=== PATIENT | male | born 1950 | race Caucasian/White ===

== ENCOUNTER → 2018-03-12 09:20 | Outpatient (CLI) | payer MEDICARE, SELFPAY ==
[2018-03-12 10:42] LABS: Hematocrit 44.5 % (41-53); Hemoglobin 15.1 g/dL (13.5-17.5); Mean Corpuscular HGB Conc 33.9 % (30-36); Mean Corpuscular Hemoglobin 32.9 PG (26-34); Mean Corpuscular Volume 97.2 fL (80-100); Platelet Count 136 X10^3/uL (150-400); Red Blood Cell Count 4.58 X10^6/uL (4.5-5.9); White Blood Cell Count 4.9 X10^3/uL (4.5-11.0)
[2018-03-12 11:32] LABS: TSH w/ Reflex to FT4 1.64 uIU/mL (0.47-4.68)
[2018-03-12 12:46] LABS: Chloride 104 mmol/L (98-107); HEMOLYSIS < 15 (0-50)
[2018-03-12 12:47] LABS: Alanine Aminotransferase 36 IU/L (21-72); Albumin 4.4 g/dL (3.5-5.0); Albumin Globulin Ratio 1.6 (1.0-2.8); Alkaline Phosphatase 91 U/L (38-126); Aspartate Aminotransferase 34 IU/L (17-59); BUN Creatinine Ratio 23.8 (6-22); Bilirubin Total 0.8 mg/dL (0.2-1.3); Blood Urea Nitrogen 19 mg/dL (9-20); Calcium 9.3 mg/dL (8.4-10.2); Carbon Dioxide 27 mmol/L (22-32); Cholesterol 175 mg/dL (140-199); Estimated Glomerular Filt Rate > 60.0 mL/min (>60); Globulin 2.7 g/dL (1.7-4.1); Glucose 84 mg/dL (80-110); HDL Cholesterol 75 mg/dL (40-60); LDL Cholesterol Calculated 90 mg/dL (<100); Potassium 5.2 mmol/L (3.4-5.1); Sodium 144 mmol/L (137-145); Total Protein 7.1 g/dL (6.3-8.2); Triglycerides 51 mg/dL (35-150)
[2018-03-12 13:17] LABS: Prostate Specific Antigen Scrn 1.26 ng/mL (0.1-4.0)
== END ==
PROVIDERS: PCP Family Medicine; Visit Provider Family Medicine
DX: E78.5 Hyperlipidemia, unspecified (principal); T50.905A Adverse effect of unspecified drugs, medicaments and biological substances, initial encounter
CPT/HCPCS: 36415; 80053; 80061; 84443; 85027; G0103

== ENCOUNTER → 2018-03-25 08:33 | Outpatient (CLI) | payer MEDICARE, SELFPAY ==
--- NOTE | 2018-03-25 08:37 | DI.ECHO.S_ITS ---
[facility] +---------+ : : [address] : [address] : : : : [id number] : : : : Phone: [phone]+ Echocardiogram Report + + :Name: ASHOK COREAS Study Date: 03/25/2018 Height: 70 in : :[facility] Exam Location: [facility] Weight: 165 lb : : Gender: Male BSA: 1.9 m2 : :: 1950 Age: 67 yrs BP: 150/85 mmHg: :Reason For Study: Conduction disorder : :Ordering Physician: Dr. Cunningham : :Trudy Performed By: Lien Page : + + Interpretation Summary Left ventricular systolic function is low normal with the ejection fraction visually estimated to be 55-60%. There are no focal wall motion abnormalities. Diastolic parameters suggest probable normal left ventricular diastolic function and normal filling pressures. The right ventricle is mildly dilated and right ventricular systolic function is at the lower limits of normal. The right ventricular systolic pressure is estimated to be at least 28 mmHg based on an estimated right atrial pressure of 3 mm Hg. Both atria are severely dilated. There is mild mitral regurgitation and mild to moderate tricuspid regurgitation. There is no other significant valvular heart disease. 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 Procedure: A two-dimensional transthoracic echocardiogram with color flow and Doppler was performed. The study quality was technically adequate. There is no prior echocardiogram noted for this patient. The patient was in normal sinus rhythm during the exam. The patient was in second degree heart block during the exam. The heart rate ranged between 34-46 bpm during the study. Left Ventricle: The left ventricle is normal in size. There is normal left ventricular wall thickness. Left ventricular systolic function is low normal. The ejection fraction is estimated to be 55-60%. There are no focal wall motion abnormalities. Diastolic parameters suggest probable normal left ventricular diastolic function and normal filling pressures. Right Ventricle: The right ventricle is mildly dilated. Right ventricular systolic function is at the lower limits of normal. Atria: Both atria are severely dilated. There is no Doppler evidence for an interatrial shunt. Mitral Valve: The mitral valve leaflets appear borderline thickened, but open well. There is a flat closure plane of the the mitral valve leaflets. There is no evidence of mitral valve prolapse. There is mild mitral regurgitation. Aortic Valve: The aortic valve is trileaflet. The aortic valve opens well. There is no aortic regurgitation. Tricuspid Valve: The tricuspid valve leaflets are thin and pliable. There is mild to moderate tricuspid regurgitation. The right ventricular systolic pressure is estimated to be at least 28 mmHg based on an estimated right atrial pressure of 3 mm Hg. Pulmonic Valve: The pulmonic valve is not well seen, but is grossly normal. There is trace pulmonic regurgitation. There is no other significant valvular heart disease. Great Vessels: The aortic root is normal size. The ascending aorta is normal in size. The pulmonary artery is not well visualized, but is probably normal size. The IVC is of normal diameter and collapses greater than 50% with a sniff. This suggests a low right atrial pressure of 3 mm Hg. Pericardium/ Pleura There is no pericardial effusion. There is no pleural effusion. MMode/2D Measurements & Calculations LVIDd: 5.1 cm LVOT diam: 2.2 cm LVIDs: 3.6 cm Ao root diam: 3.6 cm FS: 30.4 % asc Aorta Diam: 3.2 cm EPSS: 0.74 cm IVSd: 0.93 cm LVPWd: 0.89 cm LV sosa. diameter/BSA (cm/m^2): 2.7 LV sys. diameter/BSA (cm/m^2): 1.9 LA A2 area: 30.3 cm2 RA long axis: 6.7 cm LA A4 area: 31.3 cm2 RA area: 30.6 cm2 LA length (vol): 6.9 cm RA vol: 118.4 ml LA vol: 116.7 ml RA : 61.6 ml/m2 LA vol index: 60.7 ml/m2 IVC diam: 1.8 cm RVD1 (basal): 5.8 cm RVD2 (mid): 4.3 cm Doppler Measurements & Calculations Ao V2 max: 120.3 cm/sec LVOT Max Alex: 108.6 cm/sec Ao V2 mean: 86.0 cm/sec LV V1 max P.7 mmHg Ao max P.8 mmHg LV V1 VTI: 23.0 cm Ao mean P.2 mmHg ALEAH(I,D): 3.2 cm2 Ao V2 VTI: 27.9 cm ALEAH(V,D): 3.5 cm2 sev ratio: 0.83 ALEAH indexed to BSA (cm^2/m^2): 1.7 MV E max alex: 89.7 cm/sec TR max alex: 251.6 cm/sec MV A max alex: 63.3 cm/sec TR max P.3 mmHg MV E/A: 1.4 PA V2 max: 71.2 cm/sec Med Peak E' Alex: 13.2 cm/sec PA V2 mean: 47.0 cm/sec E/E' med: 6.8 PA mean P.99 mmHg Lat Peak E' Alex: 15.0 cm/sec PA Accel Time: 0.11 sec E/E' lat: 6.0 E/e' average: 6.4 MV dec time: 0.14 sec Reading Physician:TODD
--- NOTE | 2018-03-27 20:42 | DI.NM.S_ITS ---
DATE OF SERVICE: 03/25/2018 ORDERING PROVIDER: Octavio Yates MD PROCEDURE PERFORMED: Exercise treadmill stress and rest myocardial perfusion imaging with gating to assess ejection fraction and regional wall motion. INDICATIONS: The patient is a 67-year-old male with an abnormal ECG with an irregular rhythm. EXERCISE TREADMILL TESTING: EXERCISE TREADMILL TESTING: The patient was able to exercise for 9 minutes 2 seconds on a standard Antonio protocol suggesting good exercise capacity with an TOMMY of -15%. He had normal heart rate response with a resting heart rate of 65 bpm that increased to a maximum of 137 bpm (89% of his predicted maximum). He had a hypertensive blood pressure response to exercise with the resting blood pressure of 180/80 increasing to a maximum of 260/80. He had no chest discomfort. His resting ECG shows sinus rhythm with Wenckebach second-degree AV block but otherwise is normal. With exercise, there are no significant ST segment abnormalities and the Wenckebach block resolves. In early recovery, he develops PVCs with return of his Wenckebach second-degree AV block followed by brief ventricular bigeminy but no other complex arrhythmias. At 7 minutes 57 seconds of exercise, at heart rate of 131 bpm, 25.6 mCi a technetium-99 Myoview was injected and the patient was imaged 15 minutes later using a gated SPECT acquisition protocol. The patient returned the following day and was reinjected with an additional 25.9 mCi of technetium-99 Myoview and was imaged 40 minutes later, again using a gated SPECT acquisition protocol. FINDINGS: 1. Raw Data: There is fair myocardial tracer uptake. The lung/heart ratio is normal at 0.34 with a normal TID ratio of 0.79. Patient was unable to lay prone to assess for any diaphragmatic attenuation. 2. Quantitative Gated SPECT: Post stress ejection fraction is estimated at 64% without any focal wall motion abnormalities. Specifically, the inferolateral wall appears to have normal contractility. The resting ejection fraction is also estimated at 64% with mildly increased left ventricular volumes with a resting end-diastolic volume of 168 mL. 3. Myocardial Perfusion Imaging: Post stress supine images show a normal myocardial perfusion except for a very subtle defect in the mid anterior wall, consistent with the chest wall attenuation, and a very small, subtle defect in the mid-distal inferolateral wall. Both defects remain present on the resting images although the inferolateral defect is slightly less prominent, yet likely reflects diaphragmatic attenuation given its location and absence of wall motion abnormality CONCLUSION: 1. Probable normal myocardial perfusion study for ischemia. 2. Subtle fixed mid anteroseptal defect, likely reflecting chest wall attenuation, and a small subtle partially reversible mid inferolateral defect that likely reflects diaphragmatic attenuation but a very small volume of ischemia cannot be entirely excluded. 3. Normal left ventricular systolic function without focal wall motion abnormality although with moderately increased left ventricular volumes. 4. Good reduced exercise capacity without angina or ECG evidence of ischemia. Wenckebach 2nd degree AV block was present at rest but resolved with stress and returned in recovery with associated frequent PVCs, at times in a bigeminal pattern but no complex ventricular ectopy. The patient had a notable hypertensive to exercise. Toby Leonard - ALTHEA/kedar/ doc#: [id number]/job#: [id number] dd: 03/27/2018 12:28:00 dt: 03/27/2018 20:21:00 DICTATING MD/COPIES TO: Andrew Piedra MD; Octavio Yates MD COPIES MNE: VIK RYAN
== END ==
PROVIDERS: PCP Family Medicine; Visit Provider Family Medicine
DX: I08.1 Rheumatic disorders of both mitral and tricuspid valves (principal); I45.9 Conduction disorder, unspecified
CPT/HCPCS: 78452; 93016; 93017; 93018; 93306; A9502

== ENCOUNTER → 2018-03-26 11:51 | Outpatient (CLI) | payer MEDICARE, SELFPAY ==
--- NOTE | 2018-03-25 09:30 | PM.TREADMILL ---
Cardiac Stress Test Report Referral & Results Date Patient Seen: 03/25/18 Requesting provider: Octavio Yates Indication: Heart block Rest ECG: Resting ECG appears to show second-degree AV block with a variable AL interval , thus most likely Wenckebach block Procedure Note: Today following both written and verbal informed consent the patient was exercised according to a standard Antonio protocol patient went for a total of 9 min to seconds achieving a maximum heart rate of 137 maximum systolic blood pressure of 260. This is approximately 10.1 METS. Exercise was terminated at this point because of targets were met. Patient was also given Cardiolite through a previously started Hep-Lock IV by the nuclear medical technologist approximately 1 minute prior to the cessation of exercise. There are no ST segment changes Normal heart rate response somewhat hypertensive blood pressure response at peak Functional aerobic impairment rated-15% on the active scale so 115% of normal Frequent PVCs were noted as patient's heart rate was declining. Patient also had some irregularity with his AV conduction even at peak heart rates Impression: Probable second-degree AV block type 1 or Wenckebach block noted on resting ECG. There is a variable AL interval which makes that the most likely but does not follow the more traditional pattern. Does not appear to have third-degree heart block. No evidence of ischemia based on usual ECG criteria. Patient with excellent exercise capacity Perfusion imaging to be reported separately Please note: Actual ECG tracings can be found in the PACS system.
--- NOTE | 2018-03-25 09:33 | P.PCN_ITS ---
Cardiac Stress Test Report Referral & Results Date Patient Seen: 03/25/18 Requesting provider: Octavio Yates Indication: Heart block Rest ECG: Resting ECG appears to show second-degree AV block with a variable RI interval , thus most likely Wenckebach block Procedure Note: Today following both written and verbal informed consent the patient was exercised according to a standard Antonio protocol patient went for a total of 9 min to seconds achieving a maximum heart rate of 137 maximum systolic blood pressure of 260. This is approximately 10.1 METS. Exercise was terminated at this point because of targets were met. Patient was also given Cardiolite through a previously started Hep-Lock IV by the plastic technician approximately 1 minute prior to the cessation of exercise. There are no ST segment changes Normal heart rate response somewhat hypertensive blood pressure response at peak Functional aerobic impairment rated-15% on the active scale so 115% of normal Frequent PVCs were noted as patient's heart rate was declining. Patient also had some irregularity with his AV conduction even at peak heart rates Impression: Probable second-degree AV block type 1 or Wenckebach block noted on resting ECG. There is a variable RI interval which makes that the most likely but does not follow the more traditional pattern. Does not appear to have third -degree heart block. No evidence of ischemia based on usual ECG criteria. Patient with excellent exercise capacity Perfusion imaging to be reported separately Please note: Actual ECG tracings can be found in the PACS system.
--- NOTE | 2018-04-17 15:41 | PM.CARDMON.1 ---
Gameplay Programmer Report Referral & Results Date Patient Seen: 03/26/18 Indication: Conduction disorder Duration of monitoring (days): 7 Diary information: No patient diary events or triggered events were available Data: Minimum heart rate identified was 29 beats per minute at 05:43 on 03/29/2018 during a run of what appears to be 3rd degree heart block, or potentially second-degree heart block type 2. Minimum sinus heart rate was 64 beats per minute at 17:34 on 04/01/2018 Maximum overall heart rate was 120 beats per minute at 19:30 on 03/30/2018 No PACs and rare PVCs were identified Impression: Evidence of high-degree AV block potentially third-degree heart block identified as above. Patient's primary care provider and ordering provider Dr. Yates is aware of these findings and has referred patient to Cardiology. Please see his notes for details.
--- NOTE | 2018-04-17 15:45 | P.HOLT.S_ITS ---
Semiconductor Packages Leak Tester Report Referral & Results Date Patient Seen: 03/26/18 Indication: Conduction disorder Duration of monitoring (days): 7 Diary information: No patient diary events or triggered events were available Data: Minimum heart rate identified was 29 beats per minute at 05:43 on 2017 during a run of what appears to be 3rd degree heart block, or potentially second-degree heart block type 2. Minimum sinus heart rate was 64 beats per minute at 17:34 on 04/01/2018 Maximum overall heart rate was 120 beats per minute at 19:30 on 03/30/2018 No PACs and rare PVCs were identified Impression: Evidence of high-degree AV block potentially third-degree heart block identified as above. Patient's primary care provider and ordering provider Dr. Yates is aware of these findings and has referred patient to Cardiology. Please see his notes for details.
== END ==
PROVIDERS: PCP Family Medicine; Visit Provider Family Medicine
DX: I45.9 Conduction disorder, unspecified (principal)
CPT/HCPCS: 0296T; 0298T

== ENCOUNTER → 2020-06-08 16:26 | Outpatient (CLI) | payer MEDICARE, SELFPAY ==
[2020-06-08] MEDS: COVID-19 VACC #1, MRNA(MOD) 100 MCG/0.5 ML VIAL IM (16:34)
== END ==
PROVIDERS: PCP Family Medicine; Visit Provider Internal Medicine
DX: Z23 Encounter for immunization (principal)
CPT/HCPCS: 0011A; 91301

== ENCOUNTER → 2020-07-05 16:09 | Outpatient (CLI) | payer MEDICARE, SELFPAY ==
[2020-07-05] MEDS: COVID-19 VACC #2, MRNA(MOD) 100 MCG/0.5 ML VIAL IM (16:16)
== END ==
PROVIDERS: PCP Family Medicine; Visit Provider Internal Medicine
DX: Z23 Encounter for immunization (principal)
CPT/HCPCS: 0012A; 91301

== ENCOUNTER → 2021-02-05 08:42 | Outpatient (CLI) | payer MEDICARE, SELFPAY ==
[2021-02-05 14:06] LABS: COVID19 -Nasal RAPID Negative (Negative)
== END ==
PROVIDERS: PCP Family Medicine; Visit Provider Nurse Practitioner Family
DX: Z20.822 Contact with and (suspected) exposure to COVID-19 (principal); Z01.812 Encounter for preprocedural laboratory examination
CPT/HCPCS: 87635; C9803

== ENCOUNTER 2021-02-06 06:33 | Day surgery (SDC) | payer MEDICARE, SELFPAY ==
[2021-02-06] MEDS: PROPARACAINE 0.5% OPHTH SOL 2 DROPS EYE-OP (06:56)
[2021-02-06] MEDS: CATARACT EYE COMPOUND (10 DROPS/SYRINGE) 3 DROPS EYE-OP (07:03)
[2021-02-06 07:04] VITALS: BP 177/98; PULSE 64; RESP 20; TEMP 36.5; O2SAT 97; BMI 22.9
--- NOTE | 2021-02-06 07:29 | PM.PREOP ---
Pre-operative Note Interval Note History & Physical reviewed/Exam performed by Physician: Yes Changes to H&P: No
--- NOTE | 2021-02-06 07:30 | PM.OP.1 ---
Operative Date/Time/Diagnoses Pre-op diagnosis: Nuclear Cataract Left eye Post-op diagnosis: same Procedure & Clinicians Same procedure as scheduled: Yes Surgeon: Refugio Carter Anesthesia Type: MAC +/- and Sedation Operative Notes Procedure in detail: Patient brought to the operating suite. He was positioned in trendelenberg because of ankylosing spondylitis neck position. Tetracaine drops placed in the left eye. Marking instrument was used to krystian the vertical and horizontal meridians. Patient was prepped and draped in sterile manner. Wire lid speculum was placed in the eye. Marking instrument was used to krystian the 150 degree meridian. Betadine drops were placed on the eye. This was irrigated. Lidocaine jelly was placed on the eye. A paracentesis port was created with a side-port blade. 0.1 mL 1% preservative free lidocaine was injected into the anterior chamber. The anterior chamber was deepened with viscoelastic. 2.6 mm keratome was used to create a temporal clear corneal incision. Cystotome and Utrata forceps were used to create continuous tear capsulorrhexis. Balanced salt solution was used to hydro dissect the nucleus. The phacoemulsification handpiece was inserted and the nucleus was removed using the stop and chop technique. The irrigation aspiration handpiece was inserted and the remaining cortex was removed. Anterior chamber was deepened with viscoelastic. An Matos [id number] intraocular lens with a power of 19.5 was injected into the capsular bag. Irrigation aspiration handpiece was inserted and the remaining viscoelastic was removed. The lens was rotated to the 150 degree meridian. Incision was hydrated with balanced salt solution and found to be leak free with pressure with Weck-Guadalupe sponges. 0.1 mL Vigamox injected anterior chamber. 0.3 mL Kenalog 10 mg was injected subconjunctivally. Lid speculum was removed. The patient left the operating room in excellent condition. Complications: none Post-operative Condition: stable Disposition: same day surgery
[2021-02-06] MEDS: BALANCED SALT IRRIG SOLN NO.2 500 ML, EPINEPHrine 1 MG IRR (07:51)
[2021-02-06] MEDS: LIDOCAINE 2% (GLYDO) 6 ML GEL TOP (07:51)
[2021-02-06] MEDS: TRIAMCINOLONE 50 MG/5 ML VIAL INJ (07:52)
[2021-02-06] MEDS: PHENYLEPHRINE/LIDOCAINE VIAL (OR) 0.2 ML EYE-OP (07:54)
[2021-02-06] MEDS: MOXIFLOXACIN INJ 4 MG/0.8 ML VIAL 0.5 MG EYE-OP (07:55)
[2021-02-06] MEDS: TETRACAINE 0.5% OPHTH DROPS 4 ML 2 DROPS EYE-OP (07:56)
[2021-02-06] MEDS: HYALURONATE SODIUM 30 MG-10 MG/ML SYRINGES 1 BOX INTRAOCULA (07:56)
[2021-02-06 08:10] VITALS: BP 142/84; PULSE 61; RESP 16; TEMP 36.6; O2SAT 98
== END 2021-02-06 08:24 | disposition home or self-care (01) ==
PROVIDERS: PCP Family Medicine; Referring Provider Ophthalmology; Visit Provider Ophthalmology
PROC: (CPT 66984; principal; 2021-02-06 07:45)
DX: H25.12 Age-related nuclear cataract, left eye (principal); Z95.0 Presence of cardiac pacemaker
CPT/HCPCS: 66984; J0171; J2250; J3301; V2787

== ENCOUNTER → 2021-02-19 10:11 | Outpatient (CLI) | payer MEDICARE, SELFPAY ==
[2021-02-19 12:03] LABS: COVID19 -Nasal RAPID Negative (Negative)
== END ==
PROVIDERS: PCP Family Medicine; Visit Provider Nurse Practitioner Family
DX: Z20.822 Contact with and (suspected) exposure to COVID-19 (principal); Z01.812 Encounter for preprocedural laboratory examination
CPT/HCPCS: 87635; C9803

== ENCOUNTER 2021-02-20 07:35 | Day surgery (SDC) | payer MEDICARE, SELFPAY ==
[2021-02-20] MEDS: PROPARACAINE 0.5% OPHTH SOL 2 DROPS EYE-OP (08:10)
[2021-02-20 08:12] VITALS: BP 174/82; PULSE 61; RESP 98; TEMP 36.3; BMI 22.3
[2021-02-20] MEDS: CATARACT EYE COMPOUND (10 DROPS/SYRINGE) 3 DROPS EYE-OP (08:18)
--- NOTE | 2021-02-20 09:05 | PM.PREOP ---
Pre-operative Note Interval Note History & Physical reviewed/Exam performed by Physician: Yes Changes to H&P: No
--- NOTE | 2021-02-20 09:06 | PM.OP.1 ---
Operative Date/Time/Diagnoses Pre-op diagnosis: Nuclear cataract right eye Procedure & Clinicians Procedure: Cataract Surgery Same procedure as scheduled: Yes Surgeon: Refugio Carter Anesthesia Type: MAC +/- and Sedation Operative Notes Procedure in detail: Patient brought to the operating suite. Tetracaine drops placed in the right eye. The marking instrument was used to krystian the vertical and horizontal meridians. Patient was prepped and draped in sterile manner. Wire lid speculum was placed in the eye. The marking instrument was used to krystian the 40 degree meridian. Betadine drops were placed on the eye. This was irrigated. Lidocaine jelly was placed on the eye. A paracentesis port was created with a side-port blade. 0.1 mL 1% preservative free lidocaine was injected into the anterior chamber. The anterior chamber was deepened with viscoelastic. 2.6 mm keratome was used to create a temporal clear corneal incision. Cystotome and Utrata forceps were used to create continuous tear capsulorrhexis. Balanced salt solution was used to hydro dissect the nucleus. The phacoemulsification handpiece was inserted and the nucleus was removed using the stop and chop technique. The irrigation aspiration handpiece was inserted and the remaining cortex was removed. Anterior chamber was deepened with viscoelastic. An Matos [id number] intraocular lens with a power of 20.0 was injected into the capsular bag. Irrigation aspiration handpiece was inserted and the remaining viscoelastic was removed. The lens was rotated to the 40. Incision was hydrated with balanced salt solution and found to be leak free with pressure with Weck-Guadalupe sponges. 0.1 mL Vigamox injected anterior chamber. 0.3 mL Kenalog 10 mg was injected subconjunctivally. Lid speculum was removed. The patient left the operating room in excellent condition. Complications: none Post-operative Condition: stable Disposition: same day surgery
[2021-02-20] MEDS: HYALURONATE SODIUM 30 MG-10 MG/ML SYRINGES 1 BOX INTRAOCULA (09:25)
[2021-02-20] MEDS: MOXIFLOXACIN INJ 4 MG/0.8 ML VIAL 0.5 MG EYE-OP (09:25)
[2021-02-20] MEDS: LIDOCAINE 2% (GLYDO) 6 ML GEL TOP (09:25)
[2021-02-20] MEDS: PHENYLEPHRINE/LIDOCAINE VIAL (OR) 0.2 ML EYE-OP (09:25)
[2021-02-20] MEDS: TETRACAINE 0.5% OPHTH DROPS 4 ML 2 DROPS EYE-OP (09:26)
[2021-02-20] MEDS: TRIAMCINOLONE 50 MG/5 ML VIAL INJ (09:26)
[2021-02-20] MEDS: BALANCED SALT IRRIG SOLN NO.2 500 ML, EPINEPHrine 1 MG IRR (09:26)
[2021-02-20 09:40] VITALS: BP 148/89; PULSE 59; RESP 16; TEMP 36.6; O2SAT 100
== END 2021-02-20 10:05 | disposition home or self-care (01) ==
PROVIDERS: PCP Family Medicine; Referring Provider Ophthalmology; Visit Provider Ophthalmology
PROC: (CPT 66984; principal; 2021-02-20 09:15)
DX: H25.11 Age-related nuclear cataract, right eye (principal); Z95.0 Presence of cardiac pacemaker
CPT/HCPCS: 66984; J0171; J2250; J3301; V2787

== ENCOUNTER 2021-12-17 14:21 | Emergency (ER) | payer MEDICARE, SELFPAY ==
[2021-12-17] VITALS (11 sets, daily range): BP systolic 148–167; BP diastolic 70–76; PULSE 66–81; RESP 22–30; TEMP 36.5; O2SAT 99–100; BMI 23.0
[2021-12-17 15:00] LABS: Add Manual Diff / Slide Review NO; Alanine Aminotransferase 24 IU/L (<50); Albumin 4.3 g/dL (3.5-5.0); Albumin Globulin Ratio 1.4 (1.0-2.8); Alkaline Phosphatase 85 U/L (38-126); Aspartate Aminotransferase 47 IU/L (17-59); BUN Creatinine Ratio 35.2 (6-22); Basophils Absolute Auto 0 /uL (0-100); Basophils Percent Auto 0.1 % (0-2); Bilirubin Total 1.2 mg/dL (0.2-1.3); Blood Urea Nitrogen 43 mg/dL (9-20); Calcium 9.4 mg/dL (8.4-10.2); Carbon Dioxide 26 mmol/L (22-32); Chloride 100 mmol/L (98-107); Eosinophils Absolute Auto 0 /uL (0-450); Estimated Glomerular Filt Rate > 60 mL/min (>60); Glucose 113 mg/dL (80-110); HEMOLYSIS < 15 (0-50); Hematocrit 38.6 % (41-53); Hemoglobin 13.4 g/dL (13.5-17.5); Lipase 70 U/L (23-300); Lymphocytes Absolute Auto 700 /uL (1100-4500); Lymphocytes Percent Auto 6.5 % (25-40); Magnesium 1.9 mg/dL (1.6-2.3); Mean Corpuscular HGB Conc 34.8 % (30-36); Mean Corpuscular Hemoglobin 32.6 PG (26-34); Mean Corpuscular Volume 93.8 fL (80-100); Monocytes Absolute Auto 800 /uL (0-900); Monocytes Percent Auto 7.4 % (3-14); Neutrophils Absolute Auto 9800 /uL (1500-7000); Platelet Count 139 X10^3/uL (150-400); Potassium 4.1 mmol/L (3.4-5.1); Red Blood Cell Count 4.11 X10^6/uL (4.5-5.9); Red Cell Distribution Width 12.9 % (11.6-14.8); Sodium 137 mmol/L (137-145); Total Protein 7.3 g/dL (6.3-8.2); White Blood Cell Count 11.4 X10^3/uL (4.5-11.0)
[2021-12-17] MEDS: SODIUM CHLORIDE 0.9% 1,000 ML 1000 ML IV ×2 (17:13→17:45)
[2021-12-17 17:23] LABS: Appearance Urine UA CLEAR; Bilirubin Urine UA NEGATIVE (NEGATIVE); Color Urine UA YELLOW; Glucose Urine UA NEGATIVE (Negative); Ketones Urine UA TRACE (NEGATIVE); Leukocyte Esterase Urine UA NEGATIVE (NEGATIVE); Nitrite Urine UA NEGATIVE (Negative); Occult Blood Urine UA TRACE-LYSED (Negative); Protein Urine UA TRACE (Negative); Specific Gravity Urine UA 1.025 (1.000-1.035); Urobilinogen Urine UA 0.2 E.U./dL (0.2)
--- NOTE | 2021-12-17 17:26 | ED_ITS ---
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 Patient states that he has a history of some chronic back pain states that yesterday he went for pretty significant height which she has not done so far this year and started having increasing pain particularly on the drive back home which was quite bumpy but no falls or other trauma appreciated by the patient and had worsening pain overnight with increasing pain and numbness down his left leg and presents today. Patient states he has not urinated in 12-24 hours, he does not have the sensation that he needs to urinate. No known fecal incontinence. No fevers or chills. No chest pain shortness of breath. Patient denies any nausea or vomiting. He has never had weakness like this in the past. He denies back surgeries. He states he is never been on any rheumatologic medications for his ankylosing spondylitis and only takes ibuprofen for that. On carvedilol for his hypertension. Has aspirin in his EMR but states no anticoagulants. Patient denies other surgeries besides pacemaker and denies any cardiac stents or other cardiac interventions. No known drug allergies. Former tobacco user, occasional alcohol, no illicit. Related Data Home Medications Medication Instructions Recorded Confirmed aspirin 325 mg tablet 325 mg PO DAILY PRN Pain (Scale 01/26/19 02/20/21 Score 1-3) carvedilol 6.5 mg PO BID 01/26/19 Allergies Allergy/AdvReac Type Severity Reaction Status Date / Time No Known Drug Allergies Allergy Verified 02/20/21 08:07 Review of Systems Review of Systems ROS Unobtainable: All systems reviewed & are unremarkable except as noted in HPI and below Patient History Medical History Ankylosing spondylitis (~1975) Essential hypertension History of uveitis Presence of cardiac pacemaker Seborrheic keratosis Skin cancer Surgical History Anesthesia Basal cell carcinoma Family History Brother Age: 62 Overweight Father No problems noted. Grandfather No problems noted. Mother No problems noted. Grandfather No problems noted. Sister No problems noted. Social History marital status: household members: spouse Smoking Status: Former smoker alcohol intake: current substance use type: does not use Smoking Status: Former smoker alcohol intake frequency: holidays/special occasions only Substance Use Type: does not use Exam Narrative Exam Narrative: GENERAL: Alert and oriented x three, male in moderate distress. HEENT: Head normocephalic, atraumatic, EOMI, pupils reactive, face symmetric, moist mucous membranes NECK: Supple, full range of motion CARDIOVASCULAR: Bradycardic but Regular rate and rhythm without murmurs, rubs or gallops. RESPIRATORY: Breath sounds equal bilaterally, no wheezes rales or rhonchi. ABDOMEN: Soft, nontender. Normoactive bowel sounds all 4 quadrants. No guarding or rebound, rigidity, no mass : No CVA tenderness BACK: No cervical, thoracic or lumbar vertebral point tenderness. Patient has significantly decreased range of motion of bilateral lower extremities, patient is not able to dorsiflex or plantar flex and has really no movement of his lower extremities.. Patient's gait is a unable to be tested. Rectal exam is decreas ed tone with no sensation on rectal exam. Patient does have saddle anesthesia, and did not feel Delgado catheter being placed. Patient has sensation to light touch on the right in his lower extremity but not on the left, on examination patient is sensation creases to just above the umbilicus has decreased sensation proximally 1 dermatomal higher on the left than the right. EXTREMITIES: no clubbing or edema. Neurovascularly intact. Cap refill less than 2 seconds bilateral lower extremities. NEUROLOGICAL: Cranial nerves II through XII grossly intact. Moving all extremities SKIN: Warm, dry, no petechiae, no rashes or lesions. Initial Vital Signs Initial Vital Signs: Vital Signs Temperature 97.7 F 12/17/21 14:23 Pulse Rate 69 12/17/21 14:23 Respiratory Rate 24 12/17/21 14:23 Blood Pressure 148/70 H 12/17/21 14:23 Pulse Oximetry 99 12/17/21 14:23 Oxygen Delivery Method 12/17/21 14:23 Course Orders Ordered: ED Orders 12/17/21 14:40 Complete Blood Count AUTO DIFF Stat Comprehensive Metabolic Panel Stat Lipase Stat MAG [Magnesium] Stat 12/17/21 14:43 CRP [C-Reactive Protein Quant] Stat ESR [Erythrocyte Sedimentation Rate] Stat PTT [Partial Thromboplastin Time] Stat Prothrombin Time INR Stat 12/17/21 16:51 EKG-12 Lead Stat 12/17/21 16:55 Urinalysis and Microscopic Stat 12/17/21 17:28 CT lumbar spine w con Stat 12/17/21 18:25 COVID19 -Nasal RAPID/Pre-Proc Stat 12/17/21 18:44 CT thoracic spine wo con Stat Discontinued Medications Dexamethasone (Dexamethasone 10 Mg/Ml Vial) 10 mg IV NOW ONE Stop: 12/17/21 18:07 Last Admin: 12/17/21 18:25 Dose: 10 mg Documented By: TED Hydromorphone HCl (Hydromorphone 1 Mg Inj) 1 mg IV NOW ONE Stop: 12/17/21 17:59 Last Admin: 12/17/21 18:25 Dose: 1 mg Documented By: ADK Hydromorphone HCl (Hydromorphone 1 Mg Inj) 1 mg IV Q1H PRN PRN Reason: pain Sodium Chloride (Normal Saline 0.9%) 1,000 mls @ 1,000 mls/hr IV BOLUS ONE Stop: 12/17/21 18:09 Last Infusion: 12/17/21 17:35 Dose: 0 mls/hr Documented By: Admin: 12/17/21 17:13 Dose: 1,000 mls/hr Documented By: CTS Sodium Chloride (Normal Saline 0.9%) 1,000 mls @ 1,000 mls/hr IV BOLUS ONE Stop: 12/17/21 18:44 Last Infusion: 12/17/21 19:00 Dose: 0 mls/hr Documented By: Admin: 12/17/21 17:45 Dose: 1,000 mls/hr Documented By: CTS Morphine Sulfate (Morphine 4 Mg/Ml Inj) 4 mg IV NOW ONE Stop: 12/17/21 17:26 Last Admin: 12/17/21 17:35 Dose: 4 mg Documented By: CTS Consultations Consultation #1: Dr. Gilbert, local orthopedic surgery call to see if Dr. Salter our local spinal surgeon is available. [place] is [place] out of the [place]. Consultation #2: Dr. Velasquez at [facility]. Accepts for transfer, spinal surgery Dr. Reddy has reviewed initial images, asked if we have capability for myelogram which we do not. They accept for ED to ED transfer. Vital Signs Vital signs: Vital Signs - 8 hr 12/17/21 14:23 12/17/21 16:28 12/17/21 16:31 Temperature 97.7 F Pulse Rate 69 68 Respiratory Rate 24 22 Blood Pressure 148/70 H 149/75 H Pulse Oximetry 99 100 Oxygen Delivery Method Room Air 12/17/21 16:47 12/17/21 16:47 12/17/21 17:00 Temperature Pulse Rate 66 Respiratory Rate 28 H Blood Pressure 167/75 H 159/76 H Pulse Oximetry 100 Oxygen Delivery Method 12/17/21 17:00 12/17/21 17:30 12/17/21 18:00 Temperature Pulse Rate 67 73 81 Respiratory Rate 25 H 30 H Blood Pressure Pulse Oximetry 100 100 100 Oxygen Delivery Method 12/17/21 18:06 12/17/21 18:06 12/17/21 18:30 Temperature Pulse Rate 76 79 Respiratory Rate Blood Pressure 157/72 H Pulse Oximetry 99 100 Oxygen Delivery Method 12/17/21 19:10 12/17/21 19:15 12/17/21 19:15 Temperature Pulse Rate 74 72 Respiratory Rate Blood Pressure 157/70 H Pulse Oximetry 99 Oxygen Delivery Method MDM - Back Pain/Injury Lab Data Result diagrams: 12/17/21 14:40 12/17/21 14:40 Labs: Lab Results 12/17/21 12/17/21 12/17/21 Range/Units 14:40 14:40 14:40 WBC 11.4 H (4.5-11.0) X10^3/uL RBC 4.11 L (4.5-5.9) X10^6/uL Hgb 13.4 L (13.5-17.5) g/dL Hct 38.6 L (41-53) % MCV 93.8 (80-100) fL MCH 32.6 (26-34) PG MCHC 34.8 (30-36) % RDW 12.9 (11.6-14.8) % Plt Count 139 L (150-400) X10^3/uL Neut % (Auto) 86.0 H (50-75) % Lymph % (Auto) 6.5 L (25-40) % Falls % (Auto) 7.4 (3-14) % Eos % (Auto) 0.0 L (2-4) % Baso % (Auto) 0.1 (0-2) % Neut # (Auto) 9800 H (5216-1030) /uL Lymph # (Auto) 700 L (8280-4843) /uL Falls # (Auto) 800 (0-900) /uL Eos # (Auto) 0 (0-450) /uL Baso # (Auto) 0 (0-100) /uL ESR (0-15) MM/HR PT (10.1-12.7) SECONDS INR (0.9-1.3) APTT (26.4-36.2) SECONDS Sodium 137 (137-145) mmol/L Potassium 4.1 (3.4-5.1) mmol/L Chloride 100 (98-107) mmol/L Carbon Dioxide 26 (22-32) mmol/L BUN 43 H (9-20) mg/dL Creatinine 1.22 (0.66-1.25) mg/dL Estimated GFR > 60 (>60) mL/min BUN/Creatinine Ratio 35.2 H (6-22) Glucose 113 H (80-110) mg/dL Calcium 9.4 (8.4-10.2) mg/dL Magnesium 1.9 (1.6-2.3) mg/dL Total Bilirubin 1.2 (0.2-1.3) mg/dL AST 47 (17-59) IU/L ALT 24 (<50) IU/L Alkaline Phosphatase 85 (38-126) U/L C-Reactive Protein (<1.0) mg/dL Total Protein 7.3 (6.3-8.2) g/dL Albumin 4.3 (3.5-5.0) g/dL Globulin 3.0 (1.7-4.1) g/dL Albumin/Globulin Ratio 1.4 (1.0-2.8) Lipase 70 (23-300) U/L Urine Color Urine Appearance Urine pH (4.5-8.0) Ur Specific [place] (1.000-1.035) Urine Protein (Negative) Urine Glucose (UA) (Negative) g/dL Urine Ketones (NEGATIVE) Urine Occult Blood (Negative) Urine Nitrate (Negative) Urine Bilirubin (NEGATIVE) Urine Urobilinogen (0.2) E.U./dL Ur Leukocyte Esterase (NEGATIVE) Urine RBC (0-5/HPF) Urine WBC (0-5/HPF) Amorphous Sediment Urine Bacteria (None) Urine Mucus (Negative) Ur Culture Indicated? SARS-CoV-2 (PCR) (Negative) 12/17/21 12/17/21 12/17/21 Range/Units 14:43 14:43 14:43 WBC (4.5-11.0) X10^3/uL RBC (4.5-5.9) X10^6/uL Hgb (13.5-17.5) g/dL Hct (41-53) % MCV (80-100) fL MCH (26-34) PG MCHC (30-36) % RDW (11.6-14.8) % Plt Count (150-400) X10^3/uL Neut % (Auto) (50-75) % Lymph % (Auto) (25-40) % Falls % (Auto) (3-14) % Eos % (Auto) (2-4) % Baso % (Auto) (0-2) % Neut # (Auto) (3167-5102) /uL Lymph # (Auto) (9906-4628) /uL Falls # (Auto) (0-900) /uL Eos # (Auto) (0-450) /uL Baso # (Auto) (0-100) /uL ESR 12 (0-15) MM/HR PT 12.7 (10.1-12.7) SECONDS INR 1.1 (0.9-1.3) APTT 30 (26.4-36.2) SECONDS Sodium (137-145) mmol/L Potassium (3.4-5.1) mmol/L Chloride (98-107) mmol/L Carbon Dioxide (22-32) mmol/L BUN (9-20) mg/dL Creatinine (0.66-1.25) mg/dL Estimated GFR (>60) mL/min BUN/Creatinine Ratio (6-22) Glucose (80-110) mg/dL Calcium (8.4-10.2) mg/dL Magnesium (1.6-2.3) mg/dL Total Bilirubin (0.2-1.3) mg/dL AST (17-59) IU/L ALT (<50) IU/L Alkaline Phosphatase (38-126) U/L C-Reactive Protein 2.1 H (<1.0) mg/dL Total Protein (6.3-8.2) g/dL Albumin (3.5-5.0) g/dL Globulin (1.7-4.1) g/dL Albumin/Globulin Ratio (1.0-2.8) Lipase (23-300) U/L Urine Color Urine Appearance Urine pH (4.5-8.0) Ur Specific [place] (1.000-1.035) Urine Protein (Negative) Urine Glucose (UA) (Negative) g/dL Urine Ketones (NEGATIVE) Urine Occult Blood (Negative) Urine Nitrate (Negative) Urine Bilirubin (NEGATIVE) Urine Urobilinogen (0.2) E.U./dL Ur Leukocyte Esterase (NEGATIVE) Urine RBC (0-5/HPF) Urine WBC (0-5/HPF) Amorphous Sediment Urine Bacteria (None) Urine Mucus (Negative) Ur Culture Indicated? SARS-CoV-2 (PCR) (Negative) 12/17/21 12/17/21 Range/Units 16:55 18:25 WBC (4.5-11.0) X10^3/uL RBC (4.5-5.9) X10^6/uL Hgb (13.5-17.5) g/dL Hct (41-53) % MCV (80-100) fL MCH (26-34) PG MCHC (30-36) % RDW (11.6-14.8) % Plt Count (150-400) X10^3/uL Neut % (Auto) (50-75) % Lymph % (Auto) (25-40) % Falls % (Auto) (3-14) % Eos % (Auto) (2-4) % Baso % (Auto) (0-2) % Neut # (Auto) (0948-4520) /uL Lymph # (Auto) (1649-3554) /uL Falls # (Auto) (0-900) /uL Eos # (Auto) (0-450) /uL Baso # (Auto) (0-100) /uL ESR (0-15) MM/HR PT (10.1-12.7) SECONDS INR (0.9-1.3) APTT (26.4-36.2) SECONDS Sodium (137-145) mmol/L Potassium (3.4-5.1) mmol/L Chloride (98-107) mmol/L Carbon Dioxide (22-32) mmol/L BUN (9-20) mg/dL Creatinine (0.66-1.25) mg/dL Estimated GFR (>60) mL/min BUN/Creatinine Ratio (6-22) Glucose (80-110) mg/dL Calcium (8.4-10.2) mg/dL Magnesium (1.6-2.3) mg/dL Total Bilirubin (0.2-1.3) mg/dL AST (17-59) IU/L ALT (<50) IU/L Alkaline Phosphatase (38-126) U/L C-Reactive Protein (<1.0) mg/dL Total Protein (6.3-8.2) g/dL Albumin (3.5-5.0) g/dL Globulin (1.7-4.1) g/dL Albumin/Globulin Ratio (1.0-2.8) Lipase (23-300) U/L Urine Color Yellow Urine Appearance Clear Urine pH 5.0 (4.5-8.0) Ur Specific [place] 1.025 (1.000-1.035) Urine Protein Trace H (Negative) Urine Glucose (UA) Negative (Negative) g/dL Urine Ketones Trace H (NEGATIVE) Urine Occult Blood Trace-lysed (Negative) Urine Nitrate Negative (Negative) Urine Bilirubin Negative (NEGATIVE) Urine Urobilinogen 0.2 (0.2) E.U./dL Ur Leukocyte Esterase Negative (NEGATIVE) Urine RBC 0-1/hpf (0-5/HPF) Urine WBC None seen (0-5/HPF) Amorphous Sediment 1+ Urine Bacteria None seen (None) Urine Mucus 1+ H (Negative) Ur Culture Indicated? Cult not indicated SARS-CoV-2 (PCR) Negative (Negative) Point of Care Testing Glucose POC [address]: Radiologist's Impression: [address] [address] [address] Scan Report Signed Patient: Toby Leonard MR#: [id number] : 1950 Acct:[id number] Age/Sex: 71 / M Date of Service: 12/17/21 Loc: ED Accession Number: [id number] ?? Procedure: CT lumbar spine w con Ordering Provider: Judy Cornelius D.O. PROCEDURE:? CT LUMBAR SPINE W CON ? INDICATIONS:? back pain, leg weak, urine retention ? TECHNIQUE:? After the administration of intravenous Isovue contrast, 3 mm thick sections acquired through the levels of interest.? Sagittal and coronal reformats were then constructed.? For radiation dose reduction, the following was used:? automated exposure control.? ? COMPARISON:? None. ? FINDINGS:? Findings of diffuse ankylosing spondylitis in the lower thoracic spine, the lumbar spine, and sacroiliac joints.? Vertebral body height and alignment are normal.? Decreased trabeculation in the lumbar vertebral bodies consistent with stress shielding as a function of the ankylosis.? There is no spinal canal stenosis or significant neural foraminal narrowing identified.? No significant degenerative changes of the fac ets, endplates, or intervertebral discs.? Spiculated bone island in the superior S3 vertebral body.? No suspicious lytic or blastic osseous lesion otherwise.? No pathologic enhancement identified. ? IMPRESSION:? ? Findings of ankylosing spondylitis.? Pathologic enhancement, spinal canal stenosis, or neural foraminal stenosis. ? ? Trabeculated urinary bladder with shaggy urinary bladder mucosal hyp erenhancement and adjacent fat stranding.? Findings suggest cystitis.? There are few diverticula of the urinary bladder also suspected.? Correlate for neurogenic bladder or chronic outlet obstruction.? ? Dictated by: Octavio Sutton M.D. on 12/17/2021 at 17:58 ? ? Approved by: Octavio Sutton M.D. on 12/17/2021 at 18:01?? Tspine CT: Radiologist's Impression: Close Thoracic Spine CT (Signed) Octavio Sutton - 12/17/[address] (Signed) Octavio Sutton - 12/17/21 Radiology Report (Cancelled) Andrew Piedra - 03/27/18 Myocardial Perfusion Scan Nuc Med (Signed) Andrew Piedra - 03/25/18 Echocardiogram Ultrasound (Signed) Andrew Piedra - 03/25/18 EKG Rpt. 03/11/18 Launch?[address] [address] [address] Scan Report Signed Patient: Toby Leonard MR#: [id number] : 1950 Acct:[id number] Age/Sex: 71 / M Date of Service: 12/17/21 Loc: ED Accession Number: [id number] ?? Procedure: CT thoracic spine wo con Ordering Provider: Judy Cornelius D.O. PROCEDURE:? CT THORACIC SPINE WO CON ? INDICATIONS:? back pain, weakness, urinary retention ? TECHNIQUE:? Noncontrast 3 mm thick sections acquired through the region of interest in the thoracic spine.? Sagittal and coronal reformats were then constructed.? For radiation dose reduction, the following was used:? automated exposure control.? ? COMPARISON:? [facility], CR, XR CHEST 2 VIEWS, 07/08/2018, 7:18.? [facility], CR, XR CHEST 1 VIEW, 07/07/2018, 15:38.? [facility], CT, CT LUMBAR SPINE W CON, 12/17/2021, 17:33. ? FINDINGS:? Diffuse thoracolumbar ankylosis consistent with ankylosing spondylitis.? No fracture or malalignment.? No suspicious lytic or blastic osseous lesion.? There is what appears to be an extradural mass in the upper thoracic cord causing severe spinal canal stenosis.? This measures approximately 1.3 x 1.6 cm maximum axial dimension and 5.1 cm craniocaudal. ?The mass may extend out of the adjacent left-sided neural foramina, although this is not entirely definitive.? Scar-like opacity in the left lung apex was not definitely present on comparison chest radiographs.? No acute airspace opacity otherwise.? Cardiomegaly with small pericardial effusion and pacemaker leads noted. ? IMPRESSION:? ? 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 Neurosurgery consultation recommended. ? ? Dictated by: Octavio Sutton M.D. on 12/17/2021 at 19:12 ? ? Approved by: Octavio Sutton M.D. on 12/17/2021 at 19:15?? MDM Narrative Medical decision making narrative: This is a 71-year-old male with history of ankylosing spondylitis, patient had no known specific trauma but height extensively and then has had increasing pain on the drive home and overnight in today with increasing weakness, no urinary retention loss of rectal tone and decreased sensation that extends above the umbilicus. Patient has had sciatica type symptoms in the past but nothing to t his level. Initial L-spine CT does not show any acute changes, we were unable to obtain MRI initially as patient has a pacemaker and we do not have capabilities here for that. CT thoracic spine was added on after realizing patient's level of paresthesias is a little bit higher. Case was discussed with Neurosurgery at [facility] they are unsure if they have appropriate MRI capability at our checking during the interim [facility] re-contacted and there spinal surgeon reviewed patient findings to this point, asked if we have myelogram capabilities and asks for ED to ED transfer with Dr. Velasquez from [facility] ED being the accepting physician. This was all discussed with patient and his , for timeliness air lift was contacted for transfer. Patient did receive a dose of dexamethasone IV, pain management, BP meds held. Thoracic spine CT show an extradural mass causing impingement and severe spinal cord stenosis measuring 1.3 x 1.6 cm and 5.1 cm cranial caudad extending to the adjacent left side neural foramina, these results were relayed to [facility] and images were pushed prior to airlift arriving. Critical Care Time Critical Care Time Attestation: The high probability of a clinically significant, sudden or life threatening deterioration of the [neurologic] system(s) required my full and direct attention, intervention and personal management. The aggregate critical care time was [] minutes. This time is in addition to time spent performing reported procedures but includes the following: [x] Data Review and interpretation [x] Patient assessment and monitoring of vital signs [x] Documentation [x] Medication orders and management Discharge Plan Departure Patient Disposition: [facility] Clinical Impression: Acute paraplegia, Ankylosing spondylitis, Spinal cord mass Prescriptions: No Action aspirin 325 mg tablet 325 mg PO DAILY PRN (Reason: Pain (Scale Score 1-3)) carvedilol 6.5 mg PO BID Rx Instructions: 1 tab PO BID Referrals: Octavio Yates MD [Primary Care Provider] -
--- NOTE | 2021-12-17 17:28 | DI.CT.S_ITS ---
PROCEDURE: CT LUMBAR SPINE W CON INDICATIONS: back pain, leg weak, urine retention TECHNIQUE: After the administration of intravenous Isovue contrast, 3 mm thick sections acquired through the levels of interest. Sagittal and coronal reformats were then constructed. For radiation dose reduction, the following was used: automated exposure control. COMPARISON: None. FINDINGS: Findings of diffuse ankylosing spondylitis in the lower thoracic spine, the lumbar spine, and sacroiliac joints. Vertebral body height and alignment are normal. Decreased trabeculation in the lumbar vertebral bodies consistent with stress shielding as a function of the ankylosis. There is no spinal canal stenosis or significant neural foraminal narrowing identified. No significant degenerative changes of the facets, endplates, or intervertebral discs. Spiculated bone island in the superior S3 vertebral body. No suspicious lytic or blastic osseous lesion otherwise. No pathologic enhancement identified. IMPRESSION: Findings of ankylosing spondylitis. Pathologic enhancement, spinal canal stenosis, or neural foraminal stenosis. Trabeculated urinary bladder with shaggy urinary bladder mucosal hyperenhancement and adjacent fat stranding. Findings suggest cystitis. There are few diverticula of the urinary bladder also suspected. Correlate for neurogenic bladder or chronic outlet obstruction. Dictated by: Octavio Sutton M.D. on 12/17/2021 at 17:58 Approved by: Octavio Sutton M.D. on 12/17/2021 at 18:01
[2021-12-17 17:31] LABS: Amorphous Sediment Urine 1+; Bacteria Urine None Seen; Culture Indicated Urine Cult Not Indicated; Mucus Urine 1+ (Negative); RBC Urine 0-1/HPF (0-5/HPF); WBC Urine None Seen (0-5/HPF)
[2021-12-17] MEDS: MORPHINE 4 MG/ML INJ IV (17:35)
[2021-12-17 18:21] LABS: INR 1.1 (0.9-1.3); Prothrombin Time 12.7 SECONDS (10.1-12.7)
[2021-12-17 18:23] LABS: PTT Partial Thromboplastin Tim 30 SECONDS (26.4-36.2)
[2021-12-17] MEDS: DEXAMETHASONE 10 MG/ML VIAL IV (18:25)
[2021-12-17] MEDS: HYDROMORPHONE 1 MG INJ IV (18:25)
[2021-12-17 18:28] LABS: C-Reactive Protein Quant 2.1 mg/dL (<1.0)
--- NOTE | 2021-12-17 18:44 | DI.CT.S_ITS ---
PROCEDURE: CT THORACIC SPINE WO CON INDICATIONS: back pain, weakness, urinary retention TECHNIQUE: Noncontrast 3 mm thick sections acquired through the region of interest in the thoracic spine. Sagittal and coronal reformats were then constructed. For radiation dose reduction, the following was used: automated exposure control. COMPARISON: [facility], CR, XR CHEST 2 VIEWS, 07/08/2018, 7:18. [facility], CR, XR CHEST 1 VIEW, 07/07/2018, 15:38. [facility], CT, CT LUMBAR SPINE W CON, 12/17/2021, 17:33. FINDINGS: Diffuse thoracolumbar ankylosis consistent with ankylosing spondylitis. No fracture or malalignment. No suspicious lytic or blastic osseous lesion. There is what appears to be an extradural mass in the upper thoracic cord causing severe spinal canal stenosis. This measures approximately 1.3 x 1.6 cm maximum axial dimension and 5.1 cm craniocaudal. The mass may extend out of the adjacent left-sided neural foramina, although this is not entirely definitive. Scar-like opacity in the left lung apex was not definitely present on comparison chest radiographs. No acute airspace opacity otherwise. Cardiomegaly with small pericardial effusion and pacemaker leads noted. 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 Neurosurgery consultation recommended. Dictated by: Octavio Sutton M.D. on 12/17/2021 at 19:12 Approved by: Octavio Sutton M.D. on 12/17/2021 at 19:15
[2021-12-17 18:51] LABS: Erythrocyte Sedimentation Rate 12 MM/HR (0-15)
[2021-12-17 19:14] LABS: COVID19 -Nasal RAPID Negative (Negative)
--- NOTE | 2021-12-17 19:49 | PC.NURSE ---
Pt arrived this afternoon reporting yesterday feeling baseline and going on a strenuous hike. states h/o anklosing spondylitis and pacemaker for complete heart block. reports increased back pain which he thought was soreness, which progresses to LLE paresthesia and woke this morning with LLE paralysis and unable to walk. On assessment pt with little to no sensation of the LLE as well as decreased to no rectal tone per Dr Cornelius. Pt reports no trauma noted on his hike. Also reports unable to urinate since 1700 yesterday. Bladder scanned and 500+ noted in bladder. 16F laws placed and about 850ml initial output of dark garret urine. IV placed and labs drawn. IVF given per JUL. pt medicated for pain. CT scan obtained. MRI cancelled due to pt's pacemaker. Pt resting comfortably on stretcher with at side. Awaiting [facility] for transport to [facility].
== END 2021-12-17 19:56 | disposition short-term general hospital (02) ==
PROVIDERS: Emergency Provider Emergency Medicine; PCP Family Medicine
DX: G82.20 Paraplegia, unspecified (principal); M45.9 Ankylosing spondylitis of unspecified sites in spine; R33.9 Retention of urine, unspecified; G95.89 Other specified diseases of spinal cord; Z95.0 Presence of cardiac pacemaker; Z20.822 Contact with and (suspected) exposure to COVID-19
CPT/HCPCS: 36415; 51798; 72128; 72132; 80053; 81001; 82962; 83690; 83735; 85025; 85610; 85651; 85730; 86140; 87635; 96361; 96374; 96375; 99285; 99291; C9803; J1100; J1170; J2270; Q9967

== ENCOUNTER 2022-05-16 13:30 | Outpatient (RCR) | payer MEDICARE, SELFPAY ==
--- NOTE | 2022-02-11 15:37 | OT.OP.EVAL ---
Visit Care Team Role Provider Type Octavio Yates MD Primary Care Provider Physician Specialty: Family Practice Address: [address] [place] [address], [id number] Email: [email or web address] Other Providers Specialty: Address: Phone: Fax: Email: Charleen Arias PA-C Attending Provider Advanced Supervisor Lens Generating Referring Provider Specialty: Medical Address: [address], [address] Email: [email or web address] Occupational Therapy Initial Evaluation OT Outpatient Adult Evaluation Start: 02/11/22 14:28 Freq: Status: Active Protocol: Document 02/11/22 14:28 AMS (Rec: 02/11/22 15:37 AMS [id number]) General Information - Adult Visit Start Time 12:30 Visit Stop Time 13:20 Total Visit Minutes 50 Treatment Setting Outpatient Care Note Type Initial Evaluation Identification Confirmed Yes Identification Confirmed By Self/ - Karen Goals Treatment Initiation of HEP. Instruction in 'chair dip' in w/c; education re: proper execution and compensatory strategies to monitor for. Short Term Goals 1. 4+/5 MMT R sh abd. 2. 5/5 MMT L sh abd. 3. Patient will be able to properly execute x 5 chair dips in w/c to support functional mobility/transfers with hold of 5 to 10 seconds without use of compensatory strategies. Ict Support Technicians Goals 1. Patient will be modified independent with execution of home exercise program utilizing provided written and visual instructions from therapist. Assessment/Plan Treatment Assessment Patient is a 71 year-old right hand dominant male referred to outpatient OT by PCP. 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 Laminectomy of T3 - T7 was completed; large thoracic 1 x 3 cm epidural hematoma was found and removed . Patient was 33 days in the hospital and received therapy services. He was d/c to home w/ support of his . Medical history is significant for bilateral lower extremity paraplegia (T3 AIS A - 12/26/21); ankylosing spondylitis () w/ noted secondary neck/back pain; bradycardia s/p pacemaker 3 years ago; neurogenic bowel; neurogenic bladder; no issues w/ spasticity. Patient was accompanied by his , Karen. 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 Patient resides in 2-story home; Patient arrived in manual w/c; report of new w/c being delivered to the home in the near future. Use of gloves to protect hands w/ propelling of w/c. Indication of 4 to 5 out of 10 on Pain Assessment Grid relative to mid/lower back. Use of leg lift and volunteer assistant in the home. Use of sliding transfer board. Avg 57# of force w/ R cinetechnician and 52# of force w/ L cinetechnician w/ dynamometer II cinetechnician strength testing. B UE WNL; 5/5 MMT R sh flex; 5/5 MMT L sh flex; 5/5 MMT R sh ext; 5/5 L sh ext; 4-/5 MMT R sh abd; 4+/5 MMT R sh abd; 5/5 MMT R sh add; 5/5 MMT L sh add; 5/5 MMT R elbow flex/ext; 5/5 MMT L elbow flex/ext; 5/5 MMT R wrist flex/ext/UD/RD; 5 /5 MMT L wrist flex/ext/UD/RD. Report of improving sensation into the R LE. Use of slide transfer board w/ functional transfers w/ gait belt. Patient would likely benefit from outpatient OT to support functional independence; address UE weakness and joint protection/upper extremities. Therapist faxed referring PCP for referral to PT. Plan of Care Start Date 02/11/22 Plan of Care End Date 05/02/22 Comment 10 weeks Treatment Frequency Once a Week Therapeutic Contents Active Range of Motion, Adaptive Equipment Education, Client Education,Cognitive Skills Development,Functional Activities,Home Exercise Program,Joint Protection, Manual Therapy,Education, Neurodevelopment Treatment, Neuromuscular Re-Education, Self-Care,Stretching/ Flexibility Activities, Therapeutic Activities, Therapeutic Exercises, Modalities Additional Areas of Treatment Heat/Cold/Contrast Suggested Referrals Physical Therapy
--- NOTE | 2022-02-19 15:34 | OT.OP.TRT ---
Visit Care Team Role Provider Type Octavio Yates MD Primary Care Provider Physician Specialty: Family Practice Address: [address] [place] [address], [id number] Email: [email or web address] Other Providers Specialty: Address: Phone: Fax: Email: Charleen Arias PA-C Attending Provider Advanced Structural Steel Trades Worker Referring Provider Specialty: Medical Address: [address], [address] Email: [email or web address] Occupational Therapy Treatment Note OT Outpatient Treatment Note - Adult Start: 02/11/22 14:28 Freq: Status: Active Protocol: Document 02/19/22 15:16 AMS (Rec: 02/19/22 15:33 AMS [id number]) OT Outpatient Adult Treatment Note Session Time Visit Start Time 13:30 Visit Stop Time 14:25 Total Visit Minutes 55 Visit Information Visit Number 06/21 Plan of Care Dates 02/11/22 - 05/02/22 Insurance Information Medicare Setting Treatment Setting Outpatient Care Visit Type Note Type Treatment Note General Information General Information Patient is a 71 year-old right hand dominant male referred to outpatient OT by PCP. 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 Laminectomy of T3 - T7 was completed; large thoracic 1 x 3 cm epidural hematoma was found and removed . Patient was 33 days in the hospital and received therapy services. He was d/c to home w/ support of his . Medical history is significant for bilateral lower extremity paraplegia (T3 AIS A - 12/26/21); ankylosing spondylitis () w/ noted secondary neck/back pain; bradycardia s/p pacemaker 3 years ago; neurogenic bowel; neurogenic bladder; no issues w/ spasticity. Patient was accompanied by his , Karen. 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 Patient resides in 2-story home; Patient arrived in manual w/c; report of new w/c being delivered to the home in the near future. Use of gloves to protect hands w/ propelling of w/c. Indication of 4 to 5 out of 10 on Pain Assessment Grid relative to mid/lower back. Use of leg lift and senior product marketing manager in the home. Use of sliding transfer board. - Subjective Identification Type Name Braden Luis was seen 1:1 for OT treatment session. Arrived in manual w/c. No new concerns were reported. Patient/Caregiver Compliance with Home Good Exercise Program - Objective Objective Measurements Please refer to below for progress towards meeting established OT goals: Short Term Goals 1. 4+/5 MMT R sh abd. 2. 5/5 MMT L sh abd. 3. Patient will be able to properly execute x 5 chair dips in w/c to support functional mobility/transfers with hold of 5 to 10 seconds without use of compensatory strategies. Park Aide Goals 1. Patient will be modified independent with execution of home exercise program utilizing provided written and visual instructions from therapist. - Treatment 1 Descriptor Trunk/core stabilization. Forwards <-> Backwards. L <-> R. Circular. Weight shifting and return to midline. Orientation to midline. Unilateral arm raise within KIARA. Unilateral arm raise overhead within KIARA. Bilateral arm raise overhead within KIARA . Exercises 2 Descriptor UE strengthening. Seated row. 30#. 3 x 10. 1 Descriptor UE AROM. Seated in manual w/c. UEB x 10 minutes. Arm pulleys x 5 minutes. - Assessment Assessment of Improvement Able to direct slide board transfers w/c <-> EOM. No loss of balance. Use of gait belt. CGA provided. Discussed energy conservation and monitoring UE fatigue d/t increased reliance on UEs w/ functional transfers/engaging within his environment (need to use UEs to assist w/ LE management). Decreased lateral trunk flexion likely d/t . Introduced bilateral arm raise above head at EOM; required CGA to min phys assist to regain balance/orientation to midline. However, did quite well. Overall, good session. Will look to advance UE strengthening exercises and support functional engagement of core. Patient has appt scheduled for initial eval w/ outpatient PT. Patient would likely benefit from outpatient OT to support functional independence; address UE weakness and joint protection/upper extremities. - Plan Therapy Recommendations Continue with Current Program, Advance per Rehabilitation Protocol
--- NOTE | 2022-03-04 15:30 | OT.OP.TRT ---
Visit Care Team Role Provider Type Octavio Yates MD Primary Care Provider Physician Specialty: Family Practice Address: [address] [place] [address], [address] Email: [email or web address] Other Providers Specialty: Address: Phone: Fax: Email: Charleen Arias PA-C Attending Provider Advanced Ammonia Box Operator Referring Provider Specialty: Medical Address: [address], [address] Email: [email or web address] Occupational Therapy Treatment Note OT Outpatient Treatment Note - Adult Start: 02/11/22 14:28 Freq: Status: Active Protocol: Document 03/04/22 15:30 AMS (Rec: 03/05/22 08:55 AMS [id number]) OT Outpatient Adult Treatment Note Session Time Visit Start Time 13:40 Visit Stop Time 14:25 Total Visit Minutes 45 Visit Information Visit Number 07/19 Plan of Care Dates 02/11/22 - 05/02/22 Insurance Information Medicare Setting Treatment Setting Outpatient Care Visit Type Note Type Treatment Note General Information General Information Patient is a 71 year-old right hand dominant male referred to outpatient OT by PCP. Patient was transferred to 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 Laminectomy of T3 - T7 was completed; large thoracic 1 x 3 cm epidural hematoma was found and removed . Patient was 33 days in the hospital and received therapy services. He was d/c to home w/ support of his . Medical history is significant for bilateral lower extremity paraplegia (T3 AIS A - 12/26/21); ankylosing spondylitis () w/ noted secondary neck/back pain; bradycardia s/p pacemaker 3 years ago; neurogenic bowel; neurogenic bladder; no issues w/ spasticity. Patient was accompanied by his , Karen. 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 Patient resides in 2-story home; Patient arrived in manual w/c; report of new w/c being delivered to the home in the near future. Use of gloves to protect hands w/ propelling of w/c. Indication of 4 to 5 out of 10 on Pain Assessment Grid relative to mid/lower back. Use of leg lift and post hole digger in the home. Use of sliding transfer board. - Subjective Identification Type Name Braden Luis was seen 1:1 for OT treatment session. Arrived in manual w/c. Difficulties reported w/ car transfer. Patient/Caregiver Compliance with Home Good Exercise Program - Objective Objective Measurements Please refer to below for progress towards meeting established OT goals: Short Term Goals 1. 4+/5 MMT R sh abd. 2. 5/5 MMT L sh abd. 3. Patient will be able to properly execute x 5 chair dips in w/c to support functional mobility/transfers with hold of 5 to 10 seconds without use of compensatory strategies. Residential Sales Rep Goals 1. Patient will be modified independent with execution of home exercise program utilizing provided written and visual instructions from therapist. - Treatment 1 Descriptor Trunk/core stabilization. Forwards <-> Backwards. Orientation to midline. Unilateral arm raise within KIARA above eye level x 10 repetitions. Exercises 2 Descriptor UE strengthening. Seated row. 30#. 3 x 10. Sh extension. 20#. 2 x 10. 1 x 7. 1 Descriptor UE AROM. Seated in manual w/c. UEB x 10 minutes. Arm pulleys x 5 minutes. - Assessment Assessment of Improvement Reported desire to work away from slide board w/ transfers; discussed PT will direct transfers and OT to support. Reported continued difficulties w/ uphill slideboard transfers particularly w/ car transfers. Recommended discussing transfer w/ primary PT for problem solving. Decreased lateral trunk flexion likely d /t which is impacting functional transfers. Revisited EOM work; required CGA to min phys assist to regain balance/orientation to midline w/ focus on increasing number of repetitions 7 to 8 prior to needing increased support w/ alt UE arm raises overhead (will look to increase repetitions and awareness of loss of balance in future treatment sessions). Introduced sh ext w/ cables. Will look to advance UE strengthening exercises and support functional engagement of core w/ UE movement patterns. Patient has appt scheduled for initial eval w/ outpatient PT (mid March 29). Overall, good session. Patient would likely benefit from outpatient OT to support functional independence; address UE weakness and joint protection/upper extremities. - Plan Therapy Recommendations Continue with Current Program, Advance per Rehabilitation Protocol
--- NOTE | 2022-05-16 15:54 | OT.OPPN ---
Current Diagnoses Paraplegia, unspecified (05/16/22) Weakness (05/16/22) Other specified personal risk factors, not elsewhere classified (05/16/22) Other specified postprocedural states (05/16/22) OT Progress Note OT Outpatient Treatment Note - Adult Start: 02/11/22 14:28 Freq: Status: Active Protocol: Document 05/16/22 15:45 AMS (Rec: 05/16/22 15:54 AMS [id number]) OT Outpatient Adult Treatment Note Session Time Visit Start Time 13:30 Visit Stop Time 14:15 Total Visit Minutes 45 Visit Information Visit Number 05/21 Plan of Care Dates 05/02/22 - 05/16/22 Insurance Information Medicare Setting Treatment Setting Outpatient Care Visit Type Note Type Progress Note - Subjective Observations Per Toby, he is actively utilizing 5#, 10# and 15# dumbbells in the home, as well as theraband for UE strengthening. He is actively doing pressure release(s) up to 1 minute x 4 to 5 times while seated in manual w/c during UE strengthening routine. - Objective Objective Measurements Please refer to below for progress towards meeting established OT goals: Short Term Goals ALL GOALS MET 05/16/22 1. 4+/5 MMT R sh abd. 2. 5/5 MMT L sh abd. 3. Patient will be able to properly execute x 5 chair dips in w/c to support functional mobility/transfers with hold of 5 to 10 seconds without use of compensatory strategies. Senior Care Goals ALL GOALS MET 05/16/22 1. Patient will be modified independent with execution of home exercise program utilizing provided written and visual instructions from therapist. - Treatment 1 Descriptor Trunk/core stabilization at EOM. Exercises 2 Descriptor UE strengthening. Seated row. 30#. 3 x 10. Sh extension. 20#. 3 x 10. 1 Descriptor UE AROM. Seated in manual w/c. UEB x 10 minutes. - Assessment Assessment of Improvement Toby has met all established goals for outpatient occupational therapy. He is independent w/ his home exercise program and is actively utilizing dumbbells, theraband for upper extremity strengthening, as well as completing pressure release up to 1 min for pressure release while seated in his personal w/c. Recommend that Toby focuses on outpatient physical therapy at this time. Discharge paperwork to be completed. - Plan Therapy Recommendations Discharge from Occupational Therapy Therapeutic Contents Client Education,Cognitive Skills Development,Functional Activities,Home Exercise Program,Joint Protection, Manual Therapy,Education, Neurodevelopment Treatment, Neuromuscular Re-Education, Self-Care,Therapeutic Activities,Therapeutic Exercises If you are in agreement with this Plan of Care, please return a signed and dated copy. I have reviewed this Plan of Care and certify that the skilled therapy services above are required to meet the patient?s needs. Physician Signature Date Printed Name and Credentials Clinical Instructor Signature Printed Name and Credentials
--- NOTE | 2022-05-16 15:55 | OT.OP.DC ---
Visit Care Team Role Provider Type Octavio Yates MD Primary Care Provider Physician Address: [address] [place] [address], [id number] Email: [email or web address] Providers Address: Phone: Fax: Email: Charleen Arias PA-C Attending Provider [employer] Referring Provider Address: [address], [address] Email: [email or web address] OT Outpatient OT Outpatient Adult Evaluation Start: 02/11/22 14:28 Freq: Status: Active Protocol: Document 02/11/22 14:28 AMS (Rec: 02/11/22 15:37 AMS [id number]) General Information - Adult Session Time Visit Start Time 12:30 Visit Stop Time 13:20 Total Visit Minutes 50 Setting Treatment Setting Outpatient Care Visit Type Note Type Initial Evaluation Identification Identification Confirmed Yes Identification Confirmed By Self/ - Karen Goals Treatment Treatment Initiation of HEP. Instruction in 'chair dip' in w/c; education re: proper execution and compensatory strategies to monitor for. Short Term Goals Short Term Goals 1. 4+/5 MMT R sh abd. 2. 5/5 MMT L sh abd. 3. Patient will be able to properly execute x 5 chair dips in w/c to support functional mobility/transfers with hold of 5 to 10 seconds without use of compensatory strategies. Cavalry Officer Goals Senior Living Goals 1. Patient will be modified independent with execution of home exercise program utilizing provided written and visual instructions from therapist. Assessment/Plan Assessment Treatment Assessment Patient is a 71 year-old right hand dominant male referred to outpatient OT by PCP. 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 Laminectomy of T3 - T7 was completed; large thoracic 1 x 3 cm epidural hematoma was found and removed . Patient was 33 days in the hospital and received therapy services. He was d/c to home w/ support of his . Medical history is significant for bilateral lower extremity paraplegia (T3 AIS A - 12/26/21); ankylosing spondylitis () w/ noted secondary neck/back pain; bradycardia s/p pacemaker 3 years ago; neurogenic bowel; neurogenic bladder; no issues w/ spasticity. Patient was accompanied by his , Karen. 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 Patient resides in 2-story home; Patient arrived in manual w/c; report of new w/c being delivered to the home in the near future. Use of gloves to protect hands w/ propelling of w/c. Indication of 4 to 5 out of 10 on Pain Assessment Grid relative to mid/lower back. Use of leg lift and painter aircraft in the home. Use of sliding transfer board. Avg 57# of force w/ R layboy operator and 52# of force w/ L layboy operator w/ dynamometer II layboy operator strength testing. B UE WNL; 5/5 MMT R sh flex; 5/5 MMT L sh flex; 5/5 MMT R sh ext; 5/5 L sh ext; 4-/5 MMT R sh abd; 4+/5 MMT R sh abd; 5/5 MMT R sh add; 5/5 MMT L sh add; 5/5 MMT R elbow flex/ext; 5/5 MMT L elbow flex/ext; 5/5 MMT R wrist flex/ext/UD/RD; 5 /5 MMT L wrist flex/ext/UD/RD. Report of improving sensation into the R LE. Use of slide transfer board w/ functional transfers w/ gait belt. Patient would likely benefit from outpatient OT to support functional independence; address UE weakness and joint protection/upper extremities. Therapist faxed referring PCP for referral to PT. Plan Plan of Care Start Date 02/11/22 Plan of Care End Date 05/02/22 Comment 10 weeks Treatment Frequency Once a Week Therapeutic Contents Active Range of Motion, Adaptive Equipment Education, Client Education,Cognitive Skills Development,Functional Activities,Home Exercise Program,Joint Protection, Manual Therapy,Education, Neurodevelopment Treatment, Neuromuscular Re-Education, Self-Care,Stretching/ Flexibility Activities, Therapeutic Activities, Therapeutic Exercises, Modalities Additional Areas of Treatment Heat/Cold/Contrast Suggested Referrals Physical Therapy Functional Wrist/Hand Scan Hand Side Sensory Assessment Sensory Profile2 OT Outpatient Treatment Note - Adult Start: 02/11/22 14:28 Freq: Status: Active Protocol: Document 05/16/22 15:45 AMS (Rec: 01/05/23 15:54 AMS [id number]) OT Outpatient Adult Treatment Note Session Time Visit Start Time 13:30 Visit Stop Time 14:15 Total Visit Minutes 45 Visit Information Visit Number 05/21 Plan of Care Dates 05/02/22 - 05/16/22 Insurance Information Medicare Setting Treatment Setting Outpatient Care Visit Type Note Type Progress Note - Subjective Observations Per Toby, he is actively utilizing 5#, 10# and 15# dumbbells in the home, as well as theraband for UE strengthening. He is actively doing pressure release(s) up to 1 minute x 4 to 5 times while seated in manual w/c during UE strengthening routine. - Objective Objective Measurements Please refer to below for progress towards meeting established OT goals: Short Term Goals ALL GOALS MET 05/16/22 1. 4+/5 MMT R sh abd. 2. 5/5 MMT L sh abd. 3. Patient will be able to properly execute x 5 chair dips in w/c to support functional mobility/transfers with hold of 5 to 10 seconds without use of compensatory strategies. Senior Living Goals ALL GOALS MET 05/16/22 1. Patient will be modified independent with execution of home exercise program utilizing provided written and visual instructions from therapist. - Treatment 1 Descriptor Trunk/core stabilization at EOM. Exercises 2 Descriptor UE strengthening. Seated row. 30#. 3 x 10. Sh extension. 20#. 3 x 10. 1 Descriptor UE AROM. Seated in manual w/c. UEB x 10 minutes. - Assessment Assessment of Improvement Toby has met all established goals for outpatient occupational therapy. He is independent w/ his home exercise program and is actively utilizing dumbbells, theraband for upper extremity strengthening, as well as completing pressure release up to 1 min for pressure release while seated in his personal w/c. Recommend that Toby focuses on outpatient physical therapy at this time. Discharge paperwork to be completed. - Plan Therapy Recommendations Discharge from Occupational Therapy Therapeutic Contents Client Education,Cognitive Skills Development,Functional Activities,Home Exercise Program,Joint Protection, Manual Therapy,Education, Neurodevelopment Treatment, Neuromuscular Re-Education, Self-Care,Therapeutic Activities,Therapeutic Exercises
== END 2022-05-20 13:59 | disposition home or self-care (01) ==
LOC: OT 13:30
PROVIDERS: PCP Family Medicine; Referring Provider Physician Assistant; Visit Provider Physician Assistant
DX: G82.20 Paraplegia, unspecified (principal); Z98.890 Other specified postprocedural states; Z91.89 Other specified personal risk factors, not elsewhere classified; R53.1 Weakness
CPT/HCPCS: 97110; 97166; 97530

== ENCOUNTER → 2023-01-01 14:20 | Outpatient (CLI) | payer MEDICARE, SELFPAY ==
--- NOTE | 2023-01-01 | DI.US.S_ITS ---
PROCEDURE: US RENAL COMPLETE INDICATIONS: NEUROMUSCULAR BLADDER DYSFUNCTION TECHNIQUE: Real-time scanning was performed of the kidneys and bladder, with image documentation. COMPARISON: None. FINDINGS: Kidneys: Kidneys are normal in size. Right kidney measures 11.6 cm long; left kidney measures 11.6 cm long. Right renal cortical thickness is 1.5 cm; left renal cortical thickness is 1.3 cm. Renal cortical echotexture is normal. No hydronephrosis or nephrolithiasis. No suspicious solid mass lesions. Bladder: Pre-void bladder volume is 21 mL. Miscellaneous: No free pelvic fluid. IMPRESSION: Unremarkable ultrasound the kidneys. Decompressed bladder Approved by: Poncho Calderon M.D. on 01/01/2023 at 17:45
== END ==
PROVIDERS: Family Provider Family Medicine; PCP Family Medicine; Referring Provider Physical Medicine & Rehabilitation; Visit Provider Physical Medicine & Rehabilitation
DX: N31.9 Neuromuscular dysfunction of bladder, unspecified (principal); G82.20 Paraplegia, unspecified
CPT/HCPCS: 76770

== ENCOUNTER → 2023-06-02 09:58 | Outpatient (CLI) | payer MEDICARE, SELFPAY ==
[2023-06-02 10:56] LABS: Add Manual Diff / Slide Review NO; Basophils Absolute Auto 0 /uL (0-100); Basophils Percent Auto 0.3 % (0-2); Eosinophils Absolute Auto 100 /uL (0-450); Eosinophils Percent Auto 1.3 % (2-4); Hematocrit 41.9 % (41-53); Hemoglobin 14.4 g/dL (13.5-17.5); Lymphocytes Absolute Auto 1200 /uL (1100-4500); Lymphocytes Percent Auto 19.8 % (25-40); Mean Corpuscular HGB Conc 34.5 % (30-36); Mean Corpuscular Hemoglobin 33.6 PG (26-34); Mean Corpuscular Volume 97.5 fL (80-100); Monocytes Absolute Auto 500 /uL (0-900); Monocytes Percent Auto 8.7 % (3-14); Neutrophils Absolute Auto 4300 /uL (1500-7000); Neutrophils Percent Auto 69.9 % (50-75); Platelet Count 184 X10^3/uL (150-400); Red Cell Distribution Width 12.7 % (11.6-14.8); White Blood Cell Count 6.2 X10^3/uL (4.5-11.0)
[2023-06-02 11:24] LABS: Alanine Aminotransferase 25 IU/L (<50); Albumin 4.2 g/dL (3.5-5.0); Albumin Globulin Ratio 1.3 (1.0-2.8); Alkaline Phosphatase 111 U/L (38-126); Aspartate Aminotransferase 28 IU/L (17-59); BUN Creatinine Ratio 33.3 (6-22); Bilirubin Total 0.7 mg/dL (0.2-1.3); Blood Urea Nitrogen 25 mg/dL (9-20); Calcium 9.9 mg/dL (8.4-10.2); Carbon Dioxide 28 mmol/L (22-32); Chloride 103 mmol/L (98-107); Cholesterol 175 mg/dL (140-199); Estimated Glomerular Filt Rate > 60 mL/min (>60); Globulin 3.3 g/dL (1.7-4.1); Glucose 90 mg/dL (80-110); HDL Cholesterol 51 mg/dL (40-60); HEMOLYSIS < 15 (0-50); LDL Cholesterol Calculated 105 mg/dL (<100); Potassium 4.9 mmol/L (3.4-5.1); Sodium 139 mmol/L (137-145); Total Protein 7.5 g/dL (6.3-8.2); Triglycerides 93 mg/dL (35-150)
[2023-06-02 11:50] LABS: Prostate Specific Antigen Scrn 5.46 ng/mL (0.1-4.0)
[2023-06-02 11:53] LABS: TSH w/ Reflex to FT4 2.12 uIU/mL (0.47-4.68)
== END ==
PROVIDERS: Family Provider Family Medicine; PCP Family Medicine; Referring Provider Family Medicine; Visit Provider Family Medicine
DX: I44.1 Atrioventricular block, second degree (principal); Z12.5 Encounter for screening for malignant neoplasm of prostate
CPT/HCPCS: 36415; 80053; 80061; 84443; 85025; G0103

== ENCOUNTER → 2024-08-27 09:25 | Outpatient (CLI) | payer MEDICARE, OTHER, SELFPAY ==
[2024-08-27 10:10] LABS: Add Manual Diff / Slide Review NO; Basophils Absolute Auto 0 /uL (0-100); Basophils Percent Auto 0.5 % (0-2); Eosinophils Absolute Auto 100 /uL (0-450); Eosinophils Percent Auto 1.3 % (2-4); Hematocrit 39.4 % (41-53); Hemoglobin 13.7 g/dL (13.5-17.5); Lymphocytes Absolute Auto 1100 /uL (1100-4500); Lymphocytes Percent Auto 18.3 % (25-40); Mean Corpuscular HGB Conc 34.7 % (30-36); Mean Corpuscular Volume 97.9 fL (80-100); Monocytes Absolute Auto 600 /uL (0-900); Monocytes Percent Auto 9.6 % (3-14); Neutrophils Absolute Auto 4100 /uL (1500-7000); Neutrophils Percent Auto 70.3 % (50-75); Platelet Count 151 X10^3/uL (150-400); Red Blood Cell Count 4.02 X10^6/uL (4.5-5.9); Red Cell Distribution Width 13.1 % (11.6-14.8); White Blood Cell Count 5.8 X10^3/uL (4.5-11.0)
[2024-08-27 11:05] LABS: Alanine Aminotransferase 24 IU/L (<50); Albumin Globulin Ratio 1.5 (1.0-2.8); Alkaline Phosphatase 109 U/L (38-126); Aspartate Aminotransferase 25 IU/L (17-59); BUN Creatinine Ratio 25.7 (6-22); Bilirubin Total 0.6 mg/dL (0.2-1.3); Blood Urea Nitrogen 19 mg/dL (9-20); Calcium 8.9 mg/dL (8.4-10.2); Carbon Dioxide 28 mmol/L (22-32); Chloride 104 mmol/L (98-107); Cholesterol 166 mg/dL (140-199); Estimated Glomerular Filt Rate > 60 mL/min (>60); Globulin 2.7 g/dL (1.7-4.1); Glucose 100 mg/dL (80-110); HDL Cholesterol 46 mg/dL (40-60); HEMOLYSIS < 15 (0-50); LDL Cholesterol Calculated 105 mg/dL (<100); Potassium 4.4 mmol/L (3.4-5.1); Sodium 138 mmol/L (137-145); Total Protein 6.7 g/dL (6.3-8.2); Triglycerides 77 mg/dL (35-150)
[2024-08-27 11:35] LABS: Prostate Specific Antigen Scrn 1.83 ng/mL (0.1-4.0)
[2024-08-27 11:37] LABS: TSH w/ Reflex to FT4 1.56 uIU/mL (0.47-4.68)
== END ==
PROVIDERS: Family Provider Family Medicine; PCP Family Medicine; Referring Provider Family Medicine; Visit Provider Family Medicine
DX: G82.21 Paraplegia, complete (principal); I10 Essential (primary) hypertension; Z12.5 Encounter for screening for malignant neoplasm of prostate; K92.2 Gastrointestinal hemorrhage, unspecified; I44.1 Atrioventricular block, second degree; I51.7 Cardiomegaly
CPT/HCPCS: 36415; 80053; 80061; 84443; 85025; G0103

== ENCOUNTER 2025-01-17 14:30 | Outpatient (RCR) | payer MEDICARE, OTHER, SELFPAY ==
--- NOTE | 2022-03-08 12:00 | PT.OIE ---
Current Diagnoses Paraplegia, unspecified (03/08/22) Other specified personal risk factors, not elsewhere classified (03/08/22) Other specified postprocedural states (03/08/22) Past Medical History (Last Reviewed 12/17/21 @ 19:16 by Judy Cornelius DO) Ankylosing spondylitis (~1975) Essential hypertension History of uveitis Presence of cardiac pacemaker Seborrheic keratosis Skin cancer Past Surgical History (Last Reviewed 12/17/21 @ 19:16 by Judy Cornelius DO) Anesthesia Basal cell carcinoma Visit Care Team Role Provider Type Octavio Yates MD Family Provider Physician Primary Care Provider Specialty: Family Practice Address: [address] [place] [address], [address] Email: [email or web address] Charleen Arias PA-C Attending Provider Advanced Company Secretary Referring Provider Specialty: Medical Address: [address], [address] Email: [email or web address] Physical Therapy Initial Evaluation PT-OP-A Visit Information Start: 03/08/22 17:00 Freq: Status: Active Protocol: Document 03/08/22 11:15 DCW (Rec: 03/08/22 17:11 DCW [id number]) Out-Patient Physical Therapy Visit Information Visit Information Visit Type Initial Evaluation Visit Start Time 11:15 Visit Stop Time 12:05 Total Visit Minutes 50 Visit Number 1 Number of CERTIFIED NURSE MIDWIFE Visits 0 Evaluation Information Evaluation Date 03/08/22 PT-OP-B Current Condition Start: 03/08/22 17:00 Freq: Status: Active Protocol: Document 03/08/22 11:15 DCW (Rec: 03/08/22 17:11 DCW [id number]) Current Condition History of Current Condition Onset Date 12/16/21 Current Complaints Paraplegia History of Current Condition Pt is a 71 year old male with a very unfortunate medical history. Pt was hiking [email or web address] on 12/16/21 with a friend, finished up, drive back to his friend's home to drop him off, and noticed his left leg was collapsing. By the time pt drove home, both legs were giving out and numb. Pt was suddenly paralized from the waist down, was taken to the ED, and was flown to [facility] on 12/17/21. The following day, he underwent a laminectomy to relieve pressure from the thoracic epidural hematoma which had developed following his hike, which was pressing on his spinal cord. Following surgery , pt was in recovery for a week and was then transfered to rehab for 20 days, when he was finally discharged home in a wheelchair on 01/19/22. Pt reports his surgeon informed him that it is a possibility that he gets some return of nerve function. Has experienced some changes in his right LE, but has no motor function at this time from ~ T10 down. Minimal sensory return on right side, none on left. Pt has been anxious to get in to therapy and do everything he can to help return to function. Pt's , who attended his evaluation, notes that she has been doing a lot of PROM in his legs at night to keep everything moving. Pt can feel some stretching during PROM in his right leg. Pt has additionally already started occupational therapy, and has been practicing some seated stabilization. Pt transfers with a slide board, but notes it is difficult to do into his car, because he has to transfer upward at an incline. Treatment Goals Patient/Caregiver Goals I will do anything possible to get out of this wheelchair. My neurologist told me he has seen people recover from this , so I am not giving up hope. PT-OP-C Subjective Start: 03/08/22 17:00 Freq: Status: Active Protocol: Document 03/08/22 11:15 DCW (Rec: 03/11/22 12:14 DC [id number]) OP-PT Subjective Patient Comments Patient Comments Pt reports he is very motivated to work as hard as he can in order to improve PT-OP-G Mobility & Gait Start: 03/08/22 17:00 Freq: Status: Active Protocol: Document 03/08/22 11:15 DCW (Rec: 03/11/22 12:14 DC [id number]) OP Mobility Evaluation Transfers Bed to Chair Transfers Mainly slide-board, was able to transfer w/c to bed SBA using UE Car Transfers Slide board transfer Wheelchair Management Type of Wheelchair Manual w/c PT-OP-H Neuro Start: 03/08/22 17:00 Freq: Status: Active Protocol: Document 03/08/22 11:15 DCW (Rec: 03/11/22 12:14 DCW [id number]) Sensation Evaluation Gross Sensation Gross Sensation Left LE Impaired,Right LE Impaired,Trunk Impaired Sensation Description Paresthesia,Numbness,Tingling, Pins & [place],Burning Dermatome Impairments T10,T11,T12,L1,L2,L3,L4,L5,S1, S2,S3,S4-5 Location Details Right Leg Light Touch Impaired Sharp/Dull Absent Deep Pressure Impaired Hot/Cold Absent Protective Sensation Absent Proprioception (Position) Impaired Kinesthesia (Movement) Impaired Two-Point Discrimination Absent Tactile Localization Absent Left Leg Light Touch Absent Sharp/Dull Absent Deep Pressure Absent Hot/Cold Absent Protective Sensation Absent Proprioception (Position) Absent Kinesthesia (Movement) Impaired Two-Point Discrimination Absent Tactile Localization Absent Deep Tendon Reflex & Clonus Assessment Deep Tendon Reflex Right Achilles Deep Tendon Reflex 0 Absent Right Patellar Deep Tendon Reflex 0 Absent Left Achilles Deep Tendon Reflex 0 Absent Left Patellar Deep Tendon Reflex 0 Absent Muscle Tone Tone Assessment Right Lower Extremity Flexor Tone Description Severe Hypotonicity Extensor Tone Description Severe Hypotonicity Left Lower Extremity Flexor Tone Description Severe Hypotonicity Extensor Tone Description Severe Hypotonicity PT-OP-J Posture/Palpation/Skin Start: 03/08/22 17:00 Freq: Status: Active Protocol: Document 03/08/22 11:15 DCW (Rec: 03/11/22 12:19 DCW [id number]) Posture Evaluation Comments Posture Comments Limitations in sitting due to loss of abdominal motor function, able to use upper extremities to reach out and change center of gravity in order to stabilize PT-OP-T Assessment and Plan Start: 03/08/22 17:00 Freq: Status: Active Protocol: Document 03/08/22 11:15 DCW (Rec: 03/11/22 12:48 DCW [id number]) Physical Therapy Assessment Rehab Potential Rehabilitation Potential Fair Evaluation Complexity Number of Personal Factors/Comorbidities 3 or More Number of Body Systems Impaired 4 or More Clinical Presentation at Evaluation Unstable Impairments Impairments Activity Tolerance,Balance, Coordination,Functional Activities,Functional Mobility ,Gait,Integument,Sensation, Soft Tissue Mobility,Strength, Tone,Transfers Other Concerns Fall Risk Yes Barriers to Rehabilitation Paraplegia, Pacemaker Goals Three Impairment Pt does not have any motor function throughout bilateral LEs Will Call Order Clerk Goal (LTG) Pt to demonstrate 1/5 trace motor contraction in at least one quad in order to begin focus on LE mobility if neural functional return begins. LTG Duration 05/31/22 Two Impairment Pt struggles to perform slideboard car transfer due to upward tilt Prison Goal (LTG) Pt to demonstrate car transfer SBA using slideboard. LTG Duration 05/31/22 One Impairment Pt does not have an appropriate home exercise program Short Term Goal (STG) Pt to be independent and compliant with an appropriate HEP STG Duration 04/19/22 Assessment Summary Assessment Pt presents to skilled therapy with signs and symptoms consistent with referring diagnosis of paraplegia following thoracic epidural hematoma and resulting laminectomy. Pt has noticed some mild improvement in sensory return in his right leg, nothing in the left leg, and no motor contraction bilaterally. Pt has begun to improve his functional mobility using his wheelchair and a slideboard for transfers over the past 3.5 months, but is incredibly motivated to return to ambulating without assistance. Did review with pt that nerve recovery, if it does occur, is a very long, extended process, and a lot of his individual goals will involve just waiting for any potential recovery to occur. In the meantime, pt should benefit from skilled therapy focusing on LE mobilization, transfers, w/c management, sensory changes, and seated balance/core stabilization. Physical Therapy Plan Frequency and Duration Frequency of Treatment 2x/Week Duration of treatment (weeks) 12 Plan of Care Start Date 03/08/22 Plan of Care End Date 05/31/22 Therapeutic Interventions Therapeutic Interventions Aquatic Therapy,Balance Training,Coordination Training ,Gait Training,Home Exercise Program,Manual Therapy, Neuromuscular Re-education, Orthotic/Prosthetic Management ,Patient/Caregiver Education, Self-Care/Home Management, Sensory Integration,Soft Tissue Mobilization, Therapeutic Activities, Therapeutic Exercises, Wheelchair Management Next Visit Focus/Plan Next Note Type Treatment Note Next Visit Plan Transfers, mobility, LE ROM
--- NOTE | 2022-03-08 12:00 | PT.OPPOC ---
Physical, Occupational & Speech Therapy At [facility] Current Diagnoses Paraplegia, unspecified (03/08/22) Other specified personal risk factors, not elsewhere classified (03/08/22) Other specified postprocedural states (03/08/22) Visit Care Team Role Provider Type Octavio Yates MD Family Provider Physician Primary Care Provider Specialty: Family Practice Address: [address] [place] [address], [id number] Email: [email or web address] Charelen Arias PA-C Attending Provider Advanced Motion And Time Study Teacher Referring Provider Specialty: Medical Address: [address], [address] Email: [email or web address] Plan Of Care PT-OP-T Assessment and Plan Start: 03/08/22 17:00 Freq: Status: Active Protocol: Document 03/08/22 11:15 DCW (Rec: 03/11/22 12:48 DCW [id number]) Physical Therapy Assessment Rehab Potential Rehabilitation Potential Fair Evaluation Complexity Number of Personal Factors/Comorbidities 3 or More Number of Body Systems Impaired 4 or More Clinical Presentation at Evaluation Unstable Impairments Impairments Activity Tolerance,Balance, Coordination,Functional Activities,Functional Mobility ,Gait,Integument,Sensation, Soft Tissue Mobility,Strength, Tone,Transfers Other Concerns Fall Risk Yes Barriers to Rehabilitation Paraplegia, Pacemaker Goals Three Impairment Pt does not have any motor function throughout bilateral LEs Nursing Home Goal (LTG) Pt to demonstrate 1/5 trace motor contraction in at least one quad in order to begin focus on LE mobility if neural functional return begins. LTG Duration 05/31/22 Two Impairment Pt struggles to perform slideboard car transfer due to upward tilt Classified Advertising Clerk Goal (LTG) Pt to demonstrate car transfer SBA using slideboard. LTG Duration 05/31/22 One Impairment Pt does not have an appropriate home exercise program Short Term Goal (STG) Pt to be independent and compliant with an appropriate HEP STG Duration 04/19/22 Assessment Summary Assessment Pt presents to skilled therapy with signs and symptoms consistent with referring diagnosis of paraplegia following thoracic epidural hematoma and resulting laminectomy. Pt has noticed some mild improvement in sensory return in his right leg, nothing in the left leg, and no motor contraction bilaterally. Pt has begun to improve his functional mobility using his wheelchair and a slideboard for transfers over the past 3.5 months, but is incredibly motivated to return to ambulating without assistance. Did review with pt that nerve recovery, if it does occur, is a very long, extended process, and a lot of his individual goals will involve just waiting for any potential recovery to occur. In the meantime, pt should benefit from skilled therapy focusing on LE mobilization, transfers, w/c management, sensory changes, and seated balance/core stabilization. Physical Therapy Plan Frequency and Duration Frequency of Treatment 2x/Week Duration of treatment (weeks) 12 Plan of Care Start Date 03/08/22 Plan of Care End Date 05/31/22 Therapeutic Interventions Therapeutic Interventions Aquatic Therapy,Balance Training,Coordination Training ,Gait Training,Home Exercise Program,Manual Therapy, Neuromuscular Re-education, Orthotic/Prosthetic Management ,Patient/Caregiver Education, Self-Care/Home Management, Sensory Integration,Soft Tissue Mobilization, Therapeutic Activities, Therapeutic Exercises, Wheelchair Management Next Visit Focus/Plan Next Note Type Treatment Note Next Visit Plan Transfers, mobility, LE ROM Plan of Care Dates Plan of Care Start Date 03/08/22 Plan of Care End Date 05/31/22 Electronically Signed by: Jean Ruggiero, PT 03/11/22 9230 If you are in agreement with this Plan of Care, please return a signed and dated copy. I have reviewed this Plan of Care and certify that the skilled therapy services above are required to meet the patient?s needs. Physician Signature Date Printed Name and Credentials Clinical Instructor Signature Printed Name and Credentials
--- NOTE | 2022-03-20 12:54 | PT.OTN ---
Current Diagnoses Paraplegia, unspecified (03/20/22) Other specified personal risk factors, not elsewhere classified (03/20/22) Other specified postprocedural states (03/20/22) Physical Therapy Treatment Note PT-OP-A Visit Information Start: 03/08/22 17:00 Freq: Status: Active Protocol: Document 03/20/22 11:55 DCW (Rec: 03/20/22 12:54 DCW [id number]) Out-Patient Physical Therapy Visit Information Visit Information Visit Type Treatment Note Visit Start Time 11:55 Visit Stop Time 12:50 Total Visit Minutes 55 Visit Number 2 Number of PIN DRAFTER Visits 0 Evaluation Information Evaluation Date 03/08/22 PT-OP-B Current Condition Start: 03/08/22 17:00 Freq: Status: Active Protocol: Document 03/08/22 11:15 DCW (Rec: 03/08/22 17:11 DCW [id number]) Current Condition History of Current Condition Onset Date 12/16/21 Current Complaints Paraplegia History of Current Condition Pt is a 71 year old male with a very unfortunate medical history. Pt was hiking [place] on 12/16/21 with a friend, finished up, drive back to his friend's home to drop him off, and noticed his left leg was collapsing. By the time pt drove home, both legs were giving out and numb. Pt was suddenly paralized from the waist down, was taken to the ED, and was flown to [facility] on 12/17/21. The following day, he underwent a laminectomy to relieve pressure from the thoracic epidural hematoma which had developed following his hike, which was pressing on his spinal cord. Following surgery , pt was in recovery for a week and was then transfered to rehab for 20 days, when he was finally discharged home in a wheelchair on 01/19/22. Pt reports his surgeon informed him that it is a possibility that he gets some return of nerve function. Has experienced some changes in his right LE, but has no motor function at this time from ~ T10 down. Minimal sensory return on right side, none on left. Pt has been anxious to get in to therapy and do everything he can to help return to function. Pt's , who attended his evaluation, notes that she has been doing a lot of PROM in his legs at night to keep everything moving. Pt can feel some stretching during PROM in his right leg. Pt has additionally already started occupational therapy, and has been practicing some seated stabilization. Pt transfers with a slide board, but notes it is difficult to do into his car, because he has to transfer upward at an incline. Treatment Goals Patient/Caregiver Goals I will do anything possible to get out of this wheelchair. My neurologist told me he has seen people recover from this , so I am not giving up hope. PT-OP-C Subjective Start: 03/08/22 17:00 Freq: Status: Active Protocol: Document 03/20/22 11:55 DCW (Rec: 03/20/22 12:54 DCW [id number]) OP-PT Subjective Patient Comments Patient Comments Pt looking forward to getting some exercise and leg movement . PT-OP-G Mobility & Gait Start: 03/08/22 17:00 Freq: Status: Active Protocol: Document 03/08/22 11:15 DCW (Rec: 03/11/22 12:14 DCW [id number]) OP Mobility Evaluation Transfers Bed to Chair Transfers Mainly slide-board, was able to transfer w/c to bed SBA using UE Car Transfers Slide board transfer Wheelchair Management Type of Wheelchair Manual w/c PT-OP-H Neuro Start: 03/08/22 17:00 Freq: Status: Active Protocol: Document 03/08/22 11:15 DCW (Rec: 03/11/22 12:14 DCW [id number]) Sensation Evaluation Gross Sensation Gross Sensation Left LE Impaired,Right LE Impaired,Trunk Impaired Sensation Description Paresthesia,Numbness,Tingling, Pins & [place],Burning Dermatome Impairments T10,T11,T12,L1,L2,L3,L4,L5,S1, S2,S3,S4-5 Location Details Right Leg Light Touch Impaired Sharp/Dull Absent Deep Pressure Impaired Hot/Cold Absent Protective Sensation Absent Proprioception (Position) Impaired Kinesthesia (Movement) Impaired Two-Point Discrimination Absent Tactile Localization Absent Left Leg Light Touch Absent Sharp/Dull Absent Deep Pressure Absent Hot/Cold Absent Protective Sensation Absent Proprioception (Position) Absent Kinesthesia (Movement) Impaired Two-Point Discrimination Absent Tactile Localization Absent Deep Tendon Reflex & Clonus Assessment Deep Tendon Reflex Right Achilles Deep Tendon Reflex 0 Absent Right Patellar Deep Tendon Reflex 0 Absent Left Achilles Deep Tendon Reflex 0 Absent Left Patellar Deep Tendon Reflex 0 Absent Muscle Tone Tone Assessment Right Lower Extremity Flexor Tone Description Severe Hypotonicity Extensor Tone Description Severe Hypotonicity Left Lower Extremity Flexor Tone Description Severe Hypotonicity Extensor Tone Description Severe Hypotonicity PT-OP-J Posture/Palpation/Skin Start: 03/08/22 17:00 Freq: Status: Active Protocol: Document 03/08/22 11:15 DCW (Rec: 03/11/22 12:19 DCW [id number]) Posture Evaluation Comments Posture Comments Limitations in sitting due to loss of abdominal motor function, able to use upper extremities to reach out and change center of gravity in order to stabilize PT-OP-Q Treatments Start: 03/08/22 17:00 Freq: Status: Active Protocol: Document 03/20/22 11:55 DCW (Rec: 03/20/22 12:54 DCW [id number]) Cardio Equipment Recumbent Elliptical (Biodex) Duration (Minutes) 8 Resistance 1 Seat Position 12 Other Slide-board transfer Therapeutic Exercises Supine Exercises Heel taps Supine Exercise Name Reach down touch heel with finger in hooklying Comments Core strengthening - unable Hamstring Stretch Supine Exercise Name HS stretch using strap Knee to Chest Supine Exercise Name Single KtC using strap Reps/Minutes x5 each, 10' hold Sidelying Exercises Hip Abduction Sidelying Exercise Name Abduction SLR using strap Comments Defer to next visit Sitting Exercises Triceps press-up Sitting Exercise Name Triceps press-up in long- sitting Side bilateral LAQ Sitting Exercise Name LAQ using strap Comments Min A for support in sitting EOB Calf stretch Sitting Exercise Name Calf stretch using strap Comments Min A for support in sitting EOB PT-OP-T Assessment and Plan Start: 03/08/22 17:00 Freq: Status: Active Protocol: Document 03/20/22 11:55 DCW (Rec: 03/20/22 12:54 DCW [id number]) Physical Therapy Assessment Impairments Impairments Activity Tolerance,Balance, Coordination,Functional Activities,Functional Mobility ,Gait,Integument,Sensation, Soft Tissue Mobility,Strength, Tone,Transfers Goals Three Impairment Pt does not have any motor function throughout bilateral LEs Custodial Goal (LTG) Pt to demonstrate 1/5 trace motor contraction in at least one quad in order to begin focus on LE mobility if neural functional return begins. LTG Duration 05/31/22 Two Impairment Pt struggles to perform slideboard car transfer due to upward tilt Business Information Consultant Goal (LTG) Pt to demonstrate car transfer SBA using slideboard. LTG Duration 05/31/22 One Impairment Pt does not have an appropriate home exercise program Short Term Goal (STG) Pt to be independent and compliant with an appropriate HEP STG Duration 04/19/22 Assessment Summary Assessment Pt repeatedly noted how good he felt on the Biodex and getting his legs moving a bit. Responded well to treatment today, happy with current HEP. Physical Therapy Plan Frequency and Duration Frequency of Treatment 2x/Week Duration of treatment (weeks) 12 Plan of Care Start Date 03/08/22 Plan of Care End Date 05/31/22 Therapeutic Interventions Therapeutic Interventions Aquatic Therapy,Balance Training,Coordination Training ,Gait Training,Home Exercise Program,Manual Therapy, Neuromuscular Re-education, Orthotic/Prosthetic Management ,Patient/Caregiver Education, Self-Care/Home Management, Sensory Integration,Soft Tissue Mobilization, Therapeutic Activities, Therapeutic Exercises, Wheelchair Management Next Visit Focus/Plan Next Note Type Treatment Note Next Visit Plan Transfers, mobility, LE ROM
--- NOTE | 2022-03-25 11:17 | PT.OTN ---
Current Diagnoses Paraplegia, unspecified (03/25/22) Other specified personal risk factors, not elsewhere classified (03/25/22) Other specified postprocedural states (03/25/22) Physical Therapy Treatment Note PT-OP-A Visit Information Start: 03/08/22 17:00 Freq: Status: Active Protocol: Document 03/25/22 10:30 DCW (Rec: 03/25/22 11:17 DCW [id number]) Out-Patient Physical Therapy Visit Information Visit Information Visit Type Treatment Note Visit Start Time 10:30 Visit Stop Time 11:15 Total Visit Minutes 45 Visit Number 3 Number of GROUND SURVEILLANCE SYSTEMS OPERATOR Visits 0 Evaluation Information Evaluation Date 03/08/22 PT-OP-B Current Condition Start: 03/08/22 17:00 Freq: Status: Active Protocol: Document 03/08/22 11:15 DCW (Rec: 03/08/22 17:11 DCW [id number]) Current Condition History of Current Condition Onset Date 12/16/21 Current Complaints Paraplegia History of Current Condition Pt is a 71 year old male with a very unfortunate medical history. Pt was [place] 12/16[place]21 with a friend, finished up, drive back to his friend's home to drop him off, and noticed his left leg was collapsing. By the time pt drove home, both legs were giving out and numb. Pt was suddenly paralized from the waist down, was taken to the ED, and was flown to [facility] on 12/17/21. The following day, he underwent a laminectomy to relieve pressure from the thoracic epidural hematoma which had developed following his hike, which was pressing on his spinal cord. Following surgery , pt was in recovery for a week and was then transfered to rehab for 20 days, when he was finally discharged home in a wheelchair on 01/19/22. Pt reports his surgeon informed him that it is a possibility that he gets some return of nerve function. Has experienced some changes in his right LE, but has no motor function at this time from ~ T10 down. Minimal sensory return on right side, none on left. Pt has been anxious to get in to therapy and do everything he can to help return to function. Pt's , who attended his evaluation, notes that she has been doing a lot of PROM in his legs at night to keep everything moving. Pt can feel some stretching during PROM in his right leg. Pt has additionally already started occupational therapy, and has been practicing some seated stabilization. Pt transfers with a slide board, but notes it is difficult to do into his car, because he has to transfer upward at an incline. Treatment Goals Patient/Caregiver Goals I will do anything possible to get out of this wheelchair. My neurologist told me he has seen people recover from this , so I am not giving up hope. PT-OP-C Subjective Start: 03/08/22 17:00 Freq: Status: Active Protocol: Document 03/25/22 10:30 DCW (Rec: 03/25/22 11:17 DCW [id number]) OP-PT Subjective Patient Comments Patient Comments Pt felt good about his prior appointment PT-OP-G Mobility & Gait Start: 03/08/22 17:00 Freq: Status: Active Protocol: Document 03/08/22 11:15 DCW (Rec: 03/11/22 12:14 DCW [id number]) OP Mobility Evaluation Transfers Bed to Chair Transfers Mainly slide-board, was able to transfer w/c to bed SBA using UE Car Transfers Slide board transfer Wheelchair Management Type of Wheelchair Manual w/c PT-OP-H Neuro Start: 03/08/22 17:00 Freq: Status: Active Protocol: Document 03/08/22 11:15 DCW (Rec: 03/11/22 12:14 DCW [id number]) Sensation Evaluation Gross Sensation Gross Sensation Left LE Impaired,Right LE Impaired,Trunk Impaired Sensation Description Paresthesia,Numbness,Tingling, Pins & [place],Burning Dermatome Impairments T10,T11,T12,L1,L2,L3,L4,L5,S1, S2,S3,S4-5 Location Details Right Leg Light Touch Impaired Sharp/Dull Absent Deep Pressure Impaired Hot/Cold Absent Protective Sensation Absent Proprioception (Position) Impaired Kinesthesia (Movement) Impaired Two-Point Discrimination Absent Tactile Localization Absent Left Leg Light Touch Absent Sharp/Dull Absent Deep Pressure Absent Hot/Cold Absent Protective Sensation Absent Proprioception (Position) Absent Kinesthesia (Movement) Impaired Two-Point Discrimination Absent Tactile Localization Absent Deep Tendon Reflex & Clonus Assessment Deep Tendon Reflex Right Achilles Deep Tendon Reflex 0 Absent Right Patellar Deep Tendon Reflex 0 Absent Left Achilles Deep Tendon Reflex 0 Absent Left Patellar Deep Tendon Reflex 0 Absent Muscle Tone Tone Assessment Right Lower Extremity Flexor Tone Description Severe Hypotonicity Extensor Tone Description Severe Hypotonicity Left Lower Extremity Flexor Tone Description Severe Hypotonicity Extensor Tone Description Severe Hypotonicity PT-OP-J Posture/Palpation/Skin Start: 03/08/22 17:00 Freq: Status: Active Protocol: Document 03/08/22 11:15 DCW (Rec: 03/11/22 12:19 DCW [id number]) Posture Evaluation Comments Posture Comments Limitations in sitting due to loss of abdominal motor function, able to use upper extremities to reach out and change center of gravity in order to stabilize PT-OP-Q Treatments Start: 03/08/22 17:00 Freq: Status: Active Protocol: Document 03/25/22 10:30 DCW (Rec: 03/25/22 11:17 DCW [id number]) Cardio Equipment Recumbent Stepper (Sci-Fit) Duration (Minutes) 10 Resistance 2 Seat Position w/c Gym Equipment Therapeutic Ball LTR Exercise Details LTR Ball Size/Color Blue - 45 cm Comments Assisted rotations Therapeutic Exercises Supine Exercises Hamstring Stretch Supine Exercise Name HS stretch Knee to Chest Supine Exercise Name Single KtC Reps/Minutes x5 each, 10' hold Sitting Exercises Shoulder Extension Sitting Exercise Name Extension Side bilateral Resistance Lv 3 Comments Core Stabilization Rows Sitting Exercise Name Rows in w/c Side bilateral Resistance Lv 2 Comments Core stabilization PT-OP-T Assessment and Plan Start: 03/08/22 17:00 Freq: Status: Active Protocol: Document 03/25/22 10:30 DCW (Rec: 03/25/22 11:17 DCW [id number]) Physical Therapy Assessment Impairments Impairments Activity Tolerance,Balance, Coordination,Functional Activities,Functional Mobility ,Gait,Integument,Sensation, Soft Tissue Mobility,Strength, Tone,Transfers Goals Three Impairment Pt does not have any motor function throughout bilateral LEs Intermediate Goal (LTG) Pt to demonstrate 1/5 trace motor contraction in at least one quad in order to begin focus on LE mobility if neural functional return begins. LTG Duration 05/31/22 Two Impairment Pt struggles to perform slideboard car transfer due to upward tilt It Director Goal (LTG) Pt to demonstrate car transfer SBA using slideboard. LTG Duration 05/31/22 One Impairment Pt does not have an appropriate home exercise program Short Term Goal (STG) Pt to be independent and compliant with an appropriate HEP STG Duration 04/19/22 Assessment Summary Assessment Pt once again tolerated very well, was able to demonstrate miniscule movement of third left toe, perhaps 1/5 MMT. Showing some good core stability with shoulder extension/rows. Physical Therapy Plan Frequency and Duration Frequency of Treatment 2x/Week Duration of treatment (weeks) 12 Plan of Care Start Date 03/08/22 Plan of Care End Date 05/31/22 Therapeutic Interventions Therapeutic Interventions Aquatic Therapy,Balance Training,Coordination Training ,Gait Training,Home Exercise Program,Manual Therapy, Neuromuscular Re-education, Orthotic/Prosthetic Management ,Patient/Caregiver Education, Self-Care/Home Management, Sensory Integration,Soft Tissue Mobilization, Therapeutic Activities, Therapeutic Exercises, Wheelchair Management Next Visit Focus/Plan Next Note Type Treatment Note Next Visit Plan Transfers, mobility, LE ROM
--- NOTE | 2022-03-29 11:26 | PT.OTN ---
Current Diagnoses Paraplegia, unspecified (03/29/22) Other specified personal risk factors, not elsewhere classified (03/29/22) Other specified postprocedural states (03/29/22) Physical Therapy Treatment Note PT-OP-A Visit Information Start: 03/08/22 17:00 Freq: Status: Active Protocol: Document 03/29/22 10:30 DCW (Rec: 03/29/22 11:26 DCW [id number]) Out-Patient Physical Therapy Visit Information Visit Information Visit Type Treatment Note Visit Start Time 10:30 Visit Stop Time 11:15 Total Visit Minutes 45 Visit Number 4 Number of GAMEMASTER Visits 0 Evaluation Information Evaluation Date 03/08/22 PT-OP-B Current Condition Start: 03/08/22 17:00 Freq: Status: Active Protocol: Document 03/08/22 11:15 DCW (Rec: 03/08/22 17:11 DCW [id number]) Current Condition History of Current Condition Onset Date 12/16/21 Current Complaints Paraplegia History of Current Condition Pt is a 71 year old male with a very unfortunate medical history. Pt was hiking [place] on 12/16/21 with a friend, finished up, drive back to his friend's home to drop him off, and noticed his left leg was collapsing. By the time pt drove home, both legs were giving out and numb. Pt was suddenly paralized from the waist down, was taken to the ED, and was flown to [facility] on 12/17/21. The following day, he underwent a laminectomy to relieve pressure from the thoracic epidural hematoma which had developed following his hike, which was pressing on his spinal cord. Following surgery , pt was in recovery for a week and was then transfered to rehab for 20 days, when he was finally discharged home in a wheelchair on 01/19/22. Pt reports his surgeon informed him that it is a possibility that he gets some return of nerve function. Has experienced some changes in his right LE, but has no motor function at this time from ~ T10 down. Minimal sensory return on right side, none on left. Pt has been anxious to get in to therapy and do everything he can to help return to function. Pt's , who attended his evaluation, notes that she has been doing a lot of PROM in his legs at night to keep everything moving. Pt can feel some stretching during PROM in his right leg. Pt has additionally already started occupational therapy, and has been practicing some seated stabilization. Pt transfers with a slide board, but notes it is difficult to do into his car, because he has to transfer upward at an incline. Treatment Goals Patient/Caregiver Goals I will do anything possible to get out of this wheelchair. My neurologist told me he has seen people recover from this , so I am not giving up hope. PT-OP-C Subjective Start: 03/08/22 17:00 Freq: Status: Active Protocol: Document 03/29/22 10:30 DCW (Rec: 03/29/22 11:26 DCW [id number]) OP-PT Subjective Patient Comments Patient Comments Week by week, I just seem to have little improvements in sensation. Pt reports he has been noticing some increased low back pain bilaterally, it 's pain, but at least it is something. PT-OP-G Mobility & Gait Start: 03/08/22 17:00 Freq: Status: Active Protocol: Document 03/08/22 11:15 DCW (Rec: 03/11/22 12:14 DCW [id number]) OP Mobility Evaluation Transfers Bed to Chair Transfers Mainly slide-board, was able to transfer w/c to bed SBA using UE Car Transfers Slide board transfer Wheelchair Management Type of Wheelchair Manual w/c PT-OP-H Neuro Start: 03/08/22 17:00 Freq: Status: Active Protocol: Document 03/08/22 11:15 DCW (Rec: 03/11/22 12:14 DCW [id number]) Sensation Evaluation Gross Sensation Gross Sensation Left LE Impaired,Right LE Impaired,Trunk Impaired Sensation Description Paresthesia,Numbness,Tingling, Pins & [place],Burning Dermatome Impairments T10,T11,T12,L1,L2,L3,L4,L5,S1, S2,S3,S4-5 Location Details Right Leg Light Touch Impaired Sharp/Dull Absent Deep Pressure Impaired Hot/Cold Absent Protective Sensation Absent Proprioception (Position) Impaired Kinesthesia (Movement) Impaired Two-Point Discrimination Absent Tactile Localization Absent Left Leg Light Touch Absent Sharp/Dull Absent Deep Pressure Absent Hot/Cold Absent Protective Sensation Absent Proprioception (Position) Absent Kinesthesia (Movement) Impaired Two-Point Discrimination Absent Tactile Localization Absent Deep Tendon Reflex & Clonus Assessment Deep Tendon Reflex Right Achilles Deep Tendon Reflex 0 Absent Right Patellar Deep Tendon Reflex 0 Absent Left Achilles Deep Tendon Reflex 0 Absent Left Patellar Deep Tendon Reflex 0 Absent Muscle Tone Tone Assessment Right Lower Extremity Flexor Tone Description Severe Hypotonicity Extensor Tone Description Severe Hypotonicity Left Lower Extremity Flexor Tone Description Severe Hypotonicity Extensor Tone Description Severe Hypotonicity PT-OP-J Posture/Palpation/Skin Start: 03/08/22 17:00 Freq: Status: Active Protocol: Document 03/08/22 11:15 DCW (Rec: 03/11/22 12:19 DCW [id number]) Posture Evaluation Comments Posture Comments Limitations in sitting due to loss of abdominal motor function, able to use upper extremities to reach out and change center of gravity in order to stabilize PT-OP-Q Treatments Start: 03/08/22 17:00 Freq: Status: Active Protocol: Document 03/29/22 10:30 DCW (Rec: 03/29/22 11:26 DCW [id number]) Cardio Equipment Recumbent Stepper (Sci-Fit) Duration (Minutes) 10 Resistance 2 Seat Position w/c Gym Equipment Therapeutic Ball LTR Exercise Details LTR Ball Size/Color Blue - 45 cm Comments Assisted rotations Therapeutic Exercises Supine Exercises SLR Supine Exercise Name SLR /c strap Side bilateral Hamstring Stretch Supine Exercise Name HS stretch Knee to Chest Supine Exercise Name Single KtC Reps/Minutes x5 each, 10' hold Sitting Exercises Shoulder Extension Sitting Exercise Name Extension Side bilateral Resistance Lv 3 Comments Core Stabilization Rows Sitting Exercise Name Rows in w/c Side bilateral Resistance Lv 3 Comments Core stabilization PT-OP-T Assessment and Plan Start: 03/08/22 17:00 Freq: Status: Active Protocol: Document 03/29/22 10:30 DCW (Rec: 03/29/22 11:26 DCW [id number]) Physical Therapy Assessment Impairments Impairments Activity Tolerance,Balance, Coordination,Functional Activities,Functional Mobility ,Gait,Integument,Sensation, Soft Tissue Mobility,Strength, Tone,Transfers Goals Three Impairment Pt does not have any motor function throughout bilateral LEs Chcf Goal (LTG) Pt to demonstrate 1/5 trace motor contraction in at least one quad in order to begin focus on LE mobility if neural functional return begins. LTG Duration 05/31/22 Two Impairment Pt struggles to perform slideboard car transfer due to upward tilt Education Liaison Goal (LTG) Pt to demonstrate car transfer SBA using slideboard. LTG Duration 05/31/22 One Impairment Pt does not have an appropriate home exercise program Short Term Goal (STG) Pt to be independent and compliant with an appropriate HEP STG Duration 04/19/22 Assessment Summary Assessment Pt doing well, feeling happy with recent sensory changes. Happy with ongoing POC. Physical Therapy Plan Frequency and Duration Frequency of Treatment 2x/Week Duration of treatment (weeks) 12 Plan of Care Start Date 03/08/22 Plan of Care End Date 05/31/22 Therapeutic Interventions Therapeutic Interventions Aquatic Therapy,Balance Training,Coordination Training ,Gait Training,Home Exercise Program,Manual Therapy, Neuromuscular Re-education, Orthotic/Prosthetic Management ,Patient/Caregiver Education, Self-Care/Home Management, Sensory Integration,Soft Tissue Mobilization, Therapeutic Activities, Therapeutic Exercises, Wheelchair Management Next Visit Focus/Plan Next Note Type Treatment Note Next Visit Plan Transfers, mobility, LE ROM
--- NOTE | 2022-04-02 10:29 | PT.OTN ---
Current Diagnoses Paraplegia, unspecified (04/02/22) Other specified personal risk factors, not elsewhere classified (04/02/22) Other specified postprocedural states (04/02/22) Physical Therapy Treatment Note PT-OP-A Visit Information Start: 03/08/22 17:00 Freq: Status: Active Protocol: Document 04/02/22 09:50 DCW (Rec: 04/02/22 10:29 DCW [id number]) Out-Patient Physical Therapy Visit Information Visit Information Visit Type Treatment Note Visit Start Time 09:50 Visit Stop Time 10:30 Total Visit Minutes 40 Visit Number 5 Number of COMMUNITY MARKETING COORDINATOR Visits 0 Evaluation Information Evaluation Date 03/08/22 PT-OP-B Current Condition Start: 03/08/22 17:00 Freq: Status: Active Protocol: Document 03/08/22 11:15 DCW (Rec: 03/08/22 17:11 DCW [id number]) Current Condition History of Current Condition Onset Date 12/16/21 Current Complaints Paraplegia History of Current Condition Pt is a 71 year old male with a very unfortunate medical history. Pt was hiking [employer] on 12/16/21 with a friend, finished up, drive back to his friend's home to drop him off, and noticed his left leg was collapsing. By the time pt drove home, both legs were giving out and numb. Pt was suddenly paralized from the waist down, was taken to the ED, and was flown to [facility] on 12/17/21. The following day, he underwent a laminectomy to relieve pressure from the thoracic epidural hematoma which had developed following his hike, which was pressing on his spinal cord. Following surgery , pt was in recovery for a week and was then transfered to rehab for 20 days, when he was finally discharged home in a wheelchair on 01/19/22. Pt reports his surgeon informed him that it is a possibility that he gets some return of nerve function. Has experienced some changes in his right LE, but has no motor function at this time from ~ T10 down. Minimal sensory return on right side, none on left. Pt has been anxious to get in to therapy and do everything he can to help return to function. Pt's , who attended his evaluation, notes that she has been doing a lot of PROM in his legs at night to keep everything moving. Pt can feel some stretching during PROM in his right leg. Pt has additionally already started occupational therapy, and has been practicing some seated stabilization. Pt transfers with a slide board, but notes it is difficult to do into his car, because he has to transfer upward at an incline. Treatment Goals Patient/Caregiver Goals I will do anything possible to get out of this wheelchair. My neurologist told me he has seen people recover from this , so I am not giving up hope. PT-OP-C Subjective Start: 03/08/22 17:00 Freq: Status: Active Protocol: Document 04/02/22 09:50 DCW (Rec: 04/02/22 10:29 DCW [id number]) OP-PT Subjective Patient Comments Patient Comments Pt reports he has been looking into clinical trials, but so far has not qualified for any of them. PT-OP-G Mobility & Gait Start: 03/08/22 17:00 Freq: Status: Active Protocol: Document 03/08/22 11:15 DCW (Rec: 03/11/22 12:14 DCW [id number]) OP Mobility Evaluation Transfers Bed to Chair Transfers Mainly slide-board, was able to transfer w/c to bed SBA using UE Car Transfers Slide board transfer Wheelchair Management Type of Wheelchair Manual w/c PT-OP-H Neuro Start: 03/08/22 17:00 Freq: Status: Active Protocol: Document 03/08/22 11:15 DCW (Rec: 03/11/22 12:14 DCW [id number]) Sensation Evaluation Gross Sensation Gross Sensation Left LE Impaired,Right LE Impaired,Trunk Impaired Sensation Description Paresthesia,Numbness,Tingling, Pins & [place],Burning Dermatome Impairments T10,T11,T12,L1,L2,L3,L4,L5,S1, S2,S3,S4-5 Location Details Right Leg Light Touch Impaired Sharp/Dull Absent Deep Pressure Impaired Hot/Cold Absent Protective Sensation Absent Proprioception (Position) Impaired Kinesthesia (Movement) Impaired Two-Point Discrimination Absent Tactile Localization Absent Left Leg Light Touch Absent Sharp/Dull Absent Deep Pressure Absent Hot/Cold Absent Protective Sensation Absent Proprioception (Position) Absent Kinesthesia (Movement) Impaired Two-Point Discrimination Absent Tactile Localization Absent Deep Tendon Reflex & Clonus Assessment Deep Tendon Reflex Right Achilles Deep Tendon Reflex 0 Absent Right Patellar Deep Tendon Reflex 0 Absent Left Achilles Deep Tendon Reflex 0 Absent Left Patellar Deep Tendon Reflex 0 Absent Muscle Tone Tone Assessment Right Lower Extremity Flexor Tone Description Severe Hypotonicity Extensor Tone Description Severe Hypotonicity Left Lower Extremity Flexor Tone Description Severe Hypotonicity Extensor Tone Description Severe Hypotonicity PT-OP-J Posture/Palpation/Skin Start: 03/08/22 17:00 Freq: Status: Active Protocol: Document 03/08/22 11:15 DCW (Rec: 03/11/22 12:19 DCW [id number]) Posture Evaluation Comments Posture Comments Limitations in sitting due to loss of abdominal motor function, able to use upper extremities to reach out and change center of gravity in order to stabilize PT-OP-Q Treatments Start: 03/08/22 17:00 Freq: Status: Active Protocol: Document 04/02/22 09:50 DCW (Rec: 04/02/22 10:29 DCW [id number]) Cardio Equipment Recumbent Elliptical (Biodex) Duration (Minutes) 10 Resistance 3 Seat Position 10 Other Slide-board transfer, Max Ax1 Therapeutic Exercises Sitting Exercises Biceps Curls Sitting Exercise Name Biceps Curls Side bilateral Resistance 10# Chest Press Sitting Exercise Name Seated Chest Press Side bilateral Resistance 5# /c PVC Abduction Sitting Exercise Name Shoulder Abduction Side bilateral Resistance Lv 4 Flexion Sitting Exercise Name Shoulder Flexion Side bilateral Resistance Lv 4 Shoulder Extension Sitting Exercise Name Extension Side bilateral Resistance Lv 4 Comments Core Stabilization Rows Sitting Exercise Name Rows in w/c Side bilateral Resistance Lv 4 Comments Core stabilization PT-OP-T Assessment and Plan Start: 03/08/22 17:00 Freq: Status: Active Protocol: Document 04/02/22 09:50 DCW (Rec: 04/02/22 10:29 DCW [id number]) Physical Therapy Assessment Impairments Impairments Activity Tolerance,Balance, Coordination,Functional Activities,Functional Mobility ,Gait,Integument,Sensation, Soft Tissue Mobility,Strength, Tone,Transfers Goals Three Impairment Pt does not have any motor function throughout bilateral LEs Production Painter Goal (LTG) Pt to demonstrate 1/5 trace motor contraction in at least one quad in order to begin focus on LE mobility if neural functional return begins. LTG Duration 05/31/22 Two Impairment Pt struggles to perform slideboard car transfer due to upward tilt Production Painter Goal (LTG) Pt to demonstrate car transfer SBA using slideboard. LTG Duration 05/31/22 One Impairment Pt does not have an appropriate home exercise program Short Term Goal (STG) Pt to be independent and compliant with an appropriate HEP STG Duration 04/19/22 Assessment Summary Assessment Focused mainly on UE strengthening today, pt feels his therapy sessions are very productive. Pt continues to be very optimistic that his LE function will return. Physical Therapy Plan Frequency and Duration Frequency of Treatment 2x/Week Duration of treatment (weeks) 12 Plan of Care Start Date 03/08/22 Plan of Care End Date 05/31/22 Therapeutic Interventions Therapeutic Interventions Aquatic Therapy,Balance Training,Coordination Training ,Gait Training,Home Exercise Program,Manual Therapy, Neuromuscular Re-education, Orthotic/Prosthetic Management ,Patient/Caregiver Education, Self-Care/Home Management, Sensory Integration,Soft Tissue Mobilization, Therapeutic Activities, Therapeutic Exercises, Wheelchair Management Next Visit Focus/Plan Next Note Type Treatment Note Next Visit Plan Transfers, mobility, LE ROM
--- NOTE | 2022-04-10 15:19 | PT.OTN ---
Current Diagnoses Paraplegia, unspecified (04/10/22) Other specified personal risk factors, not elsewhere classified (04/10/22) Other specified postprocedural states (04/10/22) Physical Therapy Treatment Note PT-OP-A Visit Information Start: 03/08/22 17:00 Freq: Status: Active Protocol: Document 04/10/22 14:32 DCW (Rec: 04/10/22 15:19 DCW [id number]) Out-Patient Physical Therapy Visit Information Visit Information Visit Type Treatment Note Visit Start Time 14:32 Visit Stop Time 15:15 Total Visit Minutes 43 Visit Number 6 Number of HI LIFT OPERATOR Visits 0 Evaluation Information Evaluation Date 03/08/22 PT-OP-B Current Condition Start: 03/08/22 17:00 Freq: Status: Active Protocol: Document 03/08/22 11:15 DCW (Rec: 03/08/22 17:11 DCW [id number]) Current Condition History of Current Condition Onset Date 12/16/21 Current Complaints Paraplegia History of Current Condition Pt is a 71 year old male with a very unfortunate medical history. Pt was hiking [employer] on 12/16/21 with a friend, finished up, drive back to his friend's home to drop him off, and noticed his left leg was collapsing. By the time pt drove home, both legs were giving out and numb. Pt was suddenly paralized from the waist down, was taken to the ED, and was flown to [facility] on 12/17/21. The following day, he underwent a laminectomy to relieve pressure from the thoracic epidural hematoma which had developed following his hike, which was pressing on his spinal cord. Following surgery , pt was in recovery for a week and was then transfered to rehab for 20 days, when he was finally discharged home in a wheelchair on 01/19/22. Pt reports his surgeon informed him that it is a possibility that he gets some return of nerve function. Has experienced some changes in his right LE, but has no motor function at this time from ~ T10 down. Minimal sensory return on right side, none on left. Pt has been anxious to get in to therapy and do everything he can to help return to function. Pt's , who attended his evaluation, notes that she has been doing a lot of PROM in his legs at night to keep everything moving. Pt can feel some stretching during PROM in his right leg. Pt has additionally already started occupational therapy, and has been practicing some seated stabilization. Pt transfers with a slide board, but notes it is difficult to do into his car, because he has to transfer upward at an incline. Treatment Goals Patient/Caregiver Goals I will do anything possible to get out of this wheelchair. My neurologist told me he has seen people recover from this , so I am not giving up hope. PT-OP-C Subjective Start: 03/08/22 17:00 Freq: Status: Active Protocol: Document 04/10/22 14:32 DCW (Rec: 04/10/22 15:19 DCW [id number]) OP-PT Subjective Patient Comments Patient Comments Pt feeling good, had a good Thanksgiving. Notes no change in sensation recently. PT-OP-G Mobility & Gait Start: 03/08/22 17:00 Freq: Status: Active Protocol: Document 03/08/22 11:15 DCW (Rec: 03/11/22 12:14 DCW [id number]) OP Mobility Evaluation Transfers Bed to Chair Transfers Mainly slide-board, was able to transfer w/c to bed SBA using UE Car Transfers Slide board transfer Wheelchair Management Type of Wheelchair Manual w/c PT-OP-H Neuro Start: 03/08/22 17:00 Freq: Status: Active Protocol: Document 03/08/22 11:15 DCW (Rec: 03/11/22 12:14 DCW [id number]) Sensation Evaluation Gross Sensation Gross Sensation Left LE Impaired,Right LE Impaired,Trunk Impaired Sensation Description Paresthesia,Numbness,Tingling, Pins & [place],Burning Dermatome Impairments T10,T11,T12,L1,L2,L3,L4,L5,S1, S2,S3,S4-5 Location Details Right Leg Light Touch Impaired Sharp/Dull Absent Deep Pressure Impaired Hot/Cold Absent Protective Sensation Absent Proprioception (Position) Impaired Kinesthesia (Movement) Impaired Two-Point Discrimination Absent Tactile Localization Absent Left Leg Light Touch Absent Sharp/Dull Absent Deep Pressure Absent Hot/Cold Absent Protective Sensation Absent Proprioception (Position) Absent Kinesthesia (Movement) Impaired Two-Point Discrimination Absent Tactile Localization Absent Deep Tendon Reflex & Clonus Assessment Deep Tendon Reflex Right Achilles Deep Tendon Reflex 0 Absent Right Patellar Deep Tendon Reflex 0 Absent Left Achilles Deep Tendon Reflex 0 Absent Left Patellar Deep Tendon Reflex 0 Absent Muscle Tone Tone Assessment Right Lower Extremity Flexor Tone Description Severe Hypotonicity Extensor Tone Description Severe Hypotonicity Left Lower Extremity Flexor Tone Description Severe Hypotonicity Extensor Tone Description Severe Hypotonicity PT-OP-J Posture/Palpation/Skin Start: 03/08/22 17:00 Freq: Status: Active Protocol: Document 03/08/22 11:15 DCW (Rec: 03/11/22 12:19 DCW [id number]) Posture Evaluation Comments Posture Comments Limitations in sitting due to loss of abdominal motor function, able to use upper extremities to reach out and change center of gravity in order to stabilize PT-OP-Q Treatments Start: 03/08/22 17:00 Freq: Status: Active Protocol: Document 04/10/22 14:32 DCW (Rec: 04/10/22 15:19 DCW [id number]) Cardio Equipment Recumbent Elliptical (BiodWhistlestop) Duration (Minutes) 10 Resistance 3 Seat Position 10 Other Slide-board transfer, Min Ax1 Therapeutic Exercises Supine Exercises Hamstring Stretch Supine Exercise Name HS stretch Knee to Chest Supine Exercise Name Single KtC Reps/Minutes x5 each, 10' hold Sitting Exercises Seated crunch Sitting Exercise Name Eccentric crunch vs T-band Resistance Lv 2 Comments Requires UE assist for concentric motion Biceps Curls Sitting Exercise Name Biceps Curls Side bilateral Resistance 10# Chest Press Sitting Exercise Name Seated Chest Press Side bilateral Resistance 5# /c PVC (Increase next) Shoulder Extension Sitting Exercise Name Extension Side bilateral Resistance Lv 4 Comments Core Stabilization PT-OP-T Assessment and Plan Start: 03/08/22 17:00 Freq: Status: Active Protocol: Document 04/10/22 14:32 DCW (Rec: 04/10/22 15:19 DCW [id number]) Physical Therapy Assessment Impairments Impairments Activity Tolerance,Balance, Coordination,Functional Activities,Functional Mobility ,Gait,Integument,Sensation, Soft Tissue Mobility,Strength, Tone,Transfers Goals Three Impairment Pt does not have any motor function throughout bilateral LEs Senior Care Goal (LTG) Pt to demonstrate 1/5 trace motor contraction in at least one quad in order to begin focus on LE mobility if neural functional return begins. LTG Duration 05/31/22 Two Impairment Pt struggles to perform slideboard car transfer due to upward tilt Senior Care Goal (LTG) Pt to demonstrate car transfer SBA using slideboard. LTG Duration 05/31/22 One Impairment Pt does not have an appropriate home exercise program Short Term Goal (STG) Pt to be independent and compliant with an appropriate HEP STG Duration 04/19/22 Assessment Summary Assessment Focused mainly on UE strengthening today, pt feels his therapy sessions are very productive. Pt continues to be very optimistic that his LE function will return. Physical Therapy Plan Frequency and Duration Frequency of Treatment 2x/Week Duration of treatment (weeks) 12 Plan of Care Start Date 03/08/22 Plan of Care End Date 05/31/22 Therapeutic Interventions Therapeutic Interventions Aquatic Therapy,Balance Training,Coordination Training ,Gait Training,Home Exercise Program,Manual Therapy, Neuromuscular Re-education, Orthotic/Prosthetic Management ,Patient/Caregiver Education, Self-Care/Home Management, Sensory Integration,Soft Tissue Mobilization, Therapeutic Activities, Therapeutic Exercises, Wheelchair Management Next Visit Focus/Plan Next Note Type Treatment Note Next Visit Plan Transfers, mobility, LE ROM
--- NOTE | 2022-04-12 15:14 | PT.OTN ---
Current Diagnoses Paraplegia, unspecified (04/12/22) Other specified personal risk factors, not elsewhere classified (04/12/22) Other specified postprocedural states (04/12/22) Physical Therapy Treatment Note PT-OP-A Visit Information Start: 03/08/22 17:00 Freq: Status: Active Protocol: Document 04/12/22 14:32 DCW (Rec: 04/12/22 15:14 DCW [id number]) Out-Patient Physical Therapy Visit Information Visit Information Visit Type Treatment Note Visit Start Time 14:32 Visit Stop Time 15:15 Total Visit Minutes 43 Visit Number 7 Number of ACCOUNTS RECEIVABLE COLLECTOR Visits 0 Evaluation Information Evaluation Date 03/08/22 PT-OP-B Current Condition Start: 03/08/22 17:00 Freq: Status: Active Protocol: Document 03/08/22 11:15 DCW (Rec: 03/08/22 17:11 DCW [id number]) Current Condition History of Current Condition Onset Date 12/16/21 Current Complaints Paraplegia History of Current Condition Pt is a 71 year old male with a very unfortunate medical history. Pt was hiking [employer] on 12/16/21 with a friend, finished up, drive back to his friend's home to drop him off, and noticed his left leg was collapsing. By the time pt drove home, both legs were giving out and numb. Pt was suddenly paralized from the waist down, was taken to the ED, and was flown to [facility] on 12/17/21. The following day, he underwent a laminectomy to relieve pressure from the thoracic epidural hematoma which had developed following his hike, which was pressing on his spinal cord. Following surgery , pt was in recovery for a week and was then transfered to rehab for 20 days, when he was finally discharged home in a wheelchair on 01/19/22. Pt reports his surgeon informed him that it is a possibility that he gets some return of nerve function. Has experienced some changes in his right LE, but has no motor function at this time from ~ T10 down. Minimal sensory return on right side, none on left. Pt has been anxious to get in to therapy and do everything he can to help return to function. Pt's , who attended his evaluation, notes that she has been doing a lot of PROM in his legs at night to keep everything moving. Pt can feel some stretching during PROM in his right leg. Pt has additionally already started occupational therapy, and has been practicing some seated stabilization. Pt transfers with a slide board, but notes it is difficult to do into his car, because he has to transfer upward at an incline. Treatment Goals Patient/Caregiver Goals I will do anything possible to get out of this wheelchair. My neurologist told me he has seen people recover from this , so I am not giving up hope. PT-OP-C Subjective Start: 03/08/22 17:00 Freq: Status: Active Protocol: Document 04/12/22 14:32 DCW (Rec: 04/12/22 15:14 DCW [id number]) OP-PT Subjective Patient Comments Patient Comments Pt ready to get to work. PT-OP-G Mobility & Gait Start: 03/08/22 17:00 Freq: Status: Active Protocol: Document 03/08/22 11:15 DCW (Rec: 03/11/22 12:14 DCW [id number]) OP Mobility Evaluation Transfers Bed to Chair Transfers Mainly slide-board, was able to transfer w/c to bed SBA using UE Car Transfers Slide board transfer Wheelchair Management Type of Wheelchair Manual w/c PT-OP-H Neuro Start: 03/08/22 17:00 Freq: Status: Active Protocol: Document 03/08/22 11:15 DCW (Rec: 03/11/22 12:14 DCW [id number]) Sensation Evaluation Gross Sensation Gross Sensation Left LE Impaired,Right LE Impaired,Trunk Impaired Sensation Description Paresthesia,Numbness,Tingling, Pins & Valencia,Burning Dermatome Impairments T10,T11,T12,L1,L2,L3,L4,L5,S1, S2,S3,S4-5 Location Details Right Leg Light Touch Impaired Sharp/Dull Absent Deep Pressure Impaired Hot/Cold Absent Protective Sensation Absent Proprioception (Position) Impaired Kinesthesia (Movement) Impaired Two-Point Discrimination Absent Tactile Localization Absent Left Leg Light Touch Absent Sharp/Dull Absent Deep Pressure Absent Hot/Cold Absent Protective Sensation Absent Proprioception (Position) Absent Kinesthesia (Movement) Impaired Two-Point Discrimination Absent Tactile Localization Absent Deep Tendon Reflex & Clonus Assessment Deep Tendon Reflex Right Achilles Deep Tendon Reflex 0 Absent Right Patellar Deep Tendon Reflex 0 Absent Left Achilles Deep Tendon Reflex 0 Absent Left Patellar Deep Tendon Reflex 0 Absent Muscle Tone Tone Assessment Right Lower Extremity Flexor Tone Description Severe Hypotonicity Extensor Tone Description Severe Hypotonicity Left Lower Extremity Flexor Tone Description Severe Hypotonicity Extensor Tone Description Severe Hypotonicity PT-OP-J Posture/Palpation/Skin Start: 03/08/22 17:00 Freq: Status: Active Protocol: Document 03/08/22 11:15 DCW (Rec: 03/11/22 12:19 DCW [id number]) Posture Evaluation Comments Posture Comments Limitations in sitting due to loss of abdominal motor function, able to use upper extremities to reach out and change center of gravity in order to stabilize PT-OP-Q Treatments Start: 03/08/22 17:00 Freq: Status: Active Protocol: Document 04/12/22 14:32 DCW (Rec: 04/12/22 15:14 DCW [id number]) Cardio Equipment Recumbent Elliptical (Biodex) Duration (Minutes) 10 Resistance 3 Seat Position 10 Other w/c<->Biodex transfer using UEs, therapist Mod->Max Ax1 Therapeutic Exercises Supine Exercises Hamstring Stretch Supine Exercise Name HS stretch Side bilateral Knee to Chest Supine Exercise Name Single KtC Side bilateral Reps/Minutes x5 each, 10' hold Sitting Exercises Biceps Curls Sitting Exercise Name Biceps Curls Side bilateral Resistance 10# Chest Press Sitting Exercise Name Seated Chest Press Side bilateral Resistance 10# /c PVC Shoulder Extension Sitting Exercise Name Extension Side bilateral Resistance Lv 4 Comments Core Stabilization Rows Sitting Exercise Name Rows in w/c Side bilateral Resistance Lv 4 Comments Core stabilization PT-OP-T Assessment and Plan Start: 03/08/22 17:00 Freq: Status: Active Protocol: Document 04/12/22 14:32 DCW (Rec: 04/12/22 15:14 DCW [id number]) Physical Therapy Assessment Impairments Impairments Activity Tolerance,Balance, Coordination,Functional Activities,Functional Mobility ,Gait,Integument,Sensation, Soft Tissue Mobility,Strength, Tone,Transfers Goals Three Impairment Pt does not have any motor function throughout bilateral LEs Mcc Goal (LTG) Pt to demonstrate 1/5 trace motor contraction in at least one quad in order to begin focus on LE mobility if neural functional return begins. LTG Duration 05/31/22 Two Impairment Pt struggles to perform slideboard car transfer due to upward tilt Mcc Goal (LTG) Pt to demonstrate car transfer SBA using slideboard. LTG Duration 05/31/22 One Impairment Pt does not have an appropriate home exercise program Short Term Goal (STG) Pt to be independent and compliant with an appropriate HEP STG Duration 04/19/22 Assessment Summary Assessment Pt feeling good with stretching and getting up out of his chair more often, improved transfers to Biodex, UE and therapist assist Mod Ax1 for transfer, pt typically struggles more with slideboard due to incline. Physical Therapy Plan Frequency and Duration Frequency of Treatment 2x/Week Duration of treatment (weeks) 12 Plan of Care Start Date 03/08/22 Plan of Care End Date 05/31/22 Therapeutic Interventions Therapeutic Interventions Aquatic Therapy,Balance Training,Coordination Training ,Gait Training,Home Exercise Program,Manual Therapy, Neuromuscular Re-education, Orthotic/Prosthetic Management ,Patient/Caregiver Education, Self-Care/Home Management, Sensory Integration,Soft Tissue Mobilization, Therapeutic Activities, Therapeutic Exercises, Wheelchair Management Next Visit Focus/Plan Next Note Type Treatment Note Next Visit Plan Transfers, mobility, LE ROM
--- NOTE | 2022-04-16 13:04 | PT.OTN ---
Current Diagnoses Paraplegia, unspecified (04/16/22) Other specified personal risk factors, not elsewhere classified (04/16/22) Other specified postprocedural states (04/16/22) Physical Therapy Treatment Note PT-OP-A Visit Information Start: 03/08/22 17:00 Freq: Status: Active Protocol: Document 04/16/22 12:08 TS (Rec: 04/16/22 13:19 TS [id number]) Out-Patient Physical Therapy Visit Information Visit Information Visit Type Treatment Note Visit Note SPTA [place] [facility] treatment under the supervision of TIANNA Quach. Visit Start Time 12:15 Visit Stop Time 13:04 Total Visit Minutes 49 Visit Number 8 Number of CONVEX GRINDER OPERATOR Visits 1 PT-OP-B Current Condition Start: 03/08/22 17:00 Freq: Status: Active Protocol: Document 03/08/22 11:15 DCW (Rec: 03/08/22 17:11 DCW [id number]) Current Condition History of Current Condition Onset Date 12/16/21 Current Complaints Paraplegia History of Current Condition Pt is a 71 year old male with a very unfortunate medical history. Pt was hiking [place] on 12/16/21 with a friend, finished up, drive back to his friend's home to drop him off, and noticed his left leg was collapsing. By the time pt drove home, both legs were giving out and numb. Pt was suddenly paralized from the waist down, was taken to the ED, and was flown to [facility] on 12/17/21. The following day, he underwent a laminectomy to relieve pressure from the thoracic epidural hematoma which had developed following his hike, which was pressing on his spinal cord. Following surgery , pt was in recovery for a week and was then transfered to rehab for 20 days, when he was finally discharged home in a wheelchair on 01/19/22. Pt reports his surgeon informed him that it is a possibility that he gets some return of nerve function. Has experienced some changes in his right LE, but has no motor function at this time from ~ T10 down. Minimal sensory return on right side, none on left. Pt has been anxious to get in to therapy and do everything he can to help return to function. Pt's , who attended his evaluation, notes that she has been doing a lot of PROM in his legs at night to keep everything moving. Pt can feel some stretching during PROM in his right leg. Pt has additionally already started occupational therapy, and has been practicing some seated stabilization. Pt transfers with a slide board, but notes it is difficult to do into his car, because he has to transfer upward at an incline. Treatment Goals Patient/Caregiver Goals I will do anything possible to get out of this wheelchair. My neurologist told me he has seen people recover from this , so I am not giving up hope. PT-OP-C Subjective Start: 03/08/22 17:00 Freq: Status: Active Protocol: Document 04/16/22 12:08 TS (Rec: 04/16/22 13:19 TS [id number]) OP-PT Subjective Patient Comments Patient Comments Pt is very motivated get out of his chair and back to walking. Reports some increased movement in toes. PT-OP-G Mobility & Gait Start: 03/08/22 17:00 Freq: Status: Active Protocol: Document 03/08/22 11:15 DCW (Rec: 03/11/22 12:14 DCW [id number]) OP Mobility Evaluation Transfers Bed to Chair Transfers Mainly slide-board, was able to transfer w/c to bed SBA using UE Car Transfers Slide board transfer Wheelchair Management Type of Wheelchair Manual w/c PT-OP-H Neuro Start: 03/08/22 17:00 Freq: Status: Active Protocol: Document 03/08/22 11:15 DCW (Rec: 03/11/22 12:14 DCW [id number]) Sensation Evaluation Gross Sensation Gross Sensation Left LE Impaired,Right LE Impaired,Trunk Impaired Sensation Description Paresthesia,Numbness,Tingling, Pins & Brohman,Burning Dermatome Impairments T10,T11,T12,L1,L2,L3,L4,L5,S1, S2,S3,S4-5 Location Details Right Leg Light Touch Impaired Sharp/Dull Absent Deep Pressure Impaired Hot/Cold Absent Protective Sensation Absent Proprioception (Position) Impaired Kinesthesia (Movement) Impaired Two-Point Discrimination Absent Tactile Localization Absent Left Leg Light Touch Absent Sharp/Dull Absent Deep Pressure Absent Hot/Cold Absent Protective Sensation Absent Proprioception (Position) Absent Kinesthesia (Movement) Impaired Two-Point Discrimination Absent Tactile Localization Absent Deep Tendon Reflex & Clonus Assessment Deep Tendon Reflex Right Achilles Deep Tendon Reflex 0 Absent Right Patellar Deep Tendon Reflex 0 Absent Left Achilles Deep Tendon Reflex 0 Absent Left Patellar Deep Tendon Reflex 0 Absent Muscle Tone Tone Assessment Right Lower Extremity Flexor Tone Description Severe Hypotonicity Extensor Tone Description Severe Hypotonicity Left Lower Extremity Flexor Tone Description Severe Hypotonicity Extensor Tone Description Severe Hypotonicity PT-OP-J Posture/Palpation/Skin Start: 03/08/22 17:00 Freq: Status: Active Protocol: Document 03/08/22 11:15 DCW (Rec: 03/11/22 12:19 DCW [id number]) Posture Evaluation Comments Posture Comments Limitations in sitting due to loss of abdominal motor function, able to use upper extremities to reach out and change center of gravity in order to stabilize PT-OP-Q Treatments Start: 03/08/22 17:00 Freq: Status: Active Protocol: Document 04/16/22 12:08 TS (Rec: 04/16/22 13:19 TS [id number]) Cardio Equipment Recumbent Elliptical (Biodex) Duration (Minutes) 10 Resistance 3 Seat Position 10 Other w/c<->Biodex transfer using UEs, MaxA x1, 480 steps Therapeutic Exercises Sitting Exercises Bicep curls to overhead press Sitting Exercise Name 10#DB>5#DB Equipment Used mirror for self trunk alignment Reps/Minutes 2x10 Comments Cues for slow eccentric control Seated crunch Sitting Exercise Name With DB Equipment Used 3#DB Reps/Minutes 2x10 Comments Cues for slow eccentric control on way back, can feel abs working Triceps press-up Sitting Exercise Name Triceps press-up Side bilateral Reps/Minutes 1x5 Comments Assist with holding down wood bars, blocking of knees. Therapeutic Activity Therapeutic Activity Slide Board Transfer Name To and from black mat table Reps/Minutes 2 Comments Pt SBA for slideboard transfer . PT-OP-T Assessment and Plan Start: 03/08/22 17:00 Freq: Status: Active Protocol: Document 04/16/22 12:08 TS (Rec: 04/16/22 13:19 TS [id number]) Physical Therapy Assessment Goals Three Impairment Pt does not have any motor function throughout bilateral LEs Senior Hadoop Developer Goal (LTG) Pt to demonstrate 1/5 trace motor contraction in at least one quad in order to begin focus on LE mobility if neural functional return begins. LTG Duration 05/31/22 Two Impairment Pt struggles to perform slideboard car transfer due to upward tilt Long-Term Goal (LTG) Pt to demonstrate car transfer SBA using slideboard. LTG Duration 05/31/22 One Impairment Pt does not have an appropriate home exercise program Short Term Goal (STG) Pt to be independent and compliant with an appropriate HEP STG Duration 04/19/22 Assessment Summary Assessment Pt required MaxA x1 to Biodex from W/C, MaxA with LEs onto peddles. Pt performed 480ft with RPM 35-40 on Biodex this treatment. Pt feeling stronger ab contraction with 3#DB with seated crunch. He progressed tricep press ups into sitting EOtable with assist from therapist to maintain balance of grab bars. Pt will continue to benefit from continued intervention to imporve UE/LE strength, functional transfers and LE mobility. Physical Therapy Plan Frequency and Duration Frequency of Treatment 2x/Week Duration of treatment (weeks) 12 Plan of Care Start Date 03/08/22 Plan of Care End Date 05/31/22 Therapeutic Interventions Therapeutic Interventions Aquatic Therapy,Balance Training,Coordination Training ,Gait Training,Home Exercise Program,Manual Therapy, Neuromuscular Re-education, Orthotic/Prosthetic Management ,Patient/Caregiver Education, Self-Care/Home Management, Sensory Integration,Soft Tissue Mobilization, Therapeutic Activities, Therapeutic Exercises, Wheelchair Management Next Visit Focus/Plan Next Note Type Treatment Note Next Visit Plan Assess tricep press up in sitting and seated crunch with 3#DB, toe movement that pt reported at start of treatment . POC: Transfers, mobility, LE ROM
--- NOTE | 2022-04-18 12:46 | PT.OTN ---
Current Diagnoses Paraplegia, unspecified (04/18/22) Other specified personal risk factors, not elsewhere classified (04/18/22) Other specified postprocedural states (04/18/22) Physical Therapy Treatment Note PT-OP-A Visit Information Start: 03/08/22 17:00 Freq: Status: Active Protocol: Document 04/18/22 12:00 DCW (Rec: 04/18/22 12:46 DCW [id number]) Out-Patient Physical Therapy Visit Information Visit Information Visit Type Treatment Note Visit Start Time 12:00 Visit Stop Time 12:45 Total Visit Minutes 45 Visit Number 9 Number of LAST WAXER Visits 0 Evaluation Information Evaluation Date 03/08/22 PT-OP-B Current Condition Start: 03/08/22 17:00 Freq: Status: Active Protocol: Document 03/08/22 11:15 DCW (Rec: 03/08/22 17:11 DCW [id number]) Current Condition History of Current Condition Onset Date 12/16/21 Current Complaints Paraplegia History of Current Condition Pt is a 71 year old male with a very unfortunate medical history. Pt was hiking [employer] on 12/16/21 with a friend, finished up, drive back to his friend's home to drop him off, and noticed his left leg was collapsing. By the time pt drove home, both legs were giving out and numb. Pt was suddenly paralized from the waist down, was taken to the ED, and was flown to [facility] on 12/17/21. The following day, he underwent a laminectomy to relieve pressure from the thoracic epidural hematoma which had developed following his hike, which was pressing on his spinal cord. Following surgery , pt was in recovery for a week and was then transfered to rehab for 20 days, when he was finally discharged home in a wheelchair on 01/19/22. Pt reports his surgeon informed him that it is a possibility that he gets some return of nerve function. Has experienced some changes in his right LE, but has no motor function at this time from ~ T10 down. Minimal sensory return on right side, none on left. Pt has been anxious to get in to therapy and do everything he can to help return to function. Pt's , who attended his evaluation, notes that she has been doing a lot of PROM in his legs at night to keep everything moving. Pt can feel some stretching during PROM in his right leg. Pt has additionally already started occupational therapy, and has been practicing some seated stabilization. Pt transfers with a slide board, but notes it is difficult to do into his car, because he has to transfer upward at an incline. Treatment Goals Patient/Caregiver Goals I will do anything possible to get out of this wheelchair. My neurologist told me he has seen people recover from this , so I am not giving up hope. PT-OP-C Subjective Start: 03/08/22 17:00 Freq: Status: Active Protocol: Document 04/18/22 12:00 DCW (Rec: 04/18/22 12:46 DCW [id number]) OP-PT Subjective Patient Comments Patient Comments Pt notes that he is getting to the end of his scheduled appointments, and would like more. PT-OP-G Mobility & Gait Start: 03/08/22 17:00 Freq: Status: Active Protocol: Document 03/08/22 11:15 DCW (Rec: 03/11/22 12:14 DCW [id number]) OP Mobility Evaluation Transfers Bed to Chair Transfers Mainly slide-board, was able to transfer w/c to bed SBA using UE Car Transfers Slide board transfer Wheelchair Management Type of Wheelchair Manual w/c PT-OP-H Neuro Start: 03/08/22 17:00 Freq: Status: Active Protocol: Document 03/08/22 11:15 DCW (Rec: 03/11/22 12:14 DCW [id number]) Sensation Evaluation Gross Sensation Gross Sensation Left LE Impaired,Right LE Impaired,Trunk Impaired Sensation Description Paresthesia,Numbness,Tingling, Pins & Grady,Burning Dermatome Impairments T10,T11,T12,L1,L2,L3,L4,L5,S1, S2,S3,S4-5 Location Details Right Leg Light Touch Impaired Sharp/Dull Absent Deep Pressure Impaired Hot/Cold Absent Protective Sensation Absent Proprioception (Position) Impaired Kinesthesia (Movement) Impaired Two-Point Discrimination Absent Tactile Localization Absent Left Leg Light Touch Absent Sharp/Dull Absent Deep Pressure Absent Hot/Cold Absent Protective Sensation Absent Proprioception (Position) Absent Kinesthesia (Movement) Impaired Two-Point Discrimination Absent Tactile Localization Absent Deep Tendon Reflex & Clonus Assessment Deep Tendon Reflex Right Achilles Deep Tendon Reflex 0 Absent Right Patellar Deep Tendon Reflex 0 Absent Left Achilles Deep Tendon Reflex 0 Absent Left Patellar Deep Tendon Reflex 0 Absent Muscle Tone Tone Assessment Right Lower Extremity Flexor Tone Description Severe Hypotonicity Extensor Tone Description Severe Hypotonicity Left Lower Extremity Flexor Tone Description Severe Hypotonicity Extensor Tone Description Severe Hypotonicity PT-OP-J Posture/Palpation/Skin Start: 03/08/22 17:00 Freq: Status: Active Protocol: Document 03/08/22 11:15 DCW (Rec: 03/11/22 12:19 DCW [id number]) Posture Evaluation Comments Posture Comments Limitations in sitting due to loss of abdominal motor function, able to use upper extremities to reach out and change center of gravity in order to stabilize PT-OP-Q Treatments Start: 03/08/22 17:00 Freq: Status: Active Protocol: Document 04/18/22 12:00 DCW (Rec: 04/18/22 12:46 DCW [id number]) Cardio Equipment Recumbent Elliptical (Biodex) Duration (Minutes) 10 Resistance 3 Seat Position 9 Other w/c<->Biodex transfer using UEs, gait belt, MaxA x1 Therapeutic Exercises Supine Exercises Hip Flexor Stretch Supine Exercise Name Hip Flexor Stretch Side bilateral Comments putting hip an dknee into increased extension with over pressure Hamstring Stretch Supine Exercise Name HS stretch Side bilateral Knee to Chest Supine Exercise Name Single KtC Side bilateral Reps/Minutes x5 each, 10' hold Sitting Exercises Bicep curls to overhead press Side bilateral Resistance 5# Equipment Used mirror for self trunk alignment Reps/Minutes 2x10 Comments Cues for slow eccentric control Shoulder Extension Sitting Exercise Name Extension Side bilateral Resistance Lv 4 Comments Core Stabilization Rows Sitting Exercise Name Rows in w/c Side bilateral Resistance Lv 4 Comments Core stabilization PT-OP-T Assessment and Plan Start: 03/08/22 17:00 Freq: Status: Active Protocol: Document 04/18/22 12:00 DCW (Rec: 04/18/22 12:46 DCW [id number]) Physical Therapy Assessment Impairments Impairments Activity Tolerance,Balance, Coordination,Functional Activities,Functional Mobility ,Gait,Integument,Sensation, Soft Tissue Mobility,Strength, Tone,Transfers Goals Three Impairment Pt does not have any motor function throughout bilateral LEs Tomato Paste Maker Goal (LTG) Pt to demonstrate 1/5 trace motor contraction in at least one quad in order to begin focus on LE mobility if neural functional return begins. LTG Duration 05/31/22 Two Impairment Pt struggles to perform slideboard car transfer due to upward tilt Tomato Paste Maker Goal (LTG) Pt to demonstrate car transfer SBA using slideboard. LTG Duration 05/31/22 One Impairment Pt does not have an appropriate home exercise program Short Term Goal (STG) Pt to be independent and compliant with an appropriate HEP STG Duration 04/19/22 Assessment Summary Assessment Pt continues to benefit from working on transfers, LE mobility, and UE/core strengthening. Has added many of his PT activities to his home program. Notes some increased sensation in torso. Physical Therapy Plan Frequency and Duration Frequency of Treatment 2x/Week Duration of treatment (weeks) 12 Plan of Care Start Date 03/08/22 Plan of Care End Date 05/31/22 Therapeutic Interventions Therapeutic Interventions Aquatic Therapy,Balance Training,Coordination Training ,Gait Training,Home Exercise Program,Manual Therapy, Neuromuscular Re-education, Orthotic/Prosthetic Management ,Patient/Caregiver Education, Self-Care/Home Management, Sensory Integration,Soft Tissue Mobilization, Therapeutic Activities, Therapeutic Exercises, Wheelchair Management Next Visit Focus/Plan Next Note Type Treatment Note Next Visit Plan Assess tricep press up in sitting and seated crunch with 3#DB POC: Transfers, mobility, LE ROM
--- NOTE | 2022-04-23 14:30 | PT.OTN ---
Current Diagnoses Paraplegia, unspecified (04/23/22) Other specified personal risk factors, not elsewhere classified (04/23/22) Other specified postprocedural states (04/23/22) Physical Therapy Treatment Note PT-OP-A Visit Information Start: 03/08/22 17:00 Freq: Status: Active Protocol: Document 04/23/22 13:51 SP (Rec: 04/23/22 14:33 SP [id number]) Out-Patient Physical Therapy Visit Information Visit Information Visit Type Treatment Note Visit Start Time 13:51 Visit Stop Time 14:30 Total Visit Minutes 39 Visit Number 10 Number of BANDER Visits 1 Evaluation Information Evaluation Date 03/08/22 PT-OP-B Current Condition Start: 03/08/22 17:00 Freq: Status: Active Protocol: Document 03/08/22 11:15 DCW (Rec: 03/08/22 17:11 DCW [id number]) Current Condition History of Current Condition Onset Date 12/16/21 Current Complaints Paraplegia History of Current Condition Pt is a 71 year old male with a very unfortunate medical history. Pt was hiking [employer] on 12/16/21 with a friend, finished up, drive back to his friend's home to drop him off, and noticed his left leg was collapsing. By the time pt drove home, both legs were giving out and numb. Pt was suddenly paralized from the waist down, was taken to the ED, and was flown to [facility] on 12/17/21. The following day, he underwent a laminectomy to relieve pressure from the thoracic epidural hematoma which had developed following his hike, which was pressing on his spinal cord. Following surgery , pt was in recovery for a week and was then transfered to rehab for 20 days, when he was finally discharged home in a wheelchair on 01/19/22. Pt reports his surgeon informed him that it is a possibility that he gets some return of nerve function. Has experienced some changes in his right LE, but has no motor function at this time from ~ T10 down. Minimal sensory return on right side, none on left. Pt has been anxious to get in to therapy and do everything he can to help return to function. Pt's , who attended his evaluation, notes that she has been doing a lot of PROM in his legs at night to keep everything moving. Pt can feel some stretching during PROM in his right leg. Pt has additionally already started occupational therapy, and has been practicing some seated stabilization. Pt transfers with a slide board, but notes it is difficult to do into his car, because he has to transfer upward at an incline. Treatment Goals Patient/Caregiver Goals I will do anything possible to get out of this wheelchair. My neurologist told me he has seen people recover from this , so I am not giving up hope. PT-OP-C Subjective Start: 03/08/22 17:00 Freq: Status: Active Protocol: Document 04/23/22 13:51 SP (Rec: 04/23/22 14:33 SP [id number]) OP-PT Subjective Patient Comments Patient Comments Pt reports feels so good stretching when using the bike in PT and manual in PT/ Home with , feels from the hips all the way to the foot. States has full feeling with sensation contact RLE, LLE starting to feel spasming but not at the pace RLE. PT-OP-G Mobility & Gait Start: 03/08/22 17:00 Freq: Status: Active Protocol: Document 03/08/22 11:15 DCW (Rec: 03/11/22 12:14 DCW [id number]) OP Mobility Evaluation Transfers Bed to Chair Transfers Mainly slide-board, was able to transfer w/c to bed SBA using UE Car Transfers Slide board transfer Wheelchair Management Type of Wheelchair Manual w/c PT-OP-H Neuro Start: 03/08/22 17:00 Freq: Status: Active Protocol: Document 03/08/22 11:15 DCW (Rec: 03/11/22 12:14 DCW [id number]) Sensation Evaluation Gross Sensation Gross Sensation Left LE Impaired,Right LE Impaired,Trunk Impaired Sensation Description Paresthesia,Numbness,Tingling, Pins & [place],Burning Dermatome Impairments T10,T11,T12,L1,L2,L3,L4,L5,S1, S2,S3,S4-5 Location Details Right Leg Light Touch Impaired Sharp/Dull Absent Deep Pressure Impaired Hot/Cold Absent Protective Sensation Absent Proprioception (Position) Impaired Kinesthesia (Movement) Impaired Two-Point Discrimination Absent Tactile Localization Absent Left Leg Light Touch Absent Sharp/Dull Absent Deep Pressure Absent Hot/Cold Absent Protective Sensation Absent Proprioception (Position) Absent Kinesthesia (Movement) Impaired Two-Point Discrimination Absent Tactile Localization Absent Deep Tendon Reflex & Clonus Assessment Deep Tendon Reflex Right Achilles Deep Tendon Reflex 0 Absent Right Patellar Deep Tendon Reflex 0 Absent Left Achilles Deep Tendon Reflex 0 Absent Left Patellar Deep Tendon Reflex 0 Absent Muscle Tone Tone Assessment Right Lower Extremity Flexor Tone Description Severe Hypotonicity Extensor Tone Description Severe Hypotonicity Left Lower Extremity Flexor Tone Description Severe Hypotonicity Extensor Tone Description Severe Hypotonicity PT-OP-J Posture/Palpation/Skin Start: 03/08/22 17:00 Freq: Status: Active Protocol: Document 03/08/22 11:15 DCW (Rec: 03/11/22 12:19 DCW [id number]) Posture Evaluation Comments Posture Comments Limitations in sitting due to loss of abdominal motor function, able to use upper extremities to reach out and change center of gravity in order to stabilize PT-OP-Q Treatments Start: 03/08/22 17:00 Freq: Status: Active Protocol: Document 04/23/22 13:51 SP (Rec: 04/23/22 14:33 SP [id number]) Cardio Equipment Recumbent Elliptical (Biodex) Duration (Minutes) 10 Resistance 3 Seat Position 10 Other w/c<->Biodex transfer using UEs, gait belt, MaxA x2 lat squat pivot TF. Therapeutic Exercises Sitting Exercises TA Sitting Exercise Name cued engagement pre UE strenghthening Reps/Minutes 5 sec hold x5 Comments improved suck in vs distension with breath. Bicep curls to overhead press Side bilateral Resistance 5# Equipment Used mirror for self trunk alignment Reps/Minutes x20 Comments good slow eccentric control Seated crunch Sitting Exercise Name trunk wt shift forward least momentum more ab fac. Equipment Used 2#DB Reps/Minutes 2x10 Comments Cues for slow eccentric control on way back, can feel abs working Shoulder Extension Sitting Exercise Name Extension Side bilateral Resistance Cable #30 x6 reps, #20 x5 reps Comments Cued elbow extension w/ arm extension, improved chest lift & LT facilitation Rows Sitting Exercise Name Rows in w/c Side bilateral Resistance cable #30 Reps/Minutes x15 Comments cued Core slow con/eccentri stabilization PT-OP-T Assessment and Plan Start: 03/08/22 17:00 Freq: Status: Active Protocol: Document 04/23/22 13:51 SP (Rec: 04/23/22 14:33 SP [id number]) Physical Therapy Assessment Goals Three Impairment Pt does not have any motor function throughout bilateral LEs [facility] Goal (LTG) Pt to demonstrate 1/5 trace motor contraction in at least one quad in order to begin focus on LE mobility if neural functional return begins. LTG Duration 05/31/22 Two Impairment Pt struggles to perform slideboard car transfer due to upward tilt Picking Table Worker Goal (LTG) Pt to demonstrate car transfer SBA using slideboard. LTG Duration 05/31/22 One Impairment Pt does not have an appropriate home exercise program Short Term Goal (STG) Pt to be independent and compliant with an appropriate HEP STG Duration 04/19/22 Assessment Summary Assessment Pt able to engage TA when palpated improved post eduation decreased distension vs draw in bracing and occasional self corrections seated in w/c supported. Able to increase resistance UE shld extension using cable today with noted chest lift and LT facilitation to support progress of sitting unsupported. Physical Therapy Plan Frequency and Duration Frequency of Treatment 2x/Week Duration of treatment (weeks) 12 Plan of Care Start Date 03/08/22 Plan of Care End Date 05/31/22 Therapeutic Interventions Therapeutic Interventions Aquatic Therapy,Balance Training,Coordination Training ,Gait Training,Home Exercise Program,Manual Therapy, Neuromuscular Re-education, Orthotic/Prosthetic Management ,Patient/Caregiver Education, Self-Care/Home Management, Sensory Integration,Soft Tissue Mobilization, Therapeutic Activities, Therapeutic Exercises, Wheelchair Management Next Visit Focus/Plan Next Note Type Treatment Note Next Visit Plan Continue UE and core strengthening, LE PROM. POC: Transfers, mobility, LE ROM *Consider sit to stander in future when has better TA and hip abd/add control.
--- NOTE | 2022-04-25 14:32 | PT.OTN ---
Current Diagnoses Paraplegia, unspecified (04/25/22) Other specified personal risk factors, not elsewhere classified (04/25/22) Other specified postprocedural states (04/25/22) Physical Therapy Treatment Note PT-OP-A Visit Information Start: 03/08/22 17:00 Freq: Status: Active Protocol: Document 04/25/22 13:45 DCW (Rec: 04/25/22 14:32 DCW [id number]) Out-Patient Physical Therapy Visit Information Visit Information Visit Type Treatment Note Visit Start Time 13:45 Visit Stop Time 14:30 Total Visit Minutes 45 Visit Number 11 Number of CONSTRUCTION OPERATIONS MANAGER Visits 0 Evaluation Information Evaluation Date 03/08/22 PT-OP-B Current Condition Start: 03/08/22 17:00 Freq: Status: Active Protocol: Document 03/08/22 11:15 DCW (Rec: 03/08/22 17:11 DCW [id number]) Current Condition History of Current Condition Onset Date 12/16/21 Current Complaints Paraplegia History of Current Condition Pt is a 71 year old male with a very unfortunate medical history. Pt was hiking [employer] on 12/16/21 with a friend, finished up, drive back to his friend's home to drop him off, and noticed his left leg was collapsing. By the time pt drove home, both legs were giving out and numb. Pt was suddenly paralized from the waist down, was taken to the ED, and was flown to [facility] on 12/17/21. The following day, he underwent a laminectomy to relieve pressure from the thoracic epidural hematoma which had developed following his hike, which was pressing on his spinal cord. Following surgery , pt was in recovery for a week and was then transfered to rehab for 20 days, when he was finally discharged home in a wheelchair on 01/19/22. Pt reports his surgeon informed him that it is a possibility that he gets some return of nerve function. Has experienced some changes in his right LE, but has no motor function at this time from ~ T10 down. Minimal sensory return on right side, none on left. Pt has been anxious to get in to therapy and do everything he can to help return to function. Pt's , who attended his evaluation, notes that she has been doing a lot of PROM in his legs at night to keep everything moving. Pt can feel some stretching during PROM in his right leg. Pt has additionally already started occupational therapy, and has been practicing some seated stabilization. Pt transfers with a slide board, but notes it is difficult to do into his car, because he has to transfer upward at an incline. Treatment Goals Patient/Caregiver Goals I will do anything possible to get out of this wheelchair. My neurologist told me he has seen people recover from this , so I am not giving up hope. PT-OP-C Subjective Start: 03/08/22 17:00 Freq: Status: Active Protocol: Document 04/25/22 13:45 DCW (Rec: 04/25/22 14:32 DCW [id number]) OP-PT Subjective Patient Comments Patient Comments Pt feeling good today, notes he had a doctor's appointment earlier this morning, got a Covid and flu shot. PT-OP-G Mobility & Gait Start: 03/08/22 17:00 Freq: Status: Active Protocol: Document 03/08/22 11:15 DCW (Rec: 03/11/22 12:14 DCW [id number]) OP Mobility Evaluation Transfers Bed to Chair Transfers Mainly slide-board, was able to transfer w/c to bed SBA using UE Car Transfers Slide board transfer Wheelchair Management Type of Wheelchair Manual w/c PT-OP-H Neuro Start: 03/08/22 17:00 Freq: Status: Active Protocol: Document 03/08/22 11:15 DCW (Rec: 03/11/22 12:14 DCW [id number]) Sensation Evaluation Gross Sensation Gross Sensation Left LE Impaired,Right LE Impaired,Trunk Impaired Sensation Description Paresthesia,Numbness,Tingling, Pins & [place],Burning Dermatome Impairments T10,T11,T12,L1,L2,L3,L4,L5,S1, S2,S3,S4-5 Location Details Right Leg Light Touch Impaired Sharp/Dull Absent Deep Pressure Impaired Hot/Cold Absent Protective Sensation Absent Proprioception (Position) Impaired Kinesthesia (Movement) Impaired Two-Point Discrimination Absent Tactile Localization Absent Left Leg Light Touch Absent Sharp/Dull Absent Deep Pressure Absent Hot/Cold Absent Protective Sensation Absent Proprioception (Position) Absent Kinesthesia (Movement) Impaired Two-Point Discrimination Absent Tactile Localization Absent Deep Tendon Reflex & Clonus Assessment Deep Tendon Reflex Right Achilles Deep Tendon Reflex 0 Absent Right Patellar Deep Tendon Reflex 0 Absent Left Achilles Deep Tendon Reflex 0 Absent Left Patellar Deep Tendon Reflex 0 Absent Muscle Tone Tone Assessment Right Lower Extremity Flexor Tone Description Severe Hypotonicity Extensor Tone Description Severe Hypotonicity Left Lower Extremity Flexor Tone Description Severe Hypotonicity Extensor Tone Description Severe Hypotonicity PT-OP-J Posture/Palpation/Skin Start: 03/08/22 17:00 Freq: Status: Active Protocol: Document 03/08/22 11:15 DCW (Rec: 03/11/22 12:19 DCW [id number]) Posture Evaluation Comments Posture Comments Limitations in sitting due to loss of abdominal motor function, able to use upper extremities to reach out and change center of gravity in order to stabilize PT-OP-Q Treatments Start: 03/08/22 17:00 Freq: Status: Active Protocol: Document 04/25/22 13:45 DCW (Rec: 04/25/22 14:32 DCW [id number]) Cardio Equipment Recumbent Elliptical (Biodex) Duration (Minutes) 10 Resistance 3 Seat Position 9 Other w/c<->Biodex transfer using UEs, gait belt, MaxA x1 Therapeutic Exercises Supine Exercises Hip Flexor Stretch Supine Exercise Name Hip Flexor Stretch Side bilateral Comments putting hip and knee into increased extension with over pressure Hamstring Stretch Supine Exercise Name HS stretch Side bilateral Knee to Chest Supine Exercise Name Single KtC Side bilateral Reps/Minutes x5 each, 10' hold Sitting Exercises Bicep curls to overhead press Side bilateral Resistance 5# Equipment Used mirror for self trunk alignment Reps/Minutes x20 Comments good slow eccentric control Shoulder Extension Sitting Exercise Name Extension Side bilateral Resistance Cable #30 x6 reps, #20 x5 reps Comments Cued elbow extension w/ arm extension, improved chest lift & LT facilitation Rows Sitting Exercise Name Rows in w/c Side bilateral Resistance cable #30 Reps/Minutes x15 Comments cued Core slow con/eccentri stabilization PT-OP-T Assessment and Plan Start: 03/08/22 17:00 Freq: Status: Active Protocol: Document 04/25/22 13:45 DCW (Rec: 04/25/22 14:32 DCW [id number]) Physical Therapy Assessment Impairments Impairments Activity Tolerance,Balance, Coordination,Functional Activities,Functional Mobility ,Gait,Integument,Sensation, Soft Tissue Mobility,Strength, Tone,Transfers Goals Three Impairment Pt does not have any motor function throughout bilateral LEs [facility] Goal (LTG) Pt to demonstrate 1/5 trace motor contraction in at least one quad in order to begin focus on LE mobility if neural functional return begins. LTG Duration 05/31/22 Two Impairment Pt struggles to perform slideboard car transfer due to upward tilt It Telecom Technician Goal (LTG) Pt to demonstrate car transfer SBA using slideboard. LTG Duration 05/31/22 One Impairment Pt does not have an appropriate home exercise program Short Term Goal (STG) Pt to be independent and compliant with an appropriate HEP STG Duration 04/19/22 Assessment Summary Assessment Pt continues to do better with TrA contraction, slight improvement in sensation level along torso. left leg continues to have absent sensation. Physical Therapy Plan Frequency and Duration Frequency of Treatment 2x/Week Duration of treatment (weeks) 12 Plan of Care Start Date 03/08/22 Plan of Care End Date 05/31/22 Therapeutic Interventions Therapeutic Interventions Aquatic Therapy,Balance Training,Coordination Training ,Gait Training,Home Exercise Program,Manual Therapy, Neuromuscular Re-education, Orthotic/Prosthetic Management ,Patient/Caregiver Education, Self-Care/Home Management, Sensory Integration,Soft Tissue Mobilization, Therapeutic Activities, Therapeutic Exercises, Wheelchair Management Next Visit Focus/Plan Next Note Type Treatment Note Next Visit Plan Continue UE and core strengthening, LE PROM. POC: Transfers, mobility, LE ROM *Consider sit to stander in future when has better TA and hip abd/add control.
--- NOTE | 2022-04-25 15:19 | PT.OPPN ---
Current Diagnoses Paraplegia, unspecified (04/25/22) Other specified personal risk factors, not elsewhere classified (04/25/22) Other specified postprocedural states (04/25/22) Physical Therapy Progress Note PT-OP-A Visit Information Start: 03/08/22 17:00 Freq: Status: Active Protocol: Document 04/25/22 13:45 DCW (Rec: 04/25/22 14:32 DCW [id number]) Out-Patient Physical Therapy Visit Information Visit Information Visit Type Treatment Note Visit Start Time 13:45 Visit Stop Time 14:30 Total Visit Minutes 45 Visit Number 11 Number of DREDGEMASTER Visits 0 Evaluation Information Evaluation Date 03/08/22 PT-OP-B Current Condition Start: 03/08/22 17:00 Freq: Status: Active Protocol: Document 03/08/22 11:15 DCW (Rec: 03/08/22 17:11 DCW [id number]) Current Condition History of Current Condition Onset Date 12/16/21 Current Complaints Paraplegia History of Current Condition Pt is a 71 year old male with a very unfortunate medical history. Pt was hiking [employer] on 12/16/21 with a friend, finished up, drive back to his friend's home to drop him off, and noticed his left leg was collapsing. By the time pt drove home, both legs were giving out and numb. Pt was suddenly paralized from the waist down, was taken to the ED, and was flown to [facility] on 12/17/21. The following day, he underwent a laminectomy to relieve pressure from the thoracic epidural hematoma which had developed following his hike, which was pressing on his spinal cord. Following surgery , pt was in recovery for a week and was then transfered to rehab for 20 days, when he was finally discharged home in a wheelchair on 01/19/22. Pt reports his surgeon informed him that it is a possibility that he gets some return of nerve function. Has experienced some changes in his right LE, but has no motor function at this time from ~ T10 down. Minimal sensory return on right side, none on left. Pt has been anxious to get in to therapy and do everything he can to help return to function. Pt's , who attended his evaluation, notes that she has been doing a lot of PROM in his legs at night to keep everything moving. Pt can feel some stretching during PROM in his right leg. Pt has additionally already started occupational therapy, and has been practicing some seated stabilization. Pt transfers with a slide board, but notes it is difficult to do into his car, because he has to transfer upward at an incline. Treatment Goals Patient/Caregiver Goals I will do anything possible to get out of this wheelchair. My neurologist told me he has seen people recover from this , so I am not giving up hope. PT-OP-C Subjective Start: 03/08/22 17:00 Freq: Status: Active Protocol: Document 04/25/22 13:45 DCW (Rec: 04/25/22 14:32 DCW [id number]) OP-PT Subjective Patient Comments Patient Comments Pt feeling good today, notes he had a doctor's appointment earlier this morning, got a Covid and flu shot. PT-OP-G Mobility & Gait Start: 03/08/22 17:00 Freq: Status: Active Protocol: Document 03/08/22 11:15 DCW (Rec: 03/11/22 12:14 DCW [id number]) OP Mobility Evaluation Transfers Bed to Chair Transfers Mainly slide-board, was able to transfer w/c to bed SBA using UE Car Transfers Slide board transfer Wheelchair Management Type of Wheelchair Manual w/c PT-OP-H Neuro Start: 03/08/22 17:00 Freq: Status: Active Protocol: Document 03/08/22 11:15 DCW (Rec: 03/11/22 12:14 DCW [id number]) Sensation Evaluation Gross Sensation Gross Sensation Left LE Impaired,Right LE Impaired,Trunk Impaired Sensation Description Paresthesia,Numbness,Tingling, Pins & [place],Burning Dermatome Impairments T10,T11,T12,L1,L2,L3,L4,L5,S1, S2,S3,S4-5 Location Details Right Leg Light Touch Impaired Sharp/Dull Absent Deep Pressure Impaired Hot/Cold Absent Protective Sensation Absent Proprioception (Position) Impaired Kinesthesia (Movement) Impaired Two-Point Discrimination Absent Tactile Localization Absent Left Leg Light Touch Absent Sharp/Dull Absent Deep Pressure Absent Hot/Cold Absent Protective Sensation Absent Proprioception (Position) Absent Kinesthesia (Movement) Impaired Two-Point Discrimination Absent Tactile Localization Absent Deep Tendon Reflex & Clonus Assessment Deep Tendon Reflex Right Achilles Deep Tendon Reflex 0 Absent Right Patellar Deep Tendon Reflex 0 Absent Left Achilles Deep Tendon Reflex 0 Absent Left Patellar Deep Tendon Reflex 0 Absent Muscle Tone Tone Assessment Right Lower Extremity Flexor Tone Description Severe Hypotonicity Extensor Tone Description Severe Hypotonicity Left Lower Extremity Flexor Tone Description Severe Hypotonicity Extensor Tone Description Severe Hypotonicity PT-OP-J Posture/Palpation/Skin Start: 03/08/22 17:00 Freq: Status: Active Protocol: Document 03/08/22 11:15 DCW (Rec: 03/11/22 12:19 DCW [id number]) Posture Evaluation Comments Posture Comments Limitations in sitting due to loss of abdominal motor function, able to use upper extremities to reach out and change center of gravity in order to stabilize PT-OP-T Assessment and Plan Start: 03/08/22 17:00 Freq: Status: Active Protocol: Document 04/25/22 13:45 DCW (Rec: 04/25/22 14:32 DCW [id number]) Physical Therapy Assessment Impairments Impairments Activity Tolerance,Balance, Coordination,Functional Activities,Functional Mobility ,Gait,Integument,Sensation, Soft Tissue Mobility,Strength, Tone,Transfers Goals Three Impairment Pt does not have any motor function throughout bilateral LEs [place] Goal (LTG) Pt to demonstrate 1/5 trace motor contraction in at least one quad in order to begin focus on LE mobility if neural functional return begins. LTG Duration 05/31/22 Two Impairment Pt struggles to perform slideboard car transfer due to upward tilt Halfway Goal (LTG) Pt to demonstrate car transfer SBA using slideboard. LTG Duration 05/31/22 One Impairment Pt does not have an appropriate home exercise program Short Term Goal (STG) Pt to be independent and compliant with an appropriate HEP STG Duration 04/19/22 Assessment Summary Assessment Pt continues to do better with TrA contraction, slight improvement in sensation level along torso. left leg continues to have absent sensation. Physical Therapy Plan Frequency and Duration Frequency of Treatment 2x/Week Duration of treatment (weeks) 12 Plan of Care Start Date 03/08/22 Plan of Care End Date 05/31/22 Therapeutic Interventions Therapeutic Interventions Aquatic Therapy,Balance Training,Coordination Training ,Gait Training,Home Exercise Program,Manual Therapy, Neuromuscular Re-education, Orthotic/Prosthetic Management ,Patient/Caregiver Education, Self-Care/Home Management, Sensory Integration,Soft Tissue Mobilization, Therapeutic Activities, Therapeutic Exercises, Wheelchair Management Next Visit Focus/Plan Next Note Type Treatment Note Next Visit Plan Continue UE and core strengthening, LE PROM. POC: Transfers, mobility, LE ROM *Consider sit to stander in future when has better TA and hip abd/add control.
--- NOTE | 2022-04-30 13:49 | PT.OTN ---
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 Pt was hiking [place] on 12/16/21 with a friend, finished up, drive back to his friend's home to drop him off, and noticed his left leg was collapsing. By the time pt drove home, both legs were giving out and numb. Pt was suddenly paralized from the waist down, was taken to the ED, and was flown to [facility] on 12/17/21. The following day, he underwent a laminectomy to relieve pressure from the thoracic epidural hematoma which had developed following his hike, which was pressing on his spinal cord. Following surgery , pt was in recovery for a week and was then transfered to rehab for 20 days, when he was finally discharged home in a wheelchair on 01/19/22. Pt reports his surgeon informed him that it is a possibility that he gets some return of nerve function. Has experienced some changes in his right LE, but has no motor function at this time from ~ T10 down. Minimal sensory return on right side, none on left. Pt has been anxious to get in to therapy and do everything he can to help return to function. Pt's , who attended his evaluation, notes that she has been doing a lot of PROM in his legs at night to keep everything moving. Pt can feel some stretching during PROM in his right leg. Pt has additionally already started occupational therapy, and has been practicing some seated stabilization. Pt transfers with a slide board, but notes it is difficult to do into his car, because he has to transfer upward at an incline. Treatment Goals Patient/Caregiver Goals I will do anything possible to get out of this wheelchair. My neurologist told me he has seen people recover from this , so I am not giving up hope. PT-OP-C Subjective Start: 03/08/22 17:00 Freq: Status: Active Protocol: Document 04/30/22 13:09 SP (Rec: 04/30/22 13:59 SP [id number]) OP-PT Subjective Patient Comments Patient Comments Pt stated overall getting slow changes in sensation in his torso anterior lower abdominals and contact lateral abdominals at waist . PT-OP-G Mobility & Gait Start: 03/08/22 17:00 Freq: Status: Active Protocol: Document 03/08/22 11:15 DCW (Rec: 03/11/22 12:14 DCW [id number]) OP Mobility Evaluation Transfers Bed to Chair Transfers Mainly slide-board, was able to transfer w/c to bed SBA using UE Car Transfers Slide board transfer Wheelchair Management Type of Wheelchair Manual w/c PT-OP-H Neuro Start: 03/08/22 17:00 Freq: Status: Active Protocol: Document 03/08/22 11:15 DCW (Rec: 03/11/22 12:14 DCW [id number]) Sensation Evaluation Gross Sensation Gross Sensation Left LE Impaired,Right LE Impaired,Trunk Impaired Sensation Description Paresthesia,Numbness,Tingling, Pins & [place],Burning Dermatome Impairments T10,T11,T12,L1,L2,L3,L4,L5,S1, S2,S3,S4-5 Location Details Right Leg Light Touch Impaired Sharp/Dull Absent Deep Pressure Impaired Hot/Cold Absent Protective Sensation Absent Proprioception (Position) Impaired Kinesthesia (Movement) Impaired Two-Point Discrimination Absent Tactile Localization Absent Left Leg Light Touch Absent Sharp/Dull Absent Deep Pressure Absent Hot/Cold Absent Protective Sensation Absent Proprioception (Position) Absent Kinesthesia (Movement) Impaired Two-Point Discrimination Absent Tactile Localization Absent Deep Tendon Reflex & Clonus Assessment Deep Tendon Reflex Right Achilles Deep Tendon Reflex 0 Absent Right Patellar Deep Tendon Reflex 0 Absent Left Achilles Deep Tendon Reflex 0 Absent Left Patellar Deep Tendon Reflex 0 Absent Muscle Tone Tone Assessment Right Lower Extremity Flexor Tone Description Severe Hypotonicity Extensor Tone Description Severe Hypotonicity Left Lower Extremity Flexor Tone Description Severe Hypotonicity Extensor Tone Description Severe Hypotonicity PT-OP-J Posture/Palpation/Skin Start: 03/08/22 17:00 Freq: Status: Active Protocol: Document 03/08/22 11:15 DCW (Rec: 03/11/22 12:19 DCW [id number]) Posture Evaluation Comments Posture Comments Limitations in sitting due to loss of abdominal motor function, able to use upper extremities to reach out and change center of gravity in order to stabilize PT-OP-Q Treatments Start: 03/08/22 17:00 Freq: Status: Active Protocol: Document 04/30/22 13:09 SP (Rec: 04/30/22 13:59 SP [id number]) Cardio Equipment Recumbent Elliptical (Biodex) Duration (Minutes) 10 Resistance 3 Seat Position 7 for 5 min, 10 for 5 min Other w/c<->Biodex transfer using UEs, gait belt, MaxA x2, 1011ft Therapeutic Exercises Supine Exercises Hip Flexor Stretch Supine Exercise Name Hip Flexor Stretch (LE extension) Side bilateral Resistance manual Reps/Minutes 2 min hold x3 Comments putting hip and knee into increased extension with over press. posteriorly Hamstring Stretch Supine Exercise Name HS stretch Side bilateral Equipment Used manual Reps/Minutes 2 min hold x3 Knee to Chest Supine Exercise Name Single KtC Side bilateral Equipment Used manual Reps/Minutes x5 each, 10' hold Comments good feedback response Sitting Exercises Bicep curls to overhead press Sitting Exercise Name in wc Side bilateral Resistance 5# Equipment Used cued upright trunk alignment, look up Reps/Minutes x2 min Comments good slow eccentric control Seated crunch Sitting Exercise Name trunk wt shift forward least momentum more ab fac Resistance at EO table, self wt shift forward/Max A coming back upright Equipment Used AROM Reps/Minutes x10 Comments Cues for slow control forward, can feel abs working Therapeutic Activity Therapeutic Activity sit<> supine Name Mod A x1 Reps/Minutes x1 Comments Sit>sup: Min A via gait belt on trunk anteriorly, Mod A support for LEs onto table assist pt grasping. Cued slow pacing for TA contraction. Sup >Sit Mod A LE off EOtable, self trunk right to sit w/ heavy BUE on table. Slide Board Transfer Name To and from black mat table ( wc) Reps/Minutes 2 Comments Pt SB/CGA for slideboard transfer. PT-OP-T Assessment and Plan Start: 03/08/22 17:00 Freq: Status: Active Protocol: Document 04/30/22 13:09 SP (Rec: 04/30/22 13:59 SP [id number]) Physical Therapy Assessment Goals Three Impairment Pt does not have any motor function throughout bilateral LEs Halfway Goal (LTG) Pt to demonstrate 1/5 trace motor contraction in at least one quad in order to begin focus on LE mobility if neural functional return begins. LTG Duration 05/31/22 Two Impairment Pt struggles to perform slideboard car transfer due to upward tilt Electro Mechanic Goal (LTG) Pt to demonstrate car transfer SBA using slideboard. LTG Duration 05/31/22 One Impairment Pt does not have an appropriate home exercise program Short Term Goal (STG) Pt to be independent and compliant with an appropriate HEP STG Duration 04/19/22 Assessment Summary Assessment Pt continues to do better with TA contraction during sit< supine and seated wt shift forward unsupported EOtable. Pt reports sensation over lower abdominals improving. Physical Therapy Plan Frequency and Duration Frequency of Treatment 2x/Week Duration of treatment (weeks) 12 Plan of Care Start Date 03/08/22 Plan of Care End Date 05/31/22 Therapeutic Interventions Therapeutic Interventions Aquatic Therapy,Balance Training,Coordination Training ,Gait Training,Home Exercise Program,Manual Therapy, Neuromuscular Re-education, Orthotic/Prosthetic Management ,Patient/Caregiver Education, Self-Care/Home Management, Sensory Integration,Soft Tissue Mobilization, Therapeutic Activities, Therapeutic Exercises, Wheelchair Management Next Visit Focus/Plan Next Note Type Treatment Note Next Visit Plan Continue UE and core strengthening, LE PROM. POC: Transfers, mobility, LE ROM *Consider sit to stander in future when has better TA and hip abd/add control.
--- NOTE | 2022-05-02 14:34 | PT.OTN ---
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 Pt was hiking [employer] on 12/16/21 with a friend, finished up, drive back to his friend's home to drop him off, and noticed his left leg was collapsing. By the time pt drove home, both legs were giving out and numb. Pt was suddenly paralized from the waist down, was taken to the ED, and was flown to [facility] on 12/17/21. The following day, he underwent a laminectomy to relieve pressure from the thoracic epidural hematoma which had developed following his hike, which was pressing on his spinal cord. Following surgery , pt was in recovery for a week and was then transfered to rehab for 20 days, when he was finally discharged home in a wheelchair on 01/19/22. Pt reports his surgeon informed him that it is a possibility that he gets some return of nerve function. Has experienced some changes in his right LE, but has no motor function at this time from ~ T10 down. Minimal sensory return on right side, none on left. Pt has been anxious to get in to therapy and do everything he can to help return to function. Pt's , who attended his evaluation, notes that she has been doing a lot of PROM in his legs at night to keep everything moving. Pt can feel some stretching during PROM in his right leg. Pt has additionally already started occupational therapy, and has been practicing some seated stabilization. Pt transfers with a slide board, but notes it is difficult to do into his car, because he has to transfer upward at an incline. Treatment Goals Patient/Caregiver Goals I will do anything possible to get out of this wheelchair. My neurologist told me he has seen people recover from this , so I am not giving up hope. PT-OP-C Subjective Start: 03/08/22 17:00 Freq: Status: Active Protocol: Document 05/02/22 13:46 DCW (Rec: 05/02/22 14:34 DCW [id number]) OP-PT Subjective Patient Comments Patient Comments Pt feeling good today, still optimistic about return of function in LEs PT-OP-G Mobility & Gait Start: 03/08/22 17:00 Freq: Status: Active Protocol: Document 03/08/22 11:15 DCW (Rec: 03/11/22 12:14 DCW [id number]) OP Mobility Evaluation Transfers Bed to Chair Transfers Mainly slide-board, was able to transfer w/c to bed SBA using UE Car Transfers Slide board transfer Wheelchair Management Type of Wheelchair Manual w/c PT-OP-H Neuro Start: 03/08/22 17:00 Freq: Status: Active Protocol: Document 03/08/22 11:15 DCW (Rec: 03/11/22 12:14 DCW [id number]) Sensation Evaluation Gross Sensation Gross Sensation Left LE Impaired,Right LE Impaired,Trunk Impaired Sensation Description Paresthesia,Numbness,Tingling, Pins & [place],Burning Dermatome Impairments T10,T11,T12,L1,L2,L3,L4,L5,S1, S2,S3,S4-5 Location Details Right Leg Light Touch Impaired Sharp/Dull Absent Deep Pressure Impaired Hot/Cold Absent Protective Sensation Absent Proprioception (Position) Impaired Kinesthesia (Movement) Impaired Two-Point Discrimination Absent Tactile Localization Absent Left Leg Light Touch Absent Sharp/Dull Absent Deep Pressure Absent Hot/Cold Absent Protective Sensation Absent Proprioception (Position) Absent Kinesthesia (Movement) Impaired Two-Point Discrimination Absent Tactile Localization Absent Deep Tendon Reflex & Clonus Assessment Deep Tendon Reflex Right Achilles Deep Tendon Reflex 0 Absent Right Patellar Deep Tendon Reflex 0 Absent Left Achilles Deep Tendon Reflex 0 Absent Left Patellar Deep Tendon Reflex 0 Absent Muscle Tone Tone Assessment Right Lower Extremity Flexor Tone Description Severe Hypotonicity Extensor Tone Description Severe Hypotonicity Left Lower Extremity Flexor Tone Description Severe Hypotonicity Extensor Tone Description Severe Hypotonicity PT-OP-J Posture/Palpation/Skin Start: 03/08/22 17:00 Freq: Status: Active Protocol: Document 03/08/22 11:15 DCW (Rec: 03/11/22 12:19 DCW [id number]) Posture Evaluation Comments Posture Comments Limitations in sitting due to loss of abdominal motor function, able to use upper extremities to reach out and change center of gravity in order to stabilize PT-OP-Q Treatments Start: 03/08/22 17:00 Freq: Status: Active Protocol: Document 05/02/22 13:46 DCW (Rec: 05/02/22 14:34 DCW [id number]) Cardio Equipment Recumbent Elliptical (Biodex) Duration (Minutes) 10 Resistance 3 Seat Position 9 Other w/c<->Biodex transfer using UEs, gait belt, MaxA x1 Therapeutic Exercises Supine Exercises Hip Flexor Stretch Supine Exercise Name Hip Flexor Stretch (LE extension) Side bilateral Resistance manual Comments putting hip and knee into increased extension with over press. posteriorly Hamstring Stretch Supine Exercise Name HS stretch Side bilateral Equipment Used manual Reps/Minutes 2 min hold x3 Knee to Chest Supine Exercise Name Single KtC Side bilateral Equipment Used manual Comments good feedback response Therapeutic Activity Therapeutic Activity sit<> supine Name Mod A x1 Reps/Minutes x1 Comments Sit>sup: Min A via gait belt on trunk anteriorly, Mod A support for LEs onto table assist pt grasping. Cued slow pacing for TA contraction. Sup >Sit Mod A LE off EOtable, self trunk right to sit w/ heavy BUE on table. Slide Board Transfer Name To and from black mat table ( wc) Reps/Minutes 2 Comments Pt SB/CGA for slideboard transfer. PT-OP-T Assessment and Plan Start: 03/08/22 17:00 Freq: Status: Active Protocol: Document 05/02/22 13:46 DCW (Rec: 05/02/22 14:34 DCW [id number]) Physical Therapy Assessment Impairments Impairments Activity Tolerance,Balance, Coordination,Functional Activities,Functional Mobility ,Gait,Integument,Sensation, Soft Tissue Mobility,Strength, Tone,Transfers Goals Three Impairment Pt does not have any motor function throughout bilateral LEs Half-Way Goal (LTG) Pt to demonstrate 1/5 trace motor contraction in at least one quad in order to begin focus on LE mobility if neural functional return begins. LTG Duration 05/31/22 Two Impairment Pt struggles to perform slideboard car transfer due to upward tilt Real Estate Financial Analyst Goal (LTG) Pt to demonstrate car transfer SBA using slideboard. LTG Duration 05/31/22 One Impairment Pt does not have an appropriate home exercise program Short Term Goal (STG) Pt to be independent and compliant with an appropriate HEP STG Duration 04/19/22 Assessment Summary Assessment Pt tolerating treatment very well, happy to be getting stretched out to limit contractures due to spending so much time seated in w/c. Still obviously limited due to no return of LE motor function at this time, slow changes in sensory innervation appear to be occurring. Physical Therapy Plan Frequency and Duration Frequency of Treatment 2x/Week Duration of treatment (weeks) 12 Plan of Care Start Date 03/08/22 Plan of Care End Date 05/31/22 Therapeutic Interventions Therapeutic Interventions Aquatic Therapy,Balance Training,Coordination Training ,Gait Training,Home Exercise Program,Manual Therapy, Neuromuscular Re-education, Orthotic/Prosthetic Management ,Patient/Caregiver Education, Self-Care/Home Management, Sensory Integration,Soft Tissue Mobilization, Therapeutic Activities, Therapeutic Exercises, Wheelchair Management Next Visit Focus/Plan Next Note Type Treatment Note Next Visit Plan Continue UE and core strengthening, LE PROM. POC: Transfers, mobility, LE ROM *Consider sit to stander in future when has better TA and hip abd/add control.
--- NOTE | 2022-05-07 16:44 | PT.OTN ---
Current Diagnoses Paraplegia, unspecified (05/07/22) Other specified personal risk factors, not elsewhere classified (05/07/22) Other specified postprocedural states (05/07/22) Physical Therapy Treatment Note PT-OP-A Visit Information Start: 03/08/22 17:00 Freq: Status: Active Protocol: Document 05/07/22 16:00 DCW (Rec: 05/07/22 16:44 DCW [id number]) Out-Patient Physical Therapy Visit Information Visit Information Visit Type Treatment Note Visit Start Time 16:00 Visit Stop Time 16:45 Total Visit Minutes 45 Visit Number 14 Number of FOOD CONCESSION MANAGER Visits 0 Evaluation Information Evaluation Date 03/08/22 PT-OP-B Current Condition Start: 03/08/22 17:00 Freq: Status: Active Protocol: Document 03/08/22 11:15 DCW (Rec: 03/08/22 17:11 DCW [id number]) Current Condition History of Current Condition Onset Date 12/16/21 Current Complaints Paraplegia History of Current Condition Pt is a 71 year old male with a very unfortunate medical history. Pt was hiking [employer] on 12/16/21 with a friend, finished up, drive back to his friend's home to drop him off, and noticed his left leg was collapsing. By the time pt drove home, both legs were giving out and numb. Pt was suddenly paralized from the waist down, was taken to the ED, and was flown to [facility] on 12/17/21. The following day, he underwent a laminectomy to relieve pressure from the thoracic epidural hematoma which had developed following his hike, which was pressing on his spinal cord. Following surgery , pt was in recovery for a week and was then transfered to rehab for 20 days, when he was finally discharged home in a wheelchair on 01/19/22. Pt reports his surgeon informed him that it is a possibility that he gets some return of nerve function. Has experienced some changes in his right LE, but has no motor function at this time from ~ T10 down. Minimal sensory return on right side, none on left. Pt has been anxious to get in to therapy and do everything he can to help return to function. Pt's , who attended his evaluation, notes that she has been doing a lot of PROM in his legs at night to keep everything moving. Pt can feel some stretching during PROM in his right leg. Pt has additionally already started occupational therapy, and has been practicing some seated stabilization. Pt transfers with a slide board, but notes it is difficult to do into his car, because he has to transfer upward at an incline. Treatment Goals Patient/Caregiver Goals I will do anything possible to get out of this wheelchair. My neurologist told me he has seen people recover from this , so I am not giving up hope. PT-OP-C Subjective Start: 03/08/22 17:00 Freq: Status: Active Protocol: Document 05/07/22 16:00 DCW (Rec: 05/07/22 16:44 DCW [id number]) OP-PT Subjective Patient Comments Patient Comments Pt reports he rolling right along. Notes he was able to move three toes on his right foot the other day. PT-OP-G Mobility & Gait Start: 03/08/22 17:00 Freq: Status: Active Protocol: Document 03/08/22 11:15 DCW (Rec: 03/11/22 12:14 DCW [id number]) OP Mobility Evaluation Transfers Bed to Chair Transfers Mainly slide-board, was able to transfer w/c to bed SBA using UE Car Transfers Slide board transfer Wheelchair Management Type of Wheelchair Manual w/c PT-OP-H Neuro Start: 03/08/22 17:00 Freq: Status: Active Protocol: Document 03/08/22 11:15 DCW (Rec: 03/11/22 12:14 DCW [id number]) Sensation Evaluation Gross Sensation Gross Sensation Left LE Impaired,Right LE Impaired,Trunk Impaired Sensation Description Paresthesia,Numbness,Tingling, Pins & [place],Burning Dermatome Impairments T10,T11,T12,L1,L2,L3,L4,L5,S1, S2,S3,S4-5 Location Details Right Leg Light Touch Impaired Sharp/Dull Absent Deep Pressure Impaired Hot/Cold Absent Protective Sensation Absent Proprioception (Position) Impaired Kinesthesia (Movement) Impaired Two-Point Discrimination Absent Tactile Localization Absent Left Leg Light Touch Absent Sharp/Dull Absent Deep Pressure Absent Hot/Cold Absent Protective Sensation Absent Proprioception (Position) Absent Kinesthesia (Movement) Impaired Two-Point Discrimination Absent Tactile Localization Absent Deep Tendon Reflex & Clonus Assessment Deep Tendon Reflex Right Achilles Deep Tendon Reflex 0 Absent Right Patellar Deep Tendon Reflex 0 Absent Left Achilles Deep Tendon Reflex 0 Absent Left Patellar Deep Tendon Reflex 0 Absent Muscle Tone Tone Assessment Right Lower Extremity Flexor Tone Description Severe Hypotonicity Extensor Tone Description Severe Hypotonicity Left Lower Extremity Flexor Tone Description Severe Hypotonicity Extensor Tone Description Severe Hypotonicity PT-OP-J Posture/Palpation/Skin Start: 03/08/22 17:00 Freq: Status: Active Protocol: Document 03/08/22 11:15 DCW (Rec: 03/11/22 12:19 DCW [id number]) Posture Evaluation Comments Posture Comments Limitations in sitting due to loss of abdominal motor function, able to use upper extremities to reach out and change center of gravity in order to stabilize PT-OP-Q Treatments Start: 03/08/22 17:00 Freq: Status: Active Protocol: Document 05/07/22 16:00 DCW (Rec: 05/07/22 16:44 DCW [id number]) Cardio Equipment Recumbent Elliptical (Biodex) Duration (Minutes) 10 Resistance 3 Seat Position 10 Other w/c<->Biodex transfer using UEs, gait belt, MaxA x1 Therapeutic Exercises Sitting Exercises Chest Press Sitting Exercise Name Seated Chest Press Side bilateral Resistance 10# /c PVC PT-OP-T Assessment and Plan Start: 03/08/22 17:00 Freq: Status: Active Protocol: Document 05/07/22 16:00 DCW (Rec: 05/07/22 16:44 DCW [id number]) Physical Therapy Assessment Impairments Impairments Activity Tolerance,Balance, Coordination,Functional Activities,Functional Mobility ,Gait,Integument,Sensation, Soft Tissue Mobility,Strength, Tone,Transfers Goals Three Impairment Pt does not have any motor function throughout bilateral LEs Long-Term Goal (LTG) Pt to demonstrate 1/5 trace motor contraction in at least one quad in order to begin focus on LE mobility if neural functional return begins. LTG Duration 05/31/22 Two Impairment Pt struggles to perform slideboard car transfer due to upward tilt Long-Term Goal (LTG) Pt to demonstrate car transfer SBA using slideboard. LTG Duration 05/31/22 One Impairment Pt does not have an appropriate home exercise program Short Term Goal (STG) Pt to be independent and compliant with an appropriate HEP STG Duration 04/19/22 Assessment Summary Assessment Pt able to demonstrate 1/5 motor function in right adductors today while in supine, and able to contract enough to bring knee in with tactile cues of PT tapping adductors. Physical Therapy Plan Frequency and Duration Frequency of Treatment 2x/Week Duration of treatment (weeks) 12 Plan of Care Start Date 03/08/22 Plan of Care End Date 05/31/22 Therapeutic Interventions Therapeutic Interventions Aquatic Therapy,Balance Training,Coordination Training ,Gait Training,Home Exercise Program,Manual Therapy, Neuromuscular Re-education, Orthotic/Prosthetic Management ,Patient/Caregiver Education, Self-Care/Home Management, Sensory Integration,Soft Tissue Mobilization, Therapeutic Activities, Therapeutic Exercises, Wheelchair Management Next Visit Focus/Plan Next Note Type Treatment Note Next Visit Plan Continue UE and core strengthening, LE PROM. POC: Transfers, mobility, LE ROM *Consider sit to stander in future when has better TA and hip abd/add control.
--- NOTE | 2022-05-14 13:00 | PT.OTN ---
Current Diagnoses Paraplegia, unspecified (05/14/22) Other specified personal risk factors, not elsewhere classified (05/14/22) Other specified postprocedural states (05/14/22) Physical Therapy Treatment Note PT-OP-A Visit Information Start: 03/08/22 17:00 Freq: Status: Active Protocol: Document 05/14/22 12:18 SP (Rec: 05/14/22 13:04 SP [id number]) Out-Patient Physical Therapy Visit Information Visit Information Visit Type Treatment Note Visit Start Time 12:18 Visit Stop Time 13:00 Total Visit Minutes 42 Visit Number 15 Number of GROUP CAPTAIN Visits 1 Evaluation Information Evaluation Date 03/08/22 PT-OP-B Current Condition Start: 03/08/22 17:00 Freq: Status: Active Protocol: Document 03/08/22 11:15 DCW (Rec: 03/08/22 17:11 DCW [id number]) Current Condition History of Current Condition Onset Date 12/16/21 Current Complaints Paraplegia History of Current Condition Pt is a 71 year old male with a very unfortunate medical history. Pt was hiking [employer] on 12/16/21 with a friend, finished up, drive back to his friend's home to drop him off, and noticed his left leg was collapsing. By the time pt drove home, both legs were giving out and numb. Pt was suddenly paralized from the waist down, was taken to the ED, and was flown to [facility] on 12/17/21. The following day, he underwent a laminectomy to relieve pressure from the thoracic epidural hematoma which had developed following his hike, which was pressing on his spinal cord. Following surgery , pt was in recovery for a week and was then transfered to rehab for 20 days, when he was finally discharged home in a wheelchair on 01/19/22. Pt reports his surgeon informed him that it is a possibility that he gets some return of nerve function. Has experienced some changes in his right LE, but has no motor function at this time from ~ T10 down. Minimal sensory return on right side, none on left. Pt has been anxious to get in to therapy and do everything he can to help return to function. Pt's , who attended his evaluation, notes that she has been doing a lot of PROM in his legs at night to keep everything moving. Pt can feel some stretching during PROM in his right leg. Pt has additionally already started occupational therapy, and has been practicing some seated stabilization. Pt transfers with a slide board, but notes it is difficult to do into his car, because he has to transfer upward at an incline. Treatment Goals Patient/Caregiver Goals I will do anything possible to get out of this wheelchair. My neurologist told me he has seen people recover from this , so I am not giving up hope. PT-OP-C Subjective Start: 03/08/22 17:00 Freq: Status: Active Protocol: Document 05/14/22 12:18 SP (Rec: 05/14/22 13:04 SP [id number]) OP-PT Subjective Patient Comments Patient Comments Pt reports told [facility] last tx feeling in L big toe and able move 3 toes on R foot. Pt stated would like to be able to lay on his belly again to stretchout the front of his hips but his lack of trunk extension prevents this from happening. PT-OP-G Mobility & Gait Start: 03/08/22 17:00 Freq: Status: Active Protocol: Document 03/08/22 11:15 DCW (Rec: 03/11/22 12:14 DCW [id number]) OP Mobility Evaluation Transfers Bed to Chair Transfers Mainly slide-board, was able to transfer w/c to bed SBA using UE Car Transfers Slide board transfer Wheelchair Management Type of Wheelchair Manual w/c PT-OP-H Neuro Start: 03/08/22 17:00 Freq: Status: Active Protocol: Document 03/08/22 11:15 DCW (Rec: 03/11/22 12:14 DCW [id number]) Sensation Evaluation Gross Sensation Gross Sensation Left LE Impaired,Right LE Impaired,Trunk Impaired Sensation Description Paresthesia,Numbness,Tingling, Pins & [place],Burning Dermatome Impairments T10,T11,T12,L1,L2,L3,L4,L5,S1, S2,S3,S4-5 Location Details Right Leg Light Touch Impaired Sharp/Dull Absent Deep Pressure Impaired Hot/Cold Absent Protective Sensation Absent Proprioception (Position) Impaired Kinesthesia (Movement) Impaired Two-Point Discrimination Absent Tactile Localization Absent Left Leg Light Touch Absent Sharp/Dull Absent Deep Pressure Absent Hot/Cold Absent Protective Sensation Absent Proprioception (Position) Absent Kinesthesia (Movement) Impaired Two-Point Discrimination Absent Tactile Localization Absent Deep Tendon Reflex & Clonus Assessment Deep Tendon Reflex Right Achilles Deep Tendon Reflex 0 Absent Right Patellar Deep Tendon Reflex 0 Absent Left Achilles Deep Tendon Reflex 0 Absent Left Patellar Deep Tendon Reflex 0 Absent Muscle Tone Tone Assessment Right Lower Extremity Flexor Tone Description Severe Hypotonicity Extensor Tone Description Severe Hypotonicity Left Lower Extremity Flexor Tone Description Severe Hypotonicity Extensor Tone Description Severe Hypotonicity PT-OP-J Posture/Palpation/Skin Start: 03/08/22 17:00 Freq: Status: Active Protocol: Document 03/08/22 11:15 DCW (Rec: 03/11/22 12:19 DCW [id number]) Posture Evaluation Comments Posture Comments Limitations in sitting due to loss of abdominal motor function, able to use upper extremities to reach out and change center of gravity in order to stabilize PT-OP-Q Treatments Start: 03/08/22 17:00 Freq: Status: Active Protocol: Document 05/14/22 12:18 SP (Rec: 05/14/22 13:04 SP [id number]) Cardio Equipment Recumbent Elliptical (Biodex) Duration (Minutes) 10 Resistance 3 (553 steps) Seat Position 10 w/ dycem on seat, 35-40 RPM UEs &LEs Other w/c<->Biodex transfer using UEs, gait belt & slide board, ModA x1 Therapeutic Exercises Supine Exercises Hip Flexor Stretch Supine Exercise Name Hip Flexor Stretch (LE extension) Side bilateral Resistance manual Comments putting hip and knee into increased extension with over press. posteriorly Knee to Chest Supine Exercise Name Single KtC Side bilateral Equipment Used manual Comments good feedback response Other Exercises quadruped Other Exercise Name rocking f/b, therapist Mod A control movement, pt self heavy support BUEs Reps/Minutes x5 reps Comments good hip flexion stretching, good feedback response from pt Therapeutic Activity Therapeutic Activity supine>prone>quadruped Name Mod/Max A x1, heavy pt BUE support Reps/Minutes x2 Comments support for LE positioning, trunk support to allow UEs to get under trunk and good lift into quadruped, Min cues for chest lift serratus press support. - pt very excited able to get into this postion. sit<> supine Name Min A x1 LE support Reps/Minutes x1 Comments Sit>sup: Min A via gait belt on trunk anteriorly, Mod A support for LEs onto table assist pt grasping. Cued slow pacing for TA contraction. Sup >Sit Mod A LE off EOtable, self trunk right to sit w/ heavy BUE on table. Slide Board Transfer Name To and from black mat table ( wc) Reps/Minutes 2 Comments Pt SB/CGA for slideboard transfer. Manual Therapy Treatment Soft Tissue Mobilization LE, back Body Location quads, TFL, LS: ES, gluts Mobilization Type Instrument Assisted Intensity/Depth Moderate Comments supine: anterior BLEs, prone ( head/shlds off table): ES & gluts *Good feedback from pt: this feels like such a great massage to my muscles. I am going to try and self massage front of my legs at home seated in w/c. PT-OP-T Assessment and Plan Start: 03/08/22 17:00 Freq: Status: Active Protocol: Document 05/14/22 12:18 SP (Rec: 05/14/22 13:04 SP [id number]) Physical Therapy Assessment Goals Three Impairment Pt does not have any motor function throughout bilateral LEs Boiler Plant Operator Goal (LTG) Pt to demonstrate 1/5 trace motor contraction in at least one quad in order to begin focus on LE mobility if neural functional return begins. LTG Duration 05/31/22 Two Impairment Pt struggles to perform slideboard car transfer due to upward tilt Fpc Goal (LTG) Pt to demonstrate car transfer SBA using slideboard. LTG Duration 05/31/22 One Impairment Pt does not have an appropriate home exercise program Short Term Goal (STG) Pt to be independent and compliant with an appropriate HEP STG Duration 04/19/22 Assessment Summary Assessment Improvement use of SBT on/off biodex <> w/c improve pt UE support and trunk effort, less assist from therapist. Pt able to get into prone upper body off table and quadruped with therapist support and heavy BUE WB, cues for chest lift to allow serratus press quadruped form. Improvement in sit>supine Min A LLE onto table due to back of shoe caught under table,rest, self UE support and hip flexor tone . Physical Therapy Plan Frequency and Duration Frequency of Treatment 2x/Week Duration of treatment (weeks) 12 Plan of Care Start Date 03/08/22 Plan of Care End Date 05/31/22 Therapeutic Interventions Therapeutic Interventions Aquatic Therapy,Balance Training,Coordination Training ,Gait Training,Home Exercise Program,Manual Therapy, Neuromuscular Re-education, Orthotic/Prosthetic Management ,Patient/Caregiver Education, Self-Care/Home Management, Sensory Integration,Soft Tissue Mobilization, Therapeutic Activities, Therapeutic Exercises, Wheelchair Management Next Visit Focus/Plan Next Note Type Treatment Note Next Visit Plan Continue into quadruped mobility. Continue UE and core strengthening, LE PROM. POC: Transfers, mobility, LE ROM *Consider sit to stander in future when has better TA and hip abd/add control.
--- NOTE | 2022-05-15 16:02 | PT.OTN ---
Current Diagnoses Paraplegia, unspecified (05/15/22) Other specified personal risk factors, not elsewhere classified (05/15/22) Other specified postprocedural states (05/15/22) Physical Therapy Treatment Note PT-OP-A Visit Information Start: 03/08/22 17:00 Freq: Status: Active Protocol: Document 05/15/22 15:18 DCW (Rec: 05/15/22 16:02 DCW [id number]) Out-Patient Physical Therapy Visit Information Visit Information Visit Type Treatment Note Visit Start Time 15:18 Visit Stop Time 16:00 Total Visit Minutes 42 Visit Number 16 Number of DIRECTOR DIGITAL COMMUNICATIONS Visits 0 Evaluation Information Evaluation Date 03/08/22 PT-OP-B Current Condition Start: 03/08/22 17:00 Freq: Status: Active Protocol: Document 03/08/22 11:15 DCW (Rec: 03/08/22 17:11 DCW [id number]) Current Condition History of Current Condition Onset Date 12/16/21 Current Complaints Paraplegia History of Current Condition Pt is a 71 year old male with a very unfortunate medical history. Pt was [place] on 12/16/21 with a friend, finished up, drive back to his friend's home to drop him off, and noticed his left leg was collapsing. By the time pt drove home, both legs were giving out and numb. Pt was suddenly paralized from the waist down, was taken to the ED, and was flown to [facility] on 12/17/21. The following day, he underwent a laminectomy to relieve pressure from the thoracic epidural hematoma which had developed following his hike, which was pressing on his spinal cord. Following surgery , pt was in recovery for a week and was then transfered to rehab for 20 days, when he was finally discharged home in a wheelchair on 01/19/22. Pt reports his surgeon informed him that it is a possibility that he gets some return of nerve function. Has experienced some changes in his right LE, but has no motor function at this time from ~ T10 down. Minimal sensory return on right side, none on left. Pt has been anxious to get in to therapy and do everything he can to help return to function. Pt's , who attended his evaluation, notes that she has been doing a lot of PROM in his legs at night to keep everything moving. Pt can feel some stretching during PROM in his right leg. Pt has additionally already started occupational therapy, and has been practicing some seated stabilization. Pt transfers with a slide board, but notes it is difficult to do into his car, because he has to transfer upward at an incline. Treatment Goals Patient/Caregiver Goals I will do anything possible to get out of this wheelchair. My neurologist told me he has seen people recover from this , so I am not giving up hope. PT-OP-C Subjective Start: 03/08/22 17:00 Freq: Status: Active Protocol: Document 05/15/22 15:18 DCW (Rec: 05/15/22 16:02 DCW [id number]) OP-PT Subjective Patient Comments Patient Comments Pt reports his legs are feeling more stiff than usual today. PT-OP-G Mobility & Gait Start: 03/08/22 17:00 Freq: Status: Active Protocol: Document 03/08/22 11:15 DCW (Rec: 03/11/22 12:14 DCW [id number]) OP Mobility Evaluation Transfers Bed to Chair Transfers Mainly slide-board, was able to transfer w/c to bed SBA using UE Car Transfers Slide board transfer Wheelchair Management Type of Wheelchair Manual w/c PT-OP-H Neuro Start: 03/08/22 17:00 Freq: Status: Active Protocol: Document 03/08/22 11:15 DCW (Rec: 03/11/22 12:14 DCW [id number]) Sensation Evaluation Gross Sensation Gross Sensation Left LE Impaired,Right LE Impaired,Trunk Impaired Sensation Description Paresthesia,Numbness,Tingling, Pins & [place],Burning Dermatome Impairments T10,T11,T12,L1,L2,L3,L4,L5,S1, S2,S3,S4-5 Location Details Right Leg Light Touch Impaired Sharp/Dull Absent Deep Pressure Impaired Hot/Cold Absent Protective Sensation Absent Proprioception (Position) Impaired Kinesthesia (Movement) Impaired Two-Point Discrimination Absent Tactile Localization Absent Left Leg Light Touch Absent Sharp/Dull Absent Deep Pressure Absent Hot/Cold Absent Protective Sensation Absent Proprioception (Position) Absent Kinesthesia (Movement) Impaired Two-Point Discrimination Absent Tactile Localization Absent Deep Tendon Reflex & Clonus Assessment Deep Tendon Reflex Right Achilles Deep Tendon Reflex 0 Absent Right Patellar Deep Tendon Reflex 0 Absent Left Achilles Deep Tendon Reflex 0 Absent Left Patellar Deep Tendon Reflex 0 Absent Muscle Tone Tone Assessment Right Lower Extremity Flexor Tone Description Severe Hypotonicity Extensor Tone Description Severe Hypotonicity Left Lower Extremity Flexor Tone Description Severe Hypotonicity Extensor Tone Description Severe Hypotonicity PT-OP-J Posture/Palpation/Skin Start: 03/08/22 17:00 Freq: Status: Active Protocol: Document 03/08/22 11:15 DCW (Rec: 03/11/22 12:19 DCW [id number]) Posture Evaluation Comments Posture Comments Limitations in sitting due to loss of abdominal motor function, able to use upper extremities to reach out and change center of gravity in order to stabilize PT-OP-Q Treatments Start: 03/08/22 17:00 Freq: Status: Active Protocol: Document 05/15/22 15:18 DCW (Rec: 05/15/22 16:02 DCW [id number]) Cardio Equipment Recumbent Elliptical (Biodex) Duration (Minutes) 10 Resistance 4 Seat Position 10 w/ dycem on seat Other w/c<->Biodex transfer using UEs, gait belt, MaxA x1 Therapeutic Exercises Supine Exercises Hip Adduction Supine Exercise Name Adduction or R hip Comments 2-/5 on own, improved motion with therapist tapping adductors Adductor Stretch Supine Exercise Name Manual butterfly stretch Hip Flexor Stretch Supine Exercise Name Hip Flexor Stretch (LE extension) Side bilateral Resistance manual Comments putting hip and knee into increased extension with over press. posteriorly Hamstring Stretch Supine Exercise Name HS stretch Side bilateral Equipment Used manual Reps/Minutes 2 min hold x3 Knee to Chest Supine Exercise Name Single KtC Side bilateral Equipment Used manual Comments good feedback response Other Exercises quadruped Other Exercise Name rock f/b, lat, therapist Mod A control movement, pt self heavy support BUEs Reps/Minutes x5 reps Comments good hip flexion stretching, good feedback response from pt Therapeutic Activity Therapeutic Activity supine>prone>quadruped Name Mod/Max A x1, heavy pt BUE support Reps/Minutes x2 Comments support for LE positioning, trunk support to allow UEs to get under trunk and good lift into quadruped, Min cues for chest lift serratus press support. - pt very excited able to get into this postion. PT-OP-T Assessment and Plan Start: 03/08/22 17:00 Freq: Status: Active Protocol: Document 05/15/22 15:18 DCW (Rec: 05/15/22 16:02 DCW [id number]) Physical Therapy Assessment Impairments Impairments Activity Tolerance,Balance, Coordination,Functional Activities,Functional Mobility ,Gait,Integument,Sensation, Soft Tissue Mobility,Strength, Tone,Transfers Goals Three Impairment Pt does not have any motor function throughout bilateral LEs Jail Goal (LTG) Pt to demonstrate 1/5 trace motor contraction in at least one quad in order to begin focus on LE mobility if neural functional return begins. LTG Duration 05/31/22 Two Impairment Pt struggles to perform slideboard car transfer due to upward tilt Orthodontic Laboratory Technician Goal (LTG) Pt to demonstrate car transfer SBA using slideboard. LTG Duration 05/31/22 One Impairment Pt does not have an appropriate home exercise program Short Term Goal (STG) Pt to be independent and compliant with an appropriate HEP STG Duration 04/19/22 Assessment Summary Assessment Pt very happy spending time in quadruped, improving ability to trasfer supine->quad, slight improvement with right adductor contraction. Physical Therapy Plan Frequency and Duration Frequency of Treatment 2x/Week Duration of treatment (weeks) 12 Plan of Care Start Date 03/08/22 Plan of Care End Date 05/31/22 Therapeutic Interventions Therapeutic Interventions Aquatic Therapy,Balance Training,Coordination Training ,Gait Training,Home Exercise Program,Manual Therapy, Neuromuscular Re-education, Orthotic/Prosthetic Management ,Patient/Caregiver Education, Self-Care/Home Management, Sensory Integration,Soft Tissue Mobilization, Therapeutic Activities, Therapeutic Exercises, Wheelchair Management Next Visit Focus/Plan Next Note Type Treatment Note Next Visit Plan Continue into quadruped mobility. Continue UE and core strengthening, LE PROM. POC: Transfers, mobility, LE ROM *Consider sit to stander in future when has better TA and hip abd/add control.
--- NOTE | 2022-05-20 16:01 | PT.OTN ---
Current Diagnoses Paraplegia, unspecified (05/20/22) Other specified personal risk factors, not elsewhere classified (05/20/22) Other specified postprocedural states (05/20/22) Physical Therapy Treatment Note PT-OP-A Visit Information Start: 03/08/22 17:00 Freq: Status: Active Protocol: Document 05/20/22 15:22 DCW (Rec: 05/20/22 16:01 DCW [id number]) Out-Patient Physical Therapy Visit Information Visit Information Visit Type Treatment Note Visit Start Time 15:22 Visit Stop Time 16:00 Total Visit Minutes 38 Visit Number 17 Number of ONLINE PROJECT MANAGER Visits 0 Evaluation Information Evaluation Date 03/08/22 PT-OP-B Current Condition Start: 03/08/22 17:00 Freq: Status: Active Protocol: Document 03/08/22 11:15 DCW (Rec: 03/08/22 17:11 DCW [id number]) Current Condition History of Current Condition Onset Date 12/16/21 Current Complaints Paraplegia History of Current Condition Pt is a 71 year old male with a very unfortunate medical history. Pt was hiking [place] on 12/16/21 with a friend, finished up, drive back to his friend's home to drop him off, and noticed his left leg was collapsing. By the time pt drove home, both legs were giving out and numb. Pt was suddenly paralized from the waist down, was taken to the ED, and was flown to [facility] on 12/17/21. The following day, he underwent a laminectomy to relieve pressure from the thoracic epidural hematoma which had developed following his hike, which was pressing on his spinal cord. Following surgery , pt was in recovery for a week and was then transfered to rehab for 20 days, when he was finally discharged home in a wheelchair on 01/19/22. Pt reports his surgeon informed him that it is a possibility that he gets some return of nerve function. Has experienced some changes in his right LE, but has no motor function at this time from ~ T10 down. Minimal sensory return on right side, none on left. Pt has been anxious to get in to therapy and do everything he can to help return to function. Pt's , who attended his evaluation, notes that she has been doing a lot of PROM in his legs at night to keep everything moving. Pt can feel some stretching during PROM in his right leg. Pt has additionally already started occupational therapy, and has been practicing some seated stabilization. Pt transfers with a slide board, but notes it is difficult to do into his car, because he has to transfer upward at an incline. Treatment Goals Patient/Caregiver Goals I will do anything possible to get out of this wheelchair. My neurologist told me he has seen people recover from this , so I am not giving up hope. PT-OP-C Subjective Start: 03/08/22 17:00 Freq: Status: Active Protocol: Document 05/20/22 15:22 DCW (Rec: 05/20/22 16:01 DCW [id number]) OP-PT Subjective Patient Comments Patient Comments Pt excitedly notes that he was able to move his right foot earlier today. PT-OP-G Mobility & Gait Start: 03/08/22 17:00 Freq: Status: Active Protocol: Document 03/08/22 11:15 DCW (Rec: 03/11/22 12:14 DCW [id number]) OP Mobility Evaluation Transfers Bed to Chair Transfers Mainly slide-board, was able to transfer w/c to bed SBA using UE Car Transfers Slide board transfer Wheelchair Management Type of Wheelchair Manual w/c PT-OP-H Neuro Start: 03/08/22 17:00 Freq: Status: Active Protocol: Document 03/08/22 11:15 DCW (Rec: 03/11/22 12:14 DCW [id number]) Sensation Evaluation Gross Sensation Gross Sensation Left LE Impaired,Right LE Impaired,Trunk Impaired Sensation Description Paresthesia,Numbness,Tingling, Pins & [place],Burning Dermatome Impairments T10,T11,T12,L1,L2,L3,L4,L5,S1, S2,S3,S4-5 Location Details Right Leg Light Touch Impaired Sharp/Dull Absent Deep Pressure Impaired Hot/Cold Absent Protective Sensation Absent Proprioception (Position) Impaired Kinesthesia (Movement) Impaired Two-Point Discrimination Absent Tactile Localization Absent Left Leg Light Touch Absent Sharp/Dull Absent Deep Pressure Absent Hot/Cold Absent Protective Sensation Absent Proprioception (Position) Absent Kinesthesia (Movement) Impaired Two-Point Discrimination Absent Tactile Localization Absent Deep Tendon Reflex & Clonus Assessment Deep Tendon Reflex Right Achilles Deep Tendon Reflex 0 Absent Right Patellar Deep Tendon Reflex 0 Absent Left Achilles Deep Tendon Reflex 0 Absent Left Patellar Deep Tendon Reflex 0 Absent Muscle Tone Tone Assessment Right Lower Extremity Flexor Tone Description Severe Hypotonicity Extensor Tone Description Severe Hypotonicity Left Lower Extremity Flexor Tone Description Severe Hypotonicity Extensor Tone Description Severe Hypotonicity PT-OP-J Posture/Palpation/Skin Start: 03/08/22 17:00 Freq: Status: Active Protocol: Document 03/08/22 11:15 DCW (Rec: 03/11/22 12:19 DCW [id number]) Posture Evaluation Comments Posture Comments Limitations in sitting due to loss of abdominal motor function, able to use upper extremities to reach out and change center of gravity in order to stabilize PT-OP-Q Treatments Start: 03/08/22 17:00 Freq: Status: Active Protocol: Document 05/20/22 15:22 DCW (Rec: 05/20/22 16:01 DC [id number]) Cardio Equipment Recumbent Elliptical (Biodex) Duration (Minutes) 10 Resistance 4 Seat Position 10 w/ dycem on seat Other w/c<->Biodex transfer using UEs, gait belt, MaxA x1 Therapeutic Exercises Supine Exercises Hip Adduction Supine Exercise Name Adduction or R hip Comments 2-/5 on own, improved motion with therapist tapping adductors Adductor Stretch Supine Exercise Name Manual butterfly stretch Hip Flexor Stretch Supine Exercise Name Hip Flexor Stretch (LE extension) Side bilateral Resistance manual Comments putting hip and knee into increased extension with over press Hamstring Stretch Supine Exercise Name HS stretch Side bilateral Equipment Used manual Reps/Minutes 2 min hold x3 Knee to Chest Supine Exercise Name Single KtC Side bilateral Equipment Used manual Comments good feedback response PT-OP-T Assessment and Plan Start: 03/08/22 17:00 Freq: Status: Active Protocol: Document 05/20/22 15:22 DCW (Rec: 05/20/22 16:01 [facility] [id number]) Physical Therapy Assessment Impairments Impairments Activity Tolerance,Balance, Coordination,Functional Activities,Functional Mobility ,Gait,Integument,Sensation, Soft Tissue Mobility,Strength, Tone,Transfers Goals Three Impairment Pt does not have any motor function throughout bilateral LEs Prison Goal (LTG) Pt to demonstrate 1/5 trace motor contraction in at least one quad in order to begin focus on LE mobility if neural functional return begins. LTG Duration 05/31/22 Two Impairment Pt struggles to perform slideboard car transfer due to upward tilt Lockstitch Collar Setter Goal (LTG) Pt to demonstrate car transfer SBA using slideboard. LTG Duration 05/31/22 One Impairment Pt does not have an appropriate home exercise program Short Term Goal (STG) Pt to be independent and compliant with an appropriate HEP STG Duration 04/19/22 Assessment Summary Assessment Pt unable to replicate the movement of his foot in therapy today, which caused him some disappointment, but overall still tolerating treatment fairly well. Physical Therapy Plan Frequency and Duration Frequency of Treatment 2x/Week Duration of treatment (weeks) 12 Plan of Care Start Date 03/08/22 Plan of Care End Date 05/31/22 Therapeutic Interventions Therapeutic Interventions Aquatic Therapy,Balance Training,Coordination Training ,Gait Training,Home Exercise Program,Manual Therapy, Neuromuscular Re-education, Orthotic/Prosthetic Management ,Patient/Caregiver Education, Self-Care/Home Management, Sensory Integration,Soft Tissue Mobilization, Therapeutic Activities, Therapeutic Exercises, Wheelchair Management Next Visit Focus/Plan Next Note Type Treatment Note Next Visit Plan Continue into quadruped mobility. Continue UE and core strengthening, LE PROM. POC: Transfers, mobility, LE ROM *Consider sit to stander in future when has better TA and hip abd/add control.
--- NOTE | 2022-05-28 13:00 | PT.OTN ---
Current Diagnoses Paraplegia, unspecified (05/28/22) Other specified personal risk factors, not elsewhere classified (05/28/22) Other specified postprocedural states (05/28/22) Physical Therapy Treatment Note PT-OP-A Visit Information Start: 03/08/22 17:00 Freq: Status: Active Protocol: Document 05/28/22 12:19 SP (Rec: 05/28/22 13:17 SP [id number]) Out-Patient Physical Therapy Visit Information Visit Information Visit Type Treatment Note Visit Start Time 12:19 Visit Stop Time 13:00 Total Visit Minutes 41 Visit Number 18 Number of FITTINGS FINISHER Visits 1 Evaluation Information Evaluation Date 03/08/22 PT-OP-B Current Condition Start: 03/08/22 17:00 Freq: Status: Active Protocol: Document 03/08/22 11:15 DCW (Rec: 03/08/22 17:11 DCW [id number]) Current Condition History of Current Condition Onset Date 12/16/21 Current Complaints Paraplegia History of Current Condition Pt is a 71 year old male with a very unfortunate medical history. Pt was hiking [employer] on 12/16/21 with a friend, finished up, drive back to his friend's home to drop him off, and noticed his left leg was collapsing. By the time pt drove home, both legs were giving out and numb. Pt was suddenly paralized from the waist down, was taken to the ED, and was flown to [facility] on 12/17/21. The following day, he underwent a laminectomy to relieve pressure from the thoracic epidural hematoma which had developed following his hike, which was pressing on his spinal cord. Following surgery , pt was in recovery for a week and was then transfered to rehab for 20 days, when he was finally discharged home in a wheelchair on 01/19/22. Pt reports his surgeon informed him that it is a possibility that he gets some return of nerve function. Has experienced some changes in his right LE, but has no motor function at this time from ~ T10 down. Minimal sensory return on right side, none on left. Pt has been anxious to get in to therapy and do everything he can to help return to function. Pt's , who attended his evaluation, notes that she has been doing a lot of PROM in his legs at night to keep everything moving. Pt can feel some stretching during PROM in his right leg. Pt has additionally already started occupational therapy, and has been practicing some seated stabilization. Pt transfers with a slide board, but notes it is difficult to do into his car, because he has to transfer upward at an incline. Treatment Goals Patient/Caregiver Goals I will do anything possible to get out of this wheelchair. My neurologist told me he has seen people recover from this , so I am not giving up hope. PT-OP-C Subjective Start: 03/08/22 17:00 Freq: Status: Active Protocol: Document 05/28/22 12:19 SP (Rec: 05/28/22 13:17 SP [id number]) OP-PT Subjective Patient Comments Patient Comments Pt states slowly grinding along. Having more spasticity in L leg since started PT, R leg still about the same. Thinks R foot is moving but not happening consistantly and on command. Able to move toes on R foot and 3rd toe on L. He states when does upper body weights tries to sit not allowing back touch back rest in w/c. PT-OP-G Mobility & Gait Start: 03/08/22 17:00 Freq: Status: Active Protocol: Document 03/08/22 11:15 DCW (Rec: 03/11/22 12:14 DCW [id number]) OP Mobility Evaluation Transfers Bed to Chair Transfers Mainly slide-board, was able to transfer w/c to bed SBA using UE Car Transfers Slide board transfer Wheelchair Management Type of Wheelchair Manual w/c PT-OP-H Neuro Start: 03/08/22 17:00 Freq: Status: Active Protocol: Document 03/08/22 11:15 DCW (Rec: 03/11/22 12:14 DCW [id number]) Sensation Evaluation Gross Sensation Gross Sensation Left LE Impaired,Right LE Impaired,Trunk Impaired Sensation Description Paresthesia,Numbness,Tingling, Pins & [place],Burning Dermatome Impairments T10,T11,T12,L1,L2,L3,L4,L5,S1, S2,S3,S4-5 Location Details Right Leg Light Touch Impaired Sharp/Dull Absent Deep Pressure Impaired Hot/Cold Absent Protective Sensation Absent Proprioception (Position) Impaired Kinesthesia (Movement) Impaired Two-Point Discrimination Absent Tactile Localization Absent Left Leg Light Touch Absent Sharp/Dull Absent Deep Pressure Absent Hot/Cold Absent Protective Sensation Absent Proprioception (Position) Absent Kinesthesia (Movement) Impaired Two-Point Discrimination Absent Tactile Localization Absent Deep Tendon Reflex & Clonus Assessment Deep Tendon Reflex Right Achilles Deep Tendon Reflex 0 Absent Right Patellar Deep Tendon Reflex 0 Absent Left Achilles Deep Tendon Reflex 0 Absent Left Patellar Deep Tendon Reflex 0 Absent Muscle Tone Tone Assessment Right Lower Extremity Flexor Tone Description Severe Hypotonicity Extensor Tone Description Severe Hypotonicity Left Lower Extremity Flexor Tone Description Severe Hypotonicity Extensor Tone Description Severe Hypotonicity PT-OP-J Posture/Palpation/Skin Start: 03/08/22 17:00 Freq: Status: Active Protocol: Document 03/08/22 11:15 DCW (Rec: 03/11/22 12:19 DCW [id number]) Posture Evaluation Comments Posture Comments Limitations in sitting due to loss of abdominal motor function, able to use upper extremities to reach out and change center of gravity in order to stabilize PT-OP-Q Treatments Start: 03/08/22 17:00 Freq: Status: Active Protocol: Document 05/28/22 12:19 SP (Rec: 05/28/22 13:17 SP [id number]) Cardio Equipment Recumbent Elliptical (Biodex) Duration (Minutes) 10 Resistance 4 Seat Position 10 w/ dycem on seat (BUEs mainly, LLE can move peddle) Other w/c<->Biodex transfer using UEs, gait belt, slide brd Min/ Mod Ax1,30-35RPM Therapeutic Exercises Supine Exercises LTR Supine Exercise Name initiated in PT Side bilateral Resistance PROM tolerant range Reps/Minutes x5 B, 5 sec hold. Comments good feedback response decrease trunk tone, L more limited Hamstring Stretch Supine Exercise Name HS stretch Side bilateral Equipment Used manual Reps/Minutes 2 min hold x3 Knee to Chest Supine Exercise Name Single KtC Side bilateral Equipment Used manual Comments good feedback response Sitting Exercises TS ext/ tall chest lift posture Sitting Exercise Name added: TS ext/ tall posturing Comments cued UEs on legs, chest lift/ squeeze scaps rhomboid fac) Other Exercises quadruped Other Exercise Name rock f/b, lat, therapist Mod A control movement, pt self heavy support BUEs Reps/Minutes x5 reps Comments good hip flexion stretching, good feedback response from pt Therapeutic Activity Therapeutic Activity supine>prone>quadruped Name Mod/Max A x1, heavy pt BUE support Reps/Minutes x2 Comments support for LE positioning, trunk support to allow UEs to get under trunk and good lift into quadruped, Min cues for chest lift serratus press support. - pt very excited able to get into this postion. sit<> supine Name Min A x1 LE support Reps/Minutes x1 Comments Sit>sup: Min A via gait belt on trunk anteriorly, Mod A support for LEs onto table assist pt grasping. Cued slow pacing for TA contraction. Sup >Sit Mod A LE off EOtable, self trunk right to sit w/ heavy BUE on table. PT-OP-T Assessment and Plan Start: 03/08/22 17:00 Freq: Status: Active Protocol: Document 05/28/22 12:19 SP (Rec: 05/28/22 13:17 SP [id number]) Physical Therapy Assessment Goals Three Impairment Pt does not have any motor function throughout bilateral LEs Inspector Process Goal (LTG) Pt to demonstrate 1/5 trace motor contraction in at least one quad in order to begin focus on LE mobility if neural functional return begins. LTG Duration 05/31/22 Two Impairment Pt struggles to perform slideboard car transfer due to upward tilt Usp Goal (LTG) Pt to demonstrate car transfer SBA using slideboard. LTG Duration 05/31/22 One Impairment Pt does not have an appropriate home exercise program Short Term Goal (STG) Pt to be independent and compliant with an appropriate HEP STG Duration 04/19/22 Assessment Summary Assessment Pt responded well to manual PROM, Mod A for transfers, Min supine LR L> Mod/Max A into quadruped, wt shifting f/b over UEs cued chest lift support by therapist for trunk /pelvic support into/ out of knee/hip flex/ext. Demonstrates good UE support into WB and ableto reposition LUE when needed. Physical Therapy Plan Frequency and Duration Frequency of Treatment 2x/Week Duration of treatment (weeks) 12 Plan of Care Start Date 03/08/22 Plan of Care End Date 05/31/22 Therapeutic Interventions Therapeutic Interventions Aquatic Therapy,Balance Training,Coordination Training ,Gait Training,Home Exercise Program,Manual Therapy, Neuromuscular Re-education, Orthotic/Prosthetic Management ,Patient/Caregiver Education, Self-Care/Home Management, Sensory Integration,Soft Tissue Mobilization, Therapeutic Activities, Therapeutic Exercises, Wheelchair Management Next Visit Focus/Plan Next Note Type Progress Note Next Visit Plan Update POC, expires 05/31/22. Continue into quadruped mobility. Continue UE and core strengthening, LE PROM. POC: Transfers, mobility, LE ROM *Consider sit to stander in future when has better TA and hip abd/add control.
--- NOTE | 2022-06-04 12:53 | PT.OTN ---
Current Diagnoses Paraplegia, unspecified (06/04/22) Other specified personal risk factors, not elsewhere classified (06/04/22) Other specified postprocedural states (06/04/22) Physical Therapy Treatment Note PT-OP-A Visit Information Start: 03/08/22 17:00 Freq: Status: Active Protocol: Document 06/04/22 12:02 DCW (Rec: 06/04/22 12:53 DCW [id number]) Out-Patient Physical Therapy Visit Information Visit Information Visit Type Progress Note Visit Start Time 12:02 Visit Stop Time 12:45 Total Visit Minutes 43 Visit Number 19 Number of PLATE DRYING MACHINE TENDER Visits 0 Evaluation Information Evaluation Date 03/08/22 PT-OP-B Current Condition Start: 03/08/22 17:00 Freq: Status: Active Protocol: Document 03/08/22 11:15 DCW (Rec: 03/08/22 17:11 DCW [id number]) Current Condition History of Current Condition Onset Date 12/16/21 Current Complaints Paraplegia History of Current Condition Pt is a 71 year old male with a very unfortunate medical history. Pt was hiking [place] on 12/16/21 with a friend, finished up, drive back to his friend's home to drop him off, and noticed his left leg was collapsing. By the time pt drove home, both legs were giving out and numb. Pt was suddenly paralized from the waist down, was taken to the ED, and was flown to [facility] on 12/17/21. The following day, he underwent a laminectomy to relieve pressure from the thoracic epidural hematoma which had developed following his hike, which was pressing on his spinal cord. Following surgery , pt was in recovery for a week and was then transfered to rehab for 20 days, when he was finally discharged home in a wheelchair on 01/19/22. Pt reports his surgeon informed him that it is a possibility that he gets some return of nerve function. Has experienced some changes in his right LE, but has no motor function at this time from ~ T10 down. Minimal sensory return on right side, none on left. Pt has been anxious to get in to therapy and do everything he can to help return to function. Pt's , who attended his evaluation, notes that she has been doing a lot of PROM in his legs at night to keep everything moving. Pt can feel some stretching during PROM in his right leg. Pt has additionally already started occupational therapy, and has been practicing some seated stabilization. Pt transfers with a slide board, but notes it is difficult to do into his car, because he has to transfer upward at an incline. Treatment Goals Patient/Caregiver Goals I will do anything possible to get out of this wheelchair. My neurologist told me he has seen people recover from this , so I am not giving up hope. PT-OP-C Subjective Start: 03/08/22 17:00 Freq: Status: Active Protocol: Document 06/04/22 12:02 DCW (Rec: 06/04/22 12:53 DCW [id number]) OP-PT Subjective Patient Comments Patient Comments I'm feelting pretty great. Notes he is working on weaning himself off his muscle relaxors and pain pills. PT-OP-G Mobility & Gait Start: 03/08/22 17:00 Freq: Status: Active Protocol: Document 06/04/22 12:02 DCW (Rec: 06/04/22 12:32 DCW [id number]) OP Mobility Evaluation Transfers Bed to Chair Transfers Transfers using UE Wheelchair Management Type of Wheelchair Manual w/c PT-OP-H Neuro Start: 03/08/22 17:00 Freq: Status: Active Protocol: Document 06/04/22 12:02 DCW (Rec: 06/04/22 12:32 DCW [id number]) Sensation Evaluation Gross Sensation Gross Sensation Left LE Impaired,Right LE Impaired,Trunk Impaired Sensation Description Paresthesia,Numbness,Tingling, Pins & [place],Burning Dermatome Impairments L1,L2,L3,L4,L5,S1,S2,S3,S4-5 Location Details Right Leg Light Touch Impaired Sharp/Dull Impaired Deep Pressure Impaired Hot/Cold Absent Protective Sensation Absent Proprioception (Position) Impaired Kinesthesia (Movement) Impaired Two-Point Discrimination Absent Tactile Localization Absent Left Leg Light Touch Absent Sharp/Dull Absent Deep Pressure Absent Hot/Cold Absent Protective Sensation Absent Proprioception (Position) Absent Kinesthesia (Movement) Impaired Two-Point Discrimination Absent Tactile Localization Absent Deep Tendon Reflex & Clonus Assessment Deep Tendon Reflex Right Achilles Deep Tendon Reflex 1+ Diminished Right Patellar Deep Tendon Reflex 2+ Normal Left Achilles Deep Tendon Reflex 1+ Diminished Left Patellar Deep Tendon Reflex 0 Absent Muscle Tone Tone Assessment Right Lower Extremity Flexor Tone Description Mild Hypotonicity Extensor Tone Description Mild Hypotonicity Left Lower Extremity Flexor Tone Description Mild Hypotonicity Extensor Tone Description Mild Hypotonicity PT-OP-J Posture/Palpation/Skin Start: 03/08/22 17:00 Freq: Status: Active Protocol: Document 06/04/22 12:02 DCW (Rec: 06/04/22 12:32 DCW [id number]) Posture Evaluation Comments Posture Comments Improving abdominal motor function, able to utilize core muscles in order to self- correct when begins to lose balance, not able to correct with gentle push outside of KIARA PT-OP-Q Treatments Start: 03/08/22 17:00 Freq: Status: Active Protocol: Document 06/04/22 12:02 DCW (Rec: 06/04/22 12:53 [facility] [id number]) Cardio Equipment Recumbent Elliptical (Biodex) Duration (Minutes) 10 Resistance 4 Seat Position 10 w/ dycem on seat (BUEs mainly, LLE can move peddle) Other w/c<->Biodex transfer using UEs, gait belt, slide brd Min/ Mod Ax1,30-35RPM Therapeutic Exercises Supine Exercises Hip Adduction Supine Exercise Name Adduction or R hip Comments 2-/5 on own, improved motion with therapist tapping adductors Adductor Stretch Supine Exercise Name Manual butterfly stretch Hip Flexor Stretch Supine Exercise Name Hip Flexor Stretch (LE extension) Side bilateral Resistance manual Comments putting hip and knee into increased extension with over press Hamstring Stretch Supine Exercise Name HS stretch Side bilateral Equipment Used manual Reps/Minutes 2 min hold x3 Knee to Chest Supine Exercise Name Single KtC Side bilateral Equipment Used manual Comments good feedback response PT-OP-T Assessment and Plan Start: 03/08/22 17:00 Freq: Status: Active Protocol: Document 06/04/22 12:02 DCW (Rec: 06/04/22 12:53 [facility] [id number]) Physical Therapy Assessment Impairments Impairments Activity Tolerance,Balance, Coordination,Functional Activities,Functional Mobility ,Gait,Integument,Sensation, Soft Tissue Mobility,Strength, Tone,Transfers Goals Three Impairment Pt does not have any motor function throughout bilateral LEs Mcfp Goal (LTG) Pt to demonstrate 1/5 trace motor contraction in at least one quad in order to begin focus on LE mobility if neural functional return begins. LTG Duration 05/31/22 Two Impairment Pt struggles to perform slideboard car transfer due to upward tilt Scheduler Maintenance Goal (LTG) Pt to demonstrate car transfer SBA using slideboard. LTG Duration 05/31/22 One Impairment Pt does not have an appropriate home exercise program Short Term Goal (STG) Pt to be independent and compliant with an appropriate HEP STG Duration 04/19/22 Assessment Summary Assessment Pt showing impressive progress overall since initial evaluation. return of R patella tendon reflex and B Achilles's tendon reflex, improved abdominal control, notable improvement of sensation with dermatomes T10- T12. Continue to focus on mobility, flexibility, transfers, UE/core strengthening, and potential addition of use of standers as core control improves. Physical Therapy Plan Frequency and Duration Frequency of Treatment 2x/Week Plan of Care Start Date 06/04/22 Plan of Care End Date 09/02/22 Therapeutic Interventions Therapeutic Interventions Aquatic Therapy,Balance Training,Coordination Training ,Gait Training,Home Exercise Program,Manual Therapy, Neuromuscular Re-education, Orthotic/Prosthetic Management ,Patient/Caregiver Education, Self-Care/Home Management, Sensory Integration,Soft Tissue Mobilization, Therapeutic Activities, Therapeutic Exercises, Wheelchair Management Next Visit Focus/Plan Next Note Type Treatment Note Next Visit Plan Continue into quadruped mobility. Continue UE and core strengthening, LE PROM. POC: Transfers, mobility, LE ROM *Consider sit to stander in future when has better TA and hip abd/add control.
--- NOTE | 2022-06-04 12:53 | PT.OPPOC ---
Physical, Occupational & Speech Therapy At [facility] Current Diagnoses Paraplegia, unspecified (06/04/22) Other specified personal risk factors, not elsewhere classified (06/04/22) Other specified postprocedural states (06/04/22) Visit Care Team Role Provider Type Octavio Yates MD Family Provider Physician Primary Care Provider Specialty: Family Practice Address: [address] [place] [address], [id number] Email: [email or web address] Charleen Arias PA-C Attending Provider Advanced Hvac R Instructor Referring Provider Specialty: Medical Address: [address], [address] Email: [email or web address] Plan Of Care PT-OP-T Assessment and Plan Start: 03/08/22 17:00 Freq: Status: Active Protocol: Document 06/04/22 12:02 DCW (Rec: 06/04/22 12:53 DCW [id number]) Physical Therapy Assessment Impairments Impairments Activity Tolerance,Balance, Coordination,Functional Activities,Functional Mobility ,Gait,Integument,Sensation, Soft Tissue Mobility,Strength, Tone,Transfers Goals Three Impairment Pt does not have any motor function throughout bilateral LEs Group Home Goal (LTG) Pt to demonstrate 1/5 trace motor contraction in at least one quad in order to begin focus on LE mobility if neural functional return begins. LTG Duration 05/31/22 Two Impairment Pt struggles to perform slideboard car transfer due to upward tilt Perianesthesia Rn Goal (LTG) Pt to demonstrate car transfer SBA using slideboard. LTG Duration 05/31/22 One Impairment Pt does not have an appropriate home exercise program Short Term Goal (STG) Pt to be independent and compliant with an appropriate HEP STG Duration 04/19/22 Assessment Summary Assessment Pt showing impressive progress overall since initial evaluation. return of R patella tendon reflex and B maggy's tendon reflex, improved abdominal control, notable improvement of sensation with dermatomes T10- T12. Continue to focus on mobility, flexibility, transfers, UE/core strengthening, and potential addition of use of standers as core control improves. Physical Therapy Plan Frequency and Duration Frequency of Treatment 2x/Week Plan of Care Start Date 06/04/22 Plan of Care End Date 09/02/22 Therapeutic Interventions Therapeutic Interventions Aquatic Therapy,Balance Training,Coordination Training ,Gait Training,Home Exercise Program,Manual Therapy, Neuromuscular Re-education, Orthotic/Prosthetic Management ,Patient/Caregiver Education, Self-Care/Home Management, Sensory Integration,Soft Tissue Mobilization, Therapeutic Activities, Therapeutic Exercises, Wheelchair Management Next Visit Focus/Plan Next Note Type Treatment Note Next Visit Plan Continue into quadruped mobility. Continue UE and core strengthening, LE PROM. POC: Transfers, mobility, LE ROM *Consider sit to stander in future when has better TA and hip abd/add control. Plan of Care Dates Plan of Care Start Date 06/04/22 Plan of Care End Date 09/02/22 Electronically Signed by: Jean Ruggiero, PT 06/04/22 [id number] If you are in agreement with this Plan of Care, please return a signed and dated copy. I have reviewed this Plan of Care and certify that the skilled therapy services above are required to meet the patient?s needs. Physician Signature Date Printed Name and Credentials Clinical Instructor Signature Printed Name and Credentials
--- NOTE | 2022-06-07 13:00 | PT.OTN ---
Current Diagnoses Paraplegia, unspecified (06/07/22) Other specified personal risk factors, not elsewhere classified (06/07/22) Other specified postprocedural states (06/07/22) Physical Therapy Treatment Note PT-OP-A Visit Information Start: 03/08/22 17:00 Freq: Status: Active Protocol: Document 06/07/22 12:20 SP (Rec: 06/07/22 13:46 SP [id number]) Out-Patient Physical Therapy Visit Information Visit Information Visit Type Treatment Note Visit Note 1st tx after PN Visit Start Time 12:20 Visit Stop Time 13:00 Total Visit Minutes 40 Visit Number 20 Number of CONTENT CREATION MANAGER Visits 1 Evaluation Information Evaluation Date 03/08/22 PT-OP-B Current Condition Start: 03/08/22 17:00 Freq: Status: Active Protocol: Document 03/08/22 11:15 DCW (Rec: 03/08/22 17:11 DCW [id number]) Current Condition History of Current Condition Onset Date 12/16/21 Current Complaints Paraplegia History of Current Condition Pt is a 71 year old male with a very unfortunate medical history. Pt was hiking [place] on 12/16/21 with a friend, finished up, drive back to his friend's home to drop him off, and noticed his left leg was collapsing. By the time pt drove home, both legs were giving out and numb. Pt was suddenly paralized from the waist down, was taken to the ED, and was flown to [facility] on 12/17/21. The following day, he underwent a laminectomy to relieve pressure from the thoracic epidural hematoma which had developed following his hike, which was pressing on his spinal cord. Following surgery , pt was in recovery for a week and was then transfered to rehab for 20 days, when he was finally discharged home in a wheelchair on 01/19/22. Pt reports his surgeon informed him that it is a possibility that he gets some return of nerve function. Has experienced some changes in his right LE, but has no motor function at this time from ~ T10 down. Minimal sensory return on right side, none on left. Pt has been anxious to get in to therapy and do everything he can to help return to function. Pt's , who attended his evaluation, notes that she has been doing a lot of PROM in his legs at night to keep everything moving. Pt can feel some stretching during PROM in his right leg. Pt has additionally already started occupational therapy, and has been practicing some seated stabilization. Pt transfers with a slide board, but notes it is difficult to do into his car, because he has to transfer upward at an incline. Treatment Goals Patient/Caregiver Goals I will do anything possible to get out of this wheelchair. My neurologist told me he has seen people recover from this , so I am not giving up hope. PT-OP-C Subjective Start: 03/08/22 17:00 Freq: Status: Active Protocol: Document 06/07/22 12:20 SP (Rec: 06/07/22 13:46 SP [id number]) OP-PT Subjective Patient Comments Patient Comments Pt reports went down to [place] for another MRI, no results back. No appreciable difference slnce last tx. Pt feels more appreciation of sensation and motor control down his trunk, bowels, abs like crunch feeling and RLE, still hoping will get more improvement in LLE. Continues to keep up his UE strengthen to allow transfers easier. PT-OP-G Mobility & Gait Start: 03/08/22 17:00 Freq: Status: Active Protocol: Document 06/04/22 12:02 DCW (Rec: 06/04/22 12:32 DCW [id number]) OP Mobility Evaluation Transfers Bed to Chair Transfers Transfers using UE Wheelchair Management Type of Wheelchair Manual w/c PT-OP-H Neuro Start: 03/08/22 17:00 Freq: Status: Active Protocol: Document 06/04/22 12:02 DCW (Rec: 06/04/22 12:32 DCW [id number]) Sensation Evaluation Gross Sensation Gross Sensation Left LE Impaired,Right LE Impaired,Trunk Impaired Sensation Description Paresthesia,Numbness,Tingling, Pins & [place],Burning Dermatome Impairments L1,L2,L3,L4,L5,S1,S2,S3,S4-5 Location Details Right Leg Light Touch Impaired Sharp/Dull Impaired Deep Pressure Impaired Hot/Cold Absent Protective Sensation Absent Proprioception (Position) Impaired Kinesthesia (Movement) Impaired Two-Point Discrimination Absent Tactile Localization Absent Left Leg Light Touch Absent Sharp/Dull Absent Deep Pressure Absent Hot/Cold Absent Protective Sensation Absent Proprioception (Position) Absent Kinesthesia (Movement) Impaired Two-Point Discrimination Absent Tactile Localization Absent Deep Tendon Reflex & Clonus Assessment Deep Tendon Reflex Right Achilles Deep Tendon Reflex 1+ Diminished Right Patellar Deep Tendon Reflex 2+ Normal Left Achilles Deep Tendon Reflex 1+ Diminished Left Patellar Deep Tendon Reflex 0 Absent Muscle Tone Tone Assessment Right Lower Extremity Flexor Tone Description Mild Hypotonicity Extensor Tone Description Mild Hypotonicity Left Lower Extremity Flexor Tone Description Mild Hypotonicity Extensor Tone Description Mild Hypotonicity PT-OP-J Posture/Palpation/Skin Start: 03/08/22 17:00 Freq: Status: Active Protocol: Document 06/04/22 12:02 DCW (Rec: 06/04/22 12:32 DCW [id number]) Posture Evaluation Comments Posture Comments Improving abdominal motor function, able to utilize core muscles in order to self- correct when begins to lose balance, not able to correct with gentle push outside of [facility] PT-OP-Q Treatments Start: 03/08/22 17:00 Freq: Status: Active Protocol: Document 06/07/22 12:20 SP (Rec: 06/07/22 13:46 SP [id number]) Cardio Equipment Recumbent Elliptical (Biodex) Duration (Minutes) 10 Resistance 4 Seat Position 9 no dycem today Other w/c<> biodex SBT with CONTENT CREATION MANAGER Mod/ Max A x1. Therapeutic Exercises Sitting Exercises Bicep curls to overhead press Sitting Exercise Name in wc Side bilateral Resistance 5# Equipment Used cued upright trunk alignment, look up Reps/Minutes x2 min Comments good slow con/eccentric control with chest lift neutral CS bk/chin tuck Other Exercises quadruped child's pose Other Exercise Name initiated, therapist Min/Mod A Equipment Used trunk over 55cm tball Reps/Minutes 20 x2 Comments cued reach UEs out front quadruped Other Exercise Name rock f/b, lat, therapist Mod A control movement, pt self heavy support BUEs Equipment Used over 55cm tball Reps/Minutes x10 reps, cued hip ext Comments good hip flexion glut and LS stretch Therapeutic Activity Therapeutic Activity squat/lateral scoot transfer Name <> black mat table Reps/Minutes 1 Comments Min- Mod A x1, self heavy BUEs . supine>prone>quadruped Name Mod/Max A x1 into quadruped, heavy pt BUE support Reps/Minutes x2 Comments upper trunk support to allow UEs to get under trunk and good UE lift into quadruped then only CGA cues for chest lift serratus press support, placed 55cm Tball under abdomen, able rocking f/b 15- 25%A for pelvis support/lower abdoment controlled mov't, cues glut fac into hip extension support control/ heavy UE support on pt self. sit<> supine Name Min A x1 RLE support to off table Reps/Minutes x1 Comments Sit>sup: Min A support for R>L LEs onto table, pt uses momentum and anterior tone for self performance. Cued try slow pacing for TA contraction laying back. sup>sit self trunk BUE support on table, uses anterior tone momentum and TA Min A for R>LLE off table. Neuro Re-Education Treatment Balance Activities seated f/b wt shifting Surface seated on blace mat table, feet flat on floor Reps/Duration 8 min Comments 1.therapist support Min-light Mod A, cued TA wt shift and ES /rhomboid back extension with tapping ES. Instructed arms across chest. 2. Lateral- Mod/Max A with therapist support lateral trunk stretch PT-OP-T Assessment and Plan Start: 03/08/22 17:00 Freq: Status: Active Protocol: Document 06/07/22 12:20 SP (Rec: 06/07/22 13:46 SP [id number]) Physical Therapy Assessment Goals Three Impairment Pt does not have any motor function throughout bilateral LEs Senior Care Goal (LTG) Pt to demonstrate 1/5 trace motor contraction in at least one quad in order to begin focus on LE mobility if neural functional return begins. LTG Duration 05/31/22 Two Impairment Pt struggles to perform slideboard car transfer due to upward tilt Senior Care Goal (LTG) Pt to demonstrate car transfer SBA using slideboard. LTG Duration 05/31/22 One Impairment Pt does not have an appropriate home exercise program Short Term Goal (STG) Pt to be independent and compliant with an appropriate HEP STG Duration 04/19/22 Assessment Summary Assessment Pt reported felt some good low back and first time felt glut stretching in quadruped child 's pose positioning. Pt good initiation of core and rhomboid assist of ES back extension during seated Physical Therapy Plan Frequency and Duration Frequency of Treatment 2x/Week Plan of Care Start Date 06/04/22 Plan of Care End Date 09/02/22 Therapeutic Interventions Therapeutic Interventions Aquatic Therapy,Balance Training,Coordination Training ,Gait Training,Home Exercise Program,Manual Therapy, Neuromuscular Re-education, Orthotic/Prosthetic Management ,Patient/Caregiver Education, Self-Care/Home Management, Sensory Integration,Soft Tissue Mobilization, Therapeutic Activities, Therapeutic Exercises, Wheelchair Management Next Visit Focus/Plan Next Note Type Treatment Note Next Visit Plan Continue into quadruped mobility. Continue UE and core strengthening, LE PROM. POC: Transfers, mobility, LE ROM *Consider sit to stander in future when has better TA and hip abd/add control.
--- NOTE | 2022-06-11 12:52 | PT.OTN ---
Current Diagnoses Paraplegia, unspecified (06/11/22) Other specified personal risk factors, not elsewhere classified (06/11/22) Other specified postprocedural states (06/11/22) Physical Therapy Treatment Note PT-OP-A Visit Information Start: 03/08/22 17:00 Freq: Status: Active Protocol: Document 06/11/22 12:00 DCW (Rec: 06/11/22 12:52 DCW [id number]) Out-Patient Physical Therapy Visit Information Visit Information Visit Type Treatment Note Visit Note 1st tx after PN Visit Start Time 12:00 Visit Stop Time 12:45 Total Visit Minutes 45 Visit Number 21 Number of WALLPAPER SCRAPER Visits 0 Evaluation Information Evaluation Date 03/08/22 PT-OP-B Current Condition Start: 03/08/22 17:00 Freq: Status: Active Protocol: Document 03/08/22 11:15 DCW (Rec: 03/08/22 17:11 DCW [id number]) Current Condition History of Current Condition Onset Date 12/16/21 Current Complaints Paraplegia History of Current Condition Pt is a 71 year old male with a very unfortunate medical history. Pt was hiking [place] on 12/16/21 with a friend, finished up, drive back to his friend's home to drop him off, and noticed his left leg was collapsing. By the time pt drove home, both legs were giving out and numb. Pt was suddenly paralized from the waist down, was taken to the ED, and was flown to [facility] on 12/17/21. The following day, he underwent a laminectomy to relieve pressure from the thoracic epidural hematoma which had developed following his hike, which was pressing on his spinal cord. Following surgery , pt was in recovery for a week and was then transfered to rehab for 20 days, when he was finally discharged home in a wheelchair on 01/19/22. Pt reports his surgeon informed him that it is a possibility that he gets some return of nerve function. Has experienced some changes in his right LE, but has no motor function at this time from ~ T10 down. Minimal sensory return on right side, none on left. Pt has been anxious to get in to therapy and do everything he can to help return to function. Pt's , who attended his evaluation, notes that she has been doing a lot of PROM in his legs at night to keep everything moving. Pt can feel some stretching during PROM in his right leg. Pt has additionally already started occupational therapy, and has been practicing some seated stabilization. Pt transfers with a slide board, but notes it is difficult to do into his car, because he has to transfer upward at an incline. Treatment Goals Patient/Caregiver Goals I will do anything possible to get out of this wheelchair. My neurologist told me he has seen people recover from this , so I am not giving up hope. PT-OP-C Subjective Start: 03/08/22 17:00 Freq: Status: Active Protocol: Document 06/11/22 12:00 DCW (Rec: 06/11/22 12:52 DCW [id number]) OP-PT Subjective Patient Comments Patient Comments Pt reports he has had a few changes in medication, trying to get a better handle on decreasing spasm. PT-OP-G Mobility & Gait Start: 03/08/22 17:00 Freq: Status: Active Protocol: Document 06/04/22 12:02 DCW (Rec: 06/04/22 12:32 DCW [id number]) OP Mobility Evaluation Transfers Bed to Chair Transfers Transfers using UE Wheelchair Management Type of Wheelchair Manual w/c PT-OP-H Neuro Start: 03/08/22 17:00 Freq: Status: Active Protocol: Document 06/04/22 12:02 DCW (Rec: 06/04/22 12:32 DCW [id number]) Sensation Evaluation Gross Sensation Gross Sensation Left LE Impaired,Right LE Impaired,Trunk Impaired Sensation Description Paresthesia,Numbness,Tingling, Pins & [place],Burning Dermatome Impairments L1,L2,L3,L4,L5,S1,S2,S3,S4-5 Location Details Right Leg Light Touch Impaired Sharp/Dull Impaired Deep Pressure Impaired Hot/Cold Absent Protective Sensation Absent Proprioception (Position) Impaired Kinesthesia (Movement) Impaired Two-Point Discrimination Absent Tactile Localization Absent Left Leg Light Touch Absent Sharp/Dull Absent Deep Pressure Absent Hot/Cold Absent Protective Sensation Absent Proprioception (Position) Absent Kinesthesia (Movement) Impaired Two-Point Discrimination Absent Tactile Localization Absent Deep Tendon Reflex & Clonus Assessment Deep Tendon Reflex Right Achilles Deep Tendon Reflex 1+ Diminished Right Patellar Deep Tendon Reflex 2+ Normal Left Achilles Deep Tendon Reflex 1+ Diminished Left Patellar Deep Tendon Reflex 0 Absent Muscle Tone Tone Assessment Right Lower Extremity Flexor Tone Description Mild Hypotonicity Extensor Tone Description Mild Hypotonicity Left Lower Extremity Flexor Tone Description Mild Hypotonicity Extensor Tone Description Mild Hypotonicity PT-OP-J Posture/Palpation/Skin Start: 03/08/22 17:00 Freq: Status: Active Protocol: Document 06/04/22 12:02 DCW (Rec: 06/04/22 12:32 DCW [id number]) Posture Evaluation Comments Posture Comments Improving abdominal motor function, able to utilize core muscles in order to self- correct when begins to lose balance, not able to correct with gentle push outside of KIARA PT-OP-Q Treatments Start: 03/08/22 17:00 Freq: Status: Active Protocol: Document 06/11/22 12:00 DCW (Rec: 06/11/22 12:52 DCW [id number]) Cardio Equipment Recumbent Elliptical (Biodex) Duration (Minutes) 10 Resistance 4 Seat Position 10 w/ dycem on seat (BUEs mainly, LLE can move peddle) Other w/c<->Biodex transfer using UEs, gait belt, Min/ Mod Ax1 Therapeutic Exercises Supine Exercises Hip Adduction Supine Exercise Name Adduction of R hip Adductor Stretch Supine Exercise Name Manual butterfly stretch Hip Flexor Stretch Supine Exercise Name Hip Flexor Stretch (LE extension) Side bilateral Resistance manual Comments putting hip and knee into increased extension with over press Hamstring Stretch Supine Exercise Name HS stretch Side bilateral Equipment Used manual Reps/Minutes 2 min hold x3 Knee to Chest Supine Exercise Name Single KtC Side bilateral Equipment Used manual Comments good feedback response Sidelying Exercises Open book Sidelying Exercise Name Open book Comments Limited amount of trunk rotation Other Exercises Approximation Other Exercise Name Hip approximation in quad, therapist overpressure through hips quadruped child's pose Other Exercise Name initiated, therapist Min/Mod A Equipment Used trunk over 55cm tball Reps/Minutes 20 x2 Comments cued reach UEs out front quadruped Other Exercise Name rock f/b, la, therapist Mod A control movement, pt self heavy support BUEs Reps/Minutes x5 reps Comments good hip flexion stretching, good feedback response from pt Therapeutic Activity Therapeutic Activity supine>prone>quadruped Name Mod/Max A x1 into quadruped, heavy pt BUE support Reps/Minutes x2 Comments upper trunk support to allow UEs to get under trunk and good UE lift into quadruped then only CGA cues for chest lift serratus press support, placed 55cm Tball under abdomen, able rocking f/b 15- 25%A for pelvis support/lower abdoment controlled mov't, cues glut fac into hip extension support control/ heavy UE support on pt self. PT-OP-T Assessment and Plan Start: 03/08/22 17:00 Freq: Status: Active Protocol: Document 06/11/22 12:00 DCW (Rec: 06/11/22 12:52 DCW [id number]) Physical Therapy Assessment Impairments Impairments Activity Tolerance,Balance, Coordination,Functional Activities,Functional Mobility ,Gait,Integument,Sensation, Soft Tissue Mobility,Strength, Tone,Transfers Goals Three Impairment Pt does not have any motor function throughout bilateral LEs Sailing Instructor Goal (LTG) Pt to demonstrate 1/5 trace motor contraction in at least one quad in order to begin focus on LE mobility if neural functional return begins. LTG Duration 05/31/22 Two Impairment Pt struggles to perform slideboard car transfer due to upward tilt Sailing Instructor Goal (LTG) Pt to demonstrate car transfer SBA using slideboard. LTG Duration 05/31/22 One Impairment Pt does not have an appropriate home exercise program Short Term Goal (STG) Pt to be independent and compliant with an appropriate HEP STG Duration 04/19/22 Assessment Summary Assessment Pt tolerated quadruped well, enjoys addition of open book for spine rotation. Expressed desire to start to work on floor transfers soon. Physical Therapy Plan Frequency and Duration Frequency of Treatment 2x/Week Plan of Care Start Date 06/04/22 Plan of Care End Date 09/02/22 Therapeutic Interventions Therapeutic Interventions Aquatic Therapy,Balance Training,Coordination Training ,Gait Training,Home Exercise Program,Manual Therapy, Neuromuscular Re-education, Orthotic/Prosthetic Management ,Patient/Caregiver Education, Self-Care/Home Management, Sensory Integration,Soft Tissue Mobilization, Therapeutic Activities, Therapeutic Exercises, Wheelchair Management Next Visit Focus/Plan Next Note Type Treatment Note Next Visit Plan Continue into quadruped mobility, work toward floor transfers Continue UE and core strengthening, LE PROM. POC: Transfers, mobility, LE ROM *Consider sit to stander in future when has better TA and hip abd/add control.
--- NOTE | 2022-06-14 12:48 | PT.OTN ---
Current Diagnoses Paraplegia, unspecified (06/14/22) Other specified personal risk factors, not elsewhere classified (06/14/22) Other specified postprocedural states (06/14/22) Physical Therapy Treatment Note PT-OP-A Visit Information Start: 03/08/22 17:00 Freq: Status: Active Protocol: Document 06/14/22 12:00 DCW (Rec: 06/14/22 12:48 DCW [id number]) Out-Patient Physical Therapy Visit Information Visit Information Visit Type Treatment Note Visit Start Time 12:00 Visit Stop Time 12:45 Total Visit Minutes 45 Visit Number 22 Number of PRECISION FARMING COORDINATOR Visits 0 Evaluation Information Evaluation Date 03/08/22 PT-OP-B Current Condition Start: 03/08/22 17:00 Freq: Status: Active Protocol: Document 03/08/22 11:15 DCW (Rec: 03/08/22 17:11 DCW [id number]) Current Condition History of Current Condition Onset Date 12/16/21 Current Complaints Paraplegia History of Current Condition Pt is a 71 year old male with a very unfortunate medical history. Pt was hiking [place] on 12/16/21 with a friend, finished up, drive back to his friend's home to drop him off, and noticed his left leg was collapsing. By the time pt drove home, both legs were giving out and numb. Pt was suddenly paralized from the waist down, was taken to the ED, and was flown to [facility] on 12/17/21. The following day, he underwent a laminectomy to relieve pressure from the thoracic epidural hematoma which had developed following his hike, which was pressing on his spinal cord. Following surgery , pt was in recovery for a week and was then transfered to rehab for 20 days, when he was finally discharged home in a wheelchair on 01/19/22. Pt reports his surgeon informed him that it is a possibility that he gets some return of nerve function. Has experienced some changes in his right LE, but has no motor function at this time from ~ T10 down. Minimal sensory return on right side, none on left. Pt has been anxious to get in to therapy and do everything he can to help return to function. Pt's , who attended his evaluation, notes that she has been doing a lot of PROM in his legs at night to keep everything moving. Pt can feel some stretching during PROM in his right leg. Pt has additionally already started occupational therapy, and has been practicing some seated stabilization. Pt transfers with a slide board, but notes it is difficult to do into his car, because he has to transfer upward at an incline. Treatment Goals Patient/Caregiver Goals I will do anything possible to get out of this wheelchair. My neurologist told me he has seen people recover from this , so I am not giving up hope. PT-OP-C Subjective Start: 03/08/22 17:00 Freq: Status: Active Protocol: Document 06/14/22 12:00 DCW (Rec: 06/14/22 12:48 DCW [id number]) OP-PT Subjective Patient Comments Patient Comments Pt reports he is feeling good today. PT-OP-G Mobility & Gait Start: 03/08/22 17:00 Freq: Status: Active Protocol: Document 06/04/22 12:02 DCW (Rec: 06/04/22 12:32 DCW [id number]) OP Mobility Evaluation Transfers Bed to Chair Transfers Transfers using UE Wheelchair Management Type of Wheelchair Manual w/c PT-OP-H Neuro Start: 03/08/22 17:00 Freq: Status: Active Protocol: Document 06/04/22 12:02 DCW (Rec: 06/04/22 12:32 DCW [id number]) Sensation Evaluation Gross Sensation Gross Sensation Left LE Impaired,Right LE Impaired,Trunk Impaired Sensation Description Paresthesia,Numbness,Tingling, Pins & [place],Burning Dermatome Impairments L1,L2,L3,L4,L5,S1,S2,S3,S4-5 Location Details Right Leg Light Touch Impaired Sharp/Dull Impaired Deep Pressure Impaired Hot/Cold Absent Protective Sensation Absent Proprioception (Position) Impaired Kinesthesia (Movement) Impaired Two-Point Discrimination Absent Tactile Localization Absent Left Leg Light Touch Absent Sharp/Dull Absent Deep Pressure Absent Hot/Cold Absent Protective Sensation Absent Proprioception (Position) Absent Kinesthesia (Movement) Impaired Two-Point Discrimination Absent Tactile Localization Absent Deep Tendon Reflex & Clonus Assessment Deep Tendon Reflex Right Achilles Deep Tendon Reflex 1+ Diminished Right Patellar Deep Tendon Reflex 2+ Normal Left Achilles Deep Tendon Reflex 1+ Diminished Left Patellar Deep Tendon Reflex 0 Absent Muscle Tone Tone Assessment Right Lower Extremity Flexor Tone Description Mild Hypotonicity Extensor Tone Description Mild Hypotonicity Left Lower Extremity Flexor Tone Description Mild Hypotonicity Extensor Tone Description Mild Hypotonicity PT-OP-J Posture/Palpation/Skin Start: 03/08/22 17:00 Freq: Status: Active Protocol: Document 06/04/22 12:02 DCW (Rec: 06/04/22 12:32 DCW [id number]) Posture Evaluation Comments Posture Comments Improving abdominal motor function, able to utilize core muscles in order to self- correct when begins to lose balance, not able to correct with gentle push outside of KIARA PT-OP-Q Treatments Start: 03/08/22 17:00 Freq: Status: Active Protocol: Document 06/14/22 12:00 DCW (Rec: 06/14/22 12:48 DCW [id number]) Cardio Equipment Recumbent Elliptical (Biodex) Duration (Minutes) 10 Resistance 4 Seat Position 10 w/ dycem on seat (BUEs mainly, LLE can move peddle) Other w/c<->Biodex transfer using UEs, gait belt, Min/ Mod Ax1 Therapeutic Activity Therapeutic Activity Floor Transfers Comments Trial of w/c<->floor transfers PT-OP-T Assessment and Plan Start: 03/08/22 17:00 Freq: Status: Active Protocol: Document 06/14/22 12:00 DCW (Rec: 06/14/22 12:48 DCW [id number]) Physical Therapy Assessment Impairments Impairments Activity Tolerance,Balance, Coordination,Functional Activities,Functional Mobility ,Gait,Integument,Sensation, Soft Tissue Mobility,Strength, Tone,Transfers Goals Three Impairment Pt does not have any motor function throughout bilateral LEs Cardiac Care Unit Nurse Goal (LTG) Pt to demonstrate 1/5 trace motor contraction in at least one quad in order to begin focus on LE mobility if neural functional return begins. LTG Duration 05/31/22 Two Impairment Pt struggles to perform slideboard car transfer due to upward tilt Prison Goal (LTG) Pt to demonstrate car transfer SBA using slideboard. LTG Duration 05/31/22 One Impairment Pt does not have an appropriate home exercise program Short Term Goal (STG) Pt to be independent and compliant with an appropriate HEP STG Duration 04/19/22 Assessment Summary Assessment Pt struggled with floor transfers, noted weakness in UEs, inability to support himself with arms, couldn't perform press-up even with therapist Max Ax1. Required use of sitting on steps 8->16 ->w/c with Max A from therapist. Physical Therapy Plan Frequency and Duration Frequency of Treatment 2x/Week Plan of Care Start Date 06/04/22 Plan of Care End Date 09/02/22 Therapeutic Interventions Therapeutic Interventions Aquatic Therapy,Balance Training,Coordination Training ,Gait Training,Home Exercise Program,Manual Therapy, Neuromuscular Re-education, Orthotic/Prosthetic Management ,Patient/Caregiver Education, Self-Care/Home Management, Sensory Integration,Soft Tissue Mobilization, Therapeutic Activities, Therapeutic Exercises, Wheelchair Management Next Visit Focus/Plan Next Note Type Treatment Note Next Visit Plan Continue into quadruped mobility, work toward floor transfers Continue UE and core strengthening, LE PROM. POC: Transfers, mobility, LE ROM *Consider sit to stander in future when has better TA and hip abd/add control.
--- NOTE | 2022-06-17 11:59 | PT.OTN ---
Current Diagnoses Paraplegia, unspecified (06/17/22) Other specified personal risk factors, not elsewhere classified (06/17/22) Other specified postprocedural states (06/17/22) Physical Therapy Treatment Note PT-OP-A Visit Information Start: 03/08/22 17:00 Freq: Status: Active Protocol: Document 06/17/22 11:15 DCW (Rec: 06/17/22 11:59 DCW [id number]) Out-Patient Physical Therapy Visit Information Visit Information Visit Type Treatment Note Visit Start Time 11:15 Visit Stop Time 12:00 Total Visit Minutes 45 Visit Number 23 Number of ENVIRONMENTAL TEST TECHNICIAN Visits 0 Evaluation Information Evaluation Date 03/08/22 PT-OP-B Current Condition Start: 03/08/22 17:00 Freq: Status: Active Protocol: Document 03/08/22 11:15 DCW (Rec: 03/08/22 17:11 DCW [id number]) Current Condition History of Current Condition Onset Date 12/16/21 Current Complaints Paraplegia History of Current Condition Pt is a 71 year old male with a very unfortunate medical history. Pt was hiking [employer] on 12/16/21 with a friend, finished up, drive back to his friend's home to drop him off, and noticed his left leg was collapsing. By the time pt drove home, both legs were giving out and numb. Pt was suddenly paralized from the waist down, was taken to the ED, and was flown to [facility] on 12/17/21. The following day, he underwent a laminectomy to relieve pressure from the thoracic epidural hematoma which had developed following his hike, which was pressing on his spinal cord. Following surgery , pt was in recovery for a week and was then transfered to rehab for 20 days, when he was finally discharged home in a wheelchair on 01/19/22. Pt reports his surgeon informed him that it is a possibility that he gets some return of nerve function. Has experienced some changes in his right LE, but has no motor function at this time from ~ T10 down. Minimal sensory return on right side, none on left. Pt has been anxious to get in to therapy and do everything he can to help return to function. Pt's , who attended his evaluation, notes that she has been doing a lot of PROM in his legs at night to keep everything moving. Pt can feel some stretching during PROM in his right leg. Pt has additionally already started occupational therapy, and has been practicing some seated stabilization. Pt transfers with a slide board, but notes it is difficult to do into his car, because he has to transfer upward at an incline. Treatment Goals Patient/Caregiver Goals I will do anything possible to get out of this wheelchair. My neurologist told me he has seen people recover from this , so I am not giving up hope. PT-OP-C Subjective Start: 03/08/22 17:00 Freq: Status: Active Protocol: Document 06/17/22 11:15 DCW (Rec: 06/17/22 11:59 DCW [id number]) OP-PT Subjective Patient Comments Patient Comments I realized after last week, trying those floor transfers, that my arms really need to get stronger. I've noticed that I don't really wheel myself around all that much. I 've decided that I need to get out and roll around more, either [place] or out on a trail. PT-OP-G Mobility & Gait Start: 03/08/22 17:00 Freq: Status: Active Protocol: Document 06/04/22 12:02 DCW (Rec: 06/04/22 12:32 DCW [id number]) OP Mobility Evaluation Transfers Bed to Chair Transfers Transfers using UE Wheelchair Management Type of Wheelchair Manual w/c PT-OP-H Neuro Start: 03/08/22 17:00 Freq: Status: Active Protocol: Document 06/04/22 12:02 DCW (Rec: 06/04/22 12:32 DCW [id number]) Sensation Evaluation Gross Sensation Gross Sensation Left LE Impaired,Right LE Impaired,Trunk Impaired Sensation Description Paresthesia,Numbness,Tingling, Pins & [place],Burning Dermatome Impairments L1,L2,L3,L4,L5,S1,S2,S3,S4-5 Location Details Right Leg Light Touch Impaired Sharp/Dull Impaired Deep Pressure Impaired Hot/Cold Absent Protective Sensation Absent Proprioception (Position) Impaired Kinesthesia (Movement) Impaired Two-Point Discrimination Absent Tactile Localization Absent Left Leg Light Touch Absent Sharp/Dull Absent Deep Pressure Absent Hot/Cold Absent Protective Sensation Absent Proprioception (Position) Absent Kinesthesia (Movement) Impaired Two-Point Discrimination Absent Tactile Localization Absent Deep Tendon Reflex & Clonus Assessment Deep Tendon Reflex Right Achilles Deep Tendon Reflex 1+ Diminished Right Patellar Deep Tendon Reflex 2+ Normal Left Achilles Deep Tendon Reflex 1+ Diminished Left Patellar Deep Tendon Reflex 0 Absent Muscle Tone Tone Assessment Right Lower Extremity Flexor Tone Description Mild Hypotonicity Extensor Tone Description Mild Hypotonicity Left Lower Extremity Flexor Tone Description Mild Hypotonicity Extensor Tone Description Mild Hypotonicity PT-OP-J Posture/Palpation/Skin Start: 03/08/22 17:00 Freq: Status: Active Protocol: Document 06/04/22 12:02 DCW (Rec: 06/04/22 12:32 DCW [id number]) Posture Evaluation Comments Posture Comments Improving abdominal motor function, able to utilize core muscles in order to self- correct when begins to lose balance, not able to correct with gentle push outside of KIARA PT-OP-Q Treatments Start: 03/08/22 17:00 Freq: Status: Active Protocol: Document 06/17/22 11:15 DCW (Rec: 06/17/22 11:59 DCW [id number]) Cardio Equipment Recumbent Elliptical (Biodex) Duration (Minutes) 10 Resistance 4 Seat Position 10 w/ dycem on seat (BUEs mainly, LLE can move peddle) Other w/c<->Biodex transfer using UEs, gait belt, Min/ Mod Ax1 Therapeutic Exercises Supine Exercises Hip Adduction Supine Exercise Name Adduction of R hip Hip Flexor Stretch Supine Exercise Name Hip Flexor Stretch (LE extension) Side bilateral Resistance manual Comments putting hip and knee into increased extension with over press Hamstring Stretch Supine Exercise Name HS stretch Side bilateral Equipment Used manual Reps/Minutes 2 min hold x3 Knee to Chest Supine Exercise Name Single KtC Side bilateral Equipment Used manual Comments good feedback response Sitting Exercises Triceps Extension Sitting Exercise Name Seated Triceps extension Side bilateral Resistance Lv 3 Comments T-band anchored at w/c handle Other Exercises Push-ups Other Exercise Name Push-ups in quadruped Approximation Other Exercise Name Hip approximation in quad, therapist overpressure through hips quadruped Other Exercise Name rock f/b, la, therapist Mod A control movement, pt self heavy support BUEs Reps/Minutes x5 reps Comments good hip flexion stretching, good feedback response from pt Therapeutic Activity Therapeutic Activity supine>prone>quadruped Name Mod/Max A x1 into quadruped, heavy pt BUE support Reps/Minutes x2 Comments upper trunk support to allow UEs to get under trunk and good UE lift into quadruped then only CGA cues for chest lift serratus press support, placed 55cm Tball under abdomen, able rocking f/b 15- 25%A for pelvis support/lower abdoment controlled mov't, cues glut fac into hip extension support control/ heavy UE support on pt self. PT-OP-T Assessment and Plan Start: 03/08/22 17:00 Freq: Status: Active Protocol: Document 06/17/22 11:15 DCW (Rec: 06/17/22 11:59 DCW [id number]) Physical Therapy Assessment Impairments Impairments Activity Tolerance,Balance, Coordination,Functional Activities,Functional Mobility ,Gait,Integument,Sensation, Soft Tissue Mobility,Strength, Tone,Transfers Goals Three Impairment Pt does not have any motor function throughout bilateral LEs Fci Goal (LTG) Pt to demonstrate 1/5 trace motor contraction in at least one quad in order to begin focus on LE mobility if neural functional return begins. LTG Duration 05/31/22 Two Impairment Pt struggles to perform slideboard car transfer due to upward tilt Pluck Trimmer Goal (LTG) Pt to demonstrate car transfer SBA using slideboard. LTG Duration 05/31/22 One Impairment Pt does not have an appropriate home exercise program Short Term Goal (STG) Pt to be independent and compliant with an appropriate HEP STG Duration 04/19/22 Assessment Summary Assessment Focused more today on triceps strengthening, added triceps extensions to HEP, performed quadruped push-ups, pt fatigued very quickly. Pt improving with supine-> quadruped transfers, Mod Ax1 today. Physical Therapy Plan Frequency and Duration Frequency of Treatment 2x/Week Plan of Care Start Date 06/04/22 Plan of Care End Date 09/02/22 Therapeutic Interventions Therapeutic Interventions Aquatic Therapy,Balance Training,Coordination Training ,Gait Training,Home Exercise Program,Manual Therapy, Neuromuscular Re-education, Orthotic/Prosthetic Management ,Patient/Caregiver Education, Self-Care/Home Management, Sensory Integration,Soft Tissue Mobilization, Therapeutic Activities, Therapeutic Exercises, Wheelchair Management Next Visit Focus/Plan Next Note Type Treatment Note Next Visit Plan Continue into quadruped mobility, work toward floor transfers Continue UE and core strengthening, LE PROM. POC: Transfers, mobility, LE ROM *Consider sit to stander in future when has better TA and hip abd/add control.
--- NOTE | 2022-06-20 12:44 | PT.OTN ---
Current Diagnoses Paraplegia, unspecified (06/20/22) Other specified personal risk factors, not elsewhere classified (06/20/22) Other specified postprocedural states (06/20/22) Physical Therapy Treatment Note PT-OP-A Visit Information Start: 03/08/22 17:00 Freq: Status: Active Protocol: Document 06/20/22 12:00 DCW (Rec: 06/20/22 12:44 DCW [id number]) Out-Patient Physical Therapy Visit Information Visit Information Visit Type Treatment Note Visit Start Time 12:00 Visit Stop Time 12:45 Total Visit Minutes 45 Visit Number 24 Number of GLASS CUTTER Visits 0 Evaluation Information Evaluation Date 03/08/22 PT-OP-B Current Condition Start: 03/08/22 17:00 Freq: Status: Active Protocol: Document 03/08/22 11:15 DCW (Rec: 03/08/22 17:11 DCW [id number]) Current Condition History of Current Condition Onset Date 12/16/21 Current Complaints Paraplegia History of Current Condition Pt is a 71 year old male with a very unfortunate medical history. Pt was hiking [employer] on 12/16/21 with a friend, finished up, drive back to his friend's home to drop him off, and noticed his left leg was collapsing. By the time pt drove home, both legs were giving out and numb. Pt was suddenly paralized from the waist down, was taken to the ED, and was flown to [facility] on 12/17/21. The following day, he underwent a laminectomy to relieve pressure from the thoracic epidural hematoma which had developed following his hike, which was pressing on his spinal cord. Following surgery , pt was in recovery for a week and was then transfered to rehab for 20 days, when he was finally discharged home in a wheelchair on 01/19/22. Pt reports his surgeon informed him that it is a possibility that he gets some return of nerve function. Has experienced some changes in his right LE, but has no motor function at this time from ~ T10 down. Minimal sensory return on right side, none on left. Pt has been anxious to get in to therapy and do everything he can to help return to function. Pt's , who attended his evaluation, notes that she has been doing a lot of PROM in his legs at night to keep everything moving. Pt can feel some stretching during PROM in his right leg. Pt has additionally already started occupational therapy, and has been practicing some seated stabilization. Pt transfers with a slide board, but notes it is difficult to do into his car, because he has to transfer upward at an incline. Treatment Goals Patient/Caregiver Goals I will do anything possible to get out of this wheelchair. My neurologist told me he has seen people recover from this , so I am not giving up hope. PT-OP-C Subjective Start: 03/08/22 17:00 Freq: Status: Active Protocol: Document 06/20/22 12:00 DCW (Rec: 06/20/22 12:44 DCW [id number]) OP-PT Subjective Patient Comments Patient Comments Pt reports he is feeling pretty good today. PT-OP-G Mobility & Gait Start: 03/08/22 17:00 Freq: Status: Active Protocol: Document 06/04/22 12:02 DCW (Rec: 06/04/22 12:32 DCW [id number]) OP Mobility Evaluation Transfers Bed to Chair Transfers Transfers using UE Wheelchair Management Type of Wheelchair Manual w/c PT-OP-H Neuro Start: 03/08/22 17:00 Freq: Status: Active Protocol: Document 06/04/22 12:02 DCW (Rec: 06/04/22 12:32 DCW [id number]) Sensation Evaluation Gross Sensation Gross Sensation Left LE Impaired,Right LE Impaired,Trunk Impaired Sensation Description Paresthesia,Numbness,Tingling, Pins & [place],Burning Dermatome Impairments L1,L2,L3,L4,L5,S1,S2,S3,S4-5 Location Details Right Leg Light Touch Impaired Sharp/Dull Impaired Deep Pressure Impaired Hot/Cold Absent Protective Sensation Absent Proprioception (Position) Impaired Kinesthesia (Movement) Impaired Two-Point Discrimination Absent Tactile Localization Absent Left Leg Light Touch Absent Sharp/Dull Absent Deep Pressure Absent Hot/Cold Absent Protective Sensation Absent Proprioception (Position) Absent Kinesthesia (Movement) Impaired Two-Point Discrimination Absent Tactile Localization Absent Deep Tendon Reflex & Clonus Assessment Deep Tendon Reflex Right Achilles Deep Tendon Reflex 1+ Diminished Right Patellar Deep Tendon Reflex 2+ Normal Left Achilles Deep Tendon Reflex 1+ Diminished Left Patellar Deep Tendon Reflex 0 Absent Muscle Tone Tone Assessment Right Lower Extremity Flexor Tone Description Mild Hypotonicity Extensor Tone Description Mild Hypotonicity Left Lower Extremity Flexor Tone Description Mild Hypotonicity Extensor Tone Description Mild Hypotonicity PT-OP-J Posture/Palpation/Skin Start: 03/08/22 17:00 Freq: Status: Active Protocol: Document 06/04/22 12:02 DCW (Rec: 06/04/22 12:32 DCW [id number]) Posture Evaluation Comments Posture Comments Improving abdominal motor function, able to utilize core muscles in order to self- correct when begins to lose balance, not able to correct with gentle push outside of KIARA PT-OP-Q Treatments Start: 03/08/22 17:00 Freq: Status: Active Protocol: Document 06/20/22 12:00 DCW (Rec: 06/20/22 12:44 DCW [id number]) Cardio Equipment Recumbent Elliptical (Biodex) Duration (Minutes) 10 Resistance 4 Seat Position 10 w/ dycem on seat (BUEs mainly, LLE can move peddle) Other w/c<->Biodex transfer using UEs, gait belt, Mod Ax1 Therapeutic Exercises Supine Exercises LTR Side bilateral Resistance PROM tolerant range Reps/Minutes x5 B, 5 sec hold. Hip Flexor Stretch Supine Exercise Name Hip Flexor Stretch (LE extension) Side bilateral Resistance manual Comments putting hip and knee into increased extension with over press Hamstring Stretch Supine Exercise Name HS stretch Side bilateral Equipment Used manual Knee to Chest Supine Exercise Name Single KtC Side bilateral Equipment Used manual Sitting Exercises Abduction Sitting Exercise Name Shoulder Abduction Side bilateral Resistance Lv 4 Flexion Sitting Exercise Name Shoulder Flexion Side bilateral Resistance Lv 4 PT-OP-T Assessment and Plan Start: 03/08/22 17:00 Freq: Status: Active Protocol: Document 06/20/22 12:00 DCW (Rec: 06/20/22 12:44 DCW [id number]) Physical Therapy Assessment Impairments Impairments Activity Tolerance,Balance, Coordination,Functional Activities,Functional Mobility ,Gait,Integument,Sensation, Soft Tissue Mobility,Strength, Tone,Transfers Goals Three Impairment Pt does not have any motor function throughout bilateral LEs Alf Goal (LTG) Pt to demonstrate 1/5 trace motor contraction in at least one quad in order to begin focus on LE mobility if neural functional return begins. LTG Duration 05/31/22 Two Impairment Pt struggles to perform slideboard car transfer due to upward tilt Alf Goal (LTG) Pt to demonstrate car transfer SBA using slideboard. LTG Duration 05/31/22 One Impairment Pt does not have an appropriate home exercise program Short Term Goal (STG) Pt to be independent and compliant with an appropriate HEP STG Duration 04/19/22 Assessment Summary Assessment Pt very stiff today, attempts to stretch out hip flexors just caused his trunk to lift up off the mat table. Required therapist to anchor pt down at shoulders in an effort to stretch hips into more extension. Physical Therapy Plan Frequency and Duration Frequency of Treatment 2x/Week Plan of Care Start Date 06/04/22 Plan of Care End Date 09/02/22 Therapeutic Interventions Therapeutic Interventions Aquatic Therapy,Balance Training,Coordination Training ,Gait Training,Home Exercise Program,Manual Therapy, Neuromuscular Re-education, Orthotic/Prosthetic Management ,Patient/Caregiver Education, Self-Care/Home Management, Sensory Integration,Soft Tissue Mobilization, Therapeutic Activities, Therapeutic Exercises, Wheelchair Management Next Visit Focus/Plan Next Note Type Treatment Note Next Visit Plan Continue into quadruped mobility, work toward floor transfers Continue UE and core strengthening, LE PROM. POC: Transfers, mobility, LE ROM *Consider sit to stander in future when has better TA and hip abd/add control.
--- NOTE | 2022-06-25 13:00 | PT.OTN ---
Current Diagnoses Paraplegia, unspecified (06/25/22) Other specified personal risk factors, not elsewhere classified (06/25/22) Other specified postprocedural states (06/25/22) Physical Therapy Treatment Note PT-OP-A Visit Information Start: 03/08/22 17:00 Freq: Status: Active Protocol: Document 06/25/22 12:14 SP (Rec: 06/25/22 13:04 SP [id number]) Out-Patient Physical Therapy Visit Information Visit Information Visit Type Treatment Note Visit Start Time 12:14 Visit Stop Time 13:00 Total Visit Minutes 46 Visit Number 25 Number of FEED RESEARCH AIDE Visits 1 Evaluation Information Evaluation Date 03/08/22 PT-OP-B Current Condition Start: 03/08/22 17:00 Freq: Status: Active Protocol: Document 03/08/22 11:15 DCW (Rec: 03/08/22 17:11 DCW [id number]) Current Condition History of Current Condition Onset Date 12/16/21 Current Complaints Paraplegia History of Current Condition Pt is a 71 year old male with a very unfortunate medical history. Pt was hiking [place] on 12/16/21 with a friend, finished up, drive back to his friend's home to drop him off, and noticed his left leg was collapsing. By the time pt drove home, both legs were giving out and numb. Pt was suddenly paralized from the waist down, was taken to the ED, and was flown to [facility] on 12/17/21. The following day, he underwent a laminectomy to relieve pressure from the thoracic epidural hematoma which had developed following his hike, which was pressing on his spinal cord. Following surgery , pt was in recovery for a week and was then transfered to rehab for 20 days, when he was finally discharged home in a wheelchair on 01/19/22. Pt reports his surgeon informed him that it is a possibility that he gets some return of nerve function. Has experienced some changes in his right LE, but has no motor function at this time from ~ T10 down. Minimal sensory return on right side, none on left. Pt has been anxious to get in to therapy and do everything he can to help return to function. Pt's , who attended his evaluation, notes that she has been doing a lot of PROM in his legs at night to keep everything moving. Pt can feel some stretching during PROM in his right leg. Pt has additionally already started occupational therapy, and has been practicing some seated stabilization. Pt transfers with a slide board, but notes it is difficult to do into his car, because he has to transfer upward at an incline. Treatment Goals Patient/Caregiver Goals I will do anything possible to get out of this wheelchair. My neurologist told me he has seen people recover from this , so I am not giving up hope. PT-OP-C Subjective Start: 03/08/22 17:00 Freq: Status: Active Protocol: Document 06/25/22 12:14 SP (Rec: 06/25/22 13:04 SP [id number]) OP-PT Subjective Patient Comments Patient Comments Pt reports stiff today. PT-OP-G Mobility & Gait Start: 03/08/22 17:00 Freq: Status: Active Protocol: Document 06/04/22 12:02 DCW (Rec: 06/04/22 12:32 DCW [id number]) OP Mobility Evaluation Transfers Bed to Chair Transfers Transfers using UE Wheelchair Management Type of Wheelchair Manual w/c PT-OP-H Neuro Start: 03/08/22 17:00 Freq: Status: Active Protocol: Document 06/04/22 12:02 DCW (Rec: 06/04/22 12:32 DCW [id number]) Sensation Evaluation Gross Sensation Gross Sensation Left LE Impaired,Right LE Impaired,Trunk Impaired Sensation Description Paresthesia,Numbness,Tingling, Pins & [place],Burning Dermatome Impairments L1,L2,L3,L4,L5,S1,S2,S3,S4-5 Location Details Right Leg Light Touch Impaired Sharp/Dull Impaired Deep Pressure Impaired Hot/Cold Absent Protective Sensation Absent Proprioception (Position) Impaired Kinesthesia (Movement) Impaired Two-Point Discrimination Absent Tactile Localization Absent Left Leg Light Touch Absent Sharp/Dull Absent Deep Pressure Absent Hot/Cold Absent Protective Sensation Absent Proprioception (Position) Absent Kinesthesia (Movement) Impaired Two-Point Discrimination Absent Tactile Localization Absent Deep Tendon Reflex & Clonus Assessment Deep Tendon Reflex Right Achilles Deep Tendon Reflex 1+ Diminished Right Patellar Deep Tendon Reflex 2+ Normal Left Achilles Deep Tendon Reflex 1+ Diminished Left Patellar Deep Tendon Reflex 0 Absent Muscle Tone Tone Assessment Right Lower Extremity Flexor Tone Description Mild Hypotonicity Extensor Tone Description Mild Hypotonicity Left Lower Extremity Flexor Tone Description Mild Hypotonicity Extensor Tone Description Mild Hypotonicity PT-OP-J Posture/Palpation/Skin Start: 03/08/22 17:00 Freq: Status: Active Protocol: Document 06/04/22 12:02 DCW (Rec: 06/04/22 12:32 DCW [id number]) Posture Evaluation Comments Posture Comments Improving abdominal motor function, able to utilize core muscles in order to self- correct when begins to lose balance, not able to correct with gentle push outside of KIARA PT-OP-Q Treatments Start: 03/08/22 17:00 Freq: Status: Active Protocol: Document 06/25/22 12:14 SP (Rec: 06/25/22 13:04 SP [id number]) Cardio Equipment Recumbent Elliptical (Biodex) Duration (Minutes) 10 Resistance 4 Seat Position 10> 8 last min w/ dycem on seat (BUEs mainly, LLE can move peddle) Other w/c<->Biodex transfer using UEs, gait belt/slide board Mod A x1 Therapeutic Exercises Supine Exercises Hip Flexor Stretch Supine Exercise Name Hip Flexor Stretch (LE extension) Side bilateral Resistance manual Comments putting hip and knee into increased extension with over press Prone Exercises prone over 4 pillows Prone Exercise Name trunk extension, hip flexor stretch Equipment Used over 4 pillows Reps/Minutes 1 min Sitting Exercises HABD Sitting Exercise Name seated EOtable Resistance CG- 15%A Equipment Used Tb #1 Reps/Minutes 2x10 Comments cued slow pacing UE HABD to allow trunk stability Flexion Sitting Exercise Name Shoulder Flexion Side bilateral Resistance Lv 1 Equipment Used seated EOtable Reps/Minutes 2x10 Comments 1 UE anchor TB and WB on table for self stability Other Exercises quadruped child's pose Other Exercise Name therapist Min/Mod A Equipment Used trunk over 55cm tball (future 45cm tball) Reps/Minutes 20 x2 Comments cued reach UEs out front quadruped Other Exercise Name rock f/b, la, therapist Mod A control movement, pt self heavy support BUEs Reps/Minutes x5 reps Comments good glut and ES stretching Therapeutic Activity Therapeutic Activity squat/lateral scoot transfer Name wc<> black mat table Reps/Minutes 1 Comments Mod I, self heavy BUEs. supine>prone>quadruped Name Mod/Max A x1 into quadruped, heavy pt BUE support Reps/Minutes x2 Comments upper trunk support to allow UEs to get under trunk and good UE lift into quadruped then only CGA cues for chest lift serratus press support, placed 55cm Tball under abdomen, able rocking f/b 15- 25%A for pelvis support/lower abdoment controlled mov't, cues glut fac into hip extension support control/ heavy UE support on pt self. sit<> supine Name Min A x1 R foot medical shoe catches table Reps/Minutes x1 Comments Sit>sup: Min A support for R>L LEs onto table, pt uses momentum and anterior tone for self performance. Cued try slow pacing for TA contraction laying back. sup>sit self trunk BUE support on table, uses anterior tone momentum and TA Min A for R>LLE off table. PT-OP-T Assessment and Plan Start: 03/08/22 17:00 Freq: Status: Active Protocol: Document 06/25/22 12:14 SP (Rec: 06/25/22 13:04 SP [id number]) Physical Therapy Assessment Goals Three Impairment Pt does not have any motor function throughout bilateral LEs Reverberatory Furnace Operator Goal (LTG) Pt to demonstrate 1/5 trace motor contraction in at least one quad in order to begin focus on LE mobility if neural functional return begins. LTG Duration 05/31/22 Two Impairment Pt struggles to perform slideboard car transfer due to upward tilt Longterm Goal (LTG) Pt to demonstrate car transfer SBA using slideboard. LTG Duration 05/31/22 One Impairment Pt does not have an appropriate home exercise program Short Term Goal (STG) Pt to be independent and compliant with an appropriate HEP STG Duration 04/19/22 Assessment Summary Assessment Pt responded well to ther ex seated EOtable, cues for slow pacing movement for improved stability awareness. Pt reports increased glut, ES and hip flexor stretch during modified child's pose and prone over pillows this tx. GOod UE WB stability to transition positions. Pt was able to wc transfer to/from mat table Mod I. Almost I sit> Supine but R shoe catches table needing assist. Physical Therapy Plan Frequency and Duration Frequency of Treatment 2x/Week Plan of Care Start Date 06/04/22 Plan of Care End Date 09/02/22 Therapeutic Interventions Therapeutic Interventions Aquatic Therapy,Balance Training,Coordination Training ,Gait Training,Home Exercise Program,Manual Therapy, Neuromuscular Re-education, Orthotic/Prosthetic Management ,Patient/Caregiver Education, Self-Care/Home Management, Sensory Integration,Soft Tissue Mobilization, Therapeutic Activities, Therapeutic Exercises, Wheelchair Management Next Visit Focus/Plan Next Note Type Treatment Note Next Visit Plan Continue seated at EOtable ther ex to progress proprioception and core strengthening, quadruped mobility, work toward floor transfers Continue UE and core strengthening, LE PROM. POC: Transfers, mobility, LE ROM *Consider sit to stander in future when has better TA and hip abd/add control.
--- NOTE | 2022-06-28 14:30 | PT.OTN ---
Current Diagnoses Paraplegia, unspecified (06/28/22) Other specified personal risk factors, not elsewhere classified (06/28/22) Other specified postprocedural states (06/28/22) Physical Therapy Treatment Note PT-OP-A Visit Information Start: 03/08/22 17:00 Freq: Status: Active Protocol: Document 06/28/22 13:47 SP (Rec: 06/28/22 14:34 SP [id number]) Out-Patient Physical Therapy Visit Information Visit Information Visit Type Treatment Note Visit Start Time 13:47 Visit Stop Time 14:30 Total Visit Minutes 43 Visit Number 26 Number of FOREST FIRE CONTROL OFFICER Visits 2 Evaluation Information Evaluation Date 03/08/22 PT-OP-B Current Condition Start: 03/08/22 17:00 Freq: Status: Active Protocol: Document 03/08/22 11:15 DCW (Rec: 03/08/22 17:11 DCW [id number]) Current Condition History of Current Condition Onset Date 12/16/21 Current Complaints Paraplegia History of Current Condition Pt is a 71 year old male with a very unfortunate medical history. Pt was hiking [place] on 12/16/21 with a friend, finished up, drive back to his friend's home to drop him off, and noticed his left leg was collapsing. By the time pt drove home, both legs were giving out and numb. Pt was suddenly paralized from the waist down, was taken to the ED, and was flown to [facility] on 12/17/21. The following day, he underwent a laminectomy to relieve pressure from the thoracic epidural hematoma which had developed following his hike, which was pressing on his spinal cord. Following surgery , pt was in recovery for a week and was then transfered to rehab for 20 days, when he was finally discharged home in a wheelchair on 01/19/22. Pt reports his surgeon informed him that it is a possibility that he gets some return of nerve function. Has experienced some changes in his right LE, but has no motor function at this time from ~ T10 down. Minimal sensory return on right side, none on left. Pt has been anxious to get in to therapy and do everything he can to help return to function. Pt's , who attended his evaluation, notes that she has been doing a lot of PROM in his legs at night to keep everything moving. Pt can feel some stretching during PROM in his right leg. Pt has additionally already started occupational therapy, and has been practicing some seated stabilization. Pt transfers with a slide board, but notes it is difficult to do into his car, because he has to transfer upward at an incline. Treatment Goals Patient/Caregiver Goals I will do anything possible to get out of this wheelchair. My neurologist told me he has seen people recover from this , so I am not giving up hope. PT-OP-C Subjective Start: 03/08/22 17:00 Freq: Status: Active Protocol: Document 06/28/22 13:47 SP (Rec: 06/28/22 14:34 SP [id number]) OP-PT Subjective Patient Comments Patient Comments Pt reports stiff today. PT-OP-G Mobility & Gait Start: 03/08/22 17:00 Freq: Status: Active Protocol: Document 06/04/22 12:02 DCW (Rec: 06/04/22 12:32 DCW [id number]) OP Mobility Evaluation Transfers Bed to Chair Transfers Transfers using UE Wheelchair Management Type of Wheelchair Manual w/c PT-OP-H Neuro Start: 03/08/22 17:00 Freq: Status: Active Protocol: Document 06/04/22 12:02 DCW (Rec: 06/04/22 12:32 DCW [id number]) Sensation Evaluation Gross Sensation Gross Sensation Left LE Impaired,Right LE Impaired,Trunk Impaired Sensation Description Paresthesia,Numbness,Tingling, Pins & [place],Burning Dermatome Impairments L1,L2,L3,L4,L5,S1,S2,S3,S4-5 Location Details Right Leg Light Touch Impaired Sharp/Dull Impaired Deep Pressure Impaired Hot/Cold Absent Protective Sensation Absent Proprioception (Position) Impaired Kinesthesia (Movement) Impaired Two-Point Discrimination Absent Tactile Localization Absent Left Leg Light Touch Absent Sharp/Dull Absent Deep Pressure Absent Hot/Cold Absent Protective Sensation Absent Proprioception (Position) Absent Kinesthesia (Movement) Impaired Two-Point Discrimination Absent Tactile Localization Absent Deep Tendon Reflex & Clonus Assessment Deep Tendon Reflex Right Achilles Deep Tendon Reflex 1+ Diminished Right Patellar Deep Tendon Reflex 2+ Normal Left Achilles Deep Tendon Reflex 1+ Diminished Left Patellar Deep Tendon Reflex 0 Absent Muscle Tone Tone Assessment Right Lower Extremity Flexor Tone Description Mild Hypotonicity Extensor Tone Description Mild Hypotonicity Left Lower Extremity Flexor Tone Description Mild Hypotonicity Extensor Tone Description Mild Hypotonicity PT-OP-J Posture/Palpation/Skin Start: 03/08/22 17:00 Freq: Status: Active Protocol: Document 06/04/22 12:02 DCW (Rec: 06/04/22 12:32 DCW [id number]) Posture Evaluation Comments Posture Comments Improving abdominal motor function, able to utilize core muscles in order to self- correct when begins to lose balance, not able to correct with gentle push outside of KIARA PT-OP-Q Treatments Start: 03/08/22 17:00 Freq: Status: Active Protocol: Document 06/28/22 13:47 SP (Rec: 06/28/22 14:34 SP [id number]) Cardio Equipment Recumbent Elliptical (Biodex) Duration (Minutes) 10 Resistance 4 (28 calories, 579 steps) Seat Position 9>7 flex> 11 extlast min w/ dycem on seat Other w/c<->Biodex transfer using UEs, gait belt/slide board Min A x1, Max A LEs Therapeutic Exercises Supine Exercises Hip Flexor Stretch Supine Exercise Name Hip Flexor Stretch (LE extension) Side bilateral Resistance manual Comments putting hip and knee into increased extension with over press ant thigh Prone Exercises prone Serratus press elbows Prone Exercise Name inititated Equipment Used 4 pillows under ribcage/chest Reps/Minutes 3 reps x5 sec prone over 4 pillows Prone Exercise Name trunk extension, hip flexor stretch Equipment Used over 4 pillows Reps/Minutes 1 min Comments cued Sitting Exercises HABD Sitting Exercise Name seated EOtable Resistance CG- 15%A Equipment Used Tb #1 Reps/Minutes 2x10 Comments cued slow pacing UE HABD to allow trunk stability Flexion Sitting Exercise Name Shoulder Flexion Side bilateral Resistance Lv 1 Equipment Used seated EOtable, CGA , LOB retro x2 10% recovery Reps/Minutes 2x10 Comments 1 UE anchor TB and WB on table for self stability Rows Sitting Exercise Name seated at EOtable Side bilateral Resistance TB #1 (anchored via PTAide) Equipment Used CG- 20# assist for trunk stability Reps/Minutes 2x10 Comments cued Core slow con/eccentric for allowance sit stability Other Exercises quadruped child's pose Other Exercise Name therapist Min/Mod A Equipment Used trunk over blue 45cm tball Reps/Minutes 45 sec (limted time end tx) Comments cued reach UEs out front quadruped Other Exercise Name rock f/b therapist Min/ Mod A control movement, pt self heavy support BUEs Reps/Minutes x5 reps Comments good glut and ES stretching Therapeutic Activity Therapeutic Activity supine>prone>quadruped Name Mod/Max A x1 into quadruped, heavy pt BUE support Reps/Minutes x2 Comments upper trunk support to allow UEs to get under trunk and good UE lift into quadruped then only CGA cues for chest lift serratus press support, placed 55cm Tball under abdomen, able rocking f/b 15- 25%A for pelvis support/lower abdoment controlled mov't, cues glut fac into hip extension support control/ heavy UE support on pt self. sit<> supine Name L side table CGA-5%A Reps/Minutes x1 Comments Sit>sup: Min A support for R>L LEs onto table, pt uses momentum and anterior tone for self performance. Cued try slow pacing for TA contraction laying back. sup>sit self trunk BUE support on table, uses anterior tone momentum and TA Min A for R>LLE off table. PT-OP-T Assessment and Plan Start: 03/08/22 17:00 Freq: Status: Active Protocol: Document 06/28/22 13:47 SP (Rec: 06/28/22 14:34 SP [id number]) Physical Therapy Assessment Goals Three Impairment Pt does not have any motor function throughout bilateral LEs Alf Goal (LTG) Pt to demonstrate 1/5 trace motor contraction in at least one quad in order to begin focus on LE mobility if neural functional return begins. LTG Duration 05/31/22 Two Impairment Pt struggles to perform slideboard car transfer due to upward tilt [employer] Goal (LTG) Pt to demonstrate car transfer SBA using slideboard. LTG Duration 05/31/22 One Impairment Pt does not have an appropriate home exercise program Short Term Goal (STG) Pt to be independent and compliant with an appropriate HEP STG Duration 04/19/22 Assessment Summary Assessment Pt responded well to quadruped posterior chain stretching: ES, glut/piriformis then anterior chain stretching prone over pillows and able to come to WB elbows TS extension and brief serratus press facilitation. Pt improved awareness slow pacing UE resisted ther ex with support cg- Min A self corrections seated stability with least support from FOREST FIRE CONTROL OFFICER. Decrease in support supine>sit off L EO table. Physical Therapy Plan Frequency and Duration Frequency of Treatment 2x/Week Plan of Care Start Date 06/04/22 Plan of Care End Date 09/02/22 Therapeutic Interventions Therapeutic Interventions Aquatic Therapy,Balance Training,Coordination Training ,Gait Training,Home Exercise Program,Manual Therapy, Neuromuscular Re-education, Orthotic/Prosthetic Management ,Patient/Caregiver Education, Self-Care/Home Management, Sensory Integration,Soft Tissue Mobilization, Therapeutic Activities, Therapeutic Exercises, Wheelchair Management Next Visit Focus/Plan Next Note Type Treatment Note Next Visit Plan Continue seated at EOtable ther ex to progress proprioception and core strengthening, quadruped mobility, work toward floor transfers Continue UE and core strengthening, LE PROM. POC: Transfers, mobility, LE ROM *Consider sit to stander in future when has better TA and hip abd/add control.
--- NOTE | 2022-07-02 13:00 | PT.OTN ---
Current Diagnoses Paraplegia, unspecified (07/02/22) Other specified personal risk factors, not elsewhere classified (07/02/22) Other specified postprocedural states (07/02/22) Physical Therapy Treatment Note PT-OP-A Visit Information Start: 03/08/22 17:00 Freq: Status: Active Protocol: Document 07/02/22 12:16 SP (Rec: 07/02/22 13:04 SP [id number]) Out-Patient Physical Therapy Visit Information Visit Information Visit Type Treatment Note Visit Start Time 12:20 Visit Stop Time 13:00 Total Visit Minutes 40 Visit Number 27 Number of DIRECTOR CORRECTIONAL AGENCY Visits 3 Evaluation Information Evaluation Date 03/08/22 PT-OP-B Current Condition Start: 03/08/22 17:00 Freq: Status: Active Protocol: Document 03/08/22 11:15 DCW (Rec: 03/08/22 17:11 DCW [id number]) Current Condition History of Current Condition Onset Date 12/16/21 Current Complaints Paraplegia History of Current Condition Pt is a 71 year old male with a very unfortunate medical history. Pt was hiking [place] on 12/16/21 with a friend, finished up, drive back to his friend's home to drop him off, and noticed his left leg was collapsing. By the time pt drove home, both legs were giving out and numb. Pt was suddenly paralized from the waist down, was taken to the ED, and was flown to [facility] on 12/17/21. The following day, he underwent a laminectomy to relieve pressure from the thoracic epidural hematoma which had developed following his hike, which was pressing on his spinal cord. Following surgery , pt was in recovery for a week and was then transfered to rehab for 20 days, when he was finally discharged home in a wheelchair on 01/19/22. Pt reports his surgeon informed him that it is a possibility that he gets some return of nerve function. Has experienced some changes in his right LE, but has no motor function at this time from ~ T10 down. Minimal sensory return on right side, none on left. Pt has been anxious to get in to therapy and do everything he can to help return to function. Pt's , who attended his evaluation, notes that she has been doing a lot of PROM in his legs at night to keep everything moving. Pt can feel some stretching during PROM in his right leg. Pt has additionally already started occupational therapy, and has been practicing some seated stabilization. Pt transfers with a slide board, but notes it is difficult to do into his car, because he has to transfer upward at an incline. Treatment Goals Patient/Caregiver Goals I will do anything possible to get out of this wheelchair. My neurologist told me he has seen people recover from this , so I am not giving up hope. PT-OP-C Subjective Start: 03/08/22 17:00 Freq: Status: Active Protocol: Document 07/02/22 12:16 SP (Rec: 07/02/22 13:04 SP [id number]) OP-PT Subjective Patient Comments Patient Comments Pt reports nothing new to report, continued stiffness BLEs. PT-OP-G Mobility & Gait Start: 03/08/22 17:00 Freq: Status: Active Protocol: Document 06/04/22 12:02 DCW (Rec: 06/04/22 12:32 DCW [id number]) OP Mobility Evaluation Transfers Bed to Chair Transfers Transfers using UE Wheelchair Management Type of Wheelchair Manual w/c PT-OP-H Neuro Start: 03/08/22 17:00 Freq: Status: Active Protocol: Document 06/04/22 12:02 DCW (Rec: 06/04/22 12:32 DCW [id number]) Sensation Evaluation Gross Sensation Gross Sensation Left LE Impaired,Right LE Impaired,Trunk Impaired Sensation Description Paresthesia,Numbness,Tingling, Pins & [place],Burning Dermatome Impairments L1,L2,L3,L4,L5,S1,S2,S3,S4-5 Location Details Right Leg Light Touch Impaired Sharp/Dull Impaired Deep Pressure Impaired Hot/Cold Absent Protective Sensation Absent Proprioception (Position) Impaired Kinesthesia (Movement) Impaired Two-Point Discrimination Absent Tactile Localization Absent Left Leg Light Touch Absent Sharp/Dull Absent Deep Pressure Absent Hot/Cold Absent Protective Sensation Absent Proprioception (Position) Absent Kinesthesia (Movement) Impaired Two-Point Discrimination Absent Tactile Localization Absent Deep Tendon Reflex & Clonus Assessment Deep Tendon Reflex Right Achilles Deep Tendon Reflex 1+ Diminished Right Patellar Deep Tendon Reflex 2+ Normal Left Achilles Deep Tendon Reflex 1+ Diminished Left Patellar Deep Tendon Reflex 0 Absent Muscle Tone Tone Assessment Right Lower Extremity Flexor Tone Description Mild Hypotonicity Extensor Tone Description Mild Hypotonicity Left Lower Extremity Flexor Tone Description Mild Hypotonicity Extensor Tone Description Mild Hypotonicity PT-OP-J Posture/Palpation/Skin Start: 03/08/22 17:00 Freq: Status: Active Protocol: Document 06/04/22 12:02 DCW (Rec: 06/04/22 12:32 DCW [id number]) Posture Evaluation Comments Posture Comments Improving abdominal motor function, able to utilize core muscles in order to self- correct when begins to lose balance, not able to correct with gentle push outside of KIARA PT-OP-Q Treatments Start: 03/08/22 17:00 Freq: Status: Active Protocol: Document 07/02/22 12:16 SP (Rec: 07/02/22 13:04 SP [id number]) Cardio Equipment Recumbent Elliptical (Biodex) Duration (Minutes) 10 Resistance 4 Seat Position 8>7>11 Other w/c<->Biodex transfer using UEs, gait belt/slide board Min A x1, Max A LEs Therapeutic Exercises Supine Exercises LTR Side bilateral Resistance PROM tolerant range Reps/Minutes x10 B, 5 sec hold. Hip Flexor Stretch Supine Exercise Name Hip Flexor Stretch (LE extension) Side bilateral Resistance manual Comments putting hip and knee into increased extension with over press ant thigh Hamstring Stretch Supine Exercise Name HS stretch Side bilateral Equipment Used manual Reps/Minutes 30 Knee to Chest Supine Exercise Name Single KtC Side bilateral Equipment Used manual Reps/Minutes 30 Prone Exercises prone Serratus press elbows Equipment Used 4 pillows under ribcage/chest Reps/Minutes 3 reps x5 sec Comments cued head lift prone over 4 pillows Prone Exercise Name supported trunk extension, hip flexor stretch Equipment Used over 4 pillows Reps/Minutes 3 min Comments able to rest head on hands elbows out underneath him Other Exercises quadruped child's pose Other Exercise Name therapist Min/Mod A Equipment Used trunk over blue 45cm tball> removed Reps/Minutes 1 min Comments cued reach UEs out front Therapeutic Activity Therapeutic Activity supine>prone>quadruped Name Mod/Max A x1 into quadruped, heavy pt BUE support Reps/Minutes x2 Comments upper trunk support to allow UEs to get under trunk and good UE lift into quadruped then only CGA cues for chest lift serratus press support, placed 55cm Tball under abdomen, able rocking f/b 15- 25%A for pelvis support/lower abdoment controlled mov't, cues glut fac into hip extension support control/ heavy UE support on pt self. sit<> supine Name L side table CGA Reps/Minutes x1 Comments Sit>sup: 5% A support for R LEs onto table, pt uses momentum and anterior tone for self performance. Cued try slow pacing for TA contraction laying back. sup>sit self trunk BUE support on table, uses anterior tone momentum and TA Min A for R>LLE off table. Self-Care/Home Management Treatment Education Patient Education Body Mechanics,Home Exercise Program,Joint Protection Other Education ed and spouse training body mechanics support pt stretching, proper positioning of gait belt and observed support for sit<>supine<>SL<> quadruped. PT-OP-T Assessment and Plan Start: 03/08/22 17:00 Freq: Status: Active Protocol: Document 07/02/22 12:16 SP (Rec: 07/02/22 13:04 SP [id number]) Physical Therapy Assessment Goals Three Impairment Pt does not have any motor function throughout bilateral LEs Mcfp Goal (LTG) Pt to demonstrate 1/5 trace motor contraction in at least one quad in order to begin focus on LE mobility if neural functional return begins. LTG Duration 05/31/22 Two Impairment Pt struggles to perform slideboard car transfer due to upward tilt Mcfp Goal (LTG) Pt to demonstrate car transfer SBA using slideboard. LTG Duration 05/31/22 One Impairment Pt does not have an appropriate home exercise program Short Term Goal (STG) Pt to be independent and compliant with an appropriate HEP STG Duration 04/19/22 Assessment Summary Assessment DIRECTOR [employer]RECTIONAL AGENCY provided CGT with spouse proper use gait belt at waist for trunk support vs around chest, spouse body mechanics for assist to pt supine stretching, supine<>SL<> quadruped<>prone, Max A SL> quadruped Marcial quad>SL. Pt able to perform quadruped child's pose stretch without 45cm ball for trunk support stationary stance with good feedback posterior chain stretching. Physical Therapy Plan Frequency and Duration Frequency of Treatment 2x/Week Plan of Care Start Date 06/04/22 Plan of Care End Date 09/02/22 Therapeutic Interventions Therapeutic Interventions Aquatic Therapy,Balance Training,Coordination Training ,Gait Training,Home Exercise Program,Manual Therapy, Neuromuscular Re-education, Orthotic/Prosthetic Management ,Patient/Caregiver Education, Self-Care/Home Management, Sensory Integration,Soft Tissue Mobilization, Therapeutic Activities, Therapeutic Exercises, Wheelchair Management Next Visit Focus/Plan Next Note Type Treatment Note Next Visit Plan Continue seated at EOtable ther ex to progress proprioception and core strengthening, quadruped mobility, work toward floor transfers Continue UE and core strengthening, LE PROM. POC: Transfers, mobility, LE ROM *Consider sit to stander in future when has better TA and hip abd/add control.
--- NOTE | 2022-07-10 12:50 | PT.OTN ---
Current Diagnoses Paraplegia, unspecified (07/10/22) Other specified personal risk factors, not elsewhere classified (07/10/22) Other specified postprocedural states (07/10/22) Physical Therapy Treatment Note PT-OP-A Visit Information Start: 03/08/22 17:00 Freq: Status: Active Protocol: Document 07/10/22 12:05 DCW (Rec: 07/10/22 12:50 DCW [id number]) Out-Patient Physical Therapy Visit Information Visit Information Visit Type Treatment Note Visit Start Time 12:05 Visit Stop Time 12:45 Total Visit Minutes 40 Visit Number 28 Number of FISHER POT Visits 0 Evaluation Information Evaluation Date 03/08/22 PT-OP-B Current Condition Start: 03/08/22 17:00 Freq: Status: Active Protocol: Document 03/08/22 11:15 DCW (Rec: 03/08/22 17:11 DCW [id number]) Current Condition History of Current Condition Onset Date 12/16/21 Current Complaints Paraplegia History of Current Condition Pt is a 71 year old male with a very unfortunate medical history. Pt was hiking [employer] on 12/16/21 with a friend, finished up, drive back to his friend's home to drop him off, and noticed his left leg was collapsing. By the time pt drove home, both legs were giving out and numb. Pt was suddenly paralized from the waist down, was taken to the ED, and was flown to [facility] on 12/17/21. The following day, he underwent a laminectomy to relieve pressure from the thoracic epidural hematoma which had developed following his hike, which was pressing on his spinal cord. Following surgery , pt was in recovery for a week and was then transfered to rehab for 20 days, when he was finally discharged home in a wheelchair on 01/19/22. Pt reports his surgeon informed him that it is a possibility that he gets some return of nerve function. Has experienced some changes in his right LE, but has no motor function at this time from ~ T10 down. Minimal sensory return on right side, none on left. Pt has been anxious to get in to therapy and do everything he can to help return to function. Pt's , who attended his evaluation, notes that she has been doing a lot of PROM in his legs at night to keep everything moving. Pt can feel some stretching during PROM in his right leg. Pt has additionally already started occupational therapy, and has been practicing some seated stabilization. Pt transfers with a slide board, but notes it is difficult to do into his car, because he has to transfer upward at an incline. Treatment Goals Patient/Caregiver Goals I will do anything possible to get out of this wheelchair. My neurologist told me he has seen people recover from this , so I am not giving up hope. PT-OP-C Subjective Start: 03/08/22 17:00 Freq: Status: Active Protocol: Document 07/10/22 12:05 DCW (Rec: 07/10/22 12:50 DCW [id number]) OP-PT Subjective Patient Comments Patient Comments Pt continuing to note stiffness in his legs, feels his left leg is more stiff during the day, while his right leg seems to stiffen up in the night. PT-OP-G Mobility & Gait Start: 03/08/22 17:00 Freq: Status: Active Protocol: Document 06/04/22 12:02 DCW (Rec: 06/04/22 12:32 DCW [id number]) OP Mobility Evaluation Transfers Bed to Chair Transfers Transfers using UE Wheelchair Management Type of Wheelchair Manual w/c PT-OP-H Neuro Start: 03/08/22 17:00 Freq: Status: Active Protocol: Document 06/04/22 12:02 DCW (Rec: 06/04/22 12:32 DCW [id number]) Sensation Evaluation Gross Sensation Gross Sensation Left LE Impaired,Right LE Impaired,Trunk Impaired Sensation Description Paresthesia,Numbness,Tingling, Pins & [place],Burning Dermatome Impairments L1,L2,L3,L4,L5,S1,S2,S3,S4-5 Location Details Right Leg Light Touch Impaired Sharp/Dull Impaired Deep Pressure Impaired Hot/Cold Absent Protective Sensation Absent Proprioception (Position) Impaired Kinesthesia (Movement) Impaired Two-Point Discrimination Absent Tactile Localization Absent Left Leg Light Touch Absent Sharp/Dull Absent Deep Pressure Absent Hot/Cold Absent Protective Sensation Absent Proprioception (Position) Absent Kinesthesia (Movement) Impaired Two-Point Discrimination Absent Tactile Localization Absent Deep Tendon Reflex & Clonus Assessment Deep Tendon Reflex Right Achilles Deep Tendon Reflex 1+ Diminished Right Patellar Deep Tendon Reflex 2+ Normal Left Achilles Deep Tendon Reflex 1+ Diminished Left Patellar Deep Tendon Reflex 0 Absent Muscle Tone Tone Assessment Right Lower Extremity Flexor Tone Description Mild Hypotonicity Extensor Tone Description Mild Hypotonicity Left Lower Extremity Flexor Tone Description Mild Hypotonicity Extensor Tone Description Mild Hypotonicity PT-OP-J Posture/Palpation/Skin Start: 03/08/22 17:00 Freq: Status: Active Protocol: Document 06/04/22 12:02 DCW (Rec: 06/04/22 12:32 DCW [id number]) Posture Evaluation Comments Posture Comments Improving abdominal motor function, able to utilize core muscles in order to self- correct when begins to lose balance, not able to correct with gentle push outside of KIARA PT-OP-Q Treatments Start: 03/08/22 17:00 Freq: Status: Active Protocol: Document 07/10/22 12:05 DCW (Rec: 07/10/22 12:50 DCW [id number]) Cardio Equipment Recumbent Elliptical (Biodex) Duration (Minutes) 10 Resistance 4 Seat Position 9 Other w/c<->Biodex transfer using UEs, gait belt, Max Ax1 Therapeutic Exercises Supine Exercises Hip Flexor Stretch Supine Exercise Name Hip Flexor Stretch (LE extension) Side bilateral Resistance manual Comments putting hip and knee into increased extension with over press ant thigh Hamstring Stretch Supine Exercise Name HS stretch Side bilateral Equipment Used manual Reps/Minutes 30 Comments Use wedge d/t excessive kyphosis Knee to Chest Supine Exercise Name Single KtC Side bilateral Equipment Used manual Reps/Minutes 30 Comments Use wedge d/t excessive kyphosis Other Exercises Approximation Other Exercise Name Hip approximation in quad, therapist overpressure through hips quadruped child's pose Other Exercise Name therapist Min/Mod A Equipment Used trunk over blue 45cm tball> removed Reps/Minutes 1 min Comments cued reach UEs out front quadruped Other Exercise Name rock f/b therapist Min/ Mod A control movement, pt self heavy support BUEs Reps/Minutes x5 reps Comments good glut and ES stretching Therapeutic Activity Therapeutic Activity supine>prone>quadruped Name Mod/Max A x1 into quadruped, heavy pt BUE support Reps/Minutes x2 Comments upper trunk support to allow UEs to get under trunk and good UE lift into quadruped then only CGA cues for chest lift serratus press support, placed 55cm Tball under abdomen, able rocking f/b 15- 25%A for pelvis support/lower abdoment controlled mov't, cues glut fac into hip extension support control/ heavy UE support on pt self. sit<> supine Name L side table CGA Reps/Minutes x1 Comments Sit>sup: 5% A support for R LEs onto table, pt uses momentum and anterior tone for self performance. Cued try slow pacing for TA contraction laying back. sup>sit self trunk BUE support on table, uses anterior tone momentum and TA Min A for R>LLE off table. PT-OP-T Assessment and Plan Start: 03/08/22 17:00 Freq: Status: Active Protocol: Document 07/10/22 12:05 DCW (Rec: 07/10/22 12:50 DCW [id number]) Physical Therapy Assessment Impairments Impairments Activity Tolerance,Balance, Coordination,Functional Activities,Functional Mobility ,Gait,Integument,Sensation, Soft Tissue Mobility,Strength, Tone,Transfers Goals Three Impairment Pt does not have any motor function throughout bilateral LEs Jail Goal (LTG) Pt to demonstrate 1/5 trace motor contraction in at least one quad in order to begin focus on LE mobility if neural functional return begins. LTG Duration 08/10/22 Two Impairment Pt struggles to perform slideboard car transfer due to upward tilt Frame Polisher Goal (LTG) Pt to demonstrate car transfer SBA using slideboard. LTG Duration 09/02/22 One Impairment Pt does not have an appropriate home exercise program Short Term Goal (STG) Pt to be independent and compliant with an appropriate HEP STG Duration 08/10/21 Assessment Summary Assessment Pt continues to do better with transfers into quadruped, needs Min Ax1 for support at hips, but able to stabilize and hold himself in position. Pt gets very good stretch with child's pose, and does well with additional approximation through hips. Physical Therapy Plan Frequency and Duration Frequency of Treatment 2x/Week Plan of Care Start Date 06/04/22 Plan of Care End Date 09/02/22 Therapeutic Interventions Therapeutic Interventions Aquatic Therapy,Balance Training,Coordination Training ,Gait Training,Home Exercise Program,Manual Therapy, Neuromuscular Re-education, Orthotic/Prosthetic Management ,Patient/Caregiver Education, Self-Care/Home Management, Sensory Integration,Soft Tissue Mobilization, Therapeutic Activities, Therapeutic Exercises, Wheelchair Management Next Visit Focus/Plan Next Note Type Treatment Note Next Visit Plan Continue seated at EOtable ther ex to progress proprioception and core strengthening, quadruped mobility, work toward floor transfers Continue UE and core strengthening, LE PROM. POC: Transfers, mobility, LE ROM *Consider sit to stander in future when has better TA and hip abd/add control.
--- NOTE | 2022-07-16 17:23 | PT.OTN ---
Current Diagnoses Paraplegia, unspecified (07/16/22) Other specified personal risk factors, not elsewhere classified (07/16/22) Other specified postprocedural states (07/16/22) Physical Therapy Treatment Note PT-OP-A Visit Information Start: 03/08/22 17:00 Freq: Status: Active Protocol: Document 07/16/22 15:18 NBM (Rec: 07/16/22 17:18 NBM [id number]) Out-Patient Physical Therapy Visit Information Visit Information Visit Type Treatment Note Visit Start Time 15:20 Visit Stop Time 16:08 Total Visit Minutes 48 Visit Number 29 Number of GLASS FRAME FITTER Visits 1 Evaluation Information Evaluation Date 03/08/22 PT-OP-B Current Condition Start: 03/08/22 17:00 Freq: Status: Active Protocol: Document 03/08/22 11:15 DCW (Rec: 03/08/22 17:11 DCW [id number]) Current Condition History of Current Condition Onset Date 12/16/21 Current Complaints Paraplegia History of Current Condition Pt is a 71 year old male with a very unfortunate medical history. Pt was hiking [id number] on 12/16/21 with a friend, finished up, drive back to his friend's home to drop him off, and noticed his left leg was collapsing. By the time pt drove home, both legs were giving out and numb. Pt was suddenly paralized from the waist down, was taken to the ED, and was flown to [facility] on 12/17/21. The following day, he underwent a laminectomy to relieve pressure from the thoracic epidural hematoma which had developed following his hike, which was pressing on his spinal cord. Following surgery , pt was in recovery for a week and was then transfered to rehab for 20 days, when he was finally discharged home in a wheelchair on 01/19/22. Pt reports his surgeon informed him that it is a possibility that he gets some return of nerve function. Has experienced some changes in his right LE, but has no motor function at this time from ~ T10 down. Minimal sensory return on right side, none on left. Pt has been anxious to get in to therapy and do everything he can to help return to function. Pt's , who attended his evaluation, notes that she has been doing a lot of PROM in his legs at night to keep everything moving. Pt can feel some stretching during PROM in his right leg. Pt has additionally already started occupational therapy, and has been practicing some seated stabilization. Pt transfers with a slide board, but notes it is difficult to do into his car, because he has to transfer upward at an incline. Treatment Goals Patient/Caregiver Goals I will do anything possible to get out of this wheelchair. My neurologist told me he has seen people recover from this , so I am not giving up hope. PT-OP-C Subjective Start: 03/08/22 17:00 Freq: Status: Active Protocol: Document 07/16/22 15:18 NBM (Rec: 07/16/22 17:18 NBM [id number]) OP-PT Subjective Patient Comments Patient Comments Pt states legs are both feeling stiff today. PT-OP-G Mobility & Gait Start: 03/08/22 17:00 Freq: Status: Active Protocol: Document 06/04/22 12:02 DCW (Rec: 06/04/22 12:32 DCW [id number]) OP Mobility Evaluation Transfers Bed to Chair Transfers Transfers using UE Wheelchair Management Type of Wheelchair Manual w/c PT-OP-H Neuro Start: 03/08/22 17:00 Freq: Status: Active Protocol: Document 06/04/22 12:02 DCW (Rec: 06/04/22 12:32 DCW [id number]) Sensation Evaluation Gross Sensation Gross Sensation Left LE Impaired,Right LE Impaired,Trunk Impaired Sensation Description Paresthesia,Numbness,Tingling, Pins & Bruno,Burning Dermatome Impairments L1,L2,L3,L4,L5,S1,S2,S3,S4-5 Location Details Right Leg Light Touch Impaired Sharp/Dull Impaired Deep Pressure Impaired Hot/Cold Absent Protective Sensation Absent Proprioception (Position) Impaired Kinesthesia (Movement) Impaired Two-Point Discrimination Absent Tactile Localization Absent Left Leg Light Touch Absent Sharp/Dull Absent Deep Pressure Absent Hot/Cold Absent Protective Sensation Absent Proprioception (Position) Absent Kinesthesia (Movement) Impaired Two-Point Discrimination Absent Tactile Localization Absent Deep Tendon Reflex & Clonus Assessment Deep Tendon Reflex Right Achilles Deep Tendon Reflex 1+ Diminished Right Patellar Deep Tendon Reflex 2+ Normal Left Achilles Deep Tendon Reflex 1+ Diminished Left Patellar Deep Tendon Reflex 0 Absent Muscle Tone Tone Assessment Right Lower Extremity Flexor Tone Description Mild Hypotonicity Extensor Tone Description Mild Hypotonicity Left Lower Extremity Flexor Tone Description Mild Hypotonicity Extensor Tone Description Mild Hypotonicity PT-OP-J Posture/Palpation/Skin Start: 03/08/22 17:00 Freq: Status: Active Protocol: Document 06/04/22 12:02 DCW (Rec: 06/04/22 12:32 DCW [id number]) Posture Evaluation Comments Posture Comments Improving abdominal motor function, able to utilize core muscles in order to self- correct when begins to lose balance, not able to correct with gentle push outside of KIARA PT-OP-M Strength Start: 08/21/22 15:38 Freq: Status: Active Protocol: Document 08/21/22 15:15 DCW (Rec: 08/21/22 15:40 DCW [id number]) Hip Strength Hip Manual Muscle Testing Right Extension (S1) 2- Poor- Adduction 2- Poor- Left Extension (S1) 1 Trace Adduction 0 Zero Knee Strength Knee Manual Muscle Testing Right Flexion (S2) 1 Trace Extension (L3) 1 Trace Left Flexion (S2) 1 Trace Extension (L3) 0 Zero PT-OP-Q Treatments Start: 03/08/22 17:00 Freq: Status: Active Protocol: Document 07/16/22 15:18 NBM (Rec: 07/16/22 17:18 NBM [id number]) Cardio Equipment Recumbent Elliptical (Biodex) Duration (Minutes) 10 Resistance 4 Seat Position 9 Other w/c<->Biodex transfer using UEs, gait belt, Max Ax1 Therapeutic Exercises Supine Exercises Adductor Stretch Supine Exercise Name Manual butterfly stretch Equipment Used manual, breathwork Hip Flexor Stretch Supine Exercise Name Hip Flexor Stretch (LE extension) Side bilateral Resistance manual, breathwork Reps/Minutes improved tone w/ breathwork Comments putting hip and knee into increased extension with over press ant thigh, Hamstring Stretch Supine Exercise Name HS stretch Side bilateral Equipment Used manual, breathwork Reps/Minutes 30 ea Comments seated on Biodex Self-Care/Home Management Treatment Education Caregiver Education Breathwork with stretching Other Education Breathwork with stretching PT-OP-T Assessment and Plan Start: 03/08/22 17:00 Freq: Status: Active Protocol: Document 07/16/22 15:18 NBM (Rec: 07/16/22 17:18 NBM [id number]) Physical Therapy Assessment Impairments Impairments Activity Tolerance,Balance, Coordination,Functional Activities,Functional Mobility ,Gait,Integument,Sensation, Soft Tissue Mobility,Strength, Tone,Transfers Goals Three Impairment Pt does not have any motor function throughout bilateral LEs Sugar Grinder Goal (LTG) Pt to demonstrate 1/5 trace motor contraction in at least one quad in order to begin focus on LE mobility if neural functional return begins. LTG Duration 08/10/22 Two Impairment Pt struggles to perform slideboard car transfer due to upward tilt Mcfp Goal (LTG) Pt to demonstrate car transfer SBA using slideboard. LTG Duration 09/02/22 One Impairment Pt does not have an appropriate home exercise program Short Term Goal (STG) Pt to be independent and compliant with an appropriate HEP STG Duration 08/10/21 Assessment Summary Assessment Pt reports RLE sensation is much greater than LLE sensation throughout treatment . Treatment focus on stretching and education. Liberty is educated on using breathing to decrease tone and improve range w/ stretching on exhale with positive feedback response. Physical Therapy Plan Frequency and Duration Frequency of Treatment 2x/Week Plan of Care Start Date 06/04/22 Plan of Care End Date 09/02/22 Therapeutic Interventions Therapeutic Interventions Aquatic Therapy,Balance Training,Coordination Training ,Gait Training,Home Exercise Program,Manual Therapy, Neuromuscular Re-education, Orthotic/Prosthetic Management ,Patient/Caregiver Education, Self-Care/Home Management, Sensory Integration,Soft Tissue Mobilization, Therapeutic Activities, Therapeutic Exercises, Wheelchair Management Next Visit Focus/Plan Next Note Type Treatment Note Next Visit Plan Continue seated at EOtable ther ex to progress proprioception and core strengthening, quadruped mobility, work toward floor transfers Continue UE and core strengthening, LE PROM. POC: Transfers, mobility, LE ROM *Consider sit to stander in future when has better TA and hip abd/add control.
--- NOTE | 2022-07-23 12:54 | PT.OTN ---
Current Diagnoses Paraplegia, unspecified (07/23/22) Other specified personal risk factors, not elsewhere classified (07/23/22) Other specified postprocedural states (07/23/22) Physical Therapy Treatment Note PT-OP-A Visit Information Start: 03/08/22 17:00 Freq: Status: Active Protocol: Document 07/23/22 11:23 NBM (Rec: 07/23/22 12:48 NBM [id number]) Out-Patient Physical Therapy Visit Information Visit Information Visit Type Treatment Note Visit Start Time 11:20 Visit Stop Time 12:08 Total Visit Minutes 48 Visit Number 30 Number of GLASS SELECTOR Visits 2 Evaluation Information Evaluation Date 03/08/22 PT-OP-B Current Condition Start: 03/08/22 17:00 Freq: Status: Active Protocol: Document 03/08/22 11:15 DCW (Rec: 03/08/22 17:11 DCW [id number]) Current Condition History of Current Condition Onset Date 12/16/21 Current Complaints Paraplegia History of Current Condition Pt is a 71 year old male with a very unfortunate medical history. Pt was hiking [place] [employer] [place] on 12/16/21 with a friend, finished up, drive back to his friend's home to drop him off, and noticed his left leg was collapsing. By the time pt drove home, both legs were giving out and numb. Pt was suddenly paralized from the waist down, was taken to the ED, and was flown to [facility] on 12/17/21. The following day, he underwent a laminectomy to relieve pressure from the thoracic epidural hematoma which had developed following his hike, which was pressing on his spinal cord. Following surgery , pt was in recovery for a week and was then transfered to rehab for 20 days, when he was finally discharged home in a wheelchair on 01/19/22. Pt reports his surgeon informed him that it is a possibility that he gets some return of nerve function. Has experienced some changes in his right LE, but has no motor function at this time from ~ T10 down. Minimal sensory return on right side, none on left. Pt has been anxious to get in to therapy and do everything he can to help return to function. Pt's , who attended his evaluation, notes that she has been doing a lot of PROM in his legs at night to keep everything moving. Pt can feel some stretching during PROM in his right leg. Pt has additionally already started occupational therapy, and has been practicing some seated stabilization. Pt transfers with a slide board, but notes it is difficult to do into his car, because he has to transfer upward at an incline. Treatment Goals Patient/Caregiver Goals I will do anything possible to get out of this wheelchair. My neurologist told me he has seen people recover from this , so I am not giving up hope. PT-OP-C Subjective Start: 03/08/22 17:00 Freq: Status: Active Protocol: Document 07/23/22 11:23 NBM (Rec: 07/23/22 12:48 NBM [id number]) OP-PT Subjective Patient Comments Patient Comments Pt states he has leg stiffness today and that he felt good after last treatment. He's been employing breathwork with stretching since last visit. Karen and I are both on board with that. When I calm down with breathing my muscles relax a lot better. PT-OP-G Mobility & Gait Start: 03/08/22 17:00 Freq: Status: Active Protocol: Document 06/04/22 12:02 DCW (Rec: 06/04/22 12:32 DCW [id number]) OP Mobility Evaluation Transfers Bed to Chair Transfers Transfers using UE Wheelchair Management Type of Wheelchair Manual w/c PT-OP-H Neuro Start: 03/08/22 17:00 Freq: Status: Active Protocol: Document 06/04/22 12:02 DCW (Rec: 06/04/22 12:32 DCW [id number]) Sensation Evaluation Gross Sensation Gross Sensation Left LE Impaired,Right LE Impaired,Trunk Impaired Sensation Description Paresthesia,Numbness,Tingling, Pins & [place],Burning Dermatome Impairments L1,L2,L3,L4,L5,S1,S2,S3,S4-5 Location Details Right Leg Light Touch Impaired Sharp/Dull Impaired Deep Pressure Impaired Hot/Cold Absent Protective Sensation Absent Proprioception (Position) Impaired Kinesthesia (Movement) Impaired Two-Point Discrimination Absent Tactile Localization Absent Left Leg Light Touch Absent Sharp/Dull Absent Deep Pressure Absent Hot/Cold Absent Protective Sensation Absent Proprioception (Position) Absent Kinesthesia (Movement) Impaired Two-Point Discrimination Absent Tactile Localization Absent Deep Tendon Reflex & Clonus Assessment Deep Tendon Reflex Right Achilles Deep Tendon Reflex 1+ Diminished Right Patellar Deep Tendon Reflex 2+ Normal Left Achilles Deep Tendon Reflex 1+ Diminished Left Patellar Deep Tendon Reflex 0 Absent Muscle Tone Tone Assessment Right Lower Extremity Flexor Tone Description Mild Hypotonicity Extensor Tone Description Mild Hypotonicity Left Lower Extremity Flexor Tone Description Mild Hypotonicity Extensor Tone Description Mild Hypotonicity PT-OP-J Posture/Palpation/Skin Start: 03/08/22 17:00 Freq: Status: Active Protocol: Document 06/04/22 12:02 DCW (Rec: 06/04/22 12:32 DCW [id number]) Posture Evaluation Comments Posture Comments Improving abdominal motor function, able to utilize core muscles in order to self- correct when begins to lose balance, not able to correct with gentle push outside of KIARA PT-OP-Q Treatments Start: 03/08/22 17:00 Freq: Status: Active Protocol: Document 07/23/22 11:23 NBM (Rec: 07/23/22 12:48 NBM [id number]) Cardio Equipment Recumbent Elliptical (Biodex) Duration (Minutes) 10 Resistance 4 Seat Position 9 Other w/c<->Biodex transfer using UEs, gait belt, Max Ax1 Therapeutic Exercises Sitting Exercises TA Sitting Exercise Name cued engagement Reps/Minutes 5 sec hold x5 Comments improved awareness of TrA activation focus Calf stretch Sitting Exercise Name seated Calf stretch using 1/2 foam rolls Side bilateral Equipment Used 1/2 foam rolls, gait belt Reps/Minutes 5 min Comments SBA>CGA for sitting EOB Therapeutic Activity Therapeutic Activity squat/lateral scoot transfer Name wc<> black mat table Reps/Minutes 1 Comments Mod I, self heavy BUEs. Slide Board Transfer Name To and from Biodex () Reps/Minutes 2 Comments Pt SB/CGA for slideboard transfer. Manual Therapy Treatment Soft Tissue Mobilization Back Body Location rhomboids, erector spinae, LS, U/M/L Trapezius Mobilization Type Rolling,Sustained Pressure Intensity/Depth Moderate Body Position Sitting Comments + feedback response Neuro Re-Education Treatment Balance Activities balloon volleyball Details reaching; w/ PT Aide Equipment black mat table, balloon, gait belt, wedge Comments 1. seated Edge of black mat table, feet on floor, CGA 2. leaned back onto wedge w/ two pillows, feet off floor - one LOB towards R side w/ GLASS SELECTOR Derrek for recovery seated f/b wt shifting Details w/ reaching Surface seated on black mat table, feet on half foam roller for PF stretch Equipment gait belt Reps/Duration 8 min Comments 1. B UE reach at heights 29, ~38, 42; ipsilateral and crossing midline for landrum bags and placing next to contra and ipsilateral hip - cued cervical and trunk rotation first, then weightshifting to reach. CGA>Derrek 2. lateral weightshifting to L down mat table Self-Care/Home Management Treatment Education Patient Education Body Mechanics,Pain Management ,Posture Other Education Educated pt on core: relationship between diaphragm , Transverse Abdominus, pelvic floor, hip adductors, and importance of not breathholding. Explained how to focus on TrA activation instead of other abdominals. PT-OP-T Assessment and Plan Start: 03/08/22 17:00 Freq: Status: Active Protocol: Document 07/23/22 11:23 NB (Rec: 07/23/22 12:48 [facility] [id number]) Physical Therapy Assessment Impairments Impairments Activity Tolerance,Balance, Coordination,Functional Activities,Functional Mobility ,Gait,Integument,Sensation, Soft Tissue Mobility,Strength, Tone,Transfers Goals Three Impairment Pt does not have any motor function throughout bilateral LEs Jar Filler Goal (LTG) Pt to demonstrate 1/5 trace motor contraction in at least one quad in order to begin focus on LE mobility if neural functional return begins. LTG Duration 08/10/22 Two Impairment Pt struggles to perform slideboard car transfer due to upward tilt Jar Filler Goal (LTG) Pt to demonstrate car transfer SBA using slideboard. LTG Duration 09/02/22 One Impairment Pt does not have an appropriate home exercise program Short Term Goal (STG) Pt to be independent and compliant with an appropriate HEP STG Duration 08/10/21 Assessment Summary Assessment Treatment focus today on seated balance and weightshifting edge of mat table. Pt tolerated treatment well and had one lateral loss of balance to R w/ GLASS SELECTOR Derrek for recovery with balloon volleyball w/ feet off of floor. Educated pt on core: relationship between diaphragm , Transverse Abdominus, pelvic floor, hip adductors, and importance of not breathholding. Explained how to focus on TrA activation instead of other abdominals. Physical Therapy Plan Frequency and Duration Frequency of Treatment 2x/Week Plan of Care Start Date 06/04/22 Plan of Care End Date 09/02/22 Therapeutic Interventions Therapeutic Interventions Aquatic Therapy,Balance Training,Coordination Training ,Gait Training,Home Exercise Program,Manual Therapy, Neuromuscular Re-education, Orthotic/Prosthetic Management ,Patient/Caregiver Education, Self-Care/Home Management, Sensory Integration,Soft Tissue Mobilization, Therapeutic Activities, Therapeutic Exercises, Wheelchair Management Next Visit Focus/Plan Next Note Type Treatment Note Next Visit Plan Consider foam roller on wedge for pec stretch. Continue seated at EOtable ther ex to progress proprioception and core strengthening, quadruped mobility, work toward floor transfers Continue UE and core strengthening, LE PROM. POC: Transfers, mobility, LE ROM *Consider sit to stander in future when has better TA and hip abd/add control.
--- NOTE | 2022-07-24 14:30 | PT.OTN ---
Current Diagnoses Paraplegia, unspecified (07/24/22) Other specified personal risk factors, not elsewhere classified (07/24/22) Other specified postprocedural states (07/24/22) Physical Therapy Treatment Note PT-OP-A Visit Information Start: 03/08/22 17:00 Freq: Status: Active Protocol: Document 07/24/22 13:50 SP (Rec: 07/24/22 15:05 SP [id number]) Out-Patient Physical Therapy Visit Information Visit Information Visit Type Treatment Note Visit Start Time 13:50 Visit Stop Time 14:30 Total Visit Minutes 40 Visit Number 31 Number of [employer] CONSULTANT Visits 3 Evaluation Information Evaluation Date 03/08/22 PT-OP-B Current Condition Start: 03/08/22 17:00 Freq: Status: Active Protocol: Document 03/08/22 11:15 DCW (Rec: 03/08/22 17:11 DCW [id number]) Current Condition History of Current Condition Onset Date 12/16/21 Current Complaints Paraplegia History of Current Condition Pt is a 71 year old male with a very unfortunate medical history. Pt was hiking [place] on 12/16/21 with a friend, finished up, drive back to his friend's home to drop him off, and noticed his left leg was collapsing. By the time pt drove home, both legs were giving out and numb. Pt was suddenly paralized from the waist down, was taken to the ED, and was flown to [facility] on 12/17/21. The following day, he underwent a laminectomy to relieve pressure from the thoracic epidural hematoma which had developed following his hike, which was pressing on his spinal cord. Following surgery , pt was in recovery for a week and was then transfered to rehab for 20 days, when he was finally discharged home in a wheelchair on 01/19/22. Pt reports his surgeon informed him that it is a possibility that he gets some return of nerve function. Has experienced some changes in his right LE, but has no motor function at this time from ~ T10 down. Minimal sensory return on right side, none on left. Pt has been anxious to get in to therapy and do everything he can to help return to function. Pt's , who attended his evaluation, notes that she has been doing a lot of PROM in his legs at night to keep everything moving. Pt can feel some stretching during PROM in his right leg. Pt has additionally already started occupational therapy, and has been practicing some seated stabilization. Pt transfers with a slide board, but notes it is difficult to do into his car, because he has to transfer upward at an incline. Treatment Goals Patient/Caregiver Goals I will do anything possible to get out of this wheelchair. My neurologist told me he has seen people recover from this , so I am not giving up hope. PT-OP-C Subjective Start: 03/08/22 17:00 Freq: Status: Active Protocol: Document 07/24/22 13:50 SP (Rec: 07/24/22 15:05 SP [id number]) OP-PT Subjective Patient Comments Patient Comments Pt reports pretty stiff today in BLEs. PT-OP-G Mobility & Gait Start: 03/08/22 17:00 Freq: Status: Active Protocol: Document 06/04/22 12:02 DCW (Rec: 06/04/22 12:32 DCW [id number]) OP Mobility Evaluation Transfers Bed to Chair Transfers Transfers using UE Wheelchair Management Type of Wheelchair Manual w/c PT-OP-H Neuro Start: 03/08/22 17:00 Freq: Status: Active Protocol: Document 06/04/22 12:02 DCW (Rec: 06/04/22 12:32 DCW [id number]) Sensation Evaluation Gross Sensation Gross Sensation Left LE Impaired,Right LE Impaired,Trunk Impaired Sensation Description Paresthesia,Numbness,Tingling, Pins & [place],Burning Dermatome Impairments L1,L2,L3,L4,L5,S1,S2,S3,S4-5 Location Details Right Leg Light Touch Impaired Sharp/Dull Impaired Deep Pressure Impaired Hot/Cold Absent Protective Sensation Absent Proprioception (Position) Impaired Kinesthesia (Movement) Impaired Two-Point Discrimination Absent Tactile Localization Absent Left Leg Light Touch Absent Sharp/Dull Absent Deep Pressure Absent Hot/Cold Absent Protective Sensation Absent Proprioception (Position) Absent Kinesthesia (Movement) Impaired Two-Point Discrimination Absent Tactile Localization Absent Deep Tendon Reflex & Clonus Assessment Deep Tendon Reflex Right Achilles Deep Tendon Reflex 1+ Diminished Right Patellar Deep Tendon Reflex 2+ Normal Left Achilles Deep Tendon Reflex 1+ Diminished Left Patellar Deep Tendon Reflex 0 Absent Muscle Tone Tone Assessment Right Lower Extremity Flexor Tone Description Mild Hypotonicity Extensor Tone Description Mild Hypotonicity Left Lower Extremity Flexor Tone Description Mild Hypotonicity Extensor Tone Description Mild Hypotonicity PT-OP-J Posture/Palpation/Skin Start: 03/08/22 17:00 Freq: Status: Active Protocol: Document 06/04/22 12:02 DCW (Rec: 06/04/22 12:32 DCW [id number]) Posture Evaluation Comments Posture Comments Improving abdominal motor function, able to utilize core muscles in order to self- correct when begins to lose balance, not able to correct with gentle push outside of KIARA PT-OP-Q Treatments Start: 03/08/22 17:00 Freq: Status: Active Protocol: Document 07/24/22 13:50 SP (Rec: 07/24/22 15:05 SP [id number]) Cardio Equipment Recumbent Elliptical (Biodex) Duration (Minutes) 10 Resistance 4 Seat Position 8>9>10 Other w/c<->Biodex transfer using UEs, gait belt/slide board, Mod Ax1 Therapeutic Exercises Supine Exercises resisted HABD Supine Exercise Name added to HEP post manual, quadruped, prone over pillows Side bilateral Resistance TB #2 Equipment Used foam roller under BLE- cued keep knee extension contact roller Reps/Minutes x10 reps Comments good feedback TS extension/ LT facilitation- cued slow con/ eccentric. DF stretch Supine Exercise Name calf stretch Side bilateral Reps/Minutes 2 min Comments post hip flexor stretch Hip Flexor Stretch Supine Exercise Name Hip Flexor Stretch (LE extension) Side bilateral Resistance manual A>P, breathwork Equipment Used improved decrease tone w/ breathwork Reps/Minutes 4 min Comments putting hip and knee into increased extension with over press ant thigh Prone Exercises prone over 4 pillows Prone Exercise Name supported trunk extension, hip flexor stretch Equipment Used over 4 pillows Reps/Minutes 3 min Comments able to rest head on hands elbows out underneath him Sitting Exercises receiprocal UEs flex/ext Side bilateral Resistance TB #2 Equipment Used sit EO mat table 25%A Reps/Minutes x10 reps Comments cued trunk center stability with slow mobility HABD Sitting Exercise Name seated EOtable- elbows straight Resistance Tb #2, Equipment Used sit EO mat table- CG- 15%A Reps/Minutes 2x10 Comments cued slow pacing UE HABD to allow trunk stability- slow pacing Bicep curls to overhead press Sitting Exercise Name Overhead press Side bilateral Resistance TB #2 -opp UE contact/appointment specialist on edge table for self support Equipment Used sit EO mat table SBA Reps/Minutes 2x10 Comments cued as needed trunk center stability Other Exercises quadruped Other Exercise Name rock f/b therapist CG/ Min A control movement, pt self heavy support BUEs Reps/Minutes x5 reps Comments good glut and ES stretching Therapeutic Activity Therapeutic Activity supine>prone>quadruped Name Mod A x1 into quadruped, heavy pt BUE support Reps/Minutes x1 Comments upper trunk support to allow UEs to get under trunk and good UE lift into quadruped then only CGA cues for chest lift serratus press support, placed 55cm Tball under abdomen, able rocking f/b 15- 25%A for pelvis support/lower abdoment controlled mov't, cues glut fac into hip extension support control/ heavy UE support on pt self. sit<> supine Name L side table CGA Reps/Minutes x1 Comments Sit>sup: 5%A support for R LEs onto table, pt uses momentum and anterior tone for self performance. Cued try slow pacing for TA contraction laying back. sup>sit self trunk BUE support on table, decreased momentum more UE/ core lift and TA SBA. Manual Therapy Treatment Soft Tissue Mobilization Back Body Location B rhomboids, erector spinae, LS, Low trap Mobilization Type Strumming,Sustained Pressure Intensity/Depth Moderate Body Position Prone Comments + feedback response modified prone over 4 pillows PT-OP-T Assessment and Plan Start: 03/08/22 17:00 Freq: Status: Active Protocol: Document 07/24/22 13:50 SP (Rec: 07/24/22 15:05 SP [id number]) Physical Therapy Assessment Goals Three Impairment Pt does not have any motor function throughout bilateral LEs Snf Goal (LTG) Pt to demonstrate 1/5 trace motor contraction in at least one quad in order to begin focus on LE mobility if neural functional return begins. LTG Duration 08/10/22 Two Impairment Pt struggles to perform slideboard car transfer due to upward tilt Snf Goal (LTG) Pt to demonstrate car transfer SBA using slideboard. LTG Duration 09/02/22 One Impairment Pt does not have an appropriate home exercise program Short Term Goal (STG) Pt to be independent and compliant with an appropriate HEP STG Duration 08/10/21 Assessment Summary Assessment Pt improved 3-5%A during UE ther ex seated EOmat table, min A HABD today rest able to self correct receiprocal UE flex/ext. Pt improved TS extension over pillows then carryover muscle effort added resisted HABD supine while maintaining hip/ knee extension contact over foam roller. Pt demonstrated improved more upright mid trunk seated in w/c end tx. Physical Therapy Plan Frequency and Duration Frequency of Treatment 2x/Week Plan of Care Start Date 06/04/22 Plan of Care End Date 09/02/22 Therapeutic Interventions Therapeutic Interventions Aquatic Therapy,Balance Training,Coordination Training ,Gait Training,Home Exercise Program,Manual Therapy, Neuromuscular Re-education, Orthotic/Prosthetic Management ,Patient/Caregiver Education, Self-Care/Home Management, Sensory Integration,Soft Tissue Mobilization, Therapeutic Activities, Therapeutic Exercises, Wheelchair Management Next Visit Focus/Plan Next Note Type Treatment Note Next Visit Plan Consider foam roller on wedge for pec stretch, recheck HABD supine TB #2. Continue seated at EOtable ther ex to progress proprioception and core strengthening, quadruped mobility, work toward floor transfers Continue UE and core strengthening, LE PROM. POC: Transfers, mobility, LE ROM *Consider sit to stander in future when has better TA and hip abd/add control.
--- NOTE | 2022-07-30 15:15 | PT.OTN ---
Current Diagnoses Paraplegia, unspecified (07/30/22) Other specified personal risk factors, not elsewhere classified (07/30/22) Other specified postprocedural states (07/30/22) Physical Therapy Treatment Note PT-OP-A Visit Information Start: 03/08/22 17:00 Freq: Status: Active Protocol: Document 07/30/22 14:33 SP (Rec: 07/30/22 15:50 SP [id number]) Out-Patient Physical Therapy Visit Information Visit Information Visit Type Treatment Note Visit Note -13 after last PN on 06/04/22 -17 visits total with 2022 insurance approval Medicare Advantage, allowed 19. Visit Start Time 14:33 Visit Stop Time 15:15 Total Visit Minutes 42 Visit Number 32 Number of SLIDE FORMING MACHINE OPERATOR Visits 4 Evaluation Information Evaluation Date 03/08/22 PT-OP-B Current Condition Start: 03/08/22 17:00 Freq: Status: Active Protocol: Document 03/08/22 11:15 DCW (Rec: 03/08/22 17:11 DCW [id number]) Current Condition History of Current Condition Onset Date 12/16/21 Current Complaints Paraplegia History of Current Condition Pt is a 71 year old male with a very unfortunate medical history. Pt was hiking [place] on 12/16/21 with a friend, finished up, drive back to his friend's home to drop him off, and noticed his left leg was collapsing. By the time pt drove home, both legs were giving out and numb. Pt was suddenly paralized from the waist down, was taken to the ED, and was flown to [facility] on 12/17/21. The following day, he underwent a laminectomy to relieve pressure from the thoracic epidural hematoma which had developed following his hike, which was pressing on his spinal cord. Following surgery , pt was in recovery for a week and was then transfered to rehab for 20 days, when he was finally discharged home in a wheelchair on 01/19/22. Pt reports his surgeon informed him that it is a possibility that he gets some return of nerve function. Has experienced some changes in his right LE, but has no motor function at this time from ~ T10 down. Minimal sensory return on right side, none on left. Pt has been anxious to get in to therapy and do everything he can to help return to function. Pt's , who attended his evaluation, notes that she has been doing a lot of PROM in his legs at night to keep everything moving. Pt can feel some stretching during PROM in his right leg. Pt has additionally already started occupational therapy, and has been practicing some seated stabilization. Pt transfers with a slide board, but notes it is difficult to do into his car, because he has to transfer upward at an incline. Treatment Goals Patient/Caregiver Goals I will do anything possible to get out of this wheelchair. My neurologist told me he has seen people recover from this , so I am not giving up hope. PT-OP-C Subjective Start: 03/08/22 17:00 Freq: Status: Active Protocol: Document 07/30/22 14:33 SP (Rec: 07/30/22 15:50 SP [id number]) OP-PT Subjective Patient Comments Patient Comments Pt reports pretty stiff today in BLEs. Only have 1 more appt and want help to add more. PT-OP-G Mobility & Gait Start: 03/08/22 17:00 Freq: Status: Active Protocol: Document 06/04/22 12:02 DCW (Rec: 06/04/22 12:32 DCW [id number]) OP Mobility Evaluation Transfers Bed to Chair Transfers Transfers using UE Wheelchair Management Type of Wheelchair Manual w/c PT-OP-H Neuro Start: 03/08/22 17:00 Freq: Status: Active Protocol: Document 06/04/22 12:02 DCW (Rec: 06/04/22 12:32 DCW [id number]) Sensation Evaluation Gross Sensation Gross Sensation Left LE Impaired,Right LE Impaired,Trunk Impaired Sensation Description Paresthesia,Numbness,Tingling, Pins & [place],Burning Dermatome Impairments L1,L2,L3,L4,L5,S1,S2,S3,S4-5 Location Details Right Leg Light Touch Impaired Sharp/Dull Impaired Deep Pressure Impaired Hot/Cold Absent Protective Sensation Absent Proprioception (Position) Impaired Kinesthesia (Movement) Impaired Two-Point Discrimination Absent Tactile Localization Absent Left Leg Light Touch Absent Sharp/Dull Absent Deep Pressure Absent Hot/Cold Absent Protective Sensation Absent Proprioception (Position) Absent Kinesthesia (Movement) Impaired Two-Point Discrimination Absent Tactile Localization Absent Deep Tendon Reflex & Clonus Assessment Deep Tendon Reflex Right Achilles Deep Tendon Reflex 1+ Diminished Right Patellar Deep Tendon Reflex 2+ Normal Left Achilles Deep Tendon Reflex 1+ Diminished Left Patellar Deep Tendon Reflex 0 Absent Muscle Tone Tone Assessment Right Lower Extremity Flexor Tone Description Mild Hypotonicity Extensor Tone Description Mild Hypotonicity Left Lower Extremity Flexor Tone Description Mild Hypotonicity Extensor Tone Description Mild Hypotonicity PT-OP-J Posture/Palpation/Skin Start: 03/08/22 17:00 Freq: Status: Active Protocol: Document 06/04/22 12:02 DCW (Rec: 06/04/22 12:32 DCW [id number]) Posture Evaluation Comments Posture Comments Improving abdominal motor function, able to utilize core muscles in order to self- correct when begins to lose balance, not able to correct with gentle push outside of [facility] PT-OP-Q Treatments Start: 03/08/22 17:00 Freq: Status: Active Protocol: Document 07/30/22 14:33 SP (Rec: 07/30/22 15:50 SP [id number]) Cardio Equipment Recumbent Elliptical (Biodex) Duration (Minutes) 10 Resistance 4 Seat Position 7>8>9>10 (started closer R hip /knee flexor tightess 07/30) Other w/c<->Biodex transfer using UEs, gait belt/slide board, Mod Ax1 Therapeutic Exercises Supine Exercises resisted HABD Supine Exercise Name added to HEP: BUE Side bilateral Resistance TB #2 Equipment Used therapist support knee flexion , past foam roller under B knees self contact Reps/Minutes 2 SH x10 reps Comments good feedback TS extension/ LT facilitation- cued slow con/ eccentric. LTR Side bilateral Resistance PROM tolerant range Reps/Minutes 5 sec hold x15 reps. Adductor Stretch Supine Exercise Name butterfly stretch Resistance PROM tolerant range Equipment Used manual, breathwork Sitting Exercises receiprocal UEs flex/ext Sitting Exercise Name HEP reviewed Side bilateral Resistance TB #2 Equipment Used sit EO mat table 15%A Reps/Minutes x10 reps Comments cued trunk center stability with slow mobility Bicep curls to overhead press Sitting Exercise Name Overhead press Side bilateral Resistance TB #2 -opp UE contact/access director on edge table for self support Equipment Used sit EO mat table, CG- 25%A today Reps/Minutes 2x10 Comments cued as needed trunk center stability more posterior centered Therapeutic Activity Therapeutic Activity sit<> supine Name R side table SBA Reps/Minutes x1 Comments Sit>sup: 5%A support for R LEs onto table, pt uses momentum and anterior tone for self performance. Cued try slow pacing for TA contraction laying back. sup>sit self trunk BUE support on table, decreased momentum more UE/ core lift and TA SBA. Slide Board Transfer Name w/c<>Biodex, w/c<>table Reps/Minutes 2 Comments SLIDE FORMING MACHINE OPERATOR provided board placement/ removal, uphill CG/Mod A, CGA/ Min A downhill biodex>w/c, MIn A for trunk support during UE repositioning during slideboard transfer. PT-OP-T Assessment and Plan Start: 03/08/22 17:00 Freq: Status: Active Protocol: Document 07/30/22 14:33 SP (Rec: 07/30/22 15:50 SP [id number]) Physical Therapy Assessment Goals Three Impairment Pt does not have any motor function throughout bilateral LEs [place] Agent Goal (LTG) Pt to demonstrate 1/5 trace motor contraction in at least one quad in order to begin focus on LE mobility if neural functional return begins. LTG Duration 08/10/22 Two Impairment Pt struggles to perform slideboard car transfer due to upward tilt Intermediate Goal (LTG) Pt to demonstrate car transfer SBA using slideboard. 07/30/22: progressing: provides support for trunk stability while pt completes transfer self using slidboard and use over head doorframe handles and car door. has to place/remove slide board. Mod A uphill onto biodex, CG/ MIn A descend off biodex use slideboard. LTG Duration 09/02/22 progressin07/30/22 One Impairment Pt does not have an appropriate home exercise program Short Term Goal (STG) Pt to be independent and compliant with an appropriate HEP 07/30/22: progressing: resisted tricep ext, OH raises in w/c, supine HABD, added scaption OH B #2. STG Duration 08/10/21 progressing 07/30/22 Assessment Summary Assessment Pt required increase trunk support Min 25%A (vs 15% in past) during seated UE resisted ther ex due to trunk lean forward. Increase tone hip and knee flexion today R>L noted with LE limited extension on biodex today, and difficult relaxing during manual extension. Sup>sit SBA, sit>sup SBA, assist R inside shoe uncatch table. w/c<> mat table SBA. Limited time to perform quadruped. Physical Therapy Plan Frequency and Duration Frequency of Treatment 2x/Week Plan of Care Start Date 06/04/22 Plan of Care End Date 09/02/22 Next Visit Focus/Plan Next Note Type Progress Note Next Visit Plan PN due next tx. Manual stretching, quadruped stretching, prone over pillows . POC: Continue UE and core strengthening, LE PROM. Transfers, mobility, LE ROM *SLIDE FORMING MACHINE OPERATOR suggested: Consider sit to stander in future when has better TA and hip abd/add control.
--- NOTE | 2022-08-06 12:18 | PT.OTN ---
Current Diagnoses Paraplegia, unspecified (08/06/22) Other specified personal risk factors, not elsewhere classified (08/06/22) Other specified postprocedural states (08/06/22) Physical Therapy Treatment Note PT-OP-A Visit Information Start: 03/08/22 17:00 Freq: Status: Active Protocol: Document 08/06/22 09:54 [facility] (Rec: 08/06/22 12:18 [facility] [id number]) Out-Patient Physical Therapy Visit Information Visit Information Visit Type Progress Note Visit Start Time 09:48 Visit Stop Time 10:32 Total Visit Minutes 44 Visit Number 33 Number of [employer] SALES Visits 0 PT-OP-B Current Condition Start: 03/08/22 17:00 Freq: Status: Active Protocol: Document 03/08/22 11:15 DCW (Rec: 03/08/22 17:11 DCW [id number]) Current Condition History of Current Condition Onset Date 12/16/21 Current Complaints Paraplegia History of Current Condition Pt is a 71 year old male with a very unfortunate medical history. Pt was hiking [place] on 12/16/21 with a friend, finished up, drive back to his friend's home to drop him off, and noticed his left leg was collapsing. By the time pt drove home, both legs were giving out and numb. Pt was suddenly paralized from the waist down, was taken to the ED, and was flown to [facility] on 12/17/21. The following day, he underwent a laminectomy to relieve pressure from the thoracic epidural hematoma which had developed following his hike, which was pressing on his spinal cord. Following surgery , pt was in recovery for a week and was then transfered to rehab for 20 days, when he was finally discharged home in a wheelchair on 01/19/22. Pt reports his surgeon informed him that it is a possibility that he gets some return of nerve function. Has experienced some changes in his right LE, but has no motor function at this time from ~ T10 down. Minimal sensory return on right side, none on left. Pt has been anxious to get in to therapy and do everything he can to help return to function. Pt's , who attended his evaluation, notes that she has been doing a lot of PROM in his legs at night to keep everything moving. Pt can feel some stretching during PROM in his right leg. Pt has additionally already started occupational therapy, and has been practicing some seated stabilization. Pt transfers with a slide board, but notes it is difficult to do into his car, because he has to transfer upward at an incline. Treatment Goals Patient/Caregiver Goals I will do anything possible to get out of this wheelchair. My neurologist told me he has seen people recover from this , so I am not giving up hope. PT-OP-C Subjective Start: 03/08/22 17:00 Freq: Status: Active Protocol: Document 08/06/22 09:54 [facility] (Rec: 08/06/22 12:18 [facility] [id number]) OP-PT Subjective Patient Comments Patient Comments Pt reports he feels more confident w/slide board transfers. I am never worried anymore about ending up on the floor Patient Reported Progress Improving PT-OP-G Mobility & Gait Start: 03/08/22 17:00 Freq: Status: Active Protocol: Document 06/04/22 12:02 DCW (Rec: 06/04/22 12:32 DC [id number]) OP Mobility Evaluation Transfers Bed to Chair Transfers Transfers using UE Wheelchair Management Type of Wheelchair Manual w/c PT-OP-H Neuro Start: 03/08/22 17:00 Freq: Status: Active Protocol: Document 06/04/22 12:02 DCW (Rec: 06/04/22 12:32 DCW [id number]) Sensation Evaluation Gross Sensation Gross Sensation Left LE Impaired,Right LE Impaired,Trunk Impaired Sensation Description Paresthesia,Numbness,Tingling, Pins & [place],Burning Dermatome Impairments L1,L2,L3,L4,L5,S1,S2,S3,S4-5 Location Details Right Leg Light Touch Impaired Sharp/Dull Impaired Deep Pressure Impaired Hot/Cold Absent Protective Sensation Absent Proprioception (Position) Impaired Kinesthesia (Movement) Impaired Two-Point Discrimination Absent Tactile Localization Absent Left Leg Light Touch Absent Sharp/Dull Absent Deep Pressure Absent Hot/Cold Absent Protective Sensation Absent Proprioception (Position) Absent Kinesthesia (Movement) Impaired Two-Point Discrimination Absent Tactile Localization Absent Deep Tendon Reflex & Clonus Assessment Deep Tendon Reflex Right Achilles Deep Tendon Reflex 1+ Diminished Right Patellar Deep Tendon Reflex 2+ Normal Left Achilles Deep Tendon Reflex 1+ Diminished Left Patellar Deep Tendon Reflex 0 Absent Muscle Tone Tone Assessment Right Lower Extremity Flexor Tone Description Mild Hypotonicity Extensor Tone Description Mild Hypotonicity Left Lower Extremity Flexor Tone Description Mild Hypotonicity Extensor Tone Description Mild Hypotonicity PT-OP-J Posture/Palpation/Skin Start: 03/08/22 17:00 Freq: Status: Active Protocol: Document 06/04/22 12:02 DCW (Rec: 06/04/22 12:32 DCW [id number]) Posture Evaluation Comments Posture Comments Improving abdominal motor function, able to utilize core muscles in order to self- correct when begins to lose balance, not able to correct with gentle push outside of KIARA PT-OP-Q Treatments Start: 03/08/22 17:00 Freq: Status: Active Protocol: Document 08/06/22 09:54 [facility] (Rec: 08/06/22 12:18 [facility] [id number]) Cardio Equipment Recumbent Elliptical (Biodex) Duration (Minutes) 10 Resistance 4 Seat Position 8>9>10 Other w/c<->Biodex transfer using UEs, gait belt/slide board, Mod Ax1 Therapeutic Exercises Supine Exercises DF stretch Supine Exercise Name calf stretch Side bilateral Reps/Minutes 2 min Comments post hip flexor stretch Hip Flexor Stretch Supine Exercise Name Hip Flexor Stretch (LE extension) Side bilateral Resistance facilitation thru diaphram & lat chest-pt taught to self do Equipment Used improved decrease tone w/ breathwork Reps/Minutes 5 min Comments putting hip and knee into increased extension with over press ant thigh Sitting Exercises sit backs Sitting Exercise Name to PT hand-gradual inc distance Side bilateral Reps/Minutes 15 TS ext/ tall chest lift posture Sitting Exercise Name w/PT traction & attempt for seated wt acceptance into ea LEs Side bilateral Reps/Minutes 6 min LAQ Sitting Exercise Name pt attempting to get activation Side bilateral Reps/Minutes 5 ea Therapeutic Activity Therapeutic Activity squat/lateral scoot transfer Name wc<> black mat table Reps/Minutes 1 Comments self heavy BUEs. ; min a for supine to sit Slide Board Transfer Name To and from Biodex (wc) Reps/Minutes 2 Comments CGA for trunk but blocking knees as biodex uphill to walker PT-OP-T Assessment and Plan Start: 03/08/22 17:00 Freq: Status: Active Protocol: Document 08/06/22 09:54 [facility] (Rec: 08/06/22 12:18 [facility] [id number]) Physical Therapy Assessment Goals Three Impairment Pt does not have any motor function throughout bilateral LEs Usp Goal (LTG) Pt to demonstrate 1/5 trace motor contraction in at least one quad in order to begin focus on LE mobility if neural functional return begins. LTG Duration achieved 08/06 Two Impairment Pt struggles to perform slideboard car transfer due to upward tilt Artist Manager Goal (LTG) Pt to demonstrate car transfer SBA using slideboard. 07/30/22: progressing: provides support for trunk stability while pt completes transfer self using slidboard and use over head doorframe handles and car door. has to place/remove slide board. Mod A uphill onto biodex, CG/ MIn A descend off biodex use slideboard. LTG Duration 09/02/22 progressin07/30/22 One Impairment Pt does not have an appropriate home exercise program Short Term Goal (STG) Pt to be independent and compliant with an appropriate HEP 07/30/22: progressing: resisted tricep ext, OH raises in w/c, supine HABD, added scaption OH B #2. STG Duration 08/10/21 progressing 07/30/22 Assessment Summary Assessment Pt is making excellent progress w/PT and is now showing some quad engagment BLEs R>L. He is gaining more independce w/slide board transfers also,. Cont PT to work on funcitonal mobility. Physical Therapy Plan Frequency and Duration Frequency of Treatment 2x/Week Plan of Care Start Date 06/04/22 Plan of Care End Date 09/02/22 Next Visit Focus/Plan Next Note Type Treatment Note Next Visit Plan Manual stretching, quadruped stretching, prone over pillows . POC: Continue UE and core strengthening, LE PROM. Transfers, mobility, LE ROM *[employer] suggested: Consider sit to stander in future when has better TA and hip abd/add control.
--- NOTE | 2022-08-09 10:30 | PT.OTN ---
Current Diagnoses Paraplegia, unspecified (08/09/22) Other specified personal risk factors, not elsewhere classified (08/09/22) Other specified postprocedural states (08/09/22) Physical Therapy Treatment Note PT-OP-A Visit Information Start: 03/08/22 17:00 Freq: Status: Active Protocol: Document 08/09/22 09:56 SP (Rec: 08/09/22 10:35 SP [id number]) Out-Patient Physical Therapy Visit Information Visit Information Visit Type Treatment Note Visit Start Time 09:50 Visit Stop Time 10:30 Total Visit Minutes 40 Visit Number 34 Number of H[employer]SE [employer]IVER Visits 1 Evaluation Information Evaluation Date 03/08/22 PT-OP-B Current Condition Start: 03/08/22 17:00 Freq: Status: Active Protocol: Document 03/08/22 11:15 DCW (Rec: 03/08/22 17:11 DCW [id number]) Current Condition History of Current Condition Onset Date 12/16/21 Current Complaints Paraplegia History of Current Condition Pt is a 71 year old male with a very unfortunate medical history. Pt was hiking [employer] on 12/16/21 with a friend, finished up, drive back to his friend's home to drop him off, and noticed his left leg was collapsing. By the time pt drove home, both legs were giving out and numb. Pt was suddenly paralized from the waist down, was taken to the ED, and was flown to [facility] on 12/17/21. The following day, he underwent a laminectomy to relieve pressure from the thoracic epidural hematoma which had developed following his hike, which was pressing on his spinal cord. Following surgery , pt was in recovery for a week and was then transfered to rehab for 20 days, when he was finally discharged home in a wheelchair on 01/19/22. Pt reports his surgeon informed him that it is a possibility that he gets some return of nerve function. Has experienced some changes in his right LE, but has no motor function at this time from ~ T10 down. Minimal sensory return on right side, none on left. Pt has been anxious to get in to therapy and do everything he can to help return to function. Pt's , who attended his evaluation, notes that she has been doing a lot of PROM in his legs at night to keep everything moving. Pt can feel some stretching during PROM in his right leg. Pt has additionally already started occupational therapy, and has been practicing some seated stabilization. Pt transfers with a slide board, but notes it is difficult to do into his car, because he has to transfer upward at an incline. Treatment Goals Patient/Caregiver Goals I will do anything possible to get out of this wheelchair. My neurologist told me he has seen people recover from this , so I am not giving up hope. PT-OP-C Subjective Start: 03/08/22 17:00 Freq: Status: Active Protocol: Document 08/09/22 09:56 SP (Rec: 08/09/22 10:35 SP [id number]) OP-PT Subjective Patient Comments Patient Comments Pt reports stiff today, was please when told last tx that gaining quad . PT-OP-G Mobility & Gait Start: 03/08/22 17:00 Freq: Status: Active Protocol: Document 06/04/22 12:02 DCW (Rec: 06/04/22 12:32 DCW [id number]) OP Mobility Evaluation Transfers Bed to Chair Transfers Transfers using UE Wheelchair Management Type of Wheelchair Manual w/c PT-OP-H Neuro Start: 03/08/22 17:00 Freq: Status: Active Protocol: Document 06/04/22 12:02 DCW (Rec: 06/04/22 12:32 DCW [id number]) Sensation Evaluation Gross Sensation Gross Sensation Left LE Impaired,Right LE Impaired,Trunk Impaired Sensation Description Paresthesia,Numbness,Tingling, Pins & [place],Burning Dermatome Impairments L1,L2,L3,L4,L5,S1,S2,S3,S4-5 Location Details Right Leg Light Touch Impaired Sharp/Dull Impaired Deep Pressure Impaired Hot/Cold Absent Protective Sensation Absent Proprioception (Position) Impaired Kinesthesia (Movement) Impaired Two-Point Discrimination Absent Tactile Localization Absent Left Leg Light Touch Absent Sharp/Dull Absent Deep Pressure Absent Hot/Cold Absent Protective Sensation Absent Proprioception (Position) Absent Kinesthesia (Movement) Impaired Two-Point Discrimination Absent Tactile Localization Absent Deep Tendon Reflex & Clonus Assessment Deep Tendon Reflex Right Achilles Deep Tendon Reflex 1+ Diminished Right Patellar Deep Tendon Reflex 2+ Normal Left Achilles Deep Tendon Reflex 1+ Diminished Left Patellar Deep Tendon Reflex 0 Absent Muscle Tone Tone Assessment Right Lower Extremity Flexor Tone Description Mild Hypotonicity Extensor Tone Description Mild Hypotonicity Left Lower Extremity Flexor Tone Description Mild Hypotonicity Extensor Tone Description Mild Hypotonicity PT-OP-J Posture/Palpation/Skin Start: 03/08/22 17:00 Freq: Status: Active Protocol: Document 06/04/22 12:02 DCW (Rec: 06/04/22 12:32 DCW [id number]) Posture Evaluation Comments Posture Comments Improving abdominal motor function, able to utilize core muscles in order to self- correct when begins to lose balance, not able to correct with gentle push outside of [place] PT-OP-Q Treatments Start: 03/08/22 17:00 Freq: Status: Active Protocol: Document 08/09/22 09:56 SP (Rec: 08/09/22 10:35 SP [id number]) Cardio Equipment Recumbent Elliptical (Biodex) Duration (Minutes) 10 Resistance 4 Seat Position 9>10 Other w/c<->Biodex transfer using UEs, gait belt/slide board, Mod Ax1 Therapeutic Exercises Supine Exercises leg press Supine Exercise Name LEs 90/90 pt press into extension- individual Side bilateral Resistance AAROM- therapist supported Reps/Minutes x5 reps each LE Comments R poor - small partial range gravity elim, LLE trace calf/ 1st MTP flex/PF resisted HABD Supine Exercise Name added to HEP: BUE Side bilateral Resistance TB #2 Equipment Used bolster behind knees Reps/Minutes x20 reps Comments good feedback TS extension/ LT facilitation- cued slow con/ eccentric. DF stretch Supine Exercise Name calf stretch Side bilateral Reps/Minutes 2 min Comments post chain stretch as well felt Hip Flexor Stretch Supine Exercise Name Hip Flexor Stretch (LE extension) Side bilateral Resistance facilitation thru diaphram & lat chest-pt taught to self do Equipment Used improved decrease tone w/ breathwork Reps/Minutes 5 min Comments putting hip and knee into increased extension with over press ant thigh Knee to Chest Supine Exercise Name Single KtC Side bilateral Equipment Used manual Reps/Minutes 30 Comments Use wedge d/t excessive kyphosis Sitting Exercises HABD Sitting Exercise Name seated EOtable- elbows straight (stren/neuro) Resistance Tb #2, Equipment Used sit EO mat table- CG- 15%A Reps/Minutes 2x10 Comments cued slow pacing UE HABD to allow trunk stability- slow pacing Therapeutic Activity Therapeutic Activity sit<> supine Name L side table SBA Reps/Minutes x1 Comments sup>sit: Marcial support for R LEs off table, pt uses momentum and anterior tone for self performance, ed log roll L and use core/UEs. Slide Board Transfer Name To and from Biodex () Reps/Minutes 2 Comments CGA-Min A for trunk support but blocking knees as biodex uphill to wc PT-OP-T Assessment and Plan Start: 03/08/22 17:00 Freq: Status: Active Protocol: Document 08/09/22 09:56 SP (Rec: 08/09/22 10:35 SP [id number]) Physical Therapy Assessment Goals Three Impairment Pt does not have any motor function throughout bilateral LEs Internet Sales Manager Goal (LTG) Pt to demonstrate 1/5 trace motor contraction in at least one quad in order to begin focus on LE mobility if neural functional return begins. LTG Duration achieved 08/06 Two Impairment Pt struggles to perform slideboard car transfer due to upward tilt Snf Goal (LTG) Pt to demonstrate car transfer SBA using slideboard. 07/30/22: progressing: provides support for trunk stability while pt completes transfer self using slidboard and use over head doorframe handles and car door. has to place/remove slide board. Mod A uphill onto biodex, CG/ MIn A descend off biodex use slideboard. LTG Duration 09/02/22 progressin07/30/22 One Impairment Pt does not have an appropriate home exercise program Short Term Goal (STG) Pt to be independent and compliant with an appropriate HEP 07/30/22: progressing: resisted tricep ext, OH raises in w/c, supine HABD, added scaption OH B #2. STG Duration 08/10/21 progressing 07/30/22 Assessment Summary Assessment Pt able to give posterior chain R hip/knee extension pressure Poor - and LLE trace calf and 1st great toe flex/PF muscle facilitation. Pt improved able to keep knees extension on bolster while performed resisted HABD without anterior flexor tone. Physical Therapy Plan Frequency and Duration Frequency of Treatment 2x/Week Plan of Care Start Date 06/04/22 Plan of Care End Date 09/02/22 Therapeutic Interventions Therapeutic Interventions Aquatic Therapy,Balance Training,Coordination Training ,Gait Training,Home Exercise Program,Manual Therapy, Neuromuscular Re-education, Orthotic/Prosthetic Management ,Patient/Caregiver Education, Self-Care/Home Management, Sensory Integration,Soft Tissue Mobilization, Therapeutic Activities, Therapeutic Exercises, Wheelchair Management Next Visit Focus/Plan Next Note Type Treatment Note Next Visit Plan PT to add appt prior 09/02 update POC> Manual stretching, quadruped stretching, prone over pillows. POC: Continue UE and core strengthening, LE PROM. Transfers, mobility, LE ROM *HORSE AND WAGON DRIVER suggested: Consider sit to stander in future when has better TA and hip abd/add control.
--- NOTE | 2022-08-12 16:01 | PT.OTN ---
Current Diagnoses Paraplegia, unspecified (08/12/22) Other specified personal risk factors, not elsewhere classified (08/12/22) Other specified postprocedural states (08/12/22) Physical Therapy Treatment Note PT-OP-A Visit Information Start: 03/08/22 17:00 Freq: Status: Active Protocol: Document 08/12/22 15:20 DCW (Rec: 08/12/22 16:01 DCW [id number]) Out-Patient Physical Therapy Visit Information Visit Information Visit Type Treatment Note Visit Start Time 15:20 Visit Stop Time 16:00 Total Visit Minutes 40 Visit Number 35 Number of TALENT DEVELOPMENT MANAGER Visits 0 Evaluation Information Evaluation Date 03/08/22 PT-OP-B Current Condition Start: 03/08/22 17:00 Freq: Status: Active Protocol: Document 03/08/22 11:15 DCW (Rec: 03/08/22 17:11 DCW [id number]) Current Condition History of Current Condition Onset Date 12/16/21 Current Complaints Paraplegia History of Current Condition Pt is a 71 year old male with a very unfortunate medical history. Pt was hiking [employer] on 12/16/21 with a friend, finished up, drive back to his friend's home to drop him off, and noticed his left leg was collapsing. By the time pt drove home, both legs were giving out and numb. Pt was suddenly paralized from the waist down, was taken to the ED, and was flown to [facility] on 12/17/21. The following day, he underwent a laminectomy to relieve pressure from the thoracic epidural hematoma which had developed following his hike, which was pressing on his spinal cord. Following surgery , pt was in recovery for a week and was then transfered to rehab for 20 days, when he was finally discharged home in a wheelchair on 01/19/22. Pt reports his surgeon informed him that it is a possibility that he gets some return of nerve function. Has experienced some changes in his right LE, but has no motor function at this time from ~ T10 down. Minimal sensory return on right side, none on left. Pt has been anxious to get in to therapy and do everything he can to help return to function. Pt's , who attended his evaluation, notes that she has been doing a lot of PROM in his legs at night to keep everything moving. Pt can feel some stretching during PROM in his right leg. Pt has additionally already started occupational therapy, and has been practicing some seated stabilization. Pt transfers with a slide board, but notes it is difficult to do into his car, because he has to transfer upward at an incline. Treatment Goals Patient/Caregiver Goals I will do anything possible to get out of this wheelchair. My neurologist told me he has seen people recover from this , so I am not giving up hope. PT-OP-C Subjective Start: 03/08/22 17:00 Freq: Status: Active Protocol: Document 08/12/22 15:20 DCW (Rec: 08/12/22 16:01 DCW [id number]) OP-PT Subjective Patient Comments Patient Comments Pt concerned that he is plateauing, despite recent gains with quad activity. PT-OP-G Mobility & Gait Start: 03/08/22 17:00 Freq: Status: Active Protocol: Document 06/04/22 12:02 DCW (Rec: 06/04/22 12:32 DCW [id number]) OP Mobility Evaluation Transfers Bed to Chair Transfers Transfers using UE Wheelchair Management Type of Wheelchair Manual w/c PT-OP-H Neuro Start: 03/08/22 17:00 Freq: Status: Active Protocol: Document 06/04/22 12:02 DCW (Rec: 06/04/22 12:32 DCW [id number]) Sensation Evaluation Gross Sensation Gross Sensation Left LE Impaired,Right LE Impaired,Trunk Impaired Sensation Description Paresthesia,Numbness,Tingling, Pins & [place],Burning Dermatome Impairments L1,L2,L3,L4,L5,S1,S2,S3,S4-5 Location Details Right Leg Light Touch Impaired Sharp/Dull Impaired Deep Pressure Impaired Hot/Cold Absent Protective Sensation Absent Proprioception (Position) Impaired Kinesthesia (Movement) Impaired Two-Point Discrimination Absent Tactile Localization Absent Left Leg Light Touch Absent Sharp/Dull Absent Deep Pressure Absent Hot/Cold Absent Protective Sensation Absent Proprioception (Position) Absent Kinesthesia (Movement) Impaired Two-Point Discrimination Absent Tactile Localization Absent Deep Tendon Reflex & Clonus Assessment Deep Tendon Reflex Right Achilles Deep Tendon Reflex 1+ Diminished Right Patellar Deep Tendon Reflex 2+ Normal Left Achilles Deep Tendon Reflex 1+ Diminished Left Patellar Deep Tendon Reflex 0 Absent Muscle Tone Tone Assessment Right Lower Extremity Flexor Tone Description Mild Hypotonicity Extensor Tone Description Mild Hypotonicity Left Lower Extremity Flexor Tone Description Mild Hypotonicity Extensor Tone Description Mild Hypotonicity PT-OP-J Posture/Palpation/Skin Start: 03/08/22 17:00 Freq: Status: Active Protocol: Document 06/04/22 12:02 DCW (Rec: 06/04/22 12:32 DCW [id number]) Posture Evaluation Comments Posture Comments Improving abdominal motor function, able to utilize core muscles in order to self- correct when begins to lose balance, not able to correct with gentle push outside of KIARA PT-OP-Q Treatments Start: 03/08/22 17:00 Freq: Status: Active Protocol: Document 08/12/22 15:20 DCW (Rec: 08/12/22 16:01 DCW [id number]) Cardio Equipment Recumbent Elliptical (Biodex) Duration (Minutes) 10 Resistance 5 Seat Position 9 Other w/c<->Biodex transfer using UEs, gait belt/slide board, Mod Ax1 Therapeutic Exercises Supine Exercises leg press Supine Exercise Name LEs 90/90 pt press into extension- individual Side bilateral Resistance AAROM- therapist supported Reps/Minutes x5 reps each LE Comments R poor - small partial range gravity elim, LLE trace calf/ 1st MTP flex/PF DF stretch Supine Exercise Name calf stretch Side bilateral Reps/Minutes 2 min Comments post chain stretch as well felt Hip Flexor Stretch Supine Exercise Name Hip Flexor Stretch (LE extension) Side bilateral Resistance facilitation thru diaphram & lat chest-pt taught to self do Equipment Used improved decrease tone w/ breathwork Reps/Minutes 5 min Comments putting hip and knee into increased extension with over press ant thigh Hamstring Stretch Supine Exercise Name HS stretch Side bilateral Reps/Minutes 30 Comments Use wedge d/t excessive kyphosis Knee to Chest Supine Exercise Name Single KtC Side bilateral Equipment Used manual Reps/Minutes 30 Comments Use wedge d/t excessive kyphosis Sitting Exercises sit backs Sitting Exercise Name to PT hand-gradual inc distance Side bilateral Reps/Minutes x15 PT-OP-T Assessment and Plan Start: 03/08/22 17:00 Freq: Status: Active Protocol: Document 08/12/22 15:20 DCW (Rec: 08/12/22 16:01 DCW [id number]) Physical Therapy Assessment Impairments Impairments Activity Tolerance,Balance, Coordination,Functional Activities,Functional Mobility ,Gait,Integument,Sensation, Soft Tissue Mobility,Strength, Tone,Transfers Goals Three Impairment Pt does not have any motor function throughout bilateral LEs Button Station Worker Goal (LTG) Pt to demonstrate 1/5 trace motor contraction in at least one quad in order to begin focus on LE mobility if neural functional return begins. LTG Duration achieved 08/06 Two Impairment Pt struggles to perform slideboard car transfer due to upward tilt Button Station Worker Goal (LTG) Pt to demonstrate car transfer SBA using slideboard. 07/30/22: progressing: provides support for trunk stability while pt completes transfer self using slidboard and use over head doorframe handles and car door. has to place/remove slide board. Mod A uphill onto biodex, CG/ MIn A descend off biodex use slideboard. LTG Duration 09/02/22 progressin07/30/22 One Impairment Pt does not have an appropriate home exercise program Short Term Goal (STG) Pt to be independent and compliant with an appropriate HEP 07/30/22: progressing: resisted tricep ext, OH raises in w/c, supine HABD, added scaption OH B #2. STG Duration 08/10/21 progressing 07/30/22 Assessment Summary Assessment Pt very happy with confirmation of improving muscle activation in LEs, able to give slight resistance with leg-press motion, improving core activation. Physical Therapy Plan Frequency and Duration Frequency of Treatment 2x/Week Plan of Care Start Date 06/04/22 Plan of Care End Date 09/02/22 Therapeutic Interventions Therapeutic Interventions Aquatic Therapy,Balance Training,Coordination Training ,Gait Training,Home Exercise Program,Manual Therapy, Neuromuscular Re-education, Orthotic/Prosthetic Management ,Patient/Caregiver Education, Self-Care/Home Management, Sensory Integration,Soft Tissue Mobilization, Therapeutic Activities, Therapeutic Exercises, Wheelchair Management Next Visit Focus/Plan Next Note Type Treatment Note Next Visit Plan PT to add appt prior 09/02 update POC> Manual stretching, quadruped stretching, prone over pillows. POC: Continue UE and core strengthening, LE PROM. Transfers, mobility, LE ROM *TALENT DEVELOPMENT MANAGER suggested: Consider sit to stander in future when has better TA and hip abd/add control.
--- NOTE | 2022-08-15 16:02 | PT.OTN ---
Current Diagnoses Paraplegia, unspecified (08/15/22) Other specified personal risk factors, not elsewhere classified (08/15/22) Other specified postprocedural states (08/15/22) Physical Therapy Treatment Note PT-OP-A Visit Information Start: 03/08/22 17:00 Freq: Status: Active Protocol: Document 08/15/22 15:23 SP (Rec: 08/15/22 16:09 SP [id number]) Out-Patient Physical Therapy Visit Information Visit Information Visit Type Re-Evaluation Visit Note Juan Lees TELECOMMUNICATIONS OFFICER Virgie provided pt support for manual stretching with cues and direction of TELECOMMUNICATIONS OFFICER Philomena. Visit Start Time 15:23 Visit Stop Time 16:02 Total Visit Minutes 39 Visit Number 36 Number of TELECOMMUNICATIONS OFFICER Visits 1 Evaluation Information Evaluation Date 03/08/22 PT-OP-B Current Condition Start: 03/08/22 17:00 Freq: Status: Active Protocol: Document 03/08/22 11:15 DCW (Rec: 03/08/22 17:11 DCW [id number]) Current Condition History of Current Condition Onset Date 12/16/21 Current Complaints Paraplegia History of Current Condition Pt is a 71 year old male with a very unfortunate medical history. Pt was hiking [place] on 12/16/21 with a friend, finished up, drive back to his friend's home to drop him off, and noticed his left leg was collapsing. By the time pt drove home, both legs were giving out and numb. Pt was suddenly paralized from the waist down, was taken to the ED, and was flown to [facility] on 12/17/21. The following day, he underwent a laminectomy to relieve pressure from the thoracic epidural hematoma which had developed following his hike, which was pressing on his spinal cord. Following surgery , pt was in recovery for a week and was then transfered to rehab for 20 days, when he was finally discharged home in a wheelchair on 01/19/22. Pt reports his surgeon informed him that it is a possibility that he gets some return of nerve function. Has experienced some changes in his right LE, but has no motor function at this time from ~ T10 down. Minimal sensory return on right side, none on left. Pt has been anxious to get in to therapy and do everything he can to help return to function. Pt's , who attended his evaluation, notes that she has been doing a lot of PROM in his legs at night to keep everything moving. Pt can feel some stretching during PROM in his right leg. Pt has additionally already started occupational therapy, and has been practicing some seated stabilization. Pt transfers with a slide board, but notes it is difficult to do into his car, because he has to transfer upward at an incline. Treatment Goals Patient/Caregiver Goals I will do anything possible to get out of this wheelchair. My neurologist told me he has seen people recover from this , so I am not giving up hope. PT-OP-C Subjective Start: 03/08/22 17:00 Freq: Status: Active Protocol: Document 08/15/22 15:23 SP (Rec: 08/15/22 16:09 SP [id number]) OP-PT Subjective Patient Comments Patient Comments Pt reports pretty tight today. PT-OP-G Mobility & Gait Start: 03/08/22 17:00 Freq: Status: Active Protocol: Document 06/04/22 12:02 DCW (Rec: 06/04/22 12:32 DCW [id number]) OP Mobility Evaluation Transfers Bed to Chair Transfers Transfers using UE Wheelchair Management Type of Wheelchair Manual w/c PT-OP-H Neuro Start: 03/08/22 17:00 Freq: Status: Active Protocol: Document 06/04/22 12:02 DCW (Rec: 06/04/22 12:32 DCW [id number]) Sensation Evaluation Gross Sensation Gross Sensation Left LE Impaired,Right LE Impaired,Trunk Impaired Sensation Description Paresthesia,Numbness,Tingling, Pins & [place],Burning Dermatome Impairments L1,L2,L3,L4,L5,S1,S2,S3,S4-5 Location Details Right Leg Light Touch Impaired Sharp/Dull Impaired Deep Pressure Impaired Hot/Cold Absent Protective Sensation Absent Proprioception (Position) Impaired Kinesthesia (Movement) Impaired Two-Point Discrimination Absent Tactile Localization Absent Left Leg Light Touch Absent Sharp/Dull Absent Deep Pressure Absent Hot/Cold Absent Protective Sensation Absent Proprioception (Position) Absent Kinesthesia (Movement) Impaired Two-Point Discrimination Absent Tactile Localization Absent Deep Tendon Reflex & Clonus Assessment Deep Tendon Reflex Right Achilles Deep Tendon Reflex 1+ Diminished Right Patellar Deep Tendon Reflex 2+ Normal Left Achilles Deep Tendon Reflex 1+ Diminished Left Patellar Deep Tendon Reflex 0 Absent Muscle Tone Tone Assessment Right Lower Extremity Flexor Tone Description Mild Hypotonicity Extensor Tone Description Mild Hypotonicity Left Lower Extremity Flexor Tone Description Mild Hypotonicity Extensor Tone Description Mild Hypotonicity PT-OP-J Posture/Palpation/Skin Start: 03/08/22 17:00 Freq: Status: Active Protocol: Document 06/04/22 12:02 DCW (Rec: 06/04/22 12:32 DCW [id number]) Posture Evaluation Comments Posture Comments Improving abdominal motor function, able to utilize core muscles in order to self- correct when begins to lose balance, not able to correct with gentle push outside of KIARA PT-OP-Q Treatments Start: 03/08/22 17:00 Freq: Status: Active Protocol: Document 08/15/22 15:23 SP (Rec: 08/15/22 16:09 SP [id number]) Cardio Equipment Recumbent Stepper (Sci-Fit) Duration (Minutes) 4 Resistance 3 Seat Position 10 Other slide board Min to lateral scoot, stable he advances Therapeutic Exercises Supine Exercises D2 flexion Supine Exercise Name D2 flexion Side bilateral Resistance TB3 Reps/Minutes 2 sets x10 Comments VC for scaption plane resisted HABD Supine Exercise Name added to HEP: BUE Side bilateral Resistance TB #2>3 Equipment Used bolster behind knees Reps/Minutes x20 reps Comments good feedback TS extension/ LT facilitation- cued slow con/ eccentric. Hip Flexor Stretch Supine Exercise Name Hip Flexor Stretch (LE extension) Side bilateral Resistance facilitation thru diaphram & lat chest-pt taught to self do Equipment Used improved decrease tone w/ breathwork Reps/Minutes 5 min Comments putting hip and knee into increased extension with over press ant thigh Knee to Chest Supine Exercise Name Single KtC Side bilateral Equipment Used manual Reps/Minutes 30 Comments Use wedge + 3 pillowsd/t excessive kyphosis Other Exercises quadruped child's pose Other Exercise Name quadruped child's pose Reps/Minutes 5 min Comments cued reach UEs out front quadruped Other Exercise Name f/b therapist CG, pt self heavy support BUEs Reps/Minutes x5 reps Comments good glut and ES stretching PT-OP-T Assessment and Plan Start: 03/08/22 17:00 Freq: Status: Active Protocol: Document 08/15/22 15:23 SP (Rec: 08/15/22 16:09 SP [id number]) Physical Therapy Assessment Goals Three Impairment Pt does not have any motor function throughout bilateral LEs Senior Living Goal (LTG) Pt to demonstrate 1/5 trace motor contraction in at least one quad in order to begin focus on LE mobility if neural functional return begins. LTG Duration achieved 08/06 Two Impairment Pt struggles to perform slideboard car transfer due to upward tilt Wheat Washer Goal (LTG) Pt to demonstrate car transfer SBA using slideboard. 07/30/22: progressing: provides support for trunk stability while pt completes transfer self using slidboard and use over head doorframe handles and car door. has to place/remove slide board. Mod A uphill onto biodex, CG/ MIn A descend off biodex use slideboard. LTG Duration 09/02/22 progressin07/30/22 One Impairment Pt does not have an appropriate home exercise program Short Term Goal (STG) Pt to be independent and compliant with an appropriate HEP 07/30/22: progressing: resisted tricep ext, OH raises in w/c, supine HABD, added scaption OH B #2. STG Duration 08/10/21 progressing 07/30/22 Assessment Summary Assessment Good response to manual stretching. Was ableto maintain hip/knee extension during upper body posterior chain strengthening and with cues of breath allowed releasing of flexor tone. Physical Therapy Plan Frequency and Duration Frequency of Treatment 2x/Week Plan of Care Start Date 06/04/22 Plan of Care End Date 09/02/22 Therapeutic Interventions Therapeutic Interventions Aquatic Therapy,Balance Training,Coordination Training ,Gait Training,Home Exercise Program,Manual Therapy, Neuromuscular Re-education, Orthotic/Prosthetic Management ,Patient/Caregiver Education, Self-Care/Home Management, Sensory Integration,Soft Tissue Mobilization, Therapeutic Activities, Therapeutic Exercises, Wheelchair Management Next Visit Focus/Plan Next Note Type Treatment Note Next Visit Plan PT to add appt prior 09/02 update POC> Manual stretching, quadruped stretching, prone over pillows. POC: Continue UE and core strengthening, LE PROM. Transfers, mobility, LE ROM *TELECOMMUNICATIONS OFFICER suggested: Consider sit to stander in future when has better TA and hip abd/add control.
--- NOTE | 2022-08-19 16:00 | PT.OTN ---
Current Diagnoses Paraplegia, unspecified (08/19/22) Other specified personal risk factors, not elsewhere classified (08/19/22) Other specified postprocedural states (08/19/22) Physical Therapy Treatment Note PT-OP-A Visit Information Start: 03/08/22 17:00 Freq: Status: Active Protocol: Document 08/19/22 15:15 DCW (Rec: 08/19/22 16:00 DCW [id number]) Out-Patient Physical Therapy Visit Information Visit Information Visit Type Treatment Note Visit Start Time 15:15 Visit Stop Time 16:00 Total Visit Minutes 45 Visit Number 37 Number of STORE SALES CONSULTANT Visits 0 Evaluation Information Evaluation Date 03/08/22 PT-OP-B Current Condition Start: 03/08/22 17:00 Freq: Status: Active Protocol: Document 03/08/22 11:15 DCW (Rec: 03/08/22 17:11 DCW [id number]) Current Condition History of Current Condition Onset Date 12/16/21 Current Complaints Paraplegia History of Current Condition Pt is a 71 year old male with a very unfortunate medical history. Pt was hiking [place] on 12/16/21 with a friend, finished up, drive back to his friend's home to drop him off, and noticed his left leg was collapsing. By the time pt drove home, both legs were giving out and numb. Pt was suddenly paralized from the waist down, was taken to the ED, and was flown to [facility] on 12/17/21. The following day, he underwent a laminectomy to relieve pressure from the thoracic epidural hematoma which had developed following his hike, which was pressing on his spinal cord. Following surgery , pt was in recovery for a week and was then transfered to rehab for 20 days, when he was finally discharged home in a wheelchair on 01/19/22. Pt reports his surgeon informed him that it is a possibility that he gets some return of nerve function. Has experienced some changes in his right LE, but has no motor function at this time from ~ T10 down. Minimal sensory return on right side, none on left. Pt has been anxious to get in to therapy and do everything he can to help return to function. Pt's , who attended his evaluation, notes that she has been doing a lot of PROM in his legs at night to keep everything moving. Pt can feel some stretching during PROM in his right leg. Pt has additionally already started occupational therapy, and has been practicing some seated stabilization. Pt transfers with a slide board, but notes it is difficult to do into his car, because he has to transfer upward at an incline. Treatment Goals Patient/Caregiver Goals I will do anything possible to get out of this wheelchair. My neurologist told me he has seen people recover from this , so I am not giving up hope. PT-OP-C Subjective Start: 03/08/22 17:00 Freq: Status: Active Protocol: Document 08/19/22 15:15 DCW (Rec: 08/19/22 16:00 DCW [id number]) OP-PT Subjective Patient Comments Patient Comments My legs are tighter than I don't know what. PT-OP-G Mobility & Gait Start: 03/08/22 17:00 Freq: Status: Active Protocol: Document 06/04/22 12:02 DCW (Rec: 06/04/22 12:32 DCW [id number]) OP Mobility Evaluation Transfers Bed to Chair Transfers Transfers using UE Wheelchair Management Type of Wheelchair Manual w/c PT-OP-H Neuro Start: 03/08/22 17:00 Freq: Status: Active Protocol: Document 06/04/22 12:02 DCW (Rec: 06/04/22 12:32 DCW [id number]) Sensation Evaluation Gross Sensation Gross Sensation Left LE Impaired,Right LE Impaired,Trunk Impaired Sensation Description Paresthesia,Numbness,Tingling, Pins & Miller,Burning Dermatome Impairments L1,L2,L3,L4,L5,S1,S2,S3,S4-5 Location Details Right Leg Light Touch Impaired Sharp/Dull Impaired Deep Pressure Impaired Hot/Cold Absent Protective Sensation Absent Proprioception (Position) Impaired Kinesthesia (Movement) Impaired Two-Point Discrimination Absent Tactile Localization Absent Left Leg Light Touch Absent Sharp/Dull Absent Deep Pressure Absent Hot/Cold Absent Protective Sensation Absent Proprioception (Position) Absent Kinesthesia (Movement) Impaired Two-Point Discrimination Absent Tactile Localization Absent Deep Tendon Reflex & Clonus Assessment Deep Tendon Reflex Right Achilles Deep Tendon Reflex 1+ Diminished Right Patellar Deep Tendon Reflex 2+ Normal Left Achilles Deep Tendon Reflex 1+ Diminished Left Patellar Deep Tendon Reflex 0 Absent Muscle Tone Tone Assessment Right Lower Extremity Flexor Tone Description Mild Hypotonicity Extensor Tone Description Mild Hypotonicity Left Lower Extremity Flexor Tone Description Mild Hypotonicity Extensor Tone Description Mild Hypotonicity PT-OP-J Posture/Palpation/Skin Start: 03/08/22 17:00 Freq: Status: Active Protocol: Document 06/04/22 12:02 DCW (Rec: 06/04/22 12:32 DCW [id number]) Posture Evaluation Comments Posture Comments Improving abdominal motor function, able to utilize core muscles in order to self- correct when begins to lose balance, not able to correct with gentle push outside of [place] PT-OP-Q Treatments Start: 03/08/22 17:00 Freq: Status: Active Protocol: Document 08/19/22 15:15 DCW (Rec: 08/19/22 16:00 DCW [id number]) Cardio Equipment Recumbent Elliptical (Biodex) Duration (Minutes) 10 Resistance 5 Seat Position 9->8 Other w/c<->Biodex transfer using UEs, gait belt, Mod Ax1 Gym Equipment Therapeutic Ball LTR Exercise Details LTR Ball Size/Color Blue - 45 cm Comments Assisted rotations Therapeutic Exercises Supine Exercises leg press Supine Exercise Name LEs 90/90 pt press into extension- individual Side bilateral Resistance AAROM- therapist supported Reps/Minutes x5 reps each LE Comments R poor - small partial range gravity elim, LLE trace calf/ 1st MTP flex/PF DF stretch Supine Exercise Name calf stretch Side bilateral Reps/Minutes 2 min Comments post chain stretch as well felt Hip Adduction Supine Exercise Name Adduction of R hip Adductor Stretch Supine Exercise Name butterfly stretch Resistance PROM tolerant range Equipment Used manual, breathwork Hip Flexor Stretch Supine Exercise Name Hip Flexor Stretch (LE extension) Side bilateral Resistance facilitation thru diaphram & lat chest-pt taught to self do Equipment Used improved decrease tone w/ breathwork Reps/Minutes 5 min Comments putting hip and knee into increased extension with over press ant thigh Hamstring Stretch Supine Exercise Name HS stretch Side bilateral Reps/Minutes 30 Comments Use wedge d/t excessive kyphosis Knee to Chest Supine Exercise Name Single KtC Side bilateral Equipment Used manual Reps/Minutes 30 Comments Use wedge + 3 pillowsd/t excessive kyphosis PT-OP-T Assessment and Plan Start: 03/08/22 17:00 Freq: Status: Active Protocol: Document 08/19/22 15:15 DCW (Rec: 08/19/22 16:00 DCW [id number]) Physical Therapy Assessment Impairments Impairments Activity Tolerance,Balance, Coordination,Functional Activities,Functional Mobility ,Gait,Integument,Sensation, Soft Tissue Mobility,Strength, Tone,Transfers Goals Three Impairment Pt does not have any motor function throughout bilateral LEs Group Leader Wafer Polishing Goal (LTG) Pt to demonstrate 1/5 trace motor contraction in at least one quad in order to begin focus on LE mobility if neural functional return begins. LTG Duration achieved 08/06 Two Impairment Pt struggles to perform slideboard car transfer due to upward tilt Group Leader Wafer Polishing Goal (LTG) Pt to demonstrate car transfer SBA using slideboard. 07/30/22: progressing: provides support for trunk stability while pt completes transfer self using slidboard and use over head doorframe handles and car door. has to place/remove slide board. Mod A uphill onto biodex, CG/ MIn A descend off biodex use slideboard. LTG Duration 09/02/22 progressin07/30/22 One Impairment Pt does not have an appropriate home exercise program Short Term Goal (STG) Pt to be independent and compliant with an appropriate HEP 07/30/22: progressing: resisted tricep ext, OH raises in w/c, supine HABD, added scaption OH B #2. STG Duration 08/10/21 progressing 07/30/22 Assessment Summary Assessment New POC needed next visit, measure functional mobility and ability to contract muscles. Pt doing well with transfers, but with and without slideboard. Physical Therapy Plan Frequency and Duration Frequency of Treatment 2x/Week Plan of Care Start Date 06/04/22 Plan of Care End Date 09/02/22 Therapeutic Interventions Therapeutic Interventions Aquatic Therapy,Balance Training,Coordination Training ,Gait Training,Home Exercise Program,Manual Therapy, Neuromuscular Re-education, Orthotic/Prosthetic Management ,Patient/Caregiver Education, Self-Care/Home Management, Sensory Integration,Soft Tissue Mobilization, Therapeutic Activities, Therapeutic Exercises, Wheelchair Management Next Visit Focus/Plan Next Note Type Progress Note Next Visit Plan PT to add appt prior 09/02 update POC> Manual stretching, quadruped stretching, prone over pillows. POC: Continue UE and core strengthening, LE PROM. Transfers, mobility, LE ROM *STORE SALES CONSULTANT suggested: Consider sit to stander in future when has better TA and hip abd/add control.
--- NOTE | 2022-08-21 16:18 | PT.OTN ---
Current Diagnoses Paraplegia, unspecified (08/21/22) Other specified personal risk factors, not elsewhere classified (08/21/22) Other specified postprocedural states (08/21/22) Physical Therapy Treatment Note PT-OP-A Visit Information Start: 03/08/22 17:00 Freq: Status: Active Protocol: Document 08/21/22 15:15 DCW (Rec: 08/21/22 16:17 DCW [id number]) Out-Patient Physical Therapy Visit Information Visit Information Visit Type Progress Note Visit Start Time 15:15 Visit Stop Time 16:00 Total Visit Minutes 45 Visit Number 38 Number of LEAD FURNACE OPERATOR Visits 0 Evaluation Information Evaluation Date 03/08/22 PT-OP-B Current Condition Start: 03/08/22 17:00 Freq: Status: Active Protocol: Document 03/08/22 11:15 DCW (Rec: 03/08/22 17:11 DCW [id number]) Current Condition History of Current Condition Onset Date 12/16/21 Current Complaints Paraplegia History of Current Condition Pt is a 71 year old male with a very unfortunate medical history. Pt was hiking [place] on 12/16/21 with a friend, finished up, drive back to his friend's home to drop him off, and noticed his left leg was collapsing. By the time pt drove home, both legs were giving out and numb. Pt was suddenly paralized from the waist down, was taken to the ED, and was flown to [facility] on 12/17/21. The following day, he underwent a laminectomy to relieve pressure from the thoracic epidural hematoma which had developed following his hike, which was pressing on his spinal cord. Following surgery , pt was in recovery for a week and was then transfered to rehab for 20 days, when he was finally discharged home in a wheelchair on 01/19/22. Pt reports his surgeon informed him that it is a possibility that he gets some return of nerve function. Has experienced some changes in his right LE, but has no motor function at this time from ~ T10 down. Minimal sensory return on right side, none on left. Pt has been anxious to get in to therapy and do everything he can to help return to function. Pt's , who attended his evaluation, notes that she has been doing a lot of PROM in his legs at night to keep everything moving. Pt can feel some stretching during PROM in his right leg. Pt has additionally already started occupational therapy, and has been practicing some seated stabilization. Pt transfers with a slide board, but notes it is difficult to do into his car, because he has to transfer upward at an incline. Treatment Goals Patient/Caregiver Goals I will do anything possible to get out of this wheelchair. My neurologist told me he has seen people recover from this , so I am not giving up hope. PT-OP-C Subjective Start: 03/08/22 17:00 Freq: Status: Active Protocol: Document 08/21/22 15:15 DCW (Rec: 08/21/22 16:17 DCW [id number]) OP-PT Subjective Patient Comments Patient Comments I'm feeling great today. PT-OP-G Mobility & Gait Start: 03/08/22 17:00 Freq: Status: Active Protocol: Document 08/21/22 15:15 DCW (Rec: 08/21/22 15:38 DCW [id number]) OP Mobility Evaluation Transfers Bed to Chair Transfers Transfers using UE Wheelchair Management Type of Wheelchair Manual w/c PT-OP-H Neuro Start: 03/08/22 17:00 Freq: Status: Active Protocol: Document 08/21/22 15:15 DCW (Rec: 08/21/22 15:38 DCW [id number]) Sensation Evaluation Gross Sensation Gross Sensation Left LE Impaired,Right LE Impaired,Trunk Impaired Sensation Description Paresthesia,Numbness,Tingling, Pins & [place],Burning Dermatome Impairments L1,L2,L3,L4,L5,S1,S2,S3,S4-5 Location Details Right Leg Light Touch Impaired Sharp/Dull Impaired Deep Pressure Impaired Hot/Cold Absent Protective Sensation Absent Proprioception (Position) Impaired Kinesthesia (Movement) Impaired Two-Point Discrimination Absent Tactile Localization Impaired Stereognosis Impaired Left Leg Light Touch Absent Sharp/Dull Absent Deep Pressure Impaired Hot/Cold Absent Protective Sensation Absent Proprioception (Position) Absent Kinesthesia (Movement) Impaired Two-Point Discrimination Absent Tactile Localization Absent Stereognosis Absent Deep Tendon Reflex & Clonus Assessment Deep Tendon Reflex Right Achilles Deep Tendon Reflex 1+ Diminished Right Patellar Deep Tendon Reflex 2+ Normal Left Achilles Deep Tendon Reflex 1+ Diminished Left Patellar Deep Tendon Reflex 0 Absent Muscle Tone Tone Assessment Right Lower Extremity Flexor Tone Description Moderate Hypertonicity Extensor Tone Description Moderate Hypertonicity Left Lower Extremity Flexor Tone Description Moderate Hypertonicity Extensor Tone Description Moderate Hypertonicity PT-OP-J Posture/Palpation/Skin Start: 03/08/22 17:00 Freq: Status: Active Protocol: Document 08/21/22 15:15 DCW (Rec: 08/21/22 15:38 DCW [id number]) Posture Evaluation Comments Posture Comments Significant improvement with core control, able to resist moderate sternal push and self -correct back to sitting position with no LOB. PT-OP-M Strength Start: 08/21/22 15:38 Freq: Status: Active Protocol: Document 08/21/22 15:15 DCW (Rec: 08/21/22 15:40 DCW [id number]) Hip Strength Hip Manual Muscle Testing Right Extension (S1) 2- Poor- Adduction 2- Poor- Left Extension (S1) 1 Trace Adduction 0 Zero Knee Strength Knee Manual Muscle Testing Right Flexion (S2) 1 Trace Extension (L3) 1 Trace Left Flexion (S2) 1 Trace Extension (L3) 0 Zero PT-OP-Q Treatments Start: 03/08/22 17:00 Freq: Status: Active Protocol: Document 08/21/22 15:15 DCW (Rec: 08/21/22 16:17 DCW [id number]) Therapeutic Exercises Supine Exercises Adductor Stretch Supine Exercise Name butterfly stretch Resistance PROM tolerant range Equipment Used manual, breathwork Hip Flexor Stretch Supine Exercise Name Hip Flexor Stretch (LE extension) Side bilateral Resistance facilitation thru diaphram & lat chest-pt taught to self do Equipment Used improved decrease tone w/ breathwork Reps/Minutes 5 min Comments putting hip and knee into increased extension with over press ant thigh Sitting Exercises sit backs Sitting Exercise Name to PT hand-gradual inc distance Side bilateral Comments self sit backs and resisted push backs PT-OP-T Assessment and Plan Start: 03/08/22 17:00 Freq: Status: Active Protocol: Document 08/21/22 15:15 DCW (Rec: 08/21/22 16:17 DCW [id number]) Physical Therapy Assessment Impairments Impairments Activity Tolerance,Balance, Coordination,Functional Activities,Functional Mobility ,Gait,Integument,Sensation, Soft Tissue Mobility,Strength, Tone,Transfers Goals Three Impairment Pt does not have any motor function throughout bilateral LEs Short Term Goal (STG) Pt to demonstrate 1/5 trace motor contraction in at least one quad in order to begin focus on LE mobility if neural functional return begins. STG Duration Met Hand Button Splitter Goal (LTG) Pt to demonstrate right quad strength to at least 2/5, demonstrating movement into ROM in an antigravity position LTG Duration 11/19/22 Two Impairment Pt struggles to perform slideboard car transfer due to upward tilt Mcfp Goal (LTG) Pt to demonstrate car transfer SBA using slideboard. 07/30/22: progressing: provides support for trunk stability while pt completes transfer self using slidboard and use over head doorframe handles and car door. has to place/remove slide board. Mod A uphill onto biodex, CG/ MIn A descend off biodex use slideboard. LTG Duration 11/19/22 progressing, requires assistance One Impairment Pt does not have an appropriate home exercise program Short Term Goal (STG) Pt to be independent and compliant with an appropriate HEP 07/30/22: progressing: resisted tricep ext, OH raises in w/c, supine HABD, added scaption OH B #2. STG Duration 11/19/22 Progressing Progress Towards Goals Progress Towards Goals Slow Progress due to Medical Issues Assessment Summary Assessment Pt showing some progress with sensation, definite improvement with abdominal contraction and stabilization. Appears to have changed from LE hypotonia to hypertonia. Pt much more difficult to passively move through ROM. Pt is showing some progress with R quad contraction, as well as trace R hip extension. Continue to focus on improved ROM, decreased muscle tone, sensory changes, core strengthening and stability, motor control, transfers, bed mobility, and neuromuscular reeducation Physical Therapy Plan Frequency and Duration Frequency of Treatment 2x/Week Plan of Care Start Date 08/21/22 Plan of Care End Date 11/19/22 Therapeutic Interventions Therapeutic Interventions Aquatic Therapy,Balance Training,Coordination Training ,Gait Training,Home Exercise Program,Manual Therapy, Neuromuscular Re-education, Orthotic/Prosthetic Management ,Patient/Caregiver Education, Self-Care/Home Management, Sensory Integration,Soft Tissue Mobilization, Therapeutic Activities, Therapeutic Exercises, Wheelchair Management Next Visit Focus/Plan Next Note Type Progress Note Next Visit Plan PT to add appt prior 09/02 update POC> Manual stretching, quadruped stretching, prone over pillows. POC: Continue UE and core strengthening, LE PROM. Transfers, mobility, LE ROM *LEAD FURNACE OPERATOR suggested: Consider sit to stander in future when has better TA and hip abd/add control.
--- NOTE | 2022-08-21 16:19 | PT.OPPOC ---
Physical, Occupational & Speech Therapy At [facility] Current Diagnoses Paraplegia, unspecified (08/21/22) Other specified personal risk factors, not elsewhere classified (08/21/22) Other specified postprocedural states (08/21/22) Visit Care Team Role Provider Type Octavio Yates MD Family Provider Physician Primary Care Provider Specialty: Family Practice Address: [address] [place] [address], [id number] Email: [email or web address] Charleen Arias PA-C Attending Provider Advanced Picker Feeder Referring Provider Specialty: Medical Address: [address], [address] Email: [email or web address] Plan Of Care PT-OP-T Assessment and Plan Start: 03/08/22 17:00 Freq: Status: Active Protocol: Document 08/21/22 15:15 DCW (Rec: 08/21/22 16:17 DCW [id number]) Physical Therapy Assessment Impairments Impairments Activity Tolerance,Balance, Coordination,Functional Activities,Functional Mobility ,Gait,Integument,Sensation, Soft Tissue Mobility,Strength, Tone,Transfers Goals Three Impairment Pt does not have any motor function throughout bilateral LEs Short Term Goal (STG) Pt to demonstrate 1/5 trace motor contraction in at least one quad in order to begin focus on LE mobility if neural functional return begins. STG Duration Met Longterm Goal (LTG) Pt to demonstrate right quad strength to at least 2/5, demonstrating movement into ROM in an antigravity position LTG Duration 11/19/22 Two Impairment Pt struggles to perform slideboard car transfer due to upward tilt Motor Vehicles Inspector Goal (LTG) Pt to demonstrate car transfer SBA using slideboard. 07/30/22: progressing: provides support for trunk stability while pt completes transfer self using slidboard and use over head doorframe handles and car door. has to place/remove slide board. Mod A uphill onto biodex, CG/ MIn A descend off biodex use slideboard. LTG Duration 11/19/22 progressing, requires assistance One Impairment Pt does not have an appropriate home exercise program Short Term Goal (STG) Pt to be independent and compliant with an appropriate HEP 07/30/22: progressing: resisted tricep ext, OH raises in w/c, supine HABD, added scaption OH B #2. STG Duration 11/19/22 Progressing Progress Towards Goals Progress Towards Goals Slow Progress due to Medical Issues Assessment Summary Assessment Pt showing some progress with sensation, definite improvement with abdominal contraction and stabilization. Appears to have changed from LE hypotonia to hypertonia. Pt much more difficult to passively move through ROM. Pt is showing some progress with R quad contraction, as well as trace R hip extension. Continue to focus on improved ROM, decreased muscle tone, sensory changes, core strengthening and stability, motor control, transfers, bed mobility, and neuromuscular reeducation Physical Therapy Plan Frequency and Duration Frequency of Treatment 2x/Week Plan of Care Start Date 08/21/22 Plan of Care End Date 11/19/22 Therapeutic Interventions Therapeutic Interventions Aquatic Therapy,Balance Training,Coordination Training ,Gait Training,Home Exercise Program,Manual Therapy, Neuromuscular Re-education, Orthotic/Prosthetic Management ,Patient/Caregiver Education, Self-Care/Home Management, Sensory Integration,Soft Tissue Mobilization, Therapeutic Activities, Therapeutic Exercises, Wheelchair Management Next Visit Focus/Plan Next Note Type Progress Note Next Visit Plan PT to add appt prior 09/02 update POC> Manual stretching, quadruped stretching, prone over pillows. POC: Continue UE and core strengthening, LE PROM. Transfers, mobility, LE ROM *FRONT EDGER suggested: Consider sit to stander in future when has better TA and hip abd/add control. Plan of Care Dates Plan of Care Start Date 08/21/22 Plan of Care End Date 11/19/22 Electronically Signed by: Jean Ruggiero, PT 08/21/22 9782 If you are in agreement with this Plan of Care, please return a signed and dated copy. I have reviewed this Plan of Care and certify that the skilled therapy services above are required to meet the patient?s needs. Physician Signature Date Printed Name and Credentials Clinical Instructor Signature Printed Name and Credentials
--- NOTE | 2022-08-28 14:32 | PT.OTN ---
Current Diagnoses Paraplegia, unspecified (08/28/22) Other specified personal risk factors, not elsewhere classified (08/28/22) Other specified postprocedural states (08/28/22) Physical Therapy Treatment Note PT-OP-A Visit Information Start: 03/08/22 17:00 Freq: Status: Active Protocol: Document 08/28/22 13:48 DCW (Rec: 08/28/22 14:32 DCW [id number]) Out-Patient Physical Therapy Visit Information Visit Information Visit Type Treatment Note Visit Start Time 13:48 Visit Stop Time 14:30 Total Visit Minutes 42 Visit Number 39 Number of POCKET STITCHER Visits 0 Evaluation Information Evaluation Date 03/08/22 PT-OP-B Current Condition Start: 03/08/22 17:00 Freq: Status: Active Protocol: Document 03/08/22 11:15 DCW (Rec: 03/08/22 17:11 DCW [id number]) Current Condition History of Current Condition Onset Date 12/16/21 Current Complaints Paraplegia History of Current Condition Pt is a 71 year old male with a very unfortunate medical history. Pt was hiking [employer] on 12/16/21 with a friend, finished up, drive back to his friend's home to drop him off, and noticed his left leg was collapsing. By the time pt drove home, both legs were giving out and numb. Pt was suddenly paralized from the waist down, was taken to the ED, and was flown to [facility] on 12/17/21. The following day, he underwent a laminectomy to relieve pressure from the thoracic epidural hematoma which had developed following his hike, which was pressing on his spinal cord. Following surgery , pt was in recovery for a week and was then transfered to rehab for 20 days, when he was finally discharged home in a wheelchair on 01/19/22. Pt reports his surgeon informed him that it is a possibility that he gets some return of nerve function. Has experienced some changes in his right LE, but has no motor function at this time from ~ T10 down. Minimal sensory return on right side, none on left. Pt has been anxious to get in to therapy and do everything he can to help return to function. Pt's , who attended his evaluation, notes that she has been doing a lot of PROM in his legs at night to keep everything moving. Pt can feel some stretching during PROM in his right leg. Pt has additionally already started occupational therapy, and has been practicing some seated stabilization. Pt transfers with a slide board, but notes it is difficult to do into his car, because he has to transfer upward at an incline. Treatment Goals Patient/Caregiver Goals I will do anything possible to get out of this wheelchair. My neurologist told me he has seen people recover from this , so I am not giving up hope. PT-OP-C Subjective Start: 03/08/22 17:00 Freq: Status: Active Protocol: Document 08/28/22 13:48 DCW (Rec: 08/28/22 14:32 DCW [id number]) OP-PT Subjective Patient Comments Patient Comments I'm feeling like there is more and more volitional movement. PT-OP-G Mobility & Gait Start: 03/08/22 17:00 Freq: Status: Active Protocol: Document 08/21/22 15:15 DCW (Rec: 08/21/22 15:38 DCW [id number]) OP Mobility Evaluation Transfers Bed to Chair Transfers Transfers using UE Wheelchair Management Type of Wheelchair Manual w/c PT-OP-H Neuro Start: 03/08/22 17:00 Freq: Status: Active Protocol: Document 08/21/22 15:15 DCW (Rec: 08/21/22 15:38 DCW [id number]) Sensation Evaluation Gross Sensation Gross Sensation Left LE Impaired,Right LE Impaired,Trunk Impaired Sensation Description Paresthesia,Numbness,Tingling, Pins & [place],Burning Dermatome Impairments L1,L2,L3,L4,L5,S1,S2,S3,S4-5 Location Details Right Leg Light Touch Impaired Sharp/Dull Impaired Deep Pressure Impaired Hot/Cold Absent Protective Sensation Absent Proprioception (Position) Impaired Kinesthesia (Movement) Impaired Two-Point Discrimination Absent Tactile Localization Impaired Stereognosis Impaired Left Leg Light Touch Absent Sharp/Dull Absent Deep Pressure Impaired Hot/Cold Absent Protective Sensation Absent Proprioception (Position) Absent Kinesthesia (Movement) Impaired Two-Point Discrimination Absent Tactile Localization Absent Stereognosis Absent Deep Tendon Reflex & Clonus Assessment Deep Tendon Reflex Right Achilles Deep Tendon Reflex 1+ Diminished Right Patellar Deep Tendon Reflex 2+ Normal Left Achilles Deep Tendon Reflex 1+ Diminished Left Patellar Deep Tendon Reflex 0 Absent Muscle Tone Tone Assessment Right Lower Extremity Flexor Tone Description Moderate Hypertonicity Extensor Tone Description Moderate Hypertonicity Left Lower Extremity Flexor Tone Description Moderate Hypertonicity Extensor Tone Description Moderate Hypertonicity PT-OP-J Posture/Palpation/Skin Start: 03/08/22 17:00 Freq: Status: Active Protocol: Document 08/21/22 15:15 DCW (Rec: 08/21/22 15:38 DCW [id number]) Posture Evaluation Comments Posture Comments Significant improvement with core control, able to resist moderate sternal push and self -correct back to sitting position with no LOB. PT-OP-M Strength Start: 08/21/22 15:38 Freq: Status: Active Protocol: Document 08/21/22 15:15 DCW (Rec: 08/21/22 15:40 DCW [id number]) Hip Strength Hip Manual Muscle Testing Right Extension (S1) 2- Poor- Adduction 2- Poor- Left Extension (S1) 1 Trace Adduction 0 Zero Knee Strength Knee Manual Muscle Testing Right Flexion (S2) 1 Trace Extension (L3) 1 Trace Left Flexion (S2) 1 Trace Extension (L3) 0 Zero PT-OP-Q Treatments Start: 03/08/22 17:00 Freq: Status: Active Protocol: Document 08/28/22 13:48 DCW (Rec: 08/28/22 14:32 DCW [id number]) Cardio Equipment Recumbent Elliptical (Biodex) Duration (Minutes) 10 Resistance 5 Seat Position 12 Other w/c<->Biodex transfer using UEs, gait belt, Mod Ax1 Therapeutic Exercises Supine Exercises leg press Supine Exercise Name LEs 90/90 pt press into extension- individual Side bilateral Resistance AAROM- therapist supported Reps/Minutes x5 reps each LE Comments R poor - small partial range gravity elim, LLE trace calf/ 1st MTP flex/PF DF stretch Supine Exercise Name calf stretch Side bilateral Reps/Minutes 2 min Comments post chain stretch as well felt Adductor Stretch Supine Exercise Name butterfly stretch Resistance PROM tolerant range Equipment Used manual, breathwork Hip Flexor Stretch Supine Exercise Name Hip Flexor Stretch (LE extension) Side bilateral Resistance facilitation thru diaphram & lat chest-pt taught to self do Equipment Used improved decrease tone w/ breathwork Reps/Minutes 5 min Comments putting hip and knee into increased extension with over press ant thigh Hamstring Stretch Supine Exercise Name HS stretch Side bilateral Reps/Minutes 30 Comments Use wedge d/t excessive kyphosis Knee to Chest Supine Exercise Name Single KtC Side bilateral Equipment Used manual Reps/Minutes 30 Comments Use wedge + 3 pillowsd/t excessive kyphosis Sitting Exercises sit backs Sitting Exercise Name to PT hand-gradual inc distance Side bilateral Comments self sit backs and resisted push backs Therapeutic Activity Therapeutic Activity Seated Stabilization Name Reaching for target seated EOB outside COG PT-OP-T Assessment and Plan Start: 03/08/22 17:00 Freq: Status: Active Protocol: Document 08/28/22 13:48 DCW (Rec: 08/28/22 14:32 DCW [id number]) Physical Therapy Assessment Impairments Impairments Activity Tolerance,Balance, Coordination,Functional Activities,Functional Mobility ,Gait,Integument,Sensation, Soft Tissue Mobility,Strength, Tone,Transfers Goals Three Impairment Pt does not have any motor function throughout bilateral LEs Short Term Goal (STG) Pt to demonstrate 1/5 trace motor contraction in at least one quad in order to begin focus on LE mobility if neural functional return begins. STG Duration Met Prison Goal (LTG) Pt to demonstrate right quad strength to at least 2/5, demonstrating movement into ROM in an antigravity position LTG Duration 11/19/22 Two Impairment Pt struggles to perform slideboard car transfer due to upward tilt Prison Goal (LTG) Pt to demonstrate car transfer SBA using slideboard. 07/30/22: progressing: provides support for trunk stability while pt completes transfer self using slidboard and use over head doorframe handles and car door. has to place/remove slide board. Mod A uphill onto biodex, CG/ MIn A descend off biodex use slideboard. LTG Duration 11/19/22 progressing, requires assistance One Impairment Pt does not have an appropriate home exercise program Short Term Goal (STG) Pt to be independent and compliant with an appropriate HEP 07/30/22: progressing: resisted tricep ext, OH raises in w/c, supine HABD, added scaption OH B #2. STG Duration 11/19/22 Progressing Progress Towards Goals Progress Towards Goals Slow Progress due to Medical Issues Assessment Summary Assessment Pt continues to show increased motor control with light push in hip extension, as well as improved ability to purposely relax some muscle groups. Physical Therapy Plan Frequency and Duration Frequency of Treatment 2x/Week Plan of Care Start Date 08/21/22 Plan of Care End Date 11/19/22 Therapeutic Interventions Therapeutic Interventions Aquatic Therapy,Balance Training,Coordination Training ,Gait Training,Home Exercise Program,Manual Therapy, Neuromuscular Re-education, Orthotic/Prosthetic Management ,Patient/Caregiver Education, Self-Care/Home Management, Sensory Integration,Soft Tissue Mobilization, Therapeutic Activities, Therapeutic Exercises, Wheelchair Management Next Visit Focus/Plan Next Note Type Treatment Note Next Visit Plan Manual stretching, quadruped stretching, prone over pillows . POC: Continue UE and core strengthening, LE PROM. Transfers, mobility, LE ROM *POCKET STITCHER suggested: Consider sit to stander in future when has better TA and hip abd/add control.
--- NOTE | 2022-09-02 09:47 | PT.OTN ---
Current Diagnoses Paraplegia, unspecified (09/02/22) Other specified personal risk factors, not elsewhere classified (09/02/22) Other specified postprocedural states (09/02/22) Physical Therapy Treatment Note PT-OP-A Visit Information Start: 03/08/22 17:00 Freq: Status: Active Protocol: Document 09/02/22 09:09 SP (Rec: 09/02/22 09:50 SP [id number]) Out-Patient Physical Therapy Visit Information Visit Information Visit Type Treatment Note Visit Note SPTA Mary assisted w/ manual stretching and ther ex under direct supervision and instruction of [employer] Philomena throughout tx Visit Start Time 09:03 Visit Stop Time 09:47 Total Visit Minutes 44 Visit Number 40 Number of ASSEMBLER RADIO AND ELECTRICAL Visits 1 Evaluation Information Evaluation Date 03/08/22 PT-OP-B Current Condition Start: 03/08/22 17:00 Freq: Status: Active Protocol: Document 03/08/22 11:15 DCW (Rec: 03/08/22 17:11 DCW [id number]) Current Condition History of Current Condition Onset Date 12/16/21 Current Complaints Paraplegia History of Current Condition Pt is a 71 year old male with a very unfortunate medical history. Pt was hiking [email or web address] on 12/16/21 with a friend, finished up, drive back to his friend's home to drop him off, and noticed his left leg was collapsing. By the time pt drove home, both legs were giving out and numb. Pt was suddenly paralized from the waist down, was taken to the ED, and was flown to [facility] on 12/17/21. The following day, he underwent a laminectomy to relieve pressure from the thoracic epidural hematoma which had developed following his hike, which was pressing on his spinal cord. Following surgery , pt was in recovery for a week and was then transfered to rehab for 20 days, when he was finally discharged home in a wheelchair on 01/19/22. Pt reports his surgeon informed him that it is a possibility that he gets some return of nerve function. Has experienced some changes in his right LE, but has no motor function at this time from ~ T10 down. Minimal sensory return on right side, none on left. Pt has been anxious to get in to therapy and do everything he can to help return to function. Pt's , who attended his evaluation, notes that she has been doing a lot of PROM in his legs at night to keep everything moving. Pt can feel some stretching during PROM in his right leg. Pt has additionally already started occupational therapy, and has been practicing some seated stabilization. Pt transfers with a slide board, but notes it is difficult to do into his car, because he has to transfer upward at an incline. Treatment Goals Patient/Caregiver Goals I will do anything possible to get out of this wheelchair. My neurologist told me he has seen people recover from this , so I am not giving up hope. PT-OP-C Subjective Start: 03/08/22 17:00 Freq: Status: Active Protocol: Document 09/02/22 09:09 SP (Rec: 09/02/22 09:50 SP [id number]) OP-PT Subjective Patient Comments Patient Comments nothing to report, captain. Same old. PT-OP-G Mobility & Gait Start: 03/08/22 17:00 Freq: Status: Active Protocol: Document 08/21/22 15:15 DCW (Rec: 08/21/22 15:38 DCW [id number]) OP Mobility Evaluation Transfers Bed to Chair Transfers Transfers using UE Wheelchair Management Type of Wheelchair Manual w/c PT-OP-H Neuro Start: 03/08/22 17:00 Freq: Status: Active Protocol: Document 08/21/22 15:15 DCW (Rec: 08/21/22 15:38 DCW [id number]) Sensation Evaluation Gross Sensation Gross Sensation Left LE Impaired,Right LE Impaired,Trunk Impaired Sensation Description Paresthesia,Numbness,Tingling, Pins & [place],Burning Dermatome Impairments L1,L2,L3,L4,L5,S1,S2,S3,S4-5 Location Details Right Leg Light Touch Impaired Sharp/Dull Impaired Deep Pressure Impaired Hot/Cold Absent Protective Sensation Absent Proprioception (Position) Impaired Kinesthesia (Movement) Impaired Two-Point Discrimination Absent Tactile Localization Impaired Stereognosis Impaired Left Leg Light Touch Absent Sharp/Dull Absent Deep Pressure Impaired Hot/Cold Absent Protective Sensation Absent Proprioception (Position) Absent Kinesthesia (Movement) Impaired Two-Point Discrimination Absent Tactile Localization Absent Stereognosis Absent Deep Tendon Reflex & Clonus Assessment Deep Tendon Reflex Right Achilles Deep Tendon Reflex 1+ Diminished Right Patellar Deep Tendon Reflex 2+ Normal Left Achilles Deep Tendon Reflex 1+ Diminished Left Patellar Deep Tendon Reflex 0 Absent Muscle Tone Tone Assessment Right Lower Extremity Flexor Tone Description Moderate Hypertonicity Extensor Tone Description Moderate Hypertonicity Left Lower Extremity Flexor Tone Description Moderate Hypertonicity Extensor Tone Description Moderate Hypertonicity PT-OP-J Posture/Palpation/Skin Start: 03/08/22 17:00 Freq: Status: Active Protocol: Document 08/21/22 15:15 DCW (Rec: 08/21/22 15:38 DCW [id number]) Posture Evaluation Comments Posture Comments Significant improvement with core control, able to resist moderate sternal push and self -correct back to sitting position with no LOB. PT-OP-M Strength Start: 08/21/22 15:38 Freq: Status: Active Protocol: Document 08/21/22 15:15 DCW (Rec: 08/21/22 15:40 DCW [id number]) Hip Strength Hip Manual Muscle Testing Right Extension (S1) 2- Poor- Adduction 2- Poor- Left Extension (S1) 1 Trace Adduction 0 Zero Knee Strength Knee Manual Muscle Testing Right Flexion (S2) 1 Trace Extension (L3) 1 Trace Left Flexion (S2) 1 Trace Extension (L3) 0 Zero PT-OP-Q Treatments Start: 03/08/22 17:00 Freq: Status: Active Protocol: Document 09/02/22 09:09 SP (Rec: 09/02/22 09:50 SP [id number]) Cardio Equipment Recumbent Elliptical (Biodex) Duration (Minutes) 10 Resistance 5 Seat Position 7-12 Other w/c<->Biodex SBT using UEs, gait belt, Min Ax1 Therapeutic Exercises Supine Exercises Hip Flexor Stretch Supine Exercise Name Hip Flexor Stretch (LE extension) Side bilateral Resistance facilitation thru diaphram & lat chest-pt taught to self do Equipment Used improved decrease tone w/ breathwork Reps/Minutes 5 min Comments putting hip and knee into increased extension with over press ant thigh Knee to Chest Supine Exercise Name Single KtC Side bilateral Equipment Used manual Reps/Minutes 30 Comments Use wedge + 3 pillowsd/t excessive kyphosis Other Exercises quadruped child's pose Other Exercise Name quadruped child's pose Reps/Minutes 5 min Comments cued reach UEs out front quadruped Other Exercise Name rock f/b/lat therapist CG, pt self heavy support BUEs Reps/Minutes x5 reps Comments good glut and ES stretching Therapeutic Activity Therapeutic Activity supine>prone>quadruped Name Mod/Max A x1 into quadruped, heavy pt BUE support Reps/Minutes x1 Comments upper trunk support to allow UEs to get under trunk and good UE lift into quadruped then only CGA cues for chest lift serratus press support, placed 55cm Tball under abdomen, able rocking f/b 15- 25%A for pelvis support/lower abdoment controlled mov't, cues glut fac into hip extension support control/ heavy UE support on pt self. Slide Board Transfer Name To and from Biodex () Reps/Minutes 2 Comments CGA-Min A for trunk support but blocking knees as biodex uphill to wc Neuro Re-Education Treatment Balance Activities balloon volleyball Details SPTA provided SBA, [employer] baloon volley Equipment black mat table, balloon, gait belt Reps/Duration 8 min Comments 1. seated Edge of black mat table, feet on floor, SBA 2. free sitting, self wt shift outside KIARA reach B no LOB. PT-OP-T Assessment and Plan Start: 03/08/22 17:00 Freq: Status: Active Protocol: Document 09/02/22 09:09 SP (Rec: 09/02/22 09:50 SP [id number]) Physical Therapy Assessment Goals Three Impairment Pt does not have any motor function throughout bilateral LEs Short Term Goal (STG) Pt to demonstrate 1/5 trace motor contraction in at least one quad in order to begin focus on LE mobility if neural functional return begins. STG Duration Met Pst Specialist Goal (LTG) Pt to demonstrate right quad strength to at least 2/5, demonstrating movement into ROM in an antigravity position LTG Duration 11/19/22 Two Impairment Pt struggles to perform slideboard car transfer due to upward tilt Shelter Goal (LTG) Pt to demonstrate car transfer SBA using slideboard. 07/30/22: progressing: provides support for trunk stability while pt completes transfer self using slidboard and use over head doorframe handles and car door. has to place/remove slide board. Mod A uphill onto biodex, CG/ MIn A descend off biodex use slideboard. LTG Duration 11/19/22 progressing, requires assistance One Impairment Pt does not have an appropriate home exercise program Short Term Goal (STG) Pt to be independent and compliant with an appropriate HEP 07/30/22: progressing: resisted tricep ext, OH raises in w/c, supine HABD, added scaption OH B #2. STG Duration 11/19/22 Progressing Assessment Summary Assessment Pt improved self seated stability reactions reaching outside KIARA during balloon activities SBA, couple LOB but use of UEs for corrections. Good feedback stretching during quaduped to LB, glut, able to perform quadruped rocking f/b and contact/verbal cued facilitation for pelvis lateral shift vs wt shift laterally between BUEs/BLEs, improved stability CGA and manual Max A support to assist into LE WBOS this tx. Physical Therapy Plan Frequency and Duration Frequency of Treatment 2x/Week Plan of Care Start Date 08/21/22 Plan of Care End Date 11/19/22 Therapeutic Interventions Therapeutic Interventions Aquatic Therapy,Balance Training,Coordination Training ,Gait Training,Home Exercise Program,Manual Therapy, Neuromuscular Re-education, Orthotic/Prosthetic Management ,Patient/Caregiver Education, Self-Care/Home Management, Sensory Integration,Soft Tissue Mobilization, Therapeutic Activities, Therapeutic Exercises, Wheelchair Management Next Visit Focus/Plan Next Note Type Treatment Note Next Visit Plan Continue quadruped wt shifts, seated balance activities. POC: Continue UE and core strengthening, LE PROM and manual stretching. Transfers, mobility, LE ROM *[employer] suggested: Consider sit to stander in future when has better TA and hip abd/add control.
--- NOTE | 2022-09-04 11:15 | PT.OTN ---
Current Diagnoses Paraplegia, unspecified (09/04/22) Other specified personal risk factors, not elsewhere classified (09/04/22) Other specified postprocedural states (09/04/22) Physical Therapy Treatment Note PT-OP-A Visit Information Start: 03/08/22 17:00 Freq: Status: Active Protocol: Document 09/04/22 10:44 SP (Rec: 09/04/22 11:27 SP [id number]) Out-Patient Physical Therapy Visit Information Visit Information Visit Type Treatment Note Visit Note 06/21 after PN Visit Start Time 10:36 Visit Stop Time 11:15 Total Visit Minutes 39 Visit Number 41 Number of FOOD SCIENCE TECHNICIAN Visits 2 Evaluation Information Evaluation Date 03/08/22 PT-OP-B Current Condition Start: 03/08/22 17:00 Freq: Status: Active Protocol: Document 03/08/22 11:15 DCW (Rec: 03/08/22 17:11 DCW [id number]) Current Condition History of Current Condition Onset Date 12/16/21 Current Complaints Paraplegia History of Current Condition Pt is a 71 year old male with a very unfortunate medical history. Pt was hiking [employer] on 12/16/21 with a friend, finished up, drive back to his friend's home to drop him off, and noticed his left leg was collapsing. By the time pt drove home, both legs were giving out and numb. Pt was suddenly paralized from the waist down, was taken to the ED, and was flown to [facility] on 12/17/21. The following day, he underwent a laminectomy to relieve pressure from the thoracic epidural hematoma which had developed following his hike, which was pressing on his spinal cord. Following surgery , pt was in recovery for a week and was then transfered to rehab for 20 days, when he was finally discharged home in a wheelchair on 01/19/22. Pt reports his surgeon informed him that it is a possibility that he gets some return of nerve function. Has experienced some changes in his right LE, but has no motor function at this time from ~ T10 down. Minimal sensory return on right side, none on left. Pt has been anxious to get in to therapy and do everything he can to help return to function. Pt's , who attended his evaluation, notes that she has been doing a lot of PROM in his legs at night to keep everything moving. Pt can feel some stretching during PROM in his right leg. Pt has additionally already started occupational therapy, and has been practicing some seated stabilization. Pt transfers with a slide board, but notes it is difficult to do into his car, because he has to transfer upward at an incline. Treatment Goals Patient/Caregiver Goals I will do anything possible to get out of this wheelchair. My neurologist told me he has seen people recover from this , so I am not giving up hope. PT-OP-C Subjective Start: 03/08/22 17:00 Freq: Status: Active Protocol: Document 09/04/22 10:44 SP (Rec: 09/04/22 11:27 SP [id number]) OP-PT Subjective Patient Comments Patient Comments Pt reports pretty tight today . PT-OP-G Mobility & Gait Start: 03/08/22 17:00 Freq: Status: Active Protocol: Document 08/21/22 15:15 DCW (Rec: 08/21/22 15:38 DCW [id number]) OP Mobility Evaluation Transfers Bed to Chair Transfers Transfers using UE Wheelchair Management Type of Wheelchair Manual w/c PT-OP-H Neuro Start: 03/08/22 17:00 Freq: Status: Active Protocol: Document 08/21/22 15:15 DCW (Rec: 08/21/22 15:38 DCW [id number]) Sensation Evaluation Gross Sensation Gross Sensation Left LE Impaired,Right LE Impaired,Trunk Impaired Sensation Description Paresthesia,Numbness,Tingling, Pins & [place],Burning Dermatome Impairments L1,L2,L3,L4,L5,S1,S2,S3,S4-5 Location Details Right Leg Light Touch Impaired Sharp/Dull Impaired Deep Pressure Impaired Hot/Cold Absent Protective Sensation Absent Proprioception (Position) Impaired Kinesthesia (Movement) Impaired Two-Point Discrimination Absent Tactile Localization Impaired Stereognosis Impaired Left Leg Light Touch Absent Sharp/Dull Absent Deep Pressure Impaired Hot/Cold Absent Protective Sensation Absent Proprioception (Position) Absent Kinesthesia (Movement) Impaired Two-Point Discrimination Absent Tactile Localization Absent Stereognosis Absent Deep Tendon Reflex & Clonus Assessment Deep Tendon Reflex Right Achilles Deep Tendon Reflex 1+ Diminished Right Patellar Deep Tendon Reflex 2+ Normal Left Achilles Deep Tendon Reflex 1+ Diminished Left Patellar Deep Tendon Reflex 0 Absent Muscle Tone Tone Assessment Right Lower Extremity Flexor Tone Description Moderate Hypertonicity Extensor Tone Description Moderate Hypertonicity Left Lower Extremity Flexor Tone Description Moderate Hypertonicity Extensor Tone Description Moderate Hypertonicity PT-OP-J Posture/Palpation/Skin Start: 03/08/22 17:00 Freq: Status: Active Protocol: Document 08/21/22 15:15 DCW (Rec: 08/21/22 15:38 DCW [id number]) Posture Evaluation Comments Posture Comments Significant improvement with core control, able to resist moderate sternal push and self -correct back to sitting position with no LOB. PT-OP-M Strength Start: 08/21/22 15:38 Freq: Status: Active Protocol: Document 08/21/22 15:15 DCW (Rec: 08/21/22 15:40 DCW [id number]) Hip Strength Hip Manual Muscle Testing Right Extension (S1) 2- Poor- Adduction 2- Poor- Left Extension (S1) 1 Trace Adduction 0 Zero Knee Strength Knee Manual Muscle Testing Right Flexion (S2) 1 Trace Extension (L3) 1 Trace Left Flexion (S2) 1 Trace Extension (L3) 0 Zero PT-OP-Q Treatments Start: 03/08/22 17:00 Freq: Status: Active Protocol: Document 09/04/22 10:44 SP (Rec: 09/04/22 11:27 SP [id number]) Cardio Equipment Recumbent Elliptical (Biodex) Duration (Minutes) 10 Resistance 5 Seat Position 10 2 min>8 2 min>9 3 min> 10 2 min>11 1 min Other w/c<->Biodex SBT using UEs, gait belt, Min Ax1 Therapeutic Exercises Supine Exercises resisted HABD Side bilateral Resistance TB #3 Equipment Used small blue foam roll behind knees Reps/Minutes x20 reps Comments cued slow movement with breath to allow LE ext Adductor Stretch Supine Exercise Name FIg 4 individual Resistance PROM tolerant range Equipment Used manual Comments cue breath work Hip Flexor Stretch Supine Exercise Name Hip Flexor Stretch (LE extension) Side bilateral Resistance facilitation thru diaphram & lat chest-pt taught to self do Equipment Used improved decrease tone w/ breathwork Reps/Minutes 5 min Comments putting hip and knee into increased extension with over press ant thigh Hamstring Stretch Supine Exercise Name HS stretch Side bilateral Equipment Used wedge and 4 pillows under TS/ head DT excess kyphosis Reps/Minutes 30 Comments cued breath allow relax musculature Knee to Chest Supine Exercise Name Single KtC Side bilateral Equipment Used manual Reps/Minutes 30 Comments Use wedge + 3 pillowsd/t excessive kyphosis Therapeutic Activity Therapeutic Activity tall kneel Name 8 box, blue foam roller under ankles Reps/Minutes held 2 min (SBA PT Aide assist box mgt) Comments Min A, good hip and trunk ext, 12 box next tx. supine>prone>quadruped Name Mod into quadruped/ Min quad to SL, heavy pt BUE support Reps/Minutes x1 Comments upper trunk support to allow UEs to get under trunk and good UE lift into quadruped then only CGA cues for chest lift serratus press support, placed 55cm Tball under abdomen, able rocking f/b 15- 25%A for pelvis support/lower abdoment controlled mov't, cues glut fac into hip extension support control/ heavy UE support on pt self. Slide Board Transfer Name To and from Biodex (wc)- SBT Reps/Minutes 2 Comments Min A for trunk support but blocking knees as biodex uphill to wc PT-OP-T Assessment and Plan Start: 03/08/22 17:00 Freq: Status: Active Protocol: Document 09/04/22 10:44 SP (Rec: 09/04/22 11:27 SP [id number]) Physical Therapy Assessment Goals Three Impairment Pt does not have any motor function throughout bilateral LEs Short Term Goal (STG) Pt to demonstrate 1/5 trace motor contraction in at least one quad in order to begin focus on LE mobility if neural functional return begins. STG Duration Met Mcfp Goal (LTG) Pt to demonstrate right quad strength to at least 2/5, demonstrating movement into ROM in an antigravity position LTG Duration 11/19/22 Two Impairment Pt struggles to perform slideboard car transfer due to upward tilt Commissioner [employer] Goal (LTG) Pt to demonstrate car transfer SBA using slideboard. 07/30/22: progressing: provides support for trunk stability while pt completes transfer self using slidboard and use over head doorframe handles and car door. has to place/remove slide board. Mod A uphill onto biodex, CG/ MIn A descend off biodex use slideboard. LTG Duration 11/19/22 progressing, requires assistance One Impairment Pt does not have an appropriate home exercise program Short Term Goal (STG) Pt to be independent and compliant with an appropriate HEP 3/21/23: progressing: resisted tricep ext, OH raises in w/c, supine HABD, added scaption OH B #2. STG Duration 11/19/22 Progressing Assessment Summary Assessment Pt improved quadruped close SBA wt shift f/b rocking. Able to come to modified tall kneel w/ 8 box Min A for stab and pelvis under trunk. Physical Therapy Plan Frequency and Duration Frequency of Treatment 2x/Week Plan of Care Start Date 08/21/22 Plan of Care End Date 11/19/22 Therapeutic Interventions Therapeutic Interventions Aquatic Therapy,Balance Training,Coordination Training ,Gait Training,Home Exercise Program,Manual Therapy, Neuromuscular Re-education, Orthotic/Prosthetic Management ,Patient/Caregiver Education, Self-Care/Home Management, Sensory Integration,Soft Tissue Mobilization, Therapeutic Activities, Therapeutic Exercises, Wheelchair Management Next Visit Focus/Plan Next Note Type Treatment Note Next Visit Plan Continue quadruped, tall knee, seated balance activities. POC: Continue UE and core strengthening, LE PROM and manual stretching. Transfers, mobility, LE ROM *FOOD SCIENCE TECHNICIAN suggested: Consider sit to stander in future when has better TA and hip abd/add control.
--- NOTE | 2022-09-09 12:47 | PT.OTN ---
Current Diagnoses Paraplegia, unspecified (09/09/22) Other specified personal risk factors, not elsewhere classified (09/09/22) Other specified postprocedural states (09/09/22) Physical Therapy Treatment Note PT-OP-A Visit Information Start: 03/08/22 17:00 Freq: Status: Active Protocol: Document 09/09/22 12:03 DCW (Rec: 09/09/22 12:47 DCW [id number]) Out-Patient Physical Therapy Visit Information Visit Information Visit Type Treatment Note Visit Note 08/19 after PN Visit Start Time 12:03 Visit Stop Time 12:45 Total Visit Minutes 42 Visit Number 42 Number of HOLLOW HANDLE BENCH WORKER Visits 0 Evaluation Information Evaluation Date 03/08/22 PT-OP-B Current Condition Start: 03/08/22 17:00 Freq: Status: Active Protocol: Document 03/08/22 11:15 DCW (Rec: 03/08/22 17:11 DCW [id number]) Current Condition History of Current Condition Onset Date 12/16/21 Current Complaints Paraplegia History of Current Condition Pt is a 71 year old male with a very unfortunate medical history. Pt was hiking [employer] on 12/16/21 with a friend, finished up, drive back to his friend's home to drop him off, and noticed his left leg was collapsing. By the time pt drove home, both legs were giving out and numb. Pt was suddenly paralized from the waist down, was taken to the ED, and was flown to [facility] on 12/17/21. The following day, he underwent a laminectomy to relieve pressure from the thoracic epidural hematoma which had developed following his hike, which was pressing on his spinal cord. Following surgery , pt was in recovery for a week and was then transfered to rehab for 20 days, when he was finally discharged home in a wheelchair on 01/19/22. Pt reports his surgeon informed him that it is a possibility that he gets some return of nerve function. Has experienced some changes in his right LE, but has no motor function at this time from ~ T10 down. Minimal sensory return on right side, none on left. Pt has been anxious to get in to therapy and do everything he can to help return to function. Pt's , who attended his evaluation, notes that she has been doing a lot of PROM in his legs at night to keep everything moving. Pt can feel some stretching during PROM in his right leg. Pt has additionally already started occupational therapy, and has been practicing some seated stabilization. Pt transfers with a slide board, but notes it is difficult to do into his car, because he has to transfer upward at an incline. Treatment Goals Patient/Caregiver Goals I will do anything possible to get out of this wheelchair. My neurologist told me he has seen people recover from this , so I am not giving up hope. PT-OP-C Subjective Start: 03/08/22 17:00 Freq: Status: Active Protocol: Document 09/09/22 12:03 DCW (Rec: 09/09/22 12:47 DCW [id number]) OP-PT Subjective Patient Comments Patient Comments I'm getting more and more tingling in this right leg. PT-OP-G Mobility & Gait Start: 03/08/22 17:00 Freq: Status: Active Protocol: Document 08/21/22 15:15 DCW (Rec: 08/21/22 15:38 DCW [id number]) OP Mobility Evaluation Transfers Bed to Chair Transfers Transfers using UE Wheelchair Management Type of Wheelchair Manual w/c PT-OP-H Neuro Start: 03/08/22 17:00 Freq: Status: Active Protocol: Document 08/21/22 15:15 DCW (Rec: 08/21/22 15:38 DCW [id number]) Sensation Evaluation Gross Sensation Gross Sensation Left LE Impaired,Right LE Impaired,Trunk Impaired Sensation Description Paresthesia,Numbness,Tingling, Pins & [place],Burning Dermatome Impairments L1,L2,L3,L4,L5,S1,S2,S3,S4-5 Location Details Right Leg Light Touch Impaired Sharp/Dull Impaired Deep Pressure Impaired Hot/Cold Absent Protective Sensation Absent Proprioception (Position) Impaired Kinesthesia (Movement) Impaired Two-Point Discrimination Absent Tactile Localization Impaired Stereognosis Impaired Left Leg Light Touch Absent Sharp/Dull Absent Deep Pressure Impaired Hot/Cold Absent Protective Sensation Absent Proprioception (Position) Absent Kinesthesia (Movement) Impaired Two-Point Discrimination Absent Tactile Localization Absent Stereognosis Absent Deep Tendon Reflex & Clonus Assessment Deep Tendon Reflex Right Achilles Deep Tendon Reflex 1+ Diminished Right Patellar Deep Tendon Reflex 2+ Normal Left Achilles Deep Tendon Reflex 1+ Diminished Left Patellar Deep Tendon Reflex 0 Absent Muscle Tone Tone Assessment Right Lower Extremity Flexor Tone Description Moderate Hypertonicity Extensor Tone Description Moderate Hypertonicity Left Lower Extremity Flexor Tone Description Moderate Hypertonicity Extensor Tone Description Moderate Hypertonicity PT-OP-J Posture/Palpation/Skin Start: 03/08/22 17:00 Freq: Status: Active Protocol: Document 08/21/22 15:15 DCW (Rec: 08/21/22 15:38 DCW [id number]) Posture Evaluation Comments Posture Comments Significant improvement with core control, able to resist moderate sternal push and self -correct back to sitting position with no LOB. PT-OP-M Strength Start: 08/21/22 15:38 Freq: Status: Active Protocol: Document 08/21/22 15:15 DCW (Rec: 08/21/22 15:40 DCW [id number]) Hip Strength Hip Manual Muscle Testing Right Extension (S1) 2- Poor- Adduction 2- Poor- Left Extension (S1) 1 Trace Adduction 0 Zero Knee Strength Knee Manual Muscle Testing Right Flexion (S2) 1 Trace Extension (L3) 1 Trace Left Flexion (S2) 1 Trace Extension (L3) 0 Zero PT-OP-Q Treatments Start: 03/08/22 17:00 Freq: Status: Active Protocol: Document 09/09/22 12:03 DCW (Rec: 09/09/22 12:47 DCW [id number]) Cardio Equipment Recumbent Elliptical (Biodex) Duration (Minutes) 10 Resistance 5 Seat Position 10 Other w/c<->Biodex SBT using UEs, gait belt, Min Ax1 Gym Equipment Shuttle Recovery Bilateral Squats Details with and without UE assist Resistance 12# Reps/Time very slight, minimal movement without UE assistance Therapeutic Exercises Other Exercises Approximation Other Exercise Name Hip approximation in quad, therapist overpressure through hips quadruped child's pose Other Exercise Name quadruped child's pose Reps/Minutes 5 min Comments cued reach UEs out front quadruped Other Exercise Name rock f/b/lat therapist CG, pt self heavy support BUEs Reps/Minutes x5 reps Comments good glut and ES stretching Therapeutic Activity Therapeutic Activity supine>prone>quadruped Name Mod into quadruped/ Min quad to SL, heavy pt BUE support Reps/Minutes x1 Comments upper trunk support to allow UEs to get under trunk and good UE lift into quadruped then only CGA cues for chest lift serratus press support, placed 55cm Tball under abdomen, able rocking f/b 15- 25%A for pelvis support/lower abdoment controlled mov't, cues glut fac into hip extension support control/ heavy UE support on pt self. Slide Board Transfer Name To and from Leg press(wc)- SBT Reps/Minutes 2 Comments Min A for trunk support but blocking knees as leg press uphill to wc PT-OP-T Assessment and Plan Start: 03/08/22 17:00 Freq: Status: Active Protocol: Document 09/09/22 12:03 DCW (Rec: 09/09/22 12:47 DCW [id number]) Physical Therapy Assessment Impairments Impairments Activity Tolerance,Balance, Coordination,Functional Activities,Functional Mobility ,Gait,Integument,Sensation, Soft Tissue Mobility,Strength, Tone,Transfers Goals Three Impairment Pt does not have any motor function throughout bilateral LEs Short Term Goal (STG) Pt to demonstrate 1/5 trace motor contraction in at least one quad in order to begin focus on LE mobility if neural functional return begins. STG Duration Met Glazier Helper Goal (LTG) Pt to demonstrate right quad strength to at least 2/5, demonstrating movement into ROM in an antigravity position LTG Duration 11/19/22 Two Impairment Pt struggles to perform slideboard car transfer due to upward tilt Glazier Helper Goal (LTG) Pt to demonstrate car transfer SBA using slideboard. 07/30/22: progressing: provides support for trunk stability while pt completes transfer self using slidboard and use over head doorframe handles and car door. has to place/remove slide board. Mod A uphill onto biodex, CG/ MIn A descend off biodex use slideboard. LTG Duration 11/19/22 progressing, requires assistance One Impairment Pt does not have an appropriate home exercise program Short Term Goal (STG) Pt to be independent and compliant with an appropriate HEP 07/30/22: progressing: resisted triceps ext, OH raises in w/c, supine HABD, added scaption OH B #2. STG Duration 11/19/22 Progressing Assessment Summary Assessment Trial of leg press today, pt able to make very slight movement with LEs only, but was able to complete full press with use of UEs to push on his thighs. Pt very happy with feel of pressure though his legs and hips. Physical Therapy Plan Frequency and Duration Frequency of Treatment 2x/Week Plan of Care Start Date 08/21/22 Plan of Care End Date 11/19/22 Therapeutic Interventions Therapeutic Interventions Aquatic Therapy,Balance Training,Coordination Training ,Gait Training,Home Exercise Program,Manual Therapy, Neuromuscular Re-education, Orthotic/Prosthetic Management ,Patient/Caregiver Education, Self-Care/Home Management, Sensory Integration,Soft Tissue Mobilization, Therapeutic Activities, Therapeutic Exercises, Wheelchair Management Next Visit Focus/Plan Next Note Type Treatment Note Next Visit Plan Continue quadruped, tall knee, seated balance activities. POC: Continue UE and core strengthening, LE PROM and manual stretching. Transfers, mobility, LE ROM *HOLLOW HANDLE BENCH WORKER suggested: Consider sit to stander in future when has better TA and hip abd/add control.
--- NOTE | 2022-09-11 11:47 | PT.OTN ---
Current Diagnoses Paraplegia, unspecified (09/11/22) Other specified personal risk factors, not elsewhere classified (09/11/22) Other specified postprocedural states (09/11/22) Physical Therapy Treatment Note PT-OP-A Visit Information Start: 03/08/22 17:00 Freq: Status: Active Protocol: Document 09/11/22 11:04 DCW (Rec: 09/11/22 11:47 DCW [id number]) Out-Patient Physical Therapy Visit Information Visit Information Visit Type Treatment Note Visit Note 09/18 after PN Visit Start Time 11:04 Visit Stop Time 11:45 Total Visit Minutes 41 Visit Number 43 Number of ASSOCIATE AGENT INSURANCE SALES Visits 0 Evaluation Information Evaluation Date 03/08/22 PT-OP-B Current Condition Start: 03/08/22 17:00 Freq: Status: Active Protocol: Document 03/08/22 11:15 DCW (Rec: 03/08/22 17:11 DCW [id number]) Current Condition History of Current Condition Onset Date 12/16/21 Current Complaints Paraplegia History of Current Condition Pt is a 71 year old male with a very unfortunate medical history. Pt was hiking [place] on 12/16/21 with a friend, finished up, drive back to his friend's home to drop him off, and noticed his left leg was collapsing. By the time pt drove home, both legs were giving out and numb. Pt was suddenly paralized from the waist down, was taken to the ED, and was flown to [facility] on 12/17/21. The following day, he underwent a laminectomy to relieve pressure from the thoracic epidural hematoma which had developed following his hike, which was pressing on his spinal cord. Following surgery , pt was in recovery for a week and was then transfered to rehab for 20 days, when he was finally discharged home in a wheelchair on 01/19/22. Pt reports his surgeon informed him that it is a possibility that he gets some return of nerve function. Has experienced some changes in his right LE, but has no motor function at this time from ~ T10 down. Minimal sensory return on right side, none on left. Pt has been anxious to get in to therapy and do everything he can to help return to function. Pt's , who attended his evaluation, notes that she has been doing a lot of PROM in his legs at night to keep everything moving. Pt can feel some stretching during PROM in his right leg. Pt has additionally already started occupational therapy, and has been practicing some seated stabilization. Pt transfers with a slide board, but notes it is difficult to do into his car, because he has to transfer upward at an incline. Treatment Goals Patient/Caregiver Goals I will do anything possible to get out of this wheelchair. My neurologist told me he has seen people recover from this , so I am not giving up hope. PT-OP-C Subjective Start: 03/08/22 17:00 Freq: Status: Active Protocol: Document 09/11/22 11:04 DCW (Rec: 09/11/22 11:47 DCW [id number]) OP-PT Subjective Patient Comments Patient Comments This whole right side is just always doing something now days. Last night my right buttock was really spasming like crazy. PT-OP-G Mobility & Gait Start: 03/08/22 17:00 Freq: Status: Active Protocol: Document 08/21/22 15:15 DCW (Rec: 08/21/22 15:38 DCW [id number]) OP Mobility Evaluation Transfers Bed to Chair Transfers Transfers using UE Wheelchair Management Type of Wheelchair Manual w/c PT-OP-H Neuro Start: 03/08/22 17:00 Freq: Status: Active Protocol: Document 08/21/22 15:15 DCW (Rec: 08/21/22 15:38 DCW [id number]) Sensation Evaluation Gross Sensation Gross Sensation Left LE Impaired,Right LE Impaired,Trunk Impaired Sensation Description Paresthesia,Numbness,Tingling, Pins & [place],Burning Dermatome Impairments L1,L2,L3,L4,L5,S1,S2,S3,S4-5 Location Details Right Leg Light Touch Impaired Sharp/Dull Impaired Deep Pressure Impaired Hot/Cold Absent Protective Sensation Absent Proprioception (Position) Impaired Kinesthesia (Movement) Impaired Two-Point Discrimination Absent Tactile Localization Impaired Stereognosis Impaired Left Leg Light Touch Absent Sharp/Dull Absent Deep Pressure Impaired Hot/Cold Absent Protective Sensation Absent Proprioception (Position) Absent Kinesthesia (Movement) Impaired Two-Point Discrimination Absent Tactile Localization Absent Stereognosis Absent Deep Tendon Reflex & Clonus Assessment Deep Tendon Reflex Right Achilles Deep Tendon Reflex 1+ Diminished Right Patellar Deep Tendon Reflex 2+ Normal Left Achilles Deep Tendon Reflex 1+ Diminished Left Patellar Deep Tendon Reflex 0 Absent Muscle Tone Tone Assessment Right Lower Extremity Flexor Tone Description Moderate Hypertonicity Extensor Tone Description Moderate Hypertonicity Left Lower Extremity Flexor Tone Description Moderate Hypertonicity Extensor Tone Description Moderate Hypertonicity PT-OP-J Posture/Palpation/Skin Start: 03/08/22 17:00 Freq: Status: Active Protocol: Document 08/21/22 15:15 DCW (Rec: 08/21/22 15:38 DCW [id number]) Posture Evaluation Comments Posture Comments Significant improvement with core control, able to resist moderate sternal push and self -correct back to sitting position with no LOB. PT-OP-M Strength Start: 08/21/22 15:38 Freq: Status: Active Protocol: Document 08/21/22 15:15 DCW (Rec: 08/21/22 15:40 DCW [id number]) Hip Strength Hip Manual Muscle Testing Right Extension (S1) 2- Poor- Adduction 2- Poor- Left Extension (S1) 1 Trace Adduction 0 Zero Knee Strength Knee Manual Muscle Testing Right Flexion (S2) 1 Trace Extension (L3) 1 Trace Left Flexion (S2) 1 Trace Extension (L3) 0 Zero PT-OP-Q Treatments Start: 03/08/22 17:00 Freq: Status: Active Protocol: Document 09/11/22 11:04 DCW (Rec: 09/11/22 11:47 DCW [id number]) Cardio Equipment Recumbent Elliptical (Biodex) Duration (Minutes) 10 Resistance 5 Seat Position 10 Other w/c<->Biodex SBT using UEs, gait belt, Min Ax1 Gym Equipment Shuttle Recovery Bilateral Squats Details with and without UE assist Resistance 12# Reps/Time very slight, minimal movement without UE assistance Therapeutic Exercises Sitting Exercises sit backs Sitting Exercise Name to PT hand-gradual inc distance Side bilateral Comments self sit backs and resisted push backs Therapeutic Activity Therapeutic Activity Seated Stabilization Name Reaching for target seated EOB outside COG Slide Board Transfer Name To and from Leg press(wc)- SBT Reps/Minutes 2 Comments Min A for trunk support but blocking knees as leg press uphill to wc PT-OP-T Assessment and Plan Start: 03/08/22 17:00 Freq: Status: Active Protocol: Document 09/11/22 11:04 DCW (Rec: 09/11/22 11:47 DCW [id number]) Physical Therapy Assessment Impairments Impairments Activity Tolerance,Balance, Coordination,Functional Activities,Functional Mobility ,Gait,Integument,Sensation, Soft Tissue Mobility,Strength, Tone,Transfers Goals Three Impairment Pt does not have any motor function throughout bilateral LEs Short Term Goal (STG) Pt to demonstrate 1/5 trace motor contraction in at least one quad in order to begin focus on LE mobility if neural functional return begins. STG Duration Met Clerical Office Goal (LTG) Pt to demonstrate right quad strength to at least 2/5, demonstrating movement into ROM in an antigravity position LTG Duration 11/19/22 Two Impairment Pt struggles to perform slideboard car transfer due to upward tilt Clerical Office Goal (LTG) Pt to demonstrate car transfer SBA using slideboard. 07/30/22: progressing: provides support for trunk stability while pt completes transfer self using slidboard and use over head doorframe handles and car door. has to place/remove slide board. Mod A uphill onto biodex, CG/ MIn A descend off biodex use slideboard. LTG Duration 11/19/22 progressing, requires assistance One Impairment Pt does not have an appropriate home exercise program Short Term Goal (STG) Pt to be independent and compliant with an appropriate HEP 07/30/22: progressing: resisted tricep ext, OH raises in w/c, supine HABD, added scaption OH B #2. STG Duration 11/19/22 Progressing Assessment Summary Assessment Pt showing slight improvement with UE-free leg press, but still only able to display minimal push with LEs only. Did well with seated balance challenges, showing some improvement in resisting perturbations. Physical Therapy Plan Frequency and Duration Frequency of Treatment 2x/Week Plan of Care Start Date 08/21/22 Plan of Care End Date 11/19/22 Therapeutic Interventions Therapeutic Interventions Aquatic Therapy,Balance Training,Coordination Training ,Gait Training,Home Exercise Program,Manual Therapy, Neuromuscular Re-education, Orthotic/Prosthetic Management ,Patient/Caregiver Education, Self-Care/Home Management, Sensory Integration,Soft Tissue Mobilization, Therapeutic Activities, Therapeutic Exercises, Wheelchair Management Next Visit Focus/Plan Next Note Type Treatment Note Next Visit Plan Continue quadruped, tall knee, seated balance activities. POC: Continue UE and core strengthening, LE PROM and manual stretching. Transfers, mobility, LE ROM *ASSOCIATE AGENT INSURANCE SALES suggested: Consider sit to stander in future when has better TA and hip abd/add control.
--- NOTE | 2022-09-16 11:30 | PT.OTN ---
Current Diagnoses Paraplegia, unspecified (09/16/22) Other specified personal risk factors, not elsewhere classified (09/16/22) Other specified postprocedural states (09/16/22) Physical Therapy Treatment Note PT-OP-A Visit Information Start: 03/08/22 17:00 Freq: Status: Active Protocol: Document 09/16/22 10:50 SP (Rec: 09/16/22 11:39 SP [id number]) Out-Patient Physical Therapy Visit Information Visit Information Visit Type Treatment Note Visit Note 10/19 after PN SPTA Mary assisted pt and HOME PERFORMANCE LABORER with mobility tx while under direct supervision and instruction of HOME PERFORMANCE LABORER Gely. Visit Start Time 10:50 Visit Stop Time 11:30 Total Visit Minutes 40 Visit Number 44 Number of HOME PERFORMANCE LABORER Visits 1 Evaluation Information Evaluation Date 03/08/22 PT-OP-B Current Condition Start: 03/08/22 17:00 Freq: Status: Active Protocol: Document 03/08/22 11:15 DCW (Rec: 03/08/22 17:11 DCW [id number]) Current Condition History of Current Condition Onset Date 12/16/21 Current Complaints Paraplegia History of Current Condition Pt is a 71 year old male with a very unfortunate medical history. Pt was hiking [place] on 12/16/21 with a friend, finished up, drive back to his friend's home to drop him off, and noticed his left leg was collapsing. By the time pt drove home, both legs were giving out and numb. Pt was suddenly paralized from the waist down, was taken to the ED, and was flown to [facility] on 12/17/21. The following day, he underwent a laminectomy to relieve pressure from the thoracic epidural hematoma which had developed following his hike, which was pressing on his spinal cord. Following surgery , pt was in recovery for a week and was then transfered to rehab for 20 days, when he was finally discharged home in a wheelchair on 01/19/22. Pt reports his surgeon informed him that it is a possibility that he gets some return of nerve function. Has experienced some changes in his right LE, but has no motor function at this time from ~ T10 down. Minimal sensory return on right side, none on left. Pt has been anxious to get in to therapy and do everything he can to help return to function. Pt's , who attended his evaluation, notes that she has been doing a lot of PROM in his legs at night to keep everything moving. Pt can feel some stretching during PROM in his right leg. Pt has additionally already started occupational therapy, and has been practicing some seated stabilization. Pt transfers with a slide board, but notes it is difficult to do into his car, because he has to transfer upward at an incline. Treatment Goals Patient/Caregiver Goals I will do anything possible to get out of this wheelchair. My neurologist told me he has seen people recover from this , so I am not giving up hope. PT-OP-C Subjective Start: 03/08/22 17:00 Freq: Status: Active Protocol: Document 09/16/22 10:50 SP (Rec: 09/16/22 11:39 SP [id number]) OP-PT Subjective Patient Comments Patient Comments Pt stated like using the shuttle recovery last tx and wants to utilize today. PT-OP-G Mobility & Gait Start: 03/08/22 17:00 Freq: Status: Active Protocol: Document 08/21/22 15:15 DCW (Rec: 08/21/22 15:38 DCW [id number]) OP Mobility Evaluation Transfers Bed to Chair Transfers Transfers using UE Wheelchair Management Type of Wheelchair Manual w/c PT-OP-H Neuro Start: 03/08/22 17:00 Freq: Status: Active Protocol: Document 08/21/22 15:15 DCW (Rec: 08/21/22 15:38 DCW [id number]) Sensation Evaluation Gross Sensation Gross Sensation Left LE Impaired,Right LE Impaired,Trunk Impaired Sensation Description Paresthesia,Numbness,Tingling, Pins & [place],Burning Dermatome Impairments L1,L2,L3,L4,L5,S1,S2,S3,S4-5 Location Details Right Leg Light Touch Impaired Sharp/Dull Impaired Deep Pressure Impaired Hot/Cold Absent Protective Sensation Absent Proprioception (Position) Impaired Kinesthesia (Movement) Impaired Two-Point Discrimination Absent Tactile Localization Impaired Stereognosis Impaired Left Leg Light Touch Absent Sharp/Dull Absent Deep Pressure Impaired Hot/Cold Absent Protective Sensation Absent Proprioception (Position) Absent Kinesthesia (Movement) Impaired Two-Point Discrimination Absent Tactile Localization Absent Stereognosis Absent Deep Tendon Reflex & Clonus Assessment Deep Tendon Reflex Right Achilles Deep Tendon Reflex 1+ Diminished Right Patellar Deep Tendon Reflex 2+ Normal Left Achilles Deep Tendon Reflex 1+ Diminished Left Patellar Deep Tendon Reflex 0 Absent Muscle Tone Tone Assessment Right Lower Extremity Flexor Tone Description Moderate Hypertonicity Extensor Tone Description Moderate Hypertonicity Left Lower Extremity Flexor Tone Description Moderate Hypertonicity Extensor Tone Description Moderate Hypertonicity PT-OP-J Posture/Palpation/Skin Start: 03/08/22 17:00 Freq: Status: Active Protocol: Document 08/21/22 15:15 DCW (Rec: 08/21/22 15:38 DCW [id number]) Posture Evaluation Comments Posture Comments Significant improvement with core control, able to resist moderate sternal push and self -correct back to sitting position with no LOB. PT-OP-M Strength Start: 08/21/22 15:38 Freq: Status: Active Protocol: Document 08/21/22 15:15 DCW (Rec: 08/21/22 15:40 DCW [id number]) Hip Strength Hip Manual Muscle Testing Right Extension (S1) 2- Poor- Adduction 2- Poor- Left Extension (S1) 1 Trace Adduction 0 Zero Knee Strength Knee Manual Muscle Testing Right Flexion (S2) 1 Trace Extension (L3) 1 Trace Left Flexion (S2) 1 Trace Extension (L3) 0 Zero PT-OP-Q Treatments Start: 03/08/22 17:00 Freq: Status: Active Protocol: Document 09/16/22 10:50 SP (Rec: 09/16/22 11:39 SP [id number]) Cardio Equipment Recumbent Elliptical (Biodex) Duration (Minutes) 10 Resistance 5 Seat Position 7>8>9>10 Other w/c<->Biodex SBT using UEs, gait belt, Min/Mod Ax1 (SPTA Mary) Gym Equipment Shuttle Recovery Bilateral Squats Details Trace glut/quad engagement BLE , quad tapping, no slep movment Resistance 12# Reps/Time Therapist assist sled into extension Therapeutic Exercises Other Exercises quadruped child's pose Other Exercise Name quadruped child's pose Reps/Minutes 2 min Comments cued reach UEs out front quadruped Other Exercise Name rock f/b/lat therapist CG, pt self heavy support BUEs Reps/Minutes x5 reps Comments good glut and ES stretching Therapeutic Activity Therapeutic Activity tall kneel Name 12 box, blue foam roller under ankles Reps/Minutes 3 reps (SB/CGA, therapist assist box mgt) Comments Min A, good hip and trunk ext. up to 11 sec. Therapist feedback tapping glut, quad for extension facilitation Next tx WB into elbow. Slide Board Transfer Name To and from Leg press(wc)- SBT - biodex, shuttle recovery Reps/Minutes 4 Comments Min A for trunk support but blocking knees as leg press up hill to wc PT-OP-T Assessment and Plan Start: 03/08/22 17:00 Freq: Status: Active Protocol: Document 09/16/22 10:50 SP (Rec: 09/16/22 11:39 SP [id number]) Physical Therapy Assessment Goals Three Impairment Pt does not have any motor function throughout bilateral LEs Short Term Goal (STG) Pt to demonstrate 1/5 trace motor contraction in at least one quad in order to begin focus on LE mobility if neural functional return begins. STG Duration Met Prison Goal (LTG) Pt to demonstrate right quad strength to at least 2/5, demonstrating movement into ROM in an antigravity position LTG Duration 11/19/22 Two Impairment Pt struggles to perform slideboard car transfer due to upward tilt Manager Chemistry Goal (LTG) Pt to demonstrate car transfer SBA using slideboard. 07/30/22: progressing: provides support for trunk stability while pt completes transfer self using slidboard and use over head doorframe handles and car door. has to place/remove slide board. Mod A uphill onto biodex, CG/ MIn A descend off biodex use slideboard. LTG Duration 11/19/22 progressing, requires assistance One Impairment Pt does not have an appropriate home exercise program Short Term Goal (STG) Pt to be independent and compliant with an appropriate HEP 07/30/22: progressing: resisted tricep ext, OH raises in w/c, supine HABD, added scaption OH B #2. STG Duration 11/19/22 Progressing Assessment Summary Assessment Pt improved decrease assist into tall kneel, CGA-10%A up to 11 sec, good tricep and ES facilitation reported felt recruited. Physical Therapy Plan Frequency and Duration Frequency of Treatment 2x/Week Plan of Care Start Date 08/21/22 Plan of Care End Date 11/19/22 Therapeutic Interventions Therapeutic Interventions Aquatic Therapy,Balance Training,Coordination Training ,Gait Training,Home Exercise Program,Manual Therapy, Neuromuscular Re-education, Orthotic/Prosthetic Management ,Patient/Caregiver Education, Self-Care/Home Management, Sensory Integration,Soft Tissue Mobilization, Therapeutic Activities, Therapeutic Exercises, Wheelchair Management Next Visit Focus/Plan Next Note Type Treatment Note Next Visit Plan Continue quadruped, tall knee, seated balance activities. POC: Continue UE and core strengthening, LE PROM and manual stretching. Transfers, mobility, LE ROM *HOME PERFORMANCE LABORER suggested: Consider sit to stander in future when has better TA and hip abd/add control.
--- NOTE | 2022-09-18 11:01 | PT.OTN ---
Current Diagnoses Paraplegia, unspecified (09/18/22) Other specified personal risk factors, not elsewhere classified (09/18/22) Other specified postprocedural states (09/18/22) Physical Therapy Treatment Note PT-OP-A Visit Information Start: 03/08/22 17:00 Freq: Status: Active Protocol: Document 09/18/22 10:18 DCW (Rec: 09/18/22 11:01 DCW [id number]) Out-Patient Physical Therapy Visit Information Visit Information Visit Type Treatment Note Visit Note 11/18 after PN Visit Start Time 10:18 Visit Stop Time 11:00 Total Visit Minutes 42 Visit Number 45 Number of MANAGER VIDEO Visits 0 Evaluation Information Evaluation Date 03/08/22 PT-OP-B Current Condition Start: 03/08/22 17:00 Freq: Status: Active Protocol: Document 03/08/22 11:15 DCW (Rec: 03/08/22 17:11 DCW [id number]) Current Condition History of Current Condition Onset Date 12/16/21 Current Complaints Paraplegia History of Current Condition Pt is a 71 year old male with a very unfortunate medical history. Pt was hiking [employer] on 12/16/21 with a friend, finished up, drive back to his friend's home to drop him off, and noticed his left leg was collapsing. By the time pt drove home, both legs were giving out and numb. Pt was suddenly paralized from the waist down, was taken to the ED, and was flown to [facility] on 12/17/21. The following day, he underwent a laminectomy to relieve pressure from the thoracic epidural hematoma which had developed following his hike, which was pressing on his spinal cord. Following surgery , pt was in recovery for a week and was then transfered to rehab for 20 days, when he was finally discharged home in a wheelchair on 01/19/22. Pt reports his surgeon informed him that it is a possibility that he gets some return of nerve function. Has experienced some changes in his right LE, but has no motor function at this time from ~ T10 down. Minimal sensory return on right side, none on left. Pt has been anxious to get in to therapy and do everything he can to help return to function. Pt's , who attended his evaluation, notes that she has been doing a lot of PROM in his legs at night to keep everything moving. Pt can feel some stretching during PROM in his right leg. Pt has additionally already started occupational therapy, and has been practicing some seated stabilization. Pt transfers with a slide board, but notes it is difficult to do into his car, because he has to transfer upward at an incline. Treatment Goals Patient/Caregiver Goals I will do anything possible to get out of this wheelchair. My neurologist told me he has seen people recover from this , so I am not giving up hope. PT-OP-C Subjective Start: 03/08/22 17:00 Freq: Status: Active Protocol: Document 09/18/22 10:18 DCW (Rec: 09/18/22 11:01 DCW [id number]) OP-PT Subjective Patient Comments Patient Comments Pt notes that he was performing the leg press motion with his , but was unsure if he was able to the flex his hips back to the starting position, or if it was simply his contractures pulling him back. PT-OP-G Mobility & Gait Start: 03/08/22 17:00 Freq: Status: Active Protocol: Document 08/21/22 15:15 DCW (Rec: 08/21/22 15:38 DCW [id number]) OP Mobility Evaluation Transfers Bed to Chair Transfers Transfers using UE Wheelchair Management Type of Wheelchair Manual w/c PT-OP-H Neuro Start: 03/08/22 17:00 Freq: Status: Active Protocol: Document 08/21/22 15:15 DCW (Rec: 08/21/22 15:38 DCW [id number]) Sensation Evaluation Gross Sensation Gross Sensation Left LE Impaired,Right LE Impaired,Trunk Impaired Sensation Description Paresthesia,Numbness,Tingling, Pins & Cogswell,Burning Dermatome Impairments L1,L2,L3,L4,L5,S1,S2,S3,S4-5 Location Details Right Leg Light Touch Impaired Sharp/Dull Impaired Deep Pressure Impaired Hot/Cold Absent Protective Sensation Absent Proprioception (Position) Impaired Kinesthesia (Movement) Impaired Two-Point Discrimination Absent Tactile Localization Impaired Stereognosis Impaired Left Leg Light Touch Absent Sharp/Dull Absent Deep Pressure Impaired Hot/Cold Absent Protective Sensation Absent Proprioception (Position) Absent Kinesthesia (Movement) Impaired Two-Point Discrimination Absent Tactile Localization Absent Stereognosis Absent Deep Tendon Reflex & Clonus Assessment Deep Tendon Reflex Right Achilles Deep Tendon Reflex 1+ Diminished Right Patellar Deep Tendon Reflex 2+ Normal Left Achilles Deep Tendon Reflex 1+ Diminished Left Patellar Deep Tendon Reflex 0 Absent Muscle Tone Tone Assessment Right Lower Extremity Flexor Tone Description Moderate Hypertonicity Extensor Tone Description Moderate Hypertonicity Left Lower Extremity Flexor Tone Description Moderate Hypertonicity Extensor Tone Description Moderate Hypertonicity PT-OP-J Posture/Palpation/Skin Start: 03/08/22 17:00 Freq: Status: Active Protocol: Document 08/21/22 15:15 DCW (Rec: 08/21/22 15:38 DCW [id number]) Posture Evaluation Comments Posture Comments Significant improvement with core control, able to resist moderate sternal push and self -correct back to sitting position with no LOB. PT-OP-M Strength Start: 08/21/22 15:38 Freq: Status: Active Protocol: Document 08/21/22 15:15 DCW (Rec: 08/21/22 15:40 DCW [id number]) Hip Strength Hip Manual Muscle Testing Right Extension (S1) 2- Poor- Adduction 2- Poor- Left Extension (S1) 1 Trace Adduction 0 Zero Knee Strength Knee Manual Muscle Testing Right Flexion (S2) 1 Trace Extension (L3) 1 Trace Left Flexion (S2) 1 Trace Extension (L3) 0 Zero PT-OP-Q Treatments Start: 03/08/22 17:00 Freq: Status: Active Protocol: Document 09/18/22 10:18 DCW (Rec: 09/18/22 11:01 DCW [id number]) Cardio Equipment Recumbent Elliptical (Biodex) Duration (Minutes) 10 Resistance 5 Seat Position 9 Other w/c<->Biodex SBT using UEs, gait belt, Min Ax1 Gym Equipment Shuttle Recovery Bilateral Squats Details with and without UE assist Resistance 12# Reps/Time very slight, minimal movement without UE assistance Therapeutic Exercises Sitting Exercises Goodmorning Stretch Sitting Exercise Name Good Morning stretch Equipment Used Mod Ax1 for stabilization, especially overhead reaching Comments Fwd flexion into reaching overhead sit backs Sitting Exercise Name to PT hand-gradual inc distance Side bilateral Comments self sit backs and resisted push backs, lateral leans Therapeutic Activity Therapeutic Activity Slide Board Transfer Name To and from Leg press(wc)- SBT - biodex, shuttle recovery Reps/Minutes 4 Comments Min A for trunk support but blocking knees as leg press up hill to wc PT-OP-T Assessment and Plan Start: 03/08/22 17:00 Freq: Status: Active Protocol: Document 09/18/22 10:18 DCW (Rec: 09/18/22 11:01 DCW [id number]) Physical Therapy Assessment Impairments Impairments Activity Tolerance,Balance, Coordination,Functional Activities,Functional Mobility ,Gait,Integument,Sensation, Soft Tissue Mobility,Strength, Tone,Transfers Goals Three Impairment Pt does not have any motor function throughout bilateral LEs Short Term Goal (STG) Pt to demonstrate 1/5 trace motor contraction in at least one quad in order to begin focus on LE mobility if neural functional return begins. STG Duration Met Helicopter Pilot Goal (LTG) Pt to demonstrate right quad strength to at least 2/5, demonstrating movement into ROM in an antigravity position LTG Duration 11/19/22 Two Impairment Pt struggles to perform slideboard car transfer due to upward tilt Custodial Goal (LTG) Pt to demonstrate car transfer SBA using slideboard. 07/30/22: progressing: provides support for trunk stability while pt completes transfer self using slidboard and use over head doorframe handles and car door. has to place/remove slide board. Mod A uphill onto biodex, CG/ MIn A descend off biodex use slideboard. LTG Duration 11/19/22 progressing, requires assistance One Impairment Pt does not have an appropriate home exercise program Short Term Goal (STG) Pt to be independent and compliant with an appropriate HEP 07/30/22: progressing: resisted tricep ext, OH raises in w/c, supine HABD, added scaption OH B #2. STG Duration 11/19/22 Progressing Assessment Summary Assessment Pt did not have quite the same push on leg press today, struggled with volitional movement. [employer] that the lateral shifting while sitting and the good morning stretch were both very beneficial in loosening up his back. Physical Therapy Plan Frequency and Duration Frequency of Treatment 2x/Week Plan of Care Start Date 08/21/22 Plan of Care End Date 11/19/22 Therapeutic Interventions Therapeutic Interventions Aquatic Therapy,Balance Training,Coordination Training ,Gait Training,Home Exercise Program,Manual Therapy, Neuromuscular Re-education, Orthotic/Prosthetic Management ,Patient/Caregiver Education, Self-Care/Home Management, Sensory Integration,Soft Tissue Mobilization, Therapeutic Activities, Therapeutic Exercises, Wheelchair Management Next Visit Focus/Plan Next Note Type Treatment Note Next Visit Plan Continue quadruped, tall knee, seated balance activities. POC: Continue UE and core strengthening, LE PROM and manual stretching. Transfers, mobility, LE ROM *MANAGER VIDEO suggested: Consider sit to stander in future when has better TA and hip abd/add control.
--- NOTE | 2022-09-23 11:34 | PT.OTN ---
Current Diagnoses Paraplegia, unspecified (09/23/22) Other specified personal risk factors, not elsewhere classified (09/23/22) Other specified postprocedural states (09/23/22) Physical Therapy Treatment Note PT-OP-A Visit Information Start: 03/08/22 17:00 Freq: Status: Active Protocol: Document 09/23/22 10:52 SP (Rec: 09/23/22 11:39 SP [id number]) Out-Patient Physical Therapy Visit Information Visit Information Visit Type Treatment Note Visit Note 12/19 after PN SPTA Mary assisted pt and HYDRAULIC DESIGN ENGINEER with mobility tx while under direct supervision and instruction of HYDRAULIC DESIGN ENGINEER Gely. Visit Start Time 10:52 Visit Stop Time 11:34 Total Visit Minutes 42 Visit Number 46 Number of HYDRAULIC DESIGN ENGINEER Visits 1 Evaluation Information Evaluation Date 03/08/22 PT-OP-B Current Condition Start: 03/08/22 17:00 Freq: Status: Active Protocol: Document 03/08/22 11:15 DCW (Rec: 03/08/22 17:11 DCW [id number]) Current Condition History of Current Condition Onset Date 12/16/21 Current Complaints Paraplegia History of Current Condition Pt is a 71 year old male with a very unfortunate medical history. Pt was hiking [employer] on 12/16/21 with a friend, finished up, drive back to his friend's home to drop him off, and noticed his left leg was collapsing. By the time pt drove home, both legs were giving out and numb. Pt was suddenly paralized from the waist down, was taken to the ED, and was flown to [facility] on 12/17/21. The following day, he underwent a laminectomy to relieve pressure from the thoracic epidural hematoma which had developed following his hike, which was pressing on his spinal cord. Following surgery , pt was in recovery for a week and was then transfered to rehab for 20 days, when he was finally discharged home in a wheelchair on 01/19/22. Pt reports his surgeon informed him that it is a possibility that he gets some return of nerve function. Has experienced some changes in his right LE, but has no motor function at this time from ~ T10 down. Minimal sensory return on right side, none on left. Pt has been anxious to get in to therapy and do everything he can to help return to function. Pt's , who attended his evaluation, notes that she has been doing a lot of PROM in his legs at night to keep everything moving. Pt can feel some stretching during PROM in his right leg. Pt has additionally already started occupational therapy, and has been practicing some seated stabilization. Pt transfers with a slide board, but notes it is difficult to do into his car, because he has to transfer upward at an incline. Treatment Goals Patient/Caregiver Goals I will do anything possible to get out of this wheelchair. My neurologist told me he has seen people recover from this , so I am not giving up hope. PT-OP-C Subjective Start: 03/08/22 17:00 Freq: Status: Active Protocol: Document 09/23/22 10:52 SP (Rec: 09/23/22 11:39 SP [id number]) OP-PT Subjective Patient Comments Patient Comments Pt reports was telling that if involuntary spasticity is a sign of improved movement then doing great. PT-OP-G Mobility & Gait Start: 03/08/22 17:00 Freq: Status: Active Protocol: Document 08/21/22 15:15 DCW (Rec: 08/21/22 15:38 DCW [id number]) OP Mobility Evaluation Transfers Bed to Chair Transfers Transfers using UE Wheelchair Management Type of Wheelchair Manual w/c PT-OP-H Neuro Start: 03/08/22 17:00 Freq: Status: Active Protocol: Document 08/21/22 15:15 DCW (Rec: 08/21/22 15:38 DCW [id number]) Sensation Evaluation Gross Sensation Gross Sensation Left LE Impaired,Right LE Impaired,Trunk Impaired Sensation Description Paresthesia,Numbness,Tingling, Pins [place],Burning Dermatome Impairments L1,L2,L3,L4,L5,S1,S2,S3,S4-5 Location Details Right Leg Light Touch Impaired Sharp/Dull Impaired Deep Pressure Impaired Hot/Cold Absent Protective Sensation Absent Proprioception (Position) Impaired Kinesthesia (Movement) Impaired Two-Point Discrimination Absent Tactile Localization Impaired Stereognosis Impaired Left Leg Light Touch Absent Sharp/Dull Absent Deep Pressure Impaired Hot/Cold Absent Protective Sensation Absent Proprioception (Position) Absent Kinesthesia (Movement) Impaired Two-Point Discrimination Absent Tactile Localization Absent Stereognosis Absent Deep Tendon Reflex & Clonus Assessment Deep Tendon Reflex Right Achilles Deep Tendon Reflex 1+ Diminished Right Patellar Deep Tendon Reflex 2+ Normal Left Achilles Deep Tendon Reflex 1+ Diminished Left Patellar Deep Tendon Reflex 0 Absent Muscle Tone Tone Assessment Right Lower Extremity Flexor Tone Description Moderate Hypertonicity Extensor Tone Description Moderate Hypertonicity Left Lower Extremity Flexor Tone Description Moderate Hypertonicity Extensor Tone Description Moderate Hypertonicity PT-OP-J Posture/Palpation/Skin Start: 03/08/22 17:00 Freq: Status: Active Protocol: Document 08/21/22 15:15 DCW (Rec: 08/21/22 15:38 DCW [id number]) Posture Evaluation Comments Posture Comments Significant improvement with core control, able to resist moderate sternal push and self -correct back to sitting position with no LOB. PT-OP-M Strength Start: 08/21/22 15:38 Freq: Status: Active Protocol: Document 08/21/22 15:15 DCW (Rec: 08/21/22 15:40 DCW [id number]) Hip Strength Hip Manual Muscle Testing Right Extension (S1) 2- Poor- Adduction 2- Poor- Left Extension (S1) 1 Trace Adduction 0 Zero Knee Strength Knee Manual Muscle Testing Right Flexion (S2) 1 Trace Extension (L3) 1 Trace Left Flexion (S2) 1 Trace Extension (L3) 0 Zero PT-OP-Q Treatments Start: 03/08/22 17:00 Freq: Status: Active Protocol: Document 09/23/22 10:52 SP (Rec: 09/23/22 11:39 SP [id number]) Therapeutic Exercises Supine Exercises hip ext Supine Exercise Name isometric Side bilateral Resistance Tb #2 orange Equipment Used therapist support each LE Reps/Minutes 3 reps Comments trace quad, glut, calves R>L facilitation Knee to Chest Supine Exercise Name Single KtC Side bilateral Resistance manual Equipment Used 3 pillows under CS/ TS ( excessive kyphosis) Reps/Minutes 2 min Other Exercises quadruped child's pose Other Exercise Name quadruped child's pose Reps/Minutes 2 min Comments cued reach UEs out front quadruped Other Exercise Name rock f/b/lat therapist CG, pt self heavy support BUEs Reps/Minutes x5 reps Comments good glut and ES stretching Therapeutic Activity Therapeutic Activity tall kneel Name 12 box, blue foam roller under ankles Reps/Minutes 3 reps (SB/CGA, therapist assist box mgt) Comments Mod/Max A as reps progressed in tall kneeling, good hip and trunk ext. up to 30 sec, 15 sec, 6 sec. Unable find height to WB into elbow. PT-OP-T Assessment and Plan Start: 03/08/22 17:00 Freq: Status: Active Protocol: Document 09/23/22 10:52 SP (Rec: 09/23/22 11:39 SP [id number]) Physical Therapy Assessment Goals Three Impairment Pt does not have any motor function throughout bilateral LEs Short Term Goal (STG) Pt to demonstrate 1/5 trace motor contraction in at least one quad in order to begin focus on LE mobility if neural functional return begins. STG Duration Met Group Home Goal (LTG) Pt to demonstrate right quad strength to at least 2/5, demonstrating movement into ROM in an antigravity position LTG Duration 11/19/22 Two Impairment Pt struggles to perform slideboard car transfer due to upward tilt Group Home Goal (LTG) Pt to demonstrate car transfer SBA using slideboard. 07/30/22: progressing: provides support for trunk stability while pt completes transfer self using slidboard and use over head doorframe handles and car door. has to place/remove slide board. Mod A uphill onto biodex, CG/ MIn A descend off biodex use slideboard. LTG Duration 11/19/22 progressing, requires assistance One Impairment Pt does not have an appropriate home exercise program Short Term Goal (STG) Pt to be independent and compliant with an appropriate HEP 07/30/22: progressing: resisted tricep ext, OH raises in w/c, supine HABD, added scaption OH B #2. STG Duration 11/19/22 Progressing Assessment Summary Assessment Pt demonstrates trace contractions in R>LLEs. Finds relief in quadruped positions. Able to hold tall kneel Min A up to 30sec before tired quicker with reps. Physical Therapy Plan Frequency and Duration Frequency of Treatment 2x/Week Plan of Care Start Date 08/21/22 Plan of Care End Date 11/19/22 Therapeutic Interventions Therapeutic Interventions Aquatic Therapy,Balance Training,Coordination Training ,Gait Training,Home Exercise Program,Manual Therapy, Neuromuscular Re-education, Orthotic/Prosthetic Management ,Patient/Caregiver Education, Self-Care/Home Management, Sensory Integration,Soft Tissue Mobilization, Therapeutic Activities, Therapeutic Exercises, Wheelchair Management Next Visit Focus/Plan Next Note Type Treatment Note Next Visit Plan Continue quadruped, tall knee, seated balance activities. POC: Continue UE and core strengthening, LE PROM and manual stretching. Transfers, mobility, LE ROM *HYDRAULIC DESIGN ENGINEER suggested: Consider sit to stander in future when has better TA and hip abd/add control.
--- NOTE | 2022-09-25 11:02 | PT.OTN ---
Current Diagnoses Paraplegia, unspecified (09/25/22) Other specified personal risk factors, not elsewhere classified (09/25/22) Other specified postprocedural states (09/25/22) Physical Therapy Treatment Note PT-OP-A Visit Information Start: 03/08/22 17:00 Freq: Status: Active Protocol: Document 09/25/22 10:18 DCW (Rec: 09/25/22 11:02 DCW [id number]) Out-Patient Physical Therapy Visit Information Visit Information Visit Type Progress Note Visit Start Time 10:18 Visit Stop Time 11:00 Total Visit Minutes 42 Visit Number 47 Number of REGIONAL ACCOUNT EXECUTIVE Visits 0 Evaluation Information Evaluation Date 03/08/22 PT-OP-B Current Condition Start: 03/08/22 17:00 Freq: Status: Active Protocol: Document 03/08/22 11:15 DCW (Rec: 03/08/22 17:11 DCW [id number]) Current Condition History of Current Condition Onset Date 12/16/21 Current Complaints Paraplegia History of Current Condition Pt is a 71 year old male with a very unfortunate medical history. Pt was hiking [place] on 12/16/21 with a friend, finished up, drive back to his friend's home to drop him off, and noticed his left leg was collapsing. By the time pt drove home, both legs were giving out and numb. Pt was suddenly paralized from the waist down, was taken to the ED, and was flown to [facility] on 12/17/21. The following day, he underwent a laminectomy to relieve pressure from the thoracic epidural hematoma which had developed following his hike, which was pressing on his spinal cord. Following surgery , pt was in recovery for a week and was then transfered to rehab for 20 days, when he was finally discharged home in a wheelchair on 01/19/22. Pt reports his surgeon informed him that it is a possibility that he gets some return of nerve function. Has experienced some changes in his right LE, but has no motor function at this time from ~ T10 down. Minimal sensory return on right side, none on left. Pt has been anxious to get in to therapy and do everything he can to help return to function. Pt's , who attended his evaluation, notes that she has been doing a lot of PROM in his legs at night to keep everything moving. Pt can feel some stretching during PROM in his right leg. Pt has additionally already started occupational therapy, and has been practicing some seated stabilization. Pt transfers with a slide board, but notes it is difficult to do into his car, because he has to transfer upward at an incline. Treatment Goals Patient/Caregiver Goals I will do anything possible to get out of this wheelchair. My neurologist told me he has seen people recover from this , so I am not giving up hope. PT-OP-C Subjective Start: 03/08/22 17:00 Freq: Status: Active Protocol: Document 09/25/22 10:18 DCW (Rec: 09/25/22 11:02 DCW [id number]) OP-PT Subjective Patient Comments Patient Comments Just in the last week, it's like both legs are jumping all over the place. Not of my own volition, but its still muscles moving. PT-OP-G Mobility & Gait Start: 03/08/22 17:00 Freq: Status: Active Protocol: Document 08/21/22 15:15 DCW (Rec: 08/21/22 15:38 DCW [id number]) OP Mobility Evaluation Transfers Bed to Chair Transfers Transfers using UE Wheelchair Management Type of Wheelchair Manual w/c PT-OP-H Neuro Start: 03/08/22 17:00 Freq: Status: Active Protocol: Document 08/21/22 15:15 DCW (Rec: 08/21/22 15:38 DCW [id number]) Sensation Evaluation Gross Sensation Gross Sensation Left LE Impaired,Right LE Impaired,Trunk Impaired Sensation Description Paresthesia,Numbness,Tingling, Pins & [place],Burning Dermatome Impairments L1,L2,L3,L4,L5,S1,S2,S3,S4-5 Location Details Right Leg Light Touch Impaired Sharp/Dull Impaired Deep Pressure Impaired Hot/Cold Absent Protective Sensation Absent Proprioception (Position) Impaired Kinesthesia (Movement) Impaired Two-Point Discrimination Absent Tactile Localization Impaired Stereognosis Impaired Left Leg Light Touch Absent Sharp/Dull Absent Deep Pressure Impaired Hot/Cold Absent Protective Sensation Absent Proprioception (Position) Absent Kinesthesia (Movement) Impaired Two-Point Discrimination Absent Tactile Localization Absent Stereognosis Absent Deep Tendon Reflex & Clonus Assessment Deep Tendon Reflex Right Achilles Deep Tendon Reflex 1+ Diminished Right Patellar Deep Tendon Reflex 2+ Normal Left Achilles Deep Tendon Reflex 1+ Diminished Left Patellar Deep Tendon Reflex 0 Absent Muscle Tone Tone Assessment Right Lower Extremity Flexor Tone Description Moderate Hypertonicity Extensor Tone Description Moderate Hypertonicity Left Lower Extremity Flexor Tone Description Moderate Hypertonicity Extensor Tone Description Moderate Hypertonicity PT-OP-J Posture/Palpation/Skin Start: 03/08/22 17:00 Freq: Status: Active Protocol: Document 08/21/22 15:15 DCW (Rec: 08/21/22 15:38 DCW [id number]) Posture Evaluation Comments Posture Comments Significant improvement with core control, able to resist moderate sternal push and self -correct back to sitting position with no LOB. PT-OP-M Strength Start: 08/21/22 15:38 Freq: Status: Active Protocol: Document 08/21/22 15:15 DCW (Rec: 08/21/22 15:40 DCW [id number]) Hip Strength Hip Manual Muscle Testing Right Extension (S1) 2- Poor- Adduction 2- Poor- Left Extension (S1) 1 Trace Adduction 0 Zero Knee Strength Knee Manual Muscle Testing Right Flexion (S2) 1 Trace Extension (L3) 1 Trace Left Flexion (S2) 1 Trace Extension (L3) 0 Zero PT-OP-Q Treatments Start: 03/08/22 17:00 Freq: Status: Active Protocol: Document 09/25/22 10:18 DCW (Rec: 09/25/22 11:02 DCW [id number]) Cardio Equipment Recumbent Elliptical (Biodex) Duration (Minutes) 10 Resistance 5 Seat Position 9 Other w/c<->Biodex SBT using UEs, gait belt, Min Ax1 Gym Equipment Shuttle Recovery Bilateral Squats Details with and without UE assist Resistance 12# Reps/Time very slight, minimal movement without UE assistance Therapeutic Exercises Supine Exercises Adductor Stretch Supine Exercise Name FIg 4 individual Resistance PROM tolerant range Equipment Used manual Comments cue breath work Hip Flexor Stretch Supine Exercise Name Hip Flexor Stretch (LE extension) Side bilateral Resistance facilitation thru diaphram & lat chest-pt taught to self do Equipment Used improved decrease tone w/ breathwork Reps/Minutes 5 min Comments putting hip and knee into increased extension with over press ant thigh Hamstring Stretch Supine Exercise Name HS stretch Side bilateral Equipment Used wedge and 4 pillows under TS/ head DT excess kyphosis Reps/Minutes 30 Comments cued breath allow relax musculature Knee to Chest Supine Exercise Name Single KtC Side bilateral Resistance manual Equipment Used 3 pillows under CS/ TS ( excessive kyphosis) Reps/Minutes 2 min Other Exercises Approximation Other Exercise Name Hip approximation in quad, therapist overpressure through hips quadruped child's pose Other Exercise Name quadruped child's pose Reps/Minutes 2 min Comments cued reach UEs out front quadruped Other Exercise Name rock f/b/lat therapist CG, pt self heavy support BUEs Reps/Minutes x5 reps Comments good glut and ES stretching Therapeutic Activity Therapeutic Activity Slide Board Transfer Name To and from Leg press(wc)- SBT - shuttle recovery Reps/Minutes 4 Comments Min A for trunk support but blocking knees as leg press up hill to wc PT-OP-T Assessment and Plan Start: 03/08/22 17:00 Freq: Status: Active Protocol: Document 09/25/22 10:18 DCW (Rec: 09/25/22 11:02 DCW [id number]) Physical Therapy Assessment Impairments Impairments Activity Tolerance,Balance, Coordination,Functional Activities,Functional Mobility ,Gait,Integument,Sensation, Soft Tissue Mobility,Strength, Tone,Transfers Goals Three Impairment Pt does not have any motor function throughout bilateral LEs Short Term Goal (STG) Pt to demonstrate 1/5 trace motor contraction in at least one quad in order to begin focus on LE mobility if neural functional return begins. STG Duration Met Usp Goal (LTG) Pt to demonstrate right quad strength to at least 2/5, demonstrating movement into ROM in an antigravity position LTG Duration 11/19/22 Two Impairment Pt struggles to perform slideboard car transfer due to upward tilt Usp Goal (LTG) Pt to demonstrate car transfer SBA using slideboard. 07/30/22: progressing: provides support for trunk stability while pt completes transfer self using slidboard and use over head doorframe handles and car door. has to place/remove slide board. Mod A uphill onto biodex, CG/ MIn A descend off biodex use slideboard. LTG Duration 11/19/22 progressing, requires assistance One Impairment Pt does not have an appropriate home exercise program Short Term Goal (STG) Pt to be independent and compliant with an appropriate HEP 07/30/22: progressing: resisted tricep ext, OH raises in w/c, supine HABD, added scaption OH B #2. STG Duration 11/19/22 Progressing Progress Towards Goals Progress Towards Goals Slow Progress due to Medical Issues Assessment Summary Assessment Car transfers are similar, too steep for pt to perform himself, but is able to prevent pt from sliding down so he can complete the transfer himself. Doing better with HEP, has been busy at home. Continues to demonstrate tiny changes in LE strength, has recently show ability to slightly move sled on leg press. Does well with continued stretching Physical Therapy Plan Frequency and Duration Frequency of Treatment 2x/Week Plan of Care Start Date 08/21/22 Plan of Care End Date 11/19/22 Therapeutic Interventions Therapeutic Interventions Aquatic Therapy,Balance Training,Coordination Training ,Gait Training,Home Exercise Program,Manual Therapy, Neuromuscular Re-education, Orthotic/Prosthetic Management ,Patient/Caregiver Education, Self-Care/Home Management, Sensory Integration,Soft Tissue Mobilization, Therapeutic Activities, Therapeutic Exercises, Wheelchair Management Next Visit Focus/Plan Next Note Type Treatment Note Next Visit Plan Continue quadruped, tall knee, seated balance activities. POC: Continue UE and core strengthening, LE PROM and manual stretching. Transfers, mobility, LE ROM *REGIONAL ACCOUNT EXECUTIVE suggested: Consider sit to stander in future when has better TA and hip abd/add control.
--- NOTE | 2022-09-30 10:45 | PT.OTN ---
Current Diagnoses Paraplegia, unspecified (09/30/22) Other specified personal risk factors, not elsewhere classified (09/30/22) Other specified postprocedural states (09/30/22) Physical Therapy Treatment Note PT-OP-A Visit Information Start: 03/08/22 17:00 Freq: Status: Active Protocol: Document 09/30/22 10:09 SP (Rec: 09/30/22 10:49 SP [id number]) Out-Patient Physical Therapy Visit Information Visit Information Visit Type Treatment Note Visit Note LIUDMILA Hernandez provided support to pt during transfers in/out w/c , 2nd person assist for LE repositioning in standing while under direct supervision of TIANNA Hong. Visit Start Time 10:02 Visit Stop Time 10:45 Total Visit Minutes 43 Visit Number 48 Number of ABATTOIR SUPERVISOR Visits 1 Evaluation Information Evaluation Date 03/08/22 PT-OP-B Current Condition Start: 03/08/22 17:00 Freq: Status: Active Protocol: Document 03/08/22 11:15 DCW (Rec: 03/08/22 17:11 DCW [id number]) Current Condition History of Current Condition Onset Date 12/16/21 Current Complaints Paraplegia History of Current Condition Pt is a 71 year old male with a very unfortunate medical history. Pt was hiking [place] on 12/16/21 with a friend, finished up, drive back to his friend's home to drop him off, and noticed his left leg was collapsing. By the time pt drove home, both legs were giving out and numb. Pt was suddenly paralized from the waist down, was taken to the ED, and was flown to [facility] on 12/17/21. The following day, he underwent a laminectomy to relieve pressure from the thoracic epidural hematoma which had developed following his hike, which was pressing on his spinal cord. Following surgery , pt was in recovery for a week and was then transfered to rehab for 20 days, when he was finally discharged home in a wheelchair on 01/19/22. Pt reports his surgeon informed him that it is a possibility that he gets some return of nerve function. Has experienced some changes in his right LE, but has no motor function at this time from ~ T10 down. Minimal sensory return on right side, none on left. Pt has been anxious to get in to therapy and do everything he can to help return to function. Pt's , who attended his evaluation, notes that she has been doing a lot of PROM in his legs at night to keep everything moving. Pt can feel some stretching during PROM in his right leg. Pt has additionally already started occupational therapy, and has been practicing some seated stabilization. Pt transfers with a slide board, but notes it is difficult to do into his car, because he has to transfer upward at an incline. Treatment Goals Patient/Caregiver Goals I will do anything possible to get out of this wheelchair. My neurologist told me he has seen people recover from this , so I am not giving up hope. PT-OP-C Subjective Start: 03/08/22 17:00 Freq: Status: Active Protocol: Document 09/30/22 10:09 SP (Rec: 09/30/22 10:49 SP [id number]) OP-PT Subjective Patient Comments Patient Comments Pt reports he is able to perform tricep push up in chair to assist pulling up his pants for brief moment. PT-OP-G Mobility & Gait Start: 03/08/22 17:00 Freq: Status: Active Protocol: Document 08/21/22 15:15 DCW (Rec: 08/21/22 15:38 DCW [id number]) OP Mobility Evaluation Transfers Bed to Chair Transfers Transfers using UE Wheelchair Management Type of Wheelchair Manual w/c PT-OP-H Neuro Start: 03/08/22 17:00 Freq: Status: Active Protocol: Document 08/21/22 15:15 DCW (Rec: 08/21/22 15:38 DCW [id number]) Sensation Evaluation Gross Sensation Gross Sensation Left LE Impaired,Right LE Impaired,Trunk Impaired Sensation Description Paresthesia,Numbness,Tingling, Pins & [place] [address],Burning Dermatome Impairments L1,L2,L3,L4,L5,S1,S2,S3,S4-5 Location Details Right Leg Light Touch Impaired Sharp/Dull Impaired Deep Pressure Impaired Hot/Cold Absent Protective Sensation Absent Proprioception (Position) Impaired Kinesthesia (Movement) Impaired Two-Point Discrimination Absent Tactile Localization Impaired Stereognosis Impaired Left Leg Light Touch Absent Sharp/Dull Absent Deep Pressure Impaired Hot/Cold Absent Protective Sensation Absent Proprioception (Position) Absent Kinesthesia (Movement) Impaired Two-Point Discrimination Absent Tactile Localization Absent Stereognosis Absent Deep Tendon Reflex & Clonus Assessment Deep Tendon Reflex Right Achilles Deep Tendon Reflex 1+ Diminished Right Patellar Deep Tendon Reflex 2+ Normal Left Achilles Deep Tendon Reflex 1+ Diminished Left Patellar Deep Tendon Reflex 0 Absent Muscle Tone Tone Assessment Right Lower Extremity Flexor Tone Description Moderate Hypertonicity Extensor Tone Description Moderate Hypertonicity Left Lower Extremity Flexor Tone Description Moderate Hypertonicity Extensor Tone Description Moderate Hypertonicity PT-OP-J Posture/Palpation/Skin Start: 03/08/22 17:00 Freq: Status: Active Protocol: Document 08/21/22 15:15 DCW (Rec: 08/21/22 15:38 DCW [id number]) Posture Evaluation Comments Posture Comments Significant improvement with core control, able to resist moderate sternal push and self -correct back to sitting position with no LOB. PT-OP-M Strength Start: 08/21/22 15:38 Freq: Status: Active Protocol: Document 08/21/22 15:15 DCW (Rec: 08/21/22 15:40 DCW [id number]) Hip Strength Hip Manual Muscle Testing Right Extension (S1) 2- Poor- Adduction 2- Poor- Left Extension (S1) 1 Trace Adduction 0 Zero Knee Strength Knee Manual Muscle Testing Right Flexion (S2) 1 Trace Extension (L3) 1 Trace Left Flexion (S2) 1 Trace Extension (L3) 0 Zero PT-OP-Q Treatments Start: 03/08/22 17:00 Freq: Status: Active Protocol: Document 09/30/22 10:09 SP (Rec: 09/30/22 10:49 SP [id number]) Cardio Equipment Recumbent Elliptical (Biodex) Duration (Minutes) 10 Resistance 5 Seat Position 8>9 (support R ft stay on plate) Other w/c<->Biodex SBT using UEs, gait belt, Min Ax1 Therapeutic Exercises Sitting Exercises HABD Sitting Exercise Name HABD & ER Resistance Tb #3 Equipment Used in w/c post standing, small wedge behind mid TS Reps/Minutes 2x10 Comments cued upright Triceps press-up Sitting Exercise Name Triceps press-up into standing Side bilateral Reps/Minutes 5 reps on //bars Max>Mod A Comments Assist with holding down wood bars, blocking of knees. Therapeutic Activity Therapeutic Activity sit<>intermediate accountant //bars Name initiated in PT Reps/Minutes 5 reps Comments 40s-52 sec Max> Mod A x1 w/ support via gait belt at pelvis and anterior knee support R>L LE //bar height 33, width 5. Occasional SPTA assist reposition LLE due to flexor and adduction tone R>LLEs unweight from floor. cued decrease elbow extension to allow BLE WB on floor. PT-OP-T Assessment and Plan Start: 03/08/22 17:00 Freq: Status: Active Protocol: Document 09/30/22 10:09 SP (Rec: 09/30/22 10:49 SP [id number]) Physical Therapy Assessment Goals Three Impairment Pt does not have any motor function throughout bilateral LEs Short Term Goal (STG) Pt to demonstrate 1/5 trace motor contraction in at least one quad in order to begin focus on LE mobility if neural functional return begins. STG Duration Met Shelter Goal (LTG) Pt to demonstrate right quad strength to at least 2/5, demonstrating movement into ROM in an antigravity position LTG Duration 11/19/22 Two Impairment Pt struggles to perform slideboard car transfer due to upward tilt Forestry Scientist Goal (LTG) Pt to demonstrate car transfer SBA using slideboard. 07/30/22: progressing: provides support for trunk stability while pt completes transfer self using slidboard and use over head doorframe handles and car door. has to place/remove slide board. Mod A uphill onto biodex, CG/ MIn A descend off biodex use slideboard. LTG Duration 11/19/22 progressing, requires assistance One Impairment Pt does not have an appropriate home exercise program Short Term Goal (STG) Pt to be independent and compliant with an appropriate HEP 07/30/22: progressing: resisted tricep ext, OH raises in w/c, supine HABD, added scaption OH B #2. STG Duration 11/19/22 Progressing Assessment Summary Assessment Pt worked hard with standing up to 52 sec use of tricep and wt shift in //bars. Therapist assist Max> Mod A, cued for decrease elbow extension to allow increased bilateral LE WB in //bars today. Physical Therapy Plan Frequency and Duration Frequency of Treatment 2x/Week Plan of Care Start Date 08/21/22 Plan of Care End Date 11/19/22 Therapeutic Interventions Therapeutic Interventions Aquatic Therapy,Balance Training,Coordination Training ,Gait Training,Home Exercise Program,Manual Therapy, Neuromuscular Re-education, Orthotic/Prosthetic Management ,Patient/Caregiver Education, Self-Care/Home Management, Sensory Integration,Soft Tissue Mobilization, Therapeutic Activities, Therapeutic Exercises, Wheelchair Management Next Visit Focus/Plan Next Note Type Treatment Note Next Visit Plan Next tx increase wc LB support more anterior for upright TS ext posturing emphasis. Continue quadruped, tall knee, seated balance activities. POC: Continue UE and core strengthening, LE PROM and manual stretching. Transfers, mobility, LE ROM *ABATTOIR SUPERVISOR suggested: Consider sit to stander in future when has better TA and hip abd/add control.
--- NOTE | 2022-10-02 11:03 | PT.OTN ---
Current Diagnoses Paraplegia, unspecified (10/02/22) Other specified personal risk factors, not elsewhere classified (10/02/22) Other specified postprocedural states (10/02/22) Physical Therapy Treatment Note PT-OP-A Visit Information Start: 03/08/22 17:00 Freq: Status: Active Protocol: Document 10/02/22 10:19 DCW (Rec: 10/02/22 11:03 DCW [id number]) Out-Patient Physical Therapy Visit Information Visit Information Visit Type Treatment Note Visit Start Time 10:19 Visit Stop Time 11:00 Total Visit Minutes 41 Visit Number 49 Number of BIN WORKER Visits 0 Evaluation Information Evaluation Date 03/08/22 PT-OP-B Current Condition Start: 03/08/22 17:00 Freq: Status: Active Protocol: Document 03/08/22 11:15 DCW (Rec: 03/08/22 17:11 DCW [id number]) Current Condition History of Current Condition Onset Date 12/16/21 Current Complaints Paraplegia History of Current Condition Pt is a 71 year old male with a very unfortunate medical history. Pt was hiking [place] on 12/16/21 with a friend, finished up, drive back to his friend's home to drop him off, and noticed his left leg was collapsing. By the time pt drove home, both legs were giving out and numb. Pt was suddenly paralized from the waist down, was taken to the ED, and was flown to [facility] on 12/17/21. The following day, he underwent a laminectomy to relieve pressure from the thoracic epidural hematoma which had developed following his hike, which was pressing on his spinal cord. Following surgery , pt was in recovery for a week and was then transfered to rehab for 20 days, when he was finally discharged home in a wheelchair on 01/19/22. Pt reports his surgeon informed him that it is a possibility that he gets some return of nerve function. Has experienced some changes in his right LE, but has no motor function at this time from ~ T10 down. Minimal sensory return on right side, none on left. Pt has been anxious to get in to therapy and do everything he can to help return to function. Pt's , who attended his evaluation, notes that she has been doing a lot of PROM in his legs at night to keep everything moving. Pt can feel some stretching during PROM in his right leg. Pt has additionally already started occupational therapy, and has been practicing some seated stabilization. Pt transfers with a slide board, but notes it is difficult to do into his car, because he has to transfer upward at an incline. Treatment Goals Patient/Caregiver Goals I will do anything possible to get out of this wheelchair. My neurologist told me he has seen people recover from this , so I am not giving up hope. PT-OP-C Subjective Start: 03/08/22 17:00 Freq: Status: Active Protocol: Document 10/02/22 10:19 DCW (Rec: 10/02/22 11:03 DCW [id number]) OP-PT Subjective Patient Comments Patient Comments Pt reports he was stiff enough last night that he took a baclofen, notes that it really knocked me out. PT-OP-G Mobility & Gait Start: 03/08/22 17:00 Freq: Status: Active Protocol: Document 08/21/22 15:15 DCW (Rec: 08/21/22 15:38 DCW [id number]) OP Mobility Evaluation Transfers Bed to Chair Transfers Transfers using UE Wheelchair Management Type of Wheelchair Manual w/c PT-OP-H Neuro Start: 03/08/22 17:00 Freq: Status: Active Protocol: Document 08/21/22 15:15 DCW (Rec: 08/21/22 15:38 DCW [id number]) Sensation Evaluation Gross Sensation Gross Sensation Left LE Impaired,Right LE Impaired,Trunk Impaired Sensation Description Paresthesia,Numbness,Tingling, Pins & [place],Burning Dermatome Impairments L1,L2,L3,L4,L5,S1,S2,S3,S4-5 Location Details Right Leg Light Touch Impaired Sharp/Dull Impaired Deep Pressure Impaired Hot/Cold Absent Protective Sensation Absent Proprioception (Position) Impaired Kinesthesia (Movement) Impaired Two-Point Discrimination Absent Tactile Localization Impaired Stereognosis Impaired Left Leg Light Touch Absent Sharp/Dull Absent Deep Pressure Impaired Hot/Cold Absent Protective Sensation Absent Proprioception (Position) Absent Kinesthesia (Movement) Impaired Two-Point Discrimination Absent Tactile Localization Absent Stereognosis Absent Deep Tendon Reflex & Clonus Assessment Deep Tendon Reflex Right Achilles Deep Tendon Reflex 1+ Diminished Right Patellar Deep Tendon Reflex 2+ Normal Left Achilles Deep Tendon Reflex 1+ Diminished Left Patellar Deep Tendon Reflex 0 Absent Muscle Tone Tone Assessment Right Lower Extremity Flexor Tone Description Moderate Hypertonicity Extensor Tone Description Moderate Hypertonicity Left Lower Extremity Flexor Tone Description Moderate Hypertonicity Extensor Tone Description Moderate Hypertonicity PT-OP-J Posture/Palpation/Skin Start: 03/08/22 17:00 Freq: Status: Active Protocol: Document 08/21/22 15:15 DCW (Rec: 08/21/22 15:38 DCW [id number]) Posture Evaluation Comments Posture Comments Significant improvement with core control, able to resist moderate sternal push and self -correct back to sitting position with no LOB. PT-OP-M Strength Start: 08/21/22 15:38 Freq: Status: Active Protocol: Document 08/21/22 15:15 DCW (Rec: 08/21/22 15:40 DCW [id number]) Hip Strength Hip Manual Muscle Testing Right Extension (S1) 2- Poor- Adduction 2- Poor- Left Extension (S1) 1 Trace Adduction 0 Zero Knee Strength Knee Manual Muscle Testing Right Flexion (S2) 1 Trace Extension (L3) 1 Trace Left Flexion (S2) 1 Trace Extension (L3) 0 Zero PT-OP-Q Treatments Start: 03/08/22 17:00 Freq: Status: Active Protocol: Document 10/02/22 10:19 DCW (Rec: 10/02/22 11:03 DCW [id number]) Cardio Equipment Recumbent Elliptical (Biodex) Duration (Minutes) 10 Resistance 5 Seat Position 9 Other w/c<->Biodex using UEs, gait belt, Min Ax1 Gym Equipment Shuttle Recovery Bilateral Squats Details with and without UE assist Resistance 12# Reps/Time very slight, minimal movement without UE assistance Therapeutic Exercises Sitting Exercises Triceps press-up Sitting Exercise Name Triceps press-up into standing Side bilateral Reps/Minutes 5 reps on //bars Mod A Comments Assist with blocking of knees. Therapeutic Activity Therapeutic Activity sit<>cigar making supervisor //bars Name Sit<->Stand Reps/Minutes 4 reps Comments Max> Mod A x1 w/ support via gait belt at pelvis and anterior knee support R>L LE //bar height 32, width 5. Assist with blocking knees to allow for slight weight- bearing through feet. PT-OP-T Assessment and Plan Start: 03/08/22 17:00 Freq: Status: Active Protocol: Document 10/02/22 10:19 DCW (Rec: 10/02/22 11:03 [facility] [id number]) Physical Therapy Assessment Impairments Impairments Activity Tolerance,Balance, Coordination,Functional Activities,Functional Mobility ,Gait,Integument,Sensation, Soft Tissue Mobility,Strength, Tone,Transfers Goals Three Impairment Pt does not have any motor function throughout bilateral LEs Short Term Goal (STG) Pt to demonstrate 1/5 trace motor contraction in at least one quad in order to begin focus on LE mobility if neural functional return begins. STG Duration Met Bearing Ring Assembler Goal (LTG) Pt to demonstrate right quad strength to at least 2/5, demonstrating movement into ROM in an antigravity position LTG Duration 11/19/22 Two Impairment Pt struggles to perform slideboard car transfer due to upward tilt Group Home Goal (LTG) Pt to demonstrate car transfer SBA using slideboard. 07/30/22: progressing: provides support for trunk stability while pt completes transfer self using slidboard and use over head doorframe handles and car door. has to place/remove slide board. Mod A uphill onto biodex, CG/ MIn A descend off biodex use slideboard. LTG Duration 11/19/22 progressing, requires assistance One Impairment Pt does not have an appropriate home exercise program Short Term Goal (STG) Pt to be independent and compliant with an appropriate HEP 07/30/22: progressing: resisted tricep ext, OH raises in w/c, supine HABD, added scaption OH B #2. STG Duration 11/19/22 Progressing Progress Towards Goals Progress Towards Goals Slow Progress due to Medical Issues Assessment Summary Assessment Continued attempts to get true sit<->cigar making supervisor // bars, pt able to put very slight weight through LEs with assistance in blocking out knees, but due to hip flexor contracture and excessive kyphosis unable to actually get upright, LEs more at an angle sticking out in front of w/c with torso hanging over w/c Physical Therapy Plan Frequency and Duration Frequency of Treatment 2x/Week Plan of Care Start Date 08/21/22 Plan of Care End Date 11/19/22 Therapeutic Interventions Therapeutic Interventions Aquatic Therapy,Balance Training,Coordination Training ,Gait Training,Home Exercise Program,Manual Therapy, Neuromuscular Re-education, Orthotic/Prosthetic Management ,Patient/Caregiver Education, Self-Care/Home Management, Sensory Integration,Soft Tissue Mobilization, Therapeutic Activities, Therapeutic Exercises, Wheelchair Management Next Visit Focus/Plan Next Note Type Treatment Note Next Visit Plan Next tx increase wc LB support more anterior for upright TS ext posturing emphasis. Continue quadruped, tall knee, seated balance activities. POC: Continue UE and core strengthening, LE PROM and manual stretching. Transfers, mobility, LE ROM *BIN WORKER suggested: Consider sit to stander in future when has better TA and hip abd/add control.
--- NOTE | 2022-10-08 11:30 | PT.OTN ---
Current Diagnoses Paraplegia, unspecified (10/08/22) Other specified personal risk factors, not elsewhere classified (10/08/22) Other specified postprocedural states (10/08/22) Physical Therapy Treatment Note PT-OP-A Visit Information Start: 03/08/22 17:00 Freq: Status: Active Protocol: Document 10/08/22 10:50 SP (Rec: 10/08/22 11:49 SP [id number]) Out-Patient Physical Therapy Visit Information Visit Information Visit Type Treatment Note Visit Note 07/19 tx after PN Visit Start Time 10:50 Visit Stop Time 11:15 Total Visit Minutes 40 Visit Number 50 Number of PRESS TENDER SHORT GOODS Visits 1 Evaluation Information Evaluation Date 03/08/22 PT-OP-B Current Condition Start: 03/08/22 17:00 Freq: Status: Active Protocol: Document 03/08/22 11:15 DCW (Rec: 03/08/22 17:11 DCW [id number]) Current Condition History of Current Condition Onset Date 12/16/21 Current Complaints Paraplegia History of Current Condition Pt is a 71 year old male with a very unfortunate medical history. Pt was hiking [place] on 12/16/21 with a friend, finished up, drive back to his friend's home to drop him off, and noticed his left leg was collapsing. By the time pt drove home, both legs were giving out and numb. Pt was suddenly paralized from the waist down, was taken to the ED, and was flown to [facility] on 12/17/21. The following day, he underwent a laminectomy to relieve pressure from the thoracic epidural hematoma which had developed following his hike, which was pressing on his spinal cord. Following surgery , pt was in recovery for a week and was then transfered to rehab for 20 days, when he was finally discharged home in a wheelchair on 01/19/22. Pt reports his surgeon informed him that it is a possibility that he gets some return of nerve function. Has experienced some changes in his right LE, but has no motor function at this time from ~ T10 down. Minimal sensory return on right side, none on left. Pt has been anxious to get in to therapy and do everything he can to help return to function. Pt's , who attended his evaluation, notes that she has been doing a lot of PROM in his legs at night to keep everything moving. Pt can feel some stretching during PROM in his right leg. Pt has additionally already started occupational therapy, and has been practicing some seated stabilization. Pt transfers with a slide board, but notes it is difficult to do into his car, because he has to transfer upward at an incline. Treatment Goals Patient/Caregiver Goals I will do anything possible to get out of this wheelchair. My neurologist told me he has seen people recover from this , so I am not giving up hope. PT-OP-C Subjective Start: 03/08/22 17:00 Freq: Status: Active Protocol: Document 10/08/22 10:50 SP (Rec: 10/08/22 11:49 SP [id number]) OP-PT Subjective Patient Comments Patient Comments Pt reports PT-OP-G Mobility & Gait Start: 03/08/22 17:00 Freq: Status: Active Protocol: Document 08/21/22 15:15 DCW (Rec: 08/21/22 15:38 DCW [id number]) OP Mobility Evaluation Transfers Bed to Chair Transfers Transfers using UE Wheelchair Management Type of Wheelchair Manual w/c PT-OP-H Neuro Start: 03/08/22 17:00 Freq: Status: Active Protocol: Document 08/21/22 15:15 DCW (Rec: 08/21/22 15:38 DCW [id number]) Sensation Evaluation Gross Sensation Gross Sensation Left LE Impaired,Right LE Impaired,Trunk Impaired Sensation Description Paresthesia,Numbness,Tingling, Pins & [place],Burning Dermatome Impairments L1,L2,L3,L4,L5,S1,S2,S3,S4-5 Location Details Right Leg Light Touch Impaired Sharp/Dull Impaired Deep Pressure Impaired Hot/Cold Absent Protective Sensation Absent Proprioception (Position) Impaired Kinesthesia (Movement) Impaired Two-Point Discrimination Absent Tactile Localization Impaired Stereognosis Impaired Left Leg Light Touch Absent Sharp/Dull Absent Deep Pressure Impaired Hot/Cold Absent Protective Sensation Absent Proprioception (Position) Absent Kinesthesia (Movement) Impaired Two-Point Discrimination Absent Tactile Localization Absent Stereognosis Absent Deep Tendon Reflex & Clonus Assessment Deep Tendon Reflex Right Achilles Deep Tendon Reflex 1+ Diminished Right Patellar Deep Tendon Reflex 2+ Normal Left Achilles Deep Tendon Reflex 1+ Diminished Left Patellar Deep Tendon Reflex 0 Absent Muscle Tone Tone Assessment Right Lower Extremity Flexor Tone Description Moderate Hypertonicity Extensor Tone Description Moderate Hypertonicity Left Lower Extremity Flexor Tone Description Moderate Hypertonicity Extensor Tone Description Moderate Hypertonicity PT-OP-J Posture/Palpation/Skin Start: 03/08/22 17:00 Freq: Status: Active Protocol: Document 08/21/22 15:15 DCW (Rec: 08/21/22 15:38 DCW [id number]) Posture Evaluation Comments Posture Comments Significant improvement with core control, able to resist moderate sternal push and self -correct back to sitting position with no LOB. PT-OP-M Strength Start: 08/21/22 15:38 Freq: Status: Active Protocol: Document 08/21/22 15:15 DCW (Rec: 08/21/22 15:40 DCW [id number]) Hip Strength Hip Manual Muscle Testing Right Extension (S1) 2- Poor- Adduction 2- Poor- Left Extension (S1) 1 Trace Adduction 0 Zero Knee Strength Knee Manual Muscle Testing Right Flexion (S2) 1 Trace Extension (L3) 1 Trace Left Flexion (S2) 1 Trace Extension (L3) 0 Zero PT-OP-Q Treatments Start: 03/08/22 17:00 Freq: Status: Active Protocol: Document 10/08/22 10:50 SP (Rec: 10/08/22 11:49 SP [id number]) Cardio Equipment Recumbent Elliptical (Biodex) Duration (Minutes) 10 Resistance 5 Seat Position 9>8 (at 4 min) Other w/c<->Biodex using UEs, gait belt, Min Ax1 Therapeutic Activity Therapeutic Activity sit<>supervisor slashing department //bars Name Sit<->Stand (//bar height 32, width 5) Reps/Minutes 4 reps Comments Max> Mod A x1 w/ trunk support via gait belt at pelvis and anterior knee support R>L LE. Cued UE on /bar side knees, scoot edge w/c (leg rests unable remove), hip hinge fwd, downward pressure, improved trunk over BLEs weight-bearing . Pt reports all support through BUE and tricep/scap complex tires. Improved R>L LE WB 4th rep approx 20sec. tall kneel Name 12 box, blue foam roller under ankles Reps/Minutes 3 reps (SB/CGA, therapist assist box mgt) Comments Mod/Max A as reps progressed in tall kneeling, good hip and trunk ext. supine>prone>quadruped Name Mod into quadruped/ Min quad to SL, heavy pt BUE support Reps/Minutes x1 Comments upper trunk support to allow UEs to get under trunk and good UE lift into quadruped then only CGA cues for chest lift serratus press support, support/lower abdomen, good feedback low back and hip stretching sit<> supine Name L side table SBA Reps/Minutes x1 Comments sup<>sit: Min A support as needed pt uses momentum and anterior tone for self performance, ed log roll L and use core/UEs. PT-OP-T Assessment and Plan Start: 03/08/22 17:00 Freq: Status: Active Protocol: Document 10/08/22 10:50 SP (Rec: 10/08/22 11:49 SP [id number]) Physical Therapy Assessment Goals Three Impairment Pt does not have any motor function throughout bilateral LEs Short Term Goal (STG) Pt to demonstrate 1/5 trace motor contraction in at least one quad in order to begin focus on LE mobility if neural functional return begins. STG Duration Met Seam Finisher Goal (LTG) Pt to demonstrate right quad strength to at least 2/5, demonstrating movement into ROM in an antigravity position LTG Duration 11/19/22 Two Impairment Pt struggles to perform slideboard car transfer due to upward tilt Alf Goal (LTG) Pt to demonstrate car transfer SBA using slideboard. 07/30/22: progressing: provides support for trunk stability while pt completes transfer self using slidboard and use over head doorframe handles and car door. has to place/remove slide board. Mod A uphill onto biodex, CG/ MIn A descend off biodex use slideboard. LTG Duration 11/19/22 progressing, requires assistance One Impairment Pt does not have an appropriate home exercise program Short Term Goal (STG) Pt to be independent and compliant with an appropriate HEP 07/30/22: progressing: resisted tricep ext, OH raises in w/c, supine HABD, added scaption OH B #2. STG Duration 11/19/22 Progressing Assessment Summary Assessment Pt 4th atttempt standing able to decrease chantal locking BUE to allow R>L LE WB, Mod A (30% ) up to 20 sec. Mod A tall kneeling for pelvis anterior for hip extension, heavy BUE WB on 12 box. Pt reports can feel increased blood flow into BLEs and back with quadruped stretching and feels good to WB through BLEs. Physical Therapy Plan Frequency and Duration Frequency of Treatment 2x/Week Plan of Care Start Date 08/21/22 Plan of Care End Date 11/19/22 Therapeutic Interventions Therapeutic Interventions Aquatic Therapy,Balance Training,Coordination Training ,Gait Training,Home Exercise Program,Manual Therapy, Neuromuscular Re-education, Orthotic/Prosthetic Management ,Patient/Caregiver Education, Self-Care/Home Management, Sensory Integration,Soft Tissue Mobilization, Therapeutic Activities, Therapeutic Exercises, Wheelchair Management Next Visit Focus/Plan Next Note Type Treatment Note Next Visit Plan Next tx increase wc LB support more anterior for upright TS ext posturing emphasis. Continue quadruped, tall knee, seated balance activities. POC: Continue UE and core strengthening, LE PROM and manual stretching. Transfers, mobility, LE ROM *PRESS TENDER SHORT GOODS suggested: Consider sit to stander in future when has better TA and hip abd/add control.
--- NOTE | 2022-10-10 11:00 | PT.OTN ---
Current Diagnoses Paraplegia, unspecified (10/10/22) Other specified personal risk factors, not elsewhere classified (10/10/22) Other specified postprocedural states (10/10/22) Physical Therapy Treatment Note PT-OP-A Visit Information Start: 03/08/22 17:00 Freq: Status: Active Protocol: Document 10/10/22 10:18 DCW (Rec: 10/10/22 11:00 DCW [id number]) Out-Patient Physical Therapy Visit Information Visit Information Visit Type Treatment Note Visit Start Time 10:18 Visit Stop Time 11:00 Total Visit Minutes 42 Visit Number 51 Number of MAGNETIC RESONANCE TECHNOLOGIST Visits 0 Evaluation Information Evaluation Date 03/08/22 PT-OP-B Current Condition Start: 03/08/22 17:00 Freq: Status: Active Protocol: Document 03/08/22 11:15 DCW (Rec: 03/08/22 17:11 DCW [id number]) Current Condition History of Current Condition Onset Date 12/16/21 Current Complaints Paraplegia History of Current Condition Pt is a 71 year old male with a very unfortunate medical history. Pt was hiking [employer] on 12/16/21 with a friend, finished up, drive back to his friend's home to drop him off, and noticed his left leg was collapsing. By the time pt drove home, both legs were giving out and numb. Pt was suddenly paralized from the waist down, was taken to the ED, and was flown to [facility] on 12/17/21. The following day, he underwent a laminectomy to relieve pressure from the thoracic epidural hematoma which had developed following his hike, which was pressing on his spinal cord. Following surgery , pt was in recovery for a week and was then transfered to rehab for 20 days, when he was finally discharged home in a wheelchair on 01/19/22. Pt reports his surgeon informed him that it is a possibility that he gets some return of nerve function. Has experienced some changes in his right LE, but has no motor function at this time from ~ T10 down. Minimal sensory return on right side, none on left. Pt has been anxious to get in to therapy and do everything he can to help return to function. Pt's , who attended his evaluation, notes that she has been doing a lot of PROM in his legs at night to keep everything moving. Pt can feel some stretching during PROM in his right leg. Pt has additionally already started occupational therapy, and has been practicing some seated stabilization. Pt transfers with a slide board, but notes it is difficult to do into his car, because he has to transfer upward at an incline. Treatment Goals Patient/Caregiver Goals I will do anything possible to get out of this wheelchair. My neurologist told me he has seen people recover from this , so I am not giving up hope. PT-OP-C Subjective Start: 03/08/22 17:00 Freq: Status: Active Protocol: Document 10/10/22 10:18 DCW (Rec: 10/10/22 11:00 DCW [id number]) OP-PT Subjective Patient Comments Patient Comments Pt still noting a lot of stiffness, feels his hip adduction is increasing in tone PT-OP-G Mobility & Gait Start: 03/08/22 17:00 Freq: Status: Active Protocol: Document 08/21/22 15:15 DCW (Rec: 08/21/22 15:38 DCW [id number]) OP Mobility Evaluation Transfers Bed to Chair Transfers Transfers using UE Wheelchair Management Type of Wheelchair Manual w/c PT-OP-H Neuro Start: 03/08/22 17:00 Freq: Status: Active Protocol: Document 08/21/22 15:15 DCW (Rec: 08/21/22 15:38 DCW [id number]) Sensation Evaluation Gross Sensation Gross Sensation Left LE Impaired,Right LE Impaired,Trunk Impaired Sensation Description Paresthesia,Numbness,Tingling, Pins & [place],Burning Dermatome Impairments L1,L2,L3,L4,L5,S1,S2,S3,S4-5 Location Details Right Leg Light Touch Impaired Sharp/Dull Impaired Deep Pressure Impaired Hot/Cold Absent Protective Sensation Absent Proprioception (Position) Impaired Kinesthesia (Movement) Impaired Two-Point Discrimination Absent Tactile Localization Impaired Stereognosis Impaired Left Leg Light Touch Absent Sharp/Dull Absent Deep Pressure Impaired Hot/Cold Absent Protective Sensation Absent Proprioception (Position) Absent Kinesthesia (Movement) Impaired Two-Point Discrimination Absent Tactile Localization Absent Stereognosis Absent Deep Tendon Reflex & Clonus Assessment Deep Tendon Reflex Right Achilles Deep Tendon Reflex 1+ Diminished Right Patellar Deep Tendon Reflex 2+ Normal Left Achilles Deep Tendon Reflex 1+ Diminished Left Patellar Deep Tendon Reflex 0 Absent Muscle Tone Tone Assessment Right Lower Extremity Flexor Tone Description Moderate Hypertonicity Extensor Tone Description Moderate Hypertonicity Left Lower Extremity Flexor Tone Description Moderate Hypertonicity Extensor Tone Description Moderate Hypertonicity PT-OP-J Posture/Palpation/Skin Start: 03/08/22 17:00 Freq: Status: Active Protocol: Document 08/21/22 15:15 DCW (Rec: 08/21/22 15:38 DCW [id number]) Posture Evaluation Comments Posture Comments Significant improvement with core control, able to resist moderate sternal push and self -correct back to sitting position with no LOB. PT-OP-M Strength Start: 08/21/22 15:38 Freq: Status: Active Protocol: Document 08/21/22 15:15 DCW (Rec: 08/21/22 15:40 DCW [id number]) Hip Strength Hip Manual Muscle Testing Right Extension (S1) 2- Poor- Adduction 2- Poor- Left Extension (S1) 1 Trace Adduction 0 Zero Knee Strength Knee Manual Muscle Testing Right Flexion (S2) 1 Trace Extension (L3) 1 Trace Left Flexion (S2) 1 Trace Extension (L3) 0 Zero PT-OP-Q Treatments Start: 03/08/22 17:00 Freq: Status: Active Protocol: Document 10/10/22 10:18 DCW (Rec: 10/10/22 11:00 DCW [id number]) Gym Equipment Shuttle Recovery Bilateral Squats Details with and without UE assist Resistance 12# Reps/Time very slight, minimal movement without UE assistance Therapeutic Activity Therapeutic Activity sit<>marketing ambassador //bars Name Sit<->Stand Reps/Minutes 5 reps Comments Max> Mod A x1 w/ support via gait belt at pelvis and anterior knee support R>L LE //bar height 32, width 5. Ball between ankles to limit scissoring Assist with blocking knees to allow for slight weight- bearing through feet. Seated Stabilization Name Reaching for target seated EOB outside COG Comments Stabilization against perturbation Slide Board Transfer Name To and from Leg press(wc)- SBT - shuttle recovery Reps/Minutes 4 Comments Min A for trunk support but blocking knees as leg press up hill to wc PT-OP-T Assessment and Plan Start: 03/08/22 17:00 Freq: Status: Active Protocol: Document 10/10/22 10:18 DCW (Rec: 10/10/22 11:00 DCW [id number]) Physical Therapy Assessment Impairments Impairments Activity Tolerance,Balance, Coordination,Functional Activities,Functional Mobility ,Gait,Integument,Sensation, Soft Tissue Mobility,Strength, Tone,Transfers Goals Three Impairment Pt does not have any motor function throughout bilateral LEs Short Term Goal (STG) Pt to demonstrate 1/5 trace motor contraction in at least one quad in order to begin focus on LE mobility if neural functional return begins. STG Duration Met Patent Legal Assistant Goal (LTG) Pt to demonstrate right quad strength to at least 2/5, demonstrating movement into ROM in an antigravity position LTG Duration 11/19/22 Two Impairment Pt struggles to perform slideboard car transfer due to upward tilt Fdc Goal (LTG) Pt to demonstrate car transfer SBA using slideboard. 07/30/22: progressing: provides support for trunk stability while pt completes transfer self using slidboard and use over head doorframe handles and car door. has to place/remove slide board. Mod A uphill onto biodex, CG/ MIn A descend off biodex use slideboard. LTG Duration 11/19/22 progressing, requires assistance One Impairment Pt does not have an appropriate home exercise program Short Term Goal (STG) Pt to be independent and compliant with an appropriate HEP 07/30/22: progressing: resisted tricep ext, OH raises in w/c, supine HABD, added scaption OH B #2. STG Duration 11/19/22 Progressing Progress Towards Goals Progress Towards Goals Slow Progress due to Medical Issues Assessment Summary Assessment // bar sit<->stands, actually able to put some minor weight through his legs today, noted core contraction with leaning and reaching seated EOB. Physical Therapy Plan Frequency and Duration Frequency of Treatment 2x/Week Plan of Care Start Date 08/21/22 Plan of Care End Date 11/19/22 Therapeutic Interventions Therapeutic Interventions Aquatic Therapy,Balance Training,Coordination Training ,Gait Training,Home Exercise Program,Manual Therapy, Neuromuscular Re-education, Orthotic/Prosthetic Management ,Patient/Caregiver Education, Self-Care/Home Management, Sensory Integration,Soft Tissue Mobilization, Therapeutic Activities, Therapeutic Exercises, Wheelchair Management Next Visit Focus/Plan Next Note Type Treatment Note Next Visit Plan Next tx increase wc LB support more anterior for upright TS ext posturing emphasis. Continue quadruped, tall knee, seated balance activities. POC: Continue UE and core strengthening, LE PROM and manual stretching. Transfers, mobility, LE ROM *MAGNETIC RESONANCE TECHNOLOGIST suggested: Consider sit to stander in future when has better TA and hip abd/add control.
--- NOTE | 2022-10-15 13:45 | PT.OTN ---
Current Diagnoses Paraplegia, unspecified (10/15/22) Other specified personal risk factors, not elsewhere classified (10/15/22) Other specified postprocedural states (10/15/22) Physical Therapy Treatment Note PT-OP-A Visit Information Start: 03/08/22 17:00 Freq: Status: Active Protocol: Document 10/15/22 13:05 SP (Rec: 10/15/22 14:12 SP [id number]) Out-Patient Physical Therapy Visit Information Visit Information Visit Type Treatment Note Visit Note Student PT Lea assist as 2nd person assist with pt and CONCRETE ENGINEERING TECHNICIAN Philomena during tx with pt permission and under direct supervision and direction of CONCRETE ENGINEERING TECHNICIAN Philomena. Pt 5 min late for appt. Visit Start Time 13:05 Visit Stop Time 13:45 Total Visit Minutes 40 Visit Number 52 Number of CONCRETE ENGINEERING TECHNICIAN Visits 1 Evaluation Information Evaluation Date 03/08/22 PT-OP-B Current Condition Start: 03/08/22 17:00 Freq: Status: Active Protocol: Document 03/08/22 11:15 DCW (Rec: 03/08/22 17:11 DCW [id number]) Current Condition History of Current Condition Onset Date 12/16/21 Current Complaints Paraplegia History of Current Condition Pt is a 71 year old male with a very unfortunate medical history. Pt was hiking [employer] on 12/16/21 with a friend, finished up, drive back to his friend's home to drop him off, and noticed his left leg was collapsing. By the time pt drove home, both legs were giving out and numb. Pt was suddenly paralized from the waist down, was taken to the ED, and was flown to [facility] on 12/17/21. The following day, he underwent a laminectomy to relieve pressure from the thoracic epidural hematoma which had developed following his hike, which was pressing on his spinal cord. Following surgery , pt was in recovery for a week and was then transfered to rehab for 20 days, when he was finally discharged home in a wheelchair on 01/19/22. Pt reports his surgeon informed him that it is a possibility that he gets some return of nerve function. Has experienced some changes in his right LE, but has no motor function at this time from ~ T10 down. Minimal sensory return on right side, none on left. Pt has been anxious to get in to therapy and do everything he can to help return to function. Pt's , who attended his evaluation, notes that she has been doing a lot of PROM in his legs at night to keep everything moving. Pt can feel some stretching during PROM in his right leg. Pt has additionally already started occupational therapy, and has been practicing some seated stabilization. Pt transfers with a slide board, but notes it is difficult to do into his car, because he has to transfer upward at an incline. Treatment Goals Patient/Caregiver Goals I will do anything possible to get out of this wheelchair. My neurologist told me he has seen people recover from this , so I am not giving up hope. PT-OP-C Subjective Start: 03/08/22 17:00 Freq: Status: Active Protocol: Document 10/15/22 13:05 SP (Rec: 10/15/22 14:12 SP [id number]) OP-PT Subjective Patient Comments Patient Comments Pt reports pretty stiff today, getting alot tone especially during the night, legs get tangled together. PT-OP-G Mobility & Gait Start: 03/08/22 17:00 Freq: Status: Active Protocol: Document 08/21/22 15:15 DCW (Rec: 08/21/22 15:38 DCW [id number]) OP Mobility Evaluation Transfers Bed to Chair Transfers Transfers using UE Wheelchair Management Type of Wheelchair Manual w/c PT-OP-H Neuro Start: 03/08/22 17:00 Freq: Status: Active Protocol: Document 08/21/22 15:15 DCW (Rec: 08/21/22 15:38 DCW [id number]) Sensation Evaluation Gross Sensation Gross Sensation Left LE Impaired,Right LE Impaired,Trunk Impaired Sensation Description Paresthesia,Numbness,Tingling, Pins & [place],Burning Dermatome Impairments L1,L2,L3,L4,L5,S1,S2,S3,S4-5 Location Details Right Leg Light Touch Impaired Sharp/Dull Impaired Deep Pressure Impaired Hot/Cold Absent Protective Sensation Absent Proprioception (Position) Impaired Kinesthesia (Movement) Impaired Two-Point Discrimination Absent Tactile Localization Impaired Stereognosis Impaired Left Leg Light Touch Absent Sharp/Dull Absent Deep Pressure Impaired Hot/Cold Absent Protective Sensation Absent Proprioception (Position) Absent Kinesthesia (Movement) Impaired Two-Point Discrimination Absent Tactile Localization Absent Stereognosis Absent Deep Tendon Reflex & Clonus Assessment Deep Tendon Reflex Right Achilles Deep Tendon Reflex 1+ Diminished Right Patellar Deep Tendon Reflex 2+ Normal Left Achilles Deep Tendon Reflex 1+ Diminished Left Patellar Deep Tendon Reflex 0 Absent Muscle Tone Tone Assessment Right Lower Extremity Flexor Tone Description Moderate Hypertonicity Extensor Tone Description Moderate Hypertonicity Left Lower Extremity Flexor Tone Description Moderate Hypertonicity Extensor Tone Description Moderate Hypertonicity PT-OP-J Posture/Palpation/Skin Start: 03/08/22 17:00 Freq: Status: Active Protocol: Document 08/21/22 15:15 DCW (Rec: 08/21/22 15:38 DCW [id number]) Posture Evaluation Comments Posture Comments Significant improvement with core control, able to resist moderate sternal push and self -correct back to sitting position with no LOB. PT-OP-M Strength Start: 08/21/22 15:38 Freq: Status: Active Protocol: Document 08/21/22 15:15 DCW (Rec: 08/21/22 15:40 DCW [id number]) Hip Strength Hip Manual Muscle Testing Right Extension (S1) 2- Poor- Adduction 2- Poor- Left Extension (S1) 1 Trace Adduction 0 Zero Knee Strength Knee Manual Muscle Testing Right Flexion (S2) 1 Trace Extension (L3) 1 Trace Left Flexion (S2) 1 Trace Extension (L3) 0 Zero PT-OP-Q Treatments Start: 03/08/22 17:00 Freq: Status: Active Protocol: Document 10/15/22 13:05 SP (Rec: 10/15/22 14:12 SP [id number]) Gym Equipment Shuttle Recovery Bilateral Squats Details without and with BUE assist on thighs LE ext Resistance 12# Reps/Time approx 1/4 movement of shuttle, cued breath/relax allow flex Therapeutic Activity Therapeutic Activity sit<>package dye stand loader //bars Name Sit<->Stand (//bar height 32, width 5) Reps/Minutes 5 reps Comments Min> Max A x1 w/ support via gait belt at pelvis and anterior knee support R>L LEs. Ball/therapist foot between ankles to limit scissoring. Assist with blocking knees to allow for slight weight- bearing through feet. tall kneel Name 12 box, blue foam roller under ankles Reps/Minutes 4 reps (therapist assist box mgt) Comments Min>Max A as reps progressed in tall kneeling, good hip and trunk ext. supine>prone>quadruped Name Mod into quadruped/ Min quad to SL, heavy pt BUE support Reps/Minutes x1 Comments upper trunk support to allow UEs to get under trunk and good UE lift into quadruped then only CGA cues for chest lift serratus press support, support/lower abdomen, good feedback low back and hip stretching sit<> supine Reps/Minutes x1 Comments SBA with cued utilizing core/ scapular completed for trunk righting less tone momentum recruitment. PT-OP-T Assessment and Plan Start: 03/08/22 17:00 Freq: Status: Active Protocol: Document 10/15/22 13:05 SP (Rec: 10/15/22 14:12 SP [id number]) Physical Therapy Assessment Goals Three Impairment Pt does not have any motor function throughout bilateral LEs Short Term Goal (STG) Pt to demonstrate 1/5 trace motor contraction in at least one quad in order to begin focus on LE mobility if neural functional return begins. STG Duration Met Press Clippings Cutter And Paster Goal (LTG) Pt to demonstrate right quad strength to at least 2/5, demonstrating movement into ROM in an antigravity position LTG Duration 11/19/22 Two Impairment Pt struggles to perform slideboard car transfer due to upward tilt Press Clippings Cutter And Paster Goal (LTG) Pt to demonstrate car transfer SBA using slideboard. 07/30/22: progressing: provides support for trunk stability while pt completes transfer self using slidboard and use over head doorframe handles and car door. has to place/remove slide board. Mod A uphill onto biodex, CG/ MIn A descend off biodex use slideboard. LTG Duration 11/19/22 progressing, requires assistance One Impairment Pt does not have an appropriate home exercise program Short Term Goal (STG) Pt to be independent and compliant with an appropriate HEP 07/30/22: progressing: resisted tricep ext, OH raises in w/c, supine HABD, added scaption OH B #2. STG Duration 11/19/22 Progressing Assessment Summary Assessment Pt demonstrated ability to initiate shuttle recovery LE ext 1/4 inch each 5 reps then assist BUE into full extension this tx. Continues to put some minor weight through BLEs today in standing at //bars. Physical Therapy Plan Frequency and Duration Frequency of Treatment 2x/Week Plan of Care Start Date 08/21/22 Plan of Care End Date 11/19/22 Therapeutic Interventions Therapeutic Interventions Aquatic Therapy,Balance Training,Coordination Training ,Gait Training,Home Exercise Program,Manual Therapy, Neuromuscular Re-education, Orthotic/Prosthetic Management ,Patient/Caregiver Education, Self-Care/Home Management, Sensory Integration,Soft Tissue Mobilization, Therapeutic Activities, Therapeutic Exercises, Wheelchair Management Next Visit Focus/Plan Next Note Type Treatment Note Next Visit Plan Next tx assess if pt would benefit from wc LB support more anterior to support upright TS ext posturing emphasis. Continue quadruped, tall knee, standing in //bars, seated balance activities. POC: Continue UE and core strengthening, LE PROM and manual stretching. Transfers, mobility, LE ROM *CONCRETE ENGINEERING TECHNICIAN suggested: Consider sit to stander in future when has better TA and hip abd/add control.
--- NOTE | 2022-10-17 14:15 | PT.OTN ---
Current Diagnoses Paraplegia, unspecified (10/17/22) Other specified personal risk factors, not elsewhere classified (10/17/22) Other specified postprocedural states (10/17/22) Physical Therapy Treatment Note PT-OP-A Visit Information Start: 03/08/22 17:00 Freq: Status: Active Protocol: Document 10/17/22 13:34 SP (Rec: 10/17/22 14:18 SP [id number]) Out-Patient Physical Therapy Visit Information Visit Information Visit Type Treatment Note Visit Start Time 13:34 Visit Stop Time 14:15 Total Visit Minutes 41 Visit Number 53 Number of MANAGER COLLEGE Visits 2 Evaluation Information Evaluation Date 03/08/22 PT-OP-B Current Condition Start: 03/08/22 17:00 Freq: Status: Active Protocol: Document 03/08/22 11:15 DCW (Rec: 03/08/22 17:11 DCW [id number]) Current Condition History of Current Condition Onset Date 12/16/21 Current Complaints Paraplegia History of Current Condition Pt is a 71 year old male with a very unfortunate medical history. Pt was hiking [employer] on 12/16/21 with a friend, finished up, drive back to his friend's home to drop him off, and noticed his left leg was collapsing. By the time pt drove home, both legs were giving out and numb. Pt was suddenly paralized from the waist down, was taken to the ED, and was flown to [facility] on 12/17/21. The following day, he underwent a laminectomy to relieve pressure from the thoracic epidural hematoma which had developed following his hike, which was pressing on his spinal cord. Following surgery , pt was in recovery for a week and was then transfered to rehab for 20 days, when he was finally discharged home in a wheelchair on 01/19/22. Pt reports his surgeon informed him that it is a possibility that he gets some return of nerve function. Has experienced some changes in his right LE, but has no motor function at this time from ~ T10 down. Minimal sensory return on right side, none on left. Pt has been anxious to get in to therapy and do everything he can to help return to function. Pt's , who attended his evaluation, notes that she has been doing a lot of PROM in his legs at night to keep everything moving. Pt can feel some stretching during PROM in his right leg. Pt has additionally already started occupational therapy, and has been practicing some seated stabilization. Pt transfers with a slide board, but notes it is difficult to do into his car, because he has to transfer upward at an incline. Treatment Goals Patient/Caregiver Goals I will do anything possible to get out of this wheelchair. My neurologist told me he has seen people recover from this , so I am not giving up hope. PT-OP-C Subjective Start: 03/08/22 17:00 Freq: Status: Active Protocol: Document 10/17/22 13:34 SP (Rec: 10/17/22 14:18 SP [id number]) OP-PT Subjective Patient Comments Patient Comments Pt nothing new to report. PT-OP-G Mobility & Gait Start: 03/08/22 17:00 Freq: Status: Active Protocol: Document 08/21/22 15:15 DCW (Rec: 08/21/22 15:38 DCW [id number]) OP Mobility Evaluation Transfers Bed to Chair Transfers Transfers using UE Wheelchair Management Type of Wheelchair Manual w/c PT-OP-H Neuro Start: 03/08/22 17:00 Freq: Status: Active Protocol: Document 08/21/22 15:15 DCW (Rec: 08/21/22 15:38 DCW [id number]) Sensation Evaluation Gross Sensation Gross Sensation Left LE Impaired,Right LE Impaired,Trunk Impaired Sensation Description Paresthesia,Numbness,Tingling, Pins & [place],Burning Dermatome Impairments L1,L2,L3,L4,L5,S1,S2,S3,S4-5 Location Details Right Leg Light Touch Impaired Sharp/Dull Impaired Deep Pressure Impaired Hot/Cold Absent Protective Sensation Absent Proprioception (Position) Impaired Kinesthesia (Movement) Impaired Two-Point Discrimination Absent Tactile Localization Impaired Stereognosis Impaired Left Leg Light Touch Absent Sharp/Dull Absent Deep Pressure Impaired Hot/Cold Absent Protective Sensation Absent Proprioception (Position) Absent Kinesthesia (Movement) Impaired Two-Point Discrimination Absent Tactile Localization Absent Stereognosis Absent Deep Tendon Reflex & Clonus Assessment Deep Tendon Reflex Right Achilles Deep Tendon Reflex 1+ Diminished Right Patellar Deep Tendon Reflex 2+ Normal Left Achilles Deep Tendon Reflex 1+ Diminished Left Patellar Deep Tendon Reflex 0 Absent Muscle Tone Tone Assessment Right Lower Extremity Flexor Tone Description Moderate Hypertonicity Extensor Tone Description Moderate Hypertonicity Left Lower Extremity Flexor Tone Description Moderate Hypertonicity Extensor Tone Description Moderate Hypertonicity PT-OP-J Posture/Palpation/Skin Start: 03/08/22 17:00 Freq: Status: Active Protocol: Document 08/21/22 15:15 DCW (Rec: 08/21/22 15:38 DCW [id number]) Posture Evaluation Comments Posture Comments Significant improvement with core control, able to resist moderate sternal push and self -correct back to sitting position with no LOB. PT-OP-M Strength Start: 08/21/22 15:38 Freq: Status: Active Protocol: Document 08/21/22 15:15 DCW (Rec: 08/21/22 15:40 DCW [id number]) Hip Strength Hip Manual Muscle Testing Right Extension (S1) 2- Poor- Adduction 2- Poor- Left Extension (S1) 1 Trace Adduction 0 Zero Knee Strength Knee Manual Muscle Testing Right Flexion (S2) 1 Trace Extension (L3) 1 Trace Left Flexion (S2) 1 Trace Extension (L3) 0 Zero PT-OP-Q Treatments Start: 03/08/22 17:00 Freq: Status: Active Protocol: Document 10/17/22 13:34 SP (Rec: 10/17/22 14:18 SP [id number]) Gym Equipment Shuttle Recovery Bilateral Squats Details without and with BUE assist on thighs LE ext Resistance 12# Reps/Time approx 1/4 movement of shuttle, breath assist flex, able quick ext's x3 Therapeutic Activity Therapeutic Activity sit<>advertising account representative //bars Name Sit<->Stand (//bar height 32, width 5) Reps/Minutes 5 reps Comments Min> Max A x1 w/ support via gait belt at pelvis and anterior knee support R>L LEs. Ball/therapist foot between ankles to limit scissoring. Assist with blocking knees to allow for slight weight- bearing through feet. Seated Stabilization Name Reaching for target seated EOB outside COG Comments Stabilization against perturbation squat/lateral scoot transfer Name wc<> shuttle recovery Reps/Minutes 1 Slide Board Transfer Name To and from Leg press(wc)- SBT - shuttle recovery Reps/Minutes 1 Comments Min A up hill w/ slide board, able place self, remove assist , CGA descend to wc PT-OP-T Assessment and Plan Start: 03/08/22 17:00 Freq: Status: Active Protocol: Document 10/17/22 13:34 SP (Rec: 10/17/22 14:18 SP [id number]) Physical Therapy Assessment Goals Three Impairment Pt does not have any motor function throughout bilateral LEs Short Term Goal (STG) Pt to demonstrate 1/5 trace motor contraction in at least one quad in order to begin focus on LE mobility if neural functional return begins. STG Duration Met Manufacturing Software Engineer Goal (LTG) Pt to demonstrate right quad strength to at least 2/5, demonstrating movement into ROM in an antigravity position LTG Duration 11/19/22 Two Impairment Pt struggles to perform slideboard car transfer due to upward tilt Prison Goal (LTG) Pt to demonstrate car transfer SBA using slideboard. 07/30/22: progressing: provides support for trunk stability while pt completes transfer self using slidboard and use over head doorframe handles and car door. has to place/remove slide board. Mod A uphill onto biodex, CG/ MIn A descend off biodex use slideboard. LTG Duration 11/19/22 progressing, requires assistance One Impairment Pt does not have an appropriate home exercise program Short Term Goal (STG) Pt to be independent and compliant with an appropriate HEP 07/30/22: progressing: resisted tricep ext, OH raises in w/c, supine HABD, added scaption OH B #2. STG Duration 11/19/22 Progressing Assessment Summary Assessment Pt improved reaching laterally outside KIARA seated with no UE support, times uses momentum. Improved quad and glut fac of repeated LE extension presses at top range then relax to allow flexion passive x3 reps before tires approx 1/4 . Physical Therapy Plan Frequency and Duration Frequency of Treatment 2x/Week Plan of Care Start Date 08/21/22 Plan of Care End Date 11/19/22 Therapeutic Interventions Therapeutic Interventions Aquatic Therapy,Balance Training,Coordination Training ,Gait Training,Home Exercise Program,Manual Therapy, Neuromuscular Re-education, Orthotic/Prosthetic Management ,Patient/Caregiver Education, Self-Care/Home Management, Sensory Integration,Soft Tissue Mobilization, Therapeutic Activities, Therapeutic Exercises, Wheelchair Management Next Visit Focus/Plan Next Note Type Treatment Note Next Visit Plan Continue encourage quad/glut fac shuttle press start range and quick presses top range. Assess if pt would benefit from wc LB support more anterior to support upright TS ext posturing emphasis. Continue quadruped, tall knee, standing in //bars, seated balance activities. POC: Continue UE and core strengthening, LE PROM and manual stretching. Transfers, mobility, LE ROM *MANAGER COLLEGE suggested: Consider sit to stander in future when has better TA and hip abd/add control.
--- NOTE | 2022-10-22 13:31 | PT.OTN ---
Current Diagnoses Paraplegia, unspecified (10/22/22) Other specified personal risk factors, not elsewhere classified (10/22/22) Other specified postprocedural states (10/22/22) Physical Therapy Treatment Note PT-OP-A Visit Information Start: 03/08/22 17:00 Freq: Status: Active Protocol: Document 10/22/22 12:53 SP (Rec: 10/22/22 13:39 SP [id number]) Out-Patient Physical Therapy Visit Information Visit Information Visit Type Treatment Note Visit Note pt 8 min late for appt Visit Start Time 12:53 Visit Stop Time 13:31 Total Visit Minutes 38 Visit Number 54 Number of HOT AIR FURNACE INSTALLER REPAIRER Visits 3 Evaluation Information Evaluation Date 03/08/22 PT-OP-B Current Condition Start: 03/08/22 17:00 Freq: Status: Active Protocol: Document 03/08/22 11:15 DCW (Rec: 03/08/22 17:11 DCW [id number]) Current Condition History of Current Condition Onset Date 12/16/21 Current Complaints Paraplegia History of Current Condition Pt is a 71 year old male with a very unfortunate medical history. Pt was hiking [place] on 12/16/21 with a friend, finished up, drive back to his friend's home to drop him off, and noticed his left leg was collapsing. By the time pt drove home, both legs were giving out and numb. Pt was suddenly paralized from the waist down, was taken to the ED, and was flown to [facility] on 12/17/21. The following day, he underwent a laminectomy to relieve pressure from the thoracic epidural hematoma which had developed following his hike, which was pressing on his spinal cord. Following surgery , pt was in recovery for a week and was then transfered to rehab for 20 days, when he was finally discharged home in a wheelchair on 01/19/22. Pt reports his surgeon informed him that it is a possibility that he gets some return of nerve function. Has experienced some changes in his right LE, but has no motor function at this time from ~ T10 down. Minimal sensory return on right side, none on left. Pt has been anxious to get in to therapy and do everything he can to help return to function. Pt's , who attended his evaluation, notes that she has been doing a lot of PROM in his legs at night to keep everything moving. Pt can feel some stretching during PROM in his right leg. Pt has additionally already started occupational therapy, and has been practicing some seated stabilization. Pt transfers with a slide board, but notes it is difficult to do into his car, because he has to transfer upward at an incline. Treatment Goals Patient/Caregiver Goals I will do anything possible to get out of this wheelchair. My neurologist told me he has seen people recover from this , so I am not giving up hope. PT-OP-C Subjective Start: 03/08/22 17:00 Freq: Status: Active Protocol: Document 10/22/22 12:53 SP (Rec: 10/22/22 13:39 SP [id number]) OP-PT Subjective Patient Comments Patient Comments Pt nothing new to report. PT-OP-G Mobility & Gait Start: 03/08/22 17:00 Freq: Status: Active Protocol: Document 08/21/22 15:15 DCW (Rec: 08/21/22 15:38 DCW [id number]) OP Mobility Evaluation Transfers Bed to Chair Transfers Transfers using UE Wheelchair Management Type of Wheelchair Manual w/c PT-OP-H Neuro Start: 03/08/22 17:00 Freq: Status: Active Protocol: Document 08/21/22 15:15 DCW (Rec: 08/21/22 15:38 DCW [id number]) Sensation Evaluation Gross Sensation Gross Sensation Left LE Impaired,Right LE Impaired,Trunk Impaired Sensation Description Paresthesia,Numbness,Tingling, Pins & [place],Burning Dermatome Impairments L1,L2,L3,L4,L5,S1,S2,S3,S4-5 Location Details Right Leg Light Touch Impaired Sharp/Dull Impaired Deep Pressure Impaired Hot/Cold Absent Protective Sensation Absent Proprioception (Position) Impaired Kinesthesia (Movement) Impaired Two-Point Discrimination Absent Tactile Localization Impaired Stereognosis Impaired Left Leg Light Touch Absent Sharp/Dull Absent Deep Pressure Impaired Hot/Cold Absent Protective Sensation Absent Proprioception (Position) Absent Kinesthesia (Movement) Impaired Two-Point Discrimination Absent Tactile Localization Absent Stereognosis Absent Deep Tendon Reflex & Clonus Assessment Deep Tendon Reflex Right Achilles Deep Tendon Reflex 1+ Diminished Right Patellar Deep Tendon Reflex 2+ Normal Left Achilles Deep Tendon Reflex 1+ Diminished Left Patellar Deep Tendon Reflex 0 Absent Muscle Tone Tone Assessment Right Lower Extremity Flexor Tone Description Moderate Hypertonicity Extensor Tone Description Moderate Hypertonicity Left Lower Extremity Flexor Tone Description Moderate Hypertonicity Extensor Tone Description Moderate Hypertonicity PT-OP-J Posture/Palpation/Skin Start: 03/08/22 17:00 Freq: Status: Active Protocol: Document 08/21/22 15:15 DCW (Rec: 08/21/22 15:38 DCW [id number]) Posture Evaluation Comments Posture Comments Significant improvement with core control, able to resist moderate sternal push and self -correct back to sitting position with no LOB. PT-OP-M Strength Start: 08/21/22 15:38 Freq: Status: Active Protocol: Document 08/21/22 15:15 DCW (Rec: 08/21/22 15:40 DCW [id number]) Hip Strength Hip Manual Muscle Testing Right Extension (S1) 2- Poor- Adduction 2- Poor- Left Extension (S1) 1 Trace Adduction 0 Zero Knee Strength Knee Manual Muscle Testing Right Flexion (S2) 1 Trace Extension (L3) 1 Trace Left Flexion (S2) 1 Trace Extension (L3) 0 Zero PT-OP-Q Treatments Start: 03/08/22 17:00 Freq: Status: Active Protocol: Document 10/22/22 12:53 SP (Rec: 10/22/22 13:39 SP [id number]) Therapeutic Exercises Supine Exercises Hip Flexor Stretch Supine Exercise Name Hip Flexor Stretch (LE extension) Side bilateral Resistance facilitation thru diaphram & lat chest-pt taught to self do Equipment Used improved decrease tone w/ breathwork Reps/Minutes 5 min Comments putting hip and knee into increased extension with over press ant thigh Other Exercises quadruped child's pose Other Exercise Name quadruped child's pose Reps/Minutes 2 min Comments cued reach UEs out front Therapeutic Activity Therapeutic Activity sit<>remote encoding operations supervisor //bars Name Sit<->Stand (//bar height 32, width 5) Reps/Minutes 5 reps Comments To come to stand Max A x1 w/ support via gait belt at waist and anterior knee support R>L LEs, CG- 10% A in standing. Ball between ankles to limit scissoring. Contact and verbal feedback for decrease tricep to allow weight-bearing through feet. tall kneel Name 12 box, blue foam roller under ankles Reps/Minutes 4 reps (therapist assist box mgt) Comments CG-Min A as reps to come to tall kneeling, good hip and trunk ext. CGA for safety maintain tall kneel. Seated Stabilization Name Reaching for target seated EOB outside COG Comments Stabilization against perturbation PT-OP-T Assessment and Plan Start: 03/08/22 17:00 Freq: Status: Active Protocol: Document 10/22/22 12:53 SP (Rec: 10/22/22 13:39 SP [id number]) Physical Therapy Assessment Goals Three Impairment Pt does not have any motor function throughout bilateral LEs Short Term Goal (STG) Pt to demonstrate 1/5 trace motor contraction in at least one quad in order to begin focus on LE mobility if neural functional return begins. STG Duration Met Half-Way Goal (LTG) Pt to demonstrate right quad strength to at least 2/5, demonstrating movement into ROM in an antigravity position LTG Duration 11/19/22 Two Impairment Pt struggles to perform slideboard car transfer due to upward tilt Half-Way Goal (LTG) Pt to demonstrate car transfer SBA using slideboard. 07/30/22: progressing: provides support for trunk stability while pt completes transfer self using slidboard and use over head doorframe handles and car door. has to place/remove slide board. Mod A uphill onto biodex, CG/ MIn A descend off biodex use slideboard. LTG Duration 11/19/22 progressing, requires assistance One Impairment Pt does not have an appropriate home exercise program Short Term Goal (STG) Pt to be independent and compliant with an appropriate HEP 07/30/22: progressing: resisted tricep ext, OH raises in w/c, supine HABD, added scaption OH B #2. STG Duration 11/19/22 Progressing Assessment Summary Assessment Pt improved decrease assist to maintain standing and tall kneeling CG- 10%A today. Physical Therapy Plan Frequency and Duration Frequency of Treatment 2x/Week Plan of Care Start Date 08/21/22 Plan of Care End Date 11/19/22 Therapeutic Interventions Therapeutic Interventions Aquatic Therapy,Balance Training,Coordination Training ,Gait Training,Home Exercise Program,Manual Therapy, Neuromuscular Re-education, Orthotic/Prosthetic Management ,Patient/Caregiver Education, Self-Care/Home Management, Sensory Integration,Soft Tissue Mobilization, Therapeutic Activities, Therapeutic Exercises, Wheelchair Management Next Visit Focus/Plan Next Note Type Treatment Note Next Visit Plan Continue encourage quad/glut fac shuttle press start range and quick presses top range. Assess if pt would benefit from wc LB support more anterior to support upright TS ext posturing emphasis. Continue quadruped, tall knee, standing in //bars, seated balance activities. POC: Continue UE and core strengthening, LE PROM and manual stretching. Transfers, mobility, LE ROM *HOT AIR FURNACE INSTALLER REPAIRER suggested: Consider sit to stander in future when has better TA and hip abd/add control.
--- NOTE | 2022-10-24 15:36 | PT.OTN ---
Current Diagnoses Paraplegia, unspecified (10/24/22) Other specified personal risk factors, not elsewhere classified (10/24/22) Other specified postprocedural states (10/24/22) Physical Therapy Treatment Note PT-OP-A Visit Information Start: 03/08/22 17:00 Freq: Status: Active Protocol: Document 10/24/22 14:47 DCW (Rec: 10/24/22 15:36 DCW [id number]) Out-Patient Physical Therapy Visit Information Visit Information Visit Type Treatment Note Visit Start Time 14:47 Visit Stop Time 15:34 Total Visit Minutes 47 Visit Number 55 Number of HAND COLLATOR Visits 0 Evaluation Information Evaluation Date 03/08/22 PT-OP-B Current Condition Start: 03/08/22 17:00 Freq: Status: Active Protocol: Document 03/08/22 11:15 DCW (Rec: 03/08/22 17:11 DCW [id number]) Current Condition History of Current Condition Onset Date 12/16/21 Current Complaints Paraplegia History of Current Condition Pt is a 71 year old male with a very unfortunate medical history. Pt was hiking [place] on 12/16/21 with a friend, finished up, drive back to his friend's home to drop him off, and noticed his left leg was collapsing. By the time pt drove home, both legs were giving out and numb. Pt was suddenly paralized from the waist down, was taken to the ED, and was flown to [facility] on 12/17/21. The following day, he underwent a laminectomy to relieve pressure from the thoracic epidural hematoma which had developed following his hike, which was pressing on his spinal cord. Following surgery , pt was in recovery for a week and was then transfered to rehab for 20 days, when he was finally discharged home in a wheelchair on 01/19/22. Pt reports his surgeon informed him that it is a possibility that he gets some return of nerve function. Has experienced some changes in his right LE, but has no motor function at this time from ~ T10 down. Minimal sensory return on right side, none on left. Pt has been anxious to get in to therapy and do everything he can to help return to function. Pt's , who attended his evaluation, notes that she has been doing a lot of PROM in his legs at night to keep everything moving. Pt can feel some stretching during PROM in his right leg. Pt has additionally already started occupational therapy, and has been practicing some seated stabilization. Pt transfers with a slide board, but notes it is difficult to do into his car, because he has to transfer upward at an incline. Treatment Goals Patient/Caregiver Goals I will do anything possible to get out of this wheelchair. My neurologist told me he has seen people recover from this , so I am not giving up hope. PT-OP-C Subjective Start: 03/08/22 17:00 Freq: Status: Active Protocol: Document 10/24/22 14:47 DCW (Rec: 10/24/22 15:36 DCW [id number]) OP-PT Subjective Patient Comments Patient Comments Pt reports fairly significant continued LE stiffness, reports his hip flex and his legs cross at night PT-OP-G Mobility & Gait Start: 03/08/22 17:00 Freq: Status: Active Protocol: Document 08/21/22 15:15 DCW (Rec: 08/21/22 15:38 DCW [id number]) OP Mobility Evaluation Transfers Bed to Chair Transfers Transfers using UE Wheelchair Management Type of Wheelchair Manual w/c PT-OP-H Neuro Start: 03/08/22 17:00 Freq: Status: Active Protocol: Document 08/21/22 15:15 DCW (Rec: 08/21/22 15:38 DCW [id number]) Sensation Evaluation Gross Sensation Gross Sensation Left LE Impaired,Right LE Impaired,Trunk Impaired Sensation Description Paresthesia,Numbness,Tingling, Pins & [place],Burning Dermatome Impairments L1,L2,L3,L4,L5,S1,S2,S3,S4-5 Location Details Right Leg Light Touch Impaired Sharp/Dull Impaired Deep Pressure Impaired Hot/Cold Absent Protective Sensation Absent Proprioception (Position) Impaired Kinesthesia (Movement) Impaired Two-Point Discrimination Absent Tactile Localization Impaired Stereognosis Impaired Left Leg Light Touch Absent Sharp/Dull Absent Deep Pressure Impaired Hot/Cold Absent Protective Sensation Absent Proprioception (Position) Absent Kinesthesia (Movement) Impaired Two-Point Discrimination Absent Tactile Localization Absent Stereognosis Absent Deep Tendon Reflex & Clonus Assessment Deep Tendon Reflex Right Achilles Deep Tendon Reflex 1+ Diminished Right Patellar Deep Tendon Reflex 2+ Normal Left Achilles Deep Tendon Reflex 1+ Diminished Left Patellar Deep Tendon Reflex 0 Absent Muscle Tone Tone Assessment Right Lower Extremity Flexor Tone Description Moderate Hypertonicity Extensor Tone Description Moderate Hypertonicity Left Lower Extremity Flexor Tone Description Moderate Hypertonicity Extensor Tone Description Moderate Hypertonicity PT-OP-J Posture/Palpation/Skin Start: 03/08/22 17:00 Freq: Status: Active Protocol: Document 08/21/22 15:15 DCW (Rec: 08/21/22 15:38 DCW [id number]) Posture Evaluation Comments Posture Comments Significant improvement with core control, able to resist moderate sternal push and self -correct back to sitting position with no LOB. PT-OP-M Strength Start: 08/21/22 15:38 Freq: Status: Active Protocol: Document 08/21/22 15:15 DCW (Rec: 08/21/22 15:40 DCW [id number]) Hip Strength Hip Manual Muscle Testing Right Extension (S1) 2- Poor- Adduction 2- Poor- Left Extension (S1) 1 Trace Adduction 0 Zero Knee Strength Knee Manual Muscle Testing Right Flexion (S2) 1 Trace Extension (L3) 1 Trace Left Flexion (S2) 1 Trace Extension (L3) 0 Zero PT-OP-Q Treatments Start: 03/08/22 17:00 Freq: Status: Active Protocol: Document 10/24/22 14:47 DCW (Rec: 10/24/22 15:36 DCW [id number]) Cardio Equipment Recumbent Elliptical (Biodex) Duration (Minutes) 10 Resistance 5 Seat Position 9>8 (at 4 min) Other w/c<->Biodex using UEs, gait belt, Min Ax1 Gym Equipment Shuttle Recovery Bilateral Squats Details without and with BUE assist on thighs LE ext Resistance 12# Reps/Time one unassisted attempt caused sled to move backward ~2 inches Therapeutic Activity Therapeutic Activity sit<>junior database administrator //bars Name Sit<->Stand (//bar height 32, width 5) Reps/Minutes 5 reps Comments To come to stand Max A x1 w/ support via gait belt at waist and anterior knee support USed scale to measure weight pt puts through LEs, ~80 pounds today. PT-OP-T Assessment and Plan Start: 03/08/22 17:00 Freq: Status: Active Protocol: Document 10/24/22 14:47 DCW (Rec: 10/24/22 15:36 DCW [id number]) Physical Therapy Assessment Goals Three Impairment Pt does not have any motor function throughout bilateral LEs Short Term Goal (STG) Pt to demonstrate 1/5 trace motor contraction in at least one quad in order to begin focus on LE mobility if neural functional return begins. STG Duration Met Prison Goal (LTG) Pt to demonstrate right quad strength to at least 2/5, demonstrating movement into ROM in an antigravity position LTG Duration 11/19/22 Two Impairment Pt struggles to perform slideboard car transfer due to upward tilt Mink Rancher Goal (LTG) Pt to demonstrate car transfer SBA using slideboard. 07/30/22: progressing: provides support for trunk stability while pt completes transfer self using slidboard and use over head doorframe handles and car door. has to place/remove slide board. Mod A uphill onto biodex, CG/ MIn A descend off biodex use slideboard. LTG Duration 11/19/22 progressing, requires assistance One Impairment Pt does not have an appropriate home exercise program Short Term Goal (STG) Pt to be independent and compliant with an appropriate HEP 07/30/22: progressing: resisted tricep ext, OH raises in w/c, supine HABD, added scaption OH B #2. STG Duration 11/19/22 Progressing Assessment Summary Assessment Pt showing improvement on leg press, able to move the sled more today without UE assistance than ever before. Additionally repeatedly demonstrated ability to actively slow descent on leg press agains resistance. Physical Therapy Plan Frequency and Duration Frequency of Treatment 2x/Week Plan of Care Start Date 08/21/22 Plan of Care End Date 11/19/22 Therapeutic Interventions Therapeutic Interventions Aquatic Therapy,Balance Training,Coordination Training ,Gait Training,Home Exercise Program,Manual Therapy, Neuromuscular Re-education, Orthotic/Prosthetic Management ,Patient/Caregiver Education, Self-Care/Home Management, Sensory Integration,Soft Tissue Mobilization, Therapeutic Activities, Therapeutic Exercises, Wheelchair Management Next Visit Focus/Plan Next Note Type Treatment Note Next Visit Plan Continue encourage quad/glut fac shuttle press start range and quick presses top range. Assess if pt would benefit from wc LB support more anterior to support upright TS ext posturing emphasis. Continue quadruped, tall knee, standing in //bars, seated balance activities. POC: Continue UE and core strengthening, LE PROM and manual stretching. Transfers, mobility, LE ROM *HAND COLLATOR suggested: Consider sit to stander in future when has better TA and hip abd/add control.
--- NOTE | 2022-10-29 15:37 | PT.OTN ---
Current Diagnoses Paraplegia, unspecified (10/29/22) Other specified personal risk factors, not elsewhere classified (10/29/22) Other specified postprocedural states (10/29/22) Physical Therapy Treatment Note PT-OP-A Visit Information Start: 03/08/22 17:00 Freq: Status: Active Protocol: Document 10/29/22 14:49 DCW (Rec: 10/29/22 15:35 DCW [id number]) Out-Patient Physical Therapy Visit Information Visit Information Visit Type Treatment Note Visit Start Time 14:49 Visit Stop Time 15:30 Total Visit Minutes 41 Visit Number 56 Number of FLOW WORKER Visits 0 Evaluation Information Evaluation Date 03/08/22 PT-OP-B Current Condition Start: 03/08/22 17:00 Freq: Status: Active Protocol: Document 03/08/22 11:15 DCW (Rec: 03/08/22 17:11 DCW [id number]) Current Condition History of Current Condition Onset Date 12/16/21 Current Complaints Paraplegia History of Current Condition Pt is a 71 year old male with a very unfortunate medical history. Pt was hiking [place] on 12/16/21 with a friend, finished up, drive back to his friend's home to drop him off, and noticed his left leg was collapsing. By the time pt drove home, both legs were giving out and numb. Pt was suddenly paralized from the waist down, was taken to the ED, and was flown to [facility] on 12/17/21. The following day, he underwent a laminectomy to relieve pressure from the thoracic epidural hematoma which had developed following his hike, which was pressing on his spinal cord. Following surgery , pt was in recovery for a week and was then transfered to rehab for 20 days, when he was finally discharged home in a wheelchair on 01/19/22. Pt reports his surgeon informed him that it is a possibility that he gets some return of nerve function. Has experienced some changes in his right LE, but has no motor function at this time from ~ T10 down. Minimal sensory return on right side, none on left. Pt has been anxious to get in to therapy and do everything he can to help return to function. Pt's , who attended his evaluation, notes that she has been doing a lot of PROM in his legs at night to keep everything moving. Pt can feel some stretching during PROM in his right leg. Pt has additionally already started occupational therapy, and has been practicing some seated stabilization. Pt transfers with a slide board, but notes it is difficult to do into his car, because he has to transfer upward at an incline. Treatment Goals Patient/Caregiver Goals I will do anything possible to get out of this wheelchair. My neurologist told me he has seen people recover from this , so I am not giving up hope. PT-OP-C Subjective Start: 03/08/22 17:00 Freq: Status: Active Protocol: Document 10/29/22 14:49 DCW (Rec: 10/29/22 15:35 DCW [id number]) OP-PT Subjective Patient Comments Patient Comments Pt getting ready to move within the next few weeks, looking forward to having full access to his new house, which is all on one level PT-OP-G Mobility & Gait Start: 03/08/22 17:00 Freq: Status: Active Protocol: Document 08/21/22 15:15 DCW (Rec: 08/21/22 15:38 DCW [id number]) OP Mobility Evaluation Transfers Bed to Chair Transfers Transfers using UE Wheelchair Management Type of Wheelchair Manual w/c PT-OP-H Neuro Start: 03/08/22 17:00 Freq: Status: Active Protocol: Document 08/21/22 15:15 DCW (Rec: 08/21/22 15:38 DCW [id number]) Sensation Evaluation Gross Sensation Gross Sensation Left LE Impaired,Right LE Impaired,Trunk Impaired Sensation Description Paresthesia,Numbness,Tingling, Pins & [place],Burning Dermatome Impairments L1,L2,L3,L4,L5,S1,S2,S3,S4-5 Location Details Right Leg Light Touch Impaired Sharp/Dull Impaired Deep Pressure Impaired Hot/Cold Absent Protective Sensation Absent Proprioception (Position) Impaired Kinesthesia (Movement) Impaired Two-Point Discrimination Absent Tactile Localization Impaired Stereognosis Impaired Left Leg Light Touch Absent Sharp/Dull Absent Deep Pressure Impaired Hot/Cold Absent Protective Sensation Absent Proprioception (Position) Absent Kinesthesia (Movement) Impaired Two-Point Discrimination Absent Tactile Localization Absent Stereognosis Absent Deep Tendon Reflex & Clonus Assessment Deep Tendon Reflex Right Achilles Deep Tendon Reflex 1+ Diminished Right Patellar Deep Tendon Reflex 2+ Normal Left Achilles Deep Tendon Reflex 1+ Diminished Left Patellar Deep Tendon Reflex 0 Absent Muscle Tone Tone Assessment Right Lower Extremity Flexor Tone Description Moderate Hypertonicity Extensor Tone Description Moderate Hypertonicity Left Lower Extremity Flexor Tone Description Moderate Hypertonicity Extensor Tone Description Moderate Hypertonicity PT-OP-J Posture/Palpation/Skin Start: 03/08/22 17:00 Freq: Status: Active Protocol: Document 08/21/22 15:15 DCW (Rec: 08/21/22 15:38 DCW [id number]) Posture Evaluation Comments Posture Comments Significant improvement with core control, able to resist moderate sternal push and self -correct back to sitting position with no LOB. PT-OP-M Strength Start: 08/21/22 15:38 Freq: Status: Active Protocol: Document 08/21/22 15:15 DCW (Rec: 08/21/22 15:40 DCW [id number]) Hip Strength Hip Manual Muscle Testing Right Extension (S1) 2- Poor- Adduction 2- Poor- Left Extension (S1) 1 Trace Adduction 0 Zero Knee Strength Knee Manual Muscle Testing Right Flexion (S2) 1 Trace Extension (L3) 1 Trace Left Flexion (S2) 1 Trace Extension (L3) 0 Zero PT-OP-Q Treatments Start: 03/08/22 17:00 Freq: Status: Active Protocol: Document 10/29/22 14:49 DCW (Rec: 10/29/22 15:35 DCW [id number]) Cardio Equipment Recumbent Elliptical (Biodex) Duration (Minutes) 10 Resistance 5 Seat Position 9 Other w/c<->Biodex using UEs, gait belt, Min Ax1 Gym Equipment Shuttle Recovery Bilateral Squats Details without and with BUE assist on thighs LE ext Resistance 12# unassisted, 25#->37# assisted Reps/Time Slight movements when unassisted, assisted back-> eccentric lowering Therapeutic Activity Therapeutic Activity sit<>welding pantograph operator //bars Name Sit<->Stand (//bar height 32, width 5) Reps/Minutes 5 reps Comments To come to stand Max A x1 w/ support via gait belt at waist and anterior knee support USed scale to measure weight pt puts through LEs, ~80 pounds today. PT-OP-T Assessment and Plan Start: 03/08/22 17:00 Freq: Status: Active Protocol: Document 10/29/22 14:49 DCW (Rec: 10/29/22 15:35 DCW [id number]) Physical Therapy Assessment Goals Three Impairment Pt does not have any motor function throughout bilateral LEs Short Term Goal (STG) Pt to demonstrate 1/5 trace motor contraction in at least one quad in order to begin focus on LE mobility if neural functional return begins. STG Duration Met Candlemaking Laborer Goal (LTG) Pt to demonstrate right quad strength to at least 2/5, demonstrating movement into ROM in an antigravity position LTG Duration 11/19/22 Two Impairment Pt struggles to perform slideboard car transfer due to upward tilt Shelter Goal (LTG) Pt to demonstrate car transfer SBA using slideboard. 07/30/22: progressing: provides support for trunk stability while pt completes transfer self using slidboard and use over head doorframe handles and car door. has to place/remove slide board. Mod A uphill onto biodex, CG/ MIn A descend off biodex use slideboard. LTG Duration 11/19/22 progressing, requires assistance One Impairment Pt does not have an appropriate home exercise program Short Term Goal (STG) Pt to be independent and compliant with an appropriate HEP 07/30/22: progressing: resisted tricep ext, OH raises in w/c, supine HABD, added scaption OH B #2. STG Duration 11/19/22 Progressing Assessment Summary Assessment Increased weight on leg press today during attempts to eccentricly lower, pt did very well with this increased resistance, was able to briefly maintain partial knee extension, and then slow dwon the return to neutral Physical Therapy Plan Frequency and Duration Frequency of Treatment 2x/Week Plan of Care Start Date 08/21/22 Plan of Care End Date 11/19/22 Therapeutic Interventions Therapeutic Interventions Aquatic Therapy,Balance Training,Coordination Training ,Gait Training,Home Exercise Program,Manual Therapy, Neuromuscular Re-education, Orthotic/Prosthetic Management ,Patient/Caregiver Education, Self-Care/Home Management, Sensory Integration,Soft Tissue Mobilization, Therapeutic Activities, Therapeutic Exercises, Wheelchair Management Next Visit Focus/Plan Next Note Type Treatment Note Next Visit Plan Continue encourage quad/glut fac shuttle press start range and quick presses top range. Assess if pt would benefit from wc LB support more anterior to support upright TS ext posturing emphasis. Continue quadruped, tall knee, standing in //bars, seated balance activities. POC: Continue UE and core strengthening, LE PROM and manual stretching. Transfers, mobility, LE ROM *FLOW WORKER suggested: Consider sit to stander in future when has better TA and hip abd/add control.
--- NOTE | 2022-10-31 14:16 | PT.OTN ---
Current Diagnoses Paraplegia, unspecified (10/31/22) Other specified personal risk factors, not elsewhere classified (10/31/22) Other specified postprocedural states (10/31/22) Physical Therapy Treatment Note PT-OP-A Visit Information Start: 03/08/22 17:00 Freq: Status: Active Protocol: Document 10/31/22 13:38 SP (Rec: 10/31/22 14:18 SP [id number]) Out-Patient Physical Therapy Visit Information Visit Information Visit Type Treatment Note Visit Start Time 13:38 Visit Stop Time 14:16 Total Visit Minutes 38 Visit Number 57 Number of RETAIL CLIENT MANAGER Visits 1 PT-OP-B Current Condition Start: 03/08/22 17:00 Freq: Status: Active Protocol: Document 03/08/22 11:15 DCW (Rec: 03/08/22 17:11 DCW [id number]) Current Condition History of Current Condition Onset Date 12/16/21 Current Complaints Paraplegia History of Current Condition Pt is a 71 year old male with a very unfortunate medical history. Pt was hiking [place] on 12/16/21 with a friend, finished up, drive back to his friend's home to drop him off, and noticed his left leg was collapsing. By the time pt drove home, both legs were giving out and numb. Pt was suddenly paralized from the waist down, was taken to the ED, and was flown to [facility] on 12/17/21. The following day, he underwent a laminectomy to relieve pressure from the thoracic epidural hematoma which had developed following his hike, which was pressing on his spinal cord. Following surgery , pt was in recovery for a week and was then transfered to rehab for 20 days, when he was finally discharged home in a wheelchair on 01/19/22. Pt reports his surgeon informed him that it is a possibility that he gets some return of nerve function. Has experienced some changes in his right LE, but has no motor function at this time from ~ T10 down. Minimal sensory return on right side, none on left. Pt has been anxious to get in to therapy and do everything he can to help return to function. Pt's , who attended his evaluation, notes that she has been doing a lot of PROM in his legs at night to keep everything moving. Pt can feel some stretching during PROM in his right leg. Pt has additionally already started occupational therapy, and has been practicing some seated stabilization. Pt transfers with a slide board, but notes it is difficult to do into his car, because he has to transfer upward at an incline. Treatment Goals Patient/Caregiver Goals I will do anything possible to get out of this wheelchair. My neurologist told me he has seen people recover from this , so I am not giving up hope. PT-OP-C Subjective Start: 03/08/22 17:00 Freq: Status: Active Protocol: Document 10/31/22 13:38 SP (Rec: 10/31/22 14:18 SP [id number]) OP-PT Subjective Patient Comments Patient Comments Pt reports was able to get R knee to pop up on command but LLE followed. PT-OP-G Mobility & Gait Start: 03/08/22 17:00 Freq: Status: Active Protocol: Document 08/21/22 15:15 DCW (Rec: 08/21/22 15:38 DCW [id number]) OP Mobility Evaluation Transfers Bed to Chair Transfers Transfers using UE Wheelchair Management Type of Wheelchair Manual w/c PT-OP-H Neuro Start: 03/08/22 17:00 Freq: Status: Active Protocol: Document 08/21/22 15:15 DCW (Rec: 08/21/22 15:38 DCW [id number]) Sensation Evaluation Gross Sensation Gross Sensation Left LE Impaired,Right LE Impaired,Trunk Impaired Sensation Description Paresthesia,Numbness,Tingling, Pins & [place],Burning Dermatome Impairments L1,L2,L3,L4,L5,S1,S2,S3,S4-5 Location Details Right Leg Light Touch Impaired Sharp/Dull Impaired Deep Pressure Impaired Hot/Cold Absent Protective Sensation Absent Proprioception (Position) Impaired Kinesthesia (Movement) Impaired Two-Point Discrimination Absent Tactile Localization Impaired Stereognosis Impaired Left Leg Light Touch Absent Sharp/Dull Absent Deep Pressure Impaired Hot/Cold Absent Protective Sensation Absent Proprioception (Position) Absent Kinesthesia (Movement) Impaired Two-Point Discrimination Absent Tactile Localization Absent Stereognosis Absent Deep Tendon Reflex & Clonus Assessment Deep Tendon Reflex Right Achilles Deep Tendon Reflex 1+ Diminished Right Patellar Deep Tendon Reflex 2+ Normal Left Achilles Deep Tendon Reflex 1+ Diminished Left Patellar Deep Tendon Reflex 0 Absent Muscle Tone Tone Assessment Right Lower Extremity Flexor Tone Description Moderate Hypertonicity Extensor Tone Description Moderate Hypertonicity Left Lower Extremity Flexor Tone Description Moderate Hypertonicity Extensor Tone Description Moderate Hypertonicity PT-OP-J Posture/Palpation/Skin Start: 03/08/22 17:00 Freq: Status: Active Protocol: Document 08/21/22 15:15 DCW (Rec: 08/21/22 15:38 DCW [id number]) Posture Evaluation Comments Posture Comments Significant improvement with core control, able to resist moderate sternal push and self -correct back to sitting position with no LOB. PT-OP-M Strength Start: 08/21/22 15:38 Freq: Status: Active Protocol: Document 08/21/22 15:15 DCW (Rec: 08/21/22 15:40 DCW [id number]) Hip Strength Hip Manual Muscle Testing Right Extension (S1) 2- Poor- Adduction 2- Poor- Left Extension (S1) 1 Trace Adduction 0 Zero Knee Strength Knee Manual Muscle Testing Right Flexion (S2) 1 Trace Extension (L3) 1 Trace Left Flexion (S2) 1 Trace Extension (L3) 0 Zero PT-OP-Q Treatments Start: 03/08/22 17:00 Freq: Status: Active Protocol: Document 10/31/22 13:38 SP (Rec: 10/31/22 14:18 SP [id number]) Cardio Equipment Recumbent Elliptical (Biodex) Duration (Minutes) 10 Resistance 5 Seat Position 7>9 (support R foot on plate while into extension) Other w/c<->Biodex using UEs, gait belt, Min Ax1, required assist for R LE support on peddle due to increased flexion tone. Gym Equipment Shuttle Recovery Bilateral Squats Details without and with BUE assist on thighs LE ext Resistance 12# unassisted, 25# assisted Reps/Time Slight movements when unassisted, assisted back-> eccentric lowering Therapeutic Activity Therapeutic Activity sit<>dairy equipment installer //bars Name Sit<->Stand (//bar height 32, width 5) Reps/Minutes 5 reps Comments To come to stand Max A x1 w/ support via gait belt at waist and anterior knee support USed scale to measure weight pt puts through LEs, ~80 pounds today. PT-OP-T Assessment and Plan Start: 03/08/22 17:00 Freq: Status: Active Protocol: Document 10/31/22 13:38 SP (Rec: 10/31/22 14:18 SP [id number]) Physical Therapy Assessment Goals Three Impairment Pt does not have any motor function throughout bilateral LEs Short Term Goal (STG) Pt to demonstrate 1/5 trace motor contraction in at least one quad in order to begin focus on LE mobility if neural functional return begins. STG Duration Met Medical Or Surgical Instrument Maker Goal (LTG) Pt to demonstrate right quad strength to at least 2/5, demonstrating movement into ROM in an antigravity position LTG Duration 11/19/22 Two Impairment Pt struggles to perform slideboard car transfer due to upward tilt Prison Goal (LTG) Pt to demonstrate car transfer SBA using slideboard. 07/30/22: progressing: provides support for trunk stability while pt completes transfer self using slidboard and use over head doorframe handles and car door. has to place/remove slide board. Mod A uphill onto biodex, CG/ MIn A descend off biodex use slideboard. LTG Duration 11/19/22 progressing, requires assistance One Impairment Pt does not have an appropriate home exercise program Short Term Goal (STG) Pt to be independent and compliant with an appropriate HEP 07/30/22: progressing: resisted tricep ext, OH raises in w/c, supine HABD, added scaption OH B #2. STG Duration 11/19/22 Progressing Assessment Summary Assessment Pt had decreased LE muscular engagement 62# LE WB during standing in//bars and shuttle recovery 12-25# brief moments of slowing eccentric control into flexion but unable to stop sled from moving today required increase UE assist and outside support Mod-Max A from therapist in standing. Pt tires quickly. Pt required therapist assist maintain R LE on biodex peddle due to increased flexor tone today. Physical Therapy Plan Frequency and Duration Frequency of Treatment 2x/Week Plan of Care Start Date 08/21/22 Plan of Care End Date 11/19/22 Therapeutic Interventions Therapeutic Interventions Aquatic Therapy,Balance Training,Coordination Training ,Gait Training,Home Exercise Program,Manual Therapy, Neuromuscular Re-education, Orthotic/Prosthetic Management ,Patient/Caregiver Education, Self-Care/Home Management, Sensory Integration,Soft Tissue Mobilization, Therapeutic Activities, Therapeutic Exercises, Wheelchair Management Next Visit Focus/Plan Next Note Type Treatment Note Next Visit Plan Continue encourage quad/glut fac shuttle press start range and quick presses top range. Assess if pt would benefit from wc LB support more anterior to support upright TS ext posturing emphasis. Continue quadruped, tall knee, standing in //bars, seated balance activities. POC: Continue UE and core strengthening, LE PROM and manual stretching. Transfers, mobility, LE ROM *RETAIL CLIENT MANAGER suggested: Consider sit to stander in future when has better TA and hip abd/add control.
--- NOTE | 2022-11-05 14:46 | PT.OTN ---
Current Diagnoses Paraplegia, unspecified (11/05/22) Other specified personal risk factors, not elsewhere classified (11/05/22) Other specified postprocedural states (11/05/22) Physical Therapy Treatment Note PT-OP-A Visit Information Start: 03/08/22 17:00 Freq: Status: Active Protocol: Document 11/05/22 14:05 DCW (Rec: 11/05/22 14:46 DCW [id number]) Out-Patient Physical Therapy Visit Information Visit Information Visit Type Treatment Note Visit Start Time 14:05 Visit Stop Time 14:45 Total Visit Minutes 40 Visit Number 58 Number of TAG CLERK Visits 0 Evaluation Information Evaluation Date 03/08/22 PT-OP-B Current Condition Start: 03/08/22 17:00 Freq: Status: Active Protocol: Document 03/08/22 11:15 DCW (Rec: 03/08/22 17:11 DCW [id number]) Current Condition History of Current Condition Onset Date 12/16/21 Current Complaints Paraplegia History of Current Condition Pt is a 71 year old male with a very unfortunate medical history. Pt was hiking [place] on 12/16/21 with a friend, finished up, drive back to his friend's home to drop him off, and noticed his left leg was collapsing. By the time pt drove home, both legs were giving out and numb. Pt was suddenly paralized from the waist down, was taken to the ED, and was flown to [facility] on 12/17/21. The following day, he underwent a laminectomy to relieve pressure from the thoracic epidural hematoma which had developed following his hike, which was pressing on his spinal cord. Following surgery , pt was in recovery for a week and was then transfered to rehab for 20 days, when he was finally discharged home in a wheelchair on 01/19/22. Pt reports his surgeon informed him that it is a possibility that he gets some return of nerve function. Has experienced some changes in his right LE, but has no motor function at this time from ~ T10 down. Minimal sensory return on right side, none on left. Pt has been anxious to get in to therapy and do everything he can to help return to function. Pt's , who attended his evaluation, notes that she has been doing a lot of PROM in his legs at night to keep everything moving. Pt can feel some stretching during PROM in his right leg. Pt has additionally already started occupational therapy, and has been practicing some seated stabilization. Pt transfers with a slide board, but notes it is difficult to do into his car, because he has to transfer upward at an incline. Treatment Goals Patient/Caregiver Goals I will do anything possible to get out of this wheelchair. My neurologist told me he has seen people recover from this , so I am not giving up hope. PT-OP-C Subjective Start: 03/08/22 17:00 Freq: Status: Active Protocol: Document 11/05/22 14:05 DCW (Rec: 11/05/22 14:46 DCW [id number]) OP-PT Subjective Patient Comments Patient Comments Pt and his are in the middle of moving to a new home , and pt admits that things are pretty hectic. PT-OP-G Mobility & Gait Start: 03/08/22 17:00 Freq: Status: Active Protocol: Document 08/21/22 15:15 DCW (Rec: 08/21/22 15:38 DCW [id number]) OP Mobility Evaluation Transfers Bed to Chair Transfers Transfers using UE Wheelchair Management Type of Wheelchair Manual w/c PT-OP-H Neuro Start: 03/08/22 17:00 Freq: Status: Active Protocol: Document 08/21/22 15:15 DCW (Rec: 08/21/22 15:38 DCW [id number]) Sensation Evaluation Gross Sensation Gross Sensation Left LE Impaired,Right LE Impaired,Trunk Impaired Sensation Description Paresthesia,Numbness,Tingling, Pins & [place],Burning Dermatome Impairments L1,L2,L3,L4,L5,S1,S2,S3,S4-5 Location Details Right Leg Light Touch Impaired Sharp/Dull Impaired Deep Pressure Impaired Hot/Cold Absent Protective Sensation Absent Proprioception (Position) Impaired Kinesthesia (Movement) Impaired Two-Point Discrimination Absent Tactile Localization Impaired Stereognosis Impaired Left Leg Light Touch Absent Sharp/Dull Absent Deep Pressure Impaired Hot/Cold Absent Protective Sensation Absent Proprioception (Position) Absent Kinesthesia (Movement) Impaired Two-Point Discrimination Absent Tactile Localization Absent Stereognosis Absent Deep Tendon Reflex & Clonus Assessment Deep Tendon Reflex Right Achilles Deep Tendon Reflex 1+ Diminished Right Patellar Deep Tendon Reflex 2+ Normal Left Achilles Deep Tendon Reflex 1+ Diminished Left Patellar Deep Tendon Reflex 0 Absent Muscle Tone Tone Assessment Right Lower Extremity Flexor Tone Description Moderate Hypertonicity Extensor Tone Description Moderate Hypertonicity Left Lower Extremity Flexor Tone Description Moderate Hypertonicity Extensor Tone Description Moderate Hypertonicity PT-OP-J Posture/Palpation/Skin Start: 03/08/22 17:00 Freq: Status: Active Protocol: Document 08/21/22 15:15 DCW (Rec: 08/21/22 15:38 DCW [id number]) Posture Evaluation Comments Posture Comments Significant improvement with core control, able to resist moderate sternal push and self -correct back to sitting position with no LOB. PT-OP-M Strength Start: 08/21/22 15:38 Freq: Status: Active Protocol: Document 08/21/22 15:15 DCW (Rec: 08/21/22 15:40 DCW [id number]) Hip Strength Hip Manual Muscle Testing Right Extension (S1) 2- Poor- Adduction 2- Poor- Left Extension (S1) 1 Trace Adduction 0 Zero Knee Strength Knee Manual Muscle Testing Right Flexion (S2) 1 Trace Extension (L3) 1 Trace Left Flexion (S2) 1 Trace Extension (L3) 0 Zero PT-OP-Q Treatments Start: 03/08/22 17:00 Freq: Status: Active Protocol: Document 11/05/22 14:05 DCW (Rec: 11/05/22 14:46 DCW [id number]) Cardio Equipment Recumbent Elliptical (Biodex) Duration (Minutes) 10 Resistance 5 Seat Position 9 Other w/c<->Biodex using UEs, gait belt, Min Ax1 Therapeutic Activity Therapeutic Activity sit<>advertising inserter //bars Name Sit<->Stand (//bar height 32, width 5) Reps/Minutes 5 reps Comments To come to stand Max A x1 w/ support via gait belt at waist and anterior knee support Used scale to measure weight pt puts through LEs, ~100 pounds today. PT-OP-T Assessment and Plan Start: 03/08/22 17:00 Freq: Status: Active Protocol: Document 11/05/22 14:05 DCW (Rec: 11/05/22 14:46 DCW [id number]) Physical Therapy Assessment Goals Three Impairment Pt does not have any motor function throughout bilateral LEs Short Term Goal (STG) Pt to demonstrate 1/5 trace motor contraction in at least one quad in order to begin focus on LE mobility if neural functional return begins. STG Duration Met Camera Systems Engineer Goal (LTG) Pt to demonstrate right quad strength to at least 2/5, demonstrating movement into ROM in an antigravity position LTG Duration 11/19/22 - improving Two Impairment Pt struggles to perform slideboard car transfer due to upward tilt Correction Goal (LTG) Pt to demonstrate car transfer SBA using slideboard. 07/30/22: progressing: provides support for trunk stability while pt completes transfer self using slideboard and use over head doorframe handles and car door. has to place/remove slide board. Mod A uphill onto biodex, CG/ MIn A descend off biodex use slideboard. LTG Duration Met One Impairment Pt does not have an appropriate home exercise program Short Term Goal (STG) Pt to be independent and compliant with an appropriate HEP 07/30/22: progressing: resisted tricep ext, OH raises in w/c, supine HABD, added scaption OH B #2. STG Duration 11/19/22 Progressing Assessment Summary Assessment Focused mainly today on sit<-> stands in // bars today, did much better today supporting himself and putting increased weight through LEs. May benefit from addition of mechanical stander, pt appears to have improved core stability enough to be able to help keep himself upright. Physical Therapy Plan Frequency and Duration Frequency of Treatment 2x/Week Plan of Care Start Date 08/21/22 Plan of Care End Date 11/19/22 Therapeutic Interventions Therapeutic Interventions Aquatic Therapy,Balance Training,Coordination Training ,Gait Training,Home Exercise Program,Manual Therapy, Neuromuscular Re-education, Orthotic/Prosthetic Management ,Patient/Caregiver Education, Self-Care/Home Management, Sensory Integration,Soft Tissue Mobilization, Therapeutic Activities, Therapeutic Exercises, Wheelchair Management Next Visit Focus/Plan Next Note Type Treatment Note Next Visit Plan Continue encourage quad/glut fac shuttle press start range and quick presses top range. Assess if pt would benefit from wc LB support more anterior to support upright TS ext posturing emphasis. Continue quadruped, tall knee, standing in //bars, seated balance activities. POC: Continue UE and core strengthening, LE PROM and manual stretching. Transfers, mobility, LE ROM *TAG CLERK suggested: Consider sit to stander in future when has better TA and hip abd/add control.
--- NOTE | 2022-11-07 14:15 | PT.OTN ---
Current Diagnoses Paraplegia, unspecified (11/07/22) Other specified personal risk factors, not elsewhere classified (11/07/22) Other specified postprocedural states (11/07/22) Physical Therapy Treatment Note PT-OP-A Visit Information Start: 03/08/22 17:00 Freq: Status: Active Protocol: Document 11/07/22 13:35 SP (Rec: 11/07/22 14:18 SP [id number]) Out-Patient Physical Therapy Visit Information Visit Information Visit Type Treatment Note Visit Start Time 13:35 Visit Stop Time 14:15 Total Visit Minutes 40 Visit Number 59 Number of PIG MACHINE OPERATOR Visits 1 Evaluation Information Evaluation Date 03/08/22 PT-OP-B Current Condition Start: 03/08/22 17:00 Freq: Status: Active Protocol: Document 03/08/22 11:15 DCW (Rec: 03/08/22 17:11 DCW [id number]) Current Condition History of Current Condition Onset Date 12/16/21 Current Complaints Paraplegia History of Current Condition Pt is a 71 year old male with a very unfortunate medical history. Pt was hiking [employer] on 12/16/21 with a friend, finished up, drive back to his friend's home to drop him off, and noticed his left leg was collapsing. By the time pt drove home, both legs were giving out and numb. Pt was suddenly paralized from the waist down, was taken to the ED, and was flown to [facility] on 12/17/21. The following day, he underwent a laminectomy to relieve pressure from the thoracic epidural hematoma which had developed following his hike, which was pressing on his spinal cord. Following surgery , pt was in recovery for a week and was then transfered to rehab for 20 days, when he was finally discharged home in a wheelchair on 01/19/22. Pt reports his surgeon informed him that it is a possibility that he gets some return of nerve function. Has experienced some changes in his right LE, but has no motor function at this time from ~ T10 down. Minimal sensory return on right side, none on left. Pt has been anxious to get in to therapy and do everything he can to help return to function. Pt's , who attended his evaluation, notes that she has been doing a lot of PROM in his legs at night to keep everything moving. Pt can feel some stretching during PROM in his right leg. Pt has additionally already started occupational therapy, and has been practicing some seated stabilization. Pt transfers with a slide board, but notes it is difficult to do into his car, because he has to transfer upward at an incline. Treatment Goals Patient/Caregiver Goals I will do anything possible to get out of this wheelchair. My neurologist told me he has seen people recover from this , so I am not giving up hope. PT-OP-C Subjective Start: 03/08/22 17:00 Freq: Status: Active Protocol: Document 11/07/22 13:35 SP (Rec: 11/07/22 14:18 SP [id number]) OP-PT Subjective Patient Comments Patient Comments Pt states is pleased with gains has been making and hopeful to continue to progress and LLE comes along like R. PT-OP-G Mobility & Gait Start: 03/08/22 17:00 Freq: Status: Active Protocol: Document 08/21/22 15:15 DCW (Rec: 08/21/22 15:38 DCW [id number]) OP Mobility Evaluation Transfers Bed to Chair Transfers Transfers using UE Wheelchair Management Type of Wheelchair Manual w/c PT-OP-H Neuro Start: 03/08/22 17:00 Freq: Status: Active Protocol: Document 08/21/22 15:15 DCW (Rec: 08/21/22 15:38 DCW [id number]) Sensation Evaluation Gross Sensation Gross Sensation Left LE Impaired,Right LE Impaired,Trunk Impaired Sensation Description Paresthesia,Numbness,Tingling, Pins & [place],Burning Dermatome Impairments L1,L2,L3,L4,L5,S1,S2,S3,S4-5 Location Details Right Leg Light Touch Impaired Sharp/Dull Impaired Deep Pressure Impaired Hot/Cold Absent Protective Sensation Absent Proprioception (Position) Impaired Kinesthesia (Movement) Impaired Two-Point Discrimination Absent Tactile Localization Impaired Stereognosis Impaired Left Leg Light Touch Absent Sharp/Dull Absent Deep Pressure Impaired Hot/Cold Absent Protective Sensation Absent Proprioception (Position) Absent Kinesthesia (Movement) Impaired Two-Point Discrimination Absent Tactile Localization Absent Stereognosis Absent Deep Tendon Reflex & Clonus Assessment Deep Tendon Reflex Right Achilles Deep Tendon Reflex 1+ Diminished Right Patellar Deep Tendon Reflex 2+ Normal Left Achilles Deep Tendon Reflex 1+ Diminished Left Patellar Deep Tendon Reflex 0 Absent Muscle Tone Tone Assessment Right Lower Extremity Flexor Tone Description Moderate Hypertonicity Extensor Tone Description Moderate Hypertonicity Left Lower Extremity Flexor Tone Description Moderate Hypertonicity Extensor Tone Description Moderate Hypertonicity PT-OP-J Posture/Palpation/Skin Start: 03/08/22 17:00 Freq: Status: Active Protocol: Document 08/21/22 15:15 DCW (Rec: 08/21/22 15:38 DCW [id number]) Posture Evaluation Comments Posture Comments Significant improvement with core control, able to resist moderate sternal push and self -correct back to sitting position with no LOB. PT-OP-M Strength Start: 08/21/22 15:38 Freq: Status: Active Protocol: Document 08/21/22 15:15 DCW (Rec: 08/21/22 15:40 DCW [id number]) Hip Strength Hip Manual Muscle Testing Right Extension (S1) 2- Poor- Adduction 2- Poor- Left Extension (S1) 1 Trace Adduction 0 Zero Knee Strength Knee Manual Muscle Testing Right Flexion (S2) 1 Trace Extension (L3) 1 Trace Left Flexion (S2) 1 Trace Extension (L3) 0 Zero PT-OP-Q Treatments Start: 03/08/22 17:00 Freq: Status: Active Protocol: Document 11/07/22 13:35 SP (Rec: 11/07/22 14:18 SP [id number]) Cardio Equipment Recumbent Elliptical (Biodex) Duration (Minutes) 10 Resistance 4- (max A BLE on foot plates, L ankle support limit ext/PF falls off plate) Seat Position 7>>8>9>10 Other w/c<->Biodex using UEs ( lateral scoot), gait belt, Mod Ax1 Therapeutic Activity Therapeutic Activity sit to stander Name trialed today with decreased UE support Reps/Minutes 3 trials stands approx 2 min Comments in//bars, 2 person (1 posterior pelvic/low back support, 2nd person stander control) repositioning strap sub ischialtuberosity. Noted quad and gluteal firing. Mod cues for postural CS elongation, TS extension while leaning back into supportive strap. Doesn't come to full stand due to R>L flexor tone in HS and hip flexor. Less BUE support on // bars or stander bars approx 25 %. squat/lateral scoot transfer Name w/c<> mesh chair, w/c<> biodex Comments Mod A throughout gait belt, while support anterior knees to support extension. Cues to patient small pacing transition over/back w/ core and UEs. PT-OP-T Assessment and Plan Start: 03/08/22 17:00 Freq: Status: Active Protocol: Document 11/07/22 13:35 SP (Rec: 11/07/22 14:18 SP [id number]) Physical Therapy Assessment Goals Three Impairment Pt does not have any motor function throughout bilateral LEs Short Term Goal (STG) Pt to demonstrate 1/5 trace motor contraction in at least one quad in order to begin focus on LE mobility if neural functional return begins. STG Duration Met Jail Goal (LTG) Pt to demonstrate right quad strength to at least 2/5, demonstrating movement into ROM in an antigravity position LTG Duration 11/19/22 - improving Two Impairment Pt struggles to perform slideboard car transfer due to upward tilt Pathological Technician Goal (LTG) Pt to demonstrate car transfer SBA using slideboard. 07/30/22: progressing: provides support for trunk stability while pt completes transfer self using slidboard and use over head doorframe handles and car door. has to place/remove slide board. Mod A uphill onto biodex, CG/ MIn A descend off biodex use slideboard. LTG Duration Met One Impairment Pt does not have an appropriate home exercise program Short Term Goal (STG) Pt to be independent and compliant with an appropriate HEP 07/30/22: progressing: resisted tricep ext, OH raises in w/c, supine HABD, added scaption OH B #2. STG Duration 11/19/22 Progressing Assessment Summary Assessment Pt demonstrated increase BLE WB with less BUE support on bars into standing with sit to stander trial. Min A at posterior pelvis/trunk for added support of lifting strap security. Cues for head up, TS ext taller trunk elongation to prevent added protection to front head due to TS forward structural posture. Pt able to lateral scoot in/out chair with Mod A biodex, mesh chair today. Physical Therapy Plan Frequency and Duration Frequency of Treatment 2x/Week Plan of Care Start Date 08/21/22 Plan of Care End Date 11/19/22 Therapeutic Interventions Therapeutic Interventions Aquatic Therapy,Balance Training,Coordination Training ,Gait Training,Home Exercise Program,Manual Therapy, Neuromuscular Re-education, Orthotic/Prosthetic Management ,Patient/Caregiver Education, Self-Care/Home Management, Sensory Integration,Soft Tissue Mobilization, Therapeutic Activities, Therapeutic Exercises, Wheelchair Management Next Visit Focus/Plan Next Note Type Treatment Note Next Visit Plan Continue encourage quad/glut fac shuttle press start range and quick presses top range to support standing in sit to stander. POC: Continue UE and core strengthening, LE PROM and manual stretching. Transfers, mobility, LE ROM *PIG MACHINE OPERATOR suggested: Consider sit to stander in future when has better TA and hip abd/add control.
--- NOTE | 2022-11-11 14:50 | PT.OTN ---
Current Diagnoses Paraplegia, unspecified (11/11/22) Other specified personal risk factors, not elsewhere classified (11/11/22) Other specified postprocedural states (11/11/22) Physical Therapy Treatment Note PT-OP-A Visit Information Start: 03/08/22 17:00 Freq: Status: Active Protocol: Document 11/11/22 14:03 DCW (Rec: 11/11/22 14:50 DCW [id number]) Out-Patient Physical Therapy Visit Information Visit Information Visit Type Treatment Note Visit Start Time 14:03 Visit Stop Time 14:45 Total Visit Minutes 42 Visit Number 60 Number of MUD GRINDER Visits 0 Evaluation Information Evaluation Date 03/08/22 PT-OP-B Current Condition Start: 03/08/22 17:00 Freq: Status: Active Protocol: Document 03/08/22 11:15 DCW (Rec: 03/08/22 17:11 DCW [id number]) Current Condition History of Current Condition Onset Date 12/16/21 Current Complaints Paraplegia History of Current Condition Pt is a 71 year old male with a very unfortunate medical history. Pt was hiking [email or web address] on 12/16/21 with a friend, finished up, drive back to his friend's home to drop him off, and noticed his left leg was collapsing. By the time pt drove home, both legs were giving out and numb. Pt was suddenly paralized from the waist down, was taken to the ED, and was flown to [facility] on 12/17/21. The following day, he underwent a laminectomy to relieve pressure from the thoracic epidural hematoma which had developed following his hike, which was pressing on his spinal cord. Following surgery , pt was in recovery for a week and was then transfered to rehab for 20 days, when he was finally discharged home in a wheelchair on 01/19/22. Pt reports his surgeon informed him that it is a possibility that he gets some return of nerve function. Has experienced some changes in his right LE, but has no motor function at this time from ~ T10 down. Minimal sensory return on right side, none on left. Pt has been anxious to get in to therapy and do everything he can to help return to function. Pt's , who attended his evaluation, notes that she has been doing a lot of PROM in his legs at night to keep everything moving. Pt can feel some stretching during PROM in his right leg. Pt has additionally already started occupational therapy, and has been practicing some seated stabilization. Pt transfers with a slide board, but notes it is difficult to do into his car, because he has to transfer upward at an incline. Treatment Goals Patient/Caregiver Goals I will do anything possible to get out of this wheelchair. My neurologist told me he has seen people recover from this , so I am not giving up hope. PT-OP-C Subjective Start: 03/08/22 17:00 Freq: Status: Active Protocol: Document 11/11/22 14:03 DCW (Rec: 11/11/22 14:50 DCW [id number]) OP-PT Subjective Patient Comments Patient Comments Pt has been in the middle of moving, admits he hasn't really been able to perform his HEP as frequently. PT-OP-G Mobility & Gait Start: 03/08/22 17:00 Freq: Status: Active Protocol: Document 08/21/22 15:15 DCW (Rec: 08/21/22 15:38 DCW [id number]) OP Mobility Evaluation Transfers Bed to Chair Transfers Transfers using UE Wheelchair Management Type of Wheelchair Manual w/c PT-OP-H Neuro Start: 03/08/22 17:00 Freq: Status: Active Protocol: Document 08/21/22 15:15 DCW (Rec: 08/21/22 15:38 DCW [id number]) Sensation Evaluation Gross Sensation Gross Sensation Left LE Impaired,Right LE Impaired,Trunk Impaired Sensation Description Paresthesia,Numbness,Tingling, Pins & [place],Burning Dermatome Impairments L1,L2,L3,L4,L5,S1,S2,S3,S4-5 Location Details Right Leg Light Touch Impaired Sharp/Dull Impaired Deep Pressure Impaired Hot/Cold Absent Protective Sensation Absent Proprioception (Position) Impaired Kinesthesia (Movement) Impaired Two-Point Discrimination Absent Tactile Localization Impaired Stereognosis Impaired Left Leg Light Touch Absent Sharp/Dull Absent Deep Pressure Impaired Hot/Cold Absent Protective Sensation Absent Proprioception (Position) Absent Kinesthesia (Movement) Impaired Two-Point Discrimination Absent Tactile Localization Absent Stereognosis Absent Deep Tendon Reflex & Clonus Assessment Deep Tendon Reflex Right Achilles Deep Tendon Reflex 1+ Diminished Right Patellar Deep Tendon Reflex 2+ Normal Left Achilles Deep Tendon Reflex 1+ Diminished Left Patellar Deep Tendon Reflex 0 Absent Muscle Tone Tone Assessment Right Lower Extremity Flexor Tone Description Moderate Hypertonicity Extensor Tone Description Moderate Hypertonicity Left Lower Extremity Flexor Tone Description Moderate Hypertonicity Extensor Tone Description Moderate Hypertonicity PT-OP-J Posture/Palpation/Skin Start: 03/08/22 17:00 Freq: Status: Active Protocol: Document 08/21/22 15:15 DCW (Rec: 08/21/22 15:38 DCW [id number]) Posture Evaluation Comments Posture Comments Significant improvement with core control, able to resist moderate sternal push and self -correct back to sitting position with no LOB. PT-OP-M Strength Start: 08/21/22 15:38 Freq: Status: Active Protocol: Document 08/21/22 15:15 DCW (Rec: 08/21/22 15:40 DCW [id number]) Hip Strength Hip Manual Muscle Testing Right Extension (S1) 2- Poor- Adduction 2- Poor- Left Extension (S1) 1 Trace Adduction 0 Zero Knee Strength Knee Manual Muscle Testing Right Flexion (S2) 1 Trace Extension (L3) 1 Trace Left Flexion (S2) 1 Trace Extension (L3) 0 Zero PT-OP-Q Treatments Start: 03/08/22 17:00 Freq: Status: Active Protocol: Document 11/11/22 14:03 DCW (Rec: 11/11/22 14:50 DCW [id number]) Cardio Equipment Recumbent Elliptical (Biodex) Duration (Minutes) 10 Resistance 4 Seat Position 10 Other w/c<->Biodex using UEs ( lateral scoot), gait belt, Mod Ax1 Therapeutic Activity Therapeutic Activity sit to stander Reps/Minutes 2 trials stands approx 10 min Comments in//bars, 2 person (1 posterior pelvic/low back support, 2nd person stander control) Noted quad and gluteal firing. Mod cues for postural CS elongation, TS extension while leaning back into supportive strap. Doesn't come to full stand due to R>L flexor tone in HS and hip flexor. Less BUE support on //bars or stander bars approx 25%. PT-OP-T Assessment and Plan Start: 03/08/22 17:00 Freq: Status: Active Protocol: Document 11/11/22 14:03 DCW (Rec: 11/11/22 14:50 DCW [id number]) Physical Therapy Assessment Goals Three Impairment Pt does not have any motor function throughout bilateral LEs Short Term Goal (STG) Pt to demonstrate 1/5 trace motor contraction in at least one quad in order to begin focus on LE mobility if neural functional return begins. STG Duration Met Intermediate Goal (LTG) Pt to demonstrate right quad strength to at least 2/5, demonstrating movement into ROM in an antigravity position LTG Duration 11/19/22 - improving Two Impairment Pt struggles to perform slideboard car transfer due to upward tilt Intermediate Goal (LTG) Pt to demonstrate car transfer SBA using slideboard. 07/30/22: progressing: provides support for trunk stability while pt completes transfer self using slidboard and use over head doorframe handles and car door. has to place/remove slide board. Mod A uphill onto biodex, CG/ MIn A descend off biodex use slideboard. LTG Duration Met One Impairment Pt does not have an appropriate home exercise program Short Term Goal (STG) Pt to be independent and compliant with an appropriate HEP 07/30/22: progressing: resisted tricep ext, OH raises in w/c, supine HABD, added scaption OH B #2. STG Duration 11/19/22 Progressing Assessment Summary Assessment Spent more time with pt in standing using sit<->stand transfer lift. Pt able to get good weight bearing through his legs bilaterally, used UEs on lift to help get spine out of flexed posture to get more upright. Pt very happy with physiologic response to standing. Physical Therapy Plan Frequency and Duration Frequency of Treatment 2x/Week Plan of Care Start Date 08/21/22 Plan of Care End Date 11/19/22 Therapeutic Interventions Therapeutic Interventions Aquatic Therapy,Balance Training,Coordination Training ,Gait Training,Home Exercise Program,Manual Therapy, Neuromuscular Re-education, Orthotic/Prosthetic Management ,Patient/Caregiver Education, Self-Care/Home Management, Sensory Integration,Soft Tissue Mobilization, Therapeutic Activities, Therapeutic Exercises, Wheelchair Management Next Visit Focus/Plan Next Note Type Treatment Note Next Visit Plan Continue encourage quad/glut fac shuttle press start range and quick presses top range to support standing in sit to stander. POC: Continue UE and core strengthening, LE PROM and manual stretching. Transfers, mobility, LE ROM *MUD GRINDER suggested: Consider sit to stander in future when has better TA and hip abd/add control.
--- NOTE | 2022-11-14 14:25 | PT.OTN ---
Current Diagnoses Paraplegia, unspecified (11/14/22) Other specified personal risk factors, not elsewhere classified (11/14/22) Other specified postprocedural states (11/14/22) Physical Therapy Treatment Note PT-OP-A Visit Information Start: 03/08/22 17:00 Freq: Status: Active Protocol: Document 11/14/22 13:36 SP (Rec: 11/14/22 14:29 SP [id number]) Out-Patient Physical Therapy Visit Information Visit Information Visit Type Treatment Note Visit Note Pt 6 min late for appt. Visit Start Time 13:36 Visit Stop Time 14:25 Total Visit Minutes 49 Visit Number 61 Number of INSIDE [employer]OR SALES Visits 1 Evaluation Information Evaluation Date 03/08/22 PT-OP-B Current Condition Start: 03/08/22 17:00 Freq: Status: Active Protocol: Document 03/08/22 11:15 DCW (Rec: 03/08/22 17:11 DCW [id number]) Current Condition History of Current Condition Onset Date 12/16/21 Current Complaints Paraplegia History of Current Condition Pt is a 71 year old male with a very unfortunate medical history. Pt was hiking [place] on 12/16/21 with a friend, finished up, drive back to his friend's home to drop him off, and noticed his left leg was collapsing. By the time pt drove home, both legs were giving out and numb. Pt was suddenly paralized from the waist down, was taken to the ED, and was flown to [facility] on 12/17/21. The following day, he underwent a laminectomy to relieve pressure from the thoracic epidural hematoma which had developed following his hike, which was pressing on his spinal cord. Following surgery , pt was in recovery for a week and was then transfered to rehab for 20 days, when he was finally discharged home in a wheelchair on 01/19/22. Pt reports his surgeon informed him that it is a possibility that he gets some return of nerve function. Has experienced some changes in his right LE, but has no motor function at this time from ~ T10 down. Minimal sensory return on right side, none on left. Pt has been anxious to get in to therapy and do everything he can to help return to function. Pt's , who attended his evaluation, notes that she has been doing a lot of PROM in his legs at night to keep everything moving. Pt can feel some stretching during PROM in his right leg. Pt has additionally already started occupational therapy, and has been practicing some seated stabilization. Pt transfers with a slide board, but notes it is difficult to do into his car, because he has to transfer upward at an incline. Treatment Goals Patient/Caregiver Goals I will do anything possible to get out of this wheelchair. My neurologist told me he has seen people recover from this , so I am not giving up hope. PT-OP-C Subjective Start: 03/08/22 17:00 Freq: Status: Active Protocol: Document 11/14/22 13:36 SP (Rec: 11/14/22 14:29 SP [id number]) OP-PT Subjective Patient Comments Patient Comments Pt reports still busy with moving, now that getting settled with move in, trying to get back to upper body exercises, needs to get doing more with BLEs. PT-OP-G Mobility & Gait Start: 03/08/22 17:00 Freq: Status: Active Protocol: Document 08/21/22 15:15 DCW (Rec: 08/21/22 15:38 DCW [id number]) OP Mobility Evaluation Transfers Bed to Chair Transfers Transfers using UE Wheelchair Management Type of Wheelchair Manual w/c PT-OP-H Neuro Start: 03/08/22 17:00 Freq: Status: Active Protocol: Document 08/21/22 15:15 DCW (Rec: 08/21/22 15:38 DCW [id number]) Sensation Evaluation Gross Sensation Gross Sensation Left LE Impaired,Right LE Impaired,Trunk Impaired Sensation Description Paresthesia,Numbness,Tingling, Pins & Preston,Burning Dermatome Impairments L1,L2,L3,L4,L5,S1,S2,S3,S4-5 Location Details Right Leg Light Touch Impaired Sharp/Dull Impaired Deep Pressure Impaired Hot/Cold Absent Protective Sensation Absent Proprioception (Position) Impaired Kinesthesia (Movement) Impaired Two-Point Discrimination Absent Tactile Localization Impaired Stereognosis Impaired Left Leg Light Touch Absent Sharp/Dull Absent Deep Pressure Impaired Hot/Cold Absent Protective Sensation Absent Proprioception (Position) Absent Kinesthesia (Movement) Impaired Two-Point Discrimination Absent Tactile Localization Absent Stereognosis Absent Deep Tendon Reflex & Clonus Assessment Deep Tendon Reflex Right Achilles Deep Tendon Reflex 1+ Diminished Right Patellar Deep Tendon Reflex 2+ Normal Left Achilles Deep Tendon Reflex 1+ Diminished Left Patellar Deep Tendon Reflex 0 Absent Muscle Tone Tone Assessment Right Lower Extremity Flexor Tone Description Moderate Hypertonicity Extensor Tone Description Moderate Hypertonicity Left Lower Extremity Flexor Tone Description Moderate Hypertonicity Extensor Tone Description Moderate Hypertonicity PT-OP-J Posture/Palpation/Skin Start: 03/08/22 17:00 Freq: Status: Active Protocol: Document 08/21/22 15:15 DCW (Rec: 08/21/22 15:38 DCW [id number]) Posture Evaluation Comments Posture Comments Significant improvement with core control, able to resist moderate sternal push and self -correct back to sitting position with no LOB. PT-OP-M Strength Start: 08/21/22 15:38 Freq: Status: Active Protocol: Document 08/21/22 15:15 DCW (Rec: 08/21/22 15:40 DCW [id number]) Hip Strength Hip Manual Muscle Testing Right Extension (S1) 2- Poor- Adduction 2- Poor- Left Extension (S1) 1 Trace Adduction 0 Zero Knee Strength Knee Manual Muscle Testing Right Flexion (S2) 1 Trace Extension (L3) 1 Trace Left Flexion (S2) 1 Trace Extension (L3) 0 Zero PT-OP-Q Treatments Start: 03/08/22 17:00 Freq: Status: Active Protocol: Document 11/14/22 13:36 SP (Rec: 11/14/22 14:29 SP [id number]) Cardio Equipment Recumbent Elliptical (Biodex) Duration (Minutes) 10 Resistance 4 Seat Position 10 Other w/c<->Biodex using UEs ( lateral scoot), gait belt, Mod Ax1 Therapeutic Activity Therapeutic Activity sit to stander Reps/Minutes 2 trials stands approx 20 min Comments in//bars, 2 person (1 posterior pelvic/low back support, 2nd person stander control) Noted quad and gluteal firing. Mod cues for postural CS elongation, TS extension while leaning back into supportive strap. Doesn't come to full stand due to R>L flexor tone in HS and hip flexor. Less BUE support on //bars or stander bars approx 25%. 10 min, 3 min, time set/ recovery time between reps squat/lateral scoot transfer Name w/c<> biodex Reps/Minutes x2 Comments Mod A throughout gait belt, while support anterior knees to support extension. Cues to patient small pacing transition over/back w/ core and UEs. PT-OP-T Assessment and Plan Start: 03/08/22 17:00 Freq: Status: Active Protocol: Document 11/14/22 13:36 SP (Rec: 11/14/22 14:29 SP [id number]) Physical Therapy Assessment Goals Three Impairment Pt does not have any motor function throughout bilateral LEs Short Term Goal (STG) Pt to demonstrate 1/5 trace motor contraction in at least one quad in order to begin focus on LE mobility if neural functional return begins. STG Duration Met [place] Goal (LTG) Pt to demonstrate right quad strength to at least 2/5, demonstrating movement into ROM in an antigravity position LTG Duration 11/19/22 - improving Two Impairment Pt struggles to perform slideboard car transfer due to upward tilt [place] Goal (LTG) Pt to demonstrate car transfer SBA using slideboard. 07/30/22: progressing: provides support for trunk stability while pt completes transfer self using slidboard and use over head doorframe handles and car door. has to place/remove slide board. Mod A uphill onto biodex, CG/ MIn A descend off biodex use slideboard. LTG Duration Met One Impairment Pt does not have an appropriate home exercise program Short Term Goal (STG) Pt to be independent and compliant with an appropriate HEP 07/30/22: progressing: resisted tricep ext, OH raises in w/c, supine HABD, added scaption OH B #2. STG Duration 11/19/22 Progressing Assessment Summary Assessment Pt improved standing tolerance into almost full extension decreased flexion spasticity flexion reactions, good posterior chain stretch standing with strap support under ischial tuberosity today up to 10 min, 3 min reps, 25% UE support on sit/stander bar lift bars. Physical Therapy Plan Frequency and Duration Frequency of Treatment 2x/Week Plan of Care Start Date 08/21/22 Plan of Care End Date 11/19/22 Therapeutic Interventions Therapeutic Interventions Aquatic Therapy,Balance Training,Coordination Training ,Gait Training,Home Exercise Program,Manual Therapy, Neuromuscular Re-education, Orthotic/Prosthetic Management ,Patient/Caregiver Education, Self-Care/Home Management, Sensory Integration,Soft Tissue Mobilization, Therapeutic Activities, Therapeutic Exercises, Wheelchair Management Next Visit Focus/Plan Next Note Type Progress Note Next Visit Plan Update POC next tx. Continue encourage quad/glut fac in sit to stander with upright posturing. POC: Continue UE and core strengthening, LE PROM and manual stretching. Transfers, mobility, LE ROM
--- NOTE | 2022-11-18 14:49 | PT.OTN ---
Current Diagnoses Paraplegia, unspecified (11/18/22) Other specified personal risk factors, not elsewhere classified (11/18/22) Other specified postprocedural states (11/18/22) Physical Therapy Treatment Note PT-OP-A Visit Information Start: 03/08/22 17:00 Freq: Status: Active Protocol: Document 11/18/22 14:01 DCW (Rec: 11/18/22 14:49 DCW [id number]) Out-Patient Physical Therapy Visit Information Visit Information Visit Type Progress Note Visit Start Time 14:01 Visit Stop Time 14:45 Total Visit Minutes 44 Visit Number 62 Number of CORPORATE ASSOCIATE Visits 0 Evaluation Information Evaluation Date 03/08/22 PT-OP-B Current Condition Start: 03/08/22 17:00 Freq: Status: Active Protocol: Document 03/08/22 11:15 DCW (Rec: 03/08/22 17:11 DCW [id number]) Current Condition History of Current Condition Onset Date 12/16/21 Current Complaints Paraplegia History of Current Condition Pt is a 71 year old male with a very unfortunate medical history. Pt was hiking [email or web address] on 12/16/21 with a friend, finished up, drive back to his friend's home to drop him off, and noticed his left leg was collapsing. By the time pt drove home, both legs were giving out and numb. Pt was suddenly paralized from the waist down, was taken to the ED, and was flown to [facility] on 12/17/21. The following day, he underwent a laminectomy to relieve pressure from the thoracic epidural hematoma which had developed following his hike, which was pressing on his spinal cord. Following surgery , pt was in recovery for a week and was then transfered to rehab for 20 days, when he was finally discharged home in a wheelchair on 01/19/22. Pt reports his surgeon informed him that it is a possibility that he gets some return of nerve function. Has experienced some changes in his right LE, but has no motor function at this time from ~ T10 down. Minimal sensory return on right side, none on left. Pt has been anxious to get in to therapy and do everything he can to help return to function. Pt's , who attended his evaluation, notes that she has been doing a lot of PROM in his legs at night to keep everything moving. Pt can feel some stretching during PROM in his right leg. Pt has additionally already started occupational therapy, and has been practicing some seated stabilization. Pt transfers with a slide board, but notes it is difficult to do into his car, because he has to transfer upward at an incline. Treatment Goals Patient/Caregiver Goals I will do anything possible to get out of this wheelchair. My neurologist told me he has seen people recover from this , so I am not giving up hope. PT-OP-C Subjective Start: 03/08/22 17:00 Freq: Status: Active Protocol: Document 11/18/22 14:01 DCW (Rec: 11/18/22 14:49 DCW [id number]) OP-PT Subjective Patient Comments Patient Comments Pt concerned that he has a two week break from therapy due to scheduling issues, is hoping that he'll be able to get in if there is a cancelation. PT-OP-G Mobility & Gait Start: 03/08/22 17:00 Freq: Status: Active Protocol: Document 08/21/22 15:15 DCW (Rec: 08/21/22 15:38 DCW [id number]) OP Mobility Evaluation Transfers Bed to Chair Transfers Transfers using UE Wheelchair Management Type of Wheelchair Manual w/c PT-OP-H Neuro Start: 03/08/22 17:00 Freq: Status: Active Protocol: Document 08/21/22 15:15 DCW (Rec: 08/21/22 15:38 DCW [id number]) Sensation Evaluation Gross Sensation Gross Sensation Left LE Impaired,Right LE Impaired,Trunk Impaired Sensation Description Paresthesia,Numbness,Tingling, Pins & Jay,Burning Dermatome Impairments L1,L2,L3,L4,L5,S1,S2,S3,S4-5 Location Details Right Leg Light Touch Impaired Sharp/Dull Impaired Deep Pressure Impaired Hot/Cold Absent Protective Sensation Absent Proprioception (Position) Impaired Kinesthesia (Movement) Impaired Two-Point Discrimination Absent Tactile Localization Impaired Stereognosis Impaired Left Leg Light Touch Absent Sharp/Dull Absent Deep Pressure Impaired Hot/Cold Absent Protective Sensation Absent Proprioception (Position) Absent Kinesthesia (Movement) Impaired Two-Point Discrimination Absent Tactile Localization Absent Stereognosis Absent Deep Tendon Reflex & Clonus Assessment Deep Tendon Reflex Right Achilles Deep Tendon Reflex 1+ Diminished Right Patellar Deep Tendon Reflex 2+ Normal Left Achilles Deep Tendon Reflex 1+ Diminished Left Patellar Deep Tendon Reflex 0 Absent Muscle Tone Tone Assessment Right Lower Extremity Flexor Tone Description Moderate Hypertonicity Extensor Tone Description Moderate Hypertonicity Left Lower Extremity Flexor Tone Description Moderate Hypertonicity Extensor Tone Description Moderate Hypertonicity PT-OP-J Posture/Palpation/Skin Start: 03/08/22 17:00 Freq: Status: Active Protocol: Document 08/21/22 15:15 DCW (Rec: 08/21/22 15:38 DCW [id number]) Posture Evaluation Comments Posture Comments Significant improvement with core control, able to resist moderate sternal push and self -correct back to sitting position with no LOB. PT-OP-M Strength Start: 08/21/22 15:38 Freq: Status: Active Protocol: Document 08/21/22 15:15 DCW (Rec: 08/21/22 15:40 DCW [id number]) Hip Strength Hip Manual Muscle Testing Right Extension (S1) 2- Poor- Adduction 2- Poor- Left Extension (S1) 1 Trace Adduction 0 Zero Knee Strength Knee Manual Muscle Testing Right Flexion (S2) 1 Trace Extension (L3) 1 Trace Left Flexion (S2) 1 Trace Extension (L3) 0 Zero PT-OP-Q Treatments Start: 03/08/22 17:00 Freq: Status: Active Protocol: Document 11/18/22 14:01 DCW (Rec: 11/18/22 14:49 DCW [id number]) Cardio Equipment Recumbent Elliptical (Biodex) Duration (Minutes) 10 Resistance 6 Seat Position 10 Other w/c<->Biodex using UEs ( lateral scoot), gait belt, Mod Ax1 Therapeutic Activity Therapeutic Activity sit to stander Reps/Minutes 2 trials stands approx 12 min each Comments in//bars, 2 person (1 posterior pelvic/low back support, 2nd person stander control) Noted quad and gluteal firing. Mod cues for postural CS elongation, TS extension while leaning back into supportive strap. Doesn't come to full stand due to R>L flexor tone in HS and hip flexor. Less BUE support on //bars or stander bars approx 25%. PT-OP-T Assessment and Plan Start: 03/08/22 17:00 Freq: Status: Active Protocol: Document 11/18/22 14:01 DCW (Rec: 11/18/22 14:49 DCW [id number]) Physical Therapy Assessment Goals Three Impairment Pt does not have any motor function throughout bilateral LEs Short Term Goal (STG) Pt to demonstrate 1/5 trace motor contraction in at least one quad in order to begin focus on LE mobility if neural functional return begins. STG Duration Met Deckhand Sponge Boat Goal (LTG) Pt to demonstrate right quad strength to at least 2/5, demonstrating movement into ROM in an antigravity position LTG Duration 02/16/23 - improving Two Impairment Pt struggles to perform slideboard car transfer due to upward tilt Longterm Goal (LTG) Pt to demonstrate car transfer SBA using slideboard. 07/30/22: progressing: provides support for trunk stability while pt completes transfer self using slidboard and use over head doorframe handles and car door. has to place/remove slide board. Mod A uphill onto biodex, CG/ MIn A descend off biodex use slideboard. LTG Duration Met One Impairment Pt does not have an appropriate home exercise program Short Term Goal (STG) Pt to be independent and compliant with an appropriate HEP 07/30/22: progressing: resisted tricep ext, OH raises in w/c, supine HABD, added scaption OH B #2. STG Duration 01/20/23 Progressing Assessment Summary Assessment Pt continues to improve with standing, able to put some weight through his legs, able to keep himself upright with stander raised to maximum height. Plan to shorten straps next visit in order to increase height pt can be lifted to, currently using second hole on lift straps. Pt continues to make improvements with force through his legs, LE sensation , core control, and overall mobility. Pt will likely continue to benefit from skilled therapy during recovery from spinal cord injury. Physical Therapy Plan Frequency and Duration Frequency of Treatment 2x/Week Plan of Care Start Date 11/18/22 Plan of Care End Date 02/16/23 Therapeutic Interventions Therapeutic Interventions Aquatic Therapy,Balance Training,Coordination Training ,Gait Training,Home Exercise Program,Manual Therapy, Neuromuscular Re-education, Orthotic/Prosthetic Management ,Patient/Caregiver Education, Self-Care/Home Management, Sensory Integration,Soft Tissue Mobilization, Therapeutic Activities, Therapeutic Exercises, Wheelchair Management Next Visit Focus/Plan Next Note Type Progress Note Next Visit Plan Update POC next tx. Continue encourage quad/glut fac in sit to stander with upright posturing. POC: Continue UE and core strengthening, LE PROM and manual stretching. Transfers, mobility, LE ROM
--- NOTE | 2022-11-18 14:49 | PT.OPPOC ---
Physical, Occupational & Speech Therapy At [facility] Current Diagnoses Paraplegia, unspecified (11/18/22) Other specified personal risk factors, not elsewhere classified (11/18/22) Other specified postprocedural states (11/18/22) Visit Care Team Role Provider Type Octavio Yates MD Family Provider Physician Primary Care Provider Specialty: Family Practice Address: [address] [place] [address], [id number] Email: [email or web address] Arias PA-C Attending Provider Advanced Body Sander Referring Provider Specialty: Medical Address: [address] [place] [address] [place], [address] Email: [email or web address] Plan Of Care PT-OP-T Assessment and Plan Start: 03/08/22 17:00 Freq: Status: Active Protocol: Document 11/18/22 14:01 DCW (Rec: 11/18/22 14:49 DCW [id number]) Physical Therapy Assessment Goals Three Impairment Pt does not have any motor function throughout bilateral LEs Short Term Goal (STG) Pt to demonstrate 1/5 trace motor contraction in at least one quad in order to begin focus on LE mobility if neural functional return begins. STG Duration Met Fdc Goal (LTG) Pt to demonstrate right quad strength to at least 2/5, demonstrating movement into ROM in an antigravity position LTG Duration 02/16/23 - improving Two Impairment Pt struggles to perform slideboard car transfer due to upward tilt Fdc Goal (LTG) Pt to demonstrate car transfer SBA using slideboard. 07/30/22: progressing: provides support for trunk stability while pt completes transfer self using slidboard and use over head doorframe handles and car door. has to place/remove slide board. Mod A uphill onto biodex, CG/ MIn A descend off biodex use slideboard. LTG Duration Met One Impairment Pt does not have an appropriate home exercise program Short Term Goal (STG) Pt to be independent and compliant with an appropriate HEP 07/30/22: progressing: resisted tricep ext, OH raises in w/c, supine HABD, added scaption OH B #2. STG Duration 01/20/23 Progressing Assessment Summary Assessment Pt continues to improve with standing, able to put some weight through his legs, able to keep himself upright with stander raised to maximum height. Plan to shorten straps next visit in order to increase height pt can be lifted to, currently using second hole on lift straps. Pt continues to make improvements with force through his legs, LE sensation , core control, and overall mobility. Pt will likely continue to benefit from skilled therapy during recovery from spinal cord injury. Physical Therapy Plan Frequency and Duration Frequency of Treatment 2x/Week Plan of Care Start Date 11/18/22 Plan of Care End Date 02/16/23 Therapeutic Interventions Therapeutic Interventions Aquatic Therapy,Balance Training,Coordination Training ,Gait Training,Home Exercise Program,Manual Therapy, Neuromuscular Re-education, Orthotic/Prosthetic Management ,Patient/Caregiver Education, Self-Care/Home Management, Sensory Integration,Soft Tissue Mobilization, Therapeutic Activities, Therapeutic Exercises, Wheelchair Management Next Visit Focus/Plan Next Note Type Progress Note Next Visit Plan Update POC next tx. Continue encourage quad/glut fac in sit to stander with upright posturing. POC: Continue UE and core strengthening, LE PROM and manual stretching. Transfers, mobility, LE ROM Plan of Care Dates Plan of Care Start Date 11/18/22 Plan of Care End Date 02/16/23 Electronically Signed by: Jean Ruggiero, PT 11/18/22 [id number] If you are in agreement with this Plan of Care, please return a signed and dated copy. I have reviewed this Plan of Care and certify that the skilled therapy services above are required to meet the patient?s needs. Physician Signature Date Printed Name and Credentials Clinical Instructor Signature Printed Name and Credentials
--- NOTE | 2022-11-28 16:29 | PT.OTN ---
Current Diagnoses Paraplegia, unspecified (11/28/22) Other specified personal risk factors, not elsewhere classified (11/28/22) Other specified postprocedural states (11/28/22) Physical Therapy Treatment Note PT-OP-A Visit Information Start: 03/08/22 17:00 Freq: Status: Active Protocol: Document 11/28/22 15:45 DCW (Rec: 11/28/22 16:28 DCW [id number]) Out-Patient Physical Therapy Visit Information Visit Information Visit Type Treatment Note Visit Start Time 15:45 Visit Stop Time 16:30 Total Visit Minutes 45 Visit Number 63 Number of LETTUCE TRIMMER Visits 0 Evaluation Information Evaluation Date 03/08/22 PT-OP-B Current Condition Start: 03/08/22 17:00 Freq: Status: Active Protocol: Document 03/08/22 11:15 DCW (Rec: 03/08/22 17:11 DCW [id number]) Current Condition History of Current Condition Onset Date 12/16/21 Current Complaints Paraplegia History of Current Condition Pt is a 71 year old male with a very unfortunate medical history. Pt was hiking [employer] on 12/16/21 with a friend, finished up, drive back to his friend's home to drop him off, and noticed his left leg was collapsing. By the time pt drove home, both legs were giving out and numb. Pt was suddenly paralized from the waist down, was taken to the ED, and was flown to [facility] on 12/17/21. The following day, he underwent a laminectomy to relieve pressure from the thoracic epidural hematoma which had developed following his hike, which was pressing on his spinal cord. Following surgery , pt was in recovery for a week and was then transfered to rehab for 20 days, when he was finally discharged home in a wheelchair on 01/19/22. Pt reports his surgeon informed him that it is a possibility that he gets some return of nerve function. Has experienced some changes in his right LE, but has no motor function at this time from ~ T10 down. Minimal sensory return on right side, none on left. Pt has been anxious to get in to therapy and do everything he can to help return to function. Pt's , who attended his evaluation, notes that she has been doing a lot of PROM in his legs at night to keep everything moving. Pt can feel some stretching during PROM in his right leg. Pt has additionally already started occupational therapy, and has been practicing some seated stabilization. Pt transfers with a slide board, but notes it is difficult to do into his car, because he has to transfer upward at an incline. Treatment Goals Patient/Caregiver Goals I will do anything possible to get out of this wheelchair. My neurologist told me he has seen people recover from this , so I am not giving up hope. PT-OP-C Subjective Start: 03/08/22 17:00 Freq: Status: Active Protocol: Document 11/28/22 15:45 DCW (Rec: 11/28/22 16:28 DCW [id number]) OP-PT Subjective Patient Comments Patient Comments Pt reports he got a new hospital bed, was just set up this morning. PT-OP-G Mobility & Gait Start: 03/08/22 17:00 Freq: Status: Active Protocol: Document 08/21/22 15:15 DCW (Rec: 08/21/22 15:38 DCW [id number]) OP Mobility Evaluation Transfers Bed to Chair Transfers Transfers using UE Wheelchair Management Type of Wheelchair Manual w/c PT-OP-H Neuro Start: 03/08/22 17:00 Freq: Status: Active Protocol: Document 08/21/22 15:15 DCW (Rec: 08/21/22 15:38 DCW [id number]) Sensation Evaluation Gross Sensation Gross Sensation Left LE Impaired,Right LE Impaired,Trunk Impaired Sensation Description Paresthesia,Numbness,Tingling, Pins & Bertrand,Burning Dermatome Impairments L1,L2,L3,L4,L5,S1,S2,S3,S4-5 Location Details Right Leg Light Touch Impaired Sharp/Dull Impaired Deep Pressure Impaired Hot/Cold Absent Protective Sensation Absent Proprioception (Position) Impaired Kinesthesia (Movement) Impaired Two-Point Discrimination Absent Tactile Localization Impaired Stereognosis Impaired Left Leg Light Touch Absent Sharp/Dull Absent Deep Pressure Impaired Hot/Cold Absent Protective Sensation Absent Proprioception (Position) Absent Kinesthesia (Movement) Impaired Two-Point Discrimination Absent Tactile Localization Absent Stereognosis Absent Deep Tendon Reflex & Clonus Assessment Deep Tendon Reflex Right Achilles Deep Tendon Reflex 1+ Diminished Right Patellar Deep Tendon Reflex 2+ Normal Left Achilles Deep Tendon Reflex 1+ Diminished Left Patellar Deep Tendon Reflex 0 Absent Muscle Tone Tone Assessment Right Lower Extremity Flexor Tone Description Moderate Hypertonicity Extensor Tone Description Moderate Hypertonicity Left Lower Extremity Flexor Tone Description Moderate Hypertonicity Extensor Tone Description Moderate Hypertonicity PT-OP-J Posture/Palpation/Skin Start: 03/08/22 17:00 Freq: Status: Active Protocol: Document 08/21/22 15:15 DCW (Rec: 08/21/22 15:38 DCW [id number]) Posture Evaluation Comments Posture Comments Significant improvement with core control, able to resist moderate sternal push and self -correct back to sitting position with no LOB. PT-OP-M Strength Start: 08/21/22 15:38 Freq: Status: Active Protocol: Document 08/21/22 15:15 DCW (Rec: 08/21/22 15:40 DCW [id number]) Hip Strength Hip Manual Muscle Testing Right Extension (S1) 2- Poor- Adduction 2- Poor- Left Extension (S1) 1 Trace Adduction 0 Zero Knee Strength Knee Manual Muscle Testing Right Flexion (S2) 1 Trace Extension (L3) 1 Trace Left Flexion (S2) 1 Trace Extension (L3) 0 Zero PT-OP-Q Treatments Start: 03/08/22 17:00 Freq: Status: Active Protocol: Document 11/28/22 15:45 DCW (Rec: 11/28/22 16:28 DCW [id number]) Cardio Equipment Recumbent Elliptical (Biodex) Duration (Minutes) 10 Resistance 6 Seat Position 10 Other w/c<->Biodex using UEs ( lateral scoot), gait belt, Mod Ax1 Therapeutic Activity Therapeutic Activity sit to stander Reps/Minutes 2 trials stands approx 14 min each Comments in//bars, 2 person (1 posterior pelvic/low back support, 2nd person stander control) Noted quad and gluteal firing. Mod cues for postural CS elongation, TS extension while leaning back into supportive strap. Doesn't come to full stand due to R>L flexor tone in HS and hip flexor. Less BUE support on //bars or stander bars approx 25%. Used scale under feet to determine WB through legs. Zeroed out with feet on scale sitting, additional 40 pounds added in standing squat/lateral scoot transfer Name w/c<> biodex Reps/Minutes x2 Comments Mod A throughout gait belt, while support anterior knees to support extension. Cues to patient small pacing transition over/back w/ core and UEs. PT-OP-T Assessment and Plan Start: 03/08/22 17:00 Freq: Status: Active Protocol: Document 11/28/22 15:45 DCW (Rec: 11/28/22 16:28 DCW [id number]) Physical Therapy Assessment Goals Three Impairment Pt does not have any motor function throughout bilateral LEs Short Term Goal (STG) Pt to demonstrate 1/5 trace motor contraction in at least one quad in order to begin focus on LE mobility if neural functional return begins. STG Duration Met Bank Accountant Goal (LTG) Pt to demonstrate right quad strength to at least 2/5, demonstrating movement into ROM in an antigravity position LTG Duration 02/16/23 - improving Two Impairment Pt struggles to perform slideboard car transfer due to upward tilt Bank Accountant Goal (LTG) Pt to demonstrate car transfer SBA using slideboard. 07/30/22: progressing: provides support for trunk stability while pt completes transfer self using slidboard and use over head doorframe handles and car door. has to place/remove slide board. Mod A uphill onto biodex, CG/ MIn A descend off biodex use slideboard. LTG Duration Met One Impairment Pt does not have an appropriate home exercise program Short Term Goal (STG) Pt to be independent and compliant with an appropriate HEP 07/30/22: progressing: resisted tricep ext, OH raises in w/c, supine HABD, added scaption OH B #2. STG Duration 01/20/23 Progressing Assessment Summary Assessment With stander, used scale under feet to determine WB through legs. Zeroed out with feet on scale sitting, additional 40-> 60 pounds added in standing. Physical Therapy Plan Frequency and Duration Frequency of Treatment 2x/Week Plan of Care Start Date 11/18/22 Plan of Care End Date 02/16/23 Therapeutic Interventions Therapeutic Interventions Aquatic Therapy,Balance Training,Coordination Training ,Gait Training,Home Exercise Program,Manual Therapy, Neuromuscular Re-education, Orthotic/Prosthetic Management ,Patient/Caregiver Education, Self-Care/Home Management, Sensory Integration,Soft Tissue Mobilization, Therapeutic Activities, Therapeutic Exercises, Wheelchair Management Next Visit Focus/Plan Next Note Type Treatment Note Next Visit Plan Continue encourage quad/glut fac in sit to stander with upright posturing. POC: Continue UE and core strengthening, LE PROM and manual stretching. Transfers, mobility, LE ROM
--- NOTE | 2022-12-03 16:33 | PT.OTN ---
Current Diagnoses Paraplegia, unspecified (12/03/22) Other specified personal risk factors, not elsewhere classified (12/03/22) Other specified postprocedural states (12/03/22) Physical Therapy Treatment Note PT-OP-A Visit Information Start: 03/08/22 17:00 Freq: Status: Active Protocol: Document 12/03/22 15:51 DCW (Rec: 12/03/22 16:33 DCW [id number]) Out-Patient Physical Therapy Visit Information Visit Information Visit Type Treatment Note Visit Start Time 15:51 Visit Stop Time 16:30 Total Visit Minutes 39 Visit Number 64 Number of ENGINEER STATION MAINLINE Visits 0 Evaluation Information Evaluation Date 03/08/22 PT-OP-B Current Condition Start: 03/08/22 17:00 Freq: Status: Active Protocol: Document 03/08/22 11:15 DCW (Rec: 03/08/22 17:11 DCW [id number]) Current Condition History of Current Condition Onset Date 12/16/21 Current Complaints Paraplegia History of Current Condition Pt is a 71 year old male with a very unfortunate medical history. Pt was hiking [place] on 12/16/21 with a friend, finished up, drive back to his friend's home to drop him off, and noticed his left leg was collapsing. By the time pt drove home, both legs were giving out and numb. Pt was suddenly paralized from the waist down, was taken to the ED, and was flown to [facility] on 12/17/21. The following day, he underwent a laminectomy to relieve pressure from the thoracic epidural hematoma which had developed following his hike, which was pressing on his spinal cord. Following surgery , pt was in recovery for a week and was then transfered to rehab for 20 days, when he was finally discharged home in a wheelchair on 01/19/22. Pt reports his surgeon informed him that it is a possibility that he gets some return of nerve function. Has experienced some changes in his right LE, but has no motor function at this time from ~ T10 down. Minimal sensory return on right side, none on left. Pt has been anxious to get in to therapy and do everything he can to help return to function. Pt's , who attended his evaluation, notes that she has been doing a lot of PROM in his legs at night to keep everything moving. Pt can feel some stretching during PROM in his right leg. Pt has additionally already started occupational therapy, and has been practicing some seated stabilization. Pt transfers with a slide board, but notes it is difficult to do into his car, because he has to transfer upward at an incline. Treatment Goals Patient/Caregiver Goals I will do anything possible to get out of this wheelchair. My neurologist told me he has seen people recover from this , so I am not giving up hope. PT-OP-C Subjective Start: 03/08/22 17:00 Freq: Status: Active Protocol: Document 12/03/22 15:51 DCW (Rec: 12/03/22 16:33 DCW [id number]) OP-PT Subjective Patient Comments Patient Comments Some nights, I sleep as sound as I can be, no spasms or anything, and otherthings, I'm just rocking and rolling all night long and just can't sleep a wink. PT-OP-G Mobility & Gait Start: 03/08/22 17:00 Freq: Status: Active Protocol: Document 08/21/22 15:15 DCW (Rec: 08/21/22 15:38 DCW [id number]) OP Mobility Evaluation Transfers Bed to Chair Transfers Transfers using UE Wheelchair Management Type of Wheelchair Manual w/c PT-OP-H Neuro Start: 03/08/22 17:00 Freq: Status: Active Protocol: Document 08/21/22 15:15 DCW (Rec: 08/21/22 15:38 DCW [id number]) Sensation Evaluation Gross Sensation Gross Sensation Left LE Impaired,Right LE Impaired,Trunk Impaired Sensation Description Paresthesia,Numbness,Tingling, Pins & Baldwin,Burning Dermatome Impairments L1,L2,L3,L4,L5,S1,S2,S3,S4-5 Location Details Right Leg Light Touch Impaired Sharp/Dull Impaired Deep Pressure Impaired Hot/Cold Absent Protective Sensation Absent Proprioception (Position) Impaired Kinesthesia (Movement) Impaired Two-Point Discrimination Absent Tactile Localization Impaired Stereognosis Impaired Left Leg Light Touch Absent Sharp/Dull Absent Deep Pressure Impaired Hot/Cold Absent Protective Sensation Absent Proprioception (Position) Absent Kinesthesia (Movement) Impaired Two-Point Discrimination Absent Tactile Localization Absent Stereognosis Absent Deep Tendon Reflex & Clonus Assessment Deep Tendon Reflex Right Achilles Deep Tendon Reflex 1+ Diminished Right Patellar Deep Tendon Reflex 2+ Normal Left Achilles Deep Tendon Reflex 1+ Diminished Left Patellar Deep Tendon Reflex 0 Absent Muscle Tone Tone Assessment Right Lower Extremity Flexor Tone Description Moderate Hypertonicity Extensor Tone Description Moderate Hypertonicity Left Lower Extremity Flexor Tone Description Moderate Hypertonicity Extensor Tone Description Moderate Hypertonicity PT-OP-J Posture/Palpation/Skin Start: 03/08/22 17:00 Freq: Status: Active Protocol: Document 08/21/22 15:15 DCW (Rec: 08/21/22 15:38 DCW [id number]) Posture Evaluation Comments Posture Comments Significant improvement with core control, able to resist moderate sternal push and self -correct back to sitting position with no LOB. PT-OP-M Strength Start: 08/21/22 15:38 Freq: Status: Active Protocol: Document 08/21/22 15:15 DCW (Rec: 08/21/22 15:40 DCW [id number]) Hip Strength Hip Manual Muscle Testing Right Extension (S1) 2- Poor- Adduction 2- Poor- Left Extension (S1) 1 Trace Adduction 0 Zero Knee Strength Knee Manual Muscle Testing Right Flexion (S2) 1 Trace Extension (L3) 1 Trace Left Flexion (S2) 1 Trace Extension (L3) 0 Zero PT-OP-Q Treatments Start: 03/08/22 17:00 Freq: Status: Active Protocol: Document 12/03/22 15:51 DCW (Rec: 12/03/22 16:33 DCW [id number]) Cardio Equipment Recumbent Elliptical (Biodex) Duration (Minutes) 10 Resistance 6 Seat Position 10 Other w/c<->Biodex using UEs ( lateral scoot), gait belt, Mod Ax1 Therapeutic Activity Therapeutic Activity sit to stander Name Use 3 loop hole on strap Reps/Minutes 2 trials stands approx 14 min each Comments in//bars, 2 person (1 posterior pelvic/low back support, 2nd person stander control) Noted quad and gluteal firing. Mod cues for postural CS elongation, TS extension while leaning back into supportive strap. Doesn't come to full stand due to R>L flexor tone in HS and hip flexor. Less BUE support on //bars or stander bars approx 25%. Used scale under feet to determine WB through legs. Zeroed out with feet on scale sitting, additional 40-60 pounds added in standing squat/lateral scoot transfer Name w/c<> biodex Reps/Minutes x2 Comments Mod A throughout gait belt, while support anterior knees to support extension. Cues to patient small pacing transition over/back w/ core and UEs. PT-OP-T Assessment and Plan Start: 03/08/22 17:00 Freq: Status: Active Protocol: Document 12/03/22 15:51 DCW (Rec: 12/03/22 16:33 DCW [id number]) Physical Therapy Assessment Impairments Impairments Activity Tolerance,Balance, Coordination,Functional Activities,Functional Mobility ,Gait,Integument,Sensation, Soft Tissue Mobility,Strength, Tone,Transfers Goals Three Impairment Pt does not have any motor function throughout bilateral LEs Short Term Goal (STG) Pt to demonstrate 1/5 trace motor contraction in at least one quad in order to begin focus on LE mobility if neural functional return begins. STG Duration Met Occupational Therapist Assistant Goal (LTG) Pt to demonstrate right quad strength to at least 2/5, demonstrating movement into ROM in an antigravity position LTG Duration 02/16/23 - improving Two Impairment Pt struggles to perform slideboard car transfer due to upward tilt Residential Goal (LTG) Pt to demonstrate car transfer SBA using slideboard. 07/30/22: progressing: provides support for trunk stability while pt completes transfer self using slidboard and use over head doorframe handles and car door. has to place/remove slide board. Mod A uphill onto biodex, CG/ MIn A descend off biodex use slideboard. LTG Duration Met One Impairment Pt does not have an appropriate home exercise program Short Term Goal (STG) Pt to be independent and compliant with an appropriate HEP 07/30/22: progressing: resisted tricep ext, OH raises in w/c, supine HABD, added scaption OH B #2. STG Duration 01/20/23 Progressing Assessment Summary Assessment Again focused on using stander to get pt to get weight through LEs, tolerated very well. May benefit from occasionally switching back to leg press to check for changes in ability/quality of hip extension. Physical Therapy Plan Frequency and Duration Frequency of Treatment 2x/Week Plan of Care Start Date 11/18/22 Plan of Care End Date 02/16/23 Therapeutic Interventions Therapeutic Interventions Aquatic Therapy,Balance Training,Coordination Training ,Gait Training,Home Exercise Program,Manual Therapy, Neuromuscular Re-education, Orthotic/Prosthetic Management ,Patient/Caregiver Education, Self-Care/Home Management, Sensory Integration,Soft Tissue Mobilization, Therapeutic Activities, Therapeutic Exercises, Wheelchair Management Next Visit Focus/Plan Next Note Type Treatment Note Next Visit Plan Continue encourage quad/glut fac in sit to stander with upright posturing. POC: Continue UE and core strengthening, LE PROM and manual stretching. Transfers, mobility, LE ROM
--- NOTE | 2022-12-05 15:14 | PT.OTN ---
Current Diagnoses Paraplegia, unspecified (12/05/22) Other specified personal risk factors, not elsewhere classified (12/05/22) Other specified postprocedural states (12/05/22) Physical Therapy Treatment Note PT-OP-A Visit Information Start: 03/08/22 17:00 Freq: Status: Active Protocol: Document 12/05/22 14:29 SP (Rec: 12/05/22 15:27 SP [id number]) Out-Patient Physical Therapy Visit Information Visit Information Visit Type Treatment Note Visit Start Time 14:29 Visit Stop Time 15:14 Total Visit Minutes 45 Visit Number 65 Number of ANALYSIS ENGINEER Visits 1 Evaluation Information Evaluation Date 03/08/22 PT-OP-B Current Condition Start: 03/08/22 17:00 Freq: Status: Active Protocol: Document 03/08/22 11:15 DCW (Rec: 03/08/22 17:11 DCW [id number]) Current Condition History of Current Condition Onset Date 12/16/21 Current Complaints Paraplegia History of Current Condition Pt is a 71 year old male with a very unfortunate medical history. Pt was hiking [place] on 12/16/21 with a friend, finished up, drive back to his friend's home to drop him off, and noticed his left leg was collapsing. By the time pt drove home, both legs were giving out and numb. Pt was suddenly paralized from the waist down, was taken to the ED, and was flown to [facility] on 12/17/21. The following day, he underwent a laminectomy to relieve pressure from the thoracic epidural hematoma which had developed following his hike, which was pressing on his spinal cord. Following surgery , pt was in recovery for a week and was then transfered to rehab for 20 days, when he was finally discharged home in a wheelchair on 01/19/22. Pt reports his surgeon informed him that it is a possibility that he gets some return of nerve function. Has experienced some changes in his right LE, but has no motor function at this time from ~ T10 down. Minimal sensory return on right side, none on left. Pt has been anxious to get in to therapy and do everything he can to help return to function. Pt's , who attended his evaluation, notes that she has been doing a lot of PROM in his legs at night to keep everything moving. Pt can feel some stretching during PROM in his right leg. Pt has additionally already started occupational therapy, and has been practicing some seated stabilization. Pt transfers with a slide board, but notes it is difficult to do into his car, because he has to transfer upward at an incline. Treatment Goals Patient/Caregiver Goals I will do anything possible to get out of this wheelchair. My neurologist told me he has seen people recover from this , so I am not giving up hope. PT-OP-C Subjective Start: 03/08/22 17:00 Freq: Status: Active Protocol: Document 12/05/22 14:29 SP (Rec: 12/05/22 15:27 SP [id number]) OP-PT Subjective Patient Comments Patient Comments Pt reports having more spasming/convulsion in legs lately at night more than day, feels is standing up straighter in //bars. He states not making lightening progress but not going backwards. Anderson about [employer] has a evidence based research use of SPI pt with stimiluator, he wants to look into for self . PT-OP-G Mobility & Gait Start: 03/08/22 17:00 Freq: Status: Active Protocol: Document 08/21/22 15:15 DCW (Rec: 08/21/22 15:38 DCW [id number]) OP Mobility Evaluation Transfers Bed to Chair Transfers Transfers using UE Wheelchair Management Type of Wheelchair Manual w/c PT-OP-H Neuro Start: 03/08/22 17:00 Freq: Status: Active Protocol: Document 08/21/22 15:15 DCW (Rec: 08/21/22 15:38 DCW [id number]) Sensation Evaluation Gross Sensation Gross Sensation Left LE Impaired,Right LE Impaired,Trunk Impaired Sensation Description Paresthesia,Numbness,Tingling, [place] & [place],Burning Dermatome Impairments L1,L2,L3,L4,L5,S1,S2,S3,S4-5 Location Details Right Leg Light Touch Impaired Sharp/Dull Impaired Deep Pressure Impaired Hot/Cold Absent Protective Sensation Absent Proprioception (Position) Impaired Kinesthesia (Movement) Impaired Two-Point Discrimination Absent Tactile Localization Impaired Stereognosis Impaired Left Leg Light Touch Absent Sharp/Dull Absent Deep Pressure Impaired Hot/Cold Absent Protective Sensation Absent Proprioception (Position) Absent Kinesthesia (Movement) Impaired Two-Point Discrimination Absent Tactile Localization Absent Stereognosis Absent Deep Tendon Reflex & Clonus Assessment Deep Tendon Reflex Right Achilles Deep Tendon Reflex 1+ Diminished Right Patellar Deep Tendon Reflex 2+ Normal Left Achilles Deep Tendon Reflex 1+ Diminished Left Patellar Deep Tendon Reflex 0 Absent Muscle Tone Tone Assessment Right Lower Extremity Flexor Tone Description Moderate Hypertonicity Extensor Tone Description Moderate Hypertonicity Left Lower Extremity Flexor Tone Description Moderate Hypertonicity Extensor Tone Description Moderate Hypertonicity PT-OP-J Posture/Palpation/Skin Start: 03/08/22 17:00 Freq: Status: Active Protocol: Document 08/21/22 15:15 DCW (Rec: 08/21/22 15:38 DCW [id number]) Posture Evaluation Comments Posture Comments Significant improvement with core control, able to resist moderate sternal push and self -correct back to sitting position with no LOB. PT-OP-M Strength Start: 08/21/22 15:38 Freq: Status: Active Protocol: Document 08/21/22 15:15 DCW (Rec: 08/21/22 15:40 DCW [id number]) Hip Strength Hip Manual Muscle Testing Right Extension (S1) 2- Poor- Adduction 2- Poor- Left Extension (S1) 1 Trace Adduction 0 Zero Knee Strength Knee Manual Muscle Testing Right Flexion (S2) 1 Trace Extension (L3) 1 Trace Left Flexion (S2) 1 Trace Extension (L3) 0 Zero PT-OP-Q Treatments Start: 03/08/22 17:00 Freq: Status: Active Protocol: Document 12/05/22 14:29 SP (Rec: 12/05/22 15:27 SP [id number]) Cardio Equipment Recumbent Elliptical (Biodex) Duration (Minutes) 10 Resistance 6 Seat Position 7>10 Other w/c<->Biodex using UEs ( lateral scoot), gait belt, Mod Ax1 Therapeutic Activity Therapeutic Activity sit to stander Name Use 3 loop hole on strap Reps/Minutes 2 trials stands approx 20 min, 7 min Comments in//bars, 2 person (1 posterior pelvic/low back support, 2nd person stander control) Noted quad and gluteal firing. Mod cues for postural CS elongation, TS extension while leaning back into supportive strap. Doesn't come to full stand due to R>L flexor tone in HS and hip flexor. Less BUE support on stander bars approx 25%. Used scale under feet to determine WB through legs. Zeroed out with feet on scale sitting, additional 40-58 pounds added in standing. squat/lateral scoot transfer Name w/c<> biodex Reps/Minutes x2 Comments Mod A throughout gait belt, while support anterior knees to support extension. Cues to patient small pacing transition over/back w/ core and UEs. PT-OP-T Assessment and Plan Start: 03/08/22 17:00 Freq: Status: Active Protocol: Document 12/05/22 14:29 SP (Rec: 12/05/22 15:27 SP [id number]) Physical Therapy Assessment Goals Three Impairment Pt does not have any motor function throughout bilateral LEs Short Term Goal (STG) Pt to demonstrate 1/5 trace motor contraction in at least one quad in order to begin focus on LE mobility if neural functional return begins. STG Duration Met Forester Aide Goal (LTG) Pt to demonstrate right quad strength to at least 2/5, demonstrating movement into ROM in an antigravity position LTG Duration 02/16/23 - improving Two Impairment Pt struggles to perform slideboard car transfer due to upward tilt [facility]ci Goal (LTG) Pt to demonstrate car transfer SBA using slideboard. 07/30/22: progressing: provides support for trunk stability while pt completes transfer self using slidboard and use over head doorframe handles and car door. has to place/remove slide board. Mod A uphill onto biodex, CG/ MIn A descend off biodex use slideboard. LTG Duration Met One Impairment Pt does not have an appropriate home exercise program Short Term Goal (STG) Pt to be independent and compliant with an appropriate HEP 07/30/22: progressing: resisted tricep ext, OH raises in w/c, supine HABD, added scaption OH B #2. STG Duration 01/20/23 Progressing Assessment Summary Assessment Pt improved elongation CS/TS in standing to day 40-58 lb WB through BLEs up to 20 min, almost full upright standing posture, intermittent stopping allow R LE HS spasming to dissipate. Physical Therapy Plan Frequency and Duration Frequency of Treatment 2x/Week Plan of Care Start Date 11/18/22 Plan of Care End Date 02/16/23 Therapeutic Interventions Therapeutic Interventions Aquatic Therapy,Balance Training,Coordination Training ,Gait Training,Home Exercise Program,Manual Therapy, Neuromuscular Re-education, Orthotic/Prosthetic Management ,Patient/Caregiver Education, Self-Care/Home Management, Sensory Integration,Soft Tissue Mobilization, Therapeutic Activities, Therapeutic Exercises, Wheelchair Management Next Visit Focus/Plan Next Note Type Treatment Note Next Visit Plan Next tx: Alternate Shuttle recovery and sit/stander, recovery next. POC: Continue UE and core strengthening, LE PROM and manual stretching. Transfers, mobility, LE ROM
--- NOTE | 2022-12-09 15:15 | PT.OTN ---
Current Diagnoses Paraplegia, unspecified (12/09/22) Other specified personal risk factors, not elsewhere classified (12/09/22) Other specified postprocedural states (12/09/22) Physical Therapy Treatment Note PT-OP-A Visit Information Start: 03/08/22 17:00 Freq: Status: Active Protocol: Document 12/09/22 14:33 SP (Rec: 12/09/22 15:53 SP [id number]) Out-Patient Physical Therapy Visit Information Visit Information Visit Type Treatment Note Visit Start Time 14:33 Visit Stop Time 15:15 Total Visit Minutes 42 Visit Number 66 Number of COOKING CASING AND DRYING SUPERVISOR Visits 2 Evaluation Information Evaluation Date 03/08/22 PT-OP-B Current Condition Start: 03/08/22 17:00 Freq: Status: Active Protocol: Document 03/08/22 11:15 DCW (Rec: 03/08/22 17:11 DCW [id number]) Current Condition History of Current Condition Onset Date 12/16/21 Current Complaints Paraplegia History of Current Condition Pt is a 71 year old male with a very unfortunate medical history. Pt was hiking [place] on 12/16/21 with a friend, finished up, drive back to his friend's home to drop him off, and noticed his left leg was collapsing. By the time pt drove home, both legs were giving out and numb. Pt was suddenly paralized from the waist down, was taken to the ED, and was flown to [facility] on 12/17/21. The following day, he underwent a laminectomy to relieve pressure from the thoracic epidural hematoma which had developed following his hike, which was pressing on his spinal cord. Following surgery , pt was in recovery for a week and was then transfered to rehab for 20 days, when he was finally discharged home in a wheelchair on 01/19/22. Pt reports his surgeon informed him that it is a possibility that he gets some return of nerve function. Has experienced some changes in his right LE, but has no motor function at this time from ~ T10 down. Minimal sensory return on right side, none on left. Pt has been anxious to get in to therapy and do everything he can to help return to function. Pt's , who attended his evaluation, notes that she has been doing a lot of PROM in his legs at night to keep everything moving. Pt can feel some stretching during PROM in his right leg. Pt has additionally already started occupational therapy, and has been practicing some seated stabilization. Pt transfers with a slide board, but notes it is difficult to do into his car, because he has to transfer upward at an incline. Treatment Goals Patient/Caregiver Goals I will do anything possible to get out of this wheelchair. My neurologist told me he has seen people recover from this , so I am not giving up hope. PT-OP-C Subjective Start: 03/08/22 17:00 Freq: Status: Active Protocol: Document 12/09/22 14:33 SP (Rec: 12/09/22 15:53 SP [id number]) OP-PT Subjective Patient Comments Patient Comments Pt reports has been almost 1 yr since lost use of his LEs status. He stated looking back and progress making, feeling but pleased with ability to do what is currently can. Pt states is able to push his manual w/c over uneven grassy sport field ([place] near high school. PT-OP-G Mobility & Gait Start: 03/08/22 17:00 Freq: Status: Active Protocol: Document 08/21/22 15:15 DCW (Rec: 08/21/22 15:38 DCW [id number]) OP Mobility Evaluation Transfers Bed to Chair Transfers Transfers using UE Wheelchair Management Type of Wheelchair Manual w/c PT-OP-H Neuro Start: 03/08/22 17:00 Freq: Status: Active Protocol: Document 08/21/22 15:15 DCW (Rec: 08/21/22 15:38 DCW [id number]) Sensation Evaluation Gross Sensation Gross Sensation Left LE Impaired,Right LE Impaired,Trunk Impaired Sensation Description Paresthesia,Numbness,Tingling, Pins & [place],Burning Dermatome Impairments L1,L2,L3,L4,L5,S1,S2,S3,S4-5 Location Details Right Leg Light Touch Impaired Sharp/Dull Impaired Deep Pressure Impaired Hot/Cold Absent Protective Sensation Absent Proprioception (Position) Impaired Kinesthesia (Movement) Impaired Two-Point Discrimination Absent Tactile Localization Impaired Stereognosis Impaired Left Leg Light Touch Absent Sharp/Dull Absent Deep Pressure Impaired Hot/Cold Absent Protective Sensation Absent Proprioception (Position) Absent Kinesthesia (Movement) Impaired Two-Point Discrimination Absent Tactile Localization Absent Stereognosis Absent Deep Tendon Reflex & Clonus Assessment Deep Tendon Reflex Right Achilles Deep Tendon Reflex 1+ Diminished Right Patellar Deep Tendon Reflex 2+ Normal Left Achilles Deep Tendon Reflex 1+ Diminished Left Patellar Deep Tendon Reflex 0 Absent Muscle Tone Tone Assessment Right Lower Extremity Flexor Tone Description Moderate Hypertonicity Extensor Tone Description Moderate Hypertonicity Left Lower Extremity Flexor Tone Description Moderate Hypertonicity Extensor Tone Description Moderate Hypertonicity PT-OP-J Posture/Palpation/Skin Start: 03/08/22 17:00 Freq: Status: Active Protocol: Document 08/21/22 15:15 DCW (Rec: 08/21/22 15:38 DCW [id number]) Posture Evaluation Comments Posture Comments Significant improvement with core control, able to resist moderate sternal push and self -correct back to sitting position with no LOB. PT-OP-M Strength Start: 08/21/22 15:38 Freq: Status: Active Protocol: Document 08/21/22 15:15 DCW (Rec: 08/21/22 15:40 DCW [id number]) Hip Strength Hip Manual Muscle Testing Right Extension (S1) 2- Poor- Adduction 2- Poor- Left Extension (S1) 1 Trace Adduction 0 Zero Knee Strength Knee Manual Muscle Testing Right Flexion (S2) 1 Trace Extension (L3) 1 Trace Left Flexion (S2) 1 Trace Extension (L3) 0 Zero PT-OP-Q Treatments Start: 03/08/22 17:00 Freq: Status: Active Protocol: Document 12/09/22 14:33 SP (Rec: 12/09/22 15:53 SP [id number]) Cardio Equipment Recumbent Elliptical (Biodex) Duration (Minutes) 10 Resistance 6 Seat Position 7>10 Other w/c<->Biodex using UEs ( lateral scoot), gait belt, Mod Ax1 Gym Equipment Shuttle Recovery Bilateral Squats Details 1 rep without and rest with 1- 2UE 25% pressure on thighs support LE ext Resistance 12# unassisted x1 rep extension, 12-25# assisted flexion with ability stop Shuttle Recovery Platform Stable Reps/Time 20 min Therapeutic Activity Therapeutic Activity squat/lateral scoot transfer Name w/c<> biodex, w/c<> shuttle recovery Reps/Minutes x2 reps Comments Mod A throughout gait belt, while support anterior knees to support extension. Cues to patient small pacing transition lateral over/back w / core and UEs. PT-OP-T Assessment and Plan Start: 03/08/22 17:00 Freq: Status: Active Protocol: Document 12/09/22 14:33 SP (Rec: 12/09/22 15:53 SP [id number]) Physical Therapy Assessment Goals Three Impairment Pt does not have any motor function throughout bilateral LEs Short Term Goal (STG) Pt to demonstrate 1/5 trace motor contraction in at least one quad in order to begin focus on LE mobility if neural functional return begins. STG Duration Met Semi Conductor Assembler Goal (LTG) Pt to demonstrate right quad strength to at least 2/5, demonstrating movement into ROM in an antigravity position LTG Duration 02/16/23 - improving Two Impairment Pt struggles to perform slideboard car transfer due to upward tilt Penitentiary Goal (LTG) Pt to demonstrate car transfer SBA using slideboard. 07/30/22: progressing: provides support for trunk stability while pt completes transfer self using slidboard and use over head doorframe handles and car door. has to place/remove slide board. Mod A uphill onto biodex, CG/ MIn A descend off biodex use slideboard. LTG Duration Met One Impairment Pt does not have an appropriate home exercise program Short Term Goal (STG) Pt to be independent and compliant with an appropriate HEP 07/30/22: progressing: resisted tricep ext, OH raises in w/c, supine HABD, added scaption OH B #2. STG Duration 01/20/23 Progressing Assessment Summary Assessment Pt was able to complete full BLE knee extension self 1st initial rep slow movement against light resistance ( therapist supported foot and B knee adduction positioning only), 3 reps partial initiated ext, rest reps quad isometric contraction felt by pt and palpated by COOKING CASING AND DRYING SUPERVISOR while providing tapping quad and glut for carry through ROM. As reps progressed pt required 10-40% 1 UE press through 1 thigh to completed BLE ext. Pt required support with cuing for relax to allow eccentric knee flexion return with added 12-25# support. Physical Therapy Plan Frequency and Duration Frequency of Treatment 2x/Week Plan of Care Start Date 11/18/22 Plan of Care End Date 02/16/23 Therapeutic Interventions Therapeutic Interventions Aquatic Therapy,Balance Training,Coordination Training ,Gait Training,Home Exercise Program,Manual Therapy, Neuromuscular Re-education, Orthotic/Prosthetic Management ,Patient/Caregiver Education, Self-Care/Home Management, Sensory Integration,Soft Tissue Mobilization, Therapeutic Activities, Therapeutic Exercises, Wheelchair Management Next Visit Focus/Plan Next Note Type Treatment Note Next Visit Plan Next tx: Alternate Shuttle recovery and sit/stander. *Sit/stander next. POC: Continue UE and core strengthening, LE PROM and manual stretching. Transfers, mobility, LE ROM
--- NOTE | 2022-12-12 16:32 | PT.OTN ---
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 Pt was hiking [employer] on 12/16/21 with a friend, finished up, drive back to his friend's home to drop him off, and noticed his left leg was collapsing. By the time pt drove home, both legs were giving out and numb. Pt was suddenly paralized from the waist down, was taken to the ED, and was flown to [facility] on 12/17/21. The following day, he underwent a laminectomy to relieve pressure from the thoracic epidural hematoma which had developed following his hike, which was pressing on his spinal cord. Following surgery , pt was in recovery for a week and was then transfered to rehab for 20 days, when he was finally discharged home in a wheelchair on 01/19/22. Pt reports his surgeon informed him that it is a possibility that he gets some return of nerve function. Has experienced some changes in his right LE, but has no motor function at this time from ~ T10 down. Minimal sensory return on right side, none on left. Pt has been anxious to get in to therapy and do everything he can to help return to function. Pt's , who attended his evaluation, notes that she has been doing a lot of PROM in his legs at night to keep everything moving. Pt can feel some stretching during PROM in his right leg. Pt has additionally already started occupational therapy, and has been practicing some seated stabilization. Pt transfers with a slide board, but notes it is difficult to do into his car, because he has to transfer upward at an incline. Treatment Goals Patient/Caregiver Goals I will do anything possible to get out of this wheelchair. My neurologist told me he has seen people recover from this , so I am not giving up hope. PT-OP-C Subjective Start: 03/08/22 17:00 Freq: Status: Active Protocol: Document 12/12/22 15:46 DCW (Rec: 12/12/22 16:32 DCW [id number]) OP-PT Subjective Patient Comments Patient Comments Pt doing pretty well, admits his right leg has been really stiff recently. PT-OP-G Mobility & Gait Start: 03/08/22 17:00 Freq: Status: Active Protocol: Document 08/21/22 15:15 DCW (Rec: 08/21/22 15:38 DCW [id number]) OP Mobility Evaluation Transfers Bed to Chair Transfers Transfers using UE Wheelchair Management Type of Wheelchair Manual w/c PT-OP-H Neuro Start: 03/08/22 17:00 Freq: Status: Active Protocol: Document 08/21/22 15:15 DCW (Rec: 08/21/22 15:38 DCW [id number]) Sensation Evaluation Gross Sensation Gross Sensation Left LE Impaired,Right LE Impaired,Trunk Impaired Sensation Description Paresthesia,Numbness,Tingling, Pins & [place],Burning Dermatome Impairments L1,L2,L3,L4,L5,S1,S2,S3,S4-5 Location Details Right Leg Light Touch Impaired Sharp/Dull Impaired Deep Pressure Impaired Hot/Cold Absent Protective Sensation Absent Proprioception (Position) Impaired Kinesthesia (Movement) Impaired Two-Point Discrimination Absent Tactile Localization Impaired Stereognosis Impaired Left Leg Light Touch Absent Sharp/Dull Absent Deep Pressure Impaired Hot/Cold Absent Protective Sensation Absent Proprioception (Position) Absent Kinesthesia (Movement) Impaired Two-Point Discrimination Absent Tactile Localization Absent Stereognosis Absent Deep Tendon Reflex & Clonus Assessment Deep Tendon Reflex Right Achilles Deep Tendon Reflex 1+ Diminished Right Patellar Deep Tendon Reflex 2+ Normal Left Achilles Deep Tendon Reflex 1+ Diminished Left Patellar Deep Tendon Reflex 0 Absent Muscle Tone Tone Assessment Right Lower Extremity Flexor Tone Description Moderate Hypertonicity Extensor Tone Description Moderate Hypertonicity Left Lower Extremity Flexor Tone Description Moderate Hypertonicity Extensor Tone Description Moderate Hypertonicity PT-OP-J Posture/Palpation/Skin Start: 03/08/22 17:00 Freq: Status: Active Protocol: Document 08/21/22 15:15 DCW (Rec: 08/21/22 15:38 DCW [id number]) Posture Evaluation Comments Posture Comments Significant improvement with core control, able to resist moderate sternal push and self -correct back to sitting position with no LOB. PT-OP-M Strength Start: 08/21/22 15:38 Freq: Status: Active Protocol: Document 08/21/22 15:15 DCW (Rec: 08/21/22 15:40 DCW [id number]) Hip Strength Hip Manual Muscle Testing Right Extension (S1) 2- Poor- Adduction 2- Poor- Left Extension (S1) 1 Trace Adduction 0 Zero Knee Strength Knee Manual Muscle Testing Right Flexion (S2) 1 Trace Extension (L3) 1 Trace Left Flexion (S2) 1 Trace Extension (L3) 0 Zero PT-OP-Q Treatments Start: 03/08/22 17:00 Freq: Status: Active Protocol: Document 12/12/22 15:46 DCW (Rec: 12/12/22 16:32 DCW [id number]) Cardio Equipment Recumbent Elliptical (Biodex) Duration (Minutes) 10 Resistance 6 Seat Position 10 Other w/c<->Biodex using UEs ( lateral scoot), gait belt, Mod Ax1 Therapeutic Activity Therapeutic Activity sit to stander Name Use 3 loop hole on strap Reps/Minutes 2 trials stands approx 15 min each Comments in//bars, 2 person (1 posterior pelvic/low back support, 2nd person stander control) Noted quad and gluteal firing. Mod cues for postural CS elongation, TS extension while leaning back into supportive strap. Doesn't come to full stand due to R>L flexor tone in HS and hip flexor. Less BUE support on stander bars approx 25%. Used scale under feet to determine WB through legs. Zeroed out with feet on scale sitting, additional 40-50 pounds added in standing. squat/lateral scoot transfer Name w/c<> biodex Reps/Minutes x2 Comments Mod A throughout gait belt, while support anterior knees to support extension. Cues to patient small pacing transition over/back w/ core and UEs. PT-OP-T Assessment and Plan Start: 03/08/22 17:00 Freq: Status: Active Protocol: Document 12/12/22 15:46 DCW (Rec: 12/12/22 16:32 DCW [id number]) Physical Therapy Assessment Impairments Impairments Activity Tolerance,Balance, Coordination,Functional Activities,Functional Mobility ,Gait,Integument,Sensation, Soft Tissue Mobility,Strength, Tone,Transfers Goals Three Impairment Pt does not have any motor function throughout bilateral LEs Short Term Goal (STG) Pt to demonstrate 1/5 trace motor contraction in at least one quad in order to begin focus on LE mobility if neural functional return begins. STG Duration Met Insulation [place] Goal (LTG) Pt to demonstrate right quad strength to at least 2/5, demonstrating movement into ROM in an antigravity position LTG Duration 02/16/23 - improving Two Impairment Pt struggles to perform slideboard car transfer due to upward tilt Penitentiary Goal (LTG) Pt to demonstrate car transfer SBA using slideboard. 07/30/22: progressing: provides support for trunk stability while pt completes transfer self using slidboard and use over head doorframe handles and car door. has to place/remove slide board. Mod A uphill onto biodex, CG/ MIn A descend off biodex use slideboard. LTG Duration Met One Impairment Pt does not have an appropriate home exercise program Short Term Goal (STG) Pt to be independent and compliant with an appropriate HEP 07/30/22: progressing: resisted tricep ext, OH raises in w/c, supine HABD, added scaption OH B #2. STG Duration 01/20/23 Progressing Assessment Summary Assessment Struggled with extensor tone today, had increased difficulty putting weight through LEs. Was able to get scale to ~50 pounds with repetitive tapping on quads from therapist. Physical Therapy Plan Frequency and Duration Frequency of Treatment 2x/Week Plan of Care Start Date 11/18/22 Plan of Care End Date 02/16/23 Therapeutic Interventions Therapeutic Interventions Aquatic Therapy,Balance Training,Coordination Training ,Gait Training,Home Exercise Program,Manual Therapy, Neuromuscular Re-education, Orthotic/Prosthetic Management ,Patient/Caregiver Education, Self-Care/Home Management, Sensory Integration,Soft Tissue Mobilization, Therapeutic Activities, Therapeutic Exercises, Wheelchair Management Next Visit Focus/Plan Next Note Type Treatment Note Next Visit Plan Next tx: Alternate Shuttle recovery and sit/stander. *Sit/stander next. POC: Continue UE and core strengthening, LE PROM and manual stretching. Transfers, mobility, LE ROM
--- NOTE | 2022-12-16 15:30 | PT.OTN ---
Current Diagnoses Paraplegia, unspecified (12/16/22) Other specified personal risk factors, not elsewhere classified (12/16/22) Other specified postprocedural states (12/16/22) Physical Therapy Treatment Note PT-OP-A Visit Information Start: 03/08/22 17:00 Freq: Status: Active Protocol: Document 12/16/22 14:46 DCW (Rec: 12/16/22 15:29 DCW [id number]) Out-Patient Physical Therapy Visit Information Visit Information Visit Type Treatment Note Visit Start Time 14:46 Visit Stop Time 15:30 Total Visit Minutes 44 Visit Number 68 Number of SUPERINTENDENT PIER Visits 0 Evaluation Information Evaluation Date 03/08/22 PT-OP-B Current Condition Start: 03/08/22 17:00 Freq: Status: Active Protocol: Document 03/08/22 11:15 DCW (Rec: 03/08/22 17:11 DCW [id number]) Current Condition History of Current Condition Onset Date 12/16/21 Current Complaints Paraplegia History of Current Condition Pt is a 71 year old male with a very unfortunate medical history. Pt was hiking [employer] on 12/16/21 with a friend, finished up, drive back to his friend's home to drop him off, and noticed his left leg was collapsing. By the time pt drove home, both legs were giving out and numb. Pt was suddenly paralized from the waist down, was taken to the ED, and was flown to [facility] on 12/17/21. The following day, he underwent a laminectomy to relieve pressure from the thoracic epidural hematoma which had developed following his hike, which was pressing on his spinal cord. Following surgery , pt was in recovery for a week and was then transfered to rehab for 20 days, when he was finally discharged home in a wheelchair on 01/19/22. Pt reports his surgeon informed him that it is a possibility that he gets some return of nerve function. Has experienced some changes in his right LE, but has no motor function at this time from ~ T10 down. Minimal sensory return on right side, none on left. Pt has been anxious to get in to therapy and do everything he can to help return to function. Pt's , who attended his evaluation, notes that she has been doing a lot of PROM in his legs at night to keep everything moving. Pt can feel some stretching during PROM in his right leg. Pt has additionally already started occupational therapy, and has been practicing some seated stabilization. Pt transfers with a slide board, but notes it is difficult to do into his car, because he has to transfer upward at an incline. Treatment Goals Patient/Caregiver Goals I will do anything possible to get out of this wheelchair. My neurologist told me he has seen people recover from this , so I am not giving up hope. PT-OP-C Subjective Start: 03/08/22 17:00 Freq: Status: Active Protocol: Document 12/16/22 14:46 DCW (Rec: 12/16/22 15:29 DCW [id number]) OP-PT Subjective Patient Comments Patient Comments Pt notes that today ho the one year anniversary of his injury. PT-OP-G Mobility & Gait Start: 03/08/22 17:00 Freq: Status: Active Protocol: Document 08/21/22 15:15 DCW (Rec: 08/21/22 15:38 DCW [id number]) OP Mobility Evaluation Transfers Bed to Chair Transfers Transfers using UE Wheelchair Management Type of Wheelchair Manual w/c PT-OP-H Neuro Start: 03/08/22 17:00 Freq: Status: Active Protocol: Document 08/21/22 15:15 DCW (Rec: 08/21/22 15:38 DCW [id number]) Sensation Evaluation Gross Sensation Gross Sensation Left LE Impaired,Right LE Impaired,Trunk Impaired Sensation Description Paresthesia,Numbness,Tingling, Pins & [place],Burning Dermatome Impairments L1,L2,L3,L4,L5,S1,S2,S3,S4-5 Location Details Right Leg Light Touch Impaired Sharp/Dull Impaired Deep Pressure Impaired Hot/Cold Absent Protective Sensation Absent Proprioception (Position) Impaired Kinesthesia (Movement) Impaired Two-Point Discrimination Absent Tactile Localization Impaired Stereognosis Impaired Left Leg Light Touch Absent Sharp/Dull Absent Deep Pressure Impaired Hot/Cold Absent Protective Sensation Absent Proprioception (Position) Absent Kinesthesia (Movement) Impaired Two-Point Discrimination Absent Tactile Localization Absent Stereognosis Absent Deep Tendon Reflex & Clonus Assessment Deep Tendon Reflex Right Achilles Deep Tendon Reflex 1+ Diminished Right Patellar Deep Tendon Reflex 2+ Normal Left Achilles Deep Tendon Reflex 1+ Diminished Left Patellar Deep Tendon Reflex 0 Absent Muscle Tone Tone Assessment Right Lower Extremity Flexor Tone Description Moderate Hypertonicity Extensor Tone Description Moderate Hypertonicity Left Lower Extremity Flexor Tone Description Moderate Hypertonicity Extensor Tone Description Moderate Hypertonicity PT-OP-J Posture/Palpation/Skin Start: 03/08/22 17:00 Freq: Status: Active Protocol: Document 08/21/22 15:15 DCW (Rec: 08/21/22 15:38 DCW [id number]) Posture Evaluation Comments Posture Comments Significant improvement with core control, able to resist moderate sternal push and self -correct back to sitting position with no LOB. PT-OP-M Strength Start: 08/21/22 15:38 Freq: Status: Active Protocol: Document 08/21/22 15:15 DCW (Rec: 08/21/22 15:40 DCW [id number]) Hip Strength Hip Manual Muscle Testing Right Extension (S1) 2- Poor- Adduction 2- Poor- Left Extension (S1) 1 Trace Adduction 0 Zero Knee Strength Knee Manual Muscle Testing Right Flexion (S2) 1 Trace Extension (L3) 1 Trace Left Flexion (S2) 1 Trace Extension (L3) 0 Zero PT-OP-Q Treatments Start: 03/08/22 17:00 Freq: Status: Active Protocol: Document 12/16/22 14:46 DCW (Rec: 12/16/22 15:29 DCW [id number]) Cardio Equipment Recumbent Elliptical (Biodex) Duration (Minutes) 10 Resistance 6 Seat Position 10 Other w/c<->Biodex using UEs ( lateral scoot), gait belt, Mod Ax1 Gym Equipment Shuttle Recovery Bilateral Squats Details without and with BUE assist on thighs LE ext Resistance 12# unassisted, 37#->50# assisted Reps/Time Slight movements when unassisted, assisted back-> eccentric lowering Therapeutic Activity Therapeutic Activity squat/lateral scoot transfer Name w/c<> biodex Reps/Minutes x2 Comments Mod A throughout gait belt, while support anterior knees to support extension. Cues to patient small pacing transition over/back w/ core and UEs. PT-OP-T Assessment and Plan Start: 03/08/22 17:00 Freq: Status: Active Protocol: Document 12/16/22 14:46 DCW (Rec: 12/16/22 15:29 DCW [id number]) Physical Therapy Assessment Impairments Impairments Activity Tolerance,Balance, Coordination,Functional Activities,Functional Mobility ,Gait,Integument,Sensation, Soft Tissue Mobility,Strength, Tone,Transfers Goals Three Impairment Pt does not have any motor function throughout bilateral LEs Short Term Goal (STG) Pt to demonstrate 1/5 trace motor contraction in at least one quad in order to begin focus on LE mobility if neural functional return begins. STG Duration Met Roll Icer Goal (LTG) Pt to demonstrate right quad strength to at least 2/5, demonstrating movement into ROM in an antigravity position LTG Duration 02/16/23 - improving Two Impairment Pt struggles to perform slideboard car transfer due to upward tilt Penitentiary Goal (LTG) Pt to demonstrate car transfer SBA using slideboard. 07/30/22: progressing: provides support for trunk stability while pt completes transfer self using slidboard and use over head doorframe handles and car door. has to place/remove slide board. Mod A uphill onto biodex, CG/ MIn A descend off biodex use slideboard. LTG Duration Met One Impairment Pt does not have an appropriate home exercise program Short Term Goal (STG) Pt to be independent and compliant with an appropriate HEP 07/30/22: progressing: resisted tricep ext, OH raises in w/c, supine HABD, added scaption OH B #2. STG Duration 01/20/23 Progressing Assessment Summary Assessment Pt still having some increased extensor tone, but was able to demonstrate ability to slow his descent while on the leg press with both 37# and 50#. Physical Therapy Plan Frequency and Duration Frequency of Treatment 2x/Week Plan of Care Start Date 11/18/22 Plan of Care End Date 02/16/23 Therapeutic Interventions Therapeutic Interventions Aquatic Therapy,Balance Training,Coordination Training ,Gait Training,Home Exercise Program,Manual Therapy, Neuromuscular Re-education, Orthotic/Prosthetic Management ,Patient/Caregiver Education, Self-Care/Home Management, Sensory Integration,Soft Tissue Mobilization, Therapeutic Activities, Therapeutic Exercises, Wheelchair Management Next Visit Focus/Plan Next Note Type Treatment Note Next Visit Plan Next tx: Alternate Shuttle recovery and sit/stander. *Sit/stander next. POC: Continue UE and core strengthening, LE PROM and manual stretching. Transfers, mobility, LE ROM
--- NOTE | 2022-12-19 15:34 | PT.OTN ---
Current Diagnoses Paraplegia, unspecified (12/19/22) Other specified personal risk factors, not elsewhere classified (12/19/22) Other specified postprocedural states (12/19/22) Physical Therapy Treatment Note PT-OP-A Visit Information Start: 03/08/22 17:00 Freq: Status: Active Protocol: Document 12/19/22 14:48 DCW (Rec: 12/19/22 15:33 DCW [id number]) Out-Patient Physical Therapy Visit Information Visit Information Visit Type Treatment Note Visit Start Time 14:48 Visit Stop Time 15:30 Total Visit Minutes 42 Visit Number 69 Number of COMPUTER HARDWARE TECHNICIAN Visits 0 Evaluation Information Evaluation Date 03/08/22 PT-OP-B Current Condition Start: 03/08/22 17:00 Freq: Status: Active Protocol: Document 03/08/22 11:15 DCW (Rec: 03/08/22 17:11 DCW [id number]) Current Condition History of Current Condition Onset Date 12/16/21 Current Complaints Paraplegia History of Current Condition Pt is a 71 year old male with a very unfortunate medical history. Pt was hiking [place] on 12/16/21 with a friend, finished up, drive back to his friend's home to drop him off, and noticed his left leg was collapsing. By the time pt drove home, both legs were giving out and numb. Pt was suddenly paralized from the waist down, was taken to the ED, and was flown to [facility] on 12/17/21. The following day, he underwent a laminectomy to relieve pressure from the thoracic epidural hematoma which had developed following his hike, which was pressing on his spinal cord. Following surgery , pt was in recovery for a week and was then transfered to rehab for 20 days, when he was finally discharged home in a wheelchair on 01/19/22. Pt reports his surgeon informed him that it is a possibility that he gets some return of nerve function. Has experienced some changes in his right LE, but has no motor function at this time from ~ T10 down. Minimal sensory return on right side, none on left. Pt has been anxious to get in to therapy and do everything he can to help return to function. Pt's , who attended his evaluation, notes that she has been doing a lot of PROM in his legs at night to keep everything moving. Pt can feel some stretching during PROM in his right leg. Pt has additionally already started occupational therapy, and has been practicing some seated stabilization. Pt transfers with a slide board, but notes it is difficult to do into his car, because he has to transfer upward at an incline. Treatment Goals Patient/Caregiver Goals I will do anything possible to get out of this wheelchair. My neurologist told me he has seen people recover from this , so I am not giving up hope. PT-OP-C Subjective Start: 03/08/22 17:00 Freq: Status: Active Protocol: Document 12/19/22 14:48 DCW (Rec: 12/19/22 15:33 DCW [id number]) OP-PT Subjective Patient Comments Patient Comments Pt reports he was able to lift his R knee up when asked during a TeleHealth visit with . PT-OP-G Mobility & Gait Start: 03/08/22 17:00 Freq: Status: Active Protocol: Document 08/21/22 15:15 DCW (Rec: 08/21/22 15:38 DCW [id number]) OP Mobility Evaluation Transfers Bed to Chair Transfers Transfers using UE Wheelchair Management Type of Wheelchair Manual w/c PT-OP-H Neuro Start: 03/08/22 17:00 Freq: Status: Active Protocol: Document 08/21/22 15:15 DCW (Rec: 08/21/22 15:38 DCW [id number]) Sensation Evaluation Gross Sensation Gross Sensation Left LE Impaired,Right LE Impaired,Trunk Impaired Sensation Description Paresthesia,Numbness,Tingling, Pins & [place],Burning Dermatome Impairments L1,L2,L3,L4,L5,S1,S2,S3,S4-5 Location Details Right Leg Light Touch Impaired Sharp/Dull Impaired Deep Pressure Impaired Hot/Cold Absent Protective Sensation Absent Proprioception (Position) Impaired Kinesthesia (Movement) Impaired Two-Point Discrimination Absent Tactile Localization Impaired Stereognosis Impaired Left Leg Light Touch Absent Sharp/Dull Absent Deep Pressure Impaired Hot/Cold Absent Protective Sensation Absent Proprioception (Position) Absent Kinesthesia (Movement) Impaired Two-Point Discrimination Absent Tactile Localization Absent Stereognosis Absent Deep Tendon Reflex & Clonus Assessment Deep Tendon Reflex Right Achilles Deep Tendon Reflex 1+ Diminished Right Patellar Deep Tendon Reflex 2+ Normal Left Achilles Deep Tendon Reflex 1+ Diminished Left Patellar Deep Tendon Reflex 0 Absent Muscle Tone Tone Assessment Right Lower Extremity Flexor Tone Description Moderate Hypertonicity Extensor Tone Description Moderate Hypertonicity Left Lower Extremity Flexor Tone Description Moderate Hypertonicity Extensor Tone Description Moderate Hypertonicity PT-OP-J Posture/Palpation/Skin Start: 03/08/22 17:00 Freq: Status: Active Protocol: Document 08/21/22 15:15 DCW (Rec: 08/21/22 15:38 DCW [id number]) Posture Evaluation Comments Posture Comments Significant improvement with core control, able to resist moderate sternal push and self -correct back to sitting position with no LOB. PT-OP-M Strength Start: 08/21/22 15:38 Freq: Status: Active Protocol: Document 08/21/22 15:15 DCW (Rec: 08/21/22 15:40 DCW [id number]) Hip Strength Hip Manual Muscle Testing Right Extension (S1) 2- Poor- Adduction 2- Poor- Left Extension (S1) 1 Trace Adduction 0 Zero Knee Strength Knee Manual Muscle Testing Right Flexion (S2) 1 Trace Extension (L3) 1 Trace Left Flexion (S2) 1 Trace Extension (L3) 0 Zero PT-OP-Q Treatments Start: 03/08/22 17:00 Freq: Status: Active Protocol: Document 12/19/22 14:48 DCW (Rec: 12/19/22 15:33 DCW [id number]) Cardio Equipment Recumbent Elliptical (Biodex) Duration (Minutes) 10 Resistance 6 Seat Position 10 Other w/c<->Biodex using UEs ( lateral scoot), gait belt, Mod Ax1 Therapeutic Activity Therapeutic Activity sit to stander Name Use 3 loop hole on strap Reps/Minutes 1 trial stand approx 25 min each Comments in//bars, 2 person (1 posterior pelvic/low back support, 2nd person stander control) Noted quad and gluteal firing. Mod cues for postural CS elongation, TS extension while leaning back into supportive strap. Doesn't come to full stand due to R>L flexor tone in HS and hip flexor. Less BUE support on stander bars approx 25%. Used scale under feet to determine WB through legs. Zeroed out with feet on scale sitting, additional 40-50 pounds added in standing. squat/lateral scoot transfer Name w/c<> biodex Reps/Minutes x2 Comments Mod A throughout gait belt, while support anterior knees to support extension. Cues to patient small pacing transition over/back w/ core and UEs. PT-OP-T Assessment and Plan Start: 03/08/22 17:00 Freq: Status: Active Protocol: Document 12/19/22 14:48 DCW (Rec: 12/19/22 15:33 DCW [id number]) Physical Therapy Assessment Impairments Impairments Activity Tolerance,Balance, Coordination,Functional Activities,Functional Mobility ,Gait,Integument,Sensation, Soft Tissue Mobility,Strength, Tone,Transfers Goals Three Impairment Pt does not have any motor function throughout bilateral LEs Short Term Goal (STG) Pt to demonstrate 1/5 trace motor contraction in at least one quad in order to begin focus on LE mobility if neural functional return begins. STG Duration Met Real Estate Analyst Goal (LTG) Pt to demonstrate right quad strength to at least 2/5, demonstrating movement into ROM in an antigravity position LTG Duration 02/16/23 - improving Two Impairment Pt struggles to perform slideboard car transfer due to upward tilt Real Estate Analyst Goal (LTG) Pt to demonstrate car transfer SBA using slideboard. 07/30/22: progressing: provides support for trunk stability while pt completes transfer self using slidboard and use over head doorframe handles and car door. has to place/remove slide board. Mod A uphill onto biodex, CG/ MIn A descend off biodex use slideboard. LTG Duration Met One Impairment Pt does not have an appropriate home exercise program Short Term Goal (STG) Pt to be independent and compliant with an appropriate HEP 07/30/22: progressing: resisted tricep ext, OH raises in w/c, supine HABD, added scaption OH B #2. STG Duration 01/20/23 Progressing Assessment Summary Assessment Longer time today spent with a single standing attempt in sit->stander. Pt able to get much more stretched out, felt he was standing up straighter today. Noticeable plantarflexion through bilateral feet when pt attempted to push down. Physical Therapy Plan Frequency and Duration Frequency of Treatment 2x/Week Plan of Care Start Date 11/18/22 Plan of Care End Date 02/16/23 Therapeutic Interventions Therapeutic Interventions Aquatic Therapy,Balance Training,Coordination Training ,Gait Training,Home Exercise Program,Manual Therapy, Neuromuscular Re-education, Orthotic/Prosthetic Management ,Patient/Caregiver Education, Self-Care/Home Management, Sensory Integration,Soft Tissue Mobilization, Therapeutic Activities, Therapeutic Exercises, Wheelchair Management Next Visit Focus/Plan Next Note Type Treatment Note Next Visit Plan Next tx: Alternate Shuttle recovery and sit/stander. *Sit/stander next. POC: Continue UE and core strengthening, LE PROM and manual stretching. Transfers, mobility, LE ROM
--- NOTE | 2022-12-23 15:29 | PT.OTN ---
Current Diagnoses Paraplegia, unspecified (12/23/22) Other specified personal risk factors, not elsewhere classified (12/23/22) Other specified postprocedural states (12/23/22) Physical Therapy Treatment Note PT-OP-A Visit Information Start: 03/08/22 17:00 Freq: Status: Active Protocol: Document 12/23/22 14:49 DCW (Rec: 12/23/22 15:29 DCW [id number]) Out-Patient Physical Therapy Visit Information Visit Information Visit Type Treatment Note Visit Start Time 14:49 Visit Stop Time 15:30 Total Visit Minutes 41 Visit Number 70 Number of ACID PURIFIER Visits 0 Evaluation Information Evaluation Date 03/08/22 PT-OP-B Current Condition Start: 03/08/22 17:00 Freq: Status: Active Protocol: Document 03/08/22 11:15 DCW (Rec: 03/08/22 17:11 DCW [id number]) Current Condition History of Current Condition Onset Date 12/16/21 Current Complaints Paraplegia History of Current Condition Pt is a 71 year old male with a very unfortunate medical history. Pt was hiking [place] on 12/16/21 with a friend, finished up, drive back to his friend's home to drop him off, and noticed his left leg was collapsing. By the time pt drove home, both legs were giving out and numb. Pt was suddenly paralized from the waist down, was taken to the ED, and was flown to [facility] on 12/17/21. The following day, he underwent a laminectomy to relieve pressure from the thoracic epidural hematoma which had developed following his hike, which was pressing on his spinal cord. Following surgery , pt was in recovery for a week and was then transfered to rehab for 20 days, when he was finally discharged home in a wheelchair on 01/19/22. Pt reports his surgeon informed him that it is a possibility that he gets some return of nerve function. Has experienced some changes in his right LE, but has no motor function at this time from ~ T10 down. Minimal sensory return on right side, none on left. Pt has been anxious to get in to therapy and do everything he can to help return to function. Pt's , who attended his evaluation, notes that she has been doing a lot of PROM in his legs at night to keep everything moving. Pt can feel some stretching during PROM in his right leg. Pt has additionally already started occupational therapy, and has been practicing some seated stabilization. Pt transfers with a slide board, but notes it is difficult to do into his car, because he has to transfer upward at an incline. Treatment Goals Patient/Caregiver Goals I will do anything possible to get out of this wheelchair. My neurologist told me he has seen people recover from this , so I am not giving up hope. PT-OP-C Subjective Start: 03/08/22 17:00 Freq: Status: Active Protocol: Document 12/23/22 14:49 DCW (Rec: 12/23/22 15:29 DCW [id number]) OP-PT Subjective Patient Comments Patient Comments Pt notes his right leg is especially stiff today. PT-OP-G Mobility & Gait Start: 03/08/22 17:00 Freq: Status: Active Protocol: Document 08/21/22 15:15 DCW (Rec: 08/21/22 15:38 DCW [id number]) OP Mobility Evaluation Transfers Bed to Chair Transfers Transfers using UE Wheelchair Management Type of Wheelchair Manual w/c PT-OP-H Neuro Start: 03/08/22 17:00 Freq: Status: Active Protocol: Document 08/21/22 15:15 DCW (Rec: 08/21/22 15:38 DCW [id number]) Sensation Evaluation Gross Sensation Gross Sensation Left LE Impaired,Right LE Impaired,Trunk Impaired Sensation Description Paresthesia,Numbness,Tingling, Pins & [place],Burning Dermatome Impairments L1,L2,L3,L4,L5,S1,S2,S3,S4-5 Location Details Right Leg Light Touch Impaired Sharp/Dull Impaired Deep Pressure Impaired Hot/Cold Absent Protective Sensation Absent Proprioception (Position) Impaired Kinesthesia (Movement) Impaired Two-Point Discrimination Absent Tactile Localization Impaired Stereognosis Impaired Left Leg Light Touch Absent Sharp/Dull Absent Deep Pressure Impaired Hot/Cold Absent Protective Sensation Absent Proprioception (Position) Absent Kinesthesia (Movement) Impaired Two-Point Discrimination Absent Tactile Localization Absent Stereognosis Absent Deep Tendon Reflex & Clonus Assessment Deep Tendon Reflex Right Achilles Deep Tendon Reflex 1+ Diminished Right Patellar Deep Tendon Reflex 2+ Normal Left Achilles Deep Tendon Reflex 1+ Diminished Left Patellar Deep Tendon Reflex 0 Absent Muscle Tone Tone Assessment Right Lower Extremity Flexor Tone Description Moderate Hypertonicity Extensor Tone Description Moderate Hypertonicity Left Lower Extremity Flexor Tone Description Moderate Hypertonicity Extensor Tone Description Moderate Hypertonicity PT-OP-J Posture/Palpation/Skin Start: 03/08/22 17:00 Freq: Status: Active Protocol: Document 08/21/22 15:15 DCW (Rec: 08/21/22 15:38 DCW [id number]) Posture Evaluation Comments Posture Comments Significant improvement with core control, able to resist moderate sternal push and self -correct back to sitting position with no LOB. PT-OP-M Strength Start: 08/21/22 15:38 Freq: Status: Active Protocol: Document 08/21/22 15:15 DCW (Rec: 08/21/22 15:40 DCW [id number]) Hip Strength Hip Manual Muscle Testing Right Extension (S1) 2- Poor- Adduction 2- Poor- Left Extension (S1) 1 Trace Adduction 0 Zero Knee Strength Knee Manual Muscle Testing Right Flexion (S2) 1 Trace Extension (L3) 1 Trace Left Flexion (S2) 1 Trace Extension (L3) 0 Zero PT-OP-Q Treatments Start: 03/08/22 17:00 Freq: Status: Active Protocol: Document 12/23/22 14:49 DCW (Rec: 12/23/22 15:29 DCW [id number]) Cardio Equipment Recumbent Elliptical (Biodex) Duration (Minutes) 10 Resistance 6 Seat Position 10 Other w/c<->Biodex using UEs ( lateral scoot), gait belt, Mod Ax1 Gym Equipment Shuttle Recovery Bilateral Squats Details without and with BUE assist on thighs LE ext Resistance 12# unassisted, 50# assisted Reps/Time Slight movements when unassisted, assisted back-> eccentric lowering Therapeutic Activity Therapeutic Activity squat/lateral scoot transfer Name w/c<> biodex Reps/Minutes x2 Comments Mod A throughout gait belt, while support anterior knees to support extension. Cues to patient small pacing transition over/back w/ core and UEs. PT-OP-T Assessment and Plan Start: 03/08/22 17:00 Freq: Status: Active Protocol: Document 12/23/22 14:49 DCW (Rec: 12/23/22 15:29 DCW [id number]) Physical Therapy Assessment Impairments Impairments Activity Tolerance,Balance, Coordination,Functional Activities,Functional Mobility ,Gait,Integument,Sensation, Soft Tissue Mobility,Strength, Tone,Transfers Goals Three Impairment Pt does not have any motor function throughout bilateral LEs Short Term Goal (STG) Pt to demonstrate 1/5 trace motor contraction in at least one quad in order to begin focus on LE mobility if neural functional return begins. STG Duration Met Care Home Goal (LTG) Pt to demonstrate right quad strength to at least 2/5, demonstrating movement into ROM in an antigravity position LTG Duration 02/16/23 - improving Two Impairment Pt struggles to perform slideboard car transfer due to upward tilt Care Home Goal (LTG) Pt to demonstrate car transfer SBA using slideboard. 07/30/22: progressing: provides support for trunk stability while pt completes transfer self using slidboard and use over head doorframe handles and car door. has to place/remove slide board. Mod A uphill onto biodex, CG/ MIn A descend off biodex use slideboard. LTG Duration Met One Impairment Pt does not have an appropriate home exercise program Short Term Goal (STG) Pt to be independent and compliant with an appropriate HEP 07/30/22: progressing: resisted tricep ext, OH raises in w/c, supine HABD, added scaption OH B #2. STG Duration 01/20/23 Progressing Assessment Summary Assessment Therapy continues to focus on improving glute and quad contraction in an effort to get pt to perform more of the standing action. Physical Therapy Plan Frequency and Duration Frequency of Treatment 2x/Week Plan of Care Start Date 11/18/22 Plan of Care End Date 02/16/23 Therapeutic Interventions Therapeutic Interventions Aquatic Therapy,Balance Training,Coordination Training ,Gait Training,Home Exercise Program,Manual Therapy, Neuromuscular Re-education, Orthotic/Prosthetic Management ,Patient/Caregiver Education, Self-Care/Home Management, Sensory Integration,Soft Tissue Mobilization, Therapeutic Activities, Therapeutic Exercises, Wheelchair Management Next Visit Focus/Plan Next Note Type Treatment Note Next Visit Plan Next tx: Alternate Shuttle recovery and sit/stander. *Sit/stander next. POC: Continue UE and core strengthening, LE PROM and manual stretching. Transfers, mobility, LE ROM
--- NOTE | 2022-12-26 15:15 | PT.OTN ---
Current Diagnoses Paraplegia, unspecified (12/26/22) Other specified personal risk factors, not elsewhere classified (12/26/22) Other specified postprocedural states (12/26/22) Physical Therapy Treatment Note PT-OP-A Visit Information Start: 03/08/22 17:00 Freq: Status: Active Protocol: Document 12/26/22 14:34 SP (Rec: 12/26/22 15:35 SP [id number]) Out-Patient Physical Therapy Visit Information Visit Information Visit Type Treatment Note Visit Note Pt 4 min late. Visit Start Time 14:31 Visit Stop Time 15:15 Total Visit Minutes 44 Visit Number 71 Number of MEDICAID BILLER Visits 1 Evaluation Information Evaluation Date 03/08/22 PT-OP-B Current Condition Start: 03/08/22 17:00 Freq: Status: Active Protocol: Document 03/08/22 11:15 DCW (Rec: 03/08/22 17:11 DCW [id number]) Current Condition History of Current Condition Onset Date 12/16/21 Current Complaints Paraplegia History of Current Condition Pt is a 71 year old male with a very unfortunate medical history. Pt was hiking [place] on 12/16/21 with a friend, finished up, drive back to his friend's home to drop him off, and noticed his left leg was collapsing. By the time pt drove home, both legs were giving out and numb. Pt was suddenly paralized from the waist down, was taken to the ED, and was flown to [facility] on 12/17/21. The following day, he underwent a laminectomy to relieve pressure from the thoracic epidural hematoma which had developed following his hike, which was pressing on his spinal cord. Following surgery , pt was in recovery for a week and was then transfered to rehab for 20 days, when he was finally discharged home in a wheelchair on 01/19/22. Pt reports his surgeon informed him that it is a possibility that he gets some return of nerve function. Has experienced some changes in his right LE, but has no motor function at this time from ~ T10 down. Minimal sensory return on right side, none on left. Pt has been anxious to get in to therapy and do everything he can to help return to function. Pt's , who attended his evaluation, notes that she has been doing a lot of PROM in his legs at night to keep everything moving. Pt can feel some stretching during PROM in his right leg. Pt has additionally already started occupational therapy, and has been practicing some seated stabilization. Pt transfers with a slide board, but notes it is difficult to do into his car, because he has to transfer upward at an incline. Treatment Goals Patient/Caregiver Goals I will do anything possible to get out of this wheelchair. My neurologist told me he has seen people recover from this , so I am not giving up hope. PT-OP-C Subjective Start: 03/08/22 17:00 Freq: Status: Active Protocol: Document 12/26/22 14:34 SP (Rec: 12/26/22 15:35 SP [id number]) OP-PT Subjective Patient Comments Patient Comments Pt reports still lag in L leg, R leg coming along. He reported got him a shower bench and slipped off seat when transferring. tried for 10 min help him off floor and unable, so called EMS for assist back into . PT-OP-G Mobility & Gait Start: 03/08/22 17:00 Freq: Status: Active Protocol: Document 08/21/22 15:15 DCW (Rec: 08/21/22 15:38 DCW [id number]) OP Mobility Evaluation Transfers Bed to Chair Transfers Transfers using UE Wheelchair Management Type of Wheelchair Manual w/c PT-OP-H Neuro Start: 03/08/22 17:00 Freq: Status: Active Protocol: Document 08/21/22 15:15 DCW (Rec: 08/21/22 15:38 DCW [id number]) Sensation Evaluation Gross Sensation Gross Sensation Left LE Impaired,Right LE Impaired,Trunk Impaired Sensation Description Paresthesia,Numbness,Tingling, Pins & [place],Burning Dermatome Impairments L1,L2,L3,L4,L5,S1,S2,S3,S4-5 Location Details Right Leg Light Touch Impaired Sharp/Dull Impaired Deep Pressure Impaired Hot/Cold Absent Protective Sensation Absent Proprioception (Position) Impaired Kinesthesia (Movement) Impaired Two-Point Discrimination Absent Tactile Localization Impaired Stereognosis Impaired Left Leg Light Touch Absent Sharp/Dull Absent Deep Pressure Impaired Hot/Cold Absent Protective Sensation Absent Proprioception (Position) Absent Kinesthesia (Movement) Impaired Two-Point Discrimination Absent Tactile Localization Absent Stereognosis Absent Deep Tendon Reflex & Clonus Assessment Deep Tendon Reflex Right Achilles Deep Tendon Reflex 1+ Diminished Right Patellar Deep Tendon Reflex 2+ Normal Left Achilles Deep Tendon Reflex 1+ Diminished Left Patellar Deep Tendon Reflex 0 Absent Muscle Tone Tone Assessment Right Lower Extremity Flexor Tone Description Moderate Hypertonicity Extensor Tone Description Moderate Hypertonicity Left Lower Extremity Flexor Tone Description Moderate Hypertonicity Extensor Tone Description Moderate Hypertonicity PT-OP-J Posture/Palpation/Skin Start: 03/08/22 17:00 Freq: Status: Active Protocol: Document 08/21/22 15:15 DCW (Rec: 08/21/22 15:38 DCW [id number]) Posture Evaluation Comments Posture Comments Significant improvement with core control, able to resist moderate sternal push and self -correct back to sitting position with no LOB. PT-OP-M Strength Start: 08/21/22 15:38 Freq: Status: Active Protocol: Document 08/21/22 15:15 DCW (Rec: 08/21/22 15:40 DCW [id number]) Hip Strength Hip Manual Muscle Testing Right Extension (S1) 2- Poor- Adduction 2- Poor- Left Extension (S1) 1 Trace Adduction 0 Zero Knee Strength Knee Manual Muscle Testing Right Flexion (S2) 1 Trace Extension (L3) 1 Trace Left Flexion (S2) 1 Trace Extension (L3) 0 Zero PT-OP-Q Treatments Start: 03/08/22 17:00 Freq: Status: Active Protocol: Document 12/26/22 14:34 SP (Rec: 12/26/22 15:35 SP [id number]) Cardio Equipment Recumbent Elliptical (Biodex) Duration (Minutes) 10 Resistance 6 Seat Position 10 Other w/c<->Biodex using UEs ( lateral scoot), gait belt, Mod Ax1 Therapeutic Activity Therapeutic Activity sit to stander Name Use 4 loop hole from end on strap Reps/Minutes 2 trial stands approx 25 min, 4 min each Comments in//bars, 2 person (1 posterior pelvic/low back support, 2nd person stander control) Noted quad and gluteal firing. Mod cues for postural CS elongation, TS extension while leaning back into supportive strap. Improved decreased RLE flexor tone as slow progression standing with mechanical assist. Decrease to no UE support on on stander bars approx 25>0% Used scale under feet to determine WB through legs. Zeroed out with feet on scale sitting, approx additional 10- 40 pounds added in standing. squat/lateral scoot transfer Name w/c<> biodex Reps/Minutes x2 (5 min) Comments Mod A trunk support throughout gait belt, while support anterior knees to support extension. Cues to patient small pacing transition over/ back w/ core and using BUEs. PT-OP-T Assessment and Plan Start: 03/08/22 17:00 Freq: Status: Active Protocol: Document 12/26/22 14:34 SP (Rec: 12/26/22 15:35 SP [id number]) Physical Therapy Assessment Goals Three Impairment Pt does not have any motor function throughout bilateral LEs Short Term Goal (STG) Pt to demonstrate 1/5 trace motor contraction in at least one quad in order to begin focus on LE mobility if neural functional return begins. STG Duration Met Usp Goal (LTG) Pt to demonstrate right quad strength to at least 2/5, demonstrating movement into ROM in an antigravity position LTG Duration 02/16/23 - improving Two Impairment Pt struggles to perform slideboard car transfer due to upward tilt Usp Goal (LTG) Pt to demonstrate car transfer SBA using slideboard. 07/30/22: progressing: provides support for trunk stability while pt completes transfer self using slidboard and use over head doorframe handles and car door. has to place/remove slide board. Mod A uphill onto biodex, CG/ MIn A descend off biodex use slideboard. LTG Duration Met One Impairment Pt does not have an appropriate home exercise program Short Term Goal (STG) Pt to be independent and compliant with an appropriate HEP 07/30/22: progressing: resisted tricep ext, OH raises in w/c, supine HABD, added scaption OH B #2. STG Duration 01/20/23 Progressing Assessment Summary Assessment Increased standing time sit<> stander 4 min and 25 min with improved posturing with short stents of no UE support with report increased hip flexor/ glut and back stretch. Pt demonstrates almost upright standing posture with sling at posterior pelvis/ ischial tuberosity support. Scale not as consistant reading shown, unsure accuracy WB measured. MEDICAID BILLER suggested use of dycem for contact safety transferring slippery surfaces as used in PT. Physical Therapy Plan Frequency and Duration Frequency of Treatment 2x/Week Plan of Care Start Date 11/18/22 Plan of Care End Date 02/16/23 Therapeutic Interventions Therapeutic Interventions Aquatic Therapy,Balance Training,Coordination Training ,Gait Training,Home Exercise Program,Manual Therapy, Neuromuscular Re-education, Orthotic/Prosthetic Management ,Patient/Caregiver Education, Self-Care/Home Management, Sensory Integration,Soft Tissue Mobilization, Therapeutic Activities, Therapeutic Exercises, Wheelchair Management Next Visit Focus/Plan Next Note Type Treatment Note Next Visit Plan Next tx: Alternate Shuttle recovery and sit/stander. *Shuttle Recovery next. POC: Continue UE and core strengthening, LE PROM and manual stretching. Transfers, mobility, LE ROM
--- NOTE | 2022-12-30 16:30 | PT.OTN ---
Current Diagnoses Paraplegia, unspecified (12/30/22) Other specified personal risk factors, not elsewhere classified (12/30/22) Other specified postprocedural states (12/30/22) Physical Therapy Treatment Note PT-OP-A Visit Information Start: 03/08/22 17:00 Freq: Status: Active Protocol: Document 12/30/22 15:50 DCW (Rec: 12/30/22 16:30 DCW [id number]) Out-Patient Physical Therapy Visit Information Visit Information Visit Type Treatment Note Visit Start Time 15:50 Visit Stop Time 16:30 Total Visit Minutes 40 Visit Number 72 Number of NUCLEAR EQUIPMENT TEST ENGINEER Visits 0 Evaluation Information Evaluation Date 03/08/22 PT-OP-B Current Condition Start: 03/08/22 17:00 Freq: Status: Active Protocol: Document 03/08/22 11:15 DCW (Rec: 03/08/22 17:11 DCW [id number]) Current Condition History of Current Condition Onset Date 12/16/21 Current Complaints Paraplegia History of Current Condition Pt is a 71 year old male with a very unfortunate medical history. Pt was hiking [place] on 12/16/21 with a friend, finished up, drive back to his friend's home to drop him off, and noticed his left leg was collapsing. By the time pt drove home, both legs were giving out and numb. Pt was suddenly paralized from the waist down, was taken to the ED, and was flown to [facility] on 12/17/21. The following day, he underwent a laminectomy to relieve pressure from the thoracic epidural hematoma which had developed following his hike, which was pressing on his spinal cord. Following surgery , pt was in recovery for a week and was then transfered to rehab for 20 days, when he was finally discharged home in a wheelchair on 01/19/22. Pt reports his surgeon informed him that it is a possibility that he gets some return of nerve function. Has experienced some changes in his right LE, but has no motor function at this time from ~ T10 down. Minimal sensory return on right side, none on left. Pt has been anxious to get in to therapy and do everything he can to help return to function. Pt's , who attended his evaluation, notes that she has been doing a lot of PROM in his legs at night to keep everything moving. Pt can feel some stretching during PROM in his right leg. Pt has additionally already started occupational therapy, and has been practicing some seated stabilization. Pt transfers with a slide board, but notes it is difficult to do into his car, because he has to transfer upward at an incline. Treatment Goals Patient/Caregiver Goals I will do anything possible to get out of this wheelchair. My neurologist told me he has seen people recover from this , so I am not giving up hope. PT-OP-C Subjective Start: 03/08/22 17:00 Freq: Status: Active Protocol: Document 12/30/22 15:50 DCW (Rec: 12/30/22 16:30 DCW [id number]) OP-PT Subjective Patient Comments Patient Comments Pt notes he feels his w/c is a little too much of a bucket seat, is wondering if his backrest can be adjusted to have him reclining a bit less. PT-OP-G Mobility & Gait Start: 03/08/22 17:00 Freq: Status: Active Protocol: Document 08/21/22 15:15 DCW (Rec: 08/21/22 15:38 DCW [id number]) OP Mobility Evaluation Transfers Bed to Chair Transfers Transfers using UE Wheelchair Management Type of Wheelchair Manual w/c PT-OP-H Neuro Start: 03/08/22 17:00 Freq: Status: Active Protocol: Document 08/21/22 15:15 DCW (Rec: 08/21/22 15:38 DCW [id number]) Sensation Evaluation Gross Sensation Gross Sensation Left LE Impaired,Right LE Impaired,Trunk Impaired Sensation Description Paresthesia,Numbness,Tingling, Pins & [place],Burning Dermatome Impairments L1,L2,L3,L4,L5,S1,S2,S3,S4-5 Location Details Right Leg Light Touch Impaired Sharp/Dull Impaired Deep Pressure Impaired Hot/Cold Absent Protective Sensation Absent Proprioception (Position) Impaired Kinesthesia (Movement) Impaired Two-Point Discrimination Absent Tactile Localization Impaired Stereognosis Impaired Left Leg Light Touch Absent Sharp/Dull Absent Deep Pressure Impaired Hot/Cold Absent Protective Sensation Absent Proprioception (Position) Absent Kinesthesia (Movement) Impaired Two-Point Discrimination Absent Tactile Localization Absent Stereognosis Absent Deep Tendon Reflex & Clonus Assessment Deep Tendon Reflex Right Achilles Deep Tendon Reflex 1+ Diminished Right Patellar Deep Tendon Reflex 2+ Normal Left Achilles Deep Tendon Reflex 1+ Diminished Left Patellar Deep Tendon Reflex 0 Absent Muscle Tone Tone Assessment Right Lower Extremity Flexor Tone Description Moderate Hypertonicity Extensor Tone Description Moderate Hypertonicity Left Lower Extremity Flexor Tone Description Moderate Hypertonicity Extensor Tone Description Moderate Hypertonicity PT-OP-J Posture/Palpation/Skin Start: 03/08/22 17:00 Freq: Status: Active Protocol: Document 08/21/22 15:15 DCW (Rec: 08/21/22 15:38 DCW [id number]) Posture Evaluation Comments Posture Comments Significant improvement with core control, able to resist moderate sternal push and self -correct back to sitting position with no LOB. PT-OP-M Strength Start: 08/21/22 15:38 Freq: Status: Active Protocol: Document 08/21/22 15:15 DCW (Rec: 08/21/22 15:40 DCW [id number]) Hip Strength Hip Manual Muscle Testing Right Extension (S1) 2- Poor- Adduction 2- Poor- Left Extension (S1) 1 Trace Adduction 0 Zero Knee Strength Knee Manual Muscle Testing Right Flexion (S2) 1 Trace Extension (L3) 1 Trace Left Flexion (S2) 1 Trace Extension (L3) 0 Zero PT-OP-Q Treatments Start: 03/08/22 17:00 Freq: Status: Active Protocol: Document 12/30/22 15:50 DCW (Rec: 12/30/22 16:30 DCW [id number]) Cardio Equipment Recumbent Elliptical (Biodex) Duration (Minutes) 10 Resistance 6 Seat Position 10 Other w/c<->Biodex using UEs ( lateral scoot), gait belt, Mod Ax1 Gym Equipment Shuttle Recovery Bilateral Squats Details without and with BUE assist on thighs LE ext Resistance 12# unassisted, 50# assisted Reps/Time Slight movements when unassisted, assisted back-> eccentric lowering Therapeutic Activity Therapeutic Activity squat/lateral scoot transfer Name w/c<> biodex, leg press Reps/Minutes x4 Comments Mod A throughout gait belt, while support anterior knees to support extension. Cues to patient small pacing transition over/back w/ core and UEs. PT-OP-T Assessment and Plan Start: 03/08/22 17:00 Freq: Status: Active Protocol: Document 12/30/22 15:50 DCW (Rec: 12/30/22 16:30 DCW [id number]) Physical Therapy Assessment Goals Three Impairment Pt does not have any motor function throughout bilateral LEs Short Term Goal (STG) Pt to demonstrate 1/5 trace motor contraction in at least one quad in order to begin focus on LE mobility if neural functional return begins. STG Duration Met Custodial Goal (LTG) Pt to demonstrate right quad strength to at least 2/5, demonstrating movement into ROM in an antigravity position LTG Duration 02/16/23 - improving Two Impairment Pt struggles to perform slideboard car transfer due to upward tilt Custodial Goal (LTG) Pt to demonstrate car transfer SBA using slideboard. 07/30/22: progressing: provides support for trunk stability while pt completes transfer self using slidboard and use over head doorframe handles and car door. has to place/remove slide board. Mod A uphill onto biodex, CG/ MIn A descend off biodex use slideboard. LTG Duration Met One Impairment Pt does not have an appropriate home exercise program Short Term Goal (STG) Pt to be independent and compliant with an appropriate HEP 07/30/22: progressing: resisted tricep ext, OH raises in w/c, supine HABD, added scaption OH B #2. STG Duration 01/20/23 Progressing Assessment Summary Assessment While pt was on recumbent elliptical, therapist performed adjustment on w/c backrest to decrease recline. Pt noted feeling much more comfortable in chair. Pt continues to show some ability to extend LEs on leg press, but does much better with UE assisted extension, and then leg providing a eccentric lowering. Physical Therapy Plan Frequency and Duration Frequency of Treatment 2x/Week Plan of Care Start Date 11/18/22 Plan of Care End Date 02/16/23 Therapeutic Interventions Therapeutic Interventions Aquatic Therapy,Balance Training,Coordination Training ,Gait Training,Home Exercise Program,Manual Therapy, Neuromuscular Re-education, Orthotic/Prosthetic Management ,Patient/Caregiver Education, Self-Care/Home Management, Sensory Integration,Soft Tissue Mobilization, Therapeutic Activities, Therapeutic Exercises, Wheelchair Management Next Visit Focus/Plan Next Note Type Treatment Note Next Visit Plan Next tx: Alternate Shuttle recovery and sit/stander. *Sit/stander next. POC: Continue UE and core strengthening, LE PROM and manual stretching. Transfers, mobility, LE ROM
--- NOTE | 2023-01-02 15:15 | PT.OTN ---
Current Diagnoses Paraplegia, unspecified (01/02/23) Other specified personal risk factors, not elsewhere classified (01/02/23) Other specified postprocedural states (01/02/23) Physical Therapy Treatment Note PT-OP-A Visit Information Start: 03/08/22 17:00 Freq: Status: Active Protocol: Document 01/02/23 14:31 SP (Rec: 01/02/23 15:36 SP [id number]) Out-Patient Physical Therapy Visit Information Visit Information Visit Type Treatment Note Visit Start Time 14:31 Visit Stop Time 15:15 Total Visit Minutes 44 Visit Number 73 Number of RISK CONTROL OFFICER Visits 1 Evaluation Information Evaluation Date 03/08/22 PT-OP-B Current Condition Start: 03/08/22 17:00 Freq: Status: Active Protocol: Document 03/08/22 11:15 DCW (Rec: 03/08/22 17:11 DCW [id number]) Current Condition History of Current Condition Onset Date 12/16/21 Current Complaints Paraplegia History of Current Condition Pt is a 71 year old male with a very unfortunate medical history. Pt was hiking [employer] on 12/16/21 with a friend, finished up, drive back to his friend's home to drop him off, and noticed his left leg was collapsing. By the time pt drove home, both legs were giving out and numb. Pt was suddenly paralized from the waist down, was taken to the ED, and was flown to [facility] on 12/17/21. The following day, he underwent a laminectomy to relieve pressure from the thoracic epidural hematoma which had developed following his hike, which was pressing on his spinal cord. Following surgery , pt was in recovery for a week and was then transfered to rehab for 20 days, when he was finally discharged home in a wheelchair on 01/19/22. Pt reports his surgeon informed him that it is a possibility that he gets some return of nerve function. Has experienced some changes in his right LE, but has no motor function at this time from ~ T10 down. Minimal sensory return on right side, none on left. Pt has been anxious to get in to therapy and do everything he can to help return to function. Pt's , who attended his evaluation, notes that she has been doing a lot of PROM in his legs at night to keep everything moving. Pt can feel some stretching during PROM in his right leg. Pt has additionally already started occupational therapy, and has been practicing some seated stabilization. Pt transfers with a slide board, but notes it is difficult to do into his car, because he has to transfer upward at an incline. Treatment Goals Patient/Caregiver Goals I will do anything possible to get out of this wheelchair. My neurologist told me he has seen people recover from this , so I am not giving up hope. PT-OP-C Subjective Start: 03/08/22 17:00 Freq: Status: Active Protocol: Document 01/02/23 14:31 SP (Rec: 01/02/23 15:36 SP [id number]) OP-PT Subjective Patient Comments Patient Comments Pt reports feels more sensation in R knee when flex/ ext on biodex like muscles working. PT-OP-G Mobility & Gait Start: 03/08/22 17:00 Freq: Status: Active Protocol: Document 08/21/22 15:15 DCW (Rec: 08/21/22 15:38 DCW [id number]) OP Mobility Evaluation Transfers Bed to Chair Transfers Transfers using UE Wheelchair Management Type of Wheelchair Manual w/c PT-OP-H Neuro Start: 03/08/22 17:00 Freq: Status: Active Protocol: Document 08/21/22 15:15 DCW (Rec: 08/21/22 15:38 DCW [id number]) Sensation Evaluation Gross Sensation Gross Sensation Left LE Impaired,Right LE Impaired,Trunk Impaired Sensation Description Paresthesia,Numbness,Tingling, Pins & [place],Burning Dermatome Impairments L1,L2,L3,L4,L5,S1,S2,S3,S4-5 Location Details Right Leg Light Touch Impaired Sharp/Dull Impaired Deep Pressure Impaired Hot/Cold Absent Protective Sensation Absent Proprioception (Position) Impaired Kinesthesia (Movement) Impaired Two-Point Discrimination Absent Tactile Localization Impaired Stereognosis Impaired Left Leg Light Touch Absent Sharp/Dull Absent Deep Pressure Impaired Hot/Cold Absent Protective Sensation Absent Proprioception (Position) Absent Kinesthesia (Movement) Impaired Two-Point Discrimination Absent Tactile Localization Absent Stereognosis Absent Deep Tendon Reflex & Clonus Assessment Deep Tendon Reflex Right Achilles Deep Tendon Reflex 1+ Diminished Right Patellar Deep Tendon Reflex 2+ Normal Left Achilles Deep Tendon Reflex 1+ Diminished Left Patellar Deep Tendon Reflex 0 Absent Muscle Tone Tone Assessment Right Lower Extremity Flexor Tone Description Moderate Hypertonicity Extensor Tone Description Moderate Hypertonicity Left Lower Extremity Flexor Tone Description Moderate Hypertonicity Extensor Tone Description Moderate Hypertonicity PT-OP-J Posture/Palpation/Skin Start: 03/08/22 17:00 Freq: Status: Active Protocol: Document 08/21/22 15:15 DCW (Rec: 08/21/22 15:38 DCW [id number]) Posture Evaluation Comments Posture Comments Significant improvement with core control, able to resist moderate sternal push and self -correct back to sitting position with no LOB. PT-OP-M Strength Start: 08/21/22 15:38 Freq: Status: Active Protocol: Document 08/21/22 15:15 DCW (Rec: 08/21/22 15:40 DCW [id number]) Hip Strength Hip Manual Muscle Testing Right Extension (S1) 2- Poor- Adduction 2- Poor- Left Extension (S1) 1 Trace Adduction 0 Zero Knee Strength Knee Manual Muscle Testing Right Flexion (S2) 1 Trace Extension (L3) 1 Trace Left Flexion (S2) 1 Trace Extension (L3) 0 Zero PT-OP-Q Treatments Start: 03/08/22 17:00 Freq: Status: Active Protocol: Document 01/02/23 14:31 SP (Rec: 01/02/23 15:36 SP [id number]) Cardio Equipment Recumbent Elliptical (Biodex) Duration (Minutes) 10 Resistance 6 Seat Position 10 Other w/c<->Biodex using UEs ( lateral scoot), gait belt, Mod Ax1 Therapeutic Activity Therapeutic Activity sit to stander Name Use 4 loop hole from end on strap Reps/Minutes 2 trial stands approx 17 min x2 Comments in//bars, 2 person (1 posterior pelvic/low back support, 2nd person stander control) Noted quad and gluteal firing. Min cues for elongated posturing for TS ext with supportive strap at post upper thigh/pelvis. Improved decreased RLE flexor tone. Less BUE support on stander bars approx 25>0% 60% of standing time. Used scale under feet to determine WB through legs. Zeroed out with feet on scale sitting, approx additional 10- 40 pounds added in standing. squat/lateral scoot transfer Name w/c<> biodex, leg press Reps/Minutes x4 Comments Mod A throughout gait belt, while support anterior knees to support extension. Cues to patient small pacing transition over/back w/ core and UEs. PT-OP-T Assessment and Plan Start: 03/08/22 17:00 Freq: Status: Active Protocol: Document 01/02/23 14:31 SP (Rec: 01/02/23 15:36 SP [id number]) Physical Therapy Assessment Goals Three Impairment Pt does not have any motor function throughout bilateral LEs Short Term Goal (STG) Pt to demonstrate 1/5 trace motor contraction in at least one quad in order to begin focus on LE mobility if neural functional return begins. STG Duration Met Shuttle Repairer Goal (LTG) Pt to demonstrate right quad strength to at least 2/5, demonstrating movement into ROM in an antigravity position LTG Duration 02/16/23 - improving Two Impairment Pt struggles to perform slideboard car transfer due to upward tilt [facility]iary Goal (LTG) Pt to demonstrate car transfer SBA using slideboard. 07/30/22: progressing: provides support for trunk stability while pt completes transfer self using slidboard and use over head doorframe handles and car door. has to place/remove slide board. Mod A uphill onto biodex, CG/ MIn A descend off biodex use slideboard. LTG Duration Met One Impairment Pt does not have an appropriate home exercise program Short Term Goal (STG) Pt to be independent and compliant with an appropriate HEP 07/30/22: progressing: resisted tricep ext, OH raises in w/c, supine HABD, added scaption OH B #2. STG Duration 01/20/23 Progressing Assessment Summary Assessment Pt decreased 4 instances flexor R LE tone reflex response coming to standing w/ sit/stander mechanical support. Pt reports good hip flexor, back extensors stretching while standing that doesn't get any other position. Instructed pt hip flexion then scoot back, provided increased LS support while in w/c, decreased sacral sitting noted. Physical Therapy Plan Frequency and Duration Frequency of Treatment 2x/Week Plan of Care Start Date 11/18/22 Plan of Care End Date 02/16/23 Therapeutic Interventions Therapeutic Interventions Aquatic Therapy,Balance Training,Coordination Training ,Gait Training,Home Exercise Program,Manual Therapy, Neuromuscular Re-education, Orthotic/Prosthetic Management ,Patient/Caregiver Education, Self-Care/Home Management, Sensory Integration,Soft Tissue Mobilization, Therapeutic Activities, Therapeutic Exercises, Wheelchair Management Next Visit Focus/Plan Next Note Type Treatment Note Next Visit Plan Next tx: Alternate Shuttle recovery and sit/stander. *Shuttle Recovery next. Use new inpatient scale sit/ stander. POC: Continue UE and core strengthening, LE PROM and manual stretching. Transfers, mobility, LE ROM
--- NOTE | 2023-01-06 16:28 | PT.OTN ---
Current Diagnoses Paraplegia, unspecified (01/06/23) Other specified personal risk factors, not elsewhere classified (01/06/23) Other specified postprocedural states (01/06/23) Physical Therapy Treatment Note PT-OP-A Visit Information Start: 03/08/22 17:00 Freq: Status: Active Protocol: Document 01/06/23 15:49 DCW (Rec: 01/06/23 16:28 DCW [id number]) Out-Patient Physical Therapy Visit Information Visit Information Visit Type Treatment Note Visit Start Time 15:49 Visit Stop Time 16:30 Total Visit Minutes 41 Visit Number 74 Number of FREIGHT CAR INSPECTOR Visits 0 Evaluation Information Evaluation Date 03/08/22 PT-OP-B Current Condition Start: 03/08/22 17:00 Freq: Status: Active Protocol: Document 03/08/22 11:15 DCW (Rec: 03/08/22 17:11 DCW [id number]) Current Condition History of Current Condition Onset Date 12/16/21 Current Complaints Paraplegia History of Current Condition Pt is a 71 year old male with a very unfortunate medical history. Pt was hiking [place] on 12/16/21 with a friend, finished up, drive back to his friend's home to drop him off, and noticed his left leg was collapsing. By the time pt drove home, both legs were giving out and numb. Pt was suddenly paralized from the waist down, was taken to the ED, and was flown to [facility] on 12/17/21. The following day, he underwent a laminectomy to relieve pressure from the thoracic epidural hematoma which had developed following his hike, which was pressing on his spinal cord. Following surgery , pt was in recovery for a week and was then transfered to rehab for 20 days, when he was finally discharged home in a wheelchair on 01/19/22. Pt reports his surgeon informed him that it is a possibility that he gets some return of nerve function. Has experienced some changes in his right LE, but has no motor function at this time from ~ T10 down. Minimal sensory return on right side, none on left. Pt has been anxious to get in to therapy and do everything he can to help return to function. Pt's , who attended his evaluation, notes that she has been doing a lot of PROM in his legs at night to keep everything moving. Pt can feel some stretching during PROM in his right leg. Pt has additionally already started occupational therapy, and has been practicing some seated stabilization. Pt transfers with a slide board, but notes it is difficult to do into his car, because he has to transfer upward at an incline. Treatment Goals Patient/Caregiver Goals I will do anything possible to get out of this wheelchair. My neurologist told me he has seen people recover from this , so I am not giving up hope. PT-OP-C Subjective Start: 03/08/22 17:00 Freq: Status: Active Protocol: Document 01/06/23 15:49 DCW (Rec: 01/06/23 16:28 DCW [id number]) OP-PT Subjective Patient Comments Patient Comments Very tight today in right leg, but notes he feels improvement in mobility PT-OP-G Mobility & Gait Start: 03/08/22 17:00 Freq: Status: Active Protocol: Document 08/21/22 15:15 DCW (Rec: 08/21/22 15:38 DCW [id number]) OP Mobility Evaluation Transfers Bed to Chair Transfers Transfers using UE Wheelchair Management Type of Wheelchair Manual w/c PT-OP-H Neuro Start: 03/08/22 17:00 Freq: Status: Active Protocol: Document 08/21/22 15:15 DCW (Rec: 08/21/22 15:38 DCW [id number]) Sensation Evaluation Gross Sensation Gross Sensation Left LE Impaired,Right LE Impaired,Trunk Impaired Sensation Description Paresthesia,Numbness,Tingling, Pins & [place],Burning Dermatome Impairments L1,L2,L3,L4,L5,S1,S2,S3,S4-5 Location Details Right Leg Light Touch Impaired Sharp/Dull Impaired Deep Pressure Impaired Hot/Cold Absent Protective Sensation Absent Proprioception (Position) Impaired Kinesthesia (Movement) Impaired Two-Point Discrimination Absent Tactile Localization Impaired Stereognosis Impaired Left Leg Light Touch Absent Sharp/Dull Absent Deep Pressure Impaired Hot/Cold Absent Protective Sensation Absent Proprioception (Position) Absent Kinesthesia (Movement) Impaired Two-Point Discrimination Absent Tactile Localization Absent Stereognosis Absent Deep Tendon Reflex & Clonus Assessment Deep Tendon Reflex Right Achilles Deep Tendon Reflex 1+ Diminished Right Patellar Deep Tendon Reflex 2+ Normal Left Achilles Deep Tendon Reflex 1+ Diminished Left Patellar Deep Tendon Reflex 0 Absent Muscle Tone Tone Assessment Right Lower Extremity Flexor Tone Description Moderate Hypertonicity Extensor Tone Description Moderate Hypertonicity Left Lower Extremity Flexor Tone Description Moderate Hypertonicity Extensor Tone Description Moderate Hypertonicity PT-OP-J Posture/Palpation/Skin Start: 03/08/22 17:00 Freq: Status: Active Protocol: Document 08/21/22 15:15 DCW (Rec: 08/21/22 15:38 DCW [id number]) Posture Evaluation Comments Posture Comments Significant improvement with core control, able to resist moderate sternal push and self -correct back to sitting position with no LOB. PT-OP-M Strength Start: 08/21/22 15:38 Freq: Status: Active Protocol: Document 08/21/22 15:15 DCW (Rec: 08/21/22 15:40 DCW [id number]) Hip Strength Hip Manual Muscle Testing Right Extension (S1) 2- Poor- Adduction 2- Poor- Left Extension (S1) 1 Trace Adduction 0 Zero Knee Strength Knee Manual Muscle Testing Right Flexion (S2) 1 Trace Extension (L3) 1 Trace Left Flexion (S2) 1 Trace Extension (L3) 0 Zero PT-OP-Q Treatments Start: 03/08/22 17:00 Freq: Status: Active Protocol: Document 01/06/23 15:49 DCW (Rec: 01/06/23 16:28 DCW [id number]) Cardio Equipment Recumbent Elliptical (Biodex) Duration (Minutes) 10 Resistance 6 Seat Position 10 Other w/c<->Biodex using UEs ( lateral scoot), gait belt, Mod Ax1 Gym Equipment Shuttle Recovery Bilateral Squats Details without and with BUE assist on thighs LE ext Resistance 12# unassisted, 50# assisted Reps/Time Slight movements when unassisted, assisted back-> eccentric lowering Therapeutic Activity Therapeutic Activity squat/lateral scoot transfer Name w/c<> biodex, leg press Reps/Minutes x4 Comments Mod A throughout gait belt, while support anterior knees to support extension. Cues to patient small pacing transition over/back w/ core and UEs. PT-OP-T Assessment and Plan Start: 03/08/22 17:00 Freq: Status: Active Protocol: Document 01/06/23 15:49 DCW (Rec: 01/06/23 16:28 DCW [id number]) Physical Therapy Assessment Goals Three Impairment Pt does not have any motor function throughout bilateral LEs Short Term Goal (STG) Pt to demonstrate 1/5 trace motor contraction in at least one quad in order to begin focus on LE mobility if neural functional return begins. STG Duration Met Fci Goal (LTG) Pt to demonstrate right quad strength to at least 2/5, demonstrating movement into ROM in an antigravity position LTG Duration 02/16/23 - improving Two Impairment Pt struggles to perform slideboard car transfer due to upward tilt Piece Dyer Goal (LTG) Pt to demonstrate car transfer SBA using slideboard. 07/30/22: progressing: provides support for trunk stability while pt completes transfer self using slidboard and use over head doorframe handles and car door. has to place/remove slide board. Mod A uphill onto biodex, CG/ MIn A descend off biodex use slideboard. LTG Duration Met One Impairment Pt does not have an appropriate home exercise program Short Term Goal (STG) Pt to be independent and compliant with an appropriate HEP 07/30/22: progressing: resisted tricep ext, OH raises in w/c, supine HABD, added scaption OH B #2. STG Duration 01/20/23 Progressing Assessment Summary Assessment Pt feeling like he has more control and better contraction in right thigh performing leg press. Transfers easier for patient and therapist to perform. Physical Therapy Plan Frequency and Duration Frequency of Treatment 2x/Week Plan of Care Start Date 11/18/22 Plan of Care End Date 02/16/23 Therapeutic Interventions Therapeutic Interventions Aquatic Therapy,Balance Training,Coordination Training ,Gait Training,Home Exercise Program,Manual Therapy, Neuromuscular Re-education, Orthotic/Prosthetic Management ,Patient/Caregiver Education, Self-Care/Home Management, Sensory Integration,Soft Tissue Mobilization, Therapeutic Activities, Therapeutic Exercises, Wheelchair Management Next Visit Focus/Plan Next Note Type Treatment Note Next Visit Plan Next tx: Alternate Shuttle recovery and sit/stander. *Sit/stander next. (New one?) POC: Continue UE and core strengthening, LE PROM and manual stretching. Transfers, mobility, LE ROM
--- NOTE | 2023-01-09 15:15 | PT.OTN ---
Current Diagnoses Paraplegia, unspecified (01/09/23) Other specified personal risk factors, not elsewhere classified (01/09/23) Other specified postprocedural states (01/09/23) Physical Therapy Treatment Note PT-OP-A Visit Information Start: 03/08/22 17:00 Freq: Status: Active Protocol: Document 01/09/23 14:32 SP (Rec: 01/09/23 15:26 SP [id number]) Out-Patient Physical Therapy Visit Information Visit Information Visit Type Treatment Note Visit Start Time 14:32 Visit Stop Time 15:15 Total Visit Minutes 43 Visit Number 75 Number of HAND REAMER Visits 1 Evaluation Information Evaluation Date 03/08/22 PT-OP-B Current Condition Start: 03/08/22 17:00 Freq: Status: Active Protocol: Document 03/08/22 11:15 DCW (Rec: 03/08/22 17:11 DCW [id number]) Current Condition History of Current Condition Onset Date 12/16/21 Current Complaints Paraplegia History of Current Condition Pt is a 71 year old male with a very unfortunate medical history. Pt was hiking [place] on 12/16/21 with a friend, finished up, drive back to his friend's home to drop him off, and noticed his left leg was collapsing. By the time pt drove home, both legs were giving out and numb. Pt was suddenly paralized from the waist down, was taken to the ED, and was flown to [facility] on 12/17/21. The following day, he underwent a laminectomy to relieve pressure from the thoracic epidural hematoma which had developed following his hike, which was pressing on his spinal cord. Following surgery , pt was in recovery for a week and was then transfered to rehab for 20 days, when he was finally discharged home in a wheelchair on 01/19/22. Pt reports his surgeon informed him that it is a possibility that he gets some return of nerve function. Has experienced some changes in his right LE, but has no motor function at this time from ~ T10 down. Minimal sensory return on right side, none on left. Pt has been anxious to get in to therapy and do everything he can to help return to function. Pt's , who attended his evaluation, notes that she has been doing a lot of PROM in his legs at night to keep everything moving. Pt can feel some stretching during PROM in his right leg. Pt has additionally already started occupational therapy, and has been practicing some seated stabilization. Pt transfers with a slide board, but notes it is difficult to do into his car, because he has to transfer upward at an incline. Treatment Goals Patient/Caregiver Goals I will do anything possible to get out of this wheelchair. My neurologist told me he has seen people recover from this , so I am not giving up hope. PT-OP-C Subjective Start: 03/08/22 17:00 Freq: Status: Active Protocol: Document 01/09/23 14:32 SP (Rec: 01/09/23 15:26 SP [id number]) OP-PT Subjective Patient Comments Patient Comments Pt reports legs are getting more and more active especially during the night. He reports pre transfer 2 nights ago asked if he could try lift leg up as though july and was able to lift LLE approx 1 and RLE as well while seated back in chair position like normal but feet on floor start position. PT-OP-G Mobility & Gait Start: 03/08/22 17:00 Freq: Status: Active Protocol: Document 08/21/22 15:15 DCW (Rec: 08/21/22 15:38 DCW [id number]) OP Mobility Evaluation Transfers Bed to Chair Transfers Transfers using UE Wheelchair Management Type of Wheelchair Manual w/c PT-OP-H Neuro Start: 03/08/22 17:00 Freq: Status: Active Protocol: Document 08/21/22 15:15 DCW (Rec: 08/21/22 15:38 DCW [id number]) Sensation Evaluation Gross Sensation Gross Sensation Left LE Impaired,Right LE Impaired,Trunk Impaired Sensation Description Paresthesia,Numbness,Tingling, Pins & [place],Burning Dermatome Impairments L1,L2,L3,L4,L5,S1,S2,S3,S4-5 Location Details Right Leg Light Touch Impaired Sharp/Dull Impaired Deep Pressure Impaired Hot/Cold Absent Protective Sensation Absent Proprioception (Position) Impaired Kinesthesia (Movement) Impaired Two-Point Discrimination Absent Tactile Localization Impaired Stereognosis Impaired Left Leg Light Touch Absent Sharp/Dull Absent Deep Pressure Impaired Hot/Cold Absent Protective Sensation Absent Proprioception (Position) Absent Kinesthesia (Movement) Impaired Two-Point Discrimination Absent Tactile Localization Absent Stereognosis Absent Deep Tendon Reflex & Clonus Assessment Deep Tendon Reflex Right Achilles Deep Tendon Reflex 1+ Diminished Right Patellar Deep Tendon Reflex 2+ Normal Left Achilles Deep Tendon Reflex 1+ Diminished Left Patellar Deep Tendon Reflex 0 Absent Muscle Tone Tone Assessment Right Lower Extremity Flexor Tone Description Moderate Hypertonicity Extensor Tone Description Moderate Hypertonicity Left Lower Extremity Flexor Tone Description Moderate Hypertonicity Extensor Tone Description Moderate Hypertonicity PT-OP-J Posture/Palpation/Skin Start: 03/08/22 17:00 Freq: Status: Active Protocol: Document 08/21/22 15:15 DCW (Rec: 08/21/22 15:38 DCW [id number]) Posture Evaluation Comments Posture Comments Significant improvement with core control, able to resist moderate sternal push and self -correct back to sitting position with no LOB. PT-OP-M Strength Start: 08/21/22 15:38 Freq: Status: Active Protocol: Document 08/21/22 15:15 DCW (Rec: 08/21/22 15:40 DCW [id number]) Hip Strength Hip Manual Muscle Testing Right Extension (S1) 2- Poor- Adduction 2- Poor- Left Extension (S1) 1 Trace Adduction 0 Zero Knee Strength Knee Manual Muscle Testing Right Flexion (S2) 1 Trace Extension (L3) 1 Trace Left Flexion (S2) 1 Trace Extension (L3) 0 Zero PT-OP-Q Treatments Start: 03/08/22 17:00 Freq: Status: Active Protocol: Document 01/09/23 14:32 SP (Rec: 01/09/23 15:26 SP [id number]) Cardio Equipment Recumbent Elliptical (Biodex) Duration (Minutes) 10 Resistance 6 Seat Position 10 Other w/c<->Biodex using UEs ( lateral scoot), gait belt, Mod Ax1 Therapeutic Activity Therapeutic Activity sit to stander Name Use 2 loop hole from end on strap, longest lrg strap Reps/Minutes 2 stands Comments in//bars, 2 person (1 posterior pelvic/low back support, 2nd person stander control) Noted quad and gluteal firing. Min cues for elongated posturing for TS ext with supportive strap at post upper thigh/pelvis. Improved decreased RLE flexor tone. Less BUE support on stander bars approx 25>0% 60% of standing time. Used scale under feet to determine WB through legs. Zeroed out with feet on scale sitting, approx additional 10- 40 pounds added in standing. sit<>assembly inspector //bars Name Sit<->Stand (//bar height 32, width 5) Reps/Minutes 2 reps Comments To come to stand Max A x1 w/ support via gait belt at waist and anterior knee support Used scale to measure weight pt puts through LEs, ~80-116 lbs 01/09. squat/lateral scoot transfer Name w/c<> biodex, leg press Reps/Minutes x2 Comments Mod/Max today A throughout gait belt, while support anterior knees to support extension. Cues to patient small pacing transition over/ back w/ core and UEs. PT-OP-T Assessment and Plan Start: 03/08/22 17:00 Freq: Status: Active Protocol: Document 01/09/23 14:32 SP (Rec: 01/09/23 15:26 SP [id number]) Physical Therapy Assessment Goals Three Impairment Pt does not have any motor function throughout bilateral LEs Short Term Goal (STG) Pt to demonstrate 1/5 trace motor contraction in at least one quad in order to begin focus on LE mobility if neural functional return begins. STG Duration Met Finished Cloth Examiner Goal (LTG) Pt to demonstrate right quad strength to at least 2/5, demonstrating movement into ROM in an antigravity position LTG Duration 02/16/23 - improving Two Impairment Pt struggles to perform slideboard car transfer due to upward tilt Finished Cloth Examiner Goal (LTG) Pt to demonstrate car transfer SBA using slideboard. 07/30/22: progressing: provides support for trunk stability while pt completes transfer self using slidboard and use over head doorframe handles and car door. has to place/remove slide board. Mod A uphill onto biodex, CG/ MIn A descend off biodex use slideboard. LTG Duration Met One Impairment Pt does not have an appropriate home exercise program Short Term Goal (STG) Pt to be independent and compliant with an appropriate HEP 07/30/22: progressing: resisted tricep ext, OH raises in w/c, supine HABD, added scaption OH B #2. STG Duration 01/20/23 Progressing Assessment Summary Assessment Pt improved standing with increase WB into BLE up to 80 lbs with mechanical sit stand ( no UE added support) and 81 lbs in //bars (UE supporting on//bars and therapist use gait belt and support anterior BLEs and lower trunk into standing). Pt trialed lifting each LE in sitting as described had seen at home but only demonstrated core contraction. Physical Therapy Plan Frequency and Duration Frequency of Treatment 2x/Week Plan of Care Start Date 11/18/22 Plan of Care End Date 02/16/23 Therapeutic Interventions Therapeutic Interventions Aquatic Therapy,Balance Training,Coordination Training ,Gait Training,Home Exercise Program,Manual Therapy, Neuromuscular Re-education, Orthotic/Prosthetic Management ,Patient/Caregiver Education, Self-Care/Home Management, Sensory Integration,Soft Tissue Mobilization, Therapeutic Activities, Therapeutic Exercises, Wheelchair Management Next Visit Focus/Plan Next Note Type Treatment Note Next Visit Plan Next tx: Alternate Shuttle recovery and sit/stander. *Biodex next. POC: Continue UE and core strengthening, LE PROM and manual stretching. Transfers, mobility, LE ROM
--- NOTE | 2023-01-14 16:29 | PT.OTN ---
Current Diagnoses Paraplegia, unspecified (01/14/23) Other specified personal risk factors, not elsewhere classified (01/14/23) Other specified postprocedural states (01/14/23) Physical Therapy Treatment Note PT-OP-A Visit Information Start: 03/08/22 17:00 Freq: Status: Active Protocol: Document 01/14/23 15:45 DCW (Rec: 01/14/23 16:29 DCW [id number]) Out-Patient Physical Therapy Visit Information Visit Information Visit Type Treatment Note Visit Start Time 15:45 Visit Stop Time 16:30 Total Visit Minutes 45 Visit Number 76 Number of SPEECH LANGUAGE PATHOLOGIST TRAVEL Visits 0 Evaluation Information Evaluation Date 03/08/22 PT-OP-B Current Condition Start: 03/08/22 17:00 Freq: Status: Active Protocol: Document 03/08/22 11:15 DCW (Rec: 03/08/22 17:11 DCW [id number]) Current Condition History of Current Condition Onset Date 12/16/21 Current Complaints Paraplegia History of Current Condition Pt is a 71 year old male with a very unfortunate medical history. Pt was hiking [place] on 12/16/21 with a friend, finished up, drive back to his friend's home to drop him off, and noticed his left leg was collapsing. By the time pt drove home, both legs were giving out and numb. Pt was suddenly paralized from the waist down, was taken to the ED, and was flown to [facility] on 12/17/21. The following day, he underwent a laminectomy to relieve pressure from the thoracic epidural hematoma which had developed following his hike, which was pressing on his spinal cord. Following surgery , pt was in recovery for a week and was then transfered to rehab for 20 days, when he was finally discharged home in a wheelchair on 01/19/22. Pt reports his surgeon informed him that it is a possibility that he gets some return of nerve function. Has experienced some changes in his right LE, but has no motor function at this time from ~ T10 down. Minimal sensory return on right side, none on left. Pt has been anxious to get in to therapy and do everything he can to help return to function. Pt's , who attended his evaluation, notes that she has been doing a lot of PROM in his legs at night to keep everything moving. Pt can feel some stretching during PROM in his right leg. Pt has additionally already started occupational therapy, and has been practicing some seated stabilization. Pt transfers with a slide board, but notes it is difficult to do into his car, because he has to transfer upward at an incline. Treatment Goals Patient/Caregiver Goals I will do anything possible to get out of this wheelchair. My neurologist told me he has seen people recover from this , so I am not giving up hope. PT-OP-C Subjective Start: 03/08/22 17:00 Freq: Status: Active Protocol: Document 01/14/23 15:45 DCW (Rec: 01/14/23 16:29 DCW [id number]) OP-PT Subjective Patient Comments Patient Comments Pt notes intrest in looking into a home stander. PT-OP-G Mobility & Gait Start: 03/08/22 17:00 Freq: Status: Active Protocol: Document 08/21/22 15:15 DCW (Rec: 08/21/22 15:38 DCW [id number]) OP Mobility Evaluation Transfers Bed to Chair Transfers Transfers using UE Wheelchair Management Type of Wheelchair Manual w/c PT-OP-H Neuro Start: 03/08/22 17:00 Freq: Status: Active Protocol: Document 08/21/22 15:15 DCW (Rec: 08/21/22 15:38 DCW [id number]) Sensation Evaluation Gross Sensation Gross Sensation Left LE Impaired,Right LE Impaired,Trunk Impaired Sensation Description Paresthesia,Numbness,Tingling, Pins & [place],Burning Dermatome Impairments L1,L2,L3,L4,L5,S1,S2,S3,S4-5 Location Details Right Leg Light Touch Impaired Sharp/Dull Impaired Deep Pressure Impaired Hot/Cold Absent Protective Sensation Absent Proprioception (Position) Impaired Kinesthesia (Movement) Impaired Two-Point Discrimination Absent Tactile Localization Impaired Stereognosis Impaired Left Leg Light Touch Absent Sharp/Dull Absent Deep Pressure Impaired Hot/Cold Absent Protective Sensation Absent Proprioception (Position) Absent Kinesthesia (Movement) Impaired Two-Point Discrimination Absent Tactile Localization Absent Stereognosis Absent Deep Tendon Reflex & Clonus Assessment Deep Tendon Reflex Right Achilles Deep Tendon Reflex 1+ Diminished Right Patellar Deep Tendon Reflex 2+ Normal Left Achilles Deep Tendon Reflex 1+ Diminished Left Patellar Deep Tendon Reflex 0 Absent Muscle Tone Tone Assessment Right Lower Extremity Flexor Tone Description Moderate Hypertonicity Extensor Tone Description Moderate Hypertonicity Left Lower Extremity Flexor Tone Description Moderate Hypertonicity Extensor Tone Description Moderate Hypertonicity PT-OP-J Posture/Palpation/Skin Start: 03/08/22 17:00 Freq: Status: Active Protocol: Document 08/21/22 15:15 DCW (Rec: 08/21/22 15:38 DCW [id number]) Posture Evaluation Comments Posture Comments Significant improvement with core control, able to resist moderate sternal push and self -correct back to sitting position with no LOB. PT-OP-M Strength Start: 08/21/22 15:38 Freq: Status: Active Protocol: Document 08/21/22 15:15 DCW (Rec: 08/21/22 15:40 DCW [id number]) Hip Strength Hip Manual Muscle Testing Right Extension (S1) 2- Poor- Adduction 2- Poor- Left Extension (S1) 1 Trace Adduction 0 Zero Knee Strength Knee Manual Muscle Testing Right Flexion (S2) 1 Trace Extension (L3) 1 Trace Left Flexion (S2) 1 Trace Extension (L3) 0 Zero PT-OP-Q Treatments Start: 03/08/22 17:00 Freq: Status: Active Protocol: Document 01/14/23 15:45 DCW (Rec: 01/14/23 16:29 DCW [id number]) Cardio Equipment Recumbent Elliptical (Biodex) Duration (Minutes) 10 Resistance 6 Seat Position 10 Other w/c<->Biodex using UEs ( lateral scoot), gait belt, Mod Ax1 Gym Equipment Shuttle Recovery Bilateral Squats Details without and with BUE assist on thighs LE ext Resistance 12# unassisted, 50# assisted Reps/Time Slight movements when unassisted, assisted back-> eccentric lowering Therapeutic Activity Therapeutic Activity squat/lateral scoot transfer Name w/c<> biodex, leg press Reps/Minutes x4 Comments Mod/Max today A throughout gait belt, while support anterior knees to support extension. Cues to patient small pacing transition over/ back w/ core and UEs. PT-OP-T Assessment and Plan Start: 03/08/22 17:00 Freq: Status: Active Protocol: Document 01/14/23 15:45 DCW (Rec: 01/14/23 16:29 DCW [id number]) Physical Therapy Assessment Goals Three Impairment Pt does not have any motor function throughout bilateral LEs Short Term Goal (STG) Pt to demonstrate 1/5 trace motor contraction in at least one quad in order to begin focus on LE mobility if neural functional return begins. STG Duration Met Semiconductor Processor Goal (LTG) Pt to demonstrate right quad strength to at least 2/5, demonstrating movement into ROM in an antigravity position LTG Duration 02/16/23 - improving Two Impairment Pt struggles to perform slideboard car transfer due to upward tilt Semiconductor Processor Goal (LTG) Pt to demonstrate car transfer SBA using slideboard. 07/30/22: progressing: provides support for trunk stability while pt completes transfer self using slidboard and use over head doorframe handles and car door. has to place/remove slide board. Mod A uphill onto biodex, CG/ MIn A descend off biodex use slideboard. LTG Duration Met One Impairment Pt does not have an appropriate home exercise program Short Term Goal (STG) Pt to be independent and compliant with an appropriate HEP 07/30/22: progressing: resisted tricep ext, OH raises in w/c, supine HABD, added scaption OH B #2. STG Duration 01/20/23 Progressing Assessment Summary Assessment Will phone [facility] to discuss possibility of setting up appointment time with pt to trial home stander. Pt did well today, showing improvement with eccentric control on leg press. Physical Therapy Plan Frequency and Duration Frequency of Treatment 2x/Week Plan of Care Start Date 11/18/22 Plan of Care End Date 02/16/23 Therapeutic Interventions Therapeutic Interventions Aquatic Therapy,Balance Training,Coordination Training ,Gait Training,Home Exercise Program,Manual Therapy, Neuromuscular Re-education, Orthotic/Prosthetic Management ,Patient/Caregiver Education, Self-Care/Home Management, Sensory Integration,Soft Tissue Mobilization, Therapeutic Activities, Therapeutic Exercises, Wheelchair Management Next Visit Focus/Plan Next Note Type Treatment Note Next Visit Plan Next tx: Alternate Shuttle recovery and sit/stander. *Biodex next. POC: Continue UE and core strengthening, LE PROM and manual stretching. Transfers, mobility, LE ROM
--- NOTE | 2023-01-16 15:15 | PT.OTN ---
Current Diagnoses Paraplegia, unspecified (01/16/23) Other specified personal risk factors, not elsewhere classified (01/16/23) Other specified postprocedural states (01/16/23) Physical Therapy Treatment Note PT-OP-A Visit Information Start: 03/08/22 17:00 Freq: Status: Active Protocol: Document 01/16/23 14:33 SP (Rec: 01/16/23 16:00 SP [id number]) Out-Patient Physical Therapy Visit Information Visit Information Visit Type Treatment Note Visit Start Time 14:33 Visit Stop Time 15:15 Total Visit Minutes 42 Visit Number 77 Number of CHEST PAINTING LEADER Visits 1 Evaluation Information Evaluation Date 03/08/22 PT-OP-B Current Condition Start: 03/08/22 17:00 Freq: Status: Active Protocol: Document 03/08/22 11:15 DCW (Rec: 03/08/22 17:11 DCW [id number]) Current Condition History of Current Condition Onset Date 12/16/21 Current Complaints Paraplegia History of Current Condition Pt is a 71 year old male with a very unfortunate medical history. Pt was hiking [place] on 12/16/21 with a friend, finished up, drive back to his friend's home to drop him off, and noticed his left leg was collapsing. By the time pt drove home, both legs were giving out and numb. Pt was suddenly paralized from the waist down, was taken to the ED, and was flown to [facility] on 12/17/21. The following day, he underwent a laminectomy to relieve pressure from the thoracic epidural hematoma which had developed following his hike, which was pressing on his spinal cord. Following surgery , pt was in recovery for a week and was then transfered to rehab for 20 days, when he was finally discharged home in a wheelchair on 01/19/22. Pt reports his surgeon informed him that it is a possibility that he gets some return of nerve function. Has experienced some changes in his right LE, but has no motor function at this time from ~ T10 down. Minimal sensory return on right side, none on left. Pt has been anxious to get in to therapy and do everything he can to help return to function. Pt's , who attended his evaluation, notes that she has been doing a lot of PROM in his legs at night to keep everything moving. Pt can feel some stretching during PROM in his right leg. Pt has additionally already started occupational therapy, and has been practicing some seated stabilization. Pt transfers with a slide board, but notes it is difficult to do into his car, because he has to transfer upward at an incline. Treatment Goals Patient/Caregiver Goals I will do anything possible to get out of this wheelchair. My neurologist told me he has seen people recover from this , so I am not giving up hope. PT-OP-C Subjective Start: 03/08/22 17:00 Freq: Status: Active Protocol: Document 01/16/23 14:33 SP (Rec: 01/16/23 16:00 SP [id number]) OP-PT Subjective Patient Comments Patient Comments Pt reports has started sleeping on sides with pillows between BLEs and not just back to support pressure relief. He reported does skin integrity checks regularly and states needs be better about repositioning in wc for relief throughout day. He states his current cushion in w/c is really firm and sacrum suspended but wishes was little softer but good support. PT-OP-G Mobility & Gait Start: 03/08/22 17:00 Freq: Status: Active Protocol: Document 08/21/22 15:15 DCW (Rec: 08/21/22 15:38 DCW [id number]) OP Mobility Evaluation Transfers Bed to Chair Transfers Transfers using UE Wheelchair Management Type of Wheelchair Manual w/c PT-OP-H Neuro Start: 03/08/22 17:00 Freq: Status: Active Protocol: Document 08/21/22 15:15 DCW (Rec: 08/21/22 15:38 DCW [id number]) Sensation Evaluation Gross Sensation Gross Sensation Left LE Impaired,Right LE Impaired,Trunk Impaired Sensation Description Paresthesia,Numbness,Tingling, Pins & [place],Burning Dermatome Impairments L1,L2,L3,L4,L5,S1,S2,S3,S4-5 Location Details Right Leg Light Touch Impaired Sharp/Dull Impaired Deep Pressure Impaired Hot/Cold Absent Protective Sensation Absent Proprioception (Position) Impaired Kinesthesia (Movement) Impaired Two-Point Discrimination Absent Tactile Localization Impaired Stereognosis Impaired Left Leg Light Touch Absent Sharp/Dull Absent Deep Pressure Impaired Hot/Cold Absent Protective Sensation Absent Proprioception (Position) Absent Kinesthesia (Movement) Impaired Two-Point Discrimination Absent Tactile Localization Absent Stereognosis Absent Deep Tendon Reflex & Clonus Assessment Deep Tendon Reflex Right Achilles Deep Tendon Reflex 1+ Diminished Right Patellar Deep Tendon Reflex 2+ Normal Left Achilles Deep Tendon Reflex 1+ Diminished Left Patellar Deep Tendon Reflex 0 Absent Muscle Tone Tone Assessment Right Lower Extremity Flexor Tone Description Moderate Hypertonicity Extensor Tone Description Moderate Hypertonicity Left Lower Extremity Flexor Tone Description Moderate Hypertonicity Extensor Tone Description Moderate Hypertonicity PT-OP-J Posture/Palpation/Skin Start: 03/08/22 17:00 Freq: Status: Active Protocol: Document 08/21/22 15:15 DCW (Rec: 08/21/22 15:38 DCW [id number]) Posture Evaluation Comments Posture Comments Significant improvement with core control, able to resist moderate sternal push and self -correct back to sitting position with no LOB. PT-OP-M Strength Start: 08/21/22 15:38 Freq: Status: Active Protocol: Document 08/21/22 15:15 DCW (Rec: 08/21/22 15:40 DCW [id number]) Hip Strength Hip Manual Muscle Testing Right Extension (S1) 2- Poor- Adduction 2- Poor- Left Extension (S1) 1 Trace Adduction 0 Zero Knee Strength Knee Manual Muscle Testing Right Flexion (S2) 1 Trace Extension (L3) 1 Trace Left Flexion (S2) 1 Trace Extension (L3) 0 Zero PT-OP-Q Treatments Start: 03/08/22 17:00 Freq: Status: Active Protocol: Document 01/16/23 14:33 SP (Rec: 01/16/23 16:00 SP [id number]) Cardio Equipment Recumbent Elliptical (Biodex) Duration (Minutes) 10 Resistance 6 Seat Position 10 Other w/c<->Biodex using UEs ( lateral scoot), gait belt, Mod Ax1 Therapeutic Activity Therapeutic Activity sit to stander Name Use 2 loop hole from end on thin strap, lrg loop short strap Reps/Minutes 1 stand Comments in //bars, 2 person (1 posterior pelvic/low back support, 2nd person stander control) Noted quad and gluteal firing with wt shifting forward/back. Min cues for elongated posturing for TS ext with supportive strap at post upper thigh/pelvis. Improved decreased RLE flexor tone. Less BUE support on stander bars approx 25>0% 60% of standing time. Used scale under feet to determine WB through legs. Zeroed out with feet on scale sitting 33.4 lbs, approx additional 108-116 lbs added in standing. squat/lateral scoot transfer Name w/c<> biodex, leg press Reps/Minutes x4 Comments Mod/Max today A throughout gait belt, while support anterior knees to support extension. Cues to patient small pacing transition over/ back w/ core and UEs. Self-Care/Home Management Treatment Education Patient Education Body Mechanics,Posture Other Education Pt signed medical release to allow [facility] get records to assist acquire stander for trial in PT then potentially use for home. Provided pt screenshot of Roho cushion for alternate options for cushion in w/c to allow for supportive but decreased firm that currently has. Pt agreeable to assessing cushion and stander options for carryover home support. PT-OP-T Assessment and Plan Start: 03/08/22 17:00 Freq: Status: Active Protocol: Document 01/16/23 14:33 SP (Rec: 01/16/23 16:00 SP [id number]) Physical Therapy Assessment Goals Three Impairment Pt does not have any motor function throughout bilateral LEs Short Term Goal (STG) Pt to demonstrate 1/5 trace motor contraction in at least one quad in order to begin focus on LE mobility if neural functional return begins. STG Duration Met Correction Goal (LTG) Pt to demonstrate right quad strength to at least 2/5, demonstrating movement into ROM in an antigravity position LTG Duration 02/16/23 - improving Two Impairment Pt struggles to perform slideboard car transfer due to upward tilt Scale Manager Goal (LTG) Pt to demonstrate car transfer SBA using slideboard. 07/30/22: progressing: provides support for trunk stability while pt completes transfer self using slidboard and use over head doorframe handles and car door. has to place/remove slide board. Mod A uphill onto biodex, CG/ MIn A descend off biodex use slideboard. LTG Duration Met One Impairment Pt does not have an appropriate home exercise program Short Term Goal (STG) Pt to be independent and compliant with an appropriate HEP 07/30/22: progressing: resisted tricep ext, OH raises in w/c, supine HABD, added scaption OH B #2. STG Duration 01/20/23 Progressing Assessment Summary Assessment Pt demonstrated glut and quad firing w/ standing pelvic fwd wt shift using mechanical stander, UE support at front rails, demonstrates 74- 82 lbs . Short time spent education on mechanical stander and Roho w/c seat cushion, discussed with PT for carryover pressure relief comfort and opportunity to change positions. Physical Therapy Plan Frequency and Duration Frequency of Treatment 2x/Week Plan of Care Start Date 11/18/22 Plan of Care End Date 02/16/23 Therapeutic Interventions Therapeutic Interventions Aquatic Therapy,Balance Training,Coordination Training ,Gait Training,Home Exercise Program,Manual Therapy, Neuromuscular Re-education, Orthotic/Prosthetic Management ,Patient/Caregiver Education, Self-Care/Home Management, Sensory Integration,Soft Tissue Mobilization, Therapeutic Activities, Therapeutic Exercises, Wheelchair Management Next Visit Focus/Plan Next Note Type Treatment Note Next Visit Plan Next tx: Alternate Shuttle recovery and sit/stander. *Biodex next. POC: Continue UE and core strengthening, LE PROM and manual stretching. Transfers, mobility, LE ROM
--- NOTE | 2023-01-20 16:26 | PT.OTN ---
Current Diagnoses Paraplegia, unspecified (01/20/23) Other specified personal risk factors, not elsewhere classified (01/20/23) Other specified postprocedural states (01/20/23) Physical Therapy Treatment Note PT-OP-A Visit Information Start: 03/08/22 17:00 Freq: Status: Active Protocol: Document 01/20/23 15:45 DCW (Rec: 01/20/23 16:26 DCW [id number]) Out-Patient Physical Therapy Visit Information Visit Information Visit Type Treatment Note Visit Start Time 15:45 Visit Stop Time 16:30 Total Visit Minutes 45 Visit Number 78 Number of RADIO HOST Visits 0 Evaluation Information Evaluation Date 03/08/22 PT-OP-B Current Condition Start: 03/08/22 17:00 Freq: Status: Active Protocol: Document 03/08/22 11:15 DCW (Rec: 03/08/22 17:11 DCW [id number]) Current Condition History of Current Condition Onset Date 12/16/21 Current Complaints Paraplegia History of Current Condition Pt is a 71 year old male with a very unfortunate medical history. Pt was hiking [email or web address] on 12/16/21 with a friend, finished up, drive back to his friend's home to drop him off, and noticed his left leg was collapsing. By the time pt drove home, both legs were giving out and numb. Pt was suddenly paralized from the waist down, was taken to the ED, and was flown to [facility] on 12/17/21. The following day, he underwent a laminectomy to relieve pressure from the thoracic epidural hematoma which had developed following his hike, which was pressing on his spinal cord. Following surgery , pt was in recovery for a week and was then transfered to rehab for 20 days, when he was finally discharged home in a wheelchair on 01/19/22. Pt reports his surgeon informed him that it is a possibility that he gets some return of nerve function. Has experienced some changes in his right LE, but has no motor function at this time from ~ T10 down. Minimal sensory return on right side, none on left. Pt has been anxious to get in to therapy and do everything he can to help return to function. Pt's , who attended his evaluation, notes that she has been doing a lot of PROM in his legs at night to keep everything moving. Pt can feel some stretching during PROM in his right leg. Pt has additionally already started occupational therapy, and has been practicing some seated stabilization. Pt transfers with a slide board, but notes it is difficult to do into his car, because he has to transfer upward at an incline. Treatment Goals Patient/Caregiver Goals I will do anything possible to get out of this wheelchair. My neurologist told me he has seen people recover from this , so I am not giving up hope. PT-OP-C Subjective Start: 03/08/22 17:00 Freq: Status: Active Protocol: Document 01/20/23 15:45 DCW (Rec: 01/20/23 16:26 DCW [id number]) OP-PT Subjective Patient Comments Patient Comments Pt reports he got his garage cleaned out to allow him to perform car transfers inside before the winter weather arrives. PT-OP-G Mobility & Gait Start: 03/08/22 17:00 Freq: Status: Active Protocol: Document 08/21/22 15:15 DCW (Rec: 08/21/22 15:38 DCW [id number]) OP Mobility Evaluation Transfers Bed to Chair Transfers Transfers using UE Wheelchair Management Type of Wheelchair Manual w/c PT-OP-H Neuro Start: 03/08/22 17:00 Freq: Status: Active Protocol: Document 08/21/22 15:15 DCW (Rec: 08/21/22 15:38 DCW [id number]) Sensation Evaluation Gross Sensation Gross Sensation Left LE Impaired,Right LE Impaired,Trunk Impaired Sensation Description Paresthesia,Numbness,Tingling, Pins & [place],Burning Dermatome Impairments L1,L2,L3,L4,L5,S1,S2,S3,S4-5 Location Details Right Leg Light Touch Impaired Sharp/Dull Impaired Deep Pressure Impaired Hot/Cold Absent Protective Sensation Absent Proprioception (Position) Impaired Kinesthesia (Movement) Impaired Two-Point Discrimination Absent Tactile Localization Impaired Stereognosis Impaired Left Leg Light Touch Absent Sharp/Dull Absent Deep Pressure Impaired Hot/Cold Absent Protective Sensation Absent Proprioception (Position) Absent Kinesthesia (Movement) Impaired Two-Point Discrimination Absent Tactile Localization Absent Stereognosis Absent Deep Tendon Reflex & Clonus Assessment Deep Tendon Reflex Right Achilles Deep Tendon Reflex 1+ Diminished Right Patellar Deep Tendon Reflex 2+ Normal Left Achilles Deep Tendon Reflex 1+ Diminished Left Patellar Deep Tendon Reflex 0 Absent Muscle Tone Tone Assessment Right Lower Extremity Flexor Tone Description Moderate Hypertonicity Extensor Tone Description Moderate Hypertonicity Left Lower Extremity Flexor Tone Description Moderate Hypertonicity Extensor Tone Description Moderate Hypertonicity PT-OP-J Posture/Palpation/Skin Start: 03/08/22 17:00 Freq: Status: Active Protocol: Document 08/21/22 15:15 DCW (Rec: 08/21/22 15:38 DCW [id number]) Posture Evaluation Comments Posture Comments Significant improvement with core control, able to resist moderate sternal push and self -correct back to sitting position with no LOB. PT-OP-M Strength Start: 08/21/22 15:38 Freq: Status: Active Protocol: Document 08/21/22 15:15 DCW (Rec: 08/21/22 15:40 DCW [id number]) Hip Strength Hip Manual Muscle Testing Right Extension (S1) 2- Poor- Adduction 2- Poor- Left Extension (S1) 1 Trace Adduction 0 Zero Knee Strength Knee Manual Muscle Testing Right Flexion (S2) 1 Trace Extension (L3) 1 Trace Left Flexion (S2) 1 Trace Extension (L3) 0 Zero PT-OP-Q Treatments Start: 03/08/22 17:00 Freq: Status: Active Protocol: Document 01/20/23 15:45 DCW (Rec: 01/20/23 16:26 DCW [id number]) Cardio Equipment Recumbent Elliptical (Biodex) Duration (Minutes) 10 Resistance 6 Seat Position 10 Other w/c<->Biodex using UEs ( lateral scoot), gait belt, Mod Ax1 Gym Equipment Shuttle Recovery Bilateral Squats Details without and with BUE assist on thighs LE ext Resistance 12# unassisted, 50# assisted Reps/Time Slight movements when unassisted, assisted back-> eccentric lowering Therapeutic Activity Therapeutic Activity squat/lateral scoot transfer Name w/c<> biodex, leg press Reps/Minutes x4 Comments Mod/Max today A throughout gait belt, while support anterior knees to support extension. Cues to patient small pacing transition over/ back w/ core and UEs. PT-OP-T Assessment and Plan Start: 03/08/22 17:00 Freq: Status: Active Protocol: Document 01/20/23 15:45 DCW (Rec: 01/20/23 16:26 DCW [id number]) Physical Therapy Assessment Goals Three Impairment Pt does not have any motor function throughout bilateral LEs Short Term Goal (STG) Pt to demonstrate 1/5 trace motor contraction in at least one quad in order to begin focus on LE mobility if neural functional return begins. STG Duration Met Jail Goal (LTG) Pt to demonstrate right quad strength to at least 2/5, demonstrating movement into ROM in an antigravity position LTG Duration 02/16/23 - improving Two Impairment Pt struggles to perform slideboard car transfer due to upward tilt Jail Goal (LTG) Pt to demonstrate car transfer SBA using slideboard. 07/30/22: progressing: provides support for trunk stability while pt completes transfer self using slidboard and use over head doorframe handles and car door. has to place/remove slide board. Mod A uphill onto biodex, CG/ MIn A descend off biodex use slideboard. LTG Duration Met One Impairment Pt does not have an appropriate home exercise program Short Term Goal (STG) Pt to be independent and compliant with an appropriate HEP 07/30/22: progressing: resisted tricep ext, OH raises in w/c, supine HABD, added scaption OH B #2. STG Duration 01/20/23 Progressing Assessment Summary Assessment Increased instances of extension pattern not allowing pt to lower back down on leg press today. After addition of weight, pt return to prior ability to use quad contraction to slow descent. Physical Therapy Plan Frequency and Duration Frequency of Treatment 2x/Week Plan of Care Start Date 11/18/22 Plan of Care End Date 02/16/23 Therapeutic Interventions Therapeutic Interventions Aquatic Therapy,Balance Training,Coordination Training ,Gait Training,Home Exercise Program,Manual Therapy, Neuromuscular Re-education, Orthotic/Prosthetic Management ,Patient/Caregiver Education, Self-Care/Home Management, Sensory Integration,Soft Tissue Mobilization, Therapeutic Activities, Therapeutic Exercises, Wheelchair Management Next Visit Focus/Plan Next Note Type Treatment Note Next Visit Plan Next tx: Alternate Shuttle recovery and sit/stander. *[place] next. POC: Continue UE and core strengthening, LE PROM and manual stretching. Transfers, mobility, LE ROM
--- NOTE | 2023-01-23 16:29 | PT.OTN ---
Current Diagnoses Paraplegia, unspecified (01/23/23) Other specified personal risk factors, not elsewhere classified (01/23/23) Other specified postprocedural states (01/23/23) Physical Therapy Treatment Note PT-OP-A Visit Information Start: 03/08/22 17:00 Freq: Status: Active Protocol: Document 01/23/23 15:48 DCW (Rec: 01/23/23 16:29 DCW [id number]) Out-Patient Physical Therapy Visit Information Visit Information Visit Type Treatment Note Visit Start Time 15:48 Visit Stop Time 16:30 Total Visit Minutes 42 Visit Number 79 Number of SURVEY ASSOCIATE Visits 0 Evaluation Information Evaluation Date 03/08/22 PT-OP-B Current Condition Start: 03/08/22 17:00 Freq: Status: Active Protocol: Document 03/08/22 11:15 DCW (Rec: 03/08/22 17:11 DCW [id number]) Current Condition History of Current Condition Onset Date 12/16/21 Current Complaints Paraplegia History of Current Condition Pt is a 71 year old male with a very unfortunate medical history. Pt was hiking [employer] on 12/16/21 with a friend, finished up, drive back to his friend's home to drop him off, and noticed his left leg was collapsing. By the time pt drove home, both legs were giving out and numb. Pt was suddenly paralized from the waist down, was taken to the ED, and was flown to [facility] on 12/17/21. The following day, he underwent a laminectomy to relieve pressure from the thoracic epidural hematoma which had developed following his hike, which was pressing on his spinal cord. Following surgery , pt was in recovery for a week and was then transfered to rehab for 20 days, when he was finally discharged home in a wheelchair on 01/19/22. Pt reports his surgeon informed him that it is a possibility that he gets some return of nerve function. Has experienced some changes in his right LE, but has no motor function at this time from ~ T10 down. Minimal sensory return on right side, none on left. Pt has been anxious to get in to therapy and do everything he can to help return to function. Pt's , who attended his evaluation, notes that she has been doing a lot of PROM in his legs at night to keep everything moving. Pt can feel some stretching during PROM in his right leg. Pt has additionally already started occupational therapy, and has been practicing some seated stabilization. Pt transfers with a slide board, but notes it is difficult to do into his car, because he has to transfer upward at an incline. Treatment Goals Patient/Caregiver Goals I will do anything possible to get out of this wheelchair. My neurologist told me he has seen people recover from this , so I am not giving up hope. PT-OP-C Subjective Start: 03/08/22 17:00 Freq: Status: Active Protocol: Document 01/23/23 15:48 DCW (Rec: 01/23/23 16:29 DCW [id number]) OP-PT Subjective Patient Comments Patient Comments Pt feeling good today, but notes he feels like the back of his wheelchair is loose. PT-OP-G Mobility & Gait Start: 03/08/22 17:00 Freq: Status: Active Protocol: Document 08/21/22 15:15 DCW (Rec: 08/21/22 15:38 DCW [id number]) OP Mobility Evaluation Transfers Bed to Chair Transfers Transfers using UE Wheelchair Management Type of Wheelchair Manual w/c PT-OP-H Neuro Start: 03/08/22 17:00 Freq: Status: Active Protocol: Document 08/21/22 15:15 DCW (Rec: 08/21/22 15:38 DCW [id number]) Sensation Evaluation Gross Sensation Gross Sensation Left LE Impaired,Right LE Impaired,Trunk Impaired Sensation Description Paresthesia,Numbness,Tingling, Pins & [place],Burning Dermatome Impairments L1,L2,L3,L4,L5,S1,S2,S3,S4-5 Location Details Right Leg Light Touch Impaired Sharp/Dull Impaired Deep Pressure Impaired Hot/Cold Absent Protective Sensation Absent Proprioception (Position) Impaired Kinesthesia (Movement) Impaired Two-Point Discrimination Absent Tactile Localization Impaired Stereognosis Impaired Left Leg Light Touch Absent Sharp/Dull Absent Deep Pressure Impaired Hot/Cold Absent Protective Sensation Absent Proprioception (Position) Absent Kinesthesia (Movement) Impaired Two-Point Discrimination Absent Tactile Localization Absent Stereognosis Absent Deep Tendon Reflex & Clonus Assessment Deep Tendon Reflex Right Achilles Deep Tendon Reflex 1+ Diminished Right Patellar Deep Tendon Reflex 2+ Normal Left Achilles Deep Tendon Reflex 1+ Diminished Left Patellar Deep Tendon Reflex 0 Absent Muscle Tone Tone Assessment Right Lower Extremity Flexor Tone Description Moderate Hypertonicity Extensor Tone Description Moderate Hypertonicity Left Lower Extremity Flexor Tone Description Moderate Hypertonicity Extensor Tone Description Moderate Hypertonicity PT-OP-J Posture/Palpation/Skin Start: 03/08/22 17:00 Freq: Status: Active Protocol: Document 08/21/22 15:15 DCW (Rec: 08/21/22 15:38 DCW [id number]) Posture Evaluation Comments Posture Comments Significant improvement with core control, able to resist moderate sternal push and self -correct back to sitting position with no LOB. PT-OP-M Strength Start: 08/21/22 15:38 Freq: Status: Active Protocol: Document 08/21/22 15:15 DCW (Rec: 08/21/22 15:40 DCW [id number]) Hip Strength Hip Manual Muscle Testing Right Extension (S1) 2- Poor- Adduction 2- Poor- Left Extension (S1) 1 Trace Adduction 0 Zero Knee Strength Knee Manual Muscle Testing Right Flexion (S2) 1 Trace Extension (L3) 1 Trace Left Flexion (S2) 1 Trace Extension (L3) 0 Zero PT-OP-Q Treatments Start: 03/08/22 17:00 Freq: Status: Active Protocol: Document 01/23/23 15:48 DCW (Rec: 01/23/23 16:29 DCW [id number]) Cardio Equipment Recumbent Elliptical (Biodex) Duration (Minutes) 10 Resistance 6 Seat Position 10 Other w/c<->Biodex using UEs ( lateral scoot), gait belt, Mod Ax1 Therapeutic Activity Therapeutic Activity sit to stander Name Use 2 loop hole from end on thin strap, lrg loop short strap Reps/Minutes 1 stand Comments in //bars, 2 person (1 posterior pelvic/low back support, 2nd person stander control) Noted quad and gluteal firing with wt shifting forward/back. Min cues for elongated posturing for TS ext with supportive strap at post upper thigh/pelvis. Improved decreased RLE flexor tone. Less BUE support on stander bars approx 25>0% 60% of standing time. Used scale under feet to determine WB through legs. Zeroed out with feet on scale sitting 33.4 lbs, approx additional 108-116 lbs added in standing. squat/lateral scoot transfer Name w/c<> biodex Reps/Minutes x2 Comments Mod/Max today A throughout gait belt, while support anterior knees to support extension. Cues to patient small pacing transition over/ back w/ core and UEs. PT-OP-T Assessment and Plan Start: 03/08/22 17:00 Freq: Status: Active Protocol: Document 01/23/23 15:48 DCW (Rec: 01/23/23 16:29 DCW [id number]) Physical Therapy Assessment Goals Three Impairment Pt does not have any motor function throughout bilateral LEs Short Term Goal (STG) Pt to demonstrate 1/5 trace motor contraction in at least one quad in order to begin focus on LE mobility if neural functional return begins. STG Duration Met Usp Goal (LTG) Pt to demonstrate right quad strength to at least 2/5, demonstrating movement into ROM in an antigravity position LTG Duration 02/16/23 - improving Two Impairment Pt struggles to perform slideboard car transfer due to upward tilt Usp Goal (LTG) Pt to demonstrate car transfer SBA using slideboard. 07/30/22: progressing: provides support for trunk stability while pt completes transfer self using slidboard and use over head doorframe handles and car door. has to place/remove slide board. Mod A uphill onto biodex, CG/ MIn A descend off biodex use slideboard. LTG Duration Met One Impairment Pt does not have an appropriate home exercise program Short Term Goal (STG) Pt to be independent and compliant with an appropriate HEP 07/30/22: progressing: resisted tricep ext, OH raises in w/c, supine HABD, added scaption OH B #2. STG Duration 01/20/23 Progressing Physical Therapy Plan Frequency and Duration Frequency of Treatment 2x/Week Plan of Care Start Date 11/18/22 Plan of Care End Date 02/16/23 Therapeutic Interventions Therapeutic Interventions Aquatic Therapy,Balance Training,Coordination Training ,Gait Training,Home Exercise Program,Manual Therapy, Neuromuscular Re-education, Orthotic/Prosthetic Management ,Patient/Caregiver Education, Self-Care/Home Management, Sensory Integration,Soft Tissue Mobilization, Therapeutic Activities, Therapeutic Exercises, Wheelchair Management Next Visit Focus/Plan Next Note Type Treatment Note Next Visit Plan Next tx: Alternate Shuttle recovery and sit/stander. *Leg press next. POC: Continue UE and core strengthening, LE PROM and manual stretching. Transfers, mobility, LE ROM
--- NOTE | 2023-01-27 16:27 | PT.OTN ---
Current Diagnoses Paraplegia, unspecified (01/27/23) Other specified personal risk factors, not elsewhere classified (01/27/23) Other specified postprocedural states (01/27/23) Physical Therapy Treatment Note PT-OP-A Visit Information Start: 03/08/22 17:00 Freq: Status: Active Protocol: Document 01/27/23 15:48 DCW (Rec: 01/27/23 16:27 DCW [id number]) Out-Patient Physical Therapy Visit Information Visit Information Visit Type Treatment Note Visit Start Time 15:48 Visit Stop Time 16:30 Total Visit Minutes 42 Visit Number 80 Number of PROTOTYPE SEWER Visits 0 Evaluation Information Evaluation Date 03/08/22 PT-OP-B Current Condition Start: 03/08/22 17:00 Freq: Status: Active Protocol: Document 03/08/22 11:15 DCW (Rec: 03/08/22 17:11 DCW [id number]) Current Condition History of Current Condition Onset Date 12/16/21 Current Complaints Paraplegia History of Current Condition Pt is a 71 year old male with a very unfortunate medical history. Pt was hiking [employer] on 12/16/21 with a friend, finished up, drive back to his friend's home to drop him off, and noticed his left leg was collapsing. By the time pt drove home, both legs were giving out and numb. Pt was suddenly paralized from the waist down, was taken to the ED, and was flown to [facility] on 12/17/21. The following day, he underwent a laminectomy to relieve pressure from the thoracic epidural hematoma which had developed following his hike, which was pressing on his spinal cord. Following surgery , pt was in recovery for a week and was then transfered to rehab for 20 days, when he was finally discharged home in a wheelchair on 01/19/22. Pt reports his surgeon informed him that it is a possibility that he gets some return of nerve function. Has experienced some changes in his right LE, but has no motor function at this time from ~ T10 down. Minimal sensory return on right side, none on left. Pt has been anxious to get in to therapy and do everything he can to help return to function. Pt's , who attended his evaluation, notes that she has been doing a lot of PROM in his legs at night to keep everything moving. Pt can feel some stretching during PROM in his right leg. Pt has additionally already started occupational therapy, and has been practicing some seated stabilization. Pt transfers with a slide board, but notes it is difficult to do into his car, because he has to transfer upward at an incline. Treatment Goals Patient/Caregiver Goals I will do anything possible to get out of this wheelchair. My neurologist told me he has seen people recover from this , so I am not giving up hope. PT-OP-C Subjective Start: 03/08/22 17:00 Freq: Status: Active Protocol: Document 01/27/23 15:48 DCW (Rec: 01/27/23 16:27 DCW [id number]) OP-PT Subjective Patient Comments Patient Comments My right leg is as stiff as anything, but I kind of wish my left leg would do the same thing. PT-OP-G Mobility & Gait Start: 03/08/22 17:00 Freq: Status: Active Protocol: Document 08/21/22 15:15 DCW (Rec: 08/21/22 15:38 DCW [id number]) OP Mobility Evaluation Transfers Bed to Chair Transfers Transfers using UE Wheelchair Management Type of Wheelchair Manual w/c PT-OP-H Neuro Start: 03/08/22 17:00 Freq: Status: Active Protocol: Document 08/21/22 15:15 DCW (Rec: 08/21/22 15:38 DCW [id number]) Sensation Evaluation Gross Sensation Gross Sensation Left LE Impaired,Right LE Impaired,Trunk Impaired Sensation Description Paresthesia,Numbness,Tingling, Pins & [place],Burning Dermatome Impairments L1,L2,L3,L4,L5,S1,S2,S3,S4-5 Location Details Right Leg Light Touch Impaired Sharp/Dull Impaired Deep Pressure Impaired Hot/Cold Absent Protective Sensation Absent Proprioception (Position) Impaired Kinesthesia (Movement) Impaired Two-Point Discrimination Absent Tactile Localization Impaired Stereognosis Impaired Left Leg Light Touch Absent Sharp/Dull Absent Deep Pressure Impaired Hot/Cold Absent Protective Sensation Absent Proprioception (Position) Absent Kinesthesia (Movement) Impaired Two-Point Discrimination Absent Tactile Localization Absent Stereognosis Absent Deep Tendon Reflex & Clonus Assessment Deep Tendon Reflex Right Achilles Deep Tendon Reflex 1+ Diminished Right Patellar Deep Tendon Reflex 2+ Normal Left Achilles Deep Tendon Reflex 1+ Diminished Left Patellar Deep Tendon Reflex 0 Absent Muscle Tone Tone Assessment Right Lower Extremity Flexor Tone Description Moderate Hypertonicity Extensor Tone Description Moderate Hypertonicity Left Lower Extremity Flexor Tone Description Moderate Hypertonicity Extensor Tone Description Moderate Hypertonicity PT-OP-J Posture/Palpation/Skin Start: 03/08/22 17:00 Freq: Status: Active Protocol: Document 08/21/22 15:15 DCW (Rec: 08/21/22 15:38 DCW [id number]) Posture Evaluation Comments Posture Comments Significant improvement with core control, able to resist moderate sternal push and self -correct back to sitting position with no LOB. PT-OP-M Strength Start: 08/21/22 15:38 Freq: Status: Active Protocol: Document 08/21/22 15:15 DCW (Rec: 08/21/22 15:40 DCW [id number]) Hip Strength Hip Manual Muscle Testing Right Extension (S1) 2- Poor- Adduction 2- Poor- Left Extension (S1) 1 Trace Adduction 0 Zero Knee Strength Knee Manual Muscle Testing Right Flexion (S2) 1 Trace Extension (L3) 1 Trace Left Flexion (S2) 1 Trace Extension (L3) 0 Zero PT-OP-Q Treatments Start: 03/08/22 17:00 Freq: Status: Active Protocol: Document 01/27/23 15:48 DCW (Rec: 01/27/23 16:27 DCW [id number]) Cardio Equipment Recumbent Elliptical (Biodex) Duration (Minutes) 10 Resistance 6 Seat Position 10 Other w/c<->Biodex using UEs ( lateral scoot), gait belt, Mod Ax1 Gym Equipment Shuttle Recovery Bilateral Squats Details without and with BUE assist on thighs LE ext Resistance 12# unassisted, 50# assisted Reps/Time Slight movements when unassisted, assisted back-> eccentric lowering Therapeutic Activity Therapeutic Activity squat/lateral scoot transfer Name w/c<> biodex, leg press Reps/Minutes x4 Comments Mod/Max today A throughout gait belt, while support anterior knees to support extension. Cues to patient small pacing transition over/ back w/ core and UEs. PT-OP-T Assessment and Plan Start: 03/08/22 17:00 Freq: Status: Active Protocol: Document 01/27/23 15:48 DCW (Rec: 01/27/23 16:27 DCW [id number]) Physical Therapy Assessment Goals Three Impairment Pt does not have any motor function throughout bilateral LEs Short Term Goal (STG) Pt to demonstrate 1/5 trace motor contraction in at least one quad in order to begin focus on LE mobility if neural functional return begins. STG Duration Met Residential Goal (LTG) Pt to demonstrate right quad strength to at least 2/5, demonstrating movement into ROM in an antigravity position LTG Duration 02/16/23 - improving Two Impairment Pt struggles to perform slideboard car transfer due to upward tilt Tax Record Clerk Goal (LTG) Pt to demonstrate car transfer SBA using slideboard. 07/30/22: progressing: provides support for trunk stability while pt completes transfer self using slidboard and use over head doorframe handles and car door. has to place/remove slide board. Mod A uphill onto biodex, CG/ MIn A descend off biodex use slideboard. LTG Duration Met One Impairment Pt does not have an appropriate home exercise program Short Term Goal (STG) Pt to be independent and compliant with an appropriate HEP 07/30/22: progressing: resisted tricep ext, OH raises in w/c, supine HABD, added scaption OH B #2. STG Duration 01/20/23 Progressing Assessment Summary Assessment Pt had good results today on leg press with chacho quads by using tapping. Plann to have [facility] come on 02/06 to trial stander for home. Physical Therapy Plan Frequency and Duration Frequency of Treatment 2x/Week Plan of Care Start Date 11/18/22 Plan of Care End Date 02/16/23 Therapeutic Interventions Therapeutic Interventions Aquatic Therapy,Balance Training,Coordination Training ,Gait Training,Home Exercise Program,Manual Therapy, Neuromuscular Re-education, Orthotic/Prosthetic Management ,Patient/Caregiver Education, Self-Care/Home Management, Sensory Integration,Soft Tissue Mobilization, Therapeutic Activities, Therapeutic Exercises, Wheelchair Management Next Visit Focus/Plan Next Note Type Treatment Note Next Visit Plan Next tx: Alternate Shuttle recovery and sit/stander. *Stander next. POC: Continue UE and core strengthening, LE PROM and manual stretching. Transfers, mobility, LE ROM
--- NOTE | 2023-01-30 15:12 | PT.OTN ---
Current Diagnoses Paraplegia, unspecified (01/30/23) Other specified personal risk factors, not elsewhere classified (01/30/23) Other specified postprocedural states (01/30/23) Physical Therapy Treatment Note PT-OP-A Visit Information Start: 03/08/22 17:00 Freq: Status: Active Protocol: Document 01/30/23 14:31 SP (Rec: 01/30/23 15:22 SP [id number]) Out-Patient Physical Therapy Visit Information Visit Information Visit Type Treatment Note Visit Start Time 14:31 Visit Stop Time 15:12 Total Visit Minutes 41 Visit Number 81 Number of FIGHT MANAGER Visits 1 Evaluation Information Evaluation Date 03/08/22 PT-OP-B Current Condition Start: 03/08/22 17:00 Freq: Status: Active Protocol: Document 03/08/22 11:15 DCW (Rec: 03/08/22 17:11 DCW [id number]) Current Condition History of Current Condition Onset Date 12/16/21 Current Complaints Paraplegia History of Current Condition Pt is a 71 year old male with a very unfortunate medical history. Pt was hiking [employer] on 12/16/21 with a friend, finished up, drive back to his friend's home to drop him off, and noticed his left leg was collapsing. By the time pt drove home, both legs were giving out and numb. Pt was suddenly paralized from the waist down, was taken to the ED, and was flown to [facility] on 12/17/21. The following day, he underwent a laminectomy to relieve pressure from the thoracic epidural hematoma which had developed following his hike, which was pressing on his spinal cord. Following surgery , pt was in recovery for a week and was then transfered to rehab for 20 days, when he was finally discharged home in a wheelchair on 01/19/22. Pt reports his surgeon informed him that it is a possibility that he gets some return of nerve function. Has experienced some changes in his right LE, but has no motor function at this time from ~ T10 down. Minimal sensory return on right side, none on left. Pt has been anxious to get in to therapy and do everything he can to help return to function. Pt's , who attended his evaluation, notes that she has been doing a lot of PROM in his legs at night to keep everything moving. Pt can feel some stretching during PROM in his right leg. Pt has additionally already started occupational therapy, and has been practicing some seated stabilization. Pt transfers with a slide board, but notes it is difficult to do into his car, because he has to transfer upward at an incline. Treatment Goals Patient/Caregiver Goals I will do anything possible to get out of this wheelchair. My neurologist told me he has seen people recover from this , so I am not giving up hope. PT-OP-C Subjective Start: 03/08/22 17:00 Freq: Status: Active Protocol: Document 01/30/23 14:31 SP (Rec: 01/30/23 15:22 SP [id number]) OP-PT Subjective Patient Comments Patient Comments Pt reports leg unrulely and has to focus on relaxing then muscles will settle down and then others can help move his legs where needed. At times at night his legs get spasming starts in abdomen and goes down legs jumping around and subsides on/off, other nights like a mummy relaxed and sleep peaceful. PT-OP-G Mobility & Gait Start: 03/08/22 17:00 Freq: Status: Active Protocol: Document 08/21/22 15:15 DCW (Rec: 08/21/22 15:38 DCW [id number]) OP Mobility Evaluation Transfers Bed to Chair Transfers Transfers using UE Wheelchair Management Type of Wheelchair Manual w/c PT-OP-H Neuro Start: 03/08/22 17:00 Freq: Status: Active Protocol: Document 08/21/22 15:15 DCW (Rec: 08/21/22 15:38 DCW [id number]) Sensation Evaluation Gross Sensation Gross Sensation Left LE Impaired,Right LE Impaired,Trunk Impaired Sensation Description Paresthesia,Numbness,Tingling, Pins & [place],Burning Dermatome Impairments L1,L2,L3,L4,L5,S1,S2,S3,S4-5 Location Details Right Leg Light Touch Impaired Sharp/Dull Impaired Deep Pressure Impaired Hot/Cold Absent Protective Sensation Absent Proprioception (Position) Impaired Kinesthesia (Movement) Impaired Two-Point Discrimination Absent Tactile Localization Impaired Stereognosis Impaired Left Leg Light Touch Absent Sharp/Dull Absent Deep Pressure Impaired Hot/Cold Absent Protective Sensation Absent Proprioception (Position) Absent Kinesthesia (Movement) Impaired Two-Point Discrimination Absent Tactile Localization Absent Stereognosis Absent Deep Tendon Reflex & Clonus Assessment Deep Tendon Reflex Right Achilles Deep Tendon Reflex 1+ Diminished Right Patellar Deep Tendon Reflex 2+ Normal Left Achilles Deep Tendon Reflex 1+ Diminished Left Patellar Deep Tendon Reflex 0 Absent Muscle Tone Tone Assessment Right Lower Extremity Flexor Tone Description Moderate Hypertonicity Extensor Tone Description Moderate Hypertonicity Left Lower Extremity Flexor Tone Description Moderate Hypertonicity Extensor Tone Description Moderate Hypertonicity PT-OP-J Posture/Palpation/Skin Start: 03/08/22 17:00 Freq: Status: Active Protocol: Document 08/21/22 15:15 DCW (Rec: 08/21/22 15:38 DCW [id number]) Posture Evaluation Comments Posture Comments Significant improvement with core control, able to resist moderate sternal push and self -correct back to sitting position with no LOB. PT-OP-M Strength Start: 08/21/22 15:38 Freq: Status: Active Protocol: Document 08/21/22 15:15 DCW (Rec: 08/21/22 15:40 DCW [id number]) Hip Strength Hip Manual Muscle Testing Right Extension (S1) 2- Poor- Adduction 2- Poor- Left Extension (S1) 1 Trace Adduction 0 Zero Knee Strength Knee Manual Muscle Testing Right Flexion (S2) 1 Trace Extension (L3) 1 Trace Left Flexion (S2) 1 Trace Extension (L3) 0 Zero PT-OP-Q Treatments Start: 03/08/22 17:00 Freq: Status: Active Protocol: Document 01/30/23 14:31 SP (Rec: 01/30/23 15:22 SP [id number]) Cardio Equipment Recumbent Elliptical (Biodex) Duration (Minutes) 10 Resistance 6 Seat Position 10 Other w/c<->Biodex using UEs ( lateral scoot), gait belt, Mod Ax1 Therapeutic Activity Therapeutic Activity sit to stander Name Use 2 loop hole from end on thin strap, lrg loop short strap Reps/Minutes 1 stand Comments in //bars, 2 person (1 posterior pelvic/low back support, 2nd person stander control) Noted quad and gluteal firing with wt shifting forward/back. Min cues for elongated posturing for TS ext with supportive strap at post upper thigh/pelvis. Improved decreased RLE flexor tone. Less BUE support on stander bars approx 25>0% 60% of standing time. Used scale under feet to determine WB through legs. Zeroed out with feet on scale sitting 31.2 lbs, uncertain WB BLE lbs on scale kept turning off today 01/30/23. squat/lateral scoot transfer Name w/c<> biodex, leg press Reps/Minutes x2 Comments Mod/Max today A throughout gait belt, while support anterior knees to support extension. Cues to patient small pacing transition over/ back w/ core and UEs. PT-OP-T Assessment and Plan Start: 03/08/22 17:00 Freq: Status: Active Protocol: Document 01/30/23 14:31 SP (Rec: 01/30/23 15:22 SP [id number]) Physical Therapy Assessment Goals Three Impairment Pt does not have any motor function throughout bilateral LEs Short Term Goal (STG) Pt to demonstrate 1/5 trace motor contraction in at least one quad in order to begin focus on LE mobility if neural functional return begins. STG Duration Met Cell Tender Helper Goal (LTG) Pt to demonstrate right quad strength to at least 2/5, demonstrating movement into ROM in an antigravity position LTG Duration 02/16/23 - improving Two Impairment Pt struggles to perform slideboard car transfer due to upward tilt Senior [facility] Goal (LTG) Pt to demonstrate car transfer SBA using slideboard. 07/30/22: progressing: provides support for trunk stability while pt completes transfer self using slidboard and use over head doorframe handles and car door. has to place/remove slide board. Mod A uphill onto biodex, CG/ MIn A descend off biodex use slideboard. LTG Duration Met One Impairment Pt does not have an appropriate home exercise program Short Term Goal (STG) Pt to be independent and compliant with an appropriate HEP 07/30/22: progressing: resisted tricep ext, OH raises in w/c, supine HABD, added scaption OH B #2. STG Duration 01/20/23 Progressing Assessment Summary Assessment Pt reports feels good sensation in back and down legs when in stander. Able to come to increased ascent into standing before R hip& knee flexor tone spasmed. Physical Therapy Plan Frequency and Duration Frequency of Treatment 2x/Week Plan of Care Start Date 11/18/22 Plan of Care End Date 02/16/23 Therapeutic Interventions Therapeutic Interventions Aquatic Therapy,Balance Training,Coordination Training ,Gait Training,Home Exercise Program,Manual Therapy, Neuromuscular Re-education, Orthotic/Prosthetic Management ,Patient/Caregiver Education, Self-Care/Home Management, Sensory Integration,Soft Tissue Mobilization, Therapeutic Activities, Therapeutic Exercises, Wheelchair Management Next Visit Focus/Plan Next Note Type Treatment Note Next Visit Plan [facility] [place] plans to come on 02/06 to trial stander for home. Next tx: Alternate Shuttle recovery and sit/stander. *Biodex next. POC: Continue UE and core strengthening, LE PROM and manual stretching. Transfers, mobility, LE ROM
--- NOTE | 2023-02-03 16:30 | PT.OTN ---
Current Diagnoses Paraplegia, unspecified (02/03/23) Other specified personal risk factors, not elsewhere classified (02/03/23) Other specified postprocedural states (02/03/23) Physical Therapy Treatment Note PT-OP-A Visit Information Start: 03/08/22 17:00 Freq: Status: Active Protocol: Document 02/03/23 15:45 DCW (Rec: 02/03/23 16:30 DCW [id number]) Out-Patient Physical Therapy Visit Information Visit Information Visit Type Treatment Note Visit Start Time 15:45 Visit Stop Time 16:30 Total Visit Minutes 45 Visit Number 82 Number of RN OFFICE Visits 0 Evaluation Information Evaluation Date 03/08/22 PT-OP-B Current Condition Start: 03/08/22 17:00 Freq: Status: Active Protocol: Document 03/08/22 11:15 DCW (Rec: 03/08/22 17:11 DCW [id number]) Current Condition History of Current Condition Onset Date 12/16/21 Current Complaints Paraplegia History of Current Condition Pt is a 71 year old male with a very unfortunate medical history. Pt was hiking [employer] on 12/16/21 with a friend, finished up, drive back to his friend's home to drop him off, and noticed his left leg was collapsing. By the time pt drove home, both legs were giving out and numb. Pt was suddenly paralized from the waist down, was taken to the ED, and was flown to [facility] on 12/17/21. The following day, he underwent a laminectomy to relieve pressure from the thoracic epidural hematoma which had developed following his hike, which was pressing on his spinal cord. Following surgery , pt was in recovery for a week and was then transfered to rehab for 20 days, when he was finally discharged home in a wheelchair on 01/19/22. Pt reports his surgeon informed him that it is a possibility that he gets some return of nerve function. Has experienced some changes in his right LE, but has no motor function at this time from ~ T10 down. Minimal sensory return on right side, none on left. Pt has been anxious to get in to therapy and do everything he can to help return to function. Pt's , who attended his evaluation, notes that she has been doing a lot of PROM in his legs at night to keep everything moving. Pt can feel some stretching during PROM in his right leg. Pt has additionally already started occupational therapy, and has been practicing some seated stabilization. Pt transfers with a slide board, but notes it is difficult to do into his car, because he has to transfer upward at an incline. Treatment Goals Patient/Caregiver Goals I will do anything possible to get out of this wheelchair. My neurologist told me he has seen people recover from this , so I am not giving up hope. PT-OP-C Subjective Start: 03/08/22 17:00 Freq: Status: Active Protocol: Document 02/03/23 15:45 DCW (Rec: 02/03/23 16:30 DCW [id number]) OP-PT Subjective Patient Comments Patient Comments Pt feeling pretty good overall , optimistic with recent changes in R LE sensation. PT-OP-G Mobility & Gait Start: 03/08/22 17:00 Freq: Status: Active Protocol: Document 08/21/22 15:15 DCW (Rec: 08/21/22 15:38 DCW [id number]) OP Mobility Evaluation Transfers Bed to Chair Transfers Transfers using UE Wheelchair Management Type of Wheelchair Manual w/c PT-OP-H Neuro Start: 03/08/22 17:00 Freq: Status: Active Protocol: Document 08/21/22 15:15 DCW (Rec: 08/21/22 15:38 DCW [id number]) Sensation Evaluation Gross Sensation Gross Sensation Left LE Impaired,Right LE Impaired,Trunk Impaired Sensation Description Paresthesia,Numbness,Tingling, Pins & [place],Burning Dermatome Impairments L1,L2,L3,L4,L5,S1,S2,S3,S4-5 Location Details Right Leg Light Touch Impaired Sharp/Dull Impaired Deep Pressure Impaired Hot/Cold Absent Protective Sensation Absent Proprioception (Position) Impaired Kinesthesia (Movement) Impaired Two-Point Discrimination Absent Tactile Localization Impaired Stereognosis Impaired Left Leg Light Touch Absent Sharp/Dull Absent Deep Pressure Impaired Hot/Cold Absent Protective Sensation Absent Proprioception (Position) Absent Kinesthesia (Movement) Impaired Two-Point Discrimination Absent Tactile Localization Absent Stereognosis Absent Deep Tendon Reflex & Clonus Assessment Deep Tendon Reflex Right Achilles Deep Tendon Reflex 1+ Diminished Right Patellar Deep Tendon Reflex 2+ Normal Left Achilles Deep Tendon Reflex 1+ Diminished Left Patellar Deep Tendon Reflex 0 Absent Muscle Tone Tone Assessment Right Lower Extremity Flexor Tone Description Moderate Hypertonicity Extensor Tone Description Moderate Hypertonicity Left Lower Extremity Flexor Tone Description Moderate Hypertonicity Extensor Tone Description Moderate Hypertonicity PT-OP-J Posture/Palpation/Skin Start: 03/08/22 17:00 Freq: Status: Active Protocol: Document 08/21/22 15:15 DCW (Rec: 08/21/22 15:38 DCW [id number]) Posture Evaluation Comments Posture Comments Significant improvement with core control, able to resist moderate sternal push and self -correct back to sitting position with no LOB. PT-OP-M Strength Start: 08/21/22 15:38 Freq: Status: Active Protocol: Document 08/21/22 15:15 DCW (Rec: 08/21/22 15:40 DCW [id number]) Hip Strength Hip Manual Muscle Testing Right Extension (S1) 2- Poor- Adduction 2- Poor- Left Extension (S1) 1 Trace Adduction 0 Zero Knee Strength Knee Manual Muscle Testing Right Flexion (S2) 1 Trace Extension (L3) 1 Trace Left Flexion (S2) 1 Trace Extension (L3) 0 Zero PT-OP-Q Treatments Start: 03/08/22 17:00 Freq: Status: Active Protocol: Document 02/03/23 15:45 DCW (Rec: 02/03/23 16:30 DCW [id number]) Cardio Equipment Recumbent Elliptical (Biodex) Duration (Minutes) 10 Resistance 6 Seat Position 10 Other w/c<->Biodex using UEs ( lateral scoot), gait belt, Mod Ax1 Gym Equipment Shuttle Recovery Bilateral Squats Details without and with BUE assist on thighs LE ext Resistance 12# unassisted, 50# assisted Reps/Time Slight movements when unassisted, assisted back-> eccentric lowering Therapeutic Activity Therapeutic Activity squat/lateral scoot transfer Name w/c<> biodex, leg press Reps/Minutes x4 Comments Mod/Max today A throughout gait belt, while support anterior knees to support extension. Cues to patient small pacing transition over/ back w/ core and UEs. PT-OP-T Assessment and Plan Start: 03/08/22 17:00 Freq: Status: Active Protocol: Document 02/03/23 15:45 DCW (Rec: 02/03/23 16:30 DCW [id number]) Physical Therapy Assessment Goals Three Impairment Pt does not have any motor function throughout bilateral LEs Short Term Goal (STG) Pt to demonstrate 1/5 trace motor contraction in at least one quad in order to begin focus on LE mobility if neural functional return begins. STG Duration Met Cpo Goal (LTG) Pt to demonstrate right quad strength to at least 2/5, demonstrating movement into ROM in an antigravity position LTG Duration 02/16/23 - improving Two Impairment Pt struggles to perform slideboard car transfer due to upward tilt Cpo Goal (LTG) Pt to demonstrate car transfer SBA using slideboard. 07/30/22: progressing: provides support for trunk stability while pt completes transfer self using slidboard and use over head doorframe handles and car door. has to place/remove slide board. Mod A uphill onto biodex, CG/ MIn A descend off biodex use slideboard. LTG Duration Met One Impairment Pt does not have an appropriate home exercise program Short Term Goal (STG) Pt to be independent and compliant with an appropriate HEP 07/30/22: progressing: resisted tricep ext, OH raises in w/c, supine HABD, added scaption OH B #2. STG Duration 01/20/23 Progressing Assessment Summary Assessment Pt doing well with leg press today, showing good improvement in ability to slow descent with 50# resistance. Next visit [facility] to participate in trial of stander for home. Physical Therapy Plan Frequency and Duration Frequency of Treatment 2x/Week Plan of Care Start Date 11/18/22 Plan of Care End Date 02/16/23 Therapeutic Interventions Therapeutic Interventions Aquatic Therapy,Balance Training,Coordination Training ,Gait Training,Home Exercise Program,Manual Therapy, Neuromuscular Re-education, Orthotic/Prosthetic Management ,Patient/Caregiver Education, Self-Care/Home Management, Sensory Integration,Soft Tissue Mobilization, Therapeutic Activities, Therapeutic Exercises, Wheelchair Management Next Visit Focus/Plan Next Note Type Treatment Note Next Visit Plan [facility] plans to come on 02/06 to trial stander for home. Next tx: Alternate Shuttle recovery and sit/stander. *[facility] trial of home stander. POC: Continue UE and core strengthening, LE PROM and manual stretching. Transfers, mobility, LE ROM
--- NOTE | 2023-02-06 17:27 | PT.OTN ---
Current Diagnoses Paraplegia, unspecified (02/06/23) Other specified personal risk factors, not elsewhere classified (02/06/23) Other specified postprocedural states (02/06/23) Physical Therapy Treatment Note PT-OP-A Visit Information Start: 03/08/22 17:00 Freq: Status: Active Protocol: Document 02/06/23 15:45 DCW (Rec: 02/06/23 17:27 DCW [id number]) Out-Patient Physical Therapy Visit Information Visit Information Visit Type Treatment Note Visit Start Time 15:45 Visit Stop Time 16:30 Total Visit Minutes 45 Visit Number 83 Number of CLINICAL REHAB SPECIALIST Visits 0 Evaluation Information Evaluation Date 03/08/22 PT-OP-B Current Condition Start: 03/08/22 17:00 Freq: Status: Active Protocol: Document 03/08/22 11:15 DCW (Rec: 03/08/22 17:11 DCW [id number]) Current Condition History of Current Condition Onset Date 12/16/21 Current Complaints Paraplegia History of Current Condition Pt is a 71 year old male with a very unfortunate medical history. Pt was hiking [place] on 12/16/21 with a friend, finished up, drive back to his friend's home to drop him off, and noticed his left leg was collapsing. By the time pt drove home, both legs were giving out and numb. Pt was suddenly paralized from the waist down, was taken to the ED, and was flown to [facility] on 12/17/21. The following day, he underwent a laminectomy to relieve pressure from the thoracic epidural hematoma which had developed following his hike, which was pressing on his spinal cord. Following surgery , pt was in recovery for a week and was then transfered to rehab for 20 days, when he was finally discharged home in a wheelchair on 01/19/22. Pt reports his surgeon informed him that it is a possibility that he gets some return of nerve function. Has experienced some changes in his right LE, but has no motor function at this time from ~ T10 down. Minimal sensory return on right side, none on left. Pt has been anxious to get in to therapy and do everything he can to help return to function. Pt's , who attended his evaluation, notes that she has been doing a lot of PROM in his legs at night to keep everything moving. Pt can feel some stretching during PROM in his right leg. Pt has additionally already started occupational therapy, and has been practicing some seated stabilization. Pt transfers with a slide board, but notes it is difficult to do into his car, because he has to transfer upward at an incline. Treatment Goals Patient/Caregiver Goals I will do anything possible to get out of this wheelchair. My neurologist told me he has seen people recover from this , so I am not giving up hope. PT-OP-C Subjective Start: 03/08/22 17:00 Freq: Status: Active Protocol: Document 02/06/23 15:45 DCW (Rec: 02/06/23 17:27 DCW [id number]) OP-PT Subjective Patient Comments Patient Comments Pt excited for trial of Easystand Evolv today PT-OP-G Mobility & Gait Start: 03/08/22 17:00 Freq: Status: Active Protocol: Document 08/21/22 15:15 DCW (Rec: 08/21/22 15:38 DCW [id number]) OP Mobility Evaluation Transfers Bed to Chair Transfers Transfers using UE Wheelchair Management Type of Wheelchair Manual w/c PT-OP-H Neuro Start: 03/08/22 17:00 Freq: Status: Active Protocol: Document 08/21/22 15:15 DCW (Rec: 08/21/22 15:38 DCW [id number]) Sensation Evaluation Gross Sensation Gross Sensation Left LE Impaired,Right LE Impaired,Trunk Impaired Sensation Description Paresthesia,Numbness,Tingling, Pins & [place],Burning Dermatome Impairments L1,L2,L3,L4,L5,S1,S2,S3,S4-5 Location Details Right Leg Light Touch Impaired Sharp/Dull Impaired Deep Pressure Impaired Hot/Cold Absent Protective Sensation Absent Proprioception (Position) Impaired Kinesthesia (Movement) Impaired Two-Point Discrimination Absent Tactile Localization Impaired Stereognosis Impaired Left Leg Light Touch Absent Sharp/Dull Absent Deep Pressure Impaired Hot/Cold Absent Protective Sensation Absent Proprioception (Position) Absent Kinesthesia (Movement) Impaired Two-Point Discrimination Absent Tactile Localization Absent Stereognosis Absent Deep Tendon Reflex & Clonus Assessment Deep Tendon Reflex Right Achilles Deep Tendon Reflex 1+ Diminished Right Patellar Deep Tendon Reflex 2+ Normal Left Achilles Deep Tendon Reflex 1+ Diminished Left Patellar Deep Tendon Reflex 0 Absent Muscle Tone Tone Assessment Right Lower Extremity Flexor Tone Description Moderate Hypertonicity Extensor Tone Description Moderate Hypertonicity Left Lower Extremity Flexor Tone Description Moderate Hypertonicity Extensor Tone Description Moderate Hypertonicity PT-OP-J Posture/Palpation/Skin Start: 03/08/22 17:00 Freq: Status: Active Protocol: Document 08/21/22 15:15 DCW (Rec: 08/21/22 15:38 DCW [id number]) Posture Evaluation Comments Posture Comments Significant improvement with core control, able to resist moderate sternal push and self -correct back to sitting position with no LOB. PT-OP-M Strength Start: 08/21/22 15:38 Freq: Status: Active Protocol: Document 08/21/22 15:15 DCW (Rec: 08/21/22 15:40 DCW [id number]) Hip Strength Hip Manual Muscle Testing Right Extension (S1) 2- Poor- Adduction 2- Poor- Left Extension (S1) 1 Trace Adduction 0 Zero Knee Strength Knee Manual Muscle Testing Right Flexion (S2) 1 Trace Extension (L3) 1 Trace Left Flexion (S2) 1 Trace Extension (L3) 0 Zero PT-OP-Q Treatments Start: 03/08/22 17:00 Freq: Status: Active Protocol: Document 02/06/23 15:45 DCW (Rec: 02/06/23 17:27 DCW [id number]) Therapeutic Activity Therapeutic Activity sit to stander Comments Easystand Evolv stander fitting and trial PT-OP-T Assessment and Plan Start: 03/08/22 17:00 Freq: Status: Active Protocol: Document 02/06/23 15:45 DCW (Rec: 02/06/23 17:27 DCW [id number]) Physical Therapy Assessment Goals Three Impairment Pt does not have any motor function throughout bilateral LEs Short Term Goal (STG) Pt to demonstrate 1/5 trace motor contraction in at least one quad in order to begin focus on LE mobility if neural functional return begins. STG Duration Met Usp Goal (LTG) Pt to demonstrate right quad strength to at least 2/5, demonstrating movement into ROM in an antigravity position LTG Duration 02/16/23 - improving Two Impairment Pt struggles to perform slideboard car transfer due to upward tilt Escapement Maker Goal (LTG) Pt to demonstrate car transfer SBA using slideboard. 07/30/22: progressing: provides support for trunk stability while pt completes transfer self using slidboard and use over head doorframe handles and car door. has to place/remove slide board. Mod A uphill onto biodex, CG/ MIn A descend off biodex use slideboard. LTG Duration Met One Impairment Pt does not have an appropriate home exercise program Short Term Goal (STG) Pt to be independent and compliant with an appropriate HEP 07/30/22: progressing: resisted tricep ext, OH raises in w/c, supine HABD, added scaption OH B #2. STG Duration 01/20/23 Progressing Assessment Summary Assessment Worked with Osmar Love from [email or web address] today for trial of pt's Easystand Evolv stander. Worked on proper fit of stander, as well as trial for pt's potential home use. Good response from pt, as well as his , who remained in clinic for trial. Physical Therapy Plan Frequency and Duration Frequency of Treatment 2x/Week Plan of Care Start Date 11/18/22 Plan of Care End Date 02/16/23 Therapeutic Interventions Therapeutic Interventions Aquatic Therapy,Balance Training,Coordination Training ,Gait Training,Home Exercise Program,Manual Therapy, Neuromuscular Re-education, Orthotic/Prosthetic Management ,Patient/Caregiver Education, Self-Care/Home Management, Sensory Integration,Soft Tissue Mobilization, Therapeutic Activities, Therapeutic Exercises, Wheelchair Management Next Visit Focus/Plan Next Note Type Treatment Note Next Visit Plan Next tx: Alternate Shuttle recovery and sit/stander. *Shuttle Recovery next POC: Continue UE and core strengthening, LE PROM and manual stretching. Transfers, mobility, LE ROM
--- NOTE | 2023-02-10 12:45 | PT.OTN ---
Current Diagnoses Paraplegia, unspecified (02/10/23) Other specified personal risk factors, not elsewhere classified (02/10/23) Other specified postprocedural states (02/10/23) Physical Therapy Treatment Note PT-OP-A Visit Information Start: 03/08/22 17:00 Freq: Status: Active Protocol: Document 02/10/23 12:02 SP (Rec: 02/10/23 12:51 SP [id number]) Out-Patient Physical Therapy Visit Information Visit Information Visit Type Treatment Note Visit Start Time 12:02 Visit Stop Time 12:45 Total Visit Minutes 43 Visit Number 84 Number of BOTTLE BLOWING MACHINE TENDER Visits 1 Evaluation Information Evaluation Date 03/08/22 PT-OP-B Current Condition Start: 03/08/22 17:00 Freq: Status: Active Protocol: Document 03/08/22 11:15 DCW (Rec: 03/08/22 17:11 DCW [id number]) Current Condition History of Current Condition Onset Date 12/16/21 Current Complaints Paraplegia History of Current Condition Pt is a 71 year old male with a very unfortunate medical history. Pt was hiking [place] on 12/16/21 with a friend, finished up, drive back to his friend's home to drop him off, and noticed his left leg was collapsing. By the time pt drove home, both legs were giving out and numb. Pt was suddenly paralized from the waist down, was taken to the ED, and was flown to [facility] on 12/17/21. The following day, he underwent a laminectomy to relieve pressure from the thoracic epidural hematoma which had developed following his hike, which was pressing on his spinal cord. Following surgery , pt was in recovery for a week and was then transfered to rehab for 20 days, when he was finally discharged home in a wheelchair on 01/19/22. Pt reports his surgeon informed him that it is a possibility that he gets some return of nerve function. Has experienced some changes in his right LE, but has no motor function at this time from ~ T10 down. Minimal sensory return on right side, none on left. Pt has been anxious to get in to therapy and do everything he can to help return to function. Pt's , who attended his evaluation, notes that she has been doing a lot of PROM in his legs at night to keep everything moving. Pt can feel some stretching during PROM in his right leg. Pt has additionally already started occupational therapy, and has been practicing some seated stabilization. Pt transfers with a slide board, but notes it is difficult to do into his car, because he has to transfer upward at an incline. Treatment Goals Patient/Caregiver Goals I will do anything possible to get out of this wheelchair. My neurologist told me he has seen people recover from this , so I am not giving up hope. PT-OP-C Subjective Start: 03/08/22 17:00 Freq: Status: Active Protocol: Document 02/10/23 12:02 SP (Rec: 02/10/23 12:51 SP [id number]) OP-PT Subjective Patient Comments Patient Comments Pt reports is interested in getting a supported stander for home to give more time standing posture and weight bearing. PT-OP-G Mobility & Gait Start: 03/08/22 17:00 Freq: Status: Active Protocol: Document 08/21/22 15:15 DCW (Rec: 08/21/22 15:38 DCW [id number]) OP Mobility Evaluation Transfers Bed to Chair Transfers Transfers using UE Wheelchair Management Type of Wheelchair Manual w/c PT-OP-H Neuro Start: 03/08/22 17:00 Freq: Status: Active Protocol: Document 08/21/22 15:15 DCW (Rec: 08/21/22 15:38 DCW [id number]) Sensation Evaluation Gross Sensation Gross Sensation Left LE Impaired,Right LE Impaired,Trunk Impaired Sensation Description Paresthesia,Numbness,Tingling, Pins & [place],Burning Dermatome Impairments L1,L2,L3,L4,L5,S1,S2,S3,S4-5 Location Details Right Leg Light Touch Impaired Sharp/Dull Impaired Deep Pressure Impaired Hot/Cold Absent Protective Sensation Absent Proprioception (Position) Impaired Kinesthesia (Movement) Impaired Two-Point Discrimination Absent Tactile Localization Impaired Stereognosis Impaired Left Leg Light Touch Absent Sharp/Dull Absent Deep Pressure Impaired Hot/Cold Absent Protective Sensation Absent Proprioception (Position) Absent Kinesthesia (Movement) Impaired Two-Point Discrimination Absent Tactile Localization Absent Stereognosis Absent Deep Tendon Reflex & Clonus Assessment Deep Tendon Reflex Right Achilles Deep Tendon Reflex 1+ Diminished Right Patellar Deep Tendon Reflex 2+ Normal Left Achilles Deep Tendon Reflex 1+ Diminished Left Patellar Deep Tendon Reflex 0 Absent Muscle Tone Tone Assessment Right Lower Extremity Flexor Tone Description Moderate Hypertonicity Extensor Tone Description Moderate Hypertonicity Left Lower Extremity Flexor Tone Description Moderate Hypertonicity Extensor Tone Description Moderate Hypertonicity PT-OP-J Posture/Palpation/Skin Start: 03/08/22 17:00 Freq: Status: Active Protocol: Document 08/21/22 15:15 DCW (Rec: 08/21/22 15:38 DCW [id number]) Posture Evaluation Comments Posture Comments Significant improvement with core control, able to resist moderate sternal push and self -correct back to sitting position with no LOB. PT-OP-M Strength Start: 08/21/22 15:38 Freq: Status: Active Protocol: Document 08/21/22 15:15 DCW (Rec: 08/21/22 15:40 DCW [id number]) Hip Strength Hip Manual Muscle Testing Right Extension (S1) 2- Poor- Adduction 2- Poor- Left Extension (S1) 1 Trace Adduction 0 Zero Knee Strength Knee Manual Muscle Testing Right Flexion (S2) 1 Trace Extension (L3) 1 Trace Left Flexion (S2) 1 Trace Extension (L3) 0 Zero PT-OP-Q Treatments Start: 03/08/22 17:00 Freq: Status: Active Protocol: Document 02/10/23 12:02 SP (Rec: 02/10/23 12:51 SP [id number]) Cardio Equipment Recumbent Elliptical (Biodex) Duration (Minutes) 10 Resistance 6 Seat Position 10- 481 steps Other w/c<->Biodex using UEs ( lateral scoot), GB & dycem, Mod Ax1 Gym Equipment Shuttle Recovery Bilateral Squats Details without and with BUE assist on thighs LE ext Resistance 12# unassisted, 50# assisted Reps/Time Slight movements when unassisted, assisted back-> eccentric lowering Therapeutic Exercises Other Exercises quadruped child's pose Other Exercise Name quadruped child's pose and sit back stretching Reps/Minutes 2 min Comments cued reach UEs out front quadruped Other Exercise Name modified BUE push ups, pt self heavy support BUEs Resistance CGA Reps/Minutes 5x2 sets Comments good scap/ UE work Therapeutic Activity Therapeutic Activity tall kneel Name 12 box, blue foam roller under ankles Reps/Minutes hold 3 min (therapist assist box mgt) Comments Min A as reps to come to tall kneeling, good hip and trunk ext. CGA for safety maintain tall kneel. squat/lateral scoot transfer Name w/c<> biodex, leg press Reps/Minutes x4 Comments Mod/Max today A throughout gait belt, while support anterior knees to support extension. Cues to patient small pacing transition over/ back w/ core and UEs. supine>prone>quadruped Name Mod into quadruped/ Min quad to SL, heavy pt BUE support Reps/Minutes x1 Comments upper trunk support to allow UEs to get under trunk and good UE lift into quadruped then only CGA cues for chest lift serratus press support, support/lower abdomen, good feedback low back and hip stretching PT-OP-T Assessment and Plan Start: 03/08/22 17:00 Freq: Status: Active Protocol: Document 02/10/23 12:02 SP (Rec: 02/10/23 12:51 SP [id number]) Physical Therapy Assessment Goals Three Impairment Pt does not have any motor function throughout bilateral LEs Short Term Goal (STG) Pt to demonstrate 1/5 trace motor contraction in at least one quad in order to begin focus on LE mobility if neural functional return begins. STG Duration Met Chcf Goal (LTG) Pt to demonstrate right quad strength to at least 2/5, demonstrating movement into ROM in an antigravity position LTG Duration 02/16/23 - improving Two Impairment Pt struggles to perform slideboard car transfer due to upward tilt Manager Winter Goal (LTG) Pt to demonstrate car transfer SBA using slideboard. 07/30/22: progressing: provides support for trunk stability while pt completes transfer self using slidboard and use over head doorframe handles and car door. has to place/remove slide board. Mod A uphill onto biodex, CG/ MIn A descend off biodex use slideboard. LTG Duration Met One Impairment Pt does not have an appropriate home exercise program Short Term Goal (STG) Pt to be independent and compliant with an appropriate HEP 07/30/22: progressing: resisted tricep ext, OH raises in w/c, supine HABD, added scaption OH B #2. STG Duration 01/20/23 Progressing Assessment Summary Assessment Pt improved more controlled lateral transfers Min A, increased extensor tone in BLEs when reposiitoning onto biodex peddles. Min A for R sidelying to quadruped. He was able to maintain quadruped self and performed modified UE pushups on knees. Good response to tall upright trunk sitting back on his heels, CGA with light contact UEs on box for self stability this stretching feels so good on by back and legs. Pt reports is considering purchasing a stander for home. Physical Therapy Plan Frequency and Duration Frequency of Treatment 2x/Week Plan of Care Start Date 11/18/22 Plan of Care End Date 02/16/23 Therapeutic Interventions Therapeutic Interventions Aquatic Therapy,Balance Training,Coordination Training ,Gait Training,Home Exercise Program,Manual Therapy, Neuromuscular Re-education, Orthotic/Prosthetic Management ,Patient/Caregiver Education, Self-Care/Home Management, Sensory Integration,Soft Tissue Mobilization, Therapeutic Activities, Therapeutic Exercises, Wheelchair Management Next Visit Focus/Plan Next Note Type Progress Note Next Visit Plan Update POC 02/13 Next tx: Alternate Shuttle recovery and sit/stander. *Shuttle Recovery next POC: Continue UE and core strengthening, LE PROM and manual stretching. Transfers, mobility, LE ROM
--- NOTE | 2023-02-13 13:39 | PT.OTN ---
Current Diagnoses Paraplegia, unspecified (02/13/23) Other specified personal risk factors, not elsewhere classified (02/13/23) Other specified postprocedural states (02/13/23) Physical Therapy Treatment Note PT-OP-A Visit Information Start: 03/08/22 17:00 Freq: Status: Active Protocol: Document 02/13/23 12:50 DCW (Rec: 02/13/23 13:38 DCW [id number]) Out-Patient Physical Therapy Visit Information Visit Information Visit Type Progress Note Visit Start Time 12:50 Visit Stop Time 13:30 Total Visit Minutes 40 Visit Number 85 Number of FOOD PROCESSING CHEMIST Visits 0 Evaluation Information Evaluation Date 03/08/22 PT-OP-B Current Condition Start: 03/08/22 17:00 Freq: Status: Active Protocol: Document 03/08/22 11:15 DCW (Rec: 03/08/22 17:11 DCW [id number]) Current Condition History of Current Condition Onset Date 12/16/21 Current Complaints Paraplegia History of Current Condition Pt is a 71 year old male with a very unfortunate medical history. Pt was hiking [place] on 12/16/21 with a friend, finished up, drive back to his friend's home to drop him off, and noticed his left leg was collapsing. By the time pt drove home, both legs were giving out and numb. Pt was suddenly paralized from the waist down, was taken to the ED, and was flown to [facility] on 12/17/21. The following day, he underwent a laminectomy to relieve pressure from the thoracic epidural hematoma which had developed following his hike, which was pressing on his spinal cord. Following surgery , pt was in recovery for a week and was then transfered to rehab for 20 days, when he was finally discharged home in a wheelchair on 01/19/22. Pt reports his surgeon informed him that it is a possibility that he gets some return of nerve function. Has experienced some changes in his right LE, but has no motor function at this time from ~ T10 down. Minimal sensory return on right side, none on left. Pt has been anxious to get in to therapy and do everything he can to help return to function. Pt's , who attended his evaluation, notes that she has been doing a lot of PROM in his legs at night to keep everything moving. Pt can feel some stretching during PROM in his right leg. Pt has additionally already started occupational therapy, and has been practicing some seated stabilization. Pt transfers with a slide board, but notes it is difficult to do into his car, because he has to transfer upward at an incline. Treatment Goals Patient/Caregiver Goals I will do anything possible to get out of this wheelchair. My neurologist told me he has seen people recover from this , so I am not giving up hope. PT-OP-C Subjective Start: 03/08/22 17:00 Freq: Status: Active Protocol: Document 02/13/23 12:50 DCW (Rec: 02/13/23 13:39 DCW [id number]) OP-PT Subjective Patient Comments Patient Comments Just like when I used to climb mountains, just one foot in front of the other, see where this takes me. Patient Reported Progress Improving PT-OP-G Mobility & Gait Start: 03/08/22 17:00 Freq: Status: Active Protocol: Document 02/13/23 12:50 DCW (Rec: 02/13/23 13:22 DCW [id number]) OP Mobility Evaluation Transfers Bed to Chair Transfers Transfers using UE Car Transfers uses slide board, stabilizes front to back and prevent slide down board Wheelchair Management Type of Wheelchair Manual w/c PT-OP-H Neuro Start: 03/08/22 17:00 Freq: Status: Active Protocol: Document 02/13/23 12:50 DCW (Rec: 02/13/23 13:22 DCW [id number]) Sensation Evaluation Gross Sensation Gross Sensation Left LE Impaired,Right LE Impaired,Trunk Impaired Sensation Description Paresthesia,Numbness,Tingling, Pins & [place],Burning Dermatome Impairments L1,L2,L3,L4,L5,S1,S2,S3,S4-5 Location Details Right Leg Light Touch Impaired Sharp/Dull Impaired Deep Pressure Intact/Normal Hot/Cold Absent Protective Sensation Absent Proprioception (Position) Impaired Kinesthesia (Movement) Impaired Two-Point Discrimination Impaired Tactile Localization Impaired Stereognosis Impaired Left Leg Light Touch Absent Sharp/Dull Absent Deep Pressure Absent Hot/Cold Impaired Protective Sensation Absent Proprioception (Position) Absent Kinesthesia (Movement) Impaired Two-Point Discrimination Absent Tactile Localization Absent Stereognosis Absent Deep Tendon Reflex & Clonus Assessment Deep Tendon Reflex Right Achilles Deep Tendon Reflex 1+ Diminished Right Patellar Deep Tendon Reflex 2+ Normal Left Achilles Deep Tendon Reflex 1+ Diminished Left Patellar Deep Tendon Reflex 0 Absent Muscle Tone Tone Assessment Right Lower Extremity Flexor Tone Description Moderate Hypertonicity Extensor Tone Description Moderate Hypertonicity Left Lower Extremity Flexor Tone Description Moderate Hypertonicity Extensor Tone Description Moderate Hypertonicity PT-OP-J Posture/Palpation/Skin Start: 03/08/22 17:00 Freq: Status: Active Protocol: Document 02/13/23 12:50 DCW (Rec: 02/13/23 13:22 DCW [id number]) Posture Evaluation Comments Posture Comments Sitting EOB with good core control and no instability. Recovers from most directional pushing, although eventually LEs went into extension spasm and pt required assist x1 to return to sitting. PT-OP-M Strength Start: 08/21/22 15:38 Freq: Status: Active Protocol: Document 02/13/23 12:50 DCW (Rec: 02/13/23 13:22 DCW [id number]) Hip Strength Hip Manual Muscle Testing Right Extension (S1) 2- Poor- Adduction 2- Poor- Left Extension (S1) 1 Trace Adduction 0 Zero Knee Strength Knee Manual Muscle Testing Right Flexion (S2) 1 Trace Extension (L3) 1 Trace Left Flexion (S2) 1 Trace Extension (L3) 1 Trace Ankle/Foot Strength Ankle and Foot Manual Muscle Testing Right Plantarflexion (S1) 1 Trace Left Plantarflexion (S1) 1 Trace PT-OP-Q Treatments Start: 03/08/22 17:00 Freq: Status: Active Protocol: Document 02/10/23 12:02 SP (Rec: 02/10/23 12:51 SP [id number]) Cardio Equipment Recumbent Elliptical (Biodex) Duration (Minutes) 10 Resistance 6 Seat Position 10- 481 steps Other w/c<->Biodex using UEs ( lateral scoot), GB & dycem, Mod Ax1 Gym Equipment Shuttle Recovery Bilateral Squats Details without and with BUE assist on thighs LE ext Resistance 12# unassisted, 50# assisted Reps/Time Slight movements when unassisted, assisted back-> eccentric lowering Therapeutic Exercises Other Exercises quadruped child's pose Other Exercise Name quadruped child's pose and sit back stretching Reps/Minutes 2 min Comments cued reach UEs out front quadruped Other Exercise Name modified BUE push ups, pt self heavy support BUEs Resistance CGA Reps/Minutes 5x2 sets Comments good scap/ UE work Therapeutic Activity Therapeutic Activity tall kneel Name 12 box, blue foam roller under ankles Reps/Minutes hold 3 min (therapist assist box mgt) Comments Min A as reps to come to tall kneeling, good hip and trunk ext. CGA for safety maintain tall kneel. squat/lateral scoot transfer Name w/c<> biodex, leg press Reps/Minutes x4 Comments Mod/Max today A throughout gait belt, while support anterior knees to support extension. Cues to patient small pacing transition over/ back w/ core and UEs. supine>prone>quadruped Name Mod into quadruped/ Min quad to SL, heavy pt BUE support Reps/Minutes x1 Comments upper trunk support to allow UEs to get under trunk and good UE lift into quadruped then only CGA cues for chest lift serratus press support, support/lower abdomen, good feedback low back and hip stretching PT-OP-T Assessment and Plan Start: 03/08/22 17:00 Freq: Status: Active Protocol: Document 02/13/23 12:50 DCW (Rec: 02/13/23 13:38 DCW [id number]) Physical Therapy Assessment Goals Three Impairment Pt does not have any motor function throughout bilateral LEs Short Term Goal (STG) Pt to demonstrate 1/5 trace motor contraction in at least one quad in order to begin focus on LE mobility if neural functional return begins. STG Duration Met Jail Goal (LTG) Pt to demonstrate right quad strength to at least 2/5, demonstrating movement into ROM in an antigravity position LTG Duration 05/14/23 - improving One Impairment Pt does not have an appropriate home exercise program Short Term Goal (STG) Pt to be independent and compliant with an appropriate HEP 07/30/22: progressing: resisted tricep ext, OH raises in w/c, supine HABD, added scaption OH B #2. STG Duration 04/15/23 Progressing Assessment Summary Assessment Pt shows some mild improvements in multiple areas , but similar function in the majority of testing today. Some slight improvements finally in left sensation, able to sense cold on left leg . Continues to improve sensation in core/thoracic myotomes. Right leg now able to sense difference between light tough and deep pressure. Slight improvements in right two-point discrimination. Should benefit from continued therapy focusing on sitting and standing tolerance, core and leg strength. Physical Therapy Plan Frequency and Duration Frequency of Treatment 2x/Week Plan of Care Start Date 02/13/23 Plan of Care End Date 05/14/23 Therapeutic Interventions Therapeutic Interventions Aquatic Therapy,Balance Training,Coordination Training ,Gait Training,Home Exercise Program,Manual Therapy, Neuromuscular Re-education, Orthotic/Prosthetic Management ,Patient/Caregiver Education, Self-Care/Home Management, Sensory Integration,Soft Tissue Mobilization, Therapeutic Activities, Therapeutic Exercises, Wheelchair Management Next Visit Focus/Plan Next Note Type Treatment Note Next Visit Plan Update POC 02/13 Next tx: Alternate Shuttle recovery and sit/stander. *Stander next POC: Continue UE and core strengthening, LE PROM and manual stretching. Transfers, mobility, LE ROM
--- NOTE | 2023-02-13 13:39 | PT.OPPOC ---
Physical, Occupational & Speech Therapy At [facility] Current Diagnoses Paraplegia, unspecified (02/13/23) Other specified personal risk factors, not elsewhere classified (02/13/23) Other specified postprocedural states (02/13/23) Visit Care Team Role Provider Type Octavio Yates MD Family Provider Physician Primary Care Provider Specialty: Family Practice Address: [address] [place] [address], [id number] Email: [email or web address] Charleen Arias PA-C Attending Provider Advanced Student Financial Aid Manager Referring Provider Specialty: Medical Address: [address] [place] [address], [address] Email: [email or web address] Plan Of Care PT-OP-T Assessment and Plan Start: 03/08/22 17:00 Freq: Status: Active Protocol: Document 02/13/23 12:50 DCW (Rec: 02/13/23 13:38 DCW [id number]) Physical Therapy Assessment Goals Three Impairment Pt does not have any motor function throughout bilateral LEs Short Term Goal (STG) Pt to demonstrate 1/5 trace motor contraction in at least one quad in order to begin focus on LE mobility if neural functional return begins. STG Duration Met Skilled Nursing Goal (LTG) Pt to demonstrate right quad strength to at least 2/5, demonstrating movement into ROM in an antigravity position LTG Duration 05/14/23 - improving One Impairment Pt does not have an appropriate home exercise program Short Term Goal (STG) Pt to be independent and compliant with an appropriate HEP 07/30/22: progressing: resisted tricep ext, OH raises in w/c, supine HABD, added scaption OH B #2. STG Duration 04/15/23 Progressing Assessment Summary Assessment Pt shows some mild improvements in multiple areas , but similar function in the majority of testing today. Some slight improvements finally in left sensation, able to sense cold on left leg . Continues to improve sensation in core/thoracic myotomes. Right leg now able to sense difference between light tough and deep pressure. Slight improvements in right two-point discrimination. Should benefit from continued therapy focusing on sitting and standing tolerance, core and leg strength. Physical Therapy Plan Frequency and Duration Frequency of Treatment 2x/Week Plan of Care Start Date 02/13/23 Plan of Care End Date 05/14/23 Therapeutic Interventions Therapeutic Interventions Aquatic Therapy,Balance Training,Coordination Training ,Gait Training,Home Exercise Program,Manual Therapy, Neuromuscular Re-education, Orthotic/Prosthetic Management ,Patient/Caregiver Education, Self-Care/Home Management, Sensory Integration,Soft Tissue Mobilization, Therapeutic Activities, Therapeutic Exercises, Wheelchair Management Next Visit Focus/Plan Next Note Type Treatment Note Next Visit Plan Update POC 02/13 Next tx: Alternate Shuttle recovery and sit/stander. *Stander next POC: Continue UE and core strengthening, LE PROM and manual stretching. Transfers, mobility, LE ROM Plan of Care Dates Plan of Care Start Date 02/13/23 Plan of Care End Date 05/14/23 Electronically Signed by: Jean Ruggiero, PT 02/13/23 6800 If you are in agreement with this Plan of Care, please return a signed and dated copy. I have reviewed this Plan of Care and certify that the skilled therapy services above are required to meet the patient?s needs. Physician Signature Date Printed Name and Credentials Clinical Instructor Signature Printed Name and Credentials
--- NOTE | 2023-02-18 14:15 | PT.OTN ---
Current Diagnoses Paraplegia, unspecified (02/18/23) Other specified personal risk factors, not elsewhere classified (02/18/23) Other specified postprocedural states (02/18/23) Physical Therapy Treatment Note PT-OP-A Visit Information Start: 03/08/22 17:00 Freq: Status: Active Protocol: Document 02/18/23 13:36 SP (Rec: 02/18/23 14:23 SP [id number]) Out-Patient Physical Therapy Visit Information Visit Information Visit Type Treatment Note Visit Start Time 13:36 Visit Stop Time 14:15 Total Visit Minutes 39 Visit Number 86 Number of RACING SECRETARY Visits 1 PT-OP-B Current Condition Start: 03/08/22 17:00 Freq: Status: Active Protocol: Document 03/08/22 11:15 DCW (Rec: 03/08/22 17:11 DCW [id number]) Current Condition History of Current Condition Onset Date 12/16/21 Current Complaints Paraplegia History of Current Condition Pt is a 71 year old male with a very unfortunate medical history. Pt was hiking [place] on 12/16/21 with a friend, finished up, drive back to his friend's home to drop him off, and noticed his left leg was collapsing. By the time pt drove home, both legs were giving out and numb. Pt was suddenly paralized from the waist down, was taken to the ED, and was flown to [facility] on 12/17/21. The following day, he underwent a laminectomy to relieve pressure from the thoracic epidural hematoma which had developed following his hike, which was pressing on his spinal cord. Following surgery , pt was in recovery for a week and was then transfered to rehab for 20 days, when he was finally discharged home in a wheelchair on 01/19/22. Pt reports his surgeon informed him that it is a possibility that he gets some return of nerve function. Has experienced some changes in his right LE, but has no motor function at this time from ~ T10 down. Minimal sensory return on right side, none on left. Pt has been anxious to get in to therapy and do everything he can to help return to function. Pt's , who attended his evaluation, notes that she has been doing a lot of PROM in his legs at night to keep everything moving. Pt can feel some stretching during PROM in his right leg. Pt has additionally already started occupational therapy, and has been practicing some seated stabilization. Pt transfers with a slide board, but notes it is difficult to do into his car, because he has to transfer upward at an incline. Treatment Goals Patient/Caregiver Goals I will do anything possible to get out of this wheelchair. My neurologist told me he has seen people recover from this , so I am not giving up hope. PT-OP-C Subjective Start: 03/08/22 17:00 Freq: Status: Active Protocol: Document 02/18/23 13:36 SP (Rec: 02/18/23 14:23 SP [id number]) OP-PT Subjective Patient Comments Patient Comments Pt reported would like to trial other standing frames before deciding on one for home. PT-OP-G Mobility & Gait Start: 03/08/22 17:00 Freq: Status: Active Protocol: Document 02/13/23 12:50 DCW (Rec: 02/13/23 13:22 DCW [id number]) OP Mobility Evaluation Transfers Bed to Chair Transfers Transfers using UE Car Transfers uses slide board, stabilizes front to back and prevent slide down board Wheelchair Management Type of Wheelchair Manual w/c PT-OP-H Neuro Start: 03/08/22 17:00 Freq: Status: Active Protocol: Document 02/13/23 12:50 DCW (Rec: 02/13/23 13:22 DCW [id number]) Sensation Evaluation Gross Sensation Gross Sensation Left LE Impaired,Right LE Impaired,Trunk Impaired Sensation Description Paresthesia,Numbness,Tingling, P[place] & [place],Burning Dermatome Impairments L1,L2,L3,L4,L5,S1,S2,S3,S4-5 Location Details Right Leg Light Touch Impaired Sharp/Dull Impaired Deep Pressure Intact/Normal Hot/Cold Absent Protective Sensation Absent Proprioception (Position) Impaired Kinesthesia (Movement) Impaired Two-Point Discrimination Impaired Tactile Localization Impaired Stereognosis Impaired Left Leg Light Touch Absent Sharp/Dull Absent Deep Pressure Absent Hot/Cold Impaired Protective Sensation Absent Proprioception (Position) Absent Kinesthesia (Movement) Impaired Two-Point Discrimination Absent Tactile Localization Absent Stereognosis Absent Deep Tendon Reflex & Clonus Assessment Deep Tendon Reflex Right Achilles Deep Tendon Reflex 1+ Diminished Right Patellar Deep Tendon Reflex 2+ Normal Left Achilles Deep Tendon Reflex 1+ Diminished Left Patellar Deep Tendon Reflex 0 Absent Muscle Tone Tone Assessment Right Lower Extremity Flexor Tone Description Moderate Hypertonicity Extensor Tone Description Moderate Hypertonicity Left Lower Extremity Flexor Tone Description Moderate Hypertonicity Extensor Tone Description Moderate Hypertonicity PT-OP-J Posture/Palpation/Skin Start: 03/08/22 17:00 Freq: Status: Active Protocol: Document 02/13/23 12:50 DCW (Rec: 02/13/23 13:22 DCW [id number]) Posture Evaluation Comments Posture Comments Sitting EOB with good core control and no instability. Recovers from most directional pushing, although eventually LEs went into extension spasm and pt required assist x1 to return to sitting. PT-OP-M Strength Start: 08/21/22 15:38 Freq: Status: Active Protocol: Document 02/13/23 12:50 DCW (Rec: 02/13/23 13:22 DCW [id number]) Hip Strength Hip Manual Muscle Testing Right Extension (S1) 2- Poor- Adduction 2- Poor- Left Extension (S1) 1 Trace Adduction 0 Zero Knee Strength Knee Manual Muscle Testing Right Flexion (S2) 1 Trace Extension (L3) 1 Trace Left Flexion (S2) 1 Trace Extension (L3) 1 Trace Ankle/Foot Strength Ankle and Foot Manual Muscle Testing Right Plantarflexion (S1) 1 Trace Left Plantarflexion (S1) 1 Trace PT-OP-Q Treatments Start: 03/08/22 17:00 Freq: Status: Active Protocol: Document 02/18/23 13:36 SP (Rec: 02/18/23 14:23 SP [id number]) Cardio Equipment Recumbent Stepper (Sci-Fit) Duration (Minutes) 10 Resistance 5 (biodex unavailable) Seat Position 12>10 Other lateral scoot, support from behind 02/18/23 Min/od A Therapeutic Activity Therapeutic Activity sit to stander Name Long 1st hole strap and longest lrg looped strap both on lower hook Reps/Minutes 2 stands Comments in //bars, 2 person (1 posterior pelvic/low back support, 2nd person stander control) Noted quad and gluteal firing with wt shifting forward/back/ lateral with BUE support on standing frame bars. Min cues for elongated posturing for TS ext. Improved decreased RLE flexor tone, ascend into standing with only 3 brief pauses to aclimate to flexor tone into LE extension responses. Used scale under feet to determine WB through legs. Zeroed out with feet on scale sitting 33.4 lbs, approx additional 100 lbs added in standing. [ End ] squat/lateral scoot transfer Name w/c<> scifit Reps/Minutes x1 res Comments Min/Mod today A throughout gait belt, support from behind on/off scifit. Cues to patient small pacing transition over/back w/ core and UEs. PT-OP-T Assessment and Plan Start: 03/08/22 17:00 Freq: Status: Active Protocol: Document 02/18/23 13:36 SP (Rec: 02/18/23 14:23 SP [id number]) Physical Therapy Assessment Goals Three Impairment Pt does not have any motor function throughout bilateral LEs Short Term Goal (STG) Pt to demonstrate 1/5 trace motor contraction in at least one quad in order to begin focus on LE mobility if neural functional return begins. STG Duration Met Documentation Coordinator Goal (LTG) Pt to demonstrate right quad strength to at least 2/5, demonstrating movement into ROM in an antigravity position LTG Duration 05/14/23 - improving One Impairment Pt does not have an appropriate home exercise program Short Term Goal (STG) Pt to be independent and compliant with an appropriate HEP 07/30/22: progressing: resisted tricep ext, OH raises in w/c, supine HABD, added scaption OH B #2. STG Duration 04/15/23 Progressing Assessment Summary Assessment Pt improved more full standing (maxed out standing frame upright positioning) with adjustments in strap positioning both together on front lower clasp. Pt did reposition hands from upright bar to //bars without communication with therapist prior and bumped bridge of his nose on front capped post causing small scrap and slight bleeding, controlled by wiping with towel and application of bandaid. Pt reported is just the tinnest scrape, feels fine and was good with just the bandaid, RACING SECRETARY applied on bridge of nose needed. RACING SECRETARY completed an incident report, notified supervisor litharge. Pt reported felt good and found more standing stretch with change in harness strap positioning. He stated gave hime more freedom to move upper trunk with use of UEs. Physical Therapy Plan Frequency and Duration Frequency of Treatment 2x/Week Plan of Care Start Date 02/13/23 Plan of Care End Date 05/14/23 Therapeutic Interventions Therapeutic Interventions Aquatic Therapy,Balance Training,Coordination Training ,Gait Training,Home Exercise Program,Manual Therapy, Neuromuscular Re-education, Orthotic/Prosthetic Management ,Patient/Caregiver Education, Self-Care/Home Management, Sensory Integration,Soft Tissue Mobilization, Therapeutic Activities, Therapeutic Exercises, Wheelchair Management Next Visit Focus/Plan Next Note Type Treatment Note Next Visit Plan Check in how bridge nose doing from bumping on stander during tx, review strap positioning in stander as today's tx. *Biodex next POC:Alternate Shuttle recovery and sit/stander. Continue UE and core strengthening, LE PROM and manual stretching. Transfers, mobility, LE ROM
--- NOTE | 2023-02-20 16:34 | PT.OTN ---
Current Diagnoses Paraplegia, unspecified (02/20/23) Other specified personal risk factors, not elsewhere classified (02/20/23) Other specified postprocedural states (02/20/23) Physical Therapy Treatment Note PT-OP-A Visit Information Start: 03/08/22 17:00 Freq: Status: Active Protocol: Document 02/20/23 15:47 DCW (Rec: 02/20/23 16:34 DCW [id number]) Out-Patient Physical Therapy Visit Information Visit Information Visit Type Treatment Note Visit Start Time 15:47 Visit Stop Time 16:30 Total Visit Minutes 43 Visit Number 87 Number of DIGITAL SALES EXECUTIVE Visits 0 Evaluation Information Evaluation Date 03/08/22 PT-OP-B Current Condition Start: 03/08/22 17:00 Freq: Status: Active Protocol: Document 03/08/22 11:15 DCW (Rec: 03/08/22 17:11 DCW [id number]) Current Condition History of Current Condition Onset Date 12/16/21 Current Complaints Paraplegia History of Current Condition Pt is a 71 year old male with a very unfortunate medical history. Pt was hiking [employer] on 12/16/21 with a friend, finished up, drive back to his friend's home to drop him off, and noticed his left leg was collapsing. By the time pt drove home, both legs were giving out and numb. Pt was suddenly paralized from the waist down, was taken to the ED, and was flown to [facility] on 12/17/21. The following day, he underwent a laminectomy to relieve pressure from the thoracic epidural hematoma which had developed following his hike, which was pressing on his spinal cord. Following surgery , pt was in recovery for a week and was then transfered to rehab for 20 days, when he was finally discharged home in a wheelchair on 01/19/22. Pt reports his surgeon informed him that it is a possibility that he gets some return of nerve function. Has experienced some changes in his right LE, but has no motor function at this time from ~ T10 down. Minimal sensory return on right side, none on left. Pt has been anxious to get in to therapy and do everything he can to help return to function. Pt's , who attended his evaluation, notes that she has been doing a lot of PROM in his legs at night to keep everything moving. Pt can feel some stretching during PROM in his right leg. Pt has additionally already started occupational therapy, and has been practicing some seated stabilization. Pt transfers with a slide board, but notes it is difficult to do into his car, because he has to transfer upward at an incline. Treatment Goals Patient/Caregiver Goals I will do anything possible to get out of this wheelchair. My neurologist told me he has seen people recover from this , so I am not giving up hope. PT-OP-C Subjective Start: 03/08/22 17:00 Freq: Status: Active Protocol: Document 02/20/23 15:47 DCW (Rec: 02/20/23 16:34 DCW [id number]) OP-PT Subjective Patient Comments Patient Comments Pt doing well today, no complaints. PT-OP-G Mobility & Gait Start: 03/08/22 17:00 Freq: Status: Active Protocol: Document 02/13/23 12:50 DCW (Rec: 02/13/23 13:22 DCW [id number]) OP Mobility Evaluation Transfers Bed to Chair Transfers Transfers using UE Car Transfers uses slide board, stabilizes front to back and prevent slide down board Wheelchair Management Type of Wheelchair Manual w/c PT-OP-H Neuro Start: 03/08/22 17:00 Freq: Status: Active Protocol: Document 02/13/23 12:50 DCW (Rec: 02/13/23 13:22 DCW [id number]) Sensation Evaluation Gross Sensation Gross Sensation Left LE Impaired,Right LE Impaired,Trunk Impaired Sensation Description Paresthesia,Numbness,Tingling, Pins & [place],Burning Dermatome Impairments L1,L2,L3,L4,L5,S1,S2,S3,S4-5 Location Details Right Leg Light Touch Impaired Sharp/Dull Impaired Deep Pressure Intact/Normal Hot/Cold Absent Protective Sensation Absent Proprioception (Position) Impaired Kinesthesia (Movement) Impaired Two-Point Discrimination Impaired Tactile Localization Impaired Stereognosis Impaired Left Leg Light Touch Absent Sharp/Dull Absent Deep Pressure Absent Hot/Cold Impaired Protective Sensation Absent Proprioception (Position) Absent Kinesthesia (Movement) Impaired Two-Point Discrimination Absent Tactile Localization Absent Stereognosis Absent Deep Tendon Reflex & Clonus Assessment Deep Tendon Reflex Right Achilles Deep Tendon Reflex 1+ Diminished Right Patellar Deep Tendon Reflex 2+ Normal Left Achilles Deep Tendon Reflex 1+ Diminished Left Patellar Deep Tendon Reflex 0 Absent Muscle Tone Tone Assessment Right Lower Extremity Flexor Tone Description Moderate Hypertonicity Extensor Tone Description Moderate Hypertonicity Left Lower Extremity Flexor Tone Description Moderate Hypertonicity Extensor Tone Description Moderate Hypertonicity PT-OP-J Posture/Palpation/Skin Start: 03/08/22 17:00 Freq: Status: Active Protocol: Document 02/13/23 12:50 DCW (Rec: 02/13/23 13:22 DCW [id number]) Posture Evaluation Comments Posture Comments Sitting EOB with good core control and no instability. Recovers from most directional pushing, although eventually LEs went into extension spasm and pt required assist x1 to return to sitting. PT-OP-M Strength Start: 08/21/22 15:38 Freq: Status: Active Protocol: Document 02/13/23 12:50 DCW (Rec: 02/13/23 13:22 DCW [id number]) Hip Strength Hip Manual Muscle Testing Right Extension (S1) 2- Poor- Adduction 2- Poor- Left Extension (S1) 1 Trace Adduction 0 Zero Knee Strength Knee Manual Muscle Testing Right Flexion (S2) 1 Trace Extension (L3) 1 Trace Left Flexion (S2) 1 Trace Extension (L3) 1 Trace Ankle/Foot Strength Ankle and Foot Manual Muscle Testing Right Plantarflexion (S1) 1 Trace Left Plantarflexion (S1) 1 Trace PT-OP-Q Treatments Start: 03/08/22 17:00 Freq: Status: Active Protocol: Document 02/20/23 15:47 DCW (Rec: 02/20/23 16:34 DCW [id number]) Cardio Equipment Recumbent Elliptical (Biodex) Duration (Minutes) 10 Resistance 6 Seat Position 10- 481 steps Other w/c<->Biodex using UEs ( lateral scoot), GB & dycem, Mod Ax1 Gym Equipment Shuttle Recovery Bilateral Squats Details without and with BUE assist on thighs LE ext Resistance 12# unassisted, 50# assisted Reps/Time Slight movements when unassisted, assisted back-> eccentric lowering Therapeutic Exercises Other Exercises Long-kneeling Other Exercise Name Long kneeling /c 12 step support Approximation Other Exercise Name Hip approximation in quad, therapist overpressure through hips quadruped child's pose Other Exercise Name quadruped child's pose and sit back stretching Reps/Minutes 2 min Comments cued reach UEs out front Therapeutic Activity Therapeutic Activity squat/lateral scoot transfer Name w/c<> Biodex, Leg press, mat Reps/Minutes x6 res Comments Min/Mod today A throughout gait belt, support from behind on/off scifit. Cues to patient small pacing transition over/back w/ core and UEs. PT-OP-T Assessment and Plan Start: 03/08/22 17:00 Freq: Status: Active Protocol: Document 02/20/23 15:47 DCW (Rec: 02/20/23 16:34 DCW [id number]) Physical Therapy Assessment Goals Three Impairment Pt does not have any motor function throughout bilateral LEs Short Term Goal (STG) Pt to demonstrate 1/5 trace motor contraction in at least one quad in order to begin focus on LE mobility if neural functional return begins. STG Duration Met Nanotechnology Engineering Technician Goal (LTG) Pt to demonstrate right quad strength to at least 2/5, demonstrating movement into ROM in an antigravity position LTG Duration 05/14/23 - improving One Impairment Pt does not have an appropriate home exercise program Short Term Goal (STG) Pt to be independent and compliant with an appropriate HEP 07/30/22: progressing: resisted tricep ext, OH raises in w/c, supine HABD, added scaption OH B #2. STG Duration 04/15/23 Progressing Assessment Summary Assessment Increased tone throughout LEs today, increased difficulty with eccentric control on leg press. Did well with long kneeling and approximation on mat table. Physical Therapy Plan Frequency and Duration Frequency of Treatment 2x/Week Plan of Care Start Date 02/13/23 Plan of Care End Date 05/14/23 Therapeutic Interventions Therapeutic Interventions Aquatic Therapy,Balance Training,Coordination Training ,Gait Training,Home Exercise Program,Manual Therapy, Neuromuscular Re-education, Orthotic/Prosthetic Management ,Patient/Caregiver Education, Self-Care/Home Management, Sensory Integration,Soft Tissue Mobilization, Therapeutic Activities, Therapeutic Exercises, Wheelchair Management Next Visit Focus/Plan Next Note Type Treatment Note Next Visit Plan review strap positioning in stander as today's tx. *Stander next POC:Alternate Shuttle recovery and sit/stander. Continue UE and core strengthening, LE PROM and manual stretching. Transfers, mobility, LE ROM
--- NOTE | 2023-02-25 16:34 | PT.OTN ---
Current Diagnoses Paraplegia, unspecified (02/25/23) Other specified personal risk factors, not elsewhere classified (02/25/23) Other specified postprocedural states (02/25/23) Physical Therapy Treatment Note PT-OP-A Visit Information Start: 03/08/22 17:00 Freq: Status: Active Protocol: Document 02/25/23 15:45 DCW (Rec: 02/25/23 16:34 DCW [id number]) Out-Patient Physical Therapy Visit Information Visit Information Visit Type Treatment Note Visit Start Time 15:45 Visit Stop Time 16:30 Total Visit Minutes 45 Visit Number 88 Number of [employer]OOFER Visits 0 Evaluation Information Evaluation Date 03/08/22 PT-OP-B Current Condition Start: 03/08/22 17:00 Freq: Status: Active Protocol: Document 03/08/22 11:15 DCW (Rec: 03/08/22 17:11 DCW [id number]) Current Condition History of Current Condition Onset Date 12/16/21 Current Complaints Paraplegia History of Current Condition Pt is a 71 year old male with a very unfortunate medical history. Pt was [place] [id number] 12/16/21 with a friend, finished up, drive back to his friend's home to drop him off, and noticed his left leg was collapsing. By the time pt drove home, both legs were giving out and numb. Pt was suddenly paralized from the waist down, was taken to the ED, and was flown to [facility] on 12/17/21. The following day, he underwent a laminectomy to relieve pressure from the thoracic epidural hematoma which had developed following his hike, which was pressing on his spinal cord. Following surgery , pt was in recovery for a week and was then transfered to rehab for 20 days, when he was finally discharged home in a wheelchair on 01/19/22. Pt reports his surgeon informed him that it is a possibility that he gets some return of nerve function. Has experienced some changes in his right LE, but has no motor function at this time from ~ T10 down. Minimal sensory return on right side, none on left. Pt has been anxious to get in to therapy and do everything he can to help return to function. Pt's , who attended his evaluation, notes that she has been doing a lot of PROM in his legs at night to keep everything moving. Pt can feel some stretching during PROM in his right leg. Pt has additionally already started occupational therapy, and has been practicing some seated stabilization. Pt transfers with a slide board, but notes it is difficult to do into his car, because he has to transfer upward at an incline. Treatment Goals Patient/Caregiver Goals I will do anything possible to get out of this wheelchair. My neurologist told me he has seen people recover from this , so I am not giving up hope. PT-OP-C Subjective Start: 03/08/22 17:00 Freq: Status: Active Protocol: Document 02/25/23 15:45 DCW (Rec: 02/25/23 16:34 DCW [id number]) OP-PT Subjective Patient Comments Patient Comments Pt feeling pretty stiff today. PT-OP-G Mobility & Gait Start: 03/08/22 17:00 Freq: Status: Active Protocol: Document 02/13/23 12:50 DCW (Rec: 02/13/23 13:22 DCW [id number]) OP Mobility Evaluation Transfers Bed to Chair Transfers Transfers using UE Car Transfers uses slide board, stabilizes front to back and prevent slide down board Wheelchair Management Type of Wheelchair Manual w/c PT-OP-H Neuro Start: 03/08/22 17:00 Freq: Status: Active Protocol: Document 02/13/23 12:50 DCW (Rec: 02/13/23 13:22 DCW [id number]) Sensation Evaluation Gross Sensation Gross Sensation Left LE Impaired,Right LE Impaired,Trunk Impaired Sensation Description Paresthesia,Numbness,Tingling, Pins & [place],Burning Dermatome Impairments L1,L2,L3,L4,L5,S1,S2,S3,S4-5 Location Details Right Leg Light Touch Impaired Sharp/Dull Impaired Deep Pressure Intact/Normal Hot/Cold Absent Protective Sensation Absent Proprioception (Position) Impaired Kinesthesia (Movement) Impaired Two-Point Discrimination Impaired Tactile Localization Impaired Stereognosis Impaired Left Leg Light Touch Absent Sharp/Dull Absent Deep Pressure Absent Hot/Cold Impaired Protective Sensation Absent Proprioception (Position) Absent Kinesthesia (Movement) Impaired Two-Point Discrimination Absent Tactile Localization Absent Stereognosis Absent Deep Tendon Reflex & Clonus Assessment Deep Tendon Reflex Right Achilles Deep Tendon Reflex 1+ Diminished Right Patellar Deep Tendon Reflex 2+ Normal Left Achilles Deep Tendon Reflex 1+ Diminished Left Patellar Deep Tendon Reflex 0 Absent Muscle Tone Tone Assessment Right Lower Extremity Flexor Tone Description Moderate Hypertonicity Extensor Tone Description Moderate Hypertonicity Left Lower Extremity Flexor Tone Description Moderate Hypertonicity Extensor Tone Description Moderate Hypertonicity PT-OP-J Posture/Palpation/Skin Start: 03/08/22 17:00 Freq: Status: Active Protocol: Document 02/13/23 12:50 DCW (Rec: 02/13/23 13:22 DCW [id number]) Posture Evaluation Comments Posture Comments Sitting EOB with good core control and no instability. Recovers from most directional pushing, although eventually LEs went into extension spasm and pt required assist x1 to return to sitting. PT-OP-M Strength Start: 08/21/22 15:38 Freq: Status: Active Protocol: Document 02/13/23 12:50 DCW (Rec: 02/13/23 13:22 DCW [id number]) Hip Strength Hip Manual Muscle Testing Right Extension (S1) 2- Poor- Adduction 2- Poor- Left Extension (S1) 1 Trace Adduction 0 Zero Knee Strength Knee Manual Muscle Testing Right Flexion (S2) 1 Trace Extension (L3) 1 Trace Left Flexion (S2) 1 Trace Extension (L3) 1 Trace Ankle/Foot Strength Ankle and Foot Manual Muscle Testing Right Plantarflexion (S1) 1 Trace Left Plantarflexion (S1) 1 Trace PT-OP-Q Treatments Start: 03/08/22 17:00 Freq: Status: Active Protocol: Document 02/25/23 15:45 DCW (Rec: 02/25/23 16:34 DCW [id number]) Cardio Equipment Recumbent Elliptical (Biodex) Duration (Minutes) 10 Resistance 6 Seat Position 10- 476 steps Other w/c<->Biodex using UEs ( lateral scoot), GB & dycem, Mod Ax1 Therapeutic Activity Therapeutic Activity sit to stander Name Long 1st hole strap and longest lrg looped strap both on lower hook Reps/Minutes 2 stands Comments in //bars, 2 person (1 posterior pelvic/low back support, 2nd person stander control) Noted quad and gluteal firing with wt shifting forward/back/ lateral with BUE support on standing frame bars. Min cues for elongated posturing for TS ext. Improved decreased RLE flexor tone, ascend into standing with only 3 brief pauses to aclimate to flexor tone into LE extension responses. Used scale under feet to determine WB through legs. Maxed out ~100 lbs in standing . [ End ] squat/lateral scoot transfer Name w/c <-> Biodex Reps/Minutes x2 reps Comments Min/Mod today A throughout gait belt, support from behind on/off scifit. Cues to patient small pacing transition over/back w/ core and UEs. PT-OP-T Assessment and Plan Start: 03/08/22 17:00 Freq: Status: Active Protocol: Document 02/25/23 15:45 DCW (Rec: 02/25/23 16:34 DCW [id number]) Physical Therapy Assessment Goals Three Impairment Pt does not have any motor function throughout bilateral LEs Short Term Goal (STG) Pt to demonstrate 1/5 trace motor contraction in at least one quad in order to begin focus on LE mobility if neural functional return begins. STG Duration Met Full Service Vending Driver Goal (LTG) Pt to demonstrate right quad strength to at least 2/5, demonstrating movement into ROM in an antigravity position LTG Duration 05/14/23 - improving One Impairment Pt does not have an appropriate home exercise program Short Term Goal (STG) Pt to be independent and compliant with an appropriate HEP 07/30/22: progressing: resisted tricep ext, OH raises in w/c, supine HABD, added scaption OH B #2. STG Duration 04/15/23 Progressing Assessment Summary Assessment Continues to do well with standing frame, able to extend himself upright with current sling set-up. Doing better with stabilization using UEs today. Physical Therapy Plan Frequency and Duration Frequency of Treatment 2x/Week Plan of Care Start Date 02/13/23 Plan of Care End Date 05/14/23 Therapeutic Interventions Therapeutic Interventions Aquatic Therapy,Balance Training,Coordination Training ,Gait Training,Home Exercise Program,Manual Therapy, Neuromuscular Re-education, Orthotic/Prosthetic Management ,Patient/Caregiver Education, Self-Care/Home Management, Sensory Integration,Soft Tissue Mobilization, Therapeutic Activities, Therapeutic Exercises, Wheelchair Management Next Visit Focus/Plan Next Note Type Treatment Note Next Visit Plan review strap positioning in stander as today's tx. *Leg Press next POC:Alternate Shuttle recovery and sit/stander. Continue UE and core strengthening, LE PROM and manual stretching. Transfers, mobility, LE ROM
--- NOTE | 2023-03-04 16:32 | PT.OTN ---
Current Diagnoses Paraplegia, unspecified (03/04/23) Other specified personal risk factors, not elsewhere classified (03/04/23) Other specified postprocedural states (03/04/23) Physical Therapy Treatment Note PT-OP-A Visit Information Start: 03/08/22 17:00 Freq: Status: Active Protocol: Document 03/04/23 15:48 DCW (Rec: 03/04/23 16:32 DCW [id number]) Out-Patient Physical Therapy Visit Information Visit Information Visit Type Treatment Note Visit Start Time 15:48 Visit Stop Time 16:30 Total Visit Minutes 42 Visit Number 89 Number of DAY LIGHT RELIEF OPERATOR Visits 0 Evaluation Information Evaluation Date 03/08/22 PT-OP-B Current Condition Start: 03/08/22 17:00 Freq: Status: Active Protocol: Document 03/08/22 11:15 DCW (Rec: 03/08/22 17:11 DCW [id number]) Current Condition History of Current Condition Onset Date 12/16/21 Current Complaints Paraplegia History of Current Condition Pt is a 71 year old male with a very unfortunate medical history. Pt was hiking [employer] on 12/16/21 with a friend, finished up, drive back to his friend's home to drop him off, and noticed his left leg was collapsing. By the time pt drove home, both legs were giving out and numb. Pt was suddenly paralized from the waist down, was taken to the ED, and was flown to [facility] on 12/17/21. The following day, he underwent a laminectomy to relieve pressure from the thoracic epidural hematoma which had developed following his hike, which was pressing on his spinal cord. Following surgery , pt was in recovery for a week and was then transfered to rehab for 20 days, when he was finally discharged home in a wheelchair on 01/19/22. Pt reports his surgeon informed him that it is a possibility that he gets some return of nerve function. Has experienced some changes in his right LE, but has no motor function at this time from ~ T10 down. Minimal sensory return on right side, none on left. Pt has been anxious to get in to therapy and do everything he can to help return to function. Pt's , who attended his evaluation, notes that she has been doing a lot of PROM in his legs at night to keep everything moving. Pt can feel some stretching during PROM in his right leg. Pt has additionally already started occupational therapy, and has been practicing some seated stabilization. Pt transfers with a slide board, but notes it is difficult to do into his car, because he has to transfer upward at an incline. Treatment Goals Patient/Caregiver Goals I will do anything possible to get out of this wheelchair. My neurologist told me he has seen people recover from this , so I am not giving up hope. PT-OP-C Subjective Start: 03/08/22 17:00 Freq: Status: Active Protocol: Document 03/04/23 15:48 DCW (Rec: 03/04/23 16:32 DCW [id number]) OP-PT Subjective Patient Comments Patient Comments Pt noting that his legs have still been very spastic PT-OP-G Mobility & Gait Start: 03/08/22 17:00 Freq: Status: Active Protocol: Document 02/13/23 12:50 DCW (Rec: 02/13/23 13:22 DCW [id number]) OP Mobility Evaluation Transfers Bed to Chair Transfers Transfers using UE Car Transfers uses slide board, stabilizes front to back and prevent slide down board Wheelchair Management Type of Wheelchair Manual w/c PT-OP-H Neuro Start: 03/08/22 17:00 Freq: Status: Active Protocol: Document 02/13/23 12:50 DCW (Rec: 02/13/23 13:22 DCW [id number]) Sensation Evaluation Gross Sensation Gross Sensation Left LE Impaired,Right LE Impaired,Trunk Impaired Sensation Description Paresthesia,Numbness,Tingling, Pins & [place],Burning Dermatome Impairments L1,L2,L3,L4,L5,S1,S2,S3,S4-5 Location Details Right Leg Light Touch Impaired Sharp/Dull Impaired Deep Pressure Intact/Normal Hot/Cold Absent Protective Sensation Absent Proprioception (Position) Impaired Kinesthesia (Movement) Impaired Two-Point Discrimination Impaired Tactile Localization Impaired Stereognosis Impaired Left Leg Light Touch Absent Sharp/Dull Absent Deep Pressure Absent Hot/Cold Impaired Protective Sensation Absent Proprioception (Position) Absent Kinesthesia (Movement) Impaired Two-Point Discrimination Absent Tactile Localization Absent Stereognosis Absent Deep Tendon Reflex & Clonus Assessment Deep Tendon Reflex Right Achilles Deep Tendon Reflex 1+ Diminished Right Patellar Deep Tendon Reflex 2+ Normal Left Achilles Deep Tendon Reflex 1+ Diminished Left Patellar Deep Tendon Reflex 0 Absent Muscle Tone Tone Assessment Right Lower Extremity Flexor Tone Description Moderate Hypertonicity Extensor Tone Description Moderate Hypertonicity Left Lower Extremity Flexor Tone Description Moderate Hypertonicity Extensor Tone Description Moderate Hypertonicity PT-OP-J Posture/Palpation/Skin Start: 03/08/22 17:00 Freq: Status: Active Protocol: Document 02/13/23 12:50 DCW (Rec: 02/13/23 13:22 DCW [id number]) Posture Evaluation Comments Posture Comments Sitting EOB with good core control and no instability. Recovers from most directional pushing, although eventually LEs went into extension spasm and pt required assist x1 to return to sitting. PT-OP-M Strength Start: 08/21/22 15:38 Freq: Status: Active Protocol: Document 02/13/23 12:50 DCW (Rec: 02/13/23 13:22 DCW [id number]) Hip Strength Hip Manual Muscle Testing Right Extension (S1) 2- Poor- Adduction 2- Poor- Left Extension (S1) 1 Trace Adduction 0 Zero Knee Strength Knee Manual Muscle Testing Right Flexion (S2) 1 Trace Extension (L3) 1 Trace Left Flexion (S2) 1 Trace Extension (L3) 1 Trace Ankle/Foot Strength Ankle and Foot Manual Muscle Testing Right Plantarflexion (S1) 1 Trace Left Plantarflexion (S1) 1 Trace PT-OP-Q Treatments Start: 03/08/22 17:00 Freq: Status: Active Protocol: Document 03/04/23 15:48 DCW (Rec: 03/04/23 16:32 DCW [id number]) Cardio Equipment Recumbent Elliptical (Biodex) Duration (Minutes) 10 Resistance 6 Seat Position 10- 458 steps Other w/c<->Biodex using UEs ( lateral scoot), GB & dycem, Mod Ax1 Gym Equipment Shuttle Recovery Bilateral Squats Details without and with BUE assist on thighs LE ext Resistance 12# unassisted, 50# assisted Reps/Time Slight movements when unassisted, assisted back-> eccentric lowering Therapeutic Exercises Supine Exercises Adductor Stretch Supine Exercise Name Fig 4 individual Resistance PROM tolerant range Equipment Used manual Comments cue breath work Hamstring Stretch Supine Exercise Name HS stretch Side bilateral Equipment Used wedge and 3 pillows under TS/ head DT excess kyphosis Reps/Minutes 30 Comments cued breath allow relax musculature Knee to Chest Supine Exercise Name Single KtC, Double KtC Side bilateral Resistance manual Equipment Used 3 pillows under CS/ TS ( excessive kyphosis) Therapeutic Activity Therapeutic Activity squat/lateral scoot transfer Name w/c<> Biodex, Leg press, mat Reps/Minutes x6 res Comments Min/Mod today A throughout gait belt, support from behind on/off scifit. Cues to patient small pacing transition over/back w/ core and UEs. PT-OP-T Assessment and Plan Start: 03/08/22 17:00 Freq: Status: Active Protocol: Document 03/04/23 15:48 DCW (Rec: 03/04/23 16:32 DCW [id number]) Physical Therapy Assessment Goals Three Impairment Pt does not have any motor function throughout bilateral LEs Short Term Goal (STG) Pt to demonstrate 1/5 trace motor contraction in at least one quad in order to begin focus on LE mobility if neural functional return begins. STG Duration Met Teleprinter Goal (LTG) Pt to demonstrate right quad strength to at least 2/5, demonstrating movement into ROM in an antigravity position LTG Duration 05/14/23 - improving One Impairment Pt does not have an appropriate home exercise program Short Term Goal (STG) Pt to be independent and compliant with an appropriate HEP 07/30/22: progressing: resisted tricep ext, OH raises in w/c, supine HABD, added scaption OH B #2. STG Duration 04/15/23 Progressing Assessment Summary Assessment Spent some time today with stretching pt out in supine due to recent increase in stiffness. Pt thankful, felt he was moving much more easily by end of session. Physical Therapy Plan Frequency and Duration Frequency of Treatment 2x/Week Plan of Care Start Date 02/13/23 Plan of Care End Date 05/14/23 Therapeutic Interventions Therapeutic Interventions Aquatic Therapy,Balance Training,Coordination Training ,Gait Training,Home Exercise Program,Manual Therapy, Neuromuscular Re-education, Orthotic/Prosthetic Management ,Patient/Caregiver Education, Self-Care/Home Management, Sensory Integration,Soft Tissue Mobilization, Therapeutic Activities, Therapeutic Exercises, Wheelchair Management Next Visit Focus/Plan Next Note Type Treatment Note Next Visit Plan review strap positioning in stander as today's tx. *Stander next POC:Alternate Shuttle recovery and sit/stander. Continue UE and core strengthening, LE PROM and manual stretching. Transfers, mobility, LE ROM
--- NOTE | 2023-03-06 16:25 | PT.OTN ---
Current Diagnoses Paraplegia, unspecified (03/06/23) Other specified personal risk factors, not elsewhere classified (03/06/23) Other specified postprocedural states (03/06/23) Physical Therapy Treatment Note PT-OP-A Visit Information Start: 03/08/22 17:00 Freq: Status: Active Protocol: Document 03/06/23 15:46 DCW (Rec: 03/06/23 16:25 DCW [id number]) Out-Patient Physical Therapy Visit Information Visit Information Visit Type Treatment Note Visit Start Time 15:46 Visit Stop Time 16:30 Total Visit Minutes 44 Visit Number 90 Number of VISUAL ARTS TEACHER Visits 0 Evaluation Information Evaluation Date 03/08/22 PT-OP-B Current Condition Start: 03/08/22 17:00 Freq: Status: Active Protocol: Document 03/08/22 11:15 DCW (Rec: 03/08/22 17:11 DCW [id number]) Current Condition History of Current Condition Onset Date 12/16/21 Current Complaints Paraplegia History of Current Condition Pt is a 71 year old male with a very unfortunate medical history. Pt was hiking [place] on 12/16/21 with a friend, finished up, drive back to his friend's home to drop him off, and noticed his left leg was collapsing. By the time pt drove home, both legs were giving out and numb. Pt was suddenly paralized from the waist down, was taken to the ED, and was flown to [facility] on 12/17/21. The following day, he underwent a laminectomy to relieve pressure from the thoracic epidural hematoma which had developed following his hike, which was pressing on his spinal cord. Following surgery , pt was in recovery for a week and was then transfered to rehab for 20 days, when he was finally discharged home in a wheelchair on 01/19/22. Pt reports his surgeon informed him that it is a possibility that he gets some return of nerve function. Has experienced some changes in his right LE, but has no motor function at this time from ~ T10 down. Minimal sensory return on right side, none on left. Pt has been anxious to get in to therapy and do everything he can to help return to function. Pt's , who attended his evaluation, notes that she has been doing a lot of PROM in his legs at night to keep everything moving. Pt can feel some stretching during PROM in his right leg. Pt has additionally already started occupational therapy, and has been practicing some seated stabilization. Pt transfers with a slide board, but notes it is difficult to do into his car, because he has to transfer upward at an incline. Treatment Goals Patient/Caregiver Goals I will do anything possible to get out of this wheelchair. My neurologist told me he has seen people recover from this , so I am not giving up hope. PT-OP-C Subjective Start: 03/08/22 17:00 Freq: Status: Active Protocol: Document 03/06/23 15:46 DCW (Rec: 03/06/23 16:25 DCW [id number]) OP-PT Subjective Patient Comments Patient Comments Pt reports he has restarted taking Baclofen at night, and is having much less spasticity today. PT-OP-G Mobility & Gait Start: 03/08/22 17:00 Freq: Status: Active Protocol: Document 02/13/23 12:50 DCW (Rec: 02/13/23 13:22 DCW [id number]) OP Mobility Evaluation Transfers Bed to Chair Transfers Transfers using UE Car Transfers uses slide board, stabilizes front to back and prevent slide down board Wheelchair Management Type of Wheelchair Manual w/c PT-OP-H Neuro Start: 03/08/22 17:00 Freq: Status: Active Protocol: Document 02/13/23 12:50 DCW (Rec: 02/13/23 13:22 DCW [id number]) Sensation Evaluation Gross Sensation Gross Sensation Left LE Impaired,Right LE Impaired,Trunk Impaired Sensation Description Paresthesia,Numbness,Tingling, Pins & [place],Burning Dermatome Impairments L1,L2,L3,L4,L5,S1,S2,S3,S4-5 Location Details Right Leg Light Touch Impaired Sharp/Dull Impaired Deep Pressure Intact/Normal Hot/Cold Absent Protective Sensation Absent Proprioception (Position) Impaired Kinesthesia (Movement) Impaired Two-Point Discrimination Impaired Tactile Localization Impaired Stereognosis Impaired Left Leg Light Touch Absent Sharp/Dull Absent Deep Pressure Absent Hot/Cold Impaired Protective Sensation Absent Proprioception (Position) Absent Kinesthesia (Movement) Impaired Two-Point Discrimination Absent Tactile Localization Absent Stereognosis Absent Deep Tendon Reflex & Clonus Assessment Deep Tendon Reflex Right Achilles Deep Tendon Reflex 1+ Diminished Right Patellar Deep Tendon Reflex 2+ Normal Left Achilles Deep Tendon Reflex 1+ Diminished Left Patellar Deep Tendon Reflex 0 Absent Muscle Tone Tone Assessment Right Lower Extremity Flexor Tone Description Moderate Hypertonicity Extensor Tone Description Moderate Hypertonicity Left Lower Extremity Flexor Tone Description Moderate Hypertonicity Extensor Tone Description Moderate Hypertonicity PT-OP-J Posture/Palpation/Skin Start: 03/08/22 17:00 Freq: Status: Active Protocol: Document 02/13/23 12:50 DCW (Rec: 02/13/23 13:22 DCW [id number]) Posture Evaluation Comments Posture Comments Sitting EOB with good core control and no instability. Recovers from most directional pushing, although eventually LEs went into extension spasm and pt required assist x1 to return to sitting. PT-OP-M Strength Start: 08/21/22 15:38 Freq: Status: Active Protocol: Document 02/13/23 12:50 DCW (Rec: 02/13/23 13:22 DCW [id number]) Hip Strength Hip Manual Muscle Testing Right Extension (S1) 2- Poor- Adduction 2- Poor- Left Extension (S1) 1 Trace Adduction 0 Zero Knee Strength Knee Manual Muscle Testing Right Flexion (S2) 1 Trace Extension (L3) 1 Trace Left Flexion (S2) 1 Trace Extension (L3) 1 Trace Ankle/Foot Strength Ankle and Foot Manual Muscle Testing Right Plantarflexion (S1) 1 Trace Left Plantarflexion (S1) 1 Trace PT-OP-Q Treatments Start: 03/08/22 17:00 Freq: Status: Active Protocol: Document 03/06/23 15:46 DCW (Rec: 03/06/23 16:25 DCW [id number]) Cardio Equipment Recumbent Elliptical (Biodex) Duration (Minutes) 10 Resistance 6 Seat Position 10- 458 steps Other w/c<->Biodex using UEs ( lateral scoot), GB & dycem, Mod Ax1 Therapeutic Activity Therapeutic Activity sit to stander Name Long 1st hole strap and longest lrg looped strap both on lower hook Reps/Minutes 2 stands Comments in //bars, 2 person (1 posterior pelvic/low back support, 2nd person stander control) Noted quad and gluteal firing with wt shifting forward/back/ lateral with BUE support on standing frame bars. Min cues for elongated posturing for TS ext. Improved decreased RLE flexor tone, ascend into standing with only 3 brief pauses to aclimate to flexor tone into LE extension responses. Used scale under feet to determine WB through legs. Maxed out ~100 lbs in standing . [ End ] squat/lateral scoot transfer Name w/c <-> Biodex Reps/Minutes x2 reps Comments Min/Mod today A throughout gait belt, support from behind on/off scifit. Cues to patient small pacing transition over/back w/ core and UEs. PT-OP-T Assessment and Plan Start: 03/08/22 17:00 Freq: Status: Active Protocol: Document 03/06/23 15:46 DCW (Rec: 03/06/23 16:25 DCW [id number]) Physical Therapy Assessment Goals Three Impairment Pt does not have any motor function throughout bilateral LEs Short Term Goal (STG) Pt to demonstrate 1/5 trace motor contraction in at least one quad in order to begin focus on LE mobility if neural functional return begins. STG Duration [employer] Locksmith Goal (LTG) Pt to demonstrate right quad strength to at least 2/5, demonstrating movement into ROM in an antigravity position LTG Duration 05/14/23 - improving One Impairment Pt does not have an appropriate home exercise program Short Term Goal (STG) Pt to be independent and compliant with an appropriate HEP 07/30/22: progressing: resisted tricep ext, OH raises in w/c, supine HABD, added scaption OH B #2. STG Duration 04/15/23 Progressing Assessment Summary Assessment Did very well in standing frame today, able to get up to full elevation much more easily without spasm. Physical Therapy Plan Frequency and Duration Frequency of Treatment 2x/Week Plan of Care Start Date 02/13/23 Plan of Care End Date 05/14/23 Therapeutic Interventions Therapeutic Interventions Aquatic Therapy,Balance Training,Coordination Training ,Gait Training,Home Exercise Program,Manual Therapy, Neuromuscular Re-education, Orthotic/Prosthetic Management ,Patient/Caregiver Education, Self-Care/Home Management, Sensory Integration,Soft Tissue Mobilization, Therapeutic Activities, Therapeutic Exercises, Wheelchair Management Next Visit Focus/Plan Next Note Type Treatment Note Next Visit Plan review strap positioning in stander as today's tx. *Stander next POC:Alternate Shuttle recovery and sit/stander. Continue UE and core strengthening, LE PROM and manual stretching. Transfers, mobility, LE ROM
--- NOTE | 2023-03-11 15:32 | PT.OTN ---
Current Diagnoses Paraplegia, unspecified (03/11/23) Other specified personal risk factors, not elsewhere classified (03/11/23) Other specified postprocedural states (03/11/23) Physical Therapy Treatment Note PT-OP-A Visit Information Start: 03/08/22 17:00 Freq: Status: Active Protocol: Document 03/11/23 14:50 DCW (Rec: 03/11/23 15:32 DCW [id number]) Out-Patient Physical Therapy Visit Information Visit Information Visit Type Treatment Note Visit Start Time 14:50 Visit Stop Time 15:30 Total Visit Minutes 40 Visit Number 91 Number of QUALITY REP Visits 0 Evaluation Information Evaluation Date 03/08/22 PT-OP-B Current Condition Start: 03/08/22 17:00 Freq: Status: Active Protocol: Document 03/08/22 11:15 DCW (Rec: 03/08/22 17:11 DCW [id number]) Current Condition History of Current Condition Onset Date 12/16/21 Current Complaints Paraplegia History of Current Condition Pt is a 71 year old male with a very unfortunate medical history. Pt was hiking [place] on 12/16/21 with a friend, finished up, drive back to his friend's home to drop him off, and noticed his left leg was collapsing. By the time pt drove home, both legs were giving out and numb. Pt was suddenly paralized from the waist down, was taken to the ED, and was flown to [facility] on 12/17/21. The following day, he underwent a laminectomy to relieve pressure from the thoracic epidural hematoma which had developed following his hike, which was pressing on his spinal cord. Following surgery , pt was in recovery for a week and was then transfered to rehab for 20 days, when he was finally discharged home in a wheelchair on 01/19/22. Pt reports his surgeon informed him that it is a possibility that he gets some return of nerve function. Has experienced some changes in his right LE, but has no motor function at this time from ~ T10 down. Minimal sensory return on right side, none on left. Pt has been anxious to get in to therapy and do everything he can to help return to function. Pt's , who attended his evaluation, notes that she has been doing a lot of PROM in his legs at night to keep everything moving. Pt can feel some stretching during PROM in his right leg. Pt has additionally already started occupational therapy, and has been practicing some seated stabilization. Pt transfers with a slide board, but notes it is difficult to do into his car, because he has to transfer upward at an incline. Treatment Goals Patient/Caregiver Goals I will do anything possible to get out of this wheelchair. My neurologist told me he has seen people recover from this , so I am not giving up hope. PT-OP-C Subjective Start: 03/08/22 17:00 Freq: Status: Active Protocol: Document 03/11/23 14:50 DCW (Rec: 03/11/23 15:32 DCW [id number]) OP-PT Subjective Patient Comments Patient Comments I'm not going backwards at all, that's all I can ask. PT-OP-G Mobility & Gait Start: 03/08/22 17:00 Freq: Status: Active Protocol: Document 02/13/23 12:50 DCW (Rec: 02/13/23 13:22 DCW [id number]) OP Mobility Evaluation Transfers Bed to Chair Transfers Transfers using UE Car Transfers uses slide board, stabilizes front to back and prevent slide down board Wheelchair Management Type of Wheelchair Manual w/c PT-OP-H Neuro Start: 03/08/22 17:00 Freq: Status: Active Protocol: Document 02/13/23 12:50 DCW (Rec: 02/13/23 13:22 DCW [id number]) Sensation Evaluation Gross Sensation Gross Sensation Left LE Impaired,Right LE Impaired,Trunk Impaired Sensation Description Paresthesia,Numbness,Tingling, Pins & [place],Burning Dermatome Impairments L1,L2,L3,L4,L5,S1,S2,S3,S4-5 Location Details Right Leg Light Touch Impaired Sharp/Dull Impaired Deep Pressure Intact/Normal Hot/Cold Absent Protective Sensation Absent Proprioception (Position) Impaired Kinesthesia (Movement) Impaired Two-Point Discrimination Impaired Tactile Localization Impaired Stereognosis Impaired Left Leg Light Touch Absent Sharp/Dull Absent Deep Pressure Absent Hot/Cold Impaired Protective Sensation Absent Proprioception (Position) Absent Kinesthesia (Movement) Impaired Two-Point Discrimination Absent Tactile Localization Absent Stereognosis Absent Deep Tendon Reflex & Clonus Assessment Deep Tendon Reflex Right Achilles Deep Tendon Reflex 1+ Diminished Right Patellar Deep Tendon Reflex 2+ Normal Left Achilles Deep Tendon Reflex 1+ Diminished Left Patellar Deep Tendon Reflex 0 Absent Muscle Tone Tone Assessment Right Lower Extremity Flexor Tone Description Moderate Hypertonicity Extensor Tone Description Moderate Hypertonicity Left Lower Extremity Flexor Tone Description Moderate Hypertonicity Extensor Tone Description Moderate Hypertonicity PT-OP-J Posture/Palpation/Skin Start: 03/08/22 17:00 Freq: Status: Active Protocol: Document 02/13/23 12:50 DCW (Rec: 02/13/23 13:22 DCW [id number]) Posture Evaluation Comments Posture Comments Sitting EOB with good core control and no instability. Recovers from most directional pushing, although eventually LEs went into extension spasm and pt required assist x1 to return to sitting. PT-OP-M Strength Start: 08/21/22 15:38 Freq: Status: Active Protocol: Document 02/13/23 12:50 DCW (Rec: 02/13/23 13:22 DCW [id number]) Hip Strength Hip Manual Muscle Testing Right Extension (S1) 2- Poor- Adduction 2- Poor- Left Extension (S1) 1 Trace Adduction 0 Zero Knee Strength Knee Manual Muscle Testing Right Flexion (S2) 1 Trace Extension (L3) 1 Trace Left Flexion (S2) 1 Trace Extension (L3) 1 Trace Ankle/Foot Strength Ankle and Foot Manual Muscle Testing Right Plantarflexion (S1) 1 Trace Left Plantarflexion (S1) 1 Trace PT-OP-Q Treatments Start: 03/08/22 17:00 Freq: Status: Active Protocol: Document 03/11/23 14:50 DCW (Rec: 03/11/23 15:32 DCW [id number]) Cardio Equipment Recumbent Elliptical (Biodex) Duration (Minutes) 10 Resistance 6 Seat Position 10 Other w/c<->Biodex using UEs ( lateral scoot), GB & dycem, Mod Ax1 Gym Equipment Shuttle Recovery Bilateral Squats Details without and with BUE assist on thighs LE ext Resistance 12# unassisted, 50# assisted Reps/Time Slight movements when unassisted, assisted back-> eccentric lowering Therapeutic Exercises Supine Exercises Hamstring Stretch Supine Exercise Name HS stretch Side bilateral Equipment Used wedge and 3 pillows under TS/ head DT excess kyphosis Reps/Minutes 30 Comments cued breath allow relax musculature Knee to Chest Supine Exercise Name Single KtC, Double KtC Side bilateral Resistance manual Equipment Used 3 pillows under CS/ TS ( excessive kyphosis) Therapeutic Activity Therapeutic Activity squat/lateral scoot transfer Name w/c<> Biodex, Leg press, mat Reps/Minutes x6 res Comments Min/Mod today A throughout gait belt, support from behind on/off scifit. Cues to patient small pacing transition over/back w/ core and UEs. PT-OP-T Assessment and Plan Start: 03/08/22 17:00 Freq: Status: Active Protocol: Document 03/11/23 14:50 DCW (Rec: 03/11/23 15:32 DCW [id number]) Physical Therapy Assessment Goals Three Impairment Pt does not have any motor function throughout bilateral LEs Short Term Goal (STG) Pt to demonstrate 1/5 trace motor contraction in at least one quad in order to begin focus on LE mobility if neural functional return begins. STG Duration Met [employer] Goal (LTG) Pt to demonstrate right quad strength to at least 2/5, demonstrating movement into ROM in an antigravity position LTG Duration 05/14/23 - improving One Impairment Pt does not have an appropriate home exercise program Short Term Goal (STG) Pt to be independent and compliant with an appropriate HEP 07/30/22: progressing: resisted tricep ext, OH raises in w/c, supine HABD, added scaption OH B #2. STG Duration 04/15/23 Progressing Assessment Summary Assessment Hamstrings responding well to recent stretching, much more flexible today. Had some good eccentric lowering on leg press today. Physical Therapy Plan Frequency and Duration Frequency of Treatment 2x/Week Plan of Care Start Date 02/13/23 Plan of Care End Date 05/14/23 Therapeutic Interventions Therapeutic Interventions Aquatic Therapy,Balance Training,Coordination Training ,Gait Training,Home Exercise Program,Manual Therapy, Neuromuscular Re-education, Orthotic/Prosthetic Management ,Patient/Caregiver Education, Self-Care/Home Management, Sensory Integration,Soft Tissue Mobilization, Therapeutic Activities, Therapeutic Exercises, Wheelchair Management Next Visit Focus/Plan Next Note Type Treatment Note Next Visit Plan review strap positioning in stander as today's tx. *Stander next POC:Alternate Shuttle recovery and sit/stander. Continue UE and core strengthening, LE PROM and manual stretching. Transfers, mobility, LE ROM
--- NOTE | 2023-03-13 15:30 | PT.OTN ---
Current Diagnoses Paraplegia, unspecified (03/13/23) Other specified personal risk factors, not elsewhere classified (03/13/23) Other specified postprocedural states (03/13/23) Physical Therapy Treatment Note PT-OP-A Visit Information Start: 03/08/22 17:00 Freq: Status: Active Protocol: Document 03/13/23 14:45 DCW (Rec: 03/13/23 15:30 DCW [id number]) Out-Patient Physical Therapy Visit Information Visit Information Visit Type Treatment Note Visit Start Time 14:45 Visit Stop Time 15:30 Total Visit Minutes 45 Visit Number 92 Number of ENGINEERING TECHNOLOGIST Visits 0 Evaluation Information Evaluation Date 03/08/22 PT-OP-B Current Condition Start: 03/08/22 17:00 Freq: Status: Active Protocol: Document 03/08/22 11:15 DCW (Rec: 03/08/22 17:11 DCW [id number]) Current Condition History of Current Condition Onset Date 12/16/21 Current Complaints Paraplegia History of Current Condition Pt is a 71 year old male with a very unfortunate medical history. Pt was hiking [place] on 12/16/21 with a friend, finished up, drive back to his friend's home to drop him off, and noticed his left leg was collapsing. By the time pt drove home, both legs were giving out and numb. Pt was suddenly paralized from the waist down, was taken to the ED, and was flown to [facility] on 12/17/21. The following day, he underwent a laminectomy to relieve pressure from the thoracic epidural hematoma which had developed following his hike, which was pressing on his spinal cord. Following surgery , pt was in recovery for a week and was then transfered to rehab for 20 days, when he was finally discharged home in a wheelchair on 01/19/22. Pt reports his surgeon informed him that it is a possibility that he gets some return of nerve function. Has experienced some changes in his right LE, but has no motor function at this time from ~ T10 down. Minimal sensory return on right side, none on left. Pt has been anxious to get in to therapy and do everything he can to help return to function. Pt's , who attended his evaluation, notes that she has been doing a lot of PROM in his legs at night to keep everything moving. Pt can feel some stretching during PROM in his right leg. Pt has additionally already started occupational therapy, and has been practicing some seated stabilization. Pt transfers with a slide board, but notes it is difficult to do into his car, because he has to transfer upward at an incline. Treatment Goals Patient/Caregiver Goals I will do anything possible to get out of this wheelchair. My neurologist told me he has seen people recover from this , so I am not giving up hope. PT-OP-C Subjective Start: 03/08/22 17:00 Freq: Status: Active Protocol: Document 03/13/23 14:45 DCW (Rec: 03/13/23 15:30 DCW [id number]) OP-PT Subjective Patient Comments Patient Comments Pt feeling good today. PT-OP-G Mobility & Gait Start: 03/08/22 17:00 Freq: Status: Active Protocol: Document 02/13/23 12:50 DCW (Rec: 02/13/23 13:22 DCW [id number]) OP Mobility Evaluation Transfers Bed to Chair Transfers Transfers using UE Car Transfers uses slide board, stabilizes front to back and prevent slide down board Wheelchair Management Type of Wheelchair Manual w/c PT-OP-H Neuro Start: 03/08/22 17:00 Freq: Status: Active Protocol: Document 02/13/23 12:50 DCW (Rec: 02/13/23 13:22 DCW [id number]) Sensation Evaluation Gross Sensation Gross Sensation Left LE Impaired,Right LE Impaired,Trunk Impaired Sensation Description Paresthesia,Numbness,Tingling, Pins & [place],Burning Dermatome Impairments L1,L2,L3,L4,L5,S1,S2,S3,S4-5 Location Details Right Leg Light Touch Impaired Sharp/Dull Impaired Deep Pressure Intact/Normal Hot/Cold Absent Protective Sensation Absent Proprioception (Position) Impaired Kinesthesia (Movement) Impaired Two-Point Discrimination Impaired Tactile Localization Impaired Stereognosis Impaired Left Leg Light Touch Absent Sharp/Dull Absent Deep Pressure Absent Hot/Cold Impaired Protective Sensation Absent Proprioception (Position) Absent Kinesthesia (Movement) Impaired Two-Point Discrimination Absent Tactile Localization Absent Stereognosis Absent Deep Tendon Reflex & Clonus Assessment Deep Tendon Reflex Right Achilles Deep Tendon Reflex 1+ Diminished Right Patellar Deep Tendon Reflex 2+ Normal Left Achilles Deep Tendon Reflex 1+ Diminished Left Patellar Deep Tendon Reflex 0 Absent Muscle Tone Tone Assessment Right Lower Extremity Flexor Tone Description Moderate Hypertonicity Extensor Tone Description Moderate Hypertonicity Left Lower Extremity Flexor Tone Description Moderate Hypertonicity Extensor Tone Description Moderate Hypertonicity PT-OP-J Posture/Palpation/Skin Start: 03/08/22 17:00 Freq: Status: Active Protocol: Document 02/13/23 12:50 DCW (Rec: 02/13/23 13:22 DCW [id number]) Posture Evaluation Comments Posture Comments Sitting EOB with good core control and no instability. Recovers from most directional pushing, although eventually LEs went into extension spasm and pt required assist x1 to return to sitting. PT-OP-M Strength Start: 08/21/22 15:38 Freq: Status: Active Protocol: Document 02/13/23 12:50 DCW (Rec: 02/13/23 13:22 DCW [id number]) Hip Strength Hip Manual Muscle Testing Right Extension (S1) 2- Poor- Adduction 2- Poor- Left Extension (S1) 1 Trace Adduction 0 Zero Knee Strength Knee Manual Muscle Testing Right Flexion (S2) 1 Trace Extension (L3) 1 Trace Left Flexion (S2) 1 Trace Extension (L3) 1 Trace Ankle/Foot Strength Ankle and Foot Manual Muscle Testing Right Plantarflexion (S1) 1 Trace Left Plantarflexion (S1) 1 Trace PT-OP-Q Treatments Start: 03/08/22 17:00 Freq: Status: Active Protocol: Document 03/13/23 14:45 DCW (Rec: 03/13/23 15:30 DCW [id number]) Cardio Equipment Recumbent Elliptical (Biodex) Duration (Minutes) 10 Resistance 8 Seat Position 10 Other w/c<->Biodex using UEs ( lateral scoot), GB & dycem, Mod Ax1 Therapeutic Activity Therapeutic Activity sit to stander Name Long 1st hole strap and longest lrg looped strap both on lower hook Reps/Minutes 2 stands Comments in //bars, 2 person (1 posterior pelvic/low back support, 2nd person stander control) Noted quad and gluteal firing with wt shifting forward/back/ lateral with BUE support on standing frame bars. Min cues for elongated posturing for TS ext. Improved decreased RLE flexor tone, ascend into standing with only 3 brief pauses to aclimate to flexor tone into LE extension responses. Used scale under feet to determine WB through legs. Maxed out ~100 lbs in standing . [ End ] squat/lateral scoot transfer Name w/c <-> Biodex Reps/Minutes x2 reps Comments Min/Mod today A throughout gait belt, support from behind on/off scifit. Cues to patient small pacing transition over/back w/ core and UEs. PT-OP-T Assessment and Plan Start: 03/08/22 17:00 Freq: Status: Active Protocol: Document 03/13/23 14:45 DCW (Rec: 03/13/23 15:30 DCW [id number]) Physical Therapy Assessment Impairments Impairments Activity Tolerance,Balance, Coordination,Functional Activities,Functional Mobility ,Gait,Integument,Sensation, Soft Tissue Mobility,Strength, Tone,Transfers Goals Three Impairment Pt does not have any motor function throughout bilateral LEs Short Term Goal (STG) Pt to demonstrate 1/5 trace motor contraction in at least one quad in order to begin focus on LE mobility if neural functional return begins. STG Duration Met Mcfp Goal (LTG) Pt to demonstrate right quad strength to at least 2/5, demonstrating movement into ROM in an antigravity position LTG Duration 05/14/23 - improving One Impairment Pt does not have an appropriate home exercise program Short Term Goal (STG) Pt to be independent and compliant with an appropriate HEP 07/30/22: progressing: resisted tricep ext, OH raises in w/c, supine HABD, added scaption OH B #2. STG Duration 04/15/23 Progressing Assessment Summary Assessment Pt continues to do very well in standing frame, still hoping to get a home standing frame. Improving with tone management with recently getting more regular Baclofen. Physical Therapy Plan Frequency and Duration Frequency of Treatment 2x/Week Plan of Care Start Date 02/13/23 Plan of Care End Date 05/14/23 Therapeutic Interventions Therapeutic Interventions Aquatic Therapy,Balance Training,Coordination Training ,Gait Training,Home Exercise Program,Manual Therapy, Neuromuscular Re-education, Orthotic/Prosthetic Management ,Patient/Caregiver Education, Self-Care/Home Management, Sensory Integration,Soft Tissue Mobilization, Therapeutic Activities, Therapeutic Exercises, Wheelchair Management Next Visit Focus/Plan Next Note Type Treatment Note Next Visit Plan review strap positioning in stander as today's tx. *Leg press next POC:Alternate Shuttle recovery and sit/stander. Continue UE and core strengthening, LE PROM and manual stretching. Transfers, mobility, LE ROM
--- NOTE | 2023-03-18 17:14 | PT.OTN ---
Addendum entered and electronically signed by Maine Richter PT 03/20/23 12:21: PT directed and directly supervised SPT throughout treatment session. Original Note: Current Diagnoses Paraplegia, unspecified (03/18/23) Other specified personal risk factors, not elsewhere classified (03/18/23) Other specified postprocedural states (03/18/23) Physical Therapy Treatment Note PT-OP-A Visit Information Start: 03/08/22 17:00 Freq: Status: Active Protocol: Document 03/18/23 14:41 BS (Rec: 03/18/23 15:46 BS [id number]) Out-Patient Physical Therapy Visit Information Visit Information Visit Type Treatment Note Visit Start Time 14:35 Visit Stop Time 15:20 Total Visit Minutes 45 Visit Number 93 PT-OP-B Current Condition Start: 03/08/22 17:00 Freq: Status: Active Protocol: Document 03/08/22 11:15 DCW (Rec: 03/08/22 17:11 DCW [id number]) Current Condition History of Current Condition Onset Date 12/16/21 Current Complaints Paraplegia History of Current Condition Pt is a 71 year old male with a very unfortunate medical history. Pt was hiking [email or web address] on 12/16/21 with a friend, finished up, drive back to his friend's home to drop him off, and noticed his left leg was collapsing. By the time pt drove home, both legs were giving out and numb. Pt was suddenly paralized from the waist down, was taken to the ED, and was flown to [facility] on 12/17/21. The following day, he underwent a laminectomy to relieve pressure from the thoracic epidural hematoma which had developed following his hike, which was pressing on his spinal cord. Following surgery , pt was in recovery for a week and was then transfered to rehab for 20 days, when he was finally discharged home in a wheelchair on 01/19/22. Pt reports his surgeon informed him that it is a possibility that he gets some return of nerve function. Has experienced some changes in his right LE, but has no motor function at this time from ~ T10 down. Minimal sensory return on right side, none on left. Pt has been anxious to get in to therapy and do everything he can to help return to function. Pt's , who attended his evaluation, notes that she has been doing a lot of PROM in his legs at night to keep everything moving. Pt can feel some stretching during PROM in his right leg. Pt has additionally already started occupational therapy, and has been practicing some seated stabilization. Pt transfers with a slide board, but notes it is difficult to do into his car, because he has to transfer upward at an incline. Treatment Goals Patient/Caregiver Goals I will do anything possible to get out of this wheelchair. My neurologist told me he has seen people recover from this , so I am not giving up hope. PT-OP-C Subjective Start: 03/08/22 17:00 Freq: Status: Active Protocol: Document 03/18/23 14:41 BS (Rec: 03/18/23 15:46 BS [id number]) OP-PT Subjective Patient Comments Patient Comments Pt doing well today with no sig information to report. PT-OP-G Mobility & Gait Start: 03/08/22 17:00 Freq: Status: Active Protocol: Document 02/13/23 12:50 DCW (Rec: 02/13/23 13:22 DCW [id number]) OP Mobility Evaluation Transfers Bed to Chair Transfers Transfers using UE Car Transfers uses slide board, stabilizes front to back and prevent slide down board Wheelchair Management Type of Wheelchair Manual w/c PT-OP-H Neuro Start: 03/08/22 17:00 Freq: Status: Active Protocol: Document 02/13/23 12:50 DCW (Rec: 02/13/23 13:22 DCW [id number]) Sensation Evaluation Gross Sensation Gross Sensation Left LE Impaired,Right LE Impaired,Trunk Impaired Sensation Description Paresthesia,Numbness,Tingling, Pins & [place],Burning Dermatome Impairments L1,L2,L3,L4,L5,S1,S2,S3,S4-5 Location Details Right Leg Light Touch Impaired Sharp/Dull Impaired Deep Pressure Intact/Normal Hot/Cold Absent Protective Sensation Absent Proprioception (Position) Impaired Kinesthesia (Movement) Impaired Two-Point Discrimination Impaired Tactile Localization Impaired Stereognosis Impaired Left Leg Light Touch Absent Sharp/Dull Absent Deep Pressure Absent Hot/Cold Impaired Protective Sensation Absent Proprioception (Position) Absent Kinesthesia (Movement) Impaired Two-Point Discrimination Absent Tactile Localization Absent Stereognosis Absent Deep Tendon Reflex & Clonus Assessment Deep Tendon Reflex Right Achilles Deep Tendon Reflex 1+ Diminished Right Patellar Deep Tendon Reflex 2+ Normal Left Achilles Deep Tendon Reflex 1+ Diminished Left Patellar Deep Tendon Reflex 0 Absent Muscle Tone Tone Assessment Right Lower Extremity Flexor Tone Description Moderate Hypertonicity Extensor Tone Description Moderate Hypertonicity Left Lower Extremity Flexor Tone Description Moderate Hypertonicity Extensor Tone Description Moderate Hypertonicity PT-OP-J Posture/Palpation/Skin Start: 03/08/22 17:00 Freq: Status: Active Protocol: Document 02/13/23 12:50 DCW (Rec: 02/13/23 13:22 DCW [id number]) Posture Evaluation Comments Posture Comments Sitting EOB with good core control and no instability. Recovers from most directional pushing, although eventually LEs went into extension spasm and pt required assist x1 to return to sitting. PT-OP-M Strength Start: 08/21/22 15:38 Freq: Status: Active Protocol: Document 02/13/23 12:50 DCW (Rec: 02/13/23 13:22 DCW [id number]) Hip Strength Hip Manual Muscle Testing Right Extension (S1) 2- Poor- Adduction 2- Poor- Left Extension (S1) 1 Trace Adduction 0 Zero Knee Strength Knee Manual Muscle Testing Right Flexion (S2) 1 Trace Extension (L3) 1 Trace Left Flexion (S2) 1 Trace Extension (L3) 1 Trace Ankle/Foot Strength Ankle and Foot Manual Muscle Testing Right Plantarflexion (S1) 1 Trace Left Plantarflexion (S1) 1 Trace PT-OP-Q Treatments Start: 03/08/22 17:00 Freq: Status: Active Protocol: Document 03/18/23 14:41 BS (Rec: 03/18/23 15:46 BS [id number]) Cardio Equipment Recumbent Elliptical (Biodex) Duration (Minutes) 10 Resistance 6 Seat Position 10 Other w/c<->biodex dep lift transfer Gym Equipment Shuttle Recovery Bilateral Squats Details with BUE assist on thighs Resistance 25# assisted, 12# unassisted Reps/Time Slight movements when unassisted, assisted back-> eccentric lowering Therapeutic Activity Therapeutic Activity squat/lateral scoot transfer Name w/c<>biodex, leg press, mat Reps/Minutes x6 Comments Min/Mod A today throughout transfers w/ support in front. Did well overall with multiple dep lifts required to complete each transfer. Neuro Re-Education Treatment Balance Activities Seated balance Surface EOB - black mat table Equipment 2.2lb yellow ball Reps/Duration 20 min Comments 1. no UE support 2. UE straight out at sides 3. holding ball at chest 4. small twists holding ball close to chest PT-OP-T Assessment and Plan Start: 03/08/22 17:00 Freq: Status: Active Protocol: Document 03/18/23 14:41 BS (Rec: 03/18/23 15:46 BS [id number]) Physical Therapy Assessment Goals Three Impairment Pt does not have any motor function throughout bilateral LEs Short Term Goal (STG) Pt to demonstrate 1/5 trace motor contraction in at least one quad in order to begin focus on LE mobility if neural functional return begins. STG Duration Met Mcc Goal (LTG) Pt to demonstrate right quad strength to at least 2/5, demonstrating movement into ROM in an antigravity position LTG Duration 05/14/23 - improving One Impairment Pt does not have an appropriate home exercise program Short Term Goal (STG) Pt to be independent and compliant with an appropriate HEP 07/30/22: progressing: resisted tricep ext, OH raises in w/c, supine HABD, added scaption OH B #2. STG Duration 04/15/23 Progressing Assessment Summary Assessment Pt continues to present with significant tone throughout BLE that takes ~20-30s to dec once spasms come on. Pt did well with eccentric control today on leg press, although unclear what comes from tone and what is mm control. Pt taken to mat table after to work on seated balance. Pt was unsteady at start but with repetition and fpcus was able to improve dynamic seated balance with no UE use. On final transfer mat>w/c pt had two LOB backwards that was caught by second assist behind . Pt has tendency to move too quick during transfers and doesn't utilize head-hips relationship and forward off weighting of hips during transfers. Pt reported ejoying working on seated balance today. Physical Therapy Plan Frequency and Duration Frequency of Treatment 2x/Week Plan of Care Start Date 02/13/23 Plan of Care End Date 05/14/23 Next Visit Focus/Plan Next Note Type Treatment Note Next Visit Plan review strap positioning in stander as today's tx. *Leg press next POC:Alternate Shuttle recovery and sit/stander. Continue UE and core strengthening, LE PROM and manual stretching. Transfers, mobility, LE ROM pt will benefit from breakdown of transfers to improve efficiency and mechanics, as well as working on more seated balance EOB.
--- NOTE | 2023-03-20 16:19 | PT.OTN ---
Current Diagnoses Paraplegia, unspecified (03/20/23) Other specified personal risk factors, not elsewhere classified (03/20/23) Other specified postprocedural states (03/20/23) Physical Therapy Treatment Note PT-OP-A Visit Information Start: 03/08/22 17:00 Freq: Status: Active Protocol: Document 03/20/23 16:14 ED (Rec: 03/20/23 16:19 ED [id number]) Out-Patient Physical Therapy Visit Information Visit Information Visit Type Treatment Note Visit Start Time 15:15 Visit Stop Time 16:00 Total Visit Minutes 45 Visit Number 94 PT-OP-B Current Condition Start: 03/08/22 17:00 Freq: Status: Active Protocol: Document 03/08/22 11:15 DCW (Rec: 03/08/22 17:11 DCW [id number]) Current Condition History of Current Condition Onset Date 12/16/21 Current Complaints Paraplegia History of Current Condition Pt is a 71 year old male with a very unfortunate medical history. Pt was hiking [employer] on 12/16/21 with a friend, finished up, drive back to his friend's home to drop him off, and noticed his left leg was collapsing. By the time pt drove home, both legs were giving out and numb. Pt was suddenly paralized from the waist down, was taken to the ED, and was flown to [facility] on 12/17/21. The following day, he underwent a laminectomy to relieve pressure from the thoracic epidural hematoma which had developed following his hike, which was pressing on his spinal cord. Following surgery , pt was in recovery for a week and was then transfered to rehab for 20 days, when he was finally discharged home in a wheelchair on 01/19/22. Pt reports his surgeon informed him that it is a possibility that he gets some return of nerve function. Has experienced some changes in his right LE, but has no motor function at this time from ~ T10 down. Minimal sensory return on right side, none on left. Pt has been anxious to get in to therapy and do everything he can to help return to function. Pt's , who attended his evaluation, notes that she has been doing a lot of PROM in his legs at night to keep everything moving. Pt can feel some stretching during PROM in his right leg. Pt has additionally already started occupational therapy, and has been practicing some seated stabilization. Pt transfers with a slide board, but notes it is difficult to do into his car, because he has to transfer upward at an incline. Treatment Goals Patient/Caregiver Goals I will do anything possible to get out of this wheelchair. My neurologist told me he has seen people recover from this , so I am not giving up hope. PT-OP-C Subjective Start: 03/08/22 17:00 Freq: Status: Active Protocol: Document 03/20/23 16:14 ED (Rec: 03/20/23 16:19 ED [id number]) OP-PT Subjective Patient Comments Patient Comments No major changes for patient today. Wants to keep working at getting better at physical therapy. PT-OP-G Mobility & Gait Start: 03/08/22 17:00 Freq: Status: Active Protocol: Document 02/13/23 12:50 DCW (Rec: 02/13/23 13:22 DCW [id number]) OP Mobility Evaluation Transfers Bed to Chair Transfers Transfers using UE Car Transfers uses slide board, stabilizes front to back and prevent slide down board Wheelchair Management Type of Wheelchair Manual w/c PT-OP-H Neuro Start: 03/08/22 17:00 Freq: Status: Active Protocol: Document 02/13/23 12:50 DCW (Rec: 02/13/23 13:22 DCW [id number]) Sensation Evaluation Gross Sensation Gross Sensation Left LE Impaired,Right LE Impaired,Trunk Impaired Sensation Description Paresthesia,Numbness,Tingling, Pins & [place],Burning Dermatome Impairments L1,L2,L3,L4,L5,S1,S2,S3,S4-5 Location Details Right Leg Light Touch Impaired Sharp/Dull Impaired Deep Pressure Intact/Normal Hot/Cold Absent Protective Sensation Absent Proprioception (Position) Impaired Kinesthesia (Movement) Impaired Two-Point Discrimination Impaired Tactile Localization Impaired Stereognosis Impaired Left Leg Light Touch Absent Sharp/Dull Absent Deep Pressure Absent Hot/Cold Impaired Protective Sensation Absent Proprioception (Position) Absent Kinesthesia (Movement) Impaired Two-Point Discrimination Absent Tactile Localization Absent Stereognosis Absent Deep Tendon Reflex & Clonus Assessment Deep Tendon Reflex Right Achilles Deep Tendon Reflex 1+ Diminished Right Patellar Deep Tendon Reflex 2+ Normal Left Achilles Deep Tendon Reflex 1+ Diminished Left Patellar Deep Tendon Reflex 0 Absent Muscle Tone Tone Assessment Right Lower Extremity Flexor Tone Description Moderate Hypertonicity Extensor Tone Description Moderate Hypertonicity Left Lower Extremity Flexor Tone Description Moderate Hypertonicity Extensor Tone Description Moderate Hypertonicity PT-OP-J Posture/Palpation/Skin Start: 03/08/22 17:00 Freq: Status: Active Protocol: Document 02/13/23 12:50 DCW (Rec: 02/13/23 13:22 DCW [id number]) Posture Evaluation Comments Posture Comments Sitting EOB with good core control and no instability. Recovers from most directional pushing, although eventually LEs went into extension spasm and pt required assist x1 to return to sitting. PT-OP-M Strength Start: 08/21/22 15:38 Freq: Status: Active Protocol: Document 02/13/23 12:50 DCW (Rec: 02/13/23 13:22 DCW [id number]) Hip Strength Hip Manual Muscle Testing Right Extension (S1) 2- Poor- Adduction 2- Poor- Left Extension (S1) 1 Trace Adduction 0 Zero Knee Strength Knee Manual Muscle Testing Right Flexion (S2) 1 Trace Extension (L3) 1 Trace Left Flexion (S2) 1 Trace Extension (L3) 1 Trace Ankle/Foot Strength Ankle and Foot Manual Muscle Testing Right Plantarflexion (S1) 1 Trace Left Plantarflexion (S1) 1 Trace PT-OP-Q Treatments Start: 03/08/22 17:00 Freq: Status: Active Protocol: Document 03/20/23 16:14 ED (Rec: 03/20/23 16:19 ED [id number]) Cardio Equipment Recumbent Elliptical (Biodex) Duration (Minutes) 10 Resistance 6 Seat Position 10 Other w/c<->biodex dep lift transfer Therapeutic Activity Therapeutic Activity sit to stander Name Long 1st hole strap and longest lrg looped strap both on lower hook Reps/Minutes 2 stands Comments in //bars, 2 person (1 posterior pelvic/low back support, 2nd person stander control) Noted quad and gluteal firing with wt shifting forward/back/ lateral with BUE support on standing frame bars. Min cues for elongated posturing for TS ext. Improved decreased RLE flexor tone, ascend into standing with only 3 brief pauses to aclimate to flexor tone into LE extension responses. Used scale under feet to determine WB through legs. Maxed out ~100 lbs in standing . [ End ] squat/lateral scoot transfer Name w/c <-> Biodex Reps/Minutes x2 reps Comments Min/Mod today A throughout gait belt, support from behind on/off scifit. Cues to patient small pacing transition over/back w/ core and UEs. Neuro Re-Education Treatment Balance Activities Seated balance Surface EOB - black mat table Comments lateral weight shifts; elbow to bolster fwd/bkwd weight shifts trying to manipulate CoG in controlled fashion PT-OP-T Assessment and Plan Start: 03/08/22 17:00 Freq: Status: Active Protocol: Document 03/20/23 16:14 ED (Rec: 03/20/23 16:19 ED [id number]) Physical Therapy Assessment Goals Three Impairment Pt does not have any motor function throughout bilateral LEs Short Term Goal (STG) Pt to demonstrate 1/5 trace motor contraction in at least one quad in order to begin focus on LE mobility if neural functional return begins. STG Duration Met Basting Cleaner Goal (LTG) Pt to demonstrate right quad strength to at least 2/5, demonstrating movement into ROM in an antigravity position LTG Duration 05/14/23 - improving One Impairment Pt does not have an appropriate home exercise program Short Term Goal (STG) Pt to be independent and compliant with an appropriate HEP 07/30/22: progressing: resisted tricep ext, OH raises in w/c, supine HABD, added scaption OH B #2. STG Duration 04/15/23 Progressing Assessment Summary Assessment Worked on seated balance and then used standing frame at end of session. Pt required multiple attempts during sliding transfers and cuing for appropriate placement of w /c. Informed patient how important appopriate set up is for successful transfers. Performed dynamic mediolateral and anterior/posterior weight shifts in sitting; patient often would lose ability to control motions during weight shifts. Physical Therapy Plan Frequency and Duration Frequency of Treatment 2x/Week Plan of Care Start Date 02/13/23 Plan of Care End Date 05/14/23 Therapeutic Interventions Therapeutic Interventions Aquatic Therapy,Balance Training,Coordination Training ,Gait Training,Home Exercise Program,Manual Therapy, Neuromuscular Re-education, Orthotic/Prosthetic Management ,Patient/Caregiver Education, Self-Care/Home Management, Sensory Integration,Soft Tissue Mobilization, Therapeutic Activities, Therapeutic Exercises, Wheelchair Management Next Visit Focus/Plan Next Note Type Treatment Note Next Visit Plan review strap positioning in stander as today's tx. *Leg press next POC:Alternate Shuttle recovery and sit/stander. Continue UE and core strengthening, LE PROM and manual stretching. Transfers, mobility, LE ROM pt will benefit from breakdown of transfers to improve efficiency and mechanics, as well as working on more seated balance EOB.
--- NOTE | 2023-03-25 15:16 | PT.OTN ---
Current Diagnoses Paraplegia, unspecified (03/25/23) Other specified personal risk factors, not elsewhere classified (03/25/23) Other specified postprocedural states (03/25/23) Physical Therapy Treatment Note PT-OP-A Visit Information Start: 03/08/22 17:00 Freq: Status: Active Protocol: Document 03/25/23 14:30 DCW (Rec: 03/25/23 15:15 DCW [id number]) Out-Patient Physical Therapy Visit Information Visit Information Visit Type Treatment Note Visit Start Time 14:30 Visit Stop Time 15:15 Total Visit Minutes 45 Visit Number 95 Evaluation Information Evaluation Date 03/08/22 PT-OP-B Current Condition Start: 03/08/22 17:00 Freq: Status: Active Protocol: Document 03/08/22 11:15 DCW (Rec: 03/08/22 17:11 DCW [id number]) Current Condition History of Current Condition Onset Date 12/16/21 Current Complaints Paraplegia History of Current Condition Pt is a 71 year old male with a very unfortunate medical history. Pt was hiking [employer] on 12/16/21 with a friend, finished up, drive back to his friend's home to drop him off, and noticed his left leg was collapsing. By the time pt drove home, both legs were giving out and numb. Pt was suddenly paralized from the waist down, was taken to the ED, and was flown to [facility] on 12/17/21. The following day, he underwent a laminectomy to relieve pressure from the thoracic epidural hematoma which had developed following his hike, which was pressing on his spinal cord. Following surgery , pt was in recovery for a week and was then transfered to rehab for 20 days, when he was finally discharged home in a wheelchair on 01/19/22. Pt reports his surgeon informed him that it is a possibility that he gets some return of nerve function. Has experienced some changes in his right LE, but has no motor function at this time from ~ T10 down. Minimal sensory return on right side, none on left. Pt has been anxious to get in to therapy and do everything he can to help return to function. Pt's , who attended his evaluation, notes that she has been doing a lot of PROM in his legs at night to keep everything moving. Pt can feel some stretching during PROM in his right leg. Pt has additionally already started occupational therapy, and has been practicing some seated stabilization. Pt transfers with a slide board, but notes it is difficult to do into his car, because he has to transfer upward at an incline. Treatment Goals Patient/Caregiver Goals I will do anything possible to get out of this wheelchair. My neurologist told me he has seen people recover from this , so I am not giving up hope. PT-OP-C Subjective Start: 03/08/22 17:00 Freq: Status: Active Protocol: Document 03/25/23 14:30 DCW (Rec: 03/25/23 15:15 DCW [id number]) OP-PT Subjective Patient Comments Patient Comments It's hard to describe, but I' ve been feeling better. I feel better in my feet, if that makes any sense. PT-OP-G Mobility & Gait Start: 03/08/22 17:00 Freq: Status: Active Protocol: Document 02/13/23 12:50 DCW (Rec: 02/13/23 13:22 DCW [id number]) OP Mobility Evaluation Transfers Bed to Chair Transfers Transfers using UE Car Transfers uses slide board, stabilizes front to back and prevent slide down board Wheelchair Management Type of Wheelchair Manual w/c PT-OP-H Neuro Start: 03/08/22 17:00 Freq: Status: Active Protocol: Document 02/13/23 12:50 DCW (Rec: 02/13/23 13:22 DCW [id number]) Sensation Evaluation Gross Sensation Gross Sensation Left LE Impaired,Right LE Impaired,Trunk Impaired Sensation Description Paresthesia,Numbness,Tingling, Pins & [place],Burning Dermatome Impairments L1,L2,L3,L4,L5,S1,S2,S3,S4-5 Location Details Right Leg Light Touch Impaired Sharp/Dull Impaired Deep Pressure Intact/Normal Hot/Cold Absent Protective Sensation Absent Proprioception (Position) Impaired Kinesthesia (Movement) Impaired Two-Point Discrimination Impaired Tactile Localization Impaired Stereognosis Impaired Left Leg Light Touch Absent Sharp/Dull Absent Deep Pressure Absent Hot/Cold Impaired Protective Sensation Absent Proprioception (Position) Absent Kinesthesia (Movement) Impaired Two-Point Discrimination Absent Tactile Localization Absent Stereognosis Absent Deep Tendon Reflex & Clonus Assessment Deep Tendon Reflex Right Achilles Deep Tendon Reflex 1+ Diminished Right Patellar Deep Tendon Reflex 2+ Normal Left Achilles Deep Tendon Reflex 1+ Diminished Left Patellar Deep Tendon Reflex 0 Absent Muscle Tone Tone Assessment Right Lower Extremity Flexor Tone Description Moderate Hypertonicity Extensor Tone Description Moderate Hypertonicity Left Lower Extremity Flexor Tone Description Moderate Hypertonicity Extensor Tone Description Moderate Hypertonicity PT-OP-J Posture/Palpation/Skin Start: 03/08/22 17:00 Freq: Status: Active Protocol: Document 02/13/23 12:50 DCW (Rec: 02/13/23 13:22 DCW [id number]) Posture Evaluation Comments Posture Comments Sitting EOB with good core control and no instability. Recovers from most directional pushing, although eventually LEs went into extension spasm and pt required assist x1 to return to sitting. PT-OP-M Strength Start: 08/21/22 15:38 Freq: Status: Active Protocol: Document 02/13/23 12:50 DCW (Rec: 02/13/23 13:22 DCW [id number]) Hip Strength Hip Manual Muscle Testing Right Extension (S1) 2- Poor- Adduction 2- Poor- Left Extension (S1) 1 Trace Adduction 0 Zero Knee Strength Knee Manual Muscle Testing Right Flexion (S2) 1 Trace Extension (L3) 1 Trace Left Flexion (S2) 1 Trace Extension (L3) 1 Trace Ankle/Foot Strength Ankle and Foot Manual Muscle Testing Right Plantarflexion (S1) 1 Trace Left Plantarflexion (S1) 1 Trace PT-OP-Q Treatments Start: 03/08/22 17:00 Freq: Status: Active Protocol: Document 03/25/23 14:30 DCW (Rec: 03/25/23 15:15 DCW [id number]) Cardio Equipment Recumbent Elliptical (Biodex) Duration (Minutes) 10 Resistance 6 Seat Position 10 Other w/c<->biodex dep lift transfer Gym Equipment Shuttle Recovery Bilateral Squats Details with BUE assist on thighs Resistance 25# assisted, 12# unassisted Reps/Time Slight movements when unassisted, assisted back-> eccentric lowering Therapeutic Activity Therapeutic Activity squat/lateral scoot transfer Name w/c<>biodex, leg press, mat Reps/Minutes x6 Comments Min/Mod A today throughout transfers w/ support in front. Did well overall with multiple dep lifts required to complete each transfer. Neuro Re-Education Treatment Balance Activities Seated balance Surface EOB - black mat table Equipment 3.3lb red ball Comments 1. no UE support 2. UE straight out forward 3. lifting ball overhead PT-OP-T Assessment and Plan Start: 03/08/22 17:00 Freq: Status: Active Protocol: Document 03/25/23 14:30 DCW (Rec: 03/25/23 15:15 DCW [id number]) Physical Therapy Assessment Impairments Impairments Activity Tolerance,Balance, Coordination,Functional Activities,Functional Mobility ,Gait,Integument,Sensation, Soft Tissue Mobility,Strength, Tone,Transfers Goals Three Impairment Pt does not have any motor function throughout bilateral LEs Short Term Goal (STG) Pt to demonstrate 1/5 trace motor contraction in at least one quad in order to begin focus on LE mobility if neural functional return begins. STG Duration Met Residential Care Officer Goal (LTG) Pt to demonstrate right quad strength to at least 2/5, demonstrating movement into ROM in an antigravity position LTG Duration 05/14/23 - improving One Impairment Pt does not have an appropriate home exercise program Short Term Goal (STG) Pt to be independent and compliant with an appropriate HEP 07/30/22: progressing: resisted tricep ext, OH raises in w/c, supine HABD, added scaption OH B #2. STG Duration 04/15/23 Progressing Assessment Summary Assessment Pt did much better today on leg press than he has in the past. Significant improvement in eccentric control. Required assistance for stabilization during EOB activities. Physical Therapy Plan Frequency and Duration Frequency of Treatment 2x/Week Plan of Care Start Date 02/13/23 Plan of Care End Date 05/14/23 Therapeutic Interventions Therapeutic Interventions Aquatic Therapy,Balance Training,Coordination Training ,Gait Training,Home Exercise Program,Manual Therapy, Neuromuscular Re-education, Orthotic/Prosthetic Management ,Patient/Caregiver Education, Self-Care/Home Management, Sensory Integration,Soft Tissue Mobilization, Therapeutic Activities, Therapeutic Exercises, Wheelchair Management Next Visit Focus/Plan Next Note Type Treatment Note Next Visit Plan review strap positioning in stander as today's tx. *Stander next POC:Alternate Shuttle recovery and sit/stander. Continue UE and core strengthening, LE PROM and manual stretching. Transfers, mobility, LE ROM pt will benefit from breakdown of transfers to improve efficiency and mechanics, as well as working on more seated balance EOB.
--- NOTE | 2023-03-27 15:16 | PT.OTN ---
Current Diagnoses Paraplegia, unspecified (03/27/23) Other specified personal risk factors, not elsewhere classified (03/27/23) Other specified postprocedural states (03/27/23) Physical Therapy Treatment Note PT-OP-A Visit Information Start: 03/08/22 17:00 Freq: Status: Active Protocol: Document 03/27/23 14:37 DCW (Rec: 03/27/23 15:16 DCW [id number]) Out-Patient Physical Therapy Visit Information Visit Information Visit Type Treatment Note Visit Start Time 14:37 Visit Stop Time 15:15 Total Visit Minutes 38 Visit Number 96 Evaluation Information Evaluation Date 03/08/22 PT-OP-B Current Condition Start: 03/08/22 17:00 Freq: Status: Active Protocol: Document 03/08/22 11:15 DCW (Rec: 03/08/22 17:11 DCW [id number]) Current Condition History of Current Condition Onset Date 12/16/21 Current Complaints Paraplegia History of Current Condition Pt is a 71 year old male with a very unfortunate medical history. Pt was hiking [place] on 12/16/21 with a friend, finished up, drive back to his friend's home to drop him off, and noticed his left leg was collapsing. By the time pt drove home, both legs were giving out and numb. Pt was suddenly paralized from the waist down, was taken to the ED, and was flown to [facility] on 12/17/21. The following day, he underwent a laminectomy to relieve pressure from the thoracic epidural hematoma which had developed following his hike, which was pressing on his spinal cord. Following surgery , pt was in recovery for a week and was then transfered to rehab for 20 days, when he was finally discharged home in a wheelchair on 01/19/22. Pt reports his surgeon informed him that it is a possibility that he gets some return of nerve function. Has experienced some changes in his right LE, but has no motor function at this time from ~ T10 down. Minimal sensory return on right side, none on left. Pt has been anxious to get in to therapy and do everything he can to help return to function. Pt's , who attended his evaluation, notes that she has been doing a lot of PROM in his legs at night to keep everything moving. Pt can feel some stretching during PROM in his right leg. Pt has additionally already started occupational therapy, and has been practicing some seated stabilization. Pt transfers with a slide board, but notes it is difficult to do into his car, because he has to transfer upward at an incline. Treatment Goals Patient/Caregiver Goals I will do anything possible to get out of this wheelchair. My neurologist told me he has seen people recover from this , so I am not giving up hope. PT-OP-C Subjective Start: 03/08/22 17:00 Freq: Status: Active Protocol: Document 03/27/23 14:37 DCW (Rec: 03/27/23 15:16 DCW [id number]) OP-PT Subjective Patient Comments Patient Comments Pt reports he is planning to speak with his PCP to adjust his meds, he's been experiencing increased LE tone PT-OP-G Mobility & Gait Start: 03/08/22 17:00 Freq: Status: Active Protocol: Document 02/13/23 12:50 DCW (Rec: 02/13/23 13:22 DCW [id number]) OP Mobility Evaluation Transfers Bed to Chair Transfers Transfers using UE Car Transfers uses slide board, stabilizes front to back and prevent slide down board Wheelchair Management Type of Wheelchair Manual w/c PT-OP-H Neuro Start: 03/08/22 17:00 Freq: Status: Active Protocol: Document 02/13/23 12:50 DCW (Rec: 02/13/23 13:22 DCW [id number]) Sensation Evaluation Gross Sensation Gross Sensation Left LE Impaired,Right LE Impaired,Trunk Impaired Sensation Description Paresthesia,Numbness,Tingling, Pins & [place],Burning Dermatome Impairments L1,L2,L3,L4,L5,S1,S2,S3,S4-5 Location Details Right Leg Light Touch Impaired Sharp/Dull Impaired Deep Pressure Intact/Normal Hot/Cold Absent Protective Sensation Absent Proprioception (Position) Impaired Kinesthesia (Movement) Impaired Two-Point Discrimination Impaired Tactile Localization Impaired Stereognosis Impaired Left Leg Light Touch Absent Sharp/Dull Absent Deep Pressure Absent Hot/Cold Impaired Protective Sensation Absent Proprioception (Position) Absent Kinesthesia (Movement) Impaired Two-Point Discrimination Absent Tactile Localization Absent Stereognosis Absent Deep Tendon Reflex & Clonus Assessment Deep Tendon Reflex Right Achilles Deep Tendon Reflex 1+ Diminished Right Patellar Deep Tendon Reflex 2+ Normal Left Achilles Deep Tendon Reflex 1+ Diminished Left Patellar Deep Tendon Reflex 0 Absent Muscle Tone Tone Assessment Right Lower Extremity Flexor Tone Description Moderate Hypertonicity Extensor Tone Description Moderate Hypertonicity Left Lower Extremity Flexor Tone Description Moderate Hypertonicity Extensor Tone Description Moderate Hypertonicity PT-OP-J Posture/Palpation/Skin Start: 03/08/22 17:00 Freq: Status: Active Protocol: Document 02/13/23 12:50 DCW (Rec: 02/13/23 13:22 DCW [id number]) Posture Evaluation Comments Posture Comments Sitting EOB with good core control and no instability. Recovers from most directional pushing, although eventually LEs went into extension spasm and pt required assist x1 to return to sitting. PT-OP-M Strength Start: 08/21/22 15:38 Freq: Status: Active Protocol: Document 02/13/23 12:50 DCW (Rec: 02/13/23 13:22 DCW [id number]) Hip Strength Hip Manual Muscle Testing Right Extension (S1) 2- Poor- Adduction 2- Poor- Left Extension (S1) 1 Trace Adduction 0 Zero Knee Strength Knee Manual Muscle Testing Right Flexion (S2) 1 Trace Extension (L3) 1 Trace Left Flexion (S2) 1 Trace Extension (L3) 1 Trace Ankle/Foot Strength Ankle and Foot Manual Muscle Testing Right Plantarflexion (S1) 1 Trace Left Plantarflexion (S1) 1 Trace PT-OP-Q Treatments Start: 03/08/22 17:00 Freq: Status: Active Protocol: Document 03/27/23 14:37 DCW (Rec: 03/27/23 15:16 DCW [id number]) Cardio Equipment Recumbent Elliptical (Biodex) Duration (Minutes) 10 Resistance 8 Seat Position 10 Other w/c<->biodex dep lift transfer Therapeutic Activity Therapeutic Activity sit to stander Name Long 1st hole strap and longest lrg looped strap both on lower hook Reps/Minutes 2 stands Comments in //bars, 2 person (1 posterior pelvic/low back support, 2nd person stander control) Noted quad and gluteal firing with wt shifting forward/back/ lateral with BUE support on standing frame bars. Min cues for elongated posturing for TS ext. Improved decreased RLE flexor tone, ascend into standing with only 3 brief pauses to aclimate to flexor tone into LE extension responses. Used scale under feet to determine WB through legs. Maxed out ~100 lbs in standing . [ End ] squat/lateral scoot transfer Name w/c <-> Biodex Reps/Minutes x2 reps Comments Min/Mod today A throughout gait belt, support from behind on/off scifit. Cues to patient small pacing transition over/back w/ core and UEs. PT-OP-T Assessment and Plan Start: 03/08/22 17:00 Freq: Status: Active Protocol: Document 03/27/23 14:37 DCW (Rec: 03/27/23 15:16 DCW [id number]) Physical Therapy Assessment Impairments Impairments Activity Tolerance,Balance, Coordination,Functional Activities,Functional Mobility ,Gait,Integument,Sensation, Soft Tissue Mobility,Strength, Tone,Transfers Goals Three Impairment Pt does not have any motor function throughout bilateral LEs Short Term Goal (STG) Pt to demonstrate 1/5 trace motor contraction in at least one quad in order to begin focus on LE mobility if neural functional return begins. STG Duration Met Medical Secretary Teacher Goal (LTG) Pt to demonstrate right quad strength to at least 2/5, demonstrating movement into ROM in an antigravity position LTG Duration 05/14/23 - improving One Impairment Pt does not have an appropriate home exercise program Short Term Goal (STG) Pt to be independent and compliant with an appropriate HEP 07/30/22: progressing: resisted tricep ext, OH raises in w/c, supine HABD, added scaption OH B #2. STG Duration 04/15/23 Progressing Assessment Summary Assessment Pt doing well today, did well with standing frame today, had improved quality of putting weight through right foot. Physical Therapy Plan Frequency and Duration Frequency of Treatment 2x/Week Plan of Care Start Date 02/13/23 Plan of Care End Date 05/14/23 Therapeutic Interventions Therapeutic Interventions Aquatic Therapy,Balance Training,Coordination Training ,Gait Training,Home Exercise Program,Manual Therapy, Neuromuscular Re-education, Orthotic/Prosthetic Management ,Patient/Caregiver Education, Self-Care/Home Management, Sensory Integration,Soft Tissue Mobilization, Therapeutic Activities, Therapeutic Exercises, Wheelchair Management Next Visit Focus/Plan Next Note Type Treatment Note Next Visit Plan review strap positioning in stander as today's tx. *Leg press next POC:Alternate Shuttle recovery and sit/stander. Continue UE and core strengthening, LE PROM and manual stretching. Transfers, mobility, LE ROM pt will benefit from breakdown of transfers to improve efficiency and mechanics, as well as working on more seated balance EOB.
--- NOTE | 2023-04-01 14:36 | PT.OTN ---
Current Diagnoses Paraplegia, unspecified (04/01/23) Other specified personal risk factors, not elsewhere classified (04/01/23) Other specified postprocedural states (04/01/23) Physical Therapy Treatment Note PT-OP-A Visit Information Start: 03/08/22 17:00 Freq: Status: Active Protocol: Document 04/01/23 13:48 SP (Rec: 04/01/23 15:22 SP [id number]) Out-Patient Physical Therapy Visit Information Visit Information Visit Type Treatment Note Visit Start Time 13:48 Visit Stop Time 14:36 Total Visit Minutes 48 Visit Number 97 Number of BAGGAGE PORTER Visits 1 Evaluation Information Evaluation Date 03/08/22 PT-OP-B Current Condition Start: 03/08/22 17:00 Freq: Status: Active Protocol: Document 03/08/22 11:15 DCW (Rec: 03/08/22 17:11 DCW [id number]) Current Condition History of Current Condition Onset Date 12/16/21 Current Complaints Paraplegia History of Current Condition Pt is a 71 year old male with a very unfortunate medical history. Pt was hiking [place] on 12/16/21 with a friend, finished up, drive back to his friend's home to drop him off, and noticed his left leg was collapsing. By the time pt drove home, both legs were giving out and numb. Pt was suddenly paralized from the waist down, was taken to the ED, and was flown to [facility] on 12/17/21. The following day, he underwent a laminectomy to relieve pressure from the thoracic epidural hematoma which had developed following his hike, which was pressing on his spinal cord. Following surgery , pt was in recovery for a week and was then transfered to rehab for 20 days, when he was finally discharged home in a wheelchair on 01/19/22. Pt reports his surgeon informed him that it is a possibility that he gets some return of nerve function. Has experienced some changes in his right LE, but has no motor function at this time from ~ T10 down. Minimal sensory return on right side, none on left. Pt has been anxious to get in to therapy and do everything he can to help return to function. Pt's , who attended his evaluation, notes that she has been doing a lot of PROM in his legs at night to keep everything moving. Pt can feel some stretching during PROM in his right leg. Pt has additionally already started occupational therapy, and has been practicing some seated stabilization. Pt transfers with a slide board, but notes it is difficult to do into his car, because he has to transfer upward at an incline. Treatment Goals Patient/Caregiver Goals I will do anything possible to get out of this wheelchair. My neurologist told me he has seen people recover from this , so I am not giving up hope. PT-OP-C Subjective Start: 03/08/22 17:00 Freq: Status: Active Protocol: Document 04/01/23 13:48 SP (Rec: 04/01/23 15:22 SP [id number]) OP-PT Subjective Patient Comments Patient Comments Pt reports he is planning to speak with his PCP Dr Yates to adjust his meds as Gabapentin to assist decrease tone, allow him to sleep well with less spasming wake him up but still allow mobility support and not feel sedated, he's been experiencing increased extensor LE tone. PT-OP-G Mobility & Gait Start: 03/08/22 17:00 Freq: Status: Active Protocol: Document 02/13/23 12:50 DCW (Rec: 02/13/23 13:22 DCW [id number]) OP Mobility Evaluation Transfers Bed to Chair Transfers Transfers using UE Car Transfers uses slide board, stabilizes front to back and prevent slide down board Wheelchair Management Type of Wheelchair Manual w/c PT-OP-H Neuro Start: 03/08/22 17:00 Freq: Status: Active Protocol: Document 02/13/23 12:50 DCW (Rec: 02/13/23 13:22 DCW [id number]) Sensation Evaluation Gross Sensation Gross Sensation Left LE Impaired,Right LE Impaired,Trunk Impaired Sensation Description Paresthesia,Numbness,Tingling, Pins & [place],Burning Dermatome Impairments L1,L2,L3,L4,L5,S1,S2,S3,S4-5 Location Details Right Leg Light Touch Impaired Sharp/Dull Impaired Deep Pressure Intact/Normal Hot/Cold Absent Protective Sensation Absent Proprioception (Position) Impaired Kinesthesia (Movement) Impaired Two-Point Discrimination Impaired Tactile Localization Impaired Stereognosis Impaired Left Leg Light Touch Absent Sharp/Dull Absent Deep Pressure Absent Hot/Cold Impaired Protective Sensation Absent Proprioception (Position) Absent Kinesthesia (Movement) Impaired Two-Point Discrimination Absent Tactile Localization Absent Stereognosis Absent Deep Tendon Reflex & Clonus Assessment Deep Tendon Reflex Right Achilles Deep Tendon Reflex 1+ Diminished Right Patellar Deep Tendon Reflex 2+ Normal Left Achilles Deep Tendon Reflex 1+ Diminished Left Patellar Deep Tendon Reflex 0 Absent Muscle Tone Tone Assessment Right Lower Extremity Flexor Tone Description Moderate Hypertonicity Extensor Tone Description Moderate Hypertonicity Left Lower Extremity Flexor Tone Description Moderate Hypertonicity Extensor Tone Description Moderate Hypertonicity PT-OP-J Posture/Palpation/Skin Start: 03/08/22 17:00 Freq: Status: Active Protocol: Document 02/13/23 12:50 DCW (Rec: 02/13/23 13:22 DCW [id number]) Posture Evaluation Comments Posture Comments Sitting EOB with good core control and no instability. Recovers from most directional pushing, although eventually LEs went into extension spasm and pt required assist x1 to return to sitting. PT-OP-M Strength Start: 08/21/22 15:38 Freq: Status: Active Protocol: Document 02/13/23 12:50 DCW (Rec: 02/13/23 13:22 DCW [id number]) Hip Strength Hip Manual Muscle Testing Right Extension (S1) 2- Poor- Adduction 2- Poor- Left Extension (S1) 1 Trace Adduction 0 Zero Knee Strength Knee Manual Muscle Testing Right Flexion (S2) 1 Trace Extension (L3) 1 Trace Left Flexion (S2) 1 Trace Extension (L3) 1 Trace Ankle/Foot Strength Ankle and Foot Manual Muscle Testing Right Plantarflexion (S1) 1 Trace Left Plantarflexion (S1) 1 Trace PT-OP-Q Treatments Start: 03/08/22 17:00 Freq: Status: Active Protocol: Document 04/01/23 13:48 SP (Rec: 04/01/23 15:22 SP [id number]) Cardio Equipment Recumbent Elliptical (Biodex) Duration (Minutes) 10 Resistance 8 BUE/BLE> 1 (LEs only with UE assist needed) Seat Position 10>8 Other w/c<->biodex Mod/Max A lateral scoot tfr block anterior 1 LE & GB Assist Therapeutic Activity Therapeutic Activity Seated Stabilization Name balloon volley hit BUE dowel Reps/Minutes 4 min Comments Stabilization flex/ext angled lateral, slight rotation. Cues for slower pacing soft volley to support increase trunk control. Pt Mod A recover retro lean x3 and self contact lap forward lean reaching up/ forward multiple times. squat/lateral scoot transfer Name w/c <-> L Biodex, w/c<> mat table Reps/Minutes x8 reps total (self use BUEs on seat/biodex front handle Comments Mod/Max to biodex today A through gait belt from front, block anterior R knee. Initial wt shift pulled to stand therapist Heavy Max A and firm block anterior R>L LE prevented buckling completely, but impressed some quad/glut firing and BUE heavy support to complete Mini stand/wt shift. 15%>CGA lateral scoot to/from mat table, small multiple scoot slower pacing transition over/back wt shift fwd with improved stability core and UE support. PT-OP-T Assessment and Plan Start: 03/08/22 17:00 Freq: Status: Active Protocol: Document 04/01/23 13:48 SP (Rec: 04/01/23 15:22 SP [id number]) Physical Therapy Assessment Goals Three Impairment Pt does not have any motor function throughout bilateral LEs Short Term Goal (STG) Pt to demonstrate 1/5 trace motor contraction in at least one quad in order to begin focus on LE mobility if neural functional return begins. STG Duration Met Director Trust Goal (LTG) Pt to demonstrate right quad strength to at least 2/5, demonstrating movement into ROM in an antigravity position LTG Duration 05/14/23 - improving One Impairment Pt does not have an appropriate home exercise program Short Term Goal (STG) Pt to be independent and compliant with an appropriate HEP 07/30/22: progressing: resisted tricep ext, OH raises in w/c, supine HABD, added scaption OH B #2. STG Duration 04/15/23 Progressing Assessment Summary Assessment Pt better understanding of slower smaller lateral scoots demonstrated with noted heavier BUE support next to lap to transfer to/from biodex and mat table. More support required for biodex due to elevated from w/c surface. Pt still demonstrates weakness in trunk stability but if focuses on slower pacing transitions improves less amount assist required. BAGGAGE PORTER encourages to do same at home with to increase his independence and progress core stabilization. pt will benefit from continued breakdown of transfers to improve efficiency and mechanics, as well as working on more seated balance EOB. Physical Therapy Plan Frequency and Duration Frequency of Treatment 2x/Week Plan of Care Start Date 02/13/23 Plan of Care End Date 05/14/23 Therapeutic Interventions Therapeutic Interventions Aquatic Therapy,Balance Training,Coordination Training ,Gait Training,Home Exercise Program,Manual Therapy, Neuromuscular Re-education, Orthotic/Prosthetic Management ,Patient/Caregiver Education, Self-Care/Home Management, Sensory Integration,Soft Tissue Mobilization, Therapeutic Activities, Therapeutic Exercises, Wheelchair Management Next Visit Focus/Plan Next Note Type Treatment Note Next Visit Plan *Longest loop/straps for stander to support posterior pelvic support both on lower hangersmith bar hook. *Leg press next POC:Alternate Shuttle recovery and sit/stander. Continue UE and core strengthening, LE PROM and manual stretching. Transfers, mobility, LE ROM, pt will benefit from continued breakdown of transfers to improve efficiency and mechanics, as well as working on more seated balance EOB.
--- NOTE | 2023-04-08 15:52 | PT.OTN ---
Current Diagnoses Paraplegia, unspecified (04/08/23) Other specified personal risk factors, not elsewhere classified (04/08/23) Other specified postprocedural states (04/08/23) Physical Therapy Treatment Note PT-OP-A Visit Information Start: 03/08/22 17:00 Freq: Status: Active Protocol: Document 04/08/23 15:18 DCW (Rec: 04/08/23 15:51 DCW [id number]) Out-Patient Physical Therapy Visit Information Visit Information Visit Type Treatment Note Visit Start Time 15:18 Visit Stop Time 16:00 Total Visit Minutes 49 Visit Number 98 Number of LOAD BLOCKER Visits 0 Evaluation Information Evaluation Date 03/08/22 PT-OP-B Current Condition Start: 03/08/22 17:00 Freq: Status: Active Protocol: Document 03/08/22 11:15 DCW (Rec: 03/08/22 17:11 DCW [id number]) Current Condition History of Current Condition Onset Date 12/16/21 Current Complaints Paraplegia History of Current Condition Pt is a 71 year old male with a very unfortunate medical history. Pt was hiking [place] on 12/16/21 with a friend, finished up, drive back to his friend's home to drop him off, and noticed his left leg was collapsing. By the time pt drove home, both legs were giving out and numb. Pt was suddenly paralized from the waist down, was taken to the ED, and was flown to [facility] on 12/17/21. The following day, he underwent a laminectomy to relieve pressure from the thoracic epidural hematoma which had developed following his hike, which was pressing on his spinal cord. Following surgery , pt was in recovery for a week and was then transfered to rehab for 20 days, when he was finally discharged home in a wheelchair on 01/19/22. Pt reports his surgeon informed him that it is a possibility that he gets some return of nerve function. Has experienced some changes in his right LE, but has no motor function at this time from ~ T10 down. Minimal sensory return on right side, none on left. Pt has been anxious to get in to therapy and do everything he can to help return to function. Pt's , who attended his evaluation, notes that she has been doing a lot of PROM in his legs at night to keep everything moving. Pt can feel some stretching during PROM in his right leg. Pt has additionally already started occupational therapy, and has been practicing some seated stabilization. Pt transfers with a slide board, but notes it is difficult to do into his car, because he has to transfer upward at an incline. Treatment Goals Patient/Caregiver Goals I will do anything possible to get out of this wheelchair. My neurologist told me he has seen people recover from this , so I am not giving up hope. PT-OP-C Subjective Start: 03/08/22 17:00 Freq: Status: Active Protocol: Document 04/08/23 15:18 DCW (Rec: 04/08/23 15:51 DCW [id number]) OP-PT Subjective Patient Comments Patient Comments I don't know why, but I've felt a little better the past couple of days. PT-OP-G Mobility & Gait Start: 03/08/22 17:00 Freq: Status: Active Protocol: Document 02/13/23 12:50 DCW (Rec: 02/13/23 13:22 DCW [id number]) OP Mobility Evaluation Transfers Bed to Chair Transfers Transfers using UE Car Transfers uses slide board, stabilizes front to back and prevent slide down board Wheelchair Management Type of Wheelchair Manual w/c PT-OP-H Neuro Start: 03/08/22 17:00 Freq: Status: Active Protocol: Document 02/13/23 12:50 DCW (Rec: 02/13/23 13:22 DCW [id number]) Sensation Evaluation Gross Sensation Gross Sensation Left LE Impaired,Right LE Impaired,Trunk Impaired Sensation Description Paresthesia,Numbness,Tingling, Pins & [place],Burning Dermatome Impairments L1,L2,L3,L4,L5,S1,S2,S3,S4-5 Location Details Right Leg Light Touch Impaired Sharp/Dull Impaired Deep Pressure Intact/Normal Hot/Cold Absent Protective Sensation Absent Proprioception (Position) Impaired Kinesthesia (Movement) Impaired Two-Point Discrimination Impaired Tactile Localization Impaired Stereognosis Impaired Left Leg Light Touch Absent Sharp/Dull Absent Deep Pressure Absent Hot/Cold Impaired Protective Sensation Absent Proprioception (Position) Absent Kinesthesia (Movement) Impaired Two-Point Discrimination Absent Tactile Localization Absent Stereognosis Absent Deep Tendon Reflex & Clonus Assessment Deep Tendon Reflex Right Achilles Deep Tendon Reflex 1+ Diminished Right Patellar Deep Tendon Reflex 2+ Normal Left Achilles Deep Tendon Reflex 1+ Diminished Left Patellar Deep Tendon Reflex 0 Absent Muscle Tone Tone Assessment Right Lower Extremity Flexor Tone Description Moderate Hypertonicity Extensor Tone Description Moderate Hypertonicity Left Lower Extremity Flexor Tone Description Moderate Hypertonicity Extensor Tone Description Moderate Hypertonicity PT-OP-J Posture/Palpation/Skin Start: 03/08/22 17:00 Freq: Status: Active Protocol: Document 02/13/23 12:50 DCW (Rec: 02/13/23 13:22 DCW [id number]) Posture Evaluation Comments Posture Comments Sitting EOB with good core control and no instability. Recovers from most directional pushing, although eventually LEs went into extension spasm and pt required assist x1 to return to sitting. PT-OP-M Strength Start: 08/21/22 15:38 Freq: Status: Active Protocol: Document 02/13/23 12:50 DCW (Rec: 02/13/23 13:22 DCW [id number]) Hip Strength Hip Manual Muscle Testing Right Extension (S1) 2- Poor- Adduction 2- Poor- Left Extension (S1) 1 Trace Adduction 0 Zero Knee Strength Knee Manual Muscle Testing Right Flexion (S2) 1 Trace Extension (L3) 1 Trace Left Flexion (S2) 1 Trace Extension (L3) 1 Trace Ankle/Foot Strength Ankle and Foot Manual Muscle Testing Right Plantarflexion (S1) 1 Trace Left Plantarflexion (S1) 1 Trace PT-OP-Q Treatments Start: 03/08/22 17:00 Freq: Status: Active Protocol: Document 04/08/23 15:18 DCW (Rec: 04/08/23 15:51 DCW [id number]) Cardio Equipment Recumbent Elliptical (Biodex) Duration (Minutes) 10 Resistance 8 Seat Position 10 Other w/c<->biodex Mod/Max A Therapeutic Activity Therapeutic Activity sit to stander Name Long 1st hole strap and longest lrg looped strap both on lower hook Reps/Minutes 1 stand Comments in //bars, 2 person (1 posterior pelvic/low back support, 2nd person stander control) Noted quad and gluteal firing with wt shifting forward/back/ lateral with BUE support on standing frame bars. Min cues for elongated posturing for TS ext. Improved decreased RLE flexor tone, ascend into standing with only 3 brief pauses to acclimate to flexor tone into LE extension responses. [ End ] squat/lateral scoot transfer Name w/c <-> Biodex Reps/Minutes x2 reps Comments Min/Mod today A throughout gait belt, support from behind on/off scifit. Cues to patient small pacing transition over/back w/ core and UEs. PT-OP-T Assessment and Plan Start: 03/08/22 17:00 Freq: Status: Active Protocol: Document 04/08/23 15:18 DCW (Rec: 04/08/23 15:51 DCW [id number]) Physical Therapy Assessment Impairments Impairments Activity Tolerance,Balance, Coordination,Functional Activities,Functional Mobility ,Gait,Integument,Sensation, Soft Tissue Mobility,Strength, Tone,Transfers Goals Three Impairment Pt does not have any motor function throughout bilateral LEs Short Term Goal (STG) Pt to demonstrate 1/5 trace motor contraction in at least one quad in order to begin focus on LE mobility if neural functional return begins. STG Duration Met Shelter Goal (LTG) Pt to demonstrate right quad strength to at least 2/5, demonstrating movement into ROM in an antigravity position LTG Duration 05/14/23 - improving One Impairment Pt does not have an appropriate home exercise program Short Term Goal (STG) Pt to be independent and compliant with an appropriate HEP 07/30/22: progressing: resisted tricep ext, OH raises in w/c, supine HABD, added scaption OH B #2. STG Duration 04/15/23 Progressing Assessment Summary Assessment Pt continues to show improvement with standing frame, much faster adjustment into standing, minimal lower extremity spasming limiting sit<->stand. Physical Therapy Plan Frequency and Duration Frequency of Treatment 2x/Week Plan of Care Start Date 02/13/23 Plan of Care End Date 05/14/23 Therapeutic Interventions Therapeutic Interventions Aquatic Therapy,Balance Training,Coordination Training ,Gait Training,Home Exercise Program,Manual Therapy, Neuromuscular Re-education, Orthotic/Prosthetic Management ,Patient/Caregiver Education, Self-Care/Home Management, Sensory Integration,Soft Tissue Mobilization, Therapeutic Activities, Therapeutic Exercises, Wheelchair Management Next Visit Focus/Plan Next Note Type Treatment Note Next Visit Plan *Longest loop/straps for stander to support posterior pelvic support both on lower sign hanger supervisor bar hook. *Leg press next POC:Alternate Shuttle recovery and sit/stander. Continue UE and core strengthening, LE PROM and manual stretching. Transfers, mobility, LE ROM, pt will benefit from continued breakdown of transfers to improve efficiency and mechanics, as well as working on more seated balance EOB.
--- NOTE | 2023-04-10 15:16 | PT.OTN ---
Current Diagnoses Paraplegia, unspecified (04/10/23) Other specified personal risk factors, not elsewhere classified (04/10/23) Other specified postprocedural states (04/10/23) Physical Therapy Treatment Note PT-OP-A Visit Information Start: 03/08/22 17:00 Freq: Status: Active Protocol: Document 04/10/23 14:34 SP (Rec: 04/10/23 15:51 SP [id number]) Out-Patient Physical Therapy Visit Information Visit Information Visit Type Treatment Note Visit Start Time 14:34 Visit Stop Time 15:16 Total Visit Minutes 42 Visit Number 99 Number of DISK SHARPENER Visits 1 Evaluation Information Evaluation Date 03/08/22 PT-OP-B Current Condition Start: 03/08/22 17:00 Freq: Status: Active Protocol: Document 03/08/22 11:15 DCW (Rec: 03/08/22 17:11 DCW [id number]) Current Condition History of Current Condition Onset Date 12/16/21 Current Complaints Paraplegia History of Current Condition Pt is a 71 year old male with a very unfortunate medical history. Pt was hiking [employer] on 12/16/21 with a friend, finished up, drive back to his friend's home to drop him off, and noticed his left leg was collapsing. By the time pt drove home, both legs were giving out and numb. Pt was suddenly paralized from the waist down, was taken to the ED, and was flown to [facility] on 12/17/21. The following day, he underwent a laminectomy to relieve pressure from the thoracic epidural hematoma which had developed following his hike, which was pressing on his spinal cord. Following surgery , pt was in recovery for a week and was then transfered to rehab for 20 days, when he was finally discharged home in a wheelchair on 01/19/22. Pt reports his surgeon informed him that it is a possibility that he gets some return of nerve function. Has experienced some changes in his right LE, but has no motor function at this time from ~ T10 down. Minimal sensory return on right side, none on left. Pt has been anxious to get in to therapy and do everything he can to help return to function. Pt's , who attended his evaluation, notes that she has been doing a lot of PROM in his legs at night to keep everything moving. Pt can feel some stretching during PROM in his right leg. Pt has additionally already started occupational therapy, and has been practicing some seated stabilization. Pt transfers with a slide board, but notes it is difficult to do into his car, because he has to transfer upward at an incline. Treatment Goals Patient/Caregiver Goals I will do anything possible to get out of this wheelchair. My neurologist told me he has seen people recover from this , so I am not giving up hope. PT-OP-C Subjective Start: 03/08/22 17:00 Freq: Status: Active Protocol: Document 04/10/23 14:34 SP (Rec: 04/10/23 15:51 SP [id number]) OP-PT Subjective Patient Comments Patient Comments Pt reports has tried not using slide board from bed to w/c at home, nearby to help if needed, would like to get to being able to do himself without help and no slideboard. He commented/asked about a lower back methods analyst data processing w/c if would be able/benefit for him with better trunk control now. Also saw an efforted lever pushing w/c for strengthing uphills progress mobility. . PT-OP-G Mobility & Gait Start: 03/08/22 17:00 Freq: Status: Active Protocol: Document 02/13/23 12:50 DCW (Rec: 02/13/23 13:22 DCW [id number]) OP Mobility Evaluation Transfers Bed to Chair Transfers Transfers using UE Car Transfers uses slide board, stabilizes front to back and prevent slide down board Wheelchair Management Type of Wheelchair Manual w/c PT-OP-H Neuro Start: 03/08/22 17:00 Freq: Status: Active Protocol: Document 02/13/23 12:50 DCW (Rec: 02/13/23 13:22 DCW [id number]) Sensation Evaluation Gross Sensation Gross Sensation Left LE Impaired,Right LE Impaired,Trunk Impaired Sensation Description Paresthesia,Numbness,Tingling, Pins & [place],Burning Dermatome Impairments L1,L2,L3,L4,L5,S1,S2,S3,S4-5 Location Details Right Leg Light Touch Impaired Sharp/Dull Impaired Deep Pressure Intact/Normal Hot/Cold Absent Protective Sensation Absent Proprioception (Position) Impaired Kinesthesia (Movement) Impaired Two-Point Discrimination Impaired Tactile Localization Impaired Stereognosis Impaired Left Leg Light Touch Absent Sharp/Dull Absent Deep Pressure Absent Hot/Cold Impaired Protective Sensation Absent Proprioception (Position) Absent Kinesthesia (Movement) Impaired Two-Point Discrimination Absent Tactile Localization Absent Stereognosis Absent Deep Tendon Reflex & Clonus Assessment Deep Tendon Reflex Right Achilles Deep Tendon Reflex 1+ Diminished Right Patellar Deep Tendon Reflex 2+ Normal Left Achilles Deep Tendon Reflex 1+ Diminished Left Patellar Deep Tendon Reflex 0 Absent Muscle Tone Tone Assessment Right Lower Extremity Flexor Tone Description Moderate Hypertonicity Extensor Tone Description Moderate Hypertonicity Left Lower Extremity Flexor Tone Description Moderate Hypertonicity Extensor Tone Description Moderate Hypertonicity PT-OP-J Posture/Palpation/Skin Start: 03/08/22 17:00 Freq: Status: Active Protocol: Document 02/13/23 12:50 DCW (Rec: 02/13/23 13:22 DCW [id number]) Posture Evaluation Comments Posture Comments Sitting EOB with good core control and no instability. Recovers from most directional pushing, although eventually LEs went into extension spasm and pt required assist x1 to return to sitting. PT-OP-M Strength Start: 08/21/22 15:38 Freq: Status: Active Protocol: Document 02/13/23 12:50 DCW (Rec: 02/13/23 13:22 DCW [id number]) Hip Strength Hip Manual Muscle Testing Right Extension (S1) 2- Poor- Adduction 2- Poor- Left Extension (S1) 1 Trace Adduction 0 Zero Knee Strength Knee Manual Muscle Testing Right Flexion (S2) 1 Trace Extension (L3) 1 Trace Left Flexion (S2) 1 Trace Extension (L3) 1 Trace Ankle/Foot Strength Ankle and Foot Manual Muscle Testing Right Plantarflexion (S1) 1 Trace Left Plantarflexion (S1) 1 Trace PT-OP-Q Treatments Start: 03/08/22 17:00 Freq: Status: Active Protocol: Document 04/10/23 14:34 SP (Rec: 04/10/23 15:51 SP [id number]) Cardio Equipment Recumbent Elliptical (Biodex) Duration (Minutes) 10 Resistance 8 Seat Position 10 Other w/c<->biodex CG/Mod A Therapeutic Activity Therapeutic Activity squat/lateral scoot transfer Name w/c <-> Biodex (Right side), w /c<>elevated table (+yoga mat top) Reps/Minutes x10 reps total (- rests every 3 over/back for tiring recovery Comments Min/ModA w/c> biodex /c support throughout gait belt & anterior LLE support needed boost on elevated biodex approx 2. Biodex>w/c 5%>CGA ( therapist LE 1 from ant knee and light contact GB for safety support if needed. Cues to patient scoot fwd, small lateral scoot pacing transition over/back w/ maintain trunk flexion utilizing B scapular complex, core for stability. Improves with reps PT-OP-T Assessment and Plan Start: 03/08/22 17:00 Freq: Status: Active Protocol: Document 04/10/23 14:34 SP (Rec: 04/10/23 15:51 SP [id number]) Physical Therapy Assessment Goals Three Impairment Pt does not have any motor function throughout bilateral LEs Short Term Goal (STG) Pt to demonstrate 1/5 trace motor contraction in at least one quad in order to begin focus on LE mobility if neural functional return begins. STG Duration Met Front Line Leader Goal (LTG) Pt to demonstrate right quad strength to at least 2/5, demonstrating movement into ROM in an antigravity position LTG Duration 05/14/23 - improving One Impairment Pt does not have an appropriate home exercise program Short Term Goal (STG) Pt to be independent and compliant with an appropriate HEP 07/30/22: progressing: resisted tricep ext, OH raises in w/c, supine HABD, added scaption OH B #2. STG Duration 04/15/23 Progressing Assessment Summary Assessment Tx focused on skilled transfers this tx with more trunk efforted stability and BUE support transitioning instructioning. He improved lateral scoot transfers this tx, instructional cues for trunk wt shift forward front w /c, LE closest to next surface little more fwd, BUE positioning close to lateral pelvis small scoot transitions , demonstrates improved more controlled pelvic scoots boidex>w/c CGA, w/c>boidex Mod A for added support transition 2 elevated surface , improved wiht reps trunk fwd and BUE closest to pelvis. LOB x2 due to pushed off R w/c tire and it rolled back little creating over wt shift trunk flexion but recovery Min A (anterior GB and anterior L>R k nees) and instructed stop and assess trunk alignment. Pt would benefit from continued repetitions of safe transfers with caregiver training with discussed with pt and for confidence of increase I provide skilled training for success carryover at home. Pt in agreement and wants to progress to be I without slideboard. Physical Therapy Plan Frequency and Duration Frequency of Treatment 2x/Week Plan of Care Start Date 02/13/23 Plan of Care End Date 05/14/23 Therapeutic Interventions Therapeutic Interventions Aquatic Therapy,Balance Training,Coordination Training ,Gait Training,Home Exercise Program,Manual Therapy, Neuromuscular Re-education, Orthotic/Prosthetic Management ,Patient/Caregiver Education, Self-Care/Home Management, Sensory Integration,Soft Tissue Mobilization, Therapeutic Activities, Therapeutic Exercises, Wheelchair Management Next Visit Focus/Plan Next Note Type Treatment Note Next Visit Plan *Longest loop/straps for stander to support posterior pelvic support both on lower paperhanger bar hook. *Leg press next POC:Alternate Shuttle recovery and sit/stander. Continue UE and core strengthening, LE PROM and manual stretching. Transfers, mobility, LE ROM, pt will benefit from continued breakdown of transfers to improve efficiency and mechanics, as well as working on more seated balance EOB.
--- NOTE | 2023-04-15 15:50 | PT.OTN ---
Current Diagnoses Paraplegia, unspecified (04/15/23) Other specified personal risk factors, not elsewhere classified (04/15/23) Other specified postprocedural states (04/15/23) Physical Therapy Treatment Note PT-OP-A Visit Information Start: 03/08/22 17:00 Freq: Status: Active Protocol: Document 04/15/23 15:19 DCW (Rec: 04/15/23 15:50 DCW [id number]) Out-Patient Physical Therapy Visit Information Visit Information Visit Type Treatment Note Visit Start Time 15:19 Visit Stop Time 16:00 Total Visit Minutes 41 Visit Number 100 Number of FINISH PRODUCTION MANAGER Visits 0 Evaluation Information Evaluation Date 03/08/22 PT-OP-B Current Condition Start: 03/08/22 17:00 Freq: Status: Active Protocol: Document 03/08/22 11:15 DCW (Rec: 03/08/22 17:11 DCW [id number]) Current Condition History of Current Condition Onset Date 12/16/21 Current Complaints Paraplegia History of Current Condition Pt is a 71 year old male with a very unfortunate medical history. Pt was hiking [employer] on 12/16/21 with a friend, finished up, drive back to his friend's home to drop him off, and noticed his left leg was collapsing. By the time pt drove home, both legs were giving out and numb. Pt was suddenly paralized from the waist down, was taken to the ED, and was flown to [facility] on 12/17/21. The following day, he underwent a laminectomy to relieve pressure from the thoracic epidural hematoma which had developed following his hike, which was pressing on his spinal cord. Following surgery , pt was in recovery for a week and was then transfered to rehab for 20 days, when he was finally discharged home in a wheelchair on 01/19/22. Pt reports his surgeon informed him that it is a possibility that he gets some return of nerve function. Has experienced some changes in his right LE, but has no motor function at this time from ~ T10 down. Minimal sensory return on right side, none on left. Pt has been anxious to get in to therapy and do everything he can to help return to function. Pt's , who attended his evaluation, notes that she has been doing a lot of PROM in his legs at night to keep everything moving. Pt can feel some stretching during PROM in his right leg. Pt has additionally already started occupational therapy, and has been practicing some seated stabilization. Pt transfers with a slide board, but notes it is difficult to do into his car, because he has to transfer upward at an incline. Treatment Goals Patient/Caregiver Goals I will do anything possible to get out of this wheelchair. My neurologist told me he has seen people recover from this , so I am not giving up hope. PT-OP-C Subjective Start: 03/08/22 17:00 Freq: Status: Active Protocol: Document 04/15/23 15:19 DCW (Rec: 04/15/23 15:50 DCW [id number]) OP-PT Subjective Patient Comments Patient Comments Pt has been feeling much more confident with his transfers at home after doing more practice here last week PT-OP-G Mobility & Gait Start: 03/08/22 17:00 Freq: Status: Active Protocol: Document 02/13/23 12:50 DCW (Rec: 02/13/23 13:22 DCW [id number]) OP Mobility Evaluation Transfers Bed to Chair Transfers Transfers using UE Car Transfers uses slide board, stabilizes front to back and prevent slide down board Wheelchair Management Type of Wheelchair Manual w/c PT-OP-H Neuro Start: 03/08/22 17:00 Freq: Status: Active Protocol: Document 02/13/23 12:50 DCW (Rec: 02/13/23 13:22 DCW [id number]) Sensation Evaluation Gross Sensation Gross Sensation Left LE Impaired,Right LE Impaired,Trunk Impaired Sensation Description Paresthesia,Numbness,Tingling, Pins & [place],Burning Dermatome Impairments L1,L2,L3,L4,L5,S1,S2,S3,S4-5 Location Details Right Leg Light Touch Impaired Sharp/Dull Impaired Deep Pressure Intact/Normal Hot/Cold Absent Protective Sensation Absent Proprioception (Position) Impaired Kinesthesia (Movement) Impaired Two-Point Discrimination Impaired Tactile Localization Impaired Stereognosis Impaired Left Leg Light Touch Absent Sharp/Dull Absent Deep Pressure Absent Hot/Cold Impaired Protective Sensation Absent Proprioception (Position) Absent Kinesthesia (Movement) Impaired Two-Point Discrimination Absent Tactile Localization Absent Stereognosis Absent Deep Tendon Reflex & Clonus Assessment Deep Tendon Reflex Right Achilles Deep Tendon Reflex 1+ Diminished Right Patellar Deep Tendon Reflex 2+ Normal Left Achilles Deep Tendon Reflex 1+ Diminished Left Patellar Deep Tendon Reflex 0 Absent Muscle Tone Tone Assessment Right Lower Extremity Flexor Tone Description Moderate Hypertonicity Extensor Tone Description Moderate Hypertonicity Left Lower Extremity Flexor Tone Description Moderate Hypertonicity Extensor Tone Description Moderate Hypertonicity PT-OP-J Posture/Palpation/Skin Start: 03/08/22 17:00 Freq: Status: Active Protocol: Document 02/13/23 12:50 DCW (Rec: 02/13/23 13:22 DCW [id number]) Posture Evaluation Comments Posture Comments Sitting EOB with good core control and no instability. Recovers from most directional pushing, although eventually LEs went into extension spasm and pt required assist x1 to return to sitting. PT-OP-M Strength Start: 08/21/22 15:38 Freq: Status: Active Protocol: Document 02/13/23 12:50 DCW (Rec: 02/13/23 13:22 DCW [id number]) Hip Strength Hip Manual Muscle Testing Right Extension (S1) 2- Poor- Adduction 2- Poor- Left Extension (S1) 1 Trace Adduction 0 Zero Knee Strength Knee Manual Muscle Testing Right Flexion (S2) 1 Trace Extension (L3) 1 Trace Left Flexion (S2) 1 Trace Extension (L3) 1 Trace Ankle/Foot Strength Ankle and Foot Manual Muscle Testing Right Plantarflexion (S1) 1 Trace Left Plantarflexion (S1) 1 Trace PT-OP-Q Treatments Start: 03/08/22 17:00 Freq: Status: Active Protocol: Document 04/15/23 15:19 DCW (Rec: 04/15/23 15:50 DCW [id number]) Cardio Equipment Recumbent Elliptical (Biodex) Duration (Minutes) 10 Resistance 8 Seat Position 10 Other w/c<->biodex CG/Mod A Therapeutic Activity Therapeutic Activity sit to stander Name Long 1st hole strap and longest lrg looped strap both on lower hook Reps/Minutes 1 stand Comments in //bars, 2 person (1 posterior pelvic/low back support, 2nd person stander control) Noted quad and gluteal firing with wt shifting forward/back/ lateral with BUE support on standing frame bars. Min cues for elongated posturing for TS ext. Improved decreased RLE flexor tone, ascend into standing with only 3 brief pauses to acclimate to flexor tone into LE extension responses. [ End ] squat/lateral scoot transfer Name w/c <-> Biodex (Left side) Reps/Minutes x5 reps total Comments Min/ModA w/c<->biodex /c support throughout gait belt & anterior LLE support needed boost on elevated biodex approx 2. Biodex>w/c 5%>CGA ( therapist LE 1 from ant knee and light contact GB for safety support if needed. Cues to patient scoot fwd, small lateral scoot pacing transition over/back w/ maintain trunk flexion utilizing B scapular complex, core for stability. Improves with reps PT-OP-T Assessment and Plan Start: 03/08/22 17:00 Freq: Status: Active Protocol: Document 04/15/23 15:19 DCW (Rec: 04/15/23 15:50 DCW [id number]) Physical Therapy Assessment Impairments Impairments Activity Tolerance,Balance, Coordination,Functional Activities,Functional Mobility ,Gait,Integument,Sensation, Soft Tissue Mobility,Strength, Tone,Transfers Goals Three Impairment Pt does not have any motor function throughout bilateral LEs Short Term Goal (STG) Pt to demonstrate 1/5 trace motor contraction in at least one quad in order to begin focus on LE mobility if neural functional return begins. STG Duration Met Freight Car Repairer Goal (LTG) Pt to demonstrate right quad strength to at least 2/5, demonstrating movement into ROM in an antigravity position LTG Duration 05/14/23 - improving One Impairment Pt does not have an appropriate home exercise program Short Term Goal (STG) Pt to be independent and compliant with an appropriate HEP 07/30/22: progressing: resisted tricep ext, OH raises in w/c, supine HABD, added scaption OH B #2. STG Duration 04/15/23 Progressing Assessment Summary Assessment Pt able to replicate improved transfers today with improved independence, requires fewer VCs and assistance. Continued use of stander today, pt doing better getting into full extension without leg spasming . Physical Therapy Plan Frequency and Duration Frequency of Treatment 2x/Week Plan of Care Start Date 02/13/23 Plan of Care End Date 05/14/23 Therapeutic Interventions Therapeutic Interventions Aquatic Therapy,Balance Training,Coordination Training ,Gait Training,Home Exercise Program,Manual Therapy, Neuromuscular Re-education, Orthotic/Prosthetic Management ,Patient/Caregiver Education, Self-Care/Home Management, Sensory Integration,Soft Tissue Mobilization, Therapeutic Activities, Therapeutic Exercises, Wheelchair Management Next Visit Focus/Plan Next Note Type Treatment Note Next Visit Plan *Longest loop/straps for stander to support posterior pelvic support both on lower bundles hanger bar hook. *Leg press next POC:Alternate Shuttle recovery and sit/stander. Continue UE and core strengthening, LE PROM and manual stretching. Transfers, mobility, LE ROM, pt will benefit from continued breakdown of transfers to improve efficiency and mechanics, as well as working on more seated balance EOB.
--- NOTE | 2023-04-17 15:15 | PT.OTN ---
Current Diagnoses Paraplegia, unspecified (04/17/23) Other specified personal risk factors, not elsewhere classified (04/17/23) Other specified postprocedural states (04/17/23) Physical Therapy Treatment Note PT-OP-A Visit Information Start: 03/08/22 17:00 Freq: Status: Active Protocol: Document 04/17/23 14:34 SP (Rec: 04/17/23 15:57 SP [id number]) Out-Patient Physical Therapy Visit Information Visit Information Visit Type Treatment Note Visit Start Time 14:34 Visit Stop Time 15:15 Total Visit Minutes 41 Visit Number 101 Number of SECONDARY EDUCATION PROFESSOR Visits 1 Evaluation Information Evaluation Date 03/08/22 PT-OP-B Current Condition Start: 03/08/22 17:00 Freq: Status: Active Protocol: Document 03/08/22 11:15 DCW (Rec: 03/08/22 17:11 DCW [id number]) Current Condition History of Current Condition Onset Date 12/16/21 Current Complaints Paraplegia History of Current Condition Pt is a 71 year old male with a very unfortunate medical history. Pt was hiking [place] on 12/16/21 with a friend, finished up, drive back to his friend's home to drop him off, and noticed his left leg was collapsing. By the time pt drove home, both legs were giving out and numb. Pt was suddenly paralized from the waist down, was taken to the ED, and was flown to [facility] on 12/17/21. The following day, he underwent a laminectomy to relieve pressure from the thoracic epidural hematoma which had developed following his hike, which was pressing on his spinal cord. Following surgery , pt was in recovery for a week and was then transfered to rehab for 20 days, when he was finally discharged home in a wheelchair on 01/19/22. Pt reports his surgeon informed him that it is a possibility that he gets some return of nerve function. Has experienced some changes in his right LE, but has no motor function at this time from ~ T10 down. Minimal sensory return on right side, none on left. Pt has been anxious to get in to therapy and do everything he can to help return to function. Pt's , who attended his evaluation, notes that she has been doing a lot of PROM in his legs at night to keep everything moving. Pt can feel some stretching during PROM in his right leg. Pt has additionally already started occupational therapy, and has been practicing some seated stabilization. Pt transfers with a slide board, but notes it is difficult to do into his car, because he has to transfer upward at an incline. Treatment Goals Patient/Caregiver Goals I will do anything possible to get out of this wheelchair. My neurologist told me he has seen people recover from this , so I am not giving up hope. PT-OP-C Subjective Start: 03/08/22 17:00 Freq: Status: Active Protocol: Document 04/17/23 14:34 SP (Rec: 04/17/23 15:57 SP [id number]) OP-PT Subjective Patient Comments Patient Comments Pt reports able to transfer with more confidence without board level surfaces, PT-OP-G Mobility & Gait Start: 03/08/22 17:00 Freq: Status: Active Protocol: Document 02/13/23 12:50 DCW (Rec: 02/13/23 13:22 DCW [id number]) OP Mobility Evaluation Transfers Bed to Chair Transfers Transfers using UE Car Transfers uses slide board, stabilizes front to back and prevent slide down board Wheelchair Management Type of Wheelchair Manual w/c PT-OP-H Neuro Start: 03/08/22 17:00 Freq: Status: Active Protocol: Document 02/13/23 12:50 DCW (Rec: 02/13/23 13:22 DCW [id number]) Sensation Evaluation Gross Sensation Gross Sensation Left LE Impaired,Right LE Impaired,Trunk Impaired Sensation Description Paresthesia,Numbness,Tingling, Pins & [place],Burning Dermatome Impairments L1,L2,L3,L4,L5,S1,S2,S3,S4-5 Location Details Right Leg Light Touch Impaired Sharp/Dull Impaired Deep Pressure Intact/Normal Hot/Cold Absent Protective Sensation Absent Proprioception (Position) Impaired Kinesthesia (Movement) Impaired Two-Point Discrimination Impaired Tactile Localization Impaired Stereognosis Impaired Left Leg Light Touch Absent Sharp/Dull Absent Deep Pressure Absent Hot/Cold Impaired Protective Sensation Absent Proprioception (Position) Absent Kinesthesia (Movement) Impaired Two-Point Discrimination Absent Tactile Localization Absent Stereognosis Absent Deep Tendon Reflex & Clonus Assessment Deep Tendon Reflex Right Achilles Deep Tendon Reflex 1+ Diminished Right Patellar Deep Tendon Reflex 2+ Normal Left Achilles Deep Tendon Reflex 1+ Diminished Left Patellar Deep Tendon Reflex 0 Absent Muscle Tone Tone Assessment Right Lower Extremity Flexor Tone Description Moderate Hypertonicity Extensor Tone Description Moderate Hypertonicity Left Lower Extremity Flexor Tone Description Moderate Hypertonicity Extensor Tone Description Moderate Hypertonicity PT-OP-J Posture/Palpation/Skin Start: 03/08/22 17:00 Freq: Status: Active Protocol: Document 02/13/23 12:50 DCW (Rec: 02/13/23 13:22 DCW [id number]) Posture Evaluation Comments Posture Comments Sitting EOB with good core control and no instability. Recovers from most directional pushing, although eventually LEs went into extension spasm and pt required assist x1 to return to sitting. PT-OP-M Strength Start: 08/21/22 15:38 Freq: Status: Active Protocol: Document 02/13/23 12:50 DCW (Rec: 02/13/23 13:22 DCW [id number]) Hip Strength Hip Manual Muscle Testing Right Extension (S1) 2- Poor- Adduction 2- Poor- Left Extension (S1) 1 Trace Adduction 0 Zero Knee Strength Knee Manual Muscle Testing Right Flexion (S2) 1 Trace Extension (L3) 1 Trace Left Flexion (S2) 1 Trace Extension (L3) 1 Trace Ankle/Foot Strength Ankle and Foot Manual Muscle Testing Right Plantarflexion (S1) 1 Trace Left Plantarflexion (S1) 1 Trace PT-OP-Q Treatments Start: 03/08/22 17:00 Freq: Status: Active Protocol: Document 04/17/23 14:34 SP (Rec: 04/17/23 15:57 SP [id number]) Cardio Equipment Recumbent Elliptical (Biodex) Duration (Minutes) 10 Resistance 8 Seat Position 10 Other w/c<->biodex CG/Mod A Therapeutic Exercises Sitting Exercises TS rotation Sitting Exercise Name initiated in PT Side bilateral Resistance AAROM therapist added rotation stretch and stability Fwd&bwd & lateral Equipment Used arms cradling dowel across chest- CG/Min A trunk stability Reps/Minutes 10 each side Comments More limiting R than L, cued slow rotation lateral side bend Sitting Exercise Name initiated in PT Side bilateral Resistance light contact table with reaching UE to side Reps/Minutes 4 reps each side Comments R SB more limited than L Seated crunch Sitting Exercise Name trunk flexion, ed slow pacing- light lateral BUE forearm glide down Side bilateral Resistance aROM upper to mid vega with reps Equipment Used at EO table, BUE on lap come back to extension sitting neutral Reps/Minutes x10 total Comments Cues for slow control fwd TA engaged/ LS& hip stretch, good abs working Therapeutic Activity Therapeutic Activity squat/lateral scoot transfer Name 1. w/c <-> Biodex (Left side) 2. mat table 3. BIG firm chair Reps/Minutes x5 reps total Comments Min/ModA w/c>biodex, CG/Min biodex> w/c, w/c<>mat table and BIG chair, as needed /c support throughout gait belt & anterior LLE support needed boost on elevated biodex approx 2. Biodex>w/c 5%>CGA ( therapist LE 1 from ant knee and light contact GB for safety support if needed). Cues to patient scoot fwd, small lateral scoot pacing transition over/back w/ maintain trunk flexion utilizing B scapular complex, core for stability. Improves with reps Neuro Re-Education Treatment Balance Activities balloon volleyball Details SECONDARY EDUCATION PROFESSOR provided SBA/Min A PRN, PTAide balloon volley Surface 2# wrist wts Equipment black mat table, balloon, dowel gait belt Reps/Duration 8 min Comments 1. seated Edge of black mat table, feet on floor, SBA 2. free sitting, self wt shift outside KIARA reaching, LOB retro x2 cues Mod/Max A recover, UE contact LOB flexion. Maintained trunk midline f/b/lateral 25% time with cues for slower pacing chest press. PT-OP-T Assessment and Plan Start: 03/08/22 17:00 Freq: Status: Active Protocol: Document 04/17/23 14:34 SP (Rec: 04/17/23 15:57 SP [id number]) Physical Therapy Assessment Goals Three Impairment Pt does not have any motor function throughout bilateral LEs Short Term Goal (STG) Pt to demonstrate 1/5 trace motor contraction in at least one quad in order to begin focus on LE mobility if neural functional return begins. STG Duration Met Mcfp Goal (LTG) Pt to demonstrate right quad strength to at least 2/5, demonstrating movement into ROM in an antigravity position LTG Duration 05/14/23 - improving One Impairment Pt does not have an appropriate home exercise program Short Term Goal (STG) Pt to be independent and compliant with an appropriate HEP 07/30/22: progressing: resisted tricep ext, OH raises in w/c, supine HABD, added scaption OH B #2. STG Duration 04/15/23 Progressing Assessment Summary Assessment Pt improving slower pace lateral scoot between level and decline surfaces CG-5%A, Min/Mod A incline surface, improves with cues for trunk maintain flexion off midline to unweight pelvis, improved self BUE assisting BLE repositioning during level surface 1 UE support for trunk stability. Initiated transfers to nearby chair for practice alternate streetsweeper operator surfaces with need for slower pacing for safety chair stability, no arm rests. Good feedback lateral trunk into hip flexor stretch with light contact trunk support SBA, L SB better than R. Physical Therapy Plan Frequency and Duration Frequency of Treatment 2x/Week Plan of Care Start Date 02/13/23 Plan of Care End Date 05/14/23 Therapeutic Interventions Therapeutic Interventions Aquatic Therapy,Balance Training,Coordination Training ,Gait Training,Home Exercise Program,Manual Therapy, Neuromuscular Re-education, Orthotic/Prosthetic Management ,Patient/Caregiver Education, Self-Care/Home Management, Sensory Integration,Soft Tissue Mobilization, Therapeutic Activities, Therapeutic Exercises, Wheelchair Management Next Visit Focus/Plan Next Note Type Treatment Note Next Visit Plan *Longest loop/straps for stander to support posterior pelvic support both on lower paperhanger assistant bar hook. *Leg press next POC:Alternate Shuttle recovery and sit/stander. Continue UE and core strengthening, LE PROM and manual stretching. Transfers, mobility, LE ROM, pt will benefit from continued breakdown of transfers to improve efficiency and mechanics, as well as working on more seated balance EOB.
--- NOTE | 2023-04-22 15:17 | PT.OTN ---
Current Diagnoses Paraplegia, unspecified (04/22/23) Other specified personal risk factors, not elsewhere classified (04/22/23) Other specified postprocedural states (04/22/23) Physical Therapy Treatment Note PT-OP-A Visit Information Start: 03/08/22 17:00 Freq: Status: Active Protocol: Document 04/22/23 14:33 SP (Rec: 04/22/23 15:42 SP [id number]) Out-Patient Physical Therapy Visit Information Visit Information Visit Type Treatment Note Visit Start Time 14:33 Visit Stop Time 15:17 Total Visit Minutes 44 Visit Number 102 Number of HOUSEKEEPING DIRECTOR Visits 2 Evaluation Information Evaluation Date 03/08/22 PT-OP-B Current Condition Start: 03/08/22 17:00 Freq: Status: Active Protocol: Document 03/08/22 11:15 DCW (Rec: 03/08/22 17:11 DCW [id number]) Current Condition History of Current Condition Onset Date 12/16/21 Current Complaints Paraplegia History of Current Condition Pt is a 71 year old male with a very unfortunate medical history. Pt was hiking [place] on 12/16/21 with a friend, finished up, drive back to his friend's home to drop him off, and noticed his left leg was collapsing. By the time pt drove home, both legs were giving out and numb. Pt was suddenly paralized from the waist down, was taken to the ED, and was flown to [facility] on 12/17/21. The following day, he underwent a laminectomy to relieve pressure from the thoracic epidural hematoma which had developed following his hike, which was pressing on his spinal cord. Following surgery , pt was in recovery for a week and was then transfered to rehab for 20 days, when he was finally discharged home in a wheelchair on 01/19/22. Pt reports his surgeon informed him that it is a possibility that he gets some return of nerve function. Has experienced some changes in his right LE, but has no motor function at this time from ~ T10 down. Minimal sensory return on right side, none on left. Pt has been anxious to get in to therapy and do everything he can to help return to function. Pt's , who attended his evaluation, notes that she has been doing a lot of PROM in his legs at night to keep everything moving. Pt can feel some stretching during PROM in his right leg. Pt has additionally already started occupational therapy, and has been practicing some seated stabilization. Pt transfers with a slide board, but notes it is difficult to do into his car, because he has to transfer upward at an incline. Treatment Goals Patient/Caregiver Goals I will do anything possible to get out of this wheelchair. My neurologist told me he has seen people recover from this , so I am not giving up hope. PT-OP-C Subjective Start: 03/08/22 17:00 Freq: Status: Active Protocol: Document 04/22/23 14:33 SP (Rec: 04/22/23 15:42 SP [id number]) OP-PT Subjective Patient Comments Patient Comments Pt reports feels can reach further forward toward ankles seated EO w/c. Improved PT-OP-G Mobility & Gait Start: 03/08/22 17:00 Freq: Status: Active Protocol: Document 02/13/23 12:50 DCW (Rec: 02/13/23 13:22 DCW [id number]) OP Mobility Evaluation Transfers Bed to Chair Transfers Transfers using UE Car Transfers uses slide board, stabilizes front to back and prevent slide down board Wheelchair Management Type of Wheelchair Manual w/c PT-OP-H Neuro Start: 03/08/22 17:00 Freq: Status: Active Protocol: Document 02/13/23 12:50 DCW (Rec: 02/13/23 13:22 DCW [id number]) Sensation Evaluation Gross Sensation Gross Sensation Left LE Impaired,Right LE Impaired,Trunk Impaired Sensation Description Paresthesia,Numbness,Tingling, Pins & [place],Burning Dermatome Impairments L1,L2,L3,L4,L5,S1,S2,S3,S4-5 Location Details Right Leg Light Touch Impaired Sharp/Dull Impaired Deep Pressure Intact/Normal Hot/Cold Absent Protective Sensation Absent Proprioception (Position) Impaired Kinesthesia (Movement) Impaired Two-Point Discrimination Impaired Tactile Localization Impaired Stereognosis Impaired Left Leg Light Touch Absent Sharp/Dull Absent Deep Pressure Absent Hot/Cold Impaired Protective Sensation Absent Proprioception (Position) Absent Kinesthesia (Movement) Impaired Two-Point Discrimination Absent Tactile Localization Absent Stereognosis Absent Deep Tendon Reflex & Clonus Assessment Deep Tendon Reflex Right Achilles Deep Tendon Reflex 1+ Diminished Right Patellar Deep Tendon Reflex 2+ Normal Left Achilles Deep Tendon Reflex 1+ Diminished Left Patellar Deep Tendon Reflex 0 Absent Muscle Tone Tone Assessment Right Lower Extremity Flexor Tone Description Moderate Hypertonicity Extensor Tone Description Moderate Hypertonicity Left Lower Extremity Flexor Tone Description Moderate Hypertonicity Extensor Tone Description Moderate Hypertonicity PT-OP-J Posture/Palpation/Skin Start: 03/08/22 17:00 Freq: Status: Active Protocol: Document 02/13/23 12:50 DCW (Rec: 02/13/23 13:22 DCW [id number]) Posture Evaluation Comments Posture Comments Sitting EOB with good core control and no instability. Recovers from most directional pushing, although eventually LEs went into extension spasm and pt required assist x1 to return to sitting. PT-OP-M Strength Start: 08/21/22 15:38 Freq: Status: Active Protocol: Document 02/13/23 12:50 DCW (Rec: 02/13/23 13:22 DCW [id number]) Hip Strength Hip Manual Muscle Testing Right Extension (S1) 2- Poor- Adduction 2- Poor- Left Extension (S1) 1 Trace Adduction 0 Zero Knee Strength Knee Manual Muscle Testing Right Flexion (S2) 1 Trace Extension (L3) 1 Trace Left Flexion (S2) 1 Trace Extension (L3) 1 Trace Ankle/Foot Strength Ankle and Foot Manual Muscle Testing Right Plantarflexion (S1) 1 Trace Left Plantarflexion (S1) 1 Trace PT-OP-Q Treatments Start: 03/08/22 17:00 Freq: Status: Active Protocol: Document 04/22/23 14:33 SP (Rec: 04/22/23 15:42 SP [id number]) Cardio Equipment Recumbent Elliptical (Biodex) Duration (Minutes) 10 Resistance 8 Seat Position 7 Other w/c<->biodex CG/Mod A, block L knee, cue small scoots Therapeutic Activity Therapeutic Activity Mini isometric STS hold Name sit/stander Reps/Minutes 2 SH x3 reps x2 sets Comments front sit stander, scooted EO w/c, BUE pulling forward from Marycarmen arm rests/B BLE on base plate knee pad front knees/HOUSEKEEPING DIRECTOR and PTAide lateral knee support medial positioning. Pt able lift buttocks off w/c, glut firing with UE support anteriorly pulling and little mid forearm WB on stander marycarmen arm compensation. sit to stander Name Long 1st hole strap and longest lrg looped strap both on lower hook Reps/Minutes 1 stand 20 min Comments in //bars, 2 person (1 posterior pelvic/low back support, 2nd person stander control) Noted quad and gluteal firing with wt shifting forward/back/ lateral with BUE support on standing frame bars. Min cues for elongated posturing for TS ext. Improved decreased RLE flexor tone, ascend into standing with only 3 brief pauses to acclimate to flexor tone into LE extension responses. [ End ] squat/lateral scoot transfer Name 1. w/c <-> Biodex (Left side) 2. mat table 3. Large chair /c arms Reps/Minutes x5 reps total Comments Min/ModA w/c>biodex, CG/Min biodex> w/c, w/c>large chair / c arms Min A trunk stab/ chair >w/c Mod/Max A for trunk support lat elevated 2 scoot , as needed /c support throughout gait belt & anterior LLE support needed boost on elevated biodex approx 2. Biodex>w/c 5%>CGA ( therapist LE 1 from ant knee and light contact GB for safety support if needed). Cues to patient scoot fwd, small lateral scoot pacing transition over/back w/ maintain trunk flexion utilizing B scapular complex, core for stability. Improves with reps Self-Care/Home Management Treatment Education Patient Education Body Mechanics,Fall Risk, Posture,Safety Other Education Education forward hip hinge, lateral scoot more slower pacing small scoots, increase support anterior knees and trunk/pelvic transition with elevation. HOUSEKEEPING DIRECTOR education on motor planning w/c, BLE, trunk and BUE positioning set up and during mobility for increase independence. Including where w/c positioned nearby but ability to grasp when ready get back in. PT-OP-T Assessment and Plan Start: 03/08/22 17:00 Freq: Status: Active Protocol: Document 04/22/23 14:33 SP (Rec: 04/22/23 15:42 SP [id number]) Physical Therapy Assessment Goals Three Impairment Pt does not have any motor function throughout bilateral LEs Short Term Goal (STG) Pt to demonstrate 1/5 trace motor contraction in at least one quad in order to begin focus on LE mobility if neural functional return begins. STG Duration Met Baby Registry Sales Consultant Goal (LTG) Pt to demonstrate right quad strength to at least 2/5, demonstrating movement into ROM in an antigravity position LTG Duration 05/14/23 - improving One Impairment Pt does not have an appropriate home exercise program Short Term Goal (STG) Pt to be independent and compliant with an appropriate HEP 07/30/22: progressing: resisted tricep ext, OH raises in w/c, supine HABD, added scaption OH B #2. STG Duration 04/15/23 Progressing Assessment Summary Assessment Pt improved glut and quad isometric firing mini sit/ stand hold pulling from sit stander marycarmen arm no posterior pelvic harness support. Improved understanding motor planning transfers in/out w/c to other chair this tx. Physical Therapy Plan Frequency and Duration Frequency of Treatment 2x/Week Plan of Care Start Date 02/13/23 Plan of Care End Date 05/14/23 Therapeutic Interventions Therapeutic Interventions Aquatic Therapy,Balance Training,Coordination Training ,Gait Training,Home Exercise Program,Manual Therapy, Neuromuscular Re-education, Orthotic/Prosthetic Management ,Patient/Caregiver Education, Self-Care/Home Management, Sensory Integration,Soft Tissue Mobilization, Therapeutic Activities, Therapeutic Exercises, Wheelchair Management Next Visit Focus/Plan Next Note Type Treatment Note Next Visit Plan *Longest loop/straps for stander to support posterior pelvic support both on lower warp hanger bar hook. *Leg press next POC:Alternate Shuttle recovery and sit/stander. Continue UE and core strengthening, LE PROM and manual stretching. Transfers, mobility, LE ROM, pt will benefit from continued breakdown of transfers to improve efficiency and mechanics, as well as working on more seated balance EOB.
--- NOTE | 2023-04-24 17:58 | PT.OTN ---
Current Diagnoses Paraplegia, unspecified (04/24/23) Other specified personal risk factors, not elsewhere classified (04/24/23) Other specified postprocedural states (04/24/23) Physical Therapy Treatment Note PT-OP-A Visit Information Start: 03/08/22 17:00 Freq: Status: Active Protocol: Document 04/24/23 15:27 BS (Rec: 04/24/23 16:10 BS [id number]) Out-Patient Physical Therapy Visit Information Visit Information Visit Type Treatment Note Visit Start Time 15:20 Visit Stop Time 14:06 Total Visit Minutes 46 Visit Number 103 Number of FISHERIES INSPECTOR Visits 0 PT-OP-B Current Condition Start: 03/08/22 17:00 Freq: Status: Active Protocol: Document 03/08/22 11:15 DCW (Rec: 03/08/22 17:11 DCW [id number]) Current Condition History of Current Condition Onset Date 12/16/21 Current Complaints Paraplegia History of Current Condition Pt is a 71 year old male with a very unfortunate medical history. Pt was hiking [place] on 12/16/21 with a friend, finished up, drive back to his friend's home to drop him off, and noticed his left leg was collapsing. By the time pt drove home, both legs were giving out and numb. Pt was suddenly paralized from the waist down, was taken to the ED, and was flown to [facility] on 12/17/21. The following day, he underwent a laminectomy to relieve pressure from the thoracic epidural hematoma which had developed following his hike, which was pressing on his spinal cord. Following surgery , pt was in recovery for a week and was then transfered to rehab for 20 days, when he was finally discharged home in a wheelchair on 01/19/22. Pt reports his surgeon informed him that it is a possibility that he gets some return of nerve function. Has experienced some changes in his right LE, but has no motor function at this time from ~ T10 down. Minimal sensory return on right side, none on left. Pt has been anxious to get in to therapy and do everything he can to help return to function. Pt's , who attended his evaluation, notes that she has been doing a lot of PROM in his legs at night to keep everything moving. Pt can feel some stretching during PROM in his right leg. Pt has additionally already started occupational therapy, and has been practicing some seated stabilization. Pt transfers with a slide board, but notes it is difficult to do into his car, because he has to transfer upward at an incline. Treatment Goals Patient/Caregiver Goals I will do anything possible to get out of this wheelchair. My neurologist told me he has seen people recover from this , so I am not giving up hope. PT-OP-C Subjective Start: 03/08/22 17:00 Freq: Status: Active Protocol: Document 04/24/23 15:27 BS (Rec: 04/24/23 16:10 BS [id number]) OP-PT Subjective Patient Comments Patient Comments No new changes reported by pt today PT-OP-G Mobility & Gait Start: 03/08/22 17:00 Freq: Status: Active Protocol: Document 02/13/23 12:50 DCW (Rec: 02/13/23 13:22 DCW [id number]) OP Mobility Evaluation Transfers Bed to Chair Transfers Transfers using UE Car Transfers uses slide board, stabilizes front to back and prevent slide down board Wheelchair Management Type of Wheelchair Manual w/c PT-OP-H Neuro Start: 03/08/22 17:00 Freq: Status: Active Protocol: Document 02/13/23 12:50 DCW (Rec: 02/13/23 13:22 DCW [id number]) Sensation Evaluation Gross Sensation Gross Sensation Left LE Impaired,Right LE Impaired,Trunk Impaired Sensation Description Paresthesia,Numbness,Tingling, Pins & [place],Burning Dermatome Impairments L1,L2,L3,L4,L5,S1,S2,S3,S4-5 Location Details Right Leg Light Touch Impaired Sharp/Dull Impaired Deep Pressure Intact/Normal Hot/Cold Absent Protective Sensation Absent Proprioception (Position) Impaired Kinesthesia (Movement) Impaired Two-Point Discrimination Impaired Tactile Localization Impaired Stereognosis Impaired Left Leg Light Touch Absent Sharp/Dull Absent Deep Pressure Absent Hot/Cold Impaired Protective Sensation Absent Proprioception (Position) Absent Kinesthesia (Movement) Impaired Two-Point Discrimination Absent Tactile Localization Absent Stereognosis Absent Deep Tendon Reflex & Clonus Assessment Deep Tendon Reflex Right Achilles Deep Tendon Reflex 1+ Diminished Right Patellar Deep Tendon Reflex 2+ Normal Left Achilles Deep Tendon Reflex 1+ Diminished Left Patellar Deep Tendon Reflex 0 Absent Muscle Tone Tone Assessment Right Lower Extremity Flexor Tone Description Moderate Hypertonicity Extensor Tone Description Moderate Hypertonicity Left Lower Extremity Flexor Tone Description Moderate Hypertonicity Extensor Tone Description Moderate Hypertonicity PT-OP-J Posture/Palpation/Skin Start: 03/08/22 17:00 Freq: Status: Active Protocol: Document 02/13/23 12:50 DCW (Rec: 02/13/23 13:22 DCW [id number]) Posture Evaluation Comments Posture Comments Sitting EOB with good core control and no instability. Recovers from most directional pushing, although eventually LEs went into extension spasm and pt required assist x1 to return to sitting. PT-OP-M Strength Start: 08/21/22 15:38 Freq: Status: Active Protocol: Document 02/13/23 12:50 DCW (Rec: 02/13/23 13:22 DCW [id number]) Hip Strength Hip Manual Muscle Testing Right Extension (S1) 2- Poor- Adduction 2- Poor- Left Extension (S1) 1 Trace Adduction 0 Zero Knee Strength Knee Manual Muscle Testing Right Flexion (S2) 1 Trace Extension (L3) 1 Trace Left Flexion (S2) 1 Trace Extension (L3) 1 Trace Ankle/Foot Strength Ankle and Foot Manual Muscle Testing Right Plantarflexion (S1) 1 Trace Left Plantarflexion (S1) 1 Trace PT-OP-Q Treatments Start: 03/08/22 17:00 Freq: Status: Active Protocol: Document 04/24/23 15:27 BS (Rec: 04/24/23 16:10 BS [id number]) Cardio Equipment Recumbent Elliptical (Biodex) Duration (Minutes) 10 Resistance 8 Seat Position 7 Other w/c<->biodex CG/min A Therapeutic Activity Therapeutic Activity squat/lateral scoot transfer Comments 1. w/c<>biodex CGA/Min A 2. W/c<>mat CGA 3. Ant tilts EOB to practice offweighting ITs, Min A 4. Dep lift laterally along EOB working on head-hips relationship and hand placement x5 each way, CGA/SBA but min-mod for cueing to start Neuro Re-Education Treatment Balance Activities Seated balance Details SBA/CGA for all, occasional Min A for LOB Comments 1. AP mvmt w/ dowel in BUE seated EOB 2. kayaking motion w/ dowel 3. lateral taps w/ dowel PT-OP-T Assessment and Plan Start: 03/08/22 17:00 Freq: Status: Active Protocol: Document 04/24/23 15:27 BS (Rec: 04/24/23 16:10 BS [id number]) Physical Therapy Assessment Goals Three Impairment Pt does not have any motor function throughout bilateral LEs Short Term Goal (STG) Pt to demonstrate 1/5 trace motor contraction in at least one quad in order to begin focus on LE mobility if neural functional return begins. STG Duration Met Snf Goal (LTG) Pt to demonstrate right quad strength to at least 2/5, demonstrating movement into ROM in an antigravity position LTG Duration 05/14/23 - improving One Impairment Pt does not have an appropriate home exercise program Short Term Goal (STG) Pt to be independent and compliant with an appropriate HEP 07/30/22: progressing: resisted tricep ext, OH raises in w/c, supine HABD, added scaption OH B #2. STG Duration 04/15/23 Progressing Assessment Summary Assessment Session today focused on trasnfer training and seated balance. Pt requires max cueing for off weighting ITs w / fwd lean seated EOB, has tendency to muscle through w/ arms instead of using fluid momentum. Pt also educated about handplacement during transfers and showed good carryover throughout session. Pt was CGA for lateral scooting along EOB w/ good IT clearance noted. Pt had difficulty w/ seated balance to begin but improved overall balance and motor control following interventions. Physical Therapy Plan Frequency and Duration Frequency of Treatment 2x/Week Plan of Care Start Date 02/13/23 Plan of Care End Date 05/14/23 Next Visit Focus/Plan Next Note Type Treatment Note Next Visit Plan *Longest loop/straps for stander to support posterior pelvic support both on lower shade hanger bar hook. *Leg press next POC:Alternate Shuttle recovery and sit/stander. Continue UE and core strengthening, LE PROM and manual stretching. Transfers, mobility, LE ROM, pt will benefit from continued breakdown of transfers to improve efficiency and mechanics, as well as working on more seated balance EOB.
--- NOTE | 2023-04-29 16:05 | PT.OTN ---
Current Diagnoses Paraplegia, unspecified (04/29/23) Other specified personal risk factors, not elsewhere classified (04/29/23) Other specified postprocedural states (04/29/23) Physical Therapy Treatment Note PT-OP-A Visit Information Start: 03/08/22 17:00 Freq: Status: Active Protocol: Document 04/29/23 15:18 DCW (Rec: 04/29/23 16:05 DCW [id number]) Out-Patient Physical Therapy Visit Information Visit Information Visit Type Treatment Note Visit Start Time 15:19 Visit Stop Time 16:00 Total Visit Minutes 41 Visit Number 104 Number of FLAG FOOTBALL COACH Visits 0 Evaluation Information Evaluation Date 03/08/22 PT-OP-B Current Condition Start: 03/08/22 17:00 Freq: Status: Active Protocol: Document 03/08/22 11:15 DCW (Rec: 03/08/22 17:11 DCW [id number]) Current Condition History of Current Condition Onset Date 12/16/21 Current Complaints Paraplegia History of Current Condition Pt is a 71 year old male with a very unfortunate medical history. Pt was hiking [place] on 12/16/21 with a friend, finished up, drive back to his friend's home to drop him off, and noticed his left leg was collapsing. By the time pt drove home, both legs were giving out and numb. Pt was suddenly paralized from the waist down, was taken to the ED, and was flown to [facility] on 12/17/21. The following day, he underwent a laminectomy to relieve pressure from the thoracic epidural hematoma which had developed following his hike, which was pressing on his spinal cord. Following surgery , pt was in recovery for a week and was then transfered to rehab for 20 days, when he was finally discharged home in a wheelchair on 01/19/22. Pt reports his surgeon informed him that it is a possibility that he gets some return of nerve function. Has experienced some changes in his right LE, but has no motor function at this time from ~ T10 down. Minimal sensory return on right side, none on left. Pt has been anxious to get in to therapy and do everything he can to help return to function. Pt's , who attended his evaluation, notes that she has been doing a lot of PROM in his legs at night to keep everything moving. Pt can feel some stretching during PROM in his right leg. Pt has additionally already started occupational therapy, and has been practicing some seated stabilization. Pt transfers with a slide board, but notes it is difficult to do into his car, because he has to transfer upward at an incline. Treatment Goals Patient/Caregiver Goals I will do anything possible to get out of this wheelchair. My neurologist told me he has seen people recover from this , so I am not giving up hope. PT-OP-C Subjective Start: 03/08/22 17:00 Freq: Status: Active Protocol: Document 04/29/23 15:18 DCW (Rec: 04/29/23 16:05 DCW [id number]) OP-PT Subjective Patient Comments Patient Comments This is so important for my mental and physical well being . PT-OP-G Mobility & Gait Start: 03/08/22 17:00 Freq: Status: Active Protocol: Document 02/13/23 12:50 DCW (Rec: 02/13/23 13:22 DCW [id number]) OP Mobility Evaluation Transfers Bed to Chair Transfers Transfers using UE Car Transfers uses slide board, stabilizes front to back and prevent slide down board Wheelchair Management Type of Wheelchair Manual w/c PT-OP-H Neuro Start: 03/08/22 17:00 Freq: Status: Active Protocol: Document 02/13/23 12:50 DCW (Rec: 02/13/23 13:22 DCW [id number]) Sensation Evaluation Gross Sensation Gross Sensation Left LE Impaired,Right LE Impaired,Trunk Impaired Sensation Description Paresthesia,Numbness,Tingling, Pins & [place],Burning Dermatome Impairments L1,L2,L3,L4,L5,S1,S2,S3,S4-5 Location Details Right Leg Light Touch Impaired Sharp/Dull Impaired Deep Pressure Intact/Normal Hot/Cold Absent Protective Sensation Absent Proprioception (Position) Impaired Kinesthesia (Movement) Impaired Two-Point Discrimination Impaired Tactile Localization Impaired Stereognosis Impaired Left Leg Light Touch Absent Sharp/Dull Absent Deep Pressure Absent Hot/Cold Impaired Protective Sensation Absent Proprioception (Position) Absent Kinesthesia (Movement) Impaired Two-Point Discrimination Absent Tactile Localization Absent Stereognosis Absent Deep Tendon Reflex & Clonus Assessment Deep Tendon Reflex Right Achilles Deep Tendon Reflex 1+ Diminished Right Patellar Deep Tendon Reflex 2+ Normal Left Achilles Deep Tendon Reflex 1+ Diminished Left Patellar Deep Tendon Reflex 0 Absent Muscle Tone Tone Assessment Right Lower Extremity Flexor Tone Description Moderate Hypertonicity Extensor Tone Description Moderate Hypertonicity Left Lower Extremity Flexor Tone Description Moderate Hypertonicity Extensor Tone Description Moderate Hypertonicity PT-OP-J Posture/Palpation/Skin Start: 03/08/22 17:00 Freq: Status: Active Protocol: Document 02/13/23 12:50 DCW (Rec: 02/13/23 13:22 DCW [id number]) Posture Evaluation Comments Posture Comments Sitting EOB with good core control and no instability. Recovers from most directional pushing, although eventually LEs went into extension spasm and pt required assist x1 to return to sitting. PT-OP-M Strength Start: 08/21/22 15:38 Freq: Status: Active Protocol: Document 02/13/23 12:50 DCW (Rec: 02/13/23 13:22 DCW [id number]) Hip Strength Hip Manual Muscle Testing Right Extension (S1) 2- Poor- Adduction 2- Poor- Left Extension (S1) 1 Trace Adduction 0 Zero Knee Strength Knee Manual Muscle Testing Right Flexion (S2) 1 Trace Extension (L3) 1 Trace Left Flexion (S2) 1 Trace Extension (L3) 1 Trace Ankle/Foot Strength Ankle and Foot Manual Muscle Testing Right Plantarflexion (S1) 1 Trace Left Plantarflexion (S1) 1 Trace PT-OP-Q Treatments Start: 03/08/22 17:00 Freq: Status: Active Protocol: Document 04/29/23 15:18 DCW (Rec: 04/29/23 16:05 DCW [id number]) Cardio Equipment Recumbent Elliptical (Biodex) Duration (Minutes) 10 Resistance 8 Seat Position 7 Other w/c<->biodex CG/min A Therapeutic Activity Therapeutic Activity squat/lateral scoot transfer Comments 1. w/c<>biodex CGA/Min A 2. W/c<>mat CGA 3. Ant tilts EOB to practice offweighting ITs, Min A 4. Dep lift laterally along EOB working on head-hips relationship and hand placement x10 each way, CGA/ SBA /c min-mod verbal cues PT-OP-T Assessment and Plan Start: 03/08/22 17:00 Freq: Status: Active Protocol: Document 04/29/23 15:18 DCW (Rec: 04/29/23 16:05 DCW [id number]) Physical Therapy Assessment Goals Three Impairment Pt does not have any motor function throughout bilateral LEs Short Term Goal (STG) Pt to demonstrate 1/5 trace motor contraction in at least one quad in order to begin focus on LE mobility if neural functional return begins. STG Duration Met Ergonomics Consultant Goal (LTG) Pt to demonstrate right quad strength to at least 2/5, demonstrating movement into ROM in an antigravity position LTG Duration 05/14/23 - improving One Impairment Pt does not have an appropriate home exercise program Short Term Goal (STG) Pt to be independent and compliant with an appropriate HEP 07/30/22: progressing: resisted tricep ext, OH raises in w/c, supine HABD, added scaption OH B #2. STG Duration 04/15/23 Progressing Assessment Summary Assessment Spent more time today focusing on transfer training EOB, pt noted increased understanding, struggled with keeping elbows extended during transfer Physical Therapy Plan Frequency and Duration Frequency of Treatment 2x/Week Plan of Care Start Date 02/13/23 Plan of Care End Date 05/14/23 Therapeutic Interventions Therapeutic Interventions Aquatic Therapy,Balance Training,Coordination Training ,Gait Training,Home Exercise Program,Manual Therapy, Neuromuscular Re-education, Orthotic/Prosthetic Management ,Patient/Caregiver Education, Self-Care/Home Management, Sensory Integration,Soft Tissue Mobilization, Therapeutic Activities, Therapeutic Exercises, Wheelchair Management Next Visit Focus/Plan Next Note Type Treatment Note Next Visit Plan *Longest loop/straps for stander to support posterior pelvic support both on lower acid changer bar hook. *Stander next POC:Alternate Shuttle recovery and sit/stander. Continue UE and core strengthening, LE PROM and manual stretching. Transfers, mobility, LE ROM, pt will benefit from continued breakdown of transfers to improve efficiency and mechanics, as well as working on more seated balance EOB.
--- NOTE | 2023-05-01 15:52 | PT.OTN ---
Current Diagnoses Paraplegia, unspecified (05/01/23) Other specified personal risk factors, not elsewhere classified (05/01/23) Other specified postprocedural states (05/01/23) Physical Therapy Treatment Note PT-OP-A Visit Information Start: 03/08/22 17:00 Freq: Status: Active Protocol: Document 05/01/23 15:20 DCW (Rec: 05/01/23 15:51 DCW [id number]) Out-Patient Physical Therapy Visit Information Visit Information Visit Type Treatment Note Visit Start Time 15:20 Visit Stop Time 14:00 Total Visit Minutes 40 Visit Number 105 Number of PACKAGE HANDLER Visits 0 Evaluation Information Evaluation Date 03/08/22 PT-OP-B Current Condition Start: 03/08/22 17:00 Freq: Status: Active Protocol: Document 03/08/22 11:15 DCW (Rec: 03/08/22 17:11 DCW [id number]) Current Condition History of Current Condition Onset Date 12/16/21 Current Complaints Paraplegia History of Current Condition Pt is a 71 year old male with a very unfortunate medical history. Pt was hiking [employer] on 12/16/21 with a friend, finished up, drive back to his friend's home to drop him off, and noticed his left leg was collapsing. By the time pt drove home, both legs were giving out and numb. Pt was suddenly paralized from the waist down, was taken to the ED, and was flown to [facility] on 12/17/21. The following day, he underwent a laminectomy to relieve pressure from the thoracic epidural hematoma which had developed following his hike, which was pressing on his spinal cord. Following surgery , pt was in recovery for a week and was then transfered to rehab for 20 days, when he was finally discharged home in a wheelchair on 01/19/22. Pt reports his surgeon informed him that it is a possibility that he gets some return of nerve function. Has experienced some changes in his right LE, but has no motor function at this time from ~ T10 down. Minimal sensory return on right side, none on left. Pt has been anxious to get in to therapy and do everything he can to help return to function. Pt's , who attended his evaluation, notes that she has been doing a lot of PROM in his legs at night to keep everything moving. Pt can feel some stretching during PROM in his right leg. Pt has additionally already started occupational therapy, and has been practicing some seated stabilization. Pt transfers with a slide board, but notes it is difficult to do into his car, because he has to transfer upward at an incline. Treatment Goals Patient/Caregiver Goals I will do anything possible to get out of this wheelchair. My neurologist told me he has seen people recover from this , so I am not giving up hope. PT-OP-C Subjective Start: 03/08/22 17:00 Freq: Status: Active Protocol: Document 05/01/23 15:20 DCW (Rec: 05/01/23 15:51 DCW [id number]) OP-PT Subjective Patient Comments Patient Comments It's been a hectic day. PT-OP-G Mobility & Gait Start: 03/08/22 17:00 Freq: Status: Active Protocol: Document 02/13/23 12:50 DCW (Rec: 02/13/23 13:22 DCW [id number]) OP Mobility Evaluation Transfers Bed to Chair Transfers Transfers using UE Car Transfers uses slide board, stabilizes front to back and prevent slide down board Wheelchair Management Type of Wheelchair Manual w/c PT-OP-H Neuro Start: 03/08/22 17:00 Freq: Status: Active Protocol: Document 02/13/23 12:50 DCW (Rec: 02/13/23 13:22 DCW [id number]) Sensation Evaluation Gross Sensation Gross Sensation Left LE Impaired,Right LE Impaired,Trunk Impaired Sensation Description Paresthesia,Numbness,Tingling, Pins & [place],Burning Dermatome Impairments L1,L2,L3,L4,L5,S1,S2,S3,S4-5 Location Details Right Leg Light Touch Impaired Sharp/Dull Impaired Deep Pressure Intact/Normal Hot/Cold Absent Protective Sensation Absent Proprioception (Position) Impaired Kinesthesia (Movement) Impaired Two-Point Discrimination Impaired Tactile Localization Impaired Stereognosis Impaired Left Leg Light Touch Absent Sharp/Dull Absent Deep Pressure Absent Hot/Cold Impaired Protective Sensation Absent Proprioception (Position) Absent Kinesthesia (Movement) Impaired Two-Point Discrimination Absent Tactile Localization Absent Stereognosis Absent Deep Tendon Reflex & Clonus Assessment Deep Tendon Reflex Right Achilles Deep Tendon Reflex 1+ Diminished Right Patellar Deep Tendon Reflex 2+ Normal Left Achilles Deep Tendon Reflex 1+ Diminished Left Patellar Deep Tendon Reflex 0 Absent Muscle Tone Tone Assessment Right Lower Extremity Flexor Tone Description Moderate Hypertonicity Extensor Tone Description Moderate Hypertonicity Left Lower Extremity Flexor Tone Description Moderate Hypertonicity Extensor Tone Description Moderate Hypertonicity PT-OP-J Posture/Palpation/Skin Start: 03/08/22 17:00 Freq: Status: Active Protocol: Document 02/13/23 12:50 DCW (Rec: 02/13/23 13:22 DCW [id number]) Posture Evaluation Comments Posture Comments Sitting EOB with good core control and no instability. Recovers from most directional pushing, although eventually LEs went into extension spasm and pt required assist x1 to return to sitting. PT-OP-M Strength Start: 08/21/22 15:38 Freq: Status: Active Protocol: Document 02/13/23 12:50 DCW (Rec: 02/13/23 13:22 DCW [id number]) Hip Strength Hip Manual Muscle Testing Right Extension (S1) 2- Poor- Adduction 2- Poor- Left Extension (S1) 1 Trace Adduction 0 Zero Knee Strength Knee Manual Muscle Testing Right Flexion (S2) 1 Trace Extension (L3) 1 Trace Left Flexion (S2) 1 Trace Extension (L3) 1 Trace Ankle/Foot Strength Ankle and Foot Manual Muscle Testing Right Plantarflexion (S1) 1 Trace Left Plantarflexion (S1) 1 Trace PT-OP-Q Treatments Start: 03/08/22 17:00 Freq: Status: Active Protocol: Document 05/01/23 15:20 DCW (Rec: 05/01/23 15:51 DCW [id number]) Cardio Equipment Recumbent Elliptical (Biodex) Duration (Minutes) 10 Resistance 8 Seat Position 10 Other w/c<->biodex CG/min A Therapeutic Activity Therapeutic Activity sit to stander Name Long 1st hole strap and longest lrg looped strap both on lower hook Reps/Minutes 1 stand 25 min Comments in //bars, 2 person (1 posterior pelvic/low back support, 2nd person stander control) Noted quad and gluteal firing with wt shifting forward/back/ lateral with BUE support on standing frame bars. Min cues for elongated posturing for TS ext. Improved decreased RLE flexor tone, ascend into standing with only 3 brief pauses to acclimate to flexor tone into LE extension responses. [ End ] PT-OP-T Assessment and Plan Start: 03/08/22 17:00 Freq: Status: Active Protocol: Document 05/01/23 15:20 DCW (Rec: 05/01/23 15:51 DCW [id number]) Physical Therapy Assessment Goals Three Impairment Pt does not have any motor function throughout bilateral LEs Short Term Goal (STG) Pt to demonstrate 1/5 trace motor contraction in at least one quad in order to begin focus on LE mobility if neural functional return begins. STG Duration Met [facility] Goal (LTG) Pt to demonstrate right quad strength to at least 2/5, demonstrating movement into ROM in an antigravity position LTG Duration 05/14/23 - improving One Impairment Pt does not have an appropriate home exercise program Short Term Goal (STG) Pt to be independent and compliant with an appropriate HEP 07/30/22: progressing: resisted tricep ext, OH raises in w/c, supine HABD, added scaption OH B #2. STG Duration 04/15/23 Progressing Assessment Summary Assessment Pt feeling better about transfers and seated stabilization, working hard on home transfers without a slide board. Good response to standing today. Physical Therapy Plan Frequency and Duration Frequency of Treatment 2x/Week Plan of Care Start Date 02/13/23 Plan of Care End Date 05/14/23 Therapeutic Interventions Therapeutic Interventions Aquatic Therapy,Balance Training,Coordination Training ,Gait Training,Home Exercise Program,Manual Therapy, Neuromuscular Re-education, Orthotic/Prosthetic Management ,Patient/Caregiver Education, Self-Care/Home Management, Sensory Integration,Soft Tissue Mobilization, Therapeutic Activities, Therapeutic Exercises, Wheelchair Management Next Visit Focus/Plan Next Note Type Treatment Note Next Visit Plan *Longest loop/straps for stander to support posterior pelvic support both on lower metal ceiling hanger bar hook. *Leg Press next POC:Alternate Shuttle recovery and sit/stander. Continue UE and core strengthening, LE PROM and manual stretching. Transfers, mobility, LE ROM, pt will benefit from continued breakdown of transfers to improve efficiency and mechanics, as well as working on more seated balance EOB.
--- NOTE | 2023-05-07 16:01 | PT.OTN ---
Current Diagnoses Paraplegia, unspecified (05/07/23) Other specified personal risk factors, not elsewhere classified (05/07/23) Other specified postprocedural states (05/07/23) Physical Therapy Treatment Note PT-OP-A Visit Information Start: 03/08/22 17:00 Freq: Status: Active Protocol: Document 05/07/23 15:17 DCW (Rec: 05/07/23 16:01 DCW [id number]) Out-Patient Physical Therapy Visit Information Visit Information Visit Type Treatment Note Visit Start Time 15:17 Visit Stop Time 16:00 Total Visit Minutes 43 Visit Number 106 Number of UNIVERSITY [employer]ATIONS RECRUITER Visits 0 Evaluation Information Evaluation Date 03/08/22 PT-OP-B Current Condition Start: 03/08/22 17:00 Freq: Status: Active Protocol: Document 03/08/22 11:15 DCW (Rec: 03/08/22 17:11 DCW [id number]) Current Condition History of Current Condition Onset Date 12/16/21 Current Complaints Paraplegia History of Current Condition Pt is a 71 year old male with a very unfortunate medical history. Pt was hiking [employer] on 12/16/21 with a friend, finished up, drive back to his friend's home to drop him off, and noticed his left leg was collapsing. By the time pt drove home, both legs were giving out and numb. Pt was suddenly paralyzed from the waist down, was taken to the ED, and was flown to [facility] on 12/17/21. The following day, he underwent a laminectomy to relieve pressure from the thoracic epidural hematoma which had developed following his hike, which was pressing on his spinal cord. Following surgery , pt was in recovery for a week and was then transferred to rehab for 20 days, when he was finally discharged home in a wheelchair on 01/19/22. Pt reports his surgeon informed him that it is a possibility that he gets some return of nerve function. Has experienced some changes in his right LE, but has no motor function at this time from ~ T10 down. Minimal sensory return on right side, none on left. Pt has been anxious to get in to therapy and do everything he can to help return to function. Pt's , who attended his evaluation, notes that she has been doing a lot of PROM in his legs at night to keep everything moving. Pt can feel some stretching during PROM in his right leg. Pt has additionally already started occupational therapy, and has been practicing some seated stabilization. Pt transfers with a slide board, but notes it is difficult to do into his car, because he has to transfer upward at an incline. Treatment Goals Patient/Caregiver Goals I will do anything possible to get out of this wheelchair. My neurologist told me he has seen people recover from this , so I am not giving up hope. PT-OP-C Subjective Start: 03/08/22 17:00 Freq: Status: Active Protocol: Document 05/07/23 15:17 DCW (Rec: 05/07/23 16:01 DCW [id number]) OP-PT Subjective Patient Comments Patient Comments Pt feeling good today PT-OP-G Mobility & Gait Start: 03/08/22 17:00 Freq: Status: Active Protocol: Document 02/13/23 12:50 DCW (Rec: 02/13/23 13:22 DCW [id number]) OP Mobility Evaluation Transfers Bed to Chair Transfers Transfers using UE Car Transfers uses slide board, stabilizes front to back and prevent slide down board Wheelchair Management Type of Wheelchair Manual w/c PT-OP-H Neuro Start: 03/08/22 17:00 Freq: Status: Active Protocol: Document 02/13/23 12:50 DCW (Rec: 02/13/23 13:22 DCW [id number]) Sensation Evaluation Gross Sensation Gross Sensation Left LE Impaired,Right LE Impaired,Trunk Impaired Sensation Description Paresthesia,Numbness,Tingling, Pins & [place],Burning Dermatome Impairments L1,L2,L3,L4,L5,S1,S2,S3,S4-5 Location Details Right Leg Light Touch Impaired Sharp/Dull Impaired Deep Pressure Intact/Normal Hot/Cold Absent Protective Sensation Absent Proprioception (Position) Impaired Kinesthesia (Movement) Impaired Two-Point Discrimination Impaired Tactile Localization Impaired Stereognosis Impaired Left Leg Light Touch Absent Sharp/Dull Absent Deep Pressure Absent Hot/Cold Impaired Protective Sensation Absent Proprioception (Position) Absent Kinesthesia (Movement) Impaired Two-Point Discrimination Absent Tactile Localization Absent Stereognosis Absent Deep Tendon Reflex & Clonus Assessment Deep Tendon Reflex Right Achilles Deep Tendon Reflex 1+ Diminished Right Patellar Deep Tendon Reflex 2+ Normal Left Achilles Deep Tendon Reflex 1+ Diminished Left Patellar Deep Tendon Reflex 0 Absent Muscle Tone Tone Assessment Right Lower Extremity Flexor Tone Description Moderate Hypertonicity Extensor Tone Description Moderate Hypertonicity Left Lower Extremity Flexor Tone Description Moderate Hypertonicity Extensor Tone Description Moderate Hypertonicity PT-OP-J Posture/Palpation/Skin Start: 03/08/22 17:00 Freq: Status: Active Protocol: Document 02/13/23 12:50 DCW (Rec: 02/13/23 13:22 DCW [id number]) Posture Evaluation Comments Posture Comments Sitting EOB with good core control and no instability. Recovers from most directional pushing, although eventually LEs went into extension spasm and pt required assist x1 to return to sitting. PT-OP-M Strength Start: 08/21/22 15:38 Freq: Status: Active Protocol: Document 02/13/23 12:50 DCW (Rec: 02/13/23 13:22 DCW [id number]) Hip Strength Hip Manual Muscle Testing Right Extension (S1) 2- Poor- Adduction 2- Poor- Left Extension (S1) 1 Trace Adduction 0 Zero Knee Strength Knee Manual Muscle Testing Right Flexion (S2) 1 Trace Extension (L3) 1 Trace Left Flexion (S2) 1 Trace Extension (L3) 1 Trace Ankle/Foot Strength Ankle and Foot Manual Muscle Testing Right Plantarflexion (S1) 1 Trace Left Plantarflexion (S1) 1 Trace PT-OP-Q Treatments Start: 03/08/22 17:00 Freq: Status: Active Protocol: Document 05/07/23 15:17 DCW (Rec: 05/07/23 16:01 DCW [id number]) Cardio Equipment Recumbent Elliptical (Biodex) Duration (Minutes) 10 Resistance 8 Seat Position 10 Other w/c<->biodex CG/min A Gym Equipment Shuttle Recovery Bilateral Squats Details with BUE assist on thighs Resistance 25# assisted, 12# unassisted Reps/Time Slight movements when unassisted, assisted back-> eccentric lowering Therapeutic Activity Therapeutic Activity squat/lateral scoot transfer Comments 1. w/c<>biodex CGA/Min A 2. w/c<>Leg press CGA 3. w/c<>mat CGA 4. Dep lift laterally along EOB working on head-hips relationship and hand placement x10 each way, CGA/ SBA /c min-mod verbal cues Neuro Re-Education Treatment Balance Activities Seated balance Details SBA/CGA for all, occasional Min A for LOB Comments 1. AP mvmt w/ dowel in BUE seated EOB 2. lateral taps w/ dowel PT-OP-T Assessment and Plan Start: 03/08/22 17:00 Freq: Status: Active Protocol: Document 05/07/23 15:17 DCW (Rec: 05/07/23 16:01 DCW [id number]) Physical Therapy Assessment Goals Three Impairment Pt does not have any motor function throughout bilateral LEs Short Term Goal (STG) Pt to demonstrate 1/5 trace motor contraction in at least one quad in order to begin focus on LE mobility if neural functional return begins. STG Duration Met Jail Goal (LTG) Pt to demonstrate right quad strength to at least 2/5, demonstrating movement into ROM in an antigravity position LTG Duration 05/14/23 - improving One Impairment Pt does not have an appropriate home exercise program Short Term Goal (STG) Pt to be independent and compliant with an appropriate HEP 07/30/22: progressing: resisted tricep ext, OH raises in w/c, supine HABD, added scaption OH B #2. STG Duration 04/15/23 Progressing Assessment Summary Assessment Very good tolerance to EOB balance today, showing good improvement with stability while reaching with PVC. Continue to work on transfers, seated balance, and LE mobility. Physical Therapy Plan Frequency and Duration Frequency of Treatment 2x/Week Plan of Care Start Date 02/13/23 Plan of Care End Date 05/14/23 Therapeutic Interventions Therapeutic Interventions Aquatic Therapy,Balance Training,Coordination Training ,Gait Training,Home Exercise Program,Manual Therapy, Neuromuscular Re-education, Orthotic/Prosthetic Management ,Patient/Caregiver Education, Self-Care/Home Management, Sensory Integration,Soft Tissue Mobilization, Therapeutic Activities, Therapeutic Exercises, Wheelchair Management Next Visit Focus/Plan Next Note Type Treatment Note Next Visit Plan *Longest loop/straps for stander to support posterior pelvic support both on lower cell changer bar hook. *Stander next POC:Alternate Shuttle recovery and sit/stander. Continue UE and core strengthening, LE PROM and manual stretching. Transfers, mobility, LE ROM, pt will benefit from continued breakdown of transfers to improve efficiency and mechanics, as well as working on more seated balance EOB.
--- NOTE | 2023-05-09 16:46 | PT.OTN ---
Current Diagnoses Paraplegia, unspecified (05/09/23) Other specified personal risk factors, not elsewhere classified (05/09/23) Other specified postprocedural states (05/09/23) Physical Therapy Treatment Note PT-OP-A Visit Information Start: 03/08/22 17:00 Freq: Status: Active Protocol: Document 05/09/23 15:19 DCW (Rec: 05/09/23 15:57 DCW [id number]) Out-Patient Physical Therapy Visit Information Visit Information Visit Type Treatment Note Visit Start Time 15:19 Visit Stop Time 16:00 Total Visit Minutes 41 Visit Number 107 Number of MARRIAGE AND FAMILY COUNSELOR Visits 0 Evaluation Information Evaluation Date 03/08/22 PT-OP-B Current Condition Start: 03/08/22 17:00 Freq: Status: Active Protocol: Document 03/08/22 11:15 DCW (Rec: 03/08/22 17:11 DCW [id number]) Current Condition History of Current Condition Onset Date 12/16/21 Current Complaints Paraplegia History of Current Condition Pt is a 71 year old male with a very unfortunate medical history. Pt was hiking [place] on 12/16/21 with a friend, finished up, drive back to his friend's home to drop him off, and noticed his left leg was collapsing. By the time pt drove home, both legs were giving out and numb. Pt was suddenly paralized from the waist down, was taken to the ED, and was flown to [facility] on 12/17/21. The following day, he underwent a laminectomy to relieve pressure from the thoracic epidural hematoma which had developed following his hike, which was pressing on his spinal cord. Following surgery , pt was in recovery for a week and was then transfered to rehab for 20 days, when he was finally discharged home in a wheelchair on 01/19/22. Pt reports his surgeon informed him that it is a possibility that he gets some return of nerve function. Has experienced some changes in his right LE, but has no motor function at this time from ~ T10 down. Minimal sensory return on right side, none on left. Pt has been anxious to get in to therapy and do everything he can to help return to function. Pt's , who attended his evaluation, notes that she has been doing a lot of PROM in his legs at night to keep everything moving. Pt can feel some stretching during PROM in his right leg. Pt has additionally already started occupational therapy, and has been practicing some seated stabilization. Pt transfers with a slide board, but notes it is difficult to do into his car, because he has to transfer upward at an incline. Treatment Goals Patient/Caregiver Goals I will do anything possible to get out of this wheelchair. My neurologist told me he has seen people recover from this , so I am not giving up hope. PT-OP-C Subjective Start: 03/08/22 17:00 Freq: Status: Active Protocol: Document 05/09/23 15:19 DCW (Rec: 05/09/23 15:57 DCW [id number]) OP-PT Subjective Patient Comments Patient Comments Pt notes he has been feeling very good recently. PT-OP-G Mobility & Gait Start: 03/08/22 17:00 Freq: Status: Active Protocol: Document 05/09/23 15:19 DCW (Rec: 05/09/23 15:48 DCW [id number]) OP Mobility Evaluation Transfers Bed to Chair Transfers Transfers using UE, improved with side-side movement Car Transfers uses slide board, stabilizes front to back and prevent slide down board Wheelchair Management Type of Wheelchair Manual w/c PT-OP-H Neuro Start: 03/08/22 17:00 Freq: Status: Active Protocol: Document 05/09/23 15:19 DCW (Rec: 05/09/23 15:48 DCW [id number]) Sensation Evaluation Gross Sensation Gross Sensation Left LE Impaired,Right LE Impaired,Trunk Impaired Sensation Description Paresthesia,Numbness,Tingling, Pins & [place],Burning Dermatome Impairments L1,L2,L3,L4,L5,S1,S2,S3,S4-5 Location Details Right Leg Light Touch Impaired Sharp/Dull Impaired Deep Pressure Intact/Normal Hot/Cold Absent Protective Sensation Absent Proprioception (Position) Impaired Kinesthesia (Movement) Impaired Two-Point Discrimination Impaired Tactile Localization Impaired Stereognosis Impaired Left Leg Light Touch Absent Sharp/Dull Absent Deep Pressure Absent Hot/Cold Impaired Protective Sensation Absent Proprioception (Position) Absent Kinesthesia (Movement) Impaired Two-Point Discrimination Absent Tactile Localization Absent Stereognosis Absent Comments Summary Comments R deep pressure present in thigh and calf, not into foot and toes. R protective reflex vs sharp present Deep Tendon Reflex & Clonus Assessment Deep Tendon Reflex Right Achilles Deep Tendon Reflex 1+ Diminished Right Patellar Deep Tendon Reflex 2+ Normal Left Achilles Deep Tendon Reflex 1+ Diminished Left Patellar Deep Tendon Reflex 1+ Diminished Muscle Tone Tone Assessment Right Lower Extremity Flexor Tone Description Moderate Hypertonicity Extensor Tone Description Moderate Hypertonicity Left Lower Extremity Flexor Tone Description Moderate Hypertonicity Extensor Tone Description Moderate Hypertonicity PT-OP-J Posture/Palpation/Skin Start: 03/08/22 17:00 Freq: Status: Active Protocol: Document 05/09/23 15:19 DCW (Rec: 05/09/23 15:48 DCW [id number]) Posture Evaluation Comments Posture Comments Sitting EOB with good core control and no instability. Recovers from most directional pushing. Improved ability to reach outside of base of support. PT-OP-M Strength Start: 08/21/22 15:38 Freq: Status: Active Protocol: Document 05/09/23 15:19 DCW (Rec: 05/09/23 15:48 DCW [id number]) Hip Strength Hip Manual Muscle Testing Right Extension (S1) 2- Poor- Adduction 2- Poor- Left Extension (S1) 2- Poor- Adduction 1 Trace Knee Strength Knee Manual Muscle Testing Right Flexion (S2) 1 Trace Extension (L3) 1 Trace Left Flexion (S2) 1 Trace Extension (L3) 1 Trace Ankle/Foot Strength Ankle and Foot Manual Muscle Testing Right Plantarflexion (S1) 2- Poor- Left Plantarflexion (S1) 1 Trace PT-OP-Q Treatments Start: 03/08/22 17:00 Freq: Status: Active Protocol: Document 05/09/23 15:19 DCW (Rec: 05/09/23 15:57 DCW [id number]) Neuro Re-Education Treatment Balance Activities Seated balance Details SBA/CGA for all, occasional Min A for LOB Comments 1. AP mvmt w/ dowel (1#) in BUE seated EOB 2. lateral taps w/ dowel (1#) PT-OP-T Assessment and Plan Start: 03/08/22 17:00 Freq: Status: Active Protocol: Document 05/09/23 15:19 DCW (Rec: 05/09/23 16:46 DCW [id number]) Physical Therapy Assessment Impairments Impairments Activity Tolerance,Balance, Coordination,Functional Activities,Functional Mobility ,Gait,Integument,Sensation, Soft Tissue Mobility,Strength, Tone,Transfers Goals Three Impairment Pt does not have any motor function throughout bilateral LEs Short Term Goal (STG) Pt to demonstrate 1/5 trace motor contraction in at least one quad in order to begin focus on LE mobility if neural functional return begins. STG Duration Met Assisted Goal (LTG) Pt to demonstrate right quad strength to at least 2/5, demonstrating movement into ROM in an antigravity position LTG Duration 08/07/23 - improving Two Impairment Pt struggles with lateral transfer/scooting along EOB Assisted Goal (LTG) Pt to perform lateral scoot transfer using proper technique without any verbal cues 4x in a row. LTG Duration 08/07/23 One Impairment Pt does not have an appropriate home exercise program Short Term Goal (STG) Pt to be independent and compliant with an appropriate HEP 07/30/22: progressing: resisted tricep ext, OH raises in w/c, supine HABD, added scaption OH B #2. STG Duration 04/15/23 Progressing Assessment Summary Assessment Pt showing improvement with motor actovation in left leg finally, as well as return of (impared) left patellar reflex . Pt still struggles with hot/ cold sensation and protective sensation bilaterally. Transfers improving significantly with recent increased focus on transfer technique. Pt should continue to benefit from skilled therapeutic intervention focused on increasing independence of functional mobility, improving postural control, and strengthening available motor function. Physical Therapy Plan Frequency and Duration Frequency of Treatment 2x/Week Plan of Care Start Date 05/09/23 Plan of Care End Date 08/07/23 Therapeutic Interventions Therapeutic Interventions Aquatic Therapy,Balance Training,Coordination Training ,Gait Training,Home Exercise Program,Manual Therapy, Neuromuscular Re-education, Orthotic/Prosthetic Management ,Patient/Caregiver Education, Self-Care/Home Management, Sensory Integration,Soft Tissue Mobilization, Therapeutic Activities, Therapeutic Exercises, Wheelchair Management Next Visit Focus/Plan Next Note Type Treatment Note Next Visit Plan *Longest loop/straps for stander to support posterior pelvic support both on lower bundles hanger bar hook. *Stander next POC:Alternate Shuttle recovery and sit/stander. Continue UE and core strengthening, LE PROM and manual stretching. Transfers, mobility, LE ROM, pt will benefit from continued breakdown of transfers to improve efficiency and mechanics, as well as working on more seated balance EOB.
--- NOTE | 2023-05-09 16:47 | PT.OPPOC ---
Physical, Occupational & Speech Therapy At [facility] Current Diagnoses Paraplegia, unspecified (05/09/23) Other specified personal risk factors, not elsewhere classified (05/09/23) Other specified postprocedural states (05/09/23) Visit Care Team Role Provider Type Octavio Yates MD Family Provider Physician Primary Care Provider Specialty: Family Practice Address: [address] [place] [address], [address], [address] Email: [email or web address] Charleen Arias PA-C Attending Provider Advanced Telephone Installer Referring Provider Specialty: Medical Address: [address] [place] [address], [place] [address], [place], [address] Email: [email or web address] Plan Of Care PT-OP-T Assessment and Plan Start: 03/08/22 17:00 Freq: Status: Active Protocol: Document 05/09/23 15:19 DCW (Rec: 05/09/23 16:46 DCW [id number]) Physical Therapy Assessment Impairments Impairments Activity Tolerance,Balance, Coordination,Functional Activities,Functional Mobility ,Gait,Integument,Sensation, Soft Tissue Mobility,Strength, Tone,Transfers Goals Three Impairment Pt does not have any motor function throughout bilateral LEs Short Term Goal (STG) Pt to demonstrate 1/5 trace motor contraction in at least one quad in order to begin focus on LE mobility if neural functional return begins. STG Duration Met Halfway Goal (LTG) Pt to demonstrate right quad strength to at least 2/5, demonstrating movement into ROM in an antigravity position LTG Duration 08/07/23 - improving Two Impairment Pt struggles with lateral transfer/scooting along EOB Halfway Goal (LTG) Pt to perform lateral scoot transfer using proper technique without any verbal cues 4x in a row. LTG Duration 08/07/23 One Impairment Pt does not have an appropriate home exercise program Short Term Goal (STG) Pt to be independent and compliant with an appropriate HEP 07/30/22: progressing: resisted tricep ext, OH raises in w/c, supine HABD, added scaption OH B #2. STG Duration 04/15/23 Progressing Assessment Summary Assessment Pt showing improvement with motor actovation in left leg finally, as well as return of (impared) left patellar reflex . Pt still struggles with hot/ cold sensation and protective sensation bilaterally. Transfers improving significantly with recent increased focus on transfer technique. Pt should continue to benefit from skilled therapeutic intervention focused on increasing independence of functional mobility, improving postural control, and strengthening available motor function. Physical Therapy Plan Frequency and Duration Frequency of Treatment 2x/Week Plan of Care Start Date 05/09/23 Plan of Care End Date 08/07/23 Therapeutic Interventions Therapeutic Interventions Aquatic Therapy,Balance Training,Coordination Training ,Gait Training,Home Exercise Program,Manual Therapy, Neuromuscular Re-education, Orthotic/Prosthetic Management ,Patient/Caregiver Education, Self-Care/Home Management, Sensory Integration,Soft Tissue Mobilization, Therapeutic Activities, Therapeutic Exercises, Wheelchair Management Next Visit Focus/Plan Next Note Type Treatment Note Next Visit Plan *Longest loop/straps for stander to support posterior pelvic support both on lower wet silk hanger bar hook. *Stander next POC:Alternate Shuttle recovery and sit/stander. Continue UE and core strengthening, LE PROM and manual stretching. Transfers, mobility, LE ROM, pt will benefit from continued breakdown of transfers to improve efficiency and mechanics, as well as working on more seated balance EOB. Plan of Care Dates Plan of Care Start Date 05/09/23 Plan of Care End Date 08/07/23 Electronically Signed by: Jean Ruggiero, PT 05/09/23 3909 If you are in agreement with this Plan of Care, please return a signed and dated copy. I have reviewed this Plan of Care and certify that the skilled therapy services above are required to meet the patient?s needs. Physician Signature Date Printed Name and Credentials Clinical Instructor Signature Printed Name and Credentials
--- NOTE | 2023-05-14 12:41 | PT.OTN ---
Current Diagnoses Paraplegia, unspecified (05/14/23) Other specified personal risk factors, not elsewhere classified (05/14/23) Other specified postprocedural states (05/14/23) Physical Therapy Treatment Note PT-OP-A Visit Information Start: 03/08/22 17:00 Freq: Status: Active Protocol: Document 05/14/23 12:03 DCW (Rec: 05/14/23 12:41 DCW [id number]) Out-Patient Physical Therapy Visit Information Visit Information Visit Type Treatment Note Visit Start Time 12:03 Visit Stop Time 12:45 Total Visit Minutes 42 Visit Number 108 Number of RESEARCH & ANALYTICS MANAGER Visits 0 Evaluation Information Evaluation Date 03/08/22 PT-OP-B Current Condition Start: 03/08/22 17:00 Freq: Status: Active Protocol: Document 03/08/22 11:15 DCW (Rec: 03/08/22 17:11 DCW [id number]) Current Condition History of Current Condition Onset Date 12/16/21 Current Complaints Paraplegia History of Current Condition Pt is a 71 year old male with a very unfortunate medical history. Pt was hiking [place] on 12/16/21 with a friend, finished up, drive back to his friend's home to drop him off, and noticed his left leg was collapsing. By the time pt drove home, both legs were giving out and numb. Pt was suddenly paralized from the waist down, was taken to the ED, and was flown to [facility] on 12/17/21. The following day, he underwent a laminectomy to relieve pressure from the thoracic epidural hematoma which had developed following his hike, which was pressing on his spinal cord. Following surgery , pt was in recovery for a week and was then transfered to rehab for 20 days, when he was finally discharged home in a wheelchair on 01/19/22. Pt reports his surgeon informed him that it is a possibility that he gets some return of nerve function. Has experienced some changes in his right LE, but has no motor function at this time from ~ T10 down. Minimal sensory return on right side, none on left. Pt has been anxious to get in to therapy and do everything he can to help return to function. Pt's , who attended his evaluation, notes that she has been doing a lot of PROM in his legs at night to keep everything moving. Pt can feel some stretching during PROM in his right leg. Pt has additionally already started occupational therapy, and has been practicing some seated stabilization. Pt transfers with a slide board, but notes it is difficult to do into his car, because he has to transfer upward at an incline. Treatment Goals Patient/Caregiver Goals I will do anything possible to get out of this wheelchair. My neurologist told me he has seen people recover from this , so I am not giving up hope. PT-OP-C Subjective Start: 03/08/22 17:00 Freq: Status: Active Protocol: Document 05/14/23 12:03 DCW (Rec: 05/14/23 12:41 DCW [id number]) OP-PT Subjective Patient Comments Patient Comments Pt doing well today, no new complaints. PT-OP-G Mobility & Gait Start: 03/08/22 17:00 Freq: Status: Active Protocol: Document 05/09/23 15:19 DCW (Rec: 05/09/23 15:48 DCW [id number]) OP Mobility Evaluation Transfers Bed to Chair Transfers Transfers using UE, improved with side-side movement Car Transfers uses slide board, stabilizes front to back and prevent slide down board Wheelchair Management Type of Wheelchair Manual w/c PT-OP-H Neuro Start: 03/08/22 17:00 Freq: Status: Active Protocol: Document 05/09/23 15:19 DCW (Rec: 05/09/23 15:48 DCW [id number]) Sensation Evaluation Gross Sensation Gross Sensation Left LE Impaired,Right LE Impaired,Trunk Impaired Sensation Description Paresthesia,Numbness,Tingling, Pins & [place],Burning Dermatome Impairments L1,L2,L3,L4,L5,S1,S2,S3,S4-5 Location Details Right Leg Light Touch Impaired Sharp/Dull Impaired Deep Pressure Intact/Normal Hot/Cold Absent Protective Sensation Absent Proprioception (Position) Impaired Kinesthesia (Movement) Impaired Two-Point Discrimination Impaired Tactile Localization Impaired Stereognosis Impaired Left Leg Light Touch Absent Sharp/Dull Absent Deep Pressure Absent Hot/Cold Impaired Protective Sensation Absent Proprioception (Position) Absent Kinesthesia (Movement) Impaired Two-Point Discrimination Absent Tactile Localization Absent Stereognosis Absent Comments Summary Comments R deep pressure present in thigh and calf, not into foot and toes. R protective reflex vs sharp present Deep Tendon Reflex & Clonus Assessment Deep Tendon Reflex Right Achilles Deep Tendon Reflex 1+ Diminished Right Patellar Deep Tendon Reflex 2+ Normal Left Achilles Deep Tendon Reflex 1+ Diminished Left Patellar Deep Tendon Reflex 1+ Diminished Muscle Tone Tone Assessment Right Lower Extremity Flexor Tone Description Moderate Hypertonicity Extensor Tone Description Moderate Hypertonicity Left Lower Extremity Flexor Tone Description Moderate Hypertonicity Extensor Tone Description Moderate Hypertonicity PT-OP-J Posture/Palpation/Skin Start: 03/08/22 17:00 Freq: Status: Active Protocol: Document 05/09/23 15:19 DCW (Rec: 05/09/23 15:48 DCW [id number]) Posture Evaluation Comments Posture Comments Sitting EOB with good core control and no instability. Recovers from most directional pushing. Improved ability to reach outside of base of support. PT-OP-M Strength Start: 08/21/22 15:38 Freq: Status: Active Protocol: Document 05/09/23 15:19 DCW (Rec: 05/09/23 15:48 DCW [id number]) Hip Strength Hip Manual Muscle Testing Right Extension (S1) 2- Poor- Adduction 2- Poor- Left Extension (S1) 2- Poor- Adduction 1 Trace Knee Strength Knee Manual Muscle Testing Right Flexion (S2) 1 Trace Extension (L3) 1 Trace Left Flexion (S2) 1 Trace Extension (L3) 1 Trace Ankle/Foot Strength Ankle and Foot Manual Muscle Testing Right Plantarflexion (S1) 2- Poor- Left Plantarflexion (S1) 1 Trace PT-OP-Q Treatments Start: 03/08/22 17:00 Freq: Status: Active Protocol: Document 05/14/23 12:03 DCW (Rec: 05/14/23 12:41 DCW [id number]) Cardio Equipment Recumbent Elliptical (Biodex) Duration (Minutes) 10 Resistance 8 Seat Position 10 Other w/c<->biodex CG/min A Therapeutic Activity Therapeutic Activity sit to stander Name Long 1st hole strap and longest lrg looped strap both on lower hook Reps/Minutes 1 stand 25 min Comments in //bars, 2 person (1 posterior pelvic/low back support, 2nd person stander control) Noted quad and gluteal firing with wt shifting forward/back/ lateral with BUE support on standing frame bars. Min cues for elongated posturing for TS ext. Improved decreased RLE flexor tone, ascend into standing with only 3 brief pauses to acclimate to flexor tone into LE extension responses. [ End ] squat/lateral scoot transfer Comments 1. w/c<>biodex CGA/Min A PT-OP-T Assessment and Plan Start: 03/08/22 17:00 Freq: Status: Active Protocol: Document 05/14/23 12:03 DCW (Rec: 05/14/23 12:41 DCW [id number]) Physical Therapy Assessment Impairments Impairments Activity Tolerance,Balance, Coordination,Functional Activities,Functional Mobility ,Gait,Integument,Sensation, Soft Tissue Mobility,Strength, Tone,Transfers Goals Three Impairment Pt does not have any motor function throughout bilateral LEs Short Term Goal (STG) Pt to demonstrate 1/5 trace motor contraction in at least one quad in order to begin focus on LE mobility if neural functional return begins. STG Duration Met Custodial Goal (LTG) Pt to demonstrate right quad strength to at least 2/5, demonstrating movement into ROM in an antigravity position LTG Duration 08/07/23 - improving Two Impairment Pt struggles with lateral transfer/scooting along EOB Security Rep Goal (LTG) Pt to perform lateral scoot transfer using proper technique without any verbal cues 4x in a row. LTG Duration 08/07/23 One Impairment Pt does not have an appropriate home exercise program Short Term Goal (STG) Pt to be independent and compliant with an appropriate HEP 07/30/22: progressing: resisted tricep ext, OH raises in w/c, supine HABD, added scaption OH B #2. STG Duration 04/15/23 Progressing Assessment Summary Assessment Good response to treatment today, continue to focus on transfers, standing tolerance, and functional movement. Physical Therapy Plan Frequency and Duration Frequency of Treatment 2x/Week Plan of Care Start Date 05/09/23 Plan of Care End Date 08/07/23 Therapeutic Interventions Therapeutic Interventions Aquatic Therapy,Balance Training,Coordination Training ,Gait Training,Home Exercise Program,Manual Therapy, Neuromuscular Re-education, Orthotic/Prosthetic Management ,Patient/Caregiver Education, Self-Care/Home Management, Sensory Integration,Soft Tissue Mobilization, Therapeutic Activities, Therapeutic Exercises, Wheelchair Management Next Visit Focus/Plan Next Note Type Treatment Note Next Visit Plan *Longest loop/straps for stander to support posterior pelvic support both on lower rod hanger bar hook. *Leg press next POC:Alternate Shuttle recovery and sit/stander. Continue UE and core strengthening, LE PROM and manual stretching. Transfers, mobility, LE ROM, pt will benefit from continued breakdown of transfers to improve efficiency and mechanics, as well as working on more seated balance EOB.
--- NOTE | 2023-05-16 14:30 | PT.OTN ---
Current Diagnoses Paraplegia, unspecified (05/16/23) Other specified personal risk factors, not elsewhere classified (05/16/23) Other specified postprocedural states (05/16/23) Physical Therapy Treatment Note PT-OP-A Visit Information Start: 03/08/22 17:00 Freq: Status: Active Protocol: Document 05/16/23 13:48 DCW (Rec: 05/16/23 14:30 DCW [id number]) Out-Patient Physical Therapy Visit Information Visit Information Visit Type Treatment Note Visit Start Time 13:48 Visit Stop Time 14:30 Total Visit Minutes 42 Visit Number 109 Number of WATER POLLUTION CONTROL TECHNICIAN Visits 0 Evaluation Information Evaluation Date 03/08/22 PT-OP-B Current Condition Start: 03/08/22 17:00 Freq: Status: Active Protocol: Document 03/08/22 11:15 DCW (Rec: 03/08/22 17:11 DCW [id number]) Current Condition History of Current Condition Onset Date 12/16/21 Current Complaints Paraplegia History of Current Condition Pt is a 71 year old male with a very unfortunate medical history. Pt was hiking [place] on 12/16/21 with a friend, finished up, drive back to his friend's home to drop him off, and noticed his left leg was collapsing. By the time pt drove home, both legs were giving out and numb. Pt was suddenly paralized from the waist down, was taken to the ED, and was flown to [facility] on 12/17/21. The following day, he underwent a laminectomy to relieve pressure from the thoracic epidural hematoma which had developed following his hike, which was pressing on his spinal cord. Following surgery , pt was in recovery for a week and was then transfered to rehab for 20 days, when he was finally discharged home in a wheelchair on 01/19/22. Pt reports his surgeon informed him that it is a possibility that he gets some return of nerve function. Has experienced some changes in his right LE, but has no motor function at this time from ~ T10 down. Minimal sensory return on right side, none on left. Pt has been anxious to get in to therapy and do everything he can to help return to function. Pt's , who attended his evaluation, notes that she has been doing a lot of PROM in his legs at night to keep everything moving. Pt can feel some stretching during PROM in his right leg. Pt has additionally already started occupational therapy, and has been practicing some seated stabilization. Pt transfers with a slide board, but notes it is difficult to do into his car, because he has to transfer upward at an incline. Treatment Goals Patient/Caregiver Goals I will do anything possible to get out of this wheelchair. My neurologist told me he has seen people recover from this , so I am not giving up hope. PT-OP-C Subjective Start: 03/08/22 17:00 Freq: Status: Active Protocol: Document 05/16/23 13:48 DCW (Rec: 05/16/23 14:30 DCW [id number]) OP-PT Subjective Patient Comments Patient Comments Pt feeling good, noticing some slight improvements overall in the sensation of his right leg. PT-OP-G Mobility & Gait Start: 03/08/22 17:00 Freq: Status: Active Protocol: Document 05/09/23 15:19 DCW (Rec: 05/09/23 15:48 DCW [id number]) OP Mobility Evaluation Transfers Bed to Chair Transfers Transfers using UE, improved with side-side movement Car Transfers uses slide board, stabilizes front to back and prevent slide down board Wheelchair Management Type of Wheelchair Manual w/c PT-OP-H Neuro Start: 03/08/22 17:00 Freq: Status: Active Protocol: Document 05/09/23 15:19 DCW (Rec: 05/09/23 15:48 DCW [id number]) Sensation Evaluation Gross Sensation Gross Sensation Left LE Impaired,Right LE Impaired,Trunk Impaired Sensation Description Paresthesia,Numbness,Tingling, Pins & Victor,Burning Dermatome Impairments L1,L2,L3,L4,L5,S1,S2,S3,S4-5 Location Details Right Leg Light Touch Impaired Sharp/Dull Impaired Deep Pressure Intact/Normal Hot/Cold Absent Protective Sensation Absent Proprioception (Position) Impaired Kinesthesia (Movement) Impaired Two-Point Discrimination Impaired Tactile Localization Impaired Stereognosis Impaired Left Leg Light Touch Absent Sharp/Dull Absent Deep Pressure Absent Hot/Cold Impaired Protective Sensation Absent Proprioception (Position) Absent Kinesthesia (Movement) Impaired Two-Point Discrimination Absent Tactile Localization Absent Stereognosis Absent Comments Summary Comments R deep pressure present in thigh and calf, not into foot and toes. R protective reflex vs sharp present Deep Tendon Reflex & Clonus Assessment Deep Tendon Reflex Right Achilles Deep Tendon Reflex 1+ Diminished Right Patellar Deep Tendon Reflex 2+ Normal Left Achilles Deep Tendon Reflex 1+ Diminished Left Patellar Deep Tendon Reflex 1+ Diminished Muscle Tone Tone Assessment Right Lower Extremity Flexor Tone Description Moderate Hypertonicity Extensor Tone Description Moderate Hypertonicity Left Lower Extremity Flexor Tone Description Moderate Hypertonicity Extensor Tone Description Moderate Hypertonicity PT-OP-J Posture/Palpation/Skin Start: 03/08/22 17:00 Freq: Status: Active Protocol: Document 05/09/23 15:19 DCW (Rec: 05/09/23 15:48 DCW [id number]) Posture Evaluation Comments Posture Comments Sitting EOB with good core control and no instability. Recovers from most directional pushing. Improved ability to reach outside of base of support. PT-OP-M Strength Start: 08/21/22 15:38 Freq: Status: Active Protocol: Document 05/09/23 15:19 DCW (Rec: 05/09/23 15:48 DCW [id number]) Hip Strength Hip Manual Muscle Testing Right Extension (S1) 2- Poor- Adduction 2- Poor- Left Extension (S1) 2- Poor- Adduction 1 Trace Knee Strength Knee Manual Muscle Testing Right Flexion (S2) 1 Trace Extension (L3) 1 Trace Left Flexion (S2) 1 Trace Extension (L3) 1 Trace Ankle/Foot Strength Ankle and Foot Manual Muscle Testing Right Plantarflexion (S1) 2- Poor- Left Plantarflexion (S1) 1 Trace PT-OP-Q Treatments Start: 03/08/22 17:00 Freq: Status: Active Protocol: Document 05/16/23 13:48 DCW (Rec: 05/16/23 14:30 DCW [id number]) Cardio Equipment Recumbent Elliptical (Biodex) Duration (Minutes) 10 Resistance 8 Seat Position 10 Other w/c<->biodex CG/min A Gym Equipment Shuttle Recovery Bilateral Squats Details with BUE assist on thighs Resistance 25# assisted, 12# unassisted Reps/Time Slight movements when unassisted, assisted back-> eccentric lowering Therapeutic Activity Therapeutic Activity squat/lateral scoot transfer Comments 1. w/c<>biodex CGA/Min A 2. w/c<>Leg press CGA 3. w/c<>mat CGA 4. Dep lift laterally along EOB working on head-hips relationship and hand placement x10 each way, CGA/ SBA /c min-mod verbal cues Neuro Re-Education Treatment Balance Activities Seated balance Details SBA/CGA for all, occasional Min A for LOB Comments 1. AP mvmt w/ dowel (2#) in BUE seated EOB 2. lateral taps w/ dowel (2#) PT-OP-T Assessment and Plan Start: 03/08/22 17:00 Freq: Status: Active Protocol: Document 05/16/23 13:48 DCW (Rec: 05/16/23 14:30 DCW [id number]) Physical Therapy Assessment Impairments Impairments Activity Tolerance,Balance, Coordination,Functional Activities,Functional Mobility ,Gait,Integument,Sensation, Soft Tissue Mobility,Strength, Tone,Transfers Goals Three Impairment Pt does not have any motor function throughout bilateral LEs Short Term Goal (STG) Pt to demonstrate 1/5 trace motor contraction in at least one quad in order to begin focus on LE mobility if neural functional return begins. STG Duration Met Seasonal Driver Goal (LTG) Pt to demonstrate right quad strength to at least 2/5, demonstrating movement into ROM in an antigravity position LTG Duration 08/07/23 - improving Two Impairment Pt struggles with lateral transfer/scooting along EOB Seasonal Driver Goal (LTG) Pt to perform lateral scoot transfer using proper technique without any verbal cues 4x in a row. LTG Duration 08/07/23 One Impairment Pt does not have an appropriate home exercise program Short Term Goal (STG) Pt to be independent and compliant with an appropriate HEP 07/30/22: progressing: resisted tricep ext, OH raises in w/c, supine HABD, added scaption OH B #2. STG Duration 04/15/23 Progressing Assessment Summary Assessment Much better today with seated balance/stabilization, even with increased weight on PVC reaching outside KI[place]. Physical Therapy Plan Frequency and Duration Frequency of Treatment 2x/Week Plan of Care Start Date 05/09/23 Plan of Care End Date 08/07/23 Therapeutic Interventions Therapeutic Interventions Aquatic Therapy,Balance Training,Coordination Training ,Gait Training,Home Exercise Program,Manual Therapy, Neuromuscular Re-education, Orthotic/Prosthetic Management ,Patient/Caregiver Education, Self-Care/Home Management, Sensory Integration,Soft Tissue Mobilization, Therapeutic Activities, Therapeutic Exercises, Wheelchair Management Next Visit Focus/Plan Next Note Type Treatment Note Next Visit Plan *Longest loop/straps for stander to support posterior pelvic support both on lower garage door hanger bar hook. *Stander next POC:Alternate Shuttle recovery and sit/stander. Continue UE and core strengthening, LE PROM and manual stretching. Transfers, mobility, LE ROM, pt will benefit from continued breakdown of transfers to improve efficiency and mechanics, as well as working on more seated balance EOB.
--- NOTE | 2023-05-20 11:58 | PT.OTN ---
Current Diagnoses Paraplegia, unspecified (05/20/23) Other specified personal risk factors, not elsewhere classified (05/20/23) Other specified postprocedural states (05/20/23) Physical Therapy Treatment Note PT-OP-A Visit Information Start: 03/08/22 17:00 Freq: Status: Active Protocol: Document 05/20/23 11:18 DCW (Rec: 05/20/23 11:41 DCW [id number]) Out-Patient Physical Therapy Visit Information Visit Information Visit Type Treatment Note Visit Start Time 11:18 Visit Stop Time 12:00 Total Visit Minutes 43 Visit Number 110 Number of SOLE ROUNDING MACHINE OPERATOR Visits 0 Evaluation Information Evaluation Date 03/08/22 PT-OP-B Current Condition Start: 03/08/22 17:00 Freq: Status: Active Protocol: Document 03/08/22 11:15 DCW (Rec: 03/08/22 17:11 DCW [id number]) Current Condition History of Current Condition Onset Date 12/16/21 Current Complaints Paraplegia History of Current Condition Pt is a 71 year old male with a very unfortunate medical history. Pt was hiking [place] on 12/16/21 with a friend, finished up, drive back to his friend's home to drop him off, and noticed his left leg was collapsing. By the time pt drove home, both legs were giving out and numb. Pt was suddenly paralized from the waist down, was taken to the ED, and was flown to [facility] on 12/17/21. The following day, he underwent a laminectomy to relieve pressure from the thoracic epidural hematoma which had developed following his hike, which was pressing on his spinal cord. Following surgery , pt was in recovery for a week and was then transfered to rehab for 20 days, when he was finally discharged home in a wheelchair on 01/19/22. Pt reports his surgeon informed him that it is a possibility that he gets some return of nerve function. Has experienced some changes in his right LE, but has no motor function at this time from ~ T10 down. Minimal sensory return on right side, none on left. Pt has been anxious to get in to therapy and do everything he can to help return to function. Pt's , who attended his evaluation, notes that she has been doing a lot of PROM in his legs at night to keep everything moving. Pt can feel some stretching during PROM in his right leg. Pt has additionally already started occupational therapy, and has been practicing some seated stabilization. Pt transfers with a slide board, but notes it is difficult to do into his car, because he has to transfer upward at an incline. Treatment Goals Patient/Caregiver Goals I will do anything possible to get out of this wheelchair. My neurologist told me he has seen people recover from this , so I am not giving up hope. PT-OP-C Subjective Start: 03/08/22 17:00 Freq: Status: Active Protocol: Document 05/20/23 11:18 DCW (Rec: 05/20/23 11:41 DCW [id number]) OP-PT Subjective Patient Comments Patient Comments Pt reports his hind end is really sore today. PT-OP-G Mobility & Gait Start: 03/08/22 17:00 Freq: Status: Active Protocol: Document 05/09/23 15:19 DCW (Rec: 05/09/23 15:48 DCW [id number]) OP Mobility Evaluation Transfers Bed to Chair Transfers Transfers using UE, improved with side-side movement Car Transfers uses slide board, stabilizes front to back and prevent slide down board Wheelchair Management Type of Wheelchair Manual w/c PT-OP-H Neuro Start: 03/08/22 17:00 Freq: Status: Active Protocol: Document 05/09/23 15:19 DCW (Rec: 05/09/23 15:48 DCW [id number]) Sensation Evaluation Gross Sensation Gross Sensation Left LE Impaired,Right LE Impaired,Trunk Impaired Sensation Description Paresthesia,Numbness,Tingling, Pins & [place],Burning Dermatome Impairments L1,L2,L3,L4,L5,S1,S2,S3,S4-5 Location Details Right Leg Light Touch Impaired Sharp/Dull Impaired Deep Pressure Intact/Normal Hot/Cold Absent Protective Sensation Absent Proprioception (Position) Impaired Kinesthesia (Movement) Impaired Two-Point Discrimination Impaired Tactile Localization Impaired Stereognosis Impaired Left Leg Light Touch Absent Sharp/Dull Absent Deep Pressure Absent Hot/Cold Impaired Protective Sensation Absent Proprioception (Position) Absent Kinesthesia (Movement) Impaired Two-Point Discrimination Absent Tactile Localization Absent Stereognosis Absent Comments Summary Comments R deep pressure present in thigh and calf, not into foot and toes. R protective reflex vs sharp present Deep Tendon Reflex & Clonus Assessment Deep Tendon Reflex Right Achilles Deep Tendon Reflex 1+ Diminished Right Patellar Deep Tendon Reflex 2+ Normal Left Achilles Deep Tendon Reflex 1+ Diminished Left Patellar Deep Tendon Reflex 1+ Diminished Muscle Tone Tone Assessment Right Lower Extremity Flexor Tone Description Moderate Hypertonicity Extensor Tone Description Moderate Hypertonicity Left Lower Extremity Flexor Tone Description Moderate Hypertonicity Extensor Tone Description Moderate Hypertonicity PT-OP-J Posture/Palpation/Skin Start: 03/08/22 17:00 Freq: Status: Active Protocol: Document 05/09/23 15:19 DCW (Rec: 05/09/23 15:48 DCW [id number]) Posture Evaluation Comments Posture Comments Sitting EOB with good core control and no instability. Recovers from most directional pushing. Improved ability to reach outside of base of support. PT-OP-M Strength Start: 08/21/22 15:38 Freq: Status: Active Protocol: Document 05/09/23 15:19 DCW (Rec: 05/09/23 15:48 DCW [id number]) Hip Strength Hip Manual Muscle Testing Right Extension (S1) 2- Poor- Adduction 2- Poor- Left Extension (S1) 2- Poor- Adduction 1 Trace Knee Strength Knee Manual Muscle Testing Right Flexion (S2) 1 Trace Extension (L3) 1 Trace Left Flexion (S2) 1 Trace Extension (L3) 1 Trace Ankle/Foot Strength Ankle and Foot Manual Muscle Testing Right Plantarflexion (S1) 2- Poor- Left Plantarflexion (S1) 1 Trace PT-OP-Q Treatments Start: 03/08/22 17:00 Freq: Status: Active Protocol: Document 05/20/23 11:18 DCW (Rec: 05/20/23 11:41 DCW [id number]) Cardio Equipment Recumbent Elliptical (Biodex) Duration (Minutes) 10 Resistance 8 Seat Position 10 Other w/c<->biodex CG/min A Therapeutic Activity Therapeutic Activity sit to stander Name Long 1st hole strap and longest lrg looped strap both on lower hook Reps/Minutes 1 stand 25 min Comments in //bars, 2 person (1 posterior pelvic/low back support, 2nd person stander control) Noted quad and gluteal firing with wt shifting forward/back/ lateral with BUE support on standing frame bars. Min cues for elongated posturing for TS ext. Improved decreased RLE flexor tone, ascend into standing with no pauses needed squat/lateral scoot transfer Comments 1. w/c<>biodex CGA/Min A PT-OP-T Assessment and Plan Start: 03/08/22 17:00 Freq: Status: Active Protocol: Document 05/20/23 11:18 DCW (Rec: 05/20/23 11:41 DCW [id number]) Physical Therapy Assessment Impairments Impairments Activity Tolerance,Balance, Coordination,Functional Activities,Functional Mobility ,Gait,Integument,Sensation, Soft Tissue Mobility,Strength, Tone,Transfers Goals Three Impairment Pt does not have any motor function throughout bilateral LEs Short Term Goal (STG) Pt to demonstrate 1/5 trace motor contraction in at least one quad in order to begin focus on LE mobility if neural functional return begins. STG Duration Met Applications Intern Goal (LTG) Pt to demonstrate right quad strength to at least 2/5, demonstrating movement into ROM in an antigravity position LTG Duration 08/07/23 - improving Two Impairment Pt struggles with lateral transfer/scooting along EOB Applications Intern Goal (LTG) Pt to perform lateral scoot transfer using proper technique without any verbal cues 4x in a row. LTG Duration 08/07/23 One Impairment Pt does not have an appropriate home exercise program Short Term Goal (STG) Pt to be independent and compliant with an appropriate HEP 07/30/22: progressing: resisted tricep ext, OH raises in w/c, supine HABD, added scaption OH B #2. STG Duration 04/15/23 Progressing Assessment Summary Assessment Pt performing very good transfers today, although did need a verbal reminder for hand placement exiting the Biodex. Doing much better in standing frame, did not require any stop during ascent secondary to leg spasm. Physical Therapy Plan Frequency and Duration Frequency of Treatment 2x/Week Plan of Care Start Date 05/09/23 Plan of Care End Date 08/07/23 Therapeutic Interventions Therapeutic Interventions Aquatic Therapy,Balance Training,Coordination Training ,Gait Training,Home Exercise Program,Manual Therapy, Neuromuscular Re-education, Orthotic/Prosthetic Management ,Patient/Caregiver Education, Self-Care/Home Management, Sensory Integration,Soft Tissue Mobilization, Therapeutic Activities, Therapeutic Exercises, Wheelchair Management Next Visit Focus/Plan Next Note Type Treatment Note Next Visit Plan *Longest loop/straps for stander to support posterior pelvic support both on lower roof panel hanger bar hook. *Leg press next POC:Alternate Shuttle recovery and sit/stander. Continue UE and core strengthening, LE PROM and manual stretching. Transfers, mobility, LE ROM, pt will benefit from continued breakdown of transfers to improve efficiency and mechanics, as well as working on more seated balance EOB.
--- NOTE | 2023-05-23 16:00 | PT.OTN ---
Current Diagnoses Paraplegia, unspecified (05/23/23) Other specified personal risk factors, not elsewhere classified (05/23/23) Other specified postprocedural states (05/23/23) Physical Therapy Treatment Note PT-OP-A Visit Information Start: 03/08/22 17:00 Freq: Status: Active Protocol: Document 05/23/23 14:02 NBM (Rec: 05/23/23 16:44 NBM [id number]) Out-Patient Physical Therapy Visit Information Visit Information Visit Type Treatment Note Visit Start Time 13:47 Visit Stop Time 14:30 Total Visit Minutes 43 Visit Number 111 Number of MORTAR MAN Visits 1 PT-OP-B Current Condition Start: 03/08/22 17:00 Freq: Status: Active Protocol: Document 03/08/22 11:15 DCW (Rec: 03/08/22 17:11 DCW [id number]) Current Condition History of Current Condition Onset Date 12/16/21 Current Complaints Paraplegia History of Current Condition Pt is a 71 year old male with a very unfortunate medical history. Pt was hiking [place] on 12/16/21 with a friend, finished up, drive back to his friend's home to drop him off, and noticed his left leg was collapsing. By the time pt drove home, both legs were giving out and numb. Pt was suddenly paralized from the waist down, was taken to the ED, and was flown to [facility] on 12/17/21. The following day, he underwent a laminectomy to relieve pressure from the thoracic epidural hematoma which had developed following his hike, which was pressing on his spinal cord. Following surgery , pt was in recovery for a week and was then transfered to rehab for 20 days, when he was finally discharged home in a wheelchair on 01/19/22. Pt reports his surgeon informed him that it is a possibility that he gets some return of nerve function. Has experienced some changes in his right LE, but has no motor function at this time from ~ T10 down. Minimal sensory return on right side, none on left. Pt has been anxious to get in to therapy and do everything he can to help return to function. Pt's , who attended his evaluation, notes that she has been doing a lot of PROM in his legs at night to keep everything moving. Pt can feel some stretching during PROM in his right leg. Pt has additionally already started occupational therapy, and has been practicing some seated stabilization. Pt transfers with a slide board, but notes it is difficult to do into his car, because he has to transfer upward at an incline. Treatment Goals Patient/Caregiver Goals I will do anything possible to get out of this wheelchair. My neurologist told me he has seen people recover from this , so I am not giving up hope. PT-OP-C Subjective Start: 03/08/22 17:00 Freq: Status: Active Protocol: Document 05/23/23 14:02 NBM (Rec: 05/23/23 16:44 NBM [id number]) OP-PT Subjective Patient Comments Patient Comments Toby reports he is doing well today. PT-OP-G Mobility & Gait Start: 03/08/22 17:00 Freq: Status: Active Protocol: Document 05/09/23 15:19 DCW (Rec: 05/09/23 15:48 DCW [id number]) OP Mobility Evaluation Transfers Bed to Chair Transfers Transfers using UE, improved with side-side movement Car Transfers uses slide board, stabilizes front to back and prevent slide down board Wheelchair Management Type of Wheelchair Manual w/c PT-OP-H Neuro Start: 03/08/22 17:00 Freq: Status: Active Protocol: Document 05/09/23 15:19 DCW (Rec: 05/09/23 15:48 DCW [id number]) Sensation Evaluation Gross Sensation Gross Sensation Left LE Impaired,Right LE Impaired,Trunk Impaired Sensation Description Paresthesia,Numbness,Tingling, Pins & [place],Burning Dermatome Impairments L1,L2,L3,L4,L5,S1,S2,S3,S4-5 Location Details Right Leg Light Touch Impaired Sharp/Dull Impaired Deep Pressure Intact/Normal Hot/Cold Absent Protective Sensation Absent Proprioception (Position) Impaired Kinesthesia (Movement) Impaired Two-Point Discrimination Impaired Tactile Localization Impaired Stereognosis Impaired Left Leg Light Touch Absent Sharp/Dull Absent Deep Pressure Absent Hot/Cold Impaired Protective Sensation Absent Proprioception (Position) Absent Kinesthesia (Movement) Impaired Two-Point Discrimination Absent Tactile Localization Absent Stereognosis Absent Comments Summary Comments R deep pressure present in thigh and calf, not into foot and toes. R protective reflex vs sharp present Deep Tendon Reflex & Clonus Assessment Deep Tendon Reflex Right Achilles Deep Tendon Reflex 1+ Diminished Right Patellar Deep Tendon Reflex 2+ Normal Left Achilles Deep Tendon Reflex 1+ Diminished Left Patellar Deep Tendon Reflex 1+ Diminished Muscle Tone Tone Assessment Right Lower Extremity Flexor Tone Description Moderate Hypertonicity Extensor Tone Description Moderate Hypertonicity Left Lower Extremity Flexor Tone Description Moderate Hypertonicity Extensor Tone Description Moderate Hypertonicity PT-OP-J Posture/Palpation/Skin Start: 03/08/22 17:00 Freq: Status: Active Protocol: Document 05/09/23 15:19 DCW (Rec: 05/09/23 15:48 DCW [id number]) Posture Evaluation Comments Posture Comments Sitting EOB with good core control and no instability. Recovers from most directional pushing. Improved ability to reach outside of base of support. PT-OP-M Strength Start: 08/21/22 15:38 Freq: Status: Active Protocol: Document 05/09/23 15:19 DCW (Rec: 05/09/23 15:48 DCW [id number]) Hip Strength Hip Manual Muscle Testing Right Extension (S1) 2- Poor- Adduction 2- Poor- Left Extension (S1) 2- Poor- Adduction 1 Trace Knee Strength Knee Manual Muscle Testing Right Flexion (S2) 1 Trace Extension (L3) 1 Trace Left Flexion (S2) 1 Trace Extension (L3) 1 Trace Ankle/Foot Strength Ankle and Foot Manual Muscle Testing Right Plantarflexion (S1) 2- Poor- Left Plantarflexion (S1) 1 Trace PT-OP-Q Treatments Start: 03/08/22 17:00 Freq: Status: Active Protocol: Document 05/23/23 14:02 NBM (Rec: 05/23/23 16:44 NBM [id number]) Cardio Equipment Recumbent Elliptical (Biodex) Duration (Minutes) 10 Resistance 8 Seat Position 10 Other w/c<->biodex w/ dysom CG/min A Gym Equipment Shuttle Recovery Bilateral Squats Details with BUE assist on thighs Resistance 25# assisted>12# unassisted w/ breath focus>25# assisted w/ breath focus Reps/Time Slight movements when unassisted, assisted back-> eccentric lowering Self-Care/Home Management Treatment Education Patient Education Body Mechanics,Home Exercise Program,Safety Other Education Edu re: core anatomy and importance of not breathholding with interrelationship between diaphragm, core, pelvic floor and hip adductors, as well as increased intraabdominal pressure with breathholding. Focus on breathwork with exhale on exertion. PT-OP-T Assessment and Plan Start: 03/08/22 17:00 Freq: Status: Active Protocol: Document 05/23/23 14:02 [facility] (Rec: 05/23/23 16:44 [facility] [id number]) Physical Therapy Assessment Goals Three Impairment Pt does not have any motor function throughout bilateral LEs Short Term Goal (STG) Pt to demonstrate 1/5 trace motor contraction in at least one quad in order to begin focus on LE mobility if neural functional return begins. STG Duration Met Mixed Crop Farmer Goal (LTG) Pt to demonstrate right quad strength to at least 2/5, demonstrating movement into ROM in an antigravity position LTG Duration 08/07/23 - improving Two Impairment Pt struggles with lateral transfer/scooting along EOB Skilled Nursing Goal (LTG) Pt to perform lateral scoot transfer using proper technique without any verbal cues 4x in a row. LTG Duration 08/07/23 One Impairment Pt does not have an appropriate home exercise program Short Term Goal (STG) Pt to be independent and compliant with an appropriate HEP 07/30/22: progressing: resisted tricep ext, OH raises in w/c, supine HABD, added scaption OH B #2. STG Duration 04/15/23 Progressing Assessment Summary Assessment Treatment focus on breathwork with exercise and functional movement, and education for core anatomy and importance of not breathholding with interrelationship between diaphragm, core, and pelvic floor. Toby demonstrates improved eccentric control on Shuttle Recovery with 12# unassisted with breathing focus (exhale on exertion) as he was able to perform slightly slower pacing, PT Aide providing proximation at R foot. Time taken for w/c transfers between activities. Physical Therapy Plan Frequency and Duration Frequency of Treatment 2x/Week Plan of Care Start Date 05/09/23 Plan of Care End Date 08/07/23 Therapeutic Interventions Therapeutic Interventions Aquatic Therapy,Balance Training,Coordination Training ,Gait Training,Home Exercise Program,Manual Therapy, Neuromuscular Re-education, Orthotic/Prosthetic Management ,Patient/Caregiver Education, Self-Care/Home Management, Sensory Integration,Soft Tissue Mobilization, Therapeutic Activities, Therapeutic Exercises, Wheelchair Management Next Visit Focus/Plan Next Note Type Treatment Note Next Visit Plan *Longest loop/straps for stander to support posterior pelvic support both on lower paperhanger and painter bar hook. *Leg press next POC:Alternate Shuttle recovery and sit/stander. Continue UE and core strengthening, LE PROM and manual stretching. Transfers, mobility, LE ROM, pt will benefit from continued breakdown of transfers to improve efficiency and mechanics, as well as working on more seated balance EOB.
--- NOTE | 2023-06-16 18:16 | PT.OTN ---
Current Diagnoses Paraplegia, unspecified (06/16/23) Other specified personal risk factors, not elsewhere classified (06/16/23) Other specified postprocedural states (06/16/23) Physical Therapy Treatment Note PT-OP-A Visit Information Start: 03/08/22 17:00 Freq: Status: Active Protocol: Document 06/16/23 15:25 NBM (Rec: 06/16/23 16:08 NBM [id number]) Out-Patient Physical Therapy Visit Information Visit Information Visit Type Treatment Note Visit Start Time 15:23 Visit Stop Time 16:05 Visit Number 112 Number of GUITAR TEACHER Visits 2 PT-OP-B Current Condition Start: 03/08/22 17:00 Freq: Status: Active Protocol: Document 03/08/22 11:15 DCW (Rec: 03/08/22 17:11 DCW [id number]) Current Condition History of Current Condition Onset Date 12/16/21 Current Complaints Paraplegia History of Current Condition Pt is a 71 year old male with a very unfortunate medical history. Pt was hiking [place] on 12/16/21 with a friend, finished up, drive back to his friend's home to drop him off, and noticed his left leg was collapsing. By the time pt drove home, both legs were giving out and numb. Pt was suddenly paralized from the waist down, was taken to the ED, and was flown to [facility] on 12/17/21. The following day, he underwent a laminectomy to relieve pressure from the thoracic epidural hematoma which had developed following his hike, which was pressing on his spinal cord. Following surgery , pt was in recovery for a week and was then transfered to rehab for 20 days, when he was finally discharged home in a wheelchair on 01/19/22. Pt reports his surgeon informed him that it is a possibility that he gets some return of nerve function. Has experienced some changes in his right LE, but has no motor function at this time from ~ T10 down. Minimal sensory return on right side, none on left. Pt has been anxious to get in to therapy and do everything he can to help return to function. Pt's , who attended his evaluation, notes that she has been doing a lot of PROM in his legs at night to keep everything moving. Pt can feel some stretching during PROM in his right leg. Pt has additionally already started occupational therapy, and has been practicing some seated stabilization. Pt transfers with a slide board, but notes it is difficult to do into his car, because he has to transfer upward at an incline. Treatment Goals Patient/Caregiver Goals I will do anything possible to get out of this wheelchair. My neurologist told me he has seen people recover from this , so I am not giving up hope. PT-OP-C Subjective Start: 03/08/22 17:00 Freq: Status: Active Protocol: Document 06/16/23 15:25 NBM (Rec: 06/16/23 16:08 NBM [id number]) OP-PT Subjective Patient Comments Patient Comments Toby reports he was sick and is looking forward to doing the stander today. He is going to try stander on at [facility] for home use. PT-OP-G Mobility & Gait Start: 03/08/22 17:00 Freq: Status: Active Protocol: Document 05/09/23 15:19 DCW (Rec: 05/09/23 15:48 DCW [id number]) OP Mobility Evaluation Transfers Bed to Chair Transfers Transfers using UE, improved with side-side movement Car Transfers uses slide board, stabilizes front to back and prevent slide down board Wheelchair Management Type of Wheelchair Manual w/c PT-OP-H Neuro Start: 03/08/22 17:00 Freq: Status: Active Protocol: Document 05/09/23 15:19 DCW (Rec: 05/09/23 15:48 DCW [id number]) Sensation Evaluation Gross Sensation Gross Sensation Left LE Impaired,Right LE Impaired,Trunk Impaired Sensation Description Paresthesia,Numbness,Tingling, Pins & [place],Burning Dermatome Impairments L1,L2,L3,L4,L5,S1,S2,S3,S4-5 Location Details Right Leg Light Touch Impaired Sharp/Dull Impaired Deep Pressure Intact/Normal Hot/Cold Absent Protective Sensation Absent Proprioception (Position) Impaired Kinesthesia (Movement) Impaired Two-Point Discrimination Impaired Tactile Localization Impaired Stereognosis Impaired Left Leg Light Touch Absent Sharp/Dull Absent Deep Pressure Absent Hot/Cold Impaired Protective Sensation Absent Proprioception (Position) Absent Kinesthesia (Movement) Impaired Two-Point Discrimination Absent Tactile Localization Absent Stereognosis Absent Comments Summary Comments R deep pressure present in thigh and calf, not into foot and toes. R protective reflex vs sharp present Deep Tendon Reflex & Clonus Assessment Deep Tendon Reflex Right Achilles Deep Tendon Reflex 1+ Diminished Right Patellar Deep Tendon Reflex 2+ Normal Left Achilles Deep Tendon Reflex 1+ Diminished Left Patellar Deep Tendon Reflex 1+ Diminished Muscle Tone Tone Assessment Right Lower Extremity Flexor Tone Description Moderate Hypertonicity Extensor Tone Description Moderate Hypertonicity Left Lower Extremity Flexor Tone Description Moderate Hypertonicity Extensor Tone Description Moderate Hypertonicity PT-OP-J Posture/Palpation/Skin Start: 03/08/22 17:00 Freq: Status: Active Protocol: Document 05/09/23 15:19 DCW (Rec: 05/09/23 15:48 DCW [id number]) Posture Evaluation Comments Posture Comments Sitting EOB with good core control and no instability. Recovers from most directional pushing. Improved ability to reach outside of base of support. PT-OP-M Strength Start: 08/21/22 15:38 Freq: Status: Active Protocol: Document 05/09/23 15:19 DCW (Rec: 05/09/23 15:48 DCW [id number]) Hip Strength Hip Manual Muscle Testing Right Extension (S1) 2- Poor- Adduction 2- Poor- Left Extension (S1) 2- Poor- Adduction 1 Trace Knee Strength Knee Manual Muscle Testing Right Flexion (S2) 1 Trace Extension (L3) 1 Trace Left Flexion (S2) 1 Trace Extension (L3) 1 Trace Ankle/Foot Strength Ankle and Foot Manual Muscle Testing Right Plantarflexion (S1) 2- Poor- Left Plantarflexion (S1) 1 Trace PT-OP-Q Treatments Start: 03/08/22 17:00 Freq: Status: Active Protocol: Document 06/16/23 15:25 NBM (Rec: 06/16/23 16:08 NBM [id number]) Cardio Equipment Recumbent Elliptical (Biodex) Duration (Minutes) 12 Resistance 8 Seat Position 10 Other w/c<->biodex w/ dysom CG/min A Therapeutic Activity Therapeutic Activity sit to stander Name Long 1st hole strap and longest lrg looped strap both on lower hook Reps/Minutes 1 stand 25 min Comments in //bars, 2 person (1 posterior pelvic/low back support, 2nd person stander control) Noted quad and gluteal firing with wt shifting and forward reach crossing midline for visual target forward/back/lateral with BUE support on standing frame bars or parallel bars level 36.5. Min cues for elongated posturing for TS ext. Improved decreased RLE flexor tone, ascend into standing with no pauses needed for tone but one pause for low back ascending. squat/lateral scoot transfer Comments 1. w/c<>biodex CGA/Min A Self-Care/Home Management Treatment Education Patient Education Home Exercise Program,Safety Other Education Pt has appt with [employer] to test stander used in clinic in their showroom. Pt is encourage to call ahead to have other standers available to trial as well. PT-OP-T Assessment and Plan Start: 03/08/22 17:00 Freq: Status: Active Protocol: Document 06/16/23 15:25 NB (Rec: 06/16/23 16:08 [facility] [id number]) Physical Therapy Assessment Goals Three Impairment Pt does not have any motor function throughout bilateral LEs Short Term Goal (STG) Pt to demonstrate 1/5 trace motor contraction in at least one quad in order to begin focus on LE mobility if neural functional return begins. STG Duration Met Mosaic Technician Goal (LTG) Pt to demonstrate right quad strength to at least 2/5, demonstrating movement into ROM in an antigravity position LTG Duration 08/07/23 - improving Two Impairment Pt struggles with lateral transfer/scooting along EOB Mosaic Technician Goal (LTG) Pt to perform lateral scoot transfer using proper technique without any verbal cues 4x in a row. LTG Duration 08/07/23 One Impairment Pt does not have an appropriate home exercise program Short Term Goal (STG) Pt to be independent and compliant with an appropriate HEP 07/30/22: progressing: resisted tricep ext, OH raises in w/c, supine HABD, added scaption OH B #2. STG Duration 04/15/23 Progressing Assessment Summary Assessment Treatment focus on recumbent elliptical for neural priming, transfers and stander. Pt does have one instance of increased tone in LLE after 12 min on recumbent elliptical. Pt is able to ascend in standing frame with one pause for low back pain but no increased LE tone until after returned to seated in RLE. In stander pt alternates between bilateral UE support on stander and // bars at 36.5. They attempt alternating fwd reaching to target crossing midline but are unable to perform with only one FAMILY MEDICINE CHAIR and require cues for slower pacing ; performance improves when partially lowered in stander but still challenging. Physical Therapy Plan Frequency and Duration Frequency of Treatment 2x/Week Plan of Care Start Date 05/09/23 Plan of Care End Date 08/07/23 Therapeutic Interventions Therapeutic Interventions Aquatic Therapy,Balance Training,Coordination Training ,Gait Training,Home Exercise Program,Manual Therapy, Neuromuscular Re-education, Orthotic/Prosthetic Management ,Patient/Caregiver Education, Self-Care/Home Management, Sensory Integration,Soft Tissue Mobilization, Therapeutic Activities, Therapeutic Exercises, Wheelchair Management Next Visit Focus/Plan Next Note Type Treatment Note Next Visit Plan *Longest loop/straps for stander to support posterior pelvic support both on lower pipe changer bar hook. *Leg press next POC:Alternate Shuttle recovery and sit/stander. Continue UE and core strengthening, LE PROM and manual stretching. Transfers, mobility, LE ROM, pt will benefit from continued breakdown of transfers to improve efficiency and mechanics, as well as working on more seated balance EOB.
--- NOTE | 2023-06-20 15:17 | PT.OTN ---
Current Diagnoses Paraplegia, unspecified (06/20/23) Other specified personal risk factors, not elsewhere classified (06/20/23) Other specified postprocedural states (06/20/23) Physical Therapy Treatment Note PT-OP-A Visit Information Start: 03/08/22 17:00 Freq: Status: Active Protocol: Document 06/20/23 14:31 DCW (Rec: 06/20/23 15:17 DCW [id number]) Out-Patient Physical Therapy Visit Information Visit Information Visit Type Treatment Note Visit Start Time 14:31 Visit Stop Time 15:15 Visit Number [phone] Number of ENGINEERING TECH Visits 0 Evaluation Information Evaluation Date 03/08/22 PT-OP-B Current Condition Start: 03/08/22 17:00 Freq: Status: Active Protocol: Document 03/08/22 11:15 DCW (Rec: 03/08/22 17:11 DCW [id number]) Current Condition History of Current Condition Onset Date 12/16/21 Current Complaints Paraplegia History of Current Condition Pt is a 71 year old male with a very unfortunate medical history. Pt was hiking [email or web address] on 12/16/21 with a friend, finished up, drive back to his friend's home to drop him off, and noticed his left leg was collapsing. By the time pt drove home, both legs were giving out and numb. Pt was suddenly paralized from the waist down, was taken to the ED, and was flown to [facility] on 12/17/21. The following day, he underwent a laminectomy to relieve pressure from the thoracic epidural hematoma which had developed following his hike, which was pressing on his spinal cord. Following surgery , pt was in recovery for a week and was then transfered to rehab for 20 days, when he was finally discharged home in a wheelchair on 01/19/22. Pt reports his surgeon informed him that it is a possibility that he gets some return of nerve function. Has experienced some changes in his right LE, but has no motor function at this time from ~ T10 down. Minimal sensory return on right side, none on left. Pt has been anxious to get in to therapy and do everything he can to help return to function. Pt's , who attended his evaluation, notes that she has been doing a lot of PROM in his legs at night to keep everything moving. Pt can feel some stretching during PROM in his right leg. Pt has additionally already started occupational therapy, and has been practicing some seated stabilization. Pt transfers with a slide board, but notes it is difficult to do into his car, because he has to transfer upward at an incline. Treatment Goals Patient/Caregiver Goals I will do anything possible to get out of this wheelchair. My neurologist told me he has seen people recover from this , so I am not giving up hope. PT-OP-C Subjective Start: 03/08/22 17:00 Freq: Status: Active Protocol: Document 06/20/23 14:31 DCW (Rec: 06/20/23 15:17 DCW [id number]) OP-PT Subjective Patient Comments Patient Comments Yesterday I went over to [employer] [facility], we tried a different configuration, I got in and out with no problem, and asked him to work me out a quote. PT-OP-G Mobility & Gait Start: 03/08/22 17:00 Freq: Status: Active Protocol: Document 05/09/23 15:19 DCW (Rec: 05/09/23 15:48 DCW [id number]) OP Mobility Evaluation Transfers Bed to Chair Transfers Transfers using UE, improved with side-side movement Car Transfers uses slide board, stabilizes front to back and prevent slide down board Wheelchair Management Type of Wheelchair Manual w/c PT-OP-H Neuro Start: 03/08/22 17:00 Freq: Status: Active Protocol: Document 05/09/23 15:19 DCW (Rec: 05/09/23 15:48 DCW [id number]) Sensation Evaluation Gross Sensation Gross Sensation Left LE Impaired,Right LE Impaired,Trunk Impaired Sensation Description Paresthesia,Numbness,Tingling, Pins & [place],Burning Dermatome Impairments L1,L2,L3,L4,L5,S1,S2,S3,S4-5 Location Details Right Leg Light Touch Impaired Sharp/Dull Impaired Deep Pressure Intact/Normal Hot/Cold Absent Protective Sensation Absent Proprioception (Position) Impaired Kinesthesia (Movement) Impaired Two-Point Discrimination Impaired Tactile Localization Impaired Stereognosis Impaired Left Leg Light Touch Absent Sharp/Dull Absent Deep Pressure Absent Hot/Cold Impaired Protective Sensation Absent Proprioception (Position) Absent Kinesthesia (Movement) Impaired Two-Point Discrimination Absent Tactile Localization Absent Stereognosis Absent Comments Summary Comments R deep pressure present in thigh and calf, not into foot and toes. R protective reflex vs sharp present Deep Tendon Reflex & Clonus Assessment Deep Tendon Reflex Right Achilles Deep Tendon Reflex 1+ Diminished Right Patellar Deep Tendon Reflex 2+ Normal Left Achilles Deep Tendon Reflex 1+ Diminished Left Patellar Deep Tendon Reflex 1+ Diminished Muscle Tone Tone Assessment Right Lower Extremity Flexor Tone Description Moderate Hypertonicity Extensor Tone Description Moderate Hypertonicity Left Lower Extremity Flexor Tone Description Moderate Hypertonicity Extensor Tone Description Moderate Hypertonicity PT-OP-J Posture/Palpation/Skin Start: 03/08/22 17:00 Freq: Status: Active Protocol: Document 05/09/23 15:19 DCW (Rec: 05/09/23 15:48 DCW [id number]) Posture Evaluation Comments Posture Comments Sitting EOB with good core control and no instability. Recovers from most directional pushing. Improved ability to reach outside of base of support. PT-OP-M Strength Start: 08/21/22 15:38 Freq: Status: Active Protocol: Document 05/09/23 15:19 DCW (Rec: 05/09/23 15:48 DCW [id number]) Hip Strength Hip Manual Muscle Testing Right Extension (S1) 2- Poor- Adduction 2- Poor- Left Extension (S1) 2- Poor- Adduction 1 Trace Knee Strength Knee Manual Muscle Testing Right Flexion (S2) 1 Trace Extension (L3) 1 Trace Left Flexion (S2) 1 Trace Extension (L3) 1 Trace Ankle/Foot Strength Ankle and Foot Manual Muscle Testing Right Plantarflexion (S1) 2- Poor- Left Plantarflexion (S1) 1 Trace PT-OP-Q Treatments Start: 03/08/22 17:00 Freq: Status: Active Protocol: Document 06/20/23 14:31 DCW (Rec: 06/20/23 15:17 DCW [id number]) Cardio Equipment Recumbent Elliptical (Biodex) Duration (Minutes) 10 Resistance 8 Seat Position 10 Other w/c<->biodex w/ dysem CG/min A Gym Equipment Shuttle Recovery Bilateral Squats Details with BUE assist on thighs Resistance 25# assisted>12# unassisted w/ breath focus>25# assisted w/ breath focus Reps/Time Slight movements when unassisted, assisted back-> eccentric lowering Neuro Re-Education Treatment Balance Activities Seated balance Details SBA/CGA for all, occasional Min A for LOB Comments 1. AP mvmt w/ dowel (2#) in BUE seated EOB 2. lateral taps w/ dowel (2#) balloon volleyball Details PT provided SBA/Min A PRN, PT Aide balloon volley Surface 2# wrist wts Equipment black mat table, balloon, dowel gait belt Reps/Duration 8 min Comments 1. seated Edge of black mat table, feet on floor, SBA 2. free sitting, self wt shift outside KIARA reaching, LOB retro x2 cues Mod/Max A recover, UE contact LOB flexion. Maintained trunk midline f/b/lateral 25% time with cues for slower pacing chest press. PT-OP-T Assessment and Plan Start: 03/08/22 17:00 Freq: Status: Active Protocol: Document 06/20/23 14:31 DCW (Rec: 06/20/23 15:17 DCW [id number]) Physical Therapy Assessment Goals Three Impairment Pt does not have any motor function throughout bilateral LEs Short Term Goal (STG) Pt to demonstrate 1/5 trace motor contraction in at least one quad in order to begin focus on LE mobility if neural functional return begins. STG Duration Met Longterm Goal (LTG) Pt to demonstrate right quad strength to at least 2/5, demonstrating movement into ROM in an antigravity position LTG Duration 08/07/23 - improving Two Impairment Pt struggles with lateral transfer/scooting along EOB Longterm Goal (LTG) Pt to perform lateral scoot transfer using proper technique without any verbal cues 4x in a row. LTG Duration 08/07/23 One Impairment Pt does not have an appropriate home exercise program Short Term Goal (STG) Pt to be independent and compliant with an appropriate HEP 07/30/22: progressing: resisted tricep ext, OH raises in w/c, supine HABD, added scaption OH B #2. STG Duration 04/15/23 Progressing Assessment Summary Assessment Increased focus today on EOB seated balance training with balloon volley and weighted dowel reaching. Good tolerance , pt had difficulty maintaining balance, but was able to self-correct LOB. Physical Therapy Plan Frequency and Duration Frequency of Treatment 2x/Week Plan of Care Start Date 05/09/23 Plan of Care End Date 08/07/23 Therapeutic Interventions Therapeutic Interventions Aquatic Therapy,Balance Training,Coordination Training ,Gait Training,Home Exercise Program,Manual Therapy, Neuromuscular Re-education, Orthotic/Prosthetic Management ,Patient/Caregiver Education, Self-Care/Home Management, Sensory Integration,Soft Tissue Mobilization, Therapeutic Activities, Therapeutic Exercises, Wheelchair Management Next Visit Focus/Plan Next Note Type Treatment Note Next Visit Plan *Longest loop/straps for stander to support posterior pelvic support both on lower awning hanger helper bar hook. *Stander next POC:Alternate Shuttle recovery and sit/stander. Continue UE and core strengthening, LE PROM and manual stretching. Transfers, mobility, LE ROM, pt will benefit from continued breakdown of transfers to improve efficiency and mechanics, as well as working on more seated balance EOB.
--- NOTE | 2023-06-25 16:00 | PT.OTN ---
Current Diagnoses Paraplegia, unspecified (06/25/23) Other specified personal risk factors, not elsewhere classified (06/25/23) Other specified postprocedural states (06/25/23) Physical Therapy Treatment Note PT-OP-A Visit Information Start: 03/08/22 17:00 Freq: Status: Active Protocol: Document 06/25/23 15:15 DCW (Rec: 06/25/23 16:00 DCW [id number]) Out-Patient Physical Therapy Visit Information Visit Information Visit Type Treatment Note Visit Start Time 15:15 Visit Stop Time 16:00 Visit Number 114 Number of DETONATOR MAKER Visits 0 Evaluation Information Evaluation Date 03/08/22 PT-OP-B Current Condition Start: 03/08/22 17:00 Freq: Status: Active Protocol: Document 03/08/22 11:15 DCW (Rec: 03/08/22 17:11 DCW [id number]) Current Condition History of Current Condition Onset Date 12/16/21 Current Complaints Paraplegia History of Current Condition Pt is a 71 year old male with a very unfortunate medical history. Pt was hiking [employer] on 12/16/21 with a friend, finished up, drive back to his friend's home to drop him off, and noticed his left leg was collapsing. By the time pt drove home, both legs were giving out and numb. Pt was suddenly paralized from the waist down, was taken to the ED, and was flown to [facility] on 12/17/21. The following day, he underwent a laminectomy to relieve pressure from the thoracic epidural hematoma which had developed following his hike, which was pressing on his spinal cord. Following surgery , pt was in recovery for a week and was then transfered to rehab for 20 days, when he was finally discharged home in a wheelchair on 01/19/22. Pt reports his surgeon informed him that it is a possibility that he gets some return of nerve function. Has experienced some changes in his right LE, but has no motor function at this time from ~ T10 down. Minimal sensory return on right side, none on left. Pt has been anxious to get in to therapy and do everything he can to help return to function. Pt's , who attended his evaluation, notes that she has been doing a lot of PROM in his legs at night to keep everything moving. Pt can feel some stretching during PROM in his right leg. Pt has additionally already started occupational therapy, and has been practicing some seated stabilization. Pt transfers with a slide board, but notes it is difficult to do into his car, because he has to transfer upward at an incline. Treatment Goals Patient/Caregiver Goals I will do anything possible to get out of this wheelchair. My neurologist told me he has seen people recover from this , so I am not giving up hope. PT-OP-C Subjective Start: 03/08/22 17:00 Freq: Status: Active Protocol: Document 06/25/23 15:15 DCW (Rec: 06/25/23 16:00 DCW [id number]) OP-PT Subjective Patient Comments Patient Comments Pt notes someone recently adjusted his w/c seat back, and now he tips back too easily when trying to propel himself forward. PT-OP-G Mobility & Gait Start: 03/08/22 17:00 Freq: Status: Active Protocol: Document 05/09/23 15:19 DCW (Rec: 05/09/23 15:48 DCW [id number]) OP Mobility Evaluation Transfers Bed to Chair Transfers Transfers using UE, improved with side-side movement Car Transfers uses slide board, stabilizes front to back and prevent slide down board Wheelchair Management Type of Wheelchair Manual w/c PT-OP-H Neuro Start: 03/08/22 17:00 Freq: Status: Active Protocol: Document 05/09/23 15:19 DCW (Rec: 05/09/23 15:48 DCW [id number]) Sensation Evaluation Gross Sensation Gross Sensation Left LE Impaired,Right LE Impaired,Trunk Impaired Sensation Description Paresthesia,Numbness,Tingling, Pins & [place],Burning Dermatome Impairments L1,L2,L3,L4,L5,S1,S2,S3,S4-5 Location Details Right Leg Light Touch Impaired Sharp/Dull Impaired Deep Pressure Intact/Normal Hot/Cold Absent Protective Sensation Absent Proprioception (Position) Impaired Kinesthesia (Movement) Impaired Two-Point Discrimination Impaired Tactile Localization Impaired Stereognosis Impaired Left Leg Light Touch Absent Sharp/Dull Absent Deep Pressure Absent Hot/Cold Impaired Protective Sensation Absent Proprioception (Position) Absent Kinesthesia (Movement) Impaired Two-Point Discrimination Absent Tactile Localization Absent Stereognosis Absent Comments Summary Comments R deep pressure present in thigh and calf, not into foot and toes. R protective reflex vs sharp present Deep Tendon Reflex & Clonus Assessment Deep Tendon Reflex Right Achilles Deep Tendon Reflex 1+ Diminished Right Patellar Deep Tendon Reflex 2+ Normal Left Achilles Deep Tendon Reflex 1+ Diminished Left Patellar Deep Tendon Reflex 1+ Diminished Muscle Tone Tone Assessment Right Lower Extremity Flexor Tone Description Moderate Hypertonicity Extensor Tone Description Moderate Hypertonicity Left Lower Extremity Flexor Tone Description Moderate Hypertonicity Extensor Tone Description Moderate Hypertonicity PT-OP-J Posture/Palpation/Skin Start: 03/08/22 17:00 Freq: Status: Active Protocol: Document 05/09/23 15:19 DCW (Rec: 05/09/23 15:48 DCW [id number]) Posture Evaluation Comments Posture Comments Sitting EOB with good core control and no instability. Recovers from most directional pushing. Improved ability to reach outside of base of support. PT-OP-M Strength Start: 08/21/22 15:38 Freq: Status: Active Protocol: Document 05/09/23 15:19 DCW (Rec: 05/09/23 15:48 DCW [id number]) Hip Strength Hip Manual Muscle Testing Right Extension (S1) 2- Poor- Adduction 2- Poor- Left Extension (S1) 2- Poor- Adduction 1 Trace Knee Strength Knee Manual Muscle Testing Right Flexion (S2) 1 Trace Extension (L3) 1 Trace Left Flexion (S2) 1 Trace Extension (L3) 1 Trace Ankle/Foot Strength Ankle and Foot Manual Muscle Testing Right Plantarflexion (S1) 2- Poor- Left Plantarflexion (S1) 1 Trace PT-OP-Q Treatments Start: 03/08/22 17:00 Freq: Status: Active Protocol: Document 06/25/23 15:15 DCW (Rec: 06/25/23 16:00 DCW [id number]) Cardio Equipment Recumbent Elliptical (Biodex) Duration (Minutes) 10 Resistance 8 Seat Position 10 Other w/c<->biodex w/ dysem CG/min A Therapeutic Activity Therapeutic Activity sit to stander Name Long 1st hole strap and longest lrg looped strap both on lower hook Reps/Minutes 1 stand 25 min Comments in //bars, 2 person (1 posterior pelvic/low back support, 2nd person stander control) Noted quad and gluteal firing with wt shifting and forward reach crossing midline for visual target forward/back/lateral with BUE support on standing frame bars or parallel bars level 36.5. Min cues for elongated posturing for TS ext. Improved decreased RLE flexor tone, ascend into standing with no pauses needed for tone but one pause for low back ascending. PT-OP-T Assessment and Plan Start: 03/08/22 17:00 Freq: Status: Active Protocol: Document 06/25/23 15:15 DCW (Rec: 06/25/23 16:00 DCW [id number]) Physical Therapy Assessment Goals Three Impairment Pt does not have any motor function throughout bilateral LEs Short Term Goal (STG) Pt to demonstrate 1/5 trace motor contraction in at least one quad in order to begin focus on LE mobility if neural functional return begins. STG Duration Met Partition Assembler Goal (LTG) Pt to demonstrate right quad strength to at least 2/5, demonstrating movement into ROM in an antigravity position LTG Duration 08/07/23 - improving Two Impairment Pt struggles with lateral transfer/scooting along EOB Fpc Goal (LTG) Pt to perform lateral scoot transfer using proper technique without any verbal cues 4x in a row. LTG Duration 08/07/23 One Impairment Pt does not have an appropriate home exercise program Short Term Goal (STG) Pt to be independent and compliant with an appropriate HEP 07/30/22: progressing: resisted tricep ext, OH raises in w/c, supine HABD, added scaption OH B #2. STG Duration 04/15/23 Progressing Assessment Summary Assessment Good tolerance to stander today, did better job at trunk extension, less reliance on UE support. Physical Therapy Plan Frequency and Duration Frequency of Treatment 2x/Week Plan of Care Start Date 05/09/23 Plan of Care End Date 08/07/23 Therapeutic Interventions Therapeutic Interventions Aquatic Therapy,Balance Training,Coordination Training ,Gait Training,Home Exercise Program,Manual Therapy, Neuromuscular Re-education, Orthotic/Prosthetic Management ,Patient/Caregiver Education, Self-Care/Home Management, Sensory Integration,Soft Tissue Mobilization, Therapeutic Activities, Therapeutic Exercises, Wheelchair Management Next Visit Focus/Plan Next Note Type Treatment Note Next Visit Plan *Longest loop/straps for stander to support posterior pelvic support both on lower record changer assembler bar hook. *Leg press next POC:Alternate Shuttle recovery and sit/stander. Continue UE and core strengthening, LE PROM and manual stretching. Transfers, mobility, LE ROM, pt will benefit from continued breakdown of transfers to improve efficiency and mechanics, as well as working on more seated balance EOB.
--- NOTE | 2023-06-27 16:40 | PT.OTN ---
Current Diagnoses Paraplegia, unspecified (06/27/23) Other specified personal risk factors, not elsewhere classified (06/27/23) Other specified postprocedural states (06/27/23) Physical Therapy Treatment Note PT-OP-A Visit Information Start: 03/08/22 17:00 Freq: Status: Active Protocol: Document 06/27/23 15:20 NBM (Rec: 06/27/23 16:22 NBM [id number]) Out-Patient Physical Therapy Visit Information Visit Information Visit Type Treatment Note Visit Start Time 15:20 Visit Stop Time 16:05 Visit Number [id number] Number of STENOTYPE OPERATOR Visits 1 PT-OP-B Current Condition Start: 03/08/22 17:00 Freq: Status: Active Protocol: Document 03/08/22 11:15 DCW (Rec: 03/08/22 17:11 DCW [id number]) Current Condition History of Current Condition Onset Date 12/16/21 Current Complaints Paraplegia History of Current Condition Pt is a 71 year old male with a very unfortunate medical history. Pt was hiking [place] on 12/16/21 with a friend, finished up, drive back to his friend's home to drop him off, and noticed his left leg was collapsing. By the time pt drove home, both legs were giving out and numb. Pt was suddenly paralized from the waist down, was taken to the ED, and was flown to [facility] on 12/17/21. The following day, he underwent a laminectomy to relieve pressure from the thoracic epidural hematoma which had developed following his hike, which was pressing on his spinal cord. Following surgery , pt was in recovery for a week and was then transfered to rehab for 20 days, when he was finally discharged home in a wheelchair on 01/19/22. Pt reports his surgeon informed him that it is a possibility that he gets some return of nerve function. Has experienced some changes in his right LE, but has no motor function at this time from ~ T10 down. Minimal sensory return on right side, none on left. Pt has been anxious to get in to therapy and do everything he can to help return to function. Pt's , who attended his evaluation, notes that she has been doing a lot of PROM in his legs at night to keep everything moving. Pt can feel some stretching during PROM in his right leg. Pt has additionally already started occupational therapy, and has been practicing some seated stabilization. Pt transfers with a slide board, but notes it is difficult to do into his car, because he has to transfer upward at an incline. Treatment Goals Patient/Caregiver Goals I will do anything possible to get out of this wheelchair. My neurologist told me he has seen people recover from this , so I am not giving up hope. PT-OP-C Subjective Start: 03/08/22 17:00 Freq: Status: Active Protocol: Document 06/27/23 15:20 NB (Rec: 06/27/23 16:22 [facility] [id number]) OP-PT Subjective Patient Comments Patient Comments Toby reports he'll get home stander with goal of using it 1.5 to 2 hours a day. He was able to use stander here last visit without needing to stop going from sit to stand. He's noticed with weight loss transfers are easier. PT-OP-G Mobility & Gait Start: 03/08/22 17:00 Freq: Status: Active Protocol: Document 05/09/23 15:19 DCW (Rec: 05/09/23 15:48 DCW [id number]) OP Mobility Evaluation Transfers Bed to Chair Transfers Transfers using UE, improved with side-side movement Car Transfers uses slide board, stabilizes front to back and prevent slide down board Wheelchair Management Type of Wheelchair Manual w/c PT-OP-H Neuro Start: 03/08/22 17:00 Freq: Status: Active Protocol: Document 05/09/23 15:19 DCW (Rec: 05/09/23 15:48 DCW [id number]) Sensation Evaluation Gross Sensation Gross Sensation Left LE Impaired,Right LE Impaired,Trunk Impaired Sensation Description Paresthesia,Numbness,Tingling, Pins & [place],Burning Dermatome Impairments L1,L2,L3,L4,L5,S1,S2,S3,S4-5 Location Details Right Leg Light Touch Impaired Sharp/Dull Impaired Deep Pressure Intact/Normal Hot/Cold Absent Protective Sensation Absent Proprioception (Position) Impaired Kinesthesia (Movement) Impaired Two-Point Discrimination Impaired Tactile Localization Impaired Stereognosis Impaired Left Leg Light Touch Absent Sharp/Dull Absent Deep Pressure Absent Hot/Cold Impaired Protective Sensation Absent Proprioception (Position) Absent Kinesthesia (Movement) Impaired Two-Point Discrimination Absent Tactile Localization Absent Stereognosis Absent Comments Summary Comments R deep pressure present in thigh and calf, not into foot and toes. R protective reflex vs sharp present Deep Tendon Reflex & Clonus Assessment Deep Tendon Reflex Right Achilles Deep Tendon Reflex 1+ Diminished Right Patellar Deep Tendon Reflex 2+ Normal Left Achilles Deep Tendon Reflex 1+ Diminished Left Patellar Deep Tendon Reflex 1+ Diminished Muscle Tone Tone Assessment Right Lower Extremity Flexor Tone Description Moderate Hypertonicity Extensor Tone Description Moderate Hypertonicity Left Lower Extremity Flexor Tone Description Moderate Hypertonicity Extensor Tone Description Moderate Hypertonicity PT-OP-J Posture/Palpation/Skin Start: 03/08/22 17:00 Freq: Status: Active Protocol: Document 05/09/23 15:19 DCW (Rec: 05/09/23 15:48 DCW [id number]) Posture Evaluation Comments Posture Comments Sitting EOB with good core control and no instability. Recovers from most directional pushing. Improved ability to reach outside of base of support. PT-OP-M Strength Start: 08/21/22 15:38 Freq: Status: Active Protocol: Document 05/09/23 15:19 DCW (Rec: 05/09/23 15:48 DCW [id number]) Hip Strength Hip Manual Muscle Testing Right Extension (S1) 2- Poor- Adduction 2- Poor- Left Extension (S1) 2- Poor- Adduction 1 Trace Knee Strength Knee Manual Muscle Testing Right Flexion (S2) 1 Trace Extension (L3) 1 Trace Left Flexion (S2) 1 Trace Extension (L3) 1 Trace Ankle/Foot Strength Ankle and Foot Manual Muscle Testing Right Plantarflexion (S1) 2- Poor- Left Plantarflexion (S1) 1 Trace PT-OP-Q Treatments Start: 03/08/22 17:00 Freq: Status: Active Protocol: Document 06/27/23 15:20 NBM (Rec: 06/27/23 16:22 NBM [id number]) Cardio Equipment Recumbent Elliptical (Biodex) Duration (Minutes) 11 Resistance 8 Seat Position 10 Other w/c<->biodex w/ dysem CG/min A Gym Equipment Shuttle Recovery Bilateral Squats Details with BUE assist on thighs Resistance 25# assisted>12# unassisted w/ breath focus>25# assisted w/ breath focus Shuttle Recovery Platform Stable Reps/Time Slight movements when unassisted, assisted back-> eccentric lowering Therapeutic Exercises Supine Exercises Core Supine Exercise Name DL Isometrics 1. flexion ( hands pushing knees) 2. Diagonal (hands opp knee) Resistance on Shuttle Recovery 62# Equipment Used strap above knees for LE alignment Reps/Minutes 1. x5, 2. x2 Comments cues for TrA activation, no breathholding. Therapeutic Activity Therapeutic Activity squat/lateral scoot transfer Comments 1. w/c<>biodex CGA/Min A PT-OP-T Assessment and Plan Start: 03/08/22 17:00 Freq: Status: Active Protocol: Document 06/27/23 15:20 [facility] (Rec: 06/27/23 16:22 [facility] [id number]) Physical Therapy Assessment Goals Three Impairment Pt does not have any motor function throughout bilateral LEs Short Term Goal (STG) Pt to demonstrate 1/5 trace motor contraction in at least one quad in order to begin focus on LE mobility if neural functional return begins. STG Duration Met Stone Driller Goal (LTG) Pt to demonstrate right quad strength to at least 2/5, demonstrating movement into ROM in an antigravity position LTG Duration 08/07/23 - improving Two Impairment Pt struggles with lateral transfer/scooting along EOB Senior Living Goal (LTG) Pt to perform lateral scoot transfer using proper technique without any verbal cues 4x in a row. LTG Duration 08/07/23 One Impairment Pt does not have an appropriate home exercise program Short Term Goal (STG) Pt to be independent and compliant with an appropriate HEP 07/30/22: progressing: resisted tricep ext, OH raises in w/c, supine HABD, added scaption OH B #2. STG Duration 04/15/23 Progressing Assessment Summary Assessment Treatment focus on isometric core and breathwork with functional movement. Toby demonstrates improved eccentric control on Shuttle Recovery with 12# unassisted with breathing focus (exhale on exertion) as he was able to stop eccentric motion mid- range x7, and with 25# assisted with improved eccentric control when cued for breathwork. Education for appropriate abdominal activation for TrA focus. He tolerates isometric core ex's (DL flex/diagonal) but requires cues for TrA activation and no breathholding. Physical Therapy Plan Frequency and Duration Frequency of Treatment 2x/Week Plan of Care Start Date 05/09/23 Plan of Care End Date 08/07/23 Therapeutic Interventions Therapeutic Interventions Aquatic Therapy,Balance Training,Coordination Training ,Gait Training,Home Exercise Program,Manual Therapy, Neuromuscular Re-education, Orthotic/Prosthetic Management ,Patient/Caregiver Education, Self-Care/Home Management, Sensory Integration,Soft Tissue Mobilization, Therapeutic Activities, Therapeutic Exercises, Wheelchair Management Next Visit Focus/Plan Next Note Type Treatment Note Next Visit Plan *Longest loop/straps for stander to support posterior pelvic support both on lower family practitioner bar hook. *Leg press next POC:Alternate Shuttle recovery and sit/stander. Continue UE and core strengthening, LE PROM and manual stretching. Transfers, mobility, LE ROM, pt will benefit from continued breakdown of transfers to improve efficiency and mechanics, as well as working on more seated balance EOB.
--- NOTE | 2023-07-02 16:01 | PT.OTN ---
Current Diagnoses Paraplegia, unspecified (07/02/23) Other specified personal risk factors, not elsewhere classified (07/02/23) Other specified postprocedural states (07/02/23) Physical Therapy Treatment Note PT-OP-A Visit Information Start: 03/08/22 17:00 Freq: Status: Active Protocol: Document 07/02/23 15:16 DCW (Rec: 07/02/23 16:01 DCW [id number]) Out-Patient Physical Therapy Visit Information Visit Information Visit Type Treatment Note Visit Start Time 15:16 Visit Stop Time 16:00 Visit Number [id number] Number of TERMINAL BLOCK ASSEMBLER Visits 0 Evaluation Information Evaluation Date 03/08/22 PT-OP-B Current Condition Start: 03/08/22 17:00 Freq: Status: Active Protocol: Document 03/08/22 11:15 DCW (Rec: 03/08/22 17:11 DCW [id number]) Current Condition History of Current Condition Onset Date 12/16/21 Current Complaints Paraplegia History of Current Condition Pt is a 71 year old male with a very unfortunate medical history. Pt was hiking [email or web address] on 12/16/21 with a friend, finished up, drive back to his friend's home to drop him off, and noticed his left leg was collapsing. By the time pt drove home, both legs were giving out and numb. Pt was suddenly paralized from the waist down, was taken to the ED, and was flown to [facility] on 12/17/21. The following day, he underwent a laminectomy to relieve pressure from the thoracic epidural hematoma which had developed following his hike, which was pressing on his spinal cord. Following surgery , pt was in recovery for a week and was then transfered to rehab for 20 days, when he was finally discharged home in a wheelchair on 01/19/22. Pt reports his surgeon informed him that it is a possibility that he gets some return of nerve function. Has experienced some changes in his right LE, but has no motor function at this time from ~ T10 down. Minimal sensory return on right side, none on left. Pt has been anxious to get in to therapy and do everything he can to help return to function. Pt's , who attended his evaluation, notes that she has been doing a lot of PROM in his legs at night to keep everything moving. Pt can feel some stretching during PROM in his right leg. Pt has additionally already started occupational therapy, and has been practicing some seated stabilization. Pt transfers with a slide board, but notes it is difficult to do into his car, because he has to transfer upward at an incline. Treatment Goals Patient/Caregiver Goals I will do anything possible to get out of this wheelchair. My neurologist told me he has seen people recover from this , so I am not giving up hope. PT-OP-C Subjective Start: 03/08/22 17:00 Freq: Status: Active Protocol: Document 07/02/23 15:16 DCW (Rec: 07/02/23 16:01 DCW [id number]) OP-PT Subjective Patient Comments Patient Comments Pt feeling pretty good today. PT-OP-G Mobility & Gait Start: 03/08/22 17:00 Freq: Status: Active Protocol: Document 05/09/23 15:19 DCW (Rec: 05/09/23 15:48 DCW [id number]) OP Mobility Evaluation Transfers Bed to Chair Transfers Transfers using UE, improved with side-side movement Car Transfers uses slide board, stabilizes front to back and prevent slide down board Wheelchair Management Type of Wheelchair Manual w/c PT-OP-H Neuro Start: 03/08/22 17:00 Freq: Status: Active Protocol: Document 05/09/23 15:19 DCW (Rec: 05/09/23 15:48 DCW [id number]) Sensation Evaluation Gross Sensation Gross Sensation Left LE Impaired,Right LE Impaired,Trunk Impaired Sensation Description Paresthesia,Numbness,Tingling, Pins & [place],Burning Dermatome Impairments L1,L2,L3,L4,L5,S1,S2,S3,S4-5 Location Details Right Leg Light Touch Impaired Sharp/Dull Impaired Deep Pressure Intact/Normal Hot/Cold Absent Protective Sensation Absent Proprioception (Position) Impaired Kinesthesia (Movement) Impaired Two-Point Discrimination Impaired Tactile Localization Impaired Stereognosis Impaired Left Leg Light Touch Absent Sharp/Dull Absent Deep Pressure Absent Hot/Cold Impaired Protective Sensation Absent Proprioception (Position) Absent Kinesthesia (Movement) Impaired Two-Point Discrimination Absent Tactile Localization Absent Stereognosis Absent Comments Summary Comments R deep pressure present in thigh and calf, not into foot and toes. R protective reflex vs sharp present Deep Tendon Reflex & Clonus Assessment Deep Tendon Reflex Right Achilles Deep Tendon Reflex 1+ Diminished Right Patellar Deep Tendon Reflex 2+ Normal Left Achilles Deep Tendon Reflex 1+ Diminished Left Patellar Deep Tendon Reflex 1+ Diminished Muscle Tone Tone Assessment Right Lower Extremity Flexor Tone Description Moderate Hypertonicity Extensor Tone Description Moderate Hypertonicity Left Lower Extremity Flexor Tone Description Moderate Hypertonicity Extensor Tone Description Moderate Hypertonicity PT-OP-J Posture/Palpation/Skin Start: 03/08/22 17:00 Freq: Status: Active Protocol: Document 05/09/23 15:19 DCW (Rec: 05/09/23 15:48 DCW [id number]) Posture Evaluation Comments Posture Comments Sitting EOB with good core control and no instability. Recovers from most directional pushing. Improved ability to reach outside of base of support. PT-OP-M Strength Start: 08/21/22 15:38 Freq: Status: Active Protocol: Document 05/09/23 15:19 DCW (Rec: 05/09/23 15:48 DCW [id number]) Hip Strength Hip Manual Muscle Testing Right Extension (S1) 2- Poor- Adduction 2- Poor- Left Extension (S1) 2- Poor- Adduction 1 Trace Knee Strength Knee Manual Muscle Testing Right Flexion (S2) 1 Trace Extension (L3) 1 Trace Left Flexion (S2) 1 Trace Extension (L3) 1 Trace Ankle/Foot Strength Ankle and Foot Manual Muscle Testing Right Plantarflexion (S1) 2- Poor- Left Plantarflexion (S1) 1 Trace PT-OP-Q Treatments Start: 03/08/22 17:00 Freq: Status: Active Protocol: Document 07/02/23 15:16 DCW (Rec: 07/02/23 16:01 DCW [id number]) Cardio Equipment Recumbent Elliptical (Biodex) Duration (Minutes) 10 Resistance 8 Seat Position 10 Other w/c<->biodex w/ dysem CG/min A Therapeutic Activity Therapeutic Activity sit to stander Name Long 1st hole strap and longest lrg looped strap both on lower hook Reps/Minutes 1 stand 30 min Comments in //bars, 2 person (1 posterior pelvic/low back support, 2nd person stander control) Noted quad and gluteal firing with wt shifting and forward reach crossing midline for visual target forward/back/lateral with BUE support on standing frame bars or parallel bars level 36.5. Min cues for elongated posturing for TS ext. Improved decreased RLE flexor tone, ascend into standing with no pauses needed for tone but one pause for low back ascending. PT-OP-T Assessment and Plan Start: 03/08/22 17:00 Freq: Status: Active Protocol: Document 07/02/23 15:16 DCW (Rec: 07/02/23 16:01 DCW [id number]) Physical Therapy Assessment Goals Three Impairment Pt does not have any motor function throughout bilateral LEs Short Term Goal (STG) Pt to demonstrate 1/5 trace motor contraction in at least one quad in order to begin focus on LE mobility if neural functional return begins. STG Duration Met Intermediate Goal (LTG) Pt to demonstrate right quad strength to at least 2/5, demonstrating movement into ROM in an antigravity position LTG Duration 08/07/23 - improving Two Impairment Pt struggles with lateral transfer/scooting along EOB Intermediate Goal (LTG) Pt to perform lateral scoot transfer using proper technique without any verbal cues 4x in a row. LTG Duration 08/07/23 One Impairment Pt does not have an appropriate home exercise program Short Term Goal (STG) Pt to be independent and compliant with an appropriate HEP 07/30/22: progressing: resisted tricep ext, OH raises in w/c, supine HABD, added scaption OH B #2. STG Duration 04/15/23 Progressing Assessment Summary Assessment Good response to UE reaching while in standing frame, good challenge for pt to weight shift and stand more upright and improve posture. Physical Therapy Plan Frequency and Duration Frequency of Treatment 2x/Week Plan of Care Start Date 05/09/23 Plan of Care End Date 08/07/23 Therapeutic Interventions Therapeutic Interventions Aquatic Therapy,Balance Training,Coordination Training ,Gait Training,Home Exercise Program,Manual Therapy, Neuromuscular Re-education, Orthotic/Prosthetic Management ,Patient/Caregiver Education, Self-Care/Home Management, Sensory Integration,Soft Tissue Mobilization, Therapeutic Activities, Therapeutic Exercises, Wheelchair Management Next Visit Focus/Plan Next Note Type Treatment Note Next Visit Plan *Longest loop/straps for stander to support posterior pelvic support both on lower paper hanger bar hook. *Leg press next POC:Alternate Shuttle recovery and sit/stander. Continue UE and core strengthening, LE PROM and manual stretching. Transfers, mobility, LE ROM, pt will benefit from continued breakdown of transfers to improve efficiency and mechanics, as well as working on more seated balance EOB.
--- NOTE | 2023-07-09 16:02 | PT.OTN ---
Current Diagnoses Paraplegia, unspecified (07/09/23) Other specified personal risk factors, not elsewhere classified (07/09/23) Other specified postprocedural states (07/09/23) Physical Therapy Treatment Note PT-OP-A Visit Information Start: 03/08/22 17:00 Freq: Status: Active Protocol: Document 07/09/23 15:16 DCW (Rec: 07/09/23 16:02 DCW [id number]) Out-Patient Physical Therapy Visit Information Visit Information Visit Type Treatment Note Visit Start Time 15:16 Visit Stop Time 16:00 Visit Number 118 Number of PUMPING PLANT OPERATOR Visits 0 Evaluation Information Evaluation Date 03/08/22 PT-OP-B Current Condition Start: 03/08/22 17:00 Freq: Status: Active Protocol: Document 03/08/22 11:15 DCW (Rec: 03/08/22 17:11 DCW [id number]) Current Condition History of Current Condition Onset Date 12/16/21 Current Complaints Paraplegia History of Current Condition Pt is a 71 year old male with a very unfortunate medical history. Pt was hiking [email or web address] on 12/16/21 with a friend, finished up, drive back to his friend's home to drop him off, and noticed his left leg was collapsing. By the time pt drove home, both legs were giving out and numb. Pt was suddenly paralized from the waist down, was taken to the ED, and was flown to [facility] on 12/17/21. The following day, he underwent a laminectomy to relieve pressure from the thoracic epidural hematoma which had developed following his hike, which was pressing on his spinal cord. Following surgery , pt was in recovery for a week and was then transfered to rehab for 20 days, when he was finally discharged home in a wheelchair on 01/19/22. Pt reports his surgeon informed him that it is a possibility that he gets some return of nerve function. Has experienced some changes in his right LE, but has no motor function at this time from ~ T10 down. Minimal sensory return on right side, none on left. Pt has been anxious to get in to therapy and do everything he can to help return to function. Pt's , who attended his evaluation, notes that she has been doing a lot of PROM in his legs at night to keep everything moving. Pt can feel some stretching during PROM in his right leg. Pt has additionally already started occupational therapy, and has been practicing some seated stabilization. Pt transfers with a slide board, but notes it is difficult to do into his car, because he has to transfer upward at an incline. Treatment Goals Patient/Caregiver Goals I will do anything possible to get out of this wheelchair. My neurologist told me he has seen people recover from this , so I am not giving up hope. PT-OP-C Subjective Start: 03/08/22 17:00 Freq: Status: Active Protocol: Document 07/09/23 15:16 DCW (Rec: 07/09/23 16:02 DCW [id number]) OP-PT Subjective Patient Comments Patient Comments I don't know if it's something I'm doing or what, but my legs aren't really splaying out to the sides anymore. PT-OP-G Mobility & Gait Start: 03/08/22 17:00 Freq: Status: Active Protocol: Document 05/09/23 15:19 DCW (Rec: 05/09/23 15:48 DCW [id number]) OP Mobility Evaluation Transfers Bed to Chair Transfers Transfers using UE, improved with side-side movement Car Transfers uses slide board, stabilizes front to back and prevent slide down board Wheelchair Management Type of Wheelchair Manual w/c PT-OP-H Neuro Start: 03/08/22 17:00 Freq: Status: Active Protocol: Document 05/09/23 15:19 DCW (Rec: 05/09/23 15:48 DCW [id number]) Sensation Evaluation Gross Sensation Gross Sensation Left LE Impaired,Right LE Impaired,Trunk Impaired Sensation Description Paresthesia,Numbness,Tingling, Pins & [place],Burning Dermatome Impairments L1,L2,L3,L4,L5,S1,S2,S3,S4-5 Location Details Right Leg Light Touch Impaired Sharp/Dull Impaired Deep Pressure Intact/Normal Hot/Cold Absent Protective Sensation Absent Proprioception (Position) Impaired Kinesthesia (Movement) Impaired Two-Point Discrimination Impaired Tactile Localization Impaired Stereognosis Impaired Left Leg Light Touch Absent Sharp/Dull Absent Deep Pressure Absent Hot/Cold Impaired Protective Sensation Absent Proprioception (Position) Absent Kinesthesia (Movement) Impaired Two-Point Discrimination Absent Tactile Localization Absent Stereognosis Absent Comments Summary Comments R deep pressure present in thigh and calf, not into foot and toes. R protective reflex vs sharp present Deep Tendon Reflex & Clonus Assessment Deep Tendon Reflex Right Achilles Deep Tendon Reflex 1+ Diminished Right Patellar Deep Tendon Reflex 2+ Normal Left Achilles Deep Tendon Reflex 1+ Diminished Left Patellar Deep Tendon Reflex 1+ Diminished Muscle Tone Tone Assessment Right Lower Extremity Flexor Tone Description Moderate Hypertonicity Extensor Tone Description Moderate Hypertonicity Left Lower Extremity Flexor Tone Description Moderate Hypertonicity Extensor Tone Description Moderate Hypertonicity PT-OP-J Posture/Palpation/Skin Start: 03/08/22 17:00 Freq: Status: Active Protocol: Document 05/09/23 15:19 DCW (Rec: 05/09/23 15:48 DCW [id number]) Posture Evaluation Comments Posture Comments Sitting EOB with good core control and no instability. Recovers from most directional pushing. Improved ability to reach outside of base of support. PT-OP-M Strength Start: 08/21/22 15:38 Freq: Status: Active Protocol: Document 05/09/23 15:19 DCW (Rec: 05/09/23 15:48 DCW [id number]) Hip Strength Hip Manual Muscle Testing Right Extension (S1) 2- Poor- Adduction 2- Poor- Left Extension (S1) 2- Poor- Adduction 1 Trace Knee Strength Knee Manual Muscle Testing Right Flexion (S2) 1 Trace Extension (L3) 1 Trace Left Flexion (S2) 1 Trace Extension (L3) 1 Trace Ankle/Foot Strength Ankle and Foot Manual Muscle Testing Right Plantarflexion (S1) 2- Poor- Left Plantarflexion (S1) 1 Trace PT-OP-Q Treatments Start: 03/08/22 17:00 Freq: Status: Active Protocol: Document 07/09/23 15:16 DCW (Rec: 07/09/23 16:02 DCW [id number]) Cardio Equipment Recumbent Elliptical (Biodex) Duration (Minutes) 10 Resistance 9 Seat Position 10 Other w/c<->biodex w/ dysem CG/min A Therapeutic Activity Therapeutic Activity sit to stander Name Long 1st hole strap and longest lrg looped strap both on lower hook Reps/Minutes 1 stand 30 min Comments in //bars. Noted quad and gluteal firing with wt shifting and forward reach crossing midline for visual target forward/back/lateral with BUE support on standing frame bars or parallel bars level 36.5. Min cues for elongated posturing for TS ext. Improved decreased RLE flexor tone, ascend into standing with no pauses needed for tone but one pause for low back ascending. PT-OP-T Assessment and Plan Start: 03/08/22 17:00 Freq: Status: Active Protocol: Document 07/09/23 15:16 DCW (Rec: 07/09/23 16:02 DCW [id number]) Physical Therapy Assessment Goals Three Impairment Pt does not have any motor function throughout bilateral LEs Short Term Goal (STG) Pt to demonstrate 1/5 trace motor contraction in at least one quad in order to begin focus on LE mobility if neural functional return begins. STG Duration Met Assisted Goal (LTG) Pt to demonstrate right quad strength to at least 2/5, demonstrating movement into ROM in an antigravity position LTG Duration 08/07/23 - improving Two Impairment Pt struggles with lateral transfer/scooting along EOB Tiler'S Assistant Goal (LTG) Pt to perform lateral scoot transfer using proper technique without any verbal cues 4x in a row. LTG Duration 08/07/23 One Impairment Pt does not have an appropriate home exercise program Short Term Goal (STG) Pt to be independent and compliant with an appropriate HEP 07/30/22: progressing: resisted tricep ext, OH raises in w/c, supine HABD, added scaption OH B #2. STG Duration 04/15/23 Progressing Assessment Summary Assessment Pt dod well in stander today, good tolerance to UE reaching for weight shifting. Physical Therapy Plan Frequency and Duration Frequency of Treatment 2x/Week Plan of Care Start Date 05/09/23 Plan of Care End Date 08/07/23 Therapeutic Interventions Therapeutic Interventions Aquatic Therapy,Balance Training,Coordination Training ,Gait Training,Home Exercise Program,Manual Therapy, Neuromuscular Re-education, Orthotic/Prosthetic Management ,Patient/Caregiver Education, Self-Care/Home Management, Sensory Integration,Soft Tissue Mobilization, Therapeutic Activities, Therapeutic Exercises, Wheelchair Management Next Visit Focus/Plan Next Note Type Treatment Note Next Visit Plan *Longest loop/straps for stander to support posterior pelvic support both on lower jacket changer bar hook. *Leg press next POC:Alternate Shuttle recovery and sit/stander. Continue UE and core strengthening, LE PROM and manual stretching. Transfers, mobility, LE ROM, pt will benefit from continued breakdown of transfers to improve efficiency and mechanics, as well as working on more seated balance EOB.
--- NOTE | 2023-07-11 16:44 | PT.OTN ---
Current Diagnoses Paraplegia, unspecified (07/11/23) Other specified personal risk factors, not elsewhere classified (07/11/23) Other specified postprocedural states (07/11/23) Physical Therapy Treatment Note PT-OP-A Visit Information Start: 03/08/22 17:00 Freq: Status: Active Protocol: Document 07/11/23 15:22 NBM (Rec: 07/11/23 16:43 NBM [id number]) Out-Patient Physical Therapy Visit Information Visit Information Visit Type Treatment Note Visit Start Time 15:18 Visit Stop Time 16:08 Visit Number 118 Number of CURB SETTER HELPER Visits 1 PT-OP-B Current Condition Start: 03/08/22 17:00 Freq: Status: Active Protocol: Document 03/08/22 11:15 DCW (Rec: 03/08/22 17:11 DCW [id number]) Current Condition History of Current Condition Onset Date 12/16/21 Current Complaints Paraplegia History of Current Condition Pt is a 71 year old male with a very unfortunate medical history. Pt was hiking [employer] on 12/16/21 with a friend, finished up, drive back to his friend's home to drop him off, and noticed his left leg was collapsing. By the time pt drove home, both legs were giving out and numb. Pt was suddenly paralized from the waist down, was taken to the ED, and was flown to [facility] on 12/17/21. The following day, he underwent a laminectomy to relieve pressure from the thoracic epidural hematoma which had developed following his hike, which was pressing on his spinal cord. Following surgery , pt was in recovery for a week and was then transfered to rehab for 20 days, when he was finally discharged home in a wheelchair on 01/19/22. Pt reports his surgeon informed him that it is a possibility that he gets some return of nerve function. Has experienced some changes in his right LE, but has no motor function at this time from ~ T10 down. Minimal sensory return on right side, none on left. Pt has been anxious to get in to therapy and do everything he can to help return to function. Pt's , who attended his evaluation, notes that she has been doing a lot of PROM in his legs at night to keep everything moving. Pt can feel some stretching during PROM in his right leg. Pt has additionally already started occupational therapy, and has been practicing some seated stabilization. Pt transfers with a slide board, but notes it is difficult to do into his car, because he has to transfer upward at an incline. Treatment Goals Patient/Caregiver Goals I will do anything possible to get out of this wheelchair. My neurologist told me he has seen people recover from this , so I am not giving up hope. PT-OP-C Subjective Start: 03/08/22 17:00 Freq: Status: Active Protocol: Document 07/11/23 15:22 NB (Rec: 07/11/23 16:43 [facility] [id number]) OP-PT Subjective Patient Comments Patient Comments Pt reports he is waiting for phone call back from [facility] for stander. I have more and more feeling in my R leg and, I don't know if it's wishful thinking but I think my L leg is starting to wake up. I always feel better when I leave physical therapy. Patient Reported Progress Improving PT-OP-G Mobility & Gait Start: 03/08/22 17:00 Freq: Status: Active Protocol: Document 05/09/23 15:19 DCW (Rec: 05/09/23 15:48 DCW [id number]) OP Mobility Evaluation Transfers Bed to Chair Transfers Transfers using UE, improved with side-side movement Car Transfers uses slide board, stabilizes front to back and prevent slide down board Wheelchair Management Type of Wheelchair Manual w/c PT-OP-H Neuro Start: 03/08/22 17:00 Freq: Status: Active Protocol: Document 05/09/23 15:19 DCW (Rec: 05/09/23 15:48 DCW [id number]) Sensation Evaluation Gross Sensation Gross Sensation Left LE Impaired,Right LE Impaired,Trunk Impaired Sensation Description Paresthesia,Numbness,Tingling, Pins & [place],Burning Dermatome Impairments L1,L2,L3,L4,L5,S1,S2,S3,S4-5 Location Details Right Leg Light Touch Impaired Sharp/Dull Impaired Deep Pressure Intact/Normal Hot/Cold Absent Protective Sensation Absent Proprioception (Position) Impaired Kinesthesia (Movement) Impaired Two-Point Discrimination Impaired Tactile Localization Impaired Stereognosis Impaired Left Leg Light Touch Absent Sharp/Dull Absent Deep Pressure Absent Hot/Cold Impaired Protective Sensation Absent Proprioception (Position) Absent Kinesthesia (Movement) Impaired Two-Point Discrimination Absent Tactile Localization Absent Stereognosis Absent Comments Summary Comments R deep pressure present in thigh and calf, not into foot and toes. R protective reflex vs sharp present Deep Tendon Reflex & Clonus Assessment Deep Tendon Reflex Right Achilles Deep Tendon Reflex 1+ Diminished Right Patellar Deep Tendon Reflex 2+ Normal Left Achilles Deep Tendon Reflex 1+ Diminished Left Patellar Deep Tendon Reflex 1+ Diminished Muscle Tone Tone Assessment Right Lower Extremity Flexor Tone Description Moderate Hypertonicity Extensor Tone Description Moderate Hypertonicity Left Lower Extremity Flexor Tone Description Moderate Hypertonicity Extensor Tone Description Moderate Hypertonicity PT-OP-J Posture/Palpation/Skin Start: 03/08/22 17:00 Freq: Status: Active Protocol: Document 05/09/23 15:19 DCW (Rec: 05/09/23 15:48 DCW [id number]) Posture Evaluation Comments Posture Comments Sitting EOB with good core control and no instability. Recovers from most directional pushing. Improved ability to reach outside of base of support. PT-OP-M Strength Start: 08/21/22 15:38 Freq: Status: Active Protocol: Document 05/09/23 15:19 DCW (Rec: 05/09/23 15:48 DCW [id number]) Hip Strength Hip Manual Muscle Testing Right Extension (S1) 2- Poor- Adduction 2- Poor- Left Extension (S1) 2- Poor- Adduction 1 Trace Knee Strength Knee Manual Muscle Testing Right Flexion (S2) 1 Trace Extension (L3) 1 Trace Left Flexion (S2) 1 Trace Extension (L3) 1 Trace Ankle/Foot Strength Ankle and Foot Manual Muscle Testing Right Plantarflexion (S1) 2- Poor- Left Plantarflexion (S1) 1 Trace PT-OP-Q Treatments Start: 03/08/22 17:00 Freq: Status: Active Protocol: Document 07/11/23 15:22 NBM (Rec: 07/11/23 16:43 NBM [id number]) Cardio Equipment Recumbent Elliptical (Biodex) Duration (Minutes) 14 Resistance 9 Seat Position 10 Other w/c<->biodex w/ dysem CG/min A Therapeutic Exercises Supine Exercises Hip Flexor Stretch Supine Exercise Name Hip Flexor Stretch (LE extension) Side bilateral Equipment Used large wedge w/ two pillows supporting trunk, LEs hanging off edge Reps/Minutes 4 min Comments w/ chest drum puller pec stretch 1. dowel overhead, 2. goal post w B overpressur Sitting Exercises DL isometric press Sitting Exercise Name core and breathwork focus Equipment Used large blue dynadisc under BLEs Reps/Minutes 3 x 5 SH Therapeutic Activity Therapeutic Activity squat/lateral scoot transfer Comments 1. w/c<>biodex CGA/Min A 2. w/c<>plinth moving w/ gravity assist. Neuro Re-Education Treatment Balance Activities Seated balance Details SBA/CGA, occasional Min>mod A for LOB Equipment seated EOB on black plinth w large blue dynadisc under BLEs Comments 1. lateral and a/p weightshifting 2. balloon volleyball: alternating reaching one hand to target with 1 UE support> no UE support w/ min A for upright balance. 3. AP mvmt w/ dowel (2#) in BUE to hit balloon from PT Aide- chest height>shoulder height, vc for upright sitting posture. Derrek>modA PT-OP-T Assessment and Plan Start: 03/08/22 17:00 Freq: Status: Active Protocol: Document 07/11/23 15:22 [facility] (Rec: 07/11/23 16:43 [facility] [id number]) Physical Therapy Assessment Goals Three Impairment Pt does not have any motor function throughout bilateral LEs Short Term Goal (STG) Pt to demonstrate 1/5 trace motor contraction in at least one quad in order to begin focus on LE mobility if neural functional return begins. STG Duration Met Correction Goal (LTG) Pt to demonstrate right quad strength to at least 2/5, demonstrating movement into ROM in an antigravity position LTG Duration 08/07/23 - improving Two Impairment Pt struggles with lateral transfer/scooting along EOB Correction Goal (LTG) Pt to perform lateral scoot transfer using proper technique without any verbal cues 4x in a row. LTG Duration 08/07/23 One Impairment Pt does not have an appropriate home exercise program Short Term Goal (STG) Pt to be independent and compliant with an appropriate HEP 07/30/22: progressing: resisted tricep ext, OH raises in w/c, supine HABD, added scaption OH B #2. STG Duration 04/15/23 Progressing Assessment Summary Assessment Treatment focus on neural priming on recumbent elliptical, seated dynamic balance edge of bed w/ focus on upright sitting posture, and hip flexor and pec stretching. Elizabeth is appropriately challenged with seated dynamic balance today using large dynadisc under BLEs w/ dynamic reaching without LOB w/ CGA>Derrek and focus on decreasing from 1 [place]ARD[place] to no PARK WARDEN. Physical Therapy Plan Frequency and Duration Frequency of Treatment 2x/Week Plan of Care Start Date 05/09/23 Plan of Care End Date 08/07/23 Therapeutic Interventions Therapeutic Interventions Aquatic Therapy,Balance Training,Coordination Training ,Gait Training,Home Exercise Program,Manual Therapy, Neuromuscular Re-education, Orthotic/Prosthetic Management ,Patient/Caregiver Education, Self-Care/Home Management, Sensory Integration,Soft Tissue Mobilization, Therapeutic Activities, Therapeutic Exercises, Wheelchair Management Next Visit Focus/Plan Next Note Type Treatment Note Next Visit Plan *Longest loop/straps for stander to support posterior pelvic support both on lower mold insert changer bar hook. *Leg press next POC:Alternate Shuttle recovery and sit/stander. Continue UE and core strengthening, LE PROM and manual stretching. Transfers, mobility, LE ROM, pt will benefit from continued breakdown of transfers to improve efficiency and mechanics, as well as working on more seated balance EOB.
--- NOTE | 2023-07-16 16:34 | PT.OTN ---
Current Diagnoses Paraplegia, unspecified (07/16/23) Other specified personal risk factors, not elsewhere classified (07/16/23) Other specified postprocedural states (07/16/23) Physical Therapy Treatment Note PT-OP-A Visit Information Start: 03/08/22 17:00 Freq: Status: Active Protocol: Document 07/16/23 15:01 AB (Rec: 07/16/23 16:34 AB [id number]) Out-Patient Physical Therapy Visit Information Visit Information Visit Type Treatment Note Visit Start Time 15:19 Visit Stop Time 16:10 Visit Number 119 Number of CHIEF LEARNING OFFICER Visits 2 Evaluation Information Evaluation Date 03/08/22 PT-OP-B Current Condition Start: 03/08/22 17:00 Freq: Status: Active Protocol: Document 03/08/22 11:15 DCW (Rec: 03/08/22 17:11 DCW [id number]) Current Condition History of Current Condition Onset Date 12/16/21 Current Complaints Paraplegia History of Current Condition Pt is a 71 year old male with a very unfortunate medical history. Pt was hiking [place] on 12/16/21 with a friend, finished up, drive back to his friend's home to drop him off, and noticed his left leg was collapsing. By the time pt drove home, both legs were giving out and numb. Pt was suddenly paralized from the waist down, was taken to the ED, and was flown to [facility] on 12/17/21. The following day, he underwent a laminectomy to relieve pressure from the thoracic epidural hematoma which had developed following his hike, which was pressing on his spinal cord. Following surgery , pt was in recovery for a week and was then transfered to rehab for 20 days, when he was finally discharged home in a wheelchair on 01/19/22. Pt reports his surgeon informed him that it is a possibility that he gets some return of nerve function. Has experienced some changes in his right LE, but has no motor function at this time from ~ T10 down. Minimal sensory return on right side, none on left. Pt has been anxious to get in to therapy and do everything he can to help return to function. Pt's , who attended his evaluation, notes that she has been doing a lot of PROM in his legs at night to keep everything moving. Pt can feel some stretching during PROM in his right leg. Pt has additionally already started occupational therapy, and has been practicing some seated stabilization. Pt transfers with a slide board, but notes it is difficult to do into his car, because he has to transfer upward at an incline. Treatment Goals Patient/Caregiver Goals I will do anything possible to get out of this wheelchair. My neurologist told me he has seen people recover from this , so I am not giving up hope. PT-OP-C Subjective Start: 03/08/22 17:00 Freq: Status: Active Protocol: Document 07/16/23 15:01 AB (Rec: 07/16/23 16:34 AB [id number]) OP-PT Subjective Patient Comments Patient Comments Patient reports he is playing phone tag with [facility] regarding the stander. Patient reports nothing markedly differnent with function, but notices more sensation with right LE. PT-OP-G Mobility & Gait Start: 03/08/22 17:00 Freq: Status: Active Protocol: Document 05/09/23 15:19 DCW (Rec: 05/09/23 15:48 DCW [id number]) OP Mobility Evaluation Transfers Bed to Chair Transfers Transfers using UE, improved with side-side movement Car Transfers uses slide board, stabilizes front to back and prevent slide down board Wheelchair Management Type of Wheelchair Manual w/c PT-OP-H Neuro Start: 03/08/22 17:00 Freq: Status: Active Protocol: Document 05/09/23 15:19 DCW (Rec: 05/09/23 15:48 DCW [id number]) Sensation Evaluation Gross Sensation Gross Sensation Left LE Impaired,Right LE Impaired,Trunk Impaired Sensation Description Paresthesia,Numbness,Tingling, Pins & [place],Burning Dermatome Impairments L1,L2,L3,L4,L5,S1,S2,S3,S4-5 Location Details Right Leg Light Touch Impaired Sharp/Dull Impaired Deep Pressure Intact/Normal Hot/Cold Absent Protective Sensation Absent Proprioception (Position) Impaired Kinesthesia (Movement) Impaired Two-Point Discrimination Impaired Tactile Localization Impaired Stereognosis Impaired Left Leg Light Touch Absent Sharp/Dull Absent Deep Pressure Absent Hot/Cold Impaired Protective Sensation Absent Proprioception (Position) Absent Kinesthesia (Movement) Impaired Two-Point Discrimination Absent Tactile Localization Absent Stereognosis Absent Comments Summary Comments R deep pressure present in thigh and calf, not into foot and toes. R protective reflex vs sharp present Deep Tendon Reflex & Clonus Assessment Deep Tendon Reflex Right Achilles Deep Tendon Reflex 1+ Diminished Right Patellar Deep Tendon Reflex 2+ Normal Left Achilles Deep Tendon Reflex 1+ Diminished Left Patellar Deep Tendon Reflex 1+ Diminished Muscle Tone Tone Assessment Right Lower Extremity Flexor Tone Description Moderate Hypertonicity Extensor Tone Description Moderate Hypertonicity Left Lower Extremity Flexor Tone Description Moderate Hypertonicity Extensor Tone Description Moderate Hypertonicity PT-OP-J Posture/Palpation/Skin Start: 03/08/22 17:00 Freq: Status: Active Protocol: Document 05/09/23 15:19 DCW (Rec: 05/09/23 15:48 DCW [id number]) Posture Evaluation Comments Posture Comments Sitting EOB with good core control and no instability. Recovers from most directional pushing. Improved ability to reach outside of base of support. PT-OP-M Strength Start: 08/21/22 15:38 Freq: Status: Active Protocol: Document 05/09/23 15:19 DCW (Rec: 05/09/23 15:48 DCW [id number]) Hip Strength Hip Manual Muscle Testing Right Extension (S1) 2- Poor- Adduction 2- Poor- Left Extension (S1) 2- Poor- Adduction 1 Trace Knee Strength Knee Manual Muscle Testing Right Flexion (S2) 1 Trace Extension (L3) 1 Trace Left Flexion (S2) 1 Trace Extension (L3) 1 Trace Ankle/Foot Strength Ankle and Foot Manual Muscle Testing Right Plantarflexion (S1) 2- Poor- Left Plantarflexion (S1) 1 Trace PT-OP-Q Treatments Start: 03/08/22 17:00 Freq: Status: Active Protocol: Document 07/16/23 15:01 AB (Rec: 07/16/23 16:34 AB [id number]) Cardio Equipment Recumbent Elliptical (Biodex) Duration (Minutes) 8 Resistance 9 Seat Position 10 Other w/c<->biodex w/ dysem CG/min A Therapeutic Activity Therapeutic Activity sit to stander Name Long 1st hole strap and longest lrg looped strap both on lower hook Reps/Minutes 1 stand 8 min post set up Comments in //bars. one pause for low back ascending, Weight shift lateral and AP, reaching and cross body reaching. Patient ed pre gait of lateral and fwd weight shift. Neuro Re-Education Treatment Other Activities tapping to facilitate quad Details seated Reps/Duration X5 X2 each LE then X 1 left X 2 right Comments seated with LE supported, verbal and visual cues for tapping/slapping quad followed by quad set, noted visible quad activation right quad on first 2 sets of X and very slight knee ext on left first 2 sets of 5, end of session no activation noted, likely due to fatigue. Training performed with . Self-Care/Home Management Treatment Education Caregiver Education into clinic for training in positioning LE for patient to perform tapping to facilitate quad prior to quad set. Also, educated in being present while patient sits with feet on floor and back not resting on backrest of chair for increasing trunk strength. Activities Self-Care/Home Management Activities tapping to facilitate quad prior to quad set, and isometric for core while seated added to HEP PT-OP-T Assessment and Plan Start: 03/08/22 17:00 Freq: Status: Active Protocol: Document 07/16/23 15:01 AB (Rec: 07/16/23 16:34 AB [id number]) Physical Therapy Assessment Goals Three Impairment Pt does not have any motor function throughout bilateral LEs Short Term Goal (STG) Pt to demonstrate 1/5 trace motor contraction in at least one quad in order to begin focus on LE mobility if neural functional return begins. STG Duration Met Penitentiary Goal (LTG) Pt to demonstrate right quad strength to at least 2/5, demonstrating movement into ROM in an antigravity position LTG Duration 08/07/23 - improving Two Impairment Pt struggles with lateral transfer/scooting along EOB Penitentiary Goal (LTG) Pt to perform lateral scoot transfer using proper technique without any verbal cues 4x in a row. LTG Duration 08/07/23 One Impairment Pt does not have an appropriate home exercise program Short Term Goal (STG) Pt to be independent and compliant with an appropriate HEP 07/30/22: progressing: resisted tricep ext, OH raises in w/c, supine HABD, added scaption OH B #2. STG Duration 04/15/23 Progressing Assessment Summary Assessment right LE with increased quad activation post tapping to facilitate start of session, end of session with no activation noted, likely due to fatigue. Performs scoot pivot transfer to seated eliptical with multiple scoots , back to chair with one larger scoot and minimal assist then additional scoots for positioning. Physical Therapy Plan Frequency and Duration Frequency of Treatment 2x/Week Plan of Care Start Date 05/09/23 Plan of Care End Date 08/07/23 Next Visit Focus/Plan Next Note Type Treatment Note Next Visit Plan *Longest loop/straps for stander to support posterior pelvic support both on lower chemical cell changer bar hook. *Leg press next POC:Alternate Shuttle recovery and sit/stander. Continue UE and core strengthening, LE PROM and manual stretching. Transfers, mobility, LE ROM, pt will benefit from continued breakdown of transfers to improve efficiency and mechanics, as well as working on more seated balance EOB.
--- NOTE | 2023-07-23 15:16 | PT.OTN ---
Current Diagnoses Paraplegia, unspecified (07/23/23) Other specified personal risk factors, not elsewhere classified (07/23/23) Other specified postprocedural states (07/23/23) Physical Therapy Treatment Note PT-OP-A Visit Information Start: 03/08/22 17:00 Freq: Status: Active Protocol: Document 07/23/23 14:30 DCW (Rec: 07/23/23 15:16 DCW [id number]) Out-Patient Physical Therapy Visit Information Visit Information Visit Type Treatment Note Visit Start Time 14:30 Visit Stop Time 15:15 Visit Number 121 Number of FLIGHT CREW ORDNANCEMAN Visits 0 Evaluation Information Evaluation Date 03/08/22 PT-OP-B Current Condition Start: 03/08/22 17:00 Freq: Status: Active Protocol: Document 03/08/22 11:15 DCW (Rec: 03/08/22 17:11 DCW [id number]) Current Condition History of Current Condition Onset Date 12/16/21 Current Complaints Paraplegia History of Current Condition Pt is a 71 year old male with a very unfortunate medical history. Pt was hiking [place] on 12/16/21 with a friend, finished up, drive back to his friend's home to drop him off, and noticed his left leg was collapsing. By the time pt drove home, both legs were giving out and numb. Pt was suddenly paralized from the waist down, was taken to the ED, and was flown to [facility] on 12/17/21. The following day, he underwent a laminectomy to relieve pressure from the thoracic epidural hematoma which had developed following his hike, which was pressing on his spinal cord. Following surgery , pt was in recovery for a week and was then transfered to rehab for 20 days, when he was finally discharged home in a wheelchair on 01/19/22. Pt reports his surgeon informed him that it is a possibility that he gets some return of nerve function. Has experienced some changes in his right LE, but has no motor function at this time from ~ T10 down. Minimal sensory return on right side, none on left. Pt has been anxious to get in to therapy and do everything he can to help return to function. Pt's , who attended his evaluation, notes that she has been doing a lot of PROM in his legs at night to keep everything moving. Pt can feel some stretching during PROM in his right leg. Pt has additionally already started occupational therapy, and has been practicing some seated stabilization. Pt transfers with a slide board, but notes it is difficult to do into his car, because he has to transfer upward at an incline. Treatment Goals Patient/Caregiver Goals I will do anything possible to get out of this wheelchair. My neurologist told me he has seen people recover from this , so I am not giving up hope. PT-OP-C Subjective Start: 03/08/22 17:00 Freq: Status: Active Protocol: Document 07/23/23 14:30 DCW (Rec: 07/23/23 15:16 DCW [id number]) OP-PT Subjective Patient Comments Patient Comments Had some increased muscle spasming during the night last night, admits it might be the worst it's ever been. Ordered his stander from [employer], expecting it in the next week or two. PT-OP-G Mobility & Gait Start: 03/08/22 17:00 Freq: Status: Active Protocol: Document 05/09/23 15:19 DCW (Rec: 05/09/23 15:48 DCW [id number]) OP Mobility Evaluation Transfers Bed to Chair Transfers Transfers using UE, improved with side-side movement Car Transfers uses slide board, stabilizes front to back and prevent slide down board Wheelchair Management Type of Wheelchair Manual w/c PT-OP-H Neuro Start: 03/08/22 17:00 Freq: Status: Active Protocol: Document 05/09/23 15:19 DCW (Rec: 05/09/23 15:48 DCW [id number]) Sensation Evaluation Gross Sensation Gross Sensation Left LE Impaired,Right LE Impaired,Trunk Impaired Sensation Description Paresthesia,Numbness,Tingling, Pins & [place],Burning Dermatome Impairments L1,L2,L3,L4,L5,S1,S2,S3,S4-5 Location Details Right Leg Light Touch Impaired Sharp/Dull Impaired Deep Pressure Intact/Normal Hot/Cold Absent Protective Sensation Absent Proprioception (Position) Impaired Kinesthesia (Movement) Impaired Two-Point Discrimination Impaired Tactile Localization Impaired Stereognosis Impaired Left Leg Light Touch Absent Sharp/Dull Absent Deep Pressure Absent Hot/Cold Impaired Protective Sensation Absent Proprioception (Position) Absent Kinesthesia (Movement) Impaired Two-Point Discrimination Absent Tactile Localization Absent Stereognosis Absent Comments Summary Comments R deep pressure present in thigh and calf, not into foot and toes. R protective reflex vs sharp present Deep Tendon Reflex & Clonus Assessment Deep Tendon Reflex Right Achilles Deep Tendon Reflex 1+ Diminished Right Patellar Deep Tendon Reflex 2+ Normal Left Achilles Deep Tendon Reflex 1+ Diminished Left Patellar Deep Tendon Reflex 1+ Diminished Muscle Tone Tone Assessment Right Lower Extremity Flexor Tone Description Moderate Hypertonicity Extensor Tone Description Moderate Hypertonicity Left Lower Extremity Flexor Tone Description Moderate Hypertonicity Extensor Tone Description Moderate Hypertonicity PT-OP-J Posture/Palpation/Skin Start: 03/08/22 17:00 Freq: Status: Active Protocol: Document 05/09/23 15:19 DCW (Rec: 05/09/23 15:48 DCW [id number]) Posture Evaluation Comments Posture Comments Sitting EOB with good core control and no instability. Recovers from most directional pushing. Improved ability to reach outside of base of support. PT-OP-M Strength Start: 08/21/22 15:38 Freq: Status: Active Protocol: Document 05/09/23 15:19 DCW (Rec: 05/09/23 15:48 DCW [id number]) Hip Strength Hip Manual Muscle Testing Right Extension (S1) 2- Poor- Adduction 2- Poor- Left Extension (S1) 2- Poor- Adduction 1 Trace Knee Strength Knee Manual Muscle Testing Right Flexion (S2) 1 Trace Extension (L3) 1 Trace Left Flexion (S2) 1 Trace Extension (L3) 1 Trace Ankle/Foot Strength Ankle and Foot Manual Muscle Testing Right Plantarflexion (S1) 2- Poor- Left Plantarflexion (S1) 1 Trace PT-OP-Q Treatments Start: 03/08/22 17:00 Freq: Status: Active Protocol: Document 07/23/23 14:30 DCW (Rec: 07/23/23 15:16 DCW [id number]) Cardio Equipment Recumbent Elliptical (Biodex) Duration (Minutes) 10 Resistance 9 Seat Position 10 Other w/c<->biodex w/ dysem CG/min A Gym Equipment Shuttle Recovery Bilateral Squats Details with BUE assist on thighs Resistance 25# assisted>12# unassisted w/ breath focus>25# assisted w/ breath focus Shuttle Recovery Platform Stable Reps/Time Slight movements when unassisted, assisted back-> eccentric lowering Therapeutic Ball Abdominal Curl Exercise Details Press ball into abdomen in supine Ball Size/Color Red - 55 cm Neuro Re-Education Treatment Balance Activities Seated balance Details SBA/CGA, occasional Min>mod A for LOB Equipment seated EOB on black plinth Comments 1. lateral and a/p weightshifting 2. balloon volleyball: alternating reaching one hand to target with 1 UE support> no UE support w/ min A for upright balance. 3. AP mvmt w/ dowel (2#) in BUE to hit balloon from PT Aide- chest height>shoulder height, vc for upright sitting posture. Derrek>modA PT-OP-T Assessment and Plan Start: 03/08/22 17:00 Freq: Status: Active Protocol: Document 07/23/23 14:30 DCW (Rec: 07/23/23 15:16 DCW [id number]) Physical Therapy Assessment Impairments Impairments Activity Tolerance,Balance, Coordination,Functional Activities,Functional Mobility ,Gait,Integument,Sensation, Soft Tissue Mobility,Strength, Tone,Transfers Goals Three Impairment Pt does not have any motor function throughout bilateral LEs Short Term Goal (STG) Pt to demonstrate 1/5 trace motor contraction in at least one quad in order to begin focus on LE mobility if neural functional return begins. STG Duration Met Assisted Goal (LTG) Pt to demonstrate right quad strength to at least 2/5, demonstrating movement into ROM in an antigravity position LTG Duration 08/07/23 - improving Two Impairment Pt struggles with lateral transfer/scooting along EOB Assisted Goal (LTG) Pt to perform lateral scoot transfer using proper technique without any verbal cues 4x in a row. LTG Duration 08/07/23 One Impairment Pt does not have an appropriate home exercise program Short Term Goal (STG) Pt to be independent and compliant with an appropriate HEP 07/30/22: progressing: resisted tricep ext, OH raises in w/c, supine HABD, added scaption OH B #2. STG Duration 04/15/23 Progressing Assessment Summary Assessment Very good response to new abdominal press/curl, good motor activation of TrA. Will likely decrease use of stander here at clinic if pt's home stander arrives soon. Continue to work on transfers, LE motor control, seated balance, and abdominal stabilization. Physical Therapy Plan Frequency and Duration Frequency of Treatment 2x/Week Plan of Care Start Date 05/09/23 Plan of Care End Date 08/07/23 Therapeutic Interventions Therapeutic Interventions Aquatic Therapy,Balance Training,Coordination Training ,Gait Training,Home Exercise Program,Manual Therapy, Neuromuscular Re-education, Orthotic/Prosthetic Management ,Patient/Caregiver Education, Self-Care/Home Management, Sensory Integration,Soft Tissue Mobilization, Therapeutic Activities, Therapeutic Exercises, Wheelchair Management Next Visit Focus/Plan Next Note Type Treatment Note Next Visit Plan *Longest loop/straps for stander to support posterior pelvic support both on lower bander and cellophaner machine helper bar hook. *Stander next POC:Alternate Shuttle recovery and sit/stander. Continue UE and core strengthening, LE PROM and manual stretching. Transfers, mobility, LE ROM, pt will benefit from continued breakdown of transfers to improve efficiency and mechanics, as well as working on more seated balance EOB.
--- NOTE | 2023-07-25 16:00 | PT.OTN ---
Current Diagnoses Paraplegia, unspecified (07/25/23) Other specified personal risk factors, not elsewhere classified (07/25/23) Other specified postprocedural states (07/25/23) Physical Therapy Treatment Note PT-OP-A Visit Information Start: 03/08/22 17:00 Freq: Status: Active Protocol: Document 07/25/23 15:20 DCW (Rec: 07/25/23 16:00 DCW [id number]) Out-Patient Physical Therapy Visit Information Visit Information Visit Type Treatment Note Visit Start Time 15:20 Visit Stop Time 16:00 Visit Number [id number] Number of MANAGER OF HOSPITAL Visits 0 Evaluation Information Evaluation Date 03/08/22 PT-OP-B Current Condition Start: 03/08/22 17:00 Freq: Status: Active Protocol: Document 03/08/22 11:15 DCW (Rec: 03/08/22 17:11 DCW [id number]) Current Condition History of Current Condition Onset Date 12/16/21 Current Complaints Paraplegia History of Current Condition Pt is a 71 year old male with a very unfortunate medical history. Pt was hiking [employer] on 12/16/21 with a friend, finished up, drive back to his friend's home to drop him off, and noticed his left leg was collapsing. By the time pt drove home, both legs were giving out and numb. Pt was suddenly paralized from the waist down, was taken to the ED, and was flown to [facility] on 12/17/21. The following day, he underwent a laminectomy to relieve pressure from the thoracic epidural hematoma which had developed following his hike, which was pressing on his spinal cord. Following surgery , pt was in recovery for a week and was then transfered to rehab for 20 days, when he was finally discharged home in a wheelchair on 01/19/22. Pt reports his surgeon informed him that it is a possibility that he gets some return of nerve function. Has experienced some changes in his right LE, but has no motor function at this time from ~ T10 down. Minimal sensory return on right side, none on left. Pt has been anxious to get in to therapy and do everything he can to help return to function. Pt's , who attended his evaluation, notes that she has been doing a lot of PROM in his legs at night to keep everything moving. Pt can feel some stretching during PROM in his right leg. Pt has additionally already started occupational therapy, and has been practicing some seated stabilization. Pt transfers with a slide board, but notes it is difficult to do into his car, because he has to transfer upward at an incline. Treatment Goals Patient/Caregiver Goals I will do anything possible to get out of this wheelchair. My neurologist told me he has seen people recover from this , so I am not giving up hope. PT-OP-C Subjective Start: 03/08/22 17:00 Freq: Status: Active Protocol: Document 07/23/23 14:30 DCW (Rec: 07/23/23 15:16 DCW [id number]) OP-PT Subjective Patient Comments Patient Comments Had some increased muscle spasming during the night last night, admits it might be the worst it's ever been. Ordered his stander from [employer], expecting it in the next week or two. PT-OP-G Mobility & Gait Start: 03/08/22 17:00 Freq: Status: Active Protocol: Document 05/09/23 15:19 DCW (Rec: 05/09/23 15:48 DCW [id number]) OP Mobility Evaluation Transfers Bed to Chair Transfers Transfers using UE, improved with side-side movement Car Transfers uses slide board, stabilizes front to back and prevent slide down board Wheelchair Management Type of Wheelchair Manual w/c PT-OP-H Neuro Start: 03/08/22 17:00 Freq: Status: Active Protocol: Document 05/09/23 15:19 DCW (Rec: 05/09/23 15:48 DCW [id number]) Sensation Evaluation Gross Sensation Gross Sensation Left LE Impaired,Right LE Impaired,Trunk Impaired Sensation Description Paresthesia,Numbness,Tingling, Pins & [place],Burning Dermatome Impairments L1,L2,L3,L4,L5,S1,S2,S3,S4-5 Location Details Right Leg Light Touch Impaired Sharp/Dull Impaired Deep Pressure Intact/Normal Hot/Cold Absent Protective Sensation Absent Proprioception (Position) Impaired Kinesthesia (Movement) Impaired Two-Point Discrimination Impaired Tactile Localization Impaired Stereognosis Impaired Left Leg Light Touch Absent Sharp/Dull Absent Deep Pressure Absent Hot/Cold Impaired Protective Sensation Absent Proprioception (Position) Absent Kinesthesia (Movement) Impaired Two-Point Discrimination Absent Tactile Localization Absent Stereognosis Absent Comments Summary Comments R deep pressure present in thigh and calf, not into foot and toes. R protective reflex vs sharp present Deep Tendon Reflex & Clonus Assessment Deep Tendon Reflex Right Achilles Deep Tendon Reflex 1+ Diminished Right Patellar Deep Tendon Reflex 2+ Normal Left Achilles Deep Tendon Reflex 1+ Diminished Left Patellar Deep Tendon Reflex 1+ Diminished Muscle Tone Tone Assessment Right Lower Extremity Flexor Tone Description Moderate Hypertonicity Extensor Tone Description Moderate Hypertonicity Left Lower Extremity Flexor Tone Description Moderate Hypertonicity Extensor Tone Description Moderate Hypertonicity PT-OP-J Posture/Palpation/Skin Start: 03/08/22 17:00 Freq: Status: Active Protocol: Document 05/09/23 15:19 DCW (Rec: 05/09/23 15:48 DCW [id number]) Posture Evaluation Comments Posture Comments Sitting EOB with good core control and no instability. Recovers from most directional pushing. Improved ability to reach outside of base of support. PT-OP-M Strength Start: 08/21/22 15:38 Freq: Status: Active Protocol: Document 05/09/23 15:19 DCW (Rec: 05/09/23 15:48 DCW [id number]) Hip Strength Hip Manual Muscle Testing Right Extension (S1) 2- Poor- Adduction 2- Poor- Left Extension (S1) 2- Poor- Adduction 1 Trace Knee Strength Knee Manual Muscle Testing Right Flexion (S2) 1 Trace Extension (L3) 1 Trace Left Flexion (S2) 1 Trace Extension (L3) 1 Trace Ankle/Foot Strength Ankle and Foot Manual Muscle Testing Right Plantarflexion (S1) 2- Poor- Left Plantarflexion (S1) 1 Trace PT-OP-Q Treatments Start: 03/08/22 17:00 Freq: Status: Active Protocol: Document 07/25/23 15:20 DCW (Rec: 07/25/23 16:00 DCW [id number]) Cardio Equipment Recumbent Elliptical (Biodex) Duration (Minutes) 10 Resistance 9 Seat Position 10 Other w/c<->biodex w/ dysem CG/min A Therapeutic Activity Therapeutic Activity sit to stander Name Long 1st hole strap and longest lrg looped strap both on lower hook Reps/Minutes 1 stand 30 min Comments in //bars. one pause for low back ascending, Weight shift lateral and AP, reaching and cross body reaching. Patient ed pre gait of lateral and fwd weight shift. PT-OP-T Assessment and Plan Start: 03/08/22 17:00 Freq: Status: Active Protocol: Document 07/25/23 15:20 DCW (Rec: 07/25/23 16:00 DCW [id number]) Physical Therapy Assessment Impairments Impairments Activity Tolerance,Balance, Coordination,Functional Activities,Functional Mobility ,Gait,Integument,Sensation, Soft Tissue Mobility,Strength, Tone,Transfers Goals Three Impairment Pt does not have any motor function throughout bilateral LEs Short Term Goal (STG) Pt to demonstrate 1/5 trace motor contraction in at least one quad in order to begin focus on LE mobility if neural functional return begins. STG Duration Met Manager Dairy Goal (LTG) Pt to demonstrate right quad strength to at least 2/5, demonstrating movement into ROM in an antigravity position LTG Duration 08/07/23 - improving Two Impairment Pt struggles with lateral transfer/scooting along EOB Intermediate Goal (LTG) Pt to perform lateral scoot transfer using proper technique without any verbal cues 4x in a row. LTG Duration 08/07/23 One Impairment Pt does not have an appropriate home exercise program Short Term Goal (STG) Pt to be independent and compliant with an appropriate HEP 07/30/22: progressing: resisted tricep ext, OH raises in w/c, supine HABD, added scaption OH B #2. STG Duration 04/15/23 Progressing Assessment Summary Assessment Continues to respond well to stander, improving with reach to target while in stander. Continue to focus on balance, core stabilization, standing tolerance, and functional mobility. Physical Therapy Plan Frequency and Duration Frequency of Treatment 2x/Week Plan of Care Start Date 05/09/23 Plan of Care End Date 08/07/23 Therapeutic Interventions Therapeutic Interventions Aquatic Therapy,Balance Training,Coordination Training ,Gait Training,Home Exercise Program,Manual Therapy, Neuromuscular Re-education, Orthotic/Prosthetic Management ,Patient/Caregiver Education, Self-Care/Home Management, Sensory Integration,Soft Tissue Mobilization, Therapeutic Activities, Therapeutic Exercises, Wheelchair Management Next Visit Focus/Plan Next Note Type Treatment Note Next Visit Plan *Longest loop/straps for stander to support posterior pelvic support both on lower vinyl hanger bar hook. *Leg press next POC:Alternate Shuttle recovery and sit/stander. Continue UE and core strengthening, LE PROM and manual stretching. Transfers, mobility, LE ROM, pt will benefit from continued breakdown of transfers to improve efficiency and mechanics, as well as working on more seated balance EOB.
--- NOTE | 2023-08-01 16:04 | PT.OTN ---
Current Diagnoses Paraplegia, unspecified (08/01/23) Other specified personal risk factors, not elsewhere classified (08/01/23) Other specified postprocedural states (08/01/23) Physical Therapy Treatment Note PT-OP-A Visit Information Start: 03/08/22 17:00 Freq: Status: Active Protocol: Document 08/01/23 15:15 DCW (Rec: 08/01/23 16:04 DCW [id number]) Out-Patient Physical Therapy Visit Information Visit Information Visit Type Treatment Note Visit Start Time 15:15 Visit Stop Time 16:00 Visit Number [id number] Number of QUANTITATIVE EQUITY HEAD Visits 0 Evaluation Information Evaluation Date 03/08/22 PT-OP-B Current Condition Start: 03/08/22 17:00 Freq: Status: Active Protocol: Document 03/08/22 11:15 DCW (Rec: 03/08/22 17:11 DCW [id number]) Current Condition History of Current Condition Onset Date 12/16/21 Current Complaints Paraplegia History of Current Condition Pt is a 71 year old male with a very unfortunate medical history. Pt was hiking [place] on 12/16/21 with a friend, finished up, drive back to his friend's home to drop him off, and noticed his left leg was collapsing. By the time pt drove home, both legs were giving out and numb. Pt was suddenly paralized from the waist down, was taken to the ED, and was flown to [facility] on 12/17/21. The following day, he underwent a laminectomy to relieve pressure from the thoracic epidural hematoma which had developed following his hike, which was pressing on his spinal cord. Following surgery , pt was in recovery for a week and was then transfered to rehab for 20 days, when he was finally discharged home in a wheelchair on 01/19/22. Pt reports his surgeon informed him that it is a possibility that he gets some return of nerve function. Has experienced some changes in his right LE, but has no motor function at this time from ~ T10 down. Minimal sensory return on right side, none on left. Pt has been anxious to get in to therapy and do everything he can to help return to function. Pt's , who attended his evaluation, notes that she has been doing a lot of PROM in his legs at night to keep everything moving. Pt can feel some stretching during PROM in his right leg. Pt has additionally already started occupational therapy, and has been practicing some seated stabilization. Pt transfers with a slide board, but notes it is difficult to do into his car, because he has to transfer upward at an incline. Treatment Goals Patient/Caregiver Goals I will do anything possible to get out of this wheelchair. My neurologist told me he has seen people recover from this , so I am not giving up hope. PT-OP-C Subjective Start: 03/08/22 17:00 Freq: Status: Active Protocol: Document 08/01/23 15:15 DCW (Rec: 08/01/23 16:04 DCW [id number]) OP-PT Subjective Patient Comments Patient Comments I might be deluding myself, but I firmly believe I'm going to [place] again. PT-OP-G Mobility & Gait Start: 03/08/22 17:00 Freq: Status: Active Protocol: Document 08/01/23 15:15 DCW (Rec: 08/01/23 15:37 DCW [id number]) OP Mobility Evaluation Transfers Bed to Chair Transfers Transfers using UE, improved with side-side movement Car Transfers uses slide board, stabilizes front to back and prevent slide down board Wheelchair Management Type of Wheelchair Manual w/c PT-OP-H Neuro Start: 03/08/22 17:00 Freq: Status: Active Protocol: Document 08/01/23 15:15 DCW (Rec: 08/01/23 15:37 DCW [id number]) Sensation Evaluation Gross Sensation Gross Sensation Left LE Impaired,Right LE Impaired,Trunk Impaired Sensation Description Paresthesia,Numbness,Tingling, Pins & [place],Burning Dermatome Impairments L1,L2,L3,L4,L5,S1,S2,S3,S4-5 Location Details Right Leg Light Touch Impaired Sharp/Dull Impaired Deep Pressure Intact/Normal Hot/Cold Absent Protective Sensation Absent Proprioception (Position) Impaired Kinesthesia (Movement) Impaired Two-Point Discrimination Impaired Tactile Localization Impaired Stereognosis Impaired Left Leg Light Touch Absent Sharp/Dull Absent Deep Pressure Impaired Hot/Cold Impaired Protective Sensation Absent Proprioception (Position) Absent Kinesthesia (Movement) Impaired Two-Point Discrimination Absent Tactile Localization Absent Stereognosis Absent Comments Summary Comments B protective reflex vs sharp present Deep Tendon Reflex & Clonus Assessment Deep Tendon Reflex Right Achilles Deep Tendon Reflex 1+ Diminished Right Patellar Deep Tendon Reflex 2+ Normal Left Achilles Deep Tendon Reflex 1+ Diminished Left Patellar Deep Tendon Reflex 1+ Diminished Muscle Tone Tone Assessment Right Lower Extremity Flexor Tone Description Moderate Hypertonicity Extensor Tone Description Moderate Hypertonicity Left Lower Extremity Flexor Tone Description Moderate Hypertonicity Extensor Tone Description Moderate Hypertonicity PT-OP-J Posture/Palpation/Skin Start: 03/08/22 17:00 Freq: Status: Active Protocol: Document 08/01/23 15:15 DCW (Rec: 08/01/23 15:37 DCW [id number]) Posture Evaluation Comments Posture Comments Sitting EOB with good core control and no instability. Recovers from most directional pushing. Improved ability to reach outside of base of support. PT-OP-M Strength Start: 08/21/22 15:38 Freq: Status: Active Protocol: Document 08/01/23 15:15 DCW (Rec: 08/01/23 15:37 DCW [id number]) Hip Strength Hip Manual Muscle Testing Right Extension (S1) 2- Poor- Adduction 2- Poor- Left Extension (S1) 2- Poor- Adduction 1 Trace Knee Strength Knee Manual Muscle Testing Right Flexion (S2) 1 Trace Extension (L3) 1 Trace Left Flexion (S2) 1 Trace Extension (L3) 1 Trace Ankle/Foot Strength Ankle and Foot Manual Muscle Testing Right Plantarflexion (S1) 2- Poor- Left Plantarflexion (S1) 1 Trace PT-OP-Q Treatments Start: 03/08/22 17:00 Freq: Status: Active Protocol: Document 08/01/23 15:15 DCW (Rec: 08/01/23 16:04 DCW [id number]) Neuro Re-Education Treatment Balance Activities Seated balance Details SBA/CGA, occasional Min>mod A for LOB Equipment seated EOB on black plinth Comments AP mvmt w/ dowel (2#) in BUE to hit balloon from PT Aide- chest height>shoulder height, vc for upright sitting posture . Derrek>modA balloon volleyball Details PT provided SBA/Min A PRN, PT Aide balloon volley Surface 2# wrist wts Equipment black mat table, balloon, dowel gait belt Comments 1. seated Edge of black mat table, feet on floor, SBA 2. free sitting, self wt shift outside KIARA reaching, LOB retro x2 cues Mod/Max A recover, UE contact LOB flexion. Maintained trunk midline f/b/lateral 25% time with cues for slower pacing chest press. PT-OP-T Assessment and Plan Start: 03/08/22 17:00 Freq: Status: Active Protocol: Document 08/01/23 15:15 DCW (Rec: 08/01/23 16:04 DCW [id number]) Physical Therapy Assessment Impairments Impairments Activity Tolerance,Balance, Coordination,Functional Activities,Functional Mobility ,Gait,Integument,Sensation, Soft Tissue Mobility,Strength, Tone,Transfers Goals Three Impairment Pt does not have any motor function throughout bilateral LEs Short Term Goal (STG) Pt to demonstrate 1/5 trace motor contraction in at least one quad in order to begin focus on LE mobility if neural functional return begins. STG Duration Met Signals Collector/Analyst Goal (LTG) Pt to demonstrate right quad strength to at least 2/5, demonstrating movement into ROM in an antigravity position LTG Duration 10/30/23 Two Impairment Pt struggles with lateral transfer/scooting along EOB Signals Collector/Analyst Goal (LTG) Pt to perform lateral scoot transfer using proper technique without any verbal cues 4x in a row. LTG Duration 10/30/23 One Impairment Pt does not have an appropriate home exercise program Short Term Goal (STG) Pt to be independent and compliant with an appropriate HEP 07/30/22: progressing: resisted tricep ext, OH raises in w/c, supine HABD, added scaption OH B #2. STG Duration 09/29/23 Assessment Summary Assessment Pt showing some very minimal changes in left sensation, during prior testing, pt did not have any protective reflexive withdraw from sharp sensation, however this was present today. Improving with transfers and seated balance, although not much change in motor function and response throughout B LEs. Pt is expecting delivery of home stander, which should be greatly beneficial for pt to increase time in an upright posture out of chair, hopefully this change with result in overall improvement in sensory and motor function in LEs. Continue to work on functional mobility, LE function, core strength, seated balance, and transfers. Physical Therapy Plan Frequency and Duration Frequency of Treatment 2x/Week Plan of Care Start Date 08/01/23 Plan of Care End Date 10/30/23 Therapeutic Interventions Therapeutic Interventions Aquatic Therapy,Balance Training,Coordination Training ,Gait Training,Home Exercise Program,Manual Therapy, Neuromuscular Re-education, Orthotic/Prosthetic Management ,Patient/Caregiver Education, Self-Care/Home Management, Sensory Integration,Soft Tissue Mobilization, Therapeutic Activities, Therapeutic Exercises, Wheelchair Management Next Visit Focus/Plan Next Note Type Treatment Note Next Visit Plan *Longest loop/straps for stander to support posterior pelvic support both on lower hanger off bar hook. *Leg press next POC:Alternate Shuttle recovery and sit/stander. Continue UE and core strengthening, LE PROM and manual stretching. Transfers, mobility, LE ROM, pt will benefit from continued breakdown of transfers to improve efficiency and mechanics, as well as working on more seated balance EOB.
--- NOTE | 2023-08-01 16:04 | PT.OPPOC ---
Physical, Occupational & Speech Therapy At [facility] Current Diagnoses Paraplegia, unspecified (08/01/23) Other specified personal risk factors, not elsewhere classified (08/01/23) Other specified postprocedural states (08/01/23) Visit Care Team Role Provider Type Octavio Yates MD Family Provider Physician Primary Care Provider Specialty: Family Practice Address: [address] [place] [address], [address], [address] Email: [email or web address] Charleen Arias PA-C Attending Provider Advanced Erp Programmer Referring Provider Specialty: Medical Address: [address] [place] [address], [place] [address], [place], [address] Email: [email or web address] Plan Of Care PT-OP-T Assessment and Plan Start: 03/08/22 17:00 Freq: Status: Active Protocol: Document 08/01/23 15:15 DCW (Rec: 08/01/23 16:04 DCW [id number]) Physical Therapy Assessment Impairments Impairments Activity Tolerance,Balance, Coordination,Functional Activities,Functional Mobility ,Gait,Integument,Sensation, Soft Tissue Mobility,Strength, Tone,Transfers Goals Three Impairment Pt does not have any motor function throughout bilateral LEs Short Term Goal (STG) Pt to demonstrate 1/5 trace motor contraction in at least one quad in order to begin focus on LE mobility if neural functional return begins. STG Duration Met Retirement Goal (LTG) Pt to demonstrate right quad strength to at least 2/5, demonstrating movement into ROM in an antigravity position LTG Duration 10/30/23 Two Impairment Pt struggles with lateral transfer/scooting along EOB Retirement Goal (LTG) Pt to perform lateral scoot transfer using proper technique without any verbal cues 4x in a row. LTG Duration 10/30/23 One Impairment Pt does not have an appropriate home exercise program Short Term Goal (STG) Pt to be independent and compliant with an appropriate HEP 07/30/22: progressing: resisted tricep ext, OH raises in w/c, supine HABD, added scaption OH B #2. STG Duration 09/29/23 Assessment Summary Assessment Pt showing some very minimal changes in left sensation, during prior testing, pt did not have any protective reflexive withdraw from sharp sensation, however this was present today. Improving with transfers and seated balance, although not much change in motor function and response throughout B LEs. Pt is expecting delivery of home stander, which should be greatly beneficial for pt to increase time in an upright posture out of chair, hopefully this change with result in overall improvement in sensory and motor function in LEs. Continue to work on functional mobility, LE function, core strength, seated balance, and transfers. Physical Therapy Plan Frequency and Duration Frequency of Treatment 2x/Week Plan of Care Start Date 08/01/23 Plan of Care End Date 10/30/23 Therapeutic Interventions Therapeutic Interventions Aquatic Therapy,Balance Training,Coordination Training ,Gait Training,Home Exercise Program,Manual Therapy, Neuromuscular Re-education, Orthotic/Prosthetic Management ,Patient/Caregiver Education, Self-Care/Home Management, Sensory Integration,Soft Tissue Mobilization, Therapeutic Activities, Therapeutic Exercises, Wheelchair Management Next Visit Focus/Plan Next Note Type Treatment Note Next Visit Plan *Longest loop/straps for stander to support posterior pelvic support both on lower mold changer bar hook. *Leg press next POC:Alternate Shuttle recovery and sit/stander. Continue UE and core strengthening, LE PROM and manual stretching. Transfers, mobility, LE ROM, pt will benefit from continued breakdown of transfers to improve efficiency and mechanics, as well as working on more seated balance EOB. Plan of Care Dates Plan of Care Start Date 08/01/23 Plan of Care End Date 10/30/23 Electronically Signed by: Jean Ruggiero, PT 08/01/23 3439 If you are in agreement with this Plan of Care, please return a signed and dated copy. I have reviewed this Plan of Care and certify that the skilled therapy services above are required to meet the patient?s needs. Physician Signature Date Printed Name and Credentials Clinical Instructor Signature Printed Name and Credentials
--- NOTE | 2023-08-05 16:35 | PT.OTN ---
Current Diagnoses Paraplegia, unspecified (08/05/23) Other specified personal risk factors, not elsewhere classified (08/05/23) Other specified postprocedural states (08/05/23) Physical Therapy Treatment Note PT-OP-A Visit Information Start: 03/08/22 17:00 Freq: Status: Active Protocol: Document 08/05/23 13:58 NBM (Rec: 08/05/23 16:34 NBM [id number]) Out-Patient Physical Therapy Visit Information Visit Information Visit Type Treatment Note Visit Start Time 14:30 Visit Stop Time 15:16 Visit Number 125 Number of EXT JS DEVELOPER Visits 1 Evaluation Information Evaluation Date 03/08/22 PT-OP-B Current Condition Start: 03/08/22 17:00 Freq: Status: Active Protocol: Document 03/08/22 11:15 DCW (Rec: 03/08/22 17:11 DCW [id number]) Current Condition History of Current Condition Onset Date 12/16/21 Current Complaints Paraplegia History of Current Condition Pt is a 71 year old male with a very unfortunate medical history. Pt was hiking [place] on 12/16/21 with a friend, finished up, drive back to his friend's home to drop him off, and noticed his left leg was collapsing. By the time pt drove home, both legs were giving out and numb. Pt was suddenly paralized from the waist down, was taken to the ED, and was flown to [facility] on 12/17/21. The following day, he underwent a laminectomy to relieve pressure from the thoracic epidural hematoma which had developed following his hike, which was pressing on his spinal cord. Following surgery , pt was in recovery for a week and was then transfered to rehab for 20 days, when he was finally discharged home in a wheelchair on 01/19/22. Pt reports his surgeon informed him that it is a possibility that he gets some return of nerve function. Has experienced some changes in his right LE, but has no motor function at this time from ~ T10 down. Minimal sensory return on right side, none on left. Pt has been anxious to get in to therapy and do everything he can to help return to function. Pt's , who attended his evaluation, notes that she has been doing a lot of PROM in his legs at night to keep everything moving. Pt can feel some stretching during PROM in his right leg. Pt has additionally already started occupational therapy, and has been practicing some seated stabilization. Pt transfers with a slide board, but notes it is difficult to do into his car, because he has to transfer upward at an incline. Treatment Goals Patient/Caregiver Goals I will do anything possible to get out of this wheelchair. My neurologist told me he has seen people recover from this , so I am not giving up hope. PT-OP-C Subjective Start: 03/08/22 17:00 Freq: Status: Active Protocol: Document 08/05/23 13:58 NBM (Rec: 08/05/23 16:34 NBM [id number]) OP-PT Subjective Patient Comments Patient Comments Toby reports his stander gets delivered tomorrow morning. He was able to move the toes on his left foot and right without looking at them; he used to not be able to move them on his R at all. PT-OP-G Mobility & Gait Start: 03/08/22 17:00 Freq: Status: Active Protocol: Document 08/01/23 15:15 DCW (Rec: 08/01/23 15:37 DCW [id number]) OP Mobility Evaluation Transfers Bed to Chair Transfers Transfers using UE, improved with side-side movement Car Transfers uses slide board, stabilizes front to back and prevent slide down board Wheelchair Management Type of Wheelchair Manual w/c PT-OP-H Neuro Start: 03/08/22 17:00 Freq: Status: Active Protocol: Document 08/01/23 15:15 DCW (Rec: 08/01/23 15:37 DCW [id number]) Sensation Evaluation Gross Sensation Gross Sensation Left LE Impaired,Right LE Impaired,Trunk Impaired Sensation Description Paresthesia,Numbness,Tingling, Pins & [place],Burning Dermatome Impairments L1,L2,L3,L4,L5,S1,S2,S3,S4-5 Location Details Right Leg Light Touch Impaired Sharp/Dull Impaired Deep Pressure Intact/Normal Hot/Cold Absent Protective Sensation Absent Proprioception (Position) Impaired Kinesthesia (Movement) Impaired Two-Point Discrimination Impaired Tactile Localization Impaired Stereognosis Impaired Left Leg Light Touch Absent Sharp/Dull Absent Deep Pressure Impaired Hot/Cold Impaired Protective Sensation Absent Proprioception (Position) Absent Kinesthesia (Movement) Impaired Two-Point Discrimination Absent Tactile Localization Absent Stereognosis Absent Comments Summary Comments B protective reflex vs sharp present Deep Tendon Reflex & Clonus Assessment Deep Tendon Reflex Right Achilles Deep Tendon Reflex 1+ Diminished Right Patellar Deep Tendon Reflex 2+ Normal Left Achilles Deep Tendon Reflex 1+ Diminished Left Patellar Deep Tendon Reflex 1+ Diminished Muscle Tone Tone Assessment Right Lower Extremity Flexor Tone Description Moderate Hypertonicity Extensor Tone Description Moderate Hypertonicity Left Lower Extremity Flexor Tone Description Moderate Hypertonicity Extensor Tone Description Moderate Hypertonicity PT-OP-J Posture/Palpation/Skin Start: 03/08/22 17:00 Freq: Status: Active Protocol: Document 08/01/23 15:15 DCW (Rec: 08/01/23 15:37 DCW [id number]) Posture Evaluation Comments Posture Comments Sitting EOB with good core control and no instability. Recovers from most directional pushing. Improved ability to reach outside of base of support. PT-OP-M Strength Start: 08/21/22 15:38 Freq: Status: Active Protocol: Document 08/01/23 15:15 DCW (Rec: 08/01/23 15:37 DCW [id number]) Hip Strength Hip Manual Muscle Testing Right Extension (S1) 2- Poor- Adduction 2- Poor- Left Extension (S1) 2- Poor- Adduction 1 Trace Knee Strength Knee Manual Muscle Testing Right Flexion (S2) 1 Trace Extension (L3) 1 Trace Left Flexion (S2) 1 Trace Extension (L3) 1 Trace Ankle/Foot Strength Ankle and Foot Manual Muscle Testing Right Plantarflexion (S1) 2- Poor- Left Plantarflexion (S1) 1 Trace PT-OP-Q Treatments Start: 03/08/22 17:00 Freq: Status: Active Protocol: Document 08/05/23 13:58 NBM (Rec: 08/05/23 16:34 NBM [id number]) Cardio Equipment Recumbent Elliptical (Biodex) Duration (Minutes) 10 Resistance 9 Seat Position 10 Other w/c<->biodex w/ dysem CG/min A Therapeutic Activity Therapeutic Activity sit to stander Name Long 1st hole strap and longest lrg looped strap both on lower hook Reps/Minutes 1 stand 30 min Comments in //bars. one pause for RLE ascending, Weight shift lateral and AP, reaching. PT-OP-T Assessment and Plan Start: 03/08/22 17:00 Freq: Status: Active Protocol: Document 08/05/23 13:58 NBM (Rec: 08/05/23 16:34 [facility] [id number]) Physical Therapy Assessment Goals Three Impairment Pt does not have any motor function throughout bilateral LEs Short Term Goal (STG) Pt to demonstrate 1/5 trace motor contraction in at least one quad in order to begin focus on LE mobility if neural functional return begins. STG Duration Met Pit Hoist Operator Goal (LTG) Pt to demonstrate right quad strength to at least 2/5, demonstrating movement into ROM in an antigravity position LTG Duration 10/30/23 Two Impairment Pt struggles with lateral transfer/scooting along EOB Senior Care Goal (LTG) Pt to perform lateral scoot transfer using proper technique without any verbal cues 4x in a row. LTG Duration 10/30/23 One Impairment Pt does not have an appropriate home exercise program Short Term Goal (STG) Pt to be independent and compliant with an appropriate HEP 07/30/22: progressing: resisted tricep ext, OH raises in w/c, supine HABD, added scaption OH B #2. STG Duration 09/29/23 Assessment Summary Assessment Treatment focus on neural priming in recumbent elliptical and weightshifting in stander. Toby has one instance of increased LE tone B after lateral transfer w/c<> recumbent elliptical. Stander x2 to adjust straps from 2>1 long strap for increased ROM w / weightshifting; pt cued for increasing RLE weightshifting. Physical Therapy Plan Frequency and Duration Frequency of Treatment 2x/Week Plan of Care Start Date 08/01/23 Plan of Care End Date 10/30/23 Therapeutic Interventions Therapeutic Interventions Aquatic Therapy,Balance Training,Coordination Training ,Gait Training,Home Exercise Program,Manual Therapy, Neuromuscular Re-education, Orthotic/Prosthetic Management ,Patient/Caregiver Education, Self-Care/Home Management, Sensory Integration,Soft Tissue Mobilization, Therapeutic Activities, Therapeutic Exercises, Wheelchair Management Next Visit Focus/Plan Next Note Type Treatment Note Next Visit Plan *Longest loop/straps for stander to support posterior pelvic support both on lower bag hanger bar hook. *Leg press next POC:Alternate Shuttle recovery and sit/stander. Continue UE and core strengthening, LE PROM and manual stretching. Transfers, mobility, LE ROM, pt will benefit from continued breakdown of transfers to improve efficiency and mechanics, as well as working on more seated balance EOB.
--- NOTE | 2023-08-08 15:25 | PT.OTN ---
Current Diagnoses Paraplegia, unspecified (08/08/23) Other specified personal risk factors, not elsewhere classified (08/08/23) Other specified postprocedural states (08/08/23) Physical Therapy Treatment Note PT-OP-A Visit Information Start: 03/08/22 17:00 Freq: Status: Active Protocol: Document 08/08/23 14:38 NBM (Rec: 08/08/23 15:25 NBM [id number]) Out-Patient Physical Therapy Visit Information Visit Information Visit Type Treatment Note Visit Start Time 14:36 Visit Stop Time 15:20 Visit Number 126 Number of HEEL LIFT GOUGER Visits 2 PT-OP-B Current Condition Start: 03/08/22 17:00 Freq: Status: Active Protocol: Document 03/08/22 11:15 DCW (Rec: 03/08/22 17:11 DCW [id number]) Current Condition History of Current Condition Onset Date 12/16/21 Current Complaints Paraplegia History of Current Condition Pt is a 71 year old male with a very unfortunate medical history. Pt was hiking [place] on 12/16/21 with a friend, finished up, drive back to his friend's home to drop him off, and noticed his left leg was collapsing. By the time pt drove home, both legs were giving out and numb. Pt was suddenly paralized from the waist down, was taken to the ED, and was flown to [facility] on 12/17/21. The following day, he underwent a laminectomy to relieve pressure from the thoracic epidural hematoma which had developed following his hike, which was pressing on his spinal cord. Following surgery , pt was in recovery for a week and was then transfered to rehab for 20 days, when he was finally discharged home in a wheelchair on 01/19/22. Pt reports his surgeon informed him that it is a possibility that he gets some return of nerve function. Has experienced some changes in his right LE, but has no motor function at this time from ~ T10 down. Minimal sensory return on right side, none on left. Pt has been anxious to get in to therapy and do everything he can to help return to function. Pt's , who attended his evaluation, notes that she has been doing a lot of PROM in his legs at night to keep everything moving. Pt can feel some stretching during PROM in his right leg. Pt has additionally already started occupational therapy, and has been practicing some seated stabilization. Pt transfers with a slide board, but notes it is difficult to do into his car, because he has to transfer upward at an incline. Treatment Goals Patient/Caregiver Goals I will do anything possible to get out of this wheelchair. My neurologist told me he has seen people recover from this , so I am not giving up hope. PT-OP-C Subjective Start: 03/08/22 17:00 Freq: Status: Active Protocol: Document 08/08/23 14:38 NBM (Rec: 08/08/23 15:25 NBM [id number]) OP-PT Subjective Patient Comments Patient Comments Toby reports he got his stander and used it for an hour on Friday and afterwards could feel his back adjusting to it. He was busy yesterday but plans to use it again today. PT-OP-G Mobility & Gait Start: 03/08/22 17:00 Freq: Status: Active Protocol: Document 08/01/23 15:15 DCW (Rec: 08/01/23 15:37 DCW [id number]) OP Mobility Evaluation Transfers Bed to Chair Transfers Transfers using UE, improved with side-side movement Car Transfers uses slide board, stabilizes front to back and prevent slide down board Wheelchair Management Type of Wheelchair Manual w/c PT-OP-H Neuro Start: 03/08/22 17:00 Freq: Status: Active Protocol: Document 08/01/23 15:15 DCW (Rec: 08/01/23 15:37 DCW [id number]) Sensation Evaluation Gross Sensation Gross Sensation Left LE Impaired,Right LE Impaired,Trunk Impaired Sensation Description Paresthesia,Numbness,Tingling, [place],Burning Dermatome Impairments L1,L2,L3,L4,L5,S1,S2,S3,S4-5 Location Details Right Leg Light Touch Impaired Sharp/Dull Impaired Deep Pressure Intact/Normal Hot/Cold Absent Protective Sensation Absent Proprioception (Position) Impaired Kinesthesia (Movement) Impaired Two-Point Discrimination Impaired Tactile Localization Impaired Stereognosis Impaired Left Leg Light Touch Absent Sharp/Dull Absent Deep Pressure Impaired Hot/Cold Impaired Protective Sensation Absent Proprioception (Position) Absent Kinesthesia (Movement) Impaired Two-Point Discrimination Absent Tactile Localization Absent Stereognosis Absent Comments Summary Comments B protective reflex vs sharp present Deep Tendon Reflex & Clonus Assessment Deep Tendon Reflex Right Achilles Deep Tendon Reflex 1+ Diminished Right Patellar Deep Tendon Reflex 2+ Normal Left Achilles Deep Tendon Reflex 1+ Diminished Left Patellar Deep Tendon Reflex 1+ Diminished Muscle Tone Tone Assessment Right Lower Extremity Flexor Tone Description Moderate Hypertonicity Extensor Tone Description Moderate Hypertonicity Left Lower Extremity Flexor Tone Description Moderate Hypertonicity Extensor Tone Description Moderate Hypertonicity PT-OP-J Posture/Palpation/Skin Start: 03/08/22 17:00 Freq: Status: Active Protocol: Document 08/01/23 15:15 DCW (Rec: 08/01/23 15:37 DCW [id number]) Posture Evaluation Comments Posture Comments Sitting EOB with good core control and no instability. Recovers from most directional pushing. Improved ability to reach outside of base of support. PT-OP-M Strength Start: 08/21/22 15:38 Freq: Status: Active Protocol: Document 08/01/23 15:15 DCW (Rec: 08/01/23 15:37 DCW [id number]) Hip Strength Hip Manual Muscle Testing Right Extension (S1) 2- Poor- Adduction 2- Poor- Left Extension (S1) 2- Poor- Adduction 1 Trace Knee Strength Knee Manual Muscle Testing Right Flexion (S2) 1 Trace Extension (L3) 1 Trace Left Flexion (S2) 1 Trace Extension (L3) 1 Trace Ankle/Foot Strength Ankle and Foot Manual Muscle Testing Right Plantarflexion (S1) 2- Poor- Left Plantarflexion (S1) 1 Trace PT-OP-Q Treatments Start: 03/08/22 17:00 Freq: Status: Active Protocol: Document 08/08/23 14:38 NBM (Rec: 08/08/23 15:25 NBM [id number]) Cardio Equipment Recumbent Elliptical (Biodex) Duration (Minutes) 10 Resistance 9 Seat Position 10 Other w/c<->biodex w/ dysem CG/min A Therapeutic Exercises Sitting Exercises Flexion Sitting Exercise Name Shoulder Flexion Side bilateral Resistance Lv 1 Reps/Minutes x15 ea Comments in w/c facing away from anchor Shoulder Extension Sitting Exercise Name Extension Side bilateral Reps/Minutes 2x15 Comments in w/c, vc for eccentric control Rows Sitting Exercise Name seated in w/c Side bilateral Resistance TB #1 (anchored at wall) Reps/Minutes 2x10 Comments cue UT overactivation Manual Therapy Treatment Soft Tissue Mobilization Back Body Location B thoracic paraspinals Mobilization Type Strumming,Sustained Pressure Intensity/Depth Moderate Body Position Sitting Comments seated in w/c Neuro Re-Education Treatment Balance Activities balloon volleyball Details HEEL LIFT GOUGER provided CGA/Min A PRN, PT Aide balloon volley Equipment gerson, gait belt, in edge of w/c Reps/Duration 5' Comments occasionally cues for tall sitting posture. PT-OP-T Assessment and Plan Start: 03/08/22 17:00 Freq: Status: Active Protocol: Document 08/08/23 14:38 NB (Rec: 08/08/23 15:25 [facility] [id number]) Physical Therapy Assessment Goals Three Impairment Pt does not have any motor function throughout bilateral LEs Short Term Goal (STG) Pt to demonstrate 1/5 trace motor contraction in at least one quad in order to begin focus on LE mobility if neural functional return begins. STG Duration Met Skirt Maker Goal (LTG) Pt to demonstrate right quad strength to at least 2/5, demonstrating movement into ROM in an antigravity position LTG Duration 10/30/23 Two Impairment Pt struggles with lateral transfer/scooting along EOB Skirt Maker Goal (LTG) Pt to perform lateral scoot transfer using proper technique without any verbal cues 4x in a row. LTG Duration 10/30/23 One Impairment Pt does not have an appropriate home exercise program Short Term Goal (STG) Pt to be independent and compliant with an appropriate HEP 07/30/22: progressing: resisted tricep ext, OH raises in w/c, supine HABD, added scaption OH B #2. STG Duration 09/29/23 Assessment Summary Assessment Pt has home stander. Treatment focus on seated transfers and exercises w/ posture and core focus. Three instances of increased tone in RLE w/ seated transfers today. Pt requires cues for eccentric control w/ resisted ex's and scapular setting initially w/ good carryover. CGA>Derrek w/ balloon volleyball. Pt reports end of session the whole upper body stuff we just did feels so good on my whole back . Physical Therapy Plan Frequency and Duration Frequency of Treatment 2x/Week Plan of Care Start Date 08/01/23 Plan of Care End Date 10/30/23 Therapeutic Interventions Therapeutic Interventions Aquatic Therapy,Balance Training,Coordination Training ,Gait Training,Home Exercise Program,Manual Therapy, Neuromuscular Re-education, Orthotic/Prosthetic Management ,Patient/Caregiver Education, Self-Care/Home Management, Sensory Integration,Soft Tissue Mobilization, Therapeutic Activities, Therapeutic Exercises, Wheelchair Management Next Visit Focus/Plan Next Note Type Treatment Note Next Visit Plan *Longest loop/straps for stander to support posterior pelvic support both on lower loom changer bar hook. *Leg press next POC:Alternate Shuttle recovery and sit/stander. Continue UE and core strengthening, LE PROM and manual stretching. Transfers, mobility, LE ROM, pt will benefit from continued breakdown of transfers to improve efficiency and mechanics, as well as working on more seated balance EOB.
--- NOTE | 2023-08-11 16:46 | PT.OTN ---
Current Diagnoses Paraplegia, unspecified (08/11/23) Other specified personal risk factors, not elsewhere classified (08/11/23) Other specified postprocedural states (08/11/23) Physical Therapy Treatment Note PT-OP-A Visit Information Start: 03/08/22 17:00 Freq: Status: Active Protocol: Document 08/11/23 16:02 DCW (Rec: 08/11/23 16:46 DCW [id number]) Out-Patient Physical Therapy Visit Information Visit Information Visit Type Treatment Note Visit Start Time 16:02 Visit Stop Time 16:45 Visit Number 127 Number of TREASURY ACCOUNTANT Visits 0 Evaluation Information Evaluation Date 03/08/22 PT-OP-B Current Condition Start: 03/08/22 17:00 Freq: Status: Active Protocol: Document 03/08/22 11:15 DCW (Rec: 03/08/22 17:11 DCW [id number]) Current Condition History of Current Condition Onset Date 12/16/21 Current Complaints Paraplegia History of Current Condition Pt is a 71 year old male with a very unfortunate medical history. Pt was hiking [employer] on 12/16/21 with a friend, finished up, drive back to his friend's home to drop him off, and noticed his left leg was collapsing. By the time pt drove home, both legs were giving out and numb. Pt was suddenly paralized from the waist down, was taken to the ED, and was flown to [facility] on 12/17/21. The following day, he underwent a laminectomy to relieve pressure from the thoracic epidural hematoma which had developed following his hike, which was pressing on his spinal cord. Following surgery , pt was in recovery for a week and was then transfered to rehab for 20 days, when he was finally discharged home in a wheelchair on 01/19/22. Pt reports his surgeon informed him that it is a possibility that he gets some return of nerve function. Has experienced some changes in his right LE, but has no motor function at this time from ~ T10 down. Minimal sensory return on right side, none on left. Pt has been anxious to get in to therapy and do everything he can to help return to function. Pt's , who attended his evaluation, notes that she has been doing a lot of PROM in his legs at night to keep everything moving. Pt can feel some stretching during PROM in his right leg. Pt has additionally already started occupational therapy, and has been practicing some seated stabilization. Pt transfers with a slide board, but notes it is difficult to do into his car, because he has to transfer upward at an incline. Treatment Goals Patient/Caregiver Goals I will do anything possible to get out of this wheelchair. My neurologist told me he has seen people recover from this , so I am not giving up hope. PT-OP-C Subjective Start: 03/08/22 17:00 Freq: Status: Active Protocol: Document 08/11/23 16:02 DCW (Rec: 08/11/23 16:46 DCW [id number]) OP-PT Subjective Patient Comments Patient Comments Pt spent three hours in his stander yesterday. PT-OP-G Mobility & Gait Start: 03/08/22 17:00 Freq: Status: Active Protocol: Document 08/01/23 15:15 DCW (Rec: 08/01/23 15:37 DCW [id number]) OP Mobility Evaluation Transfers Bed to Chair Transfers Transfers using UE, improved with side-side movement Car Transfers uses slide board, stabilizes front to back and prevent slide down board Wheelchair Management Type of Wheelchair Manual w/c PT-OP-H Neuro Start: 03/08/22 17:00 Freq: Status: Active Protocol: Document 08/01/23 15:15 DCW (Rec: 08/01/23 15:37 DCW [id number]) Sensation Evaluation Gross Sensation Gross Sensation Left LE Impaired,Right LE Impaired,Trunk Impaired Sensation Description Paresthesia,Numbness,Tingling, Pins & [place],Burning Dermatome Impairments L1,L2,L3,L4,L5,S1,S2,S3,S4-5 Location Details Right Leg Light Touch Impaired Sharp/Dull Impaired Deep Pressure Intact/Normal Hot/Cold Absent Protective Sensation Absent Proprioception (Position) Impaired Kinesthesia (Movement) Impaired Two-Point Discrimination Impaired Tactile Localization Impaired Stereognosis Impaired Left Leg Light Touch Absent Sharp/Dull Absent Deep Pressure Impaired Hot/Cold Impaired Protective Sensation Absent Proprioception (Position) Absent Kinesthesia (Movement) Impaired Two-Point Discrimination Absent Tactile Localization Absent Stereognosis Absent Comments Summary Comments B protective reflex vs sharp present Deep Tendon Reflex & Clonus Assessment Deep Tendon Reflex Right Achilles Deep Tendon Reflex 1+ Diminished Right Patellar Deep Tendon Reflex 2+ Normal Left Achilles Deep Tendon Reflex 1+ Diminished Left Patellar Deep Tendon Reflex 1+ Diminished Muscle Tone Tone Assessment Right Lower Extremity Flexor Tone Description Moderate Hypertonicity Extensor Tone Description Moderate Hypertonicity Left Lower Extremity Flexor Tone Description Moderate Hypertonicity Extensor Tone Description Moderate Hypertonicity PT-OP-J Posture/Palpation/Skin Start: 03/08/22 17:00 Freq: Status: Active Protocol: Document 08/01/23 15:15 DCW (Rec: 08/01/23 15:37 DCW [id number]) Posture Evaluation Comments Posture Comments Sitting EOB with good core control and no instability. Recovers from most directional pushing. Improved ability to reach outside of base of support. PT-OP-M Strength Start: 08/21/22 15:38 Freq: Status: Active Protocol: Document 08/01/23 15:15 DCW (Rec: 08/01/23 15:37 DCW [id number]) Hip Strength Hip Manual Muscle Testing Right Extension (S1) 2- Poor- Adduction 2- Poor- Left Extension (S1) 2- Poor- Adduction 1 Trace Knee Strength Knee Manual Muscle Testing Right Flexion (S2) 1 Trace Extension (L3) 1 Trace Left Flexion (S2) 1 Trace Extension (L3) 1 Trace Ankle/Foot Strength Ankle and Foot Manual Muscle Testing Right Plantarflexion (S1) 2- Poor- Left Plantarflexion (S1) 1 Trace PT-OP-Q Treatments Start: 03/08/22 17:00 Freq: Status: Active Protocol: Document 08/11/23 16:02 DCW (Rec: 08/11/23 16:46 DCW [id number]) Cardio Equipment Recumbent Elliptical (Biodex) Duration (Minutes) 10 Resistance 9 Seat Position 10 Other w/c<->biodex w/ dysem CG/min A Gym Equipment Shuttle Recovery Bilateral Squats Details with BUE assist on thighs Resistance 25# assisted>12# unassisted w/ breath focus>25# assisted w/ breath focus Shuttle Recovery Platform Stable Reps/Time Slight movements when unassisted, assisted back-> eccentric lowering Therapeutic Ball Abdominal Curl Exercise Details Press ball into abdomen in supine Ball Size/Color Blue - 45 cm Neuro Re-Education Treatment Balance Activities balloon volleyball Details PT provided SBA/Min A Surface 2# wrist wts Equipment black mat table, balloon, dowel gait belt Comments 1. seated Edge of black mat table, feet on floor, SBA 2. free sitting, self wt shift outside KIARA reaching, LOB retro x2 cues Mod/Max A recover, UE contact LOB flexion. Maintained trunk midline f/b/lateral 25% time with cues for slower pacing chest press. PT-OP-T Assessment and Plan Start: 03/08/22 17:00 Freq: Status: Active Protocol: Document 08/11/23 16:02 DCW (Rec: 08/11/23 16:46 DCW [id number]) Physical Therapy Assessment Assessment Summary Assessment Good response to core workout today, noticing improved stability when in stander. Focus on seated balance, LE mobility, and strengthening Physical Therapy Plan Frequency and Duration Frequency of Treatment 2x/Week Plan of Care Start Date 08/01/23 Plan of Care End Date 10/30/23 Therapeutic Interventions Therapeutic Interventions Aquatic Therapy,Balance Training,Coordination Training ,Gait Training,Home Exercise Program,Manual Therapy, Neuromuscular Re-education, Orthotic/Prosthetic Management ,Patient/Caregiver Education, Self-Care/Home Management, Sensory Integration,Soft Tissue Mobilization, Therapeutic Activities, Therapeutic Exercises, Wheelchair Management Next Visit Focus/Plan Next Note Type Treatment Note Next Visit Plan POC: Continue UE and core strengthening, LE PROM and manual stretching. Transfers, mobility, LE ROM, pt will benefit from continued breakdown of transfers to improve efficiency and mechanics, as well as working on more seated balance EOB.
--- NOTE | 2023-08-13 17:42 | PT.OTN ---
Current Diagnoses Paraplegia, unspecified (08/13/23) Other specified personal risk factors, not elsewhere classified (08/13/23) Other specified postprocedural states (08/13/23) Physical Therapy Treatment Note PT-OP-A Visit Information Start: 03/08/22 17:00 Freq: Status: Active Protocol: Document 08/13/23 16:03 NBM (Rec: 08/13/23 17:41 NBM [id number]) Out-Patient Physical Therapy Visit Information Visit Information Visit Type Treatment Note Visit Start Time 16:02 Visit Stop Time 16:50 Visit Number 128 Number of GLOST TILE SORTER Visits 1 Evaluation Information Evaluation Date 03/08/22 PT-OP-B Current Condition Start: 03/08/22 17:00 Freq: Status: Active Protocol: Document 03/08/22 11:15 DCW (Rec: 03/08/22 17:11 DCW [id number]) Current Condition History of Current Condition Onset Date 12/16/21 Current Complaints Paraplegia History of Current Condition Pt is a 71 year old male with a very unfortunate medical history. Pt was hiking [employer] on 12/16/21 with a friend, finished up, drive back to his friend's home to drop him off, and noticed his left leg was collapsing. By the time pt drove home, both legs were giving out and numb. Pt was suddenly paralized from the waist down, was taken to the ED, and was flown to [facility] on 12/17/21. The following day, he underwent a laminectomy to relieve pressure from the thoracic epidural hematoma which had developed following his hike, which was pressing on his spinal cord. Following surgery , pt was in recovery for a week and was then transfered to rehab for 20 days, when he was finally discharged home in a wheelchair on 01/19/22. Pt reports his surgeon informed him that it is a possibility that he gets some return of nerve function. Has experienced some changes in his right LE, but has no motor function at this time from ~ T10 down. Minimal sensory return on right side, none on left. Pt has been anxious to get in to therapy and do everything he can to help return to function. Pt's , who attended his evaluation, notes that she has been doing a lot of PROM in his legs at night to keep everything moving. Pt can feel some stretching during PROM in his right leg. Pt has additionally already started occupational therapy, and has been practicing some seated stabilization. Pt transfers with a slide board, but notes it is difficult to do into his car, because he has to transfer upward at an incline. Treatment Goals Patient/Caregiver Goals I will do anything possible to get out of this wheelchair. My neurologist told me he has seen people recover from this , so I am not giving up hope. PT-OP-C Subjective Start: 03/08/22 17:00 Freq: Status: Active Protocol: Document 08/13/23 16:03 NBM (Rec: 08/13/23 17:41 NBM [id number]) OP-PT Subjective Patient Comments Patient Comments Pt was in stander for two hours last night and is realizing he can't use it every night or he will lose upper body strength because he 's too worn out to do both, so he's thinking to alternate nights. His two goals for time being are upper body strength and lose weight to help with goal of standing. He flings ball to dog for 45-60 min without using back of chair for support to work on balance and core. He does the thigh push to help him correct his posture throughout. PT-OP-G Mobility & Gait Start: 03/08/22 17:00 Freq: Status: Active Protocol: Document 08/01/23 15:15 DCW (Rec: 08/01/23 15:37 DCW [id number]) OP Mobility Evaluation Transfers Bed to Chair Transfers Transfers using UE, improved with side-side movement Car Transfers uses slide board, stabilizes front to back and prevent slide down board Wheelchair Management Type of Wheelchair Manual w/c PT-OP-H Neuro Start: 03/08/22 17:00 Freq: Status: Active Protocol: Document 08/01/23 15:15 DCW (Rec: 08/01/23 15:37 DCW [id number]) Sensation Evaluation Gross Sensation Gross Sensation Left LE Impaired,Right LE Impaired,Trunk Impaired Sensation Description Paresthesia,Numbness,Tingling, Pins & [place],Burning Dermatome Impairments L1,L2,L3,L4,L5,S1,S2,S3,S4-5 Location Details Right Leg Light Touch Impaired Sharp/Dull Impaired Deep Pressure Intact/Normal Hot/Cold Absent Protective Sensation Absent Proprioception (Position) Impaired Kinesthesia (Movement) Impaired Two-Point Discrimination Impaired Tactile Localization Impaired Stereognosis Impaired Left Leg Light Touch Absent Sharp/Dull Absent Deep Pressure Impaired Hot/Cold Impaired Protective Sensation Absent Proprioception (Position) Absent Kinesthesia (Movement) Impaired Two-Point Discrimination Absent Tactile Localization Absent Stereognosis Absent Comments Summary Comments B protective reflex vs sharp present Deep Tendon Reflex & Clonus Assessment Deep Tendon Reflex Right Achilles Deep Tendon Reflex 1+ Diminished Right Patellar Deep Tendon Reflex 2+ Normal Left Achilles Deep Tendon Reflex 1+ Diminished Left Patellar Deep Tendon Reflex 1+ Diminished Muscle Tone Tone Assessment Right Lower Extremity Flexor Tone Description Moderate Hypertonicity Extensor Tone Description Moderate Hypertonicity Left Lower Extremity Flexor Tone Description Moderate Hypertonicity Extensor Tone Description Moderate Hypertonicity PT-OP-J Posture/Palpation/Skin Start: 03/08/22 17:00 Freq: Status: Active Protocol: Document 08/01/23 15:15 DCW (Rec: 08/01/23 15:37 DCW [id number]) Posture Evaluation Comments Posture Comments Sitting EOB with good core control and no instability. Recovers from most directional pushing. Improved ability to reach outside of base of support. PT-OP-M Strength Start: 08/21/22 15:38 Freq: Status: Active Protocol: Document 08/01/23 15:15 DCW (Rec: 08/01/23 15:37 DCW [id number]) Hip Strength Hip Manual Muscle Testing Right Extension (S1) 2- Poor- Adduction 2- Poor- Left Extension (S1) 2- Poor- Adduction 1 Trace Knee Strength Knee Manual Muscle Testing Right Flexion (S2) 1 Trace Extension (L3) 1 Trace Left Flexion (S2) 1 Trace Extension (L3) 1 Trace Ankle/Foot Strength Ankle and Foot Manual Muscle Testing Right Plantarflexion (S1) 2- Poor- Left Plantarflexion (S1) 1 Trace PT-OP-Q Treatments Start: 03/08/22 17:00 Freq: Status: Active Protocol: Document 08/13/23 16:03 NBM (Rec: 08/13/23 17:41 NBM [id number]) Cardio Equipment Recumbent Elliptical (Biodex) Duration (Minutes) 10 Resistance 9>10 Seat Position 10 Other w/c<->biodex w/ dysem CG/min A Therapeutic Exercises Sitting Exercises resisted trunk rotation Sitting Exercise Name seated in w/c away from back support Side bilateral Resistance Lvl 1 Tb held close to chest Reps/Minutes x10 ea Comments GLOST TILE SORTER providing overpressure at shoulder, R>L tightness Abduction Sitting Exercise Name Shoulder Abduction w/ posture focus Side bilateral Resistance Lv 1 Tb Reps/Minutes x10 ea Comments cues for eccentric control and form Flexion Sitting Exercise Name Shoulder Flexion w/ posture focus Side bilateral Resistance Lv 1 Tb Reps/Minutes x10 ea Comments in w/c facing away from anchor Shoulder Extension Sitting Exercise Name Extension w/ posture focus Side bilateral Equipment Used Lvl 1 Tb>Lvl 2 Reps/Minutes 2x15 Comments in w/c, vc for eccentric control and breath Rows Sitting Exercise Name seated in w/c w/ posture focus Side bilateral Resistance TB #1 Tb>Lvl 2 Reps/Minutes x10 ea Comments cue UT overactivation and breath Therapeutic Activity Therapeutic Activity squat/lateral scoot transfer Comments 1. w/c<>biodex CGA/Min A Self-Care/Home Management Treatment Education Patient Education Home Exercise Program,Posture Other Education Discussion w/ pt re: HEP and use of stander. Pt to alternate stander and UE strengthening and identifies personal short term goals of upper body strength and losing weight to help with computer terminal operator goal of standing. PT-OP-T Assessment and Plan Start: 03/08/22 17:00 Freq: Status: Active Protocol: Document 08/13/23 16:03 [facility] (Rec: 08/13/23 17:41 [facility] [id number]) Physical Therapy Assessment Goals Three Impairment Pt does not have any motor function throughout bilateral LEs Short Term Goal (STG) Pt to demonstrate 1/5 trace motor contraction in at least one quad in order to begin focus on LE mobility if neural functional return begins. STG Duration Met Straight Pin Making Machine Operator Goal (LTG) Pt to demonstrate right quad strength to at least 2/5, demonstrating movement into ROM in an antigravity position LTG Duration 10/30/23 Two Impairment Pt struggles with lateral transfer/scooting along EOB Longterm Goal (LTG) Pt to perform lateral scoot transfer using proper technique without any verbal cues 4x in a row. LTG Duration 10/30/23 One Impairment Pt does not have an appropriate home exercise program Short Term Goal (STG) Pt to be independent and compliant with an appropriate HEP 07/30/22: progressing: resisted tricep ext, OH raises in w/c, supine HABD, added scaption OH B #2. STG Duration 09/29/23 Assessment Summary Assessment Treatment focus on seated transfers and UE resisted ex's w/ focus on core and posture. Pt requires cues for breathwork and eccentric control with improved self- awareness and positive feedback response. Smoother lateral transfers today w/ reminder to pt for positioning feet direction prior to transfer. Physical Therapy Plan Frequency and Duration Frequency of Treatment 2x/Week Plan of Care Start Date 08/01/23 Plan of Care End Date 10/30/23 Therapeutic Interventions Therapeutic Interventions Aquatic Therapy,Balance Training,Coordination Training ,Gait Training,Home Exercise Program,Manual Therapy, Neuromuscular Re-education, Orthotic/Prosthetic Management ,Patient/Caregiver Education, Self-Care/Home Management, Sensory Integration,Soft Tissue Mobilization, Therapeutic Activities, Therapeutic Exercises, Wheelchair Management Next Visit Focus/Plan Next Note Type Treatment Note Next Visit Plan Consider seated Paloff punch. POC: Continue UE and core strengthening, LE PROM and manual stretching. Transfers, mobility, LE ROM, pt will benefit from continued breakdown of transfers to improve efficiency and mechanics, as well as working on more seated balance EOB.
--- NOTE | 2023-08-20 17:46 | PT.OTN ---
Current Diagnoses Paraplegia, unspecified (08/20/23) Other specified personal risk factors, not elsewhere classified (08/20/23) Other specified postprocedural states (08/20/23) Physical Therapy Treatment Note PT-OP-A Visit Information Start: 03/08/22 17:00 Freq: Status: Active Protocol: Document 08/20/23 16:36 NBM (Rec: 08/20/23 17:46 NBM [id number]) Out-Patient Physical Therapy Visit Information Visit Information Visit Type Treatment Note Visit Start Time 16:05 Visit Stop Time 16:45 Visit Number [id number] Number of FITNESS MANAGEMENT DIRECTOR Visits 2 Evaluation Information Evaluation Date 03/08/22 PT-OP-B Current Condition Start: 03/08/22 17:00 Freq: Status: Active Protocol: Document 03/08/22 11:15 DCW (Rec: 03/08/22 17:11 DCW [id number]) Current Condition History of Current Condition Onset Date 12/16/21 Current Complaints Paraplegia History of Current Condition Pt is a 71 year old male with a very unfortunate medical history. Pt was hiking for; to (do) on 12/16/21 with a friend, finished up, drive back to his friend's home to drop him off, and noticed his left leg was collapsing. By the time pt drove home, both legs were giving out and numb. Pt was suddenly paralized from the waist down, was taken to the ED, and was flown to [facility] on 12/17/21. The following day, he underwent a laminectomy to relieve pressure from the thoracic epidural hematoma which had developed following his hike, which was pressing on his spinal cord. Following surgery , pt was in recovery for a week and was then transfered to rehab for 20 days, when he was finally discharged home in a wheelchair on 01/19/22. Pt reports his surgeon informed him that it is a possibility that he gets some return of nerve function. Has experienced some changes in his right LE, but has no motor function at this time from ~ T10 down. Minimal sensory return on right side, none on left. Pt has been anxious to get in to therapy and do everything he can to help return to function. Pt's , who attended his evaluation, notes that she has been doing a lot of PROM in his legs at night to keep everything moving. Pt can feel some stretching during PROM in his right leg. Pt has additionally already started occupational therapy, and has been practicing some seated stabilization. Pt transfers with a slide board, but notes it is difficult to do into his car, because he has to transfer upward at an incline. Treatment Goals Patient/Caregiver Goals I will do anything possible to get out of this wheelchair. My neurologist told me he has seen people recover from this , so I am not giving up hope. PT-OP-C Subjective Start: 03/08/22 17:00 Freq: Status: Active Protocol: Document 08/20/23 16:36 NBM (Rec: 08/20/23 17:46 NBM [id number]) OP-PT Subjective Patient Comments Patient Comments Pt reports he has been alternating stander with upper body activities and plans to get in stander tonight. Upper body stuff at PT feels marvelous. PT-OP-G Mobility & Gait Start: 03/08/22 17:00 Freq: Status: Active Protocol: Document 08/01/23 15:15 DCW (Rec: 08/01/23 15:37 DCW [id number]) OP Mobility Evaluation Transfers Bed to Chair Transfers Transfers using UE, improved with side-side movement Car Transfers uses slide board, stabilizes front to back and prevent slide down board Wheelchair Management Type of Wheelchair Manual w/c PT-OP-H Neuro Start: 03/08/22 17:00 Freq: Status: Active Protocol: Document 08/01/23 15:15 DCW (Rec: 08/01/23 15:37 DCW [id number]) Sensation Evaluation Gross Sensation Gross Sensation Left LE Impaired,Right LE Impaired,Trunk Impaired Sensation Description Paresthesia,Numbness,Tingling, Pins & Elliott,Burning Dermatome Impairments L1,L2,L3,L4,L5,S1,S2,S3,S4-5 Location Details Right Leg Light Touch Impaired Sharp/Dull Impaired Deep Pressure Intact/Normal Hot/Cold Absent Protective Sensation Absent Proprioception (Position) Impaired Kinesthesia (Movement) Impaired Two-Point Discrimination Impaired Tactile Localization Impaired Stereognosis Impaired Left Leg Light Touch Absent Sharp/Dull Absent Deep Pressure Impaired Hot/Cold Impaired Protective Sensation Absent Proprioception (Position) Absent Kinesthesia (Movement) Impaired Two-Point Discrimination Absent Tactile Localization Absent Stereognosis Absent Comments Summary Comments B protective reflex vs sharp present Deep Tendon Reflex & Clonus Assessment Deep Tendon Reflex Right Achilles Deep Tendon Reflex 1+ Diminished Right Patellar Deep Tendon Reflex 2+ Normal Left Achilles Deep Tendon Reflex 1+ Diminished Left Patellar Deep Tendon Reflex 1+ Diminished Muscle Tone Tone Assessment Right Lower Extremity Flexor Tone Description Moderate Hypertonicity Extensor Tone Description Moderate Hypertonicity Left Lower Extremity Flexor Tone Description Moderate Hypertonicity Extensor Tone Description Moderate Hypertonicity PT-OP-J Posture/Palpation/Skin Start: 03/08/22 17:00 Freq: Status: Active Protocol: Document 08/01/23 15:15 DCW (Rec: 08/01/23 15:37 DCW [id number]) Posture Evaluation Comments Posture Comments Sitting EOB with good core control and no instability. Recovers from most directional pushing. Improved ability to reach outside of base of support. PT-OP-M Strength Start: 08/21/22 15:38 Freq: Status: Active Protocol: Document 08/01/23 15:15 DCW (Rec: 08/01/23 15:37 DCW [id number]) Hip Strength Hip Manual Muscle Testing Right Extension (S1) 2- Poor- Adduction 2- Poor- Left Extension (S1) 2- Poor- Adduction 1 Trace Knee Strength Knee Manual Muscle Testing Right Flexion (S2) 1 Trace Extension (L3) 1 Trace Left Flexion (S2) 1 Trace Extension (L3) 1 Trace Ankle/Foot Strength Ankle and Foot Manual Muscle Testing Right Plantarflexion (S1) 2- Poor- Left Plantarflexion (S1) 1 Trace PT-OP-Q Treatments Start: 03/08/22 17:00 Freq: Status: Active Protocol: Document 08/20/23 16:36 NBM (Rec: 08/20/23 17:46 NBM [id number]) Therapeutic Exercises Sitting Exercises Shoulder IR Sitting Exercise Name resisted 90/90, Tb anchored at wall behind w/c Side bilateral Resistance Lvl 1 tb Equipment Used FITNESS MANAGEMENT DIRECTOR supporting elbow at 90/90, small blue dynadisc under feet Comments initial cues for form DL isometric press Sitting Exercise Name core and breathwork focus Equipment Used small blue dynadisc under BLEs Reps/Minutes 3 x 5 SH Triceps Extension Sitting Exercise Name Seated overhead Triceps extension Side bilateral Resistance Lv 1 Equipment Used small blue dynadisc under feet Comments T-band anchored at wall Chest Press Sitting Exercise Name Seated Chest Press Side bilateral Resistance Lvl 1>Lvl 2 Tb Shoulder Extension Sitting Exercise Name Extension w/ posture focus Side bilateral Equipment Used Lvl 1 Tb>Lvl 2, small blue dynadisc under feet Comments in w/c, vc for eccentric control and breath Rows Sitting Exercise Name seated in w/c w/ posture focus Side bilateral Resistance TB #1 Tb>Lvl 2 Equipment Used small blue dynadisc under feet Manual Therapy Treatment Soft Tissue Mobilization Back Body Location R>L thoracic paraspinals Mobilization Type Rolling,Strumming,Sustained Pressure Intensity/Depth Moderate Body Position Sitting Comments seated in w/c, also during resisted shoulder rows/ext PT-OP-T Assessment and Plan Start: 03/08/22 17:00 Freq: Status: Active Protocol: Document 08/20/23 16:36 [facility] (Rec: 08/20/23 17:46 [facility] [id number]) Physical Therapy Assessment Goals Three Impairment Pt does not have any motor function throughout bilateral LEs Short Term Goal (STG) Pt to demonstrate 1/5 trace motor contraction in at least one quad in order to begin focus on LE mobility if neural functional return begins. STG Duration Met Manufacturing Technician Goal (LTG) Pt to demonstrate right quad strength to at least 2/5, demonstrating movement into ROM in an antigravity position LTG Duration 10/30/23 Two Impairment Pt struggles with lateral transfer/scooting along EOB Manufacturing Technician Goal (LTG) Pt to perform lateral scoot transfer using proper technique without any verbal cues 4x in a row. LTG Duration 10/30/23 One Impairment Pt does not have an appropriate home exercise program Short Term Goal (STG) Pt to be independent and compliant with an appropriate HEP 07/30/22: progressing: resisted tricep ext, OH raises in w/c, supine HABD, added scaption OH B #2. STG Duration 09/29/23 Assessment Summary Assessment Treatment focus on resisted upper extremity exercises with posture and core emphasis. Toby requires consistent cues for eccentric control w/ fatigue and occasional cues for breathwork. He demonstrates good self- awareness for uprighting posture as needed. Palpable tension to thoracic paraspinals R>L today and improves with STM and has positive feedback response. Physical Therapy Plan Frequency and Duration Frequency of Treatment 2x/Week Plan of Care Start Date 08/01/23 Plan of Care End Date 10/30/23 Therapeutic Interventions Therapeutic Interventions Aquatic Therapy,Balance Training,Coordination Training ,Gait Training,Home Exercise Program,Manual Therapy, Neuromuscular Re-education, Orthotic/Prosthetic Management ,Patient/Caregiver Education, Self-Care/Home Management, Sensory Integration,Soft Tissue Mobilization, Therapeutic Activities, Therapeutic Exercises, Wheelchair Management Next Visit Focus/Plan Next Note Type Treatment Note Next Visit Plan Consider seated Paloff punch. POC: Continue UE and core strengthening, LE PROM and manual stretching. Transfers, mobility, LE ROM, pt will benefit from continued breakdown of transfers to improve efficiency and mechanics, as well as working on more seated balance EOB.
--- NOTE | 2023-08-22 16:49 | PT.OTN ---
Current Diagnoses Paraplegia, unspecified (08/22/23) Other specified personal risk factors, not elsewhere classified (08/22/23) Other specified postprocedural states (08/22/23) Physical Therapy Treatment Note PT-OP-A Visit Information Start: 03/08/22 17:00 Freq: Status: Active Protocol: Document 08/22/23 16:01 DCW (Rec: 08/22/23 16:49 DCW [id number]) Out-Patient Physical Therapy Visit Information Visit Information Visit Type Treatment Note Visit Start Time 16:01 Visit Stop Time 16:45 Visit Number 130 Number of POCKET BUILDER Visits 0 Evaluation Information Evaluation Date 03/08/22 PT-OP-B Current Condition Start: 03/08/22 17:00 Freq: Status: Active Protocol: Document 03/08/22 11:15 DCW (Rec: 03/08/22 17:11 DCW [id number]) Current Condition History of Current Condition Onset Date 12/16/21 Current Complaints Paraplegia History of Current Condition Pt is a 71 year old male with a very unfortunate medical history. Pt was hiking [employer] [place] on 12/16/21 with a friend, finished up, drive back to his friend's home to drop him off, and noticed his left leg was collapsing. By the time pt drove home, both legs were giving out and numb. Pt was suddenly paralized from the waist down, was taken to the ED, and was flown to [facility] on 12/17/21. The following day, he underwent a laminectomy to relieve pressure from the thoracic epidural hematoma which had developed following his hike, which was pressing on his spinal cord. Following surgery , pt was in recovery for a week and was then transfered to rehab for 20 days, when he was finally discharged home in a wheelchair on 01/19/22. Pt reports his surgeon informed him that it is a possibility that he gets some return of nerve function. Has experienced some changes in his right LE, but has no motor function at this time from ~ T10 down. Minimal sensory return on right side, none on left. Pt has been anxious to get in to therapy and do everything he can to help return to function. Pt's , who attended his evaluation, notes that she has been doing a lot of PROM in his legs at night to keep everything moving. Pt can feel some stretching during PROM in his right leg. Pt has additionally already started occupational therapy, and has been practicing some seated stabilization. Pt transfers with a slide board, but notes it is difficult to do into his car, because he has to transfer upward at an incline. Treatment Goals Patient/Caregiver Goals I will do anything possible to get out of this wheelchair. My neurologist told me he has seen people recover from this , so I am not giving up hope. PT-OP-C Subjective Start: 03/08/22 17:00 Freq: Status: Active Protocol: Document 08/22/23 16:01 DCW (Rec: 08/22/23 16:49 DCW [id number]) OP-PT Subjective Patient Comments Patient Comments Pt reports his right leg is feeling quite a bit different since spending increased time in his stander. PT-OP-G Mobility & Gait Start: 03/08/22 17:00 Freq: Status: Active Protocol: Document 08/01/23 15:15 DCW (Rec: 08/01/23 15:37 DCW [id number]) OP Mobility Evaluation Transfers Bed to Chair Transfers Transfers using UE, improved with side-side movement Car Transfers uses slide board, stabilizes front to back and prevent slide down board Wheelchair Management Type of Wheelchair Manual w/c PT-OP-H Neuro Start: 03/08/22 17:00 Freq: Status: Active Protocol: Document 08/01/23 15:15 DCW (Rec: 08/01/23 15:37 DCW [id number]) Sensation Evaluation Gross Sensation Gross Sensation Left LE Impaired,Right LE Impaired,Trunk Impaired Sensation Description Paresthesia,Numbness,Tingling, Pins & Hamlin,Burning Dermatome Impairments L1,L2,L3,L4,L5,S1,S2,S3,S4-5 Location Details Right Leg Light Touch Impaired Sharp/Dull Impaired Deep Pressure Intact/Normal Hot/Cold Absent Protective Sensation Absent Proprioception (Position) Impaired Kinesthesia (Movement) Impaired Two-Point Discrimination Impaired Tactile Localization Impaired Stereognosis Impaired Left Leg Light Touch Absent Sharp/Dull Absent Deep Pressure Impaired Hot/Cold Impaired Protective Sensation Absent Proprioception (Position) Absent Kinesthesia (Movement) Impaired Two-Point Discrimination Absent Tactile Localization Absent Stereognosis Absent Comments Summary Comments B protective reflex vs sharp present Deep Tendon Reflex & Clonus Assessment Deep Tendon Reflex Right Achilles Deep Tendon Reflex 1+ Diminished Right Patellar Deep Tendon Reflex 2+ Normal Left Achilles Deep Tendon Reflex 1+ Diminished Left Patellar Deep Tendon Reflex 1+ Diminished Muscle Tone Tone Assessment Right Lower Extremity Flexor Tone Description Moderate Hypertonicity Extensor Tone Description Moderate Hypertonicity Left Lower Extremity Flexor Tone Description Moderate Hypertonicity Extensor Tone Description Moderate Hypertonicity PT-OP-J Posture/Palpation/Skin Start: 03/08/22 17:00 Freq: Status: Active Protocol: Document 08/01/23 15:15 DCW (Rec: 08/01/23 15:37 DCW [id number]) Posture Evaluation Comments Posture Comments Sitting EOB with good core control and no instability. Recovers from most directional pushing. Improved ability to reach outside of base of support. PT-OP-M Strength Start: 08/21/22 15:38 Freq: Status: Active Protocol: Document 08/01/23 15:15 DCW (Rec: 08/01/23 15:37 DCW [id number]) Hip Strength Hip Manual Muscle Testing Right Extension (S1) 2- Poor- Adduction 2- Poor- Left Extension (S1) 2- Poor- Adduction 1 Trace Knee Strength Knee Manual Muscle Testing Right Flexion (S2) 1 Trace Extension (L3) 1 Trace Left Flexion (S2) 1 Trace Extension (L3) 1 Trace Ankle/Foot Strength Ankle and Foot Manual Muscle Testing Right Plantarflexion (S1) 2- Poor- Left Plantarflexion (S1) 1 Trace PT-OP-Q Treatments Start: 03/08/22 17:00 Freq: Status: Active Protocol: Document 08/22/23 16:01 DCW (Rec: 08/22/23 16:49 DCW [id number]) Cardio Equipment Recumbent Elliptical (Biodex) Duration (Minutes) 10 Resistance 10 Seat Position 10 Other w/c<->biodex w/ dysem CG/min A Gym Equipment Shuttle Recovery Bilateral Squats Details with BUE assist on thighs Resistance 25# assisted>12# unassisted w/ breath focus>25# assisted w/ breath focus Shuttle Recovery Platform Stable Reps/Time Slight movements when unassisted, assisted back-> eccentric lowering Neuro Re-Education Treatment Balance Activities Seated balance Details SBA/CGA, occasional Min>mod A for LOB Equipment seated EOB on black plinth Comments AP mvmt w/ dowel (2#) in BUE to reach for cone targets balloon volleyball Details Balloon Volley with PVC Surface 2# Equipment black mat table, balloon, dowel gait belt Comments 1. seated Edge of black mat table, feet on floor, SBA 2. free sitting, self wt shift outside KIARA reaching, LOB retro x2 cues Mod/Max A recover, UE contact LOB flexion. Maintained trunk midline f/b/lateral 25% time with cues for slower pacing chest press. PT-OP-T Assessment and Plan Start: 03/08/22 17:00 Freq: Status: Active Protocol: Document 08/22/23 16:01 DCW (Rec: 08/22/23 16:49 DCW [id number]) Physical Therapy Assessment Goals Three Impairment Pt does not have any motor function throughout bilateral LEs Short Term Goal (STG) Pt to demonstrate 1/5 trace motor contraction in at least one quad in order to begin focus on LE mobility if neural functional return begins. STG Duration Met Mcc Goal (LTG) Pt to demonstrate right quad strength to at least 2/5, demonstrating movement into ROM in an antigravity position LTG Duration 10/30/23 Two Impairment Pt struggles with lateral transfer/scooting along EOB Tongue And Quarter Stitcher Goal (LTG) Pt to perform lateral scoot transfer using proper technique without any verbal cues 4x in a row. LTG Duration 10/30/23 One Impairment Pt does not have an appropriate home exercise program Short Term Goal (STG) Pt to be independent and compliant with an appropriate HEP 07/30/22: progressing: resisted tricep ext, OH raises in w/c, supine HABD, added scaption OH B #2. STG Duration 09/29/23 Assessment Summary Assessment Continuing focus on LE mobility, strengthening, and core exercises/seated balance challenges. Good response to activity. Physical Therapy Plan Frequency and Duration Frequency of Treatment 2x/Week Plan of Care Start Date 08/01/23 Plan of Care End Date 10/30/23 Therapeutic Interventions Therapeutic Interventions Aquatic Therapy,Balance Training,Coordination Training ,Gait Training,Home Exercise Program,Manual Therapy, Neuromuscular Re-education, Orthotic/Prosthetic Management ,Patient/Caregiver Education, Self-Care/Home Management, Sensory Integration,Soft Tissue Mobilization, Therapeutic Activities, Therapeutic Exercises, Wheelchair Management Next Visit Focus/Plan Next Note Type Treatment Note Next Visit Plan Consider seated Paloff punch. POC: Continue UE and core strengthening, LE PROM and manual stretching. Transfers, mobility, LE ROM, pt will benefit from continued breakdown of transfers to improve efficiency and mechanics, as well as working on more seated balance EOB.
--- NOTE | 2023-09-01 16:47 | PT.OTN ---
Current Diagnoses Paraplegia, unspecified (09/01/23) Other specified personal risk factors, not elsewhere classified (09/01/23) Other specified postprocedural states (09/01/23) Physical Therapy Treatment Note PT-OP-A Visit Information Start: 03/08/22 17:00 Freq: Status: Active Protocol: Document 09/01/23 16:02 DCW (Rec: 09/01/23 16:47 DCW [id number]) Out-Patient Physical Therapy Visit Information Visit Information Visit Type Treatment Note Visit Start Time 16:02 Visit Stop Time 16:45 Visit Number 133 Number of CITY SUPERVISOR Visits 0 Evaluation Information Evaluation Date 03/08/22 PT-OP-B Current Condition Start: 03/08/22 17:00 Freq: Status: Active Protocol: Document 03/08/22 11:15 DCW (Rec: 03/08/22 17:11 DCW [id number]) Current Condition History of Current Condition Onset Date 12/16/21 Current Complaints Paraplegia History of Current Condition Pt is a 71 year old male with a very unfortunate medical history. Pt was [place] 12[place]21 with a friend, finished up, drive back to his friend's home to drop him off, and noticed his left leg was collapsing. By the time pt drove home, both legs were giving out and numb. Pt was suddenly paralized from the waist down, was taken to the ED, and was flown to [facility] on 12/17/21. The following day, he underwent a laminectomy to relieve pressure from the thoracic epidural hematoma which had developed following his hike, which was pressing on his spinal cord. Following surgery , pt was in recovery for a week and was then transfered to rehab for 20 days, when he was finally discharged home in a wheelchair on 01/19/22. Pt reports his surgeon informed him that it is a possibility that he gets some return of nerve function. Has experienced some changes in his right LE, but has no motor function at this time from ~ T10 down. Minimal sensory return on right side, none on left. Pt has been anxious to get in to therapy and do everything he can to help return to function. Pt's , who attended his evaluation, notes that she has been doing a lot of PROM in his legs at night to keep everything moving. Pt can feel some stretching during PROM in his right leg. Pt has additionally already started occupational therapy, and has been practicing some seated stabilization. Pt transfers with a slide board, but notes it is difficult to do into his car, because he has to transfer upward at an incline. Treatment Goals Patient/Caregiver Goals I will do anything possible to get out of this wheelchair. My neurologist told me he has seen people recover from this , so I am not giving up hope. PT-OP-C Subjective Start: 03/08/22 17:00 Freq: Status: Active Protocol: Document 09/01/23 16:02 DCW (Rec: 09/01/23 16:47 DCW [id number]) OP-PT Subjective Patient Comments Patient Comments For a Friday, not doing too bad. PT-OP-G Mobility & Gait Start: 03/08/22 17:00 Freq: Status: Active Protocol: Document 08/01/23 15:15 DCW (Rec: 08/01/23 15:37 DCW [id number]) OP Mobility Evaluation Transfers Bed to Chair Transfers Transfers using UE, improved with side-side movement Car Transfers uses slide board, stabilizes front to back and prevent slide down board Wheelchair Management Type of Wheelchair Manual w/c PT-OP-H Neuro Start: 03/08/22 17:00 Freq: Status: Active Protocol: Document 08/01/23 15:15 DCW (Rec: 08/01/23 15:37 DCW [id number]) Sensation Evaluation Gross Sensation Gross Sensation Left LE Impaired,Right LE Impaired,Trunk Impaired Sensation Description Paresthesia,Numbness,Tingling, Pins & [place],Burning Dermatome Impairments L1,L2,L3,L4,L5,S1,S2,S3,S4-5 Location Details Right Leg Light Touch Impaired Sharp/Dull Impaired Deep Pressure Intact/Normal Hot/Cold Absent Protective Sensation Absent Proprioception (Position) Impaired Kinesthesia (Movement) Impaired Two-Point Discrimination Impaired Tactile Localization Impaired Stereognosis Impaired Left Leg Light Touch Absent Sharp/Dull Absent Deep Pressure Impaired Hot/Cold Impaired Protective Sensation Absent Proprioception (Position) Absent Kinesthesia (Movement) Impaired Two-Point Discrimination Absent Tactile Localization Absent Stereognosis Absent Comments Summary Comments B protective reflex vs sharp present Deep Tendon Reflex & Clonus Assessment Deep Tendon Reflex Right Achilles Deep Tendon Reflex 1+ Diminished Right Patellar Deep Tendon Reflex 2+ Normal Left Achilles Deep Tendon Reflex 1+ Diminished Left Patellar Deep Tendon Reflex 1+ Diminished Muscle Tone Tone Assessment Right Lower Extremity Flexor Tone Description Moderate Hypertonicity Extensor Tone Description Moderate Hypertonicity Left Lower Extremity Flexor Tone Description Moderate Hypertonicity Extensor Tone Description Moderate Hypertonicity PT-OP-J Posture/Palpation/Skin Start: 03/08/22 17:00 Freq: Status: Active Protocol: Document 08/01/23 15:15 DCW (Rec: 08/01/23 15:37 DCW [id number]) Posture Evaluation Comments Posture Comments Sitting EOB with good core control and no instability. Recovers from most directional pushing. Improved ability to reach outside of base of support. PT-OP-M Strength Start: 08/21/22 15:38 Freq: Status: Active Protocol: Document 08/01/23 15:15 DCW (Rec: 08/01/23 15:37 DCW [id number]) Hip Strength Hip Manual Muscle Testing Right Extension (S1) 2- Poor- Adduction 2- Poor- Left Extension (S1) 2- Poor- Adduction 1 Trace Knee Strength Knee Manual Muscle Testing Right Flexion (S2) 1 Trace Extension (L3) 1 Trace Left Flexion (S2) 1 Trace Extension (L3) 1 Trace Ankle/Foot Strength Ankle and Foot Manual Muscle Testing Right Plantarflexion (S1) 2- Poor- Left Plantarflexion (S1) 1 Trace PT-OP-Q Treatments Start: 03/08/22 17:00 Freq: Status: Active Protocol: Document 09/01/23 16:02 DCW (Rec: 09/01/23 16:47 DCW [id number]) Cardio Equipment Recumbent Elliptical (Biodex) Duration (Minutes) 10 Resistance 10 Seat Position 10 Other w/c<->biodex w/ dysem CG/min A Gym Equipment Shuttle Recovery Bilateral Squats Details with BUE assist on thighs Resistance 12# unassisted->25# assisted Shuttle Recovery Platform Stable Reps/Time Slight movements when unassisted, assisted back-> eccentric lowering Therapeutic Ball Abdominal Curl Exercise Details Press ball into abdomen in supine Ball Size/Color Blue - 45 cm LTR Exercise Details LTR Ball Size/Color Blue - 45 cm Comments Resisted rotations - lv 1 PT-OP-T Assessment and Plan Start: 03/08/22 17:00 Freq: Status: Active Protocol: Document 09/01/23 16:02 DCW (Rec: 09/01/23 16:47 [facility] [id number]) Physical Therapy Assessment Impairments Impairments Activity Tolerance,Balance, Coordination,Functional Activities,Functional Mobility ,Gait,Integument,Sensation, Soft Tissue Mobility,Strength, Tone,Transfers Goals Three Impairment Pt does not have any motor function throughout bilateral LEs Short Term Goal (STG) Pt to demonstrate 1/5 trace motor contraction in at least one quad in order to begin focus on LE mobility if neural functional return begins. STG Duration Met Computer Network And Systems Engineer Goal (LTG) Pt to demonstrate right quad strength to at least 2/5, demonstrating movement into ROM in an antigravity position LTG Duration 10/30/23 Two Impairment Pt struggles with lateral transfer/scooting along EOB Computer Network And Systems Engineer Goal (LTG) Pt to perform lateral scoot transfer using proper technique without any verbal cues 4x in a row. LTG Duration 10/30/23 One Impairment Pt does not have an appropriate home exercise program Short Term Goal (STG) Pt to be independent and compliant with an appropriate HEP 07/30/22: progressing: resisted tricep ext, OH raises in w/c, supine HABD, added scaption OH B #2. STG Duration 09/29/23 Assessment Summary Assessment Pt had very good response to core work today, did very well with resisted LTR, pt noted it should help him perform bed mobility at home. Continues to improve eccentric control on leg press. Physical Therapy Plan Frequency and Duration Frequency of Treatment 2x/Week Plan of Care Start Date 08/01/23 Plan of Care End Date 10/30/23 Therapeutic Interventions Therapeutic Interventions Aquatic Therapy,Balance Training,Coordination Training ,Gait Training,Home Exercise Program,Manual Therapy, Neuromuscular Re-education, Orthotic/Prosthetic Management ,Patient/Caregiver Education, Self-Care/Home Management, Sensory Integration,Soft Tissue Mobilization, Therapeutic Activities, Therapeutic Exercises, Wheelchair Management Next Visit Focus/Plan Next Note Type Treatment Note Next Visit Plan Consider seated Paloff punch. POC: Continue UE and core strengthening, LE PROM and manual stretching. Transfers, mobility, LE ROM, pt will benefit from continued breakdown of transfers to improve efficiency and mechanics, as well as working on more seated balance EOB.
--- NOTE | 2023-09-09 16:47 | PT.OTN ---
Current Diagnoses Paraplegia, unspecified (09/09/23) Other specified personal risk factors, not elsewhere classified (09/09/23) Other specified postprocedural states (09/09/23) Physical Therapy Treatment Note PT-OP-A Visit Information Start: 03/08/22 17:00 Freq: Status: Active Protocol: Document 09/09/23 14:34 NBM (Rec: 09/09/23 16:47 NBM [id number]) Out-Patient Physical Therapy Visit Information Visit Information Visit Type Treatment Note Visit Start Time 14:35 Visit Stop Time 15:26 Visit Number 135 Number of STAFF RADIOLOGIST Visits 2 Evaluation Information Evaluation Date 03/08/22 PT-OP-B Current Condition Start: 03/08/22 17:00 Freq: Status: Active Protocol: Document 03/08/22 11:15 DCW (Rec: 03/08/22 17:11 DCW [id number]) Current Condition History of Current Condition Onset Date 12/16/21 Current Complaints Paraplegia History of Current Condition Pt is a 71 year old male with a very unfortunate medical history. Pt was hiking [employer] on 12/16/21 with a friend, finished up, drive back to his friend's home to drop him off, and noticed his left leg was collapsing. By the time pt drove home, both legs were giving out and numb. Pt was suddenly paralized from the waist down, was taken to the ED, and was flown to [facility] on 12/17/21. The following day, he underwent a laminectomy to relieve pressure from the thoracic epidural hematoma which had developed following his hike, which was pressing on his spinal cord. Following surgery , pt was in recovery for a week and was then transfered to rehab for 20 days, when he was finally discharged home in a wheelchair on 01/19/22. Pt reports his surgeon informed him that it is a possibility that he gets some return of nerve function. Has experienced some changes in his right LE, but has no motor function at this time from ~ T10 down. Minimal sensory return on right side, none on left. Pt has been anxious to get in to therapy and do everything he can to help return to function. Pt's , who attended his evaluation, notes that she has been doing a lot of PROM in his legs at night to keep everything moving. Pt can feel some stretching during PROM in his right leg. Pt has additionally already started occupational therapy, and has been practicing some seated stabilization. Pt transfers with a slide board, but notes it is difficult to do into his car, because he has to transfer upward at an incline. Treatment Goals Patient/Caregiver Goals I will do anything possible to get out of this wheelchair. My neurologist told me he has seen people recover from this , so I am not giving up hope. PT-OP-C Subjective Start: 03/08/22 17:00 Freq: Status: Active Protocol: Document 09/09/23 14:34 NBM (Rec: 09/09/23 16:47 NBM [id number]) OP-PT Subjective Patient Comments Patient Comments Toby reports he hasn't used stander the past two days while daughter was visiting but has been focusing on his upper body. PT-OP-G Mobility & Gait Start: 03/08/22 17:00 Freq: Status: Active Protocol: Document 08/01/23 15:15 DCW (Rec: 08/01/23 15:37 DCW [id number]) OP Mobility Evaluation Transfers Bed to Chair Transfers Transfers using UE, improved with side-side movement Car Transfers uses slide board, stabilizes front to back and prevent slide down board Wheelchair Management Type of Wheelchair Manual w/c PT-OP-H Neuro Start: 03/08/22 17:00 Freq: Status: Active Protocol: Document 08/01/23 15:15 DCW (Rec: 08/01/23 15:37 DCW [id number]) Sensation Evaluation Gross Sensation Gross Sensation Left LE Impaired,Right LE Impaired,Trunk Impaired Sensation Description Paresthesia,Numbness,Tingling, Pins & [place],Burning Dermatome Impairments L1,L2,L3,L4,L5,S1,S2,S3,S4-5 Location Details Right Leg Light Touch Impaired Sharp/Dull Impaired Deep Pressure Intact/Normal Hot/Cold Absent Protective Sensation Absent Proprioception (Position) Impaired Kinesthesia (Movement) Impaired Two-Point Discrimination Impaired Tactile Localization Impaired Stereognosis Impaired Left Leg Light Touch Absent Sharp/Dull Absent Deep Pressure Impaired Hot/Cold Impaired Protective Sensation Absent Proprioception (Position) Absent Kinesthesia (Movement) Impaired Two-Point Discrimination Absent Tactile Localization Absent Stereognosis Absent Comments Summary Comments B protective reflex vs sharp present Deep Tendon Reflex & Clonus Assessment Deep Tendon Reflex Right Achilles Deep Tendon Reflex 1+ Diminished Right Patellar Deep Tendon Reflex 2+ Normal Left Achilles Deep Tendon Reflex 1+ Diminished Left Patellar Deep Tendon Reflex 1+ Diminished Muscle Tone Tone Assessment Right Lower Extremity Flexor Tone Description Moderate Hypertonicity Extensor Tone Description Moderate Hypertonicity Left Lower Extremity Flexor Tone Description Moderate Hypertonicity Extensor Tone Description Moderate Hypertonicity PT-OP-J Posture/Palpation/Skin Start: 03/08/22 17:00 Freq: Status: Active Protocol: Document 08/01/23 15:15 DCW (Rec: 08/01/23 15:37 DCW [id number]) Posture Evaluation Comments Posture Comments Sitting EOB with good core control and no instability. Recovers from most directional pushing. Improved ability to reach outside of base of support. PT-OP-M Strength Start: 08/21/22 15:38 Freq: Status: Active Protocol: Document 08/01/23 15:15 DCW (Rec: 08/01/23 15:37 DCW [id number]) Hip Strength Hip Manual Muscle Testing Right Extension (S1) 2- Poor- Adduction 2- Poor- Left Extension (S1) 2- Poor- Adduction 1 Trace Knee Strength Knee Manual Muscle Testing Right Flexion (S2) 1 Trace Extension (L3) 1 Trace Left Flexion (S2) 1 Trace Extension (L3) 1 Trace Ankle/Foot Strength Ankle and Foot Manual Muscle Testing Right Plantarflexion (S1) 2- Poor- Left Plantarflexion (S1) 1 Trace PT-OP-Q Treatments Start: 03/08/22 17:00 Freq: Status: Active Protocol: Document 09/09/23 14:34 NBM (Rec: 09/09/23 16:47 NBM [id number]) Cardio Equipment Recumbent Elliptical (Biodex) Duration (Minutes) 10 Resistance 9>10 at 8.5 min Seat Position 10 Other w/c<->biodex w/ dysem CG/min A Gym Equipment Shuttle Recovery Bilateral Squats Details 1.with BUE assist on thighs, exhale on exertion 2.pec stretch w/5# weights Resistance 12# unassisted->12# assisted> 25# assisted (teal) Shuttle Recovery Platform Stable Reps/Time Slight movements when unassisted, assisted back-> eccentric lowering Therapeutic Ball Abdominal Curl Exercise Details Press ball into abdomen in supine Ball Size/Color orange 55cm>Blue - 45 cm Body Position Hooklying Comments on Shuttle Recovery Therapeutic Exercises Supine Exercises fly Side bilateral Resistance 5# ea Equipment Used on Shuttle Recovery Reps/Minutes x10 PT-OP-T Assessment and Plan Start: 03/08/22 17:00 Freq: Status: Active Protocol: Document 09/09/23 14:34 NB (Rec: 09/09/23 16:47 [facility] [id number]) Physical Therapy Assessment Assessment Summary Assessment Treatment focus on LE and UE strengthening. Biodex used for neural priming, followed by Shuttle Recovery for LE strengthening and eccentric control with breath focus. Session ended with pec stretch w/ 5# DB bilaterally w cues for pain-free range, then supine shoulder fly w/ 5# B. Physical Therapy Plan Frequency and Duration Frequency of Treatment 2x/Week Plan of Care Start Date 08/01/23 Plan of Care End Date 10/30/23 Therapeutic Interventions Therapeutic Interventions Aquatic Therapy,Balance Training,Coordination Training ,Gait Training,Home Exercise Program,Manual Therapy, Neuromuscular Re-education, Orthotic/Prosthetic Management ,Patient/Caregiver Education, Self-Care/Home Management, Sensory Integration,Soft Tissue Mobilization, Therapeutic Activities, Therapeutic Exercises, Wheelchair Management Next Visit Focus/Plan Next Note Type Treatment Note Next Visit Plan Consider seated Paloff punch; quadruped, thoracic extension in supported quad. POC: Continue UE and core strengthening, LE PROM and manual stretching. Transfers, mobility, LE ROM, pt will benefit from continued breakdown of transfers to improve efficiency and mechanics, as well as working on more seated balance EOB.
--- NOTE | 2023-09-12 15:47 | PT.OTN ---
Current Diagnoses Paraplegia, unspecified (09/12/23) Other specified personal risk factors, not elsewhere classified (09/12/23) Other specified postprocedural states (09/12/23) Physical Therapy Treatment Note PT-OP-A Visit Information Start: 03/08/22 17:00 Freq: Status: Active Protocol: Document 09/12/23 14:00 NBM (Rec: 09/12/23 15:47 NBM [id number]) Out-Patient Physical Therapy Visit Information Visit Information Visit Type Treatment Note Visit Start Time 14:38 Visit Stop Time 15:25 Visit Number 136 Number of SHUTTLE FITTING SUPERVISOR Visits 3 Evaluation Information Evaluation Date 03/08/22 PT-OP-B Current Condition Start: 03/08/22 17:00 Freq: Status: Active Protocol: Document 03/08/22 11:15 DCW (Rec: 03/08/22 17:11 DCW [id number]) Current Condition History of Current Condition Onset Date 12/16/21 Current Complaints Paraplegia History of Current Condition Pt is a 71 year old male with a very unfortunate medical history. Pt was hiking [employer] on 12/16/21 with a friend, finished up, drive back to his friend's home to drop him off, and noticed his left leg was collapsing. By the time pt drove home, both legs were giving out and numb. Pt was suddenly paralized from the waist down, was taken to the ED, and was flown to [facility] on 12/17/21. The following day, he underwent a laminectomy to relieve pressure from the thoracic epidural hematoma which had developed following his hike, which was pressing on his spinal cord. Following surgery , pt was in recovery for a week and was then transfered to rehab for 20 days, when he was finally discharged home in a wheelchair on 01/19/22. Pt reports his surgeon informed him that it is a possibility that he gets some return of nerve function. Has experienced some changes in his right LE, but has no motor function at this time from ~ T10 down. Minimal sensory return on right side, none on left. Pt has been anxious to get in to therapy and do everything he can to help return to function. Pt's , who attended his evaluation, notes that she has been doing a lot of PROM in his legs at night to keep everything moving. Pt can feel some stretching during PROM in his right leg. Pt has additionally already started occupational therapy, and has been practicing some seated stabilization. Pt transfers with a slide board, but notes it is difficult to do into his car, because he has to transfer upward at an incline. Treatment Goals Patient/Caregiver Goals I will do anything possible to get out of this wheelchair. My neurologist told me he has seen people recover from this , so I am not giving up hope. PT-OP-C Subjective Start: 03/08/22 17:00 Freq: Status: Active Protocol: Document 09/12/23 14:00 NBM (Rec: 09/12/23 15:47 NBM [id number]) OP-PT Subjective Patient Comments Patient Comments Toby reports he wants to work on more core today because everything up and down is related to it. His feet felt cold when his window was open and the blanket came off his foot, and he was able to move his R foot side to side. PT-OP-G Mobility & Gait Start: 03/08/22 17:00 Freq: Status: Active Protocol: Document 08/01/23 15:15 DCW (Rec: 08/01/23 15:37 DCW [id number]) OP Mobility Evaluation Transfers Bed to Chair Transfers Transfers using UE, improved with side-side movement Car Transfers uses slide board, stabilizes front to back and prevent slide down board Wheelchair Management Type of Wheelchair Manual w/c PT-OP-H Neuro Start: 03/08/22 17:00 Freq: Status: Active Protocol: Document 08/01/23 15:15 DCW (Rec: 08/01/23 15:37 DCW [id number]) Sensation Evaluation Gross Sensation Gross Sensation Left LE Impaired,Right LE Impaired,Trunk Impaired Sensation Description Paresthesia,Numbness,Tingling, Pins & [place],Burning Dermatome Impairments L1,L2,L3,L4,L5,S1,S2,S3,S4-5 Location Details Right Leg Light Touch Impaired Sharp/Dull Impaired Deep Pressure Intact/Normal Hot/Cold Absent Protective Sensation Absent Proprioception (Position) Impaired Kinesthesia (Movement) Impaired Two-Point Discrimination Impaired Tactile Localization Impaired Stereognosis Impaired Left Leg Light Touch Absent Sharp/Dull Absent Deep Pressure Impaired Hot/Cold Impaired Protective Sensation Absent Proprioception (Position) Absent Kinesthesia (Movement) Impaired Two-Point Discrimination Absent Tactile Localization Absent Stereognosis Absent Comments Summary Comments B protective reflex vs sharp present Deep Tendon Reflex & Clonus Assessment Deep Tendon Reflex Right Achilles Deep Tendon Reflex 1+ Diminished Right Patellar Deep Tendon Reflex 2+ Normal Left Achilles Deep Tendon Reflex 1+ Diminished Left Patellar Deep Tendon Reflex 1+ Diminished Muscle Tone Tone Assessment Right Lower Extremity Flexor Tone Description Moderate Hypertonicity Extensor Tone Description Moderate Hypertonicity Left Lower Extremity Flexor Tone Description Moderate Hypertonicity Extensor Tone Description Moderate Hypertonicity PT-OP-J Posture/Palpation/Skin Start: 03/08/22 17:00 Freq: Status: Active Protocol: Document 08/01/23 15:15 DCW (Rec: 08/01/23 15:37 DCW [id number]) Posture Evaluation Comments Posture Comments Sitting EOB with good core control and no instability. Recovers from most directional pushing. Improved ability to reach outside of base of support. PT-OP-M Strength Start: 08/21/22 15:38 Freq: Status: Active Protocol: Document 08/01/23 15:15 DCW (Rec: 08/01/23 15:37 DCW [id number]) Hip Strength Hip Manual Muscle Testing Right Extension (S1) 2- Poor- Adduction 2- Poor- Left Extension (S1) 2- Poor- Adduction 1 Trace Knee Strength Knee Manual Muscle Testing Right Flexion (S2) 1 Trace Extension (L3) 1 Trace Left Flexion (S2) 1 Trace Extension (L3) 1 Trace Ankle/Foot Strength Ankle and Foot Manual Muscle Testing Right Plantarflexion (S1) 2- Poor- Left Plantarflexion (S1) 1 Trace PT-OP-Q Treatments Start: 03/08/22 17:00 Freq: Status: Active Protocol: Document 09/12/23 14:00 NBM (Rec: 09/12/23 15:47 NBM [id number]) Cardio Equipment Recumbent Elliptical (Biodex) Duration (Minutes) 8 Resistance 10 Seat Position 10 Other w/c<->biodex w/ dysem CG/min A Gym Equipment Therapeutic Ball LTR Exercise Details LTR - TrA and breath focus Ball Size/Color Blue - 45 cm Body Position semi-reclined + 2 pillows Reps/Duration x20 ea Comments 1. AROM x5 ea, x15 ea w/ end- range stretch 2. Resisted rotations - lv 1 x10 ea B Therapeutic Exercises Supine Exercises HS curl Supine Exercise Name 1. AROM attempted 2. manual PROM 3. manual end-range stretch 3 x60s Side bilateral Equipment Used semi-reclined on black wedge+2 pillows; 45cm blue physioball Comments positive feedback response. Hip Flexor Stretch Supine Exercise Name Hip Flexor Stretch (LE extension) Side bilateral Resistance semi-reclined on black wedge+2 pillows Equipment Used legs extended on 45cm physioball Reps/Minutes 5 min Comments 1. B resisted shoulder ER Lvl 1 Tb Self-Care/Home Management Treatment Education Patient Education Body Mechanics,Home Exercise Program,Safety Other Education -Pt to use 45cm physioball at home for manual LE flexion stretch w/ spouse. -Pt encouraged to note when moving R foot side to side if knee is also moving (hip IR/ER ) or only foot. PT-OP-T Assessment and Plan Start: 03/08/22 17:00 Freq: Status: Active Protocol: Document 09/12/23 14:00 NBM (Rec: 09/12/23 15:47 NBM [id number]) Physical Therapy Assessment Goals Three Impairment Pt does not have any motor function throughout bilateral LEs Short Term Goal (STG) Pt to demonstrate 1/5 trace motor contraction in at least one quad in order to begin focus on LE mobility if neural functional return begins. STG Duration Met Outpatient Psychiatrist Goal (LTG) Pt to demonstrate right quad strength to at least 2/5, demonstrating movement into ROM in an antigravity position LTG Duration 10/30/23 Two Impairment Pt struggles with lateral transfer/scooting along EOB [facility] Goal (LTG) Pt to perform lateral scoot transfer using proper technique without any verbal cues 4x in a row. LTG Duration 10/30/23 One Impairment Pt does not have an appropriate home exercise program Short Term Goal (STG) Pt to be independent and compliant with an appropriate HEP 07/30/22: progressing: resisted tricep ext, OH raises in w/c, supine HABD, added scaption OH B #2. STG Duration 09/29/23 Assessment Summary Assessment Treatment focus on transfers, core, and LE stretching. Elizabeth demonstrates improved transfer technique w/c<>black mat table w/ increased safety awareness moving each LE into alignment w/ feet closer to body before posterior weightshifting. LTR is performed over 45cm physioball w/ strap above knees for LE alignment: pt is cued for PPT, TrA and breath initially with improved performance and control with repetitions. HS curl over ball attempted but pt is unsuccessful, and reports positive feedback response to PROM LE flexion over ball w/ end-range stretch . Physical Therapy Plan Frequency and Duration Frequency of Treatment 2x/Week Plan of Care Start Date 08/01/23 Plan of Care End Date 10/30/23 Therapeutic Interventions Therapeutic Interventions Aquatic Therapy,Balance Training,Coordination Training ,Gait Training,Home Exercise Program,Manual Therapy, Neuromuscular Re-education, Orthotic/Prosthetic Management ,Patient/Caregiver Education, Self-Care/Home Management, Sensory Integration,Soft Tissue Mobilization, Therapeutic Activities, Therapeutic Exercises, Wheelchair Management Next Visit Focus/Plan Next Note Type Treatment Note Next Visit Plan Consider seated Paloff punch; quadruped, thoracic extension in supported quad. POC: Continue UE and core strengthening, LE PROM and manual stretching. Transfers, mobility, LE ROM, pt will benefit from continued breakdown of transfers to improve efficiency and mechanics, as well as working on more seated balance EOB.
--- NOTE | 2023-09-15 16:07 | PT.OTN ---
Current Diagnoses Paraplegia, unspecified (09/15/23) Other specified personal risk factors, not elsewhere classified (09/15/23) Other specified postprocedural states (09/15/23) Physical Therapy Treatment Note PT-OP-A Visit Information Start: 03/08/22 17:00 Freq: Status: Active Protocol: Document 09/15/23 15:18 DCW (Rec: 09/15/23 16:07 DCW [id number]) Out-Patient Physical Therapy Visit Information Visit Information Visit Type Treatment Note Visit Start Time 15:18 Visit Stop Time 16:00 Visit Number 137 Number of LITHARGE SUPERVISOR Visits 0 Evaluation Information Evaluation Date 03/08/22 PT-OP-B Current Condition Start: 03/08/22 17:00 Freq: Status: Active Protocol: Document 03/08/22 11:15 DCW (Rec: 03/08/22 17:11 DCW [id number]) Current Condition History of Current Condition Onset Date 12/16/21 Current Complaints Paraplegia History of Current Condition Pt is a 71 year old male with a very unfortunate medical history. Pt was hiking [employer] on 12/16/21 with a friend, finished up, drive back to his friend's home to drop him off, and noticed his left leg was collapsing. By the time pt drove home, both legs were giving out and numb. Pt was suddenly paralized from the waist down, was taken to the ED, and was flown to [facility] on 12/17/21. The following day, he underwent a laminectomy to relieve pressure from the thoracic epidural hematoma which had developed following his hike, which was pressing on his spinal cord. Following surgery , pt was in recovery for a week and was then transfered to rehab for 20 days, when he was finally discharged home in a wheelchair on 01/19/22. Pt reports his surgeon informed him that it is a possibility that he gets some return of nerve function. Has experienced some changes in his right LE, but has no motor function at this time from ~ T10 down. Minimal sensory return on right side, none on left. Pt has been anxious to get in to therapy and do everything he can to help return to function. Pt's , who attended his evaluation, notes that she has been doing a lot of PROM in his legs at night to keep everything moving. Pt can feel some stretching during PROM in his right leg. Pt has additionally already started occupational therapy, and has been practicing some seated stabilization. Pt transfers with a slide board, but notes it is difficult to do into his car, because he has to transfer upward at an incline. Treatment Goals Patient/Caregiver Goals I will do anything possible to get out of this wheelchair. My neurologist told me he has seen people recover from this , so I am not giving up hope. PT-OP-C Subjective Start: 03/08/22 17:00 Freq: Status: Active Protocol: Document 09/15/23 15:18 DCW (Rec: 09/15/23 16:07 DCW [id number]) OP-PT Subjective Patient Comments Patient Comments Pt notes his legs have been feeling really stiff. PT-OP-G Mobility & Gait Start: 03/08/22 17:00 Freq: Status: Active Protocol: Document 08/01/23 15:15 DCW (Rec: 08/01/23 15:37 DCW [id number]) OP Mobility Evaluation Transfers Bed to Chair Transfers Transfers using UE, improved with side-side movement Car Transfers uses slide board, stabilizes front to back and prevent slide down board Wheelchair Management Type of Wheelchair Manual w/c PT-OP-H Neuro Start: 03/08/22 17:00 Freq: Status: Active Protocol: Document 08/01/23 15:15 DCW (Rec: 08/01/23 15:37 DCW [id number]) Sensation Evaluation Gross Sensation Gross Sensation Left LE Impaired,Right LE Impaired,Trunk Impaired Sensation Description Paresthesia,Numbness,Tingling, Pins & [place],Burning Dermatome Impairments L1,L2,L3,L4,L5,S1,S2,S3,S4-5 Location Details Right Leg Light Touch Impaired Sharp/Dull Impaired Deep Pressure Intact/Normal Hot/Cold Absent Protective Sensation Absent Proprioception (Position) Impaired Kinesthesia (Movement) Impaired Two-Point Discrimination Impaired Tactile Localization Impaired Stereognosis Impaired Left Leg Light Touch Absent Sharp/Dull Absent Deep Pressure Impaired Hot/Cold Impaired Protective Sensation Absent Proprioception (Position) Absent Kinesthesia (Movement) Impaired Two-Point Discrimination Absent Tactile Localization Absent Stereognosis Absent Comments Summary Comments B protective reflex vs sharp present Deep Tendon Reflex & Clonus Assessment Deep Tendon Reflex Right Achilles Deep Tendon Reflex 1+ Diminished Right Patellar Deep Tendon Reflex 2+ Normal Left Achilles Deep Tendon Reflex 1+ Diminished Left Patellar Deep Tendon Reflex 1+ Diminished Muscle Tone Tone Assessment Right Lower Extremity Flexor Tone Description Moderate Hypertonicity Extensor Tone Description Moderate Hypertonicity Left Lower Extremity Flexor Tone Description Moderate Hypertonicity Extensor Tone Description Moderate Hypertonicity PT-OP-J Posture/Palpation/Skin Start: 03/08/22 17:00 Freq: Status: Active Protocol: Document 08/01/23 15:15 DCW (Rec: 08/01/23 15:37 DCW [id number]) Posture Evaluation Comments Posture Comments Sitting EOB with good core control and no instability. Recovers from most directional pushing. Improved ability to reach outside of base of support. PT-OP-M Strength Start: 08/21/22 15:38 Freq: Status: Active Protocol: Document 08/01/23 15:15 DCW (Rec: 08/01/23 15:37 DCW [id number]) Hip Strength Hip Manual Muscle Testing Right Extension (S1) 2- Poor- Adduction 2- Poor- Left Extension (S1) 2- Poor- Adduction 1 Trace Knee Strength Knee Manual Muscle Testing Right Flexion (S2) 1 Trace Extension (L3) 1 Trace Left Flexion (S2) 1 Trace Extension (L3) 1 Trace Ankle/Foot Strength Ankle and Foot Manual Muscle Testing Right Plantarflexion (S1) 2- Poor- Left Plantarflexion (S1) 1 Trace PT-OP-Q Treatments Start: 03/08/22 17:00 Freq: Status: Active Protocol: Document 09/15/23 15:18 DCW (Rec: 09/15/23 16:07 DCW [id number]) Cardio Equipment Recumbent Elliptical (Biodex) Duration (Minutes) 10 Resistance 10 Seat Position 10 Other w/c<->biodex w/ dysem CG/min A , pt partially places RLE. Gym Equipment Shuttle Recovery Bilateral Squats Details with BUE assist on thighs Resistance 12# unassisted->25# assisted Shuttle Recovery Platform Stable Reps/Time Slight movements when unassisted, assisted back-> eccentric lowering Therapeutic Ball Trunk Flexion/Extension Ball Size/Color Red - 55 cm Comments Fwd trunk bend to touch ball to floor, then lift ball up overhead Abdominal Curl Exercise Details Press ball into abdomen in supine Ball Size/Color Blue - 45 cm Body Position Hooklying LTR Exercise Details LTR Ball Size/Color Blue - 45 cm Comments Resisted rotations - lv 1 PT-OP-T Assessment and Plan Start: 03/08/22 17:00 Freq: Status: Active Protocol: Document 09/15/23 15:18 DCW (Rec: 09/15/23 16:07 DCW [id number]) Physical Therapy Assessment Impairments Impairments Activity Tolerance,Balance, Coordination,Functional Activities,Functional Mobility ,Gait,Integument,Sensation, Soft Tissue Mobility,Strength, Tone,Transfers Goals Three Impairment Pt does not have any motor function throughout bilateral LEs Short Term Goal (STG) Pt to demonstrate 1/5 trace motor contraction in at least one quad in order to begin focus on LE mobility if neural functional return begins. STG Duration Met Digital Editor Goal (LTG) Pt to demonstrate right quad strength to at least 2/5, demonstrating movement into ROM in an antigravity position LTG Duration 10/30/23 Two Impairment Pt struggles with lateral transfer/scooting along EOB Digital Editor Goal (LTG) Pt to perform lateral scoot transfer using proper technique without any verbal cues 4x in a row. LTG Duration 10/30/23 One Impairment Pt does not have an appropriate home exercise program Short Term Goal (STG) Pt to be independent and compliant with an appropriate HEP 07/30/22: progressing: resisted tricep ext, OH raises in w/c, supine HABD, added scaption OH B #2. STG Duration 09/29/23 Assessment Summary Assessment Additional work on core strengthening today, verbal cues for breathing technique. Continue to focus on transfers , LE strengthening, motor/ sensory return, and core. Physical Therapy Plan Frequency and Duration Frequency of Treatment 2x/Week Plan of Care Start Date 08/01/23 Plan of Care End Date 10/30/23 Therapeutic Interventions Therapeutic Interventions Aquatic Therapy,Balance Training,Coordination Training ,Gait Training,Home Exercise Program,Manual Therapy, Neuromuscular Re-education, Orthotic/Prosthetic Management ,Patient/Caregiver Education, Self-Care/Home Management, Sensory Integration,Soft Tissue Mobilization, Therapeutic Activities, Therapeutic Exercises, Wheelchair Management Next Visit Focus/Plan Next Note Type Treatment Note Next Visit Plan Consider seated Paloff punch; quadruped, thoracic extension in supported quad. POC: Continue UE and core strengthening, LE PROM and manual stretching. Transfers, mobility, LE ROM, pt will benefit from continued breakdown of transfers to improve efficiency and mechanics, as well as working on more seated balance EOB.
--- NOTE | 2023-09-17 18:20 | PT.OTN ---
Current Diagnoses Paraplegia, unspecified (09/17/23) Other specified personal risk factors, not elsewhere classified (09/17/23) Other specified postprocedural states (09/17/23) Physical Therapy Treatment Note PT-OP-A Visit Information Start: 03/08/22 17:00 Freq: Status: Active Protocol: Document 09/17/23 14:37 NBM (Rec: 09/17/23 16:03 NBM [id number]) Out-Patient Physical Therapy Visit Information Visit Information Visit Type Treatment Note Visit Start Time 14:40 Visit Stop Time 15:30 Visit Number 138 Number of CHARGE ACCOUNT IDENTIFICATION CLERK Visits 1 Evaluation Information Evaluation Date 03/08/22 PT-OP-B Current Condition Start: 03/08/22 17:00 Freq: Status: Active Protocol: Document 03/08/22 11:15 DCW (Rec: 03/08/22 17:11 DCW [id number]) Current Condition History of Current Condition Onset Date 12/16/21 Current Complaints Paraplegia History of Current Condition Pt is a 71 year old male with a very unfortunate medical history. Pt was hiking [place] [employer] [place] on 12/16/21 with a friend, finished up, drive back to his friend's home to drop him off, and noticed his left leg was collapsing. By the time pt drove home, both legs were giving out and numb. Pt was suddenly paralized from the waist down, was taken to the ED, and was flown to [facility] on 12/17/21. The following day, he underwent a laminectomy to relieve pressure from the thoracic epidural hematoma which had developed following his hike, which was pressing on his spinal cord. Following surgery , pt was in recovery for a week and was then transfered to rehab for 20 days, when he was finally discharged home in a wheelchair on 01/19/22. Pt reports his surgeon informed him that it is a possibility that he gets some return of nerve function. Has experienced some changes in his right LE, but has no motor function at this time from ~ T10 down. Minimal sensory return on right side, none on left. Pt has been anxious to get in to therapy and do everything he can to help return to function. Pt's , who attended his evaluation, notes that she has been doing a lot of PROM in his legs at night to keep everything moving. Pt can feel some stretching during PROM in his right leg. Pt has additionally already started occupational therapy, and has been practicing some seated stabilization. Pt transfers with a slide board, but notes it is difficult to do into his car, because he has to transfer upward at an incline. Treatment Goals Patient/Caregiver Goals I will do anything possible to get out of this wheelchair. My neurologist told me he has seen people recover from this , so I am not giving up hope. PT-OP-C Subjective Start: 03/08/22 17:00 Freq: Status: Active Protocol: Document 09/17/23 14:37 NBM (Rec: 09/17/23 16:03 NB [id number]) OP-PT Subjective Patient Comments Patient Comments Toby reports he hasn't been in stander for a couple of days busy with work, but he plans to use stander tonight. He states he continues to have incremental progress on R leg and forgot to check if his knee is moving when he moves the R foot. PT-OP-G Mobility & Gait Start: 03/08/22 17:00 Freq: Status: Active Protocol: Document 08/01/23 15:15 DCW (Rec: 08/01/23 15:37 DCW [id number]) OP Mobility Evaluation Transfers Bed to Chair Transfers Transfers using UE, improved with side-side movement Car Transfers uses slide board, stabilizes front to back and prevent slide down board Wheelchair Management Type of Wheelchair Manual w/c PT-OP-H Neuro Start: 03/08/22 17:00 Freq: Status: Active Protocol: Document 08/01/23 15:15 DCW (Rec: 08/01/23 15:37 DC [id number]) Sensation Evaluation Gross Sensation Gross Sensation Left LE Impaired,Right LE Impaired,Trunk Impaired Sensation Description Paresthesia,Numbness,Tingling, Pins & [place],Burning Dermatome Impairments L1,L2,L3,L4,L5,S1,S2,S3,S4-5 Location Details Right Leg Light Touch Impaired Sharp/Dull Impaired Deep Pressure Intact/Normal Hot/Cold Absent Protective Sensation Absent Proprioception (Position) Impaired Kinesthesia (Movement) Impaired Two-Point Discrimination Impaired Tactile Localization Impaired Stereognosis Impaired Left Leg Light Touch Absent Sharp/Dull Absent Deep Pressure Impaired Hot/Cold Impaired Protective Sensation Absent Proprioception (Position) Absent Kinesthesia (Movement) Impaired Two-Point Discrimination Absent Tactile Localization Absent Stereognosis Absent Comments Summary Comments B protective reflex vs sharp present Deep Tendon Reflex & Clonus Assessment Deep Tendon Reflex Right Achilles Deep Tendon Reflex 1+ Diminished Right Patellar Deep Tendon Reflex 2+ Normal Left Achilles Deep Tendon Reflex 1+ Diminished Left Patellar Deep Tendon Reflex 1+ Diminished Muscle Tone Tone Assessment Right Lower Extremity Flexor Tone Description Moderate Hypertonicity Extensor Tone Description Moderate Hypertonicity Left Lower Extremity Flexor Tone Description Moderate Hypertonicity Extensor Tone Description Moderate Hypertonicity PT-OP-J Posture/Palpation/Skin Start: 03/08/22 17:00 Freq: Status: Active Protocol: Document 08/01/23 15:15 DCW (Rec: 08/01/23 15:37 DCW [id number]) Posture Evaluation Comments Posture Comments Sitting EOB with good core control and no instability. Recovers from most directional pushing. Improved ability to reach outside of base of support. PT-OP-M Strength Start: 08/21/22 15:38 Freq: Status: Active Protocol: Document 08/01/23 15:15 DCW (Rec: 08/01/23 15:37 DCW [id number]) Hip Strength Hip Manual Muscle Testing Right Extension (S1) 2- Poor- Adduction 2- Poor- Left Extension (S1) 2- Poor- Adduction 1 Trace Knee Strength Knee Manual Muscle Testing Right Flexion (S2) 1 Trace Extension (L3) 1 Trace Left Flexion (S2) 1 Trace Extension (L3) 1 Trace Ankle/Foot Strength Ankle and Foot Manual Muscle Testing Right Plantarflexion (S1) 2- Poor- Left Plantarflexion (S1) 1 Trace PT-OP-Q Treatments Start: 03/08/22 17:00 Freq: Status: Active Protocol: Document 09/17/23 14:37 NBM (Rec: 09/17/23 16:03 NBM [id number]) Cardio Equipment Recumbent Elliptical (Biodex) Duration (Minutes) 9 Resistance 10 Seat Position 10>9 Other w/c<->biodex w/ dycem CG/min A Therapeutic Exercises Sitting Exercises HS stretch Sitting Exercise Name seated edge of w/c: Hamstring stretch Side bilateral Equipment Used 1/2 foam roll for heel to rest on, strap to pull toes up Reps/Minutes 2x60s ea Comments pt cued for foam and positioning. Calf stretch Sitting Exercise Name seated Calf stretch: soleus Side bilateral Equipment Used seated in w/c w/ foot on foot plate and w/ strap to pull up toes Reps/Minutes 2 x30s ea Manual Therapy Treatment Manual Techniques Calf stretch Type manual stretch Body Location Bilateral gastrocnemius Body Position Sitting Reps/Duration 2x45s ea Comments Pt seated in w/c with knee extended and overpressure applied above knee and foot manually pulled into DF. positive feedback response. Neuro Re-Education Treatment Balance Activities Seated balance Details SBA/CGA, occasional Min>mod A for LOB Equipment seated EOB on black plinth Comments AP mvmt w/ dowel (2#) in BUE to reach for cone targets balloon volleyball Details Balloon Volley Equipment seated edge of chair, gait belt, dowel Comments 1. seated Edge of black mat table, feet on floor, SBA - not today 2. free sitting, self wt shift outside KIARA reaching, focus on uprighting. Progressed from slower pacing to faster pacing for faster uprighting challenge w/ fwd reach and overhead reach. Self-Care/Home Management Treatment Education Patient Education Body Mechanics,Home Exercise Program,Safety Other Education Worked with pt to achieve seated hamstring stretch using strap around forefoot, 1/2 foam roll to rest heel on w/ leg extended, and body positioning (pt must be seated edge of w/c). Positive feedback response. Pictures taken w/ cues written and given to pt. PT-OP-T Assessment and Plan Start: 03/08/22 17:00 Freq: Status: Active Protocol: Document 09/17/23 14:37 [facility] (Rec: 09/17/23 16:03 [facility] [id number]) Physical Therapy Assessment Goals Three Impairment Pt does not have any motor function throughout bilateral LEs Short Term Goal (STG) Pt to demonstrate 1/5 trace motor contraction in at least one quad in order to begin focus on LE mobility if neural functional return begins. STG Duration [place] Goal (LTG) Pt to demonstrate right quad strength to at least 2/5, demonstrating movement into ROM in an antigravity position LTG Duration 10/30/23 Two Impairment Pt struggles with lateral transfer/scooting along EOB Fisheries Biologist Goal (LTG) Pt to perform lateral scoot transfer using proper technique without any verbal cues 4x in a row. LTG Duration 10/30/23 One Impairment Pt does not have an appropriate home exercise program Short Term Goal (STG) Pt to be independent and compliant with an appropriate HEP 07/30/22: progressing: resisted tricep ext, OH raises in w/c, supine HABD, added scaption OH B #2. STG Duration 09/29/23 Assessment Summary Assessment Treatment focus on LE stretching, self-care and seated balance with focus on uprighting fully after forward and overhead reach. Pt demonstrates increased R LE ER on recumbent elliptical and seat level is adjusted from 10 to 9 due to pt's complaint of discomfort; pt's report of decreased use of stander and LE activity may have contributed to LE tightness and pt plans to resume more frequent use tonight. Time spent troubleshooting seated HS stretch from w/c w/ pt - picture w/ cues given to pt and sent to [facility]j Toby successfully progressed from slower pacing to faster pacing for faster uprighting challenge w/ fwd reach and overhead reach balloon volleyball w/ dowel. Physical Therapy Plan Frequency and Duration Frequency of Treatment 2x/Week Plan of Care Start Date 08/01/23 Plan of Care End Date 10/30/23 Therapeutic Interventions Therapeutic Interventions Aquatic Therapy,Balance Training,Coordination Training ,Gait Training,Home Exercise Program,Manual Therapy, Neuromuscular Re-education, Orthotic/Prosthetic Management ,Patient/Caregiver Education, Self-Care/Home Management, Sensory Integration,Soft Tissue Mobilization, Therapeutic Activities, Therapeutic Exercises, Wheelchair Management Next Visit Focus/Plan Next Note Type Treatment Note Next Visit Plan Consider seated Paloff punch; quadruped, thoracic extension in supported quad. POC: Continue UE and core strengthening, LE PROM and manual stretching. Transfers, mobility, LE ROM, pt will benefit from continued breakdown of transfers to improve efficiency and mechanics, as well as working on more seated balance EOB.
--- NOTE | 2023-09-25 15:18 | PT.OTN ---
Current Diagnoses Paraplegia, unspecified (09/25/23) Other specified personal risk factors, not elsewhere classified (09/25/23) Other specified postprocedural states (09/25/23) Physical Therapy Treatment Note PT-OP-A Visit Information Start: 03/08/22 17:00 Freq: Status: Active Protocol: Document 09/25/23 14:30 DCW (Rec: 09/25/23 15:18 DCW [id number]) Out-Patient Physical Therapy Visit Information Visit Information Visit Type Treatment Note Visit Start Time 14:30 Visit Stop Time 15:15 Visit Number 140 Number of CASTING PLUG ASSEMBLER Visits 0 Evaluation Information Evaluation Date 03/08/22 PT-OP-B Current Condition Start: 03/08/22 17:00 Freq: Status: Active Protocol: Document 03/08/22 11:15 DCW (Rec: 03/08/22 17:11 DCW [id number]) Current Condition History of Current Condition Onset Date 12/16/21 Current Complaints Paraplegia History of Current Condition Pt is a 71 year old male with a very unfortunate medical history. Pt was hiking [employer] on 12/16/21 with a friend, finished up, drive back to his friend's home to drop him off, and noticed his left leg was collapsing. By the time pt drove home, both legs were giving out and numb. Pt was suddenly paralized from the waist down, was taken to the ED, and was flown to [facility] on 12/17/21. The following day, he underwent a laminectomy to relieve pressure from the thoracic epidural hematoma which had developed following his hike, which was pressing on his spinal cord. Following surgery , pt was in recovery for a week and was then transfered to rehab for 20 days, when he was finally discharged home in a wheelchair on 01/19/22. Pt reports his surgeon informed him that it is a possibility that he gets some return of nerve function. Has experienced some changes in his right LE, but has no motor function at this time from ~ T10 down. Minimal sensory return on right side, none on left. Pt has been anxious to get in to therapy and do everything he can to help return to function. Pt's , who attended his evaluation, notes that she has been doing a lot of PROM in his legs at night to keep everything moving. Pt can feel some stretching during PROM in his right leg. Pt has additionally already started occupational therapy, and has been practicing some seated stabilization. Pt transfers with a slide board, but notes it is difficult to do into his car, because he has to transfer upward at an incline. Treatment Goals Patient/Caregiver Goals I will do anything possible to get out of this wheelchair. My neurologist told me he has seen people recover from this , so I am not giving up hope. PT-OP-C Subjective Start: 03/08/22 17:00 Freq: Status: Active Protocol: Document 09/25/23 14:30 DCW (Rec: 09/25/23 15:18 DCW [id number]) OP-PT Subjective Patient Comments Patient Comments Pt reporting he uses his standing frame about every other day, reports typically ~1.5-2 hours at a time. PT-OP-G Mobility & Gait Start: 03/08/22 17:00 Freq: Status: Active Protocol: Document 08/01/23 15:15 DCW (Rec: 08/01/23 15:37 DCW [id number]) OP Mobility Evaluation Transfers Bed to Chair Transfers Transfers using UE, improved with side-side movement Car Transfers uses slide board, stabilizes front to back and prevent slide down board Wheelchair Management Type of Wheelchair Manual w/c PT-OP-H Neuro Start: 03/08/22 17:00 Freq: Status: Active Protocol: Document 08/01/23 15:15 DCW (Rec: 08/01/23 15:37 DCW [id number]) Sensation Evaluation Gross Sensation Gross Sensation Left LE Impaired,Right LE Impaired,Trunk Impaired Sensation Description Paresthesia,Numbness,Tingling, Pins & [place],Burning Dermatome Impairments L1,L2,L3,L4,L5,S1,S2,S3,S4-5 Location Details Right Leg Light Touch Impaired Sharp/Dull Impaired Deep Pressure Intact/Normal Hot/Cold Absent Protective Sensation Absent Proprioception (Position) Impaired Kinesthesia (Movement) Impaired Two-Point Discrimination Impaired Tactile Localization Impaired Stereognosis Impaired Left Leg Light Touch Absent Sharp/Dull Absent Deep Pressure Impaired Hot/Cold Impaired Protective Sensation Absent Proprioception (Position) Absent Kinesthesia (Movement) Impaired Two-Point Discrimination Absent Tactile Localization Absent Stereognosis Absent Comments Summary Comments B protective reflex vs sharp present Deep Tendon Reflex & Clonus Assessment Deep Tendon Reflex Right Achilles Deep Tendon Reflex 1+ Diminished Right Patellar Deep Tendon Reflex 2+ Normal Left Achilles Deep Tendon Reflex 1+ Diminished Left Patellar Deep Tendon Reflex 1+ Diminished Muscle Tone Tone Assessment Right Lower Extremity Flexor Tone Description Moderate Hypertonicity Extensor Tone Description Moderate Hypertonicity Left Lower Extremity Flexor Tone Description Moderate Hypertonicity Extensor Tone Description Moderate Hypertonicity PT-OP-J Posture/Palpation/Skin Start: 03/08/22 17:00 Freq: Status: Active Protocol: Document 08/01/23 15:15 DCW (Rec: 08/01/23 15:37 DCW [id number]) Posture Evaluation Comments Posture Comments Sitting EOB with good core control and no instability. Recovers from most directional pushing. Improved ability to reach outside of base of support. PT-OP-M Strength Start: 08/21/22 15:38 Freq: Status: Active Protocol: Document 08/01/23 15:15 DCW (Rec: 08/01/23 15:37 DCW [id number]) Hip Strength Hip Manual Muscle Testing Right Extension (S1) 2- Poor- Adduction 2- Poor- Left Extension (S1) 2- Poor- Adduction 1 Trace Knee Strength Knee Manual Muscle Testing Right Flexion (S2) 1 Trace Extension (L3) 1 Trace Left Flexion (S2) 1 Trace Extension (L3) 1 Trace Ankle/Foot Strength Ankle and Foot Manual Muscle Testing Right Plantarflexion (S1) 2- Poor- Left Plantarflexion (S1) 1 Trace PT-OP-Q Treatments Start: 03/08/22 17:00 Freq: Status: Active Protocol: Document 09/25/23 14:30 DCW (Rec: 09/25/23 15:18 DCW [id number]) Cardio Equipment Recumbent Elliptical (Biodex) Duration (Minutes) 10 Resistance 10 Seat Position 10 Other w/c<->biodex w/ dycem CG/min A Therapeutic Exercises Sitting Exercises Pallof Press Sitting Exercise Name Seated Pallof Side bilateral Resistance Lv 2 Other Exercises Long-kneeling Other Exercise Name Long kneeling /c 8->12 step support Equipment Used 8 step>12step, two pillows under hips Reps/Minutes x3 ea Comments cues for breath Approximation Other Exercise Name Hip approximation in quad, therapist overpressure through hips quadruped child's pose Other Exercise Name quadruped child's pose and sit back stretching Equipment Used two pillows under hips, GB Reps/Minutes 2 min Comments cued reach UEs out front PT-OP-T Assessment and Plan Start: 03/08/22 17:00 Freq: Status: Active Protocol: Document 09/25/23 14:30 DCW (Rec: 09/25/23 15:18 DCW [id number]) Physical Therapy Assessment Assessment Summary Assessment Good response to new Pallof press, pt provided with T-band to add to HEP. Pt performing bed mobility and getting into quadruped with decreased reliance on assist, today largely CTA except for SL-> Quad and then final push into nathalia kneel. Physical Therapy Plan Frequency and Duration Frequency of Treatment 2x/Week Plan of Care Start Date 08/01/23 Plan of Care End Date 10/30/23 Therapeutic Interventions Therapeutic Interventions Aquatic Therapy,Balance Training,Coordination Training ,Gait Training,Home Exercise Program,Manual Therapy, Neuromuscular Re-education, Orthotic/Prosthetic Management ,Patient/Caregiver Education, Self-Care/Home Management, Sensory Integration,Soft Tissue Mobilization, Therapeutic Activities, Therapeutic Exercises, Wheelchair Management Next Visit Focus/Plan Next Note Type Treatment Note Next Visit Plan quadruped, thoracic extension in supported quad. POC: Continue UE and core strengthening, LE PROM and manual stretching. Transfers, mobility, LE ROM, pt will benefit from continued breakdown of transfers to improve efficiency and mechanics, as well as working on more seated balance EOB.
--- NOTE | 2023-10-07 15:17 | PT.OTN ---
Current Diagnoses Paraplegia, unspecified (10/07/23) Other specified personal risk factors, not elsewhere classified (10/07/23) Other specified postprocedural states (10/07/23) Physical Therapy Treatment Note PT-OP-A Visit Information Start: 03/08/22 17:00 Freq: Status: Active Protocol: Document 10/07/23 14:31 DCW (Rec: 10/07/23 15:17 DCW [id number]) Out-Patient Physical Therapy Visit Information Visit Information Visit Type Treatment Note Visit Start Time 14:32 Visit Stop Time 15:15 Visit Number 143 Number of USER SUPPORT ANALYST SUPERVISOR Visits 0 Evaluation Information Evaluation Date 03/08/22 PT-OP-B Current Condition Start: 03/08/22 17:00 Freq: Status: Active Protocol: Document 03/08/22 11:15 DCW (Rec: 03/08/22 17:11 DCW [id number]) Current Condition History of Current Condition Onset Date 12/16/21 Current Complaints Paraplegia History of Current Condition Pt is a 71 year old male with a very unfortunate medical history. Pt was hiking [place] on 12/16/21 with a friend, finished up, drive back to his friend's home to drop him off, and noticed his left leg was collapsing. By the time pt drove home, both legs were giving out and numb. Pt was suddenly paralized from the waist down, was taken to the ED, and was flown to [facility] on 12/17/21. The following day, he underwent a laminectomy to relieve pressure from the thoracic epidural hematoma which had developed following his hike, which was pressing on his spinal cord. Following surgery , pt was in recovery for a week and was then transfered to rehab for 20 days, when he was finally discharged home in a wheelchair on 01/19/22. Pt reports his surgeon informed him that it is a possibility that he gets some return of nerve function. Has experienced some changes in his right LE, but has no motor function at this time from ~ T10 down. Minimal sensory return on right side, none on left. Pt has been anxious to get in to therapy and do everything he can to help return to function. Pt's , who attended his evaluation, notes that she has been doing a lot of PROM in his legs at night to keep everything moving. Pt can feel some stretching during PROM in his right leg. Pt has additionally already started occupational therapy, and has been practicing some seated stabilization. Pt transfers with a slide board, but notes it is difficult to do into his car, because he has to transfer upward at an incline. Treatment Goals Patient/Caregiver Goals I will do anything possible to get out of this wheelchair. My neurologist told me he has seen people recover from this , so I am not giving up hope. PT-OP-C Subjective Start: 03/08/22 17:00 Freq: Status: Active Protocol: Document 10/07/23 14:31 DCW (Rec: 10/07/23 15:17 DCW [id number]) OP-PT Subjective Patient Comments Patient Comments I've made a resolution with myself that I really need to follow. Pt notes he is worried about weight gain with his decline in activity since his accident. Feels it will lead to worsening transfers. PT-OP-G Mobility & Gait Start: 03/08/22 17:00 Freq: Status: Active Protocol: Document 08/01/23 15:15 DCW (Rec: 08/01/23 15:37 DCW [id number]) OP Mobility Evaluation Transfers Bed to Chair Transfers Transfers using UE, improved with side-side movement Car Transfers uses slide board, stabilizes front to back and prevent slide down board Wheelchair Management Type of Wheelchair Manual w/c PT-OP-H Neuro Start: 03/08/22 17:00 Freq: Status: Active Protocol: Document 08/01/23 15:15 DCW (Rec: 08/01/23 15:37 DCW [id number]) Sensation Evaluation Gross Sensation Gross Sensation Left LE Impaired,Right LE Impaired,Trunk Impaired Sensation Description Paresthesia,Numbness,Tingling, Pins & [place],Burning Dermatome Impairments L1,L2,L3,L4,L5,S1,S2,S3,S4-5 Location Details Right Leg Light Touch Impaired Sharp/Dull Impaired Deep Pressure Intact/Normal Hot/Cold Absent Protective Sensation Absent Proprioception (Position) Impaired Kinesthesia (Movement) Impaired Two-Point Discrimination Impaired Tactile Localization Impaired Stereognosis Impaired Left Leg Light Touch Absent Sharp/Dull Absent Deep Pressure Impaired Hot/Cold Impaired Protective Sensation Absent Proprioception (Position) Absent Kinesthesia (Movement) Impaired Two-Point Discrimination Absent Tactile Localization Absent Stereognosis Absent Comments Summary Comments B protective reflex vs sharp present Deep Tendon Reflex & Clonus Assessment Deep Tendon Reflex Right Achilles Deep Tendon Reflex 1+ Diminished Right Patellar Deep Tendon Reflex 2+ Normal Left Achilles Deep Tendon Reflex 1+ Diminished Left Patellar Deep Tendon Reflex 1+ Diminished Muscle Tone Tone Assessment Right Lower Extremity Flexor Tone Description Moderate Hypertonicity Extensor Tone Description Moderate Hypertonicity Left Lower Extremity Flexor Tone Description Moderate Hypertonicity Extensor Tone Description Moderate Hypertonicity PT-OP-J Posture/Palpation/Skin Start: 03/08/22 17:00 Freq: Status: Active Protocol: Document 08/01/23 15:15 DCW (Rec: 08/01/23 15:37 DCW [id number]) Posture Evaluation Comments Posture Comments Sitting EOB with good core control and no instability. Recovers from most directional pushing. Improved ability to reach outside of base of support. PT-OP-M Strength Start: 08/21/22 15:38 Freq: Status: Active Protocol: Document 08/01/23 15:15 DCW (Rec: 08/01/23 15:37 DCW [id number]) Hip Strength Hip Manual Muscle Testing Right Extension (S1) 2- Poor- Adduction 2- Poor- Left Extension (S1) 2- Poor- Adduction 1 Trace Knee Strength Knee Manual Muscle Testing Right Flexion (S2) 1 Trace Extension (L3) 1 Trace Left Flexion (S2) 1 Trace Extension (L3) 1 Trace Ankle/Foot Strength Ankle and Foot Manual Muscle Testing Right Plantarflexion (S1) 2- Poor- Left Plantarflexion (S1) 1 Trace PT-OP-Q Treatments Start: 03/08/22 17:00 Freq: Status: Active Protocol: Document 10/07/23 14:31 DCW (Rec: 10/07/23 15:17 DCW [id number]) Gym Equipment Shuttle Recovery Bilateral Squats Details with BUE assist on thighs Resistance 12# unassisted->25# assisted Shuttle Recovery Platform Stable Reps/Time focus on eccentric lowering Therapeutic Exercises Other Exercises Approximation Other Exercise Name Hip approximation in quad, therapist overpressure through hips quadruped child's pose Other Exercise Name quadruped child's pose and sit back stretching Equipment Used two pillows under hips, GB Reps/Minutes 2 min Comments cued reach UEs out front quadruped Resistance CGA Reps/Minutes 5x2 sets Comments pt self heavy support BUEs Neuro Re-Education Treatment Balance Activities balloon volleyball Details Balloon Volley Equipment seated edge of chair, gait belt, dowel Comments 1. seated Edge of black mat table, feet on floor, SBA - not today 2. free sitting, self wt shift outside KIARA reaching, focus on uprighting. Progressed from slower pacing to faster pacing for faster uprighting challenge w/ fwd reach and overhead reach. PT-OP-T Assessment and Plan Start: 03/08/22 17:00 Freq: Status: Active Protocol: Document 10/07/23 14:31 DCW (Rec: 10/07/23 15:17 DCW [id number]) Physical Therapy Assessment Impairments Impairments Activity Tolerance,Balance, Coordination,Functional Activities,Functional Mobility ,Gait,Integument,Sensation, Soft Tissue Mobility,Strength, Tone,Transfers Goals Three Impairment Pt does not have any motor function throughout bilateral LEs Short Term Goal (STG) Pt to demonstrate 1/5 trace motor contraction in at least one quad in order to begin focus on LE mobility if neural functional return begins. STG Duration Met Correction Goal (LTG) Pt to demonstrate right quad strength to at least 2/5, demonstrating movement into ROM in an antigravity position LTG Duration 10/30/23 Two Impairment Pt struggles with lateral transfer/scooting along EOB Correction Goal (LTG) Pt to perform lateral scoot transfer using proper technique without any verbal cues 4x in a row. LTG Duration 10/30/23 One Impairment Pt does not have an appropriate home exercise program Short Term Goal (STG) Pt to be independent and compliant with an appropriate HEP 07/30/22: progressing: resisted tricep ext, OH raises in w/c, supine HABD, added scaption OH B #2. STG Duration 09/29/23 Assessment Summary Assessment Pt put in very good effort today with quadruped and long- kneel, good workout to triceps . Continue to focus on transfers, motor control, and functional activities. Physical Therapy Plan Frequency and Duration Frequency of Treatment 2x/Week Plan of Care Start Date 08/01/23 Plan of Care End Date 10/30/23 Therapeutic Interventions Therapeutic Interventions Aquatic Therapy,Balance Training,Coordination Training ,Gait Training,Home Exercise Program,Manual Therapy, Neuromuscular Re-education, Orthotic/Prosthetic Management ,Patient/Caregiver Education, Self-Care/Home Management, Sensory Integration,Soft Tissue Mobilization, Therapeutic Activities, Therapeutic Exercises, Wheelchair Management Next Visit Focus/Plan Next Note Type Treatment Note Next Visit Plan quadruped, thoracic extension in supported quad. POC: Continue UE and core strengthening, LE PROM and manual stretching. Transfers, mobility, LE ROM, pt will benefit from continued breakdown of transfers to improve efficiency and mechanics, as well as working on more seated balance EOB.
--- NOTE | 2023-10-10 15:23 | PT.OTN ---
Current Diagnoses Paraplegia, unspecified (10/10/23) Other specified personal risk factors, not elsewhere classified (10/10/23) Other specified postprocedural states (10/10/23) Physical Therapy Treatment Note PT-OP-A Visit Information Start: 03/08/22 17:00 Freq: Status: Active Protocol: Document 10/10/23 14:52 NBM (Rec: 10/10/23 15:21 NBM [id number]) Out-Patient Physical Therapy Visit Information Visit Information Visit Type Treatment Note Visit Start Time 14:41 Visit Stop Time 15:21 Visit Number 144 Number of JEWELRY BENCH WORKER Visits 1 Evaluation Information Evaluation Date 03/08/22 PT-OP-B Current Condition Start: 03/08/22 17:00 Freq: Status: Active Protocol: Document 03/08/22 11:15 DCW (Rec: 03/08/22 17:11 DCW [id number]) Current Condition History of Current Condition Onset Date 12/16/21 Current Complaints Paraplegia History of Current Condition Pt is a 71 year old male with a very unfortunate medical history. Pt was hiking [place] on 12/16/21 with a friend, finished up, drive back to his friend's home to drop him off, and noticed his left leg was collapsing. By the time pt drove home, both legs were giving out and numb. Pt was suddenly paralized from the waist down, was taken to the ED, and was flown to [facility] on 12/17/21. The following day, he underwent a laminectomy to relieve pressure from the thoracic epidural hematoma which had developed following his hike, which was pressing on his spinal cord. Following surgery , pt was in recovery for a week and was then transfered to rehab for 20 days, when he was finally discharged home in a wheelchair on 01/19/22. Pt reports his surgeon informed him that it is a possibility that he gets some return of nerve function. Has experienced some changes in his right LE, but has no motor function at this time from ~ T10 down. Minimal sensory return on right side, none on left. Pt has been anxious to get in to therapy and do everything he can to help return to function. Pt's , who attended his evaluation, notes that she has been doing a lot of PROM in his legs at night to keep everything moving. Pt can feel some stretching during PROM in his right leg. Pt has additionally already started occupational therapy, and has been practicing some seated stabilization. Pt transfers with a slide board, but notes it is difficult to do into his car, because he has to transfer upward at an incline. Treatment Goals Patient/Caregiver Goals I will do anything possible to get out of this wheelchair. My neurologist told me he has seen people recover from this , so I am not giving up hope. PT-OP-C Subjective Start: 03/08/22 17:00 Freq: Status: Active Protocol: Document 10/10/23 14:52 NBM (Rec: 10/10/23 15:21 NBM [id number]) OP-PT Subjective Patient Comments Patient Comments [place] reports violent spasms have subsided to some degree and aren't waking him up as much as they used to. He had a vivid dream of running on a trail this morning. PT-OP-G Mobility & Gait Start: 03/08/22 17:00 Freq: Status: Active Protocol: Document 08/01/23 15:15 DCW (Rec: 08/01/23 15:37 DCW [id number]) OP Mobility Evaluation Transfers Bed to Chair Transfers Transfers using UE, improved with side-side movement Car Transfers uses slide board, stabilizes front to back and prevent slide down board Wheelchair Management Type of Wheelchair Manual w/c PT-OP-H Neuro Start: 03/08/22 17:00 Freq: Status: Active Protocol: Document 08/01/23 15:15 DCW (Rec: 08/01/23 15:37 DCW [id number]) Sensation Evaluation Gross Sensation Gross Sensation Left LE Impaired,Right LE Impaired,Trunk Impaired Sensation Description Paresthesia,Numbness,Tingling, Pins & [place],Burning Dermatome Impairments L1,L2,L3,L4,L5,S1,S2,S3,S4-5 Location Details Right Leg Light Touch Impaired Sharp/Dull Impaired Deep Pressure Intact/Normal Hot/Cold Absent Protective Sensation Absent Proprioception (Position) Impaired Kinesthesia (Movement) Impaired Two-Point Discrimination Impaired Tactile Localization Impaired Stereognosis Impaired Left Leg Light Touch Absent Sharp/Dull Absent Deep Pressure Impaired Hot/Cold Impaired Protective Sensation Absent Proprioception (Position) Absent Kinesthesia (Movement) Impaired Two-Point Discrimination Absent Tactile Localization Absent Stereognosis Absent Comments Summary Comments B protective reflex vs sharp present Deep Tendon Reflex & Clonus Assessment Deep Tendon Reflex Right Achilles Deep Tendon Reflex 1+ Diminished Right Patellar Deep Tendon Reflex 2+ Normal Left Achilles Deep Tendon Reflex 1+ Diminished Left Patellar Deep Tendon Reflex 1+ Diminished Muscle Tone Tone Assessment Right Lower Extremity Flexor Tone Description Moderate Hypertonicity Extensor Tone Description Moderate Hypertonicity Left Lower Extremity Flexor Tone Description Moderate Hypertonicity Extensor Tone Description Moderate Hypertonicity PT-OP-J Posture/Palpation/Skin Start: 03/08/22 17:00 Freq: Status: Active Protocol: Document 08/01/23 15:15 DCW (Rec: 08/01/23 15:37 DCW [id number]) Posture Evaluation Comments Posture Comments Sitting EOB with good core control and no instability. Recovers from most directional pushing. Improved ability to reach outside of base of support. PT-OP-M Strength Start: 08/21/22 15:38 Freq: Status: Active Protocol: Document 08/01/23 15:15 DCW (Rec: 08/01/23 15:37 DCW [id number]) Hip Strength Hip Manual Muscle Testing Right Extension (S1) 2- Poor- Adduction 2- Poor- Left Extension (S1) 2- Poor- Adduction 1 Trace Knee Strength Knee Manual Muscle Testing Right Flexion (S2) 1 Trace Extension (L3) 1 Trace Left Flexion (S2) 1 Trace Extension (L3) 1 Trace Ankle/Foot Strength Ankle and Foot Manual Muscle Testing Right Plantarflexion (S1) 2- Poor- Left Plantarflexion (S1) 1 Trace PT-OP-Q Treatments Start: 03/08/22 17:00 Freq: Status: Active Protocol: Document 10/10/23 14:52 NBM (Rec: 10/10/23 15:21 NBM [id number]) Cardio Equipment Recumbent Elliptical (Biodex) Duration (Minutes) 12 Resistance 10 Seat Position 10 Other 518 steps w/c<->biodex w/ dycem CG/min A Gym Equipment Shuttle Recovery Bilateral Squats Details with BUE assist on thighs Resistance 25# assisted->12# unassisted Shuttle Recovery Platform Stable Reps/Time focus on eccentric lowering Therapeutic Activity Therapeutic Activity squat/lateral scoot transfer Name Edu to avoid posterior weightshifting for foot adjustment Comments 1. w/c<>biodex CGA/Min A 2. w/c<>shuttle recovery 3. lateral transfer on mat table x12 ea, SBA> knee blocking prn - not today - lateral scoot>manual foot placement using UE centering mass>posterior shift as needed PT-OP-T Assessment and Plan Start: 03/08/22 17:00 Freq: Status: Active Protocol: Document 10/10/23 14:52 NBM (Rec: 10/10/23 15:21 NBM [id number]) Physical Therapy Assessment Impairments Impairments Activity Tolerance,Balance, Coordination,Functional Activities,Functional Mobility ,Gait,Integument,Sensation, Soft Tissue Mobility,Strength, Tone,Transfers Goals Three Impairment Pt does not have any motor function throughout bilateral LEs Short Term Goal (STG) Pt to demonstrate 1/5 trace motor contraction in at least one quad in order to begin focus on LE mobility if neural functional return begins. STG Duration Met Retirement Goal (LTG) Pt to demonstrate right quad strength to at least 2/5, demonstrating movement into ROM in an antigravity position LTG Duration 10/30/23 Two Impairment Pt struggles with lateral transfer/scooting along EOB Retirement Goal (LTG) Pt to perform lateral scoot transfer using proper technique without any verbal cues 4x in a row. LTG Duration 10/30/23 One Impairment Pt does not have an appropriate home exercise program Short Term Goal (STG) Pt to be independent and compliant with an appropriate HEP 07/30/22: progressing: resisted tricep ext, OH raises in w/c, supine HABD, added scaption OH B #2. STG Duration 09/29/23 Assessment Summary Assessment Toby is able to create observable movement of Shuttle Recovery platform at 12# and is able to arrest the platform eccentrically at 25#. Physical Therapy Plan Frequency and Duration Frequency of Treatment 2x/Week Plan of Care Start Date 08/01/23 Plan of Care End Date 10/30/23 Therapeutic Interventions Therapeutic Interventions Aquatic Therapy,Balance Training,Coordination Training ,Gait Training,Home Exercise Program,Manual Therapy, Neuromuscular Re-education, Orthotic/Prosthetic Management ,Patient/Caregiver Education, Self-Care/Home Management, Sensory Integration,Soft Tissue Mobilization, Therapeutic Activities, Therapeutic Exercises, Wheelchair Management Next Visit Focus/Plan Next Note Type Treatment Note Next Visit Plan quadruped, thoracic extension in supported quad. POC: Continue UE and core strengthening, LE PROM and manual stretching. Transfers, mobility, LE ROM, pt will benefit from continued breakdown of transfers to improve efficiency and mechanics, as well as working on more seated balance EOB.
--- NOTE | 2023-10-15 17:54 | PT.OTN ---
Current Diagnoses Paraplegia, unspecified (10/15/23) Other specified personal risk factors, not elsewhere classified (10/15/23) Other specified postprocedural states (10/15/23) Physical Therapy Treatment Note PT-OP-A Visit Information Start: 03/08/22 17:00 Freq: Status: Active Protocol: Document 10/15/23 15:27 NBM (Rec: 10/15/23 16:12 NBM [id number]) Out-Patient Physical Therapy Visit Information Visit Information Visit Type Treatment Note Visit Start Time 15:25 Visit Stop Time 16:10 Visit Number [id number] Number of FORENSIC IDENTIFICATION SPECIALIST Visits 2 Evaluation Information Evaluation Date 03/08/22 PT-OP-B Current Condition Start: 03/08/22 17:00 Freq: Status: Active Protocol: Document 03/08/22 11:15 DCW (Rec: 03/08/22 17:11 DCW [id number]) Current Condition History of Current Condition Onset Date 12/16/21 Current Complaints Paraplegia History of Current Condition Pt is a 71 year old male with a very unfortunate medical history. Pt was hiking [place] on 12/16/21 with a friend, finished up, drive back to his friend's home to drop him off, and noticed his left leg was collapsing. By the time pt drove home, both legs were giving out and numb. Pt was suddenly paralized from the waist down, was taken to the ED, and was flown to [facility] on 12/17/21. The following day, he underwent a laminectomy to relieve pressure from the thoracic epidural hematoma which had developed following his hike, which was pressing on his spinal cord. Following surgery , pt was in recovery for a week and was then transfered to rehab for 20 days, when he was finally discharged home in a wheelchair on 01/19/22. Pt reports his surgeon informed him that it is a possibility that he gets some return of nerve function. Has experienced some changes in his right LE, but has no motor function at this time from ~ T10 down. Minimal sensory return on right side, none on left. Pt has been anxious to get in to therapy and do everything he can to help return to function. Pt's , who attended his evaluation, notes that she has been doing a lot of PROM in his legs at night to keep everything moving. Pt can feel some stretching during PROM in his right leg. Pt has additionally already started occupational therapy, and has been practicing some seated stabilization. Pt transfers with a slide board, but notes it is difficult to do into his car, because he has to transfer upward at an incline. Treatment Goals Patient/Caregiver Goals I will do anything possible to get out of this wheelchair. My neurologist told me he has seen people recover from this , so I am not giving up hope. PT-OP-C Subjective Start: 03/08/22 17:00 Freq: Status: Active Protocol: Document 10/15/23 15:27 NBM (Rec: 10/15/23 16:12 NBM [id number]) OP-PT Subjective Patient Comments Patient Comments Toby reports R foot can move by itself and he suspects the movement on L is the result of a spasm he initiates by thinking about moving it. He's on a weightloss program and thinks he's losing weight because it's getting easier to fasten his pants. PT-OP-G Mobility & Gait Start: 03/08/22 17:00 Freq: Status: Active Protocol: Document 08/01/23 15:15 DCW (Rec: 08/01/23 15:37 DCW [id number]) OP Mobility Evaluation Transfers Bed to Chair Transfers Transfers using UE, improved with side-side movement Car Transfers uses slide board, stabilizes front to back and prevent slide down board Wheelchair Management Type of Wheelchair Manual w/c PT-OP-H Neuro Start: 03/08/22 17:00 Freq: Status: Active Protocol: Document 08/01/23 15:15 DCW (Rec: 08/01/23 15:37 DC [id number]) Sensation Evaluation Gross Sensation Gross Sensation Left LE Impaired,Right LE Impaired,Trunk Impaired Sensation Description Paresthesia,Numbness,Tingling, Pins & [place],Burning Dermatome Impairments L1,L2,L3,L4,L5,S1,S2,S3,S4-5 Location Details Right Leg Light Touch Impaired Sharp/Dull Impaired Deep Pressure Intact/Normal Hot/Cold Absent Protective Sensation Absent Proprioception (Position) Impaired Kinesthesia (Movement) Impaired Two-Point Discrimination Impaired Tactile Localization Impaired Stereognosis Impaired Left Leg Light Touch Absent Sharp/Dull Absent Deep Pressure Impaired Hot/Cold Impaired Protective Sensation Absent Proprioception (Position) Absent Kinesthesia (Movement) Impaired Two-Point Discrimination Absent Tactile Localization Absent Stereognosis Absent Comments Summary Comments B protective reflex vs sharp present Deep Tendon Reflex & Clonus Assessment Deep Tendon Reflex Right Achilles Deep Tendon Reflex 1+ Diminished Right Patellar Deep Tendon Reflex 2+ Normal Left Achilles Deep Tendon Reflex 1+ Diminished Left Patellar Deep Tendon Reflex 1+ Diminished Muscle Tone Tone Assessment Right Lower Extremity Flexor Tone Description Moderate Hypertonicity Extensor Tone Description Moderate Hypertonicity Left Lower Extremity Flexor Tone Description Moderate Hypertonicity Extensor Tone Description Moderate Hypertonicity PT-OP-J Posture/Palpation/Skin Start: 03/08/22 17:00 Freq: Status: Active Protocol: Document 08/01/23 15:15 DCW (Rec: 08/01/23 15:37 DCW [id number]) Posture Evaluation Comments Posture Comments Sitting EOB with good core control and no instability. Recovers from most directional pushing. Improved ability to reach outside of base of support. PT-OP-M Strength Start: 08/21/22 15:38 Freq: Status: Active Protocol: Document 08/01/23 15:15 DCW (Rec: 08/01/23 15:37 DCW [id number]) Hip Strength Hip Manual Muscle Testing Right Extension (S1) 2- Poor- Adduction 2- Poor- Left Extension (S1) 2- Poor- Adduction 1 Trace Knee Strength Knee Manual Muscle Testing Right Flexion (S2) 1 Trace Extension (L3) 1 Trace Left Flexion (S2) 1 Trace Extension (L3) 1 Trace Ankle/Foot Strength Ankle and Foot Manual Muscle Testing Right Plantarflexion (S1) 2- Poor- Left Plantarflexion (S1) 1 Trace PT-OP-Q Treatments Start: 03/08/22 17:00 Freq: Status: Active Protocol: Document 10/15/23 15:27 NBM (Rec: 10/15/23 16:12 NB [id number]) Gym Equipment Cable Column (Body Solid) cable row Resistance 30# Reps/Time 2x10 w/ modA at shoulders to prevent trunk flexion lateral pulldown Resistance 40#>50# Reps/Time x15 ea, cues for breathwork Therapeutic Exercises Sitting Exercises serratus punch Sitting Exercise Name alternating Side bilateral Resistance Lvl 1 Tb Reps/Minutes x20 ea DL isometric press Sitting Exercise Name core and breathwork focus Reps/Minutes 3 x 5 SH Triceps Extension Sitting Exercise Name Seated overhead Triceps extension Side bilateral Resistance Lv 1 Equipment Used small blue dynadisc under feet Comments T-band anchored at wall Therapeutic Activity Therapeutic Activity squat/lateral scoot transfer Name avoiding posterior weightshifting for foot adjustment Comments 1. w/c<>biodex CGA/Min A - not today 2. w/c<>shuttle recovery - not today 3. lateral transfer <> mat table 4. lateral scoot> Jonathan x10 ea, SBA>CGA. manual foot placement to allow for LE alignment after lateral scoot - only one posterior weight shift needed ea direction for adjustement today. PT-OP-T Assessment and Plan Start: 03/08/22 17:00 Freq: Status: Active Protocol: Document 10/15/23 15:27 NBM (Rec: 10/15/23 16:12 [facility] [id number]) Physical Therapy Assessment Goals Three Impairment Pt does not have any motor function throughout bilateral LEs Short Term Goal (STG) Pt to demonstrate 1/5 trace motor contraction in at least one quad in order to begin focus on LE mobility if neural functional return begins. STG Duration Met Custodial Goal (LTG) Pt to demonstrate right quad strength to at least 2/5, demonstrating movement into ROM in an antigravity position LTG Duration 10/30/23 Two Impairment Pt struggles with lateral transfer/scooting along EOB Manager Property Goal (LTG) Pt to perform lateral scoot transfer using proper technique without any verbal cues 4x in a row. LTG Duration 10/30/23 One Impairment Pt does not have an appropriate home exercise program Short Term Goal (STG) Pt to be independent and compliant with an appropriate HEP 07/30/22: progressing: resisted tricep ext, OH raises in w/c, supine HABD, added scaption OH B #2. STG Duration 09/29/23 Assessment Summary Assessment Treatment focus on UE strengthening with core focus and lateral scooting . Lateral scoot focus on manual foot placement to allow for LE alignment after lateral scoot without posterior weightshift - one posterior weight shift needed ea direction for adjustment today which demos improvement. Cues needed for breathwork with UE exercises using core strength. Physical Therapy Plan Frequency and Duration Frequency of Treatment 2x/Week Plan of Care Start Date 08/01/23 Plan of Care End Date 10/30/23 Therapeutic Interventions Therapeutic Interventions Aquatic Therapy,Balance Training,Coordination Training ,Gait Training,Home Exercise Program,Manual Therapy, Neuromuscular Re-education, Orthotic/Prosthetic Management ,Patient/Caregiver Education, Self-Care/Home Management, Sensory Integration,Soft Tissue Mobilization, Therapeutic Activities, Therapeutic Exercises, Wheelchair Management Next Visit Focus/Plan Next Note Type Treatment Note Next Visit Plan quadruped, thoracic extension in supported quad. POC: Continue UE and core strengthening, LE PROM and manual stretching. Transfers, mobility, LE ROM, pt will benefit from continued breakdown of transfers to improve efficiency and mechanics, as well as working on more seated balance EOB.
--- NOTE | 2023-10-16 15:12 | PT.OTN ---
Current Diagnoses Paraplegia, unspecified (10/16/23) Other specified personal risk factors, not elsewhere classified (10/16/23) Other specified postprocedural states (10/16/23) Physical Therapy Treatment Note PT-OP-A Visit Information Start: 03/08/22 17:00 Freq: Status: Active Protocol: Document 10/16/23 14:35 DCW (Rec: 10/16/23 15:12 DCW [id number]) Out-Patient Physical Therapy Visit Information Visit Information Visit Type Treatment Note Visit Start Time 14:35 Visit Stop Time 15:05 Visit Number 146 Number of PACKAGING SALES Visits 0 Evaluation Information Evaluation Date 03/08/22 PT-OP-B Current Condition Start: 03/08/22 17:00 Freq: Status: Active Protocol: Document 03/08/22 11:15 DCW (Rec: 03/08/22 17:11 DCW [id number]) Current Condition History of Current Condition Onset Date 12/16/21 Current Complaints Paraplegia History of Current Condition Pt is a 71 year old male with a very unfortunate medical history. Pt was hiking [place] 12/16/21 with a friend, finished up, drive back to his friend's home to drop him off, and noticed his left leg was collapsing. By the time pt drove home, both legs were giving out and numb. Pt was suddenly paralized from the waist down, was taken to the ED, and was flown to [facility] on 12/17/21. The following day, he underwent a laminectomy to relieve pressure from the thoracic epidural hematoma which had developed following his hike, which was pressing on his spinal cord. Following surgery , pt was in recovery for a week and was then transfered to rehab for 20 days, when he was finally discharged home in a wheelchair on 01/19/22. Pt reports his surgeon informed him that it is a possibility that he gets some return of nerve function. Has experienced some changes in his right LE, but has no motor function at this time from ~ T10 down. Minimal sensory return on right side, none on left. Pt has been anxious to get in to therapy and do everything he can to help return to function. Pt's , who attended his evaluation, notes that she has been doing a lot of PROM in his legs at night to keep everything moving. Pt can feel some stretching during PROM in his right leg. Pt has additionally already started occupational therapy, and has been practicing some seated stabilization. Pt transfers with a slide board, but notes it is difficult to do into his car, because he has to transfer upward at an incline. Treatment Goals Patient/Caregiver Goals I will do anything possible to get out of this wheelchair. My neurologist told me he has seen people recover from this , so I am not giving up hope. PT-OP-C Subjective Start: 03/08/22 17:00 Freq: Status: Active Protocol: Document 10/16/23 14:35 DCW (Rec: 10/16/23 15:12 DCW [id number]) OP-PT Subjective Patient Comments Patient Comments Pt feels e is getting better overall. Core feels stronger, believes he has improved his back muscles enough that they' re holding him up better. PT-OP-G Mobility & Gait Start: 03/08/22 17:00 Freq: Status: Active Protocol: Document 08/01/23 15:15 DCW (Rec: 08/01/23 15:37 DCW [id number]) OP Mobility Evaluation Transfers Bed to Chair Transfers Transfers using UE, improved with side-side movement Car Transfers uses slide board, stabilizes front to back and prevent slide down board Wheelchair Management Type of Wheelchair Manual w/c PT-OP-H Neuro Start: 03/08/22 17:00 Freq: Status: Active Protocol: Document 08/01/23 15:15 DCW (Rec: 08/01/23 15:37 DCW [id number]) Sensation Evaluation Gross Sensation Gross Sensation Left LE Impaired,Right LE Impaired,Trunk Impaired Sensation Description Paresthesia,Numbness,Tingling, Pins & [place],Burning Dermatome Impairments L1,L2,L3,L4,L5,S1,S2,S3,S4-5 Location Details Right Leg Light Touch Impaired Sharp/Dull Impaired Deep Pressure Intact/Normal Hot/Cold Absent Protective Sensation Absent Proprioception (Position) Impaired Kinesthesia (Movement) Impaired Two-Point Discrimination Impaired Tactile Localization Impaired Stereognosis Impaired Left Leg Light Touch Absent Sharp/Dull Absent Deep Pressure Impaired Hot/Cold Impaired Protective Sensation Absent Proprioception (Position) Absent Kinesthesia (Movement) Impaired Two-Point Discrimination Absent Tactile Localization Absent Stereognosis Absent Comments Summary Comments B protective reflex vs sharp present Deep Tendon Reflex & Clonus Assessment Deep Tendon Reflex Right Achilles Deep Tendon Reflex 1+ Diminished Right Patellar Deep Tendon Reflex 2+ Normal Left Achilles Deep Tendon Reflex 1+ Diminished Left Patellar Deep Tendon Reflex 1+ Diminished Muscle Tone Tone Assessment Right Lower Extremity Flexor Tone Description Moderate Hypertonicity Extensor Tone Description Moderate Hypertonicity Left Lower Extremity Flexor Tone Description Moderate Hypertonicity Extensor Tone Description Moderate Hypertonicity PT-OP-J Posture/Palpation/Skin Start: 03/08/22 17:00 Freq: Status: Active Protocol: Document 08/01/23 15:15 DCW (Rec: 08/01/23 15:37 DCW [id number]) Posture Evaluation Comments Posture Comments Sitting EOB with good core control and no instability. Recovers from most directional pushing. Improved ability to reach outside of base of support. PT-OP-M Strength Start: 08/21/22 15:38 Freq: Status: Active Protocol: Document 08/01/23 15:15 DCW (Rec: 08/01/23 15:37 DCW [id number]) Hip Strength Hip Manual Muscle Testing Right Extension (S1) 2- Poor- Adduction 2- Poor- Left Extension (S1) 2- Poor- Adduction 1 Trace Knee Strength Knee Manual Muscle Testing Right Flexion (S2) 1 Trace Extension (L3) 1 Trace Left Flexion (S2) 1 Trace Extension (L3) 1 Trace Ankle/Foot Strength Ankle and Foot Manual Muscle Testing Right Plantarflexion (S1) 2- Poor- Left Plantarflexion (S1) 1 Trace PT-OP-Q Treatments Start: 03/08/22 17:00 Freq: Status: Active Protocol: Document 10/16/23 14:35 DCW (Rec: 10/16/23 15:12 DCW [id number]) Cardio Equipment Recumbent Elliptical (Biodex) Duration (Minutes) 10 Resistance 10 Seat Position 10 Neuro Re-Education Treatment Balance Activities Seated balance Details SBA/CGA, occasional Min>mod A for LOB Equipment seated EOB on black plinth Comments tapping cones /c dowel (2#) in BUE to reach for cone targets balloon volleyball Details Balloon Volley Equipment seated edge of chair, gait belt, dowel PT-OP-T Assessment and Plan Start: 03/08/22 17:00 Freq: Status: Active Protocol: Document 10/16/23 14:35 DCW (Rec: 10/16/23 15:12 DCW [id number]) Physical Therapy Assessment Impairments Impairments Activity Tolerance,Balance, Coordination,Functional Activities,Functional Mobility ,Gait,Integument,Sensation, Soft Tissue Mobility,Strength, Tone,Transfers Goals Three Impairment Pt does not have any motor function throughout bilateral LEs Short Term Goal (STG) Pt to demonstrate 1/5 trace motor contraction in at least one quad in order to begin focus on LE mobility if neural functional return begins. STG Duration Met Fish Conservationist Goal (LTG) Pt to demonstrate right quad strength to at least 2/5, demonstrating movement into ROM in an antigravity position LTG Duration 10/30/23 Two Impairment Pt struggles with lateral transfer/scooting along EOB Jail Goal (LTG) Pt to perform lateral scoot transfer using proper technique without any verbal cues 4x in a row. LTG Duration 10/30/23 One Impairment Pt does not have an appropriate home exercise program Short Term Goal (STG) Pt to be independent and compliant with an appropriate HEP 07/30/22: progressing: resisted tricep ext, OH raises in w/c, supine HABD, added scaption OH B #2. STG Duration 09/29/23 Assessment Summary Assessment Pt requested leaving early today due to work commitments. Focus continues to be on core stabilization, seated balance , and functional mobility. Still having difficulty with holding himself upright with additional weight pulling him forward. Physical Therapy Plan Frequency and Duration Frequency of Treatment 2x/Week Plan of Care Start Date 08/01/23 Plan of Care End Date 10/30/23 Therapeutic Interventions Therapeutic Interventions Aquatic Therapy,Balance Training,Coordination Training ,Gait Training,Home Exercise Program,Manual Therapy, Neuromuscular Re-education, Orthotic/Prosthetic Management ,Patient/Caregiver Education, Self-Care/Home Management, Sensory Integration,Soft Tissue Mobilization, Therapeutic Activities, Therapeutic Exercises, Wheelchair Management Next Visit Focus/Plan Next Note Type Treatment Note Next Visit Plan quadruped, thoracic extension in supported quad. POC: Continue UE and core strengthening, LE PROM and manual stretching. Transfers, mobility, LE ROM, pt will benefit from continued breakdown of transfers to improve efficiency and mechanics, as well as working on more seated balance EOB.
--- NOTE | 2023-10-27 16:16 | PT.OTN ---
Current Diagnoses Paraplegia, unspecified (10/27/23) Other specified personal risk factors, not elsewhere classified (10/27/23) Other specified postprocedural states (10/27/23) Physical Therapy Treatment Note PT-OP-A Visit Information Start: 03/08/22 17:00 Freq: Status: Active Protocol: Document 10/27/23 14:30 DCW (Rec: 10/27/23 16:16 DCW [id number]) Out-Patient Physical Therapy Visit Information Visit Information Visit Type Progress Note Visit Start Time 14:30 Visit Stop Time 15:15 Visit Number [id number] Number of LOCKET MAKER Visits 0 Evaluation Information Evaluation Date 03/08/22 PT-OP-B Current Condition Start: 03/08/22 17:00 Freq: Status: Active Protocol: Document 03/08/22 11:15 DCW (Rec: 03/08/22 17:11 DCW [id number]) Current Condition History of Current Condition Onset Date 12/16/21 Current Complaints Paraplegia History of Current Condition Pt is a 71 year old male with a very unfortunate medical history. Pt was hiking [employer] on 12/16/21 with a friend, finished up, drive back to his friend's home to drop him off, and noticed his left leg was collapsing. By the time pt drove home, both legs were giving out and numb. Pt was suddenly paralized from the waist down, was taken to the ED, and was flown to [facility] on 12/17/21. The following day, he underwent a laminectomy to relieve pressure from the thoracic epidural hematoma which had developed following his hike, which was pressing on his spinal cord. Following surgery , pt was in recovery for a week and was then transfered to rehab for 20 days, when he was finally discharged home in a wheelchair on 01/19/22. Pt reports his surgeon informed him that it is a possibility that he gets some return of nerve function. Has experienced some changes in his right LE, but has no motor function at this time from ~ T10 down. Minimal sensory return on right side, none on left. Pt has been anxious to get in to therapy and do everything he can to help return to function. Pt's , who attended his evaluation, notes that she has been doing a lot of PROM in his legs at night to keep everything moving. Pt can feel some stretching during PROM in his right leg. Pt has additionally already started occupational therapy, and has been practicing some seated stabilization. Pt transfers with a slide board, but notes it is difficult to do into his car, because he has to transfer upward at an incline. Treatment Goals Patient/Caregiver Goals I will do anything possible to get out of this wheelchair. My neurologist told me he has seen people recover from this , so I am not giving up hope. PT-OP-C Subjective Start: 03/08/22 17:00 Freq: Status: Active Protocol: Document 10/27/23 14:30 DCW (Rec: 10/27/23 16:16 DCW [id number]) OP-PT Subjective Patient Comments Patient Comments I'm coming to accept that I'm probably won't walk again. I' m not going to stop working toward that, but it's looking less and less likely. PT-OP-G Mobility & Gait Start: 03/08/22 17:00 Freq: Status: Active Protocol: Document 10/27/23 14:30 DCW (Rec: 10/27/23 14:56 DCW [id number]) OP Mobility Evaluation Transfers Bed to Chair Transfers Transfers using UE, improved with side-side movement, requires verbal cues for LE positioning Car Transfers uses slide board, stabilizes front to back and prevent slide down board Wheelchair Management Type of Wheelchair Manual w/c Assessment Details Unable to perform tilt back to get over curb with stability PT-OP-H Neuro Start: 03/08/22 17:00 Freq: Status: Active Protocol: Document 10/27/23 14:30 DCW (Rec: 10/27/23 14:56 DCW [id number]) Sensation Evaluation Gross Sensation Gross Sensation Left LE Impaired,Right LE Impaired,Trunk Impaired Sensation Description Paresthesia,Numbness,Tingling, Pins & [place],Burning Dermatome Impairments L1,L2,L3,L4,L5,S1,S2,S3,S4-5 Location Details Right Leg Light Touch Impaired Sharp/Dull Impaired Deep Pressure Intact/Normal Hot/Cold Absent Protective Sensation Absent Proprioception (Position) Impaired Kinesthesia (Movement) Impaired Two-Point Discrimination Impaired Tactile Localization Impaired Stereognosis Impaired Left Leg Light Touch Absent Sharp/Dull Absent Deep Pressure Impaired Hot/Cold Impaired Protective Sensation Absent Proprioception (Position) Absent Kinesthesia (Movement) Impaired Two-Point Discrimination Absent Tactile Localization Absent Stereognosis Absent Comments Summary Comments B protective reflex vs sharp present Deep Tendon Reflex & Clonus Assessment Deep Tendon Reflex Right Achilles Deep Tendon Reflex 1+ Diminished Right Patellar Deep Tendon Reflex 2+ Normal Left Achilles Deep Tendon Reflex 1+ Diminished Left Patellar Deep Tendon Reflex 1+ Diminished Muscle Tone Tone Assessment Right Lower Extremity Flexor Tone Description Moderate Hypertonicity Extensor Tone Description Moderate Hypertonicity Left Lower Extremity Flexor Tone Description Moderate Hypertonicity Extensor Tone Description Moderate Hypertonicity PT-OP-J Posture/Palpation/Skin Start: 03/08/22 17:00 Freq: Status: Active Protocol: Document 10/27/23 14:30 DCW (Rec: 10/27/23 14:56 DCW [id number]) Posture Evaluation Comments Posture Comments Sitting EOB with good core control and no instability. Recovers from most directional pushing. Improved ability to reach outside of base of support. PT-OP-M Strength Start: 08/21/22 15:38 Freq: Status: Active Protocol: Document 10/27/23 14:30 DCW (Rec: 10/27/23 14:56 DCW [id number]) Hip Strength Hip Manual Muscle Testing Right Flexion (L2) 1 Trace Extension (S1) 2- Poor- Adduction 2- Poor- Left Flexion (L2) 1 Trace Extension (S1) 2- Poor- Adduction 1 Trace Knee Strength Knee Manual Muscle Testing Right Flexion (S2) 2- Poor- Extension (L3) 1 Trace Left Flexion (S2) 1 Trace Extension (L3) 1 Trace Ankle/Foot Strength Ankle and Foot Manual Muscle Testing Right Plantarflexion (S1) 2- Poor- Left Plantarflexion (S1) 1 Trace PT-OP-Q Treatments Start: 03/08/22 17:00 Freq: Status: Active Protocol: Document 10/27/23 14:30 DCW (Rec: 10/27/23 16:16 DCW [id number]) Therapeutic Activity Therapeutic Activity Wheelchair Mobility Comments Practice and cues for wheelies to clear curbs, adjustments of anti-tip stands. PT-OP-T Assessment and Plan Start: 03/08/22 17:00 Freq: Status: Active Protocol: Document 10/27/23 14:30 DCW (Rec: 10/27/23 16:16 DCW [id number]) Physical Therapy Assessment Impairments Impairments Activity Tolerance,Balance, Coordination,Functional Activities,Functional Mobility ,Gait,Integument,Sensation, Soft Tissue Mobility,Strength, Tone,Transfers Goals Three Impairment Pt does not have any motor function throughout bilateral LEs Short Term Goal (STG) Pt to demonstrate 1/5 trace motor contraction in at least one quad in order to begin focus on LE mobility if neural functional return begins. STG Duration Met Long-Term Goal (LTG) Pt to demonstrate right quad strength to at least 2/5, demonstrating movement into ROM in an antigravity position LTG Duration 01/25/24 Two Impairment Pt struggles with lateral transfer/scooting along EOB Long-Term Goal (LTG) Pt to perform lateral scoot transfer using proper technique without any verbal cues 4x in a row. LTG Duration 01/25/24 One Impairment Pt does not have an appropriate home exercise program Short Term Goal (STG) Pt to be independent and compliant with an appropriate HEP 07/30/22: progressing: resisted tricep ext, OH raises in w/c, supine HABD, added scaption OH B #2. STG Duration 01/25/24 Assessment Summary Assessment Retesting performed today, pt making incremental progress with sensory return to right LEs, as well as some improvements with core strength and seated stability. Discussed today practicing more wheel chair mobility in the future, specifically working toward safely performing wheelies. Will continue to focus on transfers , core strengthening, LE mobility, with additional wheel chair management/ mobility. Physical Therapy Plan Frequency and Duration Frequency of Treatment 2x/Week Plan of Care Start Date 10/27/23 Plan of Care End Date 01/25/24 Therapeutic Interventions Therapeutic Interventions Aquatic Therapy,Balance Training,Coordination Training ,Gait Training,Home Exercise Program,Manual Therapy, Neuromuscular Re-education, Orthotic/Prosthetic Management ,Patient/Caregiver Education, Self-Care/Home Management, Sensory Integration,Soft Tissue Mobilization, Therapeutic Activities, Therapeutic Exercises, Wheelchair Management Next Visit Focus/Plan Next Note Type Treatment Note Next Visit Plan Wheelchair wheelies, curb management POC: Continue UE and core strengthening, LE PROM and manual stretching. Transfers, mobility, LE ROM, pt will benefit from continued breakdown of transfers to improve efficiency and mechanics, as well as working on more seated balance EOB.
--- NOTE | 2023-10-27 16:16 | PT.OPPOC ---
Physical, Occupational & Speech Therapy At Current Diagnoses Paraplegia, unspecified (10/27/23) Other specified personal risk factors, not elsewhere classified (10/27/23) Other specified postprocedural states (10/27/23) Visit Care Team Role Provider Type Octavio Yates MD Family Provider Physician Primary Care Provider Specialty: Family Practice Address: [address] [place] [address], [address], [address] Email: [email or web address] Charleen Arias PA-C Attending Provider Advanced Cheesemaker Referring Provider Specialty: Medical Address: [address] [place] [address], [place] [address], [place], [address] Email: [email or web address] Plan Of Care PT-OP-T Assessment and Plan Start: 03/08/22 17:00 Freq: Status: Active Protocol: Document 10/27/23 14:30 DCW (Rec: 10/27/23 16:16 DCW [id number]) Physical Therapy Assessment Impairments Impairments Activity Tolerance,Balance, Coordination,Functional Activities,Functional Mobility ,Gait,Integument,Sensation, Soft Tissue Mobility,Strength, Tone,Transfers Goals Three Impairment Pt does not have any motor function throughout bilateral LEs Short Term Goal (STG) Pt to demonstrate 1/5 trace motor contraction in at least one quad in order to begin focus on LE mobility if neural functional return begins. STG Duration Met Retirement Goal (LTG) Pt to demonstrate right quad strength to at least 2/5, demonstrating movement into ROM in an antigravity position LTG Duration 01/25/24 Two Impairment Pt struggles with lateral transfer/scooting along EOB Retirement Goal (LTG) Pt to perform lateral scoot transfer using proper technique without any verbal cues 4x in a row. LTG Duration 01/25/24 One Impairment Pt does not have an appropriate home exercise program Short Term Goal (STG) Pt to be independent and compliant with an appropriate HEP 07/30/22: progressing: resisted tricep ext, OH raises in w/c, supine HABD, added scaption OH B #2. STG Duration 01/25/24 Assessment Summary Assessment Retesting performed today, pt making incremental progress with sensory return to right LEs, as well as some improvements with core strength and seated stability. Discussed today practicing more wheel chair mobility in the future, specifically working toward safely performing wheelies. Will continue to focus on transfers , core strengthening, LE mobility, with additional wheel chair management/ mobility. Physical Therapy Plan Frequency and Duration Frequency of Treatment 2x/Week Plan of Care Start Date 10/27/23 Plan of Care End Date 01/25/24 Therapeutic Interventions Therapeutic Interventions Aquatic Therapy,Balance Training,Coordination Training ,Gait Training,Home Exercise Program,Manual Therapy, Neuromuscular Re-education, Orthotic/Prosthetic Management ,Patient/Caregiver Education, Self-Care/Home Management, Sensory Integration,Soft Tissue Mobilization, Therapeutic Activities, Therapeutic Exercises, Wheelchair Management Next Visit Focus/Plan Next Note Type Treatment Note Next Visit Plan Wheelchair wheelies, curb management POC: Continue UE and core strengthening, LE PROM and manual stretching. Transfers, mobility, LE ROM, pt will benefit from continued breakdown of transfers to improve efficiency and mechanics, as well as working on more seated balance EOB. Plan of Care Dates Plan of Care Start Date 10/27/23 Plan of Care End Date 01/25/24 Electronically Signed by: Jean Ruggiero, PT 10/27/23 8641 If you are in agreement with this Plan of Care, please return a signed and dated copy. I have reviewed this Plan of Care and certify that the skilled therapy services above are required to meet the patient?s needs. Physician Signature Date Printed Name and Credentials Clinical Instructor Signature Printed Name and Credentials
--- NOTE | 2023-11-06 15:20 | PT.OTN ---
Current Diagnoses Paraplegia, unspecified (11/06/23) Other specified personal risk factors, not elsewhere classified (11/06/23) Other specified postprocedural states (11/06/23) Physical Therapy Treatment Note PT-OP-A Visit Information Start: 03/08/22 17:00 Freq: Status: Active Protocol: Document 11/06/23 14:33 DCW (Rec: 11/06/23 15:20 DCW [id number]) Out-Patient Physical Therapy Visit Information Visit Information Visit Type Treatment Note Visit Start Time 14:33 Visit Stop Time 15:15 Visit Number 150 Number of GUEST RELATIONS AGENT Visits 0 Evaluation Information Evaluation Date 03/08/22 PT-OP-B Current Condition Start: 03/08/22 17:00 Freq: Status: Active Protocol: Document 03/08/22 11:15 DCW (Rec: 03/08/22 17:11 DCW [id number]) Current Condition History of Current Condition Onset Date 12/16/21 Current Complaints Paraplegia History of Current Condition Pt is a 71 year old male with a very unfortunate medical history. Pt was hiking [employer] on 12/16/21 with a friend, finished up, drive back to his friend's home to drop him off, and noticed his left leg was collapsing. By the time pt drove home, both legs were giving out and numb. Pt was suddenly paralized from the waist down, was taken to the ED, and was flown to [facility] on 12/17/21. The following day, he underwent a laminectomy to relieve pressure from the thoracic epidural hematoma which had developed following his hike, which was pressing on his spinal cord. Following surgery , pt was in recovery for a week and was then transfered to rehab for 20 days, when he was finally discharged home in a wheelchair on 01/19/22. Pt reports his surgeon informed him that it is a possibility that he gets some return of nerve function. Has experienced some changes in his right LE, but has no motor function at this time from ~ T10 down. Minimal sensory return on right side, none on left. Pt has been anxious to get in to therapy and do everything he can to help return to function. Pt's , who attended his evaluation, notes that she has been doing a lot of PROM in his legs at night to keep everything moving. Pt can feel some stretching during PROM in his right leg. Pt has additionally already started occupational therapy, and has been practicing some seated stabilization. Pt transfers with a slide board, but notes it is difficult to do into his car, because he has to transfer upward at an incline. Treatment Goals Patient/Caregiver Goals I will do anything possible to get out of this wheelchair. My neurologist told me he has seen people recover from this , so I am not giving up hope. PT-OP-C Subjective Start: 03/08/22 17:00 Freq: Status: Active Protocol: Document 11/06/23 14:33 DCW (Rec: 11/06/23 15:20 DCW [id number]) OP-PT Subjective Patient Comments Patient Comments It feels good to get that right leg moving. PT-OP-G Mobility & Gait Start: 03/08/22 17:00 Freq: Status: Active Protocol: Document 10/27/23 14:30 DCW (Rec: 10/27/23 14:56 DCW [id number]) OP Mobility Evaluation Transfers Bed to Chair Transfers Transfers using UE, improved with side-side movement, requires verbal cues for LE positioning Car Transfers uses slide board, stabilizes front to back and prevent slide down board Wheelchair Management Type of Wheelchair Manual w/c Assessment Details Unable to perform tilt back to get over curb with stability PT-OP-H Neuro Start: 03/08/22 17:00 Freq: Status: Active Protocol: Document 10/27/23 14:30 DCW (Rec: 10/27/23 14:56 DCW [id number]) Sensation Evaluation Gross Sensation Gross Sensation Left LE Impaired,Right LE Impaired,Trunk Impaired Sensation Description Paresthesia,Numbness,Tingling, Pins & [place],Burning Dermatome Impairments L1,L2,L3,L4,L5,S1,S2,S3,S4-5 Location Details Right Leg Light Touch Impaired Sharp/Dull Impaired Deep Pressure Intact/Normal Hot/Cold Absent Protective Sensation Absent Proprioception (Position) Impaired Kinesthesia (Movement) Impaired Two-Point Discrimination Impaired Tactile Localization Impaired Stereognosis Impaired Left Leg Light Touch Absent Sharp/Dull Absent Deep Pressure Impaired Hot/Cold Impaired Protective Sensation Absent Proprioception (Position) Absent Kinesthesia (Movement) Impaired Two-Point Discrimination Absent Tactile Localization Absent Stereognosis Absent Comments Summary Comments B protective reflex vs sharp present Deep Tendon Reflex & Clonus Assessment Deep Tendon Reflex Right Achilles Deep Tendon Reflex 1+ Diminished Right Patellar Deep Tendon Reflex 2+ Normal Left Achilles Deep Tendon Reflex 1+ Diminished Left Patellar Deep Tendon Reflex 1+ Diminished Muscle Tone Tone Assessment Right Lower Extremity Flexor Tone Description Moderate Hypertonicity Extensor Tone Description Moderate Hypertonicity Left Lower Extremity Flexor Tone Description Moderate Hypertonicity Extensor Tone Description Moderate Hypertonicity PT-OP-J Posture/Palpation/Skin Start: 03/08/22 17:00 Freq: Status: Active Protocol: Document 10/27/23 14:30 DCW (Rec: 10/27/23 14:56 DCW [id number]) Posture Evaluation Comments Posture Comments Sitting EOB with good core control and no instability. Recovers from most directional pushing. Improved ability to reach outside of base of support. PT-OP-M Strength Start: 08/21/22 15:38 Freq: Status: Active Protocol: Document 10/27/23 14:30 DCW (Rec: 10/27/23 14:56 DCW [id number]) Hip Strength Hip Manual Muscle Testing Right Flexion (L2) 1 Trace Extension (S1) 2- Poor- Adduction 2- Poor- Left Flexion (L2) 1 Trace Extension (S1) 2- Poor- Adduction 1 Trace Knee Strength Knee Manual Muscle Testing Right Flexion (S2) 2- Poor- Extension (L3) 1 Trace Left Flexion (S2) 1 Trace Extension (L3) 1 Trace Ankle/Foot Strength Ankle and Foot Manual Muscle Testing Right Plantarflexion (S1) 2- Poor- Left Plantarflexion (S1) 1 Trace PT-OP-Q Treatments Start: 03/08/22 17:00 Freq: Status: Active Protocol: Document 11/06/23 14:33 DCW (Rec: 11/06/23 15:20 DCW [id number]) Cardio Equipment Recumbent Elliptical (BiodCryptmint) Duration (Minutes) 10 Resistance 10 Seat Position 10 Other pt cued to try pushing through heels Therapeutic Activity Therapeutic Activity Wheelchair Mobility Comments Practice and cues for wheelies to clear curbs, with both pt' s personal w/c and hospital w/ c to examine differences in wheel position and center of gravity. PT-OP-T Assessment and Plan Start: 03/08/22 17:00 Freq: Status: Active Protocol: Document 11/06/23 14:33 DCW (Rec: 11/06/23 15:20 DCW [id number]) Physical Therapy Assessment Goals Three Impairment Pt does not have any motor function throughout bilateral LEs Short Term Goal (STG) Pt to demonstrate 1/5 trace motor contraction in at least one quad in order to begin focus on LE mobility if neural functional return begins. STG Duration Met Nursing Home Goal (LTG) Pt to demonstrate right quad strength to at least 2/5, demonstrating movement into ROM in an antigravity position LTG Duration 01/25/24 Two Impairment Pt struggles with lateral transfer/scooting along EOB Nursing Home Goal (LTG) Pt to perform lateral scoot transfer using proper technique without any verbal cues 4x in a row. LTG Duration 01/25/24 One Impairment Pt does not have an appropriate home exercise program Short Term Goal (STG) Pt to be independent and compliant with an appropriate HEP 07/30/22: progressing: resisted tricep ext, OH raises in w/c, supine HABD, added scaption OH B #2. STG Duration 01/25/24 Assessment Summary Assessment Continued recent focus on w/c mobility, spent most of today practicing wheelies and finding balance point. Continue next week with either shortened anti-tip bars or removal completely. Physical Therapy Plan Frequency and Duration Frequency of Treatment 2x/Week Plan of Care Start Date 10/27/23 Plan of Care End Date 01/25/24 Therapeutic Interventions Therapeutic Interventions Aquatic Therapy,Balance Training,Coordination Training ,Gait Training,Home Exercise Program,Manual Therapy, Neuromuscular Re-education, Orthotic/Prosthetic Management ,Patient/Caregiver Education, Self-Care/Home Management, Sensory Integration,Soft Tissue Mobilization, Therapeutic Activities, Therapeutic Exercises, Wheelchair Management Next Visit Focus/Plan Next Note Type Treatment Note Next Visit Plan Wheelchair wheelies, curb management POC: Continue UE and core strengthening, LE PROM and manual stretching. Transfers, mobility, LE ROM, pt will benefit from continued breakdown of transfers to improve efficiency and mechanics, as well as working on more seated balance EOB.
--- NOTE | 2023-11-20 17:36 | PT.OTN ---
Current Diagnoses Paraplegia, unspecified (11/20/23) Other specified personal risk factors, not elsewhere classified (11/20/23) Other specified postprocedural states (11/20/23) Physical Therapy Treatment Note PT-OP-A Visit Information Start: 03/08/22 17:00 Freq: Status: Active Protocol: Document 11/20/23 16:50 DCW (Rec: 11/20/23 17:36 DCW [id number]) Out-Patient Physical Therapy Visit Information Visit Information Visit Type Treatment Note Visit Start Time 16:50 Visit Stop Time 17:30 Visit Number [id number] Number of SUPERVISOR FABRICATION DEPARTMENT Visits 0 Evaluation Information Evaluation Date 03/08/22 PT-OP-B Current Condition Start: 03/08/22 17:00 Freq: Status: Active Protocol: Document 03/08/22 11:15 DCW (Rec: 03/08/22 17:11 DCW [id number]) Current Condition History of Current Condition Onset Date 12/16/21 Current Complaints Paraplegia History of Current Condition Pt is a 71 year old male with a very unfortunate medical history. Pt was hiking [employer] on 12/16/21 with a friend, finished up, drive back to his friend's home to drop him off, and noticed his left leg was collapsing. By the time pt drove home, both legs were giving out and numb. Pt was suddenly paralized from the waist down, was taken to the ED, and was flown to [facility] on 12/17/21. The following day, he underwent a laminectomy to relieve pressure from the thoracic epidural hematoma which had developed following his hike, which was pressing on his spinal cord. Following surgery , pt was in recovery for a week and was then transfered to rehab for 20 days, when he was finally discharged home in a wheelchair on 01/19/22. Pt reports his surgeon informed him that it is a possibility that he gets some return of nerve function. Has experienced some changes in his right LE, but has no motor function at this time from ~ T10 down. Minimal sensory return on right side, none on left. Pt has been anxious to get in to therapy and do everything he can to help return to function. Pt's , who attended his evaluation, notes that she has been doing a lot of PROM in his legs at night to keep everything moving. Pt can feel some stretching during PROM in his right leg. Pt has additionally already started occupational therapy, and has been practicing some seated stabilization. Pt transfers with a slide board, but notes it is difficult to do into his car, because he has to transfer upward at an incline. Treatment Goals Patient/Caregiver Goals I will do anything possible to get out of this wheelchair. My neurologist told me he has seen people recover from this , so I am not giving up hope. PT-OP-C Subjective Start: 03/08/22 17:00 Freq: Status: Active Protocol: Document 11/20/23 16:50 DCW (Rec: 11/20/23 17:36 DCW [id number]) OP-PT Subjective Patient Comments Patient Comments Pt admits he still hasn't been in his stander recenty, but he plans to use it tonight. I 've been having a lot of pain at night, and I think I just need to get up and get off my butt. PT-OP-G Mobility & Gait Start: 03/08/22 17:00 Freq: Status: Active Protocol: Document 10/27/23 14:30 DCW (Rec: 10/27/23 14:56 DCW [id number]) OP Mobility Evaluation Transfers Bed to Chair Transfers Transfers using UE, improved with side-side movement, requires verbal cues for LE positioning Car Transfers uses slide board, stabilizes front to back and prevent slide down board Wheelchair Management Type of Wheelchair Manual w/c Assessment Details Unable to perform tilt back to get over curb with stability PT-OP-H Neuro Start: 03/08/22 17:00 Freq: Status: Active Protocol: Document 10/27/23 14:30 DCW (Rec: 10/27/23 14:56 DCW [id number]) Sensation Evaluation Gross Sensation Gross Sensation Left LE Impaired,Right LE Impaired,Trunk Impaired Sensation Description Paresthesia,Numbness,Tingling, Pins & [place],Burning Dermatome Impairments L1,L2,L3,L4,L5,S1,S2,S3,S4-5 Location Details Right Leg Light Touch Impaired Sharp/Dull Impaired Deep Pressure Intact/Normal Hot/Cold Absent Protective Sensation Absent Proprioception (Position) Impaired Kinesthesia (Movement) Impaired Two-Point Discrimination Impaired Tactile Localization Impaired Stereognosis Impaired Left Leg Light Touch Absent Sharp/Dull Absent Deep Pressure Impaired Hot/Cold Impaired Protective Sensation Absent Proprioception (Position) Absent Kinesthesia (Movement) Impaired Two-Point Discrimination Absent Tactile Localization Absent Stereognosis Absent Comments Summary Comments B protective reflex vs sharp present Deep Tendon Reflex & Clonus Assessment Deep Tendon Reflex Right Achilles Deep Tendon Reflex 1+ Diminished Right Patellar Deep Tendon Reflex 2+ Normal Left Achilles Deep Tendon Reflex 1+ Diminished Left Patellar Deep Tendon Reflex 1+ Diminished Muscle Tone Tone Assessment Right Lower Extremity Flexor Tone Description Moderate Hypertonicity Extensor Tone Description Moderate Hypertonicity Left Lower Extremity Flexor Tone Description Moderate Hypertonicity Extensor Tone Description Moderate Hypertonicity PT-OP-J Posture/Palpation/Skin Start: 03/08/22 17:00 Freq: Status: Active Protocol: Document 10/27/23 14:30 DCW (Rec: 10/27/23 14:56 DCW [id number]) Posture Evaluation Comments Posture Comments Sitting EOB with good core control and no instability. Recovers from most directional pushing. Improved ability to reach outside of base of support. PT-OP-M Strength Start: 08/21/22 15:38 Freq: Status: Active Protocol: Document 10/27/23 14:30 DCW (Rec: 10/27/23 14:56 DCW [id number]) Hip Strength Hip Manual Muscle Testing Right Flexion (L2) 1 Trace Extension (S1) 2- Poor- Adduction 2- Poor- Left Flexion (L2) 1 Trace Extension (S1) 2- Poor- Adduction 1 Trace Knee Strength Knee Manual Muscle Testing Right Flexion (S2) 2- Poor- Extension (L3) 1 Trace Left Flexion (S2) 1 Trace Extension (L3) 1 Trace Ankle/Foot Strength Ankle and Foot Manual Muscle Testing Right Plantarflexion (S1) 2- Poor- Left Plantarflexion (S1) 1 Trace PT-OP-Q Treatments Start: 03/08/22 17:00 Freq: Status: Active Protocol: Document 11/20/23 16:50 DCW (Rec: 11/20/23 17:36 DCW [id number]) Cardio Equipment Recumbent Elliptical ([employer]ely[employer]) Duration (Minutes) 10 Resistance 11 Seat Position 10 Other pt cued to try pushing through heels Therapeutic Exercises Other Exercises Long-kneeling Other Exercise Name Long kneeling /c 12 step support Equipment Used 12step Reps/Minutes x3 ea Comments cues for breath Approximation Other Exercise Name Hip approximation in quad, therapist overpressure through hips quadruped child's pose Other Exercise Name quadruped child's pose and sit back stretching Equipment Used two pillows under hips, GB Reps/Minutes 2 min Comments cued reach UEs out front quadruped Resistance CGA Reps/Minutes 5x2 sets Comments pt self heavy support BUEs PT-OP-T Assessment and Plan Start: 03/08/22 17:00 Freq: Status: Active Protocol: Document 11/20/23 16:50 DCW (Rec: 11/20/23 17:36 DCW [id number]) Physical Therapy Assessment Impairments Impairments Activity Tolerance,Balance, Coordination,Functional Activities,Functional Mobility ,Gait,Integument,Sensation, Soft Tissue Mobility,Strength, Tone,Transfers Goals Three Impairment Pt does not have any motor function throughout bilateral LEs Short Term Goal (STG) Pt to demonstrate 1/5 trace motor contraction in at least one quad in order to begin focus on LE mobility if neural functional return begins. STG Duration Met Penitentiary Goal (LTG) Pt to demonstrate right quad strength to at least 2/5, demonstrating movement into ROM in an antigravity position LTG Duration 01/25/24 Two Impairment Pt struggles with lateral transfer/scooting along EOB Penitentiary Goal (LTG) Pt to perform lateral scoot transfer using proper technique without any verbal cues 4x in a row. LTG Duration 01/25/24 One Impairment Pt does not have an appropriate home exercise program Short Term Goal (STG) Pt to be independent and compliant with an appropriate HEP 07/30/22: progressing: resisted tricep ext, OH raises in w/c, supine HABD, added scaption OH B #2. STG Duration 01/25/24 Assessment Summary Assessment Pt doing better in quadruped and long kneeling, able to balance himself in long kneel with hands on thighs. Requires Mod Ax1 to get from side- lying -> quad, but was able to roll self further than he had previously. Good response to hip approximation. Physical Therapy Plan Frequency and Duration Frequency of Treatment 2x/Week Plan of Care Start Date 10/27/23 Plan of Care End Date 01/25/24 Therapeutic Interventions Therapeutic Interventions Aquatic Therapy,Balance Training,Coordination Training ,Gait Training,Home Exercise Program,Manual Therapy, Neuromuscular Re-education, Orthotic/Prosthetic Management ,Patient/Caregiver Education, Self-Care/Home Management, Sensory Integration,Soft Tissue Mobilization, Therapeutic Activities, Therapeutic Exercises, Wheelchair Management Next Visit Focus/Plan Next Note Type Treatment Note Next Visit Plan Wheelchair wheelies, curb management POC: Continue UE and core strengthening, LE PROM and manual stretching. Transfers, mobility, LE ROM, pt will benefit from continued breakdown of transfers to improve efficiency and mechanics, as well as working on more seated balance EOB.
--- NOTE | 2023-11-26 17:31 | PT.OTN ---
Current Diagnoses Paraplegia, unspecified (11/26/23) Other specified personal risk factors, not elsewhere classified (11/26/23) Other specified postprocedural states (11/26/23) Physical Therapy Treatment Note PT-OP-A Visit Information Start: 03/08/22 17:00 Freq: Status: Active Protocol: Document 11/26/23 16:47 DCW (Rec: 11/26/23 17:31 DCW [id number]) Out-Patient Physical Therapy Visit Information Visit Information Visit Type Treatment Note Visit Start Time 16:47 Visit Stop Time 17:30 Visit Number [id number] Number of PACK OPERATOR Visits 0 Evaluation Information Evaluation Date 03/08/22 PT-OP-B Current Condition Start: 03/08/22 17:00 Freq: Status: Active Protocol: Document 03/08/22 11:15 DCW (Rec: 03/08/22 17:11 DCW [id number]) Current Condition History of Current Condition Onset Date 12/16/21 Current Complaints Paraplegia History of Current Condition Pt is a 71 year old male with a very unfortunate medical history. Pt was hiking [employer] on 12/16/21 with a friend, finished up, drive back to his friend's home to drop him off, and noticed his left leg was collapsing. By the time pt drove home, both legs were giving out and numb. Pt was suddenly paralized from the waist down, was taken to the ED, and was flown to [facility] on 12/17/21. The following day, he underwent a laminectomy to relieve pressure from the thoracic epidural hematoma which had developed following his hike, which was pressing on his spinal cord. Following surgery , pt was in recovery for a week and was then transfered to rehab for 20 days, when he was finally discharged home in a wheelchair on 01/19/22. Pt reports his surgeon informed him that it is a possibility that he gets some return of nerve function. Has experienced some changes in his right LE, but has no motor function at this time from ~ T10 down. Minimal sensory return on right side, none on left. Pt has been anxious to get in to therapy and do everything he can to help return to function. Pt's , who attended his evaluation, notes that she has been doing a lot of PROM in his legs at night to keep everything moving. Pt can feel some stretching during PROM in his right leg. Pt has additionally already started occupational therapy, and has been practicing some seated stabilization. Pt transfers with a slide board, but notes it is difficult to do into his car, because he has to transfer upward at an incline. Treatment Goals Patient/Caregiver Goals I will do anything possible to get out of this wheelchair. My neurologist told me he has seen people recover from this , so I am not giving up hope. PT-OP-C Subjective Start: 03/08/22 17:00 Freq: Status: Active Protocol: Document 11/26/23 16:47 DCW (Rec: 11/26/23 17:31 DCW [id number]) OP-PT Subjective Patient Comments Patient Comments Pt feeling good today, did spend some time standing with his stander. PT-OP-G Mobility & Gait Start: 03/08/22 17:00 Freq: Status: Active Protocol: Document 10/27/23 14:30 DCW (Rec: 10/27/23 14:56 DCW [id number]) OP Mobility Evaluation Transfers Bed to Chair Transfers Transfers using UE, improved with side-side movement, requires verbal cues for LE positioning Car Transfers uses slide board, stabilizes front to back and prevent slide down board Wheelchair Management Type of Wheelchair Manual w/c Assessment Details Unable to perform tilt back to get over curb with stability PT-OP-H Neuro Start: 03/08/22 17:00 Freq: Status: Active Protocol: Document 10/27/23 14:30 DCW (Rec: 10/27/23 14:56 DCW [id number]) Sensation Evaluation Gross Sensation Gross Sensation Left LE Impaired,Right LE Impaired,Trunk Impaired Sensation Description Paresthesia,Numbness,Tingling, Pins & [place],Burning Dermatome Impairments L1,L2,L3,L4,L5,S1,S2,S3,S4-5 Location Details Right Leg Light Touch Impaired Sharp/Dull Impaired Deep Pressure Intact/Normal Hot/Cold Absent Protective Sensation Absent Proprioception (Position) Impaired Kinesthesia (Movement) Impaired Two-Point Discrimination Impaired Tactile Localization Impaired Stereognosis Impaired Left Leg Light Touch Absent Sharp/Dull Absent Deep Pressure Impaired Hot/Cold Impaired Protective Sensation Absent Proprioception (Position) Absent Kinesthesia (Movement) Impaired Two-Point Discrimination Absent Tactile Localization Absent Stereognosis Absent Comments Summary Comments B protective reflex vs sharp present Deep Tendon Reflex & Clonus Assessment Deep Tendon Reflex Right Achilles Deep Tendon Reflex 1+ Diminished Right Patellar Deep Tendon Reflex 2+ Normal Left Achilles Deep Tendon Reflex 1+ Diminished Left Patellar Deep Tendon Reflex 1+ Diminished Muscle Tone Tone Assessment Right Lower Extremity Flexor Tone Description Moderate Hypertonicity Extensor Tone Description Moderate Hypertonicity Left Lower Extremity Flexor Tone Description Moderate Hypertonicity Extensor Tone Description Moderate Hypertonicity PT-OP-J Posture/Palpation/Skin Start: 03/08/22 17:00 Freq: Status: Active Protocol: Document 10/27/23 14:30 DCW (Rec: 10/27/23 14:56 DCW [id number]) Posture Evaluation Comments Posture Comments Sitting EOB with good core control and no instability. Recovers from most directional pushing. Improved ability to reach outside of base of support. PT-OP-M Strength Start: 08/21/22 15:38 Freq: Status: Active Protocol: Document 10/27/23 14:30 DCW (Rec: 10/27/23 14:56 DCW [id number]) Hip Strength Hip Manual Muscle Testing Right Flexion (L2) 1 Trace Extension (S1) 2- Poor- Adduction 2- Poor- Left Flexion (L2) 1 Trace Extension (S1) 2- Poor- Adduction 1 Trace Knee Strength Knee Manual Muscle Testing Right Flexion (S2) 2- Poor- Extension (L3) 1 Trace Left Flexion (S2) 1 Trace Extension (L3) 1 Trace Ankle/Foot Strength Ankle and Foot Manual Muscle Testing Right Plantarflexion (S1) 2- Poor- Left Plantarflexion (S1) 1 Trace PT-OP-Q Treatments Start: 03/08/22 17:00 Freq: Status: Active Protocol: Document 11/26/23 16:47 DCW (Rec: 11/26/23 17:31 DCW [id number]) Cardio Equipment Recumbent Elliptical ([employer]) Duration (Minutes) 10 Resistance 11 Seat Position 10 Other pt cued to try pushing through heels Therapeutic Exercises Other Exercises Thread the needle Other Exercise Name Thread the needle Side bilateral Comments Quadruped - Therapist assisted Long-kneeling Other Exercise Name Long kneeling /c 12 step support Equipment Used 12step Reps/Minutes x3 ea Comments cues for breath Approximation Other Exercise Name Hip approximation in quad, therapist overpressure through hips quadruped child's pose Other Exercise Name quadruped child's pose and sit back stretching Equipment Used two pillows under hips, GB Reps/Minutes 2 min Comments cued reach UEs out front quadruped Resistance CGA Reps/Minutes 5x2 sets Comments pt self heavy support BUEs Neuro Re-Education Treatment Balance Activities Seated balance Details Seated EOB Equipment Sword fighting /c PVC PT-OP-T Assessment and Plan Start: 03/08/22 17:00 Freq: Status: Active Protocol: Document 11/26/23 16:47 DCW (Rec: 11/26/23 17:31 DCW [id number]) Physical Therapy Assessment Impairments Impairments Activity Tolerance,Balance, Coordination,Functional Activities,Functional Mobility ,Gait,Integument,Sensation, Soft Tissue Mobility,Strength, Tone,Transfers Goals Three Impairment Pt does not have any motor function throughout bilateral LEs Short Term Goal (STG) Pt to demonstrate 1/5 trace motor contraction in at least one quad in order to begin focus on LE mobility if neural functional return begins. STG Duration Met [employer] Goal (LTG) Pt to demonstrate right quad strength to at least 2/5, demonstrating movement into ROM in an antigravity position LTG Duration 01/25/24 Two Impairment Pt struggles with lateral transfer/scooting along EOB [employer] Supply Goal (LTG) Pt to perform lateral scoot transfer using proper technique without any verbal cues 4x in a row. LTG Duration 01/25/24 One Impairment Pt does not have an appropriate home exercise program Short Term Goal (STG) Pt to be independent and compliant with an appropriate HEP 07/30/22: progressing: resisted tricep ext, OH raises in w/c, supine HABD, added scaption OH B #2. STG Duration 01/25/24 Assessment Summary Assessment Did well with new activities today, required stabilization from therapist with thread the needle, but some fairly good trunk mobility. Also able to maintain seated balance EOB 65 % of the time sword-fighting. Physical Therapy Plan Frequency and Duration Frequency of Treatment 2x/Week Plan of Care Start Date 10/27/23 Plan of Care End Date 01/25/24 Therapeutic Interventions Therapeutic Interventions Aquatic Therapy,Balance Training,Coordination Training ,Gait Training,Home Exercise Program,Manual Therapy, Neuromuscular Re-education, Orthotic/Prosthetic Management ,Patient/Caregiver Education, Self-Care/Home Management, Sensory Integration,Soft Tissue Mobilization, Therapeutic Activities, Therapeutic Exercises, Wheelchair Management Next Visit Focus/Plan Next Note Type Treatment Note Next Visit Plan Wheelchair wheelies, curb management POC: Continue UE and core strengthening, LE PROM and manual stretching. Transfers, mobility, LE ROM, pt will benefit from continued breakdown of transfers to improve efficiency and mechanics, as well as working on more seated balance EOB.
--- NOTE | 2023-11-28 16:05 | PT.OTN ---
Current Diagnoses Paraplegia, unspecified (11/28/23) Other specified personal risk factors, not elsewhere classified (11/28/23) Other specified postprocedural states (11/28/23) Physical Therapy Treatment Note PT-OP-A Visit Information Start: 03/08/22 17:00 Freq: Status: Active Protocol: Document 11/28/23 15:19 DCW (Rec: 11/28/23 16:05 DCW [id number]) Out-Patient Physical Therapy Visit Information Visit Information Visit Type Treatment Note Visit Start Time 15:19 Visit Stop Time 16:00 Visit Number 41 Number of TERMITE TECHNICIAN Visits 0 Evaluation Information Evaluation Date 03/08/22 PT-OP-B Current Condition Start: 03/08/22 17:00 Freq: Status: Active Protocol: Document 03/08/22 11:15 DCW (Rec: 03/08/22 17:11 DCW [id number]) Current Condition History of Current Condition Onset Date 12/16/21 Current Complaints Paraplegia History of Current Condition Pt is a 71 year old male with a very unfortunate medical history. Pt was hiking [employer] on 12/16/21 with a friend, finished up, drive back to his friend's home to drop him off, and noticed his left leg was collapsing. By the time pt drove home, both legs were giving out and numb. Pt was suddenly paralized from the waist down, was taken to the ED, and was flown to [facility] on 12/17/21. The following day, he underwent a laminectomy to relieve pressure from the thoracic epidural hematoma which had developed following his hike, which was pressing on his spinal cord. Following surgery , pt was in recovery for a week and was then transfered to rehab for 20 days, when he was finally discharged home in a wheelchair on 01/19/22. Pt reports his surgeon informed him that it is a possibility that he gets some return of nerve function. Has experienced some changes in his right LE, but has no motor function at this time from ~ T10 down. Minimal sensory return on right side, none on left. Pt has been anxious to get in to therapy and do everything he can to help return to function. Pt's , who attended his evaluation, notes that she has been doing a lot of PROM in his legs at night to keep everything moving. Pt can feel some stretching during PROM in his right leg. Pt has additionally already started occupational therapy, and has been practicing some seated stabilization. Pt transfers with a slide board, but notes it is difficult to do into his car, because he has to transfer upward at an incline. Treatment Goals Patient/Caregiver Goals I will do anything possible to get out of this wheelchair. My neurologist told me he has seen people recover from this , so I am not giving up hope. PT-OP-C Subjective Start: 03/08/22 17:00 Freq: Status: Active Protocol: Document 11/28/23 15:19 DCW (Rec: 11/28/23 16:05 DCW [id number]) OP-PT Subjective Patient Comments Patient Comments Pt notes he may need to leave early today. PT-OP-G Mobility & Gait Start: 03/08/22 17:00 Freq: Status: Active Protocol: Document 10/27/23 14:30 DCW (Rec: 10/27/23 14:56 DCW [id number]) OP Mobility Evaluation Transfers Bed to Chair Transfers Transfers using UE, improved with side-side movement, requires verbal cues for LE positioning Car Transfers uses slide board, stabilizes front to back and prevent slide down board Wheelchair Management Type of Wheelchair Manual w/c Assessment Details Unable to perform tilt back to get over curb with stability PT-OP-H Neuro Start: 03/08/22 17:00 Freq: Status: Active Protocol: Document 10/27/23 14:30 DCW (Rec: 10/27/23 14:56 DCW [id number]) Sensation Evaluation Gross Sensation Gross Sensation Left LE Impaired,Right LE Impaired,Trunk Impaired Sensation Description Paresthesia,Numbness,Tingling, Pins & [place],Burning Dermatome Impairments L1,L2,L3,L4,L5,S1,S2,S3,S4-5 Location Details Right Leg Light Touch Impaired Sharp/Dull Impaired Deep Pressure Intact/Normal Hot/Cold Absent Protective Sensation Absent Proprioception (Position) Impaired Kinesthesia (Movement) Impaired Two-Point Discrimination Impaired Tactile Localization Impaired Stereognosis Impaired Left Leg Light Touch Absent Sharp/Dull Absent Deep Pressure Impaired Hot/Cold Impaired Protective Sensation Absent Proprioception (Position) Absent Kinesthesia (Movement) Impaired Two-Point Discrimination Absent Tactile Localization Absent Stereognosis Absent Comments Summary Comments B protective reflex vs sharp present Deep Tendon Reflex & Clonus Assessment Deep Tendon Reflex Right Achilles Deep Tendon Reflex 1+ Diminished Right Patellar Deep Tendon Reflex 2+ Normal Left Achilles Deep Tendon Reflex 1+ Diminished Left Patellar Deep Tendon Reflex 1+ Diminished Muscle Tone Tone Assessment Right Lower Extremity Flexor Tone Description Moderate Hypertonicity Extensor Tone Description Moderate Hypertonicity Left Lower Extremity Flexor Tone Description Moderate Hypertonicity Extensor Tone Description Moderate Hypertonicity PT-OP-J Posture/Palpation/Skin Start: 03/08/22 17:00 Freq: Status: Active Protocol: Document 10/27/23 14:30 DCW (Rec: 10/27/23 14:56 DCW [id number]) Posture Evaluation Comments Posture Comments Sitting EOB with good core control and no instability. Recovers from most directional pushing. Improved ability to reach outside of base of support. PT-OP-M Strength Start: 08/21/22 15:38 Freq: Status: Active Protocol: Document 10/27/23 14:30 DCW (Rec: 10/27/23 14:56 DCW [id number]) Hip Strength Hip Manual Muscle Testing Right Flexion (L2) 1 Trace Extension (S1) 2- Poor- Adduction 2- Poor- Left Flexion (L2) 1 Trace Extension (S1) 2- Poor- Adduction 1 Trace Knee Strength Knee Manual Muscle Testing Right Flexion (S2) 2- Poor- Extension (L3) 1 Trace Left Flexion (S2) 1 Trace Extension (L3) 1 Trace Ankle/Foot Strength Ankle and Foot Manual Muscle Testing Right Plantarflexion (S1) 2- Poor- Left Plantarflexion (S1) 1 Trace PT-OP-Q Treatments Start: 03/08/22 17:00 Freq: Status: Active Protocol: Document 11/28/23 15:19 DCW (Rec: 11/28/23 16:05 DCW [id number]) Cardio Equipment Recumbent Elliptical (BiodARI) Duration (Minutes) 10 Resistance 11 Seat Position 10 Other pt cued to try pushing through heels Neuro Re-Education Treatment Balance Activities Seated balance Details Seated EOB Equipment Sword fighting /c PVC (1#), Target tapping PT-OP-T Assessment and Plan Start: 03/08/22 17:00 Freq: Status: Active Protocol: Document 11/28/23 15:19 DCW (Rec: 11/28/23 16:05 DCW [id number]) Physical Therapy Assessment Impairments Impairments Activity Tolerance,Balance, Coordination,Functional Activities,Functional Mobility ,Gait,Integument,Sensation, Soft Tissue Mobility,Strength, Tone,Transfers Goals Three Impairment Pt does not have any motor function throughout bilateral LEs Short Term Goal (STG) Pt to demonstrate 1/5 trace motor contraction in at least one quad in order to begin focus on LE mobility if neural functional return begins. STG Duration Met Senior Care Goal (LTG) Pt to demonstrate right quad strength to at least 2/5, demonstrating movement into ROM in an antigravity position LTG Duration 01/25/24 Two Impairment Pt struggles with lateral transfer/scooting along EOB Information Architect Goal (LTG) Pt to perform lateral scoot transfer using proper technique without any verbal cues 4x in a row. LTG Duration 01/25/24 One Impairment Pt does not have an appropriate home exercise program Short Term Goal (STG) Pt to be independent and compliant with an appropriate HEP 07/30/22: progressing: resisted tricep ext, OH raises in w/c, supine HABD, added scaption OH B #2. STG Duration 01/25/24 Assessment Summary Assessment Spent most of today working on seated balance, pt using single UE to stabilize against thigh, then attempting to keep both hands on PVC. Struggled with core control, able to self-correct ~40% of the time Physical Therapy Plan Frequency and Duration Frequency of Treatment 2x/Week Plan of Care Start Date 10/27/23 Plan of Care End Date 01/25/24 Therapeutic Interventions Therapeutic Interventions Aquatic Therapy,Balance Training,Coordination Training ,Gait Training,Home Exercise Program,Manual Therapy, Neuromuscular Re-education, Orthotic/Prosthetic Management ,Patient/Caregiver Education, Self-Care/Home Management, Sensory Integration,Soft Tissue Mobilization, Therapeutic Activities, Therapeutic Exercises, Wheelchair Management Next Visit Focus/Plan Next Note Type Treatment Note Next Visit Plan Wheelchair wheelies, curb management POC: Continue UE and core strengthening, LE PROM and manual stretching. Transfers, mobility, LE ROM, pt will benefit from continued breakdown of transfers to improve efficiency and mechanics, as well as working on more seated balance EOB.
--- NOTE | 2023-12-02 15:26 | PT.OTN ---
Current Diagnoses Paraplegia, unspecified (12/02/23) Other specified personal risk factors, not elsewhere classified (12/02/23) Other specified postprocedural states (12/02/23) Physical Therapy Treatment Note PT-OP-A Visit Information Start: 03/08/22 17:00 Freq: Status: Active Protocol: Document 12/02/23 14:32 DCW (Rec: 12/02/23 15:26 DCW [id number]) Out-Patient Physical Therapy Visit Information Visit Information Visit Type Treatment Note Visit Start Time 14:32 Visit Stop Time 15:15 Visit Number 43 Number of ATG ARCHITECT Visits 0 Evaluation Information Evaluation Date 03/08/22 PT-OP-B Current Condition Start: 03/08/22 17:00 Freq: Status: Active Protocol: Document 03/08/22 11:15 DCW (Rec: 03/08/22 17:11 DCW [id number]) Current Condition History of Current Condition Onset Date 12/16/21 Current Complaints Paraplegia History of Current Condition Pt is a 71 year old male with a very unfortunate medical history. Pt was hiking [employer] on 12/16/21 with a friend, finished up, drive back to his friend's home to drop him off, and noticed his left leg was collapsing. By the time pt drove home, both legs were giving out and numb. Pt was suddenly paralized from the waist down, was taken to the ED, and was flown to [facility] on 12/17/21. The following day, he underwent a laminectomy to relieve pressure from the thoracic epidural hematoma which had developed following his hike, which was pressing on his spinal cord. Following surgery , pt was in recovery for a week and was then transfered to rehab for 20 days, when he was finally discharged home in a wheelchair on 01/19/22. Pt reports his surgeon informed him that it is a possibility that he gets some return of nerve function. Has experienced some changes in his right LE, but has no motor function at this time from ~ T10 down. Minimal sensory return on right side, none on left. Pt has been anxious to get in to therapy and do everything he can to help return to function. Pt's , who attended his evaluation, notes that she has been doing a lot of PROM in his legs at night to keep everything moving. Pt can feel some stretching during PROM in his right leg. Pt has additionally already started occupational therapy, and has been practicing some seated stabilization. Pt transfers with a slide board, but notes it is difficult to do into his car, because he has to transfer upward at an incline. Treatment Goals Patient/Caregiver Goals I will do anything possible to get out of this wheelchair. My neurologist told me he has seen people recover from this , so I am not giving up hope. PT-OP-C Subjective Start: 03/08/22 17:00 Freq: Status: Active Protocol: Document 12/02/23 14:32 DCW (Rec: 12/02/23 15:26 DCW [id number]) OP-PT Subjective Patient Comments Patient Comments Pt notes he has been busier than usual recently. PT-OP-G Mobility & Gait Start: 03/08/22 17:00 Freq: Status: Active Protocol: Document 10/27/23 14:30 DCW (Rec: 10/27/23 14:56 DCW [id number]) OP Mobility Evaluation Transfers Bed to Chair Transfers Transfers using UE, improved with side-side movement, requires verbal cues for LE positioning Car Transfers uses slide board, stabilizes front to back and prevent slide down board Wheelchair Management Type of Wheelchair Manual w/c Assessment Details Unable to perform tilt back to get over curb with stability PT-OP-H Neuro Start: 03/08/22 17:00 Freq: Status: Active Protocol: Document 10/27/23 14:30 DCW (Rec: 10/27/23 14:56 DCW [id number]) Sensation Evaluation Gross Sensation Gross Sensation Left LE Impaired,Right LE Impaired,Trunk Impaired Sensation Description Paresthesia,Numbness,Tingling, Pins & [place],Burning Dermatome Impairments L1,L2,L3,L4,L5,S1,S2,S3,S4-5 Location Details Right Leg Light Touch Impaired Sharp/Dull Impaired Deep Pressure Intact/Normal Hot/Cold Absent Protective Sensation Absent Proprioception (Position) Impaired Kinesthesia (Movement) Impaired Two-Point Discrimination Impaired Tactile Localization Impaired Stereognosis Impaired Left Leg Light Touch Absent Sharp/Dull Absent Deep Pressure Impaired Hot/Cold Impaired Protective Sensation Absent Proprioception (Position) Absent Kinesthesia (Movement) Impaired Two-Point Discrimination Absent Tactile Localization Absent Stereognosis Absent Comments Summary Comments B protective reflex vs sharp present Deep Tendon Reflex & Clonus Assessment Deep Tendon Reflex Right Achilles Deep Tendon Reflex 1+ Diminished Right Patellar Deep Tendon Reflex 2+ Normal Left Achilles Deep Tendon Reflex 1+ Diminished Left Patellar Deep Tendon Reflex 1+ Diminished Muscle Tone Tone Assessment Right Lower Extremity Flexor Tone Description Moderate Hypertonicity Extensor Tone Description Moderate Hypertonicity Left Lower Extremity Flexor Tone Description Moderate Hypertonicity Extensor Tone Description Moderate Hypertonicity PT-OP-J Posture/Palpation/Skin Start: 03/08/22 17:00 Freq: Status: Active Protocol: Document 10/27/23 14:30 DCW (Rec: 10/27/23 14:56 DCW [id number]) Posture Evaluation Comments Posture Comments Sitting EOB with good core control and no instability. Recovers from most directional pushing. Improved ability to reach outside of base of support. PT-OP-M Strength Start: 08/21/22 15:38 Freq: Status: Active Protocol: Document 10/27/23 14:30 DCW (Rec: 10/27/23 14:56 DCW [id number]) Hip Strength Hip Manual Muscle Testing Right Flexion (L2) 1 Trace Extension (S1) 2- Poor- Adduction 2- Poor- Left Flexion (L2) 1 Trace Extension (S1) 2- Poor- Adduction 1 Trace Knee Strength Knee Manual Muscle Testing Right Flexion (S2) 2- Poor- Extension (L3) 1 Trace Left Flexion (S2) 1 Trace Extension (L3) 1 Trace Ankle/Foot Strength Ankle and Foot Manual Muscle Testing Right Plantarflexion (S1) 2- Poor- Left Plantarflexion (S1) 1 Trace PT-OP-Q Treatments Start: 03/08/22 17:00 Freq: Status: Active Protocol: Document 12/02/23 14:32 DCW (Rec: 12/02/23 15:26 DCW [id number]) Cardio Equipment Recumbent Elliptical (Biodex) Duration (Minutes) 10 Resistance 11 Seat Position 10 Other pt cued to try pushing through heels Gym Equipment Shuttle Recovery Bilateral Squats Details with BUE assist on thighs Resistance 25# assisted->12# unassisted Shuttle Recovery Platform Stable Reps/Time focus on eccentric lowering Neuro Re-Education Treatment Balance Activities Seated balance Details Seated EOB Equipment Sword fighting /c PVC (1#), Target tapping PT-OP-T Assessment and Plan Start: 03/08/22 17:00 Freq: Status: Active Protocol: Document 12/02/23 14:32 DC (Rec: 12/02/23 15:26 DC [id number]) Physical Therapy Assessment Impairments Impairments Activity Tolerance,Balance, Coordination,Functional Activities,Functional Mobility ,Gait,Integument,Sensation, Soft Tissue Mobility,Strength, Tone,Transfers Goals Three Impairment Pt does not have any motor function throughout bilateral LEs Short Term Goal (STG) Pt to demonstrate 1/5 trace motor contraction in at least one quad in order to begin focus on LE mobility if neural functional return begins. STG Duration Met Half-Way Goal (LTG) Pt to demonstrate right quad strength to at least 2/5, demonstrating movement into ROM in an antigravity position LTG Duration 01/25/24 Two Impairment Pt struggles with lateral transfer/scooting along EOB Offshore Wind Operations Manager Goal (LTG) Pt to perform lateral scoot transfer using proper technique without any verbal cues 4x in a row. LTG Duration 01/25/24 One Impairment Pt does not have an appropriate home exercise program Short Term Goal (STG) Pt to be independent and compliant with an appropriate HEP 07/30/22: progressing: resisted tricep ext, OH raises in w/c, supine HABD, added scaption OH B #2. STG Duration 01/25/24 Assessment Summary Assessment First return to leg press for ~2 months, did well with eccentric lowering, continues to struggle with concentric quad strength. Improving with transfers, some challenges with seated balance today. Physical Therapy Plan Frequency and Duration Frequency of Treatment 2x/Week Plan of Care Start Date 10/27/23 Plan of Care End Date 01/25/24 Therapeutic Interventions Therapeutic Interventions Aquatic Therapy,Balance Training,Coordination Training ,Gait Training,Home Exercise Program,Manual Therapy, Neuromuscular Re-education, Orthotic/Prosthetic Management ,Patient/Caregiver Education, Self-Care/Home Management, Sensory Integration,Soft Tissue Mobilization, Therapeutic Activities, Therapeutic Exercises, Wheelchair Management Next Visit Focus/Plan Next Note Type Treatment Note Next Visit Plan Wheelchair wheelies, curb management POC: Continue UE and core strengthening, LE PROM and manual stretching. Transfers, mobility, LE ROM, pt will benefit from continued breakdown of transfers to improve efficiency and mechanics, as well as working on more seated balance EOB.
--- NOTE | 2023-12-04 15:17 | PT.OTN ---
Current Diagnoses Paraplegia, unspecified (12/04/23) Other specified personal risk factors, not elsewhere classified (12/04/23) Other specified postprocedural states (12/04/23) Physical Therapy Treatment Note PT-OP-A Visit Information Start: 03/08/22 17:00 Freq: Status: Active Protocol: Document 12/04/23 14:32 DCW (Rec: 12/04/23 15:17 DCW [id number]) Out-Patient Physical Therapy Visit Information Visit Information Visit Type Treatment Note Visit Start Time 14:32 Visit Stop Time 15:15 Visit Number [id number] Number of TELEMARKETING AGENT Visits 0 Evaluation Information Evaluation Date 03/08/22 PT-OP-B Current Condition Start: 03/08/22 17:00 Freq: Status: Active Protocol: Document 03/08/22 11:15 DCW (Rec: 03/08/22 17:11 DCW [id number]) Current Condition History of Current Condition Onset Date 12/16/21 Current Complaints Paraplegia History of Current Condition Pt is a 71 year old male with a very unfortunate medical history. Pt was hiking [employer] on 12/16/21 with a friend, finished up, drive back to his friend's home to drop him off, and noticed his left leg was collapsing. By the time pt drove home, both legs were giving out and numb. Pt was suddenly paralized from the waist down, was taken to the ED, and was flown to [facility] on 12/17/21. The following day, he underwent a laminectomy to relieve pressure from the thoracic epidural hematoma which had developed following his hike, which was pressing on his spinal cord. Following surgery , pt was in recovery for a week and was then transfered to rehab for 20 days, when he was finally discharged home in a wheelchair on 01/19/22. Pt reports his surgeon informed him that it is a possibility that he gets some return of nerve function. Has experienced some changes in his right LE, but has no motor function at this time from ~ T10 down. Minimal sensory return on right side, none on left. Pt has been anxious to get in to therapy and do everything he can to help return to function. Pt's , who attended his evaluation, notes that she has been doing a lot of PROM in his legs at night to keep everything moving. Pt can feel some stretching during PROM in his right leg. Pt has additionally already started occupational therapy, and has been practicing some seated stabilization. Pt transfers with a slide board, but notes it is difficult to do into his car, because he has to transfer upward at an incline. Treatment Goals Patient/Caregiver Goals I will do anything possible to get out of this wheelchair. My neurologist told me he has seen people recover from this , so I am not giving up hope. PT-OP-C Subjective Start: 03/08/22 17:00 Freq: Status: Active Protocol: Document 12/04/23 14:32 DCW (Rec: 12/04/23 15:17 DCW [id number]) OP-PT Subjective Patient Comments Patient Comments Man, I am getting better. It' s slow as hell, but I am getting better. PT-OP-G Mobility & Gait Start: 03/08/22 17:00 Freq: Status: Active Protocol: Document 10/27/23 14:30 DCW (Rec: 10/27/23 14:56 DCW [id number]) OP Mobility Evaluation Transfers Bed to Chair Transfers Transfers using UE, improved with side-side movement, requires verbal cues for LE positioning Car Transfers uses slide board, stabilizes front to back and prevent slide down board Wheelchair Management Type of Wheelchair Manual w/c Assessment Details Unable to perform tilt back to get over curb with stability PT-OP-H Neuro Start: 03/08/22 17:00 Freq: Status: Active Protocol: Document 10/27/23 14:30 DCW (Rec: 10/27/23 14:56 DCW [id number]) Sensation Evaluation Gross Sensation Gross Sensation Left LE Impaired,Right LE Impaired,Trunk Impaired Sensation Description Paresthesia,Numbness,Tingling, Pins & [place],Burning Dermatome Impairments L1,L2,L3,L4,L5,S1,S2,S3,S4-5 Location Details Right Leg Light Touch Impaired Sharp/Dull Impaired Deep Pressure Intact/Normal Hot/Cold Absent Protective Sensation Absent Proprioception (Position) Impaired Kinesthesia (Movement) Impaired Two-Point Discrimination Impaired Tactile Localization Impaired Stereognosis Impaired Left Leg Light Touch Absent Sharp/Dull Absent Deep Pressure Impaired Hot/Cold Impaired Protective Sensation Absent Proprioception (Position) Absent Kinesthesia (Movement) Impaired Two-Point Discrimination Absent Tactile Localization Absent Stereognosis Absent Comments Summary Comments B protective reflex vs sharp present Deep Tendon Reflex & Clonus Assessment Deep Tendon Reflex Right Achilles Deep Tendon Reflex 1+ Diminished Right Patellar Deep Tendon Reflex 2+ Normal Left Achilles Deep Tendon Reflex 1+ Diminished Left Patellar Deep Tendon Reflex 1+ Diminished Muscle Tone Tone Assessment Right Lower Extremity Flexor Tone Description Moderate Hypertonicity Extensor Tone Description Moderate Hypertonicity Left Lower Extremity Flexor Tone Description Moderate Hypertonicity Extensor Tone Description Moderate Hypertonicity PT-OP-J Posture/Palpation/Skin Start: 03/08/22 17:00 Freq: Status: Active Protocol: Document 10/27/23 14:30 DCW (Rec: 10/27/23 14:56 DCW [id number]) Posture Evaluation Comments Posture Comments Sitting EOB with good core control and no instability. Recovers from most directional pushing. Improved ability to reach outside of base of support. PT-OP-M Strength Start: 08/21/22 15:38 Freq: Status: Active Protocol: Document 10/27/23 14:30 DCW (Rec: 10/27/23 14:56 DCW [id number]) Hip Strength Hip Manual Muscle Testing Right Flexion (L2) 1 Trace Extension (S1) 2- Poor- Adduction 2- Poor- Left Flexion (L2) 1 Trace Extension (S1) 2- Poor- Adduction 1 Trace Knee Strength Knee Manual Muscle Testing Right Flexion (S2) 2- Poor- Extension (L3) 1 Trace Left Flexion (S2) 1 Trace Extension (L3) 1 Trace Ankle/Foot Strength Ankle and Foot Manual Muscle Testing Right Plantarflexion (S1) 2- Poor- Left Plantarflexion (S1) 1 Trace PT-OP-Q Treatments Start: 03/08/22 17:00 Freq: Status: Active Protocol: Document 12/04/23 14:32 DCW (Rec: 12/04/23 15:17 DCW [id number]) Cardio Equipment Recumbent Elliptical (Biodex) Duration (Minutes) 10 Resistance 11 Seat Position 10 Other pt cued to try pushing through heels Therapeutic Exercises Other Exercises Thread the needle Other Exercise Name Thread the needle Side bilateral Comments Quadruped - Therapist assisted Long-kneeling Other Exercise Name Long kneeling /c 12 step support Equipment Used 12step Reps/Minutes x3 ea Comments cues for breath Approximation Other Exercise Name Hip approximation in quad, therapist overpressure through hips quadruped child's pose Other Exercise Name quadruped child's pose and sit back stretching Equipment Used two pillows under hips, GB Reps/Minutes 2 min Comments cued reach UEs out front quadruped Resistance CGA Reps/Minutes 5x2 sets Comments pt self heavy support BUEs Therapeutic Activity Therapeutic Activity supine>prone>quadruped Name Mod into quadruped/ Min quad to SL, heavy pt BUE support Reps/Minutes x1 Comments upper trunk support to allow UEs to get under trunk and good UE lift into quadruped then only CGA cues for chest lift serratus press support, support/lower abdomen, good feedback low back and hip stretching Neuro Re-Education Treatment Balance Activities Seated balance Details Seated EOB Equipment Sword fighting /c PVC (1#), Target tapping PT-OP-T Assessment and Plan Start: 03/08/22 17:00 Freq: Status: Active Protocol: Document 12/04/23 14:32 DCW (Rec: 12/04/23 15:17 DCW [id number]) Physical Therapy Assessment Impairments Impairments Activity Tolerance,Balance, Coordination,Functional Activities,Functional Mobility ,Gait,Integument,Sensation, Soft Tissue Mobility,Strength, Tone,Transfers Goals Three Impairment Pt does not have any motor function throughout bilateral LEs Short Term Goal (STG) Pt to demonstrate 1/5 trace motor contraction in at least one quad in order to begin focus on LE mobility if neural functional return begins. STG Duration Met Assisted Goal (LTG) Pt to demonstrate right quad strength to at least 2/5, demonstrating movement into ROM in an antigravity position LTG Duration 01/25/24 Two Impairment Pt struggles with lateral transfer/scooting along EOB Assisted Goal (LTG) Pt to perform lateral scoot transfer using proper technique without any verbal cues 4x in a row. LTG Duration 01/25/24 One Impairment Pt does not have an appropriate home exercise program Short Term Goal (STG) Pt to be independent and compliant with an appropriate HEP 07/30/22: progressing: resisted tricep ext, OH raises in w/c, supine HABD, added scaption OH B #2. STG Duration 01/25/24 Assessment Summary Assessment Pt performed bed mobility better than any prior time today, able to get himself sitting EOB->prone for first time, still required min Ax1 to get into quadruped. Following activity, transitioned from quadruped-> sitting EOB SBA. Physical Therapy Plan Frequency and Duration Frequency of Treatment 2x/Week Plan of Care Start Date 10/27/23 Plan of Care End Date 01/25/24 Therapeutic Interventions Therapeutic Interventions Aquatic Therapy,Balance Training,Coordination Training ,Gait Training,Home Exercise Program,Manual Therapy, Neuromuscular Re-education, Orthotic/Prosthetic Management ,Patient/Caregiver Education, Self-Care/Home Management, Sensory Integration,Soft Tissue Mobilization, Therapeutic Activities, Therapeutic Exercises, Wheelchair Management Next Visit Focus/Plan Next Note Type Treatment Note Next Visit Plan Wheelchair wheelies, curb management POC: Continue UE and core strengthening, LE PROM and manual stretching. Transfers, mobility, LE ROM, pt will benefit from continued breakdown of transfers to improve efficiency and mechanics, as well as working on more seated balance EOB.
--- NOTE | 2023-12-11 15:18 | PT.OTN ---
Current Diagnoses Paraplegia, unspecified (12/11/23) Other specified personal risk factors, not elsewhere classified (12/11/23) Other specified postprocedural states (12/11/23) Physical Therapy Treatment Note PT-OP-A Visit Information Start: 03/08/22 17:00 Freq: Status: Active Protocol: Document 12/11/23 14:34 DCW (Rec: 12/11/23 15:18 DCW [id number]) Out-Patient Physical Therapy Visit Information Visit Information Visit Type Treatment Note Visit Start Time 14:34 Visit Stop Time 15:15 Visit Number [id number] Number of EMAIL CAMPAIGN MANAGER Visits 0 Evaluation Information Evaluation Date 03/08/22 PT-OP-B Current Condition Start: 03/08/22 17:00 Freq: Status: Active Protocol: Document 03/08/22 11:15 DCW (Rec: 03/08/22 17:11 DCW [id number]) Current Condition History of Current Condition Onset Date 12/16/21 Current Complaints Paraplegia History of Current Condition Pt is a 71 year old male with a very unfortunate medical history. Pt was hiking [employer] on 12/16/21 with a friend, finished up, drive back to his friend's home to drop him off, and noticed his left leg was collapsing. By the time pt drove home, both legs were giving out and numb. Pt was suddenly paralized from the waist down, was taken to the ED, and was flown to [facility] on 12/17/21. The following day, he underwent a laminectomy to relieve pressure from the thoracic epidural hematoma which had developed following his hike, which was pressing on his spinal cord. Following surgery , pt was in recovery for a week and was then transfered to rehab for 20 days, when he was finally discharged home in a wheelchair on 01/19/22. Pt reports his surgeon informed him that it is a possibility that he gets some return of nerve function. Has experienced some changes in his right LE, but has no motor function at this time from ~ T10 down. Minimal sensory return on right side, none on left. Pt has been anxious to get in to therapy and do everything he can to help return to function. Pt's , who attended his evaluation, notes that she has been doing a lot of PROM in his legs at night to keep everything moving. Pt can feel some stretching during PROM in his right leg. Pt has additionally already started occupational therapy, and has been practicing some seated stabilization. Pt transfers with a slide board, but notes it is difficult to do into his car, because he has to transfer upward at an incline. Treatment Goals Patient/Caregiver Goals I will do anything possible to get out of this wheelchair. My neurologist told me he has seen people recover from this , so I am not giving up hope. PT-OP-C Subjective Start: 03/08/22 17:00 Freq: Status: Active Protocol: Document 12/11/23 14:34 DCW (Rec: 12/11/23 15:18 DCW [id number]) OP-PT Subjective Patient Comments Patient Comments Pt feeling pretty good, I'm still puzzled why some nights I sleep like I'm in a tomb, and other nights my legs are rocking and rolling all night and it disrupts my sleep. PT-OP-G Mobility & Gait Start: 03/08/22 17:00 Freq: Status: Active Protocol: Document 10/27/23 14:30 DCW (Rec: 10/27/23 14:56 DCW [id number]) OP Mobility Evaluation Transfers Bed to Chair Transfers Transfers using UE, improved with side-side movement, requires verbal cues for LE positioning Car Transfers uses slide board, stabilizes front to back and prevent slide down board Wheelchair Management Type of Wheelchair Manual w/c Assessment Details Unable to perform tilt back to get over curb with stability PT-OP-H Neuro Start: 03/08/22 17:00 Freq: Status: Active Protocol: Document 10/27/23 14:30 DCW (Rec: 10/27/23 14:56 DCW [id number]) Sensation Evaluation Gross Sensation Gross Sensation Left LE Impaired,Right LE Impaired,Trunk Impaired Sensation Description Paresthesia,Numbness,Tingling, Pins & [place],Burning Dermatome Impairments L1,L2,L3,L4,L5,S1,S2,S3,S4-5 Location Details Right Leg Light Touch Impaired Sharp/Dull Impaired Deep Pressure Intact/Normal Hot/Cold Absent Protective Sensation Absent Proprioception (Position) Impaired Kinesthesia (Movement) Impaired Two-Point Discrimination Impaired Tactile Localization Impaired Stereognosis Impaired Left Leg Light Touch Absent Sharp/Dull Absent Deep Pressure Impaired Hot/Cold Impaired Protective Sensation Absent Proprioception (Position) Absent Kinesthesia (Movement) Impaired Two-Point Discrimination Absent Tactile Localization Absent Stereognosis Absent Comments Summary Comments B protective reflex vs sharp present Deep Tendon Reflex & Clonus Assessment Deep Tendon Reflex Right Achilles Deep Tendon Reflex 1+ Diminished Right Patellar Deep Tendon Reflex 2+ Normal Left Achilles Deep Tendon Reflex 1+ Diminished Left Patellar Deep Tendon Reflex 1+ Diminished Muscle Tone Tone Assessment Right Lower Extremity Flexor Tone Description Moderate Hypertonicity Extensor Tone Description Moderate Hypertonicity Left Lower Extremity Flexor Tone Description Moderate Hypertonicity Extensor Tone Description Moderate Hypertonicity PT-OP-J Posture/Palpation/Skin Start: 03/08/22 17:00 Freq: Status: Active Protocol: Document 10/27/23 14:30 DCW (Rec: 10/27/23 14:56 DCW [id number]) Posture Evaluation Comments Posture Comments Sitting EOB with good core control and no instability. Recovers from most directional pushing. Improved ability to reach outside of base of support. PT-OP-M Strength Start: 08/21/22 15:38 Freq: Status: Active Protocol: Document 10/27/23 14:30 DCW (Rec: 10/27/23 14:56 DCW [id number]) Hip Strength Hip Manual Muscle Testing Right Flexion (L2) 1 Trace Extension (S1) 2- Poor- Adduction 2- Poor- Left Flexion (L2) 1 Trace Extension (S1) 2- Poor- Adduction 1 Trace Knee Strength Knee Manual Muscle Testing Right Flexion (S2) 2- Poor- Extension (L3) 1 Trace Left Flexion (S2) 1 Trace Extension (L3) 1 Trace Ankle/Foot Strength Ankle and Foot Manual Muscle Testing Right Plantarflexion (S1) 2- Poor- Left Plantarflexion (S1) 1 Trace PT-OP-Q Treatments Start: 03/08/22 17:00 Freq: Status: Active Protocol: Document 12/11/23 14:34 DCW (Rec: 12/11/23 15:18 DCW [id number]) Cardio Equipment Recumbent Elliptical (Biodex) Duration (Minutes) 10 Resistance 11 Seat Position 10 Other pt cued to try pushing through heels Gym Equipment Shuttle Recovery Bilateral Squats Details with BUE assist on thighs Resistance 25# assisted->12# unassisted Shuttle Recovery Platform Stable Reps/Time focus on eccentric lowering Neuro Re-Education Treatment Balance Activities Seated balance Details Seated EOB Equipment Sword fighting /c PVC (1#), Target tapping balloon volleyball Details Balloon Volley /c PVC 1# Equipment seated edge of chair, gait belt, dowel PT-OP-T Assessment and Plan Start: 03/08/22 17:00 Freq: Status: Active Protocol: Document 12/11/23 14:34 DCW (Rec: 12/11/23 15:18 DCW [id number]) Physical Therapy Assessment Impairments Impairments Activity Tolerance,Balance, Coordination,Functional Activities,Functional Mobility ,Gait,Integument,Sensation, Soft Tissue Mobility,Strength, Tone,Transfers Goals Three Impairment Pt does not have any motor function throughout bilateral LEs Short Term Goal (STG) Pt to demonstrate 1/5 trace motor contraction in at least one quad in order to begin focus on LE mobility if neural functional return begins. STG Duration Met Spine Nurse Goal (LTG) Pt to demonstrate right quad strength to at least 2/5, demonstrating movement into ROM in an antigravity position LTG Duration 01/25/24 Two Impairment Pt struggles with lateral transfer/scooting along EOB Fci Goal (LTG) Pt to perform lateral scoot transfer using proper technique without any verbal cues 4x in a row. LTG Duration 01/25/24 One Impairment Pt does not have an appropriate home exercise program Short Term Goal (STG) Pt to be independent and compliant with an appropriate HEP 07/30/22: progressing: resisted tricep ext, OH raises in w/c, supine HABD, added scaption OH B #2. STG Duration 01/25/24 Assessment Summary Assessment Good work today with seated balance challenges, pt able to self-recover with most LOB. Discussed setting up ability to reach for targets at home while maintaining balance. Physical Therapy Plan Frequency and Duration Frequency of Treatment 2x/Week Plan of Care Start Date 10/27/23 Plan of Care End Date 01/25/24 Therapeutic Interventions Therapeutic Interventions Aquatic Therapy,Balance Training,Coordination Training ,Gait Training,Home Exercise Program,Manual Therapy, Neuromuscular Re-education, Orthotic/Prosthetic Management ,Patient/Caregiver Education, Self-Care/Home Management, Sensory Integration,Soft Tissue Mobilization, Therapeutic Activities, Therapeutic Exercises, Wheelchair Management Next Visit Focus/Plan Next Note Type Treatment Note Next Visit Plan Wheelchair wheelies, curb management POC: Continue UE and core strengthening, LE PROM and manual stretching. Transfers, mobility, LE ROM, pt will benefit from continued breakdown of transfers to improve efficiency and mechanics, as well as working on more seated balance EOB.
--- NOTE | 2023-12-18 15:16 | PT.OTN ---
Current Diagnoses Paraplegia, unspecified (12/18/23) Other specified personal risk factors, not elsewhere classified (12/18/23) Other specified postprocedural states (12/18/23) Physical Therapy Treatment Note PT-OP-A Visit Information Start: 03/08/22 17:00 Freq: Status: Active Protocol: Document 12/18/23 14:33 DCW (Rec: 12/18/23 15:16 DCW [id number]) Out-Patient Physical Therapy Visit Information Visit Information Visit Type Treatment Note Visit Start Time 14:33 Visit Stop Time 15:15 Visit Number [id number] Number of SYSTEM SUPPORT SPECIALIST Visits 0 Evaluation Information Evaluation Date 03/08/22 PT-OP-B Current Condition Start: 03/08/22 17:00 Freq: Status: Active Protocol: Document 03/08/22 11:15 DCW (Rec: 03/08/22 17:11 DCW [id number]) Current Condition History of Current Condition Onset Date 12/16/21 Current Complaints Paraplegia History of Current Condition Pt is a 71 year old male with a very unfortunate medical history. Pt was hiking [place] on 12/16/21 with a friend, finished up, drive back to his friend's home to drop him off, and noticed his left leg was collapsing. By the time pt drove home, both legs were giving out and numb. Pt was suddenly paralized from the waist down, was taken to the ED, and was flown to [facility] on 12/17/21. The following day, he underwent a laminectomy to relieve pressure from the thoracic epidural hematoma which had developed following his hike, which was pressing on his spinal cord. Following surgery , pt was in recovery for a week and was then transfered to rehab for 20 days, when he was finally discharged home in a wheelchair on 01/19/22. Pt reports his surgeon informed him that it is a possibility that he gets some return of nerve function. Has experienced some changes in his right LE, but has no motor function at this time from ~ T10 down. Minimal sensory return on right side, none on left. Pt has been anxious to get in to therapy and do everything he can to help return to function. Pt's , who attended his evaluation, notes that she has been doing a lot of PROM in his legs at night to keep everything moving. Pt can feel some stretching during PROM in his right leg. Pt has additionally already started occupational therapy, and has been practicing some seated stabilization. Pt transfers with a slide board, but notes it is difficult to do into his car, because he has to transfer upward at an incline. Treatment Goals Patient/Caregiver Goals I will do anything possible to get out of this wheelchair. My neurologist told me he has seen people recover from this , so I am not giving up hope. PT-OP-C Subjective Start: 03/08/22 17:00 Freq: Status: Active Protocol: Document 12/18/23 14:33 DCW (Rec: 12/18/23 15:16 DCW [id number]) OP-PT Subjective Patient Comments Patient Comments I just seem to be getting more and more feeling in this right side. PT-OP-G Mobility & Gait Start: 03/08/22 17:00 Freq: Status: Active Protocol: Document 10/27/23 14:30 DCW (Rec: 10/27/23 14:56 DCW [id number]) OP Mobility Evaluation Transfers Bed to Chair Transfers Transfers using UE, improved with side-side movement, requires verbal cues for LE positioning Car Transfers uses slide board, stabilizes front to back and prevent slide down board Wheelchair Management Type of Wheelchair Manual w/c Assessment Details Unable to perform tilt back to get over curb with stability PT-OP-H Neuro Start: 03/08/22 17:00 Freq: Status: Active Protocol: Document 10/27/23 14:30 DCW (Rec: 10/27/23 14:56 DCW [id number]) Sensation Evaluation Gross Sensation Gross Sensation Left LE Impaired,Right LE Impaired,Trunk Impaired Sensation Description Paresthesia,Numbness,Tingling, Pins & [employer],Burning Dermatome Impairments L1,L2,L3,L4,L5,S1,S2,S3,S4-5 Location Details Right Leg Light Touch Impaired Sharp/Dull Impaired Deep Pressure Intact/Normal Hot/Cold Absent Protective Sensation Absent Proprioception (Position) Impaired Kinesthesia (Movement) Impaired Two-Point Discrimination Impaired Tactile Localization Impaired Stereognosis Impaired Left Leg Light Touch Absent Sharp/Dull Absent Deep Pressure Impaired Hot/Cold Impaired Protective Sensation Absent Proprioception (Position) Absent Kinesthesia (Movement) Impaired Two-Point Discrimination Absent Tactile Localization Absent Stereognosis Absent Comments Summary Comments B protective reflex vs sharp present Deep Tendon Reflex & Clonus Assessment Deep Tendon Reflex Right Achilles Deep Tendon Reflex 1+ Diminished Right Patellar Deep Tendon Reflex 2+ Normal Left Achilles Deep Tendon Reflex 1+ Diminished Left Patellar Deep Tendon Reflex 1+ Diminished Muscle Tone Tone Assessment Right Lower Extremity Flexor Tone Description Moderate Hypertonicity Extensor Tone Description Moderate Hypertonicity Left Lower Extremity Flexor Tone Description Moderate Hypertonicity Extensor Tone Description Moderate Hypertonicity PT-OP-J Posture/Palpation/Skin Start: 03/08/22 17:00 Freq: Status: Active Protocol: Document 10/27/23 14:30 DCW (Rec: 10/27/23 14:56 DCW [id number]) Posture Evaluation Comments Posture Comments Sitting EOB with good core control and no instability. Recovers from most directional pushing. Improved ability to reach outside of base of support. PT-OP-M Strength Start: 08/21/22 15:38 Freq: Status: Active Protocol: Document 10/27/23 14:30 DCW (Rec: 10/27/23 14:56 DCW [id number]) Hip Strength Hip Manual Muscle Testing Right Flexion (L2) 1 Trace Extension (S1) 2- Poor- Adduction 2- Poor- Left Flexion (L2) 1 Trace Extension (S1) 2- Poor- Adduction 1 Trace Knee Strength Knee Manual Muscle Testing Right Flexion (S2) 2- Poor- Extension (L3) 1 Trace Left Flexion (S2) 1 Trace Extension (L3) 1 Trace Ankle/Foot Strength Ankle and Foot Manual Muscle Testing Right Plantarflexion (S1) 2- Poor- Left Plantarflexion (S1) 1 Trace PT-OP-Q Treatments Start: 03/08/22 17:00 Freq: Status: Active Protocol: Document 12/18/23 14:33 DCW (Rec: 12/18/23 15:16 DCW [id number]) Cardio Equipment Recumbent Elliptical (Biodex) Duration (Minutes) 10 Resistance 11 Seat Position 10 Gym Equipment Shuttle Recovery Bilateral Squats Details with BUE assist on thighs Resistance 12# assisted Shuttle Recovery Platform Stable Reps/Time focus on eccentric lowering Neuro Re-Education Treatment Balance Activities Seated balance Details Seated EOB Equipment Sword fighting /c PVC (1#), Target tapping balloon volleyball Details Balloon Volley /c PVC 1# Equipment seated edge of chair, gait belt, dowel PT-OP-T Assessment and Plan Start: 03/08/22 17:00 Freq: Status: Active Protocol: Document 12/18/23 14:33 DCW (Rec: 12/18/23 15:16 DCW [id number]) Physical Therapy Assessment Impairments Impairments Activity Tolerance,Balance, Coordination,Functional Activities,Functional Mobility ,Gait,Integument,Sensation, Soft Tissue Mobility,Strength, Tone,Transfers Goals Three Impairment Pt does not have any motor function throughout bilateral LEs Short Term Goal (STG) Pt to demonstrate 1/5 trace motor contraction in at least one quad in order to begin focus on LE mobility if neural functional return begins. STG Duration Met Clinical Admissions Manager Goal (LTG) Pt to demonstrate right quad strength to at least 2/5, demonstrating movement into ROM in an antigravity position LTG Duration 01/25/24 Two Impairment Pt struggles with lateral transfer/scooting along EOB Clinical Admissions Manager Goal (LTG) Pt to perform lateral scoot transfer using proper technique without any verbal cues 4x in a row. LTG Duration 01/25/24 One Impairment Pt does not have an appropriate home exercise program Short Term Goal (STG) Pt to be independent and compliant with an appropriate HEP 07/30/22: progressing: resisted tricep ext, OH raises in w/c, supine HABD, added scaption OH B #2. STG Duration 01/25/24 Assessment Summary Assessment Pt clearly struggling more with all activities today. Much greater struggle controlling descent on leg press, required increased assistance with transfers, had more difficulty with seated balance. Unclear any reason for this decline, would expect pt to be better with functional mobility next visit . If continues to decline, may need follow-up with PCP or neuro. Physical Therapy Plan Frequency and Duration Frequency of Treatment 2x/Week Plan of Care Start Date 10/27/23 Plan of Care End Date 01/25/24 Therapeutic Interventions Therapeutic Interventions Aquatic Therapy,Balance Training,Coordination Training ,Gait Training,Home Exercise Program,Manual Therapy, Neuromuscular Re-education, Orthotic/Prosthetic Management ,Patient/Caregiver Education, Self-Care/Home Management, Sensory Integration,Soft Tissue Mobilization, Therapeutic Activities, Therapeutic Exercises, Wheelchair Management Next Visit Focus/Plan Next Note Type Treatment Note Next Visit Plan Wheelchair wheelies, curb management POC: Continue UE and core strengthening, LE PROM and manual stretching. Transfers, mobility, LE ROM, pt will benefit from continued breakdown of transfers to improve efficiency and mechanics, as well as working on more seated balance EOB.
--- NOTE | 2024-01-08 11:18 | PT.OTN ---
Current Diagnoses Paraplegia, unspecified (01/08/24) Other specified personal risk factors, not elsewhere classified (01/08/24) Other specified postprocedural states (01/08/24) Physical Therapy Treatment Note PT-OP-A Visit Information Start: 03/08/22 17:00 Freq: Status: Active Protocol: Document 01/08/24 10:32 DCW (Rec: 01/08/24 11:18 DCW [id number]) Out-Patient Physical Therapy Visit Information Visit Information Visit Type Treatment Note Visit Start Time 10:32 Visit Stop Time 11:15 Visit Number [id number] Number of SUPERVISOR LONG GOODS Visits 0 Evaluation Information Evaluation Date 03/08/22 PT-OP-B Current Condition Start: 03/08/22 17:00 Freq: Status: Active Protocol: Document 03/08/22 11:15 DCW (Rec: 03/08/22 17:11 DCW [id number]) Current Condition History of Current Condition Onset Date 12/16/21 Current Complaints Paraplegia History of Current Condition Pt is a 71 year old male with a very unfortunate medical history. Pt was hiking [employer] on 12/16/21 with a friend, finished up, drive back to his friend's home to drop him off, and noticed his left leg was collapsing. By the time pt drove home, both legs were giving out and numb. Pt was suddenly paralized from the waist down, was taken to the ED, and was flown to [facility] on 12/17/21. The following day, he underwent a laminectomy to relieve pressure from the thoracic epidural hematoma which had developed following his hike, which was pressing on his spinal cord. Following surgery , pt was in recovery for a week and was then transfered to rehab for 20 days, when he was finally discharged home in a wheelchair on 01/19/22. Pt reports his surgeon informed him that it is a possibility that he gets some return of nerve function. Has experienced some changes in his right LE, but has no motor function at this time from ~ T10 down. Minimal sensory return on right side, none on left. Pt has been anxious to get in to therapy and do everything he can to help return to function. Pt's , who attended his evaluation, notes that she has been doing a lot of PROM in his legs at night to keep everything moving. Pt can feel some stretching during PROM in his right leg. Pt has additionally already started occupational therapy, and has been practicing some seated stabilization. Pt transfers with a slide board, but notes it is difficult to do into his car, because he has to transfer upward at an incline. Treatment Goals Patient/Caregiver Goals I will do anything possible to get out of this wheelchair. My neurologist told me he has seen people recover from this , so I am not giving up hope. PT-OP-C Subjective Start: 03/08/22 17:00 Freq: Status: Active Protocol: Document 01/08/24 10:32 DCW (Rec: 01/08/24 11:18 DCW [id number]) OP-PT Subjective Patient Comments Patient Comments Pt concerned that the back of his w/c is too reclined following his recent fall, feels like it tips too easily. PT-OP-G Mobility & Gait Start: 03/08/22 17:00 Freq: Status: Active Protocol: Document 10/27/23 14:30 DCW (Rec: 10/27/23 14:56 DCW [id number]) OP Mobility Evaluation Transfers Bed to Chair Transfers Transfers using UE, improved with side-side movement, requires verbal cues for LE positioning Car Transfers uses slide board, stabilizes front to back and prevent slide down board Wheelchair Management Type of Wheelchair Manual w/c Assessment Details Unable to perform tilt back to get over curb with stability PT-OP-H Neuro Start: 03/08/22 17:00 Freq: Status: Active Protocol: Document 10/27/23 14:30 DCW (Rec: 10/27/23 14:56 DCW [id number]) Sensation Evaluation Gross Sensation Gross Sensation Left LE Impaired,Right LE Impaired,Trunk Impaired Sensation Description Paresthesia,Numbness,Tingling, Pins & [place],Burning Dermatome Impairments L1,L2,L3,L4,L5,S1,S2,S3,S4-5 Location Details Right Leg Light Touch Impaired Sharp/Dull Impaired Deep Pressure Intact/Normal Hot/Cold Absent Protective Sensation Absent Proprioception (Position) Impaired Kinesthesia (Movement) Impaired Two-Point Discrimination Impaired Tactile Localization Impaired Stereognosis Impaired Left Leg Light Touch Absent Sharp/Dull Absent Deep Pressure Impaired Hot/Cold Impaired Protective Sensation Absent Proprioception (Position) Absent Kinesthesia (Movement) Impaired Two-Point Discrimination Absent Tactile Localization Absent Stereognosis Absent Comments Summary Comments B protective reflex vs sharp present Deep Tendon Reflex & Clonus Assessment Deep Tendon Reflex Right Achilles Deep Tendon Reflex 1+ Diminished Right Patellar Deep Tendon Reflex 2+ Normal Left Achilles Deep Tendon Reflex 1+ Diminished Left Patellar Deep Tendon Reflex 1+ Diminished Muscle Tone Tone Assessment Right Lower Extremity Flexor Tone Description Moderate Hypertonicity Extensor Tone Description Moderate Hypertonicity Left Lower Extremity Flexor Tone Description Moderate Hypertonicity Extensor Tone Description Moderate Hypertonicity PT-OP-J Posture/Palpation/Skin Start: 03/08/22 17:00 Freq: Status: Active Protocol: Document 10/27/23 14:30 DCW (Rec: 10/27/23 14:56 DCW [id number]) Posture Evaluation Comments Posture Comments Sitting EOB with good core control and no instability. Recovers from most directional pushing. Improved ability to reach outside of base of support. PT-OP-M Strength Start: 08/21/22 15:38 Freq: Status: Active Protocol: Document 10/27/23 14:30 DCW (Rec: 10/27/23 14:56 DCW [id number]) Hip Strength Hip Manual Muscle Testing Right Flexion (L2) 1 Trace Extension (S1) 2- Poor- Adduction 2- Poor- Left Flexion (L2) 1 Trace Extension (S1) 2- Poor- Adduction 1 Trace Knee Strength Knee Manual Muscle Testing Right Flexion (S2) 2- Poor- Extension (L3) 1 Trace Left Flexion (S2) 1 Trace Extension (L3) 1 Trace Ankle/Foot Strength Ankle and Foot Manual Muscle Testing Right Plantarflexion (S1) 2- Poor- Left Plantarflexion (S1) 1 Trace PT-OP-Q Treatments Start: 03/08/22 17:00 Freq: Status: Active Protocol: Document 01/08/24 10:32 DCW (Rec: 01/08/24 11:18 DCW [id number]) Cardio Equipment Recumbent Elliptical (Biodex) Duration (Minutes) 18 Resistance 11 Seat Position 10 Wheelchair Management Treatment Wheelchair Activity [place] Comments Trial of up/down grade in parking lot to ensure pt not leaned too far back. Seatback adjustments Activity Description Adjustment of recline level Comments limit retro fall with forward momentum PT-OP-T Assessment and Plan Start: 03/08/22 17:00 Freq: Status: Active Protocol: Document 01/08/24 10:32 DCW (Rec: 01/08/24 11:18 DCW [id number]) Physical Therapy Assessment Impairments Impairments Activity Tolerance,Balance, Coordination,Functional Activities,Functional Mobility ,Gait,Integument,Sensation, Soft Tissue Mobility,Strength, Tone,Transfers Goals Three Impairment Pt does not have any motor function throughout bilateral LEs Short Term Goal (STG) Pt to demonstrate 1/5 trace motor contraction in at least one quad in order to begin focus on LE mobility if neural functional return begins. STG Duration Met Detention Goal (LTG) Pt to demonstrate right quad strength to at least 2/5, demonstrating movement into ROM in an antigravity position LTG Duration 01/25/24 Two Impairment Pt struggles with lateral transfer/scooting along EOB Student Specialist Goal (LTG) Pt to perform lateral scoot transfer using proper technique without any verbal cues 4x in a row. LTG Duration 01/25/24 One Impairment Pt does not have an appropriate home exercise program Short Term Goal (STG) Pt to be independent and compliant with an appropriate HEP 07/30/22: progressing: resisted tricep ext, OH raises in w/c, supine HABD, added scaption OH B #2. STG Duration 01/25/24 Assessment Summary Assessment Focus today mainly on adjustments to w/c following fairly recent fall causing recline in seat back due to impact. Following adjustment, pt seated more upright in chair, was not tipping back onto tilt bars immediately upon forward propulsion. Pt very happy with results. Physical Therapy Plan Frequency and Duration Frequency of Treatment 2x/Week Plan of Care Start Date 10/27/23 Plan of Care End Date 01/25/24 Therapeutic Interventions Therapeutic Interventions Aquatic Therapy,Balance Training,Coordination Training ,Gait Training,Home Exercise Program,Manual Therapy, Neuromuscular Re-education, Orthotic/Prosthetic Management ,Patient/Caregiver Education, Self-Care/Home Management, Sensory Integration,Soft Tissue Mobilization, Therapeutic Activities, Therapeutic Exercises, Wheelchair Management Next Visit Focus/Plan Next Note Type Treatment Note Next Visit Plan Wheelchair wheelies, curb management POC: Continue UE and core strengthening, LE PROM and manual stretching. Transfers, mobility, LE ROM, pt will benefit from continued breakdown of transfers to improve efficiency and mechanics, as well as working on more seated balance EOB.
--- NOTE | 2024-01-13 15:07 | PT.OTN ---
Current Diagnoses Paraplegia, unspecified (01/13/24) Other specified personal risk factors, not elsewhere classified (01/13/24) Other specified postprocedural states (01/13/24) Physical Therapy Treatment Note PT-OP-A Visit Information Start: 03/08/22 17:00 Freq: Status: Active Protocol: Document 01/13/24 14:48 NBM (Rec: 01/16/24 15:07 NBM [id number]) Out-Patient Physical Therapy Visit Information Visit Information Visit Type Treatment Note Visit Start Time 13:50 Visit Stop Time 14:32 Visit Number [id number] Number of CREMATORY OPERATOR Visits 1 Evaluation Information Evaluation Date 03/08/22 PT-OP-B Current Condition Start: 03/08/22 17:00 Freq: Status: Active Protocol: Document 03/08/22 11:15 DCW (Rec: 03/08/22 17:11 DCW [id number]) Current Condition History of Current Condition Onset Date 12/16/21 Current Complaints Paraplegia History of Current Condition Pt is a 71 year old male with a very unfortunate medical history. Pt was hiking [place] on 12/16/21 with a friend, finished up, drive back to his friend's home to drop him off, and noticed his left leg was collapsing. By the time pt drove home, both legs were giving out and numb. Pt was suddenly paralized from the waist down, was taken to the ED, and was flown to [facility] on 12/17/21. The following day, he underwent a laminectomy to relieve pressure from the thoracic epidural hematoma which had developed following his hike, which was pressing on his spinal cord. Following surgery , pt was in recovery for a week and was then transfered to rehab for 20 days, when he was finally discharged home in a wheelchair on 01/19/22. Pt reports his surgeon informed him that it is a possibility that he gets some return of nerve function. Has experienced some changes in his right LE, but has no motor function at this time from ~ T10 down. Minimal sensory return on right side, none on left. Pt has been anxious to get in to therapy and do everything he can to help return to function. Pt's , who attended his evaluation, notes that she has been doing a lot of PROM in his legs at night to keep everything moving. Pt can feel some stretching during PROM in his right leg. Pt has additionally already started occupational therapy, and has been practicing some seated stabilization. Pt transfers with a slide board, but notes it is difficult to do into his car, because he has to transfer upward at an incline. Treatment Goals Patient/Caregiver Goals I will do anything possible to get out of this wheelchair. My neurologist told me he has seen people recover from this , so I am not giving up hope. PT-OP-C Subjective Start: 03/08/22 17:00 Freq: Status: Active Protocol: Document 01/13/24 14:48 NBM (Rec: 01/16/24 15:07 NBM [id number]) OP-PT Subjective Patient Comments Patient Comments Conway reports PT's wheelchair adjustments last visit have made is wheelchar the best fit it's ever been. He doesn' t tip backward as readily. PT-OP-G Mobility & Gait Start: 03/08/22 17:00 Freq: Status: Active Protocol: Document 10/27/23 14:30 DCW (Rec: 10/27/23 14:56 DCW [id number]) OP Mobility Evaluation Transfers Bed to Chair Transfers Transfers using UE, improved with side-side movement, requires verbal cues for LE positioning Car Transfers uses slide board, stabilizes front to back and prevent slide down board Wheelchair Management Type of Wheelchair Manual w/c Assessment Details Unable to perform tilt back to get over curb with stability PT-OP-H Neuro Start: 03/08/22 17:00 Freq: Status: Active Protocol: Document 10/27/23 14:30 DCW (Rec: 10/27/23 14:56 DCW [id number]) Sensation Evaluation Gross Sensation Gross Sensation Left LE Impaired,Right LE Impaired,Trunk Impaired Sensation Description Paresthesia,Numbness,Tingling, Pins & [place],Burning Dermatome Impairments L1,L2,L3,L4,L5,S1,S2,S3,S4-5 Location Details Right Leg Light Touch Impaired Sharp/Dull Impaired Deep Pressure Intact/Normal Hot/Cold Absent Protective Sensation Absent Proprioception (Position) Impaired Kinesthesia (Movement) Impaired Two-Point Discrimination Impaired Tactile Localization Impaired Stereognosis Impaired Left Leg Light Touch Absent Sharp/Dull Absent Deep Pressure Impaired Hot/Cold Impaired Protective Sensation Absent Proprioception (Position) Absent Kinesthesia (Movement) Impaired Two-Point Discrimination Absent Tactile Localization Absent Stereognosis Absent Comments Summary Comments B protective reflex vs sharp present Deep Tendon Reflex & Clonus Assessment Deep Tendon Reflex Right Achilles Deep Tendon Reflex 1+ Diminished Right Patellar Deep Tendon Reflex 2+ Normal Left Achilles Deep Tendon Reflex 1+ Diminished Left Patellar Deep Tendon Reflex 1+ Diminished Muscle Tone Tone Assessment Right Lower Extremity Flexor Tone Description Moderate Hypertonicity Extensor Tone Description Moderate Hypertonicity Left Lower Extremity Flexor Tone Description Moderate Hypertonicity Extensor Tone Description Moderate Hypertonicity PT-OP-J Posture/Palpation/Skin Start: 03/08/22 17:00 Freq: Status: Active Protocol: Document 10/27/23 14:30 DCW (Rec: 10/27/23 14:56 DCW [id number]) Posture Evaluation Comments Posture Comments Sitting EOB with good core control and no instability. Recovers from most directional pushing. Improved ability to reach outside of base of support. PT-OP-M Strength Start: 08/21/22 15:38 Freq: Status: Active Protocol: Document 10/27/23 14:30 DCW (Rec: 10/27/23 14:56 DCW [id number]) Hip Strength Hip Manual Muscle Testing Right Flexion (L2) 1 Trace Extension (S1) 2- Poor- Adduction 2- Poor- Left Flexion (L2) 1 Trace Extension (S1) 2- Poor- Adduction 1 Trace Knee Strength Knee Manual Muscle Testing Right Flexion (S2) 2- Poor- Extension (L3) 1 Trace Left Flexion (S2) 1 Trace Extension (L3) 1 Trace Ankle/Foot Strength Ankle and Foot Manual Muscle Testing Right Plantarflexion (S1) 2- Poor- Left Plantarflexion (S1) 1 Trace PT-OP-Q Treatments Start: 03/08/22 17:00 Freq: Status: Active Protocol: Document 01/13/24 14:48 NBM (Rec: 01/16/24 15:07 NBM [id number]) Cardio Equipment Recumbent Elliptical (Biodex) Duration (Minutes) 15 Resistance 11 Seat Position 10 Therapeutic Activity Therapeutic Activity Wheelchair Mobility Comments Practice and cues for wheelies to clear curbs, with pt's personal w/c. Treatment focus on finding balance point from neutral and from wheelchair tips, sustaining balance with breath, anterior motion with 3 target for front wheel placement. Pt was able to get wheelchair successfully onto mat w/ CGA only 4/ and partially 2/11 attempts. 34s max balancing in place. squat/lateral scoot transfer Comments 1. w/c<>biodex CGA/Min A 2. w/c<>shuttle recovery -not today 3. lateral transfer <> mat table - not today PT-OP-T Assessment and Plan Start: 03/08/22 17:00 Freq: Status: Active Protocol: Document 01/13/24 14:48 NB (Rec: 01/16/24 15:07 [facility] [id number]) Physical Therapy Assessment Goals Three Impairment Pt does not have any motor function throughout bilateral LEs Short Term Goal (STG) Pt to demonstrate 1/5 trace motor contraction in at least one quad in order to begin focus on LE mobility if neural functional return begins. STG Duration Met Usp Goal (LTG) Pt to demonstrate right quad strength to at least 2/5, demonstrating movement into ROM in an antigravity position LTG Duration 01/25/24 Two Impairment Pt struggles with lateral transfer/scooting along EOB Usp Goal (LTG) Pt to perform lateral scoot transfer using proper technique without any verbal cues 4x in a row. LTG Duration 01/25/24 One Impairment Pt does not have an appropriate home exercise program Short Term Goal (STG) Pt to be independent and compliant with an appropriate HEP 07/30/22: progressing: resisted tricep ext, OH raises in w/c, supine HABD, added scaption OH B #2. STG Duration 01/25/24 Assessment Summary Assessment Treatment focus on wheelchair balance and wheelies up onto 3 mat. W/c tips shortened one level start of session and returned end of session. After several repetitions pt is able to balance in place between wheelchair tips and neutral for 34 seconds max. Of 11 attempts to pop wheelie to maneuver wheelchair completely up onto 3 mat, he is 36% successful and is partially successful with front wheels only 18% of attempts. Physical Therapy Plan Frequency and Duration Frequency of Treatment 2x/Week Plan of Care Start Date 10/27/23 Plan of Care End Date 01/25/24 Therapeutic Interventions Therapeutic Interventions Aquatic Therapy,Balance Training,Coordination Training ,Gait Training,Home Exercise Program,Manual Therapy, Neuromuscular Re-education, Orthotic/Prosthetic Management ,Patient/Caregiver Education, Self-Care/Home Management, Sensory Integration,Soft Tissue Mobilization, Therapeutic Activities, Therapeutic Exercises, Wheelchair Management Next Visit Focus/Plan Next Note Type Treatment Note Next Visit Plan Wheelchair wheelies, curb management POC: Continue UE and core strengthening, LE PROM and manual stretching. Transfers, mobility, LE ROM, pt will benefit from continued breakdown of transfers to improve efficiency and mechanics, as well as working on more seated balance EOB.
--- NOTE | 2024-01-16 16:30 | PT.OTN ---
Current Diagnoses Paraplegia, unspecified (01/16/24) Other specified personal risk factors, not elsewhere classified (01/16/24) Other specified postprocedural states (01/16/24) Physical Therapy Treatment Note PT-OP-A Visit Information Start: 03/08/22 17:00 Freq: Status: Active Protocol: Document 01/16/24 15:20 NBM (Rec: 01/16/24 16:30 NBM [id number]) Out-Patient Physical Therapy Visit Information Visit Information Visit Type Treatment Note Visit Note Pt late Visit Start Time 15:22 Visit Stop Time 16:13 Visit Number [id number] Number of AUDITING CLERK Visits 2 Evaluation Information Evaluation Date 03/08/22 PT-OP-B Current Condition Start: 03/08/22 17:00 Freq: Status: Active Protocol: Document 03/08/22 11:15 DCW (Rec: 03/08/22 17:11 DCW [id number]) Current Condition History of Current Condition Onset Date 12/16/21 Current Complaints Paraplegia History of Current Condition Pt is a 71 year old male with a very unfortunate medical history. Pt was hiking [employer] on 12/16/21 with a friend, finished up, drive back to his friend's home to drop him off, and noticed his left leg was collapsing. By the time pt drove home, both legs were giving out and numb. Pt was suddenly paralized from the waist down, was taken to the ED, and was flown to [facility] on 12/17/21. The following day, he underwent a laminectomy to relieve pressure from the thoracic epidural hematoma which had developed following his hike, which was pressing on his spinal cord. Following surgery , pt was in recovery for a week and was then transfered to rehab for 20 days, when he was finally discharged home in a wheelchair on 01/19/22. Pt reports his surgeon informed him that it is a possibility that he gets some return of nerve function. Has experienced some changes in his right LE, but has no motor function at this time from ~ T10 down. Minimal sensory return on right side, none on left. Pt has been anxious to get in to therapy and do everything he can to help return to function. Pt's , who attended his evaluation, notes that she has been doing a lot of PROM in his legs at night to keep everything moving. Pt can feel some stretching during PROM in his right leg. Pt has additionally already started occupational therapy, and has been practicing some seated stabilization. Pt transfers with a slide board, but notes it is difficult to do into his car, because he has to transfer upward at an incline. Treatment Goals Patient/Caregiver Goals I will do anything possible to get out of this wheelchair. My neurologist told me he has seen people recover from this , so I am not giving up hope. PT-OP-C Subjective Start: 03/08/22 17:00 Freq: Status: Active Protocol: Document 01/16/24 15:20 NBM (Rec: 01/16/24 16:30 NBM [id number]) OP-PT Subjective Patient Comments Patient Comments Rains reports he needs to move around with wheelchair more to lose weight. PT-OP-G Mobility & Gait Start: 03/08/22 17:00 Freq: Status: Active Protocol: Document 10/27/23 14:30 DCW (Rec: 10/27/23 14:56 DCW [id number]) OP Mobility Evaluation Transfers Bed to Chair Transfers Transfers using UE, improved with side-side movement, requires verbal cues for LE positioning Car Transfers uses slide board, stabilizes front to back and prevent slide down board Wheelchair Management Type of Wheelchair Manual w/c Assessment Details Unable to perform tilt back to get over curb with stability PT-OP-H Neuro Start: 03/08/22 17:00 Freq: Status: Active Protocol: Document 10/27/23 14:30 DCW (Rec: 10/27/23 14:56 DCW [id number]) Sensation Evaluation Gross Sensation Gross Sensation Left LE Impaired,Right LE Impaired,Trunk Impaired Sensation Description Paresthesia,Numbness,Tingling, Pins & [place],Burning Dermatome Impairments L1,L2,L3,L4,L5,S1,S2,S3,S4-5 Location Details Right Leg Light Touch Impaired Sharp/Dull Impaired Deep Pressure Intact/Normal Hot/Cold Absent Protective Sensation Absent Proprioception (Position) Impaired Kinesthesia (Movement) Impaired Two-Point Discrimination Impaired Tactile Localization Impaired Stereognosis Impaired Left Leg Light Touch Absent Sharp/Dull Absent Deep Pressure Impaired Hot/Cold Impaired Protective Sensation Absent Proprioception (Position) Absent Kinesthesia (Movement) Impaired Two-Point Discrimination Absent Tactile Localization Absent Stereognosis Absent Comments Summary Comments B protective reflex vs sharp present Deep Tendon Reflex & Clonus Assessment Deep Tendon Reflex Right Achilles Deep Tendon Reflex 1+ Diminished Right Patellar Deep Tendon Reflex 2+ Normal Left Achilles Deep Tendon Reflex 1+ Diminished Left Patellar Deep Tendon Reflex 1+ Diminished Muscle Tone Tone Assessment Right Lower Extremity Flexor Tone Description Moderate Hypertonicity Extensor Tone Description Moderate Hypertonicity Left Lower Extremity Flexor Tone Description Moderate Hypertonicity Extensor Tone Description Moderate Hypertonicity PT-OP-J Posture/Palpation/Skin Start: 03/08/22 17:00 Freq: Status: Active Protocol: Document 10/27/23 14:30 DCW (Rec: 10/27/23 14:56 DCW [id number]) Posture Evaluation Comments Posture Comments Sitting EOB with good core control and no instability. Recovers from most directional pushing. Improved ability to reach outside of base of support. PT-OP-M Strength Start: 08/21/22 15:38 Freq: Status: Active Protocol: Document 10/27/23 14:30 DCW (Rec: 10/27/23 14:56 DCW [id number]) Hip Strength Hip Manual Muscle Testing Right Flexion (L2) 1 Trace Extension (S1) 2- Poor- Adduction 2- Poor- Left Flexion (L2) 1 Trace Extension (S1) 2- Poor- Adduction 1 Trace Knee Strength Knee Manual Muscle Testing Right Flexion (S2) 2- Poor- Extension (L3) 1 Trace Left Flexion (S2) 1 Trace Extension (L3) 1 Trace Ankle/Foot Strength Ankle and Foot Manual Muscle Testing Right Plantarflexion (S1) 2- Poor- Left Plantarflexion (S1) 1 Trace PT-OP-Q Treatments Start: 03/08/22 17:00 Freq: Status: Active Protocol: Document 01/16/24 15:20 NBM (Rec: 01/16/24 16:30 NBM [id number]) Cardio Equipment Recumbent Elliptical (Biodex) Duration (Minutes) 17 Resistance 11 Seat Position 10 Other Pt able to place R leg into foot pedal w/ UEs and modA for trunk stability Therapeutic Exercises Sitting Exercises Bicep curls to overhead press Side bilateral Resistance TB #2 wrapped under w/c Equipment Used modA at shoulders to maintain upright posture Reps/Minutes x5 Comments vc for breath, initial cues for form Therapeutic Activity Therapeutic Activity Wheelchair Mobility Comments Practice and cues for wheelies to clear curbs, with pt's personal w/c. Treatment focus on finding balance point from neutral and from wheelchair tips, sustaining balance with breath, anterior motion with 3 target for front wheel placement. Pt was able to get wheelchair successfully onto mat w/ CGA only 5/10 and partially 2/10 attempts. 59s max balancing in place w/ occasional anterior movement. PT-OP-T Assessment and Plan Start: 03/08/22 17:00 Freq: Status: Active Protocol: Document 01/16/24 15:20 [facility] (Rec: 01/16/24 16:30 [facility] [id number]) Physical Therapy Assessment Assessment Summary Assessment Rains progresses wheelchair balance in place from max 34 sec last visit to 59 sec today , and successful wheelchair wheelies fully onto 3 mat from 36% 9/3 to 50% today. He requires maxA for balance recovery X1 due to posterior loss of balance rolling backwards from 3 mat to floor too quickly. Wheelchair tips shortened one level start of session and lengthened back end of session. Physical Therapy Plan Frequency and Duration Frequency of Treatment 2x/Week Plan of Care Start Date 10/27/23 Plan of Care End Date 01/25/24 Therapeutic Interventions Therapeutic Interventions Aquatic Therapy,Balance Training,Coordination Training ,Gait Training,Home Exercise Program,Manual Therapy, Neuromuscular Re-education, Orthotic/Prosthetic Management ,Patient/Caregiver Education, Self-Care/Home Management, Sensory Integration,Soft Tissue Mobilization, Therapeutic Activities, Therapeutic Exercises, Wheelchair Management Next Visit Focus/Plan Next Note Type Treatment Note Next Visit Plan Wheelchair wheelies, curb management POC: Continue UE and core strengthening, LE PROM and manual stretching. Transfers, mobility, LE ROM, pt will benefit from continued breakdown of transfers to improve efficiency and mechanics, as well as working on more seated balance EOB.
--- NOTE | 2024-01-23 16:14 | PT.OTN ---
Current Diagnoses Paraplegia, unspecified (01/23/24) Other specified personal risk factors, not elsewhere classified (01/23/24) Other specified postprocedural states (01/23/24) Physical Therapy Treatment Note PT-OP-A Visit Information Start: 03/08/22 17:00 Freq: Status: Active Protocol: Document 01/23/24 15:22 DCW (Rec: 01/23/24 16:14 DCW [id number]) Out-Patient Physical Therapy Visit Information Visit Information Visit Type Progress Note Visit Start Time 15:22 Visit Stop Time 16:00 Visit Number 168 Number of TUBING MACHINE OPERATOR Visits 0 Evaluation Information Evaluation Date 03/08/22 PT-OP-B Current Condition Start: 03/08/22 17:00 Freq: Status: Active Protocol: Document 03/08/22 11:15 DCW (Rec: 03/08/22 17:11 DCW [id number]) Current Condition History of Current Condition Onset Date 12/16/21 Current Complaints Paraplegia History of Current Condition Pt is a 71 year old male with a very unfortunate medical history. Pt was hiking [place] on 12/16/21 with a friend, finished up, drive back to his friend's home to drop him off, and noticed his left leg was collapsing. By the time pt drove home, both legs were giving out and numb. Pt was suddenly paralized from the waist down, was taken to the ED, and was flown to [facility] on 12/17/21. The following day, he underwent a laminectomy to relieve pressure from the thoracic epidural hematoma which had developed following his hike, which was pressing on his spinal cord. Following surgery , pt was in recovery for a week and was then transfered to rehab for 20 days, when he was finally discharged home in a wheelchair on 01/19/22. Pt reports his surgeon informed him that it is a possibility that he gets some return of nerve function. Has experienced some changes in his right LE, but has no motor function at this time from ~ T10 down. Minimal sensory return on right side, none on left. Pt has been anxious to get in to therapy and do everything he can to help return to function. Pt's , who attended his evaluation, notes that she has been doing a lot of PROM in his legs at night to keep everything moving. Pt can feel some stretching during PROM in his right leg. Pt has additionally already started occupational therapy, and has been practicing some seated stabilization. Pt transfers with a slide board, but notes it is difficult to do into his car, because he has to transfer upward at an incline. Treatment Goals Patient/Caregiver Goals I will do anything possible to get out of this wheelchair. My neurologist told me he has seen people recover from this , so I am not giving up hope. PT-OP-C Subjective Start: 03/08/22 17:00 Freq: Status: Active Protocol: Document 01/23/24 15:22 DCW (Rec: 01/23/24 16:14 DCW [id number]) OP-PT Subjective Patient Comments Patient Comments I really feel like I've had some increased sensations over the past few weeks. PT-OP-G Mobility & Gait Start: 03/08/22 17:00 Freq: Status: Active Protocol: Document 01/23/24 15:22 DCW (Rec: 01/23/24 15:58 DCW [id number]) OP Mobility Evaluation Transfers Bed to Chair Transfers Transfers using UE, improved with side-side movement, requires verbal cues for LE positioning Car Transfers uses slide board, stabilizes front to back and prevent slide down board Wheelchair Management Type of Wheelchair Manual w/c Assessment Details Unable to perform tilt back to get over curb. Able to clear 2 obstacle 60-70% of the time . Holds wheelie 1:01.95 PT-OP-H Neuro Start: 03/08/22 17:00 Freq: Status: Active Protocol: Document 01/23/24 15:22 DCW (Rec: 01/23/24 15:58 DCW [id number]) Sensation Evaluation Gross Sensation Gross Sensation Left LE Impaired,Right LE Impaired,Trunk Impaired Sensation Description Paresthesia,Numbness,Tingling, [place] & [place],Burning Dermatome Impairments L1,L2,L3,L4,L5,S1,S2,S3,S4-5 Location Details Right Leg Light Touch Impaired Sharp/Dull Impaired Deep Pressure Intact/Normal Hot/Cold Absent Protective Sensation Absent Proprioception (Position) Impaired Kinesthesia (Movement) Impaired Two-Point Discrimination Impaired Tactile Localization Impaired Stereognosis Impaired Left Leg Light Touch Absent Sharp/Dull Absent Deep Pressure Impaired Hot/Cold Impaired Protective Sensation Absent Proprioception (Position) Absent Kinesthesia (Movement) Impaired Two-Point Discrimination Absent Tactile Localization Absent Stereognosis Absent Comments Summary Comments B protective reflex vs sharp present Deep Tendon Reflex & Clonus Assessment Deep Tendon Reflex Right Achilles Deep Tendon Reflex 2+ Normal Right Patellar Deep Tendon Reflex 2+ Normal Left Achilles Deep Tendon Reflex 2+ Normal Left Patellar Deep Tendon Reflex 1+ Diminished Ankle Clonus Right Clonus Assessment Sustained Left Clonus Assessment Sustained Muscle Tone Tone Assessment Right Lower Extremity Flexor Tone Description Moderate Hypertonicity Extensor Tone Description Moderate Hypertonicity Left Lower Extremity Flexor Tone Description Moderate Hypertonicity Extensor Tone Description Moderate Hypertonicity PT-OP-J Posture/Palpation/Skin Start: 03/08/22 17:00 Freq: Status: Active Protocol: Document 01/23/24 15:22 DCW (Rec: 01/23/24 15:58 DCW [id number]) Posture Evaluation Comments Posture Comments Sitting EOB with good core control and no instability. Recovers from most directional pushing. Improved ability to reach outside of base of support. PT-OP-M Strength Start: 08/21/22 15:38 Freq: Status: Active Protocol: Document 01/23/24 15:22 DCW (Rec: 01/23/24 15:58 DCW [id number]) Hip Strength Hip Manual Muscle Testing Right Flexion (L2) 1 Trace Extension (S1) 2- Poor- Adduction 2- Poor- Left Flexion (L2) 1 Trace Extension (S1) 2- Poor- Adduction 1 Trace Knee Strength Knee Manual Muscle Testing Right Flexion (S2) 2- Poor- Extension (L3) 1 Trace Left Flexion (S2) 2- Poor- Extension (L3) 1 Trace Ankle/Foot Strength Ankle and Foot Manual Muscle Testing Right Plantarflexion (S1) 2- Poor- Left Plantarflexion (S1) 1 Trace PT-OP-Q Treatments Start: 03/08/22 17:00 Freq: Status: Active Protocol: Document 01/21/24 15:15 NBM (Rec: 01/21/24 16:12 NBM [id number]) Cardio Equipment Recumbent Elliptical ([employer]) Duration (Minutes) 10 Resistance 11 Seat Position 10 Other Pt able to place R leg into foot pedal w/ UEs and modA for trunk stability Therapeutic Activity Therapeutic Activity Wheelchair Mobility Comments Practice and cues for wheelies to clear curbs, with pt's personal w/c. Treatment focus on finding balance point from neutral and from wheelchair tips, sustaining balance with breath, anterior motion with 3 target for front wheel placement. Pt was able to get wheelchair successfully onto mat w/ CGA only 5/10 and partially 2/10 attempts. 59s max balancing in place w/ occasional anterior movement. 12/20, 7 consecutive, 2 partially on with front wheels only. Pt demos improved control reversing off 3 mat CGA only. PT-OP-T Assessment and Plan Start: 03/08/22 17:00 Freq: Status: Active Protocol: Document 01/23/24 15:22 DCW (Rec: 01/23/24 16:14 DCW [id number]) Physical Therapy Assessment Impairments Impairments Activity Tolerance,Balance, Coordination,Functional Activities,Functional Mobility ,Gait,Integument,Sensation, Soft Tissue Mobility,Strength, Tone,Transfers Goals Three Impairment Pt does not have any motor function throughout bilateral LEs Short Term Goal (STG) Pt to demonstrate 1/5 trace motor contraction in at least one quad in order to begin focus on LE mobility if neural functional return begins. STG Duration Met Correctional Counselor Goal (LTG) Pt to demonstrate right quad strength to at least 2/5, demonstrating movement into ROM in an antigravity position LTG Duration 04/21/24 Two Impairment Pt struggles with lateral transfer/scooting along EOB Long-Term Goal (LTG) Pt to perform lateral scoot transfer using proper technique without any verbal cues 4x in a row. LTG Duration 04/22/24 One Impairment Pt does not have an appropriate home exercise program Short Term Goal (STG) Pt to be independent and compliant with an appropriate HEP STG Duration 04/22/24 Assessment Summary Assessment Pt continues to make incremental improvements in various areas. Recent focus has been more on wheelchair management and curb clearance. Recent adjustment to his wheelchair has enabled him to more comfortably get his front wheels up with less worry about retro tipping. Bilateral improvement with Achilles reflex. Pt will continue to benefit from focus on seated balance, core strength, LE mobility, wheelchair mobility, and transfers secondary to SCI. Physical Therapy Plan Frequency and Duration Frequency of Treatment 2x/Week Plan of Care Start Date 01/23/24 Plan of Care End Date 04/22/24 Therapeutic Interventions Therapeutic Interventions Aquatic Therapy,Balance Training,Coordination Training ,Gait Training,Home Exercise Program,Manual Therapy, Neuromuscular Re-education, Orthotic/Prosthetic Management ,Patient/Caregiver Education, Self-Care/Home Management, Sensory Integration,Soft Tissue Mobilization, Therapeutic Activities, Therapeutic Exercises, Wheelchair Management Next Visit Focus/Plan Next Note Type Treatment Note Next Visit Plan Wheelchair wheelies, curb management POC: Continue UE and core strengthening, LE PROM and manual stretching. Transfers, mobility, LE ROM, pt will benefit from continued breakdown of transfers to improve efficiency and mechanics, as well as working on more seated balance EOB.
--- NOTE | 2024-01-23 16:15 | PT.OPPOC ---
Physical, Occupational & Speech Therapy At [facility] Current Diagnoses Paraplegia, unspecified (01/23/24) Other specified personal risk factors, not elsewhere classified (01/23/24) Other specified postprocedural states (01/23/24) Visit Care Team Role Provider Type Octavio Yates MD Family Provider Physician Primary Care Provider Specialty: Family Practice Address: [address] [place] [address], [address], [address] Email: [email or web address] Charleen Arias PA-C Attending Provider Advanced Boom Pump Operator Referring Provider Specialty: Medical Address: [address] [place] [address], [place] [address], [place], [address] Email: [email or web address] Plan Of Care PT-OP-B Current Condition Start: 03/08/22 17:00 Freq: Status: Active Protocol: Document 03/08/22 11:15 DCW (Rec: 03/08/22 17:11 DCW [id number]) Current Condition History of Current Condition Onset Date 12/16/21 Current Complaints Paraplegia History of Current Condition Pt is a 71 year old male with a very unfortunate medical history. Pt was hiking [employer] on 12/16/21 with a friend, finished up, drive back to his friend's home to drop him off, and noticed his left leg was collapsing. By the time pt drove home, both legs were giving out and numb. Pt was suddenly paralized from the waist down, was taken to the ED, and was flown to [facility] on 12/17/21. The following day, he underwent a laminectomy to relieve pressure from the thoracic epidural hematoma which had developed following his hike, which was pressing on his spinal cord. Following surgery , pt was in recovery for a week and was then transfered to rehab for 20 days, when he was finally discharged home in a wheelchair on 01/19/22. Pt reports his surgeon informed him that it is a possibility that he gets some return of nerve function. Has experienced some changes in his right LE, but has no motor function at this time from ~ T10 down. Minimal sensory return on right side, none on left. Pt has been anxious to get in to therapy and do everything he can to help return to function. Pt's , who attended his evaluation, notes that she has been doing a lot of PROM in his legs at night to keep everything moving. Pt can feel some stretching during PROM in his right leg. Pt has additionally already started occupational therapy, and has been practicing some seated stabilization. Pt transfers with a slide board, but notes it is difficult to do into his car, because he has to transfer upward at an incline. Treatment Goals Patient/Caregiver Goals I will do anything possible to get out of this wheelchair. My neurologist told me he has seen people recover from this , so I am not giving up hope. PT-OP-T Assessment and Plan Start: 03/08/22 17:00 Freq: Status: Active Protocol: Document 01/23/24 15:22 DCW (Rec: 01/23/24 16:14 DCW [id number]) Physical Therapy Assessment Impairments Impairments Activity Tolerance,Balance, Coordination,Functional Activities,Functional Mobility ,Gait,Integument,Sensation, Soft Tissue Mobility,Strength, Tone,Transfers Goals Three Impairment Pt does not have any motor function throughout bilateral LEs Short Term Goal (STG) Pt to demonstrate 1/5 trace motor contraction in at least one quad in order to begin focus on LE mobility if neural functional return begins. STG Duration Met Advanced Registered Nurse Goal (LTG) Pt to demonstrate right quad strength to at least 2/5, demonstrating movement into ROM in an antigravity position LTG Duration 04/21/24 Two Impairment Pt struggles with lateral transfer/scooting along EOB Fpc Goal (LTG) Pt to perform lateral scoot transfer using proper technique without any verbal cues 4x in a row. LTG Duration 04/22/24 One Impairment Pt does not have an appropriate home exercise program Short Term Goal (STG) Pt to be independent and compliant with an appropriate HEP STG Duration 04/22/24 Assessment Summary Assessment Pt continues to make incremental improvements in various areas. Recent focus has been more on wheelchair management and curb clearance. Recent adjustment to his wheelchair has enabled him to more comfortably get his front wheels up with less worry about retro tipping. Bilateral improvement with [place]'s reflex. Pt will continue to benefit from focus on seated balance, core strength, LE mobility, wheelchair mobility, and transfers secondary to SCI. Physical Therapy Plan Frequency and Duration Frequency of Treatment 2x/Week Plan of Care Start Date 01/23/24 Plan of Care End Date 04/22/24 Therapeutic Interventions Therapeutic Interventions Aquatic Therapy,Balance Training,Coordination Training ,Gait Training,Home Exercise Program,Manual Therapy, Neuromuscular Re-education, Orthotic/Prosthetic Management ,Patient/Caregiver Education, Self-Care/Home Management, Sensory Integration,Soft Tissue Mobilization, Therapeutic Activities, Therapeutic Exercises, Wheelchair Management Next Visit Focus/Plan Next Note Type Treatment Note Next Visit Plan Wheelchair wheelies, curb management POC: Continue UE and core strengthening, LE PROM and manual stretching. Transfers, mobility, LE ROM, pt will benefit from continued breakdown of transfers to improve efficiency and mechanics, as well as working on more seated balance EOB. Plan of Care Dates Plan of Care Start Date 01/23/24 Plan of Care End Date 04/22/24 Electronically Signed by: Jean Ruggiero, PT 01/23/24 [id number] If you are in agreement with this Plan of Care, please return a signed and dated copy. I have reviewed this Plan of Care and certify that the skilled therapy services above are required to meet the patient?s needs. Physician Signature Date Printed Name and Credentials Clinical Instructor Signature Printed Name and Credentials
--- NOTE | 2024-01-27 16:03 | PT.OTN ---
Current Diagnoses Paraplegia, unspecified (01/27/24) Other specified personal risk factors, not elsewhere classified (01/27/24) Other specified postprocedural states (01/27/24) Physical Therapy Treatment Note PT-OP-A Visit Information Start: 03/08/22 17:00 Freq: Status: Active Protocol: Document 01/27/24 15:21 DCW (Rec: 01/27/24 16:03 DCW [id number]) Out-Patient Physical Therapy Visit Information Visit Information Visit Type Treatment Note Visit Start Time 15:21 Visit Stop Time 16:00 Visit Number [id number] Number of LENS MOUNTER Visits 0 Evaluation Information Evaluation Date 03/08/22 PT-OP-B Current Condition Start: 03/08/22 17:00 Freq: Status: Active Protocol: Document 03/08/22 11:15 DCW (Rec: 03/08/22 17:11 DCW [id number]) Current Condition History of Current Condition Onset Date 12/16/21 Current Complaints Paraplegia History of Current Condition Pt is a 71 year old male with a very unfortunate medical history. Pt was hiking [place] on 12/16/21 with a friend, finished up, drive back to his friend's home to drop him off, and noticed his left leg was collapsing. By the time pt drove home, both legs were giving out and numb. Pt was suddenly paralized from the waist down, was taken to the ED, and was flown to [facility] on 12/17/21. The following day, he underwent a laminectomy to relieve pressure from the thoracic epidural hematoma which had developed following his hike, which was pressing on his spinal cord. Following surgery , pt was in recovery for a week and was then transfered to rehab for 20 days, when he was finally discharged home in a wheelchair on 01/19/22. Pt reports his surgeon informed him that it is a possibility that he gets some return of nerve function. Has experienced some changes in his right LE, but has no motor function at this time from ~ T10 down. Minimal sensory return on right side, none on left. Pt has been anxious to get in to therapy and do everything he can to help return to function. Pt's , who attended his evaluation, notes that she has been doing a lot of PROM in his legs at night to keep everything moving. Pt can feel some stretching during PROM in his right leg. Pt has additionally already started occupational therapy, and has been practicing some seated stabilization. Pt transfers with a slide board, but notes it is difficult to do into his car, because he has to transfer upward at an incline. Treatment Goals Patient/Caregiver Goals I will do anything possible to get out of this wheelchair. My neurologist told me he has seen people recover from this , so I am not giving up hope. PT-OP-C Subjective Start: 03/08/22 17:00 Freq: Status: Active Protocol: Document 01/27/24 15:21 DCW (Rec: 01/27/24 16:03 DCW [id number]) OP-PT Subjective Patient Comments Patient Comments Pt feeling great today PT-OP-G Mobility & Gait Start: 03/08/22 17:00 Freq: Status: Active Protocol: Document 01/23/24 15:22 DCW (Rec: 01/23/24 15:58 DCW [id number]) OP Mobility Evaluation Transfers Bed to Chair Transfers Transfers using UE, improved with side-side movement, requires verbal cues for LE positioning Car Transfers uses slide board, stabilizes front to back and prevent slide down board Wheelchair Management Type of Wheelchair Manual w/c Assessment Details Unable to perform tilt back to get over curb. Able to clear 2 obstacle 60-70% of the time . Holds wheelie 1:01.95 PT-OP-H Neuro Start: 03/08/22 17:00 Freq: Status: Active Protocol: Document 01/23/24 15:22 DCW (Rec: 01/23/24 15:58 DCW [id number]) Sensation Evaluation Gross Sensation Gross Sensation Left LE Impaired,Right LE Impaired,Trunk Impaired Sensation Description Paresthesia,Numbness,Tingling, Pins & [place],Burning Dermatome Impairments L1,L2,L3,L4,L5,S1,S2,S3,S4-5 Location Details Right Leg Light Touch Impaired Sharp/Dull Impaired Deep Pressure Intact/Normal Hot/Cold Absent Protective Sensation Absent Proprioception (Position) Impaired Kinesthesia (Movement) Impaired Two-Point Discrimination Impaired Tactile Localization Impaired Stereognosis Impaired Left Leg Light Touch Absent Sharp/Dull Absent Deep Pressure Impaired Hot/Cold Impaired Protective Sensation Absent Proprioception (Position) Absent Kinesthesia (Movement) Impaired Two-Point Discrimination Absent Tactile Localization Absent Stereognosis Absent Comments Summary Comments B protective reflex vs sharp present Deep Tendon Reflex & Clonus Assessment Deep Tendon Reflex Right Achilles Deep Tendon Reflex 2+ Normal Right Patellar Deep Tendon Reflex 2+ Normal Left Achilles Deep Tendon Reflex 2+ Normal Left Patellar Deep Tendon Reflex 1+ Diminished Ankle Clonus Right Clonus Assessment Sustained Left Clonus Assessment Sustained Muscle Tone Tone Assessment Right Lower Extremity Flexor Tone Description Moderate Hypertonicity Extensor Tone Description Moderate Hypertonicity Left Lower Extremity Flexor Tone Description Moderate Hypertonicity Extensor Tone Description Moderate Hypertonicity PT-OP-J Posture/Palpation/Skin Start: 03/08/22 17:00 Freq: Status: Active Protocol: Document 01/23/24 15:22 DCW (Rec: 01/23/24 15:58 DCW [id number]) Posture Evaluation Comments Posture Comments Sitting EOB with good core control and no instability. Recovers from most directional pushing. Improved ability to reach outside of base of support. PT-OP-M Strength Start: 08/21/22 15:38 Freq: Status: Active Protocol: Document 01/23/24 15:22 DCW (Rec: 01/23/24 15:58 DC [id number]) Hip Strength Hip Manual Muscle Testing Right Flexion (L2) 1 Trace Extension (S1) 2- Poor- Adduction 2- Poor- Left Flexion (L2) 1 Trace Extension (S1) 2- Poor- Adduction 1 Trace Knee Strength Knee Manual Muscle Testing Right Flexion (S2) 2- Poor- Extension (L3) 1 Trace Left Flexion (S2) 2- Poor- Extension (L3) 1 Trace Ankle/Foot Strength Ankle and Foot Manual Muscle Testing Right Plantarflexion (S1) 2- Poor- Left Plantarflexion (S1) 1 Trace PT-OP-Q Treatments Start: 03/08/22 17:00 Freq: Status: Active Protocol: Document 01/27/24 15:21 DCW (Rec: 01/27/24 16:03 DCW [id number]) Cardio Equipment Recumbent Elliptical (Biodex) Duration (Minutes) 10 Resistance 11 Seat Position 10 Gym Equipment Shuttle Recovery Bilateral Squats Details with BUE assist on thighs Resistance 12# assisted Shuttle Recovery Platform Stable Reps/Time focus on eccentric lowering Therapeutic Exercises Other Exercises Long-kneeling Other Exercise Name Long kneeling /c 12 step support Equipment Used 12step Reps/Minutes x3 ea Comments cues for breath Push-ups Other Exercise Name Push-ups in quadruped Approximation Other Exercise Name Hip approximation in quad, therapist overpressure through hips quadruped child's pose Other Exercise Name quadruped child's pose and sit back stretching Equipment Used two pillows under hips, GB Reps/Minutes 2 min Comments cued reach UEs out front quadruped Resistance CGA Reps/Minutes 5x2 sets Comments pt self heavy support BUEs Therapeutic Activity Therapeutic Activity supine>prone>quadruped Name Mod into quadruped/ Min quad to SL, heavy pt BUE support Reps/Minutes x1 Comments upper trunk support to allow UEs to get under trunk and good UE lift into quadruped then only CGA cues for chest lift serratus press support, support/lower abdomen, good feedback low back and hip stretching PT-OP-T Assessment and Plan Start: 03/08/22 17:00 Freq: Status: Active Protocol: Document 01/27/24 15:21 DCW (Rec: 01/27/24 16:03 DCW [id number]) Physical Therapy Assessment Impairments Impairments Activity Tolerance,Balance, Coordination,Functional Activities,Functional Mobility ,Gait,Integument,Sensation, Soft Tissue Mobility,Strength, Tone,Transfers Goals Three Impairment Pt does not have any motor function throughout bilateral LEs Short Term Goal (STG) Pt to demonstrate 1/5 trace motor contraction in at least one quad in order to begin focus on LE mobility if neural functional return begins. STG Duration Met Residential Goal (LTG) Pt to demonstrate right quad strength to at least 2/5, demonstrating movement into ROM in an antigravity position LTG Duration 04/21/24 Two Impairment Pt struggles with lateral transfer/scooting along EOB Longitudinal Float Operator Goal (LTG) Pt to perform lateral scoot transfer using proper technique without any verbal cues 4x in a row. LTG Duration 04/22/24 One Impairment Pt does not have an appropriate home exercise program Short Term Goal (STG) Pt to be independent and compliant with an appropriate HEP STG Duration 04/22/24 Assessment Summary Assessment Pt able to get himself from sitting EOB -> Supine -> SL -> Prone -> Quadruped -> Long Kneeling wihtout any assistance today for the first time. Bed mobility improving well. Spent time working on quarduped stretching, approximation, and weight- shifting. Physical Therapy Plan Frequency and Duration Frequency of Treatment 2x/Week Plan of Care Start Date 01/23/24 Plan of Care End Date 04/22/24 Therapeutic Interventions Therapeutic Interventions Aquatic Therapy,Balance Training,Coordination Training ,Gait Training,Home Exercise Program,Manual Therapy, Neuromuscular Re-education, Orthotic/Prosthetic Management ,Patient/Caregiver Education, Self-Care/Home Management, Sensory Integration,Soft Tissue Mobilization, Therapeutic Activities, Therapeutic Exercises, Wheelchair Management Next Visit Focus/Plan Next Note Type Treatment Note Next Visit Plan Wheelchair wheelies, curb management POC: Continue UE and core strengthening, LE PROM and manual stretching. Transfers, mobility, LE ROM, pt will benefit from continued breakdown of transfers to improve efficiency and mechanics, as well as working on more seated balance EOB.
--- NOTE | 2024-01-29 15:18 | PT.OTN ---
Current Diagnoses Paraplegia, unspecified (01/29/24) Other specified personal risk factors, not elsewhere classified (01/29/24) Other specified postprocedural states (01/29/24) Physical Therapy Treatment Note PT-OP-A Visit Information Start: 03/08/22 17:00 Freq: Status: Active Protocol: Document 01/29/24 14:36 SP (Rec: 01/29/24 15:47 SP [id number]) Out-Patient Physical Therapy Visit Information Visit Information Visit Type Treatment Note Visit Note 07/19 after PN Visit Start Time 14:36 Visit Stop Time 15:18 Visit Number [id number] Number of SLITTING MACHINE OPERATOR Visits 1 Evaluation Information Evaluation Date 03/08/22 PT-OP-B Current Condition Start: 03/08/22 17:00 Freq: Status: Active Protocol: Document 03/08/22 11:15 DCW (Rec: 03/08/22 17:11 DCW [id number]) Current Condition History of Current Condition Onset Date 12/16/21 Current Complaints Paraplegia History of Current Condition Pt is a 71 year old male with a very unfortunate medical history. Pt was hiking [employer] on 12/16/21 with a friend, finished up, drive back to his friend's home to drop him off, and noticed his left leg was collapsing. By the time pt drove home, both legs were giving out and numb. Pt was suddenly paralized from the waist down, was taken to the ED, and was flown to [facility] on 12/17/21. The following day, he underwent a laminectomy to relieve pressure from the thoracic epidural hematoma which had developed following his hike, which was pressing on his spinal cord. Following surgery , pt was in recovery for a week and was then transfered to rehab for 20 days, when he was finally discharged home in a wheelchair on 01/19/22. Pt reports his surgeon informed him that it is a possibility that he gets some return of nerve function. Has experienced some changes in his right LE, but has no motor function at this time from ~ T10 down. Minimal sensory return on right side, none on left. Pt has been anxious to get in to therapy and do everything he can to help return to function. Pt's , who attended his evaluation, notes that she has been doing a lot of PROM in his legs at night to keep everything moving. Pt can feel some stretching during PROM in his right leg. Pt has additionally already started occupational therapy, and has been practicing some seated stabilization. Pt transfers with a slide board, but notes it is difficult to do into his car, because he has to transfer upward at an incline. Treatment Goals Patient/Caregiver Goals I will do anything possible to get out of this wheelchair. My neurologist told me he has seen people recover from this , so I am not giving up hope. PT-OP-C Subjective Start: 03/08/22 17:00 Freq: Status: Active Protocol: Document 01/29/24 14:36 SP (Rec: 01/29/24 15:47 SP [id number]) OP-PT Subjective Patient Comments Patient Comments Pt reports PT-OP-G Mobility & Gait Start: 03/08/22 17:00 Freq: Status: Active Protocol: Document 01/23/24 15:22 DCW (Rec: 01/23/24 15:58 DCW [id number]) OP Mobility Evaluation Transfers Bed to Chair Transfers Transfers using UE, improved with side-side movement, requires verbal cues for LE positioning Car Transfers uses slide board, stabilizes front to back and prevent slide down board Wheelchair Management Type of Wheelchair Manual w/c Assessment Details Unable to perform tilt back to get over curb. Able to clear 2 obstacle 60-70% of the time . Holds wheelie 1:01.95 PT-OP-H Neuro Start: 03/08/22 17:00 Freq: Status: Active Protocol: Document 01/23/24 15:22 DCW (Rec: 01/23/24 15:58 DCW [id number]) Sensation Evaluation Gross Sensation Gross Sensation Left LE Impaired,Right LE Impaired,Trunk Impaired Sensation Description Paresthesia,Numbness,Tingling, Pins & [place],Burning Dermatome Impairments L1,L2,L3,L4,L5,S1,S2,S3,S4-5 Location Details Right Leg Light Touch Impaired Sharp/Dull Impaired Deep Pressure Intact/Normal Hot/Cold Absent Protective Sensation Absent Proprioception (Position) Impaired Kinesthesia (Movement) Impaired Two-Point Discrimination Impaired Tactile Localization Impaired Stereognosis Impaired Left Leg Light Touch Absent Sharp/Dull Absent Deep Pressure Impaired Hot/Cold Impaired Protective Sensation Absent Proprioception (Position) Absent Kinesthesia (Movement) Impaired Two-Point Discrimination Absent Tactile Localization Absent Stereognosis Absent Comments Summary Comments B protective reflex vs sharp present Deep Tendon Reflex & Clonus Assessment Deep Tendon Reflex Right Achilles Deep Tendon Reflex 2+ Normal Right Patellar Deep Tendon Reflex 2+ Normal Left Achilles Deep Tendon Reflex 2+ Normal Left Patellar Deep Tendon Reflex 1+ Diminished Ankle Clonus Right Clonus Assessment Sustained Left Clonus Assessment Sustained Muscle Tone Tone Assessment Right Lower Extremity Flexor Tone Description Moderate Hypertonicity Extensor Tone Description Moderate Hypertonicity Left Lower Extremity Flexor Tone Description Moderate Hypertonicity Extensor Tone Description Moderate Hypertonicity PT-OP-J Posture/Palpation/Skin Start: 03/08/22 17:00 Freq: Status: Active Protocol: Document 01/23/24 15:22 DCW (Rec: 01/23/24 15:58 DCW [id number]) Posture Evaluation Comments Posture Comments Sitting EOB with good core control and no instability. Recovers from most directional pushing. Improved ability to reach outside of base of support. PT-OP-M Strength Start: 08/21/22 15:38 Freq: Status: Active Protocol: Document 01/23/24 15:22 DCW (Rec: 01/23/24 15:58 DCW [id number]) Hip Strength Hip Manual Muscle Testing Right Flexion (L2) 1 Trace Extension (S1) 2- Poor- Adduction 2- Poor- Left Flexion (L2) 1 Trace Extension (S1) 2- Poor- Adduction 1 Trace Knee Strength Knee Manual Muscle Testing Right Flexion (S2) 2- Poor- Extension (L3) 1 Trace Left Flexion (S2) 2- Poor- Extension (L3) 1 Trace Ankle/Foot Strength Ankle and Foot Manual Muscle Testing Right Plantarflexion (S1) 2- Poor- Left Plantarflexion (S1) 1 Trace PT-OP-Q Treatments Start: 03/08/22 17:00 Freq: Status: Active Protocol: Document 01/29/24 14:36 SP (Rec: 01/29/24 15:47 SP [id number]) Cardio Equipment Recumbent Elliptical (Biodex) Duration (Minutes) 11 Resistance 11- self LLE on pedal, challenged RLE Seat Position 12 (don legs), 8>9>10 LE mobility Other BUEs, BLEs- Min A as needed for hip add // BLEs Gym Equipment Shuttle Recovery Bilateral Squats Details with BUE assist on thighs Resistance 12# assisted ascending, BLE only descending Shuttle Recovery Platform Stable Reps/Time focus on eccentric lowering (7 >3 sec slow pacing to end feel LE flexion) Therapeutic Activity Therapeutic Activity squat/lateral scoot transfer Name lateral scoot transfer heavy BUEs, PRN BLE positioning as needed Comments 1. w/c<>biodex: ascend/onto boidex 10% A, CGA /c therapist knees front pt B knees descend to w/c 2. w/c<>shuttle recovery CGA ( 1 posterior LOB 25%A support at gait belt to stop retro lean, cued pt fwd trunk flexion recover then continued ) 3. lateral scoot transfer w/c< > mat table close SBA(multiple reps) 19.5>19 (lower than w /c, assimulate low couch) *cues for scoot to front seat, BLE positioning (Le closer to direction going more forward) , BUE WB on each surface smaller and more frequent scoot repetitions as though on slide board for more fluid scooting. PT-OP-T Assessment and Plan Start: 03/08/22 17:00 Freq: Status: Active Protocol: Document 01/29/24 14:36 SP (Rec: 01/29/24 15:47 SP [id number]) Physical Therapy Assessment Goals Three Impairment Pt does not have any motor function throughout bilateral LEs Short Term Goal (STG) Pt to demonstrate 1/5 trace motor contraction in at least one quad in order to begin focus on LE mobility if neural functional return begins. STG Duration Met Squeegee Operator Goal (LTG) Pt to demonstrate right quad strength to at least 2/5, demonstrating movement into ROM in an antigravity position LTG Duration 04/21/24 Two Impairment Pt struggles with lateral transfer/scooting along EOB Residential Goal (LTG) Pt to perform lateral scoot transfer using proper technique without any verbal cues 4x in a row. LTG Duration 04/22/24 One Impairment Pt does not have an appropriate home exercise program Short Term Goal (STG) Pt to be independent and compliant with an appropriate HEP STG Duration 04/22/24 Assessment Summary Assessment Tx focused on increased independence in transfers to higher surface with smaller, more frequent, slower pacing lateral scoot with cues for more trunk flexion and awareness of BLE positioning (LE closer to surface little more in front). Pt was able to complete transfers on/off decreased support 10%A onto biodex and CGA onto shuttle recovery and higher table heights 19-19.5 this tx. Ed cues for set and performance with this technique during every transfer for improved stability and reduction in support required with verbalized understanding/ agreement. Physical Therapy Plan Frequency and Duration Frequency of Treatment 2x/Week Plan of Care Start Date 01/23/24 Plan of Care End Date 04/22/24 Therapeutic Interventions Therapeutic Interventions Aquatic Therapy,Balance Training,Coordination Training ,Gait Training,Home Exercise Program,Manual Therapy, Neuromuscular Re-education, Orthotic/Prosthetic Management ,Patient/Caregiver Education, Self-Care/Home Management, Sensory Integration,Soft Tissue Mobilization, Therapeutic Activities, Therapeutic Exercises, Wheelchair Management Next Visit Focus/Plan Next Note Type Treatment Note Next Visit Plan Wheelchair wheelies, curb management, recheck lateral transfers to elevated surfaces more trunk flexion/frequent scoots decreased assist. POC: Continue UE and core strengthening, LE PROM and manual stretching. Transfers, mobility, LE ROM, pt will benefit from continued breakdown of transfers to improve efficiency and mechanics, as well as working on more seated balance EOB.
--- NOTE | 2024-02-03 16:04 | PT.OTN ---
Current Diagnoses Paraplegia, unspecified (02/03/24) Other specified personal risk factors, not elsewhere classified (02/03/24) Other specified postprocedural states (02/03/24) Physical Therapy Treatment Note PT-OP-A Visit Information Start: 03/08/22 17:00 Freq: Status: Active Protocol: Document 02/03/24 15:19 DCW (Rec: 02/03/24 16:03 DCW [id number]) Out-Patient Physical Therapy Visit Information Visit Information Visit Type Treatment Note Visit Note 08/19 after PN Visit Start Time 15:19 Visit Stop Time 16:00 Visit Number [id number] Number of LANGUAGE AND LITERATURE DIVISION CHAIR Visits 0 Evaluation Information Evaluation Date 03/08/22 PT-OP-B Current Condition Start: 03/08/22 17:00 Freq: Status: Active Protocol: Document 03/08/22 11:15 DCW (Rec: 03/08/22 17:11 DCW [id number]) Current Condition History of Current Condition Onset Date 12/16/21 Current Complaints Paraplegia History of Current Condition Pt is a 71 year old male with a very unfortunate medical history. Pt was hiking [place] on 12/16/21 with a friend, finished up, drive back to his friend's home to drop him off, and noticed his left leg was collapsing. By the time pt drove home, both legs were giving out and numb. Pt was suddenly paralized from the waist down, was taken to the ED, and was flown to [facility] on 12/17/21. The following day, he underwent a laminectomy to relieve pressure from the thoracic epidural hematoma which had developed following his hike, which was pressing on his spinal cord. Following surgery , pt was in recovery for a week and was then transfered to rehab for 20 days, when he was finally discharged home in a wheelchair on 01/19/22. Pt reports his surgeon informed him that it is a possibility that he gets some return of nerve function. Has experienced some changes in his right LE, but has no motor function at this time from ~ T10 down. Minimal sensory return on right side, none on left. Pt has been anxious to get in to therapy and do everything he can to help return to function. Pt's , who attended his evaluation, notes that she has been doing a lot of PROM in his legs at night to keep everything moving. Pt can feel some stretching during PROM in his right leg. Pt has additionally already started occupational therapy, and has been practicing some seated stabilization. Pt transfers with a slide board, but notes it is difficult to do into his car, because he has to transfer upward at an incline. Treatment Goals Patient/Caregiver Goals I will do anything possible to get out of this wheelchair. My neurologist told me he has seen people recover from this , so I am not giving up hope. PT-OP-C Subjective Start: 03/08/22 17:00 Freq: Status: Active Protocol: Document 02/03/24 15:19 DCW (Rec: 02/03/24 16:03 DCW [id number]) OP-PT Subjective Patient Comments Patient Comments Pt doing well today, still feels like his sensation has been improving PT-OP-G Mobility & Gait Start: 03/08/22 17:00 Freq: Status: Active Protocol: Document 01/23/24 15:22 DCW (Rec: 01/23/24 15:58 DCW [id number]) OP Mobility Evaluation Transfers Bed to Chair Transfers Transfers using UE, improved with side-side movement, requires verbal cues for LE positioning Car Transfers uses slide board, stabilizes front to back and prevent slide down board Wheelchair Management Type of Wheelchair Manual w/c Assessment Details Unable to perform tilt back to get over curb. Able to clear 2 obstacle 60-70% of the time . Holds wheelie 1:01.95 PT-OP-H Neuro Start: 03/08/22 17:00 Freq: Status: Active Protocol: Document 01/23/24 15:22 DCW (Rec: 01/23/24 15:58 DCW [id number]) Sensation Evaluation Gross Sensation Gross Sensation Left LE Impaired,Right LE Impaired,Trunk Impaired Sensation Description Paresthesia,Numbness,Tingling, Pins & [place],Burning Dermatome Impairments L1,L2,L3,L4,L5,S1,S2,S3,S4-5 Location Details Right Leg Light Touch Impaired Sharp/Dull Impaired Deep Pressure Intact/Normal Hot/Cold Absent Protective Sensation Absent Proprioception (Position) Impaired Kinesthesia (Movement) Impaired Two-Point Discrimination Impaired Tactile Localization Impaired Stereognosis Impaired Left Leg Light Touch Absent Sharp/Dull Absent Deep Pressure Impaired Hot/Cold Impaired Protective Sensation Absent Proprioception (Position) Absent Kinesthesia (Movement) Impaired Two-Point Discrimination Absent Tactile Localization Absent Stereognosis Absent Comments Summary Comments B protective reflex vs sharp present Deep Tendon Reflex & Clonus Assessment Deep Tendon Reflex Right Achilles Deep Tendon Reflex 2+ Normal Right Patellar Deep Tendon Reflex 2+ Normal Left Achilles Deep Tendon Reflex 2+ Normal Left Patellar Deep Tendon Reflex 1+ Diminished Ankle Clonus Right Clonus Assessment Sustained Left Clonus Assessment Sustained Muscle Tone Tone Assessment Right Lower Extremity Flexor Tone Description Moderate Hypertonicity Extensor Tone Description Moderate Hypertonicity Left Lower Extremity Flexor Tone Description Moderate Hypertonicity Extensor Tone Description Moderate Hypertonicity PT-OP-J Posture/Palpation/Skin Start: 03/08/22 17:00 Freq: Status: Active Protocol: Document 01/23/24 15:22 DCW (Rec: 01/23/24 15:58 DCW [id number]) Posture Evaluation Comments Posture Comments Sitting EOB with good core control and no instability. Recovers from most directional pushing. Improved ability to reach outside of base of support. PT-OP-M Strength Start: 08/21/22 15:38 Freq: Status: Active Protocol: Document 01/23/24 15:22 DCW (Rec: 01/23/24 15:58 DC [id number]) Hip Strength Hip Manual Muscle Testing Right Flexion (L2) 1 Trace Extension (S1) 2- Poor- Adduction 2- Poor- Left Flexion (L2) 1 Trace Extension (S1) 2- Poor- Adduction 1 Trace Knee Strength Knee Manual Muscle Testing Right Flexion (S2) 2- Poor- Extension (L3) 1 Trace Left Flexion (S2) 2- Poor- Extension (L3) 1 Trace Ankle/Foot Strength Ankle and Foot Manual Muscle Testing Right Plantarflexion (S1) 2- Poor- Left Plantarflexion (S1) 1 Trace PT-OP-Q Treatments Start: 03/08/22 17:00 Freq: Status: Active Protocol: Document 02/03/24 15:19 DCW (Rec: 02/03/24 16:03 DCW [id number]) Cardio Equipment Recumbent Elliptical (Biodex) Duration (Minutes) 10 Resistance 11 Seat Position 10 Therapeutic Exercises Other Exercises Long-kneeling Other Exercise Name Long kneeling /c self thigh support Equipment Used 12step Reps/Minutes x3 ea Comments cues for breath Push-ups Other Exercise Name Push-ups in quadruped Approximation Other Exercise Name Hip approximation in quad, therapist overpressure through hips quadruped child's pose Other Exercise Name quadruped child's pose and sit back stretching Equipment Used two pillows under hips, GB Reps/Minutes 2 min Comments cued reach UEs out front quadruped Resistance CGA Reps/Minutes 5x2 sets Comments pt self heavy support BUEs Therapeutic Activity Therapeutic Activity supine>prone>quadruped Name SBA into quadruped/ Min quad to SL, heavy pt BUE support Reps/Minutes x1 PT-OP-T Assessment and Plan Start: 03/08/22 17:00 Freq: Status: Active Protocol: Document 02/03/24 15:19 DCW (Rec: 02/03/24 16:03 DCW [id number]) Physical Therapy Assessment Impairments Impairments Activity Tolerance,Balance, Coordination,Functional Activities,Functional Mobility ,Gait,Integument,Sensation, Soft Tissue Mobility,Strength, Tone,Transfers Goals Three Impairment Pt does not have any motor function throughout bilateral LEs Short Term Goal (STG) Pt to demonstrate 1/5 trace motor contraction in at least one quad in order to begin focus on LE mobility if neural functional return begins. STG Duration Met Production Sanitizer Goal (LTG) Pt to demonstrate right quad strength to at least 2/5, demonstrating movement into ROM in an antigravity position LTG Duration 04/21/24 Two Impairment Pt struggles with lateral transfer/scooting along EOB Production Sanitizer Goal (LTG) Pt to perform lateral scoot transfer using proper technique without any verbal cues 4x in a row. LTG Duration 04/22/24 One Impairment Pt does not have an appropriate home exercise program Short Term Goal (STG) Pt to be independent and compliant with an appropriate HEP STG Duration 04/22/24 Assessment Summary Assessment Pt again got himself into quadruped, but had more of a struggle today than last week. Pt does well with long- kneeling. Good overall stretch , continue to work on UE strengthening for transfers. Physical Therapy Plan Frequency and Duration Frequency of Treatment 2x/Week Plan of Care Start Date 01/23/24 Plan of Care End Date 04/22/24 Therapeutic Interventions Therapeutic Interventions Aquatic Therapy,Balance Training,Coordination Training ,Gait Training,Home Exercise Program,Manual Therapy, Neuromuscular Re-education, Orthotic/Prosthetic Management ,Patient/Caregiver Education, Self-Care/Home Management, Sensory Integration,Soft Tissue Mobilization, Therapeutic Activities, Therapeutic Exercises, Wheelchair Management Next Visit Focus/Plan Next Note Type Treatment Note Next Visit Plan Wheelchair wheelies, curb management, recheck lateral transfers to elevated surfaces more trunk flexion/frequent scoots decreased assist. POC: Continue UE and core strengthening, LE PROM and manual stretching. Transfers, mobility, LE ROM, pt will benefit from continued breakdown of transfers to improve efficiency and mechanics, as well as working on more seated balance EOB.
--- NOTE | 2024-02-05 16:16 | PT.OTN ---
Current Diagnoses Paraplegia, unspecified (02/05/24) Other specified personal risk factors, not elsewhere classified (02/05/24) Other specified postprocedural states (02/05/24) Physical Therapy Treatment Note PT-OP-A Visit Information Start: 03/08/22 17:00 Freq: Status: Active Protocol: Document 02/05/24 15:20 DCW (Rec: 02/05/24 16:13 DCW [id number]) Out-Patient Physical Therapy Visit Information Visit Information Visit Type Treatment Note Visit Note 09/18 after PN Visit Start Time 15:20 Visit Stop Time 16:00 Visit Number [id number] Number of RETAIL SUPPORT SPECIALIST Visits 0 Evaluation Information Evaluation Date 03/08/22 PT-OP-B Current Condition Start: 03/08/22 17:00 Freq: Status: Active Protocol: Document 03/08/22 11:15 DCW (Rec: 03/08/22 17:11 DCW [id number]) Current Condition History of Current Condition Onset Date 12/16/21 Current Complaints Paraplegia History of Current Condition Pt is a 71 year old male with a very unfortunate medical history. Pt was hiking [employer] [place] on 12/16/21 with a friend, finished up, drive back to his friend's home to drop him off, and noticed his left leg was collapsing. By the time pt drove home, both legs were giving out and numb. Pt was suddenly paralized from the waist down, was taken to the ED, and was flown to [facility] on 12/17/21. The following day, he underwent a laminectomy to relieve pressure from the thoracic epidural hematoma which had developed following his hike, which was pressing on his spinal cord. Following surgery , pt was in recovery for a week and was then transfered to rehab for 20 days, when he was finally discharged home in a wheelchair on 01/19/22. Pt reports his surgeon informed him that it is a possibility that he gets some return of nerve function. Has experienced some changes in his right LE, but has no motor function at this time from ~ T10 down. Minimal sensory return on right side, none on left. Pt has been anxious to get in to therapy and do everything he can to help return to function. Pt's , who attended his evaluation, notes that she has been doing a lot of PROM in his legs at night to keep everything moving. Pt can feel some stretching during PROM in his right leg. Pt has additionally already started occupational therapy, and has been practicing some seated stabilization. Pt transfers with a slide board, but notes it is difficult to do into his car, because he has to transfer upward at an incline. Treatment Goals Patient/Caregiver Goals I will do anything possible to get out of this wheelchair. My neurologist told me he has seen people recover from this , so I am not giving up hope. PT-OP-C Subjective Start: 03/08/22 17:00 Freq: Status: Active Protocol: Document 02/05/24 15:20 DCW (Rec: 02/05/24 16:13 DCW [id number]) OP-PT Subjective Patient Comments Patient Comments I hate to sound like a broken record, but I'm just getting more and more sensation in my right side. PT-OP-G Mobility & Gait Start: 03/08/22 17:00 Freq: Status: Active Protocol: Document 01/23/24 15:22 DCW (Rec: 01/23/24 15:58 DC [id number]) OP Mobility Evaluation Transfers Bed to Chair Transfers Transfers using UE, improved with side-side movement, requires verbal cues for LE positioning Car Transfers uses slide board, stabilizes front to back and prevent slide down board Wheelchair Management Type of Wheelchair Manual w/c Assessment Details Unable to perform tilt back to get over curb. Able to clear 2 obstacle 60-70% of the time . Holds wheelie 1:01.95 PT-OP-H Neuro Start: 03/08/22 17:00 Freq: Status: Active Protocol: Document 01/23/24 15:22 DCW (Rec: 01/23/24 15:58 [facility] [id number]) Sensation Evaluation Gross Sensation Gross Sensation Left LE Impaired,Right LE Impaired,Trunk Impaired Sensation Description Paresthesia,Numbness,Tingling, Pins & [place],Burning Dermatome Impairments L1,L2,L3,L4,L5,S1,S2,S3,S4-5 Location Details Right Leg Light Touch Impaired Sharp/Dull Impaired Deep Pressure Intact/Normal Hot/Cold Absent Protective Sensation Absent Proprioception (Position) Impaired Kinesthesia (Movement) Impaired Two-Point Discrimination Impaired Tactile Localization Impaired Stereognosis Impaired Left Leg Light Touch Absent Sharp/Dull Absent Deep Pressure Impaired Hot/Cold Impaired Protective Sensation Absent Proprioception (Position) Absent Kinesthesia (Movement) Impaired Two-Point Discrimination Absent Tactile Localization Absent Stereognosis Absent Comments Summary Comments B protective reflex vs sharp present Deep Tendon Reflex & Clonus Assessment Deep Tendon Reflex Right Achilles Deep Tendon Reflex 2+ Normal Right Patellar Deep Tendon Reflex 2+ Normal Left Achilles Deep Tendon Reflex 2+ Normal Left Patellar Deep Tendon Reflex 1+ Diminished Ankle Clonus Right Clonus Assessment Sustained Left Clonus Assessment Sustained Muscle Tone Tone Assessment Right Lower Extremity Flexor Tone Description Moderate Hypertonicity Extensor Tone Description Moderate Hypertonicity Left Lower Extremity Flexor Tone Description Moderate Hypertonicity Extensor Tone Description Moderate Hypertonicity PT-OP-J Posture/Palpation/Skin Start: 03/08/22 17:00 Freq: Status: Active Protocol: Document 01/23/24 15:22 DCW (Rec: 01/23/24 15:58 DCW [id number]) Posture Evaluation Comments Posture Comments Sitting EOB with good core control and no instability. Recovers from most directional pushing. Improved ability to reach outside of base of support. PT-OP-M Strength Start: 08/21/22 15:38 Freq: Status: Active Protocol: Document 01/23/24 15:22 DCW (Rec: 01/23/24 15:58 DCW [id number]) Hip Strength Hip Manual Muscle Testing Right Flexion (L2) 1 Trace Extension (S1) 2- Poor- Adduction 2- Poor- Left Flexion (L2) 1 Trace Extension (S1) 2- Poor- Adduction 1 Trace Knee Strength Knee Manual Muscle Testing Right Flexion (S2) 2- Poor- Extension (L3) 1 Trace Left Flexion (S2) 2- Poor- Extension (L3) 1 Trace Ankle/Foot Strength Ankle and Foot Manual Muscle Testing Right Plantarflexion (S1) 2- Poor- Left Plantarflexion (S1) 1 Trace PT-OP-Q Treatments Start: 03/08/22 17:00 Freq: Status: Active Protocol: Document 02/05/24 15:20 DCW (Rec: 02/05/24 16:13 DCW [id number]) Cardio Equipment Recumbent Elliptical (Biodex) Duration (Minutes) 10 Resistance 11 Seat Position 10 Gym Equipment Therapeutic Ball Quadruped Exercise Details Quadruped with chest on ball, rolling fwd/back Ball Size/Color Blue - 45 cm Therapeutic Exercises Other Exercises Long-kneeling Other Exercise Name Long kneeling /c self thigh support Equipment Used 12step Reps/Minutes x3 ea Comments cues for breath Push-ups Other Exercise Name Push-ups in quadruped Approximation Other Exercise Name Hip approximation in quad, therapist overpressure through hips quadruped child's pose Other Exercise Name quadruped child's pose and sit back stretching Comments cued reach UEs out front quadruped Resistance CGA Reps/Minutes 5x2 sets Comments pt self heavy support BUEs Therapeutic Activity Therapeutic Activity supine>prone>quadruped Name SBA into quadruped/ Min quad to SL, heavy pt BUE support Reps/Minutes x1 PT-OP-T Assessment and Plan Start: 03/08/22 17:00 Freq: Status: Active Protocol: Document 02/05/24 15:20 DCW (Rec: 02/05/24 16:13 DCW [id number]) Physical Therapy Assessment Impairments Impairments Activity Tolerance,Balance, Coordination,Functional Activities,Functional Mobility ,Gait,Integument,Sensation, Soft Tissue Mobility,Strength, Tone,Transfers Goals Three Impairment Pt does not have any motor function throughout bilateral LEs Short Term Goal (STG) Pt to demonstrate 1/5 trace motor contraction in at least one quad in order to begin focus on LE mobility if neural functional return begins. STG Duration Met Retirement Goal (LTG) Pt to demonstrate right quad strength to at least 2/5, demonstrating movement into ROM in an antigravity position LTG Duration 04/21/24 Two Impairment Pt struggles with lateral transfer/scooting along EOB Processing Analyst Goal (LTG) Pt to perform lateral scoot transfer using proper technique without any verbal cues 4x in a row. LTG Duration 04/22/24 One Impairment Pt does not have an appropriate home exercise program Short Term Goal (STG) Pt to be independent and compliant with an appropriate HEP STG Duration 04/22/24 Assessment Summary Assessment Pt displayed significant increase in ease getting from sitting EOB to quadruped today , first time attempting by rolling to right. Demonstrated very good core workout with rolling out onto T-ball. Continue to focus on w/c management, stability, activity tolerance, and strength Physical Therapy Plan Frequency and Duration Frequency of Treatment 2x/Week Plan of Care Start Date 01/23/24 Plan of Care End Date 04/22/24 Therapeutic Interventions Therapeutic Interventions Aquatic Therapy,Balance Training,Coordination Training ,Gait Training,Home Exercise Program,Manual Therapy, Neuromuscular Re-education, Orthotic/Prosthetic Management ,Patient/Caregiver Education, Self-Care/Home Management, Sensory Integration,Soft Tissue Mobilization, Therapeutic Activities, Therapeutic Exercises, Wheelchair Management Next Visit Focus/Plan Next Note Type Treatment Note Next Visit Plan Wheelchair wheelies, curb management, recheck lateral transfers to elevated surfaces more trunk flexion/frequent scoots decreased assist. POC: Continue UE and core strengthening, LE PROM and manual stretching. Transfers, mobility, LE ROM, pt will benefit from continued breakdown of transfers to improve efficiency and mechanics, as well as working on more seated balance EOB.
--- NOTE | 2024-02-10 14:31 | PT.OTN ---
Current Diagnoses Paraplegia, unspecified (02/10/24) Other specified personal risk factors, not elsewhere classified (02/10/24) Other specified postprocedural states (02/10/24) Physical Therapy Treatment Note PT-OP-A Visit Information Start: 03/08/22 17:00 Freq: Status: Active Protocol: Document 02/10/24 13:51 SP (Rec: 02/10/24 14:33 SP [id number]) Out-Patient Physical Therapy Visit Information Visit Information Visit Type Treatment Note Visit Note 10/19 after PN Visit Start Time 13:51 Visit Stop Time 14:31 Visit Number [id number] Number of GOLF COURSE RANGER Visits 1 Evaluation Information Evaluation Date 03/08/22 PT-OP-B Current Condition Start: 03/08/22 17:00 Freq: Status: Active Protocol: Document 03/08/22 11:15 DCW (Rec: 03/08/22 17:11 DCW [id number]) Current Condition History of Current Condition Onset Date 12/16/21 Current Complaints Paraplegia History of Current Condition Pt is a 71 year old male with a very unfortunate medical history. Pt was hiking [place] on 12/16/21 with a friend, finished up, drive back to his friend's home to drop him off, and noticed his left leg was collapsing. By the time pt drove home, both legs were giving out and numb. Pt was suddenly paralized from the waist down, was taken to the ED, and was flown to [facility] on 12/17/21. The following day, he underwent a laminectomy to relieve pressure from the thoracic epidural hematoma which had developed following his hike, which was pressing on his spinal cord. Following surgery , pt was in recovery for a week and was then transfered to rehab for 20 days, when he was finally discharged home in a wheelchair on 01/19/22. Pt reports his surgeon informed him that it is a possibility that he gets some return of nerve function. Has experienced some changes in his right LE, but has no motor function at this time from ~ T10 down. Minimal sensory return on right side, none on left. Pt has been anxious to get in to therapy and do everything he can to help return to function. Pt's , who attended his evaluation, notes that she has been doing a lot of PROM in his legs at night to keep everything moving. Pt can feel some stretching during PROM in his right leg. Pt has additionally already started occupational therapy, and has been practicing some seated stabilization. Pt transfers with a slide board, but notes it is difficult to do into his car, because he has to transfer upward at an incline. Treatment Goals Patient/Caregiver Goals I will do anything possible to get out of this wheelchair. My neurologist told me he has seen people recover from this , so I am not giving up hope. PT-OP-C Subjective Start: 03/08/22 17:00 Freq: Status: Active Protocol: Document 02/10/24 13:51 SP (Rec: 02/10/24 14:33 SP [id number]) OP-PT Subjective Patient Comments Patient Comments Pt reports has reached this point that the gradual improvement in sensation in whole body along R side: back and legs. PT-OP-G Mobility & Gait Start: 03/08/22 17:00 Freq: Status: Active Protocol: Document 01/23/24 15:22 DCW (Rec: 01/23/24 15:58 DCW [id number]) OP Mobility Evaluation Transfers Bed to Chair Transfers Transfers using UE, improved with side-side movement, requires verbal cues for LE positioning Car Transfers uses slide board, stabilizes front to back and prevent slide down board Wheelchair Management Type of Wheelchair Manual w/c Assessment Details Unable to perform tilt back to get over curb. Able to clear 2 obstacle 60-70% of the time . Holds wheelie 1:01.95 PT-OP-H Neuro Start: 03/08/22 17:00 Freq: Status: Active Protocol: Document 01/23/24 15:22 DCW (Rec: 01/23/24 15:58 DCW [id number]) Sensation Evaluation Gross Sensation Gross Sensation Left LE Impaired,Right LE Impaired,Trunk Impaired Sensation Description Paresthesia,Numbness,Tingling, Pins & [place],Burning Dermatome Impairments L1,L2,L3,L4,L5,S1,S2,S3,S4-5 Location Details Right Leg Light Touch Impaired Sharp/Dull Impaired Deep Pressure Intact/Normal Hot/Cold Absent Protective Sensation Absent Proprioception (Position) Impaired Kinesthesia (Movement) Impaired Two-Point Discrimination Impaired Tactile Localization Impaired Stereognosis Impaired Left Leg Light Touch Absent Sharp/Dull Absent Deep Pressure Impaired Hot/Cold Impaired Protective Sensation Absent Proprioception (Position) Absent Kinesthesia (Movement) Impaired Two-Point Discrimination Absent Tactile Localization Absent Stereognosis Absent Comments Summary Comments B protective reflex vs sharp present Deep Tendon Reflex & Clonus Assessment Deep Tendon Reflex Right Achilles Deep Tendon Reflex 2+ Normal Right Patellar Deep Tendon Reflex 2+ Normal Left Achilles Deep Tendon Reflex 2+ Normal Left Patellar Deep Tendon Reflex 1+ Diminished Ankle Clonus Right Clonus Assessment Sustained Left Clonus Assessment Sustained Muscle Tone Tone Assessment Right Lower Extremity Flexor Tone Description Moderate Hypertonicity Extensor Tone Description Moderate Hypertonicity Left Lower Extremity Flexor Tone Description Moderate Hypertonicity Extensor Tone Description Moderate Hypertonicity PT-OP-J Posture/Palpation/Skin Start: 03/08/22 17:00 Freq: Status: Active Protocol: Document 01/23/24 15:22 DCW (Rec: 01/23/24 15:58 DCW [id number]) Posture Evaluation Comments Posture Comments Sitting EOB with good core control and no instability. Recovers from most directional pushing. Improved ability to reach outside of base of support. PT-OP-M Strength Start: 08/21/22 15:38 Freq: Status: Active Protocol: Document 01/23/24 15:22 DCW (Rec: 01/23/24 15:58 DCW [id number]) Hip Strength Hip Manual Muscle Testing Right Flexion (L2) 1 Trace Extension (S1) 2- Poor- Adduction 2- Poor- Left Flexion (L2) 1 Trace Extension (S1) 2- Poor- Adduction 1 Trace Knee Strength Knee Manual Muscle Testing Right Flexion (S2) 2- Poor- Extension (L3) 1 Trace Left Flexion (S2) 2- Poor- Extension (L3) 1 Trace Ankle/Foot Strength Ankle and Foot Manual Muscle Testing Right Plantarflexion (S1) 2- Poor- Left Plantarflexion (S1) 1 Trace PT-OP-Q Treatments Start: 03/08/22 17:00 Freq: Status: Active Protocol: Document 02/10/24 13:51 SP (Rec: 02/10/24 14:33 SP [id number]) Gym Equipment Therapeutic Ball Quadruped Exercise Details Quadruped with chest on ball, rolling fwd/back Ball Size/Color Blue - 45 cm (trial orange 55cm tball next tx) Therapeutic Exercises Supine Exercises Hip Flexor Stretch Supine Exercise Name Hip Flexor Stretch (LE extension) Side bilateral Resistance 2-3 pillows under head Equipment Used manual AP at distal femur PROM Reps/Minutes 30 x2 Comments reports good hip flexor and back stretch Therapeutic Activity Therapeutic Activity Log roll, SL scoot Comments -L SL lateral scoot trunk, to get away from EOB at right to allow roll into supine. -Mod A to Log roll supine> L SL (on right side table) tall kneel Name 12 box, Reps/Minutes hold 30 sec x2 (therapist assist box mgt) Comments Mod- MaxA as reps to come to tall kneeling, fair hip and trunk ext. Min A for safety maintain tall kneel, while also support 12 box flat on table squat/lateral scoot transfer Name lateral scoot transfer heavy BUEs, wc<> mat table, lateral side table Comments w/c> elevated mat table, then along side of mat table self scoot and each LE repositioning while maitaining trunk stability. supine>prone>quadruped Name Mod/Max into quadruped/ Min control Assist quad to SL, heavy pt BUE support Comments L more challenging PT-OP-T Assessment and Plan Start: 03/08/22 17:00 Freq: Status: Active Protocol: Document 02/10/24 13:51 SP (Rec: 02/10/24 14:33 SP [id number]) Physical Therapy Assessment Goals Three Impairment Pt does not have any motor function throughout bilateral LEs Short Term Goal (STG) Pt to demonstrate 1/5 trace motor contraction in at least one quad in order to begin focus on LE mobility if neural functional return begins. STG Duration Met Detention Worker Goal (LTG) Pt to demonstrate right quad strength to at least 2/5, demonstrating movement into ROM in an antigravity position LTG Duration 04/21/24 Two Impairment Pt struggles with lateral transfer/scooting along EOB Alf Goal (LTG) Pt to perform lateral scoot transfer using proper technique without any verbal cues 4x in a row. LTG Duration 04/22/24 One Impairment Pt does not have an appropriate home exercise program Short Term Goal (STG) Pt to be independent and compliant with an appropriate HEP STG Duration 04/22/24 Assessment Summary Assessment Pt more challenged log roll to L SL Min-Mod A and required Mod/Max A L SL> quadruped. Hard time getting LUE out from under him then pushing into UE WB. He required inc reased support into tall kneel /c BUE wB on 12 box ModMax A. Spent time slower lateral scoots elevated surfaces and more frequent reps to complete vs large quick throwing self. Was able to complete distance lateral scoot up side mat table and self reposition each LE while UE move a leg and quick reposition on bed for recovery trunk stability. Physical Therapy Plan Frequency and Duration Frequency of Treatment 2x/Week Plan of Care Start Date 01/23/24 Plan of Care End Date 04/22/24 Therapeutic Interventions Therapeutic Interventions Aquatic Therapy,Balance Training,Coordination Training ,Gait Training,Home Exercise Program,Manual Therapy, Neuromuscular Re-education, Orthotic/Prosthetic Management ,Patient/Caregiver Education, Self-Care/Home Management, Sensory Integration,Soft Tissue Mobilization, Therapeutic Activities, Therapeutic Exercises, Wheelchair Management Next Visit Focus/Plan Next Note Type Treatment Note Next Visit Plan Continue L log roll, L SL> quadruped, Lateral transfers to elevated surfaces more trunk flexion/frequent scoots decreased assist, Wheelchair wheelies, curb management, POC: Continue UE and core strengthening, LE PROM and manual stretching. Transfers, mobility, LE ROM, pt will benefit from continued breakdown of transfers to improve efficiency and mechanics, as well as working on more seated balance EOB.
--- NOTE | 2024-02-10 14:31 | PT.OTN ---
Current Diagnoses Paraplegia, unspecified (02/10/24) Other specified personal risk factors, not elsewhere classified (02/10/24) Other specified postprocedural states (02/10/24) Physical Therapy Treatment Note PT-OP-A Visit Information Start: 03/08/22 17:00 Freq: Status: Active Protocol: Document 02/10/24 13:51 SP (Rec: 02/10/24 14:33 SP [id number]) Out-Patient Physical Therapy Visit Information Visit Information Visit Type Treatment Note Visit Note 10/19 after PN Visit Start Time 13:51 Visit Stop Time 14:31 Visit Number [id number] Number of CONSTRUCTION ELECTRICIAN Visits 1 Evaluation Information Evaluation Date 03/08/22 PT-OP-B Current Condition Start: 03/08/22 17:00 Freq: Status: Active Protocol: Document 03/08/22 11:15 DCW (Rec: 03/08/22 17:11 DCW [id number]) Current Condition History of Current Condition Onset Date 12/16/21 Current Complaints Paraplegia History of Current Condition Pt is a 71 year old male with a very unfortunate medical history. Pt was hiking [place] on 12/16/21 with a friend, finished up, drive back to his friend's home to drop him off, and noticed his left leg was collapsing. By the time pt drove home, both legs were giving out and numb. Pt was suddenly paralized from the waist down, was taken to the ED, and was flown to [facility] on 12/17/21. The following day, he underwent a laminectomy to relieve pressure from the thoracic epidural hematoma which had developed following his hike, which was pressing on his spinal cord. Following surgery , pt was in recovery for a week and was then transfered to rehab for 20 days, when he was finally discharged home in a wheelchair on 01/19/22. Pt reports his surgeon informed him that it is a possibility that he gets some return of nerve function. Has experienced some changes in his right LE, but has no motor function at this time from ~ T10 down. Minimal sensory return on right side, none on left. Pt has been anxious to get in to therapy and do everything he can to help return to function. Pt's , who attended his evaluation, notes that she has been doing a lot of PROM in his legs at night to keep everything moving. Pt can feel some stretching during PROM in his right leg. Pt has additionally already started occupational therapy, and has been practicing some seated stabilization. Pt transfers with a slide board, but notes it is difficult to do into his car, because he has to transfer upward at an incline. Treatment Goals Patient/Caregiver Goals I will do anything possible to get out of this wheelchair. My neurologist told me he has seen people recover from this , so I am not giving up hope. PT-OP-C Subjective Start: 03/08/22 17:00 Freq: Status: Active Protocol: Document 02/10/24 13:51 SP (Rec: 02/10/24 14:33 SP [id number]) OP-PT Subjective Patient Comments Patient Comments Pt reports has reached this point that the gradual improvement in sensation in whole body along R side: back and legs. PT-OP-G Mobility & Gait Start: 03/08/22 17:00 Freq: Status: Active Protocol: Document 01/23/24 15:22 DCW (Rec: 01/23/24 15:58 DCW [id number]) OP Mobility Evaluation Transfers Bed to Chair Transfers Transfers using UE, improved with side-side movement, requires verbal cues for LE positioning Car Transfers uses slide board, stabilizes front to back and prevent slide down board Wheelchair Management Type of Wheelchair Manual w/c Assessment Details Unable to perform tilt back to get over curb. Able to clear 2 obstacle 60-70% of the time . Holds wheelie 1:01.95 PT-OP-H Neuro Start: 03/08/22 17:00 Freq: Status: Active Protocol: Document 01/23/24 15:22 DCW (Rec: 01/23/24 15:58 DCW [id number]) Sensation Evaluation Gross Sensation Gross Sensation Left LE Impaired,Right LE Impaired,Trunk Impaired Sensation Description Paresthesia,Numbness,Tingling, Pins & [place],Burning Dermatome Impairments L1,L2,L3,L4,L5,S1,S2,S3,S4-5 Location Details Right Leg Light Touch Impaired Sharp/Dull Impaired Deep Pressure Intact/Normal Hot/Cold Absent Protective Sensation Absent Proprioception (Position) Impaired Kinesthesia (Movement) Impaired Two-Point Discrimination Impaired Tactile Localization Impaired Stereognosis Impaired Left Leg Light Touch Absent Sharp/Dull Absent Deep Pressure Impaired Hot/Cold Impaired Protective Sensation Absent Proprioception (Position) Absent Kinesthesia (Movement) Impaired Two-Point Discrimination Absent Tactile Localization Absent Stereognosis Absent Comments Summary Comments B protective reflex vs sharp present Deep Tendon Reflex & Clonus Assessment Deep Tendon Reflex Right Achilles Deep Tendon Reflex 2+ Normal Right Patellar Deep Tendon Reflex 2+ Normal Left Achilles Deep Tendon Reflex 2+ Normal Left Patellar Deep Tendon Reflex 1+ Diminished Ankle Clonus Right Clonus Assessment Sustained Left Clonus Assessment Sustained Muscle Tone Tone Assessment Right Lower Extremity Flexor Tone Description Moderate Hypertonicity Extensor Tone Description Moderate Hypertonicity Left Lower Extremity Flexor Tone Description Moderate Hypertonicity Extensor Tone Description Moderate Hypertonicity PT-OP-J Posture/Palpation/Skin Start: 03/08/22 17:00 Freq: Status: Active Protocol: Document 01/23/24 15:22 DCW (Rec: 01/23/24 15:58 DCW [id number]) Posture Evaluation Comments Posture Comments Sitting EOB with good core control and no instability. Recovers from most directional pushing. Improved ability to reach outside of base of support. PT-OP-M Strength Start: 08/21/22 15:38 Freq: Status: Active Protocol: Document 01/23/24 15:22 DCW (Rec: 01/23/24 15:58 DCW [id number]) Hip Strength Hip Manual Muscle Testing Right Flexion (L2) 1 Trace Extension (S1) 2- Poor- Adduction 2- Poor- Left Flexion (L2) 1 Trace Extension (S1) 2- Poor- Adduction 1 Trace Knee Strength Knee Manual Muscle Testing Right Flexion (S2) 2- Poor- Extension (L3) 1 Trace Left Flexion (S2) 2- Poor- Extension (L3) 1 Trace Ankle/Foot Strength Ankle and Foot Manual Muscle Testing Right Plantarflexion (S1) 2- Poor- Left Plantarflexion (S1) 1 Trace PT-OP-Q Treatments Start: 03/08/22 17:00 Freq: Status: Active Protocol: Document 02/10/24 13:51 SP (Rec: 02/10/24 14:33 SP [id number]) Gym Equipment Therapeutic Ball Quadruped Exercise Details Quadruped with chest on ball, rolling fwd/back Ball Size/Color Blue - 45 cm (trial orange 55cm tball next tx) Therapeutic Exercises Supine Exercises Hip Flexor Stretch Supine Exercise Name Hip Flexor Stretch (LE extension) Side bilateral Resistance 2-3 pillows under head Equipment Used manual AP at distal femur PROM Reps/Minutes 30 x2 Comments reports good hip flexor and back stretch Therapeutic Activity Therapeutic Activity Log roll, SL scoot Comments -L SL lateral scoot trunk, to get away from EOB at right to allow roll into supine. -Mod A to Log roll supine> L SL (on right side table) tall kneel Name 12 box, Reps/Minutes hold 30 sec x2 (therapist assist box mgt) Comments Mod- MaxA as reps to come to tall kneeling, fair hip and trunk ext. Min A for safety maintain tall kneel, while also support 12 box flat on table squat/lateral scoot transfer Name lateral scoot transfer heavy BUEs, wc<> mat table, lateral side table Comments w/c> elevated mat table, then along side of mat table self scoot and each LE repositioning while maitaining trunk stability. supine>prone>quadruped Name Mod/Max into quadruped/ Min control Assist quad to SL, heavy pt BUE support Comments L more challenging PT-OP-T Assessment and Plan Start: 03/08/22 17:00 Freq: Status: Active Protocol: Document 02/10/24 13:51 SP (Rec: 02/10/24 14:33 SP [id number]) Physical Therapy Assessment Goals Three Impairment Pt does not have any motor function throughout bilateral LEs Short Term Goal (STG) Pt to demonstrate 1/5 trace motor contraction in at least one quad in order to begin focus on LE mobility if neural functional return begins. STG Duration Met Cable Television Program Director Goal (LTG) Pt to demonstrate right quad strength to at least 2/5, demonstrating movement into ROM in an antigravity position LTG Duration 04/21/24 Two Impairment Pt struggles with lateral transfer/scooting along EOB Chcf Goal (LTG) Pt to perform lateral scoot transfer using proper technique without any verbal cues 4x in a row. LTG Duration 04/22/24 One Impairment Pt does not have an appropriate home exercise program Short Term Goal (STG) Pt to be independent and compliant with an appropriate HEP STG Duration 04/22/24 Assessment Summary Assessment Pt more challenged log roll to L SL Min-Mod A and required Mod/Max A L SL> quadruped. Hard time getting LUE out from under him then pushing into UE WB. Spent time slower lateral scoots elevated surfaces and more frequent reps to complete vs large quick throwing self. Was able to complete distance lateral scoot up side mat table and self reposition each LE while UE move a leg and quick reposition on bed for recovery trunk stability. Physical Therapy Plan Frequency and Duration Frequency of Treatment 2x/Week Plan of Care Start Date 01/23/24 Plan of Care End Date 04/22/24 Therapeutic Interventions Therapeutic Interventions Aquatic Therapy,Balance Training,Coordination Training ,Gait Training,Home Exercise Program,Manual Therapy, Neuromuscular Re-education, Orthotic/Prosthetic Management ,Patient/Caregiver Education, Self-Care/Home Management, Sensory Integration,Soft Tissue Mobilization, Therapeutic Activities, Therapeutic Exercises, Wheelchair Management Next Visit Focus/Plan Next Note Type Treatment Note Next Visit Plan Continue L log roll, L SL> quadruped, Lateral transfers to elevated surfaces more trunk flexion/frequent scoots decreased assist, Wheelchair wheelies, curb management, POC: Continue UE and core strengthening, LE PROM and manual stretching. Transfers, mobility, LE ROM, pt will benefit from continued breakdown of transfers to improve efficiency and mechanics, as well as working on more seated balance EOB.
--- NOTE | 2024-02-12 16:06 | PT.OTN ---
Current Diagnoses Paraplegia, unspecified (02/12/24) Other specified personal risk factors, not elsewhere classified (02/12/24) Other specified postprocedural states (02/12/24) Physical Therapy Treatment Note PT-OP-A Visit Information Start: 03/08/22 17:00 Freq: Status: Active Protocol: Document 02/12/24 15:20 DCW (Rec: 02/12/24 16:06 DCW [id number]) Out-Patient Physical Therapy Visit Information Visit Information Visit Type Treatment Note Visit Note 11/18 after PN Visit Start Time 15:20 Visit Stop Time 16:00 Visit Number [id number] Number of MARINE STEWARD Visits 0 Evaluation Information Evaluation Date 03/08/22 PT-OP-B Current Condition Start: 03/08/22 17:00 Freq: Status: Active Protocol: Document 03/08/22 11:15 DCW (Rec: 03/08/22 17:11 DCW [id number]) Current Condition History of Current Condition Onset Date 12/16/21 Current Complaints Paraplegia History of Current Condition Pt is a 71 year old male with a very unfortunate medical history. Pt was hiking [place] on 12/16/21 with a friend, finished up, drive back to his friend's home to drop him off, and noticed his left leg was collapsing. By the time pt drove home, both legs were giving out and numb. Pt was suddenly paralized from the waist down, was taken to the ED, and was flown to [facility] on 12/17/21. The following day, he underwent a laminectomy to relieve pressure from the thoracic epidural hematoma which had developed following his hike, which was pressing on his spinal cord. Following surgery , pt was in recovery for a week and was then transfered to rehab for 20 days, when he was finally discharged home in a wheelchair on 01/19/22. Pt reports his surgeon informed him that it is a possibility that he gets some return of nerve function. Has experienced some changes in his right LE, but has no motor function at this time from ~ T10 down. Minimal sensory return on right side, none on left. Pt has been anxious to get in to therapy and do everything he can to help return to function. Pt's , who attended his evaluation, notes that she has been doing a lot of PROM in his legs at night to keep everything moving. Pt can feel some stretching during PROM in his right leg. Pt has additionally already started occupational therapy, and has been practicing some seated stabilization. Pt transfers with a slide board, but notes it is difficult to do into his car, because he has to transfer upward at an incline. Treatment Goals Patient/Caregiver Goals I will do anything possible to get out of this wheelchair. My neurologist told me he has seen people recover from this , so I am not giving up hope. PT-OP-C Subjective Start: 03/08/22 17:00 Freq: Status: Active Protocol: Document 02/12/24 15:20 DCW (Rec: 02/12/24 16:06 DCW [id number]) OP-PT Subjective Patient Comments Patient Comments Pt feeling good today, no current concerns. Feels like the recent focus on UE strength/push-ups have been beneficial. Concerned about recent weight gain. PT-OP-G Mobility & Gait Start: 03/08/22 17:00 Freq: Status: Active Protocol: Document 01/23/24 15:22 DCW (Rec: 01/23/24 15:58 DCW [id number]) OP Mobility Evaluation Transfers Bed to Chair Transfers Transfers using UE, improved with side-side movement, requires verbal cues for LE positioning Car Transfers uses slide board, stabilizes front to back and prevent slide down board Wheelchair Management Type of Wheelchair Manual w/c Assessment Details Unable to perform tilt back to get over curb. Able to clear 2 obstacle 60-70% of the time . Holds wheelie 1:01.95 PT-OP-H Neuro Start: 03/08/22 17:00 Freq: Status: Active Protocol: Document 01/23/24 15:22 DCW (Rec: 01/23/24 15:58 DC [id number]) Sensation Evaluation Gross Sensation Gross Sensation Left LE Impaired,Right LE Impaired,Trunk Impaired Sensation Description Paresthesia,Numbness,Tingling, Pins & Waddy,Burning Dermatome Impairments L1,L2,L3,L4,L5,S1,S2,S3,S4-5 Location Details Right Leg Light Touch Impaired Sharp/Dull Impaired Deep Pressure Intact/Normal Hot/Cold Absent Protective Sensation Absent Proprioception (Position) Impaired Kinesthesia (Movement) Impaired Two-Point Discrimination Impaired Tactile Localization Impaired Stereognosis Impaired Left Leg Light Touch Absent Sharp/Dull Absent Deep Pressure Impaired Hot/Cold Impaired Protective Sensation Absent Proprioception (Position) Absent Kinesthesia (Movement) Impaired Two-Point Discrimination Absent Tactile Localization Absent Stereognosis Absent Comments Summary Comments B protective reflex vs sharp present Deep Tendon Reflex & Clonus Assessment Deep Tendon Reflex Right Achilles Deep Tendon Reflex 2+ Normal Right Patellar Deep Tendon Reflex 2+ Normal Left Achilles Deep Tendon Reflex 2+ Normal Left Patellar Deep Tendon Reflex 1+ Diminished Ankle Clonus Right Clonus Assessment Sustained Left Clonus Assessment Sustained Muscle Tone Tone Assessment Right Lower Extremity Flexor Tone Description Moderate Hypertonicity Extensor Tone Description Moderate Hypertonicity Left Lower Extremity Flexor Tone Description Moderate Hypertonicity Extensor Tone Description Moderate Hypertonicity PT-OP-J Posture/Palpation/Skin Start: 03/08/22 17:00 Freq: Status: Active Protocol: Document 01/23/24 15:22 DCW (Rec: 01/23/24 15:58 DCW [id number]) Posture Evaluation Comments Posture Comments Sitting EOB with good core control and no instability. Recovers from most directional pushing. Improved ability to reach outside of base of support. PT-OP-M Strength Start: 08/21/22 15:38 Freq: Status: Active Protocol: Document 01/23/24 15:22 DCW (Rec: 01/23/24 15:58 DCW [id number]) Hip Strength Hip Manual Muscle Testing Right Flexion (L2) 1 Trace Extension (S1) 2- Poor- Adduction 2- Poor- Left Flexion (L2) 1 Trace Extension (S1) 2- Poor- Adduction 1 Trace Knee Strength Knee Manual Muscle Testing Right Flexion (S2) 2- Poor- Extension (L3) 1 Trace Left Flexion (S2) 2- Poor- Extension (L3) 1 Trace Ankle/Foot Strength Ankle and Foot Manual Muscle Testing Right Plantarflexion (S1) 2- Poor- Left Plantarflexion (S1) 1 Trace PT-OP-Q Treatments Start: 03/08/22 17:00 Freq: Status: Active Protocol: Document 02/12/24 15:20 DCW (Rec: 02/12/24 16:06 DCW [id number]) Cardio Equipment Recumbent Elliptical (BiodProcurics) Duration (Minutes) 10 Resistance 11 Seat Position 10 Gym Equipment Therapeutic Ball Quadruped Exercise Details Quadruped with chest on ball, rolling fwd/back Ball Size/Color Red - 55 cm trial, returned to Blue - 45 cm Therapeutic Exercises Other Exercises Long-kneeling Other Exercise Name Long kneeling /c self thigh support Reps/Minutes x3 ea Comments cues for breath Push-ups Other Exercise Name Push-ups in quadruped Approximation Other Exercise Name Hip approximation in quad, therapist overpressure through hips quadruped Resistance CGA Reps/Minutes 5x2 sets Comments pt self heavy support BUEs PT-OP-T Assessment and Plan Start: 03/08/22 17:00 Freq: Status: Active Protocol: Document 02/12/24 15:20 DCW (Rec: 02/12/24 16:06 DCW [id number]) Physical Therapy Assessment Impairments Impairments Activity Tolerance,Balance, Coordination,Functional Activities,Functional Mobility ,Gait,Integument,Sensation, Soft Tissue Mobility,Strength, Tone,Transfers Goals Three Impairment Pt does not have any motor function throughout bilateral LEs Short Term Goal (STG) Pt to demonstrate 1/5 trace motor contraction in at least one quad in order to begin focus on LE mobility if neural functional return begins. STG Duration Met Longterm Goal (LTG) Pt to demonstrate right quad strength to at least 2/5, demonstrating movement into ROM in an antigravity position LTG Duration 04/21/24 Two Impairment Pt struggles with lateral transfer/scooting along EOB Mental Health Director Goal (LTG) Pt to perform lateral scoot transfer using proper technique without any verbal cues 4x in a row. LTG Duration 04/22/24 One Impairment Pt does not have an appropriate home exercise program Short Term Goal (STG) Pt to be independent and compliant with an appropriate HEP STG Duration 04/22/24 Assessment Summary Assessment Pt again did very well rolling onto his right from supine, significantly easier than rolling to his left. May benefit from working more rolling to the left, continued work into quadruped and arm strengthening, increased activity tolerance, and w/c mobility. Physical Therapy Plan Frequency and Duration Frequency of Treatment 2x/Week Plan of Care Start Date 01/23/24 Plan of Care End Date 04/22/24 Therapeutic Interventions Therapeutic Interventions Aquatic Therapy,Balance Training,Coordination Training ,Gait Training,Home Exercise Program,Manual Therapy, Neuromuscular Re-education, Orthotic/Prosthetic Management ,Patient/Caregiver Education, Self-Care/Home Management, Sensory Integration,Soft Tissue Mobilization, Therapeutic Activities, Therapeutic Exercises, Wheelchair Management Next Visit Focus/Plan Next Note Type Treatment Note Next Visit Plan Continue L log roll, L SL> quadruped, Lateral transfers to elevated surfaces more trunk flexion/frequent scoots decreased assist, Wheelchair wheelies, curb management, POC: Continue UE and core strengthening, LE PROM and manual stretching. Transfers, mobility, LE ROM, pt will benefit from continued breakdown of transfers to improve efficiency and mechanics, as well as working on more seated balance EOB.
--- NOTE | 2024-02-17 17:24 | PT.OTN ---
Current Diagnoses Paraplegia, unspecified (02/17/24) Other specified personal risk factors, not elsewhere classified (02/17/24) Other specified postprocedural states (02/17/24) Physical Therapy Treatment Note PT-OP-A Visit Information Start: 03/08/22 17:00 Freq: Status: Active Protocol: Document 02/17/24 17:06 NBM (Rec: 02/17/24 17:24 NBM [id number]) Out-Patient Physical Therapy Visit Information Visit Information Visit Type Treatment Note Visit Note 12/19 after PN Visit Start Time 15:25 Visit Stop Time 16:05 Visit Number [id number] Number of CLINIC RECEPTIONIST Visits 1 Evaluation Information Evaluation Date 03/08/22 PT-OP-B Current Condition Start: 03/08/22 17:00 Freq: Status: Active Protocol: Document 03/08/22 11:15 DCW (Rec: 03/08/22 17:11 DCW [id number]) Current Condition History of Current Condition Onset Date 12/16/21 Current Complaints Paraplegia History of Current Condition Pt is a 71 year old male with a very unfortunate medical history. Pt was hiking [place] on 12/16/21 with a friend, finished up, drive back to his friend's home to drop him off, and noticed his left leg was collapsing. By the time pt drove home, both legs were giving out and numb. Pt was suddenly paralized from the waist down, was taken to the ED, and was flown to [facility] on 12/17/21. The following day, he underwent a laminectomy to relieve pressure from the thoracic epidural hematoma which had developed following his hike, which was pressing on his spinal cord. Following surgery , pt was in recovery for a week and was then transfered to rehab for 20 days, when he was finally discharged home in a wheelchair on 01/19/22. Pt reports his surgeon informed him that it is a possibility that he gets some return of nerve function. Has experienced some changes in his right LE, but has no motor function at this time from ~ T10 down. Minimal sensory return on right side, none on left. Pt has been anxious to get in to therapy and do everything he can to help return to function. Pt's , who attended his evaluation, notes that she has been doing a lot of PROM in his legs at night to keep everything moving. Pt can feel some stretching during PROM in his right leg. Pt has additionally already started occupational therapy, and has been practicing some seated stabilization. Pt transfers with a slide board, but notes it is difficult to do into his car, because he has to transfer upward at an incline. Treatment Goals Patient/Caregiver Goals I will do anything possible to get out of this wheelchair. My neurologist told me he has seen people recover from this , so I am not giving up hope. PT-OP-C Subjective Start: 03/08/22 17:00 Freq: Status: Active Protocol: Document 02/17/24 17:06 [facility] (Rec: 02/17/24 17:24 [facility] [id number]) OP-PT Subjective Patient Comments Patient Comments Toby reports he used therabands for upper extremity workout. It's easier for him to transfer from wheelchair to all fours rolling to his right and is much more challenging rolling to his left. He likes the upper body work. PT-OP-G Mobility & Gait Start: 03/08/22 17:00 Freq: Status: Active Protocol: Document 01/23/24 15:22 DCW (Rec: 01/23/24 15:58 [facility] [id number]) OP Mobility Evaluation Transfers Bed to Chair Transfers Transfers using UE, improved with side-side movement, requires verbal cues for LE positioning Car Transfers uses slide board, stabilizes front to back and prevent slide down board Wheelchair Management Type of Wheelchair Manual w/c Assessment Details Unable to perform tilt back to get over curb. Able to clear 2 obstacle 60-70% of the time . Holds wheelie 1:01.95 PT-OP-H Neuro Start: 03/08/22 17:00 Freq: Status: Active Protocol: Document 01/23/24 15:22 DCW (Rec: 01/23/24 15:58 [facility] [id number]) Sensation Evaluation Gross Sensation Gross Sensation Left LE Impaired,Right LE Impaired,Trunk Impaired Sensation Description Paresthesia,Numbness,Tingling, Pins & [place],Burning Dermatome Impairments L1,L2,L3,L4,L5,S1,S2,S3,S4-5 Location Details Right Leg Light Touch Impaired Sharp/Dull Impaired Deep Pressure Intact/Normal Hot/Cold Absent Protective Sensation Absent Proprioception (Position) Impaired Kinesthesia (Movement) Impaired Two-Point Discrimination Impaired Tactile Localization Impaired Stereognosis Impaired Left Leg Light Touch Absent Sharp/Dull Absent Deep Pressure Impaired Hot/Cold Impaired Protective Sensation Absent Proprioception (Position) Absent Kinesthesia (Movement) Impaired Two-Point Discrimination Absent Tactile Localization Absent Stereognosis Absent Comments Summary Comments B protective reflex vs sharp present Deep Tendon Reflex & Clonus Assessment Deep Tendon Reflex Right Achilles Deep Tendon Reflex 2+ Normal Right Patellar Deep Tendon Reflex 2+ Normal Left Achilles Deep Tendon Reflex 2+ Normal Left Patellar Deep Tendon Reflex 1+ Diminished Ankle Clonus Right Clonus Assessment Sustained Left Clonus Assessment Sustained Muscle Tone Tone Assessment Right Lower Extremity Flexor Tone Description Moderate Hypertonicity Extensor Tone Description Moderate Hypertonicity Left Lower Extremity Flexor Tone Description Moderate Hypertonicity Extensor Tone Description Moderate Hypertonicity PT-OP-J Posture/Palpation/Skin Start: 03/08/22 17:00 Freq: Status: Active Protocol: Document 01/23/24 15:22 DCW (Rec: 01/23/24 15:58 DCW [id number]) Posture Evaluation Comments Posture Comments Sitting EOB with good core control and no instability. Recovers from most directional pushing. Improved ability to reach outside of base of support. PT-OP-M Strength Start: 08/21/22 15:38 Freq: Status: Active Protocol: Document 01/23/24 15:22 DCW (Rec: 01/23/24 15:58 DC [id number]) Hip Strength Hip Manual Muscle Testing Right Flexion (L2) 1 Trace Extension (S1) 2- Poor- Adduction 2- Poor- Left Flexion (L2) 1 Trace Extension (S1) 2- Poor- Adduction 1 Trace Knee Strength Knee Manual Muscle Testing Right Flexion (S2) 2- Poor- Extension (L3) 1 Trace Left Flexion (S2) 2- Poor- Extension (L3) 1 Trace Ankle/Foot Strength Ankle and Foot Manual Muscle Testing Right Plantarflexion (S1) 2- Poor- Left Plantarflexion (S1) 1 Trace PT-OP-Q Treatments Start: 03/08/22 17:00 Freq: Status: Active Protocol: Document 02/17/24 17:06 NB (Rec: 02/17/24 17:24 NB [id number]) Therapeutic Exercises Sitting Exercises DL isometric press Sitting Exercise Name core and breathwork focus Side bilateral Equipment Used hands on knees in short kneeling position Reps/Minutes 3 x 10 SH Bicep curls to overhead press Sitting Exercise Name attempted, mod to 1. biceps curls 2. overhead press with breath focus Side bilateral Resistance 8# dumbbells Equipment Used mirror, modA at shoulders to maintain upright posture Reps/Minutes 1. x10 2. 2x5 Comments extensive cues for breathwork, initial cues for form Other Exercises Push-ups Other Exercise Name 1.Push-ups 2. serratus push-up plus Equipment Used GB CGA, pillow between arms Reps/Minutes x5 ea Comments quadruped quadruped child's pose Other Exercise Name quadruped child's pose and sit back stretching Comments cued reach UEs out front Therapeutic Activity Therapeutic Activity Log roll, SL scoot Comments -L SL lateral scoot trunk, to get away from EOB at right to allow roll into supine. SBA -CGA to Log roll supine> L SL (on right side table) squat/lateral scoot transfer Name lateral scoot transfer heavy BUEs, wc<> mat table, lateral side table Comments w/c<> elevated mat table, then along side of mat table self scoot and each LE repositioning while maitaining trunk stability. supine>prone>quadruped Name SBA/CGA: into quadruped<> L SL , heavy pt BUE support Comments Pt reports easier today than previous attempts. Neuro Re-Education Treatment Balance Activities weightshifting Details mediolateral weightshiftin . short kneeling 2. quadruped Surface mat table Equipment GB CGA Reps/Duration x5 ea Comments to limits of base of support. Pt fatigues. PT-OP-T Assessment and Plan Start: 03/08/22 17:00 Freq: Status: Active Protocol: Document 02/17/24 17:06 [facility] (Rec: 02/17/24 17:24 [facility] [id number]) Physical Therapy Assessment Goals Three Impairment Pt does not have any motor function throughout bilateral LEs Short Term Goal (STG) Pt to demonstrate 1/5 trace motor contraction in at least one quad in order to begin focus on LE mobility if neural functional return begins. STG Duration Met House Director Goal (LTG) Pt to demonstrate right quad strength to at least 2/5, demonstrating movement into ROM in an antigravity position LTG Duration 04/21/24 Two Impairment Pt struggles with lateral transfer/scooting along EOB House Director Goal (LTG) Pt to perform lateral scoot transfer using proper technique without any verbal cues 4x in a row. LTG Duration 04/22/24 One Impairment Pt does not have an appropriate home exercise program Short Term Goal (STG) Pt to be independent and compliant with an appropriate HEP STG Duration 04/22/24 Assessment Summary Assessment Toby is able to complete transition with SBA/CGA from w /c to sitting EOB, then to sidelying on L using log roll method into prone and push up into quadruped then short kneeling with hands on knees today and reverse, and he reports this is the fastest he obtained quadruped positioning rolling L. He is also able to achieve and maintain short kneel with knees and feet closer together than previous attempts. His UE fatigues with pushups in quadruped likely related to UE work at beginning of session. He requires significant cueing for breathwork initially with UE exercises SOS but improves with repetition and visual feedback . Physical Therapy Plan Frequency and Duration Frequency of Treatment 2x/Week Plan of Care Start Date 01/23/24 Plan of Care End Date 04/22/24 Therapeutic Interventions Therapeutic Interventions Aquatic Therapy,Balance Training,Coordination Training ,Gait Training,Home Exercise Program,Manual Therapy, Neuromuscular Re-education, Orthotic/Prosthetic Management ,Patient/Caregiver Education, Self-Care/Home Management, Sensory Integration,Soft Tissue Mobilization, Therapeutic Activities, Therapeutic Exercises, Wheelchair Management Next Visit Focus/Plan Next Note Type Treatment Note Next Visit Plan Continue L log roll, L SL> quadruped, Lateral transfers to elevated surfaces more trunk flexion/frequent scoots decreased assist, Wheelchair wheelies, curb management, POC: Continue UE and core strengthening, LE PROM and manual stretching. Transfers, mobility, LE ROM, pt will benefit from continued breakdown of transfers to improve efficiency and mechanics, as well as working on more seated balance EOB.
--- NOTE | 2024-02-19 16:04 | PT.OTN ---
Current Diagnoses Paraplegia, unspecified (02/19/24) Other specified personal risk factors, not elsewhere classified (02/19/24) Other specified postprocedural states (02/19/24) Physical Therapy Treatment Note PT-OP-A Visit Information Start: 03/08/22 17:00 Freq: Status: Active Protocol: Document 02/19/24 15:15 DCW (Rec: 02/19/24 16:04 DCW [id number]) Out-Patient Physical Therapy Visit Information Visit Information Visit Type Treatment Note Visit Note 11/18 after PN Visit Start Time 15:15 Visit Stop Time 16:00 Visit Number [id number] Number of CASINO G[employer]ING WORKER Visits 0 Evaluation Information Evaluation Date 03/08/22 PT-OP-B Current Condition Start: 03/08/22 17:00 Freq: Status: Active Protocol: Document 03/08/22 11:15 DCW (Rec: 03/08/22 17:11 DCW [id number]) Current Condition History of Current Condition Onset Date 12/16/21 Current Complaints Paraplegia History of Current Condition Pt is a 71 year old male with a very unfortunate medical history. Pt was hiking [employer] on 12/16/21 with a friend, finished up, drive back to his friend's home to drop him off, and noticed his left leg was collapsing. By the time pt drove home, both legs were giving out and numb. Pt was suddenly paralized from the waist down, was taken to the ED, and was flown to [facility] on 12/17/21. The following day, he underwent a laminectomy to relieve pressure from the thoracic epidural hematoma which had developed following his hike, which was pressing on his spinal cord. Following surgery , pt was in recovery for a week and was then transfered to rehab for 20 days, when he was finally discharged home in a wheelchair on 01/19/22. Pt reports his surgeon informed him that it is a possibility that he gets some return of nerve function. Has experienced some changes in his right LE, but has no motor function at this time from ~ T10 down. Minimal sensory return on right side, none on left. Pt has been anxious to get in to therapy and do everything he can to help return to function. Pt's , who attended his evaluation, notes that she has been doing a lot of PROM in his legs at night to keep everything moving. Pt can feel some stretching during PROM in his right leg. Pt has additionally already started occupational therapy, and has been practicing some seated stabilization. Pt transfers with a slide board, but notes it is difficult to do into his car, because he has to transfer upward at an incline. Treatment Goals Patient/Caregiver Goals I will do anything possible to get out of this wheelchair. My neurologist told me he has seen people recover from this , so I am not giving up hope. PT-OP-C Subjective Start: 03/08/22 17:00 Freq: Status: Active Protocol: Document 02/19/24 15:15 DCW (Rec: 02/19/24 16:04 DCW [id number]) OP-PT Subjective Patient Comments Patient Comments Pt notes that his legs are still spasming on him fairly spontaneously, but overall feeling good. PT-OP-G Mobility & Gait Start: 03/08/22 17:00 Freq: Status: Active Protocol: Document 01/23/24 15:22 DCW (Rec: 01/23/24 15:58 DCW [id number]) OP Mobility Evaluation Transfers Bed to Chair Transfers Transfers using UE, improved with side-side movement, requires verbal cues for LE positioning Car Transfers uses slide board, stabilizes front to back and prevent slide down board Wheelchair Management Type of Wheelchair Manual w/c Assessment Details Unable to perform tilt back to get over curb. Able to clear 2 obstacle 60-70% of the time . Holds wheelie 1:01.95 PT-OP-H Neuro Start: 03/08/22 17:00 Freq: Status: Active Protocol: Document 01/23/24 15:22 DCW (Rec: 01/23/24 15:58 DCW [id number]) Sensation Evaluation Gross Sensation Gross Sensation Left LE Impaired,Right LE Impaired,Trunk Impaired Sensation Description Paresthesia,Numbness,Tingling, Pins & [place],Burning Dermatome Impairments L1,L2,L3,L4,L5,S1,S2,S3,S4-5 Location Details Right Leg Light Touch Impaired Sharp/Dull Impaired Deep Pressure Intact/Normal Hot/Cold Absent Protective Sensation Absent Proprioception (Position) Impaired Kinesthesia (Movement) Impaired Two-Point Discrimination Impaired Tactile Localization Impaired Stereognosis Impaired Left Leg Light Touch Absent Sharp/Dull Absent Deep Pressure Impaired Hot/Cold Impaired Protective Sensation Absent Proprioception (Position) Absent Kinesthesia (Movement) Impaired Two-Point Discrimination Absent Tactile Localization Absent Stereognosis Absent Comments Summary Comments B protective reflex vs sharp present Deep Tendon Reflex & Clonus Assessment Deep Tendon Reflex Right Achilles Deep Tendon Reflex 2+ Normal Right Patellar Deep Tendon Reflex 2+ Normal Left Achilles Deep Tendon Reflex 2+ Normal Left Patellar Deep Tendon Reflex 1+ Diminished Ankle Clonus Right Clonus Assessment Sustained Left Clonus Assessment Sustained Muscle Tone Tone Assessment Right Lower Extremity Flexor Tone Description Moderate Hypertonicity Extensor Tone Description Moderate Hypertonicity Left Lower Extremity Flexor Tone Description Moderate Hypertonicity Extensor Tone Description Moderate Hypertonicity PT-OP-J Posture/Palpation/Skin Start: 03/08/22 17:00 Freq: Status: Active Protocol: Document 01/23/24 15:22 DCW (Rec: 01/23/24 15:58 DCW [id number]) Posture Evaluation Comments Posture Comments Sitting EOB with good core control and no instability. Recovers from most directional pushing. Improved ability to reach outside of base of support. PT-OP-M Strength Start: 08/21/22 15:38 Freq: Status: Active Protocol: Document 01/23/24 15:22 DCW (Rec: 01/23/24 15:58 DCW [id number]) Hip Strength Hip Manual Muscle Testing Right Flexion (L2) 1 Trace Extension (S1) 2- Poor- Adduction 2- Poor- Left Flexion (L2) 1 Trace Extension (S1) 2- Poor- Adduction 1 Trace Knee Strength Knee Manual Muscle Testing Right Flexion (S2) 2- Poor- Extension (L3) 1 Trace Left Flexion (S2) 2- Poor- Extension (L3) 1 Trace Ankle/Foot Strength Ankle and Foot Manual Muscle Testing Right Plantarflexion (S1) 2- Poor- Left Plantarflexion (S1) 1 Trace PT-OP-Q Treatments Start: 03/08/22 17:00 Freq: Status: Active Protocol: Document 02/19/24 15:15 DCW (Rec: 02/19/24 16:04 DCW [id number]) Cardio Equipment Recumbent Elliptical ([place]) Duration (Minutes) 10 Resistance 11 Seat Position 10 Therapeutic Exercises Other Exercises Thread the needle Other Exercise Name Thread the needle Side bilateral Comments Quadruped - Therapist assisted Long-kneeling Other Exercise Name Long kneeling /c self thigh support Reps/Minutes x3 ea Comments cues for breath Push-ups Other Exercise Name Push-ups in quadruped quadruped Resistance CGA Reps/Minutes 5x2 sets Comments pt self heavy support BUEs Therapeutic Activity Therapeutic Activity supine>prone>quadruped Name Mod Ax1: into quadruped<> L SL , heavy pt BUE support PT-OP-T Assessment and Plan Start: 03/08/22 17:00 Freq: Status: Active Protocol: Document 02/19/24 15:15 DCW (Rec: 02/19/24 16:04 DCW [id number]) Physical Therapy Assessment Impairments Impairments Activity Tolerance,Balance, Coordination,Functional Activities,Functional Mobility ,Gait,Integument,Sensation, Soft Tissue Mobility,Strength, Tone,Transfers Goals Three Impairment Pt does not have any motor function throughout bilateral LEs Short Term Goal (STG) Pt to demonstrate 1/5 trace motor contraction in at least one quad in order to begin focus on LE mobility if neural functional return begins. STG Duration Met Database Manager Goal (LTG) Pt to demonstrate right quad strength to at least 2/5, demonstrating movement into ROM in an antigravity position LTG Duration 04/21/24 Two Impairment Pt struggles with lateral transfer/scooting along EOB Chcf Goal (LTG) Pt to perform lateral scoot transfer using proper technique without any verbal cues 4x in a row. LTG Duration 04/22/24 One Impairment Pt does not have an appropriate home exercise program Short Term Goal (STG) Pt to be independent and compliant with an appropriate HEP STG Duration 04/22/24 Assessment Summary Assessment Pt had significantly more difficulty getting into quadruped today, ended up requiring Mod Ax1 to get prone ->quad. [place]ine to work on improving independence with bed mobility. Physical Therapy Plan Frequency and Duration Frequency of Treatment 2x/Week Plan of Care Start Date 01/23/24 Plan of Care End Date 04/22/24 Therapeutic Interventions Therapeutic Interventions Aquatic Therapy,Balance Training,Coordination Training ,Gait Training,Home Exercise Program,Manual Therapy, Neuromuscular Re-education, Orthotic/Prosthetic Management ,Patient/Caregiver Education, Self-Care/Home Management, Sensory Integration,Soft Tissue Mobilization, Therapeutic Activities, Therapeutic Exercises, Wheelchair Management Next Visit Focus/Plan Next Note Type Treatment Note Next Visit Plan Continue L log roll, L SL> quadruped, Lateral transfers to elevated surfaces more trunk flexion/frequent scoots decreased assist, Wheelchair wheelies, curb management, POC: Continue UE and core strengthening, LE PROM and manual stretching. Transfers, mobility, LE ROM, pt will benefit from continued breakdown of transfers to improve efficiency and mechanics, as well as working on more seated balance EOB.
--- NOTE | 2024-02-24 16:40 | PT.OTN ---
Current Diagnoses Paraplegia, unspecified (02/24/24) Other specified personal risk factors, not elsewhere classified (02/24/24) Other specified postprocedural states (02/24/24) Physical Therapy Treatment Note PT-OP-A Visit Information Start: 03/08/22 17:00 Freq: Status: Active Protocol: Document 02/24/24 15:46 NBM (Rec: 02/24/24 16:40 NBM [id number]) Out-Patient Physical Therapy Visit Information Visit Information Visit Type Treatment Note Visit Note 11/18 after PN Visit Start Time 15:21 Visit Stop Time 16:06 Visit Number [id number] Number of [employer] Visits 1 Evaluation Information Evaluation Date 03/08/22 PT-OP-B Current Condition Start: 03/08/22 17:00 Freq: Status: Active Protocol: Document 03/08/22 11:15 DCW (Rec: 03/08/22 17:11 DCW [id number]) Current Condition History of Current Condition Onset Date 12/16/21 Current Complaints Paraplegia History of Current Condition Pt is a 71 year old male with a very unfortunate medical history. Pt was hiking [place] on 12/16/21 with a friend, finished up, drive back to his friend's home to drop him off, and noticed his left leg was collapsing. By the time pt drove home, both legs were giving out and numb. Pt was suddenly paralized from the waist down, was taken to the ED, and was flown to [facility] on 12/17/21. The following day, he underwent a laminectomy to relieve pressure from the thoracic epidural hematoma which had developed following his hike, which was pressing on his spinal cord. Following surgery , pt was in recovery for a week and was then transfered to rehab for 20 days, when he was finally discharged home in a wheelchair on 01/19/22. Pt reports his surgeon informed him that it is a possibility that he gets some return of nerve function. Has experienced some changes in his right LE, but has no motor function at this time from ~ T10 down. Minimal sensory return on right side, none on left. Pt has been anxious to get in to therapy and do everything he can to help return to function. Pt's , who attended his evaluation, notes that she has been doing a lot of PROM in his legs at night to keep everything moving. Pt can feel some stretching during PROM in his right leg. Pt has additionally already started occupational therapy, and has been practicing some seated stabilization. Pt transfers with a slide board, but notes it is difficult to do into his car, because he has to transfer upward at an incline. Treatment Goals Patient/Caregiver Goals I will do anything possible to get out of this wheelchair. My neurologist told me he has seen people recover from this , so I am not giving up hope. PT-OP-C Subjective Start: 03/08/22 17:00 Freq: Status: Active Protocol: Document 02/24/24 15:46 NBM (Rec: 02/24/24 16:40 NBM [id number]) OP-PT Subjective Patient Comments Patient Comments Pt notes legs have been spasming with transfers lately . PT-OP-G Mobility & Gait Start: 03/08/22 17:00 Freq: Status: Active Protocol: Document 01/23/24 15:22 DCW (Rec: 01/23/24 15:58 DCW [id number]) OP Mobility Evaluation Transfers Bed to Chair Transfers Transfers using UE, improved with side-side movement, requires verbal cues for LE positioning Car Transfers uses slide board, stabilizes front to back and prevent slide down board Wheelchair Management Type of Wheelchair Manual w/c Assessment Details Unable to perform tilt back to get over curb. Able to clear 2 obstacle 60-70% of the time . Holds wheelie 1:01.95 PT-OP-H Neuro Start: 03/08/22 17:00 Freq: Status: Active Protocol: Document 01/23/24 15:22 DCW (Rec: 01/23/24 15:58 DCW [id number]) Sensation Evaluation Gross Sensation Gross Sensation Left LE Impaired,Right LE Impaired,Trunk Impaired Sensation Description Paresthesia,Numbness,Tingling, Pins & [place],Burning Dermatome Impairments L1,L2,L3,L4,L5,S1,S2,S3,S4-5 Location Details Right Leg Light Touch Impaired Sharp/Dull Impaired Deep Pressure Intact/Normal Hot/Cold Absent Protective Sensation Absent Proprioception (Position) Impaired Kinesthesia (Movement) Impaired Two-Point Discrimination Impaired Tactile Localization Impaired Stereognosis Impaired Left Leg Light Touch Absent Sharp/Dull Absent Deep Pressure Impaired Hot/Cold Impaired Protective Sensation Absent Proprioception (Position) Absent Kinesthesia (Movement) Impaired Two-Point Discrimination Absent Tactile Localization Absent Stereognosis Absent Comments Summary Comments B protective reflex vs sharp present Deep Tendon Reflex & Clonus Assessment Deep Tendon Reflex Right Achilles Deep Tendon Reflex 2+ Normal Right Patellar Deep Tendon Reflex 2+ Normal Left Achilles Deep Tendon Reflex 2+ Normal Left Patellar Deep Tendon Reflex 1+ Diminished Ankle Clonus Right Clonus Assessment Sustained Left Clonus Assessment Sustained Muscle Tone Tone Assessment Right Lower Extremity Flexor Tone Description Moderate Hypertonicity Extensor Tone Description Moderate Hypertonicity Left Lower Extremity Flexor Tone Description Moderate Hypertonicity Extensor Tone Description Moderate Hypertonicity PT-OP-J Posture/Palpation/Skin Start: 03/08/22 17:00 Freq: Status: Active Protocol: Document 01/23/24 15:22 DCW (Rec: 01/23/24 15:58 [facility] [id number]) Posture Evaluation Comments Posture Comments Sitting EOB with good core control and no instability. Recovers from most directional pushing. Improved ability to reach outside of base of support. PT-OP-M Strength Start: 08/21/22 15:38 Freq: Status: Active Protocol: Document 01/23/24 15:22 DCW (Rec: 01/23/24 15:58 DC [id number]) Hip Strength Hip Manual Muscle Testing Right Flexion (L2) 1 Trace Extension (S1) 2- Poor- Adduction 2- Poor- Left Flexion (L2) 1 Trace Extension (S1) 2- Poor- Adduction 1 Trace Knee Strength Knee Manual Muscle Testing Right Flexion (S2) 2- Poor- Extension (L3) 1 Trace Left Flexion (S2) 2- Poor- Extension (L3) 1 Trace Ankle/Foot Strength Ankle and Foot Manual Muscle Testing Right Plantarflexion (S1) 2- Poor- Left Plantarflexion (S1) 1 Trace PT-OP-Q Treatments Start: 03/08/22 17:00 Freq: Status: Active Protocol: Document 02/24/24 15:46 NBM (Rec: 02/24/24 16:40 NBM [id number]) Cardio Equipment Recumbent Elliptical (Biodex) Duration (Minutes) 13 Resistance 10 Seat Position 10 Other Mult tries pt placing feet in pedals w/ min A for trunk guarding, R success Therapeutic Activity Therapeutic Activity Log roll, SL scoot Comments -L SL lateral scoot trunk, to get away from EOB at right to allow roll into supine. SBA -CGA to Log roll supine> L SL (on right side table) attempted x3; modified to R hip/knee flex to assist into L roll to L s/l, successful 2nd attempt. supine>prone>quadruped Name SBA/CGA: into quadruped<> L SL , heavy pt BUE support Comments pt unable to obtain quadruped today w/ three attempts and intermittent rest breaks prn, and then dc'd d/t fatigue. Pt' s best attempt unable to move LUE without RUE collapsing. Manual Therapy Treatment Consent Patient gave verbal consent for manual Yes treatment Manual Techniques Stretch Type 1. Single Knee to Chest 2. Piriformis Fig.4 Body Location bilateral Body Position Supine Reps/Duration x30s ea Comments Positive feedback response. PT-OP-T Assessment and Plan Start: 03/08/22 17:00 Freq: Status: Active Protocol: Document 02/24/24 15:46 NBM (Rec: 02/24/24 16:40 NBM [id number]) Physical Therapy Assessment Goals Three Impairment Pt does not have any motor function throughout bilateral LEs Short Term Goal (STG) Pt to demonstrate 1/5 trace motor contraction in at least one quad in order to begin focus on LE mobility if neural functional return begins. STG Duration Met Asbestos Siding Mechanic Goal (LTG) Pt to demonstrate right quad strength to at least 2/5, demonstrating movement into ROM in an antigravity position LTG Duration 04/21/24 Two Impairment Pt struggles with lateral transfer/scooting along EOB Asbestos Siding Mechanic Goal (LTG) Pt to perform lateral scoot transfer using proper technique without any verbal cues 4x in a row. LTG Duration 04/22/24 One Impairment Pt does not have an appropriate home exercise program Short Term Goal (STG) Pt to be independent and compliant with an appropriate HEP STG Duration 04/22/24 Assessment Summary Assessment [place] is unable to obtain quadruped SBA/CGA today w/ three attempts and intermittent rest breaks prn, and then discontinued due to pt's complaint of fatigue. During pt's best attempt for L sidelying to prone pt achieves prone but in attempting to initiate quadruped he is unable to move L upper extremity without R upper extremity collapsing. He needs cueing for L hand and arm placement for transition from L s/l to prone. Positive feedback response to manual stretching w/ knee to chest and piriformis mm. Pt was successfully able to place R foot into pedal of Biodex w/ Derrek for trunk guarding and pedal control. Physical Therapy Plan Frequency and Duration Frequency of Treatment 2x/Week Plan of Care Start Date 01/23/24 Plan of Care End Date 04/22/24 Therapeutic Interventions Therapeutic Interventions Aquatic Therapy,Balance Training,Coordination Training ,Gait Training,Home Exercise Program,Manual Therapy, Neuromuscular Re-education, Orthotic/Prosthetic Management ,Patient/Caregiver Education, Self-Care/Home Management, Sensory Integration,Soft Tissue Mobilization, Therapeutic Activities, Therapeutic Exercises, Wheelchair Management Next Visit Focus/Plan Next Note Type Treatment Note Next Visit Plan Try L brittney flexion above 90 to initiate L s/l>prone, and or onto both elbows in prone for quadruped. Continue L log roll , L SL>quadruped, Lateral transfers to elevated surfaces more trunk flexion/frequent scoots decreased assist, Wheelchair wheelies, curb management, POC: Continue UE and core strengthening, LE PROM and manual stretching. Transfers, mobility, LE ROM, pt will benefit from continued breakdown of transfers to improve efficiency and mechanics, as well as working on more seated balance EOB.
--- NOTE | 2024-02-26 16:01 | PT.OTN ---
Current Diagnoses Paraplegia, unspecified (02/26/24) Other specified personal risk factors, not elsewhere classified (02/26/24) Other specified postprocedural states (02/26/24) Physical Therapy Treatment Note PT-OP-A Visit Information Start: 03/08/22 17:00 Freq: Status: Active Protocol: Document 02/26/24 15:20 DCW (Rec: 02/26/24 16:01 DCW [id number]) Out-Patient Physical Therapy Visit Information Visit Information Visit Type Progress Note Visit Start Time 15:20 Visit Stop Time 16:00 Visit Number [id number] Number of DYE EXPERT Visits 0 Evaluation Information Evaluation Date 03/08/22 PT-OP-B Current Condition Start: 03/08/22 17:00 Freq: Status: Active Protocol: Document 03/08/22 11:15 DCW (Rec: 03/08/22 17:11 DCW [id number]) Current Condition History of Current Condition Onset Date 12/16/21 Current Complaints Paraplegia History of Current Condition Pt is a 71 year old male with a very unfortunate medical history. Pt was [place] on 12/16/21 with a friend, finished up, drive back to his friend's home to drop him off, and noticed his left leg was collapsing. By the time pt drove home, both legs were giving out and numb. Pt was suddenly paralized from the waist down, was taken to the ED, and was flown to [facility] on 12/17/21. The following day, he underwent a laminectomy to relieve pressure from the thoracic epidural hematoma which had developed following his hike, which was pressing on his spinal cord. Following surgery , pt was in recovery for a week and was then transfered to rehab for 20 days, when he was finally discharged home in a wheelchair on 01/19/22. Pt reports his surgeon informed him that it is a possibility that he gets some return of nerve function. Has experienced some changes in his right LE, but has no motor function at this time from ~ T10 down. Minimal sensory return on right side, none on left. Pt has been anxious to get in to therapy and do everything he can to help return to function. Pt's , who attended his evaluation, notes that she has been doing a lot of PROM in his legs at night to keep everything moving. Pt can feel some stretching during PROM in his right leg. Pt has additionally already started occupational therapy, and has been practicing some seated stabilization. Pt transfers with a slide board, but notes it is difficult to do into his car, because he has to transfer upward at an incline. Treatment Goals Patient/Caregiver Goals I will do anything possible to get out of this wheelchair. My neurologist told me he has seen people recover from this , so I am not giving up hope. PT-OP-C Subjective Start: 03/08/22 17:00 Freq: Status: Active Protocol: Document 02/26/24 15:20 DCW (Rec: 02/26/24 16:01 DCW [id number]) OP-PT Subjective Patient Comments Patient Comments Pt feeling pretty good today. PT-OP-G Mobility & Gait Start: 03/08/22 17:00 Freq: Status: Active Protocol: Document 01/23/24 15:22 DCW (Rec: 01/23/24 15:58 DCW [id number]) OP Mobility Evaluation Transfers Bed to Chair Transfers Transfers using UE, improved with side-side movement, requires verbal cues for LE positioning Car Transfers uses slide board, stabilizes front to back and prevent slide down board Wheelchair Management Type of Wheelchair Manual w/c Assessment Details Unable to perform tilt back to get over curb. Able to clear 2 obstacle 60-70% of the time . Holds wheelie 1:01.95 PT-OP-H Neuro Start: 03/08/22 17:00 Freq: Status: Active Protocol: Document 01/23/24 15:22 DCW (Rec: 01/23/24 15:58 DCW [id number]) Sensation Evaluation Gross Sensation Gross Sensation Left LE Impaired,Right LE Impaired,Trunk Impaired Sensation Description Paresthesia,Numbness,Tingling, Pins & Tatum,Burning Dermatome Impairments L1,L2,L3,L4,L5,S1,S2,S3,S4-5 Location Details Right Leg Light Touch Impaired Sharp/Dull Impaired Deep Pressure Intact/Normal Hot/Cold Absent Protective Sensation Absent Proprioception (Position) Impaired Kinesthesia (Movement) Impaired Two-Point Discrimination Impaired Tactile Localization Impaired Stereognosis Impaired Left Leg Light Touch Absent Sharp/Dull Absent Deep Pressure Impaired Hot/Cold Impaired Protective Sensation Absent Proprioception (Position) Absent Kinesthesia (Movement) Impaired Two-Point Discrimination Absent Tactile Localization Absent Stereognosis Absent Comments Summary Comments B protective reflex vs sharp present Deep Tendon Reflex & Clonus Assessment Deep Tendon Reflex Right Achilles Deep Tendon Reflex 2+ Normal Right Patellar Deep Tendon Reflex 2+ Normal Left Achilles Deep Tendon Reflex 2+ Normal Left Patellar Deep Tendon Reflex 1+ Diminished Ankle Clonus Right Clonus Assessment Sustained Left Clonus Assessment Sustained Muscle Tone Tone Assessment Right Lower Extremity Flexor Tone Description Moderate Hypertonicity Extensor Tone Description Moderate Hypertonicity Left Lower Extremity Flexor Tone Description Moderate Hypertonicity Extensor Tone Description Moderate Hypertonicity PT-OP-J Posture/Palpation/Skin Start: 03/08/22 17:00 Freq: Status: Active Protocol: Document 01/23/24 15:22 DCW (Rec: 01/23/24 15:58 DCW [id number]) Posture Evaluation Comments Posture Comments Sitting EOB with good core control and no instability. Recovers from most directional pushing. Improved ability to reach outside of base of support. PT-OP-M Strength Start: 08/21/22 15:38 Freq: Status: Active Protocol: Document 01/23/24 15:22 DCW (Rec: 01/23/24 15:58 DCW [id number]) Hip Strength Hip Manual Muscle Testing Right Flexion (L2) 1 Trace Extension (S1) 2- Poor- Adduction 2- Poor- Left Flexion (L2) 1 Trace Extension (S1) 2- Poor- Adduction 1 Trace Knee Strength Knee Manual Muscle Testing Right Flexion (S2) 2- Poor- Extension (L3) 1 Trace Left Flexion (S2) 2- Poor- Extension (L3) 1 Trace Ankle/Foot Strength Ankle and Foot Manual Muscle Testing Right Plantarflexion (S1) 2- Poor- Left Plantarflexion (S1) 1 Trace PT-OP-Q Treatments Start: 03/08/22 17:00 Freq: Status: Active Protocol: Document 02/26/24 15:20 DCW (Rec: 02/26/24 16:01 DCW [id number]) Cardio Equipment Recumbent Elliptical ([employer]) Duration (Minutes) 10 Resistance 11 Seat Position 10 Therapeutic Exercises Sitting Exercises LAQ Sitting Exercise Name Muscle tapping to increase contraction Side bilateral Other Exercises Thread the needle Other Exercise Name Thread the needle Side bilateral Comments Quadruped - Therapist assisted Long-kneeling Other Exercise Name Long kneeling /c self thigh support Reps/Minutes x3 ea Comments cues for breath Push-ups Other Exercise Name Push-ups in quadruped quadruped Resistance CGA Reps/Minutes 5x2 sets Comments pt self heavy support BUEs Therapeutic Activity Therapeutic Activity supine>prone>quadruped Name Min Ax1: into quadruped<> L SL , heavy pt BUE support PT-OP-T Assessment and Plan Start: 03/08/22 17:00 Freq: Status: Active Protocol: Document 02/26/24 15:20 DCW (Rec: 02/26/24 16:01 DCW [id number]) Physical Therapy Assessment Impairments Impairments Activity Tolerance,Balance, Coordination,Functional Activities,Functional Mobility ,Gait,Integument,Sensation, Soft Tissue Mobility,Strength, Tone,Transfers Goals Three Impairment Pt does not have any motor function throughout bilateral LEs Short Term Goal (STG) Pt to demonstrate 1/5 trace motor contraction in at least one quad in order to begin focus on LE mobility if neural functional return begins. STG Duration Met Pallet Assembler Goal (LTG) Pt to demonstrate right quad strength to at least 2/5, demonstrating movement into ROM in an antigravity position LTG Duration 04/21/24 Two Impairment Pt struggles with lateral transfer/scooting along EOB Pallet Assembler Goal (LTG) Pt to perform lateral scoot transfer using proper technique without any verbal cues 4x in a row. LTG Duration 04/22/24 One Impairment Pt does not have an appropriate home exercise program Short Term Goal (STG) Pt to be independent and compliant with an appropriate HEP STG Duration 04/22/24 Assessment Summary Assessment Pt performed bed mobility much more easily today, able to get himself into quadruped without assistance, was a little bit more of a struggle than prior attmpts. Good response to UE strengthening. Physical Therapy Plan Frequency and Duration Frequency of Treatment 2x/Week Plan of Care Start Date 01/23/24 Plan of Care End Date 04/22/24 Therapeutic Interventions Therapeutic Interventions Aquatic Therapy,Balance Training,Coordination Training ,Gait Training,Home Exercise Program,Manual Therapy, Neuromuscular Re-education, Orthotic/Prosthetic Management ,Patient/Caregiver Education, Self-Care/Home Management, Sensory Integration,Soft Tissue Mobilization, Therapeutic Activities, Therapeutic Exercises, Wheelchair Management Next Visit Focus/Plan Next Note Type Treatment Note Next Visit Plan Try L brittney flexion above 90 to initiate L s/l>prone, and or onto both elbows in prone for quadruped. Continue L log roll , L SL>quadruped, Lateral transfers to elevated surfaces more trunk flexion/frequent scoots decreased assist, Wheelchair wheelies, curb management, POC: Continue UE and core strengthening, LE PROM and manual stretching. Transfers, mobility, LE ROM, pt will benefit from continued breakdown of transfers to improve efficiency and mechanics, as well as working on more seated balance EOB.
--- NOTE | 2024-03-02 16:54 | PT.OTN ---
Current Diagnoses Paraplegia, unspecified (03/02/24) Other specified personal risk factors, not elsewhere classified (03/02/24) Other specified postprocedural states (03/02/24) Physical Therapy Treatment Note PT-OP-A Visit Information Start: 03/08/22 17:00 Freq: Status: Active Protocol: Document 03/02/24 15:34 NBM (Rec: 03/02/24 16:54 NBM [id number]) Out-Patient Physical Therapy Visit Information Visit Information Visit Type Treatment Note Visit Note w/c tips shortened one notch during treatment session and adjusted back end of session. Visit Start Time 15:25 Visit Stop Time 16:07 Visit Number [id number] Number of DYE WORKER Visits 1 Evaluation Information Evaluation Date 03/08/22 PT-OP-B Current Condition Start: 03/08/22 17:00 Freq: Status: Active Protocol: Document 03/08/22 11:15 DCW (Rec: 03/08/22 17:11 DCW [id number]) Current Condition History of Current Condition Onset Date 12/16/21 Current Complaints Paraplegia History of Current Condition Pt is a 71 year old male with a very unfortunate medical history. Pt was hiking [employer] on 12/16/21 with a friend, finished up, drive back to his friend's home to drop him off, and noticed his left leg was collapsing. By the time pt drove home, both legs were giving out and numb. Pt was suddenly paralized from the waist down, was taken to the ED, and was flown to [facility] on 12/17/21. The following day, he underwent a laminectomy to relieve pressure from the thoracic epidural hematoma which had developed following his hike, which was pressing on his spinal cord. Following surgery , pt was in recovery for a week and was then transfered to rehab for 20 days, when he was finally discharged home in a wheelchair on 01/19/22. Pt reports his surgeon informed him that it is a possibility that he gets some return of nerve function. Has experienced some changes in his right LE, but has no motor function at this time from ~ T10 down. Minimal sensory return on right side, none on left. Pt has been anxious to get in to therapy and do everything he can to help return to function. Pt's , who attended his evaluation, notes that she has been doing a lot of PROM in his legs at night to keep everything moving. Pt can feel some stretching during PROM in his right leg. Pt has additionally already started occupational therapy, and has been practicing some seated stabilization. Pt transfers with a slide board, but notes it is difficult to do into his car, because he has to transfer upward at an incline. Treatment Goals Patient/Caregiver Goals I will do anything possible to get out of this wheelchair. My neurologist told me he has seen people recover from this , so I am not giving up hope. PT-OP-C Subjective Start: 03/08/22 17:00 Freq: Status: Active Protocol: Document 03/02/24 15:34 NBM (Rec: 03/02/24 16:54 NBM [id number]) OP-PT Subjective Patient Comments Patient Comments Toby reports he hasn't practiced balance at home because he doesn't want to scare spouse. He started a diet 1-2 weeks ago with a boiled egg for breakfast and is full until dinner time. He reports no dizziness and has been very busy with work. PT-OP-G Mobility & Gait Start: 03/08/22 17:00 Freq: Status: Active Protocol: Document 01/23/24 15:22 DCW (Rec: 01/23/24 15:58 DCW [id number]) OP Mobility Evaluation Transfers Bed to Chair Transfers Transfers using UE, improved with side-side movement, requires verbal cues for LE positioning Car Transfers uses slide board, stabilizes front to back and prevent slide down board Wheelchair Management Type of Wheelchair Manual w/c Assessment Details Unable to perform tilt back to get over curb. Able to clear 2 obstacle 60-70% of the time . Holds wheelie 1:01.95 PT-OP-H Neuro Start: 03/08/22 17:00 Freq: Status: Active Protocol: Document 01/23/24 15:22 DCW (Rec: 01/23/24 15:58 DCW [id number]) Sensation Evaluation Gross Sensation Gross Sensation Left LE Impaired,Right LE Impaired,Trunk Impaired Sensation Description Paresthesia,Numbness,Tingling, Pins & [place],Burning Dermatome Impairments L1,L2,L3,L4,L5,S1,S2,S3,S4-5 Location Details Right Leg Light Touch Impaired Sharp/Dull Impaired Deep Pressure Intact/Normal Hot/Cold Absent Protective Sensation Absent Proprioception (Position) Impaired Kinesthesia (Movement) Impaired Two-Point Discrimination Impaired Tactile Localization Impaired Stereognosis Impaired Left Leg Light Touch Absent Sharp/Dull Absent Deep Pressure Impaired Hot/Cold Impaired Protective Sensation Absent Proprioception (Position) Absent Kinesthesia (Movement) Impaired Two-Point Discrimination Absent Tactile Localization Absent Stereognosis Absent Comments Summary Comments B protective reflex vs sharp present Deep Tendon Reflex & Clonus Assessment Deep Tendon Reflex Right Achilles Deep Tendon Reflex 2+ Normal Right Patellar Deep Tendon Reflex 2+ Normal Left Achilles Deep Tendon Reflex 2+ Normal Left Patellar Deep Tendon Reflex 1+ Diminished Ankle Clonus Right Clonus Assessment Sustained Left Clonus Assessment Sustained Muscle Tone Tone Assessment Right Lower Extremity Flexor Tone Description Moderate Hypertonicity Extensor Tone Description Moderate Hypertonicity Left Lower Extremity Flexor Tone Description Moderate Hypertonicity Extensor Tone Description Moderate Hypertonicity PT-OP-J Posture/Palpation/Skin Start: 03/08/22 17:00 Freq: Status: Active Protocol: Document 01/23/24 15:22 DCW (Rec: 01/23/24 15:58 DCW [id number]) Posture Evaluation Comments Posture Comments Sitting EOB with good core control and no instability. Recovers from most directional pushing. Improved ability to reach outside of base of support. PT-OP-M Strength Start: 08/21/22 15:38 Freq: Status: Active Protocol: Document 01/23/24 15:22 DCW (Rec: 01/23/24 15:58 DCW [id number]) Hip Strength Hip Manual Muscle Testing Right Flexion (L2) 1 Trace Extension (S1) 2- Poor- Adduction 2- Poor- Left Flexion (L2) 1 Trace Extension (S1) 2- Poor- Adduction 1 Trace Knee Strength Knee Manual Muscle Testing Right Flexion (S2) 2- Poor- Extension (L3) 1 Trace Left Flexion (S2) 2- Poor- Extension (L3) 1 Trace Ankle/Foot Strength Ankle and Foot Manual Muscle Testing Right Plantarflexion (S1) 2- Poor- Left Plantarflexion (S1) 1 Trace PT-OP-Q Treatments Start: 03/08/22 17:00 Freq: Status: Active Protocol: Document 03/02/24 15:34 NBM (Rec: 03/02/24 16:54 NBM [id number]) Cardio Equipment Recumbent Elliptical ([employer]) Duration (Minutes) 12 Resistance 11, strap around thighs for LE alignment Seat Position 10 Other 3 attempts at placing RLE w/ Derrek for trunk control. MaxA needed today. Therapeutic Activity Therapeutic Activity Wheelchair Mobility Comments Practice and cues for wheelies to clear curbs, with pt's personal w/c. Treatment focus on finding balance point between neutral and wheelchair tips, sustaining balance with breath, anterior motion with 3 target for front wheel placement. Pt was able to get wheelchair successfully onto mat w/ CGA only 6/11 and partially 2/11 attempts. PT-OP-T Assessment and Plan Start: 03/08/22 17:00 Freq: Status: Active Protocol: Document 03/02/24 15:34 NBM (Rec: 03/02/24 16:54 NBM [id number]) Physical Therapy Assessment Goals Three Impairment Pt does not have any motor function throughout bilateral LEs Short Term Goal (STG) Pt to demonstrate 1/5 trace motor contraction in at least one quad in order to begin focus on LE mobility if neural functional return begins. STG Duration Met Mcfp Goal (LTG) Pt to demonstrate right quad strength to at least 2/5, demonstrating movement into ROM in an antigravity position LTG Duration 04/21/24 Two Impairment Pt struggles with lateral transfer/scooting along EOB Mcfp Goal (LTG) Pt to perform lateral scoot transfer using proper technique without any verbal cues 4x in a row. LTG Duration 04/22/24 One Impairment Pt does not have an appropriate home exercise program Short Term Goal (STG) Pt to be independent and compliant with an appropriate HEP STG Duration 04/22/24 Assessment Summary Assessment Treatment focus on neural priming with [employer] and wheelchair mobility. Pt demonstrates balance progress from max 59 seconds with w/c tip touchdowns to max 97 sec today without w/c tips touching, which include two brief periods of full stillness. CGA only needed for reversing off 3 mat. Brief discussion of pt's diet and pt encouraged to consult with PCP re: pt's diet. Physical Therapy Plan Frequency and Duration Frequency of Treatment 2x/Week Plan of Care Start Date 01/23/24 Plan of Care End Date 04/22/24 Therapeutic Interventions Therapeutic Interventions Aquatic Therapy,Balance Training,Coordination Training ,Gait Training,Home Exercise Program,Manual Therapy, Neuromuscular Re-education, Orthotic/Prosthetic Management ,Patient/Caregiver Education, Self-Care/Home Management, Sensory Integration,Soft Tissue Mobilization, Therapeutic Activities, Therapeutic Exercises, Wheelchair Management Next Visit Focus/Plan Next Note Type Treatment Note Next Visit Plan Try L brittney flexion above 90 to initiate L s/l>prone, and or onto both elbows in prone for quadruped. Continue L log roll , L SL>quadruped, Lateral transfers to elevated surfaces more trunk flexion/frequent scoots decreased assist, Wheelchair wheelies, curb management, POC: Continue UE and core strengthening, LE PROM and manual stretching. Transfers, mobility, LE ROM, pt will benefit from continued breakdown of transfers to improve efficiency and mechanics, as well as working on more seated balance EOB.
--- NOTE | 2024-03-04 14:34 | PT-OP ANOTE ---
Pt called and rescheduled <24 hrs today's appt to tomorrow, no reason written in deburrer notes.
--- NOTE | 2024-03-09 16:59 | PT.OTN ---
Current Diagnoses Paraplegia, unspecified (03/09/24) Other specified personal risk factors, not elsewhere classified (03/09/24) Other specified postprocedural states (03/09/24) Physical Therapy Treatment Note PT-OP-A Visit Information Start: 03/08/22 17:00 Freq: Status: Active Protocol: Document 03/09/24 15:10 NBM (Rec: 03/09/24 16:59 NBM [id number]) Out-Patient Physical Therapy Visit Information Visit Information Visit Type Treatment Note Visit Note w/c tips shortened one notch during w/c mobility and adjusted back. Visit Start Time 15:19 Visit Stop Time 16:10 Visit Number 180 Number of MEDICAL BILLING INSTRUCTOR Visits 2 Evaluation Information Evaluation Date 03/08/22 PT-OP-B Current Condition Start: 03/08/22 17:00 Freq: Status: Active Protocol: Document 03/08/22 11:15 DCW (Rec: 03/08/22 17:11 DCW [id number]) Current Condition History of Current Condition Onset Date 12/16/21 Current Complaints Paraplegia History of Current Condition Pt is a 71 year old male with a very unfortunate medical history. Pt was hiking [place] on 12/16/21 with a friend, finished up, drive back to his friend's home to drop him off, and noticed his left leg was collapsing. By the time pt drove home, both legs were giving out and numb. Pt was suddenly paralized from the waist down, was taken to the ED, and was flown to [facility] on 12/17/21. The following day, he underwent a laminectomy to relieve pressure from the thoracic epidural hematoma which had developed following his hike, which was pressing on his spinal cord. Following surgery , pt was in recovery for a week and was then transfered to rehab for 20 days, when he was finally discharged home in a wheelchair on 01/19/22. Pt reports his surgeon informed him that it is a possibility that he gets some return of nerve function. Has experienced some changes in his right LE, but has no motor function at this time from ~ T10 down. Minimal sensory return on right side, none on left. Pt has been anxious to get in to therapy and do everything he can to help return to function. Pt's , who attended his evaluation, notes that she has been doing a lot of PROM in his legs at night to keep everything moving. Pt can feel some stretching during PROM in his right leg. Pt has additionally already started occupational therapy, and has been practicing some seated stabilization. Pt transfers with a slide board, but notes it is difficult to do into his car, because he has to transfer upward at an incline. Treatment Goals Patient/Caregiver Goals I will do anything possible to get out of this wheelchair. My neurologist told me he has seen people recover from this , so I am not giving up hope. PT-OP-C Subjective Start: 03/08/22 17:00 Freq: Status: Active Protocol: Document 03/09/24 15:10 NBM (Rec: 03/09/24 16:59 NBM [id number]) OP-PT Subjective Patient Comments Patient Comments Barron reports he's apprehensive to go back onto wheelchair tips at home. PT-OP-G Mobility & Gait Start: 03/08/22 17:00 Freq: Status: Active Protocol: Document 01/23/24 15:22 DCW (Rec: 01/23/24 15:58 DCW [id number]) OP Mobility Evaluation Transfers Bed to Chair Transfers Transfers using UE, improved with side-side movement, requires verbal cues for LE positioning Car Transfers uses slide board, stabilizes front to back and prevent slide down board Wheelchair Management Type of Wheelchair Manual w/c Assessment Details Unable to perform tilt back to get over curb. Able to clear 2 obstacle 60-70% of the time . Holds wheelie 1:01.95 PT-OP-H Neuro Start: 03/08/22 17:00 Freq: Status: Active Protocol: Document 01/23/24 15:22 DCW (Rec: 01/23/24 15:58 DCW [id number]) Sensation Evaluation Gross Sensation Gross Sensation Left LE Impaired,Right LE Impaired,Trunk Impaired Sensation Description Paresthesia,Numbness,Tingling, Pins & [place],Burning Dermatome Impairments L1,L2,L3,L4,L5,S1,S2,S3,S4-5 Location Details Right Leg Light Touch Impaired Sharp/Dull Impaired Deep Pressure Intact/Normal Hot/Cold Absent Protective Sensation Absent Proprioception (Position) Impaired Kinesthesia (Movement) Impaired Two-Point Discrimination Impaired Tactile Localization Impaired Stereognosis Impaired Left Leg Light Touch Absent Sharp/Dull Absent Deep Pressure Impaired Hot/Cold Impaired Protective Sensation Absent Proprioception (Position) Absent Kinesthesia (Movement) Impaired Two-Point Discrimination Absent Tactile Localization Absent Stereognosis Absent Comments Summary Comments B protective reflex vs sharp present Deep Tendon Reflex & Clonus Assessment Deep Tendon Reflex Right Achilles Deep Tendon Reflex 2+ Normal Right Patellar Deep Tendon Reflex 2+ Normal Left Achilles Deep Tendon Reflex 2+ Normal Left Patellar Deep Tendon Reflex 1+ Diminished Ankle Clonus Right Clonus Assessment Sustained Left Clonus Assessment Sustained Muscle Tone Tone Assessment Right Lower Extremity Flexor Tone Description Moderate Hypertonicity Extensor Tone Description Moderate Hypertonicity Left Lower Extremity Flexor Tone Description Moderate Hypertonicity Extensor Tone Description Moderate Hypertonicity PT-OP-J Posture/Palpation/Skin Start: 03/08/22 17:00 Freq: Status: Active Protocol: Document 01/23/24 15:22 DCW (Rec: 01/23/24 15:58 DCW [id number]) Posture Evaluation Comments Posture Comments Sitting EOB with good core control and no instability. Recovers from most directional pushing. Improved ability to reach outside of base of support. PT-OP-M Strength Start: 08/21/22 15:38 Freq: Status: Active Protocol: Document 01/23/24 15:22 DCW (Rec: 01/23/24 15:58 DCW [id number]) Hip Strength Hip Manual Muscle Testing Right Flexion (L2) 1 Trace Extension (S1) 2- Poor- Adduction 2- Poor- Left Flexion (L2) 1 Trace Extension (S1) 2- Poor- Adduction 1 Trace Knee Strength Knee Manual Muscle Testing Right Flexion (S2) 2- Poor- Extension (L3) 1 Trace Left Flexion (S2) 2- Poor- Extension (L3) 1 Trace Ankle/Foot Strength Ankle and Foot Manual Muscle Testing Right Plantarflexion (S1) 2- Poor- Left Plantarflexion (S1) 1 Trace PT-OP-Q Treatments Start: 03/08/22 17:00 Freq: Status: Active Protocol: Document 03/09/24 15:10 NBM (Rec: 03/09/24 16:59 NBM [id number]) Therapeutic Activity Therapeutic Activity Wheelchair Mobility Comments Practice and cues for wheelies to clear curbs, with pt's personal w/c. -balancing on shortened w/c tips x10 -finding balance point between neutral and wheelchair tips while sustaining balance w/ minimal a/p movement. -anterior motion with 3 target for front wheel placement. tall kneel Name 12 box, Reps/Minutes hold 30 sec x2 (therapist assist box mgt) Comments Derrek from quad to tall kneeling, fair hip and trunk ext. Min A for safety maintain tall kneel, while also support 12 box flat on table squat/lateral scoot transfer Name lateral scoot transfer heavy BUEs, wc<> mat table Comments w/c<> mat table, then along side of mat table self scoot and each LE repositioning while maitaining trunk stability. supine>prone>quadruped Name Min Ax1: into quadruped<> L SL , heavy pt BUE support Neuro Re-Education Treatment Balance Activities quadruped Equipment mat table, GB, Comments -pushups x10 -a/p and m/l weightshifting -child's pose weightshifting Details mediolateral weightshiftin . short kneeling 2. quadruped Surface mat table Equipment GB CGA Reps/Duration x10 ea Comments to limits of base of support. Pt fatigues. balloon volleyball Details Balloon Volley /c PVC to Aide Equipment in short kneeling with 12 box for UE support x1 Comments reaching outside limits of support in all planes x15 ea UE PT-OP-T Assessment and Plan Start: 03/08/22 17:00 Freq: Status: Active Protocol: Document 03/09/24 15:10 NB (Rec: 03/09/24 16:59 [facility] [id number]) Physical Therapy Assessment Goals Three Impairment Pt does not have any motor function throughout bilateral LEs Short Term Goal (STG) Pt to demonstrate 1/5 trace motor contraction in at least one quad in order to begin focus on LE mobility if neural functional return begins. STG Duration Met Motivational Speaker Goal (LTG) Pt to demonstrate right quad strength to at least 2/5, demonstrating movement into ROM in an antigravity position LTG Duration 04/21/24 Two Impairment Pt struggles with lateral transfer/scooting along EOB Motivational Speaker Goal (LTG) Pt to perform lateral scoot transfer using proper technique without any verbal cues 4x in a row. LTG Duration 04/22/24 One Impairment Pt does not have an appropriate home exercise program Short Term Goal (STG) Pt to be independent and compliant with an appropriate HEP STG Duration 04/22/24 Assessment Summary Assessment Treamtent focus on w/c mobility and bed mobility. Toby is able to balance on shortened w/c tips x10, then find balance point between neutral and wheelchair tips while sustaining balance w/ minimal a/p movement. He is able to balance max 2'7 today . He uses anterior motion with 3 target for front wheel placement and is more challenged today than 03/05 appt, 5/11 successful attempts , 4/11 attempts with front wheel placement only, and 2/11 attempts that were unsuccessful. He is able to perform bed mobility from EOB to supine to prone and into quadruped w/ cueing for L arm use from prone to quadruped. He returns to w/c w/ Derrek for LLE lowering to transition from supine to EOB. Physical Therapy Plan Frequency and Duration Frequency of Treatment 2x/Week Plan of Care Start Date 01/23/24 Plan of Care End Date 04/22/24 Therapeutic Interventions Therapeutic Interventions Aquatic Therapy,Balance Training,Coordination Training ,Gait Training,Home Exercise Program,Manual Therapy, Neuromuscular Re-education, Orthotic/Prosthetic Management ,Patient/Caregiver Education, Self-Care/Home Management, Sensory Integration,Soft Tissue Mobilization, Therapeutic Activities, Therapeutic Exercises, Wheelchair Management Next Visit Focus/Plan Next Note Type Treatment Note Next Visit Plan Try L brittney flexion above 90 to initiate L s/l>prone, and or onto both elbows in prone for quadruped. Continue L log roll , L SL>quadruped, Lateral transfers to elevated surfaces more trunk flexion/frequent scoots decreased assist, Wheelchair wheelies, curb management, POC: Continue UE and core strengthening, LE PROM and manual stretching. Transfers, mobility, LE ROM, pt will benefit from continued breakdown of transfers to improve efficiency and mechanics, as well as working on more seated balance EOB.
--- NOTE | 2024-03-17 12:23 | PT.OTN ---
Current Diagnoses Paraplegia, unspecified (03/17/24) Other specified personal risk factors, not elsewhere classified (03/17/24) Other specified postprocedural states (03/17/24) Physical Therapy Treatment Note PT-OP-A Visit Information Start: 03/08/22 17:00 Freq: Status: Active Protocol: Document 03/17/24 11:29 [facility] (Rec: 03/17/24 12:23 [facility] [id number]) Out-Patient Physical Therapy Visit Information Visit Information Visit Type Treatment Note Visit Start Time 11:30 Visit Stop Time 12:15 Visit Number 182 Number of WATER VALVE MECHANIC Visits 0 Evaluation Information Evaluation Date 03/08/22 PT-OP-B Current Condition Start: 03/08/22 17:00 Freq: Status: Active Protocol: Document 03/17/24 11:29 [facility] (Rec: 03/17/24 12:23 [facility] [id number]) Current Condition History of Current Condition Onset Date 12/16/21 Current Complaints Paraplegia History of Current Condition Pt is a 71 year old male with a very unfortunate medical history. Pt was hiking [employer] on 12/16/21 with a friend, finished up, drive back to his friend's home to drop him off, and noticed his left leg was collapsing. By the time pt drove home, both legs were giving out and numb. Pt was suddenly paralized from the waist down, was taken to the ED, and was flown to [facility] on 12/17/21. The following day, he underwent a laminectomy to relieve pressure from the thoracic epidural hematoma which had developed following his hike, which was pressing on his spinal cord. Following surgery , pt was in recovery for a week and was then transfered to rehab for 20 days, when he was finally discharged home in a wheelchair on 01/19/22. Pt reports his surgeon informed him that it is a possibility that he gets some return of nerve function. Has experienced some changes in his right LE, but has no motor function at this time from ~ T10 down. Minimal sensory return on right side, none on left. Pt has been anxious to get in to therapy and do everything he can to help return to function. Pt's , who attended his evaluation, notes that she has been doing a lot of PROM in his legs at night to keep everything moving. Pt can feel some stretching during PROM in his right leg. Pt has additionally already started occupational therapy, and has been practicing some seated stabilization. Pt transfers with a slide board, but notes it is difficult to do into his car, because he has to transfer upward at an incline. PT-OP-C Subjective Start: 03/08/22 17:00 Freq: Status: Active Protocol: Document 03/17/24 11:29 SAK (Rec: 03/17/24 12:23 SAK [id number]) OP-PT Subjective Patient Comments Patient Comments Patient reports seems to be getting a little more sensation including pain right LE. PT-OP-G Mobility & Gait Start: 03/08/22 17:00 Freq: Status: Active Protocol: Document 01/23/24 15:22 DCW (Rec: 01/23/24 15:58 DCW [id number]) OP Mobility Evaluation Transfers Bed to Chair Transfers Transfers using UE, improved with side-side movement, requires verbal cues for LE positioning Car Transfers uses slide board, stabilizes front to back and prevent slide down board Wheelchair Management Type of Wheelchair Manual w/c Assessment Details Unable to perform tilt back to get over curb. Able to clear 2 obstacle 60-70% of the time . Holds wheelie 1:01.95 PT-OP-H Neuro Start: 03/08/22 17:00 Freq: Status: Active Protocol: Document 01/23/24 15:22 DCW (Rec: 01/23/24 15:58 DCW [id number]) Sensation Evaluation Gross Sensation Gross Sensation Left LE Impaired,Right LE Impaired,Trunk Impaired Sensation Description Paresthesia,Numbness,Tingling, Pins & Moon,Burning Dermatome Impairments L1,L2,L3,L4,L5,S1,S2,S3,S4-5 Location Details Right Leg Light Touch Impaired Sharp/Dull Impaired Deep Pressure Intact/Normal Hot/Cold Absent Protective Sensation Absent Proprioception (Position) Impaired Kinesthesia (Movement) Impaired Two-Point Discrimination Impaired Tactile Localization Impaired Stereognosis Impaired Left Leg Light Touch Absent Sharp/Dull Absent Deep Pressure Impaired Hot/Cold Impaired Protective Sensation Absent Proprioception (Position) Absent Kinesthesia (Movement) Impaired Two-Point Discrimination Absent Tactile Localization Absent Stereognosis Absent Comments Summary Comments B protective reflex vs sharp present Deep Tendon Reflex & Clonus Assessment Deep Tendon Reflex Right Achilles Deep Tendon Reflex 2+ Normal Right Patellar Deep Tendon Reflex 2+ Normal Left Achilles Deep Tendon Reflex 2+ Normal Left Patellar Deep Tendon Reflex 1+ Diminished Ankle Clonus Right Clonus Assessment Sustained Left Clonus Assessment Sustained Muscle Tone Tone Assessment Right Lower Extremity Flexor Tone Description Moderate Hypertonicity Extensor Tone Description Moderate Hypertonicity Left Lower Extremity Flexor Tone Description Moderate Hypertonicity Extensor Tone Description Moderate Hypertonicity PT-OP-J Posture/Palpation/Skin Start: 03/08/22 17:00 Freq: Status: Active Protocol: Document 01/23/24 15:22 DCW (Rec: 01/23/24 15:58 DCW [id number]) Posture Evaluation Comments Posture Comments Sitting EOB with good core control and no instability. Recovers from most directional pushing. Improved ability to reach outside of base of support. PT-OP-M Strength Start: 08/21/22 15:38 Freq: Status: Active Protocol: Document 01/23/24 15:22 DCW (Rec: 01/23/24 15:58 DCW [id number]) Hip Strength Hip Manual Muscle Testing Right Flexion (L2) 1 Trace Extension (S1) 2- Poor- Adduction 2- Poor- Left Flexion (L2) 1 Trace Extension (S1) 2- Poor- Adduction 1 Trace Knee Strength Knee Manual Muscle Testing Right Flexion (S2) 2- Poor- Extension (L3) 1 Trace Left Flexion (S2) 2- Poor- Extension (L3) 1 Trace Ankle/Foot Strength Ankle and Foot Manual Muscle Testing Right Plantarflexion (S1) 2- Poor- Left Plantarflexion (S1) 1 Trace PT-OP-Q Treatments Start: 03/08/22 17:00 Freq: Status: Active Protocol: Document 03/17/24 11:29 [facility] (Rec: 03/17/24 12:23 SAK [id number]) Cardio Equipment Recumbent Elliptical (Biodex) Duration (Minutes) 12 Resistance 11 Seat Position 10 Other UEs Lvl 5 Therapeutic Exercises Sitting Exercises row Resistance L2 TB Reps/Minutes 10x5 Therapeutic Activity Therapeutic Activity tall kneel Name 12 box, Reps/Minutes hold 30 sec x2 (therapist assist box mgt) Comments Marcial from quad to tall kneeling, fair hip and trunk ext. Min A for safety maintain tall kneel, while also support 12 box flat on table squat/lateral scoot transfer Name lateral scoot transfer heavy BUEs, wc<> mat table Comments w/c<> mat table, then along side of mat table self scoot and each LE repositioning while maitaining trunk stability. supine>prone>quadruped Name Min Ax1: into quadruped<> L SL , heavy pt BUE support Neuro Re-Education Treatment Balance Activities quadruped Equipment mat table, GB, Comments -pushups x10 -a/p and m/l weightshifting -child's pose weightshifting Details mediolateral weightshiftin . short kneeling 2. quadruped Surface mat table Equipment GB CGA Reps/Duration x10 ea Comments to limits of base of support. Pt fatigues. PT-OP-T Assessment and Plan Start: 03/08/22 17:00 Freq: Status: Active Protocol: Document 03/17/24 11:29 [facility] (Rec: 03/17/24 12:23 [facility] [id number]) Physical Therapy Assessment Goals Three Impairment Pt does not have any motor function throughout bilateral LEs Short Term Goal (STG) Pt to demonstrate 1/5 trace motor contraction in at least one quad in order to begin focus on LE mobility if neural functional return begins. STG Duration Met Residential Goal (LTG) Pt to demonstrate right quad strength to at least 2/5, demonstrating movement into ROM in an antigravity position LTG Duration 04/21/24 Two Impairment Pt struggles with lateral transfer/scooting along EOB Residential Goal (LTG) Pt to perform lateral scoot transfer using proper technique without any verbal cues 4x in a row. LTG Duration 04/22/24 One Impairment Pt does not have an appropriate home exercise program Short Term Goal (STG) Pt to be independent and compliant with an appropriate HEP STG Duration 04/22/24 Assessment Summary Assessment Added seated row for scapular strengthening and postural correction with good tolerance . Patient expressed increased ease of supine to all 4's. Physical Therapy Plan Frequency and Duration Frequency of Treatment 2x/Week Plan of Care Start Date 01/23/24 Plan of Care End Date 04/22/24 Therapeutic Interventions Therapeutic Interventions Aquatic Therapy,Balance Training,Coordination Training ,Gait Training,Home Exercise Program,Manual Therapy, Neuromuscular Re-education, Orthotic/Prosthetic Management ,Patient/Caregiver Education, Self-Care/Home Management, Sensory Integration,Soft Tissue Mobilization, Therapeutic Activities, Therapeutic Exercises, Wheelchair Management Next Visit Focus/Plan Next Note Type Treatment Note Next Visit Plan Continue PT per POC: Try L brittney flexion above 90 to initiate L s/l>prone, and or onto both elbows in prone for quadruped. Continue L log roll, L SL> quadruped, Lateral transfers to elevated surfaces more trunk flexion/frequent scoots decreased assist, Wheelchair wheelies, curb management, POC: Continue UE and core strengthening, LE PROM and manual stretching. Transfers, mobility, LE ROM, pt will benefit from continued breakdown of transfers to improve efficiency and mechanics, as well as working on more seated balance EOB.
--- NOTE | 2024-03-24 16:06 | PT.OTN ---
Current Diagnoses Paraplegia, unspecified (03/24/24) Other specified personal risk factors, not elsewhere classified (03/24/24) Other specified postprocedural states (03/24/24) Physical Therapy Treatment Note PT-OP-A Visit Information Start: 03/08/22 17:00 Freq: Status: Active Protocol: Document 03/24/24 15:20 DCW (Rec: 03/24/24 16:06 DCW [id number]) Out-Patient Physical Therapy Visit Information Visit Information Visit Type Treatment Note Visit Start Time 15:20 Visit Stop Time 16:00 Visit Number [id number] Number of TEAM FOREMAN Visits 0 Evaluation Information Evaluation Date 03/08/22 PT-OP-B Current Condition Start: 03/08/22 17:00 Freq: Status: Active Protocol: Document 03/17/24 11:29 SAK (Rec: 03/17/24 12:23 SAK [id number]) Current Condition History of Current Condition Onset Date 12/16/21 Current Complaints Paraplegia History of Current Condition Pt is a 71 year old male with a very unfortunate medical history. Pt was hiking [employer] on 12/16/21 with a friend, finished up, drive back to his friend's home to drop him off, and noticed his left leg was collapsing. By the time pt drove home, both legs were giving out and numb. Pt was suddenly paralized from the waist down, was taken to the ED, and was flown to [facility] on 12/17/21. The following day, he underwent a laminectomy to relieve pressure from the thoracic epidural hematoma which had developed following his hike, which was pressing on his spinal cord. Following surgery , pt was in recovery for a week and was then transfered to rehab for 20 days, when he was finally discharged home in a wheelchair on 01/19/22. Pt reports his surgeon informed him that it is a possibility that he gets some return of nerve function. Has experienced some changes in his right LE, but has no motor function at this time from ~ T10 down. Minimal sensory return on right side, none on left. Pt has been anxious to get in to therapy and do everything he can to help return to function. Pt's , who attended his evaluation, notes that she has been doing a lot of PROM in his legs at night to keep everything moving. Pt can feel some stretching during PROM in his right leg. Pt has additionally already started occupational therapy, and has been practicing some seated stabilization. Pt transfers with a slide board, but notes it is difficult to do into his car, because he has to transfer upward at an incline. PT-OP-C Subjective Start: 03/08/22 17:00 Freq: Status: Active Protocol: Document 03/24/24 15:20 DCW (Rec: 03/24/24 16:06 DCW [id number]) OP-PT Subjective Patient Comments Patient Comments Pt feeling pretty good today. PT-OP-G Mobility & Gait Start: 03/08/22 17:00 Freq: Status: Active Protocol: Document 01/23/24 15:22 DCW (Rec: 01/23/24 15:58 DCW [id number]) OP Mobility Evaluation Transfers Bed to Chair Transfers Transfers using UE, improved with side-side movement, requires verbal cues for LE positioning Car Transfers uses slide board, stabilizes front to back and prevent slide down board Wheelchair Management Type of Wheelchair Manual w/c Assessment Details Unable to perform tilt back to get over curb. Able to clear 2 obstacle 60-70% of the time . Holds wheelie 1:01.95 PT-OP-H Neuro Start: 03/08/22 17:00 Freq: Status: Active Protocol: Document 01/23/24 15:22 DCW (Rec: 01/23/24 15:58 DCW [id number]) Sensation Evaluation Gross Sensation Gross Sensation Left LE Impaired,Right LE Impaired,Trunk Impaired Sensation Description Paresthesia,Numbness,Tingling, Pins & [place],Burning Dermatome Impairments L1,L2,L3,L4,L5,S1,S2,S3,S4-5 Location Details Right Leg Light Touch Impaired Sharp/Dull Impaired Deep Pressure Intact/Normal Hot/Cold Absent Protective Sensation Absent Proprioception (Position) Impaired Kinesthesia (Movement) Impaired Two-Point Discrimination Impaired Tactile Localization Impaired Stereognosis Impaired Left Leg Light Touch Absent Sharp/Dull Absent Deep Pressure Impaired Hot/Cold Impaired Protective Sensation Absent Proprioception (Position) Absent Kinesthesia (Movement) Impaired Two-Point Discrimination Absent Tactile Localization Absent Stereognosis Absent Comments Summary Comments B protective reflex vs sharp present Deep Tendon Reflex & Clonus Assessment Deep Tendon Reflex Right Achilles Deep Tendon Reflex 2+ Normal Right Patellar Deep Tendon Reflex 2+ Normal Left Achilles Deep Tendon Reflex 2+ Normal Left Patellar Deep Tendon Reflex 1+ Diminished Ankle Clonus Right Clonus Assessment Sustained Left Clonus Assessment Sustained Muscle Tone Tone Assessment Right Lower Extremity Flexor Tone Description Moderate Hypertonicity Extensor Tone Description Moderate Hypertonicity Left Lower Extremity Flexor Tone Description Moderate Hypertonicity Extensor Tone Description Moderate Hypertonicity PT-OP-J Posture/Palpation/Skin Start: 03/08/22 17:00 Freq: Status: Active Protocol: Document 01/23/24 15:22 DCW (Rec: 01/23/24 15:58 DCW [id number]) Posture Evaluation Comments Posture Comments Sitting EOB with good core control and no instability. Recovers from most directional pushing. Improved ability to reach outside of base of support. PT-OP-M Strength Start: 08/21/22 15:38 Freq: Status: Active Protocol: Document 01/23/24 15:22 DCW (Rec: 01/23/24 15:58 DCW [id number]) Hip Strength Hip Manual Muscle Testing Right Flexion (L2) 1 Trace Extension (S1) 2- Poor- Adduction 2- Poor- Left Flexion (L2) 1 Trace Extension (S1) 2- Poor- Adduction 1 Trace Knee Strength Knee Manual Muscle Testing Right Flexion (S2) 2- Poor- Extension (L3) 1 Trace Left Flexion (S2) 2- Poor- Extension (L3) 1 Trace Ankle/Foot Strength Ankle and Foot Manual Muscle Testing Right Plantarflexion (S1) 2- Poor- Left Plantarflexion (S1) 1 Trace PT-OP-Q Treatments Start: 03/08/22 17:00 Freq: Status: Active Protocol: Document 03/24/24 15:20 DCW (Rec: 03/24/24 16:06 DCW [id number]) Cardio Equipment Recumbent Elliptical (Biodex) Duration (Minutes) 10 Resistance 11 Seat Position 10 Gym Equipment Therapeutic Ball Abdominal Curl Exercise Details Press ball into abdomen in supine Ball Size/Color Blue - 45 cm Body Position Hooklying Therapeutic Exercises Other Exercises Thread the needle Other Exercise Name Thread the needle Side bilateral Comments Quadruped - Therapist assisted Long-kneeling Other Exercise Name Long kneeling /c self thigh support Reps/Minutes x3 ea Comments cues for breath Push-ups Other Exercise Name Push-ups in quadruped Approximation Other Exercise Name Hip approximation in quad, therapist overpressure through hips quadruped Resistance CGA Reps/Minutes 5x2 sets Comments pt self heavy support BUEs Therapeutic Activity Therapeutic Activity supine>prone>quadruped Name CGA: into quadruped<> L SL, heavy pt BUE support PT-OP-T Assessment and Plan Start: 03/08/22 17:00 Freq: Status: Active Protocol: Document 03/24/24 15:20 DCW (Rec: 03/24/24 16:06 DCW [id number]) Physical Therapy Assessment Assessment Summary Assessment Very good response to treatment today, pt able to get himself from sitting to quadruped much more quickly today. Performed all quadruped exercises independently, with exception of Min Ax1 with Thread the Needle. Continue to work on functional mobility, strengthening, and seated balance. Physical Therapy Plan Frequency and Duration Frequency of Treatment 2x/Week Plan of Care Start Date 01/23/24 Plan of Care End Date 04/22/24 Therapeutic Interventions Therapeutic Interventions Aquatic Therapy,Balance Training,Coordination Training ,Gait Training,Home Exercise Program,Manual Therapy, Neuromuscular Re-education, Orthotic/Prosthetic Management ,Patient/Caregiver Education, Self-Care/Home Management, Sensory Integration,Soft Tissue Mobilization, Therapeutic Activities, Therapeutic Exercises, Wheelchair Management Next Visit Focus/Plan Next Note Type Treatment Note Next Visit Plan Continue PT per POC: Try L brittney flexion above 90 to initiate L s/l>prone, and or onto both elbows in prone for quadruped. Continue L log roll, L SL> quadruped, Lateral transfers to elevated surfaces more trunk flexion/frequent scoots decreased assist, Wheelchair wheelies, curb management, POC: Continue UE and core strengthening, LE PROM and manual stretching. Transfers, mobility, LE ROM, pt will benefit from continued breakdown of transfers to improve efficiency and mechanics, as well as working on more seated balance EOB.
--- NOTE | 2024-03-26 14:33 | PT.OTN ---
Current Diagnoses Paraplegia, unspecified (03/26/24) Other specified personal risk factors, not elsewhere classified (03/26/24) Other specified postprocedural states (03/26/24) Physical Therapy Treatment Note PT-OP-A Visit Information Start: 03/08/22 17:00 Freq: Status: Active Protocol: Document 03/26/24 13:49 SP (Rec: 03/26/24 14:33 SP [id number]) Out-Patient Physical Therapy Visit Information Visit Information Visit Type Treatment Note Visit Start Time 13:49 Visit Stop Time 14:33 Visit Number [id number] Number of CONVERTIBLE TOP INSTALLER Visits 1 Evaluation Information Evaluation Date 03/08/22 PT-OP-B Current Condition Start: 03/08/22 17:00 Freq: Status: Active Protocol: Document 03/17/24 11:29 SAK (Rec: 03/17/24 12:23 SAK [id number]) Current Condition History of Current Condition Onset Date 12/16/21 Current Complaints Paraplegia History of Current Condition Pt is a 71 year old male with a very unfortunate medical history. Pt was hiking [place] on 12/16/21 with a friend, finished up, drive back to his friend's home to drop him off, and noticed his left leg was collapsing. By the time pt drove home, both legs were giving out and numb. Pt was suddenly paralized from the waist down, was taken to the ED, and was flown to [facility] on 12/17/21. The following day, he underwent a laminectomy to relieve pressure from the thoracic epidural hematoma which had developed following his hike, which was pressing on his spinal cord. Following surgery , pt was in recovery for a week and was then transfered to rehab for 20 days, when he was finally discharged home in a wheelchair on 01/19/22. Pt reports his surgeon informed him that it is a possibility that he gets some return of nerve function. Has experienced some changes in his right LE, but has no motor function at this time from ~ T10 down. Minimal sensory return on right side, none on left. Pt has been anxious to get in to therapy and do everything he can to help return to function. Pt's , who attended his evaluation, notes that she has been doing a lot of PROM in his legs at night to keep everything moving. Pt can feel some stretching during PROM in his right leg. Pt has additionally already started occupational therapy, and has been practicing some seated stabilization. Pt transfers with a slide board, but notes it is difficult to do into his car, because he has to transfer upward at an incline. PT-OP-C Subjective Start: 03/08/22 17:00 Freq: Status: Active Protocol: Document 03/26/24 13:49 SP (Rec: 03/26/24 14:33 SP [id number]) OP-PT Subjective Patient Comments Patient Comments Pt reports doing well today. Pt reported legs more loosened up, wonder if 3 hr in [place] yesterday tired his legs. PT-OP-G Mobility & Gait Start: 03/08/22 17:00 Freq: Status: Active Protocol: Document 01/23/24 15:22 DCW (Rec: 01/23/24 15:58 DCW [id number]) OP Mobility Evaluation Transfers Bed to Chair Transfers Transfers using UE, improved with side-side movement, requires verbal cues for LE positioning Car Transfers uses slide board, stabilizes front to back and prevent slide down board Wheelchair Management Type of Wheelchair Manual w/c Assessment Details Unable to perform tilt back to get over curb. Able to clear 2 obstacle 60-70% of the time . Holds wheelie 1:01.95 PT-OP-H Neuro Start: 03/08/22 17:00 Freq: Status: Active Protocol: Document 01/23/24 15:22 DCW (Rec: 01/23/24 15:58 DCW [id number]) Sensation Evaluation Gross Sensation Gross Sensation Left LE Impaired,Right LE Impaired,Trunk Impaired Sensation Description Paresthesia,Numbness,Tingling, Pins & [place],Burning Dermatome Impairments L1,L2,L3,L4,L5,S1,S2,S3,S4-5 Location Details Right Leg Light Touch Impaired Sharp/Dull Impaired Deep Pressure Intact/Normal Hot/Cold Absent Protective Sensation Absent Proprioception (Position) Impaired Kinesthesia (Movement) Impaired Two-Point Discrimination Impaired Tactile Localization Impaired Stereognosis Impaired Left Leg Light Touch Absent Sharp/Dull Absent Deep Pressure Impaired Hot/Cold Impaired Protective Sensation Absent Proprioception (Position) Absent Kinesthesia (Movement) Impaired Two-Point Discrimination Absent Tactile Localization Absent Stereognosis Absent Comments Summary Comments B protective reflex vs sharp present Deep Tendon Reflex & Clonus Assessment Deep Tendon Reflex Right Achilles Deep Tendon Reflex 2+ Normal Right Patellar Deep Tendon Reflex 2+ Normal Left Achilles Deep Tendon Reflex 2+ Normal Left Patellar Deep Tendon Reflex 1+ Diminished Ankle Clonus Right Clonus Assessment Sustained Left Clonus Assessment Sustained Muscle Tone Tone Assessment Right Lower Extremity Flexor Tone Description Moderate Hypertonicity Extensor Tone Description Moderate Hypertonicity Left Lower Extremity Flexor Tone Description Moderate Hypertonicity Extensor Tone Description Moderate Hypertonicity PT-OP-J Posture/Palpation/Skin Start: 03/08/22 17:00 Freq: Status: Active Protocol: Document 01/23/24 15:22 DCW (Rec: 01/23/24 15:58 DCW [id number]) Posture Evaluation Comments Posture Comments Sitting EOB with good core control and no instability. Recovers from most directional pushing. Improved ability to reach outside of base of support. PT-OP-M Strength Start: 08/21/22 15:38 Freq: Status: Active Protocol: Document 01/23/24 15:22 DCW (Rec: 01/23/24 15:58 DCW [id number]) Hip Strength Hip Manual Muscle Testing Right Flexion (L2) 1 Trace Extension (S1) 2- Poor- Adduction 2- Poor- Left Flexion (L2) 1 Trace Extension (S1) 2- Poor- Adduction 1 Trace Knee Strength Knee Manual Muscle Testing Right Flexion (S2) 2- Poor- Extension (L3) 1 Trace Left Flexion (S2) 2- Poor- Extension (L3) 1 Trace Ankle/Foot Strength Ankle and Foot Manual Muscle Testing Right Plantarflexion (S1) 2- Poor- Left Plantarflexion (S1) 1 Trace PT-OP-Q Treatments Start: 03/08/22 17:00 Freq: Status: Active Protocol: Document 03/26/24 13:49 SP (Rec: 03/26/24 14:33 SP [id number]) Cardio Equipment Recumbent Elliptical (Biodex) Duration (Minutes) 10 Resistance 11 Seat Position 8>10 Other UEs pos 5 handles, Min A as needed for maintain BLE more adducted Therapeutic Exercises Other Exercises Thread the needle Other Exercise Name Thread the needle- quadruped Side bilateral Equipment Used resting on forearms for UE resting recovery between sets Reps/Minutes x4 reps, 3 reps, 6 reps- each side alternating Comments CGA-5%A as needed through GB, cued more NBOS hand under shld Long-kneeling Other Exercise Name Long kneeling /c self thigh support Reps/Minutes 45 sec Comments cues for breath Push-ups Other Exercise Name Push-ups in quadruped Reps/Minutes 12 Approximation Other Exercise Name Hip approximation in quad, therapist overpressure through hips Comments quadruped rocking, core fac return fwd shld over hands Therapeutic Activity Therapeutic Activity Log roll, SL scoot Comments -L SL lateral scoot trunk, to get away from EOB at right to allow roll into supine. SBA -CGA to Log roll supine> L SL (on right side table) attempted x3; modified to R hip/knee flex to assist into L roll to L s/l, successful 2nd attempt. squat/lateral scoot transfer Name lateral scoot transfer heavy BUEs Comments w/c<> mat table SBA, w/c<> biodex min A for trunk lateral support while therapist knee front pt B knees for safety support if needed. supine>prone>quadruped Name close SBA: heavy pt BUE support and grasping side of table as needed Comments -more challenging to L- pushes RUE ontable behind to help log roll, iron miner blasting RUE onside table to pull self into prone and allow LUE pull out from underneath him PT-OP-T Assessment and Plan Start: 03/08/22 17:00 Freq: Status: Active Protocol: Document 03/26/24 13:49 SP (Rec: 03/26/24 14:33 SP [id number]) Physical Therapy Assessment Goals Three Impairment Pt does not have any motor function throughout bilateral LEs Short Term Goal (STG) Pt to demonstrate 1/5 trace motor contraction in at least one quad in order to begin focus on LE mobility if neural functional return begins. STG Duration Met Sheet Music Salesperson Goal (LTG) Pt to demonstrate right quad strength to at least 2/5, demonstrating movement into ROM in an antigravity position LTG Duration 04/21/24 Two Impairment Pt struggles with lateral transfer/scooting along EOB Sheet Music Salesperson Goal (LTG) Pt to perform lateral scoot transfer using proper technique without any verbal cues 4x in a row. LTG Duration 04/22/24 One Impairment Pt does not have an appropriate home exercise program Short Term Goal (STG) Pt to be independent and compliant with an appropriate HEP STG Duration 04/22/24 Assessment Summary Assessment Pt demonstrates good effort during L rolling<>quadruped, cues for slower pacing vs momentum. Pt utilizes ethnoarchaeology professor side of table with LUE to self support sit>quadruped to L. Pt reports increased core engagement during CONVERTIBLE TOP INSTALLER provided approximation at posterior pelvis during quadruped rocking WB through BLEs & BUEs . Physical Therapy Plan Frequency and Duration Frequency of Treatment 2x/Week Plan of Care Start Date 01/23/24 Plan of Care End Date 04/22/24 Therapeutic Interventions Therapeutic Interventions Aquatic Therapy,Balance Training,Coordination Training ,Gait Training,Home Exercise Program,Manual Therapy, Neuromuscular Re-education, Orthotic/Prosthetic Management ,Patient/Caregiver Education, Self-Care/Home Management, Sensory Integration,Soft Tissue Mobilization, Therapeutic Activities, Therapeutic Exercises, Wheelchair Management Next Visit Focus/Plan Next Note Type Treatment Note Next Visit Plan Continue PT per POC: Try L brittney flexion above 90 to initiate L s/l>prone, and or onto both elbows in prone for quadruped. Continue L log roll, L SL> quadruped, Lateral transfers to elevated surfaces more trunk flexion/frequent scoots decreased assist, Wheelchair wheelies, curb management, POC: Continue UE and core strengthening, LE PROM and manual stretching. Transfers, mobility, LE ROM, pt will benefit from continued breakdown of transfers to improve efficiency and mechanics, as well as working on more seated balance EOB.
--- NOTE | 2024-04-01 12:54 | PT.OTN ---
Current Diagnoses Paraplegia, unspecified (04/01/24) Other specified personal risk factors, not elsewhere classified (04/01/24) Other specified postprocedural states (04/01/24) Physical Therapy Treatment Note PT-OP-A Visit Information Start: 03/08/22 17:00 Freq: Status: Active Protocol: Document 04/01/24 12:15 DCW (Rec: 04/01/24 12:54 DCW [id number]) Out-Patient Physical Therapy Visit Information Visit Information Visit Type Treatment Note Visit Start Time 12:15 Visit Stop Time 13:00 Visit Number [id number] Number of EXCAVATING SUPERVISOR Visits 0 Evaluation Information Evaluation Date 03/08/22 PT-OP-B Current Condition Start: 03/08/22 17:00 Freq: Status: Active Protocol: Document 03/17/24 11:29 SAK (Rec: 03/17/24 12:23 SAK [id number]) Current Condition History of Current Condition Onset Date 12/16/21 Current Complaints Paraplegia History of Current Condition Pt is a 71 year old male with a very unfortunate medical history. Pt was hiking [place] on 12/16/21 with a friend, finished up, drive back to his friend's home to drop him off, and noticed his left leg was collapsing. By the time pt drove home, both legs were giving out and numb. Pt was suddenly paralized from the waist down, was taken to the ED, and was flown to [facility] on 12/17/21. The following day, he underwent a laminectomy to relieve pressure from the thoracic epidural hematoma which had developed following his hike, which was pressing on his spinal cord. Following surgery , pt was in recovery for a week and was then transfered to rehab for 20 days, when he was finally discharged home in a wheelchair on 01/19/22. Pt reports his surgeon informed him that it is a possibility that he gets some return of nerve function. Has experienced some changes in his right LE, but has no motor function at this time from ~ T10 down. Minimal sensory return on right side, none on left. Pt has been anxious to get in to therapy and do everything he can to help return to function. Pt's , who attended his evaluation, notes that she has been doing a lot of PROM in his legs at night to keep everything moving. Pt can feel some stretching during PROM in his right leg. Pt has additionally already started occupational therapy, and has been practicing some seated stabilization. Pt transfers with a slide board, but notes it is difficult to do into his car, because he has to transfer upward at an incline. PT-OP-C Subjective Start: 03/08/22 17:00 Freq: Status: Active Protocol: Document 04/01/24 12:15 DCW (Rec: 04/01/24 12:54 DCW [id number]) OP-PT Subjective Patient Comments Patient Comments Pt noting concerns with need to change medicare supplemental insurance. PT-OP-G Mobility & Gait Start: 03/08/22 17:00 Freq: Status: Active Protocol: Document 01/23/24 15:22 DCW (Rec: 01/23/24 15:58 DCW [id number]) OP Mobility Evaluation Transfers Bed to Chair Transfers Transfers using UE, improved with side-side movement, requires verbal cues for LE positioning Car Transfers uses slide board, stabilizes front to back and prevent slide down board Wheelchair Management Type of Wheelchair Manual w/c Assessment Details Unable to perform tilt back to get over curb. Able to clear 2 obstacle 60-70% of the time . Holds wheelie 1:01.95 PT-OP-H Neuro Start: 03/08/22 17:00 Freq: Status: Active Protocol: Document 01/23/24 15:22 DCW (Rec: 01/23/24 15:58 DCW [id number]) Sensation Evaluation Gross Sensation Gross Sensation Left LE Impaired,Right LE Impaired,Trunk Impaired Sensation Description Paresthesia,Numbness,Tingling, Pins & [place],Burning Dermatome Impairments L1,L2,L3,L4,L5,S1,S2,S3,S4-5 Location Details Right Leg Light Touch Impaired Sharp/Dull Impaired Deep Pressure Intact/Normal Hot/Cold Absent Protective Sensation Absent Proprioception (Position) Impaired Kinesthesia (Movement) Impaired Two-Point Discrimination Impaired Tactile Localization Impaired Stereognosis Impaired Left Leg Light Touch Absent Sharp/Dull Absent Deep Pressure Impaired Hot/Cold Impaired Protective Sensation Absent Proprioception (Position) Absent Kinesthesia (Movement) Impaired Two-Point Discrimination Absent Tactile Localization Absent Stereognosis Absent Comments Summary Comments B protective reflex vs sharp present Deep Tendon Reflex & Clonus Assessment Deep Tendon Reflex Right Achilles Deep Tendon Reflex 2+ Normal Right Patellar Deep Tendon Reflex 2+ Normal Left Achilles Deep Tendon Reflex 2+ Normal Left Patellar Deep Tendon Reflex 1+ Diminished Ankle Clonus Right Clonus Assessment Sustained Left Clonus Assessment Sustained Muscle Tone Tone Assessment Right Lower Extremity Flexor Tone Description Moderate Hypertonicity Extensor Tone Description Moderate Hypertonicity Left Lower Extremity Flexor Tone Description Moderate Hypertonicity Extensor Tone Description Moderate Hypertonicity PT-OP-J Posture/Palpation/Skin Start: 03/08/22 17:00 Freq: Status: Active Protocol: Document 01/23/24 15:22 DCW (Rec: 01/23/24 15:58 DCW [id number]) Posture Evaluation Comments Posture Comments Sitting EOB with good core control and no instability. Recovers from most directional pushing. Improved ability to reach outside of base of support. PT-OP-M Strength Start: 08/21/22 15:38 Freq: Status: Active Protocol: Document 01/23/24 15:22 DCW (Rec: 01/23/24 15:58 DCW [id number]) Hip Strength Hip Manual Muscle Testing Right Flexion (L2) 1 Trace Extension (S1) 2- Poor- Adduction 2- Poor- Left Flexion (L2) 1 Trace Extension (S1) 2- Poor- Adduction 1 Trace Knee Strength Knee Manual Muscle Testing Right Flexion (S2) 2- Poor- Extension (L3) 1 Trace Left Flexion (S2) 2- Poor- Extension (L3) 1 Trace Ankle/Foot Strength Ankle and Foot Manual Muscle Testing Right Plantarflexion (S1) 2- Poor- Left Plantarflexion (S1) 1 Trace PT-OP-Q Treatments Start: 03/08/22 17:00 Freq: Status: Active Protocol: Document 04/01/24 12:15 DCW (Rec: 04/01/24 12:54 DCW [id number]) Cardio Equipment Recumbent Elliptical (Biodex) Duration (Minutes) 10 Resistance 11 Seat Position 10 Gym Equipment Therapeutic Ball Abdominal Curl Exercise Details Press ball into abdomen in supine Ball Size/Color Blue - 45 cm Body Position Hooklying Therapeutic Exercises Other Exercises Thread the needle Other Exercise Name Thread the needle Side bilateral Comments Quadruped - Therapist assisted Long-kneeling Other Exercise Name Long kneeling /c self thigh support Reps/Minutes x3 ea Comments cues for breath Push-ups Other Exercise Name Push-ups in quadruped Approximation Other Exercise Name Hip approximation in quad, therapist overpressure through hips quadruped child's pose Other Exercise Name quadruped child's pose and sit back stretching Comments cued reach UEs out front Therapeutic Activity Therapeutic Activity supine>prone>quadruped Name CGA: into quadruped<> L SL, heavy pt BUE support PT-OP-T Assessment and Plan Start: 03/08/22 17:00 Freq: Status: Active Protocol: Document 04/01/24 12:15 DCW (Rec: 04/01/24 12:54 DCW [id number]) Physical Therapy Assessment Impairments Impairments Activity Tolerance,Balance, Coordination,Functional Activities,Functional Mobility ,Gait,Integument,Sensation, Soft Tissue Mobility,Strength, Tone,Transfers Goals Three Impairment Pt does not have any motor function throughout bilateral LEs Short Term Goal (STG) Pt to demonstrate 1/5 trace motor contraction in at least one quad in order to begin focus on LE mobility if neural functional return begins. STG Duration Met Explosive Man Goal (LTG) Pt to demonstrate right quad strength to at least 2/5, demonstrating movement into ROM in an antigravity position LTG Duration 04/21/24 Two Impairment Pt struggles with lateral transfer/scooting along EOB Prison Goal (LTG) Pt to perform lateral scoot transfer using proper technique without any verbal cues 4x in a row. LTG Duration 04/22/24 One Impairment Pt does not have an appropriate home exercise program Short Term Goal (STG) Pt to be independent and compliant with an appropriate HEP STG Duration 04/22/24 Assessment Summary Assessment Pt continues to improve with quadruped activities, much more stable with thread the needle, required minimal assistance. Physical Therapy Plan Frequency and Duration Frequency of Treatment 2x/Week Plan of Care Start Date 01/23/24 Plan of Care End Date 04/22/24 Therapeutic Interventions Therapeutic Interventions Aquatic Therapy,Balance Training,Coordination Training ,Gait Training,Home Exercise Program,Manual Therapy, Neuromuscular Re-education, Orthotic/Prosthetic Management ,Patient/Caregiver Education, Self-Care/Home Management, Sensory Integration,Soft Tissue Mobilization, Therapeutic Activities, Therapeutic Exercises, Wheelchair Management Next Visit Focus/Plan Next Note Type Treatment Note Next Visit Plan Continue PT per POC: Try L brittney flexion above 90 to initiate L s/l>prone, and or onto both elbows in prone for quadruped. Continue L log roll, L SL> quadruped, Lateral transfers to elevated surfaces more trunk flexion/frequent scoots decreased assist, Wheelchair wheelies, curb management, POC: Continue UE and core strengthening, LE PROM and manual stretching. Transfers, mobility, LE ROM, pt will benefit from continued breakdown of transfers to improve efficiency and mechanics, as well as working on more seated balance EOB.
--- NOTE | 2024-04-15 16:17 | PT.OTN ---
Current Diagnoses Paraplegia, unspecified (04/15/24) Other specified personal risk factors, not elsewhere classified (04/15/24) Other specified postprocedural states (04/15/24) Physical Therapy Treatment Note PT-OP-A Visit Information Start: 03/08/22 17:00 Freq: Status: Active Protocol: Document 04/15/24 15:27 DCW (Rec: 04/15/24 16:16 DCW [id number]) Out-Patient Physical Therapy Visit Information Visit Information Visit Type Treatment Note Visit Start Time 15:27 Visit Stop Time 16:15 Visit Number [id number] Number of BULLET LUBRICATING MACHINE OPERATOR Visits 0 Evaluation Information Evaluation Date 03/08/22 PT-OP-B Current Condition Start: 03/08/22 17:00 Freq: Status: Active Protocol: Document 03/17/24 11:29 SAK (Rec: 03/17/24 12:23 SAK [id number]) Current Condition History of Current Condition Onset Date 12/16/21 Current Complaints Paraplegia History of Current Condition Pt is a 71 year old male with a very unfortunate medical history. Pt was [place] on 12/16[place]21 with a friend, finished up, drive back to his friend's home to drop him off, and noticed his left leg was collapsing. By the time pt drove home, both legs were giving out and numb. Pt was suddenly paralized from the waist down, was taken to the ED, and was flown to [facility] on 12/17/21. The following day, he underwent a laminectomy to relieve pressure from the thoracic epidural hematoma which had developed following his hike, which was pressing on his spinal cord. Following surgery , pt was in recovery for a week and was then transfered to rehab for 20 days, when he was finally discharged home in a wheelchair on 01/19/22. Pt reports his surgeon informed him that it is a possibility that he gets some return of nerve function. Has experienced some changes in his right LE, but has no motor function at this time from ~ T10 down. Minimal sensory return on right side, none on left. Pt has been anxious to get in to therapy and do everything he can to help return to function. Pt's , who attended his evaluation, notes that she has been doing a lot of PROM in his legs at night to keep everything moving. Pt can feel some stretching during PROM in his right leg. Pt has additionally already started occupational therapy, and has been practicing some seated stabilization. Pt transfers with a slide board, but notes it is difficult to do into his car, because he has to transfer upward at an incline. PT-OP-C Subjective Start: 03/08/22 17:00 Freq: Status: Active Protocol: Document 04/15/24 15:27 DCW (Rec: 04/15/24 16:16 DCW [id number]) OP-PT Subjective Patient Comments Patient Comments Pt frazzled after running late today. PT-OP-G Mobility & Gait Start: 03/08/22 17:00 Freq: Status: Active Protocol: Document 01/23/24 15:22 DCW (Rec: 01/23/24 15:58 DCW [id number]) OP Mobility Evaluation Transfers Bed to Chair Transfers Transfers using UE, improved with side-side movement, requires verbal cues for LE positioning Car Transfers uses slide board, stabilizes front to back and prevent slide down board Wheelchair Management Type of Wheelchair Manual w/c Assessment Details Unable to perform tilt back to get over curb. Able to clear 2 obstacle 60-70% of the time . Holds wheelie 1:01.95 PT-OP-H Neuro Start: 03/08/22 17:00 Freq: Status: Active Protocol: Document 01/23/24 15:22 DCW (Rec: 01/23/24 15:58 DCW [id number]) Sensation Evaluation Gross Sensation Gross Sensation Left LE Impaired,Right LE Impaired,Trunk Impaired Sensation Description Paresthesia,Numbness,Tingling, Pins & [place],Burning Dermatome Impairments L1,L2,L3,L4,L5,S1,S2,S3,S4-5 Location Details Right Leg Light Touch Impaired Sharp/Dull Impaired Deep Pressure Intact/Normal Hot/Cold Absent Protective Sensation Absent Proprioception (Position) Impaired Kinesthesia (Movement) Impaired Two-Point Discrimination Impaired Tactile Localization Impaired Stereognosis Impaired Left Leg Light Touch Absent Sharp/Dull Absent Deep Pressure Impaired Hot/Cold Impaired Protective Sensation Absent Proprioception (Position) Absent Kinesthesia (Movement) Impaired Two-Point Discrimination Absent Tactile Localization Absent Stereognosis Absent Comments Summary Comments B protective reflex vs sharp present Deep Tendon Reflex & Clonus Assessment Deep Tendon Reflex Right Achilles Deep Tendon Reflex 2+ Normal Right Patellar Deep Tendon Reflex 2+ Normal Left Achilles Deep Tendon Reflex 2+ Normal Left Patellar Deep Tendon Reflex 1+ Diminished Ankle Clonus Right Clonus Assessment Sustained Left Clonus Assessment Sustained Muscle Tone Tone Assessment Right Lower Extremity Flexor Tone Description Moderate Hypertonicity Extensor Tone Description Moderate Hypertonicity Left Lower Extremity Flexor Tone Description Moderate Hypertonicity Extensor Tone Description Moderate Hypertonicity PT-OP-J Posture/Palpation/Skin Start: 03/08/22 17:00 Freq: Status: Active Protocol: Document 01/23/24 15:22 DCW (Rec: 01/23/24 15:58 DCW [id number]) Posture Evaluation Comments Posture Comments Sitting EOB with good core control and no instability. Recovers from most directional pushing. Improved ability to reach outside of base of support. PT-OP-M Strength Start: 08/21/22 15:38 Freq: Status: Active Protocol: Document 01/23/24 15:22 DCW (Rec: 01/23/24 15:58 DCW [id number]) Hip Strength Hip Manual Muscle Testing Right Flexion (L2) 1 Trace Extension (S1) 2- Poor- Adduction 2- Poor- Left Flexion (L2) 1 Trace Extension (S1) 2- Poor- Adduction 1 Trace Knee Strength Knee Manual Muscle Testing Right Flexion (S2) 2- Poor- Extension (L3) 1 Trace Left Flexion (S2) 2- Poor- Extension (L3) 1 Trace Ankle/Foot Strength Ankle and Foot Manual Muscle Testing Right Plantarflexion (S1) 2- Poor- Left Plantarflexion (S1) 1 Trace PT-OP-Q Treatments Start: 03/08/22 17:00 Freq: Status: Active Protocol: Document 04/15/24 15:27 DCW (Rec: 04/15/24 16:16 DCW [id number]) Cardio Equipment Recumbent Elliptical (Biodex) Duration (Minutes) 10 Resistance 11 Seat Position 10 Gym Equipment Therapeutic Ball Abdominal Curl Exercise Details Press ball into abdomen in supine Ball Size/Color Blue - 45 cm Body Position Hooklying LTR Exercise Details LTR Ball Size/Color Red - 55 cm Comments Min Ax1 Therapeutic Exercises Other Exercises Thread the needle Other Exercise Name Thread the needle Side bilateral Comments Quadruped - Therapist assisted Long-kneeling Other Exercise Name Long kneeling /c self thigh support Reps/Minutes x2 ea Comments cues for breath Push-ups Other Exercise Name Push-ups in quadruped Reps/Minutes x13 quadruped child's pose Other Exercise Name quadruped child's pose Therapeutic Activity Therapeutic Activity supine>prone>quadruped Name CGA: into quadruped<> L SL, heavy pt BUE support PT-OP-T Assessment and Plan Start: 03/08/22 17:00 Freq: Status: Active Protocol: Document 04/15/24 15:27 DCW (Rec: 04/15/24 16:16 DCW [id number]) Physical Therapy Assessment Impairments Impairments Activity Tolerance,Balance, Coordination,Functional Activities,Functional Mobility ,Gait,Integument,Sensation, Soft Tissue Mobility,Strength, Tone,Transfers Goals Three Impairment Pt does not have any motor function throughout bilateral LEs Short Term Goal (STG) Pt to demonstrate 1/5 trace motor contraction in at least one quad in order to begin focus on LE mobility if neural functional return begins. STG Duration Met Student Records Coordinator Goal (LTG) Pt to demonstrate right quad strength to at least 2/5, demonstrating movement into ROM in an antigravity position LTG Duration 04/21/24 Two Impairment Pt struggles with lateral transfer/scooting along EOB Halfway Goal (LTG) Pt to perform lateral scoot transfer using proper technique without any verbal cues 4x in a row. LTG Duration 04/22/24 One Impairment Pt does not have an appropriate home exercise program Short Term Goal (STG) Pt to be independent and compliant with an appropriate HEP STG Duration 04/22/24 Assessment Summary Assessment Pt did well with abdominal ball press and LTR today, feeling like he is noticing an increase in abdominal activation. Physical Therapy Plan Frequency and Duration Frequency of Treatment 2x/Week Plan of Care Start Date 01/23/24 Plan of Care End Date 04/22/24 Therapeutic Interventions Therapeutic Interventions Aquatic Therapy,Balance Training,Coordination Training ,Gait Training,Home Exercise Program,Manual Therapy, Neuromuscular Re-education, Orthotic/Prosthetic Management ,Patient/Caregiver Education, Self-Care/Home Management, Sensory Integration,Soft Tissue Mobilization, Therapeutic Activities, Therapeutic Exercises, Wheelchair Management Next Visit Focus/Plan Next Note Type Treatment Note Next Visit Plan Continue PT per POC: Continue L log roll, L SL>quadruped, Lateral transfers to elevated surfaces more trunk flexion/ frequent scoots decreased assist, Wheelchair wheelies, curb management, POC: Continue UE and core strengthening, LE PROM and manual stretching. Transfers, mobility, LE ROM, pt will benefit from continued breakdown of transfers to improve efficiency and mechanics, as well as working on more seated balance EOB.
--- NOTE | 2024-04-20 16:50 | PT.OTN ---
Current Diagnoses Paraplegia, unspecified (04/20/24) Other specified personal risk factors, not elsewhere classified (04/20/24) Other specified postprocedural states (04/20/24) Physical Therapy Treatment Note PT-OP-A Visit Information Start: 03/08/22 17:00 Freq: Status: Active Protocol: Document 04/20/24 15:22 NBM (Rec: 04/20/24 16:50 NBM [id number]) Out-Patient Physical Therapy Visit Information Visit Information Visit Type Treatment Note Visit Start Time 15:20 Visit Stop Time 16:00 Visit Number [id number] Number of MARINE ENGINEERING TECHNICIANS Visits 1 Evaluation Information Evaluation Date 03/08/22 PT-OP-B Current Condition Start: 03/08/22 17:00 Freq: Status: Active Protocol: Document 03/17/24 11:29 SAK (Rec: 03/17/24 12:23 SAK [id number]) Current Condition History of Current Condition Onset Date 12/16/21 Current Complaints Paraplegia History of Current Condition Pt is a 71 year old male with a very unfortunate medical history. Pt was hiking [place] on 12/16/21 with a friend, finished up, drive back to his friend's home to drop him off, and noticed his left leg was collapsing. By the time pt drove home, both legs were giving out and numb. Pt was suddenly paralized from the waist down, was taken to the ED, and was flown to [facility] on 12/17/21. The following day, he underwent a laminectomy to relieve pressure from the thoracic epidural hematoma which had developed following his hike, which was pressing on his spinal cord. Following surgery , pt was in recovery for a week and was then transfered to rehab for 20 days, when he was finally discharged home in a wheelchair on 01/19/22. Pt reports his surgeon informed him that it is a possibility that he gets some return of nerve function. Has experienced some changes in his right LE, but has no motor function at this time from ~ T10 down. Minimal sensory return on right side, none on left. Pt has been anxious to get in to therapy and do everything he can to help return to function. Pt's , who attended his evaluation, notes that she has been doing a lot of PROM in his legs at night to keep everything moving. Pt can feel some stretching during PROM in his right leg. Pt has additionally already started occupational therapy, and has been practicing some seated stabilization. Pt transfers with a slide board, but notes it is difficult to do into his car, because he has to transfer upward at an incline. PT-OP-C Subjective Start: 03/08/22 17:00 Freq: Status: Active Protocol: Document 04/20/24 15:22 NBM (Rec: 04/20/24 16:50 NBM [id number]) OP-PT Subjective Patient Comments Patient Comments Pt is disappointed [employer] is not available today. His legs get spastic at night. PT-OP-G Mobility & Gait Start: 03/08/22 17:00 Freq: Status: Active Protocol: Document 01/23/24 15:22 DCW (Rec: 01/23/24 15:58 DCW [id number]) OP Mobility Evaluation Transfers Bed to Chair Transfers Transfers using UE, improved with side-side movement, requires verbal cues for LE positioning Car Transfers uses slide board, stabilizes front to back and prevent slide down board Wheelchair Management Type of Wheelchair Manual w/c Assessment Details Unable to perform tilt back to get over curb. Able to clear 2 obstacle 60-70% of the time . Holds wheelie 1:01.95 PT-OP-H Neuro Start: 03/08/22 17:00 Freq: Status: Active Protocol: Document 01/23/24 15:22 DCW (Rec: 01/23/24 15:58 DCW [id number]) Sensation Evaluation Gross Sensation Gross Sensation Left LE Impaired,Right LE Impaired,Trunk Impaired Sensation Description Paresthesia,Numbness,Tingling, Pins & Garfield,Burning Dermatome Impairments L1,L2,L3,L4,L5,S1,S2,S3,S4-5 Location Details Right Leg Light Touch Impaired Sharp/Dull Impaired Deep Pressure Intact/Normal Hot/Cold Absent Protective Sensation Absent Proprioception (Position) Impaired Kinesthesia (Movement) Impaired Two-Point Discrimination Impaired Tactile Localization Impaired Stereognosis Impaired Left Leg Light Touch Absent Sharp/Dull Absent Deep Pressure Impaired Hot/Cold Impaired Protective Sensation Absent Proprioception (Position) Absent Kinesthesia (Movement) Impaired Two-Point Discrimination Absent Tactile Localization Absent Stereognosis Absent Comments Summary Comments B protective reflex vs sharp present Deep Tendon Reflex & Clonus Assessment Deep Tendon Reflex Right Achilles Deep Tendon Reflex 2+ Normal Right Patellar Deep Tendon Reflex 2+ Normal Left Achilles Deep Tendon Reflex 2+ Normal Left Patellar Deep Tendon Reflex 1+ Diminished Ankle Clonus Right Clonus Assessment Sustained Left Clonus Assessment Sustained Muscle Tone Tone Assessment Right Lower Extremity Flexor Tone Description Moderate Hypertonicity Extensor Tone Description Moderate Hypertonicity Left Lower Extremity Flexor Tone Description Moderate Hypertonicity Extensor Tone Description Moderate Hypertonicity PT-OP-J Posture/Palpation/Skin Start: 03/08/22 17:00 Freq: Status: Active Protocol: Document 01/23/24 15:22 DCW (Rec: 01/23/24 15:58 DCW [id number]) Posture Evaluation Comments Posture Comments Sitting EOB with good core control and no instability. Recovers from most directional pushing. Improved ability to reach outside of base of support. PT-OP-M Strength Start: 08/21/22 15:38 Freq: Status: Active Protocol: Document 01/23/24 15:22 DCW (Rec: 01/23/24 15:58 DCW [id number]) Hip Strength Hip Manual Muscle Testing Right Flexion (L2) 1 Trace Extension (S1) 2- Poor- Adduction 2- Poor- Left Flexion (L2) 1 Trace Extension (S1) 2- Poor- Adduction 1 Trace Knee Strength Knee Manual Muscle Testing Right Flexion (S2) 2- Poor- Extension (L3) 1 Trace Left Flexion (S2) 2- Poor- Extension (L3) 1 Trace Ankle/Foot Strength Ankle and Foot Manual Muscle Testing Right Plantarflexion (S1) 2- Poor- Left Plantarflexion (S1) 1 Trace PT-OP-Q Treatments Start: 03/08/22 17:00 Freq: Status: Active Protocol: Document 04/20/24 15:22 [facility] (Rec: 04/20/24 16:50 [facility] [id number]) Gym Equipment Shuttle Recovery Bilateral Squats Details with BUE assist on thighs, strap above knees for LE alignment Resistance 12#>25# assisted ascending, BLE only descending Shuttle Recovery Platform Stable Reps/Time focus on eccentric lowering, no breathholding Therapeutic Activity Therapeutic Activity squat/lateral scoot transfer Name lateral scoot transfer heavy BUEs Comments w/c<> Shuttle Recovery min A for trunk lateral support while therapist knee front pt B knees for safety support if needed. PT-OP-T Assessment and Plan Start: 03/08/22 17:00 Freq: Status: Active Protocol: Document 04/20/24 15:22 [facility] (Rec: 04/20/24 16:50 [facility] [id number]) Physical Therapy Assessment Goals Three Impairment Pt does not have any motor function throughout bilateral LEs Short Term Goal (STG) Pt to demonstrate 1/5 trace motor contraction in at least one quad in order to begin focus on LE mobility if neural functional return begins. STG Duration Met Mcfp Goal (LTG) Pt to demonstrate right quad strength to at least 2/5, demonstrating movement into ROM in an antigravity position LTG Duration 04/21/24 Two Impairment Pt struggles with lateral transfer/scooting along EOB Mcfp Goal (LTG) Pt to perform lateral scoot transfer using proper technique without any verbal cues 4x in a row. LTG Duration 04/22/24 One Impairment Pt does not have an appropriate home exercise program Short Term Goal (STG) Pt to be independent and compliant with an appropriate HEP STG Duration 04/22/24 Assessment Summary Assessment Pt is able to momentarily arrest descent using LEs for Bilateral squats on Shuttle Recovery at both 12# and 25#s. Pt repeatedly arrests descent at 12# from about 3 from knee extension position and 5x25# for final 2 of range. He requires initial cueing for breath, and assist for RLE alignment and proximation at 12#. This [employer] TECHNICI[employer] notes palpable R knee extensor activation during controlled descent. Pt is educated on progressive strengthening and differences in isometrics, eccentrics, and concentrics. Physical Therapy Plan Frequency and Duration Frequency of Treatment 2x/Week Plan of Care Start Date 01/23/24 Plan of Care End Date 04/22/24 Therapeutic Interventions Therapeutic Interventions Aquatic Therapy,Balance Training,Coordination Training ,Gait Training,Home Exercise Program,Manual Therapy, Neuromuscular Re-education, Orthotic/Prosthetic Management ,Patient/Caregiver Education, Self-Care/Home Management, Sensory Integration,Soft Tissue Mobilization, Therapeutic Activities, Therapeutic Exercises, Wheelchair Management Next Visit Focus/Plan Next Note Type Treatment Note Next Visit Plan Continue PT per POC: Continue L log roll, L SL>quadruped, Lateral transfers to elevated surfaces more trunk flexion/ frequent scoots decreased assist, Wheelchair wheelies, curb management, POC: Continue UE and core strengthening, LE PROM and manual stretching. Transfers, mobility, LE ROM, pt will benefit from continued breakdown of transfers to improve efficiency and mechanics, as well as working on more seated balance EOB.
--- NOTE | 2024-04-22 16:10 | PT.OTN ---
Current Diagnoses Paraplegia, unspecified (04/22/24) Other specified personal risk factors, not elsewhere classified (04/22/24) Other specified postprocedural states (04/22/24) Physical Therapy Treatment Note PT-OP-A Visit Information Start: 03/08/22 17:00 Freq: Status: Active Protocol: Document 04/22/24 15:21 DCW (Rec: 04/22/24 16:10 DCW [id number]) Out-Patient Physical Therapy Visit Information Visit Information Visit Type Progress Note Visit Start Time 15:21 Visit Stop Time 16:00 Visit Number [id number] Number of KEYMODULE ASSEMBLY SUPERVISOR Visits 0 Evaluation Information Evaluation Date 03/08/22 PT-OP-B Current Condition Start: 03/08/22 17:00 Freq: Status: Active Protocol: Document 03/17/24 11:29 SAK (Rec: 03/17/24 12:23 SAK [id number]) Current Condition History of Current Condition Onset Date 12/16/21 Current Complaints Paraplegia History of Current Condition Pt is a 71 year old male with a very unfortunate medical history. Pt was hiking [place] on 12/16/21 with a friend, finished up, drive back to his friend's home to drop him off, and noticed his left leg was collapsing. By the time pt drove home, both legs were giving out and numb. Pt was suddenly paralized from the waist down, was taken to the ED, and was flown to [facility] on 12/17/21. The following day, he underwent a laminectomy to relieve pressure from the thoracic epidural hematoma which had developed following his hike, which was pressing on his spinal cord. Following surgery , pt was in recovery for a week and was then transfered to rehab for 20 days, when he was finally discharged home in a wheelchair on 01/19/22. Pt reports his surgeon informed him that it is a possibility that he gets some return of nerve function. Has experienced some changes in his right LE, but has no motor function at this time from ~ T10 down. Minimal sensory return on right side, none on left. Pt has been anxious to get in to therapy and do everything he can to help return to function. Pt's , who attended his evaluation, notes that she has been doing a lot of PROM in his legs at night to keep everything moving. Pt can feel some stretching during PROM in his right leg. Pt has additionally already started occupational therapy, and has been practicing some seated stabilization. Pt transfers with a slide board, but notes it is difficult to do into his car, because he has to transfer upward at an incline. PT-OP-C Subjective Start: 03/08/22 17:00 Freq: Status: Active Protocol: Document 04/22/24 15:21 DCW (Rec: 04/22/24 16:10 DCW [id number]) OP-PT Subjective Patient Comments Patient Comments I feel like that right leg is coming back more and more. PT-OP-G Mobility & Gait Start: 03/08/22 17:00 Freq: Status: Active Protocol: Document 04/22/24 15:21 DCW (Rec: 04/22/24 16:02 DCW [id number]) OP Mobility Evaluation Transfers Bed to Chair Transfers Transfers using UE, improved with side-side movement, requires minimal verbal cues for LE positioning Car Transfers uses slide board, stabilizes front to back and prevent slide down board Functional Movements Other Functional Movements Pt performs sit->supine->prone ->quadruped with SBA 80% of the time, requires Min Ax1 20% , typically with positioning of knees or feet, or getting up into quad from prone Wheelchair Management Type of Wheelchair Manual w/c Assessment Details Unable to perform tilt back to get over curb. PT-OP-H Neuro Start: 03/08/22 17:00 Freq: Status: Active Protocol: Document 04/22/24 15:21 DCW (Rec: 04/22/24 16:02 DCW [id number]) Sensation Evaluation Gross Sensation Gross Sensation Left LE Impaired,Right LE Impaired,Trunk Impaired Sensation Description Paresthesia,Numbness,Tingling, Pins & [place],Burning Dermatome Impairments L1,L2,L3,L4,L5,S1,S2,S3,S4-5 Location Details Right Leg Light Touch Impaired Sharp/Dull Impaired Deep Pressure Intact/Normal Hot/Cold Absent Protective Sensation Absent Proprioception (Position) Impaired Kinesthesia (Movement) Impaired Two-Point Discrimination Impaired Tactile Localization Impaired Stereognosis Impaired Left Leg Light Touch Absent Sharp/Dull Absent Deep Pressure Impaired Hot/Cold Impaired Protective Sensation Absent Proprioception (Position) Absent Kinesthesia (Movement) Impaired Two-Point Discrimination Absent Tactile Localization Absent Stereognosis Absent Comments Summary Comments B protective reflex vs sharp present Deep Tendon Reflex & Clonus Assessment Deep Tendon Reflex Right Achilles Deep Tendon Reflex 2+ Normal Right Patellar Deep Tendon Reflex 2+ Normal Left Achilles Deep Tendon Reflex 2+ Normal Left Patellar Deep Tendon Reflex 1+ Diminished Ankle Clonus Right Clonus Assessment Sustained Left Clonus Assessment Sustained Muscle Tone Tone Assessment Right Lower Extremity Flexor Tone Description Moderate Hypertonicity Extensor Tone Description Moderate Hypertonicity Left Lower Extremity Flexor Tone Description Moderate Hypertonicity Extensor Tone Description Moderate Hypertonicity PT-OP-J Posture/Palpation/Skin Start: 03/08/22 17:00 Freq: Status: Active Protocol: Document 04/22/24 15:21 DCW (Rec: 04/22/24 16:02 DCW [id number]) Posture Evaluation Comments Posture Comments Sitting EOB with good core control and no instability, uses UEs for support. Recovers from most directional pushing . Improved ability to reach outside of base of support. PT-OP-M Strength Start: 08/21/22 15:38 Freq: Status: Active Protocol: Document 04/22/24 15:21 DCW (Rec: 04/22/24 16:02 DCW [id number]) Shoulder Strength Shoulder Manual Muscle Testing Right Flexion 4 Good Extension 4+ Good+ Abduction (C5) 4 Good External Rotation 3+ Fair+ Internal Rotation 4 Good Left Flexion 4 Good Extension 4+ Good+ Abduction (C5) 4- Good- External Rotation 3+ Fair+ Internal Rotation 4 Good Elbow/Forearm Strength Elbow and Forearm Manual Muscle Testing Right Flexion (C6) 4+ Good+ Extension (C7) 4- Good- Left Flexion (C6) 4 Good Extension (C7) 3+ Fair+ Hand Nutrition Director/Pinch Strength Hand Dominance Hand Dominance Right Hand Strength Right Nutrition Director (lbs) 90 Left Nutrition Director (lbs) 80 Hip Strength Hip Manual Muscle Testing Right Flexion (L2) 1 Trace Extension (S1) 2- Poor- Adduction 2- Poor- Left Flexion (L2) 1 Trace Extension (S1) 2- Poor- Adduction 1 Trace Knee Strength Knee Manual Muscle Testing Right Flexion (S2) 2- Poor- Extension (L3) 1 Trace Left Flexion (S2) 2- Poor- Extension (L3) 1 Trace Ankle/Foot Strength Ankle and Foot Manual Muscle Testing Right Plantarflexion (S1) 2 Poor Left Plantarflexion (S1) 1 Trace PT-OP-Q Treatments Start: 03/08/22 17:00 Freq: Status: Active Protocol: Document 04/20/24 15:22 NBM (Rec: 04/20/24 16:50 NBM [id number]) Gym Equipment Shuttle Recovery Bilateral Squats Details with BUE assist on thighs, strap above knees for LE alignment Resistance 12#>25# assisted ascending, BLE only descending Shuttle Recovery Platform Stable Reps/Time focus on eccentric lowering, no breathholding Therapeutic Activity Therapeutic Activity squat/lateral scoot transfer Name lateral scoot transfer heavy BUEs Comments w/c<> Shuttle Recovery min A for trunk lateral support while therapist knee front pt B knees for safety support if needed. PT-OP-T Assessment and Plan Start: 03/08/22 17:00 Freq: Status: Active Protocol: Document 04/22/24 15:21 DCW (Rec: 04/22/24 16:10 DCW [id number]) Physical Therapy Assessment Impairments Impairments Activity Tolerance,Balance, Coordination,Functional Activities,Functional Mobility ,Gait,Integument,Sensation, Soft Tissue Mobility,Strength, Tone,Transfers Goals Four Impairment Bilateral triceps weakness (R 4-, L 3+) Designer/Writer Goal (LTG) Pt to demonstrate improved triceps strength to at least 4 /5 bilaterally for elbow extension in order to improve transfer ability. LTG Duration 07/21/24 Three Impairment Pt does not have any motor function throughout bilateral LEs Short Term Goal (STG) Pt to demonstrate 1/5 trace motor contraction in at least one quad in order to begin focus on LE mobility if neural functional return begins. STG Duration Met Longterm Goal (LTG) Pt to demonstrate right quad strength to at least 2/5, demonstrating movement into ROM in an antigravity position LTG Duration 07/21/24 Two Impairment Pt struggles with lateral transfer/scooting along EOB Designer/Writer Goal (LTG) Pt to perform lateral scoot transfer using proper technique without any verbal cues 4x in a row. LTG Duration 07/21/24 One Impairment Pt does not have an appropriate home exercise program Short Term Goal (STG) Pt to be independent and compliant with an appropriate HEP STG Duration 07/21/24 Assessment Summary Assessment Pt continues to show slow but clear signs of returning nerve function, particularly in right LE. Improving contraction in right quad. Left LE continues to demonstrate minimal, if any, progress. Pt doing better with bed mobility and transfers, has recently been getting from sitting EOB into quadruped without assistance most of the time. Is struggling some with UE strength, which increases transfer difficulty, due to both weight gain and UE weakness due to severe decrease in activity level following injury. Pt should continue to benefit from skilled therapeutic intervention focusing on NRM, activity tolerance, transfers, UE strengthening, w/c management, increasing independence, and functional mobility. Physical Therapy Plan Frequency and Duration Frequency of Treatment 2x/Week Plan of Care Start Date 04/22/24 Plan of Care End Date 07/21/24 Therapeutic Interventions Therapeutic Interventions Aquatic Therapy,Balance Training,Coordination Training ,Gait Training,Home Exercise Program,Manual Therapy, Neuromuscular Re-education, Orthotic/Prosthetic Management ,Patient/Caregiver Education, Self-Care/Home Management, Sensory Integration,Soft Tissue Mobilization, Therapeutic Activities, Therapeutic Exercises, Wheelchair Management Next Visit Focus/Plan Next Note Type Treatment Note Next Visit Plan Continue PT per POC: Continue L log roll, L SL>quadruped, Lateral transfers to elevated surfaces more trunk flexion/ frequent scoots decreased assist, Wheelchair wheelies, curb management, POC: Continue UE and core strengthening, LE PROM and manual stretching. Transfers, mobility, LE ROM, pt will benefit from continued breakdown of transfers to improve efficiency and mechanics, as well as working on more seated balance EOB.
--- NOTE | 2024-04-22 16:11 | PT.OPPOC ---
Physical, Occupational & Speech Therapy At [facility] Current Diagnoses Paraplegia, unspecified (04/22/24) Other specified personal risk factors, not elsewhere classified (04/22/24) Other specified postprocedural states (04/22/24) Visit Care Team Role Provider Type Octavio Yates MD Family Provider Physician Primary Care Provider Specialty: Family Practice Address: [address] [place] [address], [address], [address] Email: [email or web address] Charleen Arias PA-C Attending Provider Advanced Detective And Intelligence Analyst Referring Provider Specialty: Medical Address: [address] [place] [address], [place] [id number], [place], [address] Email: [email or web address] Plan Of Care PT-OP-B Current Condition Start: 03/08/22 17:00 Freq: Status: Active Protocol: Document 03/17/24 11:29 [facility] (Rec: 03/17/24 12:23 [facility] [id number]) Current Condition History of Current Condition Onset Date 12/16/21 Current Complaints Paraplegia History of Current Condition Pt is a 71 year old male with a very unfortunate medical history. Pt was hiking [employer] on 12/16/21 with a friend, finished up, drive back to his friend's home to drop him off, and noticed his left leg was collapsing. By the time pt drove home, both legs were giving out and numb. Pt was suddenly paralized from the waist down, was taken to the ED, and was flown to [facility] on 12/17/21. The following day, he underwent a laminectomy to relieve pressure from the thoracic epidural hematoma which had developed following his hike, which was pressing on his spinal cord. Following surgery , pt was in recovery for a week and was then transfered to rehab for 20 days, when he was finally discharged home in a wheelchair on 01/19/22. Pt reports his surgeon informed him that it is a possibility that he gets some return of nerve function. Has experienced some changes in his right LE, but has no motor function at this time from ~ T10 down. Minimal sensory return on right side, none on left. Pt has been anxious to get in to therapy and do everything he can to help return to function. Pt's , who attended his evaluation, notes that she has been doing a lot of PROM in his legs at night to keep everything moving. Pt can feel some stretching during PROM in his right leg. Pt has additionally already started occupational therapy, and has been practicing some seated stabilization. Pt transfers with a slide board, but notes it is difficult to do into his car, because he has to transfer upward at an incline. PT-OP-T Assessment and Plan Start: 03/08/22 17:00 Freq: Status: Active Protocol: Document 04/22/24 15:21 DCW (Rec: 04/22/24 16:10 DCW [id number]) Physical Therapy Assessment Impairments Impairments Activity Tolerance,Balance, Coordination,Functional Activities,Functional Mobility ,Gait,Integument,Sensation, Soft Tissue Mobility,Strength, Tone,Transfers Goals Four Impairment Bilateral triceps weakness (R 4-, L 3+) Photo Lab Specialist Goal (LTG) Pt to demonstrate improved triceps strength to at least 4 /5 bilaterally for elbow extension in order to improve transfer ability. LTG Duration 07/21/24 Three Impairment Pt does not have any motor function throughout bilateral LEs Short Term Goal (STG) Pt to demonstrate 1/5 trace motor contraction in at least one quad in order to begin focus on LE mobility if neural functional return begins. STG Duration Met Photo Lab Specialist Goal (LTG) Pt to demonstrate right quad strength to at least 2/5, demonstrating movement into ROM in an antigravity position LTG Duration 07/21/24 Two Impairment Pt struggles with lateral transfer/scooting along EOB [facility] Goal (LTG) Pt to perform lateral scoot transfer using proper technique without any verbal cues 4x in a row. LTG Duration 07/21/24 One Impairment Pt does not have an appropriate home exercise program Short Term Goal (STG) Pt to be independent and compliant with an appropriate HEP STG Duration 07/21/24 Assessment Summary Assessment Pt continues to show slow but clear signs of returning nerve function, particularly in right LE. Improving contraction in right quad. Left LE continues to demonstrate minimal, if any, progress. Pt doing better with bed mobility and transfers, has recently been getting from sitting EOB into quadruped without assistance most of the time. Is struggling some with UE strength, which increases transfer difficulty, due to both weight gain and UE weakness due to severe decrease in activity level following injury. Pt should continue to benefit from skilled therapeutic intervention focusing on NRM, activity tolerance, transfers, UE strengthening, w/c management, increasing independence, and functional mobility. Physical Therapy Plan Frequency and Duration Frequency of Treatment 2x/Week Plan of Care Start Date 04/22/24 Plan of Care End Date 07/21/24 Therapeutic Interventions Therapeutic Interventions Aquatic Therapy,Balance Training,Coordination Training ,Gait Training,Home Exercise Program,Manual Therapy, Neuromuscular Re-education, Orthotic/Prosthetic Management ,Patient/Caregiver Education, Self-Care/Home Management, Sensory Integration,Soft Tissue Mobilization, Therapeutic Activities, Therapeutic Exercises, Wheelchair Management Next Visit Focus/Plan Next Note Type Treatment Note Next Visit Plan Continue PT per POC: Continue L log roll, L SL>quadruped, Lateral transfers to elevated surfaces more trunk flexion/ frequent scoots decreased assist, Wheelchair wheelies, curb management, POC: Continue UE and core strengthening, LE PROM and manual stretching. Transfers, mobility, LE ROM, pt will benefit from continued breakdown of transfers to improve efficiency and mechanics, as well as working on more seated balance EOB. Plan of Care Dates Plan of Care Start Date 04/22/24 Plan of Care End Date 07/21/24 Electronically Signed by: Jean Ruggiero, PT 04/22/24 7229 If you are in agreement with this Plan of Care, please return a signed and dated copy. I have reviewed this Plan of Care and certify that the skilled therapy services above are required to meet the patient?s needs. Physician Signature Date Printed Name and Credentials Clinical Instructor Signature Printed Name and Credentials
--- NOTE | 2024-04-28 17:50 | PT.OTN ---
Current Diagnoses Paraplegia, unspecified (04/28/24) Other specified personal risk factors, not elsewhere classified (04/28/24) Other specified postprocedural states (04/28/24) Physical Therapy Treatment Note PT-OP-A Visit Information Start: 03/08/22 17:00 Freq: Status: Active Protocol: Document 04/28/24 17:00 DCW (Rec: 04/28/24 17:50 DCW [id number]) Out-Patient Physical Therapy Visit Information Visit Information Visit Type Treatment Note Visit Start Time 17:00 Visit Stop Time 17:45 Visit Number 190 Number of DYNAMOMETER MECHANIC Visits 0 Evaluation Information Evaluation Date 03/08/22 PT-OP-B Current Condition Start: 03/08/22 17:00 Freq: Status: Active Protocol: Document 03/17/24 11:29 [facility] (Rec: 03/17/24 12:23 [facility] [id number]) Current Condition History of Current Condition Onset Date 12/16/21 Current Complaints Paraplegia History of Current Condition Pt is a 71 year old male with a very unfortunate medical history. Pt was hiking [employer] on 12/16/21 with a friend, finished up, drive back to his friend's home to drop him off, and noticed his left leg was collapsing. By the time pt drove home, both legs were giving out and numb. Pt was suddenly paralized from the waist down, was taken to the ED, and was flown to [facility] on 12/17/21. The following day, he underwent a laminectomy to relieve pressure from the thoracic epidural hematoma which had developed following his hike, which was pressing on his spinal cord. Following surgery , pt was in recovery for a week and was then transfered to rehab for 20 days, when he was finally discharged home in a wheelchair on 01/19/22. Pt reports his surgeon informed him that it is a possibility that he gets some return of nerve function. Has experienced some changes in his right LE, but has no motor function at this time from ~ T10 down. Minimal sensory return on right side, none on left. Pt has been anxious to get in to therapy and do everything he can to help return to function. Pt's , who attended his evaluation, notes that she has been doing a lot of PROM in his legs at night to keep everything moving. Pt can feel some stretching during PROM in his right leg. Pt has additionally already started occupational therapy, and has been practicing some seated stabilization. Pt transfers with a slide board, but notes it is difficult to do into his car, because he has to transfer upward at an incline. PT-OP-C Subjective Start: 03/08/22 17:00 Freq: Status: Active Protocol: Document 04/28/24 17:00 DCW (Rec: 04/28/24 17:50 DCW [id number]) OP-PT Subjective Patient Comments Patient Comments I'm not as sore as usual. PT-OP-G Mobility & Gait Start: 03/08/22 17:00 Freq: Status: Active Protocol: Document 04/22/24 15:21 DCW (Rec: 04/22/24 16:02 DCW [id number]) OP Mobility Evaluation Transfers Bed to Chair Transfers Transfers using UE, improved with side-side movement, requires minimal verbal cues for LE positioning Car Transfers uses slide board, stabilizes front to back and prevent slide down board Functional Movements Other Functional Movements Pt performs sit->supine->prone ->quadruped with SBA 80% of the time, requires Min Ax1 20% , typically with positioning of knees or feet, or getting up into quad from prone Wheelchair Management Type of Wheelchair Manual w/c Assessment Details Unable to perform tilt back to get over curb. PT-OP-H Neuro Start: 03/08/22 17:00 Freq: Status: Active Protocol: Document 04/22/24 15:21 DCW (Rec: 04/22/24 16:02 DCW [id number]) Sensation Evaluation Gross Sensation Gross Sensation Left LE Impaired,Right LE Impaired,Trunk Impaired Sensation Description Paresthesia,Numbness,Tingling, Pins & Bernard,Burning Dermatome Impairments L1,L2,L3,L4,L5,S1,S2,S3,S4-5 Location Details Right Leg Light Touch Impaired Sharp/Dull Impaired Deep Pressure Intact/Normal Hot/Cold Absent Protective Sensation Absent Proprioception (Position) Impaired Kinesthesia (Movement) Impaired Two-Point Discrimination Impaired Tactile Localization Impaired Stereognosis Impaired Left Leg Light Touch Absent Sharp/Dull Absent Deep Pressure Impaired Hot/Cold Impaired Protective Sensation Absent Proprioception (Position) Absent Kinesthesia (Movement) Impaired Two-Point Discrimination Absent Tactile Localization Absent Stereognosis Absent Comments Summary Comments B protective reflex vs sharp present Deep Tendon Reflex & Clonus Assessment Deep Tendon Reflex Right Achilles Deep Tendon Reflex 2+ Normal Right Patellar Deep Tendon Reflex 2+ Normal Left Achilles Deep Tendon Reflex 2+ Normal Left Patellar Deep Tendon Reflex 1+ Diminished Ankle Clonus Right Clonus Assessment Sustained Left Clonus Assessment Sustained Muscle Tone Tone Assessment Right Lower Extremity Flexor Tone Description Moderate Hypertonicity Extensor Tone Description Moderate Hypertonicity Left Lower Extremity Flexor Tone Description Moderate Hypertonicity Extensor Tone Description Moderate Hypertonicity PT-OP-J Posture/Palpation/Skin Start: 03/08/22 17:00 Freq: Status: Active Protocol: Document 04/22/24 15:21 DCW (Rec: 04/22/24 16:02 DCW [id number]) Posture Evaluation Comments Posture Comments Sitting EOB with good core control and no instability, uses UEs for support. Recovers from most directional pushing . Improved ability to reach outside of base of support. PT-OP-M Strength Start: 08/21/22 15:38 Freq: Status: Active Protocol: Document 04/22/24 15:21 DCW (Rec: 04/22/24 16:02 DCW [id number]) Shoulder Strength Shoulder Manual Muscle Testing Right Flexion 4 Good Extension 4+ Good+ Abduction (C5) 4 Good External Rotation 3+ Fair+ Internal Rotation 4 Good Left Flexion 4 Good Extension 4+ Good+ Abduction (C5) 4- Good- External Rotation 3+ Fair+ Internal Rotation 4 Good Elbow/Forearm Strength Elbow and Forearm Manual Muscle Testing Right Flexion (C6) 4+ Good+ Extension (C7) 4- Good- Left Flexion (C6) 4 Good Extension (C7) 3+ Fair+ Hand Washer Off/Pinch Strength Hand Dominance Hand Dominance Right Hand Strength Right Washer Off (lbs) 90 Left Washer Off (lbs) 80 Hip Strength Hip Manual Muscle Testing Right Flexion (L2) 1 Trace Extension (S1) 2- Poor- Adduction 2- Poor- Left Flexion (L2) 1 Trace Extension (S1) 2- Poor- Adduction 1 Trace Knee Strength Knee Manual Muscle Testing Right Flexion (S2) 2- Poor- Extension (L3) 1 Trace Left Flexion (S2) 2- Poor- Extension (L3) 1 Trace Ankle/Foot Strength Ankle and Foot Manual Muscle Testing Right Plantarflexion (S1) 2 Poor Left Plantarflexion (S1) 1 Trace PT-OP-Q Treatments Start: 03/08/22 17:00 Freq: Status: Active Protocol: Document 04/28/24 17:00 DCW (Rec: 04/28/24 17:50 DCW [id number]) Gym Equipment Shuttle Recovery Bilateral Squats Details with BUE assist on thighs, strap above knees for LE alignment Resistance 25# assisted ascending, BLE only descending Shuttle Recovery Platform Stable Reps/Time focus on eccentric lowering, no breathholding Therapeutic Ball Abdominal Curl Exercise Details Press ball into abdomen in supine Ball Size/Color Blue - 45 cm Body Position Hooklying LTR Exercise Details LTR Ball Size/Color Red - 55 cm Body Position Supine Comments Min Ax1 Therapeutic Exercises Other Exercises Thread the needle Other Exercise Name Thread the needle Side bilateral Comments Quadruped - Therapist assisted Long-kneeling Other Exercise Name Long kneeling /c self thigh support Reps/Minutes x2 ea Comments cues for breath Push-ups Other Exercise Name Push-ups in quadruped Reps/Minutes x13 Approximation Other Exercise Name Hip approximation in quad, therapist overpressure through hips quadruped child's pose Other Exercise Name Child's pose quadruped Resistance CGA Reps/Minutes 5x2 sets Comments pt self heavy support BUEs PT-OP-T Assessment and Plan Start: 03/08/22 17:00 Freq: Status: Active Protocol: Document 04/28/24 17:00 DCW (Rec: 04/28/24 17:50 DCW [id number]) Physical Therapy Assessment Impairments Impairments Activity Tolerance,Balance, Coordination,Functional Activities,Functional Mobility ,Gait,Integument,Sensation, Soft Tissue Mobility,Strength, Tone,Transfers Goals Four Impairment Bilateral triceps weakness (R 4-, L 3+) Fdc Goal (LTG) Pt to demonstrate improved triceps strength to at least 4 /5 bilaterally for elbow extension in order to improve transfer ability. LTG Duration 07/21/24 Three Impairment Pt does not have any motor function throughout bilateral LEs Short Term Goal (STG) Pt to demonstrate 1/5 trace motor contraction in at least one quad in order to begin focus on LE mobility if neural functional return begins. STG Duration Met Fdc Goal (LTG) Pt to demonstrate right quad strength to at least 2/5, demonstrating movement into ROM in an antigravity position LTG Duration 07/21/24 Two Impairment Pt struggles with lateral transfer/scooting along EOB Fdc Goal (LTG) Pt to perform lateral scoot transfer using proper technique without any verbal cues 4x in a row. LTG Duration 3/12/25 One Impairment Pt does not have an appropriate home exercise program Short Term Goal (STG) Pt to be independent and compliant with an appropriate HEP STG Duration 07/21/24 Assessment Summary Assessment Pt tolerated treatment well. Continues to demonstrate improvement with independent bed mobility and quadruped activities. Physical Therapy Plan Frequency and Duration Frequency of Treatment 2x/Week Plan of Care Start Date 04/22/24 Plan of Care End Date 07/21/24 Therapeutic Interventions Therapeutic Interventions Aquatic Therapy,Balance Training,Coordination Training ,Gait Training,Home Exercise Program,Manual Therapy, Neuromuscular Re-education, Orthotic/Prosthetic Management ,Patient/Caregiver Education, Self-Care/Home Management, Sensory Integration,Soft Tissue Mobilization, Therapeutic Activities, Therapeutic Exercises, Wheelchair Management Next Visit Focus/Plan Next Note Type Treatment Note Next Visit Plan Continue PT per POC: Continue L log roll, L SL>quadruped, Lateral transfers to elevated surfaces more trunk flexion/ frequent scoots decreased assist, Wheelchair wheelies, curb management, POC: Continue UE and core strengthening, LE PROM and manual stretching. Transfers, mobility, LE ROM, pt will benefit from continued breakdown of transfers to improve efficiency and mechanics, as well as working on more seated balance EOB.
--- NOTE | 2024-04-30 17:03 | PT.OTN ---
Current Diagnoses Paraplegia, unspecified (04/30/24) Other specified personal risk factors, not elsewhere classified (04/30/24) Other specified postprocedural states (04/30/24) Physical Therapy Treatment Note PT-OP-A Visit Information Start: 03/08/22 17:00 Freq: Status: Active Protocol: Document 04/30/24 13:56 NBM (Rec: 04/30/24 15:20 NBM [id number]) Out-Patient Physical Therapy Visit Information Visit Information Visit Type Treatment Note Visit Start Time 13:55 Visit Stop Time 14:35 Visit Number [id number] Number of MANAGER PARKING Visits 1 Evaluation Information Evaluation Date 03/08/22 PT-OP-B Current Condition Start: 03/08/22 17:00 Freq: Status: Active Protocol: Document 03/17/24 11:29 SAK (Rec: 03/17/24 12:23 SAK [id number]) Current Condition History of Current Condition Onset Date 12/16/21 Current Complaints Paraplegia History of Current Condition Pt is a 71 year old male with a very unfortunate medical history. Pt was hiking [place] on 12/16/21 with a friend, finished up, drive back to his friend's home to drop him off, and noticed his left leg was collapsing. By the time pt drove home, both legs were giving out and numb. Pt was suddenly paralized from the waist down, was taken to the ED, and was flown to [facility] on 12/17/21. The following day, he underwent a laminectomy to relieve pressure from the thoracic epidural hematoma which had developed following his hike, which was pressing on his spinal cord. Following surgery , pt was in recovery for a week and was then transfered to rehab for 20 days, when he was finally discharged home in a wheelchair on 01/19/22. Pt reports his surgeon informed him that it is a possibility that he gets some return of nerve function. Has experienced some changes in his right LE, but has no motor function at this time from ~ T10 down. Minimal sensory return on right side, none on left. Pt has been anxious to get in to therapy and do everything he can to help return to function. Pt's , who attended his evaluation, notes that she has been doing a lot of PROM in his legs at night to keep everything moving. Pt can feel some stretching during PROM in his right leg. Pt has additionally already started occupational therapy, and has been practicing some seated stabilization. Pt transfers with a slide board, but notes it is difficult to do into his car, because he has to transfer upward at an incline. PT-OP-C Subjective Start: 03/08/22 17:00 Freq: Status: Active Protocol: Document 04/30/24 13:56 NBM (Rec: 04/30/24 15:20 NBM [id number]) OP-PT Subjective Patient Comments Patient Comments Toby reports increasing activity in right leg and core strength; when he reaches forward too far in wheelchair and trunk falls forward he's able to straighten back up on his own. He reports feeling muscles in lower leg when he tries to lift R leg which is a new feeling. Patient Reported Progress Improving PT-OP-G Mobility & Gait Start: 03/08/22 17:00 Freq: Status: Active Protocol: Document 04/22/24 15:21 DCW (Rec: 04/22/24 16:02 DCW [id number]) OP Mobility Evaluation Transfers Bed to Chair Transfers Transfers using UE, improved with side-side movement, requires minimal verbal cues for LE positioning Car Transfers uses slide board, stabilizes front to back and prevent slide down board Functional Movements Other Functional Movements Pt performs sit->supine->prone ->quadruped with SBA 80% of the time, requires Min Ax1 20% , typically with positioning of knees or feet, or getting up into quad from prone Wheelchair Management Type of Wheelchair Manual w/c Assessment Details Unable to perform tilt back to get over curb. PT-OP-H Neuro Start: 03/08/22 17:00 Freq: Status: Active Protocol: Document 04/22/24 15:21 DCW (Rec: 04/22/24 16:02 DCW [id number]) Sensation Evaluation Gross Sensation Gross Sensation Left LE Impaired,Right LE Impaired,Trunk Impaired Sensation Description Paresthesia,Numbness,Tingling, Pins & [place],Burning Dermatome Impairments L1,L2,L3,L4,L5,S1,S2,S3,S4-5 Location Details Right Leg Light Touch Impaired Sharp/Dull Impaired Deep Pressure Intact/Normal Hot/Cold Absent Protective Sensation Absent Proprioception (Position) Impaired Kinesthesia (Movement) Impaired Two-Point Discrimination Impaired Tactile Localization Impaired Stereognosis Impaired Left Leg Light Touch Absent Sharp/Dull Absent Deep Pressure Impaired Hot/Cold Impaired Protective Sensation Absent Proprioception (Position) Absent Kinesthesia (Movement) Impaired Two-Point Discrimination Absent Tactile Localization Absent Stereognosis Absent Comments Summary Comments B protective reflex vs sharp present Deep Tendon Reflex & Clonus Assessment Deep Tendon Reflex Right Achilles Deep Tendon Reflex 2+ Normal Right Patellar Deep Tendon Reflex 2+ Normal Left Achilles Deep Tendon Reflex 2+ Normal Left Patellar Deep Tendon Reflex 1+ Diminished Ankle Clonus Right Clonus Assessment Sustained Left Clonus Assessment Sustained Muscle Tone Tone Assessment Right Lower Extremity Flexor Tone Description Moderate Hypertonicity Extensor Tone Description Moderate Hypertonicity Left Lower Extremity Flexor Tone Description Moderate Hypertonicity Extensor Tone Description Moderate Hypertonicity PT-OP-J Posture/Palpation/Skin Start: 03/08/22 17:00 Freq: Status: Active Protocol: Document 04/22/24 15:21 DCW (Rec: 04/22/24 16:02 DCW [id number]) Posture Evaluation Comments Posture Comments Sitting EOB with good core control and no instability, uses UEs for support. Recovers from most directional pushing . Improved ability to reach outside of base of support. PT-OP-M Strength Start: 08/21/22 15:38 Freq: Status: Active Protocol: Document 04/22/24 15:21 DCW (Rec: 04/22/24 16:02 DCW [id number]) Shoulder Strength Shoulder Manual Muscle Testing Right Flexion 4 Good Extension 4+ Good+ Abduction (C5) 4 Good External Rotation 3+ Fair+ Internal Rotation 4 Good Left Flexion 4 Good Extension 4+ Good+ Abduction (C5) 4- Good- External Rotation 3+ Fair+ Internal Rotation 4 Good Elbow/Forearm Strength Elbow and Forearm Manual Muscle Testing Right Flexion (C6) 4+ Good+ Extension (C7) 4- Good- Left Flexion (C6) 4 Good Extension (C7) 3+ Fair+ Hand Tobacco Curer/Pinch Strength Hand Dominance Hand Dominance Right Hand Strength Right Tobacco Curer (lbs) 90 Left Tobacco Curer (lbs) 80 Hip Strength Hip Manual Muscle Testing Right Flexion (L2) 1 Trace Extension (S1) 2- Poor- Adduction 2- Poor- Left Flexion (L2) 1 Trace Extension (S1) 2- Poor- Adduction 1 Trace Knee Strength Knee Manual Muscle Testing Right Flexion (S2) 2- Poor- Extension (L3) 1 Trace Left Flexion (S2) 2- Poor- Extension (L3) 1 Trace Ankle/Foot Strength Ankle and Foot Manual Muscle Testing Right Plantarflexion (S1) 2 Poor Left Plantarflexion (S1) 1 Trace PT-OP-Q Treatments Start: 03/08/22 17:00 Freq: Status: Active Protocol: Document 04/30/24 13:56 NBM (Rec: 04/30/24 15:20 [facility] [id number]) Gym Equipment Shuttle Recovery Bilateral Squats Details with BUE assist on thighs, strap above knees for LE alignment Resistance 25#>12# assisted ascending, BLE only descending Shuttle Recovery Platform Stable Reps/Time focus on eccentric lowering w/ breath, concentric w/ heel push. Therapeutic Exercises Supine Exercises Core Supine Exercise Name perturbations Resistance on Shuttle Recovery 25# Equipment Used 55 cm, strap above knees for LE alignment Comments cues for TrA activation, no breathholding, elbow extension . Hamstring Stretch Supine Exercise Name HS/calf stretch Side bilateral Resistance 25# Equipment Used on Shuttle Recovery w pressure applied above thighs, aide proximatn B ankle Reps/Minutes 60 Comments cued breath allow relax musculature Therapeutic Activity Therapeutic Activity Wheelchair Mobility Comments -balancing on shortened w/c tips -finding balance point between neutral and wheelchair tips while sustaining balance w/ minimal a/p movement. PT-OP-T Assessment and Plan Start: 03/08/22 17:00 Freq: Status: Active Protocol: Document 04/30/24 13:56 NB (Rec: 04/30/24 15:20 [facility] [id number]) Physical Therapy Assessment Impairments Impairments Activity Tolerance,Balance, Coordination,Functional Activities,Functional Mobility ,Gait,Integument,Sensation, Soft Tissue Mobility,Strength, Tone,Transfers Goals Four Impairment Bilateral triceps weakness (R 4-, L 3+) [facility] Goal (LTG) Pt to demonstrate improved triceps strength to at least 4 /5 bilaterally for elbow extension in order to improve transfer ability. LTG Duration 07/21/24 Three Impairment Pt does not have any motor function throughout bilateral LEs Short Term Goal (STG) Pt to demonstrate 1/5 trace motor contraction in at least one quad in order to begin focus on LE mobility if neural functional return begins. STG Duration Met [facility] Goal (LTG) Pt to demonstrate right quad strength to at least 2/5, demonstrating movement into ROM in an antigravity position LTG Duration 07/21/24 Two Impairment Pt struggles with lateral transfer/scooting along EOB [facility] Goal (LTG) Pt to perform lateral scoot transfer using proper technique without any verbal cues 4x in a row. LTG Duration 07/21/24 One Impairment Pt does not have an appropriate home exercise program Short Term Goal (STG) Pt to be independent and compliant with an appropriate HEP STG Duration 07/21/24 Assessment Summary Assessment Toby is able to to demonstrate increasing motor control of RLE with bilateral leg press using thigh support, and when cued to push through heels R heel visibly contacts and maintains contact with platform. W/c balance improves w/ cues for breathwork; 2 LOB , one anteriorly with self- recovery and one posteriorly with modA for balance recovery end of session. Physical Therapy Plan Frequency and Duration Frequency of Treatment 2x/Week Plan of Care Start Date 04/22/24 Plan of Care End Date 07/21/24 Therapeutic Interventions Therapeutic Interventions Aquatic Therapy,Balance Training,Coordination Training ,Gait Training,Home Exercise Program,Manual Therapy, Neuromuscular Re-education, Orthotic/Prosthetic Management ,Patient/Caregiver Education, Self-Care/Home Management, Sensory Integration,Soft Tissue Mobilization, Therapeutic Activities, Therapeutic Exercises, Wheelchair Management Next Visit Focus/Plan Next Note Type Treatment Note Next Visit Plan Continue PT per POC: Continue L log roll, L SL>quadruped, Lateral transfers to elevated surfaces more trunk flexion/ frequent scoots decreased assist, Wheelchair wheelies, curb management, POC: Continue UE and core strengthening, LE PROM and manual stretching. Transfers, mobility, LE ROM, pt will benefit from continued breakdown of transfers to improve efficiency and mechanics, as well as working on more seated balance EOB.
--- NOTE | 2024-05-06 16:04 | PT.OTN ---
Current Diagnoses Paraplegia, unspecified (05/06/24) Other specified personal risk factors, not elsewhere classified (05/06/24) Other specified postprocedural states (05/06/24) Physical Therapy Treatment Note PT-OP-A Visit Information Start: 03/08/22 17:00 Freq: Status: Active Protocol: Document 05/06/24 15:17 DCW (Rec: 05/06/24 16:04 DCW [id number]) Out-Patient Physical Therapy Visit Information Visit Information Visit Type Treatment Note Visit Start Time 15:17 Visit Stop Time 16:00 Visit Number [id number] Number of INSURANCE ASSISTANT Visits 0 Evaluation Information Evaluation Date 03/08/22 PT-OP-B Current Condition Start: 03/08/22 17:00 Freq: Status: Active Protocol: Document 03/17/24 11:29 SAK (Rec: 03/17/24 12:23 SAK [id number]) Current Condition History of Current Condition Onset Date 12/16/21 Current Complaints Paraplegia History of Current Condition Pt is a 71 year old male with a very unfortunate medical history. Pt was hiking [place] on 12/16/21 with a friend, finished up, drive back to his friend's home to drop him off, and noticed his left leg was collapsing. By the time pt drove home, both legs were giving out and numb. Pt was suddenly paralized from the waist down, was taken to the ED, and was flown to [facility] on 12/17/21. The following day, he underwent a laminectomy to relieve pressure from the thoracic epidural hematoma which had developed following his hike, which was pressing on his spinal cord. Following surgery , pt was in recovery for a week and was then transfered to rehab for 20 days, when he was finally discharged home in a wheelchair on 01/19/22. Pt reports his surgeon informed him that it is a possibility that he gets some return of nerve function. Has experienced some changes in his right LE, but has no motor function at this time from ~ T10 down. Minimal sensory return on right side, none on left. Pt has been anxious to get in to therapy and do everything he can to help return to function. Pt's , who attended his evaluation, notes that she has been doing a lot of PROM in his legs at night to keep everything moving. Pt can feel some stretching during PROM in his right leg. Pt has additionally already started occupational therapy, and has been practicing some seated stabilization. Pt transfers with a slide board, but notes it is difficult to do into his car, because he has to transfer upward at an incline. PT-OP-C Subjective Start: 03/08/22 17:00 Freq: Status: Active Protocol: Document 05/06/24 15:17 DCW (Rec: 05/06/24 16:04 DCW [id number]) OP-PT Subjective Patient Comments Patient Comments Pt doing pretty well today. PT-OP-G Mobility & Gait Start: 03/08/22 17:00 Freq: Status: Active Protocol: Document 04/22/24 15:21 DCW (Rec: 04/22/24 16:02 DCW [id number]) OP Mobility Evaluation Transfers Bed to Chair Transfers Transfers using UE, improved with side-side movement, requires minimal verbal cues for LE positioning Car Transfers uses slide board, stabilizes front to back and prevent slide down board Functional Movements Other Functional Movements Pt performs sit->supine->prone ->quadruped with SBA 80% of the time, requires Min Ax1 20% , typically with positioning of knees or feet, or getting up into quad from prone Wheelchair Management Type of Wheelchair Manual w/c Assessment Details Unable to perform tilt back to get over curb. PT-OP-H Neuro Start: 03/08/22 17:00 Freq: Status: Active Protocol: Document 04/22/24 15:21 DCW (Rec: 04/22/24 16:02 DCW [id number]) Sensation Evaluation Gross Sensation Gross Sensation Left LE Impaired,Right LE Impaired,Trunk Impaired Sensation Description Paresthesia,Numbness,Tingling, Pins & [place],Burning Dermatome Impairments L1,L2,L3,L4,L5,S1,S2,S3,S4-5 Location Details Right Leg Light Touch Impaired Sharp/Dull Impaired Deep Pressure Intact/Normal Hot/Cold Absent Protective Sensation Absent Proprioception (Position) Impaired Kinesthesia (Movement) Impaired Two-Point Discrimination Impaired Tactile Localization Impaired Stereognosis Impaired Left Leg Light Touch Absent Sharp/Dull Absent Deep Pressure Impaired Hot/Cold Impaired Protective Sensation Absent Proprioception (Position) Absent Kinesthesia (Movement) Impaired Two-Point Discrimination Absent Tactile Localization Absent Stereognosis Absent Comments Summary Comments B protective reflex vs sharp present Deep Tendon Reflex & Clonus Assessment Deep Tendon Reflex Right Achilles Deep Tendon Reflex 2+ Normal Right Patellar Deep Tendon Reflex 2+ Normal Left Achilles Deep Tendon Reflex 2+ Normal Left Patellar Deep Tendon Reflex 1+ Diminished Ankle Clonus Right Clonus Assessment Sustained Left Clonus Assessment Sustained Muscle Tone Tone Assessment Right Lower Extremity Flexor Tone Description Moderate Hypertonicity Extensor Tone Description Moderate Hypertonicity Left Lower Extremity Flexor Tone Description Moderate Hypertonicity Extensor Tone Description Moderate Hypertonicity PT-OP-J Posture/Palpation/Skin Start: 03/08/22 17:00 Freq: Status: Active Protocol: Document 04/22/24 15:21 DCW (Rec: 04/22/24 16:02 DCW [id number]) Posture Evaluation Comments Posture Comments Sitting EOB with good core control and no instability, uses UEs for support. Recovers from most directional pushing . Improved ability to reach outside of base of support. PT-OP-M Strength Start: 08/21/22 15:38 Freq: Status: Active Protocol: Document 04/22/24 15:21 DCW (Rec: 04/22/24 16:02 DCW [id number]) Shoulder Strength Shoulder Manual Muscle Testing Right Flexion 4 Good Extension 4+ Good+ Abduction (C5) 4 Good External Rotation 3+ Fair+ Internal Rotation 4 Good Left Flexion 4 Good Extension 4+ Good+ Abduction (C5) 4- Good- External Rotation 3+ Fair+ Internal Rotation 4 Good Elbow/Forearm Strength Elbow and Forearm Manual Muscle Testing Right Flexion (C6) 4+ Good+ Extension (C7) 4- Good- Left Flexion (C6) 4 Good Extension (C7) 3+ Fair+ Hand Cardiothoracic Icu Rn/Pinch Strength Hand Dominance Hand Dominance Right Hand Strength Right Cardiothoracic Icu Rn (lbs) 90 Left Cardiothoracic Icu Rn (lbs) 80 Hip Strength Hip Manual Muscle Testing Right Flexion (L2) 1 Trace Extension (S1) 2- Poor- Adduction 2- Poor- Left Flexion (L2) 1 Trace Extension (S1) 2- Poor- Adduction 1 Trace Knee Strength Knee Manual Muscle Testing Right Flexion (S2) 2- Poor- Extension (L3) 1 Trace Left Flexion (S2) 2- Poor- Extension (L3) 1 Trace Ankle/Foot Strength Ankle and Foot Manual Muscle Testing Right Plantarflexion (S1) 2 Poor Left Plantarflexion (S1) 1 Trace PT-OP-Q Treatments Start: 03/08/22 17:00 Freq: Status: Active Protocol: Document 05/06/24 15:17 DCW (Rec: 05/06/24 16:04 DCW [id number]) Cardio Equipment Recumbent Stepper (Sci-Fit) Duration (Minutes) 10 Resistance 4 Seat Position Seat removed for w/c Other Anti-tip extended to longest Gym Equipment Therapeutic Ball Abdominal Curl Exercise Details Press ball into abdomen in supine Ball Size/Color Blue - 45 cm Body Position Hooklying Therapeutic Exercises Other Exercises Thread the needle Other Exercise Name Thread the needle Side bilateral Comments Quadruped - Therapist assisted Long-kneeling Other Exercise Name Long kneeling /c self thigh support Comments cues for breath Push-ups Other Exercise Name Push-ups in quadruped Reps/Minutes x13 Approximation Other Exercise Name Hip approximation in quad, therapist overpressure through hips quadruped child's pose Other Exercise Name Child's pose quadruped Resistance CGA Reps/Minutes 5x2 sets Comments pt self heavy support BUEs PT-OP-T Assessment and Plan Start: 03/08/22 17:00 Freq: Status: Active Protocol: Document 05/06/24 15:17 DCW (Rec: 05/06/24 16:04 DCW [id number]) Physical Therapy Assessment Goals Four Impairment Bilateral triceps weakness (R 4-, L 3+) [facility] Goal (LTG) Pt to demonstrate improved triceps strength to at least 4 /5 bilaterally for elbow extension in order to improve transfer ability. LTG Duration 07/21/24 Three Impairment Pt does not have any motor function throughout bilateral LEs Short Term Goal (STG) Pt to demonstrate 1/5 trace motor contraction in at least one quad in order to begin focus on LE mobility if neural functional return begins. STG Duration Met Grocery Clerk Checking Goal (LTG) Pt to demonstrate right quad strength to at least 2/5, demonstrating movement into ROM in an antigravity position LTG Duration 07/21/24 Two Impairment Pt struggles with lateral transfer/scooting along EOB [facility] Goal (LTG) Pt to perform lateral scoot transfer using proper technique without any verbal cues 4x in a row. LTG Duration 07/21/24 One Impairment Pt does not have an appropriate home exercise program Short Term Goal (STG) Pt to be independent and compliant with an appropriate HEP STG Duration 07/21/24 Assessment Summary Assessment Pt had slightly increased difficulty in quarduped today, less overall stability when performing activities. Was still able to get himself into position with increased ease, however. Physical Therapy Plan Frequency and Duration Frequency of Treatment 2x/Week Plan of Care Start Date 04/22/24 Plan of Care End Date 07/21/24 Therapeutic Interventions Therapeutic Interventions Aquatic Therapy,Balance Training,Coordination Training ,Gait Training,Home Exercise Program,Manual Therapy, Neuromuscular Re-education, Orthotic/Prosthetic Management ,Patient/Caregiver Education, Self-Care/Home Management, Sensory Integration,Soft Tissue Mobilization, Therapeutic Activities, Therapeutic Exercises, Wheelchair Management Next Visit Focus/Plan Next Note Type Treatment Note Next Visit Plan Continue PT per POC: Continue L log roll, L SL>quadruped, Lateral transfers to elevated surfaces more trunk flexion/ frequent scoots decreased assist, Wheelchair wheelies, curb management, POC: Continue UE and core strengthening, LE PROM and manual stretching. Transfers, mobility, LE ROM, pt will benefit from continued breakdown of transfers to improve efficiency and mechanics, as well as working on more seated balance EOB.
--- NOTE | 2024-05-10 11:30 | PT.OTN ---
Current Diagnoses Paraplegia, unspecified (05/10/24) Other specified personal risk factors, not elsewhere classified (05/10/24) Other specified postprocedural states (05/10/24) Physical Therapy Treatment Note PT-OP-A Visit Information Start: 03/08/22 17:00 Freq: Status: Active Protocol: Document 05/10/24 10:47 DCW (Rec: 05/10/24 11:30 DCW [id number]) Out-Patient Physical Therapy Visit Information Visit Information Visit Type Treatment Note Visit Start Time 10:47 Visit Stop Time 11:30 Visit Number [id number] Number of TUB OPERATOR Visits 0 Evaluation Information Evaluation Date 03/08/22 PT-OP-B Current Condition Start: 03/08/22 17:00 Freq: Status: Active Protocol: Document 03/17/24 11:29 SAK (Rec: 03/17/24 12:23 SAK [id number]) Current Condition History of Current Condition Onset Date 12/16/21 Current Complaints Paraplegia History of Current Condition Pt is a 71 year old male with a very unfortunate medical history. Pt was hiking [employer] on 12/16/21 with a friend, finished up, drive back to his friend's home to drop him off, and noticed his left leg was collapsing. By the time pt drove home, both legs were giving out and numb. Pt was suddenly paralized from the waist down, was taken to the ED, and was flown to [facility] on 12/17/21. The following day, he underwent a laminectomy to relieve pressure from the thoracic epidural hematoma which had developed following his hike, which was pressing on his spinal cord. Following surgery , pt was in recovery for a week and was then transfered to rehab for 20 days, when he was finally discharged home in a wheelchair on 01/19/22. Pt reports his surgeon informed him that it is a possibility that he gets some return of nerve function. Has experienced some changes in his right LE, but has no motor function at this time from ~ T10 down. Minimal sensory return on right side, none on left. Pt has been anxious to get in to therapy and do everything he can to help return to function. Pt's , who attended his evaluation, notes that she has been doing a lot of PROM in his legs at night to keep everything moving. Pt can feel some stretching during PROM in his right leg. Pt has additionally already started occupational therapy, and has been practicing some seated stabilization. Pt transfers with a slide board, but notes it is difficult to do into his car, because he has to transfer upward at an incline. PT-OP-C Subjective Start: 03/08/22 17:00 Freq: Status: Active Protocol: Document 05/10/24 10:47 DCW (Rec: 05/10/24 11:30 DCW [id number]) OP-PT Subjective Patient Comments Patient Comments I'm feeling alright, I'm really optimistic about this right side. My left foot is still my problem child, just lagging behind. PT-OP-G Mobility & Gait Start: 03/08/22 17:00 Freq: Status: Active Protocol: Document 04/22/24 15:21 DCW (Rec: 04/22/24 16:02 DCW [id number]) OP Mobility Evaluation Transfers Bed to Chair Transfers Transfers using UE, improved with side-side movement, requires minimal verbal cues for LE positioning Car Transfers uses slide board, stabilizes front to back and prevent slide down board Functional Movements Other Functional Movements Pt performs sit->supine->prone ->quadruped with SBA 80% of the time, requires Min Ax1 20% , typically with positioning of knees or feet, or getting up into quad from prone Wheelchair Management Type of Wheelchair Manual w/c Assessment Details Unable to perform tilt back to get over curb. PT-OP-H Neuro Start: 03/08/22 17:00 Freq: Status: Active Protocol: Document 04/22/24 15:21 DCW (Rec: 04/22/24 16:02 DCW [id number]) Sensation Evaluation Gross Sensation Gross Sensation Left LE Impaired,Right LE Impaired,Trunk Impaired Sensation Description Paresthesia,Numbness,Tingling, Pins & [place],Burning Dermatome Impairments L1,L2,L3,L4,L5,S1,S2,S3,S4-5 Location Details Right Leg Light Touch Impaired Sharp/Dull Impaired Deep Pressure Intact/Normal Hot/Cold Absent Protective Sensation Absent Proprioception (Position) Impaired Kinesthesia (Movement) Impaired Two-Point Discrimination Impaired Tactile Localization Impaired Stereognosis Impaired Left Leg Light Touch Absent Sharp/Dull Absent Deep Pressure Impaired Hot/Cold Impaired Protective Sensation Absent Proprioception (Position) Absent Kinesthesia (Movement) Impaired Two-Point Discrimination Absent Tactile Localization Absent Stereognosis Absent Comments Summary Comments B protective reflex vs sharp present Deep Tendon Reflex & Clonus Assessment Deep Tendon Reflex Right Achilles Deep Tendon Reflex 2+ Normal Right Patellar Deep Tendon Reflex 2+ Normal Left Achilles Deep Tendon Reflex 2+ Normal Left Patellar Deep Tendon Reflex 1+ Diminished Ankle Clonus Right Clonus Assessment Sustained Left Clonus Assessment Sustained Muscle Tone Tone Assessment Right Lower Extremity Flexor Tone Description Moderate Hypertonicity Extensor Tone Description Moderate Hypertonicity Left Lower Extremity Flexor Tone Description Moderate Hypertonicity Extensor Tone Description Moderate Hypertonicity PT-OP-J Posture/Palpation/Skin Start: 03/08/22 17:00 Freq: Status: Active Protocol: Document 04/22/24 15:21 DCW (Rec: 04/22/24 16:02 DCW [id number]) Posture Evaluation Comments Posture Comments Sitting EOB with good core control and no instability, uses UEs for support. Recovers from most directional pushing . Improved ability to reach outside of base of support. PT-OP-M Strength Start: 08/21/22 15:38 Freq: Status: Active Protocol: Document 04/22/24 15:21 DCW (Rec: 04/22/24 16:02 DCW [id number]) Shoulder Strength Shoulder Manual Muscle Testing Right Flexion 4 Good Extension 4+ Good+ Abduction (C5) 4 Good External Rotation 3+ Fair+ Internal Rotation 4 Good Left Flexion 4 Good Extension 4+ Good+ Abduction (C5) 4- Good- External Rotation 3+ Fair+ Internal Rotation 4 Good Elbow/Forearm Strength Elbow and Forearm Manual Muscle Testing Right Flexion (C6) 4+ Good+ Extension (C7) 4- Good- Left Flexion (C6) 4 Good Extension (C7) 3+ Fair+ Hand Biofuels Processing Technician/Pinch Strength Hand Dominance Hand Dominance Right Hand Strength Right Biofuels Processing Technician (lbs) 90 Left Biofuels Processing Technician (lbs) 80 Hip Strength Hip Manual Muscle Testing Right Flexion (L2) 1 Trace Extension (S1) 2- Poor- Adduction 2- Poor- Left Flexion (L2) 1 Trace Extension (S1) 2- Poor- Adduction 1 Trace Knee Strength Knee Manual Muscle Testing Right Flexion (S2) 2- Poor- Extension (L3) 1 Trace Left Flexion (S2) 2- Poor- Extension (L3) 1 Trace Ankle/Foot Strength Ankle and Foot Manual Muscle Testing Right Plantarflexion (S1) 2 Poor Left Plantarflexion (S1) 1 Trace PT-OP-Q Treatments Start: 03/08/22 17:00 Freq: Status: Active Protocol: Document 05/10/24 10:47 DCW (Rec: 05/10/24 11:30 DCW [id number]) Cardio Equipment Recumbent Stepper (Sci-Fit) Duration (Minutes) 10 Resistance 4 Seat Position Seat removed for w/c Other Anti-tip extended to longest Gym Equipment Therapeutic Ball Abdominal Curl Exercise Details Press ball into abdomen in supine Ball Size/Color Blue - 45 cm Body Position Hooklying LTR Exercise Details LTR Ball Size/Color Red - 55 cm Body Position Supine Comments Min Ax1 Therapeutic Exercises Other Exercises Thread the needle Other Exercise Name Thread the needle Side bilateral Comments Quadruped - Therapist assisted Long-kneeling Other Exercise Name Long kneeling /c self thigh support Comments cues for breath Push-ups Other Exercise Name Push-ups in quadruped Reps/Minutes x20 Approximation Other Exercise Name Hip approximation in quad, therapist overpressure through hips quadruped child's pose Other Exercise Name Child's pose Therapeutic Activity Therapeutic Activity supine>prone>quadruped Name SBA: into quadruped<> L SL, heavy pt BUE support PT-OP-T Assessment and Plan Start: 03/08/22 17:00 Freq: Status: Active Protocol: Document 05/10/24 10:47 DCW (Rec: 05/10/24 11:30 DCW [id number]) Physical Therapy Assessment Impairments Impairments Activity Tolerance,Balance, Coordination,Functional Activities,Functional Mobility ,Gait,Integument,Sensation, Soft Tissue Mobility,Strength, Tone,Transfers Goals Four Impairment Bilateral triceps weakness (R 4-, L 3+) Rn Clinical Documentation Specialist Goal (LTG) Pt to demonstrate improved triceps strength to at least 4 /5 bilaterally for elbow extension in order to improve transfer ability. LTG Duration 07/21/24 Three Impairment Pt does not have any motor function throughout bilateral LEs Short Term Goal (STG) Pt to demonstrate 1/5 trace motor contraction in at least one quad in order to begin focus on LE mobility if neural functional return begins. STG Duration Met Residential Goal (LTG) Pt to demonstrate right quad strength to at least 2/5, demonstrating movement into ROM in an antigravity position LTG Duration 07/21/24 Two Impairment Pt struggles with lateral transfer/scooting along EOB Rn Clinical Documentation Specialist Goal (LTG) Pt to perform lateral scoot transfer using proper technique without any verbal cues 4x in a row. LTG Duration 07/21/24 One Impairment Pt does not have an appropriate home exercise program Short Term Goal (STG) Pt to be independent and compliant with an appropriate HEP STG Duration 07/21/24 Assessment Summary Assessment Transfers/bed mobility continues to improve. Pt showing progress with UE strength, particularly quarduped push-ups. Cntinue working on UE strength, transfers, w/c mobility, and LE muscle contraction. Physical Therapy Plan Frequency and Duration Frequency of Treatment 2x/Week Plan of Care Start Date 04/22/24 Plan of Care End Date 07/21/24 Therapeutic Interventions Therapeutic Interventions Aquatic Therapy,Balance Training,Coordination Training ,Gait Training,Home Exercise Program,Manual Therapy, Neuromuscular Re-education, Orthotic/Prosthetic Management ,Patient/Caregiver Education, Self-Care/Home Management, Sensory Integration,Soft Tissue Mobilization, Therapeutic Activities, Therapeutic Exercises, Wheelchair Management Next Visit Focus/Plan Next Note Type Treatment Note Next Visit Plan Continue PT per POC: Continue L log roll, L SL>quadruped, Lateral transfers to elevated surfaces more trunk flexion/ frequent scoots decreased assist, Wheelchair wheelies, curb management, POC: Continue UE and core strengthening, LE PROM and manual stretching. Transfers, mobility, LE ROM, pt will benefit from continued breakdown of transfers to improve efficiency and mechanics, as well as working on more seated balance EOB.
--- NOTE | 2024-05-18 16:06 | PT.OTN ---
Current Diagnoses Paraplegia, unspecified (05/18/24) Other specified personal risk factors, not elsewhere classified (05/18/24) Other specified postprocedural states (05/18/24) Physical Therapy Treatment Note PT-OP-A Visit Information Start: 03/08/22 17:00 Freq: Status: Active Protocol: Document 05/18/24 15:20 DCW (Rec: 05/18/24 16:06 DCW [id number]) Out-Patient Physical Therapy Visit Information Visit Information Visit Type Treatment Note Visit Start Time 15:20 Visit Stop Time 16:00 Visit Number [id number] Number of SCRATCH POLISHER Visits 0 Evaluation Information Evaluation Date 03/08/22 PT-OP-B Current Condition Start: 03/08/22 17:00 Freq: Status: Active Protocol: Document 03/17/24 11:29 SAK (Rec: 03/17/24 12:23 SAK [id number]) Current Condition History of Current Condition Onset Date 12/16/21 Current Complaints Paraplegia History of Current Condition Pt is a 71 year old male with a very unfortunate medical history. Pt was hiking [place] on 12/16/21 with a friend, finished up, drive back to his friend's home to drop him off, and noticed his left leg was collapsing. By the time pt drove home, both legs were giving out and numb. Pt was suddenly paralized from the waist down, was taken to the ED, and was flown to [facility] on 12/17/21. The following day, he underwent a laminectomy to relieve pressure from the thoracic epidural hematoma which had developed following his hike, which was pressing on his spinal cord. Following surgery , pt was in recovery for a week and was then transfered to rehab for 20 days, when he was finally discharged home in a wheelchair on 01/19/22. Pt reports his surgeon informed him that it is a possibility that he gets some return of nerve function. Has experienced some changes in his right LE, but has no motor function at this time from ~ T10 down. Minimal sensory return on right side, none on left. Pt has been anxious to get in to therapy and do everything he can to help return to function. Pt's , who attended his evaluation, notes that she has been doing a lot of PROM in his legs at night to keep everything moving. Pt can feel some stretching during PROM in his right leg. Pt has additionally already started occupational therapy, and has been practicing some seated stabilization. Pt transfers with a slide board, but notes it is difficult to do into his car, because he has to transfer upward at an incline. PT-OP-C Subjective Start: 03/08/22 17:00 Freq: Status: Active Protocol: Document 05/18/24 15:20 DCW (Rec: 05/18/24 16:06 DCW [id number]) OP-PT Subjective Patient Comments Patient Comments I've been so busy at work that I haven't had much time to do much else. PT-OP-G Mobility & Gait Start: 03/08/22 17:00 Freq: Status: Active Protocol: Document 04/22/24 15:21 DCW (Rec: 04/22/24 16:02 DCW [id number]) OP Mobility Evaluation Transfers Bed to Chair Transfers Transfers using UE, improved with side-side movement, requires minimal verbal cues for LE positioning Car Transfers uses slide board, stabilizes front to back and prevent slide down board Functional Movements Other Functional Movements Pt performs sit->supine->prone ->quadruped with SBA 80% of the time, requires Min Ax1 20% , typically with positioning of knees or feet, or getting up into quad from prone Wheelchair Management Type of Wheelchair Manual w/c Assessment Details Unable to perform tilt back to get over curb. PT-OP-H Neuro Start: 03/08/22 17:00 Freq: Status: Active Protocol: Document 04/22/24 15:21 DCW (Rec: 04/22/24 16:02 DCW [id number]) Sensation Evaluation Gross Sensation Gross Sensation Left LE Impaired,Right LE Impaired,Trunk Impaired Sensation Description Paresthesia,Numbness,Tingling, Pins & [place],Burning Dermatome Impairments L1,L2,L3,L4,L5,S1,S2,S3,S4-5 Location Details Right Leg Light Touch Impaired Sharp/Dull Impaired Deep Pressure Intact/Normal Hot/Cold Absent Protective Sensation Absent Proprioception (Position) Impaired Kinesthesia (Movement) Impaired Two-Point Discrimination Impaired Tactile Localization Impaired Stereognosis Impaired Left Leg Light Touch Absent Sharp/Dull Absent Deep Pressure Impaired Hot/Cold Impaired Protective Sensation Absent Proprioception (Position) Absent Kinesthesia (Movement) Impaired Two-Point Discrimination Absent Tactile Localization Absent Stereognosis Absent Comments Summary Comments B protective reflex vs sharp present Deep Tendon Reflex & Clonus Assessment Deep Tendon Reflex Right Achilles Deep Tendon Reflex 2+ Normal Right Patellar Deep Tendon Reflex 2+ Normal Left Achilles Deep Tendon Reflex 2+ Normal Left Patellar Deep Tendon Reflex 1+ Diminished Ankle Clonus Right Clonus Assessment Sustained Left Clonus Assessment Sustained Muscle Tone Tone Assessment Right Lower Extremity Flexor Tone Description Moderate Hypertonicity Extensor Tone Description Moderate Hypertonicity Left Lower Extremity Flexor Tone Description Moderate Hypertonicity Extensor Tone Description Moderate Hypertonicity PT-OP-J Posture/Palpation/Skin Start: 03/08/22 17:00 Freq: Status: Active Protocol: Document 04/22/24 15:21 DCW (Rec: 04/22/24 16:02 DCW [id number]) Posture Evaluation Comments Posture Comments Sitting EOB with good core control and no instability, uses UEs for support. Recovers from most directional pushing . Improved ability to reach outside of base of support. PT-OP-M Strength Start: 08/21/22 15:38 Freq: Status: Active Protocol: Document 04/22/24 15:21 DCW (Rec: 04/22/24 16:02 DCW [id number]) Shoulder Strength Shoulder Manual Muscle Testing Right Flexion 4 Good Extension 4+ Good+ Abduction (C5) 4 Good External Rotation 3+ Fair+ Internal Rotation 4 Good Left Flexion 4 Good Extension 4+ Good+ Abduction (C5) 4- Good- External Rotation 3+ Fair+ Internal Rotation 4 Good Elbow/Forearm Strength Elbow and Forearm Manual Muscle Testing Right Flexion (C6) 4+ Good+ Extension (C7) 4- Good- Left Flexion (C6) 4 Good Extension (C7) 3+ Fair+ Hand Teacher Education Instructor/Pinch Strength Hand Dominance Hand Dominance Right Hand Strength Right Teacher Education Instructor (lbs) 90 Left Teacher Education Instructor (lbs) 80 Hip Strength Hip Manual Muscle Testing Right Flexion (L2) 1 Trace Extension (S1) 2- Poor- Adduction 2- Poor- Left Flexion (L2) 1 Trace Extension (S1) 2- Poor- Adduction 1 Trace Knee Strength Knee Manual Muscle Testing Right Flexion (S2) 2- Poor- Extension (L3) 1 Trace Left Flexion (S2) 2- Poor- Extension (L3) 1 Trace Ankle/Foot Strength Ankle and Foot Manual Muscle Testing Right Plantarflexion (S1) 2 Poor Left Plantarflexion (S1) 1 Trace PT-OP-Q Treatments Start: 03/08/22 17:00 Freq: Status: Active Protocol: Document 05/18/24 15:20 DCW (Rec: 05/18/24 16:06 DCW [id number]) Cardio Equipment Recumbent Stepper (Sci-Fit) Duration (Minutes) 10 Resistance 4 Seat Position Seat removed for w/c Other Anti-tip extended to longest, 30# weights on front of w/c Gym Equipment Therapeutic Ball Abdominal Curl Exercise Details Press ball into abdomen in supine Ball Size/Color Blue - 45 cm Body Position Hooklying Therapeutic Exercises Other Exercises Thread the needle Other Exercise Name Thread the needle Side bilateral Comments Quadruped - Therapist assisted Long-kneeling Other Exercise Name Long kneeling /c self thigh support Comments cues for breath Push-ups Other Exercise Name Push-ups in quadruped Reps/Minutes x20 Approximation Other Exercise Name Hip approximation in quad, therapist overpressure through hips quadruped child's pose Other Exercise Name Child's pose Therapeutic Activity Therapeutic Activity supine>prone>quadruped Name SBA: into quadruped<> L SL, heavy pt BUE support PT-OP-T Assessment and Plan Start: 03/08/22 17:00 Freq: Status: Active Protocol: Document 05/18/24 15:20 DCW (Rec: 05/18/24 16:06 DCW [id number]) Physical Therapy Assessment Impairments Impairments Activity Tolerance,Balance, Coordination,Functional Activities,Functional Mobility ,Gait,Integument,Sensation, Soft Tissue Mobility,Strength, Tone,Transfers Goals Four Impairment Bilateral triceps weakness (R 4-, L 3+) Mail Distribution Scheme Examiner Goal (LTG) Pt to demonstrate improved triceps strength to at least 4 /5 bilaterally for elbow extension in order to improve transfer ability. LTG Duration 07/21/24 Three Impairment Pt does not have any motor function throughout bilateral LEs Short Term Goal (STG) Pt to demonstrate 1/5 trace motor contraction in at least one quad in order to begin focus on LE mobility if neural functional return begins. STG Duration Met Nursing Home Goal (LTG) Pt to demonstrate right quad strength to at least 2/5, demonstrating movement into ROM in an antigravity position LTG Duration 07/21/24 Two Impairment Pt struggles with lateral transfer/scooting along EOB Nursing Home Goal (LTG) Pt to perform lateral scoot transfer using proper technique without any verbal cues 4x in a row. LTG Duration 07/21/24 One Impairment Pt does not have an appropriate home exercise program Short Term Goal (STG) Pt to be independent and compliant with an appropriate HEP STG Duration 07/21/24 Assessment Summary Assessment Pt did much better today with thread the needle, able to better support himself and stabilize laterally. Continue to work on functional mobility , activity tolerance, UE strength Physical Therapy Plan Frequency and Duration Frequency of Treatment 2x/Week Plan of Care Start Date 04/22/24 Plan of Care End Date 07/21/24 Therapeutic Interventions Therapeutic Interventions Aquatic Therapy,Balance Training,Coordination Training ,Gait Training,Home Exercise Program,Manual Therapy, Neuromuscular Re-education, Orthotic/Prosthetic Management ,Patient/Caregiver Education, Self-Care/Home Management, Sensory Integration,Soft Tissue Mobilization, Therapeutic Activities, Therapeutic Exercises, Wheelchair Management Next Visit Focus/Plan Next Note Type Treatment Note Next Visit Plan Continue PT per POC: Continue L log roll, L SL>quadruped, Lateral transfers to elevated surfaces more trunk flexion/ frequent scoots decreased assist, Wheelchair wheelies, curb management, POC: Continue UE and core strengthening, LE PROM and manual stretching. Transfers, mobility, LE ROM, pt will benefit from continued breakdown of transfers to improve efficiency and mechanics, as well as working on more seated balance EOB.
--- NOTE | 2024-05-26 16:44 | PT.OTN ---
Current Diagnoses Paraplegia, unspecified (05/26/24) Other specified personal risk factors, not elsewhere classified (05/26/24) Other specified postprocedural states (05/26/24) Physical Therapy Treatment Note PT-OP-A Visit Information Start: 03/08/22 17:00 Freq: Status: Active Protocol: Document 05/26/24 15:28 NBM (Rec: 05/26/24 16:44 NBM [id number]) Out-Patient Physical Therapy Visit Information Visit Information Visit Type Treatment Note Visit Start Time 15:25 Visit Stop Time 16:05 Visit Number [id number] Number of FORGING DIES FINAL FINISHER Visits 1 Evaluation Information Evaluation Date 03/08/22 PT-OP-B Current Condition Start: 03/08/22 17:00 Freq: Status: Active Protocol: Document 03/17/24 11:29 SAK (Rec: 03/17/24 12:23 SAK [id number]) Current Condition History of Current Condition Onset Date 12/16/21 Current Complaints Paraplegia History of Current Condition Pt is a 71 year old male with a very unfortunate medical history. Pt was hiking [place] on 12/16/21 with a friend, finished up, drive back to his friend's home to drop him off, and noticed his left leg was collapsing. By the time pt drove home, both legs were giving out and numb. Pt was suddenly paralized from the waist down, was taken to the ED, and was flown to [facility] on 12/17/21. The following day, he underwent a laminectomy to relieve pressure from the thoracic epidural hematoma which had developed following his hike, which was pressing on his spinal cord. Following surgery , pt was in recovery for a week and was then transfered to rehab for 20 days, when he was finally discharged home in a wheelchair on 01/19/22. Pt reports his surgeon informed him that it is a possibility that he gets some return of nerve function. Has experienced some changes in his right LE, but has no motor function at this time from ~ T10 down. Minimal sensory return on right side, none on left. Pt has been anxious to get in to therapy and do everything he can to help return to function. Pt's , who attended his evaluation, notes that she has been doing a lot of PROM in his legs at night to keep everything moving. Pt can feel some stretching during PROM in his right leg. Pt has additionally already started occupational therapy, and has been practicing some seated stabilization. Pt transfers with a slide board, but notes it is difficult to do into his car, because he has to transfer upward at an incline. PT-OP-C Subjective Start: 03/08/22 17:00 Freq: Status: Active Protocol: Document 05/26/24 15:28 NBM (Rec: 05/26/24 16:44 NBM [id number]) OP-PT Subjective Patient Comments Patient Comments Toby reports the only real change in my condition is that here lately I'm experiencing a lot more spasticity, especially at night when I'm just lying in bed. It makes it really hard to sleep. He has baclofen for spasticity but doesn't want to take it because it makes his brain foggy. PT-OP-G Mobility & Gait Start: 03/08/22 17:00 Freq: Status: Active Protocol: Document 04/22/24 15:21 DCW (Rec: 04/22/24 16:02 DCW [id number]) OP Mobility Evaluation Transfers Bed to Chair Transfers Transfers using UE, improved with side-side movement, requires minimal verbal cues for LE positioning Car Transfers uses slide board, stabilizes front to back and prevent slide down board Functional Movements Other Functional Movements Pt performs sit->supine->prone ->quadruped with SBA 80% of the time, requires Min Ax1 20% , typically with positioning of knees or feet, or getting up into quad from prone Wheelchair Management Type of Wheelchair Manual w/c Assessment Details Unable to perform tilt back to get over curb. PT-OP-H Neuro Start: 03/08/22 17:00 Freq: Status: Active Protocol: Document 04/22/24 15:21 DCW (Rec: 04/22/24 16:02 DCW [id number]) Sensation Evaluation Gross Sensation Gross Sensation Left LE Impaired,Right LE Impaired,Trunk Impaired Sensation Description Paresthesia,Numbness,Tingling, Pins & [place],Burning Dermatome Impairments L1,L2,L3,L4,L5,S1,S2,S3,S4-5 Location Details Right Leg Light Touch Impaired Sharp/Dull Impaired Deep Pressure Intact/Normal Hot/Cold Absent Protective Sensation Absent Proprioception (Position) Impaired Kinesthesia (Movement) Impaired Two-Point Discrimination Impaired Tactile Localization Impaired Stereognosis Impaired Left Leg Light Touch Absent Sharp/Dull Absent Deep Pressure Impaired Hot/Cold Impaired Protective Sensation Absent Proprioception (Position) Absent Kinesthesia (Movement) Impaired Two-Point Discrimination Absent Tactile Localization Absent Stereognosis Absent Comments Summary Comments B protective reflex vs sharp present Deep Tendon Reflex & Clonus Assessment Deep Tendon Reflex Right Achilles Deep Tendon Reflex 2+ Normal Right Patellar Deep Tendon Reflex 2+ Normal Left Achilles Deep Tendon Reflex 2+ Normal Left Patellar Deep Tendon Reflex 1+ Diminished Ankle Clonus Right Clonus Assessment Sustained Left Clonus Assessment Sustained Muscle Tone Tone Assessment Right Lower Extremity Flexor Tone Description Moderate Hypertonicity Extensor Tone Description Moderate Hypertonicity Left Lower Extremity Flexor Tone Description Moderate Hypertonicity Extensor Tone Description Moderate Hypertonicity PT-OP-J Posture/Palpation/Skin Start: 03/08/22 17:00 Freq: Status: Active Protocol: Document 04/22/24 15:21 DCW (Rec: 04/22/24 16:02 DCW [id number]) Posture Evaluation Comments Posture Comments Sitting EOB with good core control and no instability, uses UEs for support. Recovers from most directional pushing . Improved ability to reach outside of base of support. PT-OP-M Strength Start: 08/21/22 15:38 Freq: Status: Active Protocol: Document 04/22/24 15:21 DCW (Rec: 04/22/24 16:02 DCW [id number]) Shoulder Strength Shoulder Manual Muscle Testing Right Flexion 4 Good Extension 4+ Good+ Abduction (C5) 4 Good External Rotation 3+ Fair+ Internal Rotation 4 Good Left Flexion 4 Good Extension 4+ Good+ Abduction (C5) 4- Good- External Rotation 3+ Fair+ Internal Rotation 4 Good Elbow/Forearm Strength Elbow and Forearm Manual Muscle Testing Right Flexion (C6) 4+ Good+ Extension (C7) 4- Good- Left Flexion (C6) 4 Good Extension (C7) 3+ Fair+ Hand Sex Worker Or Escort/Pinch Strength Hand Dominance Hand Dominance Right Hand Strength Right Sex Worker Or Escort (lbs) 90 Left Sex Worker Or Escort (lbs) 80 Hip Strength Hip Manual Muscle Testing Right Flexion (L2) 1 Trace Extension (S1) 2- Poor- Adduction 2- Poor- Left Flexion (L2) 1 Trace Extension (S1) 2- Poor- Adduction 1 Trace Knee Strength Knee Manual Muscle Testing Right Flexion (S2) 2- Poor- Extension (L3) 1 Trace Left Flexion (S2) 2- Poor- Extension (L3) 1 Trace Ankle/Foot Strength Ankle and Foot Manual Muscle Testing Right Plantarflexion (S1) 2 Poor Left Plantarflexion (S1) 1 Trace PT-OP-Q Treatments Start: 03/08/22 17:00 Freq: Status: Active Protocol: Document 05/26/24 15:28 [facility] (Rec: 05/26/24 16:44 [facility] [id number]) Gym Equipment Shuttle Recovery Bilateral Squats Details with BUE assist on thighs, strap above knees for LE alignment Resistance 12#>25# assisted ascending, BLE only descending Shuttle Recovery Platform Stable Reps/Time eccentric lowering w/ breath, concentric w/ heel push; proximation RLE Therapeutic Exercises Sitting Exercises TS rotation Sitting Exercise Name arms extended: segmental and non-seg c-sp rotation Side bilateral Resistance AAROM therapist added rotation stretch and stability Fwd&bwd & lateral Equipment Used blue ball> 3.3 lb ball Reps/Minutes 15 ea PT-OP-T Assessment and Plan Start: 03/08/22 17:00 Freq: Status: Active Protocol: Document 05/26/24 15:28 [facility] (Rec: 05/26/24 16:44 [facility] [id number]) Physical Therapy Assessment Goals Four Impairment Bilateral triceps weakness (R 4-, L 3+) Radio Electrician Goal (LTG) Pt to demonstrate improved triceps strength to at least 4 /5 bilaterally for elbow extension in order to improve transfer ability. LTG Duration 07/21/24 Three Impairment Pt does not have any motor function throughout bilateral LEs Short Term Goal (STG) Pt to demonstrate 1/5 trace motor contraction in at least one quad in order to begin focus on LE mobility if neural functional return begins. STG Duration Met Residential Goal (LTG) Pt to demonstrate right quad strength to at least 2/5, demonstrating movement into ROM in an antigravity position LTG Duration 07/21/24 Two Impairment Pt struggles with lateral transfer/scooting along EOB Residential Goal (LTG) Pt to perform lateral scoot transfer using proper technique without any verbal cues 4x in a row. LTG Duration 07/21/24 One Impairment Pt does not have an appropriate home exercise program Short Term Goal (STG) Pt to be independent and compliant with an appropriate HEP STG Duration 07/21/24 Assessment Summary Assessment Toby is able to completely arrest descent on Shuttle Recovery 12#s at various points throughout eccentric range with initial cueing for breathwork. He performs smoothe transfer from Shuttle Recovery to w/c CGA. Edu to pt re: diaphragmatic breathing for parasympathetic nervous system activation at night and to report back if spasticity improves. Physical Therapy Plan Frequency and Duration Frequency of Treatment 2x/Week Plan of Care Start Date 04/22/24 Plan of Care End Date 07/21/24 Therapeutic Interventions Therapeutic Interventions Aquatic Therapy,Balance Training,Coordination Training ,Gait Training,Home Exercise Program,Manual Therapy, Neuromuscular Re-education, Orthotic/Prosthetic Management ,Patient/Caregiver Education, Self-Care/Home Management, Sensory Integration,Soft Tissue Mobilization, Therapeutic Activities, Therapeutic Exercises, Wheelchair Management Next Visit Focus/Plan Next Note Type Treatment Note Next Visit Plan Continue PT per POC: Continue L log roll, L SL>quadruped, Lateral transfers to elevated surfaces more trunk flexion/ frequent scoots decreased assist, Wheelchair wheelies, curb management, POC: Continue UE and core strengthening, LE PROM and manual stretching. Transfers, mobility, LE ROM, pt will benefit from continued breakdown of transfers to improve efficiency and mechanics, as well as working on more seated balance EOB.
--- NOTE | 2024-05-28 16:18 | PT.OTN ---
Current Diagnoses Paraplegia, unspecified (05/28/24) Other specified personal risk factors, not elsewhere classified (05/28/24) Other specified postprocedural states (05/28/24) Physical Therapy Treatment Note PT-OP-A Visit Information Start: 03/08/22 17:00 Freq: Status: Active Protocol: Document 05/28/24 15:25 DCW (Rec: 05/28/24 16:17 DCW [id number]) Out-Patient Physical Therapy Visit Information Visit Information Visit Type Treatment Note Visit Start Time 15:25 Visit Stop Time 16:05 Visit Number [id number] Number of GROUNDS CREW SUPERVISOR Visits 0 Evaluation Information Evaluation Date 03/08/22 PT-OP-B Current Condition Start: 03/08/22 17:00 Freq: Status: Active Protocol: Document 03/17/24 11:29 SAK (Rec: 03/17/24 12:23 SAK [id number]) Current Condition History of Current Condition Onset Date 12/16/21 Current Complaints Paraplegia History of Current Condition Pt is a 71 year old male with a very unfortunate medical history. Pt was hiking [place] on 12/16/21 with a friend, finished up, drive back to his friend's home to drop him off, and noticed his left leg was collapsing. By the time pt drove home, both legs were giving out and numb. Pt was suddenly paralized from the waist down, was taken to the ED, and was flown to [facility] on 12/17/21. The following day, he underwent a laminectomy to relieve pressure from the thoracic epidural hematoma which had developed following his hike, which was pressing on his spinal cord. Following surgery , pt was in recovery for a week and was then transfered to rehab for 20 days, when he was finally discharged home in a wheelchair on 01/19/22. Pt reports his surgeon informed him that it is a possibility that he gets some return of nerve function. Has experienced some changes in his right LE, but has no motor function at this time from ~ T10 down. Minimal sensory return on right side, none on left. Pt has been anxious to get in to therapy and do everything he can to help return to function. Pt's , who attended his evaluation, notes that she has been doing a lot of PROM in his legs at night to keep everything moving. Pt can feel some stretching during PROM in his right leg. Pt has additionally already started occupational therapy, and has been practicing some seated stabilization. Pt transfers with a slide board, but notes it is difficult to do into his car, because he has to transfer upward at an incline. PT-OP-C Subjective Start: 03/08/22 17:00 Freq: Status: Active Protocol: Document 05/28/24 15:25 DCW (Rec: 05/28/24 16:17 DCW [id number]) OP-PT Subjective Patient Comments Patient Comments Pt apologizes for running late today, got stuck on the phone with [email or web address]. PT-OP-G Mobility & Gait Start: 03/08/22 17:00 Freq: Status: Active Protocol: Document 04/22/24 15:21 DCW (Rec: 04/22/24 16:02 DCW [id number]) OP Mobility Evaluation Transfers Bed to Chair Transfers Transfers using UE, improved with side-side movement, requires minimal verbal cues for LE positioning Car Transfers uses slide board, stabilizes front to back and prevent slide down board Functional Movements Other Functional Movements Pt performs sit->supine->prone ->quadruped with SBA 80% of the time, requires Min Ax1 20% , typically with positioning of knees or feet, or getting up into quad from prone Wheelchair Management Type of Wheelchair Manual w/c Assessment Details Unable to perform tilt back to get over curb. PT-OP-H Neuro Start: 03/08/22 17:00 Freq: Status: Active Protocol: Document 04/22/24 15:21 DCW (Rec: 04/22/24 16:02 DCW [id number]) Sensation Evaluation Gross Sensation Gross Sensation Left LE Impaired,Right LE Impaired,Trunk Impaired Sensation Description Paresthesia,Numbness,Tingling, Pins & [place],Burning Dermatome Impairments L1,L2,L3,L4,L5,S1,S2,S3,S4-5 Location Details Right Leg Light Touch Impaired Sharp/Dull Impaired Deep Pressure Intact/Normal Hot/Cold Absent Protective Sensation Absent Proprioception (Position) Impaired Kinesthesia (Movement) Impaired Two-Point Discrimination Impaired Tactile Localization Impaired Stereognosis Impaired Left Leg Light Touch Absent Sharp/Dull Absent Deep Pressure Impaired Hot/Cold Impaired Protective Sensation Absent Proprioception (Position) Absent Kinesthesia (Movement) Impaired Two-Point Discrimination Absent Tactile Localization Absent Stereognosis Absent Comments Summary Comments B protective reflex vs sharp present Deep Tendon Reflex & Clonus Assessment Deep Tendon Reflex Right Achilles Deep Tendon Reflex 2+ Normal Right Patellar Deep Tendon Reflex 2+ Normal Left Achilles Deep Tendon Reflex 2+ Normal Left Patellar Deep Tendon Reflex 1+ Diminished Ankle Clonus Right Clonus Assessment Sustained Left Clonus Assessment Sustained Muscle Tone Tone Assessment Right Lower Extremity Flexor Tone Description Moderate Hypertonicity Extensor Tone Description Moderate Hypertonicity Left Lower Extremity Flexor Tone Description Moderate Hypertonicity Extensor Tone Description Moderate Hypertonicity PT-OP-J Posture/Palpation/Skin Start: 03/08/22 17:00 Freq: Status: Active Protocol: Document 04/22/24 15:21 DCW (Rec: 04/22/24 16:02 DCW [id number]) Posture Evaluation Comments Posture Comments Sitting EOB with good core control and no instability, uses UEs for support. Recovers from most directional pushing . Improved ability to reach outside of base of support. PT-OP-M Strength Start: 08/21/22 15:38 Freq: Status: Active Protocol: Document 04/22/24 15:21 DCW (Rec: 04/22/24 16:02 DCW [id number]) Shoulder Strength Shoulder Manual Muscle Testing Right Flexion 4 Good Extension 4+ Good+ Abduction (C5) 4 Good External Rotation 3+ Fair+ Internal Rotation 4 Good Left Flexion 4 Good Extension 4+ Good+ Abduction (C5) 4- Good- External Rotation 3+ Fair+ Internal Rotation 4 Good Elbow/Forearm Strength Elbow and Forearm Manual Muscle Testing Right Flexion (C6) 4+ Good+ Extension (C7) 4- Good- Left Flexion (C6) 4 Good Extension (C7) 3+ Fair+ Hand Working Second Hand/Pinch Strength Hand Dominance Hand Dominance Right Hand Strength Right Working Second Hand (lbs) 90 Left Working Second Hand (lbs) 80 Hip Strength Hip Manual Muscle Testing Right Flexion (L2) 1 Trace Extension (S1) 2- Poor- Adduction 2- Poor- Left Flexion (L2) 1 Trace Extension (S1) 2- Poor- Adduction 1 Trace Knee Strength Knee Manual Muscle Testing Right Flexion (S2) 2- Poor- Extension (L3) 1 Trace Left Flexion (S2) 2- Poor- Extension (L3) 1 Trace Ankle/Foot Strength Ankle and Foot Manual Muscle Testing Right Plantarflexion (S1) 2 Poor Left Plantarflexion (S1) 1 Trace PT-OP-Q Treatments Start: 03/08/22 17:00 Freq: Status: Active Protocol: Document 05/28/24 15:25 DCW (Rec: 05/28/24 16:17 [facility] [id number]) Cardio Equipment Recumbent Stepper (Sci-Fit) Duration (Minutes) 10 Resistance 4 Seat Position Seat removed for w/c Other Anti-tip extended to longest, 30# weights on front of w/c Gym Equipment Therapeutic Ball Abdominal Curl Exercise Details Press ball into abdomen in supine Ball Size/Color Blue - 45 cm Body Position Hooklying Therapeutic Exercises Other Exercises Thread the needle Other Exercise Name Thread the needle Side bilateral Comments Quadruped - Therapist assisted Long-kneeling Other Exercise Name Long kneeling /c self thigh support Comments cues for breath Push-ups Other Exercise Name Push-ups in quadruped Reps/Minutes x20 quadruped child's pose Other Exercise Name Child's pose Therapeutic Activity Therapeutic Activity supine>prone>quadruped Name SBA: into quadruped<> L SL, heavy pt BUE support PT-OP-T Assessment and Plan Start: 03/08/22 17:00 Freq: Status: Active Protocol: Document 05/28/24 15:25 DC (Rec: 05/28/24 16:17 [facility] [id number]) Physical Therapy Assessment Impairments Impairments Activity Tolerance,Balance, Coordination,Functional Activities,Functional Mobility ,Gait,Integument,Sensation, Soft Tissue Mobility,Strength, Tone,Transfers Goals Four Impairment Bilateral triceps weakness (R 4-, L 3+) Fci Goal (LTG) Pt to demonstrate improved triceps strength to at least 4 /5 bilaterally for elbow extension in order to improve transfer ability. LTG Duration 07/21/24 Three Impairment Pt does not have any motor function throughout bilateral LEs Short Term Goal (STG) Pt to demonstrate 1/5 trace motor contraction in at least one quad in order to begin focus on LE mobility if neural functional return begins. STG Duration Met [facility] Goal (LTG) Pt to demonstrate right quad strength to at least 2/5, demonstrating movement into ROM in an antigravity position LTG Duration 07/21/24 Two Impairment Pt struggles with lateral transfer/scooting along EOB Fci Goal (LTG) Pt to perform lateral scoot transfer using proper technique without any verbal cues 4x in a row. LTG Duration 07/21/24 One Impairment Pt does not have an appropriate home exercise program Short Term Goal (STG) Pt to be independent and compliant with an appropriate HEP STG Duration 07/21/24 Assessment Summary Assessment Pt continues to show great progress with getting up onto his hands and knees for exercise, increased push-up reps today, feels like his arms have been getting stronger. Physical Therapy Plan Frequency and Duration Frequency of Treatment 2x/Week Plan of Care Start Date 04/22/24 Plan of Care End Date 07/21/24 Therapeutic Interventions Therapeutic Interventions Aquatic Therapy,Balance Training,Coordination Training ,Gait Training,Home Exercise Program,Manual Therapy, Neuromuscular Re-education, Orthotic/Prosthetic Management ,Patient/Caregiver Education, Self-Care/Home Management, Sensory Integration,Soft Tissue Mobilization, Therapeutic Activities, Therapeutic Exercises, Wheelchair Management Next Visit Focus/Plan Next Note Type Treatment Note Next Visit Plan Continue PT per POC: Continue L log roll, L SL>quadruped, Lateral transfers to elevated surfaces more trunk flexion/ frequent scoots decreased assist, Wheelchair wheelies, curb management, POC: Continue UE and core strengthening, LE PROM and manual stretching. Transfers, mobility, LE ROM, pt will benefit from continued breakdown of transfers to improve efficiency and mechanics, as well as working on more seated balance EOB.
--- NOTE | 2024-06-01 16:10 | PT.OTN ---
Physical Therapy Treatment Note PT-OP-A Visit Information Start: 03/08/22 17:00 Freq: Status: Active Protocol: Document 06/01/24 13:22 NB (Rec: 06/09/24 01:57 [facility] [phone]-) Out-Patient Physical Therapy Visit Information Visit Information Visit Type Treatment Note Visit Start Time 13:22 Visit Stop Time 14:05 Visit Number [id number] Number of JITTERBUG OPERATOR Visits 1 Evaluation Information Evaluation Date 03/08/22 PT-OP-B Current Condition Start: 03/08/22 17:00 Freq: Status: Active Protocol: Document 03/17/24 11:29 SAK (Rec: 03/17/24 12:23 SAK [id number]) Current Condition History of Current Condition Onset Date 12/16/21 Current Complaints Paraplegia History of Current Condition Pt is a 71 year old male with a very unfortunate medical history. Pt was hiking [employer] on 12/16/21 with a friend, finished up, drive back to his friend's home to drop him off, and noticed his left leg was collapsing. By the time pt drove home, both legs were giving out and numb. Pt was suddenly paralized from the waist down, was taken to the ED, and was flown to [facility] on 12/17/21. The following day, he underwent a laminectomy to relieve pressure from the thoracic epidural hematoma which had developed following his hike, which was pressing on his spinal cord. Following surgery , pt was in recovery for a week and was then transfered to rehab for 20 days, when he was finally discharged home in a wheelchair on 01/19/22. Pt reports his surgeon informed him that it is a possibility that he gets some return of nerve function. Has experienced some changes in his right LE, but has no motor function at this time from ~ T10 down. Minimal sensory return on right side, none on left. Pt has been anxious to get in to therapy and do everything he can to help return to function. Pt's , who attended his evaluation, notes that she has been doing a lot of PROM in his legs at night to keep everything moving. Pt can feel some stretching during PROM in his right leg. Pt has additionally already started occupational therapy, and has been practicing some seated stabilization. Pt transfers with a slide board, but notes it is difficult to do into his car, because he has to transfer upward at an incline. PT-OP-C Subjective Start: 03/08/22 17:00 Freq: Status: Active Protocol: Document 06/01/24 13:22 [facility] (Rec: 06/09/24 01:57 [facility] [phone]-) OP-PT Subjective Patient Comments Patient Comments Pickaway reports PT-OP-G Mobility & Gait Start: 03/08/22 17:00 Freq: Status: Active Protocol: Document 04/22/24 15:21 DCW (Rec: 04/22/24 16:02 DCW [id number]) OP Mobility Evaluation Transfers Bed to Chair Transfers Transfers using UE, improved with side-side movement, requires minimal verbal cues for LE positioning Car Transfers uses slide board, stabilizes front to back and prevent slide down board Functional Movements Other Functional Movements Pt performs sit->supine->prone ->quadruped with SBA 80% of the time, requires Min Ax1 20% , typically with positioning of knees or feet, or getting up into quad from prone Wheelchair Management Type of Wheelchair Manual w/c Assessment Details Unable to perform tilt back to get over curb. PT-OP-H Neuro Start: 03/08/22 17:00 Freq: Status: Active Protocol: Document 04/22/24 15:21 DCW (Rec: 04/22/24 16:02 DCW [id number]) Sensation Evaluation Gross Sensation Gross Sensation Left LE Impaired,Right LE Impaired,Trunk Impaired Sensation Description Paresthesia,Numbness,Tingling, Pins & Henderson,Burning Dermatome Impairments L1,L2,L3,L4,L5,S1,S2,S3,S4-5 Location Details Right Leg Light Touch Impaired Sharp/Dull Impaired Deep Pressure Intact/Normal Hot/Cold Absent Protective Sensation Absent Proprioception (Position) Impaired Kinesthesia (Movement) Impaired Two-Point Discrimination Impaired Tactile Localization Impaired Stereognosis Impaired Left Leg Light Touch Absent Sharp/Dull Absent Deep Pressure Impaired Hot/Cold Impaired Protective Sensation Absent Proprioception (Position) Absent Kinesthesia (Movement) Impaired Two-Point Discrimination Absent Tactile Localization Absent Stereognosis Absent Comments Summary Comments B protective reflex vs sharp present Deep Tendon Reflex & Clonus Assessment Deep Tendon Reflex Right Achilles Deep Tendon Reflex 2+ Normal Right Patellar Deep Tendon Reflex 2+ Normal Left Achilles Deep Tendon Reflex 2+ Normal Left Patellar Deep Tendon Reflex 1+ Diminished Ankle Clonus Right Clonus Assessment Sustained Left Clonus Assessment Sustained Muscle Tone Tone Assessment Right Lower Extremity Flexor Tone Description Moderate Hypertonicity Extensor Tone Description Moderate Hypertonicity Left Lower Extremity Flexor Tone Description Moderate Hypertonicity Extensor Tone Description Moderate Hypertonicity PT-OP-J Posture/Palpation/Skin Start: 03/08/22 17:00 Freq: Status: Active Protocol: Document 04/22/24 15:21 DCW (Rec: 04/22/24 16:02 DCW [id number]) Posture Evaluation Comments Posture Comments Sitting EOB with good core control and no instability, uses UEs for support. Recovers from most directional pushing . Improved ability to reach outside of base of support. PT-OP-M Strength Start: 08/21/22 15:38 Freq: Status: Active Protocol: Document 04/22/24 15:21 DCW (Rec: 04/22/24 16:02 DCW [id number]) Shoulder Strength Shoulder Manual Muscle Testing Right Flexion 4 Good Extension 4+ Good+ Abduction (C5) 4 Good External Rotation 3+ Fair+ Internal Rotation 4 Good Left Flexion 4 Good Extension 4+ Good+ Abduction (C5) 4- Good- External Rotation 3+ Fair+ Internal Rotation 4 Good Elbow/Forearm Strength Elbow and Forearm Manual Muscle Testing Right Flexion (C6) 4+ Good+ Extension (C7) 4- Good- Left Flexion (C6) 4 Good Extension (C7) 3+ Fair+ Hand Net Development Manager/Pinch Strength Hand Dominance Hand Dominance Right Hand Strength Right Net Development Manager (lbs) 90 Left Net Development Manager (lbs) 80 Hip Strength Hip Manual Muscle Testing Right Flexion (L2) 1 Trace Extension (S1) 2- Poor- Adduction 2- Poor- Left Flexion (L2) 1 Trace Extension (S1) 2- Poor- Adduction 1 Trace Knee Strength Knee Manual Muscle Testing Right Flexion (S2) 2- Poor- Extension (L3) 1 Trace Left Flexion (S2) 2- Poor- Extension (L3) 1 Trace Ankle/Foot Strength Ankle and Foot Manual Muscle Testing Right Plantarflexion (S1) 2 Poor Left Plantarflexion (S1) 1 Trace PT-OP-Q Treatments Start: 03/08/22 17:00 Freq: Status: Active Protocol: Document 06/01/24 13:22 NB (Rec: 06/09/24 01:57 [facility] [phone]-) Therapeutic Exercises Supine Exercises serratus punch Side bilateral Resistance 1# DB ea Reps/Minutes x15-20 Comments initial cues for form Sidelying Exercises Open book Sidelying Exercise Name Open book Side bilateral Resistance 1# DB Equipment Used manual pelvic stabilization, manual ITB stretch on R Reps/Minutes x15 AROM, x1' hold Comments best stretch in the world Other Exercises short kneel Other Exercise Name short>tall kneeling /c self thigh support Equipment Used Derrek for tall kneel Thread the needle Other Exercise Name Thread the needle Side bilateral Equipment Used large wedge under trunk trialed Comments Quadruped - Therapist assisted Therapeutic Activity Therapeutic Activity Log roll, SL scoot Comments -L SL lateral scoot trunk, to get away from EOB to allow roll into supine. SBA to Log roll supine> L SL (on right side table) tall kneel Reps/Minutes hold 30 sec x2 Comments Derrek from quad to short kneel to tall kneeling, Min A for safety maintain tall kneel supine>prone>quadruped Name SBA: into quadruped<> L SL, heavy pt BUE support Comments L s/l > quadruped using forehead for support. -pt uses edge of mat table to pull into quadruped and needs occ cues for RLE positioning PT-OP-T Assessment and Plan Start: 03/08/22 17:00 Freq: Status: Active Protocol: Document 06/01/24 13:22 [facility] (Rec: 06/09/24 01:57 [facility] [phone]-) Physical Therapy Assessment Goals Four Impairment Bilateral triceps weakness (R 4-, L 3+) Tissue Packer Goal (LTG) Pt to demonstrate improved triceps strength to at least 4 /5 bilaterally for elbow extension in order to improve transfer ability. LTG Duration 07/21/24 Three Impairment Pt does not have any motor function throughout bilateral LEs Short Term Goal (STG) Pt to demonstrate 1/5 trace motor contraction in at least one quad in order to begin focus on LE mobility if neural functional return begins. STG Duration Met Assisted Goal (LTG) Pt to demonstrate right quad strength to at least 2/5, demonstrating movement into ROM in an antigravity position LTG Duration 07/21/24 Two Impairment Pt struggles with lateral transfer/scooting along EOB Assisted Goal (LTG) Pt to perform lateral scoot transfer using proper technique without any verbal cues 4x in a row. LTG Duration 07/21/24 One Impairment Pt does not have an appropriate home exercise program Short Term Goal (STG) Pt to be independent and compliant with an appropriate HEP STG Duration 07/21/24 Assessment Summary Assessment Treatment focus on transfers, thoracic mobility, core and UE strength. Toby is able to transition from w/c to L sidelying into quadruped close SBA and cues for RLE positioning today. Wedge under trunk trialed to increase hold time for thoracic rotation stretch (Thread the needle) in prone but unsuccesful due to unilateral upper extremity strength lacking to sustain hold on hand. Open book stretch w/ 1# dumbbells are met with very positive feedback response, best stretch in the world. Physical Therapy Plan Frequency and Duration Frequency of Treatment 2x/Week Plan of Care Start Date 04/22/24 Plan of Care End Date 07/21/24 Therapeutic Interventions Therapeutic Interventions Aquatic Therapy,Balance Training,Coordination Training ,Gait Training,Home Exercise Program,Manual Therapy, Neuromuscular Re-education, Orthotic/Prosthetic Management ,Patient/Caregiver Education, Self-Care/Home Management, Sensory Integration,Soft Tissue Mobilization, Therapeutic Activities, Therapeutic Exercises, Wheelchair Management Next Visit Focus/Plan Next Note Type Treatment Note Next Visit Plan Continue PT per POC: Continue L log roll, L SL>quadruped, Lateral transfers to elevated surfaces more trunk flexion/ frequent scoots decreased assist, Wheelchair wheelies, curb management, POC: Continue UE and core strengthening, LE PROM and manual stretching. Transfers, mobility, LE ROM, pt will benefit from continued breakdown of transfers to improve efficiency and mechanics, as well as working on more seated balance EOB.
--- NOTE | 2024-06-04 16:15 | PT.OTN ---
Physical Therapy Treatment Note PT-OP-A Visit Information Start: 03/08/22 17:00 Freq: Status: Active Protocol: Document 06/04/24 15:22 NB (Rec: 06/09/24 02:30 [facility] [phone]-) Out-Patient Physical Therapy Visit Information Visit Information Visit Type Treatment Note Visit Start Time 15:22 Visit Stop Time 16:05 Visit Number [id number] Number of ALIGNMENT SPECIALIST Visits 2 Evaluation Information Evaluation Date 03/08/22 PT-OP-B Current Condition Start: 03/08/22 17:00 Freq: Status: Active Protocol: Document 03/17/24 11:29 SAK (Rec: 03/17/24 12:23 SAK [id number]) Current Condition History of Current Condition Onset Date 12/16/21 Current Complaints Paraplegia History of Current Condition Pt is a 71 year old male with a very unfortunate medical history. Pt was hiking [employer] on 12/16/21 with a friend, finished up, drive back to his friend's home to drop him off, and noticed his left leg was collapsing. By the time pt drove home, both legs were giving out and numb. Pt was suddenly paralized from the waist down, was taken to the ED, and was flown to [facility] on 12/17/21. The following day, he underwent a laminectomy to relieve pressure from the thoracic epidural hematoma which had developed following his hike, which was pressing on his spinal cord. Following surgery , pt was in recovery for a week and was then transfered to rehab for 20 days, when he was finally discharged home in a wheelchair on 01/19/22. Pt reports his surgeon informed him that it is a possibility that he gets some return of nerve function. Has experienced some changes in his right LE, but has no motor function at this time from ~ T10 down. Minimal sensory return on right side, none on left. Pt has been anxious to get in to therapy and do everything he can to help return to function. Pt's , who attended his evaluation, notes that she has been doing a lot of PROM in his legs at night to keep everything moving. Pt can feel some stretching during PROM in his right leg. Pt has additionally already started occupational therapy, and has been practicing some seated stabilization. Pt transfers with a slide board, but notes it is difficult to do into his car, because he has to transfer upward at an incline. PT-OP-C Subjective Start: 03/08/22 17:00 Freq: Status: Active Protocol: Document 06/04/24 15:22 [facility] (Rec: 06/09/24 02:30 [facility] [phone]-) OP-PT Subjective Patient Comments Patient Comments Toby reports no new changes. He always feels better after PT. PT-OP-G Mobility & Gait Start: 03/08/22 17:00 Freq: Status: Active Protocol: Document 04/22/24 15:21 DCW (Rec: 04/22/24 16:02 DCW [id number]) OP Mobility Evaluation Transfers Bed to Chair Transfers Transfers using UE, improved with side-side movement, requires minimal verbal cues for LE positioning Car Transfers uses slide board, stabilizes front to back and prevent slide down board Functional Movements Other Functional Movements Pt performs sit->supine->prone ->quadruped with SBA 80% of the time, requires Min Ax1 20% , typically with positioning of knees or feet, or getting up into quad from prone Wheelchair Management Type of Wheelchair Manual w/c Assessment Details Unable to perform tilt back to get over curb. PT-OP-H Neuro Start: 03/08/22 17:00 Freq: Status: Active Protocol: Document 04/22/24 15:21 DCW (Rec: 04/22/24 16:02 DCW [id number]) Sensation Evaluation Gross Sensation Gross Sensation Left LE Impaired,Right LE Impaired,Trunk Impaired Sensation Description Paresthesia,Numbness,Tingling, Pins & [place],Burning Dermatome Impairments L1,L2,L3,L4,L5,S1,S2,S3,S4-5 Location Details Right Leg Light Touch Impaired Sharp/Dull Impaired Deep Pressure Intact/Normal Hot/Cold Absent Protective Sensation Absent Proprioception (Position) Impaired Kinesthesia (Movement) Impaired Two-Point Discrimination Impaired Tactile Localization Impaired Stereognosis Impaired Left Leg Light Touch Absent Sharp/Dull Absent Deep Pressure Impaired Hot/Cold Impaired Protective Sensation Absent Proprioception (Position) Absent Kinesthesia (Movement) Impaired Two-Point Discrimination Absent Tactile Localization Absent Stereognosis Absent Comments Summary Comments B protective reflex vs sharp present Deep Tendon Reflex & Clonus Assessment Deep Tendon Reflex Right Achilles Deep Tendon Reflex 2+ Normal Right Patellar Deep Tendon Reflex 2+ Normal Left Achilles Deep Tendon Reflex 2+ Normal Left Patellar Deep Tendon Reflex 1+ Diminished Ankle Clonus Right Clonus Assessment Sustained Left Clonus Assessment Sustained Muscle Tone Tone Assessment Right Lower Extremity Flexor Tone Description Moderate Hypertonicity Extensor Tone Description Moderate Hypertonicity Left Lower Extremity Flexor Tone Description Moderate Hypertonicity Extensor Tone Description Moderate Hypertonicity PT-OP-J Posture/Palpation/Skin Start: 03/08/22 17:00 Freq: Status: Active Protocol: Document 04/22/24 15:21 DCW (Rec: 04/22/24 16:02 DCW [id number]) Posture Evaluation Comments Posture Comments Sitting EOB with good core control and no instability, uses UEs for support. Recovers from most directional pushing . Improved ability to reach outside of base of support. PT-OP-M Strength Start: 08/21/22 15:38 Freq: Status: Active Protocol: Document 04/22/24 15:21 DCW (Rec: 04/22/24 16:02 DCW [id number]) Shoulder Strength Shoulder Manual Muscle Testing Right Flexion 4 Good Extension 4+ Good+ Abduction (C5) 4 Good External Rotation 3+ Fair+ Internal Rotation 4 Good Left Flexion 4 Good Extension 4+ Good+ Abduction (C5) 4- Good- External Rotation 3+ Fair+ Internal Rotation 4 Good Elbow/Forearm Strength Elbow and Forearm Manual Muscle Testing Right Flexion (C6) 4+ Good+ Extension (C7) 4- Good- Left Flexion (C6) 4 Good Extension (C7) 3+ Fair+ Hand General Internist/Pinch Strength Hand Dominance Hand Dominance Right Hand Strength Right General Internist (lbs) 90 Left General Internist (lbs) 80 Hip Strength Hip Manual Muscle Testing Right Flexion (L2) 1 Trace Extension (S1) 2- Poor- Adduction 2- Poor- Left Flexion (L2) 1 Trace Extension (S1) 2- Poor- Adduction 1 Trace Knee Strength Knee Manual Muscle Testing Right Flexion (S2) 2- Poor- Extension (L3) 1 Trace Left Flexion (S2) 2- Poor- Extension (L3) 1 Trace Ankle/Foot Strength Ankle and Foot Manual Muscle Testing Right Plantarflexion (S1) 2 Poor Left Plantarflexion (S1) 1 Trace PT-OP-Q Treatments Start: 03/08/22 17:00 Freq: Status: Active Protocol: Document 06/04/24 15:22 NB (Rec: 06/09/24 02:30 [facility] [phone]-) Therapeutic Exercises Sidelying Exercises Open book Sidelying Exercise Name Open book Side bilateral Resistance 1# DB Equipment Used manual pelvic stabilization, manual ITB stretch on R Reps/Minutes x15 AROM, x1' hold Comments positive feedback response Sitting Exercises TS rotation Sitting Exercise Name segmental and non-seg c-sp rotation Side bilateral Equipment Used 3.3 lb ball Reps/Minutes x10 ea Other Exercises short kneel Other Exercise Name short kneeling /c self thigh support Comments ALIGNMENT SPECIALIST adjusts foot and knee positioning to increase KIARA Thread the needle Other Exercise Name Thread the needle on forearms Side bilateral quadruped child's pose Other Exercise Name Child's pose quadruped Other Exercise Name push up plus Resistance CGA Comments pt self heavy support BUEs Therapeutic Activity Therapeutic Activity Log roll, SL scoot Comments -B SL lateral scoot trunk, to get away from EOB to allow roll into supine. SBA to Log roll supine> L SL (on right side table) squat/lateral scoot transfer Name lateral scoot Reps/Minutes 5' Comments w/c<> sitting EOB mat table. Lateral scoot Jonathan, cues for L fist for transfer to R. supine>prone>quadruped Name SBA: into quadruped<> L SL, heavy pt BUE support Reps/Minutes x2 Comments L s/l > quadruped attempted without using forehead for support - pt requires maxA. With forehead support pt SBA> CGA. -pt uses edge of mat table to pull trunk into quadruped. Regular cueing needed today for RLE positioning due to hooking onto LLE. Neuro Re-Education Treatment Balance Activities quadruped Equipment mat table, GB, Comments -a/p and m/l weightshifting PT-OP-T Assessment and Plan Start: 03/08/22 17:00 Freq: Status: Active Protocol: Document 06/04/24 15:22 [facility] (Rec: 06/09/24 02:30 [facility] [id number]-) Physical Therapy Assessment Goals Four Impairment Bilateral triceps weakness (R 4-, L 3+) Nursing Home Goal (LTG) Pt to demonstrate improved triceps strength to at least 4 /5 bilaterally for elbow extension in order to improve transfer ability. LTG Duration 07/21/24 Three Impairment Pt does not have any motor function throughout bilateral LEs Short Term Goal (STG) Pt to demonstrate 1/5 trace motor contraction in at least one quad in order to begin focus on LE mobility if neural functional return begins. STG Duration Met Corner Cutter Machine Operator Goal (LTG) Pt to demonstrate right quad strength to at least 2/5, demonstrating movement into ROM in an antigravity position LTG Duration 07/21/24 Two Impairment Pt struggles with lateral transfer/scooting along EOB Nursing Home Goal (LTG) Pt to perform lateral scoot transfer using proper technique without any verbal cues 4x in a row. LTG Duration 07/21/24 One Impairment Pt does not have an appropriate home exercise program Short Term Goal (STG) Pt to be independent and compliant with an appropriate HEP STG Duration 07/21/24 Assessment Summary Assessment Toby is able to perform thread the needle thoracic rotation stretch with longer hold on forearms. He is unable to perform L sidelying transition to quadruped SBA without use of forehead support. Physical Therapy Plan Frequency and Duration Frequency of Treatment 2x/Week Plan of Care Start Date 04/22/24 Plan of Care End Date 07/21/24 Therapeutic Interventions Therapeutic Interventions Aquatic Therapy,Balance Training,Coordination Training ,Gait Training,Home Exercise Program,Manual Therapy, Neuromuscular Re-education, Orthotic/Prosthetic Management ,Patient/Caregiver Education, Self-Care/Home Management, Sensory Integration,Soft Tissue Mobilization, Therapeutic Activities, Therapeutic Exercises, Wheelchair Management Next Visit Focus/Plan Next Note Type Treatment Note Next Visit Plan Continue PT per POC: Continue L log roll, L SL>quadruped, Lateral transfers to elevated surfaces more trunk flexion/ frequent scoots decreased assist, Wheelchair wheelies, curb management, POC: Continue UE and core strengthening, LE PROM and manual stretching. Transfers, mobility, LE ROM, pt will benefit from continued breakdown of transfers to improve efficiency and mechanics, as well as working on more seated balance EOB.
--- NOTE | 2024-06-08 16:37 | PT.OTN ---
Current Diagnoses Paraplegia, unspecified (06/08/24) Other specified personal risk factors, not elsewhere classified (06/08/24) Other specified postprocedural states (06/08/24) Physical Therapy Treatment Note PT-OP-A Visit Information Start: 03/08/22 17:00 Freq: Status: Active Protocol: Document 06/08/24 15:27 NBM (Rec: 06/08/24 16:37 NBM [id number]) Out-Patient Physical Therapy Visit Information Visit Information Visit Type Treatment Note Visit Start Time 15:23 Visit Stop Time 16:10 Visit Number [id number] Number of LEAD SALES CONSULTANT Visits 1 Evaluation Information Evaluation Date 03/08/22 PT-OP-B Current Condition Start: 03/08/22 17:00 Freq: Status: Active Protocol: Document 03/17/24 11:29 SAK (Rec: 03/17/24 12:23 SAK [id number]) Current Condition History of Current Condition Onset Date 12/16/21 Current Complaints Paraplegia History of Current Condition Pt is a 71 year old male with a very unfortunate medical history. Pt was hiking [place] on 12/16/21 with a friend, finished up, drive back to his friend's home to drop him off, and noticed his left leg was collapsing. By the time pt drove home, both legs were giving out and numb. Pt was suddenly paralized from the waist down, was taken to the ED, and was flown to [facility] on 12/17/21. The following day, he underwent a laminectomy to relieve pressure from the thoracic epidural hematoma which had developed following his hike, which was pressing on his spinal cord. Following surgery , pt was in recovery for a week and was then transfered to rehab for 20 days, when he was finally discharged home in a wheelchair on 01/19/22. Pt reports his surgeon informed him that it is a possibility that he gets some return of nerve function. Has experienced some changes in his right LE, but has no motor function at this time from ~ T10 down. Minimal sensory return on right side, none on left. Pt has been anxious to get in to therapy and do everything he can to help return to function. Pt's , who attended his evaluation, notes that she has been doing a lot of PROM in his legs at night to keep everything moving. Pt can feel some stretching during PROM in his right leg. Pt has additionally already started occupational therapy, and has been practicing some seated stabilization. Pt transfers with a slide board, but notes it is difficult to do into his car, because he has to transfer upward at an incline. PT-OP-C Subjective Start: 03/08/22 17:00 Freq: Status: Active Protocol: Document 06/08/24 15:27 NBM (Rec: 06/08/24 16:37 NBM [id number]) OP-PT Subjective Patient Comments Patient Comments Toby reports R leg continues to spasm more with any changes like elevation or touch. PT-OP-G Mobility & Gait Start: 03/08/22 17:00 Freq: Status: Active Protocol: Document 04/22/24 15:21 DCW (Rec: 04/22/24 16:02 DCW [id number]) OP Mobility Evaluation Transfers Bed to Chair Transfers Transfers using UE, improved with side-side movement, requires minimal verbal cues for LE positioning Car Transfers uses slide board, stabilizes front to back and prevent slide down board Functional Movements Other Functional Movements Pt performs sit->supine->prone ->quadruped with SBA 80% of the time, requires Min Ax1 20% , typically with positioning of knees or feet, or getting up into quad from prone Wheelchair Management Type of Wheelchair Manual w/c Assessment Details Unable to perform tilt back to get over curb. PT-OP-H Neuro Start: 03/08/22 17:00 Freq: Status: Active Protocol: Document 04/22/24 15:21 DCW (Rec: 04/22/24 16:02 DCW [id number]) Sensation Evaluation Gross Sensation Gross Sensation Left LE Impaired,Right LE Impaired,Trunk Impaired Sensation Description Paresthesia,Numbness,Tingling, Pins & [place],Burning Dermatome Impairments L1,L2,L3,L4,L5,S1,S2,S3,S4-5 Location Details Right Leg Light Touch Impaired Sharp/Dull Impaired Deep Pressure Intact/Normal Hot/Cold Absent Protective Sensation Absent Proprioception (Position) Impaired Kinesthesia (Movement) Impaired Two-Point Discrimination Impaired Tactile Localization Impaired Stereognosis Impaired Left Leg Light Touch Absent Sharp/Dull Absent Deep Pressure Impaired Hot/Cold Impaired Protective Sensation Absent Proprioception (Position) Absent Kinesthesia (Movement) Impaired Two-Point Discrimination Absent Tactile Localization Absent Stereognosis Absent Comments Summary Comments B protective reflex vs sharp present Deep Tendon Reflex & Clonus Assessment Deep Tendon Reflex Right Achilles Deep Tendon Reflex 2+ Normal Right Patellar Deep Tendon Reflex 2+ Normal Left Achilles Deep Tendon Reflex 2+ Normal Left Patellar Deep Tendon Reflex 1+ Diminished Ankle Clonus Right Clonus Assessment Sustained Left Clonus Assessment Sustained Muscle Tone Tone Assessment Right Lower Extremity Flexor Tone Description Moderate Hypertonicity Extensor Tone Description Moderate Hypertonicity Left Lower Extremity Flexor Tone Description Moderate Hypertonicity Extensor Tone Description Moderate Hypertonicity PT-OP-J Posture/Palpation/Skin Start: 03/08/22 17:00 Freq: Status: Active Protocol: Document 04/22/24 15:21 DCW (Rec: 04/22/24 16:02 DCW [id number]) Posture Evaluation Comments Posture Comments Sitting EOB with good core control and no instability, uses UEs for support. Recovers from most directional pushing . Improved ability to reach outside of base of support. PT-OP-M Strength Start: 08/21/22 15:38 Freq: Status: Active Protocol: Document 04/22/24 15:21 DCW (Rec: 04/22/24 16:02 DCW [id number]) Shoulder Strength Shoulder Manual Muscle Testing Right Flexion 4 Good Extension 4+ Good+ Abduction (C5) 4 Good External Rotation 3+ Fair+ Internal Rotation 4 Good Left Flexion 4 Good Extension 4+ Good+ Abduction (C5) 4- Good- External Rotation 3+ Fair+ Internal Rotation 4 Good Elbow/Forearm Strength Elbow and Forearm Manual Muscle Testing Right Flexion (C6) 4+ Good+ Extension (C7) 4- Good- Left Flexion (C6) 4 Good Extension (C7) 3+ Fair+ Hand Property Portfolio Officer/Pinch Strength Hand Dominance Hand Dominance Right Hand Strength Right Property Portfolio Officer (lbs) 90 Left Property Portfolio Officer (lbs) 80 Hip Strength Hip Manual Muscle Testing Right Flexion (L2) 1 Trace Extension (S1) 2- Poor- Adduction 2- Poor- Left Flexion (L2) 1 Trace Extension (S1) 2- Poor- Adduction 1 Trace Knee Strength Knee Manual Muscle Testing Right Flexion (S2) 2- Poor- Extension (L3) 1 Trace Left Flexion (S2) 2- Poor- Extension (L3) 1 Trace Ankle/Foot Strength Ankle and Foot Manual Muscle Testing Right Plantarflexion (S1) 2 Poor Left Plantarflexion (S1) 1 Trace PT-OP-Q Treatments Start: 03/08/22 17:00 Freq: Status: Active Protocol: Document 06/08/24 15:27 [facility] (Rec: 06/08/24 16:37 [facility] [id number]) Gym Equipment Cable Column (Body Solid) cable row Resistance 30# Reps/Time x8 w/ modA at shoulders to prevent trunk flexion Therapeutic Exercises Prone Exercises prone over 4 pillows Prone Exercise Name supported trunk extension, hip flexor stretch Equipment Used over 4 pillows, towel roll under forehead Reps/Minutes 5 min Comments positive feedback response Sidelying Exercises Open book Sidelying Exercise Name Open book Side bilateral Resistance 1# DB Equipment Used manual pelvic stabilization, manual ITB stretch on R Reps/Minutes x15 AROM, x1' hold Comments positive feedback response Sitting Exercises TS rotation Sitting Exercise Name arms extended: segmental and non-seg c-sp rotation Side bilateral Equipment Used 3.3 lb ball Reps/Minutes x10 ea Other Exercises short kneel Other Exercise Name short kneeling /c self thigh support Thread the needle Other Exercise Name Thread the needle Side bilateral Comments Quadruped - Therapist assisted Push-ups Other Exercise Name Push-up Plus in quadruped Reps/Minutes x15, x10 quadruped child's pose Other Exercise Name Child's pose quadruped Other Exercise Name push up plus Resistance CGA Reps/Minutes x15, x10 Comments pt self heavy support BUEs Therapeutic Activity Therapeutic Activity Log roll, SL scoot Comments -B SL lateral scoot trunk, to get away from EOB to allow roll into supine. SBA to Log roll supine> L SL (on right side table) supine>prone>quadruped Name SBA: into quadruped<> L SL, heavy pt BUE support Reps/Minutes x2 Comments L s/l > quadruped using forehead for support. ->quadruped pt uses edge of mat table to push up x1, when unable to reach uses LEAD SALES CONSULTANT hand x1. PT-OP-T Assessment and Plan Start: 03/08/22 17:00 Freq: Status: Active Protocol: Document 06/08/24 15:27 [facility] (Rec: 06/08/24 16:37 [facility] [id number]) Physical Therapy Assessment Goals Four Impairment Bilateral triceps weakness (R 4-, L 3+) Senior Care Goal (LTG) Pt to demonstrate improved triceps strength to at least 4 /5 bilaterally for elbow extension in order to improve transfer ability. LTG Duration 07/21/24 Three Impairment Pt does not have any motor function throughout bilateral LEs Short Term Goal (STG) Pt to demonstrate 1/5 trace motor contraction in at least one quad in order to begin focus on LE mobility if neural functional return begins. STG Duration Met Junior Legal Secretary Goal (LTG) Pt to demonstrate right quad strength to at least 2/5, demonstrating movement into ROM in an antigravity position LTG Duration 07/21/24 Two Impairment Pt struggles with lateral transfer/scooting along EOB Junior Legal Secretary Goal (LTG) Pt to perform lateral scoot transfer using proper technique without any verbal cues 4x in a row. LTG Duration 07/21/24 One Impairment Pt does not have an appropriate home exercise program Short Term Goal (STG) Pt to be independent and compliant with an appropriate HEP STG Duration 07/21/24 Assessment Summary Assessment Treatment focus on transfers, UE and core strengthening, and mobility. [place] demos more ease today with transitions from w/c to L sidelying and into quadruped. He tolerates prone on 4 pillows with positive feedback response for all stretches today and needs no cueing for push up plus exercise. With transition from L sidelying to quadruped he does rely on grabbing edge of mat table with RUE and requires assist when unable to reach edge of mat. Physical Therapy Plan Frequency and Duration Frequency of Treatment 2x/Week Plan of Care Start Date 04/22/24 Plan of Care End Date 07/21/24 Therapeutic Interventions Therapeutic Interventions Aquatic Therapy,Balance Training,Coordination Training ,Gait Training,Home Exercise Program,Manual Therapy, Neuromuscular Re-education, Orthotic/Prosthetic Management ,Patient/Caregiver Education, Self-Care/Home Management, Sensory Integration,Soft Tissue Mobilization, Therapeutic Activities, Therapeutic Exercises, Wheelchair Management Next Visit Focus/Plan Next Note Type Treatment Note Next Visit Plan Continue PT per POC: Continue L log roll, L SL>quadruped, Lateral transfers to elevated surfaces more trunk flexion/ frequent scoots decreased assist, Wheelchair wheelies, curb management, POC: Continue UE and core strengthening, LE PROM and manual stretching. Transfers, mobility, LE ROM, pt will benefit from continued breakdown of transfers to improve efficiency and mechanics, as well as working on more seated balance EOB.
--- NOTE | 2024-06-11 16:05 | PT.OTN ---
Current Diagnoses Paraplegia, unspecified (06/08/24) Other specified personal risk factors, not elsewhere classified (06/08/24) Other specified postprocedural states (06/08/24) Physical Therapy Treatment Note PT-OP-A Visit Information Start: 03/08/22 17:00 Freq: Status: Active Protocol: Document 06/11/24 15:20 DCW (Rec: 06/11/24 16:05 DCW [id number]) Out-Patient Physical Therapy Visit Information Visit Information Visit Type Treatment Note Visit Start Time 15:20 Visit Stop Time 16:00 Visit Number [id number] Number of GREETING CARD WRITER Visits 0 Evaluation Information Evaluation Date 03/08/22 PT-OP-B Current Condition Start: 03/08/22 17:00 Freq: Status: Active Protocol: Document 03/17/24 11:29 SAK (Rec: 03/17/24 12:23 SAK [id number]) Current Condition History of Current Condition Onset Date 12/16/21 Current Complaints Paraplegia History of Current Condition Pt is a 71 year old male with a very unfortunate medical history. Pt was hiking [place] on 12/16/21 with a friend, finished up, drive back to his friend's home to drop him off, and noticed his left leg was collapsing. By the time pt drove home, both legs were giving out and numb. Pt was suddenly paralized from the waist down, was taken to the ED, and was flown to [facility] on 12/17/21. The following day, he underwent a laminectomy to relieve pressure from the thoracic epidural hematoma which had developed following his hike, which was pressing on his spinal cord. Following surgery , pt was in recovery for a week and was then transfered to rehab for 20 days, when he was finally discharged home in a wheelchair on 01/19/22. Pt reports his surgeon informed him that it is a possibility that he gets some return of nerve function. Has experienced some changes in his right LE, but has no motor function at this time from ~ T10 down. Minimal sensory return on right side, none on left. Pt has been anxious to get in to therapy and do everything he can to help return to function. Pt's , who attended his evaluation, notes that she has been doing a lot of PROM in his legs at night to keep everything moving. Pt can feel some stretching during PROM in his right leg. Pt has additionally already started occupational therapy, and has been practicing some seated stabilization. Pt transfers with a slide board, but notes it is difficult to do into his car, because he has to transfer upward at an incline. PT-OP-C Subjective Start: 03/08/22 17:00 Freq: Status: Active Protocol: Document 06/11/24 15:20 DCW (Rec: 06/11/24 16:05 DCW [id number]) OP-PT Subjective Patient Comments Patient Comments Pt admits he has had a very stressful week at work. PT-OP-G Mobility & Gait Start: 03/08/22 17:00 Freq: Status: Active Protocol: Document 04/22/24 15:21 DCW (Rec: 04/22/24 16:02 DCW [id number]) OP Mobility Evaluation Transfers Bed to Chair Transfers Transfers using UE, improved with side-side movement, requires minimal verbal cues for LE positioning Car Transfers uses slide board, stabilizes front to back and prevent slide down board Functional Movements Other Functional Movements Pt performs sit->supine->prone ->quadruped with SBA 80% of the time, requires Min Ax1 20% , typically with positioning of knees or feet, or getting up into quad from prone Wheelchair Management Type of Wheelchair Manual w/c Assessment Details Unable to perform tilt back to get over curb. PT-OP-H Neuro Start: 03/08/22 17:00 Freq: Status: Active Protocol: Document 04/22/24 15:21 DCW (Rec: 04/22/24 16:02 DCW [id number]) Sensation Evaluation Gross Sensation Gross Sensation Left LE Impaired,Right LE Impaired,Trunk Impaired Sensation Description Paresthesia,Numbness,Tingling, Pins & [place],Burning Dermatome Impairments L1,L2,L3,L4,L5,S1,S2,S3,S4-5 Location Details Right Leg Light Touch Impaired Sharp/Dull Impaired Deep Pressure Intact/Normal Hot/Cold Absent Protective Sensation Absent Proprioception (Position) Impaired Kinesthesia (Movement) Impaired Two-Point Discrimination Impaired Tactile Localization Impaired Stereognosis Impaired Left Leg Light Touch Absent Sharp/Dull Absent Deep Pressure Impaired Hot/Cold Impaired Protective Sensation Absent Proprioception (Position) Absent Kinesthesia (Movement) Impaired Two-Point Discrimination Absent Tactile Localization Absent Stereognosis Absent Comments Summary Comments B protective reflex vs sharp present Deep Tendon Reflex & Clonus Assessment Deep Tendon Reflex Right Achilles Deep Tendon Reflex 2+ Normal Right Patellar Deep Tendon Reflex 2+ Normal Left Achilles Deep Tendon Reflex 2+ Normal Left Patellar Deep Tendon Reflex 1+ Diminished Ankle Clonus Right Clonus Assessment Sustained Left Clonus Assessment Sustained Muscle Tone Tone Assessment Right Lower Extremity Flexor Tone Description Moderate Hypertonicity Extensor Tone Description Moderate Hypertonicity Left Lower Extremity Flexor Tone Description Moderate Hypertonicity Extensor Tone Description Moderate Hypertonicity PT-OP-J Posture/Palpation/Skin Start: 03/08/22 17:00 Freq: Status: Active Protocol: Document 04/22/24 15:21 DCW (Rec: 04/22/24 16:02 DCW [id number]) Posture Evaluation Comments Posture Comments Sitting EOB with good core control and no instability, uses UEs for support. Recovers from most directional pushing . Improved ability to reach outside of base of support. PT-OP-M Strength Start: 08/21/22 15:38 Freq: Status: Active Protocol: Document 04/22/24 15:21 DCW (Rec: 04/22/24 16:02 DCW [id number]) Shoulder Strength Shoulder Manual Muscle Testing Right Flexion 4 Good Extension 4+ Good+ Abduction (C5) 4 Good External Rotation 3+ Fair+ Internal Rotation 4 Good Left Flexion 4 Good Extension 4+ Good+ Abduction (C5) 4- Good- External Rotation 3+ Fair+ Internal Rotation 4 Good Elbow/Forearm Strength Elbow and Forearm Manual Muscle Testing Right Flexion (C6) 4+ Good+ Extension (C7) 4- Good- Left Flexion (C6) 4 Good Extension (C7) 3+ Fair+ Hand Assistant Professor Of Music/Pinch Strength Hand Dominance Hand Dominance Right Hand Strength Right Assistant Professor Of Music (lbs) 90 Left Assistant Professor Of Music (lbs) 80 Hip Strength Hip Manual Muscle Testing Right Flexion (L2) 1 Trace Extension (S1) 2- Poor- Adduction 2- Poor- Left Flexion (L2) 1 Trace Extension (S1) 2- Poor- Adduction 1 Trace Knee Strength Knee Manual Muscle Testing Right Flexion (S2) 2- Poor- Extension (L3) 1 Trace Left Flexion (S2) 2- Poor- Extension (L3) 1 Trace Ankle/Foot Strength Ankle and Foot Manual Muscle Testing Right Plantarflexion (S1) 2 Poor Left Plantarflexion (S1) 1 Trace PT-OP-Q Treatments Start: 03/08/22 17:00 Freq: Status: Active Protocol: Document 06/11/24 15:20 DCW (Rec: 06/11/24 16:05 [facility] [id number]) Gym Equipment Shuttle Recovery Bilateral Squats Details with BUE assist on thighs, strap above knees for LE alignment Resistance 12#>25# assisted ascending, BLE only descending Shuttle Recovery Platform Stable Reps/Time eccentric lowering w/ breath, concentric w/ heel push; proximation RLE Therapeutic Ball Abdominal Curl Exercise Details Press ball into abdomen in supine Ball Size/Color Blue - 45 cm Body Position Hooklying Therapeutic Exercises Other Exercises short kneel Other Exercise Name short kneeling /c self thigh support Thread the needle Other Exercise Name Thread the needle on forearms Side bilateral Comments Quadruped - Therapist assisted Push-ups Other Exercise Name Push-up Plus in quadruped Reps/Minutes x15, x10 quadruped Other Exercise Name push up plus Resistance CGA Reps/Minutes x15, x10 Comments pt self heavy support BUEs Therapeutic Activity Therapeutic Activity Log roll, SL scoot Comments -B SL lateral scoot trunk, to get away from EOB to allow roll into supine. SBA to Log roll supine> L SL (on right side table) PT-OP-T Assessment and Plan Start: 03/08/22 17:00 Freq: Status: Active Protocol: Document 06/11/24 15:20 DCW (Rec: 06/11/24 16:05 [facility] [id number]) Physical Therapy Assessment Impairments Impairments Activity Tolerance,Balance, Coordination,Functional Activities,Functional Mobility ,Gait,Integument,Sensation, Soft Tissue Mobility,Strength, Tone,Transfers Goals Four Impairment Bilateral triceps weakness (R 4-, L 3+) Intermediate Goal (LTG) Pt to demonstrate improved triceps strength to at least 4 /5 bilaterally for elbow extension in order to improve transfer ability. LTG Duration 07/21/24 Three Impairment Pt does not have any motor function throughout bilateral LEs Short Term Goal (STG) Pt to demonstrate 1/5 trace motor contraction in at least one quad in order to begin focus on LE mobility if neural functional return begins. STG Duration Met Intermediate Goal (LTG) Pt to demonstrate right quad strength to at least 2/5, demonstrating movement into ROM in an antigravity position LTG Duration 07/21/24 Two Impairment Pt struggles with lateral transfer/scooting along EOB Intermediate Goal (LTG) Pt to perform lateral scoot transfer using proper technique without any verbal cues 4x in a row. LTG Duration 07/21/24 One Impairment Pt does not have an appropriate home exercise program Short Term Goal (STG) Pt to be independent and compliant with an appropriate HEP STG Duration 07/21/24 Assessment Summary Assessment Pt showing improvement with transfer ability, improving triceps strength with lift/ shift and push-ups. Physical Therapy Plan Frequency and Duration Frequency of Treatment 2x/Week Plan of Care Start Date 04/22/24 Plan of Care End Date 07/21/24 Therapeutic Interventions Therapeutic Interventions Aquatic Therapy,Balance Training,Coordination Training ,Gait Training,Home Exercise Program,Manual Therapy, Neuromuscular Re-education, Orthotic/Prosthetic Management ,Patient/Caregiver Education, Self-Care/Home Management, Sensory Integration,Soft Tissue Mobilization, Therapeutic Activities, Therapeutic Exercises, Wheelchair Management Next Visit Focus/Plan Next Note Type Treatment Note Next Visit Plan Continue PT per POC: Continue L log roll, L SL>quadruped, Lateral transfers to elevated surfaces more trunk flexion/ frequent scoots decreased assist, Wheelchair wheelies, curb management, POC: Continue UE and core strengthening, LE PROM and manual stretching. Transfers, mobility, LE ROM, pt will benefit from continued breakdown of transfers to improve efficiency and mechanics, as well as working on more seated balance EOB.
--- NOTE | 2024-06-16 16:33 | PT.OTN ---
Current Diagnoses Paraplegia, unspecified (06/16/24) Other specified personal risk factors, not elsewhere classified (06/16/24) Other specified postprocedural states (06/16/24) Physical Therapy Treatment Note PT-OP-A Visit Information Start: 03/08/22 17:00 Freq: Status: Active Protocol: Document 06/16/24 15:21 NBM (Rec: 06/16/24 16:32 NBM [id number]) Out-Patient Physical Therapy Visit Information Visit Information Visit Type Treatment Note Visit Start Time 15:21 Visit Stop Time 16:04 Visit Number [id number] Number of SERVICE ESTABLISHMENT ATTENDANT Visits 1 Evaluation Information Evaluation Date 03/08/22 PT-OP-B Current Condition Start: 03/08/22 17:00 Freq: Status: Active Protocol: Document 03/17/24 11:29 SAK (Rec: 03/17/24 12:23 SAK [id number]) Current Condition History of Current Condition Onset Date 12/16/21 Current Complaints Paraplegia History of Current Condition Pt is a 71 year old male with a very unfortunate medical history. Pt was hiking [place] on 12/16/21 with a friend, finished up, drive back to his friend's home to drop him off, and noticed his left leg was collapsing. By the time pt drove home, both legs were giving out and numb. Pt was suddenly paralized from the waist down, was taken to the ED, and was flown to [facility] on 12/17/21. The following day, he underwent a laminectomy to relieve pressure from the thoracic epidural hematoma which had developed following his hike, which was pressing on his spinal cord. Following surgery , pt was in recovery for a week and was then transfered to rehab for 20 days, when he was finally discharged home in a wheelchair on 01/19/22. Pt reports his surgeon informed him that it is a possibility that he gets some return of nerve function. Has experienced some changes in his right LE, but has no motor function at this time from ~ T10 down. Minimal sensory return on right side, none on left. Pt has been anxious to get in to therapy and do everything he can to help return to function. Pt's , who attended his evaluation, notes that she has been doing a lot of PROM in his legs at night to keep everything moving. Pt can feel some stretching during PROM in his right leg. Pt has additionally already started occupational therapy, and has been practicing some seated stabilization. Pt transfers with a slide board, but notes it is difficult to do into his car, because he has to transfer upward at an incline. PT-OP-C Subjective Start: 03/08/22 17:00 Freq: Status: Active Protocol: Document 06/16/24 15:21 NBM (Rec: 06/16/24 16:32 NBM [id number]) OP-PT Subjective Patient Comments Patient Comments Howell reports no new changes. R side continues to come along and seems to have more feeling and strength. PT-OP-G Mobility & Gait Start: 03/08/22 17:00 Freq: Status: Active Protocol: Document 04/22/24 15:21 DCW (Rec: 04/22/24 16:02 DCW [id number]) OP Mobility Evaluation Transfers Bed to Chair Transfers Transfers using UE, improved with side-side movement, requires minimal verbal cues for LE positioning Car Transfers uses slide board, stabilizes front to back and prevent slide down board Functional Movements Other Functional Movements Pt performs sit->supine->prone ->quadruped with SBA 80% of the time, requires Min Ax1 20% , typically with positioning of knees or feet, or getting up into quad from prone Wheelchair Management Type of Wheelchair Manual w/c Assessment Details Unable to perform tilt back to get over curb. PT-OP-H Neuro Start: 03/08/22 17:00 Freq: Status: Active Protocol: Document 04/22/24 15:21 DCW (Rec: 04/22/24 16:02 DCW [id number]) Sensation Evaluation Gross Sensation Gross Sensation Left LE Impaired,Right LE Impaired,Trunk Impaired Sensation Description Paresthesia,Numbness,Tingling, Pins & [place],Burning Dermatome Impairments L1,L2,L3,L4,L5,S1,S2,S3,S4-5 Location Details Right Leg Light Touch Impaired Sharp/Dull Impaired Deep Pressure Intact/Normal Hot/Cold Absent Protective Sensation Absent Proprioception (Position) Impaired Kinesthesia (Movement) Impaired Two-Point Discrimination Impaired Tactile Localization Impaired Stereognosis Impaired Left Leg Light Touch Absent Sharp/Dull Absent Deep Pressure Impaired Hot/Cold Impaired Protective Sensation Absent Proprioception (Position) Absent Kinesthesia (Movement) Impaired Two-Point Discrimination Absent Tactile Localization Absent Stereognosis Absent Comments Summary Comments B protective reflex vs sharp present Deep Tendon Reflex & Clonus Assessment Deep Tendon Reflex Right Achilles Deep Tendon Reflex 2+ Normal Right Patellar Deep Tendon Reflex 2+ Normal Left Achilles Deep Tendon Reflex 2+ Normal Left Patellar Deep Tendon Reflex 1+ Diminished Ankle Clonus Right Clonus Assessment Sustained Left Clonus Assessment Sustained Muscle Tone Tone Assessment Right Lower Extremity Flexor Tone Description Moderate Hypertonicity Extensor Tone Description Moderate Hypertonicity Left Lower Extremity Flexor Tone Description Moderate Hypertonicity Extensor Tone Description Moderate Hypertonicity PT-OP-J Posture/Palpation/Skin Start: 03/08/22 17:00 Freq: Status: Active Protocol: Document 04/22/24 15:21 DCW (Rec: 04/22/24 16:02 DCW [id number]) Posture Evaluation Comments Posture Comments Sitting EOB with good core control and no instability, uses UEs for support. Recovers from most directional pushing . Improved ability to reach outside of base of support. PT-OP-M Strength Start: 08/21/22 15:38 Freq: Status: Active Protocol: Document 04/22/24 15:21 DCW (Rec: 04/22/24 16:02 DCW [id number]) Shoulder Strength Shoulder Manual Muscle Testing Right Flexion 4 Good Extension 4+ Good+ Abduction (C5) 4 Good External Rotation 3+ Fair+ Internal Rotation 4 Good Left Flexion 4 Good Extension 4+ Good+ Abduction (C5) 4- Good- External Rotation 3+ Fair+ Internal Rotation 4 Good Elbow/Forearm Strength Elbow and Forearm Manual Muscle Testing Right Flexion (C6) 4+ Good+ Extension (C7) 4- Good- Left Flexion (C6) 4 Good Extension (C7) 3+ Fair+ Hand Tap And Die Maker Technician/Pinch Strength Hand Dominance Hand Dominance Right Hand Strength Right Tap And Die Maker Technician (lbs) 90 Left Tap And Die Maker Technician (lbs) 80 Hip Strength Hip Manual Muscle Testing Right Flexion (L2) 1 Trace Extension (S1) 2- Poor- Adduction 2- Poor- Left Flexion (L2) 1 Trace Extension (S1) 2- Poor- Adduction 1 Trace Knee Strength Knee Manual Muscle Testing Right Flexion (S2) 2- Poor- Extension (L3) 1 Trace Left Flexion (S2) 2- Poor- Extension (L3) 1 Trace Ankle/Foot Strength Ankle and Foot Manual Muscle Testing Right Plantarflexion (S1) 2 Poor Left Plantarflexion (S1) 1 Trace PT-OP-Q Treatments Start: 03/08/22 17:00 Freq: Status: Active Protocol: Document 06/16/24 15:21 [facility] (Rec: 06/16/24 16:32 [facility] [id number]) Gym Equipment Cable Column (Body Solid) cable row Details edge of chair for core w/ breathwork Resistance 20# Reps/Time x10 w/ modA at shoulders to prevent trunk flexion Shuttle Recovery Unliateral Squat Details Bilateral: 3 sets of ROM x5> Eccentrical control x10 Resistance 12# Shuttle Recovery Platform Stable Reps/Time UE assist on thighs, proximation thru ea ankle. Bilateral Squats Details with BUE assist on thighs, strap above knees for LE alignment Resistance 25# assisted ascending, BLE only descending Shuttle Recovery Platform Stable Reps/Time eccentric lowering w/ breath, concentric w/ heel push PT-OP-T Assessment and Plan Start: 03/08/22 17:00 Freq: Status: Active Protocol: Document 06/16/24 15:21 [facility] (Rec: 06/16/24 16:32 [facility] [id number]) Physical Therapy Assessment Goals Four Impairment Bilateral triceps weakness (R 4-, L 3+) Tank Washer Goal (LTG) Pt to demonstrate improved triceps strength to at least 4 /5 bilaterally for elbow extension in order to improve transfer ability. LTG Duration 07/21/24 Three Impairment Pt does not have any motor function throughout bilateral LEs Short Term Goal (STG) Pt to demonstrate 1/5 trace motor contraction in at least one quad in order to begin focus on LE mobility if neural functional return begins. STG Duration Met [facility] Goal (LTG) Pt to demonstrate right quad strength to at least 2/5, demonstrating movement into ROM in an antigravity position LTG Duration 07/21/24 Two Impairment Pt struggles with lateral transfer/scooting along EOB [facility] Goal (LTG) Pt to perform lateral scoot transfer using proper technique without any verbal cues 4x in a row. LTG Duration 07/21/24 One Impairment Pt does not have an appropriate home exercise program Short Term Goal (STG) Pt to be independent and compliant with an appropriate HEP STG Duration 07/21/24 Assessment Summary Assessment Toby demonstrates improving strength and motor control on RLE and LLE as he is repeatedly and observably able to eccentrically control descent with unilateral squats on Shuttle Recovery at 12# resistance; proximation provided through ankle by SERVICE ESTABLISHMENT ATTENDANT. Pt demos improved RLE control when valgus force is applied to R knee to maintain RLE alignment through range. LLE demos decreased excessive L hip internal rotation with pt' s effort to arrest descent unilaterally. Physical Therapy Plan Frequency and Duration Frequency of Treatment 2x/Week Plan of Care Start Date 04/22/24 Plan of Care End Date 07/21/24 Therapeutic Interventions Therapeutic Interventions Aquatic Therapy,Balance Training,Coordination Training ,Gait Training,Home Exercise Program,Manual Therapy, Neuromuscular Re-education, Orthotic/Prosthetic Management ,Patient/Caregiver Education, Self-Care/Home Management, Sensory Integration,Soft Tissue Mobilization, Therapeutic Activities, Therapeutic Exercises, Wheelchair Management Next Visit Focus/Plan Next Note Type Treatment Note Next Visit Plan Continue PT per POC: Continue L log roll, L SL>quadruped, Lateral transfers to elevated surfaces more trunk flexion/ frequent scoots decreased assist, Wheelchair wheelies, curb management, POC: Continue UE and core strengthening, LE PROM and manual stretching. Transfers, mobility, LE ROM, pt will benefit from continued breakdown of transfers to improve efficiency and mechanics, as well as working on more seated balance EOB.
--- NOTE | 2024-06-18 17:27 | PT.OTN ---
Current Diagnoses Paraplegia, unspecified (06/18/24) Other specified personal risk factors, not elsewhere classified (06/18/24) Other specified postprocedural states (06/18/24) Physical Therapy Treatment Note PT-OP-A Visit Information Start: 03/08/22 17:00 Freq: Status: Active Protocol: Document 06/18/24 17:02 NBM (Rec: 06/18/24 17:26 NBM [id number]) Out-Patient Physical Therapy Visit Information Visit Information Visit Type Treatment Note Visit Note Spouse Karen and daughter Carla present end of session. Visit Start Time 15:23 Visit Stop Time 16:05 Visit Number [id number] Number of COMMUNICATIONS DIRECTOR Visits 2 Evaluation Information Evaluation Date 03/08/22 PT-OP-B Current Condition Start: 03/08/22 17:00 Freq: Status: Active Protocol: Document 03/17/24 11:29 SAK (Rec: 03/17/24 12:23 SAK [id number]) Current Condition History of Current Condition Onset Date 12/16/21 Current Complaints Paraplegia History of Current Condition Pt is a 71 year old male with a very unfortunate medical history. Pt was hiking [place] on 12/16/21 with a friend, finished up, drive back to his friend's home to drop him off, and noticed his left leg was collapsing. By the time pt drove home, both legs were giving out and numb. Pt was suddenly paralized from the waist down, was taken to the ED, and was flown to [facility] on 12/17/21. The following day, he underwent a laminectomy to relieve pressure from the thoracic epidural hematoma which had developed following his hike, which was pressing on his spinal cord. Following surgery , pt was in recovery for a week and was then transfered to rehab for 20 days, when he was finally discharged home in a wheelchair on 01/19/22. Pt reports his surgeon informed him that it is a possibility that he gets some return of nerve function. Has experienced some changes in his right LE, but has no motor function at this time from ~ T10 down. Minimal sensory return on right side, none on left. Pt has been anxious to get in to therapy and do everything he can to help return to function. Pt's , who attended his evaluation, notes that she has been doing a lot of PROM in his legs at night to keep everything moving. Pt can feel some stretching during PROM in his right leg. Pt has additionally already started occupational therapy, and has been practicing some seated stabilization. Pt transfers with a slide board, but notes it is difficult to do into his car, because he has to transfer upward at an incline. PT-OP-C Subjective Start: 03/08/22 17:00 Freq: Status: Active Protocol: Document 06/18/24 17:02 NBM (Rec: 06/18/24 17:26 NBM [id number]) OP-PT Subjective Patient Comments Patient Comments Sargent reports no new changes. R side continues to come along and seems to have more feeling and strength. PT-OP-G Mobility & Gait Start: 03/08/22 17:00 Freq: Status: Active Protocol: Document 04/22/24 15:21 DCW (Rec: 04/22/24 16:02 DCW [id number]) OP Mobility Evaluation Transfers Bed to Chair Transfers Transfers using UE, improved with side-side movement, requires minimal verbal cues for LE positioning Car Transfers uses slide board, stabilizes front to back and prevent slide down board Functional Movements Other Functional Movements Pt performs sit->supine->prone ->quadruped with SBA 80% of the time, requires Min Ax1 20% , typically with positioning of knees or feet, or getting up into quad from prone Wheelchair Management Type of Wheelchair Manual w/c Assessment Details Unable to perform tilt back to get over curb. PT-OP-H Neuro Start: 03/08/22 17:00 Freq: Status: Active Protocol: Document 04/22/24 15:21 DCW (Rec: 04/22/24 16:02 DCW [id number]) Sensation Evaluation Gross Sensation Gross Sensation Left LE Impaired,Right LE Impaired,Trunk Impaired Sensation Description Paresthesia,Numbness,Tingling, Pins & [place],Burning Dermatome Impairments L1,L2,L3,L4,L5,S1,S2,S3,S4-5 Location Details Right Leg Light Touch Impaired Sharp/Dull Impaired Deep Pressure Intact/Normal Hot/Cold Absent Protective Sensation Absent Proprioception (Position) Impaired Kinesthesia (Movement) Impaired Two-Point Discrimination Impaired Tactile Localization Impaired Stereognosis Impaired Left Leg Light Touch Absent Sharp/Dull Absent Deep Pressure Impaired Hot/Cold Impaired Protective Sensation Absent Proprioception (Position) Absent Kinesthesia (Movement) Impaired Two-Point Discrimination Absent Tactile Localization Absent Stereognosis Absent Comments Summary Comments B protective reflex vs sharp present Deep Tendon Reflex & Clonus Assessment Deep Tendon Reflex Right Achilles Deep Tendon Reflex 2+ Normal Right Patellar Deep Tendon Reflex 2+ Normal Left Achilles Deep Tendon Reflex 2+ Normal Left Patellar Deep Tendon Reflex 1+ Diminished Ankle Clonus Right Clonus Assessment Sustained Left Clonus Assessment Sustained Muscle Tone Tone Assessment Right Lower Extremity Flexor Tone Description Moderate Hypertonicity Extensor Tone Description Moderate Hypertonicity Left Lower Extremity Flexor Tone Description Moderate Hypertonicity Extensor Tone Description Moderate Hypertonicity PT-OP-J Posture/Palpation/Skin Start: 03/08/22 17:00 Freq: Status: Active Protocol: Document 04/22/24 15:21 DCW (Rec: 04/22/24 16:02 DCW [id number]) Posture Evaluation Comments Posture Comments Sitting EOB with good core control and no instability, uses UEs for support. Recovers from most directional pushing . Improved ability to reach outside of base of support. PT-OP-M Strength Start: 08/21/22 15:38 Freq: Status: Active Protocol: Document 04/22/24 15:21 DCW (Rec: 04/22/24 16:02 DCW [id number]) Shoulder Strength Shoulder Manual Muscle Testing Right Flexion 4 Good Extension 4+ Good+ Abduction (C5) 4 Good External Rotation 3+ Fair+ Internal Rotation 4 Good Left Flexion 4 Good Extension 4+ Good+ Abduction (C5) 4- Good- External Rotation 3+ Fair+ Internal Rotation 4 Good Elbow/Forearm Strength Elbow and Forearm Manual Muscle Testing Right Flexion (C6) 4+ Good+ Extension (C7) 4- Good- Left Flexion (C6) 4 Good Extension (C7) 3+ Fair+ Hand Lifestyle Consultant/Pinch Strength Hand Dominance Hand Dominance Right Hand Strength Right Lifestyle Consultant (lbs) 90 Left Lifestyle Consultant (lbs) 80 Hip Strength Hip Manual Muscle Testing Right Flexion (L2) 1 Trace Extension (S1) 2- Poor- Adduction 2- Poor- Left Flexion (L2) 1 Trace Extension (S1) 2- Poor- Adduction 1 Trace Knee Strength Knee Manual Muscle Testing Right Flexion (S2) 2- Poor- Extension (L3) 1 Trace Left Flexion (S2) 2- Poor- Extension (L3) 1 Trace Ankle/Foot Strength Ankle and Foot Manual Muscle Testing Right Plantarflexion (S1) 2 Poor Left Plantarflexion (S1) 1 Trace PT-OP-Q Treatments Start: 03/08/22 17:00 Freq: Status: Active Protocol: Document 06/18/24 17:02 [facility] (Rec: 06/18/24 17:26 [facility] [id number]) Therapeutic Exercises Supine Exercises Hip Flexor Stretch Supine Exercise Name Hip Flexor Stretch (LE extension, UE W) Side bilateral Resistance no pillow support Reps/Minutes 60 Sidelying Exercises Open book Sidelying Exercise Name Open book Side bilateral Resistance 2# DB Equipment Used manual pelvic stabilization, manual ITB stretch on R Reps/Minutes x10 AROM, x1' hold Comments vc for turning head with hand Other Exercises Thread the needle Other Exercise Name Thread the needle on forearms/ knees Side bilateral Comments cues for cervical rotation isaac Long-kneeling Other Exercise Name short /c self thigh support> Tall kneel w/ UE support 12 box Equipment Used GB, 12 box for UE support, PT aide stabilizing box Reps/Minutes x4 Comments vc hand placement, Tricep focus quadruped child's pose Other Exercise Name Child's pose on forearms fwd/ lat, then fwd reach Reps/Minutes 2x15 sec ea Comments COMMUNICATIONS DIRECTOR proximation through post hips quadruped Other Exercise Name push up plus Resistance CGA Reps/Minutes x15, x15 Comments pt self heavy support BUEs Therapeutic Activity Therapeutic Activity squat/lateral scoot transfer Name lateral and fwd scoot Comments w/c<> sitting EOB mat table. Lateral scoot Isaac, cues for L fist for transfer to R. -Long sit center of mat table and Derrek for feet off edge of mat, then SBA for fwd scoot to sitting EOB supine>prone>quadruped Name SBA: into quadruped<> L SL, heavy pt BUE support Reps/Minutes x2 Comments L s/l > quadruped using forehead for support. ->quadruped pt uses edge of mat table to push up, successful on 4th attempt PT-OP-T Assessment and Plan Start: 03/08/22 17:00 Freq: Status: Active Protocol: Document 06/18/24 17:02 [facility] (Rec: 06/18/24 17:26 [facility] [id number]) Physical Therapy Assessment Goals Four Impairment Bilateral triceps weakness (R 4-, L 3+) Scoreboard Operator Goal (LTG) Pt to demonstrate improved triceps strength to at least 4 /5 bilaterally for elbow extension in order to improve transfer ability. LTG Duration 07/21/24 Three Impairment Pt does not have any motor function throughout bilateral LEs Short Term Goal (STG) Pt to demonstrate 1/5 trace motor contraction in at least one quad in order to begin focus on LE mobility if neural functional return begins. STG Duration Met Scoreboard Operator Goal (LTG) Pt to demonstrate right quad strength to at least 2/5, demonstrating movement into ROM in an antigravity position LTG Duration 07/21/24 Two Impairment Pt struggles with lateral transfer/scooting along EOB [facility] Goal (LTG) Pt to perform lateral scoot transfer using proper technique without any verbal cues 4x in a row. LTG Duration 07/21/24 One Impairment Pt does not have an appropriate home exercise program Short Term Goal (STG) Pt to be independent and compliant with an appropriate HEP STG Duration 07/21/24 Assessment Summary Assessment Treatment focus on trunk rotation and Goals Two Lateral transfers/scoot along EOB and Four B Tricep strengthening. Pt requires verbal cues for hand placement and tricep engagement bilaterally for transition from short to tall kneeling using 12 box for UE support, initially requiring modA but improving to CGA with repetition. He requires 4 attempts today for transition from L sidelyiing into quadruped. Positive feedback response to all stretches and improved awareness for turning head as well with initial cueing - I'd like to incorporate these more regularly into my PT. Physical Therapy Plan Frequency and Duration Frequency of Treatment 2x/Week Plan of Care Start Date 04/22/24 Plan of Care End Date 07/21/24 Therapeutic Interventions Therapeutic Interventions Aquatic Therapy,Balance Training,Coordination Training ,Gait Training,Home Exercise Program,Manual Therapy, Neuromuscular Re-education, Orthotic/Prosthetic Management ,Patient/Caregiver Education, Self-Care/Home Management, Sensory Integration,Soft Tissue Mobilization, Therapeutic Activities, Therapeutic Exercises, Wheelchair Management Next Visit Focus/Plan Next Note Type Treatment Note Next Visit Plan Continue PT per POC: Continue L log roll, L SL>quadruped, Lateral transfers to elevated surfaces more trunk flexion/ frequent scoots decreased assist, Wheelchair wheelies, curb management, POC: Continue UE and core strengthening, LE PROM and manual stretching. Transfers, mobility, LE ROM, pt will benefit from continued breakdown of transfers to improve efficiency and mechanics, as well as working on more seated balance EOB.
--- NOTE | 2024-06-23 16:10 | PT.OTN ---
Current Diagnoses Paraplegia, unspecified (06/23/24) Other specified personal risk factors, not elsewhere classified (06/23/24) Other specified postprocedural states (06/23/24) Physical Therapy Treatment Note PT-OP-A Visit Information Start: 03/08/22 17:00 Freq: Status: Active Protocol: Document 06/23/24 15:19 DCW (Rec: 06/23/24 16:09 DCW [id number]) Out-Patient Physical Therapy Visit Information Visit Information Visit Type Treatment Note Visit Start Time 15:19 Visit Stop Time 16:00 Visit Number [id number] Number of REFINING ENGINEER Visits 0 Evaluation Information Evaluation Date 03/08/22 PT-OP-B Current Condition Start: 03/08/22 17:00 Freq: Status: Active Protocol: Document 03/17/24 11:29 SAK (Rec: 03/17/24 12:23 SAK [id number]) Current Condition History of Current Condition Onset Date 12/16/21 Current Complaints Paraplegia History of Current Condition Pt is a 71 year old male with a very unfortunate medical history. Pt was hiking [employer] on 12/16/21 with a friend, finished up, drive back to his friend's home to drop him off, and noticed his left leg was collapsing. By the time pt drove home, both legs were giving out and numb. Pt was suddenly paralized from the waist down, was taken to the ED, and was flown to [facility] on 12/17/21. The following day, he underwent a laminectomy to relieve pressure from the thoracic epidural hematoma which had developed following his hike, which was pressing on his spinal cord. Following surgery , pt was in recovery for a week and was then transfered to rehab for 20 days, when he was finally discharged home in a wheelchair on 01/19/22. Pt reports his surgeon informed him that it is a possibility that he gets some return of nerve function. Has experienced some changes in his right LE, but has no motor function at this time from ~ T10 down. Minimal sensory return on right side, none on left. Pt has been anxious to get in to therapy and do everything he can to help return to function. Pt's , who attended his evaluation, notes that she has been doing a lot of PROM in his legs at night to keep everything moving. Pt can feel some stretching during PROM in his right leg. Pt has additionally already started occupational therapy, and has been practicing some seated stabilization. Pt transfers with a slide board, but notes it is difficult to do into his car, because he has to transfer upward at an incline. PT-OP-C Subjective Start: 03/08/22 17:00 Freq: Status: Active Protocol: Document 06/23/24 15:19 DCW (Rec: 06/23/24 16:09 DCW [id number]) OP-PT Subjective Patient Comments Patient Comments Pt reports doing well today. PT-OP-G Mobility & Gait Start: 03/08/22 17:00 Freq: Status: Active Protocol: Document 04/22/24 15:21 DCW (Rec: 04/22/24 16:02 DCW [id number]) OP Mobility Evaluation Transfers Bed to Chair Transfers Transfers using UE, improved with side-side movement, requires minimal verbal cues for LE positioning Car Transfers uses slide board, stabilizes front to back and prevent slide down board Functional Movements Other Functional Movements Pt performs sit->supine->prone ->quadruped with SBA 80% of the time, requires Min Ax1 20% , typically with positioning of knees or feet, or getting up into quad from prone Wheelchair Management Type of Wheelchair Manual w/c Assessment Details Unable to perform tilt back to get over curb. PT-OP-H Neuro Start: 03/08/22 17:00 Freq: Status: Active Protocol: Document 04/22/24 15:21 DCW (Rec: 04/22/24 16:02 DCW [id number]) Sensation Evaluation Gross Sensation Gross Sensation Left LE Impaired,Right LE Impaired,Trunk Impaired Sensation Description Paresthesia,Numbness,Tingling, Pins & [place],Burning Dermatome Impairments L1,L2,L3,L4,L5,S1,S2,S3,S4-5 Location Details Right Leg Light Touch Impaired Sharp/Dull Impaired Deep Pressure Intact/Normal Hot/Cold Absent Protective Sensation Absent Proprioception (Position) Impaired Kinesthesia (Movement) Impaired Two-Point Discrimination Impaired Tactile Localization Impaired Stereognosis Impaired Left Leg Light Touch Absent Sharp/Dull Absent Deep Pressure Impaired Hot/Cold Impaired Protective Sensation Absent Proprioception (Position) Absent Kinesthesia (Movement) Impaired Two-Point Discrimination Absent Tactile Localization Absent Stereognosis Absent Comments Summary Comments B protective reflex vs sharp present Deep Tendon Reflex & Clonus Assessment Deep Tendon Reflex Right Achilles Deep Tendon Reflex 2+ Normal Right Patellar Deep Tendon Reflex 2+ Normal Left Achilles Deep Tendon Reflex 2+ Normal Left Patellar Deep Tendon Reflex 1+ Diminished Ankle Clonus Right Clonus Assessment Sustained Left Clonus Assessment Sustained Muscle Tone Tone Assessment Right Lower Extremity Flexor Tone Description Moderate Hypertonicity Extensor Tone Description Moderate Hypertonicity Left Lower Extremity Flexor Tone Description Moderate Hypertonicity Extensor Tone Description Moderate Hypertonicity PT-OP-J Posture/Palpation/Skin Start: 03/08/22 17:00 Freq: Status: Active Protocol: Document 04/22/24 15:21 DCW (Rec: 04/22/24 16:02 DCW [id number]) Posture Evaluation Comments Posture Comments Sitting EOB with good core control and no instability, uses UEs for support. Recovers from most directional pushing . Improved ability to reach outside of base of support. PT-OP-M Strength Start: 08/21/22 15:38 Freq: Status: Active Protocol: Document 04/22/24 15:21 DCW (Rec: 04/22/24 16:02 DCW [id number]) Shoulder Strength Shoulder Manual Muscle Testing Right Flexion 4 Good Extension 4+ Good+ Abduction (C5) 4 Good External Rotation 3+ Fair+ Internal Rotation 4 Good Left Flexion 4 Good Extension 4+ Good+ Abduction (C5) 4- Good- External Rotation 3+ Fair+ Internal Rotation 4 Good Elbow/Forearm Strength Elbow and Forearm Manual Muscle Testing Right Flexion (C6) 4+ Good+ Extension (C7) 4- Good- Left Flexion (C6) 4 Good Extension (C7) 3+ Fair+ Hand Learning Disabled Teacher/Pinch Strength Hand Dominance Hand Dominance Right Hand Strength Right Learning Disabled Teacher (lbs) 90 Left Learning Disabled Teacher (lbs) 80 Hip Strength Hip Manual Muscle Testing Right Flexion (L2) 1 Trace Extension (S1) 2- Poor- Adduction 2- Poor- Left Flexion (L2) 1 Trace Extension (S1) 2- Poor- Adduction 1 Trace Knee Strength Knee Manual Muscle Testing Right Flexion (S2) 2- Poor- Extension (L3) 1 Trace Left Flexion (S2) 2- Poor- Extension (L3) 1 Trace Ankle/Foot Strength Ankle and Foot Manual Muscle Testing Right Plantarflexion (S1) 2 Poor Left Plantarflexion (S1) 1 Trace PT-OP-Q Treatments Start: 03/08/22 17:00 Freq: Status: Active Protocol: Document 06/23/24 15:19 DCW (Rec: 06/23/24 16:09 [facility] [id number]) Cardio Equipment Recumbent Stepper (Sci-Fit) Duration (Minutes) 10 Resistance 4 Seat Position Seat removed for w/c Other Anti-tip extended to longest, 30# weights on front of w/c Therapeutic Exercises Sidelying Exercises Open book Sidelying Exercise Name Open book Side bilateral Resistance 2# DB Equipment Used manual pelvic stabilization Reps/Minutes x10 AROM, x1' hold Comments vc for turning head with hand Other Exercises short kneel Other Exercise Name short kneeling /c self thigh support Thread the needle Other Exercise Name Thread the needle on forearms/ knees Side bilateral Comments cues for cervical rotation jonathan Push-ups Other Exercise Name Push-up Plus in quadruped Reps/Minutes x20, x15, x10 Therapeutic Activity Therapeutic Activity squat/lateral scoot transfer Name lateral and fwd scoot Comments w/c<> sitting EOB mat table. Lateral scoot Jonathan, cues for L fist for transfer to R. -Long sit center of mat table and Derrek for feet off edge of mat, then SBA for fwd scoot to sitting EOB supine>prone>quadruped Name SBA: into quadruped<> L SL, heavy pt BUE support Reps/Minutes x2 Comments L s/l > quadruped using forehead for support. ->quadruped pt uses edge of mat table to push up, successful on 4th attempt PT-OP-T Assessment and Plan Start: 03/08/22 17:00 Freq: Status: Active Protocol: Document 06/23/24 15:19 DCW (Rec: 06/23/24 16:09 [facility] [id number]) Physical Therapy Assessment Goals Four Impairment Bilateral triceps weakness (R 4-, L 3+) Group Home Goal (LTG) Pt to demonstrate improved triceps strength to at least 4 /5 bilaterally for elbow extension in order to improve transfer ability. LTG Duration 07/21/24 Three Impairment Pt does not have any motor function throughout bilateral LEs Short Term Goal (STG) Pt to demonstrate 1/5 trace motor contraction in at least one quad in order to begin focus on LE mobility if neural functional return begins. STG Duration Met Group Home Goal (LTG) Pt to demonstrate right quad strength to at least 2/5, demonstrating movement into ROM in an antigravity position LTG Duration 07/21/24 Two Impairment Pt struggles with lateral transfer/scooting along EOB Senior Technical Trainer Goal (LTG) Pt to perform lateral scoot transfer using proper technique without any verbal cues 4x in a row. LTG Duration 07/21/24 One Impairment Pt does not have an appropriate home exercise program Short Term Goal (STG) Pt to be independent and compliant with an appropriate HEP STG Duration 07/21/24 Assessment Summary Assessment Pt able to perform 20 reps of pushups without rest for the first time today. Continue focus on transfers, UE strengthening, bed mobility. Physical Therapy Plan Frequency and Duration Frequency of Treatment 2x/Week Plan of Care Start Date 04/22/24 Plan of Care End Date 07/21/24 Therapeutic Interventions Therapeutic Interventions Aquatic Therapy,Balance Training,Coordination Training ,Gait Training,Home Exercise Program,Manual Therapy, Neuromuscular Re-education, Orthotic/Prosthetic Management ,Patient/Caregiver Education, Self-Care/Home Management, Sensory Integration,Soft Tissue Mobilization, Therapeutic Activities, Therapeutic Exercises, Wheelchair Management Next Visit Focus/Plan Next Note Type Treatment Note Next Visit Plan Continue PT per POC: Continue L log roll, L SL>quadruped, Lateral transfers to elevated surfaces more trunk flexion/ frequent scoots decreased assist, Wheelchair wheelies, curb management, POC: Continue UE and core strengthening, LE PROM and manual stretching. Transfers, mobility, LE ROM, pt will benefit from continued breakdown of transfers to improve efficiency and mechanics, as well as working on more seated balance EOB.
--- NOTE | 2024-06-25 16:36 | PT.OTN ---
Current Diagnoses Paraplegia, unspecified (06/25/24) Other specified personal risk factors, not elsewhere classified (06/25/24) Other specified postprocedural states (06/25/24) Physical Therapy Treatment Note PT-OP-A Visit Information Start: 03/08/22 17:00 Freq: Status: Active Protocol: Document 06/25/24 15:22 NBM (Rec: 06/25/24 16:36 NBM [id number]) Out-Patient Physical Therapy Visit Information Visit Information Visit Type Treatment Note Visit Start Time 15:20 Visit Stop Time 16:02 Visit Number [id number] Number of CRYSTAL MOUNTER Visits 1 Evaluation Information Evaluation Date 03/08/22 PT-OP-B Current Condition Start: 03/08/22 17:00 Freq: Status: Active Protocol: Document 03/17/24 11:29 SAK (Rec: 03/17/24 12:23 SAK [id number]) Current Condition History of Current Condition Onset Date 12/16/21 Current Complaints Paraplegia History of Current Condition Pt is a 71 year old male with a very unfortunate medical history. Pt was hiking [employer] on 12/16/21 with a friend, finished up, drive back to his friend's home to drop him off, and noticed his left leg was collapsing. By the time pt drove home, both legs were giving out and numb. Pt was suddenly paralized from the waist down, was taken to the ED, and was flown to [facility] on 12/17/21. The following day, he underwent a laminectomy to relieve pressure from the thoracic epidural hematoma which had developed following his hike, which was pressing on his spinal cord. Following surgery , pt was in recovery for a week and was then transfered to rehab for 20 days, when he was finally discharged home in a wheelchair on 01/19/22. Pt reports his surgeon informed him that it is a possibility that he gets some return of nerve function. Has experienced some changes in his right LE, but has no motor function at this time from ~ T10 down. Minimal sensory return on right side, none on left. Pt has been anxious to get in to therapy and do everything he can to help return to function. Pt's , who attended his evaluation, notes that she has been doing a lot of PROM in his legs at night to keep everything moving. Pt can feel some stretching during PROM in his right leg. Pt has additionally already started occupational therapy, and has been practicing some seated stabilization. Pt transfers with a slide board, but notes it is difficult to do into his car, because he has to transfer upward at an incline. PT-OP-C Subjective Start: 03/08/22 17:00 Freq: Status: Active Protocol: Document 06/25/24 15:22 NBM (Rec: 06/25/24 16:36 NBM [id number]) OP-PT Subjective Patient Comments Patient Comments Toby reports no new changes. He really enjoys stretching and doing pushups. PT-OP-G Mobility & Gait Start: 03/08/22 17:00 Freq: Status: Active Protocol: Document 04/22/24 15:21 DCW (Rec: 04/22/24 16:02 DCW [id number]) OP Mobility Evaluation Transfers Bed to Chair Transfers Transfers using UE, improved with side-side movement, requires minimal verbal cues for LE positioning Car Transfers uses slide board, stabilizes front to back and prevent slide down board Functional Movements Other Functional Movements Pt performs sit->supine->prone ->quadruped with SBA 80% of the time, requires Min Ax1 20% , typically with positioning of knees or feet, or getting up into quad from prone Wheelchair Management Type of Wheelchair Manual w/c Assessment Details Unable to perform tilt back to get over curb. PT-OP-H Neuro Start: 03/08/22 17:00 Freq: Status: Active Protocol: Document 04/22/24 15:21 DCW (Rec: 04/22/24 16:02 DCW [id number]) Sensation Evaluation Gross Sensation Gross Sensation Left LE Impaired,Right LE Impaired,Trunk Impaired Sensation Description Paresthesia,Numbness,Tingling, Pins & [place],Burning Dermatome Impairments L1,L2,L3,L4,L5,S1,S2,S3,S4-5 Location Details Right Leg Light Touch Impaired Sharp/Dull Impaired Deep Pressure Intact/Normal Hot/Cold Absent Protective Sensation Absent Proprioception (Position) Impaired Kinesthesia (Movement) Impaired Two-Point Discrimination Impaired Tactile Localization Impaired Stereognosis Impaired Left Leg Light Touch Absent Sharp/Dull Absent Deep Pressure Impaired Hot/Cold Impaired Protective Sensation Absent Proprioception (Position) Absent Kinesthesia (Movement) Impaired Two-Point Discrimination Absent Tactile Localization Absent Stereognosis Absent Comments Summary Comments B protective reflex vs sharp present Deep Tendon Reflex & Clonus Assessment Deep Tendon Reflex Right Achilles Deep Tendon Reflex 2+ Normal Right Patellar Deep Tendon Reflex 2+ Normal Left Achilles Deep Tendon Reflex 2+ Normal Left Patellar Deep Tendon Reflex 1+ Diminished Ankle Clonus Right Clonus Assessment Sustained Left Clonus Assessment Sustained Muscle Tone Tone Assessment Right Lower Extremity Flexor Tone Description Moderate Hypertonicity Extensor Tone Description Moderate Hypertonicity Left Lower Extremity Flexor Tone Description Moderate Hypertonicity Extensor Tone Description Moderate Hypertonicity PT-OP-J Posture/Palpation/Skin Start: 03/08/22 17:00 Freq: Status: Active Protocol: Document 04/22/24 15:21 DCW (Rec: 04/22/24 16:02 DCW [id number]) Posture Evaluation Comments Posture Comments Sitting EOB with good core control and no instability, uses UEs for support. Recovers from most directional pushing . Improved ability to reach outside of base of support. PT-OP-M Strength Start: 08/21/22 15:38 Freq: Status: Active Protocol: Document 04/22/24 15:21 DCW (Rec: 04/22/24 16:02 DCW [id number]) Shoulder Strength Shoulder Manual Muscle Testing Right Flexion 4 Good Extension 4+ Good+ Abduction (C5) 4 Good External Rotation 3+ Fair+ Internal Rotation 4 Good Left Flexion 4 Good Extension 4+ Good+ Abduction (C5) 4- Good- External Rotation 3+ Fair+ Internal Rotation 4 Good Elbow/Forearm Strength Elbow and Forearm Manual Muscle Testing Right Flexion (C6) 4+ Good+ Extension (C7) 4- Good- Left Flexion (C6) 4 Good Extension (C7) 3+ Fair+ Hand Tools Developer/Pinch Strength Hand Dominance Hand Dominance Right Hand Strength Right Tools Developer (lbs) 90 Left Tools Developer (lbs) 80 Hip Strength Hip Manual Muscle Testing Right Flexion (L2) 1 Trace Extension (S1) 2- Poor- Adduction 2- Poor- Left Flexion (L2) 1 Trace Extension (S1) 2- Poor- Adduction 1 Trace Knee Strength Knee Manual Muscle Testing Right Flexion (S2) 2- Poor- Extension (L3) 1 Trace Left Flexion (S2) 2- Poor- Extension (L3) 1 Trace Ankle/Foot Strength Ankle and Foot Manual Muscle Testing Right Plantarflexion (S1) 2 Poor Left Plantarflexion (S1) 1 Trace PT-OP-Q Treatments Start: 03/08/22 17:00 Freq: Status: Active Protocol: Document 06/25/24 15:22 NB (Rec: 06/25/24 16:36 [facility] [id number]) Therapeutic Exercises Sidelying Exercises Open book Sidelying Exercise Name Open book Side right Resistance 2# DB Equipment Used manual pelvic stabilization, manual hip abd stretch on R Reps/Minutes x5 AROM, x1' hold Comments dc'd per pt request d/t ride arriving early. Other Exercises short kneel Other Exercise Name 1.short kneeling /c self thigh support 2. tall kneel w/ 12 box Equipment Used 12 box, 2 foam on top attempted but too challenging Reps/Minutes x20 sec ea Comments lateral weighshifts in short kneel. Thread the needle Other Exercise Name Thread the needle on forearms/ knees Side bilateral Comments cues for cervical rotation isaac Long-kneeling Other Exercise Name short /c self thigh support> Tall kneel w/ UE support 12 box Equipment Used GB,12 box for heavy UE support, PT aide stabilizing box Reps/Minutes x4 Comments vc hand placement, Derrek>modA Push-ups Other Exercise Name Push-up Plus in quadruped Reps/Minutes x23, 10 Comments to fatigue quadruped child's pose Other Exercise Name Child's pose on forearms fwd Reps/Minutes 3x15 sec ea Therapeutic Activity Therapeutic Activity Seated Stabilization Comments sitting edge of mat table to dof vest, close SBA. Verbal cues for increasing KIARA from narrow to wide KIARA to improve stability. squat/lateral scoot transfer Name lateral and fwd scoot Comments w/c<> sitting EOB mat table. Lateral scoot Isaac supine>prone>quadruped Name SBA: sitting EOB<> L SL<> quadruped, heavy pt BUE support and head support Reps/Minutes x2 Comments L s/l > quadruped using forehead for support. ->quadruped pt uses edge of mat table to push up, successful on 4th attempt PT-OP-T Assessment and Plan Start: 03/08/22 17:00 Freq: Status: Active Protocol: Document 06/25/24 15:22 NB (Rec: 06/25/24 16:36 [facility] [id number]) Physical Therapy Assessment Goals Four Impairment Bilateral triceps weakness (R 4-, L 3+) Strategic Business Development Goal (LTG) Pt to demonstrate improved triceps strength to at least 4 /5 bilaterally for elbow extension in order to improve transfer ability. LTG Duration 07/21/24 Three Impairment Pt does not have any motor function throughout bilateral LEs Short Term Goal (STG) Pt to demonstrate 1/5 trace motor contraction in at least one quad in order to begin focus on LE mobility if neural functional return begins. STG Duration Met [employer] Business Development Goal (LTG) Pt to demonstrate right quad strength to at least 2/5, demonstrating movement into ROM in an antigravity position LTG Duration 07/21/24 Two Impairment Pt struggles with lateral transfer/scooting along EOB Nursing Home Goal (LTG) Pt to perform lateral scoot transfer using proper technique without any verbal cues 4x in a row. LTG Duration 07/21/24 One Impairment Pt does not have an appropriate home exercise program Short Term Goal (STG) Pt to be independent and compliant with an appropriate HEP STG Duration 07/21/24 Assessment Summary Assessment Toby is cued for wider base of support for more stability to dof vest sitting edge of mat table end of session. He is able to transition from w/c to sitting edge of bed, then into L sidelying and onto quadruped with ease and with SBA only. He self-corrects for LE placement throughout. He is able to perform 23 reps of pushups without rest today, exceeding previous max of 20 reps last visit. Physical Therapy Plan Frequency and Duration Frequency of Treatment 2x/Week Plan of Care Start Date 04/22/24 Plan of Care End Date 07/21/24 Therapeutic Interventions Therapeutic Interventions Aquatic Therapy,Balance Training,Coordination Training ,Gait Training,Home Exercise Program,Manual Therapy, Neuromuscular Re-education, Orthotic/Prosthetic Management ,Patient/Caregiver Education, Self-Care/Home Management, Sensory Integration,Soft Tissue Mobilization, Therapeutic Activities, Therapeutic Exercises, Wheelchair Management Next Visit Focus/Plan Next Note Type Treatment Note Next Visit Plan Continue PT per POC: Continue L log roll, L SL>quadruped, Lateral transfers to elevated surfaces more trunk flexion/ frequent scoots decreased assist, Wheelchair wheelies, curb management, POC: Continue UE and core strengthening, LE PROM and manual stretching. Transfers, mobility, LE ROM, pt will benefit from continued breakdown of transfers to improve efficiency and mechanics, as well as working on more seated balance EOB.
--- NOTE | 2024-06-28 17:52 | PT.OTN ---
Current Diagnoses Paraplegia, unspecified (06/28/24) Other specified personal risk factors, not elsewhere classified (06/28/24) Other specified postprocedural states (06/28/24) Physical Therapy Treatment Note PT-OP-A Visit Information Start: 03/08/22 17:00 Freq: Status: Active Protocol: Document 06/28/24 17:00 DCW (Rec: 06/28/24 17:52 DCW [id number]) Out-Patient Physical Therapy Visit Information Visit Information Visit Type Treatment Note Visit Start Time 17:00 Visit Stop Time 17:45 Visit Number [id number] Number of ENTERPRISE INFRASTRUCTURE ARCHITECT Visits 0 Evaluation Information Evaluation Date 03/08/22 PT-OP-B Current Condition Start: 03/08/22 17:00 Freq: Status: Active Protocol: Document 03/17/24 11:29 SAK (Rec: 03/17/24 12:23 SAK [id number]) Current Condition History of Current Condition Onset Date 12/16/21 Current Complaints Paraplegia History of Current Condition Pt is a 71 year old male with a very unfortunate medical history. Pt was hiking [place] on 12/16/21 with a friend, finished up, drive back to his friend's home to drop him off, and noticed his left leg was collapsing. By the time pt drove home, both legs were giving out and numb. Pt was suddenly paralized from the waist down, was taken to the ED, and was flown to [facility] on 12/17/21. The following day, he underwent a laminectomy to relieve pressure from the thoracic epidural hematoma which had developed following his hike, which was pressing on his spinal cord. Following surgery , pt was in recovery for a week and was then transfered to rehab for 20 days, when he was finally discharged home in a wheelchair on 01/19/22. Pt reports his surgeon informed him that it is a possibility that he gets some return of nerve function. Has experienced some changes in his right LE, but has no motor function at this time from ~ T10 down. Minimal sensory return on right side, none on left. Pt has been anxious to get in to therapy and do everything he can to help return to function. Pt's , who attended his evaluation, notes that she has been doing a lot of PROM in his legs at night to keep everything moving. Pt can feel some stretching during PROM in his right leg. Pt has additionally already started occupational therapy, and has been practicing some seated stabilization. Pt transfers with a slide board, but notes it is difficult to do into his car, because he has to transfer upward at an incline. PT-OP-C Subjective Start: 03/08/22 17:00 Freq: Status: Active Protocol: Document 06/28/24 17:00 DCW (Rec: 06/28/24 17:52 DCW [id number]) OP-PT Subjective Patient Comments Patient Comments Pt feeling pretty good today. PT-OP-G Mobility & Gait Start: 03/08/22 17:00 Freq: Status: Active Protocol: Document 04/22/24 15:21 DCW (Rec: 04/22/24 16:02 DCW [id number]) OP Mobility Evaluation Transfers Bed to Chair Transfers Transfers using UE, improved with side-side movement, requires minimal verbal cues for LE positioning Car Transfers uses slide board, stabilizes front to back and prevent slide down board Functional Movements Other Functional Movements Pt performs sit->supine->prone ->quadruped with SBA 80% of the time, requires Min Ax1 20% , typically with positioning of knees or feet, or getting up into quad from prone Wheelchair Management Type of Wheelchair Manual w/c Assessment Details Unable to perform tilt back to get over curb. PT-OP-H Neuro Start: 03/08/22 17:00 Freq: Status: Active Protocol: Document 04/22/24 15:21 DCW (Rec: 04/22/24 16:02 DCW [id number]) Sensation Evaluation Gross Sensation Gross Sensation Left LE Impaired,Right LE Impaired,Trunk Impaired Sensation Description Paresthesia,Numbness,Tingling, Pins & [place],Burning Dermatome Impairments L1,L2,L3,L4,L5,S1,S2,S3,S4-5 Location Details Right Leg Light Touch Impaired Sharp/Dull Impaired Deep Pressure Intact/Normal Hot/Cold Absent Protective Sensation Absent Proprioception (Position) Impaired Kinesthesia (Movement) Impaired Two-Point Discrimination Impaired Tactile Localization Impaired Stereognosis Impaired Left Leg Light Touch Absent Sharp/Dull Absent Deep Pressure Impaired Hot/Cold Impaired Protective Sensation Absent Proprioception (Position) Absent Kinesthesia (Movement) Impaired Two-Point Discrimination Absent Tactile Localization Absent Stereognosis Absent Comments Summary Comments B protective reflex vs sharp present Deep Tendon Reflex & Clonus Assessment Deep Tendon Reflex Right Achilles Deep Tendon Reflex 2+ Normal Right Patellar Deep Tendon Reflex 2+ Normal Left Achilles Deep Tendon Reflex 2+ Normal Left Patellar Deep Tendon Reflex 1+ Diminished Ankle Clonus Right Clonus Assessment Sustained Left Clonus Assessment Sustained Muscle Tone Tone Assessment Right Lower Extremity Flexor Tone Description Moderate Hypertonicity Extensor Tone Description Moderate Hypertonicity Left Lower Extremity Flexor Tone Description Moderate Hypertonicity Extensor Tone Description Moderate Hypertonicity PT-OP-J Posture/Palpation/Skin Start: 03/08/22 17:00 Freq: Status: Active Protocol: Document 04/22/24 15:21 DCW (Rec: 04/22/24 16:02 DCW [id number]) Posture Evaluation Comments Posture Comments Sitting EOB with good core control and no instability, uses UEs for support. Recovers from most directional pushing . Improved ability to reach outside of base of support. PT-OP-M Strength Start: 08/21/22 15:38 Freq: Status: Active Protocol: Document 04/22/24 15:21 DCW (Rec: 04/22/24 16:02 DCW [id number]) Shoulder Strength Shoulder Manual Muscle Testing Right Flexion 4 Good Extension 4+ Good+ Abduction (C5) 4 Good External Rotation 3+ Fair+ Internal Rotation 4 Good Left Flexion 4 Good Extension 4+ Good+ Abduction (C5) 4- Good- External Rotation 3+ Fair+ Internal Rotation 4 Good Elbow/Forearm Strength Elbow and Forearm Manual Muscle Testing Right Flexion (C6) 4+ Good+ Extension (C7) 4- Good- Left Flexion (C6) 4 Good Extension (C7) 3+ Fair+ Hand Acute Care Nurse/Pinch Strength Hand Dominance Hand Dominance Right Hand Strength Right Acute Care Nurse (lbs) 90 Left Acute Care Nurse (lbs) 80 Hip Strength Hip Manual Muscle Testing Right Flexion (L2) 1 Trace Extension (S1) 2- Poor- Adduction 2- Poor- Left Flexion (L2) 1 Trace Extension (S1) 2- Poor- Adduction 1 Trace Knee Strength Knee Manual Muscle Testing Right Flexion (S2) 2- Poor- Extension (L3) 1 Trace Left Flexion (S2) 2- Poor- Extension (L3) 1 Trace Ankle/Foot Strength Ankle and Foot Manual Muscle Testing Right Plantarflexion (S1) 2 Poor Left Plantarflexion (S1) 1 Trace PT-OP-Q Treatments Start: 03/08/22 17:00 Freq: Status: Active Protocol: Document 06/28/24 17:00 DCW (Rec: 06/28/24 17:52 DCW [id number]) Cardio Equipment Recumbent Stepper (Sci-Fit) Duration (Minutes) 10 Resistance 4 Seat Position Seat removed for w/c Other R anti-tip placed on SciFit base to prevent tilt Gym Equipment Therapeutic Ball Abdominal Curl Exercise Details Press ball into abdomen in supine Ball Size/Color Blue - 45 cm Body Position Hooklying Therapeutic Exercises Sidelying Exercises Open book Sidelying Exercise Name Open book Side right Resistance 2# DB Equipment Used manual pelvic stabilization, manual hip abd stretch on R Reps/Minutes x5 AROM, x1' hold Comments dc'd per pt request d/t ride arriving early. Other Exercises short kneel Other Exercise Name short kneeling /c self thigh support Thread the needle Other Exercise Name Thread the needle on forearms/ knees Side bilateral Comments cues for cervical rotation isaac Push-ups Other Exercise Name Push-up Plus in quadruped Reps/Minutes x20, x10, x10 Therapeutic Activity Therapeutic Activity supine>prone>quadruped Name SBA: into quadruped<> L SL, heavy pt BUE support Reps/Minutes x2 Comments L s/l > quadruped using forehead for support. ->quadruped pt uses edge of mat table to push up, successful on 4th attempt PT-OP-T Assessment and Plan Start: 03/08/22 17:00 Freq: Status: Active Protocol: Document 06/28/24 17:00 DC (Rec: 06/28/24 17:52 [facility] [id number]) Physical Therapy Assessment Impairments Impairments Activity Tolerance,Balance, Coordination,Functional Activities,Functional Mobility ,Gait,Integument,Sensation, Soft Tissue Mobility,Strength, Tone,Transfers Goals Four Impairment Bilateral triceps weakness (R 4-, L 3+) Halfway Goal (LTG) Pt to demonstrate improved triceps strength to at least 4 /5 bilaterally for elbow extension in order to improve transfer ability. LTG Duration 07/21/24 Three Impairment Pt does not have any motor function throughout bilateral LEs Short Term Goal (STG) Pt to demonstrate 1/5 trace motor contraction in at least one quad in order to begin focus on LE mobility if neural functional return begins. STG Duration Met Sustainability Project Manager Goal (LTG) Pt to demonstrate right quad strength to at least 2/5, demonstrating movement into ROM in an antigravity position LTG Duration 07/21/24 Two Impairment Pt struggles with lateral transfer/scooting along EOB Halfway Goal (LTG) Pt to perform lateral scoot transfer using proper technique without any verbal cues 4x in a row. LTG Duration 07/21/24 One Impairment Pt does not have an appropriate home exercise program Short Term Goal (STG) Pt to be independent and compliant with an appropriate HEP STG Duration 07/21/24 Assessment Summary Assessment Tolerated treatment well today , pt continues to improve with triceps strength. Physical Therapy Plan Frequency and Duration Frequency of Treatment 2x/Week Plan of Care Start Date 04/22/24 Plan of Care End Date 07/21/24 Therapeutic Interventions Therapeutic Interventions Aquatic Therapy,Balance Training,Coordination Training ,Gait Training,Home Exercise Program,Manual Therapy, Neuromuscular Re-education, Orthotic/Prosthetic Management ,Patient/Caregiver Education, Self-Care/Home Management, Sensory Integration,Soft Tissue Mobilization, Therapeutic Activities, Therapeutic Exercises, Wheelchair Management Next Visit Focus/Plan Next Note Type Treatment Note Next Visit Plan Continue PT per POC: Continue L log roll, L SL>quadruped, Lateral transfers to elevated surfaces more trunk flexion/ frequent scoots decreased assist, Wheelchair wheelies, curb management, POC: Continue UE and core strengthening, LE PROM and manual stretching. Transfers, mobility, LE ROM, pt will benefit from continued breakdown of transfers to improve efficiency and mechanics, as well as working on more seated balance EOB.
--- NOTE | 2024-06-30 16:41 | PT.OTN ---
Current Diagnoses Paraplegia, unspecified (06/30/24) Other specified personal risk factors, not elsewhere classified (06/30/24) Other specified postprocedural states (06/30/24) Physical Therapy Treatment Note PT-OP-A Visit Information Start: 03/08/22 17:00 Freq: Status: Active Protocol: Document 06/30/24 15:20 NBM (Rec: 06/30/24 16:41 NBM [id number]) Out-Patient Physical Therapy Visit Information Visit Information Visit Type Treatment Note Visit Start Time 15:20 Visit Stop Time 16:05 Visit Number [id number] Number of GEOLOGICAL MANAGER Visits 1 Evaluation Information Evaluation Date 03/08/22 PT-OP-B Current Condition Start: 03/08/22 17:00 Freq: Status: Active Protocol: Document 03/17/24 11:29 SAK (Rec: 03/17/24 12:23 SAK [id number]) Current Condition History of Current Condition Onset Date 12/16/21 Current Complaints Paraplegia History of Current Condition Pt is a 71 year old male with a very unfortunate medical history. Pt was hiking [place] on 12/16/21 with a friend, finished up, drive back to his friend's home to drop him off, and noticed his left leg was collapsing. By the time pt drove home, both legs were giving out and numb. Pt was suddenly paralized from the waist down, was taken to the ED, and was flown to [facility] on 12/17/21. The following day, he underwent a laminectomy to relieve pressure from the thoracic epidural hematoma which had developed following his hike, which was pressing on his spinal cord. Following surgery , pt was in recovery for a week and was then transfered to rehab for 20 days, when he was finally discharged home in a wheelchair on 01/19/22. Pt reports his surgeon informed him that it is a possibility that he gets some return of nerve function. Has experienced some changes in his right LE, but has no motor function at this time from ~ T10 down. Minimal sensory return on right side, none on left. Pt has been anxious to get in to therapy and do everything he can to help return to function. Pt's , who attended his evaluation, notes that she has been doing a lot of PROM in his legs at night to keep everything moving. Pt can feel some stretching during PROM in his right leg. Pt has additionally already started occupational therapy, and has been practicing some seated stabilization. Pt transfers with a slide board, but notes it is difficult to do into his car, because he has to transfer upward at an incline. PT-OP-C Subjective Start: 03/08/22 17:00 Freq: Status: Active Protocol: Document 06/30/24 15:20 NBM (Rec: 06/30/24 16:41 NBM [id number]) OP-PT Subjective Patient Comments Patient Comments Barnes reports he continues to see progress on R leg more than left. PT-OP-G Mobility & Gait Start: 03/08/22 17:00 Freq: Status: Active Protocol: Document 04/22/24 15:21 DCW (Rec: 04/22/24 16:02 DCW [id number]) OP Mobility Evaluation Transfers Bed to Chair Transfers Transfers using UE, improved with side-side movement, requires minimal verbal cues for LE positioning Car Transfers uses slide board, stabilizes front to back and prevent slide down board Functional Movements Other Functional Movements Pt performs sit->supine->prone ->quadruped with SBA 80% of the time, requires Min Ax1 20% , typically with positioning of knees or feet, or getting up into quad from prone Wheelchair Management Type of Wheelchair Manual w/c Assessment Details Unable to perform tilt back to get over curb. PT-OP-H Neuro Start: 03/08/22 17:00 Freq: Status: Active Protocol: Document 04/22/24 15:21 DCW (Rec: 04/22/24 16:02 DCW [id number]) Sensation Evaluation Gross Sensation Gross Sensation Left LE Impaired,Right LE Impaired,Trunk Impaired Sensation Description Paresthesia,Numbness,Tingling, [place] & [place],Burning Dermatome Impairments L1,L2,L3,L4,L5,S1,S2,S3,S4-5 Location Details Right Leg Light Touch Impaired Sharp/Dull Impaired Deep Pressure Intact/Normal Hot/Cold Absent Protective Sensation Absent Proprioception (Position) Impaired Kinesthesia (Movement) Impaired Two-Point Discrimination Impaired Tactile Localization Impaired Stereognosis Impaired Left Leg Light Touch Absent Sharp/Dull Absent Deep Pressure Impaired Hot/Cold Impaired Protective Sensation Absent Proprioception (Position) Absent Kinesthesia (Movement) Impaired Two-Point Discrimination Absent Tactile Localization Absent Stereognosis Absent Comments Summary Comments B protective reflex vs sharp present Deep Tendon Reflex & Clonus Assessment Deep Tendon Reflex Right Achilles Deep Tendon Reflex 2+ Normal Right Patellar Deep Tendon Reflex 2+ Normal Left Achilles Deep Tendon Reflex 2+ Normal Left Patellar Deep Tendon Reflex 1+ Diminished Ankle Clonus Right Clonus Assessment Sustained Left Clonus Assessment Sustained Muscle Tone Tone Assessment Right Lower Extremity Flexor Tone Description Moderate Hypertonicity Extensor Tone Description Moderate Hypertonicity Left Lower Extremity Flexor Tone Description Moderate Hypertonicity Extensor Tone Description Moderate Hypertonicity PT-OP-J Posture/Palpation/Skin Start: 03/08/22 17:00 Freq: Status: Active Protocol: Document 04/22/24 15:21 DCW (Rec: 04/22/24 16:02 DCW [id number]) Posture Evaluation Comments Posture Comments Sitting EOB with good core control and no instability, uses UEs for support. Recovers from most directional pushing . Improved ability to reach outside of base of support. PT-OP-M Strength Start: 08/21/22 15:38 Freq: Status: Active Protocol: Document 04/22/24 15:21 DCW (Rec: 04/22/24 16:02 DCW [id number]) Shoulder Strength Shoulder Manual Muscle Testing Right Flexion 4 Good Extension 4+ Good+ Abduction (C5) 4 Good External Rotation 3+ Fair+ Internal Rotation 4 Good Left Flexion 4 Good Extension 4+ Good+ Abduction (C5) 4- Good- External Rotation 3+ Fair+ Internal Rotation 4 Good Elbow/Forearm Strength Elbow and Forearm Manual Muscle Testing Right Flexion (C6) 4+ Good+ Extension (C7) 4- Good- Left Flexion (C6) 4 Good Extension (C7) 3+ Fair+ Hand Driver Engineer/Pinch Strength Hand Dominance Hand Dominance Right Hand Strength Right Driver Engineer (lbs) 90 Left Driver Engineer (lbs) 80 Hip Strength Hip Manual Muscle Testing Right Flexion (L2) 1 Trace Extension (S1) 2- Poor- Adduction 2- Poor- Left Flexion (L2) 1 Trace Extension (S1) 2- Poor- Adduction 1 Trace Knee Strength Knee Manual Muscle Testing Right Flexion (S2) 2- Poor- Extension (L3) 1 Trace Left Flexion (S2) 2- Poor- Extension (L3) 1 Trace Ankle/Foot Strength Ankle and Foot Manual Muscle Testing Right Plantarflexion (S1) 2 Poor Left Plantarflexion (S1) 1 Trace PT-OP-Q Treatments Start: 03/08/22 17:00 Freq: Status: Active Protocol: Document 06/30/24 15:20 [facility] (Rec: 06/30/24 16:41 [facility] [id number]) Gym Equipment Shuttle Recovery Unliateral Squat Details Bilateral: ROM x5>Eccentrical control x10 ea Resistance 12# Shuttle Recovery Platform Stable Reps/Time ascending UE assist on thighs, proximation thru R ankle Bilateral Squats Details with BUE assist on thighs, strap above knees for LE alignment Resistance 25>37# assisted ascending; descendin# BLE only; 37# AAROM UEs on thighs Shuttle Recovery Platform Stable Reps/Time eccentric lowering w/ breath, concentric w/ heel push Therapeutic Exercises Supine Exercises Calf stretch Supine Exercise Name heels positioned off platform Side bilateral Resistance 25# Equipment Used Shuttle Recovery Stable platform Reps/Minutes 2x60, GEOLOGICAL MANAGER facilitates knee extension above knees Comments positive feedback response Hip Adduction Supine Exercise Name 1. AROM 2. eccentric control, GEOLOGICAL MANAGER initiates LE alignment Side bilateral Equipment Used on Shuttle Recovery Reps/Minutes 1.x5 2.x10 Comments perceptible movement R AROM. 2 . arrests movement R>L PT-OP-T Assessment and Plan Start: 03/08/22 17:00 Freq: Status: Active Protocol: Document 06/30/24 15:20 [facility] (Rec: 06/30/24 16:41 [facility] [id number]) Physical Therapy Assessment Goals Four Impairment Bilateral triceps weakness (R 4-, L 3+) Fpc Goal (LTG) Pt to demonstrate improved triceps strength to at least 4 /5 bilaterally for elbow extension in order to improve transfer ability. LTG Duration 07/21/24 Three Impairment Pt does not have any motor function throughout bilateral LEs Short Term Goal (STG) Pt to demonstrate 1/5 trace motor contraction in at least one quad in order to begin focus on LE mobility if neural functional return begins. STG Duration Met Fpc Goal (LTG) Pt to demonstrate right quad strength to at least 2/5, demonstrating movement into ROM in an antigravity position LTG Duration 07/21/24 Two Impairment Pt struggles with lateral transfer/scooting along EOB Fpc Goal (LTG) Pt to perform lateral scoot transfer using proper technique without any verbal cues 4x in a row. LTG Duration 07/21/24 One Impairment Pt does not have an appropriate home exercise program Short Term Goal (STG) Pt to be independent and compliant with an appropriate HEP STG Duration 07/21/24 Assessment Summary Assessment Toby demonstrates improving lower extremity strength R>L. He is able to demonstrate perceptible R hip adduction semi-reclined, and is able to demonstrate eccentric control of hip adduction R>L when this GEOLOGICAL MANAGER places lower extremities into alignment. He tolerates progression today of bilateral squats from 25# to 37# with thigh assist for ascending, and requires AAROM for descending at 37# using upper extremities on thighs with palpable quad activation bilaterally and good breathwork throughout. Both R and L LEs are able to arrest descent of unilateral squats at 12#s, and LLE starts in excessive knee valgus but snaps into alignment at about 90 degrees with pt effort. Physical Therapy Plan Frequency and Duration Frequency of Treatment 2x/Week Plan of Care Start Date 04/22/24 Plan of Care End Date 07/21/24 Therapeutic Interventions Therapeutic Interventions Aquatic Therapy,Balance Training,Coordination Training ,Gait Training,Home Exercise Program,Manual Therapy, Neuromuscular Re-education, Orthotic/Prosthetic Management ,Patient/Caregiver Education, Self-Care/Home Management, Sensory Integration,Soft Tissue Mobilization, Therapeutic Activities, Therapeutic Exercises, Wheelchair Management Next Visit Focus/Plan Next Note Type Treatment Note Next Visit Plan Continue PT per POC: Continue L log roll, L SL>quadruped, Lateral transfers to elevated surfaces more trunk flexion/ frequent scoots decreased assist, Wheelchair wheelies, curb management, POC: Continue UE and core strengthening, LE PROM and manual stretching. Transfers, mobility, LE ROM, pt will benefit from continued breakdown of transfers to improve efficiency and mechanics, as well as working on more seated balance EOB.
--- NOTE | 2024-07-05 15:55 | PT.OTN ---
Current Diagnoses Paraplegia, unspecified (07/05/24) Other specified personal risk factors, not elsewhere classified (07/05/24) Other specified postprocedural states (07/05/24) Physical Therapy Treatment Note PT-OP-A Visit Information Start: 03/08/22 17:00 Freq: Status: Active Protocol: Document 07/05/24 15:17 DCW (Rec: 07/05/24 15:55 DCW [id number]) Out-Patient Physical Therapy Visit Information Visit Information Visit Type Treatment Note Visit Start Time 15:17 Visit Stop Time 16:00 Visit Number [id number] Number of BUSINESS ASSISTANT Visits 0 Evaluation Information Evaluation Date 03/08/22 PT-OP-B Current Condition Start: 03/08/22 17:00 Freq: Status: Active Protocol: Document 03/17/24 11:29 SAK (Rec: 03/17/24 12:23 SAK [id number]) Current Condition History of Current Condition Onset Date 12/16/21 Current Complaints Paraplegia History of Current Condition Pt is a 71 year old male with a very unfortunate medical history. Pt was hiking [employer] on 12/16/21 with a friend, finished up, drive back to his friend's home to drop him off, and noticed his left leg was collapsing. By the time pt drove home, both legs were giving out and numb. Pt was suddenly paralized from the waist down, was taken to the ED, and was flown to [facility] on 12/17/21. The following day, he underwent a laminectomy to relieve pressure from the thoracic epidural hematoma which had developed following his hike, which was pressing on his spinal cord. Following surgery , pt was in recovery for a week and was then transfered to rehab for 20 days, when he was finally discharged home in a wheelchair on 01/19/22. Pt reports his surgeon informed him that it is a possibility that he gets some return of nerve function. Has experienced some changes in his right LE, but has no motor function at this time from ~ T10 down. Minimal sensory return on right side, none on left. Pt has been anxious to get in to therapy and do everything he can to help return to function. Pt's , who attended his evaluation, notes that she has been doing a lot of PROM in his legs at night to keep everything moving. Pt can feel some stretching during PROM in his right leg. Pt has additionally already started occupational therapy, and has been practicing some seated stabilization. Pt transfers with a slide board, but notes it is difficult to do into his car, because he has to transfer upward at an incline. PT-OP-C Subjective Start: 03/08/22 17:00 Freq: Status: Active Protocol: Document 07/05/24 15:17 DCW (Rec: 07/05/24 15:55 DCW [id number]) OP-PT Subjective Patient Comments Patient Comments Just rolling my stone. PT-OP-G Mobility & Gait Start: 03/08/22 17:00 Freq: Status: Active Protocol: Document 04/22/24 15:21 DCW (Rec: 04/22/24 16:02 DCW [id number]) OP Mobility Evaluation Transfers Bed to Chair Transfers Transfers using UE, improved with side-side movement, requires minimal verbal cues for LE positioning Car Transfers uses slide board, stabilizes front to back and prevent slide down board Functional Movements Other Functional Movements Pt performs sit->supine->prone ->quadruped with SBA 80% of the time, requires Min Ax1 20% , typically with positioning of knees or feet, or getting up into quad from prone Wheelchair Management Type of Wheelchair Manual w/c Assessment Details Unable to perform tilt back to get over curb. PT-OP-H Neuro Start: 03/08/22 17:00 Freq: Status: Active Protocol: Document 04/22/24 15:21 DCW (Rec: 04/22/24 16:02 DCW [id number]) Sensation Evaluation Gross Sensation Gross Sensation Left LE Impaired,Right LE Impaired,Trunk Impaired Sensation Description Paresthesia,Numbness,Tingling, Pins & [place]ork,Burning Dermatome Impairments L1,L2,L3,L4,L5,S1,S2,S3,S4-5 Location Details Right Leg Light Touch Impaired Sharp/Dull Impaired Deep Pressure Intact/Normal Hot/Cold Absent Protective Sensation Absent Proprioception (Position) Impaired Kinesthesia (Movement) Impaired Two-Point Discrimination Impaired Tactile Localization Impaired Stereognosis Impaired Left Leg Light Touch Absent Sharp/Dull Absent Deep Pressure Impaired Hot/Cold Impaired Protective Sensation Absent Proprioception (Position) Absent Kinesthesia (Movement) Impaired Two-Point Discrimination Absent Tactile Localization Absent Stereognosis Absent Comments Summary Comments B protective reflex vs sharp present Deep Tendon Reflex & Clonus Assessment Deep Tendon Reflex Right Achilles Deep Tendon Reflex 2+ Normal Right Patellar Deep Tendon Reflex 2+ Normal Left Achilles Deep Tendon Reflex 2+ Normal Left Patellar Deep Tendon Reflex 1+ Diminished Ankle Clonus Right Clonus Assessment Sustained Left Clonus Assessment Sustained Muscle Tone Tone Assessment Right Lower Extremity Flexor Tone Description Moderate Hypertonicity Extensor Tone Description Moderate Hypertonicity Left Lower Extremity Flexor Tone Description Moderate Hypertonicity Extensor Tone Description Moderate Hypertonicity PT-OP-J Posture/Palpation/Skin Start: 03/08/22 17:00 Freq: Status: Active Protocol: Document 04/22/24 15:21 DCW (Rec: 04/22/24 16:02 DCW [id number]) Posture Evaluation Comments Posture Comments Sitting EOB with good core control and no instability, uses UEs for support. Recovers from most directional pushing . Improved ability to reach outside of base of support. PT-OP-M Strength Start: 08/21/22 15:38 Freq: Status: Active Protocol: Document 04/22/24 15:21 DCW (Rec: 04/22/24 16:02 DCW [id number]) Shoulder Strength Shoulder Manual Muscle Testing Right Flexion 4 Good Extension 4+ Good+ Abduction (C5) 4 Good External Rotation 3+ Fair+ Internal Rotation 4 Good Left Flexion 4 Good Extension 4+ Good+ Abduction (C5) 4- Good- External Rotation 3+ Fair+ Internal Rotation 4 Good Elbow/Forearm Strength Elbow and Forearm Manual Muscle Testing Right Flexion (C6) 4+ Good+ Extension (C7) 4- Good- Left Flexion (C6) 4 Good Extension (C7) 3+ Fair+ Hand Holter Technician/Pinch Strength Hand Dominance Hand Dominance Right Hand Strength Right Holter Technician (lbs) 90 Left Holter Technician (lbs) 80 Hip Strength Hip Manual Muscle Testing Right Flexion (L2) 1 Trace Extension (S1) 2- Poor- Adduction 2- Poor- Left Flexion (L2) 1 Trace Extension (S1) 2- Poor- Adduction 1 Trace Knee Strength Knee Manual Muscle Testing Right Flexion (S2) 2- Poor- Extension (L3) 1 Trace Left Flexion (S2) 2- Poor- Extension (L3) 1 Trace Ankle/Foot Strength Ankle and Foot Manual Muscle Testing Right Plantarflexion (S1) 2 Poor Left Plantarflexion (S1) 1 Trace PT-OP-Q Treatments Start: 03/08/22 17:00 Freq: Status: Active Protocol: Document 07/05/24 15:17 DCW (Rec: 07/05/24 15:55 DCW [id number]) Gym Equipment Shuttle Recovery Bilateral Squats Details with BUE assist on thighs, strap above knees for LE alignment Resistance 25# assisted ascending, resisted descending Shuttle Recovery Platform Stable Reps/Time eccentric lowering w/ breath, concentric w/ heel push Therapeutic Ball Abdominal Curl Exercise Details Press ball into abdomen in supine Ball Size/Color Blue - 45 cm Body Position Hooklying Therapeutic Exercises Other Exercises short kneel Other Exercise Name short kneeling /c self thigh support Thread the needle Other Exercise Name Thread the needle on forearms/ knees Side bilateral Comments cues for cervical rotation isaac Push-ups Other Exercise Name Push-up Plus in quadruped Reps/Minutes x25, x15, x10 quadruped child's pose Other Exercise Name Child's pose on forearms fwd Reps/Minutes 3x15 sec ea Therapeutic Activity Therapeutic Activity supine>prone>quadruped Name SBA: into quadruped<> L SL, heavy pt BUE support Reps/Minutes x2 Comments L s/l > quadruped using forehead for support. ->quadruped pt uses edge of mat table to push up, successful on 4th attempt PT-OP-T Assessment and Plan Start: 03/08/22 17:00 Freq: Status: Active Protocol: Document 07/05/24 15:17 DCW (Rec: 07/05/24 15:55 DCW [id number]) Physical Therapy Assessment Impairments Impairments Activity Tolerance,Balance, Coordination,Functional Activities,Functional Mobility ,Gait,Integument,Sensation, Soft Tissue Mobility,Strength, Tone,Transfers Goals Four Impairment Bilateral triceps weakness (R 4-, L 3+) Usp Goal (LTG) Pt to demonstrate improved triceps strength to at least 4 /5 bilaterally for elbow extension in order to improve transfer ability. LTG Duration 07/21/24 Three Impairment Pt does not have any motor function throughout bilateral LEs Short Term Goal (STG) Pt to demonstrate 1/5 trace motor contraction in at least one quad in order to begin focus on LE mobility if neural functional return begins. STG Duration Met Usp Goal (LTG) Pt to demonstrate right quad strength to at least 2/5, demonstrating movement into ROM in an antigravity position LTG Duration 07/21/24 Two Impairment Pt struggles with lateral transfer/scooting along EOB Usp Goal (LTG) Pt to perform lateral scoot transfer using proper technique without any verbal cues 4x in a row. LTG Duration 07/21/24 One Impairment Pt does not have an appropriate home exercise program Short Term Goal (STG) Pt to be independent and compliant with an appropriate HEP STG Duration 07/21/24 Assessment Summary Assessment Pt continues to notes improvement in sensation and motor control in right leg, additionally notes he has been able to feels some ever so slight quad contraction on left. Physical Therapy Plan Frequency and Duration Frequency of Treatment 2x/Week Plan of Care Start Date 04/22/24 Plan of Care End Date 07/21/24 Therapeutic Interventions Therapeutic Interventions Aquatic Therapy,Balance Training,Coordination Training ,Gait Training,Home Exercise Program,Manual Therapy, Neuromuscular Re-education, Orthotic/Prosthetic Management ,Patient/Caregiver Education, Self-Care/Home Management, Sensory Integration,Soft Tissue Mobilization, Therapeutic Activities, Therapeutic Exercises, Wheelchair Management Next Visit Focus/Plan Next Note Type Treatment Note Next Visit Plan Continue PT per POC: Continue L log roll, L SL>quadruped, Lateral transfers to elevated surfaces more trunk flexion/ frequent scoots decreased assist, Wheelchair wheelies, curb management, POC: Continue UE and core strengthening, LE PROM and manual stretching. Transfers, mobility, LE ROM, pt will benefit from continued breakdown of transfers to improve efficiency and mechanics, as well as working on more seated balance EOB.
--- NOTE | 2024-07-07 16:07 | PT.OTN ---
Current Diagnoses Paraplegia, unspecified (07/07/24) Other specified personal risk factors, not elsewhere classified (07/07/24) Other specified postprocedural states (07/07/24) Physical Therapy Treatment Note PT-OP-A Visit Information Start: 03/08/22 17:00 Freq: Status: Active Protocol: Document 07/07/24 15:21 DCW (Rec: 07/07/24 16:07 DCW [id number]) Out-Patient Physical Therapy Visit Information Visit Information Visit Type Treatment Note Visit Start Time 15:21 Visit Stop Time 16:05 Visit Number [id number] Number of ENGINEER ASSISTANT Visits 0 Evaluation Information Evaluation Date 03/08/22 PT-OP-B Current Condition Start: 03/08/22 17:00 Freq: Status: Active Protocol: Document 03/17/24 11:29 SAK (Rec: 03/17/24 12:23 SAK [id number]) Current Condition History of Current Condition Onset Date 12/16/21 Current Complaints Paraplegia History of Current Condition Pt is a 71 year old male with a very unfortunate medical history. Pt was hiking [employer] on 12/16/21 with a friend, finished up, drive back to his friend's home to drop him off, and noticed his left leg was collapsing. By the time pt drove home, both legs were giving out and numb. Pt was suddenly paralized from the waist down, was taken to the ED, and was flown to [facility] on 12/17/21. The following day, he underwent a laminectomy to relieve pressure from the thoracic epidural hematoma which had developed following his hike, which was pressing on his spinal cord. Following surgery , pt was in recovery for a week and was then transfered to rehab for 20 days, when he was finally discharged home in a wheelchair on 01/19/22. Pt reports his surgeon informed him that it is a possibility that he gets some return of nerve function. Has experienced some changes in his right LE, but has no motor function at this time from ~ T10 down. Minimal sensory return on right side, none on left. Pt has been anxious to get in to therapy and do everything he can to help return to function. Pt's , who attended his evaluation, notes that she has been doing a lot of PROM in his legs at night to keep everything moving. Pt can feel some stretching during PROM in his right leg. Pt has additionally already started occupational therapy, and has been practicing some seated stabilization. Pt transfers with a slide board, but notes it is difficult to do into his car, because he has to transfer upward at an incline. PT-OP-C Subjective Start: 03/08/22 17:00 Freq: Status: Active Protocol: Document 07/07/24 15:21 DCW (Rec: 07/07/24 16:07 DCW [id number]) OP-PT Subjective Patient Comments Patient Comments Pt feeling pretty good today. PT-OP-G Mobility & Gait Start: 03/08/22 17:00 Freq: Status: Active Protocol: Document 04/22/24 15:21 DCW (Rec: 04/22/24 16:02 DCW [id number]) OP Mobility Evaluation Transfers Bed to Chair Transfers Transfers using UE, improved with side-side movement, requires minimal verbal cues for LE positioning Car Transfers uses slide board, stabilizes front to back and prevent slide down board Functional Movements Other Functional Movements Pt performs sit->supine->prone ->quadruped with SBA 80% of the time, requires Min Ax1 20% , typically with positioning of knees or feet, or getting up into quad from prone Wheelchair Management Type of Wheelchair Manual w/c Assessment Details Unable to perform tilt back to get over curb. PT-OP-H Neuro Start: 03/08/22 17:00 Freq: Status: Active Protocol: Document 04/22/24 15:21 DCW (Rec: 04/22/24 16:02 DCW [id number]) Sensation Evaluation Gross Sensation Gross Sensation Left LE Impaired,Right LE Impaired,Trunk Impaired Sensation Description Paresthesia,Numbness,Tingling, Pins & Fitzgerald,Burning Dermatome Impairments L1,L2,L3,L4,L5,S1,S2,S3,S4-5 Location Details Right Leg Light Touch Impaired Sharp/Dull Impaired Deep Pressure Intact/Normal Hot/Cold Absent Protective Sensation Absent Proprioception (Position) Impaired Kinesthesia (Movement) Impaired Two-Point Discrimination Impaired Tactile Localization Impaired Stereognosis Impaired Left Leg Light Touch Absent Sharp/Dull Absent Deep Pressure Impaired Hot/Cold Impaired Protective Sensation Absent Proprioception (Position) Absent Kinesthesia (Movement) Impaired Two-Point Discrimination Absent Tactile Localization Absent Stereognosis Absent Comments Summary Comments B protective reflex vs sharp present Deep Tendon Reflex & Clonus Assessment Deep Tendon Reflex Right Achilles Deep Tendon Reflex 2+ Normal Right Patellar Deep Tendon Reflex 2+ Normal Left Achilles Deep Tendon Reflex 2+ Normal Left Patellar Deep Tendon Reflex 1+ Diminished Ankle Clonus Right Clonus Assessment Sustained Left Clonus Assessment Sustained Muscle Tone Tone Assessment Right Lower Extremity Flexor Tone Description Moderate Hypertonicity Extensor Tone Description Moderate Hypertonicity Left Lower Extremity Flexor Tone Description Moderate Hypertonicity Extensor Tone Description Moderate Hypertonicity PT-OP-J Posture/Palpation/Skin Start: 03/08/22 17:00 Freq: Status: Active Protocol: Document 04/22/24 15:21 DCW (Rec: 04/22/24 16:02 DCW [id number]) Posture Evaluation Comments Posture Comments Sitting EOB with good core control and no instability, uses UEs for support. Recovers from most directional pushing . Improved ability to reach outside of base of support. PT-OP-M Strength Start: 08/21/22 15:38 Freq: Status: Active Protocol: Document 04/22/24 15:21 DCW (Rec: 04/22/24 16:02 DCW [id number]) Shoulder Strength Shoulder Manual Muscle Testing Right Flexion 4 Good Extension 4+ Good+ Abduction (C5) 4 Good External Rotation 3+ Fair+ Internal Rotation 4 Good Left Flexion 4 Good Extension 4+ Good+ Abduction (C5) 4- Good- External Rotation 3+ Fair+ Internal Rotation 4 Good Elbow/Forearm Strength Elbow and Forearm Manual Muscle Testing Right Flexion (C6) 4+ Good+ Extension (C7) 4- Good- Left Flexion (C6) 4 Good Extension (C7) 3+ Fair+ Hand Black Leather Buffer/Pinch Strength Hand Dominance Hand Dominance Right Hand Strength Right Black Leather Buffer (lbs) 90 Left Black Leather Buffer (lbs) 80 Hip Strength Hip Manual Muscle Testing Right Flexion (L2) 1 Trace Extension (S1) 2- Poor- Adduction 2- Poor- Left Flexion (L2) 1 Trace Extension (S1) 2- Poor- Adduction 1 Trace Knee Strength Knee Manual Muscle Testing Right Flexion (S2) 2- Poor- Extension (L3) 1 Trace Left Flexion (S2) 2- Poor- Extension (L3) 1 Trace Ankle/Foot Strength Ankle and Foot Manual Muscle Testing Right Plantarflexion (S1) 2 Poor Left Plantarflexion (S1) 1 Trace PT-OP-Q Treatments Start: 03/08/22 17:00 Freq: Status: Active Protocol: Document 07/07/24 15:21 DCW (Rec: 07/07/24 16:07 [facility] [id number]) Cardio Equipment Recumbent Stepper (Sci-Fit) Duration (Minutes) 10 Resistance 4 Seat Position Seat removed for w/c Other R anti-tip placed on SciFit base to prevent tilt Therapeutic Exercises Other Exercises short kneel Other Exercise Name short kneeling /c self thigh support Thread the needle Other Exercise Name Thread the needle on forearms/ knees Side bilateral Comments cues for cervical rotation isaac Push-ups Other Exercise Name Push-up Plus in quadruped Reps/Minutes x28, x15, x10 quadruped child's pose Other Exercise Name Child's pose on forearms fwd Reps/Minutes 3x15 sec ea Therapeutic Activity Therapeutic Activity supine>prone>quadruped Name SBA: into quadruped<> L SL, heavy pt BUE support Reps/Minutes x2 Comments L s/l > quadruped using forehead for support. ->quadruped pt uses edge of mat table to push up, successful on 4th attempt Neuro Re-Education Treatment Balance Activities Seated balance Details Seated EOB Equipment Sword fighting /c PVC (1#), Target tapping PT-OP-T Assessment and Plan Start: 03/08/22 17:00 Freq: Status: Active Protocol: Document 07/07/24 15:21 DCW (Rec: 07/07/24 16:07 [facility] [id number]) Physical Therapy Assessment Impairments Impairments Activity Tolerance,Balance, Coordination,Functional Activities,Functional Mobility ,Gait,Integument,Sensation, Soft Tissue Mobility,Strength, Tone,Transfers Goals Four Impairment Bilateral triceps weakness (R 4-, L 3+) Residential Goal (LTG) Pt to demonstrate improved triceps strength to at least 4 /5 bilaterally for elbow extension in order to improve transfer ability. LTG Duration 07/21/24 Three Impairment Pt does not have any motor function throughout bilateral LEs Short Term Goal (STG) Pt to demonstrate 1/5 trace motor contraction in at least one quad in order to begin focus on LE mobility if neural functional return begins. STG Duration Met Residential Goal (LTG) Pt to demonstrate right quad strength to at least 2/5, demonstrating movement into ROM in an antigravity position LTG Duration 07/21/24 Two Impairment Pt struggles with lateral transfer/scooting along EOB Executor Of Estate Goal (LTG) Pt to perform lateral scoot transfer using proper technique without any verbal cues 4x in a row. LTG Duration 07/21/24 One Impairment Pt does not have an appropriate home exercise program Short Term Goal (STG) Pt to be independent and compliant with an appropriate HEP STG Duration 07/21/24 Assessment Summary Assessment Returned to some seated balance activities today, pt tolerated well. Good overall response to treatment today. Physical Therapy Plan Frequency and Duration Frequency of Treatment 2x/Week Plan of Care Start Date 04/22/24 Plan of Care End Date 07/21/24 Therapeutic Interventions Therapeutic Interventions Aquatic Therapy,Balance Training,Coordination Training ,Gait Training,Home Exercise Program,Manual Therapy, Neuromuscular Re-education, Orthotic/Prosthetic Management ,Patient/Caregiver Education, Self-Care/Home Management, Sensory Integration,Soft Tissue Mobilization, Therapeutic Activities, Therapeutic Exercises, Wheelchair Management Next Visit Focus/Plan Next Note Type Treatment Note Next Visit Plan Continue PT per POC: Continue L log roll, L SL>quadruped, Lateral transfers to elevated surfaces more trunk flexion/ frequent scoots decreased assist, Wheelchair wheelies, curb management, POC: Continue UE and core strengthening, LE PROM and manual stretching. Transfers, mobility, LE ROM, pt will benefit from continued breakdown of transfers to improve efficiency and mechanics, as well as working on more seated balance EOB.
--- NOTE | 2024-07-14 16:28 | PT.OTN ---
Current Diagnoses Paraplegia, unspecified (07/14/24) Other specified personal risk factors, not elsewhere classified (07/14/24) Other specified postprocedural states (07/14/24) Physical Therapy Treatment Note PT-OP-A Visit Information Start: 03/08/22 17:00 Freq: Status: Active Protocol: Document 07/14/24 15:32 NBM (Rec: 07/14/24 16:49 NBM [id number]) Out-Patient Physical Therapy Visit Information Visit Information Visit Type Treatment Note Visit Start Time 15:30 Visit Stop Time 16:08 Visit Number [id number] Number of [employer] Visits 1 Evaluation Information Evaluation Date 03/08/22 PT-OP-B Current Condition Start: 03/08/22 17:00 Freq: Status: Active Protocol: Document 03/17/24 11:29 SAK (Rec: 03/17/24 12:23 SAK [id number]) Current Condition History of Current Condition Onset Date 12/16/21 Current Complaints Paraplegia History of Current Condition Pt is a 71 year old male with a very unfortunate medical history. Pt was hiking [place] on 12/16/21 with a friend, finished up, drive back to his friend's home to drop him off, and noticed his left leg was collapsing. By the time pt drove home, both legs were giving out and numb. Pt was suddenly paralized from the waist down, was taken to the ED, and was flown to [facility] on 12/17/21. The following day, he underwent a laminectomy to relieve pressure from the thoracic epidural hematoma which had developed following his hike, which was pressing on his spinal cord. Following surgery , pt was in recovery for a week and was then transfered to rehab for 20 days, when he was finally discharged home in a wheelchair on 01/19/22. Pt reports his surgeon informed him that it is a possibility that he gets some return of nerve function. Has experienced some changes in his right LE, but has no motor function at this time from ~ T10 down. Minimal sensory return on right side, none on left. Pt has been anxious to get in to therapy and do everything he can to help return to function. Pt's , who attended his evaluation, notes that she has been doing a lot of PROM in his legs at night to keep everything moving. Pt can feel some stretching during PROM in his right leg. Pt has additionally already started occupational therapy, and has been practicing some seated stabilization. Pt transfers with a slide board, but notes it is difficult to do into his car, because he has to transfer upward at an incline. PT-OP-C Subjective Start: 03/08/22 17:00 Freq: Status: Active Protocol: Document 07/14/24 15:32 NBM (Rec: 07/14/24 16:49 NBM [id number]) OP-PT Subjective Patient Comments Patient Comments I don't know if I'm just hallucinating or what but here lately in the last week or so my R leg feels as if it's numb. It feels as though an anesthetic was injected into it to numb it up. It doesn't hurt me or anything. L leg is starting to spasm a lot more, like R leg a year or two ago. This happens mainly when in bed when he goes from bent knees and back up to going flat again for a good 30 seconds like Im on a bucking bronco. That is uncomfortable when all that's going on. PT-OP-G Mobility & Gait Start: 03/08/22 17:00 Freq: Status: Active Protocol: Document 04/22/24 15:21 DCW (Rec: 04/22/24 16:02 DCW [id number]) OP Mobility Evaluation Transfers Bed to Chair Transfers Transfers using UE, improved with side-side movement, requires minimal verbal cues for LE positioning Car Transfers uses slide board, stabilizes front to back and prevent slide down board Functional Movements Other Functional Movements Pt performs sit->supine->prone ->quadruped with SBA 80% of the time, requires Min Ax1 20% , typically with positioning of knees or feet, or getting up into quad from prone Wheelchair Management Type of Wheelchair Manual w/c Assessment Details Unable to perform tilt back to get over curb. PT-OP-H Neuro Start: 03/08/22 17:00 Freq: Status: Active Protocol: Document 04/22/24 15:21 DCW (Rec: 04/22/24 16:02 DCW [id number]) Sensation Evaluation Gross Sensation Gross Sensation Left LE Impaired,Right LE Impaired,Trunk Impaired Sensation Description Paresthesia,Numbness,Tingling, Pins & Atkinson,Burning Dermatome Impairments L1,L2,L3,L4,L5,S1,S2,S3,S4-5 Location Details Right Leg Light Touch Impaired Sharp/Dull Impaired Deep Pressure Intact/Normal Hot/Cold Absent Protective Sensation Absent Proprioception (Position) Impaired Kinesthesia (Movement) Impaired Two-Point Discrimination Impaired Tactile Localization Impaired Stereognosis Impaired Left Leg Light Touch Absent Sharp/Dull Absent Deep Pressure Impaired Hot/Cold Impaired Protective Sensation Absent Proprioception (Position) Absent Kinesthesia (Movement) Impaired Two-Point Discrimination Absent Tactile Localization Absent Stereognosis Absent Comments Summary Comments B protective reflex vs sharp present Deep Tendon Reflex & Clonus Assessment Deep Tendon Reflex Right Achilles Deep Tendon Reflex 2+ Normal Right Patellar Deep Tendon Reflex 2+ Normal Left Achilles Deep Tendon Reflex 2+ Normal Left Patellar Deep Tendon Reflex 1+ Diminished Ankle Clonus Right Clonus Assessment Sustained Left Clonus Assessment Sustained Muscle Tone Tone Assessment Right Lower Extremity Flexor Tone Description Moderate Hypertonicity Extensor Tone Description Moderate Hypertonicity Left Lower Extremity Flexor Tone Description Moderate Hypertonicity Extensor Tone Description Moderate Hypertonicity PT-OP-J Posture/Palpation/Skin Start: 03/08/22 17:00 Freq: Status: Active Protocol: Document 04/22/24 15:21 DCW (Rec: 04/22/24 16:02 DCW [id number]) Posture Evaluation Comments Posture Comments Sitting EOB with good core control and no instability, uses UEs for support. Recovers from most directional pushing . Improved ability to reach outside of base of support. PT-OP-M Strength Start: 08/21/22 15:38 Freq: Status: Active Protocol: Document 04/22/24 15:21 DCW (Rec: 04/22/24 16:02 DCW [id number]) Shoulder Strength Shoulder Manual Muscle Testing Right Flexion 4 Good Extension 4+ Good+ Abduction (C5) 4 Good External Rotation 3+ Fair+ Internal Rotation 4 Good Left Flexion 4 Good Extension 4+ Good+ Abduction (C5) 4- Good- External Rotation 3+ Fair+ Internal Rotation 4 Good Elbow/Forearm Strength Elbow and Forearm Manual Muscle Testing Right Flexion (C6) 4+ Good+ Extension (C7) 4- Good- Left Flexion (C6) 4 Good Extension (C7) 3+ Fair+ Hand Principal Clerk/Pinch Strength Hand Dominance Hand Dominance Right Hand Strength Right Principal Clerk (lbs) 90 Left Principal Clerk (lbs) 80 Hip Strength Hip Manual Muscle Testing Right Flexion (L2) 1 Trace Extension (S1) 2- Poor- Adduction 2- Poor- Left Flexion (L2) 1 Trace Extension (S1) 2- Poor- Adduction 1 Trace Knee Strength Knee Manual Muscle Testing Right Flexion (S2) 2- Poor- Extension (L3) 1 Trace Left Flexion (S2) 2- Poor- Extension (L3) 1 Trace Ankle/Foot Strength Ankle and Foot Manual Muscle Testing Right Plantarflexion (S1) 2 Poor Left Plantarflexion (S1) 1 Trace PT-OP-Q Treatments Start: 03/08/22 17:00 Freq: Status: Active Protocol: Document 07/14/24 15:32 NB (Rec: 07/14/24 16:49 [facility] [id number]) Therapeutic Exercises Supine Exercises Core Supine Exercise Name overhead stretch to sitting EOB: 1. no LE support 2. LE support on ground Equipment Used wedge> no wedge. GB mod to max A Reps/Minutes x3 ea Other Exercises short kneel Other Exercise Name short kneeling /c self thigh support Thread the needle Other Exercise Name Thread the needle on forearms/ knees Side bilateral Equipment Used [employer] facilitates trunk rotation Comments cues for cervical rotation isaac Push-ups Other Exercise Name Push-up in quadruped> decreased distance between hands Reps/Minutes x15, x10, x15 (to fatigue) quadruped child's pose Other Exercise Name Child's pose on forearms fwd Reps/Minutes 3x15 sec ea quadruped Other Exercise Name decreased KIARA with hands ~4 in closer Resistance CGA Reps/Minutes x15, x15 Comments pt self heavy support BUEs Therapeutic Activity Therapeutic Activity Log roll, SL scoot Comments -B SL lateral scoot trunk, to get away from EOB to allow roll into supine. SBA to Log roll supine> L SL (on right side table) PT-OP-T Assessment and Plan Start: 03/08/22 17:00 Freq: Status: Active Protocol: Document 07/14/24 15:32 NB (Rec: 07/14/24 16:49 [facility] [id number]) Physical Therapy Assessment Goals Four Impairment Bilateral triceps weakness (R 4-, L 3+) Correction Goal (LTG) Pt to demonstrate improved triceps strength to at least 4 /5 bilaterally for elbow extension in order to improve transfer ability. LTG Duration 07/21/24 Three Impairment Pt does not have any motor function throughout bilateral LEs Short Term Goal (STG) Pt to demonstrate 1/5 trace motor contraction in at least one quad in order to begin focus on LE mobility if neural functional return begins. STG Duration Met [employer] Professor Goal (LTG) Pt to demonstrate right quad strength to at least 2/5, demonstrating movement into ROM in an antigravity position LTG Duration 07/21/24 Two Impairment Pt struggles with lateral transfer/scooting along EOB Correction Goal (LTG) Pt to perform lateral scoot transfer using proper technique without any verbal cues 4x in a row. LTG Duration 07/21/24 One Impairment Pt does not have an appropriate home exercise program Short Term Goal (STG) Pt to be independent and compliant with an appropriate HEP STG Duration 07/21/24 Assessment Summary Assessment Treatment focus on stretching, core, and Tricep m. strengthening in quadruped. Pt is faster to fatigue with pushups when cued for narrower base of support hands ~ 4 inches closer (under shoulders ). He requires maxA for supine with LEs dangling off mat to sitting EOB, and modA for supine w/ LEs supported on ground to sitting EOB. Physical Therapy Plan Frequency and Duration Frequency of Treatment 2x/Week Plan of Care Start Date 04/22/24 Plan of Care End Date 07/21/24 Therapeutic Interventions Therapeutic Interventions Aquatic Therapy,Balance Training,Coordination Training ,Gait Training,Home Exercise Program,Manual Therapy, Neuromuscular Re-education, Orthotic/Prosthetic Management ,Patient/Caregiver Education, Self-Care/Home Management, Sensory Integration,Soft Tissue Mobilization, Therapeutic Activities, Therapeutic Exercises, Wheelchair Management Next Visit Focus/Plan Next Note Type Treatment Note Next Visit Plan Continue PT per POC: Continue L log roll, L SL>quadruped, Lateral transfers to elevated surfaces more trunk flexion/ frequent scoots decreased assist, Wheelchair wheelies, curb management, POC: Continue UE and core strengthening, LE PROM and manual stretching. Transfers, mobility, LE ROM, pt will benefit from continued breakdown of transfers to improve efficiency and mechanics, as well as working on more seated balance EOB.
--- NOTE | 2024-07-16 16:01 | PT.OTN ---
Physical Therapy Treatment Note PT-OP-A Visit Information Start: 03/08/22 17:00 Freq: Status: Active Protocol: Document 07/16/24 13:51 NBM (Rec: 08/19/24 12:36 NBM Desktop) Out-Patient Physical Therapy Visit Information Visit Information Visit Type Treatment Note Visit Start Time 13:51 Visit Stop Time 14:36 Visit Number [id number] Number of [employer] Visits 2 Evaluation Information Evaluation Date 03/08/22 PT-OP-B Current Condition Start: 03/08/22 17:00 Freq: Status: Active Protocol: Document 03/17/24 11:29 SAK (Rec: 03/17/24 12:23 SAK [id number]) Current Condition History of Current Condition Onset Date 12/16/21 Current Complaints Paraplegia History of Current Condition Pt is a 71 year old male with a very unfortunate medical history. Pt was hiking [place] on 12/16/21 with a friend, finished up, drive back to his friend's home to drop him off, and noticed his left leg was collapsing. By the time pt drove home, both legs were giving out and numb. Pt was suddenly paralized from the waist down, was taken to the ED, and was flown to [facility] on 12/17/21. The following day, he underwent a laminectomy to relieve pressure from the thoracic epidural hematoma which had developed following his hike, which was pressing on his spinal cord. Following surgery , pt was in recovery for a week and was then transfered to rehab for 20 days, when he was finally discharged home in a wheelchair on 01/19/22. Pt reports his surgeon informed him that it is a possibility that he gets some return of nerve function. Has experienced some changes in his right LE, but has no motor function at this time from ~ T10 down. Minimal sensory return on right side, none on left. Pt has been anxious to get in to therapy and do everything he can to help return to function. Pt's , who attended his evaluation, notes that she has been doing a lot of PROM in his legs at night to keep everything moving. Pt can feel some stretching during PROM in his right leg. Pt has additionally already started occupational therapy, and has been practicing some seated stabilization. Pt transfers with a slide board, but notes it is difficult to do into his car, because he has to transfer upward at an incline. PT-OP-C Subjective Start: 03/08/22 17:00 Freq: Status: Active Protocol: Document 07/16/24 13:51 NBM (Rec: 08/19/24 12:36 NBM Desktop) OP-PT Subjective Patient Comments Patient Comments Pt reports no new changes, including L leg spasms at night which can affect sleep. PT-OP-Q Treatments Start: 03/08/22 17:00 Freq: Status: Active Protocol: Document 07/16/24 13:51 NBM (Rec: 08/19/24 12:36 NBM Desktop) Therapeutic Exercises Sitting Exercises stretch Sitting Exercise Name Hip abductors (TFL, ITB) Side bilateral Equipment Used strap looped through w/c and crossed over thighs, pt pulling ends Reps/Minutes 2 x1' Comments positive feedback response HS stretch Sitting Exercise Name seated edge of w/c: manual Hamstring/Calf stretch w/ cues for fwd lean Side bilateral Equipment Used heel resting on [employer] thigh, [employer] pulling forefoot up Reps/Minutes 3x60s ea Comments vc for form; reports feels stretch low back L side for first time ever Therapeutic Activity Therapeutic Activity Wheelchair Mobility Comments -balancing on shortened w/c tips -finding balance point between neutral and wheelchair tips while sustaining balance w/ minimal a/p movement. -fwd mobility 10 ft up on to 3 mat x20, 5/20 missed, 15/20 successful. PT-OP-T Assessment and Plan Start: 03/08/22 17:00 Freq: Status: Active Protocol: Document 07/16/24 13:51 NBM (Rec: 08/19/24 12:36 NBM Desktop) Physical Therapy Assessment Assessment Summary Assessment Treatment focus on wheelchair mobility and LE stretching. Toby requires initial direction for wheel direction for tilting backwards and for sufficient speed for forward ambulation on to mat, but demos improved ability with repetition this session. Toby reports he is repeatedly able to feel sensation on L side of low back for the first time during L hamstring stretch when cued for forward lean. He lacks carryover for seated hip abduction stretch and requires cueing today for setup with strap and wheelchair but again has positive feedback response.
--- NOTE | 2024-07-23 13:04 | PT.OTN ---
Current Diagnoses Paraplegia, unspecified (07/23/24) Other specified personal risk factors, not elsewhere classified (07/23/24) Other specified postprocedural states (07/23/24) Physical Therapy Treatment Note PT-OP-A Visit Information Start: 03/08/22 17:00 Freq: Status: Active Protocol: Document 07/23/24 12:17 DCW (Rec: 07/23/24 13:03 DCW [id number]) Out-Patient Physical Therapy Visit Information Visit Information Visit Type Progress Note Visit Start Time 12:17 Visit Stop Time 13:00 Visit Number 210 Number of CORK GRINDER Visits 0 Evaluation Information Evaluation Date 03/08/22 PT-OP-B Current Condition Start: 03/08/22 17:00 Freq: Status: Active Protocol: Document 03/17/24 11:29 SAK (Rec: 03/17/24 12:23 SAK [id number]) Current Condition History of Current Condition Onset Date 12/16/21 Current Complaints Paraplegia History of Current Condition Pt is a 71 year old male with a very unfortunate medical history. Pt was hiking [place] on 12/16/21 with a friend, finished up, drive back to his friend's home to drop him off, and noticed his left leg was collapsing. By the time pt drove home, both legs were giving out and numb. Pt was suddenly paralized from the waist down, was taken to the ED, and was flown to [facility] on 12/17/21. The following day, he underwent a laminectomy to relieve pressure from the thoracic epidural hematoma which had developed following his hike, which was pressing on his spinal cord. Following surgery , pt was in recovery for a week and was then transfered to rehab for 20 days, when he was finally discharged home in a wheelchair on 01/19/22. Pt reports his surgeon informed him that it is a possibility that he gets some return of nerve function. Has experienced some changes in his right LE, but has no motor function at this time from ~ T10 down. Minimal sensory return on right side, none on left. Pt has been anxious to get in to therapy and do everything he can to help return to function. Pt's , who attended his evaluation, notes that she has been doing a lot of PROM in his legs at night to keep everything moving. Pt can feel some stretching during PROM in his right leg. Pt has additionally already started occupational therapy, and has been practicing some seated stabilization. Pt transfers with a slide board, but notes it is difficult to do into his car, because he has to transfer upward at an incline. PT-OP-C Subjective Start: 03/08/22 17:00 Freq: Status: Active Protocol: Document 07/23/24 12:17 DCW (Rec: 07/23/24 13:03 DCW [id number]) OP-PT Subjective Patient Comments Patient Comments Pt doing well today, has been happy with recent focus on core and arm strength. PT-OP-G Mobility & Gait Start: 03/08/22 17:00 Freq: Status: Active Protocol: Document 07/23/24 12:17 DCW (Rec: 07/23/24 12:52 DCW [id number]) OP Mobility Evaluation Transfers Bed to Chair Transfers Transfers using UE, improved with side-side movement, requires minimal verbal cues for LE positioning Car Transfers uses slide board, stabilizes front to back and prevent slide down board Wheelchair Management Type of Wheelchair Manual w/c Assessment Details Unable to perform tilt back to get over curb. Able to clear 2 obstacle 60-70% of the time . PT-OP-H Neuro Start: 03/08/22 17:00 Freq: Status: Active Protocol: Document 07/23/24 12:17 DCW (Rec: 07/23/24 12:52 DCW [id number]) Sensation Evaluation Gross Sensation Gross Sensation Left LE Impaired,Right LE Impaired,Trunk Impaired Sensation Description Paresthesia,Numbness,Tingling, Pins & Emma,Burning Dermatome Impairments L1,L2,L3,L4,L5,S1,S2,S3,S4-5 Location Details Right Leg Light Touch Impaired Sharp/Dull Impaired Deep Pressure Intact/Normal Hot/Cold Absent Protective Sensation Absent Proprioception (Position) Impaired Kinesthesia (Movement) Impaired Two-Point Discrimination Impaired Tactile Localization Impaired Stereognosis Impaired Left Leg Light Touch Absent Sharp/Dull Absent Deep Pressure Impaired Hot/Cold Impaired Protective Sensation Absent Proprioception (Position) Absent Kinesthesia (Movement) Impaired Two-Point Discrimination Absent Tactile Localization Absent Stereognosis Absent Comments Summary Comments B protective reflex vs sharp present Deep Tendon Reflex & Clonus Assessment Deep Tendon Reflex Right Achilles Deep Tendon Reflex 2+ Normal Right Patellar Deep Tendon Reflex 2+ Normal Left Achilles Deep Tendon Reflex 2+ Normal Left Patellar Deep Tendon Reflex 1+ Diminished Ankle Clonus Right Clonus Assessment Sustained Left Clonus Assessment Sustained Muscle Tone Tone Assessment Right Lower Extremity Flexor Tone Description Moderate Hypertonicity Extensor Tone Description Moderate Hypertonicity Left Lower Extremity Flexor Tone Description Moderate Hypertonicity Extensor Tone Description Moderate Hypertonicity PT-OP-J Posture/Palpation/Skin Start: 03/08/22 17:00 Freq: Status: Active Protocol: Document 07/23/24 12:17 DCW (Rec: 07/23/24 12:52 DCW [id number]) Posture Evaluation Comments Posture Comments Sitting EOB with good core control and no instability, uses UEs in lap for support. Recovers from directional pushing. Improved ability to reach outside of base of support. PT-OP-M Strength Start: 08/21/22 15:38 Freq: Status: Active Protocol: Document 07/23/24 12:17 DCW (Rec: 07/23/24 12:52 DCW [id number]) Trunk Strength Trunk Manual Muscle Testing Core Stabilization Able to hold himself up in partial lean using abdominal strength for 15 second Shoulder Strength Shoulder Manual Muscle Testing Right Flexion 4+ Good+ Extension 4+ Good+ Abduction (C5) 4+ Good+ External Rotation 4- Good- Internal Rotation 4+ Good+ Left Flexion 4+ Good+ Extension 4+ Good+ Abduction (C5) 4+ Good+ External Rotation 4- Good- Internal Rotation 4+ Good+ Elbow/Forearm Strength Elbow and Forearm Manual Muscle Testing Right Flexion (C6) 4+ Good+ Extension (C7) 4+ Good+ Left Flexion (C6) 4+ Good+ Extension (C7) 4- Good- Hand [employer]/Pinch Strength Hand Dominance Hand Dominance Right Hand Strength Right [employer] (lbs) 90 Left [employer] (lbs) 85 Hip Strength Hip Manual Muscle Testing Right Flexion (L2) 1 Trace Extension (S1) 2- Poor- Adduction 2- Poor- Left Flexion (L2) 1 Trace Extension (S1) 2- Poor- Adduction 1 Trace Knee Strength Knee Manual Muscle Testing Right Flexion (S2) 2- Poor- Extension (L3) 1 Trace Left Flexion (S2) 2- Poor- Extension (L3) 1 Trace Ankle/Foot Strength Ankle and Foot Manual Muscle Testing Right Dorsiflexion (L4) 1 Trace Plantarflexion (S1) 2 Poor Left Plantarflexion (S1) 1 Trace PT-OP-Q Treatments Start: 03/08/22 17:00 Freq: Status: Active Protocol: Document 07/14/24 15:32 NBM (Rec: 07/14/24 16:49 NBM [id number]) Therapeutic Exercises Supine Exercises Core Supine Exercise Name overhead stretch to sitting EOB: 1. no LE support 2. LE support on ground Equipment Used wedge> no wedge. GB mod to max A Reps/Minutes x3 ea Other Exercises short kneel Other Exercise Name short kneeling /c self thigh support Thread the needle Other Exercise Name Thread the needle on forearms/ knees Side bilateral Equipment Used CORK GRINDER facilitates trunk rotation Comments cues for cervical rotation isaac Push-ups Other Exercise Name Push-up in quadruped> decreased distance between hands Reps/Minutes x15, x10, x15 (to fatigue) quadruped child's pose Other Exercise Name Child's pose on forearms fwd Reps/Minutes 3x15 sec ea quadruped Other Exercise Name decreased KIARA with hands ~4 in closer Resistance CGA Reps/Minutes x15, x15 Comments pt self heavy support BUEs Therapeutic Activity Therapeutic Activity Log roll, SL scoot Comments -B SL lateral scoot trunk, to get away from EOB to allow roll into supine. SBA to Log roll supine> L SL (on right side table) PT-OP-T Assessment and Plan Start: 03/08/22 17:00 Freq: Status: Active Protocol: Document 07/23/24 12:17 DCW (Rec: 07/23/24 13:03 DCW [id number]) Physical Therapy Assessment Impairments Impairments Activity Tolerance,Balance, Coordination,Functional Activities,Functional Mobility ,Gait,Integument,Sensation, Soft Tissue Mobility,Strength, Tone,Transfers Goals Four Impairment Bilateral triceps weakness (R 4-, L 3+) Mcfp Goal (LTG) Pt to demonstrate improved triceps strength to at least 4 /5 bilaterally for elbow extension in order to improve transfer ability. LTG Duration 10/21/24 - Improving Three Impairment Pt does not have any motor function throughout bilateral LEs Short Term Goal (STG) Pt to demonstrate 1/5 trace motor contraction in at least one quad in order to begin focus on LE mobility if neural functional return begins. STG Duration Met Facialist Goal (LTG) Pt to demonstrate right quad strength to at least 2/5, demonstrating movement into ROM in an antigravity position LTG Duration 10/21/24 Two Impairment Pt struggles with lateral transfer/scooting along EOB Mcfp Goal (LTG) Pt to perform lateral scoot transfer using proper technique without any verbal cues 4x in a row. LTG Duration 10/21/24 One Impairment Pt does not have an appropriate home exercise program Short Term Goal (STG) Pt to be independent and compliant with an appropriate HEP STG Duration 10/21/24 Assessment Summary Assessment Pt continues to show some mild progression in sensory and motor recovery in bilateral lower extremities following SCI, right>left. Biggest changes currently with bilateral shoulder strengthening and core stabilization. Pt will likely continue to benefit from skilled therapeutic intervention focusing on functional mobility, core strength, UE strength, NMR, w/ c mobility, and increasing activity tolerance. Physical Therapy Plan Frequency and Duration Frequency of Treatment 2x/Week Plan of Care Start Date 07/23/24 Plan of Care End Date 10/21/24 Therapeutic Interventions Therapeutic Interventions Aquatic Therapy,Balance Training,Coordination Training ,Gait Training,Home Exercise Program,Manual Therapy, Neuromuscular Re-education, Orthotic/Prosthetic Management ,Patient/Caregiver Education, Self-Care/Home Management, Sensory Integration,Soft Tissue Mobilization, Therapeutic Activities, Therapeutic Exercises, Wheelchair Management Next Visit Focus/Plan Next Note Type Treatment Note Next Visit Plan Continue PT per POC: Continue L log roll, L SL>quadruped, Lateral transfers to elevated surfaces more trunk flexion/ frequent scoots decreased assist, Wheelchair wheelies, curb management, POC: Continue UE and core strengthening, LE PROM and manual stretching. Transfers, mobility, LE ROM, pt will benefit from continued breakdown of transfers to improve efficiency and mechanics, as well as working on more seated balance EOB.
--- NOTE | 2024-07-23 13:04 | PT.OPPOC ---
Physical, Occupational & Speech Therapy At [facility] Current Diagnoses Paraplegia, unspecified (07/23/24) Other specified personal risk factors, not elsewhere classified (07/23/24) Other specified postprocedural states (07/23/24) Visit Care Team Role Provider Type Octavio Yates MD Family Provider Physician Primary Care Provider Specialty: Family Practice Address: [address] [place] [address], [address], [address] Email: [email or web address] Charleen Arias PA-C Attending Provider Advanced Therapy Assistant Referring Provider Specialty: Medical Address: [address] [place] [address], [place] [address], [place], [address] Email: [email or web address] Plan Of Care PT-OP-B Current Condition Start: 03/08/22 17:00 Freq: Status: Active Protocol: Document 03/17/24 11:29 [facility] (Rec: 03/17/24 12:23 [facility] [id number]) Current Condition History of Current Condition Onset Date 12/16/21 Current Complaints Paraplegia History of Current Condition Pt is a 71 year old male with a very unfortunate medical history. Pt was hiking [place] on 12/16/21 with a friend, finished up, drive back to his friend's home to drop him off, and noticed his left leg was collapsing. By the time pt drove home, both legs were giving out and numb. Pt was suddenly paralyzed from the waist down, was taken to the ED, and was flown to [facility] on 12/17/21. The following day, he underwent a laminectomy to relieve pressure from the thoracic epidural hematoma which had developed following his hike, which was pressing on his spinal cord. Following surgery , pt was in recovery for a week and was then transfered to rehab for 20 days, when he was finally discharged home in a wheelchair on 01/19/22. Pt reports his surgeon informed him that it is a possibility that he gets some return of nerve function. Has experienced some changes in his right LE, but has no motor function at this time from ~ T10 down. Minimal sensory return on right side, none on left. Pt has been anxious to get in to therapy and do everything he can to help return to function. Pt's , who attended his evaluation, notes that she has been doing a lot of PROM in his legs at night to keep everything moving. Pt can feel some stretching during PROM in his right leg. Pt has additionally already started occupational therapy, and has been practicing some seated stabilization. Pt transfers with a slide board, but notes it is difficult to do into his car, because he has to transfer upward at an incline. PT-OP-T Assessment and Plan Start: 03/08/22 17:00 Freq: Status: Active Protocol: Document 07/23/24 12:17 DCW (Rec: 07/23/24 13:03 DCW [id number]) Physical Therapy Assessment Impairments Impairments Activity Tolerance,Balance, Coordination,Functional Activities,Functional Mobility ,Gait,Integument,Sensation, Soft Tissue Mobility,Strength, Tone,Transfers Goals Four Impairment Bilateral triceps weakness (R 4-, L 3+) Chief Service Observer Goal (LTG) Pt to demonstrate improved triceps strength to at least 4 /5 bilaterally for elbow extension in order to improve transfer ability. LTG Duration 10/21/24 - Improving Three Impairment Pt does not have any motor function throughout bilateral LEs Short Term Goal (STG) Pt to demonstrate 1/5 trace motor contraction in at least one quad in order to begin focus on LE mobility if neural functional return begins. STG Duration Met Chief Service Observer Goal (LTG) Pt to demonstrate right quad strength to at least 2/5, demonstrating movement into ROM in an antigravity position LTG Duration 10/21/24 Two Impairment Pt struggles with lateral transfer/scooting along EOB Shelter Goal (LTG) Pt to perform lateral scoot transfer using proper technique without any verbal cues 4x in a row. LTG Duration 10/21/24 One Impairment Pt does not have an appropriate home exercise program Short Term Goal (STG) Pt to be independent and compliant with an appropriate HEP STG Duration 10/21/24 Assessment Summary Assessment Pt continues to show some mild progression in sensory and motor recovery in bilateral lower extremities following SCI, right>left. Biggest changes currently with bilateral shoulder strengthening and core stabilization. Pt will likely continue to benefit from skilled therapeutic intervention focusing on functional mobility, core strength, UE strength, NMR, w/ c mobility, and increasing activity tolerance. Physical Therapy Plan Frequency and Duration Frequency of Treatment 2x/Week Plan of Care Start Date 07/23/24 Plan of Care End Date 10/21/24 Therapeutic Interventions Therapeutic Interventions Aquatic Therapy,Balance Training,Coordination Training ,Gait Training,Home Exercise Program,Manual Therapy, Neuromuscular Re-education, Orthotic/Prosthetic Management ,Patient/Caregiver Education, Self-Care/Home Management, Sensory Integration,Soft Tissue Mobilization, Therapeutic Activities, Therapeutic Exercises, Wheelchair Management Next Visit Focus/Plan Next Note Type Treatment Note Next Visit Plan Continue PT per POC: Continue L log roll, L SL>quadruped, Lateral transfers to elevated surfaces more trunk flexion/ frequent scoots decreased assist, Wheelchair wheelies, curb management, POC: Continue UE and core strengthening, LE PROM and manual stretching. Transfers, mobility, LE ROM, pt will benefit from continued breakdown of transfers to improve efficiency and mechanics, as well as working on more seated balance EOB. Plan of Care Dates Plan of Care Start Date 07/23/24 Plan of Care End Date 10/21/24 Electronically Signed by: Jean Ruggiero, PT 07/23/24 0760 If you are in agreement with this Plan of Care, please return a signed and dated copy. I have reviewed this Plan of Care and certify that the skilled therapy services above are required to meet the patient?s needs. Physician Signature Date Printed Name and Credentials Clinical Instructor Signature Printed Name and Credentials
--- NOTE | 2024-07-27 17:05 | PT.OTN ---
Current Diagnoses Paraplegia, unspecified (07/27/24) Other specified personal risk factors, not elsewhere classified (07/27/24) Other specified postprocedural states (07/27/24) Physical Therapy Treatment Note PT-OP-A Visit Information Start: 03/08/22 17:00 Freq: Status: Active Protocol: Document 07/27/24 16:21 DCW (Rec: 07/27/24 17:05 DCW [id number]) Out-Patient Physical Therapy Visit Information Visit Information Visit Type Treatment Note Visit Start Time 16:21 Visit Stop Time 17:00 Visit Number [id number] Number of REINFORCEMENT MAKER Visits 0 Evaluation Information Evaluation Date 03/08/22 PT-OP-B Current Condition Start: 03/08/22 17:00 Freq: Status: Active Protocol: Document 03/17/24 11:29 SAK (Rec: 03/17/24 12:23 SAK [id number]) Current Condition History of Current Condition Onset Date 12/16/21 Current Complaints Paraplegia History of Current Condition Pt is a 71 year old male with a very unfortunate medical history. Pt was hiking [employer] on 12/16/21 with a friend, finished up, drive back to his friend's home to drop him off, and noticed his left leg was collapsing. By the time pt drove home, both legs were giving out and numb. Pt was suddenly paralized from the waist down, was taken to the ED, and was flown to [facility] on 12/17/21. The following day, he underwent a laminectomy to relieve pressure from the thoracic epidural hematoma which had developed following his hike, which was pressing on his spinal cord. Following surgery , pt was in recovery for a week and was then transfered to rehab for 20 days, when he was finally discharged home in a wheelchair on 01/19/22. Pt reports his surgeon informed him that it is a possibility that he gets some return of nerve function. Has experienced some changes in his right LE, but has no motor function at this time from ~ T10 down. Minimal sensory return on right side, none on left. Pt has been anxious to get in to therapy and do everything he can to help return to function. Pt's , who attended his evaluation, notes that she has been doing a lot of PROM in his legs at night to keep everything moving. Pt can feel some stretching during PROM in his right leg. Pt has additionally already started occupational therapy, and has been practicing some seated stabilization. Pt transfers with a slide board, but notes it is difficult to do into his car, because he has to transfer upward at an incline. PT-OP-C Subjective Start: 03/08/22 17:00 Freq: Status: Active Protocol: Document 07/27/24 16:21 DCW (Rec: 07/27/24 17:05 DCW [id number]) OP-PT Subjective Patient Comments Patient Comments I have so many spasms now with my right leg, especially when I switch positions or transfer. PT-OP-G Mobility & Gait Start: 03/08/22 17:00 Freq: Status: Active Protocol: Document 07/23/24 12:17 DCW (Rec: 07/23/24 12:52 DCW [id number]) OP Mobility Evaluation Transfers Bed to Chair Transfers Transfers using UE, improved with side-side movement, requires minimal verbal cues for LE positioning Car Transfers uses slide board, stabilizes front to back and prevent slide down board Wheelchair Management Type of Wheelchair Manual w/c Assessment Details Unable to perform tilt back to get over curb. Able to clear 2 obstacle 60-70% of the time . PT-OP-H Neuro Start: 03/08/22 17:00 Freq: Status: Active Protocol: Document 07/23/24 12:17 DCW (Rec: 07/23/24 12:52 DCW [id number]) Sensation Evaluation Gross Sensation Gross Sensation Left LE Impaired,Right LE Impaired,Trunk Impaired Sensation Description Paresthesia,Numbness,Tingling, Pins & [place],Burning Dermatome Impairments L1,L2,L3,L4,L5,S1,S2,S3,S4-5 Location Details Right Leg Light Touch Impaired Sharp/Dull Impaired Deep Pressure Intact/Normal Hot/Cold Absent Protective Sensation Absent Proprioception (Position) Impaired Kinesthesia (Movement) Impaired Two-Point Discrimination Impaired Tactile Localization Impaired Stereognosis Impaired Left Leg Light Touch Absent Sharp/Dull Absent Deep Pressure Impaired Hot/Cold Impaired Protective Sensation Absent Proprioception (Position) Absent Kinesthesia (Movement) Impaired Two-Point Discrimination Absent Tactile Localization Absent Stereognosis Absent Comments Summary Comments B protective reflex vs sharp present Deep Tendon Reflex & Clonus Assessment Deep Tendon Reflex Right Achilles Deep Tendon Reflex 2+ Normal Right Patellar Deep Tendon Reflex 2+ Normal Left Achilles Deep Tendon Reflex 2+ Normal Left Patellar Deep Tendon Reflex 1+ Diminished Ankle Clonus Right Clonus Assessment Sustained Left Clonus Assessment Sustained Muscle Tone Tone Assessment Right Lower Extremity Flexor Tone Description Moderate Hypertonicity Extensor Tone Description Moderate Hypertonicity Left Lower Extremity Flexor Tone Description Moderate Hypertonicity Extensor Tone Description Moderate Hypertonicity PT-OP-J Posture/Palpation/Skin Start: 03/08/22 17:00 Freq: Status: Active Protocol: Document 07/23/24 12:17 DCW (Rec: 07/23/24 12:52 DCW [id number]) Posture Evaluation Comments Posture Comments Sitting EOB with good core control and no instability, uses UEs in lap for support. Recovers from directional pushing. Improved ability to reach outside of base of support. PT-OP-M Strength Start: 08/21/22 15:38 Freq: Status: Active Protocol: Document 07/23/24 12:17 DCW (Rec: 07/23/24 12:52 DCW [id number]) Trunk Strength Trunk Manual Muscle Testing Core Stabilization Able to hold himself up in partial lean using abdominal strength for 15 second Shoulder Strength Shoulder Manual Muscle Testing Right Flexion 4+ Good+ Extension 4+ Good+ Abduction (C5) 4+ Good+ External Rotation 4- Good- Internal Rotation 4+ Good+ Left Flexion 4+ Good+ Extension 4+ Good+ Abduction (C5) 4+ Good+ External Rotation 4- Good- Internal Rotation 4+ Good+ Elbow/Forearm Strength Elbow and Forearm Manual Muscle Testing Right Flexion (C6) 4+ Good+ Extension (C7) 4+ Good+ Left Flexion (C6) 4+ Good+ Extension (C7) 4- Good- Hand Risk Management Internship/Pinch Strength Hand Dominance Hand Dominance Right Hand Strength Right Risk Management Internship (lbs) 90 Left Risk Management Internship (lbs) 85 Hip Strength Hip Manual Muscle Testing Right Flexion (L2) 1 Trace Extension (S1) 2- Poor- Adduction 2- Poor- Left Flexion (L2) 1 Trace Extension (S1) 2- Poor- Adduction 1 Trace Knee Strength Knee Manual Muscle Testing Right Flexion (S2) 2- Poor- Extension (L3) 1 Trace Left Flexion (S2) 2- Poor- Extension (L3) 1 Trace Ankle/Foot Strength Ankle and Foot Manual Muscle Testing Right Dorsiflexion (L4) 1 Trace Plantarflexion (S1) 2 Poor Left Plantarflexion (S1) 1 Trace PT-OP-Q Treatments Start: 03/08/22 17:00 Freq: Status: Active Protocol: Document 07/27/24 16:21 DCW (Rec: 07/27/24 17:05 DCW [id number]) Therapeutic Exercises Sitting Exercises Chest Press Sitting Exercise Name Seated Overhead Press Side bilateral Resistance PVC /c 1# Other Exercises short kneel Other Exercise Name short kneeling /c self thigh support Thread the needle Other Exercise Name Thread the needle on forearms/ knees Side bilateral Equipment Used REINFORCEMENT MAKER facilitates trunk rotation Comments cues for cervical rotation isaac Push-ups Other Exercise Name Push-up in quadruped> decreased distance between hands Reps/Minutes x15, x15, x12 (to fatigue) Therapeutic Activity Therapeutic Activity supine>prone>quadruped Name SBA: into quadruped<> L SL, heavy pt BUE support Reps/Minutes x2 Comments L s/l > quadruped using forehead for support. ->quadruped pt uses edge of mat table to push up, successful on 4th attempt Neuro Re-Education Treatment Balance Activities Seated balance Details Seated EOB Equipment Sword fighting /c PVC (1#), Target tapping PT-OP-T Assessment and Plan Start: 03/08/22 17:00 Freq: Status: Active Protocol: Document 07/27/24 16:21 DCW (Rec: 07/27/24 17:05 DC [id number]) Physical Therapy Assessment Impairments Impairments Activity Tolerance,Balance, Coordination,Functional Activities,Functional Mobility ,Gait,Integument,Sensation, Soft Tissue Mobility,Strength, Tone,Transfers Goals Four Impairment Bilateral triceps weakness (R 4-, L 3+) Half-Way Goal (LTG) Pt to demonstrate improved triceps strength to at least 4 /5 bilaterally for elbow extension in order to improve transfer ability. LTG Duration 10/21/24 - Improving Three Impairment Pt does not have any motor function throughout bilateral LEs Short Term Goal (STG) Pt to demonstrate 1/5 trace motor contraction in at least one quad in order to begin focus on LE mobility if neural functional return begins. STG Duration Met Food And Drug Inspector Goal (LTG) Pt to demonstrate right quad strength to at least 2/5, demonstrating movement into ROM in an antigravity position LTG Duration 10/21/24 Two Impairment Pt struggles with lateral transfer/scooting along EOB Half-Way Goal (LTG) Pt to perform lateral scoot transfer using proper technique without any verbal cues 4x in a row. LTG Duration 10/21/24 One Impairment Pt does not have an appropriate home exercise program Short Term Goal (STG) Pt to be independent and compliant with an appropriate HEP STG Duration 10/21/24 Assessment Summary Assessment Pt tolerated well, showing some improvement with seated EOB balance. Continue working on functional mobility, UE strength, and bed mobility. Physical Therapy Plan Frequency and Duration Frequency of Treatment 2x/Week Plan of Care Start Date 07/23/24 Plan of Care End Date 10/21/24 Therapeutic Interventions Therapeutic Interventions Aquatic Therapy,Balance Training,Coordination Training ,Gait Training,Home Exercise Program,Manual Therapy, Neuromuscular Re-education, Orthotic/Prosthetic Management ,Patient/Caregiver Education, Self-Care/Home Management, Sensory Integration,Soft Tissue Mobilization, Therapeutic Activities, Therapeutic Exercises, Wheelchair Management Next Visit Focus/Plan Next Note Type Treatment Note Next Visit Plan Continue PT per POC: Continue L log roll, L SL>quadruped, Lateral transfers to elevated surfaces more trunk flexion/ frequent scoots decreased assist, Wheelchair wheelies, curb management, POC: Continue UE and core strengthening, LE PROM and manual stretching. Transfers, mobility, LE ROM, pt will benefit from continued breakdown of transfers to improve efficiency and mechanics, as well as working on more seated balance EOB.
--- NOTE | 2024-07-29 17:52 | PT.OTN ---
Current Diagnoses Paraplegia, unspecified (07/29/24) Other specified personal risk factors, not elsewhere classified (07/29/24) Other specified postprocedural states (07/29/24) Physical Therapy Treatment Note PT-OP-A Visit Information Start: 03/08/22 17:00 Freq: Status: Active Protocol: Document 07/29/24 17:00 DCW (Rec: 07/29/24 17:52 DCW [id number]) Out-Patient Physical Therapy Visit Information Visit Information Visit Type Treatment Note Visit Start Time 17:00 Visit Stop Time 17:45 Visit Number [id number] Number of CERTIFIED LACTATION COUNSELOR Visits 0 Evaluation Information Evaluation Date 03/08/22 PT-OP-B Current Condition Start: 03/08/22 17:00 Freq: Status: Active Protocol: Document 03/17/24 11:29 SAK (Rec: 03/17/24 12:23 SAK [id number]) Current Condition History of Current Condition Onset Date 12/16/21 Current Complaints Paraplegia History of Current Condition Pt is a 71 year old male with a very unfortunate medical history. Pt was hiking [employer] on 12/16/21 with a friend, finished up, drive back to his friend's home to drop him off, and noticed his left leg was collapsing. By the time pt drove home, both legs were giving out and numb. Pt was suddenly paralized from the waist down, was taken to the ED, and was flown to [facility] on 12/17/21. The following day, he underwent a laminectomy to relieve pressure from the thoracic epidural hematoma which had developed following his hike, which was pressing on his spinal cord. Following surgery , pt was in recovery for a week and was then transfered to rehab for 20 days, when he was finally discharged home in a wheelchair on 01/19/22. Pt reports his surgeon informed him that it is a possibility that he gets some return of nerve function. Has experienced some changes in his right LE, but has no motor function at this time from ~ T10 down. Minimal sensory return on right side, none on left. Pt has been anxious to get in to therapy and do everything he can to help return to function. Pt's , who attended his evaluation, notes that she has been doing a lot of PROM in his legs at night to keep everything moving. Pt can feel some stretching during PROM in his right leg. Pt has additionally already started occupational therapy, and has been practicing some seated stabilization. Pt transfers with a slide board, but notes it is difficult to do into his car, because he has to transfer upward at an incline. PT-OP-C Subjective Start: 03/08/22 17:00 Freq: Status: Active Protocol: Document 07/29/24 17:00 DCW (Rec: 07/29/24 17:52 DCW [id number]) OP-PT Subjective Patient Comments Patient Comments Pt continues to have a lot more spasming in his right leg . PT-OP-G Mobility & Gait Start: 03/08/22 17:00 Freq: Status: Active Protocol: Document 07/23/24 12:17 DCW (Rec: 07/23/24 12:52 DCW [id number]) OP Mobility Evaluation Transfers Bed to Chair Transfers Transfers using UE, improved with side-side movement, requires minimal verbal cues for LE positioning Car Transfers uses slide board, stabilizes front to back and prevent slide down board Wheelchair Management Type of Wheelchair Manual w/c Assessment Details Unable to perform tilt back to get over curb. Able to clear 2 obstacle 60-70% of the time . PT-OP-H Neuro Start: 03/08/22 17:00 Freq: Status: Active Protocol: Document 07/23/24 12:17 DCW (Rec: 07/23/24 12:52 DCW [id number]) Sensation Evaluation Gross Sensation Gross Sensation Left LE Impaired,Right LE Impaired,Trunk Impaired Sensation Description Paresthesia,Numbness,Tingling, Pins & [place],Burning Dermatome Impairments L1,L2,L3,L4,L5,S1,S2,S3,S4-5 Location Details Right Leg Light Touch Impaired Sharp/Dull Impaired Deep Pressure Intact/Normal Hot/Cold Absent Protective Sensation Absent Proprioception (Position) Impaired Kinesthesia (Movement) Impaired Two-Point Discrimination Impaired Tactile Localization Impaired Stereognosis Impaired Left Leg Light Touch Absent Sharp/Dull Absent Deep Pressure Impaired Hot/Cold Impaired Protective Sensation Absent Proprioception (Position) Absent Kinesthesia (Movement) Impaired Two-Point Discrimination Absent Tactile Localization Absent Stereognosis Absent Comments Summary Comments B protective reflex vs sharp present Deep Tendon Reflex & Clonus Assessment Deep Tendon Reflex Right Achilles Deep Tendon Reflex 2+ Normal Right Patellar Deep Tendon Reflex 2+ Normal Left Achilles Deep Tendon Reflex 2+ Normal Left Patellar Deep Tendon Reflex 1+ Diminished Ankle Clonus Right Clonus Assessment Sustained Left Clonus Assessment Sustained Muscle Tone Tone Assessment Right Lower Extremity Flexor Tone Description Moderate Hypertonicity Extensor Tone Description Moderate Hypertonicity Left Lower Extremity Flexor Tone Description Moderate Hypertonicity Extensor Tone Description Moderate Hypertonicity PT-OP-J Posture/Palpation/Skin Start: 03/08/22 17:00 Freq: Status: Active Protocol: Document 07/23/24 12:17 DCW (Rec: 07/23/24 12:52 DCW [id number]) Posture Evaluation Comments Posture Comments Sitting EOB with good core control and no instability, uses UEs in lap for support. Recovers from directional pushing. Improved ability to reach outside of base of support. PT-OP-M Strength Start: 08/21/22 15:38 Freq: Status: Active Protocol: Document 07/23/24 12:17 DCW (Rec: 07/23/24 12:52 DCW [id number]) Trunk Strength Trunk Manual Muscle Testing Core Stabilization Able to hold himself up in partial lean using abdominal strength for 15 second Shoulder Strength Shoulder Manual Muscle Testing Right Flexion 4+ Good+ Extension 4+ Good+ Abduction (C5) 4+ Good+ External Rotation 4- Good- Internal Rotation 4+ Good+ Left Flexion 4+ Good+ Extension 4+ Good+ Abduction (C5) 4+ Good+ External Rotation 4- Good- Internal Rotation 4+ Good+ Elbow/Forearm Strength Elbow and Forearm Manual Muscle Testing Right Flexion (C6) 4+ Good+ Extension (C7) 4+ Good+ Left Flexion (C6) 4+ Good+ Extension (C7) 4- Good- Hand Director Industrial Relations/Pinch Strength Hand Dominance Hand Dominance Right Hand Strength Right Director Industrial Relations (lbs) 90 Left Director Industrial Relations (lbs) 85 Hip Strength Hip Manual Muscle Testing Right Flexion (L2) 1 Trace Extension (S1) 2- Poor- Adduction 2- Poor- Left Flexion (L2) 1 Trace Extension (S1) 2- Poor- Adduction 1 Trace Knee Strength Knee Manual Muscle Testing Right Flexion (S2) 2- Poor- Extension (L3) 1 Trace Left Flexion (S2) 2- Poor- Extension (L3) 1 Trace Ankle/Foot Strength Ankle and Foot Manual Muscle Testing Right Dorsiflexion (L4) 1 Trace Plantarflexion (S1) 2 Poor Left Plantarflexion (S1) 1 Trace PT-OP-Q Treatments Start: 03/08/22 17:00 Freq: Status: Active Protocol: Document 07/29/24 17:00 [facility] (Rec: 07/29/24 17:52 [facility] [id number]) Gym Equipment Shuttle Recovery Unliateral Squat Details Bilateral: ROM x5>Eccentrical control x10 ea Resistance 12# Shuttle Recovery Platform Stable Reps/Time ascending UE assist on thighs, proximation thru R ankle Bilateral Squats Details with BUE assist on thighs Resistance 25# assisted ascending, resisted descending Shuttle Recovery Platform Stable Therapeutic Exercises Prone Exercises prone over 4 pillows Prone Exercise Name supported trunk extension, hip flexor stretch Equipment Used over 4 pillows, towel roll under forehead Reps/Minutes 5 min Comments positive feedback response Other Exercises short kneel Other Exercise Name short kneeling /c self thigh support Thread the needle Other Exercise Name Thread the needle on forearms/ knees Side bilateral Equipment Used CERTIFIED LACTATION COUNSELOR facilitates trunk rotation Comments cues for cervical rotation isaac Push-ups Other Exercise Name Push-up in quadruped-> decreased distance between hands Reps/Minutes x25, x15, x10 (to fatigue) quadruped child's pose Other Exercise Name Child's pose on forearms fwd Reps/Minutes 3x15 sec ea Therapeutic Activity Therapeutic Activity supine>prone>quadruped Name SBA: into quadruped<> L SL, heavy pt BUE support Reps/Minutes x2 Comments L s/l > quadruped using forehead for support. ->quadruped pt uses edge of mat table to push up, successful on 4th attempt PT-OP-T Assessment and Plan Start: 03/08/22 17:00 Freq: Status: Active Protocol: Document 07/29/24 17:00 [facility] (Rec: 07/29/24 17:52 [facility] [id number]) Physical Therapy Assessment Impairments Impairments Activity Tolerance,Balance, Coordination,Functional Activities,Functional Mobility ,Gait,Integument,Sensation, Soft Tissue Mobility,Strength, Tone,Transfers Goals Four Impairment Bilateral triceps weakness (R 4-, L 3+) Shelter Goal (LTG) Pt to demonstrate improved triceps strength to at least 4 /5 bilaterally for elbow extension in order to improve transfer ability. LTG Duration 10/21/24 - Improving Three Impairment Pt does not have any motor function throughout bilateral LEs Short Term Goal (STG) Pt to demonstrate 1/5 trace motor contraction in at least one quad in order to begin focus on LE mobility if neural functional return begins. STG Duration Met Shelter Goal (LTG) Pt to demonstrate right quad strength to at least 2/5, demonstrating movement into ROM in an antigravity position LTG Duration 10/21/24 Two Impairment Pt struggles with lateral transfer/scooting along EOB Shelter Goal (LTG) Pt to perform lateral scoot transfer using proper technique without any verbal cues 4x in a row. LTG Duration 10/21/24 One Impairment Pt does not have an appropriate home exercise program Short Term Goal (STG) Pt to be independent and compliant with an appropriate HEP STG Duration 10/21/24 Assessment Summary Assessment Pt very happy today with ability to slow descent using left LE while on leg press. Did well with all activities today. Showing improvement in arm strength, which helps assist with transfers. Physical Therapy Plan Frequency and Duration Frequency of Treatment 2x/Week Plan of Care Start Date 07/23/24 Plan of Care End Date 10/21/24 Therapeutic Interventions Therapeutic Interventions Aquatic Therapy,Balance Training,Coordination Training ,Gait Training,Home Exercise Program,Manual Therapy, Neuromuscular Re-education, Orthotic/Prosthetic Management ,Patient/Caregiver Education, Self-Care/Home Management, Sensory Integration,Soft Tissue Mobilization, Therapeutic Activities, Therapeutic Exercises, Wheelchair Management Next Visit Focus/Plan Next Note Type Treatment Note Next Visit Plan Continue PT per POC: Continue L log roll, L SL>quadruped, Lateral transfers to elevated surfaces more trunk flexion/ frequent scoots decreased assist, Wheelchair wheelies, curb management, POC: Continue UE and core strengthening, LE PROM and manual stretching. Transfers, mobility, LE ROM, pt will benefit from continued breakdown of transfers to improve efficiency and mechanics, as well as working on more seated balance EOB.
--- NOTE | 2024-08-03 17:31 | PT.OTN ---
Current Diagnoses Paraplegia, unspecified (08/03/24) Other specified personal risk factors, not elsewhere classified (08/03/24) Other specified postprocedural states (08/03/24) Physical Therapy Treatment Note PT-OP-A Visit Information Start: 03/08/22 17:00 Freq: Status: Active Protocol: Document 08/03/24 16:18 DCW (Rec: 08/03/24 17:30 DCW [id number]) Out-Patient Physical Therapy Visit Information Visit Information Visit Type Treatment Note Visit Start Time 16:18 Visit Stop Time 17:00 Visit Number [id number] Number of VACCINES SOLUTIONS SPECIALIST Visits 0 Evaluation Information Evaluation Date 03/08/22 PT-OP-B Current Condition Start: 03/08/22 17:00 Freq: Status: Active Protocol: Document 03/17/24 11:29 SAK (Rec: 03/17/24 12:23 SAK [id number]) Current Condition History of Current Condition Onset Date 12/16/21 Current Complaints Paraplegia History of Current Condition Pt is a 71 year old male with a very unfortunate medical history. Pt was hiking [place] on 12/16/21 with a friend, finished up, drive back to his friend's home to drop him off, and noticed his left leg was collapsing. By the time pt drove home, both legs were giving out and numb. Pt was suddenly paralized from the waist down, was taken to the ED, and was flown to [facility] on 12/17/21. The following day, he underwent a laminectomy to relieve pressure from the thoracic epidural hematoma which had developed following his hike, which was pressing on his spinal cord. Following surgery , pt was in recovery for a week and was then transfered to rehab for 20 days, when he was finally discharged home in a wheelchair on 01/19/22. Pt reports his surgeon informed him that it is a possibility that he gets some return of nerve function. Has experienced some changes in his right LE, but has no motor function at this time from ~ T10 down. Minimal sensory return on right side, none on left. Pt has been anxious to get in to therapy and do everything he can to help return to function. Pt's , who attended his evaluation, notes that she has been doing a lot of PROM in his legs at night to keep everything moving. Pt can feel some stretching during PROM in his right leg. Pt has additionally already started occupational therapy, and has been practicing some seated stabilization. Pt transfers with a slide board, but notes it is difficult to do into his car, because he has to transfer upward at an incline. PT-OP-C Subjective Start: 03/08/22 17:00 Freq: Status: Active Protocol: Document 08/03/24 16:18 DCW (Rec: 08/03/24 17:30 DCW [id number]) OP-PT Subjective Patient Comments Patient Comments Pt feeling good today. PT-OP-G Mobility & Gait Start: 03/08/22 17:00 Freq: Status: Active Protocol: Document 07/23/24 12:17 DCW (Rec: 07/23/24 12:52 DCW [id number]) OP Mobility Evaluation Transfers Bed to Chair Transfers Transfers using UE, improved with side-side movement, requires minimal verbal cues for LE positioning Car Transfers uses slide board, stabilizes front to back and prevent slide down board Wheelchair Management Type of Wheelchair Manual w/c Assessment Details Unable to perform tilt back to get over curb. Able to clear 2 obstacle 60-70% of the time . PT-OP-H Neuro Start: 03/08/22 17:00 Freq: Status: Active Protocol: Document 07/23/24 12:17 DCW (Rec: 07/23/24 12:52 DCW [id number]) Sensation Evaluation Gross Sensation Gross Sensation Left LE Impaired,Right LE Impaired,Trunk Impaired Sensation Description Paresthesia,Numbness,Tingling, Pins & [place],Burning Dermatome Impairments L1,L2,L3,L4,L5,S1,S2,S3,S4-5 Location Details Right Leg Light Touch Impaired Sharp/Dull Impaired Deep Pressure Intact/Normal Hot/Cold Absent Protective Sensation Absent Proprioception (Position) Impaired Kinesthesia (Movement) Impaired Two-Point Discrimination Impaired Tactile Localization Impaired Stereognosis Impaired Left Leg Light Touch Absent Sharp/Dull Absent Deep Pressure Impaired Hot/Cold Impaired Protective Sensation Absent Proprioception (Position) Absent Kinesthesia (Movement) Impaired Two-Point Discrimination Absent Tactile Localization Absent Stereognosis Absent Comments Summary Comments B protective reflex vs sharp present Deep Tendon Reflex & Clonus Assessment Deep Tendon Reflex Right Achilles Deep Tendon Reflex 2+ Normal Right Patellar Deep Tendon Reflex 2+ Normal Left Achilles Deep Tendon Reflex 2+ Normal Left Patellar Deep Tendon Reflex 1+ Diminished Ankle Clonus Right Clonus Assessment Sustained Left Clonus Assessment Sustained Muscle Tone Tone Assessment Right Lower Extremity Flexor Tone Description Moderate Hypertonicity Extensor Tone Description Moderate Hypertonicity Left Lower Extremity Flexor Tone Description Moderate Hypertonicity Extensor Tone Description Moderate Hypertonicity PT-OP-J Posture/Palpation/Skin Start: 03/08/22 17:00 Freq: Status: Active Protocol: Document 07/23/24 12:17 DCW (Rec: 07/23/24 12:52 DCW [id number]) Posture Evaluation Comments Posture Comments Sitting EOB with good core control and no instability, uses UEs in lap for support. Recovers from directional pushing. Improved ability to reach outside of base of support. PT-OP-M Strength Start: 08/21/22 15:38 Freq: Status: Active Protocol: Document 07/23/24 12:17 DCW (Rec: 07/23/24 12:52 DCW [id number]) Trunk Strength Trunk Manual Muscle Testing Core Stabilization Able to hold himself up in partial lean using abdominal strength for 15 second Shoulder Strength Shoulder Manual Muscle Testing Right Flexion 4+ Good+ Extension 4+ Good+ Abduction (C5) 4+ Good+ External Rotation 4- Good- Internal Rotation 4+ Good+ Left Flexion 4+ Good+ Extension 4+ Good+ Abduction (C5) 4+ Good+ External Rotation 4- Good- Internal Rotation 4+ Good+ Elbow/Forearm Strength Elbow and Forearm Manual Muscle Testing Right Flexion (C6) 4+ Good+ Extension (C7) 4+ Good+ Left Flexion (C6) 4+ Good+ Extension (C7) 4- Good- Hand Nut Steamer/Pinch Strength Hand Dominance Hand Dominance Right Hand Strength Right Nut Steamer (lbs) 90 Left Nut Steamer (lbs) 85 Hip Strength Hip Manual Muscle Testing Right Flexion (L2) 1 Trace Extension (S1) 2- Poor- Adduction 2- Poor- Left Flexion (L2) 1 Trace Extension (S1) 2- Poor- Adduction 1 Trace Knee Strength Knee Manual Muscle Testing Right Flexion (S2) 2- Poor- Extension (L3) 1 Trace Left Flexion (S2) 2- Poor- Extension (L3) 1 Trace Ankle/Foot Strength Ankle and Foot Manual Muscle Testing Right Dorsiflexion (L4) 1 Trace Plantarflexion (S1) 2 Poor Left Plantarflexion (S1) 1 Trace PT-OP-Q Treatments Start: 03/08/22 17:00 Freq: Status: Active Protocol: Document 08/03/24 16:18 DCW (Rec: 08/03/24 17:30 DCW [id number]) Gym Equipment Therapeutic Ball Abdominal Curl Exercise Details Press ball into abdomen in supine Ball Size/Color Blue - 45 cm Body Position Hooklying Therapeutic Exercises Other Exercises short kneel Other Exercise Name short kneeling /c self thigh support Thread the needle Other Exercise Name Thread the needle on forearms/ knees Side bilateral Comments cues for cervical rotation isaac Push-ups Other Exercise Name Push-up in quadruped-> decreased distance between hands Reps/Minutes x25, x15, x10 (to fatigue) Therapeutic Activity Therapeutic Activity supine>prone>quadruped Name SBA: into quadruped<> L SL, heavy pt BUE support Reps/Minutes x2 Comments L s/l > quadruped using forehead for support. ->quadruped pt uses edge of mat table to push up, successful on 4th attempt Neuro Re-Education Treatment Balance Activities balloon volleyball Details Balloon Volley /c PVC Equipment 2# weights on PVC ends Comments reaching outside limits of stability PT-OP-T Assessment and Plan Start: 03/08/22 17:00 Freq: Status: Active Protocol: Document 08/03/24 16:18 DCW (Rec: 08/03/24 17:30 DCW [id number]) Physical Therapy Assessment Impairments Impairments Activity Tolerance,Balance, Coordination,Functional Activities,Functional Mobility ,Gait,Integument,Sensation, Soft Tissue Mobility,Strength, Tone,Transfers Goals Four Impairment Bilateral triceps weakness (R 4-, L 3+) Stiff Leg Operator Goal (LTG) Pt to demonstrate improved triceps strength to at least 4 /5 bilaterally for elbow extension in order to improve transfer ability. LTG Duration 10/21/24 - Improving Three Impairment Pt does not have any motor function throughout bilateral LEs Short Term Goal (STG) Pt to demonstrate 1/5 trace motor contraction in at least one quad in order to begin focus on LE mobility if neural functional return begins. STG Duration Met Care Home Goal (LTG) Pt to demonstrate right quad strength to at least 2/5, demonstrating movement into ROM in an antigravity position LTG Duration 10/21/24 Two Impairment Pt struggles with lateral transfer/scooting along EOB Care Home Goal (LTG) Pt to perform lateral scoot transfer using proper technique without any verbal cues 4x in a row. LTG Duration 10/21/24 One Impairment Pt does not have an appropriate home exercise program Short Term Goal (STG) Pt to be independent and compliant with an appropriate HEP STG Duration 10/21/24 Assessment Summary Assessment Pt did well today, continuing to progress with seated balance, doing well with reaching outside of base of support Physical Therapy Plan Frequency and Duration Frequency of Treatment 2x/Week Plan of Care Start Date 07/23/24 Plan of Care End Date 10/21/24 Therapeutic Interventions Therapeutic Interventions Aquatic Therapy,Balance Training,Coordination Training ,Gait Training,Home Exercise Program,Manual Therapy, Neuromuscular Re-education, Orthotic/Prosthetic Management ,Patient/Caregiver Education, Self-Care/Home Management, Sensory Integration,Soft Tissue Mobilization, Therapeutic Activities, Therapeutic Exercises, Wheelchair Management Next Visit Focus/Plan Next Note Type Treatment Note Next Visit Plan Continue PT per POC: Continue L log roll, L SL>quadruped, Lateral transfers to elevated surfaces more trunk flexion/ frequent scoots decreased assist, Wheelchair wheelies, curb management, POC: Continue UE and core strengthening, LE PROM and manual stretching. Transfers, mobility, LE ROM, pt will benefit from continued breakdown of transfers to improve efficiency and mechanics, as well as working on more seated balance EOB.
--- NOTE | 2024-08-05 17:04 | PT.OTN ---
Current Diagnoses Paraplegia, unspecified (08/05/24) Other specified personal risk factors, not elsewhere classified (08/05/24) Other specified postprocedural states (08/05/24) Physical Therapy Treatment Note PT-OP-A Visit Information Start: 03/08/22 17:00 Freq: Status: Active Protocol: Document 08/05/24 16:16 DCW (Rec: 08/05/24 17:04 DCW [id number]) Out-Patient Physical Therapy Visit Information Visit Information Visit Type Treatment Note Visit Start Time 16:16 Visit Stop Time 17:00 Visit Number [id number] Number of ELECTRONIC TYPESETTING MACHINE OPERATOR Visits 0 Evaluation Information Evaluation Date 03/08/22 PT-OP-B Current Condition Start: 03/08/22 17:00 Freq: Status: Active Protocol: Document 03/17/24 11:29 SAK (Rec: 03/17/24 12:23 SAK [id number]) Current Condition History of Current Condition Onset Date 12/16/21 Current Complaints Paraplegia History of Current Condition Pt is a 71 year old male with a very unfortunate medical history. Pt was hiking [employer] on 12/16/21 with a friend, finished up, drive back to his friend's home to drop him off, and noticed his left leg was collapsing. By the time pt drove home, both legs were giving out and numb. Pt was suddenly paralized from the waist down, was taken to the ED, and was flown to [facility] on 12/17/21. The following day, he underwent a laminectomy to relieve pressure from the thoracic epidural hematoma which had developed following his hike, which was pressing on his spinal cord. Following surgery , pt was in recovery for a week and was then transfered to rehab for 20 days, when he was finally discharged home in a wheelchair on 01/19/22. Pt reports his surgeon informed him that it is a possibility that he gets some return of nerve function. Has experienced some changes in his right LE, but has no motor function at this time from ~ T10 down. Minimal sensory return on right side, none on left. Pt has been anxious to get in to therapy and do everything he can to help return to function. Pt's , who attended his evaluation, notes that she has been doing a lot of PROM in his legs at night to keep everything moving. Pt can feel some stretching during PROM in his right leg. Pt has additionally already started occupational therapy, and has been practicing some seated stabilization. Pt transfers with a slide board, but notes it is difficult to do into his car, because he has to transfer upward at an incline. PT-OP-C Subjective Start: 03/08/22 17:00 Freq: Status: Active Protocol: Document 08/05/24 16:16 DCW (Rec: 08/05/24 17:04 DCW [id number]) OP-PT Subjective Patient Comments Patient Comments Pt doing well today. PT-OP-G Mobility & Gait Start: 03/08/22 17:00 Freq: Status: Active Protocol: Document 07/23/24 12:17 DCW (Rec: 07/23/24 12:52 DCW [id number]) OP Mobility Evaluation Transfers Bed to Chair Transfers Transfers using UE, improved with side-side movement, requires minimal verbal cues for LE positioning Car Transfers uses slide board, stabilizes front to back and prevent slide down board Wheelchair Management Type of Wheelchair Manual w/c Assessment Details Unable to perform tilt back to get over curb. Able to clear 2 obstacle 60-70% of the time . PT-OP-H Neuro Start: 03/08/22 17:00 Freq: Status: Active Protocol: Document 07/23/24 12:17 DCW (Rec: 07/23/24 12:52 DCW [id number]) Sensation Evaluation Gross Sensation Gross Sensation Left LE Impaired,Right LE Impaired,Trunk Impaired Sensation Description Paresthesia,Numbness,Tingling, Pins & [place],Burning Dermatome Impairments L1,L2,L3,L4,L5,S1,S2,S3,S4-5 Location Details Right Leg Light Touch Impaired Sharp/Dull Impaired Deep Pressure Intact/Normal Hot/Cold Absent Protective Sensation Absent Proprioception (Position) Impaired Kinesthesia (Movement) Impaired Two-Point Discrimination Impaired Tactile Localization Impaired Stereognosis Impaired Left Leg Light Touch Absent Sharp/Dull Absent Deep Pressure Impaired Hot/Cold Impaired Protective Sensation Absent Proprioception (Position) Absent Kinesthesia (Movement) Impaired Two-Point Discrimination Absent Tactile Localization Absent Stereognosis Absent Comments Summary Comments B protective reflex vs sharp present Deep Tendon Reflex & Clonus Assessment Deep Tendon Reflex Right Achilles Deep Tendon Reflex 2+ Normal Right Patellar Deep Tendon Reflex 2+ Normal Left Achilles Deep Tendon Reflex 2+ Normal Left Patellar Deep Tendon Reflex 1+ Diminished Ankle Clonus Right Clonus Assessment Sustained Left Clonus Assessment Sustained Muscle Tone Tone Assessment Right Lower Extremity Flexor Tone Description Moderate Hypertonicity Extensor Tone Description Moderate Hypertonicity Left Lower Extremity Flexor Tone Description Moderate Hypertonicity Extensor Tone Description Moderate Hypertonicity PT-OP-J Posture/Palpation/Skin Start: 03/08/22 17:00 Freq: Status: Active Protocol: Document 07/23/24 12:17 DCW (Rec: 07/23/24 12:52 DCW [id number]) Posture Evaluation Comments Posture Comments Sitting EOB with good core control and no instability, uses UEs in lap for support. Recovers from directional pushing. Improved ability to reach outside of base of support. PT-OP-M Strength Start: 08/21/22 15:38 Freq: Status: Active Protocol: Document 07/23/24 12:17 DCW (Rec: 07/23/24 12:52 DCW [id number]) Trunk Strength Trunk Manual Muscle Testing Core Stabilization Able to hold himself up in partial lean using abdominal strength for 15 second Shoulder Strength Shoulder Manual Muscle Testing Right Flexion 4+ Good+ Extension 4+ Good+ Abduction (C5) 4+ Good+ External Rotation 4- Good- Internal Rotation 4+ Good+ Left Flexion 4+ Good+ Extension 4+ Good+ Abduction (C5) 4+ Good+ External Rotation 4- Good- Internal Rotation 4+ Good+ Elbow/Forearm Strength Elbow and Forearm Manual Muscle Testing Right Flexion (C6) 4+ Good+ Extension (C7) 4+ Good+ Left Flexion (C6) 4+ Good+ Extension (C7) 4- Good- Hand Active Directory Systems Administrator/Pinch Strength Hand Dominance Hand Dominance Right Hand Strength Right Active Directory Systems Administrator (lbs) 90 Left Active Directory Systems Administrator (lbs) 85 Hip Strength Hip Manual Muscle Testing Right Flexion (L2) 1 Trace Extension (S1) 2- Poor- Adduction 2- Poor- Left Flexion (L2) 1 Trace Extension (S1) 2- Poor- Adduction 1 Trace Knee Strength Knee Manual Muscle Testing Right Flexion (S2) 2- Poor- Extension (L3) 1 Trace Left Flexion (S2) 2- Poor- Extension (L3) 1 Trace Ankle/Foot Strength Ankle and Foot Manual Muscle Testing Right Dorsiflexion (L4) 1 Trace Plantarflexion (S1) 2 Poor Left Plantarflexion (S1) 1 Trace PT-OP-Q Treatments Start: 03/08/22 17:00 Freq: Status: Active Protocol: Document 08/05/24 16:16 DCW (Rec: 08/05/24 17:04 [facility] [id number]) Gym Equipment Shuttle Recovery Unliateral Squat Details Bilateral: ROM x5>Eccentrical control x10 ea Resistance 12# Shuttle Recovery Platform Stable Reps/Time ascending UE assist on thighs, proximation thru R ankle Bilateral Squats Details with BUE assist on thighs Resistance 25# assisted ascending, resisted descending Shuttle Recovery Platform Stable Therapeutic Exercises Prone Exercises prone over 4 pillows Prone Exercise Name supported trunk extension, hip flexor stretch Equipment Used over 4 pillows, towel roll under forehead Comments positive feedback response Other Exercises short kneel Other Exercise Name short kneeling /c self thigh support Push-ups Other Exercise Name Push-up in quadruped Reps/Minutes x25, x15, x15 (to fatigue) Therapeutic Activity Therapeutic Activity supine>prone>quadruped Name SBA: into quadruped<> L SL, heavy pt BUE support Reps/Minutes x2 Comments L s/l > quadruped using forehead for support. ->quadruped pt uses edge of mat table to push up, successful on 4th attempt PT-OP-T Assessment and Plan Start: 03/08/22 17:00 Freq: Status: Active Protocol: Document 08/05/24 16:16 DCW (Rec: 08/05/24 17:04 [facility] [id number]) Physical Therapy Assessment Impairments Impairments Activity Tolerance,Balance, Coordination,Functional Activities,Functional Mobility ,Gait,Integument,Sensation, Soft Tissue Mobility,Strength, Tone,Transfers Goals Four Impairment Bilateral triceps weakness (R 4-, L 3+) Mcc Goal (LTG) Pt to demonstrate improved triceps strength to at least 4 /5 bilaterally for elbow extension in order to improve transfer ability. LTG Duration 10/21/24 - Improving Three Impairment Pt does not have any motor function throughout bilateral LEs Short Term Goal (STG) Pt to demonstrate 1/5 trace motor contraction in at least one quad in order to begin focus on LE mobility if neural functional return begins. STG Duration Met Mcc Goal (LTG) Pt to demonstrate right quad strength to at least 2/5, demonstrating movement into ROM in an antigravity position LTG Duration 10/21/24 Two Impairment Pt struggles with lateral transfer/scooting along EOB [employer] Goal (LTG) Pt to perform lateral scoot transfer using proper technique without any verbal cues 4x in a row. LTG Duration 10/21/24 One Impairment Pt does not have an appropriate home exercise program Short Term Goal (STG) Pt to be independent and compliant with an appropriate HEP STG Duration 10/21/24 Assessment Summary Assessment Improving tolerance to quadruped activities, increasing reps of push-ups. Tolerated prone on pillows very well, noted good stretch. Physical Therapy Plan Frequency and Duration Frequency of Treatment 2x/Week Plan of Care Start Date 07/23/24 Plan of Care End Date 10/21/24 Therapeutic Interventions Therapeutic Interventions Aquatic Therapy,Balance Training,Coordination Training ,Gait Training,Home Exercise Program,Manual Therapy, Neuromuscular Re-education, Orthotic/Prosthetic Management ,Patient/Caregiver Education, Self-Care/Home Management, Sensory Integration,Soft Tissue Mobilization, Therapeutic Activities, Therapeutic Exercises, Wheelchair Management Next Visit Focus/Plan Next Note Type Treatment Note Next Visit Plan Continue PT per POC: Continue L log roll, L SL>quadruped, Lateral transfers to elevated surfaces more trunk flexion/ frequent scoots decreased assist, Wheelchair wheelies, curb management, POC: Continue UE and core strengthening, LE PROM and manual stretching. Transfers, mobility, LE ROM, pt will benefit from continued breakdown of transfers to improve efficiency and mechanics, as well as working on more seated balance EOB.
--- NOTE | 2024-08-10 16:25 | PT.OTN ---
Current Diagnoses Paraplegia, unspecified (08/10/24) Other specified personal risk factors, not elsewhere classified (08/10/24) Other specified postprocedural states (08/10/24) Physical Therapy Treatment Note PT-OP-A Visit Information Start: 03/08/22 17:00 Freq: Status: Active Protocol: Document 08/10/24 14:37 NBM (Rec: 08/10/24 16:25 NBM [id number]) Out-Patient Physical Therapy Visit Information Visit Information Visit Type Treatment Note Visit Start Time 14:33 Visit Stop Time 15:30 Visit Number [id number] Number of SERVICE PERSON Visits 1 PT-OP-B Current Condition Start: 03/08/22 17:00 Freq: Status: Active Protocol: Document 03/17/24 11:29 SAK (Rec: 03/17/24 12:23 SAK [id number]) Current Condition History of Current Condition Onset Date 12/16/21 Current Complaints Paraplegia History of Current Condition Pt is a 71 year old male with a very unfortunate medical history. Pt was hiking [employer] on 12/16/21 with a friend, finished up, drive back to his friend's home to drop him off, and noticed his left leg was collapsing. By the time pt drove home, both legs were giving out and numb. Pt was suddenly paralized from the waist down, was taken to the ED, and was flown to [facility] on 12/17/21. The following day, he underwent a laminectomy to relieve pressure from the thoracic epidural hematoma which had developed following his hike, which was pressing on his spinal cord. Following surgery , pt was in recovery for a week and was then transfered to rehab for 20 days, when he was finally discharged home in a wheelchair on 01/19/22. Pt reports his surgeon informed him that it is a possibility that he gets some return of nerve function. Has experienced some changes in his right LE, but has no motor function at this time from ~ T10 down. Minimal sensory return on right side, none on left. Pt has been anxious to get in to therapy and do everything he can to help return to function. Pt's , who attended his evaluation, notes that she has been doing a lot of PROM in his legs at night to keep everything moving. Pt can feel some stretching during PROM in his right leg. Pt has additionally already started occupational therapy, and has been practicing some seated stabilization. Pt transfers with a slide board, but notes it is difficult to do into his car, because he has to transfer upward at an incline. PT-OP-C Subjective Start: 03/08/22 17:00 Freq: Status: Active Protocol: Document 08/10/24 14:37 NBM (Rec: 08/10/24 16:25 NBM [id number]) OP-PT Subjective Patient Comments Patient Comments Toby reports he's concerned he's not been successful losing weight, and transfers up into the passenger seat of the car are the hardest, and he's using his arms to pull him up completely. PT-OP-G Mobility & Gait Start: 03/08/22 17:00 Freq: Status: Active Protocol: Document 07/23/24 12:17 DCW (Rec: 07/23/24 12:52 DCW [id number]) OP Mobility Evaluation Transfers Bed to Chair Transfers Transfers using UE, improved with side-side movement, requires minimal verbal cues for LE positioning Car Transfers uses slide board, stabilizes front to back and prevent slide down board Wheelchair Management Type of Wheelchair Manual w/c Assessment Details Unable to perform tilt back to get over curb. Able to clear 2 obstacle 60-70% of the time . PT-OP-H Neuro Start: 03/08/22 17:00 Freq: Status: Active Protocol: Document 07/23/24 12:17 DCW (Rec: 07/23/24 12:52 DCW [id number]) Sensation Evaluation Gross Sensation Gross Sensation Left LE Impaired,Right LE Impaired,Trunk Impaired Sensation Description Paresthesia,Numbness,Tingling, Pins & Spencer,Burning Dermatome Impairments L1,L2,L3,L4,L5,S1,S2,S3,S4-5 Location Details Right Leg Light Touch Impaired Sharp/Dull Impaired Deep Pressure Intact/Normal Hot/Cold Absent Protective Sensation Absent Proprioception (Position) Impaired Kinesthesia (Movement) Impaired Two-Point Discrimination Impaired Tactile Localization Impaired Stereognosis Impaired Left Leg Light Touch Absent Sharp/Dull Absent Deep Pressure Impaired Hot/Cold Impaired Protective Sensation Absent Proprioception (Position) Absent Kinesthesia (Movement) Impaired Two-Point Discrimination Absent Tactile Localization Absent Stereognosis Absent Comments Summary Comments B protective reflex vs sharp present Deep Tendon Reflex & Clonus Assessment Deep Tendon Reflex Right Achilles Deep Tendon Reflex 2+ Normal Right Patellar Deep Tendon Reflex 2+ Normal Left Achilles Deep Tendon Reflex 2+ Normal Left Patellar Deep Tendon Reflex 1+ Diminished Ankle Clonus Right Clonus Assessment Sustained Left Clonus Assessment Sustained Muscle Tone Tone Assessment Right Lower Extremity Flexor Tone Description Moderate Hypertonicity Extensor Tone Description Moderate Hypertonicity Left Lower Extremity Flexor Tone Description Moderate Hypertonicity Extensor Tone Description Moderate Hypertonicity PT-OP-J Posture/Palpation/Skin Start: 03/08/22 17:00 Freq: Status: Active Protocol: Document 07/23/24 12:17 DCW (Rec: 07/23/24 12:52 DCW [id number]) Posture Evaluation Comments Posture Comments Sitting EOB with good core control and no instability, uses UEs in lap for support. Recovers from directional pushing. Improved ability to reach outside of base of support. PT-OP-M Strength Start: 08/21/22 15:38 Freq: Status: Active Protocol: Document 07/23/24 12:17 DCW (Rec: 07/23/24 12:52 DCW [id number]) Trunk Strength Trunk Manual Muscle Testing Core Stabilization Able to hold himself up in partial lean using abdominal strength for 15 second Shoulder Strength Shoulder Manual Muscle Testing Right Flexion 4+ Good+ Extension 4+ Good+ Abduction (C5) 4+ Good+ External Rotation 4- Good- Internal Rotation 4+ Good+ Left Flexion 4+ Good+ Extension 4+ Good+ Abduction (C5) 4+ Good+ External Rotation 4- Good- Internal Rotation 4+ Good+ Elbow/Forearm Strength Elbow and Forearm Manual Muscle Testing Right Flexion (C6) 4+ Good+ Extension (C7) 4+ Good+ Left Flexion (C6) 4+ Good+ Extension (C7) 4- Good- Hand Trout Farmer/Pinch Strength Hand Dominance Hand Dominance Right Hand Strength Right Trout Farmer (lbs) 90 Left Trout Farmer (lbs) 85 Hip Strength Hip Manual Muscle Testing Right Flexion (L2) 1 Trace Extension (S1) 2- Poor- Adduction 2- Poor- Left Flexion (L2) 1 Trace Extension (S1) 2- Poor- Adduction 1 Trace Knee Strength Knee Manual Muscle Testing Right Flexion (S2) 2- Poor- Extension (L3) 1 Trace Left Flexion (S2) 2- Poor- Extension (L3) 1 Trace Ankle/Foot Strength Ankle and Foot Manual Muscle Testing Right Dorsiflexion (L4) 1 Trace Plantarflexion (S1) 2 Poor Left Plantarflexion (S1) 1 Trace PT-OP-Q Treatments Start: 03/08/22 17:00 Freq: Status: Active Protocol: Document 08/10/24 14:37 NBM (Rec: 08/10/24 16:25 [facility] [id number]) Gym Equipment Cable Column (Body Solid) lateral pulldown Resistance 40#x15 >50# x10>60# x10 Reps/Time cues for breathwork Therapeutic Exercises Sidelying Exercises Open book Sidelying Exercise Name Open book Side right Equipment Used manual pelvic stabilization, manual hip abd stretch on R Reps/Minutes x10 AROM Comments vc for head to follow hand Sitting Exercises Triceps Extension Sitting Exercise Name Seated overhead Triceps extension Side bilateral Resistance 7# DB Equipment Used seated in w/c Reps/Minutes 2x10 (to fatigue each set) Comments Derrek at shoulders for trunk control Shoulder Extension Sitting Exercise Name Extension Side bilateral Resistance Lvl 3 Tb ([place]) Reps/Minutes x10 Comments in w/c, vc for eccentric control and breath, Derrek for trunk control Rows Sitting Exercise Name Row to tricep extension Side bilateral Resistance lvl 3 Tb ([place]) Reps/Minutes x10 Comments Derrek at shoulders for trunk control Other Exercises short kneel Other Exercise Name short kneeling /c self thigh support Thread the needle Other Exercise Name Thread the needle on forearms/ knees Side bilateral Comments cues for cervical rotation isaac , LOB x1 to R Push-ups Other Exercise Name Push-up in quadruped Reps/Minutes x25, x15, hands closer under shoulders x10 (to fatigue) Manual Therapy Treatment Manual Techniques Hamstring Stretch Type manual stretch Body Location Bilateral Hamstring m. Body Position Sitting edge of mat Reps/Duration 2x45s ea Comments Pt cued for fwd lean. RLE tone initially increases w/ positional change, but improves w/ manual R ankle pumps. Positive feedback response. Calf stretch Type manual stretch Body Location Bilateral gastrocnemius m. Body Position Sitting edge of mat Reps/Duration 2x45s ea Comments Pt seated with knee extended and overpressure applied above knee and foot manually pulled into DF. positive feedback response. Self-Care/Home Management Treatment Activities Self-Care/Home Management Activities Discussion and observation of pt transfer from w/c > passenger seat of car using L hand on transfer board handle and R hand on window frame of car door; then spouse stabilizing pt at R thigh on slider board while he repositions L hand from slider board to seat and R hand from window frame to car's grab handle to pull himself in completely. Transfer board removed, spouse lifts LEs fully into car. PT-OP-T Assessment and Plan Start: 03/08/22 17:00 Freq: Status: Active Protocol: Document 08/10/24 14:37 NBM (Rec: 08/10/24 16:25 NBM [id number]) Physical Therapy Assessment Goals Four Impairment Bilateral triceps weakness (R 4-, L 3+) Halfway Goal (LTG) Pt to demonstrate improved triceps strength to at least 4 /5 bilaterally for elbow extension in order to improve transfer ability. LTG Duration 10/21/24 - Improving Three Impairment Pt does not have any motor function throughout bilateral LEs Short Term Goal (STG) Pt to demonstrate 1/5 trace motor contraction in at least one quad in order to begin focus on LE mobility if neural functional return begins. STG Duration Met [employer]ane Bath Mixer Goal (LTG) Pt to demonstrate right quad strength to at least 2/5, demonstrating movement into ROM in an antigravity position LTG Duration 10/21/24 Two Impairment Pt struggles with lateral transfer/scooting along EOB Halfway Goal (LTG) Pt to perform lateral scoot transfer using proper technique without any verbal cues 4x in a row. LTG Duration 10/21/24 One Impairment Pt does not have an appropriate home exercise program Short Term Goal (STG) Pt to be independent and compliant with an appropriate HEP STG Duration 10/21/24 Assessment Summary Assessment Treatment focus on upper extremity and core strengthening, and transitions to and from wheelchair, sitting edge of bed, supine, sidelying, prone, and quadruped. Toby is able to perform all SBA to CGA, and obtains sitting EOB>quadruped without lower extremities crossing. Occasional cues for breath needed. He does lose balance in thread the needle x1 to R when external force applied and recovers without issue. Pt is able to progress lateral pulldown resistance by 20# from 40# to 60# today. Extra time taken to observe pt slide board transfer from wheelchair into passesnger seat of car to discuss w/ PT for improving technique (see Self-care section for details) . Physical Therapy Plan Frequency and Duration Frequency of Treatment 2x/Week Plan of Care Start Date 07/23/24 Plan of Care End Date 10/21/24 Therapeutic Interventions Therapeutic Interventions Aquatic Therapy,Balance Training,Coordination Training ,Gait Training,Home Exercise Program,Manual Therapy, Neuromuscular Re-education, Orthotic/Prosthetic Management ,Patient/Caregiver Education, Self-Care/Home Management, Sensory Integration,Soft Tissue Mobilization, Therapeutic Activities, Therapeutic Exercises, Wheelchair Management Next Visit Focus/Plan Next Note Type Treatment Note Next Visit Plan Continue PT per POC: Continue L log roll, L SL>quadruped, Lateral transfers to elevated surfaces more trunk flexion/ frequent scoots decreased assist, Wheelchair wheelies, curb management, POC: Continue UE and core strengthening, LE PROM and manual stretching. Transfers, mobility, LE ROM, pt will benefit from continued breakdown of transfers to improve efficiency and mechanics, as well as working on more seated balance EOB.
--- NOTE | 2024-08-12 17:53 | PT.OTN ---
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 Pt was hiking [employer] on 12/16/21 with a friend, finished up, drive back to his friend's home to drop him off, and noticed his left leg was collapsing. By the time pt drove home, both legs were giving out and numb. Pt was suddenly paralized from the waist down, was taken to the ED, and was flown to [facility] on 12/17/21. The following day, he underwent a laminectomy to relieve pressure from the thoracic epidural hematoma which had developed following his hike, which was pressing on his spinal cord. Following surgery , pt was in recovery for a week and was then transfered to rehab for 20 days, when he was finally discharged home in a wheelchair on 01/19/22. Pt reports his surgeon informed him that it is a possibility that he gets some return of nerve function. Has experienced some changes in his right LE, but has no motor function at this time from ~ T10 down. Minimal sensory return on right side, none on left. Pt has been anxious to get in to therapy and do everything he can to help return to function. Pt's , who attended his evaluation, notes that she has been doing a lot of PROM in his legs at night to keep everything moving. Pt can feel some stretching during PROM in his right leg. Pt has additionally already started occupational therapy, and has been practicing some seated stabilization. Pt transfers with a slide board, but notes it is difficult to do into his car, because he has to transfer upward at an incline. PT-OP-C Subjective Start: 03/08/22 17:00 Freq: Status: Active Protocol: Document 08/12/24 17:02 DCW (Rec: 08/12/24 17:53 DCW [id number]) OP-PT Subjective Patient Comments Patient Comments Pt really enjoyed using the gym equipment last visit. PT-OP-G Mobility & Gait Start: 03/08/22 17:00 Freq: Status: Active Protocol: Document 07/23/24 12:17 DCW (Rec: 07/23/24 12:52 DCW [id number]) OP Mobility Evaluation Transfers Bed to Chair Transfers Transfers using UE, improved with side-side movement, requires minimal verbal cues for LE positioning Car Transfers uses slide board, stabilizes front to back and prevent slide down board Wheelchair Management Type of Wheelchair Manual w/c Assessment Details Unable to perform tilt back to get over curb. Able to clear 2 obstacle 60-70% of the time . PT-OP-H Neuro Start: 03/08/22 17:00 Freq: Status: Active Protocol: Document 07/23/24 12:17 DCW (Rec: 07/23/24 12:52 DCW [id number]) Sensation Evaluation Gross Sensation Gross Sensation Left LE Impaired,Right LE Impaired,Trunk Impaired Sensation Description Paresthesia,Numbness,Tingling, Pins & Bethany,Burning Dermatome Impairments L1,L2,L3,L4,L5,S1,S2,S3,S4-5 Location Details Right Leg Light Touch Impaired Sharp/Dull Impaired Deep Pressure Intact/Normal Hot/Cold Absent Protective Sensation Absent Proprioception (Position) Impaired Kinesthesia (Movement) Impaired Two-Point Discrimination Impaired Tactile Localization Impaired Stereognosis Impaired Left Leg Light Touch Absent Sharp/Dull Absent Deep Pressure Impaired Hot/Cold Impaired Protective Sensation Absent Proprioception (Position) Absent Kinesthesia (Movement) Impaired Two-Point Discrimination Absent Tactile Localization Absent Stereognosis Absent Comments Summary Comments B protective reflex vs sharp present Deep Tendon Reflex & Clonus Assessment Deep Tendon Reflex Right Achilles Deep Tendon Reflex 2+ Normal Right Patellar Deep Tendon Reflex 2+ Normal Left Achilles Deep Tendon Reflex 2+ Normal Left Patellar Deep Tendon Reflex 1+ Diminished Ankle Clonus Right Clonus Assessment Sustained Left Clonus Assessment Sustained Muscle Tone Tone Assessment Right Lower Extremity Flexor Tone Description Moderate Hypertonicity Extensor Tone Description Moderate Hypertonicity Left Lower Extremity Flexor Tone Description Moderate Hypertonicity Extensor Tone Description Moderate Hypertonicity PT-OP-J Posture/Palpation/Skin Start: 03/08/22 17:00 Freq: Status: Active Protocol: Document 07/23/24 12:17 DCW (Rec: 07/23/24 12:52 DCW [id number]) Posture Evaluation Comments Posture Comments Sitting EOB with good core control and no instability, uses UEs in lap for support. Recovers from directional pushing. Improved ability to reach outside of base of support. PT-OP-M Strength Start: 08/21/22 15:38 Freq: Status: Active Protocol: Document 07/23/24 12:17 DCW (Rec: 07/23/24 12:52 DCW [id number]) Trunk Strength Trunk Manual Muscle Testing Core Stabilization Able to hold himself up in partial lean using abdominal strength for 15 second Shoulder Strength Shoulder Manual Muscle Testing Right Flexion 4+ Good+ Extension 4+ Good+ Abduction (C5) 4+ Good+ External Rotation 4- Good- Internal Rotation 4+ Good+ Left Flexion 4+ Good+ Extension 4+ Good+ Abduction (C5) 4+ Good+ External Rotation 4- Good- Internal Rotation 4+ Good+ Elbow/Forearm Strength Elbow and Forearm Manual Muscle Testing Right Flexion (C6) 4+ Good+ Extension (C7) 4+ Good+ Left Flexion (C6) 4+ Good+ Extension (C7) 4- Good- Hand Excavator Operator/Pinch Strength Hand Dominance Hand Dominance Right Hand Strength Right Excavator Operator (lbs) 90 Left Excavator Operator (lbs) 85 Hip Strength Hip Manual Muscle Testing Right Flexion (L2) 1 Trace Extension (S1) 2- Poor- Adduction 2- Poor- Left Flexion (L2) 1 Trace Extension (S1) 2- Poor- Adduction 1 Trace Knee Strength Knee Manual Muscle Testing Right Flexion (S2) 2- Poor- Extension (L3) 1 Trace Left Flexion (S2) 2- Poor- Extension (L3) 1 Trace Ankle/Foot Strength Ankle and Foot Manual Muscle Testing Right Dorsiflexion (L4) 1 Trace Plantarflexion (S1) 2 Poor Left Plantarflexion (S1) 1 Trace PT-OP-Q Treatments Start: 03/08/22 17:00 Freq: Status: Active Protocol: Document 08/12/24 17:02 [facility] (Rec: 08/12/24 17:52 [facility] [id number]) Gym Equipment Cable Column (Body Solid) Bench Press Details Seated bench press - cables under axilla bilaterally Resistance 20# to fatigue Reps/Time increase resistance next time Triceps Details Seated Triceps Press Resistance 20# x10, 25# 2x10 lateral pulldown Resistance 60# 2x10, 65# x10 Therapeutic Exercises Prone Exercises prone over 4 pillows Prone Exercise Name supported trunk extension, hip flexor stretch Equipment Used over 4 pillows, towel roll under forehead Comments positive feedback response Other Exercises short kneel Other Exercise Name short kneeling /c self thigh support Push-ups Other Exercise Name Push-up in quadruped Reps/Minutes x20, x10, x10, x10 (to fatigue ) Therapeutic Activity Therapeutic Activity supine>prone>quadruped Name SBA: into quadruped<> L SL, heavy pt BUE support Reps/Minutes x2 Comments L s/l > quadruped using forehead for support. ->quadruped pt uses edge of mat table to push up, successful on 4th attempt PT-OP-T Assessment and Plan Start: 03/08/22 17:00 Freq: Status: Active Protocol: Document 08/12/24 17:02 [facility] (Rec: 08/12/24 17:52 [facility] [id number]) Physical Therapy Assessment Assessment Summary Assessment Pt very happy to work on continued UE strengthening, felt good workout overall. Continue to focus on strengthening, balance, activity tolerance. Try to come up with different technique into vehicle to decrease need for to manually stabilize Physical Therapy Plan Frequency and Duration Frequency of Treatment 2x/Week Plan of Care Start Date 07/23/24 Plan of Care End Date 10/21/24 Therapeutic Interventions Therapeutic Interventions Aquatic Therapy,Balance Training,Coordination Training ,Gait Training,Home Exercise Program,Manual Therapy, Neuromuscular Re-education, Orthotic/Prosthetic Management ,Patient/Caregiver Education, Self-Care/Home Management, Sensory Integration,Soft Tissue Mobilization, Therapeutic Activities, Therapeutic Exercises, Wheelchair Management Next Visit Focus/Plan Next Note Type Treatment Note Next Visit Plan Continue PT per POC: Continue L log roll, L SL>quadruped, Lateral transfers to elevated surfaces more trunk flexion/ frequent scoots decreased assist, Wheelchair wheelies, curb management, POC: Continue UE and core strengthening, LE PROM and manual stretching. Transfers, mobility, LE ROM, pt will benefit from continued breakdown of transfers to improve efficiency and mechanics, as well as working on more seated balance EOB.
--- NOTE | 2024-08-18 16:01 | PT.OTN ---
Current Diagnoses Paraplegia, unspecified (08/18/24) Other specified personal risk factors, not elsewhere classified (08/18/24) Other specified postprocedural states (08/18/24) Physical Therapy Treatment Note PT-OP-A Visit Information Start: 03/08/22 17:00 Freq: Status: Active Protocol: Document 08/18/24 14:32 NBM (Rec: 08/18/24 15:52 NBM Laptop) Out-Patient Physical Therapy Visit Information Visit Information Visit Type Treatment Note Visit Start Time 14:32 Visit Stop Time 15:20 Visit Number [id number] Number of LODGE OFFICER Visits 1 Evaluation Information Evaluation Date 03/08/22 PT-OP-B Current Condition Start: 03/08/22 17:00 Freq: Status: Active Protocol: Document 03/17/24 11:29 SAK (Rec: 03/17/24 12:23 SAK [id number]) Current Condition History of Current Condition Onset Date 12/16/21 Current Complaints Paraplegia History of Current Condition Pt is a 71 year old male with a very unfortunate medical history. Pt was hiking [place] on 12/16/21 with a friend, finished up, drive back to his friend's home to drop him off, and noticed his left leg was collapsing. By the time pt drove home, both legs were giving out and numb. Pt was suddenly paralized from the waist down, was taken to the ED, and was flown to [facility] on 12/17/21. The following day, he underwent a laminectomy to relieve pressure from the thoracic epidural hematoma which had developed following his hike, which was pressing on his spinal cord. Following surgery , pt was in recovery for a week and was then transfered to rehab for 20 days, when he was finally discharged home in a wheelchair on 01/19/22. Pt reports his surgeon informed him that it is a possibility that he gets some return of nerve function. Has experienced some changes in his right LE, but has no motor function at this time from ~ T10 down. Minimal sensory return on right side, none on left. Pt has been anxious to get in to therapy and do everything he can to help return to function. Pt's , who attended his evaluation, notes that she has been doing a lot of PROM in his legs at night to keep everything moving. Pt can feel some stretching during PROM in his right leg. Pt has additionally already started occupational therapy, and has been practicing some seated stabilization. Pt transfers with a slide board, but notes it is difficult to do into his car, because he has to transfer upward at an incline. PT-OP-C Subjective Start: 03/08/22 17:00 Freq: Status: Active Protocol: Document 08/18/24 14:32 NBM (Rec: 08/18/24 15:52 NBM Laptop) OP-PT Subjective Patient Comments Patient Comments Alston reports no major aches or pains. PT-OP-G Mobility & Gait Start: 03/08/22 17:00 Freq: Status: Active Protocol: Document 07/23/24 12:17 DCW (Rec: 07/23/24 12:52 DCW [id number]) OP Mobility Evaluation Transfers Bed to Chair Transfers Transfers using UE, improved with side-side movement, requires minimal verbal cues for LE positioning Car Transfers uses slide board, stabilizes front to back and prevent slide down board Wheelchair Management Type of Wheelchair Manual w/c Assessment Details Unable to perform tilt back to get over curb. Able to clear 2 obstacle 60-70% of the time . PT-OP-H Neuro Start: 03/08/22 17:00 Freq: Status: Active Protocol: Document 07/23/24 12:17 DCW (Rec: 07/23/24 12:52 DCW [id number]) Sensation Evaluation Gross Sensation Gross Sensation Left LE Impaired,Right LE Impaired,Trunk Impaired Sensation Description Paresthesia,Numbness,Tingling, Pins & [place],Burning Dermatome Impairments L1,L2,L3,L4,L5,S1,S2,S3,S4-5 Location Details Right Leg Light Touch Impaired Sharp/Dull Impaired Deep Pressure Intact/Normal Hot/Cold Absent Protective Sensation Absent Proprioception (Position) Impaired Kinesthesia (Movement) Impaired Two-Point Discrimination Impaired Tactile Localization Impaired Stereognosis Impaired Left Leg Light Touch Absent Sharp/Dull Absent Deep Pressure Impaired Hot/Cold Impaired Protective Sensation Absent Proprioception (Position) Absent Kinesthesia (Movement) Impaired Two-Point Discrimination Absent Tactile Localization Absent Stereognosis Absent Comments Summary Comments B protective reflex vs sharp present Deep Tendon Reflex & Clonus Assessment Deep Tendon Reflex Right Achilles Deep Tendon Reflex 2+ Normal Right Patellar Deep Tendon Reflex 2+ Normal Left Achilles Deep Tendon Reflex 2+ Normal Left Patellar Deep Tendon Reflex 1+ Diminished Ankle Clonus Right Clonus Assessment Sustained Left Clonus Assessment Sustained Muscle Tone Tone Assessment Right Lower Extremity Flexor Tone Description Moderate Hypertonicity Extensor Tone Description Moderate Hypertonicity Left Lower Extremity Flexor Tone Description Moderate Hypertonicity Extensor Tone Description Moderate Hypertonicity PT-OP-J Posture/Palpation/Skin Start: 03/08/22 17:00 Freq: Status: Active Protocol: Document 07/23/24 12:17 DCW (Rec: 07/23/24 12:52 DCW [id number]) Posture Evaluation Comments Posture Comments Sitting EOB with good core control and no instability, uses UEs in lap for support. Recovers from directional pushing. Improved ability to reach outside of base of support. PT-OP-M Strength Start: 08/21/22 15:38 Freq: Status: Active Protocol: Document 07/23/24 12:17 DCW (Rec: 07/23/24 12:52 DCW [id number]) Trunk Strength Trunk Manual Muscle Testing Core Stabilization Able to hold himself up in partial lean using abdominal strength for 15 second Shoulder Strength Shoulder Manual Muscle Testing Right Flexion 4+ Good+ Extension 4+ Good+ Abduction (C5) 4+ Good+ External Rotation 4- Good- Internal Rotation 4+ Good+ Left Flexion 4+ Good+ Extension 4+ Good+ Abduction (C5) 4+ Good+ External Rotation 4- Good- Internal Rotation 4+ Good+ Elbow/Forearm Strength Elbow and Forearm Manual Muscle Testing Right Flexion (C6) 4+ Good+ Extension (C7) 4+ Good+ Left Flexion (C6) 4+ Good+ Extension (C7) 4- Good- Hand Kiln Maintenance/Pinch Strength Hand Dominance Hand Dominance Right Hand Strength Right Kiln Maintenance (lbs) 90 Left Kiln Maintenance (lbs) 85 Hip Strength Hip Manual Muscle Testing Right Flexion (L2) 1 Trace Extension (S1) 2- Poor- Adduction 2- Poor- Left Flexion (L2) 1 Trace Extension (S1) 2- Poor- Adduction 1 Trace Knee Strength Knee Manual Muscle Testing Right Flexion (S2) 2- Poor- Extension (L3) 1 Trace Left Flexion (S2) 2- Poor- Extension (L3) 1 Trace Ankle/Foot Strength Ankle and Foot Manual Muscle Testing Right Dorsiflexion (L4) 1 Trace Plantarflexion (S1) 2 Poor Left Plantarflexion (S1) 1 Trace PT-OP-Q Treatments Start: 03/08/22 17:00 Freq: Status: Active Protocol: Document 08/18/24 14:32 NBM (Rec: 08/18/24 15:52 NBM Laptop) Cardio Equipment Recumbent Stepper (Sci-Fit) Duration (Minutes) 12 Resistance 6-7 Seat Position Seat 10, Handles 8 Other Nu-Step, SPM 80, occ cues for pacing Gym Equipment Cable Column (Body Solid) Bench Press Details Seated bench press - cables under axilla bilaterally, anchor handle padde Resistance 30# to fatigue Reps/Time 2x15, x10 Triceps Details Seated Triceps Press Resistance 20# x10, 25# 2x10 Reps/Time occ cues for straight arm. lateral pulldown Resistance 60# x10, 65# x10, 70# x10 Therapeutic Activity Therapeutic Activity squat/lateral scoot transfer Name squat pivot transfer Comments w/c<> sitting Nu-Step stepper. Derrek for w/c to Nu-Step, close SBA for Nu-Step to w/c. Self-Care/Home Management Treatment Activities Self-Care/Home Management Activities Follow up discussion to 08/10/24 observation of pt transfer from w/c to passenger seat of car: per evaluating PT request pt's caregiver to attend next session w/ PT or to arrive early for PT to evaluate and improve upon transfer technique; pt expresses agreement. PT-OP-T Assessment and Plan Start: 03/08/22 17:00 Freq: Status: Active Protocol: Document 08/18/24 14:32 NBM (Rec: 08/18/24 15:52 NBM Laptop) Physical Therapy Assessment Goals Four Impairment Bilateral triceps weakness (R 4-, L 3+) Fpc Goal (LTG) Pt to demonstrate improved triceps strength to at least 4 /5 bilaterally for elbow extension in order to improve transfer ability. LTG Duration 10/21/24 - Improving Three Impairment Pt does not have any motor function throughout bilateral LEs Short Term Goal (STG) Pt to demonstrate 1/5 trace motor contraction in at least one quad in order to begin focus on LE mobility if neural functional return begins. STG Duration Met Fpc Goal (LTG) Pt to demonstrate right quad strength to at least 2/5, demonstrating movement into ROM in an antigravity position LTG Duration 10/21/24 Two Impairment Pt struggles with lateral transfer/scooting along EOB Fpc Goal (LTG) Pt to perform lateral scoot transfer using proper technique without any verbal cues 4x in a row. LTG Duration 10/21/24 One Impairment Pt does not have an appropriate home exercise program Short Term Goal (STG) Pt to be independent and compliant with an appropriate HEP STG Duration 10/21/24 Assessment Summary Assessment Treatment focus on neural priming and UE strengthening with breathwork for appropriate core engagement. Alston requires a cue for foot placement before initiating pivot transfer. Extra time taken for adjustment to new Nu -Step exercise machine. Toby demonstrates increased strength and activity tolerance with increased resistance and/or repetitions using cable machine. He requires cues for hand position with triceps extension (Goal Four) and is especially challenged when cued for neutral forearm position. He requires minimal cues for breathwork today and reports positive feedback response end of session. Physical Therapy Plan Frequency and Duration Frequency of Treatment 2x/Week Plan of Care Start Date 07/23/24 Plan of Care End Date 10/21/24 Therapeutic Interventions Therapeutic Interventions Aquatic Therapy,Balance Training,Coordination Training ,Gait Training,Home Exercise Program,Manual Therapy, Neuromuscular Re-education, Orthotic/Prosthetic Management ,Patient/Caregiver Education, Self-Care/Home Management, Sensory Integration,Soft Tissue Mobilization, Therapeutic Activities, Therapeutic Exercises, Wheelchair Management Next Visit Focus/Plan Next Note Type Treatment Note Next Visit Plan Next: Evaluate car transfer for improving technique. Continue PT per POC: Continue L log roll, L SL>quadruped, Lateral transfers to elevated surfaces more trunk flexion/ frequent scoots decreased assist, Wheelchair wheelies, curb management, POC: Continue UE and core strengthening, LE PROM and manual stretching. Transfers, mobility, LE ROM, pt will benefit from continued breakdown of transfers to improve efficiency and mechanics, as well as working on more seated balance EOB.
--- NOTE | 2024-08-20 16:17 | PT.OTN ---
Current Diagnoses Paraplegia, unspecified (08/20/24) Other specified personal risk factors, not elsewhere classified (08/20/24) Other specified postprocedural states (08/20/24) Physical Therapy Treatment Note PT-OP-A Visit Information Start: 03/08/22 17:00 Freq: Status: Active Protocol: Document 08/20/24 15:15 DCW (Rec: 08/20/24 16:17 DCW [id number]) Out-Patient Physical Therapy Visit Information Visit Information Visit Type Treatment Note Visit Start Time 15:15 Visit Stop Time 16:00 Visit Number [id number] Number of SECRETARY OF POLICE Visits 0 Evaluation Information Evaluation Date 03/08/22 PT-OP-B Current Condition Start: 03/08/22 17:00 Freq: Status: Active Protocol: Document 03/17/24 11:29 SAK (Rec: 03/17/24 12:23 SAK [id number]) Current Condition History of Current Condition Onset Date 12/16/21 Current Complaints Paraplegia History of Current Condition Pt is a 71 year old male with a very unfortunate medical history. Pt was hiking [place] on 12/16/21 with a friend, finished up, drive back to his friend's home to drop him off, and noticed his left leg was collapsing. By the time pt drove home, both legs were giving out and numb. Pt was suddenly paralized from the waist down, was taken to the ED, and was flown to [facility] on 12/17/21. The following day, he underwent a laminectomy to relieve pressure from the thoracic epidural hematoma which had developed following his hike, which was pressing on his spinal cord. Following surgery , pt was in recovery for a week and was then transfered to rehab for 20 days, when he was finally discharged home in a wheelchair on 01/19/22. Pt reports his surgeon informed him that it is a possibility that he gets some return of nerve function. Has experienced some changes in his right LE, but has no motor function at this time from ~ T10 down. Minimal sensory return on right side, none on left. Pt has been anxious to get in to therapy and do everything he can to help return to function. Pt's , who attended his evaluation, notes that she has been doing a lot of PROM in his legs at night to keep everything moving. Pt can feel some stretching during PROM in his right leg. Pt has additionally already started occupational therapy, and has been practicing some seated stabilization. Pt transfers with a slide board, but notes it is difficult to do into his car, because he has to transfer upward at an incline. PT-OP-C Subjective Start: 03/08/22 17:00 Freq: Status: Active Protocol: Document 08/20/24 15:15 DCW (Rec: 08/20/24 16:17 DCW [id number]) OP-PT Subjective Patient Comments Patient Comments Pt doing well. Pt's attends beginning of today's session to review slide-board transfer PT-OP-G Mobility & Gait Start: 03/08/22 17:00 Freq: Status: Active Protocol: Document 07/23/24 12:17 DCW (Rec: 07/23/24 12:52 DCW [id number]) OP Mobility Evaluation Transfers Bed to Chair Transfers Transfers using UE, improved with side-side movement, requires minimal verbal cues for LE positioning Car Transfers uses slide board, stabilizes front to back and prevent slide down board Wheelchair Management Type of Wheelchair Manual w/c Assessment Details Unable to perform tilt back to get over curb. Able to clear 2 obstacle 60-70% of the time . PT-OP-H Neuro Start: 03/08/22 17:00 Freq: Status: Active Protocol: Document 07/23/24 12:17 DCW (Rec: 07/23/24 12:52 DCW [id number]) Sensation Evaluation Gross Sensation Gross Sensation Left LE Impaired,Right LE Impaired,Trunk Impaired Sensation Description Paresthesia,Numbness,Tingling, Pins & [place],Burning Dermatome Impairments L1,L2,L3,L4,L5,S1,S2,S3,S4-5 Location Details Right Leg Light Touch Impaired Sharp/Dull Impaired Deep Pressure Intact/Normal Hot/Cold Absent Protective Sensation Absent Proprioception (Position) Impaired Kinesthesia (Movement) Impaired Two-Point Discrimination Impaired Tactile Localization Impaired Stereognosis Impaired Left Leg Light Touch Absent Sharp/Dull Absent Deep Pressure Impaired Hot/Cold Impaired Protective Sensation Absent Proprioception (Position) Absent Kinesthesia (Movement) Impaired Two-Point Discrimination Absent Tactile Localization Absent Stereognosis Absent Comments Summary Comments B protective reflex vs sharp present Deep Tendon Reflex & Clonus Assessment Deep Tendon Reflex Right Achilles Deep Tendon Reflex 2+ Normal Right Patellar Deep Tendon Reflex 2+ Normal Left Achilles Deep Tendon Reflex 2+ Normal Left Patellar Deep Tendon Reflex 1+ Diminished Ankle Clonus Right Clonus Assessment Sustained Left Clonus Assessment Sustained Muscle Tone Tone Assessment Right Lower Extremity Flexor Tone Description Moderate Hypertonicity Extensor Tone Description Moderate Hypertonicity Left Lower Extremity Flexor Tone Description Moderate Hypertonicity Extensor Tone Description Moderate Hypertonicity PT-OP-J Posture/Palpation/Skin Start: 03/08/22 17:00 Freq: Status: Active Protocol: Document 07/23/24 12:17 DCW (Rec: 07/23/24 12:52 DCW [id number]) Posture Evaluation Comments Posture Comments Sitting EOB with good core control and no instability, uses UEs in lap for support. Recovers from directional pushing. Improved ability to reach outside of base of support. PT-OP-M Strength Start: 08/21/22 15:38 Freq: Status: Active Protocol: Document 07/23/24 12:17 DCW (Rec: 07/23/24 12:52 DCW [id number]) Trunk Strength Trunk Manual Muscle Testing Core Stabilization Able to hold himself up in partial lean using abdominal strength for 15 second Shoulder Strength Shoulder Manual Muscle Testing Right Flexion 4+ Good+ Extension 4+ Good+ Abduction (C5) 4+ Good+ External Rotation 4- Good- Internal Rotation 4+ Good+ Left Flexion 4+ Good+ Extension 4+ Good+ Abduction (C5) 4+ Good+ External Rotation 4- Good- Internal Rotation 4+ Good+ Elbow/Forearm Strength Elbow and Forearm Manual Muscle Testing Right Flexion (C6) 4+ Good+ Extension (C7) 4+ Good+ Left Flexion (C6) 4+ Good+ Extension (C7) 4- Good- Hand Physician Coding Specialist/Pinch Strength Hand Dominance Hand Dominance Right Hand Strength Right Physician Coding Specialist (lbs) 90 Left Physician Coding Specialist (lbs) 85 Hip Strength Hip Manual Muscle Testing Right Flexion (L2) 1 Trace Extension (S1) 2- Poor- Adduction 2- Poor- Left Flexion (L2) 1 Trace Extension (S1) 2- Poor- Adduction 1 Trace Knee Strength Knee Manual Muscle Testing Right Flexion (S2) 2- Poor- Extension (L3) 1 Trace Left Flexion (S2) 2- Poor- Extension (L3) 1 Trace Ankle/Foot Strength Ankle and Foot Manual Muscle Testing Right Dorsiflexion (L4) 1 Trace Plantarflexion (S1) 2 Poor Left Plantarflexion (S1) 1 Trace PT-OP-Q Treatments Start: 03/08/22 17:00 Freq: Status: Active Protocol: Document 08/20/24 15:15 DCW (Rec: 08/20/24 16:17 DCW [id number]) Cardio Equipment Recumbent Stepper (Sci-Fit) Duration (Minutes) 10 Resistance 8 Seat Position Seat 10, Handles 9 Other Nu-Step, SPM ~50, occ cues for pacing Gym Equipment Cable Column (Body Solid) Bench Press Details Seated bench press - cables under axilla bilaterally, anchor handle padde Resistance 30# x10, 35# 2x10 lateral pulldown Resistance 70# 3x10 Therapeutic Activity Therapeutic Activity Slide Board Transfer Name w/c <-> car transfer Reps/Minutes x3 PT-OP-T Assessment and Plan Start: 03/08/22 17:00 Freq: Status: Active Protocol: Document 08/20/24 15:15 DCW (Rec: 08/20/24 16:17 DCW [id number]) Physical Therapy Assessment Assessment Summary Assessment Review of car transfer technique, pt able to stabilize himself using UEs, prevents slide down slight slope. Pt's states needing to put in minimal effort. Overall performed well . Pt otherwise tolerated treatment well today, continues to work hard on UE strengthening. Physical Therapy Plan Frequency and Duration Frequency of Treatment 2x/Week Plan of Care Start Date 07/23/24 Plan of Care End Date 10/21/24 Therapeutic Interventions Therapeutic Interventions Aquatic Therapy,Balance Training,Coordination Training ,Gait Training,Home Exercise Program,Manual Therapy, Neuromuscular Re-education, Orthotic/Prosthetic Management ,Patient/Caregiver Education, Self-Care/Home Management, Sensory Integration,Soft Tissue Mobilization, Therapeutic Activities, Therapeutic Exercises, Wheelchair Management Next Visit Focus/Plan Next Note Type Treatment Note Next Visit Plan Continue PT per POC: Continue L log roll, L SL>quadruped, Lateral transfers to elevated surfaces more trunk flexion/ frequent scoots decreased assist, Wheelchair wheelies, curb management, POC: Continue UE and core strengthening, LE PROM and manual stretching. Transfers, mobility, LE ROM, pt will benefit from continued breakdown of transfers to improve efficiency and mechanics, as well as working on more seated balance EOB.
--- NOTE | 2024-08-24 17:52 | PT.OTN ---
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 Pt was hiking [place] on 12/16/21 with a friend, finished up, drive back to his friend's home to drop him off, and noticed his left leg was collapsing. By the time pt drove home, both legs were giving out and numb. Pt was suddenly paralized from the waist down, was taken to the ED, and was flown to [facility] on 12/17/21. The following day, he underwent a laminectomy to relieve pressure from the thoracic epidural hematoma which had developed following his hike, which was pressing on his spinal cord. Following surgery , pt was in recovery for a week and was then transfered to rehab for 20 days, when he was finally discharged home in a wheelchair on 01/19/22. Pt reports his surgeon informed him that it is a possibility that he gets some return of nerve function. Has experienced some changes in his right LE, but has no motor function at this time from ~ T10 down. Minimal sensory return on right side, none on left. Pt has been anxious to get in to therapy and do everything he can to help return to function. Pt's , who attended his evaluation, notes that she has been doing a lot of PROM in his legs at night to keep everything moving. Pt can feel some stretching during PROM in his right leg. Pt has additionally already started occupational therapy, and has been practicing some seated stabilization. Pt transfers with a slide board, but notes it is difficult to do into his car, because he has to transfer upward at an incline. PT-OP-C Subjective Start: 03/08/22 17:00 Freq: Status: Active Protocol: Document 08/24/24 17:03 DCW (Rec: 08/24/24 17:52 DCW [id number]) OP-PT Subjective Patient Comments Patient Comments Reports he purchased [employer], an outdoor, off-road electric four-week accessibility bike. PT-OP-G Mobility & Gait Start: 03/08/22 17:00 Freq: Status: Active Protocol: Document 07/23/24 12:17 DCW (Rec: 07/23/24 12:52 DCW [id number]) OP Mobility Evaluation Transfers Bed to Chair Transfers Transfers using UE, improved with side-side movement, requires minimal verbal cues for LE positioning Car Transfers uses slide board, stabilizes front to back and prevent slide down board Wheelchair Management Type of Wheelchair Manual w/c Assessment Details Unable to perform tilt back to get over curb. Able to clear 2 obstacle 60-70% of the time . PT-OP-H Neuro Start: 03/08/22 17:00 Freq: Status: Active Protocol: Document 07/23/24 12:17 DCW (Rec: 07/23/24 12:52 DCW [id number]) Sensation Evaluation Gross Sensation Gross Sensation Left LE Impaired,Right LE Impaired,Trunk Impaired Sensation Description Paresthesia,Numbness,Tingling, Pins & [place],Burning Dermatome Impairments L1,L2,L3,L4,L5,S1,S2,S3,S4-5 Location Details Right Leg Light Touch Impaired Sharp/Dull Impaired Deep Pressure Intact/Normal Hot/Cold Absent Protective Sensation Absent Proprioception (Position) Impaired Kinesthesia (Movement) Impaired Two-Point Discrimination Impaired Tactile Localization Impaired Stereognosis Impaired Left Leg Light Touch Absent Sharp/Dull Absent Deep Pressure Impaired Hot/Cold Impaired Protective Sensation Absent Proprioception (Position) Absent Kinesthesia (Movement) Impaired Two-Point Discrimination Absent Tactile Localization Absent Stereognosis Absent Comments Summary Comments B protective reflex vs sharp present Deep Tendon Reflex & Clonus Assessment Deep Tendon Reflex Right Achilles Deep Tendon Reflex 2+ Normal Right Patellar Deep Tendon Reflex 2+ Normal Left Achilles Deep Tendon Reflex 2+ Normal Left Patellar Deep Tendon Reflex 1+ Diminished Ankle Clonus Right Clonus Assessment Sustained Left Clonus Assessment Sustained Muscle Tone Tone Assessment Right Lower Extremity Flexor Tone Description Moderate Hypertonicity Extensor Tone Description Moderate Hypertonicity Left Lower Extremity Flexor Tone Description Moderate Hypertonicity Extensor Tone Description Moderate Hypertonicity PT-OP-J Posture/Palpation/Skin Start: 03/08/22 17:00 Freq: Status: Active Protocol: Document 07/23/24 12:17 DCW (Rec: 07/23/24 12:52 DCW [id number]) Posture Evaluation Comments Posture Comments Sitting EOB with good core control and no instability, uses UEs in lap for support. Recovers from directional pushing. Improved ability to reach outside of base of support. PT-OP-M Strength Start: 08/21/22 15:38 Freq: Status: Active Protocol: Document 07/23/24 12:17 DCW (Rec: 07/23/24 12:52 DCW [id number]) Trunk Strength Trunk Manual Muscle Testing Core Stabilization Able to hold himself up in partial lean using abdominal strength for 15 second Shoulder Strength Shoulder Manual Muscle Testing Right Flexion 4+ Good+ Extension 4+ Good+ Abduction (C5) 4+ Good+ External Rotation 4- Good- Internal Rotation 4+ Good+ Left Flexion 4+ Good+ Extension 4+ Good+ Abduction (C5) 4+ Good+ External Rotation 4- Good- Internal Rotation 4+ Good+ Elbow/Forearm Strength Elbow and Forearm Manual Muscle Testing Right Flexion (C6) 4+ Good+ Extension (C7) 4+ Good+ Left Flexion (C6) 4+ Good+ Extension (C7) 4- Good- Hand Housing Installer/Pinch Strength Hand Dominance Hand Dominance Right Hand Strength Right Housing Installer (lbs) 90 Left Housing Installer (lbs) 85 Hip Strength Hip Manual Muscle Testing Right Flexion (L2) 1 Trace Extension (S1) 2- Poor- Adduction 2- Poor- Left Flexion (L2) 1 Trace Extension (S1) 2- Poor- Adduction 1 Trace Knee Strength Knee Manual Muscle Testing Right Flexion (S2) 2- Poor- Extension (L3) 1 Trace Left Flexion (S2) 2- Poor- Extension (L3) 1 Trace Ankle/Foot Strength Ankle and Foot Manual Muscle Testing Right Dorsiflexion (L4) 1 Trace Plantarflexion (S1) 2 Poor Left Plantarflexion (S1) 1 Trace PT-OP-Q Treatments Start: 03/08/22 17:00 Freq: Status: Active Protocol: Document 08/24/24 17:03 DCW (Rec: 08/24/24 17:52 [facility] [id number]) Cardio Equipment Recumbent Stepper (Sci-Fit) Duration (Minutes) 10 Resistance 8 Seat Position Seat 10, Handles 9 Other Nu-Step, SPM 50-60, occ cues for pacing Therapeutic Exercises Prone Exercises prone over 4 pillows Prone Exercise Name supported trunk extension, hip flexor stretch Equipment Used over 4 pillows, towel roll under forehead Comments positive feedback response Other Exercises short kneel Other Exercise Name short kneeling /c self thigh support Thread the needle Other Exercise Name Thread the needle on forearms/ knees Side bilateral Comments cues for cervical rotation isaac , LOB x1 to R Push-ups Other Exercise Name Push-up in quadruped Reps/Minutes x25, x15, x12 (to fatigue) Therapeutic Activity Therapeutic Activity supine>prone>quadruped Name SBA: into quadruped<> L SL, heavy pt BUE support Reps/Minutes x2 Comments L s/l > quadruped using forehead for support. ->quadruped pt uses edge of mat table to push up, successful on 4th attempt PT-OP-T Assessment and Plan Start: 03/08/22 17:00 Freq: Status: Active Protocol: Document 08/24/24 17:03 DCW (Rec: 08/24/24 17:52 [facility] [id number]) Physical Therapy Assessment Impairments Impairments Activity Tolerance,Balance, Coordination,Functional Activities,Functional Mobility ,Gait,Integument,Sensation, Soft Tissue Mobility,Strength, Tone,Transfers Goals Four Impairment Bilateral triceps weakness (R 4-, L 3+) Pta Goal (LTG) Pt to demonstrate improved triceps strength to at least 4 /5 bilaterally for elbow extension in order to improve transfer ability. LTG Duration 10/21/24 - Improving Three Impairment Pt does not have any motor function throughout bilateral LEs Short Term Goal (STG) Pt to demonstrate 1/5 trace motor contraction in at least one quad in order to begin focus on LE mobility if neural functional return begins. STG Duration Met Pta Goal (LTG) Pt to demonstrate right quad strength to at least 2/5, demonstrating movement into ROM in an antigravity position LTG Duration 10/21/24 Two Impairment Pt struggles with lateral transfer/scooting along EOB Halfway Goal (LTG) Pt to perform lateral scoot transfer using proper technique without any verbal cues 4x in a row. LTG Duration 10/21/24 One Impairment Pt does not have an appropriate home exercise program Short Term Goal (STG) Pt to be independent and compliant with an appropriate HEP STG Duration 10/21/24 Assessment Summary Assessment Pt tolerated well, had a good stretch with prone on pillows. Unable to replicate that at home. Hoping to get new power chair/off-road bike within the next few days. Physical Therapy Plan Frequency and Duration Frequency of Treatment 2x/Week Plan of Care Start Date 07/23/24 Plan of Care End Date 10/21/24 Therapeutic Interventions Therapeutic Interventions Aquatic Therapy,Balance Training,Coordination Training ,Gait Training,Home Exercise Program,Manual Therapy, Neuromuscular Re-education, Orthotic/Prosthetic Management ,Patient/Caregiver Education, Self-Care/Home Management, Sensory Integration,Soft Tissue Mobilization, Therapeutic Activities, Therapeutic Exercises, Wheelchair Management Next Visit Focus/Plan Next Note Type Treatment Note Next Visit Plan Continue PT per POC: Continue L log roll, L SL>quadruped, Lateral transfers to elevated surfaces more trunk flexion/ frequent scoots decreased assist, Wheelchair wheelies, curb management, POC: Continue UE and core strengthening, LE PROM and manual stretching. Transfers, mobility, LE ROM, pt will benefit from continued breakdown of transfers to improve efficiency and mechanics, as well as working on more seated balance EOB.
--- NOTE | 2024-08-26 17:53 | PT.OTN ---
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 Pt was hiking [place] on 12/16/21 with a friend, finished up, drive back to his friend's home to drop him off, and noticed his left leg was collapsing. By the time pt drove home, both legs were giving out and numb. Pt was suddenly paralized from the waist down, was taken to the ED, and was flown to [facility] on 12/17/21. The following day, he underwent a laminectomy to relieve pressure from the thoracic epidural hematoma which had developed following his hike, which was pressing on his spinal cord. Following surgery , pt was in recovery for a week and was then transfered to rehab for 20 days, when he was finally discharged home in a wheelchair on 01/19/22. Pt reports his surgeon informed him that it is a possibility that he gets some return of nerve function. Has experienced some changes in his right LE, but has no motor function at this time from ~ T10 down. Minimal sensory return on right side, none on left. Pt has been anxious to get in to therapy and do everything he can to help return to function. Pt's , who attended his evaluation, notes that she has been doing a lot of PROM in his legs at night to keep everything moving. Pt can feel some stretching during PROM in his right leg. Pt has additionally already started occupational therapy, and has been practicing some seated stabilization. Pt transfers with a slide board, but notes it is difficult to do into his car, because he has to transfer upward at an incline. PT-OP-C Subjective Start: 03/08/22 17:00 Freq: Status: Active Protocol: Document 08/26/24 17:02 DCW (Rec: 08/26/24 17:53 DCW [id number]) OP-PT Subjective Patient Comments Patient Comments Pt feeling good today, happy with the weather, looking forward to getting to spend more time outside when his new Rig gets here. PT-OP-G Mobility & Gait Start: 03/08/22 17:00 Freq: Status: Active Protocol: Document 07/23/24 12:17 DCW (Rec: 07/23/24 12:52 DCW [id number]) OP Mobility Evaluation Transfers Bed to Chair Transfers Transfers using UE, improved with side-side movement, requires minimal verbal cues for LE positioning Car Transfers uses slide board, stabilizes front to back and prevent slide down board Wheelchair Management Type of Wheelchair Manual w/c Assessment Details Unable to perform tilt back to get over curb. Able to clear 2 obstacle 60-70% of the time . PT-OP-H Neuro Start: 03/08/22 17:00 Freq: Status: Active Protocol: Document 07/23/24 12:17 DCW (Rec: 07/23/24 12:52 DCW [id number]) Sensation Evaluation Gross Sensation Gross Sensation Left LE Impaired,Right LE Impaired,Trunk Impaired Sensation Description Paresthesia,Numbness,Tingling, Pins & [place],Burning Dermatome Impairments L1,L2,L3,L4,L5,S1,S2,S3,S4-5 Location Details Right Leg Light Touch Impaired Sharp/Dull Impaired Deep Pressure Intact/Normal Hot/Cold Absent Protective Sensation Absent Proprioception (Position) Impaired Kinesthesia (Movement) Impaired Two-Point Discrimination Impaired Tactile Localization Impaired Stereognosis Impaired Left Leg Light Touch Absent Sharp/Dull Absent Deep Pressure Impaired Hot/Cold Impaired Protective Sensation Absent Proprioception (Position) Absent Kinesthesia (Movement) Impaired Two-Point Discrimination Absent Tactile Localization Absent Stereognosis Absent Comments Summary Comments B protective reflex vs sharp present Deep Tendon Reflex & Clonus Assessment Deep Tendon Reflex Right Achilles Deep Tendon Reflex 2+ Normal Right Patellar Deep Tendon Reflex 2+ Normal Left Achilles Deep Tendon Reflex 2+ Normal Left Patellar Deep Tendon Reflex 1+ Diminished Ankle Clonus Right Clonus Assessment Sustained Left Clonus Assessment Sustained Muscle Tone Tone Assessment Right Lower Extremity Flexor Tone Description Moderate Hypertonicity Extensor Tone Description Moderate Hypertonicity Left Lower Extremity Flexor Tone Description Moderate Hypertonicity Extensor Tone Description Moderate Hypertonicity PT-OP-J Posture/Palpation/Skin Start: 03/08/22 17:00 Freq: Status: Active Protocol: Document 07/23/24 12:17 DCW (Rec: 07/23/24 12:52 DCW [id number]) Posture Evaluation Comments Posture Comments Sitting EOB with good core control and no instability, uses UEs in lap for support. Recovers from directional pushing. Improved ability to reach outside of base of support. PT-OP-M Strength Start: 08/21/22 15:38 Freq: Status: Active Protocol: Document 07/23/24 12:17 DCW (Rec: 07/23/24 12:52 DCW [id number]) Trunk Strength Trunk Manual Muscle Testing Core Stabilization Able to hold himself up in partial lean using abdominal strength for 15 second Shoulder Strength Shoulder Manual Muscle Testing Right Flexion 4+ Good+ Extension 4+ Good+ Abduction (C5) 4+ Good+ External Rotation 4- Good- Internal Rotation 4+ Good+ Left Flexion 4+ Good+ Extension 4+ Good+ Abduction (C5) 4+ Good+ External Rotation 4- Good- Internal Rotation 4+ Good+ Elbow/Forearm Strength Elbow and Forearm Manual Muscle Testing Right Flexion (C6) 4+ Good+ Extension (C7) 4+ Good+ Left Flexion (C6) 4+ Good+ Extension (C7) 4- Good- Hand Sign Wirer/Pinch Strength Hand Dominance Hand Dominance Right Hand Strength Right Sign Wirer (lbs) 90 Left Sign Wirer (lbs) 85 Hip Strength Hip Manual Muscle Testing Right Flexion (L2) 1 Trace Extension (S1) 2- Poor- Adduction 2- Poor- Left Flexion (L2) 1 Trace Extension (S1) 2- Poor- Adduction 1 Trace Knee Strength Knee Manual Muscle Testing Right Flexion (S2) 2- Poor- Extension (L3) 1 Trace Left Flexion (S2) 2- Poor- Extension (L3) 1 Trace Ankle/Foot Strength Ankle and Foot Manual Muscle Testing Right Dorsiflexion (L4) 1 Trace Plantarflexion (S1) 2 Poor Left Plantarflexion (S1) 1 Trace PT-OP-Q Treatments Start: 03/08/22 17:00 Freq: Status: Active Protocol: Document 08/26/24 17:02 DCW (Rec: 08/26/24 17:52 DCW [id number]) Cardio Equipment Recumbent Stepper (Sci-Fit) Duration (Minutes) 10 Resistance 8 Seat Position Seat 10, Handles 9 Other Nu-Step, SPM 50-60, occ cues for pacing Gym Equipment Cable Column (Body Solid) cable row Resistance 20# x10, 30# x10, 40# x15 Reps/Time PT assist to maintain upright posture lateral pulldown Details Lat Pulldown Resistance 70# 3x10 Self-Care/Home Management Treatment Education Other Education Education on pt's arm movement to change center of gravity resulting in trunk flexion or extension. Discussed ways to change his home activities to make this more of a core/back workout. PT-OP-T Assessment and Plan Start: 03/08/22 17:00 Freq: Status: Active Protocol: Document 08/26/24 17:02 DCW (Rec: 08/26/24 17:52 DCW [id number]) Physical Therapy Assessment Impairments Impairments Activity Tolerance,Balance, Coordination,Functional Activities,Functional Mobility ,Gait,Integument,Sensation, Soft Tissue Mobility,Strength, Tone,Transfers Goals Four Impairment Bilateral triceps weakness (R 4-, L 3+) Long-Term Goal (LTG) Pt to demonstrate improved triceps strength to at least 4 /5 bilaterally for elbow extension in order to improve transfer ability. LTG Duration 10/21/24 - Improving Three Impairment Pt does not have any motor function throughout bilateral LEs Short Term Goal (STG) Pt to demonstrate 1/5 trace motor contraction in at least one quad in order to begin focus on LE mobility if neural functional return begins. STG Duration Met Film Waxer Goal (LTG) Pt to demonstrate right quad strength to at least 2/5, demonstrating movement into ROM in an antigravity position LTG Duration 10/21/24 Two Impairment Pt struggles with lateral transfer/scooting along EOB Long-Term Goal (LTG) Pt to perform lateral scoot transfer using proper technique without any verbal cues 4x in a row. LTG Duration 10/21/24 One Impairment Pt does not have an appropriate home exercise program Short Term Goal (STG) Pt to be independent and compliant with an appropriate HEP STG Duration 10/21/24 Assessment Summary Assessment Pt tolerating well, really enjoying UE exercises. Did have to discuss today after he demonstrated some exercises he does independently at home probably were not working his abs as much as he thought, and went through different ways to implement different ways to exercise. Pt demonstrated good understanding. Physical Therapy Plan Frequency and Duration Frequency of Treatment 2x/Week Plan of Care Start Date 07/23/24 Plan of Care End Date 10/21/24 Therapeutic Interventions Therapeutic Interventions Aquatic Therapy,Balance Training,Coordination Training ,Gait Training,Home Exercise Program,Manual Therapy, Neuromuscular Re-education, Orthotic/Prosthetic Management ,Patient/Caregiver Education, Self-Care/Home Management, Sensory Integration,Soft Tissue Mobilization, Therapeutic Activities, Therapeutic Exercises, Wheelchair Management Next Visit Focus/Plan Next Note Type Treatment Note Next Visit Plan Continue PT per POC: Continue L log roll, L SL>quadruped, Lateral transfers to elevated surfaces more trunk flexion/ frequent scoots decreased assist, Wheelchair wheelies, curb management, POC: Continue UE and core strengthening, LE PROM and manual stretching. Transfers, mobility, LE ROM, pt will benefit from continued breakdown of transfers to improve efficiency and mechanics, as well as working on more seated balance EOB.
--- NOTE | 2024-08-31 17:48 | PT.OTN ---
Current Diagnoses Paraplegia, unspecified (08/26/24) Other specified personal risk factors, not elsewhere classified (08/26/24) Other specified postprocedural states (08/26/24) Physical Therapy Treatment Note PT-OP-A Visit Information Start: 03/08/22 17:00 Freq: Status: Active Protocol: Document 08/31/24 17:10 DCW (Rec: 08/31/24 17:48 DCW [id number]) Out-Patient Physical Therapy Visit Information Visit Information Visit Type Treatment Note Visit Note Late arrival Visit Start Time 17:10 Visit Stop Time 17:45 Visit Number [id number] Number of TROMMEL TENDER Visits 0 Evaluation Information Evaluation Date 03/08/22 PT-OP-B Current Condition Start: 03/08/22 17:00 Freq: Status: Active Protocol: Document 03/17/24 11:29 SAK (Rec: 03/17/24 12:23 SAK [id number]) Current Condition History of Current Condition Onset Date 12/16/21 Current Complaints Paraplegia History of Current Condition Pt is a 71 year old male with a very unfortunate medical history. Pt was hiking [employer] on 12/16/21 with a friend, finished up, drive back to his friend's home to drop him off, and noticed his left leg was collapsing. By the time pt drove home, both legs were giving out and numb. Pt was suddenly paralized from the waist down, was taken to the ED, and was flown to [facility] on 12/17/21. The following day, he underwent a laminectomy to relieve pressure from the thoracic epidural hematoma which had developed following his hike, which was pressing on his spinal cord. Following surgery , pt was in recovery for a week and was then transfered to rehab for 20 days, when he was finally discharged home in a wheelchair on 01/19/22. Pt reports his surgeon informed him that it is a possibility that he gets some return of nerve function. Has experienced some changes in his right LE, but has no motor function at this time from ~ T10 down. Minimal sensory return on right side, none on left. Pt has been anxious to get in to therapy and do everything he can to help return to function. Pt's , who attended his evaluation, notes that she has been doing a lot of PROM in his legs at night to keep everything moving. Pt can feel some stretching during PROM in his right leg. Pt has additionally already started occupational therapy, and has been practicing some seated stabilization. Pt transfers with a slide board, but notes it is difficult to do into his car, because he has to transfer upward at an incline. PT-OP-C Subjective Start: 03/08/22 17:00 Freq: Status: Active Protocol: Document 08/31/24 17:10 DCW (Rec: 08/31/24 17:48 DCW [id number]) OP-PT Subjective Patient Comments Patient Comments Pt arrives late today, but looking forward to a good workout. PT-OP-G Mobility & Gait Start: 03/08/22 17:00 Freq: Status: Active Protocol: Document 07/23/24 12:17 DCW (Rec: 07/23/24 12:52 DCW [id number]) OP Mobility Evaluation Transfers Bed to Chair Transfers Transfers using UE, improved with side-side movement, requires minimal verbal cues for LE positioning Car Transfers uses slide board, stabilizes front to back and prevent slide down board Wheelchair Management Type of Wheelchair Manual w/c Assessment Details Unable to perform tilt back to get over curb. Able to clear 2 obstacle 60-70% of the time . PT-OP-H Neuro Start: 03/08/22 17:00 Freq: Status: Active Protocol: Document 07/23/24 12:17 DCW (Rec: 07/23/24 12:52 DCW [id number]) Sensation Evaluation Gross Sensation Gross Sensation Left LE Impaired,Right LE Impaired,Trunk Impaired Sensation Description Paresthesia,Numbness,Tingling, Pins & [place],Burning Dermatome Impairments L1,L2,L3,L4,L5,S1,S2,S3,S4-5 Location Details Right Leg Light Touch Impaired Sharp/Dull Impaired Deep Pressure Intact/Normal Hot/Cold Absent Protective Sensation Absent Proprioception (Position) Impaired Kinesthesia (Movement) Impaired Two-Point Discrimination Impaired Tactile Localization Impaired Stereognosis Impaired Left Leg Light Touch Absent Sharp/Dull Absent Deep Pressure Impaired Hot/Cold Impaired Protective Sensation Absent Proprioception (Position) Absent Kinesthesia (Movement) Impaired Two-Point Discrimination Absent Tactile Localization Absent Stereognosis Absent Comments Summary Comments B protective reflex vs sharp present Deep Tendon Reflex & Clonus Assessment Deep Tendon Reflex Right Achilles Deep Tendon Reflex 2+ Normal Right Patellar Deep Tendon Reflex 2+ Normal Left Achilles Deep Tendon Reflex 2+ Normal Left Patellar Deep Tendon Reflex 1+ Diminished Ankle Clonus Right Clonus Assessment Sustained Left Clonus Assessment Sustained Muscle Tone Tone Assessment Right Lower Extremity Flexor Tone Description Moderate Hypertonicity Extensor Tone Description Moderate Hypertonicity Left Lower Extremity Flexor Tone Description Moderate Hypertonicity Extensor Tone Description Moderate Hypertonicity PT-OP-J Posture/Palpation/Skin Start: 03/08/22 17:00 Freq: Status: Active Protocol: Document 07/23/24 12:17 DCW (Rec: 07/23/24 12:52 DCW [id number]) Posture Evaluation Comments Posture Comments Sitting EOB with good core control and no instability, uses UEs in lap for support. Recovers from directional pushing. Improved ability to reach outside of base of support. PT-OP-M Strength Start: 08/21/22 15:38 Freq: Status: Active Protocol: Document 07/23/24 12:17 DCW (Rec: 07/23/24 12:52 DCW [id number]) Trunk Strength Trunk Manual Muscle Testing Core Stabilization Able to hold himself up in partial lean using abdominal strength for 15 second Shoulder Strength Shoulder Manual Muscle Testing Right Flexion 4+ Good+ Extension 4+ Good+ Abduction (C5) 4+ Good+ External Rotation 4- Good- Internal Rotation 4+ Good+ Left Flexion 4+ Good+ Extension 4+ Good+ Abduction (C5) 4+ Good+ External Rotation 4- Good- Internal Rotation 4+ Good+ Elbow/Forearm Strength Elbow and Forearm Manual Muscle Testing Right Flexion (C6) 4+ Good+ Extension (C7) 4+ Good+ Left Flexion (C6) 4+ Good+ Extension (C7) 4- Good- Hand Storage Facility Housekeeper/Pinch Strength Hand Dominance Hand Dominance Right Hand Strength Right Storage Facility Housekeeper (lbs) 90 Left Storage Facility Housekeeper (lbs) 85 Hip Strength Hip Manual Muscle Testing Right Flexion (L2) 1 Trace Extension (S1) 2- Poor- Adduction 2- Poor- Left Flexion (L2) 1 Trace Extension (S1) 2- Poor- Adduction 1 Trace Knee Strength Knee Manual Muscle Testing Right Flexion (S2) 2- Poor- Extension (L3) 1 Trace Left Flexion (S2) 2- Poor- Extension (L3) 1 Trace Ankle/Foot Strength Ankle and Foot Manual Muscle Testing Right Dorsiflexion (L4) 1 Trace Plantarflexion (S1) 2 Poor Left Plantarflexion (S1) 1 Trace PT-OP-Q Treatments Start: 03/08/22 17:00 Freq: Status: Active Protocol: Document 08/31/24 17:10 DCW (Rec: 08/31/24 17:48 DCW [id number]) Cardio Equipment Recumbent Stepper (Sci-Fit) Duration (Minutes) 10 Resistance 8 Seat Position Seat 10, Handles 9 Other Nu-Step, SPM 50-60, occ cues for pacing Gym Equipment Cable Column (Body Solid) Triceps Details Seated Triceps Press Resistance 25# 2x10 cable row Resistance 40# 3x15 Reps/Time PT assist to maintain upright posture lateral pulldown Details Lat Pulldown Resistance 70# 2x10, 1x8 PT-OP-T Assessment and Plan Start: 03/08/22 17:00 Freq: Status: Active Protocol: Document 08/31/24 17:10 DCW (Rec: 08/31/24 17:48 DCW [id number]) Physical Therapy Assessment Impairments Impairments Activity Tolerance,Balance, Coordination,Functional Activities,Functional Mobility ,Gait,Integument,Sensation, Soft Tissue Mobility,Strength, Tone,Transfers Goals Four Impairment Bilateral triceps weakness (R 4-, L 3+) Mcfp Goal (LTG) Pt to demonstrate improved triceps strength to at least 4 /5 bilaterally for elbow extension in order to improve transfer ability. LTG Duration 10/21/24 - Improving Three Impairment Pt does not have any motor function throughout bilateral LEs Short Term Goal (STG) Pt to demonstrate 1/5 trace motor contraction in at least one quad in order to begin focus on LE mobility if neural functional return begins. STG Duration Met Business Continuity Consultant Goal (LTG) Pt to demonstrate right quad strength to at least 2/5, demonstrating movement into ROM in an antigravity position LTG Duration 10/21/24 Two Impairment Pt struggles with lateral transfer/scooting along EOB Business Continuity Consultant Goal (LTG) Pt to perform lateral scoot transfer using proper technique without any verbal cues 4x in a row. LTG Duration 10/21/24 One Impairment Pt does not have an appropriate home exercise program Short Term Goal (STG) Pt to be independent and compliant with an appropriate HEP STG Duration 10/21/24 Assessment Summary Assessment Late arrival limited some activities, but pt did well with the time he had. Continue to focus on UE/core strengthening, functional mobility, therapeutic activity . Physical Therapy Plan Frequency and Duration Frequency of Treatment 2x/Week Plan of Care Start Date 07/23/24 Plan of Care End Date 10/21/24 Therapeutic Interventions Therapeutic Interventions Aquatic Therapy,Balance Training,Coordination Training ,Gait Training,Home Exercise Program,Manual Therapy, Neuromuscular Re-education, Orthotic/Prosthetic Management ,Patient/Caregiver Education, Self-Care/Home Management, Sensory Integration,Soft Tissue Mobilization, Therapeutic Activities, Therapeutic Exercises, Wheelchair Management Next Visit Focus/Plan Next Note Type Treatment Note Next Visit Plan Continue PT per POC: Continue L log roll, L SL>quadruped, Lateral transfers to elevated surfaces more trunk flexion/ frequent scoots decreased assist, Wheelchair wheelies, curb management, POC: Continue UE and core strengthening, LE PROM and manual stretching. Transfers, mobility, LE ROM, pt will benefit from continued breakdown of transfers to improve efficiency and mechanics, as well as working on more seated balance EOB.
--- NOTE | 2024-09-02 17:02 | PT.OTN ---
Current Diagnoses Paraplegia, unspecified (09/02/24) Other specified personal risk factors, not elsewhere classified (09/02/24) Other specified postprocedural states (09/02/24) Physical Therapy Treatment Note PT-OP-A Visit Information Start: 03/08/22 17:00 Freq: Status: Active Protocol: Document 09/02/24 16:15 DCW (Rec: 09/02/24 17:02 DCW [id number]) Out-Patient Physical Therapy Visit Information Visit Information Visit Type Treatment Note Visit Start Time 16:15 Visit Stop Time 17:00 Visit Number [id number] Number of PROOFREADER Visits 0 Evaluation Information Evaluation Date 03/08/22 PT-OP-B Current Condition Start: 03/08/22 17:00 Freq: Status: Active Protocol: Document 03/17/24 11:29 SAK (Rec: 03/17/24 12:23 SAK [id number]) Current Condition History of Current Condition Onset Date 12/16/21 Current Complaints Paraplegia History of Current Condition Pt is a 71 year old male with a very unfortunate medical history. Pt was hiking [employer] on 12/16/21 with a friend, finished up, drive back to his friend's home to drop him off, and noticed his left leg was collapsing. By the time pt drove home, both legs were giving out and numb. Pt was suddenly paralized from the waist down, was taken to the ED, and was flown to [facility] on 12/17/21. The following day, he underwent a laminectomy to relieve pressure from the thoracic epidural hematoma which had developed following his hike, which was pressing on his spinal cord. Following surgery , pt was in recovery for a week and was then transfered to rehab for 20 days, when he was finally discharged home in a wheelchair on 01/19/22. Pt reports his surgeon informed him that it is a possibility that he gets some return of nerve function. Has experienced some changes in his right LE, but has no motor function at this time from ~ T10 down. Minimal sensory return on right side, none on left. Pt has been anxious to get in to therapy and do everything he can to help return to function. Pt's , who attended his evaluation, notes that she has been doing a lot of PROM in his legs at night to keep everything moving. Pt can feel some stretching during PROM in his right leg. Pt has additionally already started occupational therapy, and has been practicing some seated stabilization. Pt transfers with a slide board, but notes it is difficult to do into his car, because he has to transfer upward at an incline. PT-OP-C Subjective Start: 03/08/22 17:00 Freq: Status: Active Protocol: Document 09/02/24 16:15 DCW (Rec: 09/02/24 17:02 DCW [id number]) OP-PT Subjective Patient Comments Patient Comments Pt reports his Rig arrived today, he's hoping to get it set up and try to get it moving this weekend. PT-OP-G Mobility & Gait Start: 03/08/22 17:00 Freq: Status: Active Protocol: Document 07/23/24 12:17 DCW (Rec: 07/23/24 12:52 DCW [id number]) OP Mobility Evaluation Transfers Bed to Chair Transfers Transfers using UE, improved with side-side movement, requires minimal verbal cues for LE positioning Car Transfers uses slide board, stabilizes front to back and prevent slide down board Wheelchair Management Type of Wheelchair Manual w/c Assessment Details Unable to perform tilt back to get over curb. Able to clear 2 obstacle 60-70% of the time . PT-OP-H Neuro Start: 03/08/22 17:00 Freq: Status: Active Protocol: Document 07/23/24 12:17 DCW (Rec: 07/23/24 12:52 DCW [id number]) Sensation Evaluation Gross Sensation Gross Sensation Left LE Impaired,Right LE Impaired,Trunk Impaired Sensation Description Paresthesia,Numbness,Tingling, Pins & [place],Burning Dermatome Impairments L1,L2,L3,L4,L5,S1,S2,S3,S4-5 Location Details Right Leg Light Touch Impaired Sharp/Dull Impaired Deep Pressure Intact/Normal Hot/Cold Absent Protective Sensation Absent Proprioception (Position) Impaired Kinesthesia (Movement) Impaired Two-Point Discrimination Impaired Tactile Localization Impaired Stereognosis Impaired Left Leg Light Touch Absent Sharp/Dull Absent Deep Pressure Impaired Hot/Cold Impaired Protective Sensation Absent Proprioception (Position) Absent Kinesthesia (Movement) Impaired Two-Point Discrimination Absent Tactile Localization Absent Stereognosis Absent Comments Summary Comments B protective reflex vs sharp present Deep Tendon Reflex & Clonus Assessment Deep Tendon Reflex Right Achilles Deep Tendon Reflex 2+ Normal Right Patellar Deep Tendon Reflex 2+ Normal Left Achilles Deep Tendon Reflex 2+ Normal Left Patellar Deep Tendon Reflex 1+ Diminished Ankle Clonus Right Clonus Assessment Sustained Left Clonus Assessment Sustained Muscle Tone Tone Assessment Right Lower Extremity Flexor Tone Description Moderate Hypertonicity Extensor Tone Description Moderate Hypertonicity Left Lower Extremity Flexor Tone Description Moderate Hypertonicity Extensor Tone Description Moderate Hypertonicity PT-OP-J Posture/Palpation/Skin Start: 03/08/22 17:00 Freq: Status: Active Protocol: Document 07/23/24 12:17 DCW (Rec: 07/23/24 12:52 DCW [id number]) Posture Evaluation Comments Posture Comments Sitting EOB with good core control and no instability, uses UEs in lap for support. Recovers from directional pushing. Improved ability to reach outside of base of support. PT-OP-M Strength Start: 08/21/22 15:38 Freq: Status: Active Protocol: Document 07/23/24 12:17 DCW (Rec: 07/23/24 12:52 DCW [id number]) Trunk Strength Trunk Manual Muscle Testing Core Stabilization Able to hold himself up in partial lean using abdominal strength for 15 second Shoulder Strength Shoulder Manual Muscle Testing Right Flexion 4+ Good+ Extension 4+ Good+ Abduction (C5) 4+ Good+ External Rotation 4- Good- Internal Rotation 4+ Good+ Left Flexion 4+ Good+ Extension 4+ Good+ Abduction (C5) 4+ Good+ External Rotation 4- Good- Internal Rotation 4+ Good+ Elbow/Forearm Strength Elbow and Forearm Manual Muscle Testing Right Flexion (C6) 4+ Good+ Extension (C7) 4+ Good+ Left Flexion (C6) 4+ Good+ Extension (C7) 4- Good- Hand Cook Helper/Pinch Strength Hand Dominance Hand Dominance Right Hand Strength Right Cook Helper (lbs) 90 Left Cook Helper (lbs) 85 Hip Strength Hip Manual Muscle Testing Right Flexion (L2) 1 Trace Extension (S1) 2- Poor- Adduction 2- Poor- Left Flexion (L2) 1 Trace Extension (S1) 2- Poor- Adduction 1 Trace Knee Strength Knee Manual Muscle Testing Right Flexion (S2) 2- Poor- Extension (L3) 1 Trace Left Flexion (S2) 2- Poor- Extension (L3) 1 Trace Ankle/Foot Strength Ankle and Foot Manual Muscle Testing Right Dorsiflexion (L4) 1 Trace Plantarflexion (S1) 2 Poor Left Plantarflexion (S1) 1 Trace PT-OP-Q Treatments Start: 03/08/22 17:00 Freq: Status: Active Protocol: Document 09/02/24 16:15 DCW (Rec: 09/02/24 17:02 [facility] [id number]) Cardio Equipment Recumbent Stepper (Sci-Fit) Duration (Minutes) 10 Resistance 9 Seat Position Seat 10, Handles 9 Other Nu-Step, SPM 50-60, occ cues for pacing Therapeutic Exercises Prone Exercises prone over 4 pillows Prone Exercise Name supported trunk extension, hip flexor stretch Equipment Used over 4 pillows, towel roll under forehead Comments positive feedback response Other Exercises short kneel Other Exercise Name short kneeling /c self thigh support Thread the needle Other Exercise Name Thread the needle on forearms/ knees Side bilateral Comments cues for cervical rotation isaac , LOB x1 to R Push-ups Other Exercise Name Push-up in quadruped Reps/Minutes x20, x20, x12 (to fatigue) quadruped Other Exercise Name decreased KIARA with hands ~4 in closer Resistance CGA Reps/Minutes x15, x15 Comments pt self heavy support BUEs Therapeutic Activity Therapeutic Activity supine>prone>quadruped Name SBA: into quadruped<> L SL, heavy pt BUE support Reps/Minutes x2 Comments L s/l > quadruped using forehead for support. ->quadruped pt uses edge of mat table to push up, successful on 4th attempt PT-OP-T Assessment and Plan Start: 03/08/22 17:00 Freq: Status: Active Protocol: Document 09/02/24 16:15 DCW (Rec: 09/02/24 17:02 [facility] [id number]) Physical Therapy Assessment Impairments Impairments Activity Tolerance,Balance, Coordination,Functional Activities,Functional Mobility ,Gait,Integument,Sensation, Soft Tissue Mobility,Strength, Tone,Transfers Goals Four Impairment Bilateral triceps weakness (R 4-, L 3+) Residential Goal (LTG) Pt to demonstrate improved triceps strength to at least 4 /5 bilaterally for elbow extension in order to improve transfer ability. LTG Duration 10/21/24 - Improving Three Impairment Pt does not have any motor function throughout bilateral LEs Short Term Goal (STG) Pt to demonstrate 1/5 trace motor contraction in at least one quad in order to begin focus on LE mobility if neural functional return begins. STG Duration Met Residential Goal (LTG) Pt to demonstrate right quad strength to at least 2/5, demonstrating movement into ROM in an antigravity position LTG Duration 10/21/24 Two Impairment Pt struggles with lateral transfer/scooting along EOB Exchange Teller Goal (LTG) Pt to perform lateral scoot transfer using proper technique without any verbal cues 4x in a row. LTG Duration 10/21/24 One Impairment Pt does not have an appropriate home exercise program Short Term Goal (STG) Pt to be independent and compliant with an appropriate HEP STG Duration 10/21/24 Assessment Summary Assessment Pt's UE strength, transfers, and bed mobility all improving greatly, pt very happy with recent changes. Continue to focus on UE strengthening, balance, core exercises, flexibility, and transfers. Physical Therapy Plan Frequency and Duration Frequency of Treatment 2x/Week Plan of Care Start Date 07/23/24 Plan of Care End Date 10/21/24 Therapeutic Interventions Therapeutic Interventions Aquatic Therapy,Balance Training,Coordination Training ,Gait Training,Home Exercise Program,Manual Therapy, Neuromuscular Re-education, Orthotic/Prosthetic Management ,Patient/Caregiver Education, Self-Care/Home Management, Sensory Integration,Soft Tissue Mobilization, Therapeutic Activities, Therapeutic Exercises, Wheelchair Management Next Visit Focus/Plan Next Note Type Treatment Note Next Visit Plan Continue PT per POC: Continue L log roll, L SL>quadruped, Lateral transfers to elevated surfaces more trunk flexion/ frequent scoots decreased assist, Wheelchair wheelies, curb management, POC: Continue UE and core strengthening, LE PROM and manual stretching. Transfers, mobility, LE ROM, pt will benefit from continued breakdown of transfers to improve efficiency and mechanics, as well as working on more seated balance EOB.
--- NOTE | 2024-09-08 17:51 | PT.OTN ---
Current Diagnoses Paraplegia, unspecified (09/08/24) Other specified personal risk factors, not elsewhere classified (09/08/24) Other specified postprocedural states (09/08/24) Physical Therapy Treatment Note PT-OP-A Visit Information Start: 03/08/22 17:00 Freq: Status: Active Protocol: Document 09/08/24 17:02 DCW (Rec: 09/08/24 17:50 DCW [id number]) Out-Patient Physical Therapy Visit Information Visit Information Visit Type Treatment Note Visit Start Time 17:02 Visit Stop Time 17:45 Visit Number [id number] Number of PHYSICIAN RELATIONS SPECIALIST Visits 0 Evaluation Information Evaluation Date 03/08/22 PT-OP-B Current Condition Start: 03/08/22 17:00 Freq: Status: Active Protocol: Document 03/17/24 11:29 SAK (Rec: 03/17/24 12:23 SAK [id number]) Current Condition History of Current Condition Onset Date 12/16/21 Current Complaints Paraplegia History of Current Condition Pt is a 71 year old male with a very unfortunate medical history. Pt was hiking [employer] on 12/16/21 with a friend, finished up, drive back to his friend's home to drop him off, and noticed his left leg was collapsing. By the time pt drove home, both legs were giving out and numb. Pt was suddenly paralized from the waist down, was taken to the ED, and was flown to [facility] on 12/17/21. The following day, he underwent a laminectomy to relieve pressure from the thoracic epidural hematoma which had developed following his hike, which was pressing on his spinal cord. Following surgery , pt was in recovery for a week and was then transfered to rehab for 20 days, when he was finally discharged home in a wheelchair on 01/19/22. Pt reports his surgeon informed him that it is a possibility that he gets some return of nerve function. Has experienced some changes in his right LE, but has no motor function at this time from ~ T10 down. Minimal sensory return on right side, none on left. Pt has been anxious to get in to therapy and do everything he can to help return to function. Pt's , who attended his evaluation, notes that she has been doing a lot of PROM in his legs at night to keep everything moving. Pt can feel some stretching during PROM in his right leg. Pt has additionally already started occupational therapy, and has been practicing some seated stabilization. Pt transfers with a slide board, but notes it is difficult to do into his car, because he has to transfer upward at an incline. PT-OP-C Subjective Start: 03/08/22 17:00 Freq: Status: Active Protocol: Document 09/08/24 17:02 DCW (Rec: 09/08/24 17:50 DCW [id number]) OP-PT Subjective Patient Comments Patient Comments Pt got his new off-road power chair up and running, was able to get out over the weekend and go on some trails. Overall pretty happy with his purchase, does have some complaints regarding how easy it could be to tilt over. PT-OP-G Mobility & Gait Start: 03/08/22 17:00 Freq: Status: Active Protocol: Document 07/23/24 12:17 DCW (Rec: 07/23/24 12:52 DCW [id number]) OP Mobility Evaluation Transfers Bed to Chair Transfers Transfers using UE, improved with side-side movement, requires minimal verbal cues for LE positioning Car Transfers uses slide board, stabilizes front to back and prevent slide down board Wheelchair Management Type of Wheelchair Manual w/c Assessment Details Unable to perform tilt back to get over curb. Able to clear 2 obstacle 60-70% of the time . PT-OP-H Neuro Start: 03/08/22 17:00 Freq: Status: Active Protocol: Document 07/23/24 12:17 DCW (Rec: 07/23/24 12:52 DCW [id number]) Sensation Evaluation Gross Sensation Gross Sensation Left LE Impaired,Right LE Impaired,Trunk Impaired Sensation Description Paresthesia,Numbness,Tingling, Pins & [place],Burning Dermatome Impairments L1,L2,L3,L4,L5,S1,S2,S3,S4-5 Location Details Right Leg Light Touch Impaired Sharp/Dull Impaired Deep Pressure Intact/Normal Hot/Cold Absent Protective Sensation Absent Proprioception (Position) Impaired Kinesthesia (Movement) Impaired Two-Point Discrimination Impaired Tactile Localization Impaired Stereognosis Impaired Left Leg Light Touch Absent Sharp/Dull Absent Deep Pressure Impaired Hot/Cold Impaired Protective Sensation Absent Proprioception (Position) Absent Kinesthesia (Movement) Impaired Two-Point Discrimination Absent Tactile Localization Absent Stereognosis Absent Comments Summary Comments B protective reflex vs sharp present Deep Tendon Reflex & Clonus Assessment Deep Tendon Reflex Right Achilles Deep Tendon Reflex 2+ Normal Right Patellar Deep Tendon Reflex 2+ Normal Left Achilles Deep Tendon Reflex 2+ Normal Left Patellar Deep Tendon Reflex 1+ Diminished Ankle Clonus Right Clonus Assessment Sustained Left Clonus Assessment Sustained Muscle Tone Tone Assessment Right Lower Extremity Flexor Tone Description Moderate Hypertonicity Extensor Tone Description Moderate Hypertonicity Left Lower Extremity Flexor Tone Description Moderate Hypertonicity Extensor Tone Description Moderate Hypertonicity PT-OP-J Posture/Palpation/Skin Start: 03/08/22 17:00 Freq: Status: Active Protocol: Document 07/23/24 12:17 DCW (Rec: 07/23/24 12:52 DCW [id number]) Posture Evaluation Comments Posture Comments Sitting EOB with good core control and no instability, uses UEs in lap for support. Recovers from directional pushing. Improved ability to reach outside of base of support. PT-OP-M Strength Start: 08/21/22 15:38 Freq: Status: Active Protocol: Document 07/23/24 12:17 DCW (Rec: 07/23/24 12:52 DCW [id number]) Trunk Strength Trunk Manual Muscle Testing Core Stabilization Able to hold himself up in partial lean using abdominal strength for 15 second Shoulder Strength Shoulder Manual Muscle Testing Right Flexion 4+ Good+ Extension 4+ Good+ Abduction (C5) 4+ Good+ External Rotation 4- Good- Internal Rotation 4+ Good+ Left Flexion 4+ Good+ Extension 4+ Good+ Abduction (C5) 4+ Good+ External Rotation 4- Good- Internal Rotation 4+ Good+ Elbow/Forearm Strength Elbow and Forearm Manual Muscle Testing Right Flexion (C6) 4+ Good+ Extension (C7) 4+ Good+ Left Flexion (C6) 4+ Good+ Extension (C7) 4- Good- Hand Acoustical Logging Engineer/Pinch Strength Hand Dominance Hand Dominance Right Hand Strength Right Acoustical Logging Engineer (lbs) 90 Left Acoustical Logging Engineer (lbs) 85 Hip Strength Hip Manual Muscle Testing Right Flexion (L2) 1 Trace Extension (S1) 2- Poor- Adduction 2- Poor- Left Flexion (L2) 1 Trace Extension (S1) 2- Poor- Adduction 1 Trace Knee Strength Knee Manual Muscle Testing Right Flexion (S2) 2- Poor- Extension (L3) 1 Trace Left Flexion (S2) 2- Poor- Extension (L3) 1 Trace Ankle/Foot Strength Ankle and Foot Manual Muscle Testing Right Dorsiflexion (L4) 1 Trace Plantarflexion (S1) 2 Poor Left Plantarflexion (S1) 1 Trace PT-OP-Q Treatments Start: 03/08/22 17:00 Freq: Status: Active Protocol: Document 09/08/24 17:02 DCW (Rec: 09/08/24 17:50 DCW [id number]) Cardio Equipment Recumbent Stepper (Sci-Fit) Duration (Minutes) 10 Resistance 8 Seat Position Seat 10, Handles 9 Other Nu-Step, SPM 50-60, occ cues for pacing Gym Equipment Cable Column (Body Solid) Triceps Details Seated Triceps Press Resistance 25# 4x10 cable row Resistance 40# x15, 45# x10 Reps/Time PT assist to maintain upright posture lateral pulldown Details Lat Pulldown Resistance 70# x12, 2x10 PT-OP-T Assessment and Plan Start: 03/08/22 17:00 Freq: Status: Active Protocol: Document 09/08/24 17:02 DCW (Rec: 09/08/24 17:50 DCW [id number]) Physical Therapy Assessment Impairments Impairments Activity Tolerance,Balance, Coordination,Functional Activities,Functional Mobility ,Gait,Integument,Sensation, Soft Tissue Mobility,Strength, Tone,Transfers Goals Four Impairment Bilateral triceps weakness (R 4-, L 3+) Dish Machine Operator Goal (LTG) Pt to demonstrate improved triceps strength to at least 4 /5 bilaterally for elbow extension in order to improve transfer ability. LTG Duration 10/21/24 - Improving Three Impairment Pt does not have any motor function throughout bilateral LEs Short Term Goal (STG) Pt to demonstrate 1/5 trace motor contraction in at least one quad in order to begin focus on LE mobility if neural functional return begins. STG Duration Met Dish Machine Operator Goal (LTG) Pt to demonstrate right quad strength to at least 2/5, demonstrating movement into ROM in an antigravity position LTG Duration 10/21/24 Two Impairment Pt struggles with lateral transfer/scooting along EOB Dish Machine Operator Goal (LTG) Pt to perform lateral scoot transfer using proper technique without any verbal cues 4x in a row. LTG Duration 10/21/24 One Impairment Pt does not have an appropriate home exercise program Short Term Goal (STG) Pt to be independent and compliant with an appropriate HEP STG Duration 10/21/24 Assessment Summary Assessment Pt continues to appear to benefit from UE strengthening, doing better with exercises at Body Solid cable column. Work on functional mobility, strengthening, and transfers Physical Therapy Plan Frequency and Duration Frequency of Treatment 2x/Week Plan of Care Start Date 07/23/24 Plan of Care End Date 10/21/24 Therapeutic Interventions Therapeutic Interventions Aquatic Therapy,Balance Training,Coordination Training ,Gait Training,Home Exercise Program,Manual Therapy, Neuromuscular Re-education, Orthotic/Prosthetic Management ,Patient/Caregiver Education, Self-Care/Home Management, Sensory Integration,Soft Tissue Mobilization, Therapeutic Activities, Therapeutic Exercises, Wheelchair Management Next Visit Focus/Plan Next Note Type Treatment Note Next Visit Plan Continue PT per POC: Continue L log roll, L SL>quadruped, Lateral transfers to elevated surfaces more trunk flexion/ frequent scoots decreased assist, Wheelchair wheelies, curb management, POC: Continue UE and core strengthening, LE PROM and manual stretching. Transfers, mobility, LE ROM, pt will benefit from continued breakdown of transfers to improve efficiency and mechanics, as well as working on more seated balance EOB.
--- NOTE | 2024-09-10 17:12 | PT.OTN ---
Current Diagnoses Paraplegia, unspecified (09/10/24) Other specified personal risk factors, not elsewhere classified (09/10/24) Other specified postprocedural states (09/10/24) Physical Therapy Treatment Note PT-OP-A Visit Information Start: 03/08/22 17:00 Freq: Status: Active Protocol: Document 09/10/24 14:15 AB (Rec: 09/10/24 17:12 AB Laptop) Out-Patient Physical Therapy Visit Information Visit Information Visit Type Treatment Note Visit Start Time 15:22 Visit Stop Time 16:12 Visit Number [id number] Number of ELECTRICAL ENGINEER Visits 1 Evaluation Information Evaluation Date 03/08/22 PT-OP-B Current Condition Start: 03/08/22 17:00 Freq: Status: Active Protocol: Document 03/17/24 11:29 SAK (Rec: 03/17/24 12:23 SAK [id number]) Current Condition History of Current Condition Onset Date 12/16/21 Current Complaints Paraplegia History of Current Condition Pt is a 71 year old male with a very unfortunate medical history. Pt was hiking [employer] on 12/16/21 with a friend, finished up, drive back to his friend's home to drop him off, and noticed his left leg was collapsing. By the time pt drove home, both legs were giving out and numb. Pt was suddenly paralized from the waist down, was taken to the ED, and was flown to [facility] on 12/17/21. The following day, he underwent a laminectomy to relieve pressure from the thoracic epidural hematoma which had developed following his hike, which was pressing on his spinal cord. Following surgery , pt was in recovery for a week and was then transfered to rehab for 20 days, when he was finally discharged home in a wheelchair on 01/19/22. Pt reports his surgeon informed him that it is a possibility that he gets some return of nerve function. Has experienced some changes in his right LE, but has no motor function at this time from ~ T10 down. Minimal sensory return on right side, none on left. Pt has been anxious to get in to therapy and do everything he can to help return to function. Pt's , who attended his evaluation, notes that she has been doing a lot of PROM in his legs at night to keep everything moving. Pt can feel some stretching during PROM in his right leg. Pt has additionally already started occupational therapy, and has been practicing some seated stabilization. Pt transfers with a slide board, but notes it is difficult to do into his car, because he has to transfer upward at an incline. PT-OP-C Subjective Start: 03/08/22 17:00 Freq: Status: Active Protocol: Document 09/10/24 14:15 AB (Rec: 09/10/24 17:12 AB Laptop) OP-PT Subjective Patient Comments Patient Comments Patient reports nothing new since previous session. Patient reports when he is in his standing frame when the knees are straight he is bent at the waist 40 to 60 deg PT-OP-G Mobility & Gait Start: 03/08/22 17:00 Freq: Status: Active Protocol: Document 07/23/24 12:17 DCW (Rec: 07/23/24 12:52 DCW [id number]) OP Mobility Evaluation Transfers Bed to Chair Transfers Transfers using UE, improved with side-side movement, requires minimal verbal cues for LE positioning Car Transfers uses slide board, stabilizes front to back and prevent slide down board Wheelchair Management Type of Wheelchair Manual w/c Assessment Details Unable to perform tilt back to get over curb. Able to clear 2 obstacle 60-70% of the time . PT-OP-H Neuro Start: 03/08/22 17:00 Freq: Status: Active Protocol: Document 07/23/24 12:17 DCW (Rec: 07/23/24 12:52 DCW [id number]) Sensation Evaluation Gross Sensation Gross Sensation Left LE Impaired,Right LE Impaired,Trunk Impaired Sensation Description Paresthesia,Numbness,Tingling, Pins & [place],Burning Dermatome Impairments L1,L2,L3,L4,L5,S1,S2,S3,S4-5 Location Details Right Leg Light Touch Impaired Sharp/Dull Impaired Deep Pressure Intact/Normal Hot/Cold Absent Protective Sensation Absent Proprioception (Position) Impaired Kinesthesia (Movement) Impaired Two-Point Discrimination Impaired Tactile Localization Impaired Stereognosis Impaired Left Leg Light Touch Absent Sharp/Dull Absent Deep Pressure Impaired Hot/Cold Impaired Protective Sensation Absent Proprioception (Position) Absent Kinesthesia (Movement) Impaired Two-Point Discrimination Absent Tactile Localization Absent Stereognosis Absent Comments Summary Comments B protective reflex vs sharp present Deep Tendon Reflex & Clonus Assessment Deep Tendon Reflex Right Achilles Deep Tendon Reflex 2+ Normal Right Patellar Deep Tendon Reflex 2+ Normal Left Achilles Deep Tendon Reflex 2+ Normal Left Patellar Deep Tendon Reflex 1+ Diminished Ankle Clonus Right Clonus Assessment Sustained Left Clonus Assessment Sustained Muscle Tone Tone Assessment Right Lower Extremity Flexor Tone Description Moderate Hypertonicity Extensor Tone Description Moderate Hypertonicity Left Lower Extremity Flexor Tone Description Moderate Hypertonicity Extensor Tone Description Moderate Hypertonicity PT-OP-J Posture/Palpation/Skin Start: 03/08/22 17:00 Freq: Status: Active Protocol: Document 07/23/24 12:17 DCW (Rec: 07/23/24 12:52 DCW [id number]) Posture Evaluation Comments Posture Comments Sitting EOB with good core control and no instability, uses UEs in lap for support. Recovers from directional pushing. Improved ability to reach outside of base of support. PT-OP-M Strength Start: 08/21/22 15:38 Freq: Status: Active Protocol: Document 07/23/24 12:17 DCW (Rec: 07/23/24 12:52 DCW [id number]) Trunk Strength Trunk Manual Muscle Testing Core Stabilization Able to hold himself up in partial lean using abdominal strength for 15 second Shoulder Strength Shoulder Manual Muscle Testing Right Flexion 4+ Good+ Extension 4+ Good+ Abduction (C5) 4+ Good+ External Rotation 4- Good- Internal Rotation 4+ Good+ Left Flexion 4+ Good+ Extension 4+ Good+ Abduction (C5) 4+ Good+ External Rotation 4- Good- Internal Rotation 4+ Good+ Elbow/Forearm Strength Elbow and Forearm Manual Muscle Testing Right Flexion (C6) 4+ Good+ Extension (C7) 4+ Good+ Left Flexion (C6) 4+ Good+ Extension (C7) 4- Good- Hand Trust Advisor/Pinch Strength Hand Dominance Hand Dominance Right Hand Strength Right Trust Advisor (lbs) 90 Left Trust Advisor (lbs) 85 Hip Strength Hip Manual Muscle Testing Right Flexion (L2) 1 Trace Extension (S1) 2- Poor- Adduction 2- Poor- Left Flexion (L2) 1 Trace Extension (S1) 2- Poor- Adduction 1 Trace Knee Strength Knee Manual Muscle Testing Right Flexion (S2) 2- Poor- Extension (L3) 1 Trace Left Flexion (S2) 2- Poor- Extension (L3) 1 Trace Ankle/Foot Strength Ankle and Foot Manual Muscle Testing Right Dorsiflexion (L4) 1 Trace Plantarflexion (S1) 2 Poor Left Plantarflexion (S1) 1 Trace PT-OP-Q Treatments Start: 03/08/22 17:00 Freq: Status: Active Protocol: Document 09/10/24 14:15 AB (Rec: 09/10/24 17:12 AB Laptop) Cardio Equipment Recumbent Stepper (Sci-Fit) Duration (Minutes) 10 Resistance 8 Seat Position Seat 10 then to 11 Handles 9 Other Nu-Step, SPM 50-60, occ cues for pacing Gym Equipment Cable Column (Body Solid) Triceps Details Seated Triceps Press Resistance 25# 4x10 cable row Resistance 45# X10 and 40 X 10 Reps/Time PT assist to maintain upright posture Therapeutic Activity Therapeutic Activity supine>prone>quadruped Name SBA: into quadruped<> L SL, heavy pt BUE support Comments L s/l > quadruped or support. ->quadruped pt uses edge of mat table to push up, push up forehead to mat X 25 on knees using bolsters sitting on buttocks position working on core without UE use briefly Ie hand taps Mod to Max briefly with gait belt Neuro Re-Education Treatment Balance Activities Seated balance Reps/Duration 1x Comments VC to scoot slightly away from back of chair and hold posture one minute PT-OP-T Assessment and Plan Start: 03/08/22 17:00 Freq: Status: Active Protocol: Document 09/10/24 14:15 AB (Rec: 09/10/24 17:12 AB Laptop) Physical Therapy Assessment Goals Four Impairment Bilateral triceps weakness (R 4-, L 3+) [facility] Goal (LTG) Pt to demonstrate improved triceps strength to at least 4 /5 bilaterally for elbow extension in order to improve transfer ability. LTG Duration 10/21/24 - Improving Three Impairment Pt does not have any motor function throughout bilateral LEs Short Term Goal (STG) Pt to demonstrate 1/5 trace motor contraction in at least one quad in order to begin focus on LE mobility if neural functional return begins. STG Duration Met Manager Maritime Goal (LTG) Pt to demonstrate right quad strength to at least 2/5, demonstrating movement into ROM in an antigravity position LTG Duration 10/21/24 Two Impairment Pt struggles with lateral transfer/scooting along EOB Manager Maritime Goal (LTG) Pt to perform lateral scoot transfer using proper technique without any verbal cues 4x in a row. LTG Duration 10/21/24 One Impairment Pt does not have an appropriate home exercise program Short Term Goal (STG) Pt to be independent and compliant with an appropriate HEP STG Duration 10/21/24 Assessment Summary Assessment Core strength and posture likely limiting patients ability to hold upright posture in standing frame above as seen by assist required to hold trunk upright when seated on knees on mat. Physical Therapy Plan Frequency and Duration Frequency of Treatment 2x/Week Plan of Care Start Date 07/23/24 Plan of Care End Date 10/21/24 Next Visit Focus/Plan Next Note Type Treatment Note Next Visit Plan Continue PT per POC: Continue L log roll, L SL>quadruped, Lateral transfers to elevated surfaces more trunk flexion/ frequent scoots decreased assist, Wheelchair wheelies, curb management, POC: Continue UE and core strengthening, LE PROM and manual stretching. Transfers, mobility, LE ROM, pt will benefit from continued breakdown of transfers to improve efficiency and mechanics, as well as working on more seated balance EOB.
--- NOTE | 2024-09-15 16:25 | PT.OTN ---
Current Diagnoses Paraplegia, unspecified (09/15/24) Other specified personal risk factors, not elsewhere classified (09/15/24) Other specified postprocedural states (09/15/24) Physical Therapy Treatment Note PT-OP-A Visit Information Start: 03/08/22 17:00 Freq: Status: Active Protocol: Document 09/15/24 14:52 NBM (Rec: 09/15/24 15:37 NBM Laptop) Out-Patient Physical Therapy Visit Information Visit Information Visit Type Treatment Note Visit Start Time 14:45 Visit Stop Time 15:25 Visit Number [id number] Number of BOILER TENDER Visits 2 Evaluation Information Evaluation Date 03/08/22 PT-OP-B Current Condition Start: 03/08/22 17:00 Freq: Status: Active Protocol: Document 03/17/24 11:29 SAK (Rec: 03/17/24 12:23 SAK [id number]) Current Condition History of Current Condition Onset Date 12/16/21 Current Complaints Paraplegia History of Current Condition Pt is a 71 year old male with a very unfortunate medical history. Pt was hiking [employer] on 12/16/21 with a friend, finished up, drive back to his friend's home to drop him off, and noticed his left leg was collapsing. By the time pt drove home, both legs were giving out and numb. Pt was suddenly paralized from the waist down, was taken to the ED, and was flown to [facility] on 12/17/21. The following day, he underwent a laminectomy to relieve pressure from the thoracic epidural hematoma which had developed following his hike, which was pressing on his spinal cord. Following surgery , pt was in recovery for a week and was then transfered to rehab for 20 days, when he was finally discharged home in a wheelchair on 01/19/22. Pt reports his surgeon informed him that it is a possibility that he gets some return of nerve function. Has experienced some changes in his right LE, but has no motor function at this time from ~ T10 down. Minimal sensory return on right side, none on left. Pt has been anxious to get in to therapy and do everything he can to help return to function. Pt's , who attended his evaluation, notes that she has been doing a lot of PROM in his legs at night to keep everything moving. Pt can feel some stretching during PROM in his right leg. Pt has additionally already started occupational therapy, and has been practicing some seated stabilization. Pt transfers with a slide board, but notes it is difficult to do into his car, because he has to transfer upward at an incline. PT-OP-C Subjective Start: 03/08/22 17:00 Freq: Status: Active Protocol: Document 09/15/24 14:52 NBM (Rec: 09/15/24 15:37 NBM Laptop) OP-PT Subjective Patient Comments Patient Comments Toby reports he'd like to focus on more core work. PT-OP-G Mobility & Gait Start: 03/08/22 17:00 Freq: Status: Active Protocol: Document 07/23/24 12:17 DCW (Rec: 07/23/24 12:52 DCW [id number]) OP Mobility Evaluation Transfers Bed to Chair Transfers Transfers using UE, improved with side-side movement, requires minimal verbal cues for LE positioning Car Transfers uses slide board, stabilizes front to back and prevent slide down board Wheelchair Management Type of Wheelchair Manual w/c Assessment Details Unable to perform tilt back to get over curb. Able to clear 2 obstacle 60-70% of the time . PT-OP-H Neuro Start: 03/08/22 17:00 Freq: Status: Active Protocol: Document 07/23/24 12:17 DCW (Rec: 07/23/24 12:52 DCW [id number]) Sensation Evaluation Gross Sensation Gross Sensation Left LE Impaired,Right LE Impaired,Trunk Impaired Sensation Description Paresthesia,Numbness,Tingling, Pins & Donaldson,Burning Dermatome Impairments L1,L2,L3,L4,L5,S1,S2,S3,S4-5 Location Details Right Leg Light Touch Impaired Sharp/Dull Impaired Deep Pressure Intact/Normal Hot/Cold Absent Protective Sensation Absent Proprioception (Position) Impaired Kinesthesia (Movement) Impaired Two-Point Discrimination Impaired Tactile Localization Impaired Stereognosis Impaired Left Leg Light Touch Absent Sharp/Dull Absent Deep Pressure Impaired Hot/Cold Impaired Protective Sensation Absent Proprioception (Position) Absent Kinesthesia (Movement) Impaired Two-Point Discrimination Absent Tactile Localization Absent Stereognosis Absent Comments Summary Comments B protective reflex vs sharp present Deep Tendon Reflex & Clonus Assessment Deep Tendon Reflex Right Achilles Deep Tendon Reflex 2+ Normal Right Patellar Deep Tendon Reflex 2+ Normal Left Achilles Deep Tendon Reflex 2+ Normal Left Patellar Deep Tendon Reflex 1+ Diminished Ankle Clonus Right Clonus Assessment Sustained Left Clonus Assessment Sustained Muscle Tone Tone Assessment Right Lower Extremity Flexor Tone Description Moderate Hypertonicity Extensor Tone Description Moderate Hypertonicity Left Lower Extremity Flexor Tone Description Moderate Hypertonicity Extensor Tone Description Moderate Hypertonicity PT-OP-J Posture/Palpation/Skin Start: 03/08/22 17:00 Freq: Status: Active Protocol: Document 07/23/24 12:17 DCW (Rec: 07/23/24 12:52 DCW [id number]) Posture Evaluation Comments Posture Comments Sitting EOB with good core control and no instability, uses UEs in lap for support. Recovers from directional pushing. Improved ability to reach outside of base of support. PT-OP-M Strength Start: 08/21/22 15:38 Freq: Status: Active Protocol: Document 07/23/24 12:17 DCW (Rec: 07/23/24 12:52 DCW [id number]) Trunk Strength Trunk Manual Muscle Testing Core Stabilization Able to hold himself up in partial lean using abdominal strength for 15 second Shoulder Strength Shoulder Manual Muscle Testing Right Flexion 4+ Good+ Extension 4+ Good+ Abduction (C5) 4+ Good+ External Rotation 4- Good- Internal Rotation 4+ Good+ Left Flexion 4+ Good+ Extension 4+ Good+ Abduction (C5) 4+ Good+ External Rotation 4- Good- Internal Rotation 4+ Good+ Elbow/Forearm Strength Elbow and Forearm Manual Muscle Testing Right Flexion (C6) 4+ Good+ Extension (C7) 4+ Good+ Left Flexion (C6) 4+ Good+ Extension (C7) 4- Good- Hand Cabin Cleaner/Pinch Strength Hand Dominance Hand Dominance Right Hand Strength Right Cabin Cleaner (lbs) 90 Left Cabin Cleaner (lbs) 85 Hip Strength Hip Manual Muscle Testing Right Flexion (L2) 1 Trace Extension (S1) 2- Poor- Adduction 2- Poor- Left Flexion (L2) 1 Trace Extension (S1) 2- Poor- Adduction 1 Trace Knee Strength Knee Manual Muscle Testing Right Flexion (S2) 2- Poor- Extension (L3) 1 Trace Left Flexion (S2) 2- Poor- Extension (L3) 1 Trace Ankle/Foot Strength Ankle and Foot Manual Muscle Testing Right Dorsiflexion (L4) 1 Trace Plantarflexion (S1) 2 Poor Left Plantarflexion (S1) 1 Trace PT-OP-Q Treatments Start: 03/08/22 17:00 Freq: Status: Active Protocol: Document 09/15/24 14:52 [facility] (Rec: 09/15/24 15:37 [facility] Laptop) Gym Equipment Cable Column (Body Solid) lateral pulldown Details Lat Pulldown Resistance 65# x15 Therapeutic Exercises Sitting Exercises TS rotation Sitting Exercise Name 1. ball to chest 2. arms extended Side bilateral Equipment Used 3.3 lb ball Reps/Minutes x10 ea Comments tactile cues for increasing trunk rotation Therapeutic Activity Therapeutic Activity squat/lateral scoot transfer Name squat pivot transfer Reps/Minutes x1 ea Comments w/c<> black mat table. close SBA. Neuro Re-Education Treatment Balance Activities Seated balance Reps/Duration 1x Comments 1.VC to scoot slightly away from back of chair and hold posture one minute x1 2. seated EOB and lateral scoot L onto 2 foam cushion, multiple attempts. pt self- corrects hand placement, able to get L ischial tuberosity then LLE partially onto cushion w/ Derrek. balloon volleyball Details Balloon Volley /c PVC Equipment seated on 2 foam cushion w/ feet planted;CGA B brittney for assist prn>GB pelvs Comments reaching outside limits of stability w/ focus on uprighting. CGA> modA for balance recovery. Self-Care/Home Management Treatment Education Other Education Edu to pt w/ visual aids for TrA anatomy and interrelationship with diaphragm and pelvic floor m., and importance of breathwork for core strengthening. PT-OP-T Assessment and Plan Start: 03/08/22 17:00 Freq: Status: Active Protocol: Document 09/15/24 14:52 [facility] (Rec: 09/15/24 15:37 [facility] Laptop) Physical Therapy Assessment Goals Four Impairment Bilateral triceps weakness (R 4-, L 3+) Retirement Goal (LTG) Pt to demonstrate improved triceps strength to at least 4 /5 bilaterally for elbow extension in order to improve transfer ability. LTG Duration 10/21/24 - Improving Three Impairment Pt does not have any motor function throughout bilateral LEs Short Term Goal (STG) Pt to demonstrate 1/5 trace motor contraction in at least one quad in order to begin focus on LE mobility if neural functional return begins. STG Duration Met Commercial Title Examiner Goal (LTG) Pt to demonstrate right quad strength to at least 2/5, demonstrating movement into ROM in an antigravity position LTG Duration 10/21/24 Two Impairment Pt struggles with lateral transfer/scooting along EOB Retirement Goal (LTG) Pt to perform lateral scoot transfer using proper technique without any verbal cues 4x in a row. LTG Duration 10/21/24 One Impairment Pt does not have an appropriate home exercise program Short Term Goal (STG) Pt to be independent and compliant with an appropriate HEP STG Duration 10/21/24 Assessment Summary Assessment Treatment focus on UE and core strength. Pt is unable to perform L lateral scoot from sitting EOB onto 2 foam without modA. He needs CGA to modA for balance recovery when seated on foam reaching outside base of support in all planes, most challenged w/ uprighting from trunk extension. Edu to pt w/ visual aids for TrA anatomy and interrelationship with diaphragm and pelvic floor m., and importance of breathwork for core strengthening. Physical Therapy Plan Frequency and Duration Frequency of Treatment 2x/Week Plan of Care Start Date 07/23/24 Plan of Care End Date 10/21/24 Therapeutic Interventions Therapeutic Interventions Aquatic Therapy,Balance Training,Coordination Training ,Gait Training,Home Exercise Program,Manual Therapy, Neuromuscular Re-education, Orthotic/Prosthetic Management ,Patient/Caregiver Education, Self-Care/Home Management, Sensory Integration,Soft Tissue Mobilization, Therapeutic Activities, Therapeutic Exercises, Wheelchair Management Next Visit Focus/Plan Next Note Type Treatment Note Next Visit Plan Next: Consider initiating supine core progression. Continue PT per POC: Continue L log roll, L SL>quadruped, Lateral transfers to elevated surfaces more trunk flexion/ frequent scoots decreased assist, Wheelchair wheelies, curb management, POC: Continue UE and core strengthening, LE PROM and manual stretching. Transfers, mobility, LE ROM, pt will benefit from continued breakdown of transfers to improve efficiency and mechanics, as well as working on more seated balance EOB.
--- NOTE | 2024-09-17 16:04 | PT.OTN ---
Current Diagnoses Paraplegia, unspecified (09/17/24) Other specified personal risk factors, not elsewhere classified (09/17/24) Other specified postprocedural states (09/17/24) Physical Therapy Treatment Note PT-OP-A Visit Information Start: 03/08/22 17:00 Freq: Status: Active Protocol: Document 09/17/24 15:23 DCW (Rec: 09/17/24 16:04 DCW [id number]) Out-Patient Physical Therapy Visit Information Visit Information Visit Type Treatment Note Visit Start Time 15:23 Visit Stop Time 16:05 Visit Number [id number] Number of NEW CAR GET READY MECHANIC Visits 0 Evaluation Information Evaluation Date 03/08/22 PT-OP-B Current Condition Start: 03/08/22 17:00 Freq: Status: Active Protocol: Document 03/17/24 11:29 SAK (Rec: 03/17/24 12:23 SAK [id number]) Current Condition History of Current Condition Onset Date 12/16/21 Current Complaints Paraplegia History of Current Condition Pt is a 71 year old male with a very unfortunate medical history. Pt was hiking [employer] on 12/16/21 with a friend, finished up, drive back to his friend's home to drop him off, and noticed his left leg was collapsing. By the time pt drove home, both legs were giving out and numb. Pt was suddenly paralized from the waist down, was taken to the ED, and was flown to [facility] on 12/17/21. The following day, he underwent a laminectomy to relieve pressure from the thoracic epidural hematoma which had developed following his hike, which was pressing on his spinal cord. Following surgery , pt was in recovery for a week and was then transfered to rehab for 20 days, when he was finally discharged home in a wheelchair on 01/19/22. Pt reports his surgeon informed him that it is a possibility that he gets some return of nerve function. Has experienced some changes in his right LE, but has no motor function at this time from ~ T10 down. Minimal sensory return on right side, none on left. Pt has been anxious to get in to therapy and do everything he can to help return to function. Pt's , who attended his evaluation, notes that she has been doing a lot of PROM in his legs at night to keep everything moving. Pt can feel some stretching during PROM in his right leg. Pt has additionally already started occupational therapy, and has been practicing some seated stabilization. Pt transfers with a slide board, but notes it is difficult to do into his car, because he has to transfer upward at an incline. PT-OP-C Subjective Start: 03/08/22 17:00 Freq: Status: Active Protocol: Document 09/17/24 15:23 DCW (Rec: 09/17/24 16:04 DCW [id number]) OP-PT Subjective Patient Comments Patient Comments Pt feeling good today, happy to be here. PT-OP-G Mobility & Gait Start: 03/08/22 17:00 Freq: Status: Active Protocol: Document 07/23/24 12:17 DCW (Rec: 07/23/24 12:52 DCW [id number]) OP Mobility Evaluation Transfers Bed to Chair Transfers Transfers using UE, improved with side-side movement, requires minimal verbal cues for LE positioning Car Transfers uses slide board, stabilizes front to back and prevent slide down board Wheelchair Management Type of Wheelchair Manual w/c Assessment Details Unable to perform tilt back to get over curb. Able to clear 2 obstacle 60-70% of the time . PT-OP-H Neuro Start: 03/08/22 17:00 Freq: Status: Active Protocol: Document 07/23/24 12:17 DCW (Rec: 07/23/24 12:52 DCW [id number]) Sensation Evaluation Gross Sensation Gross Sensation Left LE Impaired,Right LE Impaired,Trunk Impaired Sensation Description Paresthesia,Numbness,Tingling, Pins & Gaines,Burning Dermatome Impairments L1,L2,L3,L4,L5,S1,S2,S3,S4-5 Location Details Right Leg Light Touch Impaired Sharp/Dull Impaired Deep Pressure Intact/Normal Hot/Cold Absent Protective Sensation Absent Proprioception (Position) Impaired Kinesthesia (Movement) Impaired Two-Point Discrimination Impaired Tactile Localization Impaired Stereognosis Impaired Left Leg Light Touch Absent Sharp/Dull Absent Deep Pressure Impaired Hot/Cold Impaired Protective Sensation Absent Proprioception (Position) Absent Kinesthesia (Movement) Impaired Two-Point Discrimination Absent Tactile Localization Absent Stereognosis Absent Comments Summary Comments B protective reflex vs sharp present Deep Tendon Reflex & Clonus Assessment Deep Tendon Reflex Right Achilles Deep Tendon Reflex 2+ Normal Right Patellar Deep Tendon Reflex 2+ Normal Left Achilles Deep Tendon Reflex 2+ Normal Left Patellar Deep Tendon Reflex 1+ Diminished Ankle Clonus Right Clonus Assessment Sustained Left Clonus Assessment Sustained Muscle Tone Tone Assessment Right Lower Extremity Flexor Tone Description Moderate Hypertonicity Extensor Tone Description Moderate Hypertonicity Left Lower Extremity Flexor Tone Description Moderate Hypertonicity Extensor Tone Description Moderate Hypertonicity PT-OP-J Posture/Palpation/Skin Start: 03/08/22 17:00 Freq: Status: Active Protocol: Document 07/23/24 12:17 DCW (Rec: 07/23/24 12:52 DCW [id number]) Posture Evaluation Comments Posture Comments Sitting EOB with good core control and no instability, uses UEs in lap for support. Recovers from directional pushing. Improved ability to reach outside of base of support. PT-OP-M Strength Start: 08/21/22 15:38 Freq: Status: Active Protocol: Document 07/23/24 12:17 DCW (Rec: 07/23/24 12:52 DCW [id number]) Trunk Strength Trunk Manual Muscle Testing Core Stabilization Able to hold himself up in partial lean using abdominal strength for 15 second Shoulder Strength Shoulder Manual Muscle Testing Right Flexion 4+ Good+ Extension 4+ Good+ Abduction (C5) 4+ Good+ External Rotation 4- Good- Internal Rotation 4+ Good+ Left Flexion 4+ Good+ Extension 4+ Good+ Abduction (C5) 4+ Good+ External Rotation 4- Good- Internal Rotation 4+ Good+ Elbow/Forearm Strength Elbow and Forearm Manual Muscle Testing Right Flexion (C6) 4+ Good+ Extension (C7) 4+ Good+ Left Flexion (C6) 4+ Good+ Extension (C7) 4- Good- Hand Freezer Worker/Pinch Strength Hand Dominance Hand Dominance Right Hand Strength Right Freezer Worker (lbs) 90 Left Freezer Worker (lbs) 85 Hip Strength Hip Manual Muscle Testing Right Flexion (L2) 1 Trace Extension (S1) 2- Poor- Adduction 2- Poor- Left Flexion (L2) 1 Trace Extension (S1) 2- Poor- Adduction 1 Trace Knee Strength Knee Manual Muscle Testing Right Flexion (S2) 2- Poor- Extension (L3) 1 Trace Left Flexion (S2) 2- Poor- Extension (L3) 1 Trace Ankle/Foot Strength Ankle and Foot Manual Muscle Testing Right Dorsiflexion (L4) 1 Trace Plantarflexion (S1) 2 Poor Left Plantarflexion (S1) 1 Trace PT-OP-Q Treatments Start: 03/08/22 17:00 Freq: Status: Active Protocol: Document 09/17/24 15:23 DC (Rec: 09/17/24 16:04 [facility] [id number]) Cardio Equipment Recumbent Stepper (Sci-Fit) Duration (Minutes) 10 Resistance 8 Seat Position Seat 10, Handles 9 Other Nu-Step, SPM 50-60, occ cues for pacing Therapeutic Exercises Prone Exercises prone over 4 pillows Prone Exercise Name supported trunk extension, hip flexor stretch Equipment Used over 4 pillows, towel roll under forehead Comments positive feedback response Other Exercises short kneel Other Exercise Name short kneeling /c self thigh support Thread the needle Other Exercise Name Thread the needle on forearms/ knees Side bilateral Comments cues for cervical rotation isaac , LOB x1 to R Push-ups Other Exercise Name Push-up in quadruped Reps/Minutes x25, x20, x15 (to fatigue) quadruped child's pose Other Exercise Name Child's pose on forearms fwd Therapeutic Activity Therapeutic Activity supine>prone>quadruped Name SBA: into quadruped<> L SL, heavy pt BUE support PT-OP-T Assessment and Plan Start: 03/08/22 17:00 Freq: Status: Active Protocol: Document 09/17/24 15:23 DC (Rec: 09/17/24 16:04 [facility] [id number]) Physical Therapy Assessment Goals Four Impairment Bilateral triceps weakness (R 4-, L 3+) Skilled Nursing Goal (LTG) Pt to demonstrate improved triceps strength to at least 4 /5 bilaterally for elbow extension in order to improve transfer ability. LTG Duration 10/21/24 - Improving Three Impairment Pt does not have any motor function throughout bilateral LEs Short Term Goal (STG) Pt to demonstrate 1/5 trace motor contraction in at least one quad in order to begin focus on LE mobility if neural functional return begins. STG Duration Met Maple Sugar Maker Goal (LTG) Pt to demonstrate right quad strength to at least 2/5, demonstrating movement into ROM in an antigravity position LTG Duration 10/21/24 Two Impairment Pt struggles with lateral transfer/scooting along EOB Maple Sugar Maker Goal (LTG) Pt to perform lateral scoot transfer using proper technique without any verbal cues 4x in a row. LTG Duration 10/21/24 One Impairment Pt does not have an appropriate home exercise program Short Term Goal (STG) Pt to be independent and compliant with an appropriate HEP STG Duration 10/21/24 Assessment Summary Assessment Pt tolerated well, doing better with quadruped, showing increased ability with upper extremity strength. Continue working on core, stability, balance, and UE strength. Physical Therapy Plan Frequency and Duration Frequency of Treatment 2x/Week Plan of Care Start Date 07/23/24 Plan of Care End Date 10/21/24 Therapeutic Interventions Therapeutic Interventions Aquatic Therapy,Balance Training,Coordination Training ,Gait Training,Home Exercise Program,Manual Therapy, Neuromuscular Re-education, Orthotic/Prosthetic Management ,Patient/Caregiver Education, Self-Care/Home Management, Sensory Integration,Soft Tissue Mobilization, Therapeutic Activities, Therapeutic Exercises, Wheelchair Management Next Visit Focus/Plan Next Note Type Treatment Note Next Visit Plan Next: Consider initiating supine core progression. Continue PT per POC: Continue L log roll, L SL>quadruped, Lateral transfers to elevated surfaces more trunk flexion/ frequent scoots decreased assist, Wheelchair wheelies, curb management, POC: Continue UE and core strengthening, LE PROM and manual stretching. Transfers, mobility, LE ROM, pt will benefit from continued breakdown of transfers to improve efficiency and mechanics, as well as working on more seated balance EOB.
--- NOTE | 2024-09-22 16:08 | PT.OTN ---
Current Diagnoses Paraplegia, unspecified (09/22/24) Other specified personal risk factors, not elsewhere classified (09/22/24) Other specified postprocedural states (09/22/24) Physical Therapy Treatment Note PT-OP-A Visit Information Start: 03/08/22 17:00 Freq: Status: Active Protocol: Document 09/22/24 14:32 NBM (Rec: 09/22/24 16:07 NBM Laptop) Out-Patient Physical Therapy Visit Information Visit Information Visit Type Treatment Note Visit Start Time 14:35 Visit Stop Time 15:25 Visit Number [id number] Number of EQUITY DIRECTOR Visits 1 Evaluation Information Evaluation Date 03/08/22 PT-OP-B Current Condition Start: 03/08/22 17:00 Freq: Status: Active Protocol: Document 03/17/24 11:29 SAK (Rec: 03/17/24 12:23 SAK [id number]) Current Condition History of Current Condition Onset Date 12/16/21 Current Complaints Paraplegia History of Current Condition Pt is a 71 year old male with a very unfortunate medical history. Pt was hiking [employer] on 12/16/21 with a friend, finished up, drive back to his friend's home to drop him off, and noticed his left leg was collapsing. By the time pt drove home, both legs were giving out and numb. Pt was suddenly paralized from the waist down, was taken to the ED, and was flown to [facility] on 12/17/21. The following day, he underwent a laminectomy to relieve pressure from the thoracic epidural hematoma which had developed following his hike, which was pressing on his spinal cord. Following surgery , pt was in recovery for a week and was then transfered to rehab for 20 days, when he was finally discharged home in a wheelchair on 01/19/22. Pt reports his surgeon informed him that it is a possibility that he gets some return of nerve function. Has experienced some changes in his right LE, but has no motor function at this time from ~ T10 down. Minimal sensory return on right side, none on left. Pt has been anxious to get in to therapy and do everything he can to help return to function. Pt's , who attended his evaluation, notes that she has been doing a lot of PROM in his legs at night to keep everything moving. Pt can feel some stretching during PROM in his right leg. Pt has additionally already started occupational therapy, and has been practicing some seated stabilization. Pt transfers with a slide board, but notes it is difficult to do into his car, because he has to transfer upward at an incline. PT-OP-C Subjective Start: 03/08/22 17:00 Freq: Status: Active Protocol: Document 09/22/24 14:32 NBM (Rec: 09/22/24 16:07 NBM Laptop) OP-PT Subjective Patient Comments Patient Comments Toby reports he used his new rig to go in the block and met a person who had a similar condition after a snowboarding accident and learned to walk again. That person felt that using the pool was one of the most helpful things. I got all excited about that. PT-OP-G Mobility & Gait Start: 03/08/22 17:00 Freq: Status: Active Protocol: Document 07/23/24 12:17 DCW (Rec: 07/23/24 12:52 DCW [id number]) OP Mobility Evaluation Transfers Bed to Chair Transfers Transfers using UE, improved with side-side movement, requires minimal verbal cues for LE positioning Car Transfers uses slide board, stabilizes front to back and prevent slide down board Wheelchair Management Type of Wheelchair Manual w/c Assessment Details Unable to perform tilt back to get over curb. Able to clear 2 obstacle 60-70% of the time . PT-OP-H Neuro Start: 03/08/22 17:00 Freq: Status: Active Protocol: Document 07/23/24 12:17 DCW (Rec: 07/23/24 12:52 DCW [id number]) Sensation Evaluation Gross Sensation Gross Sensation Left LE Impaired,Right LE Impaired,Trunk Impaired Sensation Description Paresthesia,Numbness,Tingling, Pins & [place],Burning Dermatome Impairments L1,L2,L3,L4,L5,S1,S2,S3,S4-5 Location Details Right Leg Light Touch Impaired Sharp/Dull Impaired Deep Pressure Intact/Normal Hot/Cold Absent Protective Sensation Absent Proprioception (Position) Impaired Kinesthesia (Movement) Impaired Two-Point Discrimination Impaired Tactile Localization Impaired Stereognosis Impaired Left Leg Light Touch Absent Sharp/Dull Absent Deep Pressure Impaired Hot/Cold Impaired Protective Sensation Absent Proprioception (Position) Absent Kinesthesia (Movement) Impaired Two-Point Discrimination Absent Tactile Localization Absent Stereognosis Absent Comments Summary Comments B protective reflex vs sharp present Deep Tendon Reflex & Clonus Assessment Deep Tendon Reflex Right Achilles Deep Tendon Reflex 2+ Normal Right Patellar Deep Tendon Reflex 2+ Normal Left Achilles Deep Tendon Reflex 2+ Normal Left Patellar Deep Tendon Reflex 1+ Diminished Ankle Clonus Right Clonus Assessment Sustained Left Clonus Assessment Sustained Muscle Tone Tone Assessment Right Lower Extremity Flexor Tone Description Moderate Hypertonicity Extensor Tone Description Moderate Hypertonicity Left Lower Extremity Flexor Tone Description Moderate Hypertonicity Extensor Tone Description Moderate Hypertonicity PT-OP-J Posture/Palpation/Skin Start: 03/08/22 17:00 Freq: Status: Active Protocol: Document 07/23/24 12:17 DCW (Rec: 07/23/24 12:52 DCW [id number]) Posture Evaluation Comments Posture Comments Sitting EOB with good core control and no instability, uses UEs in lap for support. Recovers from directional pushing. Improved ability to reach outside of base of support. PT-OP-M Strength Start: 08/21/22 15:38 Freq: Status: Active Protocol: Document 07/23/24 12:17 DCW (Rec: 07/23/24 12:52 DC [id number]) Trunk Strength Trunk Manual Muscle Testing Core Stabilization Able to hold himself up in partial lean using abdominal strength for 15 second Shoulder Strength Shoulder Manual Muscle Testing Right Flexion 4+ Good+ Extension 4+ Good+ Abduction (C5) 4+ Good+ External Rotation 4- Good- Internal Rotation 4+ Good+ Left Flexion 4+ Good+ Extension 4+ Good+ Abduction (C5) 4+ Good+ External Rotation 4- Good- Internal Rotation 4+ Good+ Elbow/Forearm Strength Elbow and Forearm Manual Muscle Testing Right Flexion (C6) 4+ Good+ Extension (C7) 4+ Good+ Left Flexion (C6) 4+ Good+ Extension (C7) 4- Good- Hand Almond Roaster/Pinch Strength Hand Dominance Hand Dominance Right Hand Strength Right Almond Roaster (lbs) 90 Left Almond Roaster (lbs) 85 Hip Strength Hip Manual Muscle Testing Right Flexion (L2) 1 Trace Extension (S1) 2- Poor- Adduction 2- Poor- Left Flexion (L2) 1 Trace Extension (S1) 2- Poor- Adduction 1 Trace Knee Strength Knee Manual Muscle Testing Right Flexion (S2) 2- Poor- Extension (L3) 1 Trace Left Flexion (S2) 2- Poor- Extension (L3) 1 Trace Ankle/Foot Strength Ankle and Foot Manual Muscle Testing Right Dorsiflexion (L4) 1 Trace Plantarflexion (S1) 2 Poor Left Plantarflexion (S1) 1 Trace PT-OP-Q Treatments Start: 03/08/22 17:00 Freq: Status: Active Protocol: Document 09/22/24 14:32 NBM (Rec: 09/22/24 16:07 [facility] Laptop) Cardio Equipment Recumbent Stepper (Sci-Fit) Duration (Minutes) 10 Resistance 9 Seat Position Seat 10, Handles 9 Other Nu-Step, SPM 50-60, occ cues for pacing Therapeutic Exercises Supine Exercises Core Supine Exercise Name TrA w/breath: 1.TrA isolation 2.B OH reach>resisted 3. 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 x12 2. x5 ea, caregiver anchoring Tb 3. x5 Comments hooklying; EQUITY DIRECTOR stabilizing lower extremities Hip Flexor Stretch Supine Exercise Name Hip Flexor Stretch (UE W, T)- gravity-assisted Side bilateral Equipment Used Legs off edge of mat table Reps/Minutes 2' Comments positive feedback response Therapeutic Activity Therapeutic Activity squat/lateral scoot transfer Name squat pivot transfer Reps/Minutes x1 ea Comments w/c<> Nu-step and w/c<>black mat table. close SBA>CGA. PT-OP-T Assessment and Plan Start: 03/08/22 17:00 Freq: Status: Active Protocol: Document 09/22/24 14:32 NBM (Rec: 09/22/24 16:07 [facility] Laptop) Physical Therapy Assessment Goals Four Impairment Bilateral triceps weakness (R 4-, L 3+) Usp Goal (LTG) Pt to demonstrate improved triceps strength to at least 4 /5 bilaterally for elbow extension in order to improve transfer ability. LTG Duration 10/21/24 - Improving Three Impairment Pt does not have any motor function throughout bilateral LEs Short Term Goal (STG) Pt to demonstrate 1/5 trace motor contraction in at least one quad in order to begin focus on LE mobility if neural functional return begins. STG Duration Met Radiologist Diagnostic Goal (LTG) Pt to demonstrate right quad strength to at least 2/5, demonstrating movement into ROM in an antigravity position LTG Duration 10/21/24 Two Impairment Pt struggles with lateral transfer/scooting along EOB Usp Goal (LTG) Pt to perform lateral scoot transfer using proper technique without any verbal cues 4x in a row. LTG Duration 10/21/24 One Impairment Pt does not have an appropriate home exercise program Short Term Goal (STG) Pt to be independent and compliant with an appropriate HEP STG Duration 10/21/24 Assessment Summary Assessment Treatment focus on core strengthening in hooklying with emphasis on maintaining appropriate Transverse abdominis activation without breath holding compensation; Toby demonstrates improved performance with cueing and repetition. Physical Therapy Plan Frequency and Duration Frequency of Treatment 2x/Week Plan of Care Start Date 07/23/24 Plan of Care End Date 10/21/24 Therapeutic Interventions Therapeutic Interventions Aquatic Therapy,Balance Training,Coordination Training ,Gait Training,Home Exercise Program,Manual Therapy, Neuromuscular Re-education, Orthotic/Prosthetic Management ,Patient/Caregiver Education, Self-Care/Home Management, Sensory Integration,Soft Tissue Mobilization, Therapeutic Activities, Therapeutic Exercises, Wheelchair Management Next Visit Focus/Plan Next Note Type Treatment Note Next Visit Plan Next: core progression in hooklying or quadruped. Continue PT per POC: Continue L log roll, L SL>quadruped, Lateral transfers to elevated surfaces more trunk flexion/ frequent scoots decreased assist, Wheelchair wheelies, curb management, POC: Continue UE and core strengthening, LE PROM and manual stretching. Transfers, mobility, LE ROM, pt will benefit from continued breakdown of transfers to improve efficiency and mechanics, as well as working on more seated balance EOB.
--- NOTE | 2024-09-24 16:27 | PT.OTN ---
Current Diagnoses Paraplegia, unspecified (09/24/24) Other specified personal risk factors, not elsewhere classified (09/24/24) Other specified postprocedural states (09/24/24) Physical Therapy Treatment Note PT-OP-A Visit Information Start: 03/08/22 17:00 Freq: Status: Active Protocol: Document 09/24/24 15:16 AB (Rec: 09/24/24 16:27 AB Laptop) Out-Patient Physical Therapy Visit Information Visit Information Visit Type Treatment Note Visit Start Time 15:27 Visit Stop Time 16:10 Visit Number [id number] Number of GANG LEADER Visits 2 Evaluation Information Evaluation Date 03/08/22 PT-OP-B Current Condition Start: 03/08/22 17:00 Freq: Status: Active Protocol: Document 03/17/24 11:29 SAK (Rec: 03/17/24 12:23 SAK [id number]) Current Condition History of Current Condition Onset Date 12/16/21 Current Complaints Paraplegia History of Current Condition Pt is a 71 year old male with a very unfortunate medical history. Pt was hiking [employer] on 12/16/21 with a friend, finished up, drive back to his friend's home to drop him off, and noticed his left leg was collapsing. By the time pt drove home, both legs were giving out and numb. Pt was suddenly paralized from the waist down, was taken to the ED, and was flown to [facility] on 12/17/21. The following day, he underwent a laminectomy to relieve pressure from the thoracic epidural hematoma which had developed following his hike, which was pressing on his spinal cord. Following surgery , pt was in recovery for a week and was then transfered to rehab for 20 days, when he was finally discharged home in a wheelchair on 01/19/22. Pt reports his surgeon informed him that it is a possibility that he gets some return of nerve function. Has experienced some changes in his right LE, but has no motor function at this time from ~ T10 down. Minimal sensory return on right side, none on left. Pt has been anxious to get in to therapy and do everything he can to help return to function. Pt's , who attended his evaluation, notes that she has been doing a lot of PROM in his legs at night to keep everything moving. Pt can feel some stretching during PROM in his right leg. Pt has additionally already started occupational therapy, and has been practicing some seated stabilization. Pt transfers with a slide board, but notes it is difficult to do into his car, because he has to transfer upward at an incline. PT-OP-C Subjective Start: 03/08/22 17:00 Freq: Status: Active Protocol: Document 09/24/24 15:16 AB (Rec: 09/24/24 16:27 AB Laptop) OP-PT Subjective Patient Comments Patient Comments Toby reports nothing new has happened since Friday. PT-OP-G Mobility & Gait Start: 03/08/22 17:00 Freq: Status: Active Protocol: Document 07/23/24 12:17 DCW (Rec: 07/23/24 12:52 DCW [id number]) OP Mobility Evaluation Transfers Bed to Chair Transfers Transfers using UE, improved with side-side movement, requires minimal verbal cues for LE positioning Car Transfers uses slide board, stabilizes front to back and prevent slide down board Wheelchair Management Type of Wheelchair Manual w/c Assessment Details Unable to perform tilt back to get over curb. Able to clear 2 obstacle 60-70% of the time . PT-OP-H Neuro Start: 03/08/22 17:00 Freq: Status: Active Protocol: Document 07/23/24 12:17 DCW (Rec: 07/23/24 12:52 DCW [id number]) Sensation Evaluation Gross Sensation Gross Sensation Left LE Impaired,Right LE Impaired,Trunk Impaired Sensation Description Paresthesia,Numbness,Tingling, Pins & [place],Burning Dermatome Impairments L1,L2,L3,L4,L5,S1,S2,S3,S4-5 Location Details Right Leg Light Touch Impaired Sharp/Dull Impaired Deep Pressure Intact/Normal Hot/Cold Absent Protective Sensation Absent Proprioception (Position) Impaired Kinesthesia (Movement) Impaired Two-Point Discrimination Impaired Tactile Localization Impaired Stereognosis Impaired Left Leg Light Touch Absent Sharp/Dull Absent Deep Pressure Impaired Hot/Cold Impaired Protective Sensation Absent Proprioception (Position) Absent Kinesthesia (Movement) Impaired Two-Point Discrimination Absent Tactile Localization Absent Stereognosis Absent Comments Summary Comments B protective reflex vs sharp present Deep Tendon Reflex & Clonus Assessment Deep Tendon Reflex Right Achilles Deep Tendon Reflex 2+ Normal Right Patellar Deep Tendon Reflex 2+ Normal Left Achilles Deep Tendon Reflex 2+ Normal Left Patellar Deep Tendon Reflex 1+ Diminished Ankle Clonus Right Clonus Assessment Sustained Left Clonus Assessment Sustained Muscle Tone Tone Assessment Right Lower Extremity Flexor Tone Description Moderate Hypertonicity Extensor Tone Description Moderate Hypertonicity Left Lower Extremity Flexor Tone Description Moderate Hypertonicity Extensor Tone Description Moderate Hypertonicity PT-OP-J Posture/Palpation/Skin Start: 03/08/22 17:00 Freq: Status: Active Protocol: Document 07/23/24 12:17 DCW (Rec: 07/23/24 12:52 DCW [id number]) Posture Evaluation Comments Posture Comments Sitting EOB with good core control and no instability, uses UEs in lap for support. Recovers from directional pushing. Improved ability to reach outside of base of support. PT-OP-M Strength Start: 08/21/22 15:38 Freq: Status: Active Protocol: Document 07/23/24 12:17 DCW (Rec: 07/23/24 12:52 DCW [id number]) Trunk Strength Trunk Manual Muscle Testing Core Stabilization Able to hold himself up in partial lean using abdominal strength for 15 second Shoulder Strength Shoulder Manual Muscle Testing Right Flexion 4+ Good+ Extension 4+ Good+ Abduction (C5) 4+ Good+ External Rotation 4- Good- Internal Rotation 4+ Good+ Left Flexion 4+ Good+ Extension 4+ Good+ Abduction (C5) 4+ Good+ External Rotation 4- Good- Internal Rotation 4+ Good+ Elbow/Forearm Strength Elbow and Forearm Manual Muscle Testing Right Flexion (C6) 4+ Good+ Extension (C7) 4+ Good+ Left Flexion (C6) 4+ Good+ Extension (C7) 4- Good- Hand Stream Control Officer/Pinch Strength Hand Dominance Hand Dominance Right Hand Strength Right Stream Control Officer (lbs) 90 Left Stream Control Officer (lbs) 85 Hip Strength Hip Manual Muscle Testing Right Flexion (L2) 1 Trace Extension (S1) 2- Poor- Adduction 2- Poor- Left Flexion (L2) 1 Trace Extension (S1) 2- Poor- Adduction 1 Trace Knee Strength Knee Manual Muscle Testing Right Flexion (S2) 2- Poor- Extension (L3) 1 Trace Left Flexion (S2) 2- Poor- Extension (L3) 1 Trace Ankle/Foot Strength Ankle and Foot Manual Muscle Testing Right Dorsiflexion (L4) 1 Trace Plantarflexion (S1) 2 Poor Left Plantarflexion (S1) 1 Trace PT-OP-Q Treatments Start: 03/08/22 17:00 Freq: Status: Active Protocol: Document 09/24/24 15:16 AB (Rec: 09/24/24 16:27 AB Laptop) Cardio Equipment Recumbent Stepper (Sci-Fit) Duration (Minutes) 8 Resistance 9 Seat Position Seat 10, Handles 9 Other Nu-Step, SPM 50-60, occ cues for pacing, Inc trials of Toby placing foot Gym Equipment Cable Column (Body Solid) lateral pulldown Details Lat Pulldown Resistance 65# x15 Therapeutic Exercises Sitting Exercises Seated scooting Sitting Exercise Name L and R, final reps with push up blocks Reps/Minutes * and LE positioning Comments for triceps strength and core strength, VC for clearance every scoot, and * Other Exercises Push-ups Other Exercise Name Push-up in quadruped Reps/Minutes X 25 Comments Patient reports feels good Neuro Re-Education Treatment Other Activities tapping to facilitate quad Details seated and sidelying Comments bilaterally, no activation noted PT-OP-T Assessment and Plan Start: 03/08/22 17:00 Freq: Status: Active Protocol: Document 09/24/24 15:16 AB (Rec: 09/24/24 16:27 AB Laptop) Physical Therapy Assessment Goals Four Impairment Bilateral triceps weakness (R 4-, L 3+) Residential Goal (LTG) Pt to demonstrate improved triceps strength to at least 4 /5 bilaterally for elbow extension in order to improve transfer ability. LTG Duration 10/21/24 - Improving Three Impairment Pt does not have any motor function throughout bilateral LEs Short Term Goal (STG) Pt to demonstrate 1/5 trace motor contraction in at least one quad in order to begin focus on LE mobility if neural functional return begins. STG Duration Met Interlocker Goal (LTG) Pt to demonstrate right quad strength to at least 2/5, demonstrating movement into ROM in an antigravity position LTG Duration 10/21/24 Two Impairment Pt struggles with lateral transfer/scooting along EOB Residential Goal (LTG) Pt to perform lateral scoot transfer using proper technique without any verbal cues 4x in a row. LTG Duration 10/21/24 One Impairment Pt does not have an appropriate home exercise program Short Term Goal (STG) Pt to be independent and compliant with an appropriate HEP STG Duration 10/21/24 Assessment Summary Assessment Focus on triceps and core strength with increased scooting L and right along side mat ( Pt reports cannot do this at home) Able to clear buttocks throughout, but dec clearance with fatigue, trial of push up blocks when fatigued, with too good scoots , inc clearance then less, likely due to fatigue. Trial of tapping to facilitate quad with knee ex attempts seated and sidelying bilaterally with no responce. Physical Therapy Plan Frequency and Duration Frequency of Treatment 2x/Week Plan of Care Start Date 07/23/24 Plan of Care End Date 10/21/24 Next Visit Focus/Plan Next Note Type Treatment Note Next Visit Plan Next: core progression in hooklying or quadruped. Continue PT per POC: Continue L log roll, L SL>quadruped, Lateral transfers to elevated surfaces more trunk flexion/ frequent scoots decreased assist, Wheelchair wheelies, curb management, POC: Continue UE and core strengthening, LE PROM and manual stretching. Transfers, mobility, LE ROM, pt will benefit from continued breakdown of transfers to improve efficiency and mechanics, as well as working on more seated balance EOB.
--- NOTE | 2024-09-28 15:55 | PT.OTN ---
Current Diagnoses Paraplegia, unspecified (09/28/24) Other specified personal risk factors, not elsewhere classified (09/28/24) Other specified postprocedural states (09/28/24) Physical Therapy Treatment Note PT-OP-A Visit Information Start: 03/08/22 17:00 Freq: Status: Active Protocol: Document 09/28/24 14:38 NBM (Rec: 09/28/24 15:54 NBM Laptop) Out-Patient Physical Therapy Visit Information Visit Information Visit Type Treatment Note Visit Start Time 14:35 Visit Stop Time 15:22 Visit Number [id number] Number of DIRECTOR OF RELIGIOUS ACTIVITIES Visits 3 Evaluation Information Evaluation Date 03/08/22 PT-OP-B Current Condition Start: 03/08/22 17:00 Freq: Status: Active Protocol: Document 03/17/24 11:29 SAK (Rec: 03/17/24 12:23 SAK [id number]) Current Condition History of Current Condition Onset Date 12/16/21 Current Complaints Paraplegia History of Current Condition Pt is a 71 year old male with a very unfortunate medical history. Pt was hiking [employer] on 12/16/21 with a friend, finished up, drive back to his friend's home to drop him off, and noticed his left leg was collapsing. By the time pt drove home, both legs were giving out and numb. Pt was suddenly paralized from the waist down, was taken to the ED, and was flown to [facility] on 12/17/21. The following day, he underwent a laminectomy to relieve pressure from the thoracic epidural hematoma which had developed following his hike, which was pressing on his spinal cord. Following surgery , pt was in recovery for a week and was then transfered to rehab for 20 days, when he was finally discharged home in a wheelchair on 01/19/22. Pt reports his surgeon informed him that it is a possibility that he gets some return of nerve function. Has experienced some changes in his right LE, but has no motor function at this time from ~ T10 down. Minimal sensory return on right side, none on left. Pt has been anxious to get in to therapy and do everything he can to help return to function. Pt's , who attended his evaluation, notes that she has been doing a lot of PROM in his legs at night to keep everything moving. Pt can feel some stretching during PROM in his right leg. Pt has additionally already started occupational therapy, and has been practicing some seated stabilization. Pt transfers with a slide board, but notes it is difficult to do into his car, because he has to transfer upward at an incline. PT-OP-C Subjective Start: 03/08/22 17:00 Freq: Status: Active Protocol: Document 09/28/24 14:38 NBM (Rec: 09/28/24 15:54 NBM Laptop) OP-PT Subjective Patient Comments Patient Comments Toby reports no new changes. 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 End of session he reports he struggles to roll onto side without arm rails and would like to have more ease rolling from back to side at night to prevent pressure sores. PT-OP-G Mobility & Gait Start: 03/08/22 17:00 Freq: Status: Active Protocol: Document 07/23/24 12:17 DCW (Rec: 07/23/24 12:52 DCW [id number]) OP Mobility Evaluation Transfers Bed to Chair Transfers Transfers using UE, improved with side-side movement, requires minimal verbal cues for LE positioning Car Transfers uses slide board, stabilizes front to back and prevent slide down board Wheelchair Management Type of Wheelchair Manual w/c Assessment Details Unable to perform tilt back to get over curb. Able to clear 2 obstacle 60-70% of the time . PT-OP-H Neuro Start: 03/08/22 17:00 Freq: Status: Active Protocol: Document 07/23/24 12:17 DCW (Rec: 07/23/24 12:52 DCW [id number]) Sensation Evaluation Gross Sensation Gross Sensation Left LE Impaired,Right LE Impaired,Trunk Impaired Sensation Description Paresthesia,Numbness,Tingling, Pins & [place],Burning Dermatome Impairments L1,L2,L3,L4,L5,S1,S2,S3,S4-5 Location Details Right Leg Light Touch Impaired Sharp/Dull Impaired Deep Pressure Intact/Normal Hot/Cold Absent Protective Sensation Absent Proprioception (Position) Impaired Kinesthesia (Movement) Impaired Two-Point Discrimination Impaired Tactile Localization Impaired Stereognosis Impaired Left Leg Light Touch Absent Sharp/Dull Absent Deep Pressure Impaired Hot/Cold Impaired Protective Sensation Absent Proprioception (Position) Absent Kinesthesia (Movement) Impaired Two-Point Discrimination Absent Tactile Localization Absent Stereognosis Absent Comments Summary Comments B protective reflex vs sharp present Deep Tendon Reflex & Clonus Assessment Deep Tendon Reflex Right Achilles Deep Tendon Reflex 2+ Normal Right Patellar Deep Tendon Reflex 2+ Normal Left Achilles Deep Tendon Reflex 2+ Normal Left Patellar Deep Tendon Reflex 1+ Diminished Ankle Clonus Right Clonus Assessment Sustained Left Clonus Assessment Sustained Muscle Tone Tone Assessment Right Lower Extremity Flexor Tone Description Moderate Hypertonicity Extensor Tone Description Moderate Hypertonicity Left Lower Extremity Flexor Tone Description Moderate Hypertonicity Extensor Tone Description Moderate Hypertonicity PT-OP-J Posture/Palpation/Skin Start: 03/08/22 17:00 Freq: Status: Active Protocol: Document 07/23/24 12:17 DCW (Rec: 07/23/24 12:52 DCW [id number]) Posture Evaluation Comments Posture Comments Sitting EOB with good core control and no instability, uses UEs in lap for support. Recovers from directional pushing. Improved ability to reach outside of base of support. PT-OP-M Strength Start: 08/21/22 15:38 Freq: Status: Active Protocol: Document 07/23/24 12:17 DCW (Rec: 07/23/24 12:52 DC [id number]) Trunk Strength Trunk Manual Muscle Testing Core Stabilization Able to hold himself up in partial lean using abdominal strength for 15 second Shoulder Strength Shoulder Manual Muscle Testing Right Flexion 4+ Good+ Extension 4+ Good+ Abduction (C5) 4+ Good+ External Rotation 4- Good- Internal Rotation 4+ Good+ Left Flexion 4+ Good+ Extension 4+ Good+ Abduction (C5) 4+ Good+ External Rotation 4- Good- Internal Rotation 4+ Good+ Elbow/Forearm Strength Elbow and Forearm Manual Muscle Testing Right Flexion (C6) 4+ Good+ Extension (C7) 4+ Good+ Left Flexion (C6) 4+ Good+ Extension (C7) 4- Good- Hand House Father/Pinch Strength Hand Dominance Hand Dominance Right Hand Strength Right House Father (lbs) 90 Left House Father (lbs) 85 Hip Strength Hip Manual Muscle Testing Right Flexion (L2) 1 Trace Extension (S1) 2- Poor- Adduction 2- Poor- Left Flexion (L2) 1 Trace Extension (S1) 2- Poor- Adduction 1 Trace Knee Strength Knee Manual Muscle Testing Right Flexion (S2) 2- Poor- Extension (L3) 1 Trace Left Flexion (S2) 2- Poor- Extension (L3) 1 Trace Ankle/Foot Strength Ankle and Foot Manual Muscle Testing Right Dorsiflexion (L4) 1 Trace Plantarflexion (S1) 2 Poor Left Plantarflexion (S1) 1 Trace PT-OP-Q Treatments Start: 03/08/22 17:00 Freq: Status: Active Protocol: Document 09/28/24 14:38 NBM (Rec: 09/28/24 15:54 NBM Laptop) Gym Equipment Cable Column (Body Solid) lateral pulldown Details Lat Pulldown Resistance 65# 2x15 Therapeutic Activity Therapeutic Activity squat/lateral scoot transfer Name squat pivot transfer Reps/Minutes x1 ea Comments w/c<>black mat table. close SBA>CGA. Neuro Re-Education Treatment Coordination Activities core Details hooklying; DIRECTOR OF RELIGIOUS ACTIVITIES stabilizing lower extremities Equipment pillows, monitoring TrA medial to ASIS, strap above knees for LE alignment Comments TrA w/breath: 1.TrA isolation 3' 2.B OH reach>resisted 10x ea Lvl 1>2 aide holding Tb 3.Chest production specialist Lvl 1>2 10x ea 4.D1/D2 10x ea PT-OP-T Assessment and Plan Start: 03/08/22 17:00 Freq: Status: Active Protocol: Document 09/28/24 14:38 NBM (Rec: 09/28/24 15:54 NBM Laptop) Physical Therapy Assessment Assessment Summary Assessment Treatment focus on core strengthening. Pt demos abdominal overactivation initially but demos improved self-awareness of Transverse abdominis m. isolation with cueing, monitoring and repetition. He is able to progress from Level 1 to Level 2 Tb for upper extremity resistance while maintaining TrA activation without breathholding compensation, and he self corrects for breathwork by end of session. Physical Therapy Plan Frequency and Duration Frequency of Treatment 2x/Week Plan of Care Start Date 07/23/24 Plan of Care End Date 10/21/24 Therapeutic Interventions Therapeutic Interventions Aquatic Therapy,Balance Training,Coordination Training ,Gait Training,Home Exercise Program,Manual Therapy, Neuromuscular Re-education, Orthotic/Prosthetic Management ,Patient/Caregiver Education, Self-Care/Home Management, Sensory Integration,Soft Tissue Mobilization, Therapeutic Activities, Therapeutic Exercises, Wheelchair Management Next Visit Focus/Plan Next Note Type Treatment Note Next Visit Plan Next: core progression in hooklying or quadruped. Consider side planks and supine>sidelying bed mobility focus. Continue PT per POC: Continue L log roll, L SL>quadruped, Lateral transfers to elevated surfaces more trunk flexion/ frequent scoots decreased assist, Wheelchair wheelies, curb management, POC: Continue UE and core strengthening, LE PROM and manual stretching. Transfers, mobility, LE ROM, pt will benefit from continued breakdown of transfers to improve efficiency and mechanics, as well as working on more seated balance EOB.
--- NOTE | 2024-10-01 16:05 | PT.OTN ---
Current Diagnoses Paraplegia, unspecified (10/01/24) Other specified personal risk factors, not elsewhere classified (10/01/24) Other specified postprocedural states (10/01/24) Physical Therapy Treatment Note PT-OP-A Visit Information Start: 03/08/22 17:00 Freq: Status: Active Protocol: Document 10/01/24 15:19 DCW (Rec: 10/01/24 16:05 DCW [id number]) Out-Patient Physical Therapy Visit Information Visit Information Visit Type Treatment Note Visit Start Time 15:19 Visit Stop Time 16:00 Visit Number [id number] Number of INDUSTRIAL BOILERMAKER Visits 0 Evaluation Information Evaluation Date 03/08/22 PT-OP-B Current Condition Start: 03/08/22 17:00 Freq: Status: Active Protocol: Document 03/17/24 11:29 SAK (Rec: 03/17/24 12:23 SAK [id number]) Current Condition History of Current Condition Onset Date 12/16/21 Current Complaints Paraplegia History of Current Condition Pt is a 71 year old male with a very unfortunate medical history. Pt was hiking [employer] on 12/16/21 with a friend, finished up, drive back to his friend's home to drop him off, and noticed his left leg was collapsing. By the time pt drove home, both legs were giving out and numb. Pt was suddenly paralized from the waist down, was taken to the ED, and was flown to [facility] on 12/17/21. The following day, he underwent a laminectomy to relieve pressure from the thoracic epidural hematoma which had developed following his hike, which was pressing on his spinal cord. Following surgery , pt was in recovery for a week and was then transfered to rehab for 20 days, when he was finally discharged home in a wheelchair on 01/19/22. Pt reports his surgeon informed him that it is a possibility that he gets some return of nerve function. Has experienced some changes in his right LE, but has no motor function at this time from ~ T10 down. Minimal sensory return on right side, none on left. Pt has been anxious to get in to therapy and do everything he can to help return to function. Pt's , who attended his evaluation, notes that she has been doing a lot of PROM in his legs at night to keep everything moving. Pt can feel some stretching during PROM in his right leg. Pt has additionally already started occupational therapy, and has been practicing some seated stabilization. Pt transfers with a slide board, but notes it is difficult to do into his car, because he has to transfer upward at an incline. PT-OP-C Subjective Start: 03/08/22 17:00 Freq: Status: Active Protocol: Document 10/01/24 15:19 DCW (Rec: 10/01/24 16:05 DCW [id number]) OP-PT Subjective Patient Comments Patient Comments Pt notes that the back of his w/c has been a little more wobbly. PT-OP-G Mobility & Gait Start: 03/08/22 17:00 Freq: Status: Active Protocol: Document 07/23/24 12:17 DCW (Rec: 07/23/24 12:52 DCW [id number]) OP Mobility Evaluation Transfers Bed to Chair Transfers Transfers using UE, improved with side-side movement, requires minimal verbal cues for LE positioning Car Transfers uses slide board, stabilizes front to back and prevent slide down board Wheelchair Management Type of Wheelchair Manual w/c Assessment Details Unable to perform tilt back to get over curb. Able to clear 2 obstacle 60-70% of the time . PT-OP-H Neuro Start: 03/08/22 17:00 Freq: Status: Active Protocol: Document 07/23/24 12:17 DCW (Rec: 07/23/24 12:52 DCW [id number]) Sensation Evaluation Gross Sensation Gross Sensation Left LE Impaired,Right LE Impaired,Trunk Impaired Sensation Description Paresthesia,Numbness,Tingling, Pins & [place],Burning Dermatome Impairments L1,L2,L3,L4,L5,S1,S2,S3,S4-5 Location Details Right Leg Light Touch Impaired Sharp/Dull Impaired Deep Pressure Intact/Normal Hot/Cold Absent Protective Sensation Absent Proprioception (Position) Impaired Kinesthesia (Movement) Impaired Two-Point Discrimination Impaired Tactile Localization Impaired Stereognosis Impaired Left Leg Light Touch Absent Sharp/Dull Absent Deep Pressure Impaired Hot/Cold Impaired Protective Sensation Absent Proprioception (Position) Absent Kinesthesia (Movement) Impaired Two-Point Discrimination Absent Tactile Localization Absent Stereognosis Absent Comments Summary Comments B protective reflex vs sharp present Deep Tendon Reflex & Clonus Assessment Deep Tendon Reflex Right Achilles Deep Tendon Reflex 2+ Normal Right Patellar Deep Tendon Reflex 2+ Normal Left Achilles Deep Tendon Reflex 2+ Normal Left Patellar Deep Tendon Reflex 1+ Diminished Ankle Clonus Right Clonus Assessment Sustained Left Clonus Assessment Sustained Muscle Tone Tone Assessment Right Lower Extremity Flexor Tone Description Moderate Hypertonicity Extensor Tone Description Moderate Hypertonicity Left Lower Extremity Flexor Tone Description Moderate Hypertonicity Extensor Tone Description Moderate Hypertonicity PT-OP-J Posture/Palpation/Skin Start: 03/08/22 17:00 Freq: Status: Active Protocol: Document 07/23/24 12:17 DCW (Rec: 07/23/24 12:52 DCW [id number]) Posture Evaluation Comments Posture Comments Sitting EOB with good core control and no instability, uses UEs in lap for support. Recovers from directional pushing. Improved ability to reach outside of base of support. PT-OP-M Strength Start: 08/21/22 15:38 Freq: Status: Active Protocol: Document 07/23/24 12:17 DCW (Rec: 07/23/24 12:52 DCW [id number]) Trunk Strength Trunk Manual Muscle Testing Core Stabilization Able to hold himself up in partial lean using abdominal strength for 15 second Shoulder Strength Shoulder Manual Muscle Testing Right Flexion 4+ Good+ Extension 4+ Good+ Abduction (C5) 4+ Good+ External Rotation 4- Good- Internal Rotation 4+ Good+ Left Flexion 4+ Good+ Extension 4+ Good+ Abduction (C5) 4+ Good+ External Rotation 4- Good- Internal Rotation 4+ Good+ Elbow/Forearm Strength Elbow and Forearm Manual Muscle Testing Right Flexion (C6) 4+ Good+ Extension (C7) 4+ Good+ Left Flexion (C6) 4+ Good+ Extension (C7) 4- Good- Hand Metalizer/Pinch Strength Hand Dominance Hand Dominance Right Hand Strength Right Metalizer (lbs) 90 Left Metalizer (lbs) 85 Hip Strength Hip Manual Muscle Testing Right Flexion (L2) 1 Trace Extension (S1) 2- Poor- Adduction 2- Poor- Left Flexion (L2) 1 Trace Extension (S1) 2- Poor- Adduction 1 Trace Knee Strength Knee Manual Muscle Testing Right Flexion (S2) 2- Poor- Extension (L3) 1 Trace Left Flexion (S2) 2- Poor- Extension (L3) 1 Trace Ankle/Foot Strength Ankle and Foot Manual Muscle Testing Right Dorsiflexion (L4) 1 Trace Plantarflexion (S1) 2 Poor Left Plantarflexion (S1) 1 Trace PT-OP-Q Treatments Start: 03/08/22 17:00 Freq: Status: Active Protocol: Document 10/01/24 15:19 DCW (Rec: 10/01/24 16:05 [facility] [id number]) Cardio Equipment Recumbent Stepper (Sci-Fit) Duration (Minutes) 10 Resistance 8 Seat Position Seat 10, Handles 9 Other Nu-Step, 40-50 stm Therapeutic Exercises Prone Exercises prone over 4 pillows Prone Exercise Name supported trunk extension, hip flexor stretch Equipment Used over 4 pillows, towel roll under forehead Comments positive feedback response Other Exercises short kneel Other Exercise Name short kneeling /c self thigh support Thread the needle Other Exercise Name Thread the needle on hands/ knees, then forearms/knees Side bilateral Push-ups Other Exercise Name Push-up in quadruped Reps/Minutes x30, x20, x10 Therapeutic Activity Therapeutic Activity supine>prone>quadruped Name SBA: into quadruped<> L SL, heavy pt BUE support PT-OP-T Assessment and Plan Start: 03/08/22 17:00 Freq: Status: Active Protocol: Document 10/01/24 15:19 DCW (Rec: 10/01/24 16:05 [facility] [id number]) Physical Therapy Assessment Impairments Impairments Activity Tolerance,Balance, Coordination,Functional Activities,Functional Mobility ,Gait,Integument,Sensation, Soft Tissue Mobility,Strength, Tone,Transfers Goals Four Impairment Bilateral triceps weakness (R 4-, L 3+) Long-Term Goal (LTG) Pt to demonstrate improved triceps strength to at least 4 /5 bilaterally for elbow extension in order to improve transfer ability. LTG Duration 10/21/24 - Improving Three Impairment Pt does not have any motor function throughout bilateral LEs Short Term Goal (STG) Pt to demonstrate 1/5 trace motor contraction in at least one quad in order to begin focus on LE mobility if neural functional return begins. STG Duration Met Molten Iron Pourer Goal (LTG) Pt to demonstrate right quad strength to at least 2/5, demonstrating movement into ROM in an antigravity position LTG Duration 10/21/24 Two Impairment Pt struggles with lateral transfer/scooting along EOB Molten Iron Pourer Goal (LTG) Pt to perform lateral scoot transfer using proper technique without any verbal cues 4x in a row. LTG Duration 10/21/24 One Impairment Pt does not have an appropriate home exercise program Short Term Goal (STG) Pt to be independent and compliant with an appropriate HEP STG Duration 10/21/24 Assessment Summary Assessment Pt demonstrating good quadruped activities today, performed a personal high number of push-up repetitions at x30, showing good improvement with upper extremity strength. Continue to focus on UE strength, functional mobility, and transfers. While pt was on NuStep today, therapist tightened a screw on his w/c to stop wobble of back rest. Physical Therapy Plan Frequency and Duration Frequency of Treatment 2x/Week Plan of Care Start Date 07/23/24 Plan of Care End Date 10/21/24 Therapeutic Interventions Therapeutic Interventions Aquatic Therapy,Balance Training,Coordination Training ,Gait Training,Home Exercise Program,Manual Therapy, Neuromuscular Re-education, Orthotic/Prosthetic Management ,Patient/Caregiver Education, Self-Care/Home Management, Sensory Integration,Soft Tissue Mobilization, Therapeutic Activities, Therapeutic Exercises, Wheelchair Management Next Visit Focus/Plan Next Note Type Treatment Note Next Visit Plan Next: core progression in hooklying or quadruped. Consider side planks and supine>sidelying bed mobility focus. Continue PT per POC: Continue L log roll, L SL>quadruped, Lateral transfers to elevated surfaces more trunk flexion/ frequent scoots decreased assist, Wheelchair wheelies, curb management, POC: Continue UE and core strengthening, LE PROM and manual stretching. Transfers, mobility, LE ROM, pt will benefit from continued breakdown of transfers to improve efficiency and mechanics, as well as working on more seated balance EOB.
--- NOTE | 2024-10-05 17:08 | PT.OTN ---
Current Diagnoses Paraplegia, unspecified (10/05/24) Other specified personal risk factors, not elsewhere classified (10/05/24) Other specified postprocedural states (10/05/24) Physical Therapy Treatment Note PT-OP-A Visit Information Start: 03/08/22 17:00 Freq: Status: Active Protocol: Document 10/05/24 13:53 NBM (Rec: 10/05/24 14:37 NBM Laptop) Out-Patient Physical Therapy Visit Information Visit Information Visit Type Treatment Note Visit Start Time 13:48 Visit Stop Time 14:36 Visit Number [id number] Number of CONSULTING UTILITY FORESTER Visits 1 Evaluation Information Evaluation Date 03/08/22 PT-OP-B Current Condition Start: 03/08/22 17:00 Freq: Status: Active Protocol: Document 03/17/24 11:29 SAK (Rec: 03/17/24 12:23 SAK [id number]) Current Condition History of Current Condition Onset Date 12/16/21 Current Complaints Paraplegia History of Current Condition Pt is a 71 year old male with a very unfortunate medical history. Pt was hiking [employer] on 12/16/21 with a friend, finished up, drive back to his friend's home to drop him off, and noticed his left leg was collapsing. By the time pt drove home, both legs were giving out and numb. Pt was suddenly paralized from the waist down, was taken to the ED, and was flown to [facility] on 12/17/21. The following day, he underwent a laminectomy to relieve pressure from the thoracic epidural hematoma which had developed following his hike, which was pressing on his spinal cord. Following surgery , pt was in recovery for a week and was then transfered to rehab for 20 days, when he was finally discharged home in a wheelchair on 01/19/22. Pt reports his surgeon informed him that it is a possibility that he gets some return of nerve function. Has experienced some changes in his right LE, but has no motor function at this time from ~ T10 down. Minimal sensory return on right side, none on left. Pt has been anxious to get in to therapy and do everything he can to help return to function. Pt's , who attended his evaluation, notes that she has been doing a lot of PROM in his legs at night to keep everything moving. Pt can feel some stretching during PROM in his right leg. Pt has additionally already started occupational therapy, and has been practicing some seated stabilization. Pt transfers with a slide board, but notes it is difficult to do into his car, because he has to transfer upward at an incline. PT-OP-C Subjective Start: 03/08/22 17:00 Freq: Status: Active Protocol: Document 10/05/24 13:53 NBM (Rec: 10/05/24 16:47 NBM Laptop) OP-PT Subjective Patient Comments Patient Comments Toby reports his w/c has been better since screw was tightened last visit. Working on core requires a lot of mental focus. He likes upper body strengthening. PT-OP-G Mobility & Gait Start: 03/08/22 17:00 Freq: Status: Active Protocol: Document 07/23/24 12:17 DCW (Rec: 07/23/24 12:52 DCW [id number]) OP Mobility Evaluation Transfers Bed to Chair Transfers Transfers using UE, improved with side-side movement, requires minimal verbal cues for LE positioning Car Transfers uses slide board, stabilizes front to back and prevent slide down board Wheelchair Management Type of Wheelchair Manual w/c Assessment Details Unable to perform tilt back to get over curb. Able to clear 2 obstacle 60-70% of the time . PT-OP-H Neuro Start: 03/08/22 17:00 Freq: Status: Active Protocol: Document 07/23/24 12:17 DCW (Rec: 07/23/24 12:52 DCW [id number]) Sensation Evaluation Gross Sensation Gross Sensation Left LE Impaired,Right LE Impaired,Trunk Impaired Sensation Description Paresthesia,Numbness,Tingling, Pins & [place],Burning Dermatome Impairments L1,L2,L3,L4,L5,S1,S2,S3,S4-5 Location Details Right Leg Light Touch Impaired Sharp/Dull Impaired Deep Pressure Intact/Normal Hot/Cold Absent Protective Sensation Absent Proprioception (Position) Impaired Kinesthesia (Movement) Impaired Two-Point Discrimination Impaired Tactile Localization Impaired Stereognosis Impaired Left Leg Light Touch Absent Sharp/Dull Absent Deep Pressure Impaired Hot/Cold Impaired Protective Sensation Absent Proprioception (Position) Absent Kinesthesia (Movement) Impaired Two-Point Discrimination Absent Tactile Localization Absent Stereognosis Absent Comments Summary Comments B protective reflex vs sharp present Deep Tendon Reflex & Clonus Assessment Deep Tendon Reflex Right Achilles Deep Tendon Reflex 2+ Normal Right Patellar Deep Tendon Reflex 2+ Normal Left Achilles Deep Tendon Reflex 2+ Normal Left Patellar Deep Tendon Reflex 1+ Diminished Ankle Clonus Right Clonus Assessment Sustained Left Clonus Assessment Sustained Muscle Tone Tone Assessment Right Lower Extremity Flexor Tone Description Moderate Hypertonicity Extensor Tone Description Moderate Hypertonicity Left Lower Extremity Flexor Tone Description Moderate Hypertonicity Extensor Tone Description Moderate Hypertonicity PT-OP-J Posture/Palpation/Skin Start: 03/08/22 17:00 Freq: Status: Active Protocol: Document 07/23/24 12:17 DCW (Rec: 07/23/24 12:52 DCW [id number]) Posture Evaluation Comments Posture Comments Sitting EOB with good core control and no instability, uses UEs in lap for support. Recovers from directional pushing. Improved ability to reach outside of base of support. PT-OP-M Strength Start: 08/21/22 15:38 Freq: Status: Active Protocol: Document 07/23/24 12:17 DCW (Rec: 07/23/24 12:52 DCW [id number]) Trunk Strength Trunk Manual Muscle Testing Core Stabilization Able to hold himself up in partial lean using abdominal strength for 15 second Shoulder Strength Shoulder Manual Muscle Testing Right Flexion 4+ Good+ Extension 4+ Good+ Abduction (C5) 4+ Good+ External Rotation 4- Good- Internal Rotation 4+ Good+ Left Flexion 4+ Good+ Extension 4+ Good+ Abduction (C5) 4+ Good+ External Rotation 4- Good- Internal Rotation 4+ Good+ Elbow/Forearm Strength Elbow and Forearm Manual Muscle Testing Right Flexion (C6) 4+ Good+ Extension (C7) 4+ Good+ Left Flexion (C6) 4+ Good+ Extension (C7) 4- Good- Hand Assembly Cleaner/Pinch Strength Hand Dominance Hand Dominance Right Hand Strength Right Assembly Cleaner (lbs) 90 Left [employer]er (lbs) 85 Hip Strength Hip Manual Muscle Testing Right Flexion (L2) 1 Trace Extension (S1) 2- Poor- Adduction 2- Poor- Left Flexion (L2) 1 Trace Extension (S1) 2- Poor- Adduction 1 Trace Knee Strength Knee Manual Muscle Testing Right Flexion (S2) 2- Poor- Extension (L3) 1 Trace Left Flexion (S2) 2- Poor- Extension (L3) 1 Trace Ankle/Foot Strength Ankle and Foot Manual Muscle Testing Right Dorsiflexion (L4) 1 Trace Plantarflexion (S1) 2 Poor Left Plantarflexion (S1) 1 Trace PT-OP-Q Treatments Start: 03/08/22 17:00 Freq: Status: Active Protocol: Document 10/05/24 13:53 NBM (Rec: 10/05/24 14:37 [facility] Laptop) Gym Equipment Cable Column (Body Solid) lateral pulldown Details Lat Pulldown Resistance 65# 3x12 Therapeutic Exercises Other Exercises short kneel Other Exercise Name short kneeling /c self thigh support Push-ups Other Exercise Name Push-up in quadruped Reps/Minutes WBOS x30, UE alignment x8 to fatigue quadruped child's pose Other Exercise Name Child's pose on forearms fwd Therapeutic Activity Therapeutic Activity Wheelchair Mobility Comments 1.balancing on shortened w/c tips (returned to position following activity) -finding balance point between neutral and wheelchair tips while sustaining balance w/ minimal a/p movement x3 (min ~ 60, max 115 w/ minimal touchdown on tips). 2.fwd mobility 10 ft up on to 3 mat x10, 1/ missed, 90% successful two posterior LOB reversing off mat w/ modA for balance recovery. supine>prone>quadruped Name SBA: into quadruped<> L SL, heavy pt BUE support Neuro Re-Education Treatment Coordination Activities core Details 1. arms extended 2. elbows flexed Equipment CGA at shoulders B Comments seated trunk extension focus: 1. finding balance arms extended> holding dowel w/ arms extended/flexed 2. Pt holding dowel B elbows straight/flexed w/ aide gently resisting various points into fwd trunk flexion -Eyes closed w/ elbow flexion only PT-OP-T Assessment and Plan Start: 03/08/22 17:00 Freq: Status: Active Protocol: Document 10/05/24 13:53 NBM (Rec: 10/05/24 14:37 [facility] Laptop) Physical Therapy Assessment Goals Four Impairment Bilateral triceps weakness (R 4-, L 3+) Blow Up Operator Goal (LTG) Pt to demonstrate improved triceps strength to at least 4 /5 bilaterally for elbow extension in order to improve transfer ability. LTG Duration 10/21/24 - Improving Three Impairment Pt does not have any motor function throughout bilateral LEs Short Term Goal (STG) Pt to demonstrate 1/5 trace motor contraction in at least one quad in order to begin focus on LE mobility if neural functional return begins. STG Duration Met Blow Up Operator Goal (LTG) Pt to demonstrate right quad strength to at least 2/5, demonstrating movement into ROM in an antigravity position LTG Duration 10/21/24 Two Impairment Pt struggles with lateral transfer/scooting along EOB Blow Up Operator Goal (LTG) Pt to perform lateral scoot transfer using proper technique without any verbal cues 4x in a row. LTG Duration 10/21/24 One Impairment Pt does not have an appropriate home exercise program Short Term Goal (STG) Pt to be independent and compliant with an appropriate HEP STG Duration 10/21/24 Assessment Summary Assessment Treatment focus on wheelchair mobility, core and upper extremity strengthening. Toby enriquez progressively improved balance with minimal anteroposterior movement or touchdown on tips ranging approximately 60- 115 seconds in three attempts. He is 90% successful with one missed attempt of forward mobility 10 ft up on to 3 mat x10, but has two posterior losses of balance when reversing off mat requiring modA for balance recovery. He is challenged with maintaining seated trunk extension against gentle resistance in sagittal plane. Physical Therapy Plan Frequency and Duration Frequency of Treatment 2x/Week Plan of Care Start Date 07/23/24 Plan of Care End Date 10/21/24 Therapeutic Interventions Therapeutic Interventions Aquatic Therapy,Balance Training,Coordination Training ,Gait Training,Home Exercise Program,Manual Therapy, Neuromuscular Re-education, Orthotic/Prosthetic Management ,Patient/Caregiver Education, Self-Care/Home Management, Sensory Integration,Soft Tissue Mobilization, Therapeutic Activities, Therapeutic Exercises, Wheelchair Management Next Visit Focus/Plan Next Note Type Treatment Note Next Visit Plan Next: core progression in hooklying or quadruped. Consider side planks and supine>sidelying bed mobility focus. Continue PT per POC: Continue L log roll, L SL>quadruped, Lateral transfers to elevated surfaces more trunk flexion/ frequent scoots decreased assist, Wheelchair wheelies, curb management, POC: Continue UE and core strengthening, LE PROM and manual stretching. Transfers, mobility, LE ROM, pt will benefit from continued breakdown of transfers to improve efficiency and mechanics, as well as working on more seated balance EOB.
--- NOTE | 2024-10-07 17:05 | PT.OTN ---
Current Diagnoses Paraplegia, unspecified (10/07/24) Other specified personal risk factors, not elsewhere classified (10/07/24) Other specified postprocedural states (10/07/24) Physical Therapy Treatment Note PT-OP-A Visit Information Start: 03/08/22 17:00 Freq: Status: Active Protocol: Document 10/07/24 16:18 DCW (Rec: 10/07/24 17:04 DCW [id number]) Out-Patient Physical Therapy Visit Information Visit Information Visit Type Treatment Note Visit Start Time 16:18 Visit Stop Time 17:00 Visit Number [id number] Number of CHEESE MAKER Visits 0 Evaluation Information Evaluation Date 03/08/22 PT-OP-B Current Condition Start: 03/08/22 17:00 Freq: Status: Active Protocol: Document 03/17/24 11:29 SAK (Rec: 03/17/24 12:23 SAK [id number]) Current Condition History of Current Condition Onset Date 12/16/21 Current Complaints Paraplegia History of Current Condition Pt is a 71 year old male with a very unfortunate medical history. Pt was hiking [employer] on 12/16/21 with a friend, finished up, drive back to his friend's home to drop him off, and noticed his left leg was collapsing. By the time pt drove home, both legs were giving out and numb. Pt was suddenly paralized from the waist down, was taken to the ED, and was flown to [facility] on 12/17/21. The following day, he underwent a laminectomy to relieve pressure from the thoracic epidural hematoma which had developed following his hike, which was pressing on his spinal cord. Following surgery , pt was in recovery for a week and was then transfered to rehab for 20 days, when he was finally discharged home in a wheelchair on 01/19/22. Pt reports his surgeon informed him that it is a possibility that he gets some return of nerve function. Has experienced some changes in his right LE, but has no motor function at this time from ~ T10 down. Minimal sensory return on right side, none on left. Pt has been anxious to get in to therapy and do everything he can to help return to function. Pt's , who attended his evaluation, notes that she has been doing a lot of PROM in his legs at night to keep everything moving. Pt can feel some stretching during PROM in his right leg. Pt has additionally already started occupational therapy, and has been practicing some seated stabilization. Pt transfers with a slide board, but notes it is difficult to do into his car, because he has to transfer upward at an incline. PT-OP-C Subjective Start: 03/08/22 17:00 Freq: Status: Active Protocol: Document 10/07/24 16:18 DCW (Rec: 10/07/24 17:05 DCW [id number]) OP-PT Subjective Patient Comments Patient Comments Pt reports he has been getting into and out of his car much more easily recently. PT-OP-G Mobility & Gait Start: 03/08/22 17:00 Freq: Status: Active Protocol: Document 07/23/24 12:17 DCW (Rec: 07/23/24 12:52 DCW [id number]) OP Mobility Evaluation Transfers Bed to Chair Transfers Transfers using UE, improved with side-side movement, requires minimal verbal cues for LE positioning Car Transfers uses slide board, stabilizes front to back and prevent slide down board Wheelchair Management Type of Wheelchair Manual w/c Assessment Details Unable to perform tilt back to get over curb. Able to clear 2 obstacle 60-70% of the time . PT-OP-H Neuro Start: 03/08/22 17:00 Freq: Status: Active Protocol: Document 07/23/24 12:17 DCW (Rec: 07/23/24 12:52 DCW [id number]) Sensation Evaluation Gross Sensation Gross Sensation Left LE Impaired,Right LE Impaired,Trunk Impaired Sensation Description Paresthesia,Numbness,Tingling, Pins & [place],Burning Dermatome Impairments L1,L2,L3,L4,L5,S1,S2,S3,S4-5 Location Details Right Leg Light Touch Impaired Sharp/Dull Impaired Deep Pressure Intact/Normal Hot/Cold Absent Protective Sensation Absent Proprioception (Position) Impaired Kinesthesia (Movement) Impaired Two-Point Discrimination Impaired Tactile Localization Impaired Stereognosis Impaired Left Leg Light Touch Absent Sharp/Dull Absent Deep Pressure Impaired Hot/Cold Impaired Protective Sensation Absent Proprioception (Position) Absent Kinesthesia (Movement) Impaired Two-Point Discrimination Absent Tactile Localization Absent Stereognosis Absent Comments Summary Comments B protective reflex vs sharp present Deep Tendon Reflex & Clonus Assessment Deep Tendon Reflex Right Achilles Deep Tendon Reflex 2+ Normal Right Patellar Deep Tendon Reflex 2+ Normal Left Achilles Deep Tendon Reflex 2+ Normal Left Patellar Deep Tendon Reflex 1+ Diminished Ankle Clonus Right Clonus Assessment Sustained Left Clonus Assessment Sustained Muscle Tone Tone Assessment Right Lower Extremity Flexor Tone Description Moderate Hypertonicity Extensor Tone Description Moderate Hypertonicity Left Lower Extremity Flexor Tone Description Moderate Hypertonicity Extensor Tone Description Moderate Hypertonicity PT-OP-J Posture/Palpation/Skin Start: 03/08/22 17:00 Freq: Status: Active Protocol: Document 07/23/24 12:17 DCW (Rec: 07/23/24 12:52 DCW [id number]) Posture Evaluation Comments Posture Comments Sitting EOB with good core control and no instability, uses UEs in lap for support. Recovers from directional pushing. Improved ability to reach outside of base of support. PT-OP-M Strength Start: 08/21/22 15:38 Freq: Status: Active Protocol: Document 07/23/24 12:17 DCW (Rec: 07/23/24 12:52 DCW [id number]) Trunk Strength Trunk Manual Muscle Testing Core Stabilization Able to hold himself up in partial lean using abdominal strength for 15 second Shoulder Strength Shoulder Manual Muscle Testing Right Flexion 4+ Good+ Extension 4+ Good+ Abduction (C5) 4+ Good+ External Rotation 4- Good- Internal Rotation 4+ Good+ Left Flexion 4+ Good+ Extension 4+ Good+ Abduction (C5) 4+ Good+ External Rotation 4- Good- Internal Rotation 4+ Good+ Elbow/Forearm Strength Elbow and Forearm Manual Muscle Testing Right Flexion (C6) 4+ Good+ Extension (C7) 4+ Good+ Left Flexion (C6) 4+ Good+ Extension (C7) 4- Good- Hand [employer]/Pinch Strength Hand Dominance Hand Dominance Right Hand Strength Right [address] [employer] (lbs) [address] [employer] [address] (lbs) 85 Hip Strength Hip Manual Muscle Testing Right Flexion (L2) 1 Trace Extension (S1) 2- Poor- Adduction 2- Poor- Left Flexion (L2) 1 Trace Extension (S1) 2- Poor- Adduction 1 Trace Knee Strength Knee Manual Muscle Testing Right Flexion (S2) 2- Poor- Extension (L3) 1 Trace Left Flexion (S2) 2- Poor- Extension (L3) 1 Trace Ankle/Foot Strength Ankle and Foot Manual Muscle Testing Right Dorsiflexion (L4) 1 Trace Plantarflexion (S1) 2 Poor Left Plantarflexion (S1) 1 Trace PT-OP-Q Treatments Start: 03/08/22 17:00 Freq: Status: Active Protocol: Document 10/07/24 16:18 DCW (Rec: 10/07/24 17:04 DCW [id number]) Cardio Equipment Recumbent Stepper (Sci-Fit) Duration (Minutes) 10 Resistance 8 Seat Position Seat 10, Handles 9 Other Nu-Step, 40-50 stm Gym Equipment Cable Column (Body Solid) Bench Press Details Seated bench press - cables under axilla bilaterally, towel on handle Resistance 35# 3x10, 40# x10 Triceps Details Seated Triceps Press Resistance 25# 3x10 cable row Details PT assist to maintain upright posture Resistance 45# Reps/Time 3x10 lateral pulldown Details Lat Pulldown Resistance 65# Reps/Time x16, 2x12 PT-OP-T Assessment and Plan Start: 03/08/22 17:00 Freq: Status: Active Protocol: Document 10/07/24 16:18 DCW (Rec: 10/07/24 17:04 DCW [id number]) Physical Therapy Assessment Impairments Impairments Activity Tolerance,Balance, Coordination,Functional Activities,Functional Mobility ,Gait,Integument,Sensation, Soft Tissue Mobility,Strength, Tone,Transfers Goals Four Impairment Bilateral triceps weakness (R 4-, L 3+) Prison Goal (LTG) Pt to demonstrate improved triceps strength to at least 4 /5 bilaterally for elbow extension in order to improve transfer ability. LTG Duration 10/21/24 - Improving Three Impairment Pt does not have any motor function throughout bilateral LEs Short Term Goal (STG) Pt to demonstrate 1/5 trace motor contraction in at least one quad in order to begin focus on LE mobility if neural functional return begins. STG Duration Met Air Deodorizer Servicer Goal (LTG) Pt to demonstrate right quad strength to at least 2/5, demonstrating movement into ROM in an antigravity position LTG Duration 10/21/24 Two Impairment Pt struggles with lateral transfer/scooting along EOB Prison Goal (LTG) Pt to perform lateral scoot transfer using proper technique without any verbal cues 4x in a row. LTG Duration 10/21/24 One Impairment Pt does not have an appropriate home exercise program Short Term Goal (STG) Pt to be independent and compliant with an appropriate HEP STG Duration 10/21/24 Assessment Summary Assessment Pt has been exhibiting improved transfers, notes easier with bed mobility. Tolerated treatment well today , able to increase resistance on UE strengthening. Continue to work on functional mobility , UE/core strength, and activity tolerance. Physical Therapy Plan Frequency and Duration Frequency of Treatment 2x/Week Plan of Care Start Date 07/23/24 Plan of Care End Date 10/21/24 Therapeutic Interventions Therapeutic Interventions Aquatic Therapy,Balance Training,Coordination Training ,Gait Training,Home Exercise Program,Manual Therapy, Neuromuscular Re-education, Orthotic/Prosthetic Management ,Patient/Caregiver Education, Self-Care/Home Management, Sensory Integration,Soft Tissue Mobilization, Therapeutic Activities, Therapeutic Exercises, Wheelchair Management Next Visit Focus/Plan Next Note Type Treatment Note Next Visit Plan Next: core progression in hooklying or quadruped. Consider side planks and supine>sidelying bed mobility focus. Continue PT per POC: Continue L log roll, L SL>quadruped, Lateral transfers to elevated surfaces more trunk flexion/ frequent scoots decreased assist, Wheelchair wheelies, curb management, POC: Continue UE and core strengthening, LE PROM and manual stretching. Transfers, mobility, LE ROM, pt will benefit from continued breakdown of transfers to improve efficiency and mechanics, as well as working on more seated balance EOB.
--- NOTE | 2024-10-11 17:02 | PT.OTN ---
Current Diagnoses Paraplegia, unspecified (10/11/24) Other specified personal risk factors, not elsewhere classified (10/11/24) Other specified postprocedural states (10/11/24) Physical Therapy Treatment Note PT-OP-A Visit Information Start: 03/08/22 17:00 Freq: Status: Active Protocol: Document 10/11/24 16:21 DCW (Rec: 10/11/24 17:02 DCW [id number]) Out-Patient Physical Therapy Visit Information Visit Information Visit Type Treatment Note Visit Start Time 16:21 Visit Stop Time 17:00 Visit Number [id number] Number of TRAUMA SURGEON Visits 0 Evaluation Information Evaluation Date 03/08/22 PT-OP-B Current Condition Start: 03/08/22 17:00 Freq: Status: Active Protocol: Document 03/17/24 11:29 SAK (Rec: 03/17/24 12:23 SAK [id number]) Current Condition History of Current Condition Onset Date 12/16/21 Current Complaints Paraplegia History of Current Condition Pt is a 71 year old male with a very unfortunate medical history. Pt was hiking [place] on 12/16/21 with a friend, finished up, drive back to his friend's home to drop him off, and noticed his left leg was collapsing. By the time pt drove home, both legs were giving out and numb. Pt was suddenly paralized from the waist down, was taken to the ED, and was flown to [facility] on 12/17/21. The following day, he underwent a laminectomy to relieve pressure from the thoracic epidural hematoma which had developed following his hike, which was pressing on his spinal cord. Following surgery , pt was in recovery for a week and was then transfered to rehab for 20 days, when he was finally discharged home in a wheelchair on 01/19/22. Pt reports his surgeon informed him that it is a possibility that he gets some return of nerve function. Has experienced some changes in his right LE, but has no motor function at this time from ~ T10 down. Minimal sensory return on right side, none on left. Pt has been anxious to get in to therapy and do everything he can to help return to function. Pt's , who attended his evaluation, notes that she has been doing a lot of PROM in his legs at night to keep everything moving. Pt can feel some stretching during PROM in his right leg. Pt has additionally already started occupational therapy, and has been practicing some seated stabilization. Pt transfers with a slide board, but notes it is difficult to do into his car, because he has to transfer upward at an incline. PT-OP-C Subjective Start: 03/08/22 17:00 Freq: Status: Active Protocol: Document 10/11/24 16:21 DCW (Rec: 10/11/24 17:02 DCW [id number]) OP-PT Subjective Patient Comments Patient Comments Pt feeling good today, no new complaints. PT-OP-G Mobility & Gait Start: 03/08/22 17:00 Freq: Status: Active Protocol: Document 07/23/24 12:17 DCW (Rec: 07/23/24 12:52 DCW [id number]) OP Mobility Evaluation Transfers Bed to Chair Transfers Transfers using UE, improved with side-side movement, requires minimal verbal cues for LE positioning Car Transfers uses slide board, stabilizes front to back and prevent slide down board Wheelchair Management Type of Wheelchair Manual w/c Assessment Details Unable to perform tilt back to get over curb. Able to clear 2 obstacle 60-70% of the time . PT-OP-H Neuro Start: 03/08/22 17:00 Freq: Status: Active Protocol: Document 07/23/24 12:17 DCW (Rec: 07/23/24 12:52 DCW [id number]) Sensation Evaluation Gross Sensation Gross Sensation Left LE Impaired,Right LE Impaired,Trunk Impaired Sensation Description Paresthesia,Numbness,Tingling, Pins & [place],Burning Dermatome Impairments L1,L2,L3,L4,L5,S1,S2,S3,S4-5 Location Details Right Leg Light Touch Impaired Sharp/Dull Impaired Deep Pressure Intact/Normal Hot/Cold Absent Protective Sensation Absent Proprioception (Position) Impaired Kinesthesia (Movement) Impaired Two-Point Discrimination Impaired Tactile Localization Impaired Stereognosis Impaired Left Leg Light Touch Absent Sharp/Dull Absent Deep Pressure Impaired Hot/Cold Impaired Protective Sensation Absent Proprioception (Position) Absent Kinesthesia (Movement) Impaired Two-Point Discrimination Absent Tactile Localization Absent Stereognosis Absent Comments Summary Comments B protective reflex vs sharp present Deep Tendon Reflex & Clonus Assessment Deep Tendon Reflex Right Achilles Deep Tendon Reflex 2+ Normal Right Patellar Deep Tendon Reflex 2+ Normal Left Achilles Deep Tendon Reflex 2+ Normal Left Patellar Deep Tendon Reflex 1+ Diminished Ankle Clonus Right Clonus Assessment Sustained Left Clonus Assessment Sustained Muscle Tone Tone Assessment Right Lower Extremity Flexor Tone Description Moderate Hypertonicity Extensor Tone Description Moderate Hypertonicity Left Lower Extremity Flexor Tone Description Moderate Hypertonicity Extensor Tone Description Moderate Hypertonicity PT-OP-J Posture/Palpation/Skin Start: 03/08/22 17:00 Freq: Status: Active Protocol: Document 07/23/24 12:17 DCW (Rec: 07/23/24 12:52 DCW [id number]) Posture Evaluation Comments Posture Comments Sitting EOB with good core control and no instability, uses UEs in lap for support. Recovers from directional pushing. Improved ability to reach outside of base of support. PT-OP-M Strength Start: 08/21/22 15:38 Freq: Status: Active Protocol: Document 07/23/24 12:17 DCW (Rec: 07/23/24 12:52 DCW [id number]) Trunk Strength Trunk Manual Muscle Testing Core Stabilization Able to hold himself up in partial lean using abdominal strength for 15 second Shoulder Strength Shoulder Manual Muscle Testing Right Flexion 4+ Good+ Extension 4+ Good+ Abduction (C5) 4+ Good+ External Rotation 4- Good- Internal Rotation 4+ Good+ Left Flexion 4+ Good+ Extension 4+ Good+ Abduction (C5) 4+ Good+ External Rotation 4- Good- Internal Rotation 4+ Good+ Elbow/Forearm Strength Elbow and Forearm Manual Muscle Testing Right Flexion (C6) 4+ Good+ Extension (C7) 4+ Good+ Left Flexion (C6) 4+ Good+ Extension (C7) 4- Good- Hand Cyber Intel Planner/Pinch Strength Hand Dominance Hand Dominance Right Hand Strength Right Cyber Intel Planner (lbs) 90 Left Cyber Intel Planner (lbs) 85 Hip Strength Hip Manual Muscle Testing Right Flexion (L2) 1 Trace Extension (S1) 2- Poor- Adduction 2- Poor- Left Flexion (L2) 1 Trace Extension (S1) 2- Poor- Adduction 1 Trace Knee Strength Knee Manual Muscle Testing Right Flexion (S2) 2- Poor- Extension (L3) 1 Trace Left Flexion (S2) 2- Poor- Extension (L3) 1 Trace Ankle/Foot Strength Ankle and Foot Manual Muscle Testing Right Dorsiflexion (L4) 1 Trace Plantarflexion (S1) 2 Poor Left Plantarflexion (S1) 1 Trace PT-OP-Q Treatments Start: 03/08/22 17:00 Freq: Status: Active Protocol: Document 10/11/24 16:21 DCW (Rec: 10/11/24 17:02 DCW [id number]) Cardio Equipment Recumbent Stepper (Sci-Fit) Duration (Minutes) 10 Resistance 8 Seat Position Seat 10, Handles 9 Other Nu-Step, 40-50 stm Gym Equipment Cable Column (Body Solid) lateral pulldown Details Lat Pulldown Resistance 65# x12, 70# 2x10 Shuttle Recovery Bilateral Squats Details with BUE assist on thighs Resistance 25# assisted ascending, resisted descending Shuttle Recovery Platform Stable Therapeutic Exercises Sitting Exercises Bicep curls to overhead press Sitting Exercise Name Overhead PRess Side bilateral Resistance 5# dumbbells Comments VCs to decrease speed PT-OP-T Assessment and Plan Start: 03/08/22 17:00 Freq: Status: Active Protocol: Document 10/11/24 16:21 DCW (Rec: 10/11/24 17:02 DCW [id number]) Physical Therapy Assessment Impairments Impairments Activity Tolerance,Balance, Coordination,Functional Activities,Functional Mobility ,Gait,Integument,Sensation, Soft Tissue Mobility,Strength, Tone,Transfers Goals Four Impairment Bilateral triceps weakness (R 4-, L 3+) Technology And Engineering Teacher Goal (LTG) Pt to demonstrate improved triceps strength to at least 4 /5 bilaterally for elbow extension in order to improve transfer ability. LTG Duration 10/21/24 - Improving Three Impairment Pt does not have any motor function throughout bilateral LEs Short Term Goal (STG) Pt to demonstrate 1/5 trace motor contraction in at least one quad in order to begin focus on LE mobility if neural functional return begins. STG Duration Met Fpc Goal (LTG) Pt to demonstrate right quad strength to at least 2/5, demonstrating movement into ROM in an antigravity position LTG Duration 10/21/24 Two Impairment Pt struggles with lateral transfer/scooting along EOB Fpc Goal (LTG) Pt to perform lateral scoot transfer using proper technique without any verbal cues 4x in a row. LTG Duration 10/21/24 One Impairment Pt does not have an appropriate home exercise program Short Term Goal (STG) Pt to be independent and compliant with an appropriate HEP STG Duration 10/21/24 Assessment Summary Assessment Pt struggled a bit more today on the leg press, unable to arrest his descent as well as he has in the past. Otherwise did well, continues to progress well with UE strengthening, transfers improving. Physical Therapy Plan Frequency and Duration Frequency of Treatment 2x/Week Plan of Care Start Date 07/23/24 Plan of Care End Date 10/21/24 Therapeutic Interventions Therapeutic Interventions Aquatic Therapy,Balance Training,Coordination Training ,Gait Training,Home Exercise Program,Manual Therapy, Neuromuscular Re-education, Orthotic/Prosthetic Management ,Patient/Caregiver Education, Self-Care/Home Management, Sensory Integration,Soft Tissue Mobilization, Therapeutic Activities, Therapeutic Exercises, Wheelchair Management Next Visit Focus/Plan Next Note Type Treatment Note Next Visit Plan Next: core progression in hooklying or quadruped. Consider side planks and supine>sidelying bed mobility focus. Continue PT per POC: Continue L log roll, L SL>quadruped, Lateral transfers to elevated surfaces more trunk flexion/ frequent scoots decreased assist, Wheelchair wheelies, curb management, POC: Continue UE and core strengthening, LE PROM and manual stretching. Transfers, mobility, LE ROM, pt will benefit from continued breakdown of transfers to improve efficiency and mechanics, as well as working on more seated balance EOB.
--- NOTE | 2024-10-15 16:17 | PT.OTN ---
Current Diagnoses Paraplegia, unspecified (10/15/24) Other specified personal risk factors, not elsewhere classified (10/15/24) Other specified postprocedural states (10/15/24) Physical Therapy Treatment Note PT-OP-A Visit Information Start: 03/08/22 17:00 Freq: Status: Active Protocol: Document 10/15/24 14:45 NBM (Rec: 10/15/24 16:16 NBM Laptop) Out-Patient Physical Therapy Visit Information Visit Information Visit Type Treatment Note Visit Start Time 14:37 Visit Stop Time 15:17 Visit Number 236 Number of FURNITURE SALESPERSON Visits 1 Evaluation Information Evaluation Date 03/08/22 PT-OP-B Current Condition Start: 03/08/22 17:00 Freq: Status: Active Protocol: Document 03/17/24 11:29 SAK (Rec: 03/17/24 12:23 SAK [id number]) Current Condition History of Current Condition Onset Date 12/16/21 Current Complaints Paraplegia History of Current Pt is a 71 year old male with a very unfortunate Condition medical history. Pt was hiking [place] on 12/16/21 with a friend, finished up, drive back to his friend's home to drop him off, and noticed his left leg was collapsing. By the time pt drove home, both legs were giving out and numb. Pt was suddenly paralized from the waist down, was taken to the ED, and was flown to [facility] on 12/17/21. The following day, he underwent a laminectomy to relieve pressure from the thoracic epidural hematoma which had developed following his hike, which was pressing on his spinal cord. Following surgery, pt was in recovery for a week and was then transfered to rehab for 20 days, when he was finally discharged home in a wheelchair on 01/19/22. Pt reports his surgeon informed him that it is a possibility that he gets some return of nerve function. Has experienced some changes in his right LE, but has no motor function at this time from ~T10 down. Minimal sensory return on right side, none on left. Pt has been anxious to get in to therapy and do everything he can to help return to function. Pt's , who attended his evaluation, notes that she has been doing a lot of PROM in his legs at night to keep everything moving. Pt can feel some stretching during PROM in his right leg. Pt has additionally already started occupational therapy, and has been practicing some seated stabilization. Pt transfers with a slide board, but notes it is difficult to do into his car, because he has to transfer upward at an incline. PT-OP-C Subjective Start: 03/08/22 17:00 Freq: Status: Active Protocol: Document 10/15/24 14:45 NBM (Rec: 10/15/24 16:16 NBM Laptop) OP-PT Subjective Patient Comments Patient Comments Pt reports no new changes. PT-OP-G Mobility & Gait Start: 03/08/22 17:00 Freq: Status: Active Protocol: Document 07/23/24 12:17 DCW (Rec: 07/23/24 12:52 DCW [id number]) OP Mobility Evaluation Transfers Bed to Chair Transfers using UE, improved with side-side movement, Transfers requires minimal verbal cues for LE positioning Car Transfers uses slide board, stabilizes front to back and prevent slide down board Wheelchair Management Type of Wheelchair Manual w/c Assessment Details Unable to perform tilt back to get over curb. Able to clear 2 obstacle 60-70% of the time. PT-OP-H Neuro Start: 03/08/22 17:00 Freq: Status: Active Protocol: Document 07/23/24 12:17 DCW (Rec: 07/23/24 12:52 DCW [id number]) Sensation Evaluation Gross Sensation Gross Sensation Left LE Impaired,Right LE Impaired,Trunk Impaired Sensation Paresthesia,Numbness,Tingling,Pins & [place],Burning Description Dermatome L1,L2,L3,L4,L5,S1,S2,S3,S4-5 Impairments Location Details Right Leg Light Touch Impaired Sharp/Dull Impaired Deep Pressure Intact/Normal Hot/Cold Absent Protective Sensation Absent Proprioception ( Impaired Position) Kinesthesia ( Impaired Movement) Two-Point Impaired Discrimination Tactile Localization Impaired Stereognosis Impaired Left Leg Light Touch Absent Sharp/Dull Absent Deep Pressure Impaired Hot/Cold Impaired Protective Sensation Absent Proprioception ( Absent Position) Kinesthesia ( Impaired Movement) Two-Point Absent Discrimination Tactile Localization Absent Stereognosis Absent Comments Summary Comments B protective reflex vs sharp present Deep Tendon Reflex & Clonus Assessment Deep Tendon Reflex Right Achilles Deep Tendon Reflex 2+ Normal Right Patellar Deep Tendon Reflex 2+ Normal Left Achilles Deep Tendon Reflex 2+ Normal Left Patellar Deep Tendon Reflex 1+ Diminished Ankle Clonus Right Clonus Assessment Sustained Left Clonus Assessment Sustained Muscle Tone Tone Assessment Right Lower Extremity Flexor Tone Moderate Hypertonicity Description Extensor Tone Moderate Hypertonicity Description Left Lower Extremity Flexor Tone Moderate Hypertonicity Description Extensor Tone Moderate Hypertonicity Description PT-OP-J Posture/Palpation/Skin Start: 03/08/22 17:00 Freq: Status: Active Protocol: Document 07/23/24 12:17 DCW (Rec: 07/23/24 12:52 DCW [id number]) Posture Evaluation Comments Posture Comments Sitting EOB with good core control and no instability, uses UEs in lap for support. Recovers from directional pushing. Improved ability to reach outside of base of support. PT-OP-M Strength Start: 08/21/22 15:38 Freq: Status: Active Protocol: Document 07/23/24 12:17 DCW (Rec: 07/23/24 12:52 DCW [id number]) Trunk Strength Trunk Manual Muscle Testing Core Stabilization Able to hold himself up in partial lean using abdominal strength for 15 second Shoulder Strength Shoulder Manual Muscle Testing Right Flexion 4+ Good+ Extension 4+ Good+ Abduction (C5) 4+ Good+ External Rotation 4- Good- Internal Rotation 4+ Good+ Left Flexion 4+ Good+ Extension 4+ Good+ Abduction (C5) 4+ Good+ External Rotation 4- Good- Internal Rotation 4+ Good+ Elbow/Forearm Strength Elbow and Forearm Manual Muscle Testing Right Flexion (C6) 4+ Good+ Extension (C7) 4+ Good+ Left Flexion (C6) 4+ Good+ Extension (C7) 4- Good- Hand Iron Assorter/Pinch Strength Hand Dominance Hand Dominance Right Hand Strength Right Iron Assorter (lbs) 90 Left Iron Assorter (lbs) 85 Hip Strength Hip Manual Muscle Testing Right Flexion (L2) 1 Trace Extension (S1) 2- Poor- Adduction 2- Poor- Left Flexion (L2) 1 Trace Extension (S1) 2- Poor- Adduction 1 Trace Knee Strength Knee Manual Muscle Testing Right Flexion (S2) 2- Poor- Extension (L3) 1 Trace Left Flexion (S2) 2- Poor- Extension (L3) 1 Trace Ankle/Foot Strength Ankle and Foot Manual Muscle Testing Right Dorsiflexion (L4) 1 Trace Plantarflexion (S1) 2 Poor Left Plantarflexion (S1) 1 Trace PT-OP-Q Treatments Start: 03/08/22 17:00 Freq: Status: Active Protocol: Document 10/15/24 14:45 NBM (Rec: 10/15/24 16:16 NBM Laptop) Gym Equipment Cable Column (Body Solid) Bench Press Details Seated bench press - cables under axilla bilaterally, towel on handle Resistance 35# 3x10 Reps/Time Height: 5 holes seen from bottom Triceps Details Seated Triceps Press Resistance 25#> 30#x10, 35#x10 pronated building maintenance supervisor, x10 neutral<> pronated building maintenance supervisor Reps/Time Height: 12 holes seen from bottom lateral pulldown Details Lat Pulldown Resistance 65# x12, 70# x10 Therapeutic Activity Therapeutic Activity Wheelchair Mobility Comments 1.balancing on shortened w/c tips (returned to position following activity) -finding balance point between neutral and wheelchair tips while sustaining balance w/ minimal a/p movement - not today 2.fwd mobility 10 ft up on to 3 mat x10, 4/10 missed, 60% successful -w/c tips returned to original position following activity PT-OP-T Assessment and Plan Start: 03/08/22 17:00 Freq: Status: Active Protocol: Document 10/15/24 14:45 NBM (Rec: 10/15/24 16:16 NBM Laptop) Physical Therapy Assessment Goals Four Impairment Bilateral triceps weakness (R 4-, L 3+) Psychiatric Rn Goal (LTG) Pt to demonstrate improved triceps strength to at least 4/5 bilaterally for elbow extension in order to improve transfer ability. LTG Duration 10/21/24 - Improving Three Impairment Pt does not have any motor function throughout bilateral LEs Short Term Goal (STG Pt to demonstrate 1/5 trace motor contraction in at ) least one quad in order to begin focus on LE mobility if neural functional return begins. STG Duration Met Psychiatric Rn Goal (LTG) Pt to demonstrate right quad strength to at least 2/5, demonstrating movement into ROM in an antigravity position LTG Duration 10/21/24 Two Impairment Pt struggles with lateral transfer/scooting along EOB Half-Way Goal (LTG) Pt to perform lateral scoot transfer using proper technique without any verbal cues 4x in a row. LTG Duration 10/21/24 One Impairment Pt does not have an appropriate home exercise program Short Term Goal (STG Pt to be independent and compliant with an appropriate ) HEP STG Duration 10/21/24 Assessment Summary Assessment Treatment focus on UE/core strengthening followed by wheelchair mobility. Toby performs increased resistance with triceps press and all UE exercises to fatigue. He is more challenged today with forward mobility 10 ft up on to 3 mat x10, 4/10 missed, 60% successful, possibly secondary to upper extremity muscle fatigue, but he does improve form with repetition. Physical Therapy Plan Frequency and Duration Frequency of 2x/Week Treatment Plan of Care Start 07/23/24 Date Plan of Care End 10/21/24 Date Therapeutic Interventions Therapeutic Aquatic Therapy,Balance Training,Coordination Training, Interventions Gait Training,Home Exercise Program,Manual Therapy, Neuromuscular Re-education,Orthotic/Prosthetic Management,Patient/Caregiver Education,Self-Care/Home Management,Sensory Integration,Soft Tissue Mobilization ,Therapeutic Activities,Therapeutic Exercises, Wheelchair Management Next Visit Focus/Plan Next Note Type Treatment Note Next Visit Plan Next: core progression in hooklying or quadruped. Consider side planks and supine>sidelying bed mobility focus. Continue PT per POC: Continue L log roll, L SL> quadruped, Lateral transfers to elevated surfaces more trunk flexion/frequent scoots decreased assist, Wheelchair wheelies, curb management, POC: Continue UE and core strengthening, LE PROM and manual stretching. Transfers, mobility, LE ROM, pt will benefit from continued breakdown of transfers to improve efficiency and mechanics, as well as working on more seated balance EOB.
--- NOTE | 2024-10-20 16:06 | PT.OTN ---
Current Diagnoses Paraplegia, unspecified (10/20/24) Other specified personal risk factors, not elsewhere classified (10/20/24) Other specified postprocedural states (10/20/24) Physical Therapy Treatment Note PT-OP-A Visit Information Start: 03/08/22 17:00 Freq: Status: Active Protocol: Document 10/20/24 15:20 DCW (Rec: 10/20/24 16:06 DCW [id number]) Out-Patient Physical Therapy Visit Information Visit Information Visit Type Progress Note Visit Start Time 15:20 Visit Stop Time 16:00 Visit Number [id number] Number of PRACTICE ARCHITECT Visits 0 Evaluation Information Evaluation Date 03/08/22 PT-OP-B Current Condition Start: 03/08/22 17:00 Freq: Status: Active Protocol: Document 03/17/24 11:29 SAK (Rec: 03/17/24 12:23 SAK [id number]) Current Condition History of Current Condition Onset Date 12/16/21 Current Complaints Paraplegia History of Current Pt is a 71 year old male with a very unfortunate Condition medical history. Pt was hiking [address] on 12/16/21 with a friend, finished up, drive back to his friend's home to drop him off, and noticed his left leg was collapsing. By the time pt drove home, both legs were giving out and numb. Pt was suddenly paralized from the waist down, was taken to the ED, and was flown to [facility] on 12/17/21. The following day, he underwent a laminectomy to relieve pressure from the thoracic epidural hematoma which had developed following his hike, which was pressing on his spinal cord. Following surgery, pt was in recovery for a week and was then transfered to rehab for 20 days, when he was finally discharged home in a wheelchair on 01/19/22. Pt reports his surgeon informed him that it is a possibility that he gets some return of nerve function. Has experienced some changes in his right LE, but has no motor function at this time from ~T10 down. Minimal sensory return on right side, none on left. Pt has been anxious to get in to therapy and do everything he can to help return to function. Pt's , who attended his evaluation, notes that she has been doing a lot of PROM in his legs at night to keep everything moving. Pt can feel some stretching during PROM in his right leg. Pt has additionally already started occupational therapy, and has been practicing some seated stabilization. Pt transfers with a slide board, but notes it is difficult to do into his car, because he has to transfer upward at an incline. PT-OP-C Subjective Start: 03/08/22 17:00 Freq: Status: Active Protocol: Document 10/20/24 15:20 DCW (Rec: 10/20/24 16:06 DCW [id number]) OP-PT Subjective Patient Comments Patient Comments Pt noting transfers continue to feel easier PT-OP-G Mobility & Gait Start: 03/08/22 17:00 Freq: Status: Active Protocol: Document 10/20/24 15:20 DCW (Rec: 10/20/24 16:01 DCW [id number]) OP Mobility Evaluation Transfers Bed to Chair Transfers using UE, improved with side-side movement, Transfers requires minimal verbal cues for LE positioning Car Transfers uses slide board, stabilizes front to back and prevent slide down board Functional Movements Other Functional Pt performs sit->supine->prone->quadruped with SBA 95% Movements of the time, requires Min Ax1 05%, typically with positioning of knees or feet, or getting up into quad from prone Wheelchair Management Type of Wheelchair Manual w/c Assessment Details Unable to perform tilt back to get over curb. Able to clear 2 obstacle 90% of the time. PT-OP-H Neuro Start: 03/08/22 17:00 Freq: Status: Active Protocol: Document 10/20/24 15:20 DCW (Rec: 10/20/24 16:01 DCW [id number]) Sensation Evaluation Gross Sensation Gross Sensation Left LE Impaired,Right LE Impaired,Trunk Impaired Sensation Paresthesia,Numbness,Tingling,Pins & [place],Burning Description Dermatome L1,L2,L3,L4,L5,S1,S2,S3,S4-5 Impairments Location Details Right Leg Light Touch Impaired Sharp/Dull Impaired Deep Pressure Intact/Normal Hot/Cold Absent Protective Sensation Absent Proprioception ( Impaired Position) Kinesthesia ( Impaired Movement) Two-Point Impaired Discrimination Tactile Localization Impaired Stereognosis Impaired Left Leg Light Touch Absent Sharp/Dull Absent Deep Pressure Impaired Hot/Cold Impaired Protective Sensation Absent Proprioception ( Absent Position) Kinesthesia ( Impaired Movement) Two-Point Absent Discrimination Tactile Localization Absent Stereognosis Absent Comments Summary Comments B protective reflex vs sharp present Deep Tendon Reflex & Clonus Assessment Deep Tendon Reflex Right Achilles Deep Tendon Reflex 2+ Normal Right Patellar Deep Tendon Reflex 2+ Normal Left Achilles Deep Tendon Reflex 2+ Normal Left Patellar Deep Tendon Reflex 1+ Diminished Ankle Clonus Right Clonus Assessment Sustained Left Clonus Assessment Sustained Muscle Tone Tone Assessment Right Lower Extremity Flexor Tone Moderate Hypertonicity Description Extensor Tone Moderate Hypertonicity Description Left Lower Extremity Flexor Tone Moderate Hypertonicity Description Extensor Tone Moderate Hypertonicity Description PT-OP-J Posture/Palpation/Skin Start: 03/08/22 17:00 Freq: Status: Active Protocol: Document 10/20/24 15:20 DCW (Rec: 10/20/24 16:01 [facility] [id number]) Posture Evaluation Comments Posture Comments Sitting EOB with good core control and no instability, uses UEs in lap for support. Recovers from directional pushing. Improved ability to reach outside of base of support. PT-OP-M Strength Start: 08/21/22 15:38 Freq: Status: Active Protocol: Document 10/20/24 15:20 DCW (Rec: 10/20/24 16:01 [facility] [id number]) Shoulder Strength Shoulder Manual Muscle Testing Right Flexion 4+ Good+ Extension 4+ Good+ Abduction (C5) 4+ Good+ External Rotation 4 Good Internal Rotation 4+ Good+ Left Flexion 4+ Good+ Extension 4+ Good+ Abduction (C5) 4+ Good+ External Rotation 4 Good Internal Rotation 4+ Good+ Elbow/Forearm Strength Elbow and Forearm Manual Muscle Testing Right Flexion (C6) 4+ Good+ Extension (C7) 4+ Good+ Left Flexion (C6) 4+ Good+ Extension (C7) 4 Good Hip Strength Hip Manual Muscle Testing Right Flexion (L2) 1 Trace Extension (S1) 2- Poor- Adduction 2- Poor- Left Flexion (L2) 1 Trace Extension (S1) 2- Poor- Adduction 1 Trace Knee Strength Knee Manual Muscle Testing Right Flexion (S2) 2- Poor- Extension (L3) 1 Trace Left Flexion (S2) 2- Poor- Extension (L3) 1 Trace Ankle/Foot Strength Ankle and Foot Manual Muscle Testing Right Dorsiflexion (L4) 1 Trace Plantarflexion (S1) 2 Poor Left Plantarflexion (S1) 1 Trace PT-OP-Q Treatments Start: 03/08/22 17:00 Freq: Status: Active Protocol: Document 10/15/24 14:45 NBM (Rec: 10/15/24 16:16 NBM Laptop) Gym Equipment Cable Column (Body Solid) Bench Press Details Seated bench press - cables under axilla bilaterally, towel on handle Resistance 35# 3x10 Reps/Time Height: 5 holes seen from bottom Triceps Details Seated Triceps Press Resistance 25#> 30#x10, 35#x10 pronated multifocal button generator, x10 neutral<> pronated multifocal button generator Reps/Time Height: 12 holes seen from bottom lateral pulldown Details Lat Pulldown Resistance 65# x12, 70# x10 Therapeutic Activity Therapeutic Activity Wheelchair Mobility Comments 1.balancing on shortened w/c tips (returned to position following activity) -finding balance point between neutral and wheelchair tips while sustaining balance w/ minimal a/p movement - not today 2.fwd mobility 10 ft up on to 3 mat x10, 4/10 missed, 60% successful -w/c tips returned to original position following activity PT-OP-T Assessment and Plan Start: 03/08/22 17:00 Freq: Status: Active Protocol: Document 10/20/24 15:20 DCW (Rec: 10/20/24 16:06 DCW [id number]) Physical Therapy Assessment Impairments Impairments Activity Tolerance,Balance,Coordination,Functional Activities,Functional Mobility,Gait,Integument, Sensation,Soft Tissue Mobility,Strength,Tone,Transfers Goals Four Impairment Bilateral triceps weakness (R 4-, L 3+) Behavioral Health Consultant Goal (LTG) Pt to demonstrate improved triceps strength to at least 4/5 bilaterally for elbow extension in order to improve transfer ability. LTG Duration 01/18/25 - Improving Three Impairment Pt does not have any motor function throughout bilateral LEs Short Term Goal (STG Pt to demonstrate 1/5 trace motor contraction in at ) least one quad in order to begin focus on LE mobility if neural functional return begins. STG Duration Met Behavioral Health Consultant Goal (LTG) Pt to demonstrate right quad strength to at least 2/5, demonstrating movement into ROM in an antigravity position LTG Duration 01/18/25 Two Impairment Pt struggles with lateral transfer/scooting along EOB Fci Goal (LTG) Pt to perform lateral scoot transfer using proper technique without any verbal cues 4x in a row. LTG Duration 01/18/25 One Impairment Pt does not have an appropriate home exercise program Short Term Goal (STG Pt to be independent and compliant with an appropriate ) HEP STG Duration 12/18/24 Assessment Summary Assessment Pt appears to be displaying improvement with functional mobility and transfers with recent focus on upper extremity strengthening. Sensation and proprioception doing significantly better in right LE vs left LE. Will likely do well to progress core and UE strengthening. Physical Therapy Plan Frequency and Duration Frequency of 2x/Week Treatment Plan of Care Start 10/20/24 Date Plan of Care End 01/18/25 Date Therapeutic Interventions Therapeutic Aquatic Therapy,Balance Training,Coordination Training, Interventions Gait Training,Home Exercise Program,Manual Therapy, Neuromuscular Re-education,Orthotic/Prosthetic Management,Patient/Caregiver Education,Self-Care/Home Management,Sensory Integration,Soft Tissue Mobilization ,Therapeutic Activities,Therapeutic Exercises, Wheelchair Management Next Visit Focus/Plan Next Note Type Treatment Note Next Visit Plan Next: core progression in hooklying or quadruped. Consider side planks and supine>sidelying bed mobility focus. Continue PT per POC: Continue L log roll, L SL> quadruped, Lateral transfers to elevated surfaces more trunk flexion/frequent scoots decreased assist, Wheelchair wheelies, curb management, POC: Continue UE and core strengthening, LE PROM and manual stretching. Transfers, mobility, LE ROM, pt will benefit from continued breakdown of transfers to improve efficiency and mechanics, as well as working on more seated balance EOB.
--- NOTE | 2024-10-20 16:07 | PT.OPPOC ---
Physical, Occupational & Speech Therapy At [facility] Current Diagnoses Paraplegia, unspecified (10/20/24) Other specified personal risk factors, not elsewhere classified (10/20/24) Other specified postprocedural states (10/20/24) Visit Care Team Role Provider Type Octavio Yates MD Family Provider Physician Primary Care Provider Specialty: Family Practice Address: [address] [place] [address], [address], [address] Email: [email or web address] Charleen Arias PA-C Attending Provider Advanced Fishing Vessel Operator Referring Provider Specialty: Medical Address: [address] [place] [address], [place] [address], [place], [address] Email: [email or web address] Plan Of Care PT-OP-B Current Condition Start: 03/08/22 17:00 Freq: Status: Active Protocol: Document 03/17/24 11:29 [facility] (Rec: 03/17/24 12:23 [facility] [id number]) Current Condition History of Current Condition Onset Date 12/16/21 Current Complaints Paraplegia History of Current Pt is a 71 year old male with a very unfortunate Condition medical history. Pt was hiking [place] on 12/16/21 with a friend, finished up, drive back to his friend's home to drop him off, and noticed his left leg was collapsing. By the time pt drove home, both legs were giving out and numb. Pt was suddenly paralized from the waist down, was taken to the ED, and was flown to [facility] on 12/17/21. The following day, he underwent a laminectomy to relieve pressure from the thoracic epidural hematoma which had developed following his hike, which was pressing on his spinal cord. Following surgery, pt was in recovery for a week and was then transfered to rehab for 20 days, when he was finally discharged home in a wheelchair on 01/19/22. Pt reports his surgeon informed him that it is a possibility that he gets some return of nerve function. Has experienced some changes in his right LE, but has no motor function at this time from ~T10 down. Minimal sensory return on right side, none on left. Pt has been anxious to get in to therapy and do everything he can to help return to function. Pt's , who attended his evaluation, notes that she has been doing a lot of PROM in his legs at night to keep everything moving. Pt can feel some stretching during PROM in his right leg. Pt has additionally already started occupational therapy, and has been practicing some seated stabilization. Pt transfers with a slide board, but notes it is difficult to do into his car, because he has to transfer upward at an incline. PT-OP-T Assessment and Plan Start: 03/08/22 17:00 Freq: Status: Active Protocol: Document 10/20/24 15:20 DCW (Rec: 10/20/24 16:06 DCW [id number]) Physical Therapy Assessment Impairments Impairments Activity Tolerance,Balance,Coordination,Functional Activities,Functional Mobility,Gait,Integument, Sensation,Soft Tissue Mobility,Strength,Tone,Transfers Goals Four Impairment Bilateral triceps weakness (R 4-, L 3+) Metabolic Specialist Goal (LTG) Pt to demonstrate improved triceps strength to at least 4/5 bilaterally for elbow extension in order to improve transfer ability. LTG Duration 01/18/25 - Improving Three Impairment Pt does not have any motor function throughout bilateral LEs Short Term Goal (STG Pt to demonstrate 1/5 trace motor contraction in at ) least one quad in order to begin focus on LE mobility if neural functional return begins. STG Duration Met Assisted Goal (LTG) Pt to demonstrate right quad strength to at least 2/5, demonstrating movement into ROM in an antigravity position LTG Duration 01/18/25 Two Impairment Pt struggles with lateral transfer/scooting along EOB Metabolic Specialist Goal (LTG) Pt to perform lateral scoot transfer using proper technique without any verbal cues 4x in a row. LTG Duration 01/18/25 One Impairment Pt does not have an appropriate home exercise program Short Term Goal (STG Pt to be independent and compliant with an appropriate ) HEP STG Duration 12/18/24 Assessment Summary Assessment Pt appears to be displaying improvement with functional mobility and transfers with recent focus on upper extremity strengthening. Sensation and proprioception doing significantly better in right LE vs left LE. Will likely do well to progress core and UE strengthening. Physical Therapy Plan Frequency and Duration Frequency of 2x/Week Treatment Plan of Care Start 10/20/24 Date Plan of Care End 01/18/25 Date Therapeutic Interventions Therapeutic Aquatic Therapy,Balance Training,Coordination Training, Interventions Gait Training,Home Exercise Program,Manual Therapy, Neuromuscular Re-education,Orthotic/Prosthetic Management,Patient/Caregiver Education,Self-Care/Home Management,Sensory Integration,Soft Tissue Mobilization ,Therapeutic Activities,Therapeutic Exercises, Wheelchair Management Next Visit Focus/Plan Next Note Type Treatment Note Next Visit Plan Next: core progression in hooklying or quadruped. Consider side planks and supine>sidelying bed mobility focus. Continue PT per POC: Continue L log roll, L SL> quadruped, Lateral transfers to elevated surfaces more trunk flexion/frequent scoots decreased assist, Wheelchair wheelies, curb management, POC: Continue UE and core strengthening, LE PROM and manual stretching. Transfers, mobility, LE ROM, pt will benefit from continued breakdown of transfers to improve efficiency and mechanics, as well as working on more seated balance EOB. Plan of Care Dates Plan of Care Start Date 10/20/24 Plan of Care End Date 01/18/25 Electronically Signed by: Jean Ruggiero, PT 10/20/24 4539 If you are in agreement with this Plan of Care, please return a signed and dated copy. I have reviewed this Plan of Care and certify that the skilled therapy services above are required to meet the patient?s needs. Physician Signature Date Printed Name and Credentials Clinical Instructor Signature Printed Name and Credentials
--- NOTE | 2024-10-22 16:14 | PT.OTN ---
Current Diagnoses Paraplegia, unspecified (10/22/24) Other specified personal risk factors, not elsewhere classified (10/22/24) Other specified postprocedural states (10/22/24) Physical Therapy Treatment Note PT-OP-A Visit Information Start: 03/08/22 17:00 Freq: Status: Active Protocol: Document 10/22/24 15:19 DCW (Rec: 10/22/24 16:14 DCW [id number]) Out-Patient Physical Therapy Visit Information Visit Information Visit Type Treatment Note Visit Start Time 15:19 Visit Stop Time 16:00 Visit Number [id number] Number of GENETIC COORDINATOR Visits 0 Evaluation Information Evaluation Date 03/08/22 PT-OP-B Current Condition Start: 03/08/22 17:00 Freq: Status: Active Protocol: Document 03/17/24 11:29 SAK (Rec: 03/17/24 12:23 SAK [id number]) Current Condition History of Current Condition Onset Date 12/16/21 Current Complaints Paraplegia History of Current Pt is a 71 year old male with a very unfortunate Condition medical history. Pt was hiking [place] on 12/16/21 with a friend, finished up, drive back to his friend's home to drop him off, and noticed his left leg was collapsing. By the time pt drove home, both legs were giving out and numb. Pt was suddenly paralized from the waist down, was taken to the ED, and was flown to [facility] on 12/17/21. The following day, he underwent a laminectomy to relieve pressure from the thoracic epidural hematoma which had developed following his hike, which was pressing on his spinal cord. Following surgery, pt was in recovery for a week and was then transfered to rehab for 20 days, when he was finally discharged home in a wheelchair on 01/19/22. Pt reports his surgeon informed him that it is a possibility that he gets some return of nerve function. Has experienced some changes in his right LE, but has no motor function at this time from ~T10 down. Minimal sensory return on right side, none on left. Pt has been anxious to get in to therapy and do everything he can to help return to function. Pt's , who attended his evaluation, notes that she has been doing a lot of PROM in his legs at night to keep everything moving. Pt can feel some stretching during PROM in his right leg. Pt has additionally already started occupational therapy, and has been practicing some seated stabilization. Pt transfers with a slide board, but notes it is difficult to do into his car, because he has to transfer upward at an incline. PT-OP-C Subjective Start: 03/08/22 17:00 Freq: Status: Active Protocol: Document 10/22/24 15:19 DCW (Rec: 10/22/24 16:14 DCW [id number]) OP-PT Subjective Patient Comments Patient Comments Pt doing well today, feeling like he continues to get increased sensation in his right leg. PT-OP-G Mobility & Gait Start: 03/08/22 17:00 Freq: Status: Active Protocol: Document 10/20/24 15:20 DCW (Rec: 10/20/24 16:01 DCW [id number]) OP Mobility Evaluation Transfers Bed to Chair Transfers using UE, improved with side-side movement, Transfers requires minimal verbal cues for LE positioning Car Transfers uses slide board, stabilizes front to back and prevent slide down board Functional Movements Other Functional Pt performs sit->supine->prone->quadruped with SBA 95% Movements of the time, requires Min Ax1 05%, typically with positioning of knees or feet, or getting up into quad from prone Wheelchair Management Type of Wheelchair Manual w/c Assessment Details Unable to perform tilt back to get over curb. Able to clear 2 obstacle 90% of the time. PT-OP-H Neuro Start: 03/08/22 17:00 Freq: Status: Active Protocol: Document 10/20/24 15:20 DCW (Rec: 10/20/24 16:01 DCW [id number]) Sensation Evaluation Gross Sensation Gross Sensation Left LE Impaired,Right LE Impaired,Trunk Impaired Sensation Paresthesia,Numbness,Tingling,Pins & [place],Burning Description Dermatome L1,L2,L3,L4,L5,S1,S2,S3,S4-5 Impairments Location Details Right Leg Light Touch Impaired Sharp/Dull Impaired Deep Pressure Intact/Normal Hot/Cold Absent Protective Sensation Absent Proprioception ( Impaired Position) Kinesthesia ( Impaired Movement) Two-Point Impaired Discrimination Tactile Localization Impaired Stereognosis Impaired Left Leg Light Touch Absent Sharp/Dull Absent Deep Pressure Impaired Hot/Cold Impaired Protective Sensation Absent Proprioception ( Absent Position) Kinesthesia ( Impaired Movement) Two-Point Absent Discrimination Tactile Localization Absent Stereognosis Absent Comments Summary Comments B protective reflex vs sharp present Deep Tendon Reflex & Clonus Assessment Deep Tendon Reflex Right Achilles Deep Tendon Reflex 2+ Normal Right Patellar Deep Tendon Reflex 2+ Normal Left Achilles Deep Tendon Reflex 2+ Normal Left Patellar Deep Tendon Reflex 1+ Diminished Ankle Clonus Right Clonus Assessment Sustained Left Clonus Assessment Sustained Muscle Tone Tone Assessment Right Lower Extremity Flexor Tone Moderate Hypertonicity Description Extensor Tone Moderate Hypertonicity Description Left Lower Extremity Flexor Tone Moderate Hypertonicity Description Extensor Tone Moderate Hypertonicity Description PT-OP-J Posture/Palpation/Skin Start: 03/08/22 17:00 Freq: Status: Active Protocol: Document 10/20/24 15:20 DCW (Rec: 10/20/24 16:01 DC [id number]) Posture Evaluation Comments Posture Comments Sitting EOB with good core control and no instability, uses UEs in lap for support. Recovers from directional pushing. Improved ability to reach outside of base of support. PT-OP-M Strength Start: 08/21/22 15:38 Freq: Status: Active Protocol: Document 10/20/24 15:20 DCW (Rec: 10/20/24 16:01 [facility] [id number]) Shoulder Strength Shoulder Manual Muscle Testing Right Flexion 4+ Good+ Extension 4+ Good+ Abduction (C5) 4+ Good+ External Rotation 4 Good Internal Rotation 4+ Good+ Left Flexion 4+ Good+ Extension 4+ Good+ Abduction (C5) 4+ Good+ External Rotation 4 Good Internal Rotation 4+ Good+ Elbow/Forearm Strength Elbow and Forearm Manual Muscle Testing Right Flexion (C6) 4+ Good+ Extension (C7) 4+ Good+ Left Flexion (C6) 4+ Good+ Extension (C7) 4 Good Hip Strength Hip Manual Muscle Testing Right Flexion (L2) 1 Trace Extension (S1) 2- Poor- Adduction 2- Poor- Left Flexion (L2) 1 Trace Extension (S1) 2- Poor- Adduction 1 Trace Knee Strength Knee Manual Muscle Testing Right Flexion (S2) 2- Poor- Extension (L3) 1 Trace Left Flexion (S2) 2- Poor- Extension (L3) 1 Trace Ankle/Foot Strength Ankle and Foot Manual Muscle Testing Right Dorsiflexion (L4) 1 Trace Plantarflexion (S1) 2 Poor Left Plantarflexion (S1) 1 Trace PT-OP-Q Treatments Start: 03/08/22 17:00 Freq: Status: Active Protocol: Document 10/22/24 15:19 DCW (Rec: 10/22/24 16:14 DCW [id number]) Cardio Equipment Recumbent Stepper (Sci-Fit) Duration (Minutes) 10 Resistance 8 Seat Position Seat 9, Handles 9 Other Nu-Step, 40-50 stm Gym Equipment Cable Column (Body Solid) Bench Press Details Seated bench press - cables under axilla bilaterally, towel on handle Resistance 35# 3x10 Reps/Time Height: 5 holes seen from bottom Triceps Details Seated Triceps Press Resistance 30# 2x8 Reps/Time Height: 12 holes seen from botto] cable row Details PT assist to maintain upright posture Resistance 35# x10, 45# x12, x10 lateral pulldown Details Lat Pulldown Resistance 70# Reps/Time x15, x10, x8 PT-OP-T Assessment and Plan Start: 03/08/22 17:00 Freq: Status: Active Protocol: Document 10/22/24 15:19 DCW (Rec: 10/22/24 16:14 DCW [id number]) Physical Therapy Assessment Impairments Impairments Activity Tolerance,Balance,Coordination,Functional Activities,Functional Mobility,Gait,Integument, Sensation,Soft Tissue Mobility,Strength,Tone,Transfers Goals Four Impairment Bilateral triceps weakness (R 4-, L 3+) [employer] Goal (LTG) Pt to demonstrate improved triceps strength to at least 4/5 bilaterally for elbow extension in order to improve transfer ability. LTG Duration 01/18/25 - Improving Three Impairment Pt does not have any motor function throughout bilateral LEs Short Term Goal (STG Pt to demonstrate 1/5 trace motor contraction in at ) least one quad in order to begin focus on LE mobility if neural functional return begins. STG Duration Met [employer] Goal (LTG) Pt to demonstrate right quad strength to at least 2/5, demonstrating movement into ROM in an antigravity position LTG Duration 01/18/25 Two Impairment Pt struggles with lateral transfer/scooting along EOB [employer] Goal (LTG) Pt to perform lateral scoot transfer using proper technique without any verbal cues 4x in a row. LTG Duration 01/18/25 One Impairment Pt does not have an appropriate home exercise program Short Term Goal (STG Pt to be independent and compliant with an appropriate ) HEP STG Duration 12/18/24 Assessment Summary Assessment Pt continues to do very well with UE strengthening. Improving activity tolerance and some increase in resistance. Transfers, strength, balance, functional mobility, and activity tolerance all appropriate to continue to work on. Physical Therapy Plan Frequency and Duration Frequency of 2x/Week Treatment Plan of Care Start 10/20/24 Date Plan of Care End 01/18/25 Date Therapeutic Interventions Therapeutic Aquatic Therapy,Balance Training,Coordination Training, Interventions Gait Training,Home Exercise Program,Manual Therapy, Neuromuscular Re-education,Orthotic/Prosthetic Management,Patient/Caregiver Education,Self-Care/Home Management,Sensory Integration,Soft Tissue Mobilization ,Therapeutic Activities,Therapeutic Exercises, Wheelchair Management Next Visit Focus/Plan Next Note Type Treatment Note Next Visit Plan Next: core progression in hooklying or quadruped. Consider side planks and supine>sidelying bed mobility focus. Continue PT per POC: Continue L log roll, L SL> quadruped, Lateral transfers to elevated surfaces more trunk flexion/frequent scoots decreased assist, Wheelchair wheelies, curb management, POC: Continue UE and core strengthening, LE PROM and manual stretching. Transfers, mobility, LE ROM, pt will benefit from continued breakdown of transfers to improve efficiency and mechanics, as well as working on more seated balance EOB.
--- NOTE | 2024-10-27 16:07 | PT.OTN ---
Current Diagnoses Paraplegia, unspecified (10/27/24) Other specified personal risk factors, not elsewhere classified (10/27/24) Other specified postprocedural states (10/27/24) Physical Therapy Treatment Note PT-OP-A Visit Information Start: 03/08/22 17:00 Freq: Status: Active Protocol: Document 10/27/24 14:57 NBM (Rec: 10/27/24 16:00 NBM Laptop) Out-Patient Physical Therapy Visit Information Visit Information Visit Type Treatment Note Visit Start Time 14:38 Visit Stop Time 15:20 Visit Number [id number] Number of CORRECTION WORKER Visits 1 Evaluation Information Evaluation Date 03/08/22 PT-OP-B Current Condition Start: 03/08/22 17:00 Freq: Status: Active Protocol: Document 03/17/24 11:29 SAK (Rec: 03/17/24 12:23 SAK [id number]) Current Condition History of Current Condition Onset Date 12/16/21 Current Complaints Paraplegia History of Current Pt is a 71 year old male with a very unfortunate Condition medical history. Pt was hiking [employer] on 12/16/21 with a friend, finished up, drive back to his friend's home to drop him off, and noticed his left leg was collapsing. By the time pt drove home, both legs were giving out and numb. Pt was suddenly paralized from the waist down, was taken to the ED, and was flown to [facility] on 12/17/21. The following day, he underwent a laminectomy to relieve pressure from the thoracic epidural hematoma which had developed following his hike, which was pressing on his spinal cord. Following surgery, pt was in recovery for a week and was then transfered to rehab for 20 days, when he was finally discharged home in a wheelchair on 01/19/22. Pt reports his surgeon informed him that it is a possibility that he gets some return of nerve function. Has experienced some changes in his right LE, but has no motor function at this time from ~T10 down. Minimal sensory return on right side, none on left. Pt has been anxious to get in to therapy and do everything he can to help return to function. Pt's , who attended his evaluation, notes that she has been doing a lot of PROM in his legs at night to keep everything moving. Pt can feel some stretching during PROM in his right leg. Pt has additionally already started occupational therapy, and has been practicing some seated stabilization. Pt transfers with a slide board, but notes it is difficult to do into his car, because he has to transfer upward at an incline. PT-OP-C Subjective Start: 03/08/22 17:00 Freq: Status: Active Protocol: Document 10/27/24 14:57 NBM (Rec: 10/27/24 16:00 NBM Laptop) OP-PT Subjective Patient Comments Patient Comments Toby reports getting out of bed is the most challenging thing at home. PT-OP-G Mobility & Gait Start: 03/08/22 17:00 Freq: Status: Active Protocol: Document 10/20/24 15:20 DCW (Rec: 10/20/24 16:01 DCW [id number]) OP Mobility Evaluation Transfers Bed to Chair Transfers using UE, improved with side-side movement, Transfers requires minimal verbal cues for LE positioning Car Transfers uses slide board, stabilizes front to back and prevent slide down board Functional Movements Other Functional Pt performs sit->supine->prone->quadruped with SBA 95% Movements of the time, requires Min Ax1 05%, typically with positioning of knees or feet, or getting up into quad from prone Wheelchair Management Type of Wheelchair Manual w/c Assessment Details Unable to perform tilt back to get over curb. Able to clear 2 obstacle 90% of the time. PT-OP-H Neuro Start: 03/08/22 17:00 Freq: Status: Active Protocol: Document 10/20/24 15:20 DCW (Rec: 10/20/24 16:01 DCW [id number]) Sensation Evaluation Gross Sensation Gross Sensation Left LE Impaired,Right LE Impaired,Trunk Impaired Sensation Paresthesia,Numbness,Tingling,Pins & [place],Burning Description Dermatome L1,L2,L3,L4,L5,S1,S2,S3,S4-5 Impairments Location Details Right Leg Light Touch Impaired Sharp/Dull Impaired Deep Pressure Intact/Normal Hot/Cold Absent Protective Sensation Absent Proprioception ( Impaired Position) Kinesthesia ( Impaired Movement) Two-Point Impaired Discrimination Tactile Localization Impaired Stereognosis Impaired Left Leg Light Touch Absent Sharp/Dull Absent Deep Pressure Impaired Hot/Cold Impaired Protective Sensation Absent Proprioception ( Absent Position) Kinesthesia ( Impaired Movement) Two-Point Absent Discrimination Tactile Localization Absent Stereognosis Absent Comments Summary Comments B protective reflex vs sharp present Deep Tendon Reflex & Clonus Assessment Deep Tendon Reflex Right Achilles Deep Tendon Reflex 2+ Normal Right Patellar Deep Tendon Reflex 2+ Normal Left Achilles Deep Tendon Reflex 2+ Normal Left Patellar Deep Tendon Reflex 1+ Diminished Ankle Clonus Right Clonus Assessment Sustained Left Clonus Assessment Sustained Muscle Tone Tone Assessment Right Lower Extremity Flexor Tone Moderate Hypertonicity Description Extensor Tone Moderate Hypertonicity Description Left Lower Extremity Flexor Tone Moderate Hypertonicity Description Extensor Tone Moderate Hypertonicity Description PT-OP-J Posture/Palpation/Skin Start: 03/08/22 17:00 Freq: Status: Active Protocol: Document 10/20/24 15:20 DCW (Rec: 10/20/24 16:01 [facility] [id number]) Posture Evaluation Comments Posture Comments Sitting EOB with good core control and no instability, uses UEs in lap for support. Recovers from directional pushing. Improved ability to reach outside of base of support. PT-OP-M Strength Start: 08/21/22 15:38 Freq: Status: Active Protocol: Document 10/20/24 15:20 DCW (Rec: 10/20/24 16:01 [facility] [id number]) Shoulder Strength Shoulder Manual Muscle Testing Right Flexion 4+ Good+ Extension 4+ Good+ Abduction (C5) 4+ Good+ External Rotation 4 Good Internal Rotation 4+ Good+ Left Flexion 4+ Good+ Extension 4+ Good+ Abduction (C5) 4+ Good+ External Rotation 4 Good Internal Rotation 4+ Good+ Elbow/Forearm Strength Elbow and Forearm Manual Muscle Testing Right Flexion (C6) 4+ Good+ Extension (C7) 4+ Good+ Left Flexion (C6) 4+ Good+ Extension (C7) 4 Good Hip Strength Hip Manual Muscle Testing Right Flexion (L2) 1 Trace Extension (S1) 2- Poor- Adduction 2- Poor- Left Flexion (L2) 1 Trace Extension (S1) 2- Poor- Adduction 1 Trace Knee Strength Knee Manual Muscle Testing Right Flexion (S2) 2- Poor- Extension (L3) 1 Trace Left Flexion (S2) 2- Poor- Extension (L3) 1 Trace Ankle/Foot Strength Ankle and Foot Manual Muscle Testing Right Dorsiflexion (L4) 1 Trace Plantarflexion (S1) 2 Poor Left Plantarflexion (S1) 1 Trace PT-OP-Q Treatments Start: 03/08/22 17:00 Freq: Status: Active Protocol: Document 10/27/24 14:57 NBM (Rec: 10/27/24 16:00 [facility] Laptop) Therapeutic Exercises Sidelying Exercises Open book Sidelying Exercise Open book Name Side bilateral Resistance 3# DB Equipment Used manual pelvic stabilization, manual hip abd stretch on R>L Reps/Minutes x10 AROM, 1 min hold stretch Comments vc for head to follow hand Other Exercises short kneel Other Exercise Name short kneeling /c self thigh support Reps/Minutes before and after sets of push-ups Thread the needle Other Exercise Name Thread the needle on forearms/knees Side bilateral Comments cues for max reach, head follows hand quadruped child's pose Other Exercise Name Child's pose on forearms fwd quadruped Other Exercise Name push ups decreased KIARA: 1. hands ~4 in closer 2. hands under shoulders Resistance CGA Equipment Used des' pose and short kneel stretch in between sets Reps/Minutes 1. x18, 2. x13, x10 Comments pt self heavy support BUEs Therapeutic Activity Therapeutic Activity supine>prone>quadruped Name SBA: into quadruped<> L SL, heavy pt BUE support Neuro Re-Education Treatment Balance Activities Seated balance Reps/Duration 1x Comments End of session pt dons vest seated EOB on mat table instead of in w/c. LOB to R w/ self-recovery using R hand. Self-Care/Home Management Treatment Education Patient Education Body Mechanics,Home Exercise Program,Safety Other Education Edu to pt for getting out of bed in the morning to try abducting arm more for pushing off of elbow in sidelying. PT-OP-T Assessment and Plan Start: 03/08/22 17:00 Freq: Status: Active Protocol: Document 10/27/24 14:57 [facility] (Rec: 10/27/24 16:00 [facility] Laptop) Physical Therapy Assessment Goals Four Impairment Bilateral triceps weakness (R 4-, L 3+) [facility] Goal (LTG) Pt to demonstrate improved triceps strength to at least 4/5 bilaterally for elbow extension in order to improve transfer ability. LTG Duration 01/18/25 - Improving Three Impairment Pt does not have any motor function throughout bilateral LEs Short Term Goal (STG Pt to demonstrate 1/5 trace motor contraction in at ) least one quad in order to begin focus on LE mobility if neural functional return begins. STG Duration Met Technical Director Goal (LTG) Pt to demonstrate right quad strength to at least 2/5, demonstrating movement into ROM in an antigravity position LTG Duration 01/18/25 Two Impairment Pt struggles with lateral transfer/scooting along EOB [facility] Goal (LTG) Pt to perform lateral scoot transfer using proper technique without any verbal cues 4x in a row. LTG Duration 01/18/25 One Impairment Pt does not have an appropriate home exercise program Short Term Goal (STG Pt to be independent and compliant with an appropriate ) HEP STG Duration 12/18/24 Assessment Summary Assessment Treatment focus on upper extremity strengthening and stretching. During session Toby reports feeling depressed upon arrival but mood is more positive with therapeutic exercises. He is able to complete more reps of push-ups in smaller base of support, demonstrating improving triceps strength. Positive feedback response to all stretching. Dynamic balance is challenged with donning vest seated edge of mat table instead of in wheelchair. Edu to pt for getting out of bed in the morning to try abducting arm more for pushing off of elbow in sidelying.
--- NOTE | 2024-11-02 16:01 | PT.OTN ---
Current Diagnoses Paraplegia, unspecified (11/02/24) Other specified personal risk factors, not elsewhere classified (11/02/24) Other specified postprocedural states (11/02/24) Physical Therapy Treatment Note PT-OP-A Visit Information Start: 03/08/22 17:00 Freq: Status: Active Protocol: Document 11/02/24 15:18 DCW (Rec: 11/02/24 16:01 DCW [id number]) Out-Patient Physical Therapy Visit Information Visit Information Visit Type Treatment Note Visit Start Time 15:18 Visit Stop Time 16:00 Visit Number 240 Number of ROOTER OPERATOR Visits 0 Evaluation Information Evaluation Date 03/08/22 PT-OP-B Current Condition Start: 03/08/22 17:00 Freq: Status: Active Protocol: Document 03/17/24 11:29 SAK (Rec: 03/17/24 12:23 SAK [id number]) Current Condition History of Current Condition Onset Date 12/16/21 Current Complaints Paraplegia History of Current Pt is a 71 year old male with a very unfortunate Condition medical history. Pt was hiking [employer] on 12/16/21 with a friend, finished up, drive back to his friend's home to drop him off, and noticed his left leg was collapsing. By the time pt drove home, both legs were giving out and numb. Pt was suddenly paralized from the waist down, was taken to the ED, and was flown to [facility] on 12/17/21. The following day, he underwent a laminectomy to relieve pressure from the thoracic epidural hematoma which had developed following his hike, which was pressing on his spinal cord. Following surgery, pt was in recovery for a week and was then transfered to rehab for 20 days, when he was finally discharged home in a wheelchair on 01/19/22. Pt reports his surgeon informed him that it is a possibility that he gets some return of nerve function. Has experienced some changes in his right LE, but has no motor function at this time from ~T10 down. Minimal sensory return on right side, none on left. Pt has been anxious to get in to therapy and do everything he can to help return to function. Pt's , who attended his evaluation, notes that she has been doing a lot of PROM in his legs at night to keep everything moving. Pt can feel some stretching during PROM in his right leg. Pt has additionally already started occupational therapy, and has been practicing some seated stabilization. Pt transfers with a slide board, but notes it is difficult to do into his car, because he has to transfer upward at an incline. PT-OP-C Subjective Start: 03/08/22 17:00 Freq: Status: Active Protocol: Document 11/02/24 15:18 DCW (Rec: 11/02/24 16:01 DCW [id number]) OP-PT Subjective Patient Comments Patient Comments Pt feeling pretty good today. PT-OP-G Mobility & Gait Start: 03/08/22 17:00 Freq: Status: Active Protocol: Document 10/20/24 15:20 DCW (Rec: 10/20/24 16:01 DCW [id number]) OP Mobility Evaluation Transfers Bed to Chair Transfers using UE, improved with side-side movement, Transfers requires minimal verbal cues for LE positioning Car Transfers uses slide board, stabilizes front to back and prevent slide down board Functional Movements Other Functional Pt performs sit->supine->prone->quadruped with SBA 95% Movements of the time, requires Min Ax1 05%, typically with positioning of knees or feet, or getting up into quad from prone Wheelchair Management Type of Wheelchair Manual w/c Assessment Details Unable to perform tilt back to get over curb. Able to clear 2 obstacle 90% of the time. PT-OP-H Neuro Start: 03/08/22 17:00 Freq: Status: Active Protocol: Document 10/20/24 15:20 DCW (Rec: 10/20/24 16:01 DCW [id number]) Sensation Evaluation Gross Sensation Gross Sensation Left LE Impaired,Right LE Impaired,Trunk Impaired Sensation Paresthesia,Numbness,Tingling,Pins & [place],Burning Description Dermatome L1,L2,L3,L4,L5,S1,S2,S3,S4-5 Impairments Location Details Right Leg Light Touch Impaired Sharp/Dull Impaired Deep Pressure Intact/Normal Hot/Cold Absent Protective Sensation Absent Proprioception ( Impaired Position) Kinesthesia ( Impaired Movement) Two-Point Impaired Discrimination Tactile Localization Impaired Stereognosis Impaired Left Leg Light Touch Absent Sharp/Dull Absent Deep Pressure Impaired Hot/Cold Impaired Protective Sensation Absent Proprioception ( Absent Position) Kinesthesia ( Impaired Movement) Two-Point Absent Discrimination Tactile Localization Absent Stereognosis Absent Comments Summary Comments B protective reflex vs sharp present Deep Tendon Reflex & Clonus Assessment Deep Tendon Reflex Right Achilles Deep Tendon Reflex 2+ Normal Right Patellar Deep Tendon Reflex 2+ Normal Left Achilles Deep Tendon Reflex 2+ Normal Left Patellar Deep Tendon Reflex 1+ Diminished Ankle Clonus Right Clonus Assessment Sustained Left Clonus Assessment Sustained Muscle Tone Tone Assessment Right Lower Extremity Flexor Tone Moderate Hypertonicity Description Extensor Tone Moderate Hypertonicity Description Left Lower Extremity Flexor Tone Moderate Hypertonicity Description Extensor Tone Moderate Hypertonicity Description PT-OP-J Posture/Palpation/Skin Start: 03/08/22 17:00 Freq: Status: Active Protocol: Document 10/20/24 15:20 DCW (Rec: 10/20/24 16:01 DCW [id number]) Posture Evaluation Comments Posture Comments Sitting EOB with good core control and no instability, uses UEs in lap for support. Recovers from directional pushing. Improved ability to reach outside of base of support. PT-OP-M Strength Start: 08/21/22 15:38 Freq: Status: Active Protocol: Document 10/20/24 15:20 DCW (Rec: 10/20/24 16:01 DCW [id number]) Shoulder Strength Shoulder Manual Muscle Testing Right Flexion 4+ Good+ Extension 4+ Good+ Abduction (C5) 4+ Good+ External Rotation 4 Good Internal Rotation 4+ Good+ Left Flexion 4+ Good+ Extension 4+ Good+ Abduction (C5) 4+ Good+ External Rotation 4 Good Internal Rotation 4+ Good+ Elbow/Forearm Strength Elbow and Forearm Manual Muscle Testing Right Flexion (C6) 4+ Good+ Extension (C7) 4+ Good+ Left Flexion (C6) 4+ Good+ Extension (C7) 4 Good Hip Strength Hip Manual Muscle Testing Right Flexion (L2) 1 Trace Extension (S1) 2- Poor- Adduction 2- Poor- Left Flexion (L2) 1 Trace Extension (S1) 2- Poor- Adduction 1 Trace Knee Strength Knee Manual Muscle Testing Right Flexion (S2) 2- Poor- Extension (L3) 1 Trace Left Flexion (S2) 2- Poor- Extension (L3) 1 Trace Ankle/Foot Strength Ankle and Foot Manual Muscle Testing Right Dorsiflexion (L4) 1 Trace Plantarflexion (S1) 2 Poor Left Plantarflexion (S1) 1 Trace PT-OP-Q Treatments Start: 03/08/22 17:00 Freq: Status: Active Protocol: Document 11/02/24 15:18 DCW (Rec: 11/02/24 16:01 DCW [id number]) Cardio Equipment Recumbent Stepper (Sci-Fit) Duration (Minutes) 10 Resistance 8 Seat Position Seat 9, Handles 9 Other Nu-Step Gym Equipment Cable Column (Body Solid) Bench Press Details Seated bench press - cables under axilla bilaterally, towel on handle Resistance 35# x11, x9 Reps/Time Height: 5 holes seen from bottom Triceps Details Seated Triceps Press Resistance 30# x7, x6, x5 Reps/Time Height: 13 holes seen from bottom cable row Details PT assist to maintain upright posture Resistance 45# Reps/Time x12, 2x10 lateral pulldown Details Lat Pulldown Resistance 70# Reps/Time x15, x10, x11 Therapeutic Exercises Sitting Exercises Biceps Curls Sitting Exercise Biceps Curls Name Side bilateral Resistance 10# Reps/Minutes x10 PT-OP-T Assessment and Plan Start: 03/08/22 17:00 Freq: Status: Active Protocol: Document 11/02/24 15:18 DCW (Rec: 11/02/24 16:01 DCW [id number]) Physical Therapy Assessment Impairments Impairments Activity Tolerance,Balance,Coordination,Functional Activities,Functional Mobility,Gait,Integument, Sensation,Soft Tissue Mobility,Strength,Tone,Transfers Goals Four Impairment Bilateral triceps weakness (R 4-, L 3+) Nursing Home Goal (LTG) Pt to demonstrate improved triceps strength to at least 4/5 bilaterally for elbow extension in order to improve transfer ability. LTG Duration 01/18/25 - Improving Three Impairment Pt does not have any motor function throughout bilateral LEs Short Term Goal (STG Pt to demonstrate 1/5 trace motor contraction in at ) least one quad in order to begin focus on LE mobility if neural functional return begins. STG Duration Met Trawl Net Maker Goal (LTG) Pt to demonstrate right quad strength to at least 2/5, demonstrating movement into ROM in an antigravity position LTG Duration 01/18/25 Two Impairment Pt struggles with lateral transfer/scooting along EOB Nursing Home Goal (LTG) Pt to perform lateral scoot transfer using proper technique without any verbal cues 4x in a row. LTG Duration 01/18/25 One Impairment Pt does not have an appropriate home exercise program Short Term Goal (STG Pt to be independent and compliant with an appropriate ) HEP STG Duration 12/18/24 Assessment Summary Assessment Pt continues to put forth great effort with upper extremity strengthening, feeling transfers are easier. Continue to focus on strength, transfers, balance, and functional mobility. Physical Therapy Plan Frequency and Duration Frequency of 2x/Week Treatment Plan of Care Start 10/20/24 Date Plan of Care End 01/18/25 Date Therapeutic Interventions Therapeutic Aquatic Therapy,Balance Training,Coordination Training, Interventions Gait Training,Home Exercise Program,Manual Therapy, Neuromuscular Re-education,Orthotic/Prosthetic Management,Patient/Caregiver Education,Self-Care/Home Management,Sensory Integration,Soft Tissue Mobilization ,Therapeutic Activities,Therapeutic Exercises, Wheelchair Management Next Visit Focus/Plan Next Note Type Treatment Note Next Visit Plan Next: core progression in hooklying or quadruped. Consider side planks and supine>sidelying bed mobility focus. Continue PT per POC: Continue L log roll, L SL> quadruped, Lateral transfers to elevated surfaces more trunk flexion/frequent scoots decreased assist, Wheelchair wheelies, curb management, POC: Continue UE and core strengthening, LE PROM and manual stretching. Transfers, mobility, LE ROM, pt will benefit from continued breakdown of transfers to improve efficiency and mechanics, as well as working on more seated balance EOB.
--- NOTE | 2024-11-04 16:02 | PT.OTN ---
Current Diagnoses Paraplegia, unspecified (11/04/24) Other specified personal risk factors, not elsewhere classified (11/04/24) Other specified postprocedural states (11/04/24) Physical Therapy Treatment Note PT-OP-A Visit Information Start: 03/08/22 17:00 Freq: Status: Active Protocol: Document 11/04/24 15:20 DCW (Rec: 11/04/24 16:02 DCW [id number]) Out-Patient Physical Therapy Visit Information Visit Information Visit Type Treatment Note Visit Start Time 15:20 Visit Stop Time 16:00 Visit Number 241 Number of CROP SETTING OUT MACHINE OPERATOR Visits 0 Evaluation Information Evaluation Date 03/08/22 PT-OP-B Current Condition Start: 03/08/22 17:00 Freq: Status: Active Protocol: Document 03/17/24 11:29 SAK (Rec: 03/17/24 12:23 SAK [id number]) Current Condition History of Current Condition Onset Date 12/16/21 Current Complaints Paraplegia History of Current Pt is a 71 year old male with a very unfortunate Condition medical history. Pt was hiking [employer] on 12/16/21 with a friend, finished up, drive back to his friend's home to drop him off, and noticed his left leg was collapsing. By the time pt drove home, both legs were giving out and numb. Pt was suddenly paralized from the waist down, was taken to the ED, and was flown to [facility] on 12/17/21. The following day, he underwent a laminectomy to relieve pressure from the thoracic epidural hematoma which had developed following his hike, which was pressing on his spinal cord. Following surgery, pt was in recovery for a week and was then transfered to rehab for 20 days, when he was finally discharged home in a wheelchair on 01/19/22. Pt reports his surgeon informed him that it is a possibility that he gets some return of nerve function. Has experienced some changes in his right LE, but has no motor function at this time from ~T10 down. Minimal sensory return on right side, none on left. Pt has been anxious to get in to therapy and do everything he can to help return to function. Pt's , who attended his evaluation, notes that she has been doing a lot of PROM in his legs at night to keep everything moving. Pt can feel some stretching during PROM in his right leg. Pt has additionally already started occupational therapy, and has been practicing some seated stabilization. Pt transfers with a slide board, but notes it is difficult to do into his car, because he has to transfer upward at an incline. PT-OP-C Subjective Start: 03/08/22 17:00 Freq: Status: Active Protocol: Document 11/04/24 15:20 DCW (Rec: 11/04/24 16:02 DCW [id number]) OP-PT Subjective Patient Comments Patient Comments Pt exhausted from being in court this morning. PT-OP-G Mobility & Gait Start: 03/08/22 17:00 Freq: Status: Active Protocol: Document 10/20/24 15:20 DCW (Rec: 10/20/24 16:01 DCW [id number]) OP Mobility Evaluation Transfers Bed to Chair Transfers using UE, improved with side-side movement, Transfers requires minimal verbal cues for LE positioning Car Transfers uses slide board, stabilizes front to back and prevent slide down board Functional Movements Other Functional Pt performs sit->supine->prone->quadruped with SBA 95% Movements of the time, requires Min Ax1 05%, typically with positioning of knees or feet, or getting up into quad from prone Wheelchair Management Type of Wheelchair Manual w/c Assessment Details Unable to perform tilt back to get over curb. Able to clear 2 obstacle 90% of the time. PT-OP-H Neuro Start: 03/08/22 17:00 Freq: Status: Active Protocol: Document 10/20/24 15:20 DCW (Rec: 10/20/24 16:01 DCW [id number]) Sensation Evaluation Gross Sensation Gross Sensation Left LE Impaired,Right LE Impaired,Trunk Impaired Sensation Paresthesia,Numbness,Tingling,Pins & [place],Burning Description Dermatome L1,L2,L3,L4,L5,S1,S2,S3,S4-5 Impairments Location Details Right Leg Light Touch Impaired Sharp/Dull Impaired Deep Pressure Intact/Normal Hot/Cold Absent Protective Sensation Absent Proprioception ( Impaired Position) Kinesthesia ( Impaired Movement) Two-Point Impaired Discrimination Tactile Localization Impaired Stereognosis Impaired Left Leg Light Touch Absent Sharp/Dull Absent Deep Pressure Impaired Hot/Cold Impaired Protective Sensation Absent Proprioception ( Absent Position) Kinesthesia ( Impaired Movement) Two-Point Absent Discrimination Tactile Localization Absent Stereognosis Absent Comments Summary Comments B protective reflex vs sharp present Deep Tendon Reflex & Clonus Assessment Deep Tendon Reflex Right Achilles Deep Tendon Reflex 2+ Normal Right Patellar Deep Tendon Reflex 2+ Normal Left Achilles Deep Tendon Reflex 2+ Normal Left Patellar Deep Tendon Reflex 1+ Diminished Ankle Clonus Right Clonus Assessment Sustained Left Clonus Assessment Sustained Muscle Tone Tone Assessment Right Lower Extremity Flexor Tone Moderate Hypertonicity Description Extensor Tone Moderate Hypertonicity Description Left Lower Extremity Flexor Tone Moderate Hypertonicity Description Extensor Tone Moderate Hypertonicity Description PT-OP-J Posture/Palpation/Skin Start: 03/08/22 17:00 Freq: Status: Active Protocol: Document 10/20/24 15:20 DCW (Rec: 10/20/24 16:01 [facility] [id number]) Posture Evaluation Comments Posture Comments Sitting EOB with good core control and no instability, uses UEs in lap for support. Recovers from directional pushing. Improved ability to reach outside of base of support. PT-OP-M Strength Start: 08/21/22 15:38 Freq: Status: Active Protocol: Document 10/20/24 15:20 DCW (Rec: 10/20/24 16:01 [facility] [id number]) Shoulder Strength Shoulder Manual Muscle Testing Right Flexion 4+ Good+ Extension 4+ Good+ Abduction (C5) 4+ Good+ External Rotation 4 Good Internal Rotation 4+ Good+ Left Flexion 4+ Good+ Extension 4+ Good+ Abduction (C5) 4+ Good+ External Rotation 4 Good Internal Rotation 4+ Good+ Elbow/Forearm Strength Elbow and Forearm Manual Muscle Testing Right Flexion (C6) 4+ Good+ Extension (C7) 4+ Good+ Left Flexion (C6) 4+ Good+ Extension (C7) 4 Good Hip Strength Hip Manual Muscle Testing Right Flexion (L2) 1 Trace Extension (S1) 2- Poor- Adduction 2- Poor- Left Flexion (L2) 1 Trace Extension (S1) 2- Poor- Adduction 1 Trace Knee Strength Knee Manual Muscle Testing Right Flexion (S2) 2- Poor- Extension (L3) 1 Trace Left Flexion (S2) 2- Poor- Extension (L3) 1 Trace Ankle/Foot Strength Ankle and Foot Manual Muscle Testing Right Dorsiflexion (L4) 1 Trace Plantarflexion (S1) 2 Poor Left Plantarflexion (S1) 1 Trace PT-OP-Q Treatments Start: 03/08/22 17:00 Freq: Status: Active Protocol: Document 11/04/24 15:20 DCW (Rec: 11/04/24 16:02 DCW [id number]) Cardio Equipment Recumbent Stepper (Sci-Fit) Duration (Minutes) 10 Resistance 8 Seat Position Seat 9, Handles 9 Other Nu-Step Therapeutic Exercises Other Exercises short kneel Other Exercise Name short kneeling /c self thigh support Reps/Minutes before and after sets of push-ups Thread the needle Other Exercise Name Thread the needle on forearms/knees Side bilateral Comments cues for max reach, head follows hand Push-ups Other Exercise Name Push-up in quadruped Reps/Minutes 3x15 Therapeutic Activity Therapeutic Activity supine>prone>quadruped Name SBA: into quadruped<> L SL, heavy pt BUE support PT-OP-T Assessment and Plan Start: 03/08/22 17:00 Freq: Status: Active Protocol: Document 11/04/24 15:20 DCW (Rec: 11/04/24 16:02 DCW [id number]) Physical Therapy Assessment Impairments Impairments Activity Tolerance,Balance,Coordination,Functional Activities,Functional Mobility,Gait,Integument, Sensation,Soft Tissue Mobility,Strength,Tone,Transfers Goals Four Impairment Bilateral triceps weakness (R 4-, L 3+) Retirement Goal (LTG) Pt to demonstrate improved triceps strength to at least 4/5 bilaterally for elbow extension in order to improve transfer ability. LTG Duration 01/18/25 - Improving Three Impairment Pt does not have any motor function throughout bilateral LEs Short Term Goal (STG Pt to demonstrate 1/5 trace motor contraction in at ) least one quad in order to begin focus on LE mobility if neural functional return begins. STG Duration Met Retirement Goal (LTG) Pt to demonstrate right quad strength to at least 2/5, demonstrating movement into ROM in an antigravity position LTG Duration 01/18/25 Two Impairment Pt struggles with lateral transfer/scooting along EOB Retirement Goal (LTG) Pt to perform lateral scoot transfer using proper technique without any verbal cues 4x in a row. LTG Duration 01/18/25 One Impairment Pt does not have an appropriate home exercise program Short Term Goal (STG Pt to be independent and compliant with an appropriate ) HEP STG Duration 12/18/24 Assessment Summary Assessment Performed quadruped exercises on a smaller table today, pt displayed increased struggle with bed mobility. Overall, however, did well upon getting into position. Physical Therapy Plan Frequency and Duration Frequency of 2x/Week Treatment Plan of Care Start 10/20/24 Date Plan of Care End 01/18/25 Date Therapeutic Interventions Therapeutic Aquatic Therapy,Balance Training,Coordination Training, Interventions Gait Training,Home Exercise Program,Manual Therapy, Neuromuscular Re-education,Orthotic/Prosthetic Management,Patient/Caregiver Education,Self-Care/Home Management,Sensory Integration,Soft Tissue Mobilization ,Therapeutic Activities,Therapeutic Exercises, Wheelchair Management Next Visit Focus/Plan Next Note Type Treatment Note Next Visit Plan Next: core progression in hooklying or quadruped. Consider side planks and supine>sidelying bed mobility focus. Continue PT per POC: Continue L log roll, L SL> quadruped, Lateral transfers to elevated surfaces more trunk flexion/frequent scoots decreased assist, Wheelchair wheelies, curb management, POC: Continue UE and core strengthening, LE PROM and manual stretching. Transfers, mobility, LE ROM, pt will benefit from continued breakdown of transfers to improve efficiency and mechanics, as well as working on more seated balance EOB.
--- NOTE | 2024-11-09 17:44 | PT.OTN ---
Current Diagnoses Paraplegia, unspecified (11/09/24) Other specified personal risk factors, not elsewhere classified (11/09/24) Other specified postprocedural states (11/09/24) Physical Therapy Treatment Note PT-OP-A Visit Information Start: 03/08/22 17:00 Freq: Status: Active Protocol: Document 11/09/24 13:04 NBM (Rec: 11/09/24 17:43 NBM Laptop) Out-Patient Physical Therapy Visit Information Visit Information Visit Type Treatment Note Visit Start Time 13:05 Visit Stop Time 13:49 Visit Number [id number] Number of EXTRUDING PRESS ADJUSTER Visits 1 Evaluation Information Evaluation Date 03/08/22 PT-OP-B Current Condition Start: 03/08/22 17:00 Freq: Status: Active Protocol: Document 03/17/24 11:29 SAK (Rec: 03/17/24 12:23 SAK [id number]) Current Condition History of Current Condition Onset Date 12/16/21 Current Complaints Paraplegia History of Current Pt is a 71 year old male with a very unfortunate Condition medical history. Pt was hiking [place] on 12/16/21 with a friend, finished up, drive back to his friend's home to drop him off, and noticed his left leg was collapsing. By the time pt drove home, both legs were giving out and numb. Pt was suddenly paralized from the waist down, was taken to the ED, and was flown to [facility] on 12/17/21. The following day, he underwent a laminectomy to relieve pressure from the thoracic epidural hematoma which had developed following his hike, which was pressing on his spinal cord. Following surgery, pt was in recovery for a week and was then transfered to rehab for 20 days, when he was finally discharged home in a wheelchair on 01/19/22. Pt reports his surgeon informed him that it is a possibility that he gets some return of nerve function. Has experienced some changes in his right LE, but has no motor function at this time from ~T10 down. Minimal sensory return on right side, none on left. Pt has been anxious to get in to therapy and do everything he can to help return to function. Pt's , who attended his evaluation, notes that she has been doing a lot of PROM in his legs at night to keep everything moving. Pt can feel some stretching during PROM in his right leg. Pt has additionally already started occupational therapy, and has been practicing some seated stabilization. Pt transfers with a slide board, but notes it is difficult to do into his car, because he has to transfer upward at an incline. PT-OP-C Subjective Start: 03/08/22 17:00 Freq: Status: Active Protocol: Document 11/09/24 13:04 NBM (Rec: 11/09/24 17:43 NBM Laptop) OP-PT Subjective Patient Comments Patient Comments Toby reports he is doing well today. PT-OP-G Mobility & Gait Start: 03/08/22 17:00 Freq: Status: Active Protocol: Document 10/20/24 15:20 DCW (Rec: 10/20/24 16:01 DCW [id number]) OP Mobility Evaluation Transfers Bed to Chair Transfers using UE, improved with side-side movement, Transfers requires minimal verbal cues for LE positioning Car Transfers uses slide board, stabilizes front to back and prevent slide down board Functional Movements Other Functional Pt performs sit->supine->prone->quadruped with SBA 95% Movements of the time, requires Min Ax1 05%, typically with positioning of knees or feet, or getting up into quad from prone Wheelchair Management Type of Wheelchair Manual w/c Assessment Details Unable to perform tilt back to get over curb. Able to clear 2 obstacle 90% of the time. PT-OP-H Neuro Start: 03/08/22 17:00 Freq: Status: Active Protocol: Document 10/20/24 15:20 DCW (Rec: 10/20/24 16:01 DCW [id number]) Sensation Evaluation Gross Sensation Gross Sensation Left LE Impaired,Right LE Impaired,Trunk Impaired Sensation Paresthesia,Numbness,Tingling,Pins & [place],Burning Description Dermatome L1,L2,L3,L4,L5,S1,S2,S3,S4-5 Impairments Location Details Right Leg Light Touch Impaired Sharp/Dull Impaired Deep Pressure Intact/Normal Hot/Cold Absent Protective Sensation Absent Proprioception ( Impaired Position) Kinesthesia ( Impaired Movement) Two-Point Impaired Discrimination Tactile Localization Impaired Stereognosis Impaired Left Leg Light Touch Absent Sharp/Dull Absent Deep Pressure Impaired Hot/Cold Impaired Protective Sensation Absent Proprioception ( Absent Position) Kinesthesia ( Impaired Movement) Two-Point Absent Discrimination Tactile Localization Absent Stereognosis Absent Comments Summary Comments B protective reflex vs sharp present Deep Tendon Reflex & Clonus Assessment Deep Tendon Reflex Right Achilles Deep Tendon Reflex 2+ Normal Right Patellar Deep Tendon Reflex 2+ Normal Left Achilles Deep Tendon Reflex 2+ Normal Left Patellar Deep Tendon Reflex 1+ Diminished Ankle Clonus Right Clonus Assessment Sustained Left Clonus Assessment Sustained Muscle Tone Tone Assessment Right Lower Extremity Flexor Tone Moderate Hypertonicity Description Extensor Tone Moderate Hypertonicity Description Left Lower Extremity Flexor Tone Moderate Hypertonicity Description Extensor Tone Moderate Hypertonicity Description PT-OP-J Posture/Palpation/Skin Start: 03/08/22 17:00 Freq: Status: Active Protocol: Document 10/20/24 15:20 DCW (Rec: 10/20/24 16:01 [facility] [id number]) Posture Evaluation Comments Posture Comments Sitting EOB with good core control and no instability, uses UEs in lap for support. Recovers from directional pushing. Improved ability to reach outside of base of support. PT-OP-M Strength Start: 08/21/22 15:38 Freq: Status: Active Protocol: Document 10/20/24 15:20 DCW (Rec: 10/20/24 16:01 [facility] [id number]) Shoulder Strength Shoulder Manual Muscle Testing Right Flexion 4+ Good+ Extension 4+ Good+ Abduction (C5) 4+ Good+ External Rotation 4 Good Internal Rotation 4+ Good+ Left Flexion 4+ Good+ Extension 4+ Good+ Abduction (C5) 4+ Good+ External Rotation 4 Good Internal Rotation 4+ Good+ Elbow/Forearm Strength Elbow and Forearm Manual Muscle Testing Right Flexion (C6) 4+ Good+ Extension (C7) 4+ Good+ Left Flexion (C6) 4+ Good+ Extension (C7) 4 Good Hip Strength Hip Manual Muscle Testing Right Flexion (L2) 1 Trace Extension (S1) 2- Poor- Adduction 2- Poor- Left Flexion (L2) 1 Trace Extension (S1) 2- Poor- Adduction 1 Trace Knee Strength Knee Manual Muscle Testing Right Flexion (S2) 2- Poor- Extension (L3) 1 Trace Left Flexion (S2) 2- Poor- Extension (L3) 1 Trace Ankle/Foot Strength Ankle and Foot Manual Muscle Testing Right Dorsiflexion (L4) 1 Trace Plantarflexion (S1) 2 Poor Left Plantarflexion (S1) 1 Trace PT-OP-Q Treatments Start: 03/08/22 17:00 Freq: Status: Active Protocol: Document 11/09/24 13:04 NBM (Rec: 11/09/24 17:43 [facility] Laptop) Gym Equipment Cable Column (Body Solid) lateral pulldown Details Lat Pulldown Reps/Time 70# 2x10, 75# x10 Therapeutic Exercises Sitting Exercises row Sitting Exercise edge of w/c, feet on floor for core strengthening Name Resistance Jose Level 5 Equipment Used EXTRUDING PRESS ADJUSTER light assist at B shoulders for maintaining upright posture Reps/Minutes 3 x10 Comments cues for breathwork, initial tactile cues for scapular retraction. Therapeutic Activity Therapeutic Activity Wheelchair Mobility Comments 1.balancing on shortened w/c tips (returned to position following activity) -finding balance point between neutral and wheelchair tips while sustaining balance w/ minimal a/p movement 2.fwd mobility up on to 3 mat 10 ft x6, 4/6 success 8 ft x5 4/5 6 ft x5 3/5 4 ft x3 2/3 -w/c tips returned to original position following activity PT-OP-T Assessment and Plan Start: 03/08/22 17:00 Freq: Status: Active Protocol: Document 11/09/24 13:04 [facility] (Rec: 11/09/24 17:43 [facility] Laptop) Physical Therapy Assessment Assessment Summary Assessment Toby is able to progress to 75# on lateral pulldown w/ one cue for breathholding today. He is able to perform wheelies onto 3 mat with progressively shorter distances today from 10 ft to 4 ft. Physical Therapy Plan Frequency and Duration Frequency of 2x/Week Treatment Plan of Care Start 10/20/24 Date Plan of Care End 01/18/25 Date Therapeutic Interventions Therapeutic Aquatic Therapy,Balance Training,Coordination Training, Interventions Gait Training,Home Exercise Program,Manual Therapy, Neuromuscular Re-education,Orthotic/Prosthetic Management,Patient/Caregiver Education,Self-Care/Home Management,Sensory Integration,Soft Tissue Mobilization ,Therapeutic Activities,Therapeutic Exercises, Wheelchair Management Next Visit Focus/Plan Next Note Type Treatment Note Next Visit Plan Next: core progression in hooklying or quadruped. Consider side planks and supine>sidelying bed mobility focus. Continue PT per POC: Continue L log roll, L SL> quadruped, Lateral transfers to elevated surfaces more trunk flexion/frequent scoots decreased assist, Wheelchair wheelies, curb management, POC: Continue UE and core strengthening, LE PROM and manual stretching. Transfers, mobility, LE ROM, pt will benefit from continued breakdown of transfers to improve efficiency and mechanics, as well as working on more seated balance EOB.
--- NOTE | 2024-11-11 16:59 | PT.OTN ---
Current Diagnoses Paraplegia, unspecified (11/11/24) Other specified personal risk factors, not elsewhere classified (11/11/24) Other specified postprocedural states (11/11/24) Physical Therapy Treatment Note PT-OP-A Visit Information Start: 03/08/22 17:00 Freq: Status: Active Protocol: Document 11/11/24 16:15 DCW (Rec: 11/11/24 16:59 DCW [id number]) Out-Patient Physical Therapy Visit Information Visit Information Visit Type Treatment Note Visit Start Time 16:15 Visit Stop Time 17:00 Visit Number 243 Number of ARCADE GAME TECHNICIAN Visits 0 Evaluation Information Evaluation Date 03/08/22 PT-OP-B Current Condition Start: 03/08/22 17:00 Freq: Status: Active Protocol: Document 03/17/24 11:29 SAK (Rec: 03/17/24 12:23 SAK [id number]) Current Condition History of Current Condition Onset Date 12/16/21 Current Complaints Paraplegia History of Current Pt is a 71 year old male with a very unfortunate Condition medical history. Pt was hiking [place] on 12/16/21 with a friend, finished up, drive back to his friend's home to drop him off, and noticed his left leg was collapsing. By the time pt drove home, both legs were giving out and numb. Pt was suddenly paralized from the waist down, was taken to the ED, and was flown to [facility] on 12/17/21. The following day, he underwent a laminectomy to relieve pressure from the thoracic epidural hematoma which had developed following his hike, which was pressing on his spinal cord. Following surgery, pt was in recovery for a week and was then transfered to rehab for 20 days, when he was finally discharged home in a wheelchair on 01/19/22. Pt reports his surgeon informed him that it is a possibility that he gets some return of nerve function. Has experienced some changes in his right LE, but has no motor function at this time from ~T10 down. Minimal sensory return on right side, none on left. Pt has been anxious to get in to therapy and do everything he can to help return to function. Pt's , who attended his evaluation, notes that she has been doing a lot of PROM in his legs at night to keep everything moving. Pt can feel some stretching during PROM in his right leg. Pt has additionally already started occupational therapy, and has been practicing some seated stabilization. Pt transfers with a slide board, but notes it is difficult to do into his car, because he has to transfer upward at an incline. PT-OP-C Subjective Start: 03/08/22 17:00 Freq: Status: Active Protocol: Document 11/11/24 16:15 DCW (Rec: 11/11/24 16:59 DCW [id number]) OP-PT Subjective Patient Comments Patient Comments My legs have really been spasming a lot today. PT-OP-G Mobility & Gait Start: 03/08/22 17:00 Freq: Status: Active Protocol: Document 10/20/24 15:20 DCW (Rec: 10/20/24 16:01 DCW [id number]) OP Mobility Evaluation Transfers Bed to Chair Transfers using UE, improved with side-side movement, Transfers requires minimal verbal cues for LE positioning Car Transfers uses slide board, stabilizes front to back and prevent slide down board Functional Movements Other Functional Pt performs sit->supine->prone->quadruped with SBA 95% Movements of the time, requires Min Ax1 05%, typically with positioning of knees or feet, or getting up into quad from prone Wheelchair Management Type of Wheelchair Manual w/c Assessment Details Unable to perform tilt back to get over curb. Able to clear 2 obstacle 90% of the time. PT-OP-H Neuro Start: 03/08/22 17:00 Freq: Status: Active Protocol: Document 10/20/24 15:20 DCW (Rec: 10/20/24 16:01 DCW [id number]) Sensation Evaluation Gross Sensation Gross Sensation Left LE Impaired,Right LE Impaired,Trunk Impaired Sensation Paresthesia,Numbness,Tingling,Pins & [place],Burning Description Dermatome L1,L2,L3,L4,L5,S1,S2,S3,S4-5 Impairments Location Details Right Leg Light Touch Impaired Sharp/Dull Impaired Deep Pressure Intact/Normal Hot/Cold Absent Protective Sensation Absent Proprioception ( Impaired Position) Kinesthesia ( Impaired Movement) Two-Point Impaired Discrimination Tactile Localization Impaired Stereognosis Impaired Left Leg Light Touch Absent Sharp/Dull Absent Deep Pressure Impaired Hot/Cold Impaired Protective Sensation Absent Proprioception ( Absent Position) Kinesthesia ( Impaired Movement) Two-Point Absent Discrimination Tactile Localization Absent Stereognosis Absent Comments Summary Comments B protective reflex vs sharp present Deep Tendon Reflex & Clonus Assessment Deep Tendon Reflex Right Achilles Deep Tendon Reflex 2+ Normal Right Patellar Deep Tendon Reflex 2+ Normal Left Achilles Deep Tendon Reflex 2+ Normal Left Patellar Deep Tendon Reflex 1+ Diminished Ankle Clonus Right Clonus Assessment Sustained Left Clonus Assessment Sustained Muscle Tone Tone Assessment Right Lower Extremity Flexor Tone Moderate Hypertonicity Description Extensor Tone Moderate Hypertonicity Description Left Lower Extremity Flexor Tone Moderate Hypertonicity Description Extensor Tone Moderate Hypertonicity Description PT-OP-J Posture/Palpation/Skin Start: 03/08/22 17:00 Freq: Status: Active Protocol: Document 10/20/24 15:20 DCW (Rec: 10/20/24 16:01 [facility] [id number]) Posture Evaluation Comments Posture Comments Sitting EOB with good core control and no instability, uses UEs in lap for support. Recovers from directional pushing. Improved ability to reach outside of base of support. PT-OP-M Strength Start: 08/21/22 15:38 Freq: Status: Active Protocol: Document 10/20/24 15:20 DCW (Rec: 10/20/24 16:01 [facility] [id number]) Shoulder Strength Shoulder Manual Muscle Testing Right Flexion 4+ Good+ Extension 4+ Good+ Abduction (C5) 4+ Good+ External Rotation 4 Good Internal Rotation 4+ Good+ Left Flexion 4+ Good+ Extension 4+ Good+ Abduction (C5) 4+ Good+ External Rotation 4 Good Internal Rotation 4+ Good+ Elbow/Forearm Strength Elbow and Forearm Manual Muscle Testing Right Flexion (C6) 4+ Good+ Extension (C7) 4+ Good+ Left Flexion (C6) 4+ Good+ Extension (C7) 4 Good Hip Strength Hip Manual Muscle Testing Right Flexion (L2) 1 Trace Extension (S1) 2- Poor- Adduction 2- Poor- Left Flexion (L2) 1 Trace Extension (S1) 2- Poor- Adduction 1 Trace Knee Strength Knee Manual Muscle Testing Right Flexion (S2) 2- Poor- Extension (L3) 1 Trace Left Flexion (S2) 2- Poor- Extension (L3) 1 Trace Ankle/Foot Strength Ankle and Foot Manual Muscle Testing Right Dorsiflexion (L4) 1 Trace Plantarflexion (S1) 2 Poor Left Plantarflexion (S1) 1 Trace PT-OP-Q Treatments Start: 03/08/22 17:00 Freq: Status: Active Protocol: Document 11/11/24 16:15 DCW (Rec: 11/11/24 16:59 DCW [id number]) Cardio Equipment Recumbent Stepper (Sci-Fit) Duration (Minutes) 10 Resistance 8 Seat Position Seat 10, Handles 9 Other Nu-Step Therapeutic Exercises Prone Exercises prone over 4 pillows Prone Exercise Name supported trunk extension, hip flexor stretch Equipment Used over 4 pillows, towel roll under forehead Comments positive feedback response Other Exercises short kneel Other Exercise Name short kneeling /c self thigh support Reps/Minutes before and after sets of push-ups Thread the needle Other Exercise Name Thread the needle on forearms/knees Side bilateral Comments cues for max reach, head follows hand Push-ups Other Exercise Name Push-up in quadruped Reps/Minutes x25, x20, x15 PT-OP-T Assessment and Plan Start: 03/08/22 17:00 Freq: Status: Active Protocol: Document 11/11/24 16:15 DCW (Rec: 11/11/24 16:59 DCW [id number]) Physical Therapy Assessment Impairments Impairments Activity Tolerance,Balance,Coordination,Functional Activities,Functional Mobility,Gait,Integument, Sensation,Soft Tissue Mobility,Strength,Tone,Transfers Goals Four Impairment Bilateral triceps weakness (R 4-, L 3+) Intermediate Goal (LTG) Pt to demonstrate improved triceps strength to at least 4/5 bilaterally for elbow extension in order to improve transfer ability. LTG Duration 01/18/25 - Improving Three Impairment Pt does not have any motor function throughout bilateral LEs Short Term Goal (STG Pt to demonstrate 1/5 trace motor contraction in at ) least one quad in order to begin focus on LE mobility if neural functional return begins. STG Duration Met Intermediate Goal (LTG) Pt to demonstrate right quad strength to at least 2/5, demonstrating movement into ROM in an antigravity position LTG Duration 01/18/25 Two Impairment Pt struggles with lateral transfer/scooting along EOB Steward/Stewardess Tourist Class Goal (LTG) Pt to perform lateral scoot transfer using proper technique without any verbal cues 4x in a row. LTG Duration 01/18/25 One Impairment Pt does not have an appropriate home exercise program Short Term Goal (STG Pt to be independent and compliant with an appropriate ) HEP STG Duration 12/18/24 Assessment Summary Assessment Continues to do well with bed mobility, improving ability to get himself into quadruped. Focus on UE strengthening, balance, and w/c mobility. Physical Therapy Plan Frequency and Duration Frequency of 2x/Week Treatment Plan of Care Start 10/20/24 Date Plan of Care End 01/18/25 Date Therapeutic Interventions Therapeutic Aquatic Therapy,Balance Training,Coordination Training, Interventions Gait Training,Home Exercise Program,Manual Therapy, Neuromuscular Re-education,Orthotic/Prosthetic Management,Patient/Caregiver Education,Self-Care/Home Management,Sensory Integration,Soft Tissue Mobilization ,Therapeutic Activities,Therapeutic Exercises, Wheelchair Management Next Visit Focus/Plan Next Note Type Treatment Note Next Visit Plan Next: core progression in hooklying or quadruped. Consider side planks and supine>sidelying bed mobility focus. Continue PT per POC: Continue L log roll, L SL> quadruped, Lateral transfers to elevated surfaces more trunk flexion/frequent scoots decreased assist, Wheelchair wheelies, curb management, POC: Continue UE and core strengthening, LE PROM and manual stretching. Transfers, mobility, LE ROM, pt will benefit from continued breakdown of transfers to improve efficiency and mechanics, as well as working on more seated balance EOB.
--- NOTE | 2024-11-16 17:45 | PT.OTN ---
Current Diagnoses Paraplegia, unspecified (11/16/24) Other specified personal risk factors, not elsewhere classified (11/16/24) Other specified postprocedural states (11/16/24) Physical Therapy Treatment Note PT-OP-A Visit Information Start: 03/08/22 17:00 Freq: Status: Active Protocol: Document 11/16/24 17:03 DCW (Rec: 11/16/24 17:45 DCW [id number]) Out-Patient Physical Therapy Visit Information Visit Information Visit Type Treatment Note Visit Start Time 17:03 Visit Stop Time 17:45 Visit Number [id number] Number of AGRICULTURAL EDUCATION INSTRUCTOR Visits 0 Evaluation Information Evaluation Date 03/08/22 PT-OP-B Current Condition Start: 03/08/22 17:00 Freq: Status: Active Protocol: Document 03/17/24 11:29 SAK (Rec: 03/17/24 12:23 SAK [id number]) Current Condition History of Current Condition Onset Date 12/16/21 Current Complaints Paraplegia History of Current Pt is a 71 year old male with a very unfortunate Condition medical history. Pt was hiking [employer] on 12/16/21 with a friend, finished up, drive back to his friend's home to drop him off, and noticed his left leg was collapsing. By the time pt drove home, both legs were giving out and numb. Pt was suddenly paralized from the waist down, was taken to the ED, and was flown to [facility] on 12/17/21. The following day, he underwent a laminectomy to relieve pressure from the thoracic epidural hematoma which had developed following his hike, which was pressing on his spinal cord. Following surgery, pt was in recovery for a week and was then transfered to rehab for 20 days, when he was finally discharged home in a wheelchair on 01/19/22. Pt reports his surgeon informed him that it is a possibility that he gets some return of nerve function. Has experienced some changes in his right LE, but has no motor function at this time from ~T10 down. Minimal sensory return on right side, none on left. Pt has been anxious to get in to therapy and do everything he can to help return to function. Pt's , who attended his evaluation, notes that she has been doing a lot of PROM in his legs at night to keep everything moving. Pt can feel some stretching during PROM in his right leg. Pt has additionally already started occupational therapy, and has been practicing some seated stabilization. Pt transfers with a slide board, but notes it is difficult to do into his car, because he has to transfer upward at an incline. PT-OP-C Subjective Start: 03/08/22 17:00 Freq: Status: Active Protocol: Document 11/16/24 17:03 DCW (Rec: 11/16/24 17:45 DCW [id number]) OP-PT Subjective Patient Comments Patient Comments The right side of my body, especially the waist down.. .a lot of stuff is going on. Not so much motor control, but the sensation changes. PT-OP-G Mobility & Gait Start: 03/08/22 17:00 Freq: Status: Active Protocol: Document 10/20/24 15:20 DCW (Rec: 10/20/24 16:01 DCW [id number]) OP Mobility Evaluation Transfers Bed to Chair Transfers using UE, improved with side-side movement, Transfers requires minimal verbal cues for LE positioning Car Transfers uses slide board, stabilizes front to back and prevent slide down board Functional Movements Other Functional Pt performs sit->supine->prone->quadruped with SBA 95% Movements of the time, requires Min Ax1 05%, typically with positioning of knees or feet, or getting up into quad from prone Wheelchair Management Type of Wheelchair Manual w/c Assessment Details Unable to perform tilt back to get over curb. Able to clear 2 obstacle 90% of the time. PT-OP-H Neuro Start: 03/08/22 17:00 Freq: Status: Active Protocol: Document 10/20/24 15:20 DCW (Rec: 10/20/24 16:01 DCW [id number]) Sensation Evaluation Gross Sensation Gross Sensation Left LE Impaired,Right LE Impaired,Trunk Impaired Sensation Paresthesia,Numbness,Tingling,Pins & [place],Burning Description Dermatome L1,L2,L3,L4,L5,S1,S2,S3,S4-5 Impairments Location Details Right Leg Light Touch Impaired Sharp/Dull Impaired Deep Pressure Intact/Normal Hot/Cold Absent Protective Sensation Absent Proprioception ( Impaired Position) Kinesthesia ( Impaired Movement) Two-Point Impaired Discrimination Tactile Localization Impaired Stereognosis Impaired Left Leg Light Touch Absent Sharp/Dull Absent Deep Pressure Impaired Hot/Cold Impaired Protective Sensation Absent Proprioception ( Absent Position) Kinesthesia ( Impaired Movement) Two-Point Absent Discrimination Tactile Localization Absent Stereognosis Absent Comments Summary Comments B protective reflex vs sharp present Deep Tendon Reflex & Clonus Assessment Deep Tendon Reflex Right Achilles Deep Tendon Reflex 2+ Normal Right Patellar Deep Tendon Reflex 2+ Normal Left Achilles Deep Tendon Reflex 2+ Normal Left Patellar Deep Tendon Reflex 1+ Diminished Ankle Clonus Right Clonus Assessment Sustained Left Clonus Assessment Sustained Muscle Tone Tone Assessment Right Lower Extremity Flexor Tone Moderate Hypertonicity Description Extensor Tone Moderate Hypertonicity Description Left Lower Extremity Flexor Tone Moderate Hypertonicity Description Extensor Tone Moderate Hypertonicity Description PT-OP-J Posture/Palpation/Skin Start: 03/08/22 17:00 Freq: Status: Active Protocol: Document 10/20/24 15:20 DCW (Rec: 10/20/24 16:01 DCW [id number]) Posture Evaluation Comments Posture Comments Sitting EOB with good core control and no instability, uses UEs in lap for support. Recovers from directional pushing. Improved ability to reach outside of base of support. PT-OP-M Strength Start: 08/21/22 15:38 Freq: Status: Active Protocol: Document 10/20/24 15:20 DCW (Rec: 10/20/24 16:01 DCW [id number]) Shoulder Strength Shoulder Manual Muscle Testing Right Flexion 4+ Good+ Extension 4+ Good+ Abduction (C5) 4+ Good+ External Rotation 4 Good Internal Rotation 4+ Good+ Left Flexion 4+ Good+ Extension 4+ Good+ Abduction (C5) 4+ Good+ External Rotation 4 Good Internal Rotation 4+ Good+ Elbow/Forearm Strength Elbow and Forearm Manual Muscle Testing Right Flexion (C6) 4+ Good+ Extension (C7) 4+ Good+ Left Flexion (C6) 4+ Good+ Extension (C7) 4 Good Hip Strength Hip Manual Muscle Testing Right Flexion (L2) 1 Trace Extension (S1) 2- Poor- Adduction 2- Poor- Left Flexion (L2) 1 Trace Extension (S1) 2- Poor- Adduction 1 Trace Knee Strength Knee Manual Muscle Testing Right Flexion (S2) 2- Poor- Extension (L3) 1 Trace Left Flexion (S2) 2- Poor- Extension (L3) 1 Trace Ankle/Foot Strength Ankle and Foot Manual Muscle Testing Right Dorsiflexion (L4) 1 Trace Plantarflexion (S1) 2 Poor Left Plantarflexion (S1) 1 Trace PT-OP-Q Treatments Start: 03/08/22 17:00 Freq: Status: Active Protocol: Document 11/16/24 17:03 DCW (Rec: 11/16/24 17:45 DCW [id number]) Cardio Equipment Recumbent Stepper (Sci-Fit) Duration (Minutes) 10 Resistance 8 Seat Position Seat 10, Handles 9 Other Nu-Step Gym Equipment Cable Column (Body Solid) Bench Press Details Seated bench press - cables under axilla bilaterally, towel on handle Resistance 35# x11, x9 Reps/Time Height: 5 holes seen from bottom Triceps Details Seated Triceps Press Resistance 30# x7, x6, x5 Reps/Time Height: 13 holes seen from bottom cable row Details PT assist to maintain upright posture Resistance 45# Reps/Time x12, 2x10 lateral pulldown Details Lat Pulldown Resistance 75# Reps/Time x12, x8, x6 Therapeutic Exercises Sitting Exercises Bicep curls to overhead press Sitting Exercise Overhead Press Name Side bilateral Resistance 5# dumbbells Comments VCs to decrease speed PT-OP-T Assessment and Plan Start: 03/08/22 17:00 Freq: Status: Active Protocol: Document 11/16/24 17:03 DCW (Rec: 11/16/24 17:45 DCW [id number]) Physical Therapy Assessment Impairments Impairments Activity Tolerance,Balance,Coordination,Functional Activities,Functional Mobility,Gait,Integument, Sensation,Soft Tissue Mobility,Strength,Tone,Transfers Goals Four Impairment Bilateral triceps weakness (R 4-, L 3+) Detention Goal (LTG) Pt to demonstrate improved triceps strength to at least 4/5 bilaterally for elbow extension in order to improve transfer ability. LTG Duration 01/18/25 - Improving Three Impairment Pt does not have any motor function throughout bilateral LEs Short Term Goal (STG Pt to demonstrate 1/5 trace motor contraction in at ) least one quad in order to begin focus on LE mobility if neural functional return begins. STG Duration Met Specialist Physician Goal (LTG) Pt to demonstrate right quad strength to at least 2/5, demonstrating movement into ROM in an antigravity position LTG Duration 01/18/25 Two Impairment Pt struggles with lateral transfer/scooting along EOB Specialist Physician Goal (LTG) Pt to perform lateral scoot transfer using proper technique without any verbal cues 4x in a row. LTG Duration 01/18/25 One Impairment Pt does not have an appropriate home exercise program Short Term Goal (STG Pt to be independent and compliant with an appropriate ) HEP STG Duration 12/18/24 Assessment Summary Assessment Pt tolerated well, continues to see benefit from UE strengthening with increased ease of transfers. Physical Therapy Plan Frequency and Duration Frequency of 2x/Week Treatment Plan of Care Start 10/20/24 Date Plan of Care End 01/18/25 Date Therapeutic Interventions Therapeutic Aquatic Therapy,Balance Training,Coordination Training, Interventions Gait Training,Home Exercise Program,Manual Therapy, Neuromuscular Re-education,Orthotic/Prosthetic Management,Patient/Caregiver Education,Self-Care/Home Management,Sensory Integration,Soft Tissue Mobilization ,Therapeutic Activities,Therapeutic Exercises, Wheelchair Management Next Visit Focus/Plan Next Note Type Treatment Note Next Visit Plan Next: core progression in hooklying or quadruped. Consider side planks and supine>sidelying bed mobility focus. Continue PT per POC: Continue L log roll, L SL> quadruped, Lateral transfers to elevated surfaces more trunk flexion/frequent scoots decreased assist, Wheelchair wheelies, curb management, POC: Continue UE and core strengthening, LE PROM and manual stretching. Transfers, mobility, LE ROM, pt will benefit from continued breakdown of transfers to improve efficiency and mechanics, as well as working on more seated balance EOB.
--- NOTE | 2024-11-18 17:06 | PT.OTN ---
Current Diagnoses Paraplegia, unspecified (11/18/24) Other specified personal risk factors, not elsewhere classified (11/18/24) Other specified postprocedural states (11/18/24) Physical Therapy Treatment Note PT-OP-A Visit Information Start: 03/08/22 17:00 Freq: Status: Active Protocol: Document 11/18/24 16:19 DCW (Rec: 11/18/24 17:05 DCW [id number]) Out-Patient Physical Therapy Visit Information Visit Information Visit Type Treatment Note Visit Start Time 16:19 Visit Stop Time 17:00 Visit Number [id number] Number of JOB MOLDER Visits 0 Evaluation Information Evaluation Date 03/08/22 PT-OP-B Current Condition Start: 03/08/22 17:00 Freq: Status: Active Protocol: Document 03/17/24 11:29 SAK (Rec: 03/17/24 12:23 SAK [id number]) Current Condition History of Current Condition Onset Date 12/16/21 Current Complaints Paraplegia History of Current Pt is a 71 year old male with a very unfortunate Condition medical history. Pt was hiking [place] on 12/16/21 with a friend, finished up, drive back to his friend's home to drop him off, and noticed his left leg was collapsing. By the time pt drove home, both legs were giving out and numb. Pt was suddenly paralized from the waist down, was taken to the ED, and was flown to [facility] on 12/17/21. The following day, he underwent a laminectomy to relieve pressure from the thoracic epidural hematoma which had developed following his hike, which was pressing on his spinal cord. Following surgery, pt was in recovery for a week and was then transfered to rehab for 20 days, when he was finally discharged home in a wheelchair on 01/19/22. Pt reports his surgeon informed him that it is a possibility that he gets some return of nerve function. Has experienced some changes in his right LE, but has no motor function at this time from ~T10 down. Minimal sensory return on right side, none on left. Pt has been anxious to get in to therapy and do everything he can to help return to function. Pt's , who attended his evaluation, notes that she has been doing a lot of PROM in his legs at night to keep everything moving. Pt can feel some stretching during PROM in his right leg. Pt has additionally already started occupational therapy, and has been practicing some seated stabilization. Pt transfers with a slide board, but notes it is difficult to do into his car, because he has to transfer upward at an incline. PT-OP-C Subjective Start: 03/08/22 17:00 Freq: Status: Active Protocol: Document 11/18/24 16:19 DCW (Rec: 11/18/24 17:05 DCW [id number]) OP-PT Subjective Patient Comments Patient Comments Pt notes he is doing well overall, admits he is a little disappointed by how slow he makes progress. PT-OP-G Mobility & Gait Start: 03/08/22 17:00 Freq: Status: Active Protocol: Document 10/20/24 15:20 DCW (Rec: 10/20/24 16:01 DCW [id number]) OP Mobility Evaluation Transfers Bed to Chair Transfers using UE, improved with side-side movement, Transfers requires minimal verbal cues for LE positioning Car Transfers uses slide board, stabilizes front to back and prevent slide down board Functional Movements Other Functional Pt performs sit->supine->prone->quadruped with SBA 95% Movements of the time, requires Min Ax1 05%, typically with positioning of knees or feet, or getting up into quad from prone Wheelchair Management Type of Wheelchair Manual w/c Assessment Details Unable to perform tilt back to get over curb. Able to clear 2 obstacle 90% of the time. PT-OP-H Neuro Start: 03/08/22 17:00 Freq: Status: Active Protocol: Document 10/20/24 15:20 DCW (Rec: 10/20/24 16:01 DCW [id number]) Sensation Evaluation Gross Sensation Gross Sensation Left LE Impaired,Right LE Impaired,Trunk Impaired Sensation Paresthesia,Numbness,Tingling,Pins & [place],Burning Description Dermatome L1,L2,L3,L4,L5,S1,S2,S3,S4-5 Impairments Location Details Right Leg Light Touch Impaired Sharp/Dull Impaired Deep Pressure Intact/Normal Hot/Cold Absent Protective Sensation Absent Proprioception ( Impaired Position) Kinesthesia ( Impaired Movement) Two-Point Impaired Discrimination Tactile Localization Impaired Stereognosis Impaired Left Leg Light Touch Absent Sharp/Dull Absent Deep Pressure Impaired Hot/Cold Impaired Protective Sensation Absent Proprioception ( Absent Position) Kinesthesia ( Impaired Movement) Two-Point Absent Discrimination Tactile Localization Absent Stereognosis Absent Comments Summary Comments B protective reflex vs sharp present Deep Tendon Reflex & Clonus Assessment Deep Tendon Reflex Right Achilles Deep Tendon Reflex 2+ Normal Right Patellar Deep Tendon Reflex 2+ Normal Left Achilles Deep Tendon Reflex 2+ Normal Left Patellar Deep Tendon Reflex 1+ Diminished Ankle Clonus Right Clonus Assessment Sustained Left Clonus Assessment Sustained Muscle Tone Tone Assessment Right Lower Extremity Flexor Tone Moderate Hypertonicity Description Extensor Tone Moderate Hypertonicity Description Left Lower Extremity Flexor Tone Moderate Hypertonicity Description Extensor Tone Moderate Hypertonicity Description PT-OP-J Posture/Palpation/Skin Start: 03/08/22 17:00 Freq: Status: Active Protocol: Document 10/20/24 15:20 DCW (Rec: 10/20/24 16:01 DCW [id number]) Posture Evaluation Comments Posture Comments Sitting EOB with good core control and no instability, uses UEs in lap for support. Recovers from directional pushing. Improved ability to reach outside of base of support. PT-OP-M Strength Start: 08/21/22 15:38 Freq: Status: Active Protocol: Document 10/20/24 15:20 DCW (Rec: 10/20/24 16:01 DC [id number]) Shoulder Strength Shoulder Manual Muscle Testing Right Flexion 4+ Good+ Extension 4+ Good+ Abduction (C5) 4+ Good+ External Rotation 4 Good Internal Rotation 4+ Good+ Left Flexion 4+ Good+ Extension 4+ Good+ Abduction (C5) 4+ Good+ External Rotation 4 Good Internal Rotation 4+ Good+ Elbow/Forearm Strength Elbow and Forearm Manual Muscle Testing Right Flexion (C6) 4+ Good+ Extension (C7) 4+ Good+ Left Flexion (C6) 4+ Good+ Extension (C7) 4 Good Hip Strength Hip Manual Muscle Testing Right Flexion (L2) 1 Trace Extension (S1) 2- Poor- Adduction 2- Poor- Left Flexion (L2) 1 Trace Extension (S1) 2- Poor- Adduction 1 Trace Knee Strength Knee Manual Muscle Testing Right Flexion (S2) 2- Poor- Extension (L3) 1 Trace Left Flexion (S2) 2- Poor- Extension (L3) 1 Trace Ankle/Foot Strength Ankle and Foot Manual Muscle Testing Right Dorsiflexion (L4) 1 Trace Plantarflexion (S1) 2 Poor Left Plantarflexion (S1) 1 Trace PT-OP-Q Treatments Start: 03/08/22 17:00 Freq: Status: Active Protocol: Document 11/18/24 16:19 DCW (Rec: 11/18/24 17:05 DCW [id number]) Cardio Equipment Recumbent Stepper (Sci-Fit) Duration (Minutes) 10 Resistance 8 Seat Position Seat 10, Handles 9 Other Nu-Step Therapeutic Exercises Prone Exercises prone over 4 pillows Prone Exercise Name supported trunk extension, hip flexor stretch Equipment Used over 4 pillows, towel roll under forehead Other Exercises short kneel Other Exercise Name short kneeling /c self thigh support Reps/Minutes before and after sets of push-ups Thread the needle Other Exercise Name Thread the needle on forearms/knees Side bilateral Comments cues for max reach, head follows hand Push-ups Other Exercise Name Push-up in quadruped Reps/Minutes x30, x15, x15 PT-OP-T Assessment and Plan Start: 03/08/22 17:00 Freq: Status: Active Protocol: Document 11/18/24 16:19 DCW (Rec: 11/18/24 17:05 DCW [id number]) Physical Therapy Assessment Impairments Impairments Activity Tolerance,Balance,Coordination,Functional Activities,Functional Mobility,Gait,Integument, Sensation,Soft Tissue Mobility,Strength,Tone,Transfers Goals Four Impairment Bilateral triceps weakness (R 4-, L 3+) Computer System Specialist Goal (LTG) Pt to demonstrate improved triceps strength to at least 4/5 bilaterally for elbow extension in order to improve transfer ability. LTG Duration 01/18/25 - Improving Three Impairment Pt does not have any motor function throughout bilateral LEs Short Term Goal (STG Pt to demonstrate 1/5 trace motor contraction in at ) least one quad in order to begin focus on LE mobility if neural functional return begins. STG Duration Met Computer System Specialist Goal (LTG) Pt to demonstrate right quad strength to at least 2/5, demonstrating movement into ROM in an antigravity position LTG Duration 01/18/25 Two Impairment Pt struggles with lateral transfer/scooting along EOB Fci Goal (LTG) Pt to perform lateral scoot transfer using proper technique without any verbal cues 4x in a row. LTG Duration 01/18/25 One Impairment Pt does not have an appropriate home exercise program Short Term Goal (STG Pt to be independent and compliant with an appropriate ) HEP STG Duration 12/18/24 Assessment Summary Assessment Good response to treatment, continues to do well with transfers. Focus on UE strengthening and transfers. Physical Therapy Plan Frequency and Duration Frequency of 2x/Week Treatment Plan of Care Start 10/20/24 Date Plan of Care End 01/18/25 Date Therapeutic Interventions Therapeutic Aquatic Therapy,Balance Training,Coordination Training, Interventions Gait Training,Home Exercise Program,Manual Therapy, Neuromuscular Re-education,Orthotic/Prosthetic Management,Patient/Caregiver Education,Self-Care/Home Management,Sensory Integration,Soft Tissue Mobilization ,Therapeutic Activities,Therapeutic Exercises, Wheelchair Management Next Visit Focus/Plan Next Note Type Treatment Note Next Visit Plan Next: core progression in hooklying or quadruped. Consider side planks and supine>sidelying bed mobility focus. Continue PT per POC: Continue L log roll, L SL> quadruped, Lateral transfers to elevated surfaces more trunk flexion/frequent scoots decreased assist, Wheelchair wheelies, curb management, POC: Continue UE and core strengthening, LE PROM and manual stretching. Transfers, mobility, LE ROM, pt will benefit from continued breakdown of transfers to improve efficiency and mechanics, as well as working on more seated balance EOB.
--- NOTE | 2024-11-18 17:06 | PT.OTN ---
Current Diagnoses Paraplegia, unspecified (11/18/24) Other specified personal risk factors, not elsewhere classified (11/18/24) Other specified postprocedural states (11/18/24) Physical Therapy Treatment Note PT-OP-A Visit Information Start: 03/08/22 17:00 Freq: Status: Active Protocol: Document 11/18/24 16:19 DCW (Rec: 11/18/24 17:05 DCW [id number]) Out-Patient Physical Therapy Visit Information Visit Information Visit Type Treatment Note Visit Start Time 16:19 Visit Stop Time 17:00 Visit Number [id number] Number of ASSEMBLER MUSICAL INSTRUMENTS Visits 0 Evaluation Information Evaluation Date 03/08/22 PT-OP-B Current Condition Start: 03/08/22 17:00 Freq: Status: Active Protocol: Document 03/17/24 11:29 SAK (Rec: 03/17/24 12:23 SAK [id number]) Current Condition History of Current Condition Onset Date 12/16/21 Current Complaints Paraplegia History of Current Pt is a 71 year old male with a very unfortunate Condition medical history. Pt was hiking [employer] on 12/16/21 with a friend, finished up, drive back to his friend's home to drop him off, and noticed his left leg was collapsing. By the time pt drove home, both legs were giving out and numb. Pt was suddenly paralized from the waist down, was taken to the ED, and was flown to [facility] on 12/17/21. The following day, he underwent a laminectomy to relieve pressure from the thoracic epidural hematoma which had developed following his hike, which was pressing on his spinal cord. Following surgery, pt was in recovery for a week and was then transfered to rehab for 20 days, when he was finally discharged home in a wheelchair on 01/19/22. Pt reports his surgeon informed him that it is a possibility that he gets some return of nerve function. Has experienced some changes in his right LE, but has no motor function at this time from ~T10 down. Minimal sensory return on right side, none on left. Pt has been anxious to get in to therapy and do everything he can to help return to function. Pt's , who attended his evaluation, notes that she has been doing a lot of PROM in his legs at night to keep everything moving. Pt can feel some stretching during PROM in his right leg. Pt has additionally already started occupational therapy, and has been practicing some seated stabilization. Pt transfers with a slide board, but notes it is difficult to do into his car, because he has to transfer upward at an incline. PT-OP-C Subjective Start: 03/08/22 17:00 Freq: Status: Active Protocol: Document 11/18/24 16:19 DCW (Rec: 11/18/24 17:05 DCW [id number]) OP-PT Subjective Patient Comments Patient Comments Pt notes he is doing well overall, admits he is a little disappointed by how slow he makes progress. PT-OP-G Mobility & Gait Start: 03/08/22 17:00 Freq: Status: Active Protocol: Document 10/20/24 15:20 DCW (Rec: 10/20/24 16:01 DCW [id number]) OP Mobility Evaluation Transfers Bed to Chair Transfers using UE, improved with side-side movement, Transfers requires minimal verbal cues for LE positioning Car Transfers uses slide board, stabilizes front to back and prevent slide down board Functional Movements Other Functional Pt performs sit->supine->prone->quadruped with SBA 95% Movements of the time, requires Min Ax1 05%, typically with positioning of knees or feet, or getting up into quad from prone Wheelchair Management Type of Wheelchair Manual w/c Assessment Details Unable to perform tilt back to get over curb. Able to clear 2 obstacle 90% of the time. PT-OP-H Neuro Start: 03/08/22 17:00 Freq: Status: Active Protocol: Document 10/20/24 15:20 DCW (Rec: 10/20/24 16:01 DCW [id number]) Sensation Evaluation Gross Sensation Gross Sensation Left LE Impaired,Right LE Impaired,Trunk Impaired Sensation Paresthesia,Numbness,Tingling,Pins & [place],Burning Description Dermatome L1,L2,L3,L4,L5,S1,S2,S3,S4-5 Impairments Location Details Right Leg Light Touch Impaired Sharp/Dull Impaired Deep Pressure Intact/Normal Hot/Cold Absent Protective Sensation Absent Proprioception ( Impaired Position) Kinesthesia ( Impaired Movement) Two-Point Impaired Discrimination Tactile Localization Impaired Stereognosis Impaired Left Leg Light Touch Absent Sharp/Dull Absent Deep Pressure Impaired Hot/Cold Impaired Protective Sensation Absent Proprioception ( Absent Position) Kinesthesia ( Impaired Movement) Two-Point Absent Discrimination Tactile Localization Absent Stereognosis Absent Comments Summary Comments B protective reflex vs sharp present Deep Tendon Reflex & Clonus Assessment Deep Tendon Reflex Right Achilles Deep Tendon Reflex 2+ Normal Right Patellar Deep Tendon Reflex 2+ Normal Left Achilles Deep Tendon Reflex 2+ Normal Left Patellar Deep Tendon Reflex 1+ Diminished Ankle Clonus Right Clonus Assessment Sustained Left Clonus Assessment Sustained Muscle Tone Tone Assessment Right Lower Extremity Flexor Tone Moderate Hypertonicity Description Extensor Tone Moderate Hypertonicity Description Left Lower Extremity Flexor Tone Moderate Hypertonicity Description Extensor Tone Moderate Hypertonicity Description PT-OP-J Posture/Palpation/Skin Start: 03/08/22 17:00 Freq: Status: Active Protocol: Document 10/20/24 15:20 DCW (Rec: 10/20/24 16:01 DCW [id number]) Posture Evaluation Comments Posture Comments Sitting EOB with good core control and no instability, uses UEs in lap for support. Recovers from directional pushing. Improved ability to reach outside of base of support. PT-OP-M Strength Start: 08/21/22 15:38 Freq: Status: Active Protocol: Document 10/20/24 15:20 DCW (Rec: 10/20/24 16:01 DC [id number]) Shoulder Strength Shoulder Manual Muscle Testing Right Flexion 4+ Good+ Extension 4+ Good+ Abduction (C5) 4+ Good+ External Rotation 4 Good Internal Rotation 4+ Good+ Left Flexion 4+ Good+ Extension 4+ Good+ Abduction (C5) 4+ Good+ External Rotation 4 Good Internal Rotation 4+ Good+ Elbow/Forearm Strength Elbow and Forearm Manual Muscle Testing Right Flexion (C6) 4+ Good+ Extension (C7) 4+ Good+ Left Flexion (C6) 4+ Good+ Extension (C7) 4 Good Hip Strength Hip Manual Muscle Testing Right Flexion (L2) 1 Trace Extension (S1) 2- Poor- Adduction 2- Poor- Left Flexion (L2) 1 Trace Extension (S1) 2- Poor- Adduction 1 Trace Knee Strength Knee Manual Muscle Testing Right Flexion (S2) 2- Poor- Extension (L3) 1 Trace Left Flexion (S2) 2- Poor- Extension (L3) 1 Trace Ankle/Foot Strength Ankle and Foot Manual Muscle Testing Right Dorsiflexion (L4) 1 Trace Plantarflexion (S1) 2 Poor Left Plantarflexion (S1) 1 Trace PT-OP-Q Treatments Start: 03/08/22 17:00 Freq: Status: Active Protocol: Document 11/18/24 16:19 DCW (Rec: 11/18/24 17:05 DCW [id number]) Cardio Equipment Recumbent Stepper (Sci-Fit) Duration (Minutes) 10 Resistance 8 Seat Position Seat 10, Handles 9 Other Nu-Step Therapeutic Exercises Prone Exercises prone over 4 pillows Prone Exercise Name supported trunk extension, hip flexor stretch Equipment Used over 4 pillows, towel roll under forehead Other Exercises short kneel Other Exercise Name short kneeling /c self thigh support Reps/Minutes before and after sets of push-ups Thread the needle Other Exercise Name Thread the needle on forearms/knees Side bilateral Comments cues for max reach, head follows hand Push-ups Other Exercise Name Push-up in quadruped Reps/Minutes x30, x15, x15 PT-OP-T Assessment and Plan Start: 03/08/22 17:00 Freq: Status: Active Protocol: Document 11/18/24 16:19 DCW (Rec: 11/18/24 17:05 DCW [id number]) Physical Therapy Assessment Impairments Impairments Activity Tolerance,Balance,Coordination,Functional Activities,Functional Mobility,Gait,Integument, Sensation,Soft Tissue Mobility,Strength,Tone,Transfers Goals Four Impairment Bilateral triceps weakness (R 4-, L 3+) Drill Runner Goal (LTG) Pt to demonstrate improved triceps strength to at least 4/5 bilaterally for elbow extension in order to improve transfer ability. LTG Duration 01/18/25 - Improving Three Impairment Pt does not have any motor function throughout bilateral LEs Short Term Goal (STG Pt to demonstrate 1/5 trace motor contraction in at ) least one quad in order to begin focus on LE mobility if neural functional return begins. STG Duration Met Drill Runner Goal (LTG) Pt to demonstrate right quad strength to at least 2/5, demonstrating movement into ROM in an antigravity position LTG Duration 01/18/25 Two Impairment Pt struggles with lateral transfer/scooting along EOB Fci Goal (LTG) Pt to perform lateral scoot transfer using proper technique without any verbal cues 4x in a row. LTG Duration 01/18/25 One Impairment Pt does not have an appropriate home exercise program Short Term Goal (STG Pt to be independent and compliant with an appropriate ) HEP STG Duration 12/18/24 Assessment Summary Assessment Good response to treatment, continues to do well with transfers. Focus on UE strengthening and transfers. Physical Therapy Plan Frequency and Duration Frequency of 2x/Week Treatment Plan of Care Start 10/20/24 Date Plan of Care End 01/18/25 Date Therapeutic Interventions Therapeutic Aquatic Therapy,Balance Training,Coordination Training, Interventions Gait Training,Home Exercise Program,Manual Therapy, Neuromuscular Re-education,Orthotic/Prosthetic Management,Patient/Caregiver Education,Self-Care/Home Management,Sensory Integration,Soft Tissue Mobilization ,Therapeutic Activities,Therapeutic Exercises, Wheelchair Management Next Visit Focus/Plan Next Note Type Treatment Note Next Visit Plan Next: core progression in hooklying or quadruped. Consider side planks and supine>sidelying bed mobility focus. Continue PT per POC: Continue L log roll, L SL> quadruped, Lateral transfers to elevated surfaces more trunk flexion/frequent scoots decreased assist, Wheelchair wheelies, curb management, POC: Continue UE and core strengthening, LE PROM and manual stretching. Transfers, mobility, LE ROM, pt will benefit from continued breakdown of transfers to improve efficiency and mechanics, as well as working on more seated balance EOB.
--- NOTE | 2024-11-25 15:30 | PT.OTN ---
Current Diagnoses Paraplegia, unspecified (11/25/24) Other specified personal risk factors, not elsewhere classified (11/25/24) Other specified postprocedural states (11/25/24) Physical Therapy Treatment Note PT-OP-A Visit Information Start: 03/08/22 17:00 Freq: Status: Active Protocol: Document 11/25/24 12:14 NBM (Rec: 11/25/24 15:27 NBM Laptop) Out-Patient Physical Therapy Visit Information Visit Information Visit Type Treatment Note Visit Note w/c tip positioning: baseline: 3rd hold from top reclining on w/c tips: 4th hole from top w/c mobility onto 3 mat: 2nd hole from top -tips returned to baseline end of session Visit Start Time 12:20 Visit Stop Time 13:08 Visit Number [id number] Number of MUSIC INDUSTRY INTERNSHIP Visits 1 Evaluation Information Evaluation Date 03/08/22 PT-OP-B Current Condition Start: 03/08/22 17:00 Freq: Status: Active Protocol: Document 03/17/24 11:29 SAK (Rec: 03/17/24 12:23 SAK [id number]) Current Condition History of Current Condition Onset Date 12/16/21 Current Complaints Paraplegia History of Current Pt is a 71 year old male with a very unfortunate Condition medical history. Pt was hiking [employer] on 12/16/21 with a friend, finished up, drive back to his friend's home to drop him off, and noticed his left leg was collapsing. By the time pt drove home, both legs were giving out and numb. Pt was suddenly paralized from the waist down, was taken to the ED, and was flown to [facility] on 12/17/21. The following day, he underwent a laminectomy to relieve pressure from the thoracic epidural hematoma which had developed following his hike, which was pressing on his spinal cord. Following surgery, pt was in recovery for a week and was then transfered to rehab for 20 days, when he was finally discharged home in a wheelchair on 01/19/22. Pt reports his surgeon informed him that it is a possibility that he gets some return of nerve function. Has experienced some changes in his right LE, but has no motor function at this time from ~T10 down. Minimal sensory return on right side, none on left. Pt has been anxious to get in to therapy and do everything he can to help return to function. Pt's , who attended his evaluation, notes that she has been doing a lot of PROM in his legs at night to keep everything moving. Pt can feel some stretching during PROM in his right leg. Pt has additionally already started occupational therapy, and has been practicing some seated stabilization. Pt transfers with a slide board, but notes it is difficult to do into his car, because he has to transfer upward at an incline. PT-OP-C Subjective Start: 03/08/22 17:00 Freq: Status: Active Protocol: Document 11/25/24 12:14 NBM (Rec: 11/25/24 15:27 NBM Laptop) OP-PT Subjective Patient Comments Patient Comments Toby reports he is apprehensive to try reclining on wheelchair tips. He gets frustrated with the slow recovery but understands he has to be realistic. He hesitates to use gym because he thinks his spouse would need to accompany and help him. PT-OP-G Mobility & Gait Start: 03/08/22 17:00 Freq: Status: Active Protocol: Document 10/20/24 15:20 DCW (Rec: 10/20/24 16:01 DCW [id number]) OP Mobility Evaluation Transfers Bed to Chair Transfers using UE, improved with side-side movement, Transfers requires minimal verbal cues for LE positioning Car Transfers uses slide board, stabilizes front to back and prevent slide down board Functional Movements Other Functional Pt performs sit->supine->prone->quadruped with SBA 95% Movements of the time, requires Min Ax1 05%, typically with positioning of knees or feet, or getting up into quad from prone Wheelchair Management Type of Wheelchair Manual w/c Assessment Details Unable to perform tilt back to get over curb. Able to clear 2 obstacle 90% of the time. PT-OP-H Neuro Start: 03/08/22 17:00 Freq: Status: Active Protocol: Document 10/20/24 15:20 DCW (Rec: 10/20/24 16:01 DCW [id number]) Sensation Evaluation Gross Sensation Gross Sensation Left LE Impaired,Right LE Impaired,Trunk Impaired Sensation Paresthesia,Numbness,Tingling,Pins & [place],Burning Description Dermatome L1,L2,L3,L4,L5,S1,S2,S3,S4-5 Impairments Location Details Right Leg Light Touch Impaired Sharp/Dull Impaired Deep Pressure Intact/Normal Hot/Cold Absent Protective Sensation Absent Proprioception ( Impaired Position) Kinesthesia ( Impaired Movement) Two-Point Impaired Discrimination Tactile Localization Impaired Stereognosis Impaired Left Leg Light Touch Absent Sharp/Dull Absent Deep Pressure Impaired Hot/Cold Impaired Protective Sensation Absent Proprioception ( Absent Position) Kinesthesia ( Impaired Movement) Two-Point Absent Discrimination Tactile Localization Absent Stereognosis Absent Comments Summary Comments B protective reflex vs sharp present Deep Tendon Reflex & Clonus Assessment Deep Tendon Reflex Right Achilles Deep Tendon Reflex 2+ Normal Right Patellar Deep Tendon Reflex 2+ Normal Left Achilles Deep Tendon Reflex 2+ Normal Left Patellar Deep Tendon Reflex 1+ Diminished Ankle Clonus Right Clonus Assessment Sustained Left Clonus Assessment Sustained Muscle Tone Tone Assessment Right Lower Extremity Flexor Tone Moderate Hypertonicity Description Extensor Tone Moderate Hypertonicity Description Left Lower Extremity Flexor Tone Moderate Hypertonicity Description Extensor Tone Moderate Hypertonicity Description PT-OP-J Posture/Palpation/Skin Start: 03/08/22 17:00 Freq: Status: Active Protocol: Document 10/20/24 15:20 DCW (Rec: 10/20/24 16:01 DCW [id number]) Posture Evaluation Comments Posture Comments Sitting EOB with good core control and no instability, uses UEs in lap for support. Recovers from directional pushing. Improved ability to reach outside of base of support. PT-OP-M Strength Start: 08/21/22 15:38 Freq: Status: Active Protocol: Document 10/20/24 15:20 DCW (Rec: 10/20/24 16:01 DCW [id number]) Shoulder Strength Shoulder Manual Muscle Testing Right Flexion 4+ Good+ Extension 4+ Good+ Abduction (C5) 4+ Good+ External Rotation 4 Good Internal Rotation 4+ Good+ Left Flexion 4+ Good+ Extension 4+ Good+ Abduction (C5) 4+ Good+ External Rotation 4 Good Internal Rotation 4+ Good+ Elbow/Forearm Strength Elbow and Forearm Manual Muscle Testing Right Flexion (C6) 4+ Good+ Extension (C7) 4+ Good+ Left Flexion (C6) 4+ Good+ Extension (C7) 4 Good Hip Strength Hip Manual Muscle Testing Right Flexion (L2) 1 Trace Extension (S1) 2- Poor- Adduction 2- Poor- Left Flexion (L2) 1 Trace Extension (S1) 2- Poor- Adduction 1 Trace Knee Strength Knee Manual Muscle Testing Right Flexion (S2) 2- Poor- Extension (L3) 1 Trace Left Flexion (S2) 2- Poor- Extension (L3) 1 Trace Ankle/Foot Strength Ankle and Foot Manual Muscle Testing Right Dorsiflexion (L4) 1 Trace Plantarflexion (S1) 2 Poor Left Plantarflexion (S1) 1 Trace PT-OP-Q Treatments Start: 03/08/22 17:00 Freq: Status: Active Protocol: Document 11/25/24 12:14 NBM (Rec: 11/25/24 15:27 NBM Laptop) Cardio Equipment Recumbent Stepper (Sci-Fit) Duration (Minutes) 9 Resistance 8 Seat Position Seat 10, Handles 9 Other Nu-Step, cues for 55-60 RPMs Gym Equipment Cable Column (Body Solid) cable row Details [employer] assist to maintain upright posture Resistance 45# Reps/Time 2x10 w/ fwd flex stretch hold 10sec, occ vc for breath lateral pulldown Details Lat Pulldown Resistance 75# Reps/Time 3 x10, occ vc for breath Therapeutic Activity Therapeutic Activity Wheelchair Mobility Comments 1.balancing on shortened w/c tips (returned to position following activity) -finding balance point between neutral and wheelchair tips while sustaining balance w/ minimal a/p movement x3 2.fwd mobility up on to 3 mat 8 ft x5, 4/5 success onto mat and one post LOB backing w/c off mat - pt able to identify and correct trunk weightshift with next attempt -w/c tips returned to original position following activity squat/lateral scoot transfer Name squat pivot transfer Reps/Minutes x1 ea Comments w/c<>Nu-Step. close SBA>CGA. Self-Care/Home Management Treatment Education Patient Education Home Exercise Program,Safety Other Education -Discussion w/ pt regarding checking with gym for use of personal trainers instead of spouse for access to equipment as needed - pt expresses understanding and plans to check before next PT appointment. -Pt provided reference note for wheelchair tip positioning: baseline: 3rd hold from top reclining on w/c tips: 4th hole from top w/c mobility onto 3 mat: 2nd hole from top PT-OP-T Assessment and Plan Start: 03/08/22 17:00 Freq: Status: Active Protocol: Document 11/25/24 12:14 NBM (Rec: 11/25/24 15:27 NBM Laptop) Physical Therapy Assessment Impairments Impairments Activity Tolerance,Balance,Coordination,Functional Activities,Functional Mobility,Gait,Integument, Sensation,Soft Tissue Mobility,Strength,Tone,Transfers Goals Four Impairment Bilateral triceps weakness (R 4-, L 3+) Custodial Goal (LTG) Pt to demonstrate improved triceps strength to at least 4/5 bilaterally for elbow extension in order to improve transfer ability. LTG Duration 01/18/25 - Improving Three Impairment Pt does not have any motor function throughout bilateral LEs Short Term Goal (STG Pt to demonstrate 1/5 trace motor contraction in at ) least one quad in order to begin focus on LE mobility if neural functional return begins. STG Duration Met Quarry Supervisor Dimension Stone Goal (LTG) Pt to demonstrate right quad strength to at least 2/5, demonstrating movement into ROM in an antigravity position LTG Duration 01/18/25 Two Impairment Pt struggles with lateral transfer/scooting along EOB Custodial Goal (LTG) Pt to perform lateral scoot transfer using proper technique without any verbal cues 4x in a row. LTG Duration 01/18/25 One Impairment Pt does not have an appropriate home exercise program Short Term Goal (STG Pt to be independent and compliant with an appropriate ) HEP STG Duration 12/18/24 Assessment Summary Assessment Thornton is able to perform fwd mobility up on to 3 mat 8 ft x5, 4/5 successful attempts onto mat and one post loss of balance requiring Derrek for balance recovery when backing wheelchair off mat - pt is able to identify and correct trunk weightshift with next attempt. Pt is able to demonstrate reclining on wheelchair tips and is provided reference note for wheelchair tip positioning (see Self-Care). Discussion w/ pt regarding checking with gym for use of personal trainers instead of spouse for access to equipment as needed - pt expresses understanding and plans to check before next PT appointment and report back. Physical Therapy Plan Frequency and Duration Frequency of 2x/Week Treatment Plan of Care Start 10/20/24 Date Plan of Care End 01/18/25 Date Therapeutic Interventions Therapeutic Aquatic Therapy,Balance Training,Coordination Training, Interventions Gait Training,Home Exercise Program,Manual Therapy, Neuromuscular Re-education,Orthotic/Prosthetic Management,Patient/Caregiver Education,Self-Care/Home Management,Sensory Integration,Soft Tissue Mobilization ,Therapeutic Activities,Therapeutic Exercises, Wheelchair Management Next Visit Focus/Plan Next Note Type Treatment Note Next Visit Plan Next: Check w/ pt for options to access gym. core progression in hooklying or quadruped. Consider side planks and supine>sidelying bed mobility focus. Continue PT per POC: Continue L log roll, L SL> quadruped, Lateral transfers to elevated surfaces more trunk flexion/frequent scoots decreased assist, Wheelchair wheelies, curb management, POC: Continue UE and core strengthening, LE PROM and manual stretching. Transfers, mobility, LE ROM, pt will benefit from continued breakdown of transfers to improve efficiency and mechanics, as well as working on more seated balance EOB.
--- NOTE | 2024-12-08 17:56 | PT.OTN ---
Current Diagnoses Paraplegia, unspecified (12/08/24) Other specified personal risk factors, not elsewhere classified (12/08/24) Other specified postprocedural states (12/08/24) Physical Therapy Treatment Note PT-OP-A Visit Information Start: 03/08/22 17:00 Freq: Status: Active Protocol: Document 12/08/24 17:05 DCW (Rec: 12/08/24 17:56 DCW [id number]) Out-Patient Physical Therapy Visit Information Visit Information Visit Type Treatment Note Visit Start Time 17:05 Visit Stop Time 17:45 Visit Number [id number] Number of LARGE ANIMAL HUSBANDRY TECHNICIAN Visits 0 Evaluation Information Evaluation Date 03/08/22 PT-OP-B Current Condition Start: 03/08/22 17:00 Freq: Status: Active Protocol: Document 03/17/24 11:29 SAK (Rec: 03/17/24 12:23 SAK [id number]) Current Condition History of Current Condition Onset Date 12/16/21 Current Complaints Paraplegia History of Current Pt is a 71 year old male with a very unfortunate Condition medical history. Pt was hiking [employer] on 12/16/21 with a friend, finished up, drive back to his friend's home to drop him off, and noticed his left leg was collapsing. By the time pt drove home, both legs were giving out and numb. Pt was suddenly paralized from the waist down, was taken to the ED, and was flown to [facility] on 12/17/21. The following day, he underwent a laminectomy to relieve pressure from the thoracic epidural hematoma which had developed following his hike, which was pressing on his spinal cord. Following surgery, pt was in recovery for a week and was then transfered to rehab for 20 days, when he was finally discharged home in a wheelchair on 01/19/22. Pt reports his surgeon informed him that it is a possibility that he gets some return of nerve function. Has experienced some changes in his right LE, but has no motor function at this time from ~T10 down. Minimal sensory return on right side, none on left. Pt has been anxious to get in to therapy and do everything he can to help return to function. Pt's , who attended his evaluation, notes that she has been doing a lot of PROM in his legs at night to keep everything moving. Pt can feel some stretching during PROM in his right leg. Pt has additionally already started occupational therapy, and has been practicing some seated stabilization. Pt transfers with a slide board, but notes it is difficult to do into his car, because he has to transfer upward at an incline. PT-OP-C Subjective Start: 03/08/22 17:00 Freq: Status: Active Protocol: Document 12/08/24 17:05 DCW (Rec: 12/08/24 17:56 DCW [id number]) OP-PT Subjective Patient Comments Patient Comments Pt notes he has been getting stiff since he hasn't chloé in PT as much recently. PT-OP-G Mobility & Gait Start: 03/08/22 17:00 Freq: Status: Active Protocol: Document 10/20/24 15:20 DCW (Rec: 10/20/24 16:01 DCW [id number]) OP Mobility Evaluation Transfers Bed to Chair Transfers using UE, improved with side-side movement, Transfers requires minimal verbal cues for LE positioning Car Transfers uses slide board, stabilizes front to back and prevent slide down board Functional Movements Other Functional Pt performs sit->supine->prone->quadruped with SBA 95% Movements of the time, requires Min Ax1 05%, typically with positioning of knees or feet, or getting up into quad from prone Wheelchair Management Type of Wheelchair Manual w/c Assessment Details Unable to perform tilt back to get over curb. Able to clear 2 obstacle 90% of the time. PT-OP-H Neuro Start: 03/08/22 17:00 Freq: Status: Active Protocol: Document 10/20/24 15:20 DCW (Rec: 10/20/24 16:01 DCW [id number]) Sensation Evaluation Gross Sensation Gross Sensation Left LE Impaired,Right LE Impaired,Trunk Impaired Sensation Paresthesia,Numbness,Tingling,Pins & [place],Burning Description Dermatome L1,L2,L3,L4,L5,S1,S2,S3,S4-5 Impairments Location Details Right Leg Light Touch Impaired Sharp/Dull Impaired Deep Pressure Intact/Normal Hot/Cold Absent Protective Sensation Absent Proprioception ( Impaired Position) Kinesthesia ( Impaired Movement) Two-Point Impaired Discrimination Tactile Localization Impaired Stereognosis Impaired Left Leg Light Touch Absent Sharp/Dull Absent Deep Pressure Impaired Hot/Cold Impaired Protective Sensation Absent Proprioception ( Absent Position) Kinesthesia ( Impaired Movement) Two-Point Absent Discrimination Tactile Localization Absent Stereognosis Absent Comments Summary Comments B protective reflex vs sharp present Deep Tendon Reflex & Clonus Assessment Deep Tendon Reflex Right Achilles Deep Tendon Reflex 2+ Normal Right Patellar Deep Tendon Reflex 2+ Normal Left Achilles Deep Tendon Reflex 2+ Normal Left Patellar Deep Tendon Reflex 1+ Diminished Ankle Clonus Right Clonus Assessment Sustained Left Clonus Assessment Sustained Muscle Tone Tone Assessment Right Lower Extremity Flexor Tone Moderate Hypertonicity Description Extensor Tone Moderate Hypertonicity Description Left Lower Extremity Flexor Tone Moderate Hypertonicity Description Extensor Tone Moderate Hypertonicity Description PT-OP-J Posture/Palpation/Skin Start: 03/08/22 17:00 Freq: Status: Active Protocol: Document 10/20/24 15:20 DCW (Rec: 10/20/24 16:01 [facility] [id number]) Posture Evaluation Comments Posture Comments Sitting EOB with good core control and no instability, uses UEs in lap for support. Recovers from directional pushing. Improved ability to reach outside of base of support. PT-OP-M Strength Start: 08/21/22 15:38 Freq: Status: Active Protocol: Document 10/20/24 15:20 DCW (Rec: 10/20/24 16:01 [facility] [id number]) Shoulder Strength Shoulder Manual Muscle Testing Right Flexion 4+ Good+ Extension 4+ Good+ Abduction (C5) 4+ Good+ External Rotation 4 Good Internal Rotation 4+ Good+ Left Flexion 4+ Good+ Extension 4+ Good+ Abduction (C5) 4+ Good+ External Rotation 4 Good Internal Rotation 4+ Good+ Elbow/Forearm Strength Elbow and Forearm Manual Muscle Testing Right Flexion (C6) 4+ Good+ Extension (C7) 4+ Good+ Left Flexion (C6) 4+ Good+ Extension (C7) 4 Good Hip Strength Hip Manual Muscle Testing Right Flexion (L2) 1 Trace Extension (S1) 2- Poor- Adduction 2- Poor- Left Flexion (L2) 1 Trace Extension (S1) 2- Poor- Adduction 1 Trace Knee Strength Knee Manual Muscle Testing Right Flexion (S2) 2- Poor- Extension (L3) 1 Trace Left Flexion (S2) 2- Poor- Extension (L3) 1 Trace Ankle/Foot Strength Ankle and Foot Manual Muscle Testing Right Dorsiflexion (L4) 1 Trace Plantarflexion (S1) 2 Poor Left Plantarflexion (S1) 1 Trace PT-OP-Q Treatments Start: 03/08/22 17:00 Freq: Status: Active Protocol: Document 12/08/24 17:05 DCW (Rec: 12/08/24 17:56 DCW [id number]) Cardio Equipment Recumbent Stepper (Sci-Fit) Duration (Minutes) 10 Resistance 8 Seat Position Seat 10, Handles 9 Other Nu-Step Therapeutic Exercises Prone Exercises prone over 4 pillows Prone Exercise Name supported trunk extension, hip flexor stretch Equipment Used over 4 pillows, towel roll under forehead Other Exercises short kneel Other Exercise Name short kneeling /c self thigh support Reps/Minutes before and after sets of push-ups Push-ups Other Exercise Name Push-up in quadruped Reps/Minutes x25, x15, x10 PT-OP-T Assessment and Plan Start: 03/08/22 17:00 Freq: Status: Active Protocol: Document 12/08/24 17:05 DCW (Rec: 12/08/24 17:56 DCW [id number]) Physical Therapy Assessment Impairments Impairments Activity Tolerance,Balance,Coordination,Functional Activities,Functional Mobility,Gait,Integument, Sensation,Soft Tissue Mobility,Strength,Tone,Transfers Goals Four Impairment Bilateral triceps weakness (R 4-, L 3+) Press Shop Supervisor Goal (LTG) Pt to demonstrate improved triceps strength to at least 4/5 bilaterally for elbow extension in order to improve transfer ability. LTG Duration 01/18/25 - Improving Three Impairment Pt does not have any motor function throughout bilateral LEs Short Term Goal (STG Pt to demonstrate 1/5 trace motor contraction in at ) least one quad in order to begin focus on LE mobility if neural functional return begins. STG Duration Met Halfway Goal (LTG) Pt to demonstrate right quad strength to at least 2/5, demonstrating movement into ROM in an antigravity position LTG Duration 01/18/25 Two Impairment Pt struggles with lateral transfer/scooting along EOB Press Shop Supervisor Goal (LTG) Pt to perform lateral scoot transfer using proper technique without any verbal cues 4x in a row. LTG Duration 01/18/25 One Impairment Pt does not have an appropriate home exercise program Short Term Goal (STG Pt to be independent and compliant with an appropriate ) HEP STG Duration 12/18/24 Assessment Summary Assessment Pt struggled much more today with bed mobility and transfers secondary to increased tone/stiffness. Pt overall notes he hasn't been as active since being off of PT for the past two weeks. Continue to work on w/c mobility, transfers, strengthening, and stabilization. Physical Therapy Plan Frequency and Duration Frequency of 2x/Week Treatment Plan of Care Start 10/20/24 Date Plan of Care End 01/18/25 Date Therapeutic Interventions Therapeutic Aquatic Therapy,Balance Training,Coordination Training, Interventions Gait Training,Home Exercise Program,Manual Therapy, Neuromuscular Re-education,Orthotic/Prosthetic Management,Patient/Caregiver Education,Self-Care/Home Management,Sensory Integration,Soft Tissue Mobilization ,Therapeutic Activities,Therapeutic Exercises, Wheelchair Management Next Visit Focus/Plan Next Note Type Treatment Note Next Visit Plan Next: Check w/ pt for options to access gym. core progression in hooklying or quadruped. Consider side planks and supine>sidelying bed mobility focus. Continue PT per POC: Continue L log roll, L SL> quadruped, Lateral transfers to elevated surfaces more trunk flexion/frequent scoots decreased assist, Wheelchair wheelies, curb management, POC: Continue UE and core strengthening, LE PROM and manual stretching. Transfers, mobility, LE ROM, pt will benefit from continued breakdown of transfers to improve efficiency and mechanics, as well as working on more seated balance EOB.
--- NOTE | 2024-12-10 16:40 | PT.OTN ---
Current Diagnoses Paraplegia, unspecified (12/10/24) Other specified personal risk factors, not elsewhere classified (12/10/24) Other specified postprocedural states (12/10/24) Physical Therapy Treatment Note PT-OP-A Visit Information Start: 03/08/22 17:00 Freq: Status: Active Protocol: Document 12/10/24 14:00 NBM (Rec: 12/10/24 16:40 NBM Laptop) Out-Patient Physical Therapy Visit Information Visit Information Visit Type Treatment Note Visit Start Time 13:58 Visit Stop Time 14:38 Visit Number [id number] Number of ANIMAL CRUELTY INVESTIGATION SUPERVISOR Visits 1 Evaluation Information Evaluation Date 03/08/22 PT-OP-B Current Condition Start: 03/08/22 17:00 Freq: Status: Active Protocol: Document 03/17/24 11:29 SAK (Rec: 03/17/24 12:23 SAK [id number]) Current Condition History of Current Condition Onset Date 12/16/21 Current Complaints Paraplegia History of Current Pt is a 71 year old male with a very unfortunate Condition medical history. Pt was hiking [employer] on 12/16/21 with a friend, finished up, drive back to his friend's home to drop him off, and noticed his left leg was collapsing. By the time pt drove home, both legs were giving out and numb. Pt was suddenly paralized from the waist down, was taken to the ED, and was flown to [facility] on 12/17/21. The following day, he underwent a laminectomy to relieve pressure from the thoracic epidural hematoma which had developed following his hike, which was pressing on his spinal cord. Following surgery, pt was in recovery for a week and was then transfered to rehab for 20 days, when he was finally discharged home in a wheelchair on 01/19/22. Pt reports his surgeon informed him that it is a possibility that he gets some return of nerve function. Has experienced some changes in his right LE, but has no motor function at this time from ~T10 down. Minimal sensory return on right side, none on left. Pt has been anxious to get in to therapy and do everything he can to help return to function. Pt's , who attended his evaluation, notes that she has been doing a lot of PROM in his legs at night to keep everything moving. Pt can feel some stretching during PROM in his right leg. Pt has additionally already started occupational therapy, and has been practicing some seated stabilization. Pt transfers with a slide board, but notes it is difficult to do into his car, because he has to transfer upward at an incline. PT-OP-C Subjective Start: 03/08/22 17:00 Freq: Status: Active Protocol: Document 12/10/24 14:00 NBM (Rec: 12/10/24 16:40 NBM Laptop) OP-PT Subjective Patient Comments Patient Comments Toby reports he has not yet checked with gym for options but daughter is in town and will help; dog has a lump that needs to be taken in to vet for. He noticed when he didn't have appointments for week and a half how much more difficult PT was and how it helps him with car transfers and other things in life he needs to do. PT-OP-G Mobility & Gait Start: 03/08/22 17:00 Freq: Status: Active Protocol: Document 10/20/24 15:20 DCW (Rec: 10/20/24 16:01 DCW [id number]) OP Mobility Evaluation Transfers Bed to Chair Transfers using UE, improved with side-side movement, Transfers requires minimal verbal cues for LE positioning Car Transfers uses slide board, stabilizes front to back and prevent slide down board Functional Movements Other Functional Pt performs sit->supine->prone->quadruped with SBA 95% Movements of the time, requires Min Ax1 05%, typically with positioning of knees or feet, or getting up into quad from prone Wheelchair Management Type of Wheelchair Manual w/c Assessment Details Unable to perform tilt back to get over curb. Able to clear 2 obstacle 90% of the time. PT-OP-H Neuro Start: 03/08/22 17:00 Freq: Status: Active Protocol: Document 10/20/24 15:20 DCW (Rec: 10/20/24 16:01 DCW [id number]) Sensation Evaluation Gross Sensation Gross Sensation Left LE Impaired,Right LE Impaired,Trunk Impaired Sensation Paresthesia,Numbness,Tingling,Pins & [place],Burning Description Dermatome L1,L2,L3,L4,L5,S1,S2,S3,S4-5 Impairments Location Details Right Leg Light Touch Impaired Sharp/Dull Impaired Deep Pressure Intact/Normal Hot/Cold Absent Protective Sensation Absent Proprioception ( Impaired Position) Kinesthesia ( Impaired Movement) Two-Point Impaired Discrimination Tactile Localization Impaired Stereognosis Impaired Left Leg Light Touch Absent Sharp/Dull Absent Deep Pressure Impaired Hot/Cold Impaired Protective Sensation Absent Proprioception ( Absent Position) Kinesthesia ( Impaired Movement) Two-Point Absent Discrimination Tactile Localization Absent Stereognosis Absent Comments Summary Comments B protective reflex vs sharp present Deep Tendon Reflex & Clonus Assessment Deep Tendon Reflex Right Achilles Deep Tendon Reflex 2+ Normal Right Patellar Deep Tendon Reflex 2+ Normal Left Achilles Deep Tendon Reflex 2+ Normal Left Patellar Deep Tendon Reflex 1+ Diminished Ankle Clonus Right Clonus Assessment Sustained Left Clonus Assessment Sustained Muscle Tone Tone Assessment Right Lower Extremity Flexor Tone Moderate Hypertonicity Description Extensor Tone Moderate Hypertonicity Description Left Lower Extremity Flexor Tone Moderate Hypertonicity Description Extensor Tone Moderate Hypertonicity Description PT-OP-J Posture/Palpation/Skin Start: 03/08/22 17:00 Freq: Status: Active Protocol: Document 10/20/24 15:20 DCW (Rec: 10/20/24 16:01 DCW [id number]) Posture Evaluation Comments Posture Comments Sitting EOB with good core control and no instability, uses UEs in lap for support. Recovers from directional pushing. Improved ability to reach outside of base of support. PT-OP-M Strength Start: 08/21/22 15:38 Freq: Status: Active Protocol: Document 10/20/24 15:20 DCW (Rec: 10/20/24 16:01 DCW [id number]) Shoulder Strength Shoulder Manual Muscle Testing Right Flexion 4+ Good+ Extension 4+ Good+ Abduction (C5) 4+ Good+ External Rotation 4 Good Internal Rotation 4+ Good+ Left Flexion 4+ Good+ Extension 4+ Good+ Abduction (C5) 4+ Good+ External Rotation 4 Good Internal Rotation 4+ Good+ Elbow/Forearm Strength Elbow and Forearm Manual Muscle Testing Right Flexion (C6) 4+ Good+ Extension (C7) 4+ Good+ Left Flexion (C6) 4+ Good+ Extension (C7) 4 Good Hip Strength Hip Manual Muscle Testing Right Flexion (L2) 1 Trace Extension (S1) 2- Poor- Adduction 2- Poor- Left Flexion (L2) 1 Trace Extension (S1) 2- Poor- Adduction 1 Trace Knee Strength Knee Manual Muscle Testing Right Flexion (S2) 2- Poor- Extension (L3) 1 Trace Left Flexion (S2) 2- Poor- Extension (L3) 1 Trace Ankle/Foot Strength Ankle and Foot Manual Muscle Testing Right Dorsiflexion (L4) 1 Trace Plantarflexion (S1) 2 Poor Left Plantarflexion (S1) 1 Trace PT-OP-Q Treatments Start: 03/08/22 17:00 Freq: Status: Active Protocol: Document 12/10/24 14:00 NBM (Rec: 12/10/24 16:40 NBM Laptop) Cardio Equipment Recumbent Stepper (Sci-Fit) Duration (Minutes) 11 Resistance 8 Seat Position Seat 10>12, Handles 9>10 Other Nu-Step, increased seat distance to increase LE ROM; strap added LEs align Gym Equipment Cable Column (Body Solid) Triceps Details Seated Triceps Press, cues for elbow ext Resistance 30# 2x10, fwd reach trunk flex stretch Reps/Time Height: 13 holes seen from bottom cable row Details ANIMAL CRUELTY INVESTIGATION SUPERVISOR assist to maintain upright posture Resistance 30# Reps/Time 2x10 lateral pulldown Details Lat Pulldown Resistance 65# x12, 70# x8 Reps/Time 3 x10, occ vc for breath Self-Care/Home Management Treatment Education Patient Education Fall Risk,Home Exercise Program,Safety Other Education Confirmed with pt baseline w/c tip length at Start of Session 3rd hole from top and trialed longer and shorter with pt attempting to balance in place - pt initially hesitant to balance on w/c tips baseline but with trials is able to balance on baseline tips and confirmed at appropriate height. PT-OP-T Assessment and Plan Start: 03/08/22 17:00 Freq: Status: Active Protocol: Document 12/10/24 14:00 NBM (Rec: 12/10/24 16:40 NBM Laptop) Physical Therapy Assessment Impairments Impairments Activity Tolerance,Balance,Coordination,Functional Activities,Functional Mobility,Gait,Integument, Sensation,Soft Tissue Mobility,Strength,Tone,Transfers Goals Four Impairment Bilateral triceps weakness (R 4-, L 3+) User Experience Architect Goal (LTG) Pt to demonstrate improved triceps strength to at least 4/5 bilaterally for elbow extension in order to improve transfer ability. LTG Duration 01/18/25 - Improving Three Impairment Pt does not have any motor function throughout bilateral LEs Short Term Goal (STG Pt to demonstrate 1/5 trace motor contraction in at ) least one quad in order to begin focus on LE mobility if neural functional return begins. STG Duration Met Mcfp Goal (LTG) Pt to demonstrate right quad strength to at least 2/5, demonstrating movement into ROM in an antigravity position LTG Duration 01/18/25 Two Impairment Pt struggles with lateral transfer/scooting along EOB User Experience Architect Goal (LTG) Pt to perform lateral scoot transfer using proper technique without any verbal cues 4x in a row. LTG Duration 01/18/25 One Impairment Pt does not have an appropriate home exercise program Short Term Goal (STG Pt to be independent and compliant with an appropriate ) HEP STG Duration 12/18/24 Assessment Summary Assessment Treatment focus on neural priming, improving lower extremity ROM, upper extremity strengthening, and wheelchair balance safety. Pt requires strap above knees for LE alignment on Nu-step but is able to increase seat level to increase LE ROM. Tricep resistance is decreased today following recent two-week period of no PT. Pt trials balancing on wheelchair tips at baseline level third hole from top, and is assured of ability to balance safely and appropriate baseline for tip length. Physical Therapy Plan Frequency and Duration Frequency of 2x/Week Treatment Plan of Care Start 10/20/24 Date Plan of Care End 01/18/25 Date Therapeutic Interventions Therapeutic Aquatic Therapy,Balance Training,Coordination Training, Interventions Gait Training,Home Exercise Program,Manual Therapy, Neuromuscular Re-education,Orthotic/Prosthetic Management,Patient/Caregiver Education,Self-Care/Home Management,Sensory Integration,Soft Tissue Mobilization ,Therapeutic Activities,Therapeutic Exercises, Wheelchair Management Next Visit Focus/Plan Next Note Type Treatment Note Next Visit Plan Next: Check w/ pt for options to access gym. core progression in hooklying or quadruped. Consider side planks and supine>sidelying bed mobility focus. Continue PT per POC: Continue L log roll, L SL> quadruped, Lateral transfers to elevated surfaces more trunk flexion/frequent scoots decreased assist, Wheelchair wheelies, curb management, POC: Continue UE and core strengthening, LE PROM and manual stretching. Transfers, mobility, LE ROM, pt will benefit from continued breakdown of transfers to improve efficiency and mechanics, as well as working on more seated balance EOB.
--- NOTE | 2024-12-14 15:21 | PT.OTN ---
Current Diagnoses Paraplegia, unspecified (12/14/24) Other specified personal risk factors, not elsewhere classified (12/14/24) Other specified postprocedural states (12/14/24) Physical Therapy Treatment Note PT-OP-A Visit Information Start: 03/08/22 17:00 Freq: Status: Active Protocol: Document 12/14/24 14:35 DCW (Rec: 12/14/24 15:21 DCW [id number]) Out-Patient Physical Therapy Visit Information Visit Information Visit Type Treatment Note Visit Start Time 14:35 Visit Stop Time 15:15 Visit Number [id number] Number of VERTICA ARCHITECT Visits 0 Evaluation Information Evaluation Date 03/08/22 PT-OP-B Current Condition Start: 03/08/22 17:00 Freq: Status: Active Protocol: Document 03/17/24 11:29 SAK (Rec: 03/17/24 12:23 SAK [id number]) Current Condition History of Current Condition Onset Date 12/16/21 Current Complaints Paraplegia History of Current Pt is a 71 year old male with a very unfortunate Condition medical history. Pt was hiking [place] on 12/16/21 with a friend, finished up, drive back to his friend's home to drop him off, and noticed his left leg was collapsing. By the time pt drove home, both legs were giving out and numb. Pt was suddenly paralized from the waist down, was taken to the ED, and was flown to [facility] on 12/17/21. The following day, he underwent a laminectomy to relieve pressure from the thoracic epidural hematoma which had developed following his hike, which was pressing on his spinal cord. Following surgery, pt was in recovery for a week and was then transfered to rehab for 20 days, when he was finally discharged home in a wheelchair on 01/19/22. Pt reports his surgeon informed him that it is a possibility that he gets some return of nerve function. Has experienced some changes in his right LE, but has no motor function at this time from ~T10 down. Minimal sensory return on right side, none on left. Pt has been anxious to get in to therapy and do everything he can to help return to function. Pt's , who attended his evaluation, notes that she has been doing a lot of PROM in his legs at night to keep everything moving. Pt can feel some stretching during PROM in his right leg. Pt has additionally already started occupational therapy, and has been practicing some seated stabilization. Pt transfers with a slide board, but notes it is difficult to do into his car, because he has to transfer upward at an incline. PT-OP-C Subjective Start: 03/08/22 17:00 Freq: Status: Active Protocol: Document 12/14/24 14:35 DCW (Rec: 12/14/24 15:21 DCW [id number]) OP-PT Subjective Patient Comments Patient Comments Nothing new to report. I'm getting more and more sensation return to this right leg, but unfortunately, it's not leading to any new motor control. PT-OP-G Mobility & Gait Start: 03/08/22 17:00 Freq: Status: Active Protocol: Document 10/20/24 15:20 DCW (Rec: 10/20/24 16:01 DCW [id number]) OP Mobility Evaluation Transfers Bed to Chair Transfers using UE, improved with side-side movement, Transfers requires minimal verbal cues for LE positioning Car Transfers uses slide board, stabilizes front to back and prevent slide down board Functional Movements Other Functional Pt performs sit->supine->prone->quadruped with SBA 95% Movements of the time, requires Min Ax1 05%, typically with positioning of knees or feet, or getting up into quad from prone Wheelchair Management Type of Wheelchair Manual w/c Assessment Details Unable to perform tilt back to get over curb. Able to clear 2 obstacle 90% of the time. PT-OP-H Neuro Start: 03/08/22 17:00 Freq: Status: Active Protocol: Document 10/20/24 15:20 DCW (Rec: 10/20/24 16:01 DCW [id number]) Sensation Evaluation Gross Sensation Gross Sensation Left LE Impaired,Right LE Impaired,Trunk Impaired Sensation Paresthesia,Numbness,Tingling,Pins & [place],Burning Description Dermatome L1,L2,L3,L4,L5,S1,S2,S3,S4-5 Impairments Location Details Right Leg Light Touch Impaired Sharp/Dull Impaired Deep Pressure Intact/Normal Hot/Cold Absent Protective Sensation Absent Proprioception ( Impaired Position) Kinesthesia ( Impaired Movement) Two-Point Impaired Discrimination Tactile Localization Impaired Stereognosis Impaired Left Leg Light Touch Absent Sharp/Dull Absent Deep Pressure Impaired Hot/Cold Impaired Protective Sensation Absent Proprioception ( Absent Position) Kinesthesia ( Impaired Movement) Two-Point Absent Discrimination Tactile Localization Absent Stereognosis Absent Comments Summary Comments B protective reflex vs sharp present Deep Tendon Reflex & Clonus Assessment Deep Tendon Reflex Right Achilles Deep Tendon Reflex 2+ Normal Right Patellar Deep Tendon Reflex 2+ Normal Left Achilles Deep Tendon Reflex 2+ Normal Left Patellar Deep Tendon Reflex 1+ Diminished Ankle Clonus Right Clonus Assessment Sustained Left Clonus Assessment Sustained Muscle Tone Tone Assessment Right Lower Extremity Flexor Tone Moderate Hypertonicity Description Extensor Tone Moderate Hypertonicity Description Left Lower Extremity Flexor Tone Moderate Hypertonicity Description Extensor Tone Moderate Hypertonicity Description PT-OP-J Posture/Palpation/Skin Start: 03/08/22 17:00 Freq: Status: Active Protocol: Document 10/20/24 15:20 DCW (Rec: 10/20/24 16:01 DCW [id number]) Posture Evaluation Comments Posture Comments Sitting EOB with good core control and no instability, uses UEs in lap for support. Recovers from directional pushing. Improved ability to reach outside of base of support. PT-OP-M Strength Start: 08/21/22 15:38 Freq: Status: Active Protocol: Document 10/20/24 15:20 DCW (Rec: 10/20/24 16:01 DCW [id number]) Shoulder Strength Shoulder Manual Muscle Testing Right Flexion 4+ Good+ Extension 4+ Good+ Abduction (C5) 4+ Good+ External Rotation 4 Good Internal Rotation 4+ Good+ Left Flexion 4+ Good+ Extension 4+ Good+ Abduction (C5) 4+ Good+ External Rotation 4 Good Internal Rotation 4+ Good+ Elbow/Forearm Strength Elbow and Forearm Manual Muscle Testing Right Flexion (C6) 4+ Good+ Extension (C7) 4+ Good+ Left Flexion (C6) 4+ Good+ Extension (C7) 4 Good Hip Strength Hip Manual Muscle Testing Right Flexion (L2) 1 Trace Extension (S1) 2- Poor- Adduction 2- Poor- Left Flexion (L2) 1 Trace Extension (S1) 2- Poor- Adduction 1 Trace Knee Strength Knee Manual Muscle Testing Right Flexion (S2) 2- Poor- Extension (L3) 1 Trace Left Flexion (S2) 2- Poor- Extension (L3) 1 Trace Ankle/Foot Strength Ankle and Foot Manual Muscle Testing Right Dorsiflexion (L4) 1 Trace Plantarflexion (S1) 2 Poor Left Plantarflexion (S1) 1 Trace PT-OP-Q Treatments Start: 03/08/22 17:00 Freq: Status: Active Protocol: Document 12/14/24 14:35 DCW (Rec: 12/14/24 15:21 DCW [id number]) Cardio Equipment Recumbent Stepper (Sci-Fit) Duration (Minutes) 10 Resistance 8 Seat Position Seat 10, Handles 9 Other Nu-Step Therapeutic Exercises Other Exercises short kneel Other Exercise Name short kneeling /c self thigh support Reps/Minutes before and after sets of push-ups Thread the needle Other Exercise Name Thread the needle on forearms/knees Side bilateral Comments cues for max reach, head follows hand Push-ups Other Exercise Name Push-up in quadruped Reps/Minutes x20, x15, x10, x8 Therapeutic Activity Therapeutic Activity supine>prone>quadruped Name SBA: into quadruped<> L SL, heavy pt BUE support PT-OP-T Assessment and Plan Start: 03/08/22 17:00 Freq: Status: Active Protocol: Document 12/14/24 14:35 DCW (Rec: 12/14/24 15:21 DCW [id number]) Physical Therapy Assessment Impairments Impairments Activity Tolerance,Balance,Coordination,Functional Activities,Functional Mobility,Gait,Integument, Sensation,Soft Tissue Mobility,Strength,Tone,Transfers Goals Four Impairment Bilateral triceps weakness (R 4-, L 3+) Fci Goal (LTG) Pt to demonstrate improved triceps strength to at least 4/5 bilaterally for elbow extension in order to improve transfer ability. LTG Duration 01/18/25 - Improving Three Impairment Pt does not have any motor function throughout bilateral LEs Short Term Goal (STG Pt to demonstrate 1/5 trace motor contraction in at ) least one quad in order to begin focus on LE mobility if neural functional return begins. STG Duration Met Wood Bucker Goal (LTG) Pt to demonstrate right quad strength to at least 2/5, demonstrating movement into ROM in an antigravity position LTG Duration 01/18/25 Two Impairment Pt struggles with lateral transfer/scooting along EOB Fci Goal (LTG) Pt to perform lateral scoot transfer using proper technique without any verbal cues 4x in a row. LTG Duration 01/18/25 One Impairment Pt does not have an appropriate home exercise program Short Term Goal (STG Pt to be independent and compliant with an appropriate ) HEP STG Duration 12/18/24 Assessment Summary Assessment Pt still struggling a bit following a gap in therapy two weeks ago. Decreased UE strength, transfer, and bed mobility abilities today. Will benefit from continued focus on strength, stabilization, and functional mobility. Physical Therapy Plan Frequency and Duration Frequency of 2x/Week Treatment Plan of Care Start 10/20/24 Date Plan of Care End 01/18/25 Date Therapeutic Interventions Therapeutic Aquatic Therapy,Balance Training,Coordination Training, Interventions Gait Training,Home Exercise Program,Manual Therapy, Neuromuscular Re-education,Orthotic/Prosthetic Management,Patient/Caregiver Education,Self-Care/Home Management,Sensory Integration,Soft Tissue Mobilization ,Therapeutic Activities,Therapeutic Exercises, Wheelchair Management Next Visit Focus/Plan Next Note Type Treatment Note Next Visit Plan Next: Check w/ pt for options to access gym. core progression in hooklying or quadruped. Consider side planks and supine>sidelying bed mobility focus. Continue PT per POC: Continue L log roll, L SL> quadruped, Lateral transfers to elevated surfaces more trunk flexion/frequent scoots decreased assist, Wheelchair wheelies, curb management, POC: Continue UE and core strengthening, LE PROM and manual stretching. Transfers, mobility, LE ROM, pt will benefit from continued breakdown of transfers to improve efficiency and mechanics, as well as working on more seated balance EOB.
--- NOTE | 2024-12-16 16:46 | PT.OTN ---
Current Diagnoses Paraplegia, unspecified (12/16/24) Other specified personal risk factors, not elsewhere classified (12/16/24) Other specified postprocedural states (12/16/24) Physical Therapy Treatment Note PT-OP-A Visit Information Start: 03/08/22 17:00 Freq: Status: Active Protocol: Document 12/16/24 13:16 NBM (Rec: 12/16/24 13:51 NBM Laptop) Out-Patient Physical Therapy Visit Information Visit Information Visit Type Treatment Note Visit Start Time 13:06 Visit Stop Time 13:50 Visit Number [id number] Number of POLISH MAKER Visits 1 PT-OP-B Current Condition Start: 03/08/22 17:00 Freq: Status: Active Protocol: Document 03/17/24 11:29 SAK (Rec: 03/17/24 12:23 SAK [id number]) Current Condition History of Current Condition Onset Date 12/16/21 Current Complaints Paraplegia History of Current Pt is a 71 year old male with a very unfortunate Condition medical history. Pt was hiking [place] on 12/16/21 with a friend, finished up, drive back to his friend's home to drop him off, and noticed his left leg was collapsing. By the time pt drove home, both legs were giving out and numb. Pt was suddenly paralized from the waist down, was taken to the ED, and was flown to [facility] on 12/17/21. The following day, he underwent a laminectomy to relieve pressure from the thoracic epidural hematoma which had developed following his hike, which was pressing on his spinal cord. Following surgery, pt was in recovery for a week and was then transfered to rehab for 20 days, when he was finally discharged home in a wheelchair on 01/19/22. Pt reports his surgeon informed him that it is a possibility that he gets some return of nerve function. Has experienced some changes in his right LE, but has no motor function at this time from ~T10 down. Minimal sensory return on right side, none on left. Pt has been anxious to get in to therapy and do everything he can to help return to function. Pt's , who attended his evaluation, notes that she has been doing a lot of PROM in his legs at night to keep everything moving. Pt can feel some stretching during PROM in his right leg. Pt has additionally already started occupational therapy, and has been practicing some seated stabilization. Pt transfers with a slide board, but notes it is difficult to do into his car, because he has to transfer upward at an incline. PT-OP-C Subjective Start: 03/08/22 17:00 Freq: Status: Active Protocol: Document 12/16/24 13:16 NBM (Rec: 12/16/24 13:51 NBM Laptop) OP-PT Subjective Patient Comments Patient Comments Toby reports he has not yet checked with gym for personalized living manager options. Brother is coming into town and may be able to help him. During session he reports he hasn't laid on his stomach in a long time. PT-OP-G Mobility & Gait Start: 03/08/22 17:00 Freq: Status: Active Protocol: Document 10/20/24 15:20 DCW (Rec: 10/20/24 16:01 DCW [id number]) OP Mobility Evaluation Transfers Bed to Chair Transfers using UE, improved with side-side movement, Transfers requires minimal verbal cues for LE positioning Car Transfers uses slide board, stabilizes front to back and prevent slide down board Functional Movements Other Functional Pt performs sit->supine->prone->quadruped with SBA 95% Movements of the time, requires Min Ax1 05%, typically with positioning of knees or feet, or getting up into quad from prone Wheelchair Management Type of Wheelchair Manual w/c Assessment Details Unable to perform tilt back to get over curb. Able to clear 2 obstacle 90% of the time. PT-OP-H Neuro Start: 03/08/22 17:00 Freq: Status: Active Protocol: Document 10/20/24 15:20 DCW (Rec: 10/20/24 16:01 DCW [id number]) Sensation Evaluation Gross Sensation Gross Sensation Left LE Impaired,Right LE Impaired,Trunk Impaired Sensation Paresthesia,Numbness,Tingling,Pins & [place],Burning Description Dermatome L1,L2,L3,L4,L5,S1,S2,S3,S4-5 Impairments Location Details Right Leg Light Touch Impaired Sharp/Dull Impaired Deep Pressure Intact/Normal Hot/Cold Absent Protective Sensation Absent Proprioception ( Impaired Position) Kinesthesia ( Impaired Movement) Two-Point Impaired Discrimination Tactile Localization Impaired Stereognosis Impaired Left Leg Light Touch Absent Sharp/Dull Absent Deep Pressure Impaired Hot/Cold Impaired Protective Sensation Absent Proprioception ( Absent Position) Kinesthesia ( Impaired Movement) Two-Point Absent Discrimination Tactile Localization Absent Stereognosis Absent Comments Summary Comments B protective reflex vs sharp present Deep Tendon Reflex & Clonus Assessment Deep Tendon Reflex Right Achilles Deep Tendon Reflex 2+ Normal Right Patellar Deep Tendon Reflex 2+ Normal Left Achilles Deep Tendon Reflex 2+ Normal Left Patellar Deep Tendon Reflex 1+ Diminished Ankle Clonus Right Clonus Assessment Sustained Left Clonus Assessment Sustained Muscle Tone Tone Assessment Right Lower Extremity Flexor Tone Moderate Hypertonicity Description Extensor Tone Moderate Hypertonicity Description Left Lower Extremity Flexor Tone Moderate Hypertonicity Description Extensor Tone Moderate Hypertonicity Description PT-OP-J Posture/Palpation/Skin Start: 03/08/22 17:00 Freq: Status: Active Protocol: Document 10/20/24 15:20 DCW (Rec: 10/20/24 16:01 DCW [id number]) Posture Evaluation Comments Posture Comments Sitting EOB with good core control and no instability, uses UEs in lap for support. Recovers from directional pushing. Improved ability to reach outside of base of support. PT-OP-M Strength Start: 08/21/22 15:38 Freq: Status: Active Protocol: Document 10/20/24 15:20 DCW (Rec: 10/20/24 16:01 DCW [id number]) Shoulder Strength Shoulder Manual Muscle Testing Right Flexion 4+ Good+ Extension 4+ Good+ Abduction (C5) 4+ Good+ External Rotation 4 Good Internal Rotation 4+ Good+ Left Flexion 4+ Good+ Extension 4+ Good+ Abduction (C5) 4+ Good+ External Rotation 4 Good Internal Rotation 4+ Good+ Elbow/Forearm Strength Elbow and Forearm Manual Muscle Testing Right Flexion (C6) 4+ Good+ Extension (C7) 4+ Good+ Left Flexion (C6) 4+ Good+ Extension (C7) 4 Good Hip Strength Hip Manual Muscle Testing Right Flexion (L2) 1 Trace Extension (S1) 2- Poor- Adduction 2- Poor- Left Flexion (L2) 1 Trace Extension (S1) 2- Poor- Adduction 1 Trace Knee Strength Knee Manual Muscle Testing Right Flexion (S2) 2- Poor- Extension (L3) 1 Trace Left Flexion (S2) 2- Poor- Extension (L3) 1 Trace Ankle/Foot Strength Ankle and Foot Manual Muscle Testing Right Dorsiflexion (L4) 1 Trace Plantarflexion (S1) 2 Poor Left Plantarflexion (S1) 1 Trace PT-OP-Q Treatments Start: 03/08/22 17:00 Freq: Status: Active Protocol: Document 12/16/24 13:16 NB (Rec: 12/16/24 13:51 [facility] Laptop) Therapeutic Exercises Prone Exercises prone hip flexor stretch Prone Exercise Name using edge of table pt pulls self w upper torso off mat w/ POLISH MAKER maxA at hips Equipment Used Gait belt Reps/Minutes 45 sec Comments pos feedback response;pt counseled on impulsivity,use of pillows under hips prone over 4 pillows Prone Exercise Name next session Sidelying Exercises Open book Sidelying Exercise Open book Name Side bilateral Equipment Used manual pelvic stabilization, manual hip abd stretch on R>L Reps/Minutes x10 AROM, 1 min hold stretch w/ overpressure Comments vc for head to follow hand Other Exercises short kneel Other Exercise Name short kneeling /c self thigh support Reps/Minutes before and after sets of push-ups Thread the needle Other Exercise Name Thread the needle on forearms/knees Side bilateral Reps/Minutes x10, x3 with overpressure at shoulder Comments cues for max reach, head follows hand Push-ups Other Exercise Name Push-up in quadruped Reps/Minutes x20, x10, x11, x10 Comments hands progressed closer each set quadruped child's pose Other Exercise Name Child's pose on forearms fwd Comments w/ overpressure at hips Therapeutic Activity Therapeutic Activity supine>prone>quadruped Name SBA: into quadruped<> L SL, heavy pt BUE support PT-OP-T Assessment and Plan Start: 03/08/22 17:00 Freq: Status: Active Protocol: Document 12/16/24 13:16 [facility] (Rec: 12/16/24 13:51 [facility] Laptop) Physical Therapy Assessment Goals Four Impairment Bilateral triceps weakness (R 4-, L 3+) Halfway Goal (LTG) Pt to demonstrate improved triceps strength to at least 4/5 bilaterally for elbow extension in order to improve transfer ability. LTG Duration 01/18/25 - Improving Three Impairment Pt does not have any motor function throughout bilateral LEs Short Term Goal (STG Pt to demonstrate 1/5 trace motor contraction in at ) least one quad in order to begin focus on LE mobility if neural functional return begins. STG Duration Met Halfway Goal (LTG) Pt to demonstrate right quad strength to at least 2/5, demonstrating movement into ROM in an antigravity position LTG Duration 01/18/25 Two Impairment Pt struggles with lateral transfer/scooting along EOB Intelligence Operations Specialist Goal (LTG) Pt to perform lateral scoot transfer using proper technique without any verbal cues 4x in a row. LTG Duration 01/18/25 One Impairment Pt does not have an appropriate home exercise program Short Term Goal (STG Pt to be independent and compliant with an appropriate ) HEP STG Duration 12/18/24 Assessment Summary Assessment Treatment focus on triceps strengthening to fatigue with progressively decreased base of support, thoracic rotation and lower extremity stretching with positive feedback response. After brief discussion of prone pt is counseled for impulsivity in attempting prone requiring max A at hips and educated for safety to keep body on mat table with pillows under hips, and expresses understanding, as well as positive feedback response. Physical Therapy Plan Frequency and Duration Frequency of 2x/Week Treatment Plan of Care Start 10/20/24 Date Plan of Care End 01/18/25 Date Next Visit Focus/Plan Next Note Type Treatment Note Next Visit Plan Next: Prone with pillows under hips. Check w/ pt for options to access gym. core progression in hooklying or quadruped. Consider side planks and supine>sidelying bed mobility focus. Continue PT per POC: Continue L log roll, L SL> quadruped, Lateral transfers to elevated surfaces more trunk flexion/frequent scoots decreased assist, Wheelchair wheelies, curb management, POC: Continue UE and core strengthening, LE PROM and manual stretching. Transfers, mobility, LE ROM, pt will benefit from continued breakdown of transfers to improve efficiency and mechanics, as well as working on more seated balance EOB.
--- NOTE | 2024-12-21 15:52 | PT.OTN ---
Current Diagnoses Paraplegia, unspecified (12/21/24) Other specified personal risk factors, not elsewhere classified (12/21/24) Other specified postprocedural states (12/21/24) Physical Therapy Treatment Note PT-OP-A Visit Information Start: 03/08/22 17:00 Freq: Status: Active Protocol: Document 12/21/24 15:15 DCW (Rec: 12/21/24 15:52 DCW [id number]) Out-Patient Physical Therapy Visit Information Visit Information Visit Type Progress Note Visit Start Time 15:15 Visit Stop Time 16:00 Visit Number [id number] Number of AIR TRAFFIC CONTROL SPECIALIST Visits 0 Progress Note Due 01/20/25 PT-OP-B Current Condition Start: 03/08/22 17:00 Freq: Status: Active Protocol: Document 03/17/24 11:29 SAK (Rec: 03/17/24 12:23 SAK [id number]) Current Condition History of Current Condition Onset Date 12/16/21 Current Complaints Paraplegia History of Current Pt is a 71 year old male with a very unfortunate Condition medical history. Pt was hiking [employer] on 12/16/21 with a friend, finished up, drive back to his friend's home to drop him off, and noticed his left leg was collapsing. By the time pt drove home, both legs were giving out and numb. Pt was suddenly paralized from the waist down, was taken to the ED, and was flown to [facility] on 12/17/21. The following day, he underwent a laminectomy to relieve pressure from the thoracic epidural hematoma which had developed following his hike, which was pressing on his spinal cord. Following surgery, pt was in recovery for a week and was then transfered to rehab for 20 days, when he was finally discharged home in a wheelchair on 01/19/22. Pt reports his surgeon informed him that it is a possibility that he gets some return of nerve function. Has experienced some changes in his right LE, but has no motor function at this time from ~T10 down. Minimal sensory return on right side, none on left. Pt has been anxious to get in to therapy and do everything he can to help return to function. Pt's , who attended his evaluation, notes that she has been doing a lot of PROM in his legs at night to keep everything moving. Pt can feel some stretching during PROM in his right leg. Pt has additionally already started occupational therapy, and has been practicing some seated stabilization. Pt transfers with a slide board, but notes it is difficult to do into his car, because he has to transfer upward at an incline. PT-OP-C Subjective Start: 03/08/22 17:00 Freq: Status: Active Protocol: Document 12/21/24 15:15 DCW (Rec: 12/21/24 15:52 DCW [id number]) OP-PT Subjective Patient Comments Patient Comments Pt reporting things largely unchanged. PT-OP-G Mobility & Gait Start: 03/08/22 17:00 Freq: Status: Active Protocol: Document 10/20/24 15:20 DCW (Rec: 10/20/24 16:01 DCW [id number]) OP Mobility Evaluation Transfers Bed to Chair Transfers using UE, improved with side-side movement, Transfers requires minimal verbal cues for LE positioning Car Transfers uses slide board, stabilizes front to back and prevent slide down board Functional Movements Other Functional Pt performs sit->supine->prone->quadruped with SBA 95% Movements of the time, requires Min Ax1 05%, typically with positioning of knees or feet, or getting up into quad from prone Wheelchair Management Type of Wheelchair Manual w/c Assessment Details Unable to perform tilt back to get over curb. Able to clear 2 obstacle 90% of the time. PT-OP-H Neuro Start: 03/08/22 17:00 Freq: Status: Active Protocol: Document 10/20/24 15:20 DCW (Rec: 10/20/24 16:01 DCW [id number]) Sensation Evaluation Gross Sensation Gross Sensation Left LE Impaired,Right LE Impaired,Trunk Impaired Sensation Paresthesia,Numbness,Tingling,Pins & [place],Burning Description Dermatome L1,L2,L3,L4,L5,S1,S2,S3,S4-5 Impairments Location Details Right Leg Light Touch Impaired Sharp/Dull Impaired Deep Pressure Intact/Normal Hot/Cold Absent Protective Sensation Absent Proprioception ( Impaired Position) Kinesthesia ( Impaired Movement) Two-Point Impaired Discrimination Tactile Localization Impaired Stereognosis Impaired Left Leg Light Touch Absent Sharp/Dull Absent Deep Pressure Impaired Hot/Cold Impaired Protective Sensation Absent Proprioception ( Absent Position) Kinesthesia ( Impaired Movement) Two-Point Absent Discrimination Tactile Localization Absent Stereognosis Absent Comments Summary Comments B protective reflex vs sharp present Deep Tendon Reflex & Clonus Assessment Deep Tendon Reflex Right Achilles Deep Tendon Reflex 2+ Normal Right Patellar Deep Tendon Reflex 2+ Normal Left Achilles Deep Tendon Reflex 2+ Normal Left Patellar Deep Tendon Reflex 1+ Diminished Ankle Clonus Right Clonus Assessment Sustained Left Clonus Assessment Sustained Muscle Tone Tone Assessment Right Lower Extremity Flexor Tone Moderate Hypertonicity Description Extensor Tone Moderate Hypertonicity Description Left Lower Extremity Flexor Tone Moderate Hypertonicity Description Extensor Tone Moderate Hypertonicity Description PT-OP-J Posture/Palpation/Skin Start: 03/08/22 17:00 Freq: Status: Active Protocol: Document 10/20/24 15:20 DCW (Rec: 10/20/24 16:01 DCW [id number]) Posture Evaluation Comments Posture Comments Sitting EOB with good core control and no instability, uses UEs in lap for support. Recovers from directional pushing. Improved ability to reach outside of base of support. PT-OP-M Strength Start: 08/21/22 15:38 Freq: Status: Active Protocol: Document 10/20/24 15:20 DCW (Rec: 10/20/24 16:01 DCW [id number]) Shoulder Strength Shoulder Manual Muscle Testing Right Flexion 4+ Good+ Extension 4+ Good+ Abduction (C5) 4+ Good+ External Rotation 4 Good Internal Rotation 4+ Good+ Left Flexion 4+ Good+ Extension 4+ Good+ Abduction (C5) 4+ Good+ External Rotation 4 Good Internal Rotation 4+ Good+ Elbow/Forearm Strength Elbow and Forearm Manual Muscle Testing Right Flexion (C6) 4+ Good+ Extension (C7) 4+ Good+ Left Flexion (C6) 4+ Good+ Extension (C7) 4 Good Hip Strength Hip Manual Muscle Testing Right Flexion (L2) 1 Trace Extension (S1) 2- Poor- Adduction 2- Poor- Left Flexion (L2) 1 Trace Extension (S1) 2- Poor- Adduction 1 Trace Knee Strength Knee Manual Muscle Testing Right Flexion (S2) 2- Poor- Extension (L3) 1 Trace Left Flexion (S2) 2- Poor- Extension (L3) 1 Trace Ankle/Foot Strength Ankle and Foot Manual Muscle Testing Right Dorsiflexion (L4) 1 Trace Plantarflexion (S1) 2 Poor Left Plantarflexion (S1) 1 Trace PT-OP-Q Treatments Start: 03/08/22 17:00 Freq: Status: Active Protocol: Document 12/21/24 15:15 DCW (Rec: 12/21/24 15:52 DCW [id number]) Cardio Equipment Recumbent Stepper (Sci-Fit) Duration (Minutes) 10 Resistance 8 Seat Position Seat 10, Handles 9 Other Nu-Step Therapeutic Exercises Other Exercises short kneel Other Exercise Name short kneeling /c self thigh support Reps/Minutes before and after sets of push-ups Thread the needle Other Exercise Name Thread the needle on forearms/knees Side bilateral Reps/Minutes x10, x3 with overpressure at shoulder Comments cues for max reach, head follows hand Push-ups Other Exercise Name Push-up in quadruped Reps/Minutes x25, x20 quadruped child's pose Other Exercise Name Child's pose on forearms fwd Comments w/ overpressure at hips Therapeutic Activity Therapeutic Activity supine>prone>quadruped Name SBA: into quadruped<> L SL, heavy pt BUE support PT-OP-T Assessment and Plan Start: 03/08/22 17:00 Freq: Status: Active Protocol: Document 12/21/24 15:15 DCW (Rec: 12/21/24 15:52 DCW [id number]) Physical Therapy Assessment Goals Four Impairment Bilateral triceps weakness (R 4-, L 3+) Mission Planner Goal (LTG) Pt to demonstrate improved triceps strength to at least 4/5 bilaterally for elbow extension in order to improve transfer ability. LTG Duration 01/18/25 - Improving Three Impairment Pt does not have any motor function throughout bilateral LEs Short Term Goal (STG Pt to demonstrate 1/5 trace motor contraction in at ) least one quad in order to begin focus on LE mobility if neural functional return begins. STG Duration Met Assisted Goal (LTG) Pt to demonstrate right quad strength to at least 2/5, demonstrating movement into ROM in an antigravity position LTG Duration 01/18/25 Two Impairment Pt struggles with lateral transfer/scooting along EOB Assisted Goal (LTG) Pt to perform lateral scoot transfer using proper technique without any verbal cues 4x in a row. LTG Duration 01/18/25 One Impairment Pt does not have an appropriate home exercise program Short Term Goal (STG Pt to be independent and compliant with an appropriate ) HEP STG Duration 01/18/25 Assessment Summary Assessment Pt continues to progress with UE/triceps strengthening, improving quality of transfers. Feeling good stretch and mobility with table activities. Pt will likely continue to improve with UE strengthening and transfers , as well as w/c mobility. Physical Therapy Plan Frequency and Duration Frequency of 2x/Week Treatment Plan of Care Start 10/20/24 Date Plan of Care End 01/18/25 Date Therapeutic Interventions Therapeutic Aquatic Therapy,Balance Training,Coordination Training, Interventions Gait Training,Home Exercise Program,Manual Therapy, Neuromuscular Re-education,Orthotic/Prosthetic Management,Patient/Caregiver Education,Self-Care/Home Management,Sensory Integration,Soft Tissue Mobilization ,Therapeutic Activities,Therapeutic Exercises, Wheelchair Management Next Visit Focus/Plan Next Note Type Treatment Note Next Visit Plan Next: Prone with pillows under hips. Check w/ pt for options to access gym. core progression in hooklying or quadruped. Consider side planks and supine>sidelying bed mobility focus. Continue PT per POC: Continue L log roll, L SL> quadruped, Lateral transfers to elevated surfaces more trunk flexion/frequent scoots decreased assist, Wheelchair wheelies, curb management, POC: Continue UE and core strengthening, LE PROM and manual stretching. Transfers, mobility, LE ROM, pt will benefit from continued breakdown of transfers to improve efficiency and mechanics, as well as working on more seated balance EOB.
--- NOTE | 2024-12-23 16:08 | PT.OTN ---
Current Diagnoses Paraplegia, unspecified (12/23/24) Other specified personal risk factors, not elsewhere classified (12/23/24) Other specified postprocedural states (12/23/24) Physical Therapy Treatment Note PT-OP-A Visit Information Start: 03/08/22 17:00 Freq: Status: Active Protocol: Document 12/23/24 15:25 DCW (Rec: 12/23/24 16:08 DCW [id number]) Out-Patient Physical Therapy Visit Information Visit Information Visit Type Treatment Note Visit Note Late arrival Visit Start Time 15:25 Visit Stop Time 16:05 Visit Number [id number] Number of EXTENDED INSURANCE CLERK Visits 0 Progress Note Due 01/18/25 Evaluation Information Evaluation Date 03/08/22 PT-OP-B Current Condition Start: 03/08/22 17:00 Freq: Status: Active Protocol: Document 03/17/24 11:29 SAK (Rec: 03/17/24 12:23 SAK [id number]) Current Condition History of Current Condition Onset Date 12/16/21 Current Complaints Paraplegia History of Current Pt is a 71 year old male with a very unfortunate Condition medical history. Pt was hiking [employer] on 12/16/21 with a friend, finished up, drive back to his friend's home to drop him off, and noticed his left leg was collapsing. By the time pt drove home, both legs were giving out and numb. Pt was suddenly paralized from the waist down, was taken to the ED, and was flown to [facility] on 12/17/21. The following day, he underwent a laminectomy to relieve pressure from the thoracic epidural hematoma which had developed following his hike, which was pressing on his spinal cord. Following surgery, pt was in recovery for a week and was then transfered to rehab for 20 days, when he was finally discharged home in a wheelchair on 01/19/22. Pt reports his surgeon informed him that it is a possibility that he gets some return of nerve function. Has experienced some changes in his right LE, but has no motor function at this time from ~T10 down. Minimal sensory return on right side, none on left. Pt has been anxious to get in to therapy and do everything he can to help return to function. Pt's , who attended his evaluation, notes that she has been doing a lot of PROM in his legs at night to keep everything moving. Pt can feel some stretching during PROM in his right leg. Pt has additionally already started occupational therapy, and has been practicing some seated stabilization. Pt transfers with a slide board, but notes it is difficult to do into his car, because he has to transfer upward at an incline. PT-OP-C Subjective Start: 03/08/22 17:00 Freq: Status: Active Protocol: Document 12/23/24 15:25 DCW (Rec: 12/23/24 16:08 DCW [id number]) OP-PT Subjective Patient Comments Patient Comments Pt reports he went over to the [facility] to the [facility] to check out their equipment, is pretty happy with what he saw. Wants to look a [employer] as well. PT-OP-G Mobility & Gait Start: 03/08/22 17:00 Freq: Status: Active Protocol: Document 10/20/24 15:20 DCW (Rec: 10/20/24 16:01 DCW [id number]) OP Mobility Evaluation Transfers Bed to Chair Transfers using UE, improved with side-side movement, Transfers requires minimal verbal cues for LE positioning Car Transfers uses slide board, stabilizes front to back and prevent slide down board Functional Movements Other Functional Pt performs sit->supine->prone->quadruped with SBA 95% Movements of the time, requires Min Ax1 05%, typically with positioning of knees or feet, or getting up into quad from prone Wheelchair Management Type of Wheelchair Manual w/c Assessment Details Unable to perform tilt back to get over curb. Able to clear 2 obstacle 90% of the time. PT-OP-H Neuro Start: 03/08/22 17:00 Freq: Status: Active Protocol: Document 10/20/24 15:20 DCW (Rec: 10/20/24 16:01 DCW [id number]) Sensation Evaluation Gross Sensation Gross Sensation Left LE Impaired,Right LE Impaired,Trunk Impaired Sensation Paresthesia,Numbness,Tingling,Pins & [place],Burning Description Dermatome L1,L2,L3,L4,L5,S1,S2,S3,S4-5 Impairments Location Details Right Leg Light Touch Impaired Sharp/Dull Impaired Deep Pressure Intact/Normal Hot/Cold Absent Protective Sensation Absent Proprioception ( Impaired Position) Kinesthesia ( Impaired Movement) Two-Point Impaired Discrimination Tactile Localization Impaired Stereognosis Impaired Left Leg Light Touch Absent Sharp/Dull Absent Deep Pressure Impaired Hot/Cold Impaired Protective Sensation Absent Proprioception ( Absent Position) Kinesthesia ( Impaired Movement) Two-Point Absent Discrimination Tactile Localization Absent Stereognosis Absent Comments Summary Comments B protective reflex vs sharp present Deep Tendon Reflex & Clonus Assessment Deep Tendon Reflex Right Achilles Deep Tendon Reflex 2+ Normal Right Patellar Deep Tendon Reflex 2+ Normal Left Achilles Deep Tendon Reflex 2+ Normal Left Patellar Deep Tendon Reflex 1+ Diminished Ankle Clonus Right Clonus Assessment Sustained Left Clonus Assessment Sustained Muscle Tone Tone Assessment Right Lower Extremity Flexor Tone Moderate Hypertonicity Description Extensor Tone Moderate Hypertonicity Description Left Lower Extremity Flexor Tone Moderate Hypertonicity Description Extensor Tone Moderate Hypertonicity Description PT-OP-J Posture/Palpation/Skin Start: 03/08/22 17:00 Freq: Status: Active Protocol: Document 10/20/24 15:20 DCW (Rec: 10/20/24 16:01 DCW [id number]) Posture Evaluation Comments Posture Comments Sitting EOB with good core control and no instability, uses UEs in lap for support. Recovers from directional pushing. Improved ability to reach outside of base of support. PT-OP-M Strength Start: 08/21/22 15:38 Freq: Status: Active Protocol: Document 10/20/24 15:20 DCW (Rec: 10/20/24 16:01 DCW [id number]) Shoulder Strength Shoulder Manual Muscle Testing Right Flexion 4+ Good+ Extension 4+ Good+ Abduction (C5) 4+ Good+ External Rotation 4 Good Internal Rotation 4+ Good+ Left Flexion 4+ Good+ Extension 4+ Good+ Abduction (C5) 4+ Good+ External Rotation 4 Good Internal Rotation 4+ Good+ Elbow/Forearm Strength Elbow and Forearm Manual Muscle Testing Right Flexion (C6) 4+ Good+ Extension (C7) 4+ Good+ Left Flexion (C6) 4+ Good+ Extension (C7) 4 Good Hip Strength Hip Manual Muscle Testing Right Flexion (L2) 1 Trace Extension (S1) 2- Poor- Adduction 2- Poor- Left Flexion (L2) 1 Trace Extension (S1) 2- Poor- Adduction 1 Trace Knee Strength Knee Manual Muscle Testing Right Flexion (S2) 2- Poor- Extension (L3) 1 Trace Left Flexion (S2) 2- Poor- Extension (L3) 1 Trace Ankle/Foot Strength Ankle and Foot Manual Muscle Testing Right Dorsiflexion (L4) 1 Trace Plantarflexion (S1) 2 Poor Left Plantarflexion (S1) 1 Trace PT-OP-Q Treatments Start: 03/08/22 17:00 Freq: Status: Active Protocol: Document 12/23/24 15:25 DCW (Rec: 12/23/24 16:08 [facility] [id number]) Therapeutic Exercises Prone Exercises prone over 4 pillows Prone Exercise Name supported trunk extension, hip flexor stretch Equipment Used over 4 pillows, towel roll under forehead Other Exercises short kneel Other Exercise Name short kneeling /c self thigh support Reps/Minutes before and after sets of push-ups Thread the needle Other Exercise Name Thread the needle on forearms/knees Side bilateral Reps/Minutes x10 Comments cues for max reach, head follows hand Push-ups Other Exercise Name Push-up in quadruped Reps/Minutes x25, x20, x15, x10 Therapeutic Activity Therapeutic Activity supine>prone>quadruped Name SBA: into quadruped<> L SL, heavy pt BUE support PT-OP-T Assessment and Plan Start: 03/08/22 17:00 Freq: Status: Active Protocol: Document 12/23/24 15:25 DCW (Rec: 12/23/24 16:08 [facility] [id number]) Physical Therapy Assessment Impairments Impairments Activity Tolerance,Balance,Coordination,Functional Activities,Functional Mobility,Gait,Integument, Sensation,Soft Tissue Mobility,Strength,Tone,Transfers Goals Four Impairment Bilateral triceps weakness (R 4-, L 3+) Senior Care Goal (LTG) Pt to demonstrate improved triceps strength to at least 4/5 bilaterally for elbow extension in order to improve transfer ability. LTG Duration 01/18/25 - Improving Three Impairment Pt does not have any motor function throughout bilateral LEs Short Term Goal (STG Pt to demonstrate 1/5 trace motor contraction in at ) least one quad in order to begin focus on LE mobility if neural functional return begins. STG Duration Met Electrical Logging Operator Goal (LTG) Pt to demonstrate right quad strength to at least 2/5, demonstrating movement into ROM in an antigravity position LTG Duration 01/18/25 Two Impairment Pt struggles with lateral transfer/scooting along EOB Electrical Logging Operator Goal (LTG) Pt to perform lateral scoot transfer using proper technique without any verbal cues 4x in a row. LTG Duration 01/18/25 One Impairment Pt does not have an appropriate home exercise program Short Term Goal (STG Pt to be independent and compliant with an appropriate ) HEP STG Duration 01/18/25 Assessment Summary Assessment Tolerated well today, doing well with UE strengthening, transfers improving. Continue to core/UE strengthening ,. Bed mobility has returned to prior level following brief decline in mobility after an extended break from PT. Physical Therapy Plan Frequency and Duration Frequency of 2x/Week Treatment Plan of Care Start 10/20/24 Date Plan of Care End 01/18/25 Date Therapeutic Interventions Therapeutic Aquatic Therapy,Balance Training,Coordination Training, Interventions Gait Training,Home Exercise Program,Manual Therapy, Neuromuscular Re-education,Orthotic/Prosthetic Management,Patient/Caregiver Education,Self-Care/Home Management,Sensory Integration,Soft Tissue Mobilization ,Therapeutic Activities,Therapeutic Exercises, Wheelchair Management Next Visit Focus/Plan Next Note Type Treatment Note Next Visit Plan Next: Core progression in hook-lying or quadruped. Consider side planks and supine>side-lying bed mobility focus. Continue PT per POC: Continue L log roll, L SL> quadruped, Lateral transfers to elevated surfaces more trunk flexion/frequent scoots decreased assist, Wheelchair wheelies, curb management, POC: Continue UE and core strengthening, LE PROM and manual stretching. Transfers, mobility, LE ROM, pt will benefit from continued breakdown of transfers to improve efficiency and mechanics, as well as working on more seated balance EOB.
--- NOTE | 2024-12-30 15:13 | PT.OTN ---
Current Diagnoses Paraplegia, unspecified (12/30/24) Other specified personal risk factors, not elsewhere classified (12/30/24) Other specified postprocedural states (12/30/24) Physical Therapy Treatment Note PT-OP-A Visit Information Start: 03/08/22 17:00 Freq: Status: Active Protocol: Document 12/30/24 13:55 NBM (Rec: 12/30/24 15:10 NBM Laptop) Out-Patient Physical Therapy Visit Information Visit Information Visit Type Treatment Note Visit Start Time 13:55 Visit Stop Time 14:35 Visit Number [id number] Number of ANIMAL HUMANE AGENT SUPERVISOR Visits 1 Progress Note Due 01/18/25 Evaluation Information Evaluation Date 03/08/22 PT-OP-B Current Condition Start: 03/08/22 17:00 Freq: Status: Active Protocol: Document 12/28/24 14:27 SAK (Rec: 12/28/24 15:29 SAK Laptop) Current Condition History of Current Condition Onset Date 12/16/21 Current Complaints Paraplegia History of Current Pt is a 71 year old male with a very unfortunate Condition medical history. Pt was hiking [employer] on 12/16/21 with a friend, finished up, drive back to his friend's home to drop him off, and noticed his left leg was collapsing. By the time pt drove home, both legs were giving out and numb. Pt was suddenly paralized from the waist down, was taken to the ED, and was flown to [facility] on 12/17/21. The following day, he underwent a laminectomy to relieve pressure from the thoracic epidural hematoma which had developed following his hike, which was pressing on his spinal cord. Following surgery, pt was in recovery for a week and was then transfered to rehab for 20 days, when he was finally discharged home in a wheelchair on 01/19/22. Pt reports his surgeon informed him that it is a possibility that he gets some return of nerve function. Has experienced some changes in his right LE, but has no motor function at this time from ~T10 down. Minimal sensory return on right side, none on left. Pt has been anxious to get in to therapy and do everything he can to help return to function. Pt's , who attended his evaluation, notes that she has been doing a lot of PROM in his legs at night to keep everything moving. Pt can feel some stretching during PROM in his right leg. Pt has additionally already started occupational therapy, and has been practicing some seated stabilization. Pt transfers with a slide board, but notes it is difficult to do into his car, because he has to transfer upward at an incline. PT-OP-C Subjective Start: 03/08/22 17:00 Freq: Status: Active Protocol: Document 12/30/24 13:55 NBM (Rec: 12/30/24 15:10 NBM Laptop) OP-PT Subjective Patient Comments Patient Comments Toby reports he left voicemail this morning for Terese Reyes PTA, about aquatic therapy, and backup plan is to use gym with adjunct trainer or else his to help with exercises. He hasn't visited [facility] yet. He wants a stronger core to be more stable in chairs. He's been using stander but when feet are straightened trunk bends forward. His upholstered goods crafter said his L eye has burst blood vessel and will heal in a week, but he'll need a laser procedure for inflammation for that eye. PT-OP-G Mobility & Gait Start: 03/08/22 17:00 Freq: Status: Active Protocol: Document 10/20/24 15:20 DCW (Rec: 10/20/24 16:01 DCW [id number]) OP Mobility Evaluation Transfers Bed to Chair Transfers using UE, improved with side-side movement, Transfers requires minimal verbal cues for LE positioning Car Transfers uses slide board, stabilizes front to back and prevent slide down board Functional Movements Other Functional Pt performs sit->supine->prone->quadruped with SBA 95% Movements of the time, requires Min Ax1 05%, typically with positioning of knees or feet, or getting up into quad from prone Wheelchair Management Type of Wheelchair Manual w/c Assessment Details Unable to perform tilt back to get over curb. Able to clear 2 obstacle 90% of the time. PT-OP-H Neuro Start: 03/08/22 17:00 Freq: Status: Active Protocol: Document 10/20/24 15:20 DCW (Rec: 10/20/24 16:01 DCW [id number]) Sensation Evaluation Gross Sensation Gross Sensation Left LE Impaired,Right LE Impaired,Trunk Impaired Sensation Paresthesia,Numbness,Tingling,Pins & [place],Burning Description Dermatome L1,L2,L3,L4,L5,S1,S2,S3,S4-5 Impairments Location Details Right Leg Light Touch Impaired Sharp/Dull Impaired Deep Pressure Intact/Normal Hot/Cold Absent Protective Sensation Absent Proprioception ( Impaired Position) Kinesthesia ( Impaired Movement) Two-Point Impaired Discrimination Tactile Localization Impaired Stereognosis Impaired Left Leg Light Touch Absent Sharp/Dull Absent Deep Pressure Impaired Hot/Cold Impaired Protective Sensation Absent Proprioception ( Absent Position) Kinesthesia ( Impaired Movement) Two-Point Absent Discrimination Tactile Localization Absent Stereognosis Absent Comments Summary Comments B protective reflex vs sharp present Deep Tendon Reflex & Clonus Assessment Deep Tendon Reflex Right Achilles Deep Tendon Reflex 2+ Normal Right Patellar Deep Tendon Reflex 2+ Normal Left Achilles Deep Tendon Reflex 2+ Normal Left Patellar Deep Tendon Reflex 1+ Diminished Ankle Clonus Right Clonus Assessment Sustained Left Clonus Assessment Sustained Muscle Tone Tone Assessment Right Lower Extremity Flexor Tone Moderate Hypertonicity Description Extensor Tone Moderate Hypertonicity Description Left Lower Extremity Flexor Tone Moderate Hypertonicity Description Extensor Tone Moderate Hypertonicity Description PT-OP-J Posture/Palpation/Skin Start: 03/08/22 17:00 Freq: Status: Active Protocol: Document 10/20/24 15:20 DCW (Rec: 10/20/24 16:01 DCW [id number]) Posture Evaluation Comments Posture Comments Sitting EOB with good core control and no instability, uses UEs in lap for support. Recovers from directional pushing. Improved ability to reach outside of base of support. PT-OP-M Strength Start: 08/21/22 15:38 Freq: Status: Active Protocol: Document 10/20/24 15:20 DCW (Rec: 10/20/24 16:01 DCW [id number]) Shoulder Strength Shoulder Manual Muscle Testing Right Flexion 4+ Good+ Extension 4+ Good+ Abduction (C5) 4+ Good+ External Rotation 4 Good Internal Rotation 4+ Good+ Left Flexion 4+ Good+ Extension 4+ Good+ Abduction (C5) 4+ Good+ External Rotation 4 Good Internal Rotation 4+ Good+ Elbow/Forearm Strength Elbow and Forearm Manual Muscle Testing Right Flexion (C6) 4+ Good+ Extension (C7) 4+ Good+ Left Flexion (C6) 4+ Good+ Extension (C7) 4 Good Hip Strength Hip Manual Muscle Testing Right Flexion (L2) 1 Trace Extension (S1) 2- Poor- Adduction 2- Poor- Left Flexion (L2) 1 Trace Extension (S1) 2- Poor- Adduction 1 Trace Knee Strength Knee Manual Muscle Testing Right Flexion (S2) 2- Poor- Extension (L3) 1 Trace Left Flexion (S2) 2- Poor- Extension (L3) 1 Trace Ankle/Foot Strength Ankle and Foot Manual Muscle Testing Right Dorsiflexion (L4) 1 Trace Plantarflexion (S1) 2 Poor Left Plantarflexion (S1) 1 Trace PT-OP-Q Treatments Start: 03/08/22 17:00 Freq: Status: Active Protocol: Document 12/30/24 13:55 NBM (Rec: 12/30/24 15:10 NBM Laptop) Gym Equipment Cable Column (Body Solid) lateral pulldown Details Lat Pulldown Resistance 70# 2x12 Reps/Time occ vc for breath Therapeutic Exercises Prone Exercises prone Serratus press elbows Equipment Used 4 pillows under ribcage/chest Reps/Minutes x8 Comments cued head lift prone over 4 pillows Prone Exercise Name supported trunk extension, hip flexor stretch Equipment Used over 4 pillows, towel roll under forehead Sidelying Exercises Open book Sidelying Exercise Open book - not today, next session Name Side bilateral Equipment Used manual pelvic stabilization, manual hip abd stretch on R>L Reps/Minutes x10 AROM, 1 min hold stretch w/ overpressure Comments vc for head to follow hand Other Exercises short kneel Other Exercise Name short kneeling /c self thigh support Reps/Minutes before and after sets of push-ups Thread the needle Other Exercise Name Thread the needle on forearms/knees Side bilateral Reps/Minutes x5, x10 w/ overpressure at shoulder, x5 overpressure at hips Comments cues for max reach, head follows hand,, cues for deep breath Push-ups Other Exercise Name Push-up in quadruped, hands under shoulders Equipment Used des' pose stretch w/ overpressure at pelvis in between sets Reps/Minutes 2 x 15 Comments pt self heavy support BUEs quadruped child's pose Other Exercise Name Child's pose on forearms fwd Comments w/ overpressure at hips quadruped Other Exercise Name dumbell pull-through Side bilateral Resistance 5# DB Equipment Used TrA, breathwork Reps/Minutes 3x8 Comments child's pose rest between sets, balance more challenged w/ LUE pull-through Therapeutic Activity Therapeutic Activity squat/lateral scoot transfer Name squat pivot transfer Reps/Minutes x1 ea Comments w/c<>mat table. close SBA. Pt demos transfer with feet crossed even when cued. Edu to pt for improved stability and safety with feet positioned flat before initiating transfer. supine>prone>quadruped Name SBA: into quadruped<> L SL, heavy pt BUE support Comments pt achieves each position fairly quickly without cueing . PT-OP-T Assessment and Plan Start: 03/08/22 17:00 Freq: Status: Active Protocol: Document 12/30/24 13:55 NBM (Rec: 12/30/24 15:10 NBM Laptop) Physical Therapy Assessment Goals Four Impairment Bilateral triceps weakness (R 4-, L 3+) Care Home Goal (LTG) Pt to demonstrate improved triceps strength to at least 4/5 bilaterally for elbow extension in order to improve transfer ability. LTG Duration 01/18/25 - Improving Three Impairment Pt does not have any motor function throughout bilateral LEs Short Term Goal (STG Pt to demonstrate 1/5 trace motor contraction in at ) least one quad in order to begin focus on LE mobility if neural functional return begins. STG Duration Met Care Home Goal (LTG) Pt to demonstrate right quad strength to at least 2/5, demonstrating movement into ROM in an antigravity position LTG Duration 01/18/25 Two Impairment Pt struggles with lateral transfer/scooting along EOB Cashier Associate Goal (LTG) Pt to perform lateral scoot transfer using proper technique without any verbal cues 4x in a row. LTG Duration 01/18/25 One Impairment Pt does not have an appropriate home exercise program Short Term Goal (STG Pt to be independent and compliant with an appropriate ) HEP STG Duration 01/18/25 Assessment Summary Assessment Treatment focus on upper extremity and core strengthening w/ breathwork. Toby is challenged with maintaining 3-pt balance w/ LUE>RUE during 5# dumbbell pull-through in quadruped. He chooses to perform squat pivot transfer from edge of mat table to wheelchair with feet crossed and is educated on increased stability and safety with feet planted for transfers. Physical Therapy Plan Frequency and Duration Frequency of 2x/Week Treatment Plan of Care Start 10/20/24 Date Plan of Care End 01/18/25 Date Therapeutic Interventions Therapeutic Aquatic Therapy,Balance Training,Coordination Training, Interventions Gait Training,Home Exercise Program,Manual Therapy, Neuromuscular Re-education,Orthotic/Prosthetic Management,Patient/Caregiver Education,Self-Care/Home Management,Sensory Integration,Soft Tissue Mobilization ,Therapeutic Activities,Therapeutic Exercises, Wheelchair Management Next Visit Focus/Plan Next Note Type Treatment Note Next Visit Plan Next: Seated core stabilization, Core progression in hook-lying or quadruped. Consider side planks and supine>side-lying bed mobility focus. Continue PT per POC: Continue L log roll, L SL> quadruped, Lateral transfers to elevated surfaces more trunk flexion/frequent scoots decreased assist, Wheelchair wheelies, curb management, POC: Continue UE and core strengthening, LE PROM and manual stretching. Transfers, mobility, LE ROM, pt will benefit from continued breakdown of transfers to improve efficiency and mechanics, as well as working on more seated balance EOB.
--- NOTE | 2025-01-04 16:25 | PT.OTN ---
Current Diagnoses Paraplegia, unspecified (01/04/25) Other specified personal risk factors, not elsewhere classified (01/04/25) Other specified postprocedural states (01/04/25) Physical Therapy Treatment Note PT-OP-A Visit Information Start: 03/08/22 17:00 Freq: Status: Active Protocol: Document 01/04/25 14:29 NBM (Rec: 01/04/25 16:25 NBM Laptop) Out-Patient Physical Therapy Visit Information Visit Information Visit Type Treatment Note Visit Start Time 14:34 Visit Stop Time 15:25 Visit Number [id number] Number of STUD DAIRY CATTLE FARMER Visits 2 Progress Note Due 01/18/25 PT-OP-B Current Condition Start: 03/08/22 17:00 Freq: Status: Active Protocol: Document 12/28/24 14:27 SAK (Rec: 12/28/24 15:29 SAK Laptop) Current Condition History of Current Condition Onset Date 12/16/21 Current Complaints Paraplegia History of Current Pt is a 71 year old male with a very unfortunate Condition medical history. Pt was hiking [employer] on 12/16/21 with a friend, finished up, drive back to his friend's home to drop him off, and noticed his left leg was collapsing. By the time pt drove home, both legs were giving out and numb. Pt was suddenly paralized from the waist down, was taken to the ED, and was flown to [facility] on 12/17/21. The following day, he underwent a laminectomy to relieve pressure from the thoracic epidural hematoma which had developed following his hike, which was pressing on his spinal cord. Following surgery, pt was in recovery for a week and was then transfered to rehab for 20 days, when he was finally discharged home in a wheelchair on 01/19/22. Pt reports his surgeon informed him that it is a possibility that he gets some return of nerve function. Has experienced some changes in his right LE, but has no motor function at this time from ~T10 down. Minimal sensory return on right side, none on left. Pt has been anxious to get in to therapy and do everything he can to help return to function. Pt's , who attended his evaluation, notes that she has been doing a lot of PROM in his legs at night to keep everything moving. Pt can feel some stretching during PROM in his right leg. Pt has additionally already started occupational therapy, and has been practicing some seated stabilization. Pt transfers with a slide board, but notes it is difficult to do into his car, because he has to transfer upward at an incline. PT-OP-C Subjective Start: 03/08/22 17:00 Freq: Status: Active Protocol: Document 01/04/25 14:29 NBM (Rec: 01/04/25 16:25 NBM Laptop) OP-PT Subjective Patient Comments Patient Comments Toby reports spouse refuses [facility], and he has not heard back about aquatic therapy so will stop by there today to check. PT-OP-G Mobility & Gait Start: 03/08/22 17:00 Freq: Status: Active Protocol: Document 10/20/24 15:20 DCW (Rec: 10/20/24 16:01 DCW [id number]) OP Mobility Evaluation Transfers Bed to Chair Transfers using UE, improved with side-side movement, Transfers requires minimal verbal cues for LE positioning Car Transfers uses slide board, stabilizes front to back and prevent slide down board Functional Movements Other Functional Pt performs sit->supine->prone->quadruped with SBA 95% Movements of the time, requires Min Ax1 05%, typically with positioning of knees or feet, or getting up into quad from prone Wheelchair Management Type of Wheelchair Manual w/c Assessment Details Unable to perform tilt back to get over curb. Able to clear 2 obstacle 90% of the time. PT-OP-H Neuro Start: 03/08/22 17:00 Freq: Status: Active Protocol: Document 10/20/24 15:20 DCW (Rec: 10/20/24 16:01 DCW [id number]) Sensation Evaluation Gross Sensation Gross Sensation Left LE Impaired,Right LE Impaired,Trunk Impaired Sensation Paresthesia,Numbness,Tingling,Pins & [place],Burning Description Dermatome L1,L2,L3,L4,L5,S1,S2,S3,S4-5 Impairments Location Details Right Leg Light Touch Impaired Sharp/Dull Impaired Deep Pressure Intact/Normal Hot/Cold Absent Protective Sensation Absent Proprioception ( Impaired Position) Kinesthesia ( Impaired Movement) Two-Point Impaired Discrimination Tactile Localization Impaired Stereognosis Impaired Left Leg Light Touch Absent Sharp/Dull Absent Deep Pressure Impaired Hot/Cold Impaired Protective Sensation Absent Proprioception ( Absent Position) Kinesthesia ( Impaired Movement) Two-Point Absent Discrimination Tactile Localization Absent Stereognosis Absent Comments Summary Comments B protective reflex vs sharp present Deep Tendon Reflex & Clonus Assessment Deep Tendon Reflex Right Achilles Deep Tendon Reflex 2+ Normal Right Patellar Deep Tendon Reflex 2+ Normal Left Achilles Deep Tendon Reflex 2+ Normal Left Patellar Deep Tendon Reflex 1+ Diminished Ankle Clonus Right Clonus Assessment Sustained Left Clonus Assessment Sustained Muscle Tone Tone Assessment Right Lower Extremity Flexor Tone Moderate Hypertonicity Description Extensor Tone Moderate Hypertonicity Description Left Lower Extremity Flexor Tone Moderate Hypertonicity Description Extensor Tone Moderate Hypertonicity Description PT-OP-J Posture/Palpation/Skin Start: 03/08/22 17:00 Freq: Status: Active Protocol: Document 10/20/24 15:20 DCW (Rec: 10/20/24 16:01 DCW [id number]) Posture Evaluation Comments Posture Comments Sitting EOB with good core control and no instability, uses UEs in lap for support. Recovers from directional pushing. Improved ability to reach outside of base of support. PT-OP-M Strength Start: 08/21/22 15:38 Freq: Status: Active Protocol: Document 10/20/24 15:20 DCW (Rec: 10/20/24 16:01 [facility] [id number]) Shoulder Strength Shoulder Manual Muscle Testing Right Flexion 4+ Good+ Extension 4+ Good+ Abduction (C5) 4+ Good+ External Rotation 4 Good Internal Rotation 4+ Good+ Left Flexion 4+ Good+ Extension 4+ Good+ Abduction (C5) 4+ Good+ External Rotation 4 Good Internal Rotation 4+ Good+ Elbow/Forearm Strength Elbow and Forearm Manual Muscle Testing Right Flexion (C6) 4+ Good+ Extension (C7) 4+ Good+ Left Flexion (C6) 4+ Good+ Extension (C7) 4 Good Hip Strength Hip Manual Muscle Testing Right Flexion (L2) 1 Trace Extension (S1) 2- Poor- Adduction 2- Poor- Left Flexion (L2) 1 Trace Extension (S1) 2- Poor- Adduction 1 Trace Knee Strength Knee Manual Muscle Testing Right Flexion (S2) 2- Poor- Extension (L3) 1 Trace Left Flexion (S2) 2- Poor- Extension (L3) 1 Trace Ankle/Foot Strength Ankle and Foot Manual Muscle Testing Right Dorsiflexion (L4) 1 Trace Plantarflexion (S1) 2 Poor Left Plantarflexion (S1) 1 Trace PT-OP-Q Treatments Start: 03/08/22 17:00 Freq: Status: Active Protocol: Document 01/04/25 14:29 NBM (Rec: 01/04/25 16:25 NBM Laptop) Cardio Equipment Recumbent Elliptical (NuStep) Duration (Minutes) 10 Resistance 8-11 Seat Position 10 Other Arms lvl 9, strap above knees for LE alignment Gym Equipment Cable Column (Body Solid) lateral pulldown Details Lat Pulldown Resistance 70# x15, x12 Therapeutic Exercises Sidelying Exercises Open book Sidelying Exercise Open book - not today, next session Name Side bilateral Equipment Used manual pelvic stabilization, manual hip abd stretch on R>L Reps/Minutes x10 AROM, 1 min hold stretch w/ overpressure Comments vc for head to follow hand Other Exercises semi-reclined Other Exercise Name semi-reclined sit ups Equipment Used from [employer] Reps/Minutes x6 Comments eccentric sit back, mod>no assist as pt sits up; vc to reach fwd, breathe quadruped child's pose Other Exercise Name Child's pose on forearms fwd Comments w/ overpressure at hips quadruped Other Exercise Name dumbell pull-through Side bilateral Resistance 5# DB Equipment Used TrA, breathwork Reps/Minutes forearms x8, hands x8 (to fatigue) Comments child's pose rest between sets, more challenged w/ LUE pull-thru on hands Therapeutic Activity Therapeutic Activity Log roll, SL scoot Comments -B SL lateral scoot trunk, to get away from EOB to allow roll into supine. SBA to Log roll supine> L SL squat/lateral scoot transfer Name squat pivot transfer Reps/Minutes x2 ea Comments w/c<>mat table. close SBA. Pt initiates transfer with R foot on equipment. Safety cue to pt for improved stability and safety with feet positioned flat before initiating transfer. supine>prone>quadruped Name SBA>Derrek: into quadruped<> L SL, heavy pt BUE support Comments medium black hi-lo table Neuro Re-Education Treatment Balance Activities Seated balance Details core focus, min>modA for balance recovery from post LOB Equipment hi-lo table, 2 foam, 2# WW, PVC, balloon, GB Comments balls of feet on floor: 1. uprighting with perturbations applied in all planes/ directions (UE support at side on table> hands in lap) foam under feet: 1. sitting up 2. semi-reclined into sit up balloon volley /c PVC, 2# WW B outside KIARA w aide, CGA> modA for post LOB recovery PT-OP-T Assessment and Plan Start: 03/08/22 17:00 Freq: Status: Active Protocol: Document 01/04/25 14:29 NBM (Rec: 01/04/25 16:25 NBM Laptop) Physical Therapy Assessment Goals Four Impairment Bilateral triceps weakness (R 4-, L 3+) Continuous Improvement Coordinator Goal (LTG) Pt to demonstrate improved triceps strength to at least 4/5 bilaterally for elbow extension in order to improve transfer ability. LTG Duration 01/18/25 - Improving Three Impairment Pt does not have any motor function throughout bilateral LEs Short Term Goal (STG Pt to demonstrate 1/5 trace motor contraction in at ) least one quad in order to begin focus on LE mobility if neural functional return begins. STG Duration Met Group Home Goal (LTG) Pt to demonstrate right quad strength to at least 2/5, demonstrating movement into ROM in an antigravity position LTG Duration 01/18/25 Two Impairment Pt struggles with lateral transfer/scooting along EOB Group Home Goal (LTG) Pt to perform lateral scoot transfer using proper technique without any verbal cues 4x in a row. LTG Duration 01/18/25 One Impairment Pt does not have an appropriate home exercise program Short Term Goal (STG Pt to be independent and compliant with an appropriate ) HEP STG Duration 01/18/25 Assessment Summary Assessment Treatment focus on squat pivot transfers with no assist , UE and core strengthening. Significant time spent w/ pt maneuvering own LEs into recumbent elliptical and trial of strap around forefoot without success, and pt encouraged to continue checking for assistance options for accessing equipment at gym. Sabine requires one safety cue for foot positioning before initiating transfer. He demos improving UE strength with increased reps of lateral pulldown 70#, and is challenged with core stability, with occasional seated posterior loss of balance requiring min>modA for recovery when challenged outside base of support. Physical Therapy Plan Frequency and Duration Frequency of 2x/Week Treatment Plan of Care Start 10/20/24 Date Plan of Care End 01/18/25 Date Therapeutic Interventions Therapeutic Aquatic Therapy,Balance Training,Coordination Training, Interventions Gait Training,Home Exercise Program,Manual Therapy, Neuromuscular Re-education,Orthotic/Prosthetic Management,Patient/Caregiver Education,Self-Care/Home Management,Sensory Integration,Soft Tissue Mobilization ,Therapeutic Activities,Therapeutic Exercises, Wheelchair Management Next Visit Focus/Plan Next Note Type Treatment Note Next Visit Plan Next: Seated core stabilization, Core progression in hook-lying or quadruped. Consider side planks and supine>side-lying bed mobility focus. Continue PT per POC: Continue L log roll, L SL> quadruped, Lateral transfers to elevated surfaces more trunk flexion/frequent scoots decreased assist, Wheelchair wheelies, curb management, POC: Continue UE and core strengthening, LE PROM and manual stretching. Transfers, mobility, LE ROM, pt will benefit from continued breakdown of transfers to improve efficiency and mechanics, as well as working on more seated balance EOB.
--- NOTE | 2025-01-07 16:09 | PT.OTN ---
Current Diagnoses Paraplegia, unspecified (01/07/25) Other specified personal risk factors, not elsewhere classified (01/07/25) Other specified postprocedural states (01/07/25) Physical Therapy Treatment Note PT-OP-A Visit Information Start: 03/08/22 17:00 Freq: Status: Active Protocol: Document 01/07/25 15:22 DCW (Rec: 01/07/25 16:09 DCW [id number]) Out-Patient Physical Therapy Visit Information Visit Information Visit Type Treatment Note Visit Start Time 15:22 Visit Stop Time 16:05 Visit Number [id number] Number of TELEGRAPHIC TYPEWRITER INSTALLER Visits 0 Progress Note Due 01/18/25 Evaluation Information Evaluation Date 03/08/22 PT-OP-B Current Condition Start: 03/08/22 17:00 Freq: Status: Active Protocol: Document 12/28/24 14:27 SAK (Rec: 12/28/24 15:29 SAK Laptop) Current Condition History of Current Condition Onset Date 12/16/21 Current Complaints Paraplegia History of Current Pt is a 71 year old male with a very unfortunate Condition medical history. Pt was hiking [email or web address] on 12/16/21 with a friend, finished up, drive back to his friend's home to drop him off, and noticed his left leg was collapsing. By the time pt drove home, both legs were giving out and numb. Pt was suddenly paralized from the waist down, was taken to the ED, and was flown to [facility] on 12/17/21. The following day, he underwent a laminectomy to relieve pressure from the thoracic epidural hematoma which had developed following his hike, which was pressing on his spinal cord. Following surgery, pt was in recovery for a week and was then transfered to rehab for 20 days, when he was finally discharged home in a wheelchair on 01/19/22. Pt reports his surgeon informed him that it is a possibility that he gets some return of nerve function. Has experienced some changes in his right LE, but has no motor function at this time from ~T10 down. Minimal sensory return on right side, none on left. Pt has been anxious to get in to therapy and do everything he can to help return to function. Pt's , who attended his evaluation, notes that she has been doing a lot of PROM in his legs at night to keep everything moving. Pt can feel some stretching during PROM in his right leg. Pt has additionally already started occupational therapy, and has been practicing some seated stabilization. Pt transfers with a slide board, but notes it is difficult to do into his car, because he has to transfer upward at an incline. PT-OP-C Subjective Start: 03/08/22 17:00 Freq: Status: Active Protocol: Document 01/07/25 15:22 DCW (Rec: 01/07/25 16:09 DCW [id number]) OP-PT Subjective Patient Comments Patient Comments Pt reports that he got a referral to start aquatic therapy, hoping to get started there following discharge from PT here. PT-OP-G Mobility & Gait Start: 03/08/22 17:00 Freq: Status: Active Protocol: Document 10/20/24 15:20 DCW (Rec: 10/20/24 16:01 DCW [id number]) OP Mobility Evaluation Transfers Bed to Chair Transfers using UE, improved with side-side movement, Transfers requires minimal verbal cues for LE positioning Car Transfers uses slide board, stabilizes front to back and prevent slide down board Functional Movements Other Functional Pt performs sit->supine->prone->quadruped with SBA 95% Movements of the time, requires Min Ax1 05%, typically with positioning of knees or feet, or getting up into quad from prone Wheelchair Management Type of Wheelchair Manual w/c Assessment Details Unable to perform tilt back to get over curb. Able to clear 2 obstacle 90% of the time. PT-OP-H Neuro Start: 03/08/22 17:00 Freq: Status: Active Protocol: Document 10/20/24 15:20 DCW (Rec: 10/20/24 16:01 DCW [id number]) Sensation Evaluation Gross Sensation Gross Sensation Left LE Impaired,Right LE Impaired,Trunk Impaired Sensation Paresthesia,Numbness,Tingling,Pins & [place],Burning Description Dermatome L1,L2,L3,L4,L5,S1,S2,S3,S4-5 Impairments Location Details Right Leg Light Touch Impaired Sharp/Dull Impaired Deep Pressure Intact/Normal Hot/Cold Absent Protective Sensation Absent Proprioception ( Impaired Position) Kinesthesia ( Impaired Movement) Two-Point Impaired Discrimination Tactile Localization Impaired Stereognosis Impaired Left Leg Light Touch Absent Sharp/Dull Absent Deep Pressure Impaired Hot/Cold Impaired Protective Sensation Absent Proprioception ( Absent Position) Kinesthesia ( Impaired Movement) Two-Point Absent Discrimination Tactile Localization Absent Stereognosis Absent Comments Summary Comments B protective reflex vs sharp present Deep Tendon Reflex & Clonus Assessment Deep Tendon Reflex Right Achilles Deep Tendon Reflex 2+ Normal Right Patellar Deep Tendon Reflex 2+ Normal Left Achilles Deep Tendon Reflex 2+ Normal Left Patellar Deep Tendon Reflex 1+ Diminished Ankle Clonus Right Clonus Assessment Sustained Left Clonus Assessment Sustained Muscle Tone Tone Assessment Right Lower Extremity Flexor Tone Moderate Hypertonicity Description Extensor Tone Moderate Hypertonicity Description Left Lower Extremity Flexor Tone Moderate Hypertonicity Description Extensor Tone Moderate Hypertonicity Description PT-OP-J Posture/Palpation/Skin Start: 03/08/22 17:00 Freq: Status: Active Protocol: Document 10/20/24 15:20 DCW (Rec: 10/20/24 16:01 DCW [id number]) Posture Evaluation Comments Posture Comments Sitting EOB with good core control and no instability, uses UEs in lap for support. Recovers from directional pushing. Improved ability to reach outside of base of support. PT-OP-M Strength Start: 08/21/22 15:38 Freq: Status: Active Protocol: Document 10/20/24 15:20 DCW (Rec: 10/20/24 16:01 DCW [id number]) Shoulder Strength Shoulder Manual Muscle Testing Right Flexion 4+ Good+ Extension 4+ Good+ Abduction (C5) 4+ Good+ External Rotation 4 Good Internal Rotation 4+ Good+ Left Flexion 4+ Good+ Extension 4+ Good+ Abduction (C5) 4+ Good+ External Rotation 4 Good Internal Rotation 4+ Good+ Elbow/Forearm Strength Elbow and Forearm Manual Muscle Testing Right Flexion (C6) 4+ Good+ Extension (C7) 4+ Good+ Left Flexion (C6) 4+ Good+ Extension (C7) 4 Good Hip Strength Hip Manual Muscle Testing Right Flexion (L2) 1 Trace Extension (S1) 2- Poor- Adduction 2- Poor- Left Flexion (L2) 1 Trace Extension (S1) 2- Poor- Adduction 1 Trace Knee Strength Knee Manual Muscle Testing Right Flexion (S2) 2- Poor- Extension (L3) 1 Trace Left Flexion (S2) 2- Poor- Extension (L3) 1 Trace Ankle/Foot Strength Ankle and Foot Manual Muscle Testing Right Dorsiflexion (L4) 1 Trace Plantarflexion (S1) 2 Poor Left Plantarflexion (S1) 1 Trace PT-OP-Q Treatments Start: 03/08/22 17:00 Freq: Status: Active Protocol: Document 01/07/25 15:22 DCW (Rec: 01/07/25 16:09 DCW [id number]) Cardio Equipment Recumbent Elliptical (NuStep) Duration (Minutes) 10 Resistance 8 Seat Position 10 Other Arms lvl 9, strap above knees for LE alignment Therapeutic Exercises Other Exercises Push-ups Other Exercise Name Push-up in quadruped, hands under shoulders Reps/Minutes x26, x15, x15, x10 Comments pt self heavy support BUEs quadruped Other Exercise Name dumbell pull-through Side bilateral Resistance 5# DB Equipment Used TrA, breathwork Reps/Minutes hands x8 (to fatigue) Comments child's pose rest between sets, more challenged w/ LUE pull-thru on hands PT-OP-T Assessment and Plan Start: 03/08/22 17:00 Freq: Status: Active Protocol: Document 01/07/25 15:22 DCW (Rec: 01/07/25 16:09 DCW [id number]) Physical Therapy Assessment Goals Four Impairment Bilateral triceps weakness (R 4-, L 3+) Paraprofessional Education Assistant Goal (LTG) Pt to demonstrate improved triceps strength to at least 4/5 bilaterally for elbow extension in order to improve transfer ability. LTG Duration 01/18/25 - Improving Three Impairment Pt does not have any motor function throughout bilateral LEs Short Term Goal (STG Pt to demonstrate 1/5 trace motor contraction in at ) least one quad in order to begin focus on LE mobility if neural functional return begins. STG Duration Met Paraprofessional Education Assistant Goal (LTG) Pt to demonstrate right quad strength to at least 2/5, demonstrating movement into ROM in an antigravity position LTG Duration 01/18/25 Two Impairment Pt struggles with lateral transfer/scooting along EOB Skilled Nursing Goal (LTG) Pt to perform lateral scoot transfer using proper technique without any verbal cues 4x in a row. LTG Duration 01/18/25 One Impairment Pt does not have an appropriate home exercise program Short Term Goal (STG Pt to be independent and compliant with an appropriate ) HEP STG Duration 01/18/25 Assessment Summary Assessment Pt preparing for upcoming discharge, plans for aquatic therapy and joining a gym. Feeling more confident about the future. Continue to focus on balance, strengthening, transfers, UE function, and mobility. Physical Therapy Plan Frequency and Duration Frequency of 2x/Week Treatment Plan of Care Start 10/20/24 Date Plan of Care End 01/18/25 Date Therapeutic Interventions Therapeutic Aquatic Therapy,Balance Training,Coordination Training, Interventions Gait Training,Home Exercise Program,Manual Therapy, Neuromuscular Re-education,Orthotic/Prosthetic Management,Patient/Caregiver Education,Self-Care/Home Management,Sensory Integration,Soft Tissue Mobilization ,Therapeutic Activities,Therapeutic Exercises, Wheelchair Management Next Visit Focus/Plan Next Note Type Treatment Note Next Visit Plan Next: Seated core stabilization, Core progression in hook-lying or quadruped. Consider side planks and supine>side-lying bed mobility focus. Continue PT per POC: Continue L log roll, L SL> quadruped, Lateral transfers to elevated surfaces more trunk flexion/frequent scoots decreased assist, Wheelchair wheelies, curb management, POC: Continue UE and core strengthening, LE PROM and manual stretching. Transfers, mobility, LE ROM, pt will benefit from continued breakdown of transfers to improve efficiency and mechanics, as well as working on more seated balance EOB.
--- NOTE | 2025-01-11 17:44 | PT.OTN ---
Current Diagnoses Paraplegia, unspecified (01/11/25) Other specified personal risk factors, not elsewhere classified (01/11/25) Other specified postprocedural states (01/11/25) Physical Therapy Treatment Note PT-OP-A Visit Information Start: 03/08/22 17:00 Freq: Status: Active Protocol: Document 01/11/25 17:02 DCW (Rec: 01/11/25 17:44 DCW [id number]) Out-Patient Physical Therapy Visit Information Visit Information Visit Type Treatment Note Visit Start Time 17:02 Visit Stop Time 17:45 Visit Number [id number] Number of CONTRACTING OFFICER Visits 0 Progress Note Due 01/18/25 Evaluation Information Evaluation Date 03/08/22 PT-OP-B Current Condition Start: 03/08/22 17:00 Freq: Status: Active Protocol: Document 12/28/24 14:27 SAK (Rec: 12/28/24 15:29 SAK Laptop) Current Condition History of Current Condition Onset Date 12/16/21 Current Complaints Paraplegia History of Current Pt is a 71 year old male with a very unfortunate Condition medical history. Pt was hiking [place] on 12/16/21 with a friend, finished up, drive back to his friend's home to drop him off, and noticed his left leg was collapsing. By the time pt drove home, both legs were giving out and numb. Pt was suddenly paralized from the waist down, was taken to the ED, and was flown to [facility] on 12/17/21. The following day, he underwent a laminectomy to relieve pressure from the thoracic epidural hematoma which had developed following his hike, which was pressing on his spinal cord. Following surgery, pt was in recovery for a week and was then transfered to rehab for 20 days, when he was finally discharged home in a wheelchair on 01/19/22. Pt reports his surgeon informed him that it is a possibility that he gets some return of nerve function. Has experienced some changes in his right LE, but has no motor function at this time from ~T10 down. Minimal sensory return on right side, none on left. Pt has been anxious to get in to therapy and do everything he can to help return to function. Pt's , who attended his evaluation, notes that she has been doing a lot of PROM in his legs at night to keep everything moving. Pt can feel some stretching during PROM in his right leg. Pt has additionally already started occupational therapy, and has been practicing some seated stabilization. Pt transfers with a slide board, but notes it is difficult to do into his car, because he has to transfer upward at an incline. PT-OP-C Subjective Start: 03/08/22 17:00 Freq: Status: Active Protocol: Document 01/11/25 17:02 DCW (Rec: 01/11/25 17:44 DCW [id number]) OP-PT Subjective Patient Comments Patient Comments Pt continues to wait for authorization for aquatic therapy. PT-OP-G Mobility & Gait Start: 03/08/22 17:00 Freq: Status: Active Protocol: Document 10/20/24 15:20 DCW (Rec: 10/20/24 16:01 DCW [id number]) OP Mobility Evaluation Transfers Bed to Chair Transfers using UE, improved with side-side movement, Transfers requires minimal verbal cues for LE positioning Car Transfers uses slide board, stabilizes front to back and prevent slide down board Functional Movements Other Functional Pt performs sit->supine->prone->quadruped with SBA 95% Movements of the time, requires Min Ax1 05%, typically with positioning of knees or feet, or getting up into quad from prone Wheelchair Management Type of Wheelchair Manual w/c Assessment Details Unable to perform tilt back to get over curb. Able to clear 2 obstacle 90% of the time. PT-OP-H Neuro Start: 03/08/22 17:00 Freq: Status: Active Protocol: Document 10/20/24 15:20 DCW (Rec: 10/20/24 16:01 DCW [id number]) Sensation Evaluation Gross Sensation Gross Sensation Left LE Impaired,Right LE Impaired,Trunk Impaired Sensation Paresthesia,Numbness,Tingling,Pins & [place],Burning Description Dermatome L1,L2,L3,L4,L5,S1,S2,S3,S4-5 Impairments Location Details Right Leg Light Touch Impaired Sharp/Dull Impaired Deep Pressure Intact/Normal Hot/Cold Absent Protective Sensation Absent Proprioception ( Impaired Position) Kinesthesia ( Impaired Movement) Two-Point Impaired Discrimination Tactile Localization Impaired Stereognosis Impaired Left Leg Light Touch Absent Sharp/Dull Absent Deep Pressure Impaired Hot/Cold Impaired Protective Sensation Absent Proprioception ( Absent Position) Kinesthesia ( Impaired Movement) Two-Point Absent Discrimination Tactile Localization Absent Stereognosis Absent Comments Summary Comments B protective reflex vs sharp present Deep Tendon Reflex & Clonus Assessment Deep Tendon Reflex Right Achilles Deep Tendon Reflex 2+ Normal Right Patellar Deep Tendon Reflex 2+ Normal Left Achilles Deep Tendon Reflex 2+ Normal Left Patellar Deep Tendon Reflex 1+ Diminished Ankle Clonus Right Clonus Assessment Sustained Left Clonus Assessment Sustained Muscle Tone Tone Assessment Right Lower Extremity Flexor Tone Moderate Hypertonicity Description Extensor Tone Moderate Hypertonicity Description Left Lower Extremity Flexor Tone Moderate Hypertonicity Description Extensor Tone Moderate Hypertonicity Description PT-OP-J Posture/Palpation/Skin Start: 03/08/22 17:00 Freq: Status: Active Protocol: Document 10/20/24 15:20 DCW (Rec: 10/20/24 16:01 DC [id number]) Posture Evaluation Comments Posture Comments Sitting EOB with good core control and no instability, uses UEs in lap for support. Recovers from directional pushing. Improved ability to reach outside of base of support. PT-OP-M Strength Start: 08/21/22 15:38 Freq: Status: Active Protocol: Document 10/20/24 15:20 DCW (Rec: 10/20/24 16:01 [facility] [id number]) Shoulder Strength Shoulder Manual Muscle Testing Right Flexion 4+ Good+ Extension 4+ Good+ Abduction (C5) 4+ Good+ External Rotation 4 Good Internal Rotation 4+ Good+ Left Flexion 4+ Good+ Extension 4+ Good+ Abduction (C5) 4+ Good+ External Rotation 4 Good Internal Rotation 4+ Good+ Elbow/Forearm Strength Elbow and Forearm Manual Muscle Testing Right Flexion (C6) 4+ Good+ Extension (C7) 4+ Good+ Left Flexion (C6) 4+ Good+ Extension (C7) 4 Good Hip Strength Hip Manual Muscle Testing Right Flexion (L2) 1 Trace Extension (S1) 2- Poor- Adduction 2- Poor- Left Flexion (L2) 1 Trace Extension (S1) 2- Poor- Adduction 1 Trace Knee Strength Knee Manual Muscle Testing Right Flexion (S2) 2- Poor- Extension (L3) 1 Trace Left Flexion (S2) 2- Poor- Extension (L3) 1 Trace Ankle/Foot Strength Ankle and Foot Manual Muscle Testing Right Dorsiflexion (L4) 1 Trace Plantarflexion (S1) 2 Poor Left Plantarflexion (S1) 1 Trace PT-OP-Q Treatments Start: 03/08/22 17:00 Freq: Status: Active Protocol: Document 01/11/25 17:02 DCW (Rec: 01/11/25 17:44 DCW [id number]) Cardio Equipment Recumbent Elliptical (NuStep) Duration (Minutes) 10 Resistance 9 Seat Position 10 Other Arms lvl 9, strap above knees for LE alignment Gym Equipment Cable Column (Body Solid) Triceps Details Seated Triceps Press, cues for elbow ext Resistance 30# Reps/Time 2x10 cable row Details PT assist to maintain upright posture Resistance 30# Reps/Time 2x12 lateral pulldown Details Lat Pulldown Resistance 70# Reps/Time x13, x12, x10 PT-OP-T Assessment and Plan Start: 03/08/22 17:00 Freq: Status: Active Protocol: Document 01/11/25 17:02 DCW (Rec: 01/11/25 17:44 DCW [id number]) Physical Therapy Assessment Impairments Impairments Activity Tolerance,Balance,Coordination,Functional Activities,Functional Mobility,Gait,Integument, Sensation,Soft Tissue Mobility,Strength,Tone,Transfers Goals Four Impairment Bilateral triceps weakness (R 4-, L 3+) Town Manager Goal (LTG) Pt to demonstrate improved triceps strength to at least 4/5 bilaterally for elbow extension in order to improve transfer ability. LTG Duration 01/18/25 - Improving Three Impairment Pt does not have any motor function throughout bilateral LEs Short Term Goal (STG Pt to demonstrate 1/5 trace motor contraction in at ) least one quad in order to begin focus on LE mobility if neural functional return begins. STG Duration Met Town Manager Goal (LTG) Pt to demonstrate right quad strength to at least 2/5, demonstrating movement into ROM in an antigravity position LTG Duration 01/18/25 Two Impairment Pt struggles with lateral transfer/scooting along EOB Town Manager Goal (LTG) Pt to perform lateral scoot transfer using proper technique without any verbal cues 4x in a row. LTG Duration 01/18/25 One Impairment Pt does not have an appropriate home exercise program Short Term Goal (STG Pt to be independent and compliant with an appropriate ) HEP STG Duration 01/18/25 Assessment Summary Assessment felt good with UE strengthening today, doing better with transfers. Good tolerance to activity today. Continue work on transfers, strengthening, and stabilization. Physical Therapy Plan Frequency and Duration Frequency of 2x/Week Treatment Plan of Care Start 10/20/24 Date Plan of Care End 01/18/25 Date Therapeutic Interventions Therapeutic Aquatic Therapy,Balance Training,Coordination Training, Interventions Gait Training,Home Exercise Program,Manual Therapy, Neuromuscular Re-education,Orthotic/Prosthetic Management,Patient/Caregiver Education,Self-Care/Home Management,Sensory Integration,Soft Tissue Mobilization ,Therapeutic Activities,Therapeutic Exercises, Wheelchair Management Next Visit Focus/Plan Next Note Type Treatment Note Next Visit Plan Next: Seated core stabilization, Core progression in hook-lying or quadruped. Consider side planks and supine>side-lying bed mobility focus. Continue PT per POC: Continue L log roll, L SL> quadruped, Lateral transfers to elevated surfaces more trunk flexion/frequent scoots decreased assist, Wheelchair wheelies, curb management, POC: Continue UE and core strengthening, LE PROM and manual stretching. Transfers, mobility, LE ROM, pt will benefit from continued breakdown of transfers to improve efficiency and mechanics, as well as working on more seated balance EOB.
--- NOTE | 2025-01-13 15:10 | PT.OTN ---
Current Diagnoses Paraplegia, unspecified (01/13/25) Other specified personal risk factors, not elsewhere classified (01/13/25) Other specified postprocedural states (01/13/25) Physical Therapy Treatment Note PT-OP-A Visit Information Start: 03/08/22 17:00 Freq: Status: Active Protocol: Document 01/13/25 14:35 DCW (Rec: 01/13/25 15:07 DCW [id number]) Out-Patient Physical Therapy Visit Information Visit Information Visit Type Treatment Note Visit Start Time 14:35 Visit Stop Time 15:15 Visit Number [id number] Number of PLANT MAINTENANCE MECHANIC Visits 0 Progress Note Due 01/18/25 Evaluation Information Evaluation Date 03/08/22 PT-OP-B Current Condition Start: 03/08/22 17:00 Freq: Status: Active Protocol: Document 12/28/24 14:27 SAK (Rec: 12/28/24 15:29 SAK Laptop) Current Condition History of Current Condition Onset Date 12/16/21 Current Complaints Paraplegia History of Current Pt is a 71 year old male with a very unfortunate Condition medical history. Pt was hiking [place] on 12/16/21 with a friend, finished up, drive back to his friend's home to drop him off, and noticed his left leg was collapsing. By the time pt drove home, both legs were giving out and numb. Pt was suddenly paralized from the waist down, was taken to the ED, and was flown to [facility] on 12/17/21. The following day, he underwent a laminectomy to relieve pressure from the thoracic epidural hematoma which had developed following his hike, which was pressing on his spinal cord. Following surgery, pt was in recovery for a week and was then transfered to rehab for 20 days, when he was finally discharged home in a wheelchair on 01/19/22. Pt reports his surgeon informed him that it is a possibility that he gets some return of nerve function. Has experienced some changes in his right LE, but has no motor function at this time from ~T10 down. Minimal sensory return on right side, none on left. Pt has been anxious to get in to therapy and do everything he can to help return to function. Pt's , who attended his evaluation, notes that she has been doing a lot of PROM in his legs at night to keep everything moving. Pt can feel some stretching during PROM in his right leg. Pt has additionally already started occupational therapy, and has been practicing some seated stabilization. Pt transfers with a slide board, but notes it is difficult to do into his car, because he has to transfer upward at an incline. PT-OP-C Subjective Start: 03/08/22 17:00 Freq: Status: Active Protocol: Document 01/13/25 14:35 DCW (Rec: 01/13/25 15:07 DCW [id number]) OP-PT Subjective Patient Comments Patient Comments Pt feeling quite well today. PT-OP-G Mobility & Gait Start: 03/08/22 17:00 Freq: Status: Active Protocol: Document 10/20/24 15:20 DCW (Rec: 10/20/24 16:01 DCW [id number]) OP Mobility Evaluation Transfers Bed to Chair Transfers using UE, improved with side-side movement, Transfers requires minimal verbal cues for LE positioning Car Transfers uses slide board, stabilizes front to back and prevent slide down board Functional Movements Other Functional Pt performs sit->supine->prone->quadruped with SBA 95% Movements of the time, requires Min Ax1 05%, typically with positioning of knees or feet, or getting up into quad from prone Wheelchair Management Type of Wheelchair Manual w/c Assessment Details Unable to perform tilt back to get over curb. Able to clear 2 obstacle 90% of the time. PT-OP-H Neuro Start: 03/08/22 17:00 Freq: Status: Active Protocol: Document 10/20/24 15:20 DCW (Rec: 10/20/24 16:01 DCW [id number]) Sensation Evaluation Gross Sensation Gross Sensation Left LE Impaired,Right LE Impaired,Trunk Impaired Sensation Paresthesia,Numbness,Tingling,Pins & [place],Burning Description Dermatome L1,L2,L3,L4,L5,S1,S2,S3,S4-5 Impairments Location Details Right Leg Light Touch Impaired Sharp/Dull Impaired Deep Pressure Intact/Normal Hot/Cold Absent Protective Sensation Absent Proprioception ( Impaired Position) Kinesthesia ( Impaired Movement) Two-Point Impaired Discrimination Tactile Localization Impaired Stereognosis Impaired Left Leg Light Touch Absent Sharp/Dull Absent Deep Pressure Impaired Hot/Cold Impaired Protective Sensation Absent Proprioception ( Absent Position) Kinesthesia ( Impaired Movement) Two-Point Absent Discrimination Tactile Localization Absent Stereognosis Absent Comments Summary Comments B protective reflex vs sharp present Deep Tendon Reflex & Clonus Assessment Deep Tendon Reflex Right Achilles Deep Tendon Reflex 2+ Normal Right Patellar Deep Tendon Reflex 2+ Normal Left Achilles Deep Tendon Reflex 2+ Normal Left Patellar Deep Tendon Reflex 1+ Diminished Ankle Clonus Right Clonus Assessment Sustained Left Clonus Assessment Sustained Muscle Tone Tone Assessment Right Lower Extremity Flexor Tone Moderate Hypertonicity Description Extensor Tone Moderate Hypertonicity Description Left Lower Extremity Flexor Tone Moderate Hypertonicity Description Extensor Tone Moderate Hypertonicity Description PT-OP-J Posture/Palpation/Skin Start: 03/08/22 17:00 Freq: Status: Active Protocol: Document 10/20/24 15:20 DCW (Rec: 10/20/24 16:01 [facility] [id number]) Posture Evaluation Comments Posture Comments Sitting EOB with good core control and no instability, uses UEs in lap for support. Recovers from directional pushing. Improved ability to reach outside of base of support. PT-OP-M Strength Start: 08/21/22 15:38 Freq: Status: Active Protocol: Document 10/20/24 15:20 DCW (Rec: 10/20/24 16:01 [facility] [id number]) Shoulder Strength Shoulder Manual Muscle Testing Right Flexion 4+ Good+ Extension 4+ Good+ Abduction (C5) 4+ Good+ External Rotation 4 Good Internal Rotation 4+ Good+ Left Flexion 4+ Good+ Extension 4+ Good+ Abduction (C5) 4+ Good+ External Rotation 4 Good Internal Rotation 4+ Good+ Elbow/Forearm Strength Elbow and Forearm Manual Muscle Testing Right Flexion (C6) 4+ Good+ Extension (C7) 4+ Good+ Left Flexion (C6) 4+ Good+ Extension (C7) 4 Good Hip Strength Hip Manual Muscle Testing Right Flexion (L2) 1 Trace Extension (S1) 2- Poor- Adduction 2- Poor- Left Flexion (L2) 1 Trace Extension (S1) 2- Poor- Adduction 1 Trace Knee Strength Knee Manual Muscle Testing Right Flexion (S2) 2- Poor- Extension (L3) 1 Trace Left Flexion (S2) 2- Poor- Extension (L3) 1 Trace Ankle/Foot Strength Ankle and Foot Manual Muscle Testing Right Dorsiflexion (L4) 1 Trace Plantarflexion (S1) 2 Poor Left Plantarflexion (S1) 1 Trace PT-OP-Q Treatments Start: 03/08/22 17:00 Freq: Status: Active Protocol: Document 01/13/25 14:35 DCW (Rec: 01/13/25 15:07 DCW [id number]) Cardio Equipment Recumbent Elliptical (NuStep) Duration (Minutes) 10 Resistance 9 Seat Position 10 Other Arms lvl 9, strap above knees for LE alignment Therapeutic Exercises Prone Exercises prone over 4 pillows Prone Exercise Name supported trunk extension, hip flexor stretch Equipment Used over 4 pillows, towel roll under forehead Other Exercises short kneel Other Exercise Name short kneeling /c self thigh support Thread the needle Other Exercise Name Thread the needle on forearms/knees Side bilateral Reps/Minutes x5 Push-ups Other Exercise Name Push-up in quadruped, hands under shoulders Reps/Minutes x25, x15, x15, x15 Comments pt self heavy support BUEs PT-OP-T Assessment and Plan Start: 03/08/22 17:00 Freq: Status: Active Protocol: Document 01/13/25 14:35 DCW (Rec: 01/13/25 15:07 DCW [id number]) Physical Therapy Assessment Impairments Impairments Activity Tolerance,Balance,Coordination,Functional Activities,Functional Mobility,Gait,Integument, Sensation,Soft Tissue Mobility,Strength,Tone,Transfers Goals Four Impairment Bilateral triceps weakness (R 4-, L 3+) Press Offbearer Goal (LTG) Pt to demonstrate improved triceps strength to at least 4/5 bilaterally for elbow extension in order to improve transfer ability. LTG Duration 01/18/25 - Improving Three Impairment Pt does not have any motor function throughout bilateral LEs Short Term Goal (STG Pt to demonstrate 1/5 trace motor contraction in at ) least one quad in order to begin focus on LE mobility if neural functional return begins. STG Duration Met Press Offbearer Goal (LTG) Pt to demonstrate right quad strength to at least 2/5, demonstrating movement into ROM in an antigravity position LTG Duration 01/18/25 Two Impairment Pt struggles with lateral transfer/scooting along EOB Senior Living Goal (LTG) Pt to perform lateral scoot transfer using proper technique without any verbal cues 4x in a row. LTG Duration 01/18/25 One Impairment Pt does not have an appropriate home exercise program Short Term Goal (STG Pt to be independent and compliant with an appropriate ) HEP STG Duration 01/18/25 Assessment Summary Assessment Pt feeling comfortable with quadruped activities, hoping to get a mat table for home use. Looking forward to upcoming aqua therapy. Will discharge following next visit. Physical Therapy Plan Frequency and Duration Frequency of 2x/Week Treatment Plan of Care Start 10/20/24 Date Plan of Care End 01/18/25 Date Therapeutic Interventions Therapeutic Aquatic Therapy,Balance Training,Coordination Training, Interventions Gait Training,Home Exercise Program,Manual Therapy, Neuromuscular Re-education,Orthotic/Prosthetic Management,Patient/Caregiver Education,Self-Care/Home Management,Sensory Integration,Soft Tissue Mobilization ,Therapeutic Activities,Therapeutic Exercises, Wheelchair Management Next Visit Focus/Plan Next Note Type Discharge Summary
--- NOTE | 2025-01-17 15:17 | PT.OTN ---
Current Diagnoses Paraplegia, unspecified (01/17/25) Other specified personal risk factors, not elsewhere classified (01/17/25) Other specified postprocedural states (01/17/25) Physical Therapy Treatment Note PT-OP-A Visit Information Start: 03/08/22 17:00 Freq: Status: Active Protocol: Document 01/17/25 14:32 DCW (Rec: 01/17/25 15:16 DCW [id number]) Out-Patient Physical Therapy Visit Information Visit Information Visit Type Discharge Summary Visit Start Time 14:32 Visit Stop Time 15:15 Visit Number [id number] Number of TUMBLERS SUPERVISOR Visits 0 Progress Note Due 01/18/25 Evaluation Information Evaluation Date 03/08/22 PT-OP-B Current Condition Start: 03/08/22 17:00 Freq: Status: Active Protocol: Document 12/28/24 14:27 SAK (Rec: 12/28/24 15:29 SAK Laptop) Current Condition History of Current Condition Onset Date 12/16/21 Current Complaints Paraplegia History of Current Pt is a 71 year old male with a very unfortunate Condition medical history. Pt was hiking [place] on 12/16/21 with a friend, finished up, drive back to his friend's home to drop him off, and noticed his left leg was collapsing. By the time pt drove home, both legs were giving out and numb. Pt was suddenly paralized from the waist down, was taken to the ED, and was flown to [facility] on 12/17/21. The following day, he underwent a laminectomy to relieve pressure from the thoracic epidural hematoma which had developed following his hike, which was pressing on his spinal cord. Following surgery, pt was in recovery for a week and was then transfered to rehab for 20 days, when he was finally discharged home in a wheelchair on 01/19/22. Pt reports his surgeon informed him that it is a possibility that he gets some return of nerve function. Has experienced some changes in his right LE, but has no motor function at this time from ~T10 down. Minimal sensory return on right side, none on left. Pt has been anxious to get in to therapy and do everything he can to help return to function. Pt's , who attended his evaluation, notes that she has been doing a lot of PROM in his legs at night to keep everything moving. Pt can feel some stretching during PROM in his right leg. Pt has additionally already started occupational therapy, and has been practicing some seated stabilization. Pt transfers with a slide board, but notes it is difficult to do into his car, because he has to transfer upward at an incline. PT-OP-C Subjective Start: 03/08/22 17:00 Freq: Status: Active Protocol: Document 01/17/25 14:32 DCW (Rec: 01/17/25 15:16 DCW [id number]) OP-PT Subjective Patient Comments Patient Comments Notes he would like to look on [employer] for a large mat table for home. Hoping to purchase a three-month pass for the exercise gym at the [facility]. PT-OP-G Mobility & Gait Start: 03/08/22 17:00 Freq: Status: Active Protocol: Document 10/20/24 15:20 DCW (Rec: 10/20/24 16:01 DCW [id number]) OP Mobility Evaluation Transfers Bed to Chair Transfers using UE, improved with side-side movement, Transfers requires minimal verbal cues for LE positioning Car Transfers uses slide board, stabilizes front to back and prevent slide down board Functional Movements Other Functional Pt performs sit->supine->prone->quadruped with SBA 95% Movements of the time, requires Min Ax1 05%, typically with positioning of knees or feet, or getting up into quad from prone Wheelchair Management Type of Wheelchair Manual w/c Assessment Details Unable to perform tilt back to get over curb. Able to clear 2 obstacle 90% of the time. PT-OP-H Neuro Start: 03/08/22 17:00 Freq: Status: Active Protocol: Document 10/20/24 15:20 DCW (Rec: 10/20/24 16:01 DCW [id number]) Sensation Evaluation Gross Sensation Gross Sensation Left LE Impaired,Right LE Impaired,Trunk Impaired Sensation Paresthesia,Numbness,Tingling,Pins & [place],Burning Description Dermatome L1,L2,L3,L4,L5,S1,S2,S3,S4-5 Impairments Location Details Right Leg Light Touch Impaired Sharp/Dull Impaired Deep Pressure Intact/Normal Hot/Cold Absent Protective Sensation Absent Proprioception ( Impaired Position) Kinesthesia ( Impaired Movement) Two-Point Impaired Discrimination Tactile Localization Impaired Stereognosis Impaired Left Leg Light Touch Absent Sharp/Dull Absent Deep Pressure Impaired Hot/Cold Impaired Protective Sensation Absent Proprioception ( Absent Position) Kinesthesia ( Impaired Movement) Two-Point Absent Discrimination Tactile Localization Absent Stereognosis Absent Comments Summary Comments B protective reflex vs sharp present Deep Tendon Reflex & Clonus Assessment Deep Tendon Reflex Right Achilles Deep Tendon Reflex 2+ Normal Right Patellar Deep Tendon Reflex 2+ Normal Left Achilles Deep Tendon Reflex 2+ Normal Left Patellar Deep Tendon Reflex 1+ Diminished Ankle Clonus Right Clonus Assessment Sustained Left Clonus Assessment Sustained Muscle Tone Tone Assessment Right Lower Extremity Flexor Tone Moderate Hypertonicity Description Extensor Tone Moderate Hypertonicity Description Left Lower Extremity Flexor Tone Moderate Hypertonicity Description Extensor Tone Moderate Hypertonicity Description PT-OP-J Posture/Palpation/Skin Start: 03/08/22 17:00 Freq: Status: Active Protocol: Document 10/20/24 15:20 DCW (Rec: 10/20/24 16:01 DCW [id number]) Posture Evaluation Comments Posture Comments Sitting EOB with good core control and no instability, uses UEs in lap for support. Recovers from directional pushing. Improved ability to reach outside of base of support. PT-OP-M Strength Start: 08/21/22 15:38 Freq: Status: Active Protocol: Document 10/20/24 15:20 DCW (Rec: 10/20/24 16:01 DCW [id number]) Shoulder Strength Shoulder Manual Muscle Testing Right Flexion 4+ Good+ Extension 4+ Good+ Abduction (C5) 4+ Good+ External Rotation 4 Good Internal Rotation 4+ Good+ Left Flexion 4+ Good+ Extension 4+ Good+ Abduction (C5) 4+ Good+ External Rotation 4 Good Internal Rotation 4+ Good+ Elbow/Forearm Strength Elbow and Forearm Manual Muscle Testing Right Flexion (C6) 4+ Good+ Extension (C7) 4+ Good+ Left Flexion (C6) 4+ Good+ Extension (C7) 4 Good Hip Strength Hip Manual Muscle Testing Right Flexion (L2) 1 Trace Extension (S1) 2- Poor- Adduction 2- Poor- Left Flexion (L2) 1 Trace Extension (S1) 2- Poor- Adduction 1 Trace Knee Strength Knee Manual Muscle Testing Right Flexion (S2) 2- Poor- Extension (L3) 1 Trace Left Flexion (S2) 2- Poor- Extension (L3) 1 Trace Ankle/Foot Strength Ankle and Foot Manual Muscle Testing Right Dorsiflexion (L4) 1 Trace Plantarflexion (S1) 2 Poor Left Plantarflexion (S1) 1 Trace PT-OP-Q Treatments Start: 03/08/22 17:00 Freq: Status: Active Protocol: Document 01/17/25 14:32 DCW (Rec: 01/17/25 15:16 DCW [id number]) Cardio Equipment Recumbent Elliptical (NuStep) Duration (Minutes) 10 Resistance 9 Seat Position 10 Other Arms lvl 9, strap above knees for LE alignment Gym Equipment Cable Column (Body Solid) Bench Press Details Seated bench press - cables under axilla bilaterally, towel on handle Resistance 30# Reps/Time 3x10 Triceps Details Seated Triceps Press, cues for elbow ext Resistance 30# Reps/Time 3x10 cable row Details PT assist to maintain upright posture Resistance 30# Reps/Time 3x12 lateral pulldown Details Lat Pulldown Resistance 70# Reps/Time x15, 2x10 PT-OP-T Assessment and Plan Start: 03/08/22 17:00 Freq: Status: Active Protocol: Document 01/17/25 14:32 DCW (Rec: 01/17/25 15:16 DCW [id number]) Physical Therapy Assessment Impairments Impairments Activity Tolerance,Balance,Coordination,Functional Activities,Functional Mobility,Gait,Integument, Sensation,Soft Tissue Mobility,Strength,Tone,Transfers Goals Four Impairment Bilateral triceps weakness (R 4-, L 3+) Penitentiary Goal (LTG) Pt to demonstrate improved triceps strength to at least 4/5 bilaterally for elbow extension in order to improve transfer ability. LTG Duration 01/18/25 - Improving Three Impairment Pt does not have any motor function throughout bilateral LEs Short Term Goal (STG Pt to demonstrate 1/5 trace motor contraction in at ) least one quad in order to begin focus on LE mobility if neural functional return begins. STG Duration Met Penitentiary Goal (LTG) Pt to demonstrate right quad strength to at least 2/5, demonstrating movement into ROM in an antigravity position LTG Duration 01/18/25 Two Impairment Pt struggles with lateral transfer/scooting along EOB Mail Car[employer] Supervisor Goal (LTG) Pt to perform lateral scoot transfer using proper technique without any verbal cues 4x in a row. LTG Duration 01/18/25 One Impairment Pt does not have an appropriate home exercise program Short Term Goal (STG Pt to be independent and compliant with an appropriate ) HEP STG Duration 01/18/25 Assessment Summary Assessment Pt discharging from skilled therapy at this time. Pt has largely plateaued, no longer seeing gains with motor function, sensation, or functional mobility. Overall, demonstrates good overall gains with transfers , core stability, UE strengthening, w/c mobility, and HEP since initial evaluation. Pt hoping to return in the future if he sees changes in function. Physical Therapy Plan Frequency and Duration Frequency of 2x/Week Treatment Plan of Care Start 10/20/24 Date Plan of Care End 01/18/25 Date Therapeutic Interventions Therapeutic Aquatic Therapy,Balance Training,Coordination Training, Interventions Gait Training,Home Exercise Program,Manual Therapy, Neuromuscular Re-education,Orthotic/Prosthetic Management,Patient/Caregiver Education,Self-Care/Home Management,Sensory Integration,Soft Tissue Mobilization ,Therapeutic Activities,Therapeutic Exercises, Wheelchair Management Discharge Physical Therapy Discharge Reasons Plateau in Progress Next Visit Focus/Plan Next Note Type Discharge Summary
== END 2025-01-20 13:26 | disposition home or self-care (01) ==
LOC: PHYS 14:30
PROVIDERS: Family Provider Family Medicine; PCP Family Medicine; Referring Provider Physician Assistant; Visit Provider Physician Assistant
DX: G82.20 Paraplegia, unspecified (principal); Z98.890 Other specified postprocedural states; Z91.89 Other specified personal risk factors, not elsewhere classified
CPT/HCPCS: 97110; 97112; 97140; 97163; 97530; 97535; 97542